=== PATIENT | male | born 1975 | race Caucasian/White ===

== ENCOUNTER 2018-11-15 08:52 | Inpatient (IN) | payer MEDICARE, MEDICAID, SELFPAY ==
[2018-11-15] VITALS (102 sets, daily range): BP systolic 101–165; BP diastolic 49–119; PULSE 54–148; RESP 4–38; TEMP 36.7–37.6; O2SAT 86–96
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
[2018-11-15] MEDS: Normal Saline 1,000 ML 1000 ML IV ×2 (09:35→12:05)
[2018-11-15] MEDS: Albuterol/Ipratropium 3 ML UPD VIAL (09:35)
[2018-11-15] MEDS: Normal Saline Flush 10 ML SYR IVP ×2 (09:35→17:36)
[2018-11-15] MEDS: LORazepam 2 MG/ML VIAL 0.5 MG IVP ×3 (09:41→12:57)
--- NOTE | 2018-11-15 09:56 | DI.RAD_ITS ---
SYMPTOM/DIAGNOSIS: SHAKING, SOB, R/O ACUTE DISEASE AP UPRIGHT CHEST: There are some small basilar densities which would be consistent with scarring or atelectasis. There is an ill-defined density projected over the left lower lobe which could represent a region of scarring. The possibility of an acute pneumonitis not entirely excluded. Note is made of small calcifications in the left lung consistent with old healed granulomatous disease. There is no evidence of a pleural effusion. The heart is top limits of normal in size. SUMMARY: The possibility of a left lower lobe pneumonitis is raised.
[2018-11-15 09:57] LABS: Abs Immature Grans 0.02 k/cumm (0.0-0.09); Absolute Basophil Count 0.06 k/cumm (0.0-0.2); Absolute Eosinophil Count 0.32 k/cumm (0.0-0.7); Absolute Lymphocyte Count 2.72 k/cumm (1.2-3.4); Absolute Neutrophil Count 4.93 k/cumm (1.2-6.7); Basophils % 0.6; Eosinophils % 3.5; HCT 56.8 % (40.0-50.0); HGB 18.7 g/dL (13.5-17.5); Immature Grans % 0.2; Lymphocytes % 29.4; Mean Corp. HGB Concentration 32.9 g/dL (32.0-36.0); Mean Corpuscular Hemoglobin 32.2 pg (27.0-33.0); Mean Corpuscular Volume 97.8 fL (80-95); Mean Platelet Volume 10.9 fL (8.0-11.0); Neutrophils % 53.3; Platelet Count 194 x1000/uL (130-400); RBC 5.81 m/cumm (4.50-6.00); RBC Distribution Width 13.7 % (11.8-14.1); White Blood Cell Count 9.25 k/cumm (4.4-10.8)
[2018-11-15 10:05] LABS: ALT 89 U/L (12-78); AST 40 U/L (15-37); Albumin 3.5 g/dL (3.4-5.0); Alkaline Phosphatase 45 U/L (46-116); Anion Gap 2.6 mmol/L (3-11); BUN 17 mg/dL (7-18); Bilirubin, Total 0.6 mg/dL (0.2-1.0); CO2 35.4 mmol/L (21.0-32.0); CREATININE 0.75 mg/dL (0.70-1.30); Chloride 100 mmol/L (98-107); Glucose 79 mg/dL (70-100); Lipase 109 U/L (73-393); Potassium 4.7 mmol/L (3.5-5.1); Sodium 138 mmol/L (136-145); Total Protein 7.3 g/dL (6.4-8.2)
[2018-11-15 10:11] LABS: Troponin I < 0.05 ng/mL (0.00-0.06)
[2018-11-15 10:13] LABS: ETHANOL BLOOD < 3.0 mg/dL (<3)
[2018-11-15] MEDS: Lisinopril 20 MG TAB PO (11:09)
[2018-11-15] MEDS: Albuterol 2.5 MG/3 ML INH SOLN VIAL (11:09)
[2018-11-15] MEDS: Pregabalin 100 MG CAP 200 MG PO (11:10)
[2018-11-15] MEDS: DULoxetine 30 MG CAP PO (11:10)
[2018-11-15] MEDS: ARIPiprazole 5 MG TAB 2.5 MG PO (11:11)
[2018-11-15] MEDS: LORazepam 2 MG/ML VIAL 1 MG IVP ×2 (12:10→13:35)
[2018-11-15 13:25] LABS: Troponin I < 0.05 ng/mL (0.00-0.06)
[2018-11-15 13:36] LABS: Procalcitonin < 0.1 ng/mL
[2018-11-15] MEDS: AZTREONAM 2,000 MG in Normal Saline 100 ML 200 MG IVPB (14:20)
[2018-11-15] MEDS: Prochlorperazine 10 MG/2 ML VIAL IVP (15:08)
--- NOTE | 2018-11-15 15:11 | HPE_ITS ---
Date of service: 11/15/18 Time of Service: 15:11 Assessment and Plan (1) Alcohol withdrawal: Current visit: Yes Status: Acute with history of alcohol withdrawal seizures. Admit to ICU with CIWA, prn PO/IV ativan and scheduled librium. Provide vitamins. (2) SVT (supraventricular tachycardia): Current visit: Yes Status: Chronic Likely triggered by alcohol withdrawal and/or pulmonary disease. I changed prn albuterol to xopenex. Monitor in ICU. (3) COPD with acute exacerbation: Current visit: Yes Status: Acute Patient recently required intubation at [facility]. He can protect airway at this time. Procalcitonin negaive - empiric antibiotics are being discontinued. The LLL infiltrate is likely a residual finding from his recent HCAP. Provide high dose IV steroids, nebs. Xopenex written in place of albuterol. (4) Chronic respiratory failure with hypoxia: Current visit: Yes Status: Acute I think that the patient is likely at his baseline O2 requirement - O2 is being weaned. (5) Polycythemia: Current visit: Yes Status: Chronic Chronic, having to do with smoking and chronic pulmonary disease. At baseline. Previously evaluated by Hem onc - EDGARDO mutation negative. Follow up as outpatient. (6) HCAP (healthcare-associated pneumonia): Current visit: Yes Status: Ruled-out Procalcitonin negative. Stop antibiotics. (7) Opiate dependence: Current visit: Yes Status: Acute In light of patient's mental status and need to administer benzodiazepines for alcohol withdrawal, will hold methadone. If the patient's mental status permits resumption tomorrow, we will do so. It is felt by myself and the ICU staff that the patient is likely getting excessive doses of methadone, though our judgement could be clouded by the fact that he is also receiving ativan. (8) Discharge planning issues: Current visit: Yes Status: Acute Full code. Has previously required intubation. Interested in inpatient alcohol rehab, which is where he was headed this morning. (9) DVT prophylaxis: Current visit: Yes Status: Acute lovenox History of Present Illness Chief Complaint: I'm withdrawing from alcohol Narrative: 43 year old male with PMHx of alcohol abuse with history of alcohol withdrawal seizures, oxygen dependent COPD (2L), opiate dependence on methadone therapy through [facility], who was brought to [facility] ED today for medical clearance prior to going to [place] for rehab. His last drink was last night, and he normally drinks 1/2 of a gallon of vodka daily. He was found to be hypoxic to 86% on room air, requiring 4L of NC to saturate on mid 90's, per ED records. He does endorse shortness of breath, cough productive of white sputum, wheezing. He was just discharged from [facility] on 11/12/18 after an admission for COPD exacerbation due to interstitial pneumonia, involving intubation. (This is when he qualified for home oxygen.) In the ED, the workup was consistent with recurrent exacerbation of COPD and HCAP. He was initiated on vancomycin/aztr eonam/flagyl as well as nebulizers and steroids. He did require IV ativan for alcohol withdrawal in ED. He was also noted to briefly go into SVT, which was self-limited. We were asked to admit the patient to [facility] ICU for futher care. Review of Systems Review of Systems 12 systems reviewed. Pertinent positives and negatives are as per HPI [facility] Medical History (Updated 11/15/18 @ 18:50 by Ofe Quan MD) Alcohol abuse (Chronic) Alcohol withdrawal seizure (Acute) Asthma (Chronic) Chronic respiratory failure with hypoxia (Acute) COPD (chronic obstructive pulmonary disease) (Chronic) HCAP (healthcare-associated pneumonia) (Ruled-out) Hepatitis C (Chronic) HTN (hypertension) (Chronic) Narcotic abuse (Chronic) Opiate dependence (Acute) Polycythemia (Chronic) Surgical History History of hand surgery (Acute) History of tonsillectomy (Chronic) Hx of BKA (Acute) S/P ORIF (open reduction internal fixation) fracture (Acute) Family History (Updated 11/15/18 @ 18:34 by Ofe Quan MD) Maternal Uncle Hypertension Stroke Diabetes Mother Brain aneurysm Social History Smoking/Tobacco Use Status: Current every day Alcohol Intake: current Alcohol Intake frequency: 3 or more drinks per day Alcohol type: hard liquor Details: drinks at least 1/5 of vodka daily Drug use: Never Substance use type: former substance user and painkillers Details: currently on methadone for past 2.5 years Meds Home Medications Medication Instructions Recorded Confirmed Type ipratropium-albuterol [Combivent 2 puff INHALATION QID 03/24/14 11/15/18 History Respimat Inhaler] lisinopril 20 mg PO DAILY 03/24/14 11/15/18 History pregabalin [Lyrica] 200 mg PO TID 03/24/14 11/15/18 History albuterol sulfate 2 puff INHALATION PRN PRN 05/07/14 11/15/18 History levalbuterol tartrate [Xopenex Hfa] 2 puff INHALATION PRN PRN 07/24/14 11/15/18 History acetaminophen 325 mg PO Q4H PRN PRN 11/15/18 11/15/18 History aripiprazole [Abilify] 2.5 mg PO DAILY 11/15/18 11/15/18 History bisacodyl 10 mg SC DAILY PRN 11/15/18 11/15/18 History buspirone 10 mg PO BID 11/15/18 11/15/18 History duloxetine [Cymbalta] 30 mg PO DAILY 11/15/18 11/15/18 History folic acid 1 mg PO DAILY 11/15/18 11/15/18 History ibuprofen 400 mg PO TID PRN 11/15/18 11/15/18 History ipratropium-albuterol 3 ml INHALATION QID 11/15/18 11/15/18 History lidocaine 1 applic TOPICAL TID 11/15/18 11/15/18 History lorazepam 0.5 mg PO DAILY PRN 11/15/18 11/15/18 History methadone 120 mg PO DAILY 11/15/18 11/15/18 History multivitamin 1 tab PO DAILY 11/15/18 11/15/18 History nicotine 14 mg TRANSDERMAL DIRECTED 11/15/18 11/15/18 History pyridoxine (vitamin B6) [Vitamin 50 mg PO DAILY 11/15/18 11/15/18 History B-6] Allergies Allergy/AdvReac Type Severity Reaction Status Date / Time Penicillins Allergy Severe Anaphylaxsi Unverified 11/15/18 09:42 s Exam Narrative Exam Narrative: General: Middle-aged male who appears older than his stated age, tremulous, sits up in on the ER stretcher with both eyes half clos ed, slurring speech, Neurological: somnolent but arousable, A&Ox3, tremulous Psychiatric: difficult to establish given mental status; under influence Skin: several areas of what looks like chronic erythema RLE stump; otherwise, he appears to have papular rash on his bilateral shoulders HEENT: Atraumatic, normocephalic, eyes are half closed, but he is able to open them fully on command, EOMI, dry MM, no submandibular or cervical lymphadenopathy; no goiter or JVD Cardiovascular: RRR, tachycardic Lungs: wheezing on expiration B Gastrointestinal: abdomen is soft, nontender, nondistended Extremities: s/p R BKA; stump well healed, tremulous; LLE with trace pedal pulse, no edema. Results Imaging Additional studies: CXR: The possibility of a left lower lobe pneumonitis is raised. EK:55 HR 144, SVT, no acute ischemia EKG 11: 40 HR 89, NSR, no acute ischemia Tele strip: SVT, HR 151 Labs : 11/15/18 09:40 11/15/18 09:40 Laboratory Results - last 24 hr 11/15/18 11/15/18 11/15/18 09:40 09:40 09:40 WBC 9.25 RBC 5.81 Hgb 18.7 H Hct 56.8 H MCV 97.8 H MCH 32.2 MCHC 32.9 RDW 13.7 Plt Count 194 MPV 10.9 Immature Gran % 0.2 Neutrophils % 53.3 Lymphocytes % 29.4 Monocytes % 13.0 Eosinophils % 3.5 Basophils % 0.6 Absolute Neutrophils 4.93 Absolute Lymphocytes 2.72 Absolute Monocytes 1.20 H Absolute Eosinophils 0.32 Absolute Basophils 0.06 Sodium 138 Potassium 4.7 Chloride 100 Carbon Dioxide 35.4 H Anion Gap 2.6 L BUN 17 Creatinine 0.75 Estimated GFR/1.73 m2 >= 60.00 Glucose 79 Lactate Calcium 9.0 Magnesium 2.0 Total Bilirubin 0.6 AST 40 H ALT 89 H Alkaline Phosphatase 45 L Troponin I < 0.05 Total Protein 7.3 Albumin 3.5 Lipase 109 Procalcitonin Ethyl Alcohol < 3.0 11/15/18 11/15/18 11/15/18 09:40 12:00 13:12 WBC RBC Hgb Hct MCV MCH MCHC RDW Plt Count MPV Immature Gran % Neutrophils % Lymphocytes % Monocytes % Eosinophils % Basophils % Absolute Neutrophils Absolute Lymphocytes Absolute Monocytes Absolute Eosinophils Absolute Basophils Sodium Potassium Chloride Carbon Dioxide Anion Gap BUN Creatinine Estimated GFR/1.73 m2 Glucose Lactate 1.0 Calcium Magnesium Total Bilirubin AST ALT Alkaline Phosphatase Troponin I < 0.05 Total Protein Albumin Lipase Procalcitonin < 0.1 Ethyl Alcohol Last Vital Signs Temp 37.3 C 11/15/18 08:55 Pulse 86 11/15/18 11:46 Resp 9 L 11/15/18 13:20 BP 122/57 L 11/15/18 11:46 Pulse Ox 94 L 11/15/18 12:50
[2018-11-15] MEDS: Enoxaparin 40 MG/0.4 ML SYR SC (16:52)
[2018-11-15] MEDS: chlordiazePOXIDE 25 MG CAP PO (16:53)
[2018-11-15] MEDS: methylPREDNISolone SUCC 125 MG VIAL 80 MG IVP (17:36)
[2018-11-15] MEDS: THIAMINE 100 MG in Normal Saline 100 ML 200 MG IVPB (17:41)
[2018-11-15] MEDS: metroNIDAZOLE 500 MG/100 ML BAG 100 MG IVPB (17:41)
[2018-11-15] MEDS: Normal Saline 1,000 ML 150 ML IV (17:41)
[2018-11-15] MEDS: Ibuprofen 400 MG TAB PO (19:30)
[2018-11-15] MEDS: Nicotine 21 MG/24 HR PATCH TD (19:31)
[2018-11-15] MEDS: guaiFENesin 600 MG TABCR PO (19:31)
[2018-11-15] MEDS: Albuterol/Ipratropium 3 ML UPD VIAL UPD (19:35)
[2018-11-15] MEDS: LORazepam 1 MG TAB PO/SL ×2 (19:58→22:40)
[2018-11-15] MEDS: busPIRone 5 MG TAB 10 MG PO (22:15)
[2018-11-15] MEDS: Budesonide/Formoterol 160/4.5 6 GM 60 PUFF INH IH (22:15)
[2018-11-16] VITALS (93 sets, daily range): BP systolic 86–167; BP diastolic 45–118; PULSE 51–109; RESP 2–27; TEMP 36.5–37.6; O2SAT 89–97
[2018-11-16] MEDS: Normal Saline 1,000 ML 150 ML IV ×3 (00:57→16:19)
[2018-11-16] MEDS: chlordiazePOXIDE 25 MG CAP PO ×3 (00:57→10:45)
[2018-11-16] MEDS: Albuterol/Ipratropium 3 ML UPD VIAL UPD (01:04)
[2018-11-16] MEDS: Ibuprofen 400 MG TAB PO (01:46)
[2018-11-16] MEDS: LORazepam 1 MG TAB PO/SL (04:16)
[2018-11-16] MEDS: methylPREDNISolone SUCC 125 MG VIAL 80 MG IVP (04:18)
--- NOTE | 2018-11-16 04:38 | NUR.NOTE ---
pt awakened, pulled out one IV, took off monitor and gown. washed up completely whle OOB. Voided 800 cc clear dark neil urine. Fluids switched to other right arm IV. Given 2 mg ativan po per CIWA scale. Ate more pudding and eugene crackers. more calm now.Nursing Note:
[2018-11-16 07:38] LABS: Abs Immature Grans 0.01 k/cumm (0.0-0.09); Absolute Basophil Count 0.01 k/cumm (0.0-0.2); Absolute Eosinophil Count 0.01 k/cumm (0.0-0.7); Absolute Lymphocyte Count 0.48 k/cumm (1.2-3.4); Absolute Monocyte Count 0.27 k/cumm (0.11-0.7); Absolute Neutrophil Count 4.38 k/cumm (1.2-6.7); Basophils % 0.2; Eosinophils % 0.2; HCT 53.7 % (40.0-50.0); HGB 17.8 g/dL (13.5-17.5); Immature Grans % 0.2; Lymphocytes % 9.3; Mean Corp. HGB Concentration 33.1 g/dL (32.0-36.0); Mean Corpuscular Volume 96.6 fL (80-95); Mean Platelet Volume 11.4 fL (8.0-11.0); Monocytes % 5.2; Neutrophils % 84.9; Platelet Count 181 x1000/uL (130-400); RBC 5.56 m/cumm (4.50-6.00); RBC Distribution Width 13.2 % (11.8-14.1); White Blood Cell Count 5.16 k/cumm (4.4-10.8)
[2018-11-16 07:55] LABS: Anion Gap 10.1 mmol/L (3-11); BUN 12 mg/dL (7-18); CO2 27.9 mmol/L (21.0-32.0); CREATININE 0.53 mg/dL (0.70-1.30); Calcium 8.6 mg/dL (8.5-10.1); Chloride 104 mmol/L (98-107); Glucose 151 mg/dL (70-100); Magnesium 2.1 mg/dL (1.8-2.4); Potassium 4.6 mmol/L (3.5-5.1); Sodium 142 mmol/L (136-145)
[2018-11-16] MEDS: LORazepam 2 MG/ML VIAL IVP ×5 (07:55→13:37)
[2018-11-16] MEDS: Budesonide/Formoterol 160/4.5 6 GM 60 PUFF INH IH (07:57)
--- NOTE | 2018-11-16 07:57 | PDOC.CMIN ---
- If Service Date Differs Date of service: 11/16/18 Time of Service: 07:58 Care Management Initial Assess REASON FOR HOSPITALIZATION:: Alcohol withdrawal PAST MEDICAL HISTORY/PAST SURGICAL HISTORY:: Medical History: Alcohol abuse (Chronic). Alcohol withdrawal seizure (Acute). Asthma (Chronic). Chronic respiratory failure with hypoxia (Acute). COPD (chronic obstructive pulmonary disease) (Chronic). HCAP (healthcare-associated pneumonia) (Ruled-out). Hepatitis C (Chronic). HTN (hypertension) (Chronic). Narcotic abuse (Chronic). Opiate dependence (Acute). Polycythemia (Chronic). Surgical History . History of hand surgery (Acute). History of tonsillectomy (Chronic). Hx of BKA (Acute). S/P ORIF (open reduction internal fixation) fracture (Acute) PREVIOUS FUNCTIONAL STATUS/SOCIAL/FAMILY SUPPORTS:: Edd states he lives in an apartment with 2 friends in [facility], although information from his medical record lists an address in [place]. He is currently unemployed. Edd is unmarried. He has one child, a daughter named Tita, who is 21 years old. Edd is independent with ADLs. CURRENT FUNCTIONAL STATUS:: Edd was lying in bed during CM visit. He did not maintain eye contact and was evasive in his responses. He states that he is going to stay with his sister in [place] when he is discharged. ADVANCE DIRECTIVES:: none on file Has patient been provided with information about the portal?: No Did the patient sign up for the portal?: No CODE STATUS:: Full Code INSURANCE COVERAGE / FINANCIAL ISSUES:: Medicare. Medicaid CURRENT HOME/COMMUNITY SERVICES/EQUIPMENT:: none PRIMARY CARE PHYSICIAN:: Marge Leo POTENTIAL DISCHARGE NEEDS:: Follow up with PCP and discharge plan of care PATIENT/FAMILY EDUCATION NEEDS:: Discharge plan, limitations, follow up plan, Ask Me Three. ANTICIPATED BARRIERS TO DISCHARGE:: none TRANSPORTATION:: via private vehicle with friends when ready PLAN:: Edd is in the ICU being treated for acute alcohol withdrawal. His CIWA scores have been as high as 28 today. He likely would benefit from substance abuse treatment but disposition is unclear at the moment. CM will continue to support patient, family and the discharge process.
[2018-11-16] MEDS: Multivitamin TAB 1 TAB PO (08:02)
[2018-11-16] MEDS: Pantoprazole 40 MG VIAL IVP (08:02)
[2018-11-16] MEDS: ARIPiprazole 5 MG TAB 2.5 MG PO (08:02)
[2018-11-16] MEDS: Thiamine 100 MG TAB PO (08:03)
[2018-11-16] MEDS: Lisinopril 20 MG TAB PO (08:04)
[2018-11-16] MEDS: DULoxetine 30 MG CAP PO (08:04)
[2018-11-16] MEDS: Folic Acid 1 MG TAB PO (08:04)
[2018-11-16] MEDS: guaiFENesin 600 MG TABCR PO (08:04)
[2018-11-16 08:19] LABS: Vancomycin, Trough 2.1 ug/mL (10.0-20.0)
--- NOTE | 2018-11-16 08:19 | W.PM.PROGNOT ---
Date of Service Date of service: 11/16/18 Time of Service: : Assessment and Plan (1) Alcohol withdrawal: Current visit: Yes Status: Acute with history of alcohol withdrawal seizures. Continue to require ICU. Continue CIWA, prn PO/IV ativan. Increased scheduled librium. Provide vitamins. (2) SVT (supraventricular tachycardia): Current visit: Yes Status: Resolved Obtain EKG this morning as the patient's tele is showing new U waves. Likely triggered by alcohol withdrawal and/or pulmonary disease. Prn xopenex. Monitor in ICU. (3) COPD with acute exacerbation: Current visit: Yes Status: Resolved Based on my exam today, the patient's bronchospasm has completely resolved. He states he is at baseline. Will d/c steroids and duonebs. Transition to home combivent. Xopenex in place albuterol due to SVT yesterday. Procalcitonin negaive - empiric antibiotics are being discontinued. The LLL infiltrate is likely a residual finding from his recent HCAP. (4) Chronic respiratory failure with hypoxia: Current visit: Yes Status: Acute I think that the patient is likely at his baseline O2 requirement - O2 is being weaned. (5) Polycythemia: Current visit: Yes Status: Chronic Chronic, having to do with smoking and chronic pulmonary disease. At baseline. Previously evaluated by Hem onc - EDGARDO mutation negative. Follow up as outpatient. (6) HCAP (healthcare-associated pneumonia): Current visit: Yes Status: Ruled-out Procalcitonin negative. Stop antibiotics. (7) Opiate dependence: Current visit: Yes Status: Acute I have resumed methadone but at a lower dose - due to fears of interactions of the benzos with methadone and patient's mental status when I saw him yesterday. We will discuss the patient's methadone dosing with MIGUEL ANGEL. (8) Discharge planning issues: Current visit: Yes Status: Acute Full code. Continues to require ICU. Has previously required intubation. Interested in inpatient alcohol rehab, which is where he was headed this morning. (9) DVT prophylaxis: Current visit: Yes Status: Acute lovenox Subjective Interval history since last seen: Denies dizziness, chest pain, states his shortness of breath is at his baseline. Denies cough. Denies nausea/vomiting. Agitated/restless. CIWA 17 this morning; last night it was 8. 3 mg of IV ativan given this am. Still quite agitated even despite librium, methadone, ativan this am. Shaky, sweaty, restless. To me, he keeps talking about how he is going to beat up a man in the nursing station - there is no man standing there that I can see. 93% on 2L. No SVT - remains in NSR. Nursing notes a possible U wave on his telemonitoring. Exam Narrative Exam Narrative: General: Middle-aged male who appears older than his stated age, more awake today, also more restless/agitated, I think he might be hallucinating; tremulous HEENT: Atraumatic, normocephalic, EOMI, MMM Cardiovascular: RRR, no m/r/g Lungs: Diminished breath sounds B - no wheezing heard. Gastrointestinal: abdomen is soft, nontender, nondistended Extremities: s/p R BKA; stump well healed, tremulous; LLE with trace pedal pulse, no edema. Objective Objective Clinical Data: Abnormal lab results 11/15/18 11/15/18 11/16/18 Range/Units 09:40 09:40 06:10 Hgb 18.7 H (13.5-17.5) g/dL Hct 56.8 H (40.0-50.0) % MCV 97.8 H (80-95) fL MPV (8.0-11.0) fL Absolute Lymphocytes (1.2-3.4) k/cumm Absolute Monocytes 1.20 H (0.11-0.7) k/cumm Carbon Dioxide 35.4 H (21.0-32.0) mmol/L Anion Gap 2.6 L (3-11) mmol/L Creatinine 0.53 L (0.70-1.30) mg/dL Glucose 151 H (70-100) mg/dL AST 40 H (15-37) U/L ALT 89 H (12-78) U/L Alkaline Phosphatase 45 L (46-116) U/L 11/16/18 Range/Units 06:10 Hgb 17.8 H (13.5-17.5) g/dL Hct 53.7 H (40.0-50.0) % MCV 96.6 H (80-95) fL MPV 11.4 H (8.0-11.0) fL Absolute Lymphocytes 0.48 L (1.2-3.4) k/cumm Absolute Monocytes (0.11-0.7) k/cumm Carbon Dioxide (21.0-32.0) mmol/L Anion Gap (3-11) mmol/L Creatinine (0.70-1.30) mg/dL Glucose (70-100) mg/dL AST (15-37) U/L ALT (12-78) U/L Alkaline Phosphatase (46-116) U/L Vital Signs Temperature 37.5 C 11/16/18 04:45 Temperature Source Temporal Artery Scan 11/16/18 04:45 Pulse 78 11/16/18 04:45 Pulse 69 11/15/18 22:50 Respiratory Rate 14 11/16/18 04:45 Respiratory Effort 11/16/18 04:45 Respiratory Depth Normal 11/16/18 04:45 Respiratory Pattern Normal 11/16/18 04:45 Blood Pressure 146/86 H 11/16/18 04:45 Blood Pressure Mean 106 11/16/18 04:45 Blood Pressure Position Sitting 11/16/18 01:13 Pulse Oximetry 91 L 11/16/18 07:57 Oxygen Delivery Method Room Air 11/16/18 07:57 Oxygen Flow Rate 0 11/16/18 07:57 Fraction of Inspired Oxygen (FIO2) 2 11/15/18 18:10 Pain Level 9 11/15/18 19:30 Comment hx COPD - home oxygen prn - does not currently have a tank with him 11/15/18 08:55 Intake & Output 11/15/18 11/15/18 11/16/18 11:59 23:59 11:59 Intake Total 1000 / 2798.5 1798.5 / 2798.5 120 / 120 Output Total 2975 / 2975 1300 / 1300 Balance 1000 / -176.5 -1176.5 / -176.5 -1180 / -1180 Weight 76.4 kg 76.4 kg 78.4 kg Intake: IV 1000 / 2558.5 1558.5 / 2558.5 0 / 0 Oral 240 / 240 120 / 120 Output: Urine 2975 / 2975 1300 / 1300 Other: Urine Color Yellow Dark Alix Urine Appearance Clear Clear Urine Odor None Comment Pt states, i have a hard time peeing sometimes Voiding Methods Urinal Urinal Laboratory Results WBC 5.16 k/cumm (4.4-10.8) D 11/16/18 06:10 RBC 5.56 m/cumm (4.50-6.00) 11/16/18 06:10 Hgb 17.8 g/dL (13.5-17.5) H 11/16/18 06:10 Hct 53.7 % (40.0-50.0) H 11/16/18 06:10 MCV 96.6 fL (80-95) H 11/16/18 06:10 MCH 32.0 pg (27.0-33.0) 11/16/18 06:10 MCHC 33.1 g/dL (32.0-36.0) 11/16/18 06:10 RDW 13.2 % (11.8-14.1) 11/16/18 06:10 Plt Count 181 x1000/uL (130-400) 11/16/18 06:10 MPV 11.4 fL (8.0-11.0) H 11/16/18 06:10 Immature Gran % 0.2 11/16/18 06:10 84.9 11/16/18 06:10 9.3 11/16/18 06:10 5.2 11/16/18 06:10 0.2 11/16/18 06:10 0.2 11/16/18 06:10 Absolute Neutrophils 4.38 k/cumm (1.2-6.7) 11/16/18 06:10 Absolute Lymphocytes 0.48 k/cumm (1.2-3.4) L 11/16/18 06:10 Absolute Monocytes 0.27 k/cumm (0.11-0.7) 11/16/18 06:10 Absolute Eosinophils 0.01 k/cumm (0.0-0.7) 11/16/18 06:10 Absolute Basophils 0.01 k/cumm (0.0-0.2) 11/16/18 06:10 Sodium 142 mmol/L (136-145) 11/16/18 06:10 Potassium 4.6 mmol/L (3.5-5.1) 11/16/18 06:10 Chloride 104 mmol/L (98-107) 11/16/18 06:10 Carbon Dioxide 27.9 mmol/L (21.0-32.0) 11/16/18 06:10 10.1 mmol/L (3-11) 11/16/18 06:10 BUN 12 mg/dL (7-18) 11/16/18 06:10 0.53 mg/dL (0.70-1.30) L 11/16/18 06:10 >= 60.00 (mL/min/1.73m2) 11/16/18 06:10 Glucose 151 mg/dL (70-100) H 11/16/18 06:10 1.0 mmol/l (0.6-1.4) 11/15/18 13:12 Calcium 8.6 mg/dL (8.5-10.1) 11/16/18 06:10 Magnesium 2.1 mg/dL (1.8-2.4) 11/16/18 06:10 0.6 mg/dL (0.2-1.0) 11/15/18 09:40 AST 40 U/L (15-37) H 11/15/18 09:40 ALT 89 U/L (12-78) H 11/15/18 09:40 45 U/L (46-116) L 11/15/18 09:40 < 0.05 ng/mL (0.00-0.06) 11/15/18 12:00 7.3 g/dL (6.4-8.2) 11/15/18 09:40 3.5 g/dL (3.4-5.0) 11/15/18 09:40 109 U/L (73-393) 11/15/18 09:40 < 0.1 ng/mL 11/15/18 09:40 Ethyl Alcohol < 3.0 mg/dL (<3) 11/15/18 09:40
[2018-11-16 08:46] LABS: Procalcitonin < 0.1 ng/mL
[2018-11-16] MEDS: Nicotine 21 MG/24 HR PATCH TD (10:00)
[2018-11-16] MEDS: busPIRone 5 MG TAB 10 MG PO ×2 (10:01→23:20)
[2018-11-16] MEDS: Methadone Liquid 10 MG/ML 90 MG PO (10:02)
[2018-11-16] MEDS: Pregabalin 100 MG CAP PO (10:54)
[2018-11-16] MEDS: LORazepam 2 MG/ML VIAL 1 MG IVP (11:22)
--- NOTE | 2018-11-16 11:29 | PHARADMIT ---
Admission Pharmacy Clinical Review ACUTE EXACERBATION OF COPD, HYPOXIA, ETOH WITHDRAWAL Code Status Full Code Current Weight Wgt-78.4 kg Renally Cleared and Narrow Therapeutic Index Meds CrCl~ 116 mL/min Meds-OK QTc Value / Action Taken QTc-501 (Abilify, Protonix, Seroquel) BP Control, Fever BP- 160/85 Tmax- 36.8C Electrolytes reviewed Na- 142 K+4.6 Mag-2.1 DVT Prophylaxis Lovenox Opiate Usage / Scheduled Bowel Regimen Ordered Yes Yes Plt/SCr for Heparin / Enoxaparin Plts- 181 SCr- 0.53 INR for Warfarin na H/H stable, WBC/Bands H&H- 17.8/53.7 WBC- 5.16 Antibiotic appropriateness Not Pneumonia- ABX dc'd Cultures and Sensitivities Blood-pending, Sputum-neg Surgical ABX d/c within 24 hr NA DM control / Insulin Dosing BG-151 Heart Failure (Check EF%) (BEATRIZ's, B-Block, Diuretics) Lisinopril, IV to PO Switch No Home Meds Reviewed Yes Home Meds Not Ordered Ordered Comments On GLEN Zavala (Librium& Ativan) On Methadone PatOwn Lidocaine 5% Cream
[2018-11-16] MEDS: LORazepam 2 MG/ML VIAL IM (12:30)
[2018-11-16] MEDS: chlordiazePOXIDE 25 MG CAP (12:46)
[2018-11-16] MEDS: Pregabalin 100 MG CAP 200 MG PO (14:09)
--- NOTE | 2018-11-16 14:26 | SUR.PHASEI ---
Addendum entered by Patsy Baird 11/16/18 15:25: Pt became increasingly agitated again. Took pillow, ripped it, shoved his feet in, and pulled out the stuffing. Notified Avelina again around 1450. Gave 4 mg IV ativan now. Then started ativan IV @ 4 mg/hr. Original Note: Pt's CIWA score at 0800 was 17 and was given 3 mg IV ativan (per PRN order) CIWA score at 1000 was 22 and was given 4 mg IV ativan (per PRN order) CIWA scores were elevated due to sweating, tremors, QUAN, agitation, and anxiety. Pt remained agitated after the 4 mg IV ativan was given. Avelina was on the unit and wanted him to have another 1 mg IV ativan dose (was given at 1122) CIWA score at 1205 was 22 and was given 4 mg IV ativan (per PRN order) - Avelina was still on the unit. Pt remained agitated, was trying to get up and out of bed. Pt's CIWA score was elevated now due to tremors, headache, sweating, hallunicincations, agitation, anxiety, disorientation. Avelina ordered a one time does of 2 mg IM ativan - pt recieved @ 1230. CIWA score @ 1254 was 28. Notified Avelina and was given a verbal order to give another 4 mg IV ativan per PRN order. CIWA score at 1337 was a 21. Notified Avelina again of the elevated CIWA score, was given a verbal order to give 4 mg IV ativan. The patient was on telemetry up until 1156. Pt ripped on telemetry multiple times, since 1156 we have been unable to keep patient on telemetry due to his agitation and pulling everything off. Pt removed IV around 1230. Two new IVs have been placed since then. We have been able to do spot O2 and BP checks with assistance. Has required 2-4 people in the room at all times since 1230. Avelina ordered an ativan drip after the last 4 mg IV ativan was given. Awaiting bag from pharmacy to begin. Continuing to monitor CIWA scores, vitals, patient safety. Sitters x2 in the room.
[2018-11-16] MEDS: LORazepam 2 MG/ML VIAL 4 MG IVP (15:07)
[2018-11-16] MEDS: Levalbuterol 1.25 MG/3 ML UPD VIAL UPD (18:07)
[2018-11-16] MEDS: Propofol 200 MG/20 ML VIAL IVP (18:15)
[2018-11-16] MEDS: Ketamine 500 MG/10 ML VIAL IV (18:15)
[2018-11-16] MEDS: Succinylcholine 100 MG/5 ML SYR 180 MG IVP (18:20)
[2018-11-16] MEDS: PROPOFOL 1,000 MG/100 ML BTL 23.52 MG IVPB (18:22)
--- NOTE | 2018-11-16 18:53 | PDOC.ANES ---
Date of service: 11/16/18 Time of Service: 18:10 Anesthesia Note Report Anesthesia Note: Requested to intubate due to escalating Ativan infusion for alcohol withdrawal. Arrived to ICU to find pt without monitors on due to pulling them off, ativan infusion going, and oriented to seemingly only to self. Constant pulling off of monitors, FM O2, while trying to get out of bed. History reviewed, meds and equipment readied, and IV patency checked. Ketamine 100 mg given with minimal effect and followed up with another 100 mg, with some effect. Pt still sitting up fighting. IV noted to be not working. Additional 300 mg IM given into right deltoid with good effect. Preoxygenation continued via nebulizer mask/albuterol and nasal cannula. Better IV access obtained, 200 mg propofol and 180 mg of succinylcholine given. A mac 3, grade 1 view was appreciated and a # 8.0 ETT was placed without difficulty, and secured at 23 cm at the teeth. Post intubation sedation of a propofol gtt was started at 100 mcg/kg/min and down titrated to 50 mcg/kg/min. He was placed on mechanical ventilation by the respiratory therapist. CXR ordered by hospitalist. Med totals: Ketamine 500 mg IV/IM Porpofol 200 mg IV Succinlycholine 180 mg IV
--- NOTE | 2018-11-16 18:54 | DI.RAD_ITS ---
SYMPTOM/DIAGNOSIS: POST INTUBATION, CONFIRM TUBE POSITION CHEST X-RAY: Portable AP view from 11/16/18 at 6:51 p.m. Comparison with the examination from the day prior. Heart size and pulmonary vasculature appear stable. There are bilateral predominantly basilar infiltrates. They appear to have progressed particularly in the left lung base. No pneumothorax or pleural effusion is seen. An endotracheal tube has been placed. The tip of the catheter is seen just beyond the thoracic inlet. This is approximately 7 cm above the josh. IMPRESSION: 1. Endotracheal tube placement. The tip is seen approximately 7 cm above the josh. 2. Worsening bilateral infiltrates particularly in the left lung base. This may represent atelectasis or pneumonia. Aspiration should be considered.
--- NOTE | 2018-11-16 18:57 | W.PM.PROGNOT ---
Date of Service Date of service: 11/16/18 Time of Service: 18:57 Subjective Interval history since last seen: Patient was placed on ativan drip as he was requiring progressively higher doses of IV ativan. Even with the ativan drip going at 16 mg/hr, he was still scoring in the 50's on CIWA. Decision was made to switch to IV propfol and intubate for airway protection. Anesthesia was called for intubation - the patient required very high doses of ketamine and propofol; intubated and stable at this time. CXR is pending. ABG ordered, pending. Total critical care time 60 minutes. Objective Objective Clinical Data: Abnormal lab results 11/16/18 11/16/18 11/16/18 Range/Units 06:10 06:10 06:10 Hgb 17.8 H (13.5-17.5) g/dL Hct 53.7 H (40.0-50.0) % MCV 96.6 H (80-95) fL MPV 11.4 H (8.0-11.0) fL Absolute Lymphocytes 0.48 L (1.2-3.4) k/cumm Creatinine 0.53 L (0.70-1.30) mg/dL Glucose 151 H (70-100) mg/dL Vancomycin Trough 2.1 L (10.0-20.0) ug/mL Vital Signs Temperature 36.8 C 11/16/18 09:20 Temperature Source Temporal Artery Scan 11/16/18 09:20 Pulse 97 H 11/16/18 16:00 Pulse 72 11/16/18 16:10 Respiratory Rate 17 11/16/18 16:10 Respiratory Effort 11/16/18 15:43 Respiratory Depth Normal 11/16/18 08:00 Respiratory Pattern Normal 11/16/18 08:00 Blood Pressure 159/71 H 11/16/18 16:00 Blood Pressure Mean 92 11/16/18 16:00 Blood Pressure Position Sitting 11/16/18 01:13 Pulse Oximetry 91 L 11/16/18 16:10 Oxygen Delivery Method Room Air 11/16/18 14:33 Oxygen Flow Rate 0 11/16/18 14:33 Fraction of Inspired Oxygen (FIO2) 2 11/15/18 18:10 Pain Level 0 11/16/18 08:00 Comment hx COPD - home oxygen prn - does not currently have a tank with him 11/15/18 08:55 Intake & Output 11/15/18 11/16/18 11/16/18 23:59 11:59 23:59 Intake Total 1798.5 / 2798.5 1360 / 2096.767 736.767 / 2096.767 Output Total 2975 / 2975 1800 / 1800 Balance -1176.5 / -176.5 -440 / 296.767 736.767 / 296.767 Weight 76.4 kg 78.4 kg Intake: IV 1558.5 / 2558.5 1000 / 1736.767 736.767 / 1736.767 Oral 240 / 240 360 / 360 Output: Urine 2975 / 2975 1800 / 1800 Other: Urine Color Yellow Light Alix Urine Appearance Clear Clear Urine Odor None Comment Pt states, i have a hard time peeing sometimes Unable to assess lung sounds due to patient agitation/withrdrawl Voiding Methods Urinal Urinal Laboratory Results WBC 5.16 k/cumm (4.4-10.8) D 11/16/18 06:10 RBC 5.56 m/cumm (4.50-6.00) 11/16/18 06:10 Hgb 17.8 g/dL (13.5-17.5) H 11/16/18 06:10 Hct 53.7 % (40.0-50.0) H 11/16/18 06:10 MCV 96.6 fL (80-95) H 11/16/18 06:10 MCH 32.0 pg (27.0-33.0) 11/16/18 06:10 MCHC 33.1 g/dL (32.0-36.0) 11/16/18 06:10 RDW 13.2 % (11.8-14.1) 11/16/18 06:10 Plt Count 181 x1000/uL (130-400) 11/16/18 06:10 MPV 11.4 fL (8.0-11.0) H 11/16/18 06:10 Immature Gran % 0.2 11/16/18 06:10 84.9 11/16/18 06:10 9.3 11/16/18 06:10 5.2 11/16/18 06:10 0.2 11/16/18 06:10 0.2 11/16/18 06:10 Absolute Neutrophils 4.38 k/cumm (1.2-6.7) 11/16/18 06:10 Absolute Lymphocytes 0.48 k/cumm (1.2-3.4) L 11/16/18 06:10 Absolute Monocytes 0.27 k/cumm (0.11-0.7) 11/16/18 06:10 Absolute Eosinophils 0.01 k/cumm (0.0-0.7) 11/16/18 06:10 Absolute Basophils 0.01 k/cumm (0.0-0.2) 11/16/18 06:10 Sodium 142 mmol/L (136-145) 11/16/18 06:10 Potassium 4.6 mmol/L (3.5-5.1) 11/16/18 06:10 Chloride 104 mmol/L (98-107) 11/16/18 06:10 Carbon Dioxide 27.9 mmol/L (21.0-32.0) 11/16/18 06:10 10.1 mmol/L (3-11) 11/16/18 06:10 BUN 12 mg/dL (7-18) 11/16/18 06:10 0.53 mg/dL (0.70-1.30) L 11/16/18 06:10 >= 60.00 (mL/min/1.73m2) 11/16/18 06:10 Glucose 151 mg/dL (70-100) H 11/16/18 06:10 1.0 mmol/l (0.6-1.4) 11/15/18 13:12 Calcium 8.6 mg/dL (8.5-10.1) 11/16/18 06:10 Magnesium 2.1 mg/dL (1.8-2.4) 11/16/18 06:10 0.6 mg/dL (0.2-1.0) 11/15/18 09:40 AST 40 U/L (15-37) H 11/15/18 09:40 ALT 89 U/L (12-78) H 11/15/18 09:40 45 U/L (46-116) L 11/15/18 09:40 < 0.05 ng/mL (0.00-0.06) 11/15/18 12:00 7.3 g/dL (6.4-8.2) 11/15/18 09:40 3.5 g/dL (3.4-5.0) 11/15/18 09:40 109 U/L (73-393) 11/15/18 09:40 < 0.1 ng/mL 11/16/18 06:10 Vancomycin Trough 2.1 ug/mL (10.0-20.0) L 11/16/18 06:10 Ethyl Alcohol < 3.0 mg/dL (<3) 11/15/18 09:40
--- NOTE | 2018-11-16 19:06 | DI.VRAD_ITS ---
EXAM: XR Chest, 1 View EXAM DATE/TIME: 11/16/2018 19:00 CLINICAL HISTORY: 43 years old, male; Device placement; Ett placement (vent status) TECHNIQUE: Imaging protocol: XR of the chest, 1 view. COMPARISON: CR XR PORTABLE CHEST AP 11/15/2018 09:52 FINDINGS: Tubes, catheters and devices: Endotracheal tube terminates 7 cm above the josh. Lungs: Slight increase in opacities left greater than right lung base. Pleural space: No significant pleural effusion. No pneumothorax. Heart/Mediastinum: No cardiomegaly. Bones/joints: No acute fracture. IMPRESSION: 1. Endotracheal tube terminates 7 cm above the josh. 2. Slight increase in opacities left greater than right lung base. It reflect atelectasis, pneumonia and/or aspiration. Dictated and Authenticated by: Jamee Ferguson MD. Ordering:ISHMAEL Thakur MD
[2018-11-16 19:31] LABS: BE 1.9 mmol/L (-3-3); HCO3 29 mmol/L (22-28); pH 7.28 (7.35-7.45); pO2 60 mmHg (83-108); sO2 87 % (94-98); tCO2 25 mmol/L (22-29)
[2018-11-16 19:34] LABS: Site Right Radial; pCO2 62 mmHg (34-47)
[2018-11-16] MEDS: PROPOFOL 1,000 MG/100 ML BTL 25.872 MG IVPB (20:50)
[2018-11-16 20:51] LABS: BE 3.8 mmol/L (-3-3); HCO3 30 mmol/L (22-28); pCO2 55 mmHg (34-47); pH 7.34 (7.35-7.45); pO2 61 mmHg (83-108); sO2 89 % (94-98); tCO2 26 mmol/L (22-29)
[2018-11-16 20:54] LABS: Site Right Radial
[2018-11-16] MEDS: Normal Saline Flush 10 ML SYR IVP (21:00)
--- NOTE | 2018-11-16 21:31 | DI.RAD_ITS ---
SYMPTOM/DIAGNOSIS: NG PLACEMENT CHEST X-RAY: Single frontal view from 11/16/18 at 9:35 p.m. Comparison with examination from earlier in the day. Heart size and pulmonary vasculature appear stable. The endotracheal tube appears to have been advanced. The tip is now seen approximately 4 cm. from the josh. There has been interval placement of a nasogastric tube. The tip of the tube is seen at the gastroesophageal junction. There are again seen bilateral basilar infiltrates which appear stable. No pneumothorax or definite pleural effusion is seen. IMPRESSION: 1. Advancement of endotracheal tube which the tip now lies approximately 4 cm from the josh in good position. 2. Placement of a nasogastric tube. The tip terminates at the gastroesophageal junction. 3. Stable bilateral pulmonary infiltrates.
--- NOTE | 2018-11-16 21:59 | DI.VRAD_ITS ---
EXAM: XR Chest, 1 View EXAM DATE/TIME: 11/16/2018 21:32 CLINICAL HISTORY: 43 years old, male; Device placement; Ng tube; Patient HX: New ng placement TECHNIQUE: Imaging protocol: XR of the chest, 1 view. COMPARISON: SC XR PORTABLE CHEST AP POST LINE 11/16/2018 18:50 FINDINGS: Tubes, catheters and devices: The endotracheal tube has been advanced, now terminating approximately 4 cm above the josh. A nasogastric tube terminates in the region of the gastroesophageal junction. Lungs: Patchy opacities in the left greater than right lung base persist. Pleural space: A trace right effusion is difficult to exclude. No pneumothorax. Heart/Mediastinum: No cardiomegaly. Bones/joints: No acute fracture. IMPRESSION: 1. The endotracheal tube has been advanced, now terminating approximately 4 cm above the josh. 2. A nasogastric tube terminates in the region of the gastroesophageal junction. Recommend advancement by 5 cm. 3. Otherwise no significant change. Dictated and Authenticated by: Jamee Ferguson MD. Ordering:MICHELLE Valero MD
[2018-11-16] MEDS: Pregabalin 100 MG CAP 200 MG NG (23:20)
[2018-11-16] MEDS: QUEtiapine 300 MG TAB NG (23:21)
[2018-11-16] MEDS: Enoxaparin 40 MG/0.4 ML SYR SC (23:30)
[2018-11-16] MEDS: PROPOFOL 1,000 MG/100 ML BTL 35.28 MG IVPB (23:50)
[2018-11-17] VITALS (35 sets, daily range): BP systolic 109–135; BP diastolic 63–81; PULSE 44–58; RESP 14–18; TEMP 35.3–36.8; O2SAT 92–97
[2018-11-17] MEDS: Normal Saline 1,000 ML 150 ML IV ×3 (01:41→15:33)
[2018-11-17] MEDS: PROPOFOL 1,000 MG/100 ML BTL 35.28 MG IVPB ×3 (02:39→08:59)
[2018-11-17] MEDS: Normal Saline Flush 10 ML SYR IVP ×2 (05:57→08:34)
[2018-11-17 07:27] LABS: Abs Immature Grans 0.01 k/cumm (0.0-0.09); Absolute Basophil Count 0.03 k/cumm (0.0-0.2); Absolute Lymphocyte Count 2.86 k/cumm (1.2-3.4); Absolute Neutrophil Count 3.53 k/cumm (1.2-6.7); Basophils % 0.4; Eosinophils % 1.4; HGB 16.7 g/dL (13.5-17.5); Immature Grans % 0.1; Mean Corp. HGB Concentration 32.7 g/dL (32.0-36.0); Mean Corpuscular Hemoglobin 32.1 pg (27.0-33.0); Mean Corpuscular Volume 97.9 fL (80-95); Mean Platelet Volume 11.3 fL (8.0-11.0); Monocytes % 10.9; Neutrophils % 48.2; Platelet Count 165 x1000/uL (130-400); RBC 5.21 m/cumm (4.50-6.00); RBC Distribution Width 13.5 % (11.8-14.1); White Blood Cell Count 7.33 k/cumm (4.4-10.8)
[2018-11-17 07:43] LABS: Anion Gap 5.9 mmol/L (3-11); BUN 10 mg/dL (7-18); CO2 28.1 mmol/L (21.0-32.0); CREATININE 0.36 mg/dL (0.70-1.30); Calcium 8.3 mg/dL (8.5-10.1); Chloride 112 mmol/L (98-107); Glucose 88 mg/dL (70-100); Magnesium 2.3 mg/dL (1.8-2.4); Sodium 146 mmol/L (136-145)
[2018-11-17 07:45] LABS: ALT 54 U/L (12-78); AST 19 U/L (15-37); Albumin 2.8 g/dL (3.4-5.0); Alkaline Phosphatase 35 U/L (46-116); Bilirubin, Direct 0.13 mg/dL (0.00-0.20); Bilirubin, Total 0.5 mg/dL (0.2-1.0); Total Protein 6.1 g/dL (6.4-8.2)
[2018-11-17 08:16] LABS: BE 4.7 mmol/L (-3-3); HCO3 30 mmol/L (22-28); pCO2 51 mmHg (34-47); pH 7.38 (7.35-7.45); pO2 62 mmHg (83-108); sO2 91 % (94-98); tCO2 26 mmol/L (22-29)
[2018-11-17 08:18] LABS: Site Right Radial
[2018-11-17] MEDS: Pantoprazole 40 MG VIAL IVP (08:35)
[2018-11-17] MEDS: Thiamine 100 MG TAB NG (08:36)
[2018-11-17] MEDS: ARIPiprazole 5 MG TAB 2.5 MG NG (08:38)
[2018-11-17] MEDS: Lisinopril 20 MG TAB PO (08:39)
[2018-11-17] MEDS: Multivitamin TAB 1 TAB UD (08:39)
[2018-11-17] MEDS: DULoxetine 30 MG CAP NG (08:39)
[2018-11-17] MEDS: Folic Acid 1 MG TAB UD (08:40)
[2018-11-17] MEDS: Pregabalin 100 MG CAP 200 MG NG ×2 (08:40→14:30)
[2018-11-17] MEDS: busPIRone 5 MG TAB 10 MG PO (08:43)
[2018-11-17] MEDS: Budesonide/Formoterol 160/4.5 6 GM 60 PUFF INH IH (09:46)
--- NOTE | 2018-11-17 10:29 | CMPROGNOTE_ITS ---
Care Management Progress Note S/O: Edd is currently intubated. A: 43 y.o. male admitted for Alcohol withdrawal P: Anticipate transfer to tertiary level of care. [place] [facility] [place]. Emblem Maker, Mehdi Carias [phone], has been informed.
--- NOTE | 2018-11-17 10:29 | PDOC.CMPRO ---
Care Management Progress Note S/O: Edd is currently intubated. A: 43 y.o. male admitted for Alcohol withdrawal P: Anticipate transfer to tertiary level of care. He has been accepted by [facility] [place]. Ambulance transfer is being arranged. Visual Merchandising Manager, Mehdi Carias [phone], has been informed.
[2018-11-17] MEDS: PROPOFOL 1,000 MG/100 ML BTL 23.52 MG IVPB ×2 (12:11→15:58)
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
--- NOTE | 2018-11-17 15:00 | CMDISCH_ITS ---
LACE Index Scoring Tool - Questions: Length of Stay (in days): 2 Acuity (Admit via E.D.?): Yes E.D. Visits: 2 - Answers: Total Score: 7 Risk of Readmission: Low Risk Care Management Discharge Reason for Hospitalization: Alcohol withdrawal Discharge Plan: Transfer to Tertiary level Care. [place] [facility] wildlife conservation officer, Mehdi Martins, notified. Patient/Family Education Needs: Limitations
--- NOTE | 2018-11-19 18:32 | NUR.NOTE ---
[facility] called. Needed copy of EMTALA and FACESHEET faxed to them. Called them back to report that chart has left ICU and those docs have not been scanned into the ECHART. Recommended called med records tomorrow. Nursing Note:
== END 2018-11-17 16:20 | disposition short-term general hospital (02) | DRG 897 ==
LOC: ER 12:41 → ICU 15:40
PROVIDERS: Admitting Provider Internal Medicine; Emergency Provider Physician Assistant; PCP Nurse Practitioner Family; Visit Provider Internal Medicine
DX: F10.239 Alcohol dependence with withdrawal, unspecified (principal); I47.1 Supraventricular tachycardia; J44.1 Chronic obstructive pulmonary disease with (acute) exacerbation; J96.11 Chronic respiratory failure with hypoxia; F11.20 Opioid dependence, uncomplicated; D75.1 Secondary polycythemia; Z99.81 Dependence on supplemental oxygen; I10 Essential (primary) hypertension; Z78.1 Physical restraint status; Z89.511 Acquired absence of right leg below knee
CPT/HCPCS: 36410; 36415; 71045; 80048; 80053; 80076; 82805; 83690; 84145; 87040; 93005; 94640; 96361; 96365; 96375; 96376; 99223; 99232; 99239; 99285; 99291; J1650; 36600; 80202; 80320; 83605; 83735; 84484; 85025; 87070; 87205; 93010; 94002; J0780; J2060; J2930; J3370; J3490; J7613; J7614; J7620

== ENCOUNTER 2019-11-13 10:17 | Inpatient (IN) | payer MEDICARE, MEDICAID, SELFPAY ==
[2019-11-13] VITALS (61 sets, daily range): BP systolic 107–150; BP diastolic 67–113; PULSE 84–112; RESP 8–27; TEMP 37.1–37.6; O2SAT 86–98
--- NOTE | 2019-11-13 10:15 | RT.EKG_ITS ---
APPROVED REPORT Exam: Resting ECG Patient Location: E HR:106 bpm ECG Measurements Heart Rate 106 AXIS WV 117 P 44 QRSd 90 QRS 107 QT 326 T 61 QTc 433 <Conclusion> Sinus tachycardia...106. QRSD is narrow, No ST segmen elev. Right axis deviation...QRS axis (100,269)
--- NOTE | 2019-11-13 11:00 | DI.RAD_ITS ---
EXAM: XR PORTABLE CHEST AP CLINICAL HISTORY: cough, wheeze, copd TECHNIQUE: COMPARISON: CR CHEST 2 VIEWS PA,LAT from 07/24/2014 CR XR PORTABLE CHEST AP from 11/16/2018 FINDINGS: Portable upright chest radiograph 1242 hours. There may be mild cardiomegaly. There are bilateral p redominantly basilar streaky and patchy intrapulmonary infiltrates, the findings may represent atelec tasis and/or consolidation. Some underlying degree of pulmonary fibrotic change may be present. IMPRESSION: Bibasilar atelectasis and/or consolidation, underlying CHF and/or fibrosis not excluded. Follow-up r adiographs requested following treatment.
--- NOTE | 2019-11-13 11:08 | W.ED.GENAD ---
Discharge Plan Disposition Patient Disposition: [facility] INPATIENT Condition: Stable Discharge Details Chief Complaint: SOB Clinical Impression: Acute and chronic respiratory failure ([id number]), Pneumonia Primary Care Provider: Marge Leo ED Provider: Fuad Ch Home Meds and New Rx's Prescriptions: No Action lisinopril 20 MG tablet 20 mg PO DAILY RF: 0 pregabalin [Lyrica] 300 MG capsule 200 mg PO TID RF: 0 Combivent Respimat 120 PUFF mist 2 puff Inhalation QID RF: 0 albuterol sulfate 8.5 GM HFA aerosol inhaler 2 puff Inhalation PRN PRNRF: 0 levalbuterol tartrate [Xopenex HFA] 200 PUFF HFA aerosol inhaler 2 puff Inhalation PRN PRNRF: 0 duloxetine [Cymbalta] 30 mg Capsule,Delayed Release(Dr/Ec) 30 mg PO DAILY RF: 0 pyridoxine (vitamin B6) [Vitamin B-6] 50 mg Tablet 50 mg PO DAILY RF: 0 nicotine 14 mg/24 hr Patch 24 Hour 14 mg transdermal DIRECTED RF: 0 acetaminophen 325 mg Tablet 325 mg PO Q4H PRN PRNRF: 0 ipratropium-albuterol 0.5 mg-3 mg(2.5 mg base)/3 mL Solution For Nebulization 3 ml INHALATION QID RF: 0 buspirone 10 mg Tablet 10 mg PO BID RF: 0 ibuprofen 400 mg Tablet 400 mg PO TID PRNRF: 0 lorazepam 0.5 mg Tablet 1 mg PO DAILY PRNRF: 0 methadone 10 mg/5 mL Solution 132 mg PO DAILY RF: 0 multivitamin Tablet 1 tab PO DAILY RF: 0 quetiapine 25 mg Tablet 25 mg PO Q4H PRN PRN (Reason: Agitation) RF: 0 quetiapine 300 mg Tablet 300 mg PO HS RF: 0 thiamine mononitrate (vit B1) 100 mg Tablet 100 mg PO DAILY RF: 0 amlodipine 10 mg tablet RF: 0 pantoprazole 40 mg tablet,delayed release (DR/EC) 40 mg PO DAILY RF: 0 codeine-guaifenesin [Virtussin AC] 10-100 mg/5 mL liquid RF: 0 Medical Decision Making 44-year-old male with a history of oxygen dependent COPD. Reports being discharged from [facility] days ago after admission for respiratory distress. He states he had a negative COVID test at that time and was discharged on a steroid taper. At outpatient recheck this morning was noted to have persistent cough, wheeze, shortness of breath, and a low-grade fever of 100.6. He was referred to the emergency department and arrives a temp of 37.6, mild tachycardia of 106, normotensive with oxygenation of 87 to 88% on 3 to 4 L. Records requested from [facility]. IV access established, respiratory therapy to bedside for assistance with inhaled DuoNeb. Patient given parenteral steroids. Patient referred for laboratory testing, VBG, portable chest x-ray. Records requested from [facility]. Medications were reconciled with the patient's pharmacy/primary care records. Patient briefly trialed on BiPAP, weaned back to baseline 3 L oxygen after DuoNeb x2. VBG reveals normal pH, hypercarbia with a PCO2 of 60. Remainder of the labs show reassuring chemistries and renal function, normal LFTs, negative troponin. D-dimer negative. Chest x-ray reviewed with Dr. Smiley and reveals bibasilar infiltrates/plate like linear atelectasis. Copy records obtained and note admit date of November 05, discharge date of November 09 for acute exacerbation of COPD and acute on chronic hypoxemic respiratory failure. The patient was treated with ceftriaxone and azithromycin. Patient was discharged with 4 days of Cefpodoxime, but is unclear whether he has been taking this in accordance with the prescription. He states he has been taking his prednisone which is noted as 40 mg x 3 days and then 20 mg x 7 days. Today's presentation is consistent with recurrence of acute on chronic exacerbation of COPD and mild worsening of his known respiratory failure. Blood cultures were obtained. I will order sputum culture. Start the patient on parenteral antibiotics. He will require admission to the hospital. ECG Data Attestation: I personally reviewed and interpreted this ECG (s) as follows: Interpretation: Sinus tachycardia with a rate of 106 HPI General Mode of arrival: ambulatory. Date/Time Provider Initiated Documentation: 11/13/19 10:20. Limitations to Documentation: no limitations. Information obtained by: patient. History of Present Illness 44 year old M presents to the emergency department with the chief complaint of Cough and shortness of breath, recent discharge from [facility], described as moderate, and is localized to the chest. Patient reports no radiation. Patient started experiencing this day(s) and it has been intermittent. No relieving factors improve symptom(s), No exacerbating factors reported . Patient notes cough, fever/chills and shortness of breath. Patient did receive the following treatments prior to arrival, other (Discharge from [facility] on prednisone taper he believes is 40 mg) Related Data Home Medications Medication Instructions Recorded Confirmed Combivent Respimat 2 puff INHALATION QID 03/24/14 11/13/19 lisinopril 20 mg PO DAILY 03/24/14 11/13/19 pregabalin [Lyrica] 200 mg PO TID 03/24/14 11/13/19 albuterol sulfate 2 puff INHALATION PRN PRN 05/07/14 11/13/19 levalbuterol tartrate [Xopenex HFA] 2 puff INHALATION PRN PRN 07/24/14 11/13/19 acetaminophen 325 mg PO Q4H PRN PRN 11/15/18 11/13/19 buspirone 10 mg PO BID 11/15/18 11/13/19 duloxetine [Cymbalta] 30 mg PO DAILY 11/15/18 11/13/19 ibuprofen 400 mg PO TID PRN 11/15/18 11/13/19 ipratropium-albuterol 3 ml INHALATION QID 11/15/18 11/13/19 lorazepam 1 mg PO DAILY PRN 11/15/18 11/13/19 methadone 132 mg PO DAILY 11/15/18 11/15/18 multivitamin 1 tab PO DAILY 11/15/18 11/13/19 nicotine 14 mg TRANSDERMAL DIRECTED 11/15/18 11/13/19 pyridoxine (vitamin B6) [Vitamin 50 mg PO DAILY 11/15/18 11/13/19 B-6] quetiapine 25 mg PO Q4H PRN PRN 11/15/18 11/13/19 quetiapine 300 mg PO HS 11/15/18 11/13/19 thiamine mononitrate (vit B1) 100 mg PO DAILY 11/15/18 11/13/19 amlodipine 11/13/19 11/13/19 codeine-guaifenesin [Virtussin AC] ml 11/13/19 11/13/19 pantoprazole 40 mg PO DAILY 11/13/19 11/13/19 Allergies Allergy/AdvReac Type Severity Reaction Status Date / Time Penicillins Allergy Severe Anaphylaxsi Unverified 11/13/19 12:56 s General Stated Complaint: SOB DONAL: 2 Review of Systems Narrative: States negative COVID test at [facility]. States ongoing shortness of breath, feels wheezy, has had a cough and had a low-grade fever at his outpatient check today. 8 systems reviewed and otherwise negative [facility] Medical History Alcohol abuse (Chronic) Alcohol withdrawal seizure (Acute) Asthma (Chronic) Chronic respiratory failure with hypoxia (Acute) COPD (chronic obstructive pulmonary disease) (Chronic) HCAP (healthcare-associated pneumonia) (Ruled-out) Hepatitis C (Chronic) HTN (hypertension) (Chronic) Narcotic abuse (Chronic) Opiate dependence (Acute) Polycythemia (Chronic) EDGARDO mutation negative Family History Maternal Uncle Hypertension Stroke Diabetes Mother Brain aneurysm Social History Smoking/Tobacco Use Status: Current every day Alcohol Intake: former Details: drinks at least 1/5 of vodka daily Drug use: Never Substance use type: former substance user and painkillers Details: currently on methadone for past 2.5 years 1 pack cigarettes barry last 4-5 days has not drank for over 1 year Do you feel safe at home: Yes Do you feel safe in your relationship?: Yes Exam Narrative Exam Narrative: GEN: awake, alert, oriented 3. Pleasant, well groomed, interactive. HEAD: Normocephalic, atraumatic ENT: Mucous membranes moist, oropharynx unremarkable, External ear exam unremarkable EYES: PERRL, EOMI NECK: Full ROM, no ELISA, no menigismus CHEST/RESP: Nontender, diminished breath sounds throughout, end expiratory wheeze bilaterally CARDIOVASCULAR: RRR, no murmur, rub bethany. 2+ Rad pulse bilateral ABDOMEN: Soft, nontender, no mass. +Bowel sounds EXT: Full ROM, right below the knee amputation, 1+ edema of the left pretibial Neuro: Grossly normal neurologic exam, conversant, interactive. Psych: Speech fluent, thoughts congruent, affect normal Course Vital Signs Vital signs: Vital Signs Temperature 37.6 C H 11/13/19 10:29 Pulse 108 H 11/13/19 10:29 Respiratory Rate 19 11/13/19 10:29 Blood Pressure 136/75 11/13/19 10:29 Pulse Oximetry 87 L 11/13/19 10:29 Temperature 37.6 C H 11/13/19 10:29 Temperature Source Oral 11/13/19 10:29 Pulse 108 H 11/13/19 10:29 Respiratory Rate 19 11/13/19 10:29 Respiratory Effort Incrsd Work of Breathing 11/13/19 10:51 Blood Pressure 136/75 11/13/19 10:29 Blood Pressure Position Sitting 11/13/19 10:29 Pulse Oximetry 91 L 11/13/19 10:40 Oxygen Delivery Method Nasal Cannula 11/13/19 10:40 Oxygen Flow Rate 3 11/13/19 10:40 Pain Level 11/13/19 10:29 Comment 11/13/19 10:29
[2019-11-13] MEDS: Albuterol/Ipratropium 3 ML UPD VIAL UPD ×2 (11:31→11:33)
[2019-11-13] MEDS: LORazepam 2 MG/ML VIAL 1 MG IVP (11:36)
[2019-11-13] MEDS: methylPREDNISolone SUCC 125 MG VIAL IVP (11:37)
[2019-11-13] MEDS: Normal Saline 1,000 ML 150 ML IV ×2 (11:37→20:21)
[2019-11-13 12:33] LABS: BE (Venous) 9.1 mmol/L (-3-3); HCO3 (Venous) 35 mmol/L (22-28); O2 Sat (Venous) 88 % (70-80); TCO2 (Venous) 30 mmol/L (22-29); pCO2 (Venous) 60 mm/Hg (34-47); pH (Venous) 7.37 (7.35-7.45); pO2 (Venous) 53 mm/Hg (28-44)
[2019-11-13 12:41] LABS: Abs Immature Grans 0.04 k/cumm (0.0-0.09); Absolute Basophil Count 0.01 k/cumm (0.0-0.2); Absolute Eosinophil Count 0.35 k/cumm (0.0-0.7); Absolute Lymphocyte Count 3.78 k/cumm (1.2-3.4); Absolute Monocyte Count 0.99 k/cumm (0.11-0.7); Absolute Neutrophil Count 4.31 k/cumm (1.2-6.7); Basophils % 0.1; Eosinophils % 3.7; HCT 50.3 % (40.0-50.0); Immature Grans % 0.4 %; Lymphocytes % 39.9; Mean Corp. HGB Concentration 33.8 g/dL (32.0-36.0); Mean Corpuscular Hemoglobin 33.5 pg (27.0-33.0); Mean Platelet Volume 9.8 fL (8.0-11.0); Monocytes % 10.4; Neutrophils % 45.5; Platelet Count 181 x1000/uL (130-400); RBC 5.08 m/cumm (4.50-6.00); RBC Distribution Width 13.5 % (11.8-14.1); White Blood Cell Count 9.48 k/cumm (4.4-10.8)
[2019-11-13 12:51] LABS: ALT 55 U/L (16-63); AST 26 U/L (15-37); Albumin 3.4 g/dL (3.4-5.0); Alkaline Phosphatase 52 U/L (46-116); Anion Gap 2.5 mmol/L (3-11); BUN 14 mg/dL (7-18); Bilirubin, Total 0.2 mg/dL (0.2-1.0); CO2 34.5 mmol/L (21.0-32.0); CREATININE 0.79 mg/dL (0.70-1.30); Calcium 8.2 mg/dL (8.5-10.1); Chloride 102 mmol/L (98-107); Glucose 105 mg/dL (74-106); Magnesium 2.3 mg/dL (1.8-2.4); Potassium 4.1 mmol/L (3.5-5.1); Sodium 139 mmol/L (136-145); Total Protein 6.6 g/dL (6.4-8.2)
[2019-11-13 12:52] LABS: Troponin I < 0.05 ng/mL (<0.06)
[2019-11-13] MEDS: Pregabalin 100 MG CAP 200 MG PO ×2 (12:57→20:20)
[2019-11-13] MEDS: guaiFENesin/D-METHORPHAN HB 5 ML CUP 10 ML PO (12:58)
[2019-11-13 13:08] LABS: D-Dimer 430 ng/mlFEU (<500)
--- NOTE | 2019-11-13 13:36 | HPE_ITS ---
Date of service: 11/13/19 Time of Service: 13:36 Assessment and Plan Assessment and plan (1) Acute and chronic respiratory failure ([id number]): Status: Acute Assessment and plan: failure to discharge d/t non-compliance (never filled prednisone or cefpodoxime on discharge from hospital) recently treated with ceftriaxone and azithromycin while hospitalized, sent home on cefpodoxime and steroid taper which he did not take. he has been afebrile with a normal white count. blood cultures pending. exam and findings most consistent with copd exacerbation, acute on chronic. ddimer negative and was covid negative during hospitalization, repeat covid from today pending. will admit to med/surg, most likely COPD exacerbation. start on doxycycline IV and increase IV steroids. low threshold to broaden antibiotics. home oxygen dependent. wean to home flow rate as able. (2) Opiate dependence: Status: Acute Assessment and plan: will verify methadone dosing and continue home dosin g. (3) Alcohol abuse: Status: Chronic Assessment and plan: history of, denies current use. CIWA protocol initially. lorazepam as needed. (4) HTN (hypertension): Status: Chronic Assessment and plan: has not filled lisinopril for months so will not resume now. will monitor (5) Tobacco abuse: Status: Acute Assessment and plan: nicotine patch (6) Depression: Status: Chronic Assessment and plan: not compliant with all meds on list, only filling lyrica and seroquel. will not resume other meds for now and defer to outpatient team lorazepam prn (7) DVT prophylaxis: Status: Acute Assessment and plan: enoxaparin daily, teds and scd (8) Discharge planning issues: Status: Acute Assessment and plan: home when medically stable discussed with DR jasso who is in agreement History of Present Illness History of Present Illness Chief Complaint: shortness of breath Narrative: this is a 44 year old male with a significant past medical history including substance abuse, COPD with oxygen dependency, presents to the emergency department with the chief complaint of Cough and shortness of breath, recent discharge from [facility] for COPD exacerbation. Patient notes cough, fever/chills and shortness of breath. Patient did receive the following treatments prior to arrival, other (Discharge from [facility] on cefpodoxime and prednisone taper but did not pick them up. He states he smokes 5 -6 cigarettes daily, has not drank alcohol in years and denies recent substance abuse Review of Systems Eyes Eyes: Reports change in vision ENT Ears, Nose, Mouth, and Throat: Denies dizziness Cardiovascular Cardiovascular: Denies chest pain and Reports dyspnea Respiratory Respiratory: Reports cough and Reports dyspnea Gastrointestinal Gastrointestinal: Denies abdominal pain, Denies constipation, Denies nausea and Denies vomiting Integumentary/Breasts Skin/Breast: Denies rash Neurologic Neurologic: Denies dizziness Hematologic/Lymphatic Hematologic/Lymphatic: Denies easy bleeding [facility] Medical History Alcohol abuse (Chronic) Alcohol withdrawal seizure (Acute) Asthma (Chronic) Chronic respiratory failure with hypoxia (Acute) COPD (chronic obstructive pulmonary disease) (Chronic) HCAP (healthcare-associated pneumonia) (Ruled-out) Hepatitis C (Chronic) HTN (hypertension) (Chronic) Narcotic abuse (Chronic) Opiate dependence (Acute) Polycythemia (Chronic) EDGARDO mutation negative Family History Maternal Uncle Hypertension Stroke Diabetes Mother Brain aneurysm Social History Smoking/Tobacco Use Status: Current every day Alcohol Intake: former Details: drinks at least 1/5 of vodka daily Drug use: Never Substance use type: former substance user and painkillers Details: currently on methadone for past 2.5 years 1 pack cigarettes barry last 4-5 days has not drank for over 1 year Do you feel safe at home: Yes Do you feel safe in your relationship?: Yes Meds Home Medications and Allergies Home Medications Medication Instructions Recorded Confirmed Type Combivent Respimat 2 puff INHALATION QID 03/24/14 11/13/19 History lisinopril 20 mg PO DAILY 03/24/14 11/13/19 History pregabalin [Lyrica] 200 mg PO TID 03/24/14 11/13/19 History albuterol sulfate 2 puff INHALATION PRN PRN 05/07/14 11/13/19 History levalbuterol tartrate [Xopenex HFA] 2 puff INHALATION PRN PRN 07/24/14 11/13/19 History acetaminophen 325 mg PO Q4H PRN PRN 11/15/18 11/13/19 History buspirone 10 mg PO BID 11/15/18 11/13/19 History duloxetine [Cymbalta] 30 mg PO DAILY 11/15/18 11/13/19 History ibuprofen 400 mg PO TID PRN 11/15/18 11/13/19 History ipratropium-albuterol 3 ml INHALATION QID 11/15/18 11/13/19 History lorazepam 1 mg PO DAILY PRN 11/15/18 11/13/19 History methadone 120 mg PO DAILY 11/15/18 11/13/19 History multivitamin 1 tab PO DAILY 11/15/18 11/13/19 History nicotine 14 mg TRANSDERMAL DIRECTED 11/15/18 11/13/19 History pyridoxine (vitamin B6) [Vitamin 50 mg PO DAILY 11/15/18 11/13/19 History B-6] quetiapine 25 mg PO Q4H PRN PRN 11/15/18 11/13/19 History quetiapine 300 mg PO HS 11/15/18 11/13/19 History thiamine mononitrate (vit B1) 100 mg PO DAILY 11/15/18 11/13/19 History amlodipine 11/13/19 11/13/19 History codeine-guaifenesin [Virtussin AC] ml 11/13/19 11/13/19 History pantoprazole 40 mg PO DAILY 11/13/19 11/13/19 History Allergies Allergy/AdvReac Type Severity Reaction Status Date / Time Penicillins Allergy Severe Anaphylaxsi Unverified 11/13/19 12:56 s Exam Narrative Exam Narrative: GEN: awake, alert, oriented 3. older appearing that stated age, sunny complexion. HEAD: Normocephalic, atraumatic ENT: Mucous membranes dry, oropharynx no exudate, EYES: PERRL, EOMI NECK: supple RESP: Nontender, diminished throughout, coarse bases exp wheeze scattered bilaterally CARDIOVASCULAR: RRR ABDOMEN: Soft, nontender. +Bowel sounds EXT: Full ROM, right below the knee amputation, trace left Neuro: awake and alert, grossly normal neurologic exam Psych: Speech fluent, thoughts congruent, flat affect Results Labs Result diagrams: 11/13/19 12:26 11/13/19 12:26 Labs: Laboratory Results - last 24 hr 11/13/19 11/13/19 11/13/19 11:07 12:26 12:26 WBC 9.48 RBC 5.08 Hgb 17.0 Hct 50.3 H MCV 99.0 H MCH 33.5 H MCHC 33.8 RDW 13.5 Plt Count 181 MPV 9.8 Immature Gran % 0.4 Neutrophils % 45.5 Lymphocytes % 39.9 Monocytes % 10.4 Eosinophils % 3.7 Basophils % 0.1 Absolute Neutrophils 4.31 Absolute Lymphocytes 3.78 H Absolute Monocytes 0.99 H Absolute Eosinophils 0.35 Absolute Basophils 0.01 D-Dimer ABG Sample Site Cancelled ABG pH Cancelled ABG pCO2 Cancelled ABG pO2 Cancelled ABG HCO3 Cancelled ABG Total CO2 Cancelled ABG O2 Saturation Cancelled ABG Base Excess Cancelled VBG pH VBG pCO2 VBG pO2 VBG HCO3 VBG Total CO2 VBG O2 Saturation VBG Base Excess Oxygen Liter Flow Cancelled FiO2 Cancelled Sodium 139 Potassium 4.1 Chloride 102 Carbon Dioxide 34.5 H Anion Gap 2.5 L BUN 14 Creatinine 0.79 Estimated GFR/1.73 m2 >= 60.00 Glucose 105 Calcium 8.2 L Magnesium 2.3 Total Bilirubin 0.2 AST 26 ALT 55 Alkaline Phosphatase 52 Troponin I < 0.05 Total Protein 6.6 Albumin 3.4 11/13/19 11/13/19 12:26 12:26 WBC RBC Hgb Hct MCV MCH MCHC RDW Plt Count MPV Immature Gran % Neutrophils % Lymphocytes % Monocytes % Eosinophils % Basophils % Absolute Neutrophils Absolute Lymphocytes Absolute Monocytes Absolute Eosinophils Absolute Basophils D-Dimer 430 ABG Sample Site ABG pH ABG pCO2 ABG pO2 ABG HCO3 ABG Total CO2 ABG O2 Saturation ABG Base Excess VBG pH 7.37 VBG pCO2 60 H VBG pO2 53 H VBG HCO3 35 H VBG Total CO2 30 H VBG O2 Saturation 88 H VBG Base Excess 9.1 H Oxygen Liter Flow FiO2 Sodium Potassium Chloride Carbon Dioxide Anion Gap BUN Creatinine Estimated GFR/1.73 m2 Glucose Calcium Magnesium Total Bilirubin AST ALT Alkaline Phosphatase Troponin I Total Protein Albumin Last Vital Signs Temp 37.6 C H 11/13/19 10:29 Pulse 94 H 11/13/19 12:31 Resp 13 11/13/19 12:40 BP 114/68 11/13/19 12:31 Pulse Ox 93 L 11/13/19 12:40 COVID-19 Screening Have you,or household,traveled outside [place] in last 14 days?: No Had IN PERSON contact w/suspected or confirmed C-19 person: No
--- NOTE | 2019-11-13 13:40 | NUR.NOTE ---
pt provided with meal tray Nursing Note:
[2019-11-13] MEDS: levoFLOXacin 750 MG/150 ML BAG 100 MG IVPB (13:44)
[2019-11-13] MEDS: guaiFENesin/CODEINE PHOSPHATE 10 ML CUP PO ×2 (13:50→21:30)
[2019-11-13] MEDS: Normal Saline Flush 10 ML SYR IVP ×3 (13:50→20:20)
[2019-11-13] MEDS: Nicotine 14 MG/24 HR PATCH TD (17:28)
[2019-11-13] MEDS: LORazepam 1 MG TAB PO/SL ×2 (17:30→21:29)
[2019-11-13] MEDS: Ibuprofen 400 MG TAB PO (17:31)
[2019-11-13] MEDS: Ipratropium/Albuterol 4 GM 120 PUFF INH IH ×2 (17:31→20:18)
[2019-11-13] MEDS: Enoxaparin 40 MG/0.4 ML SYR SC (17:32)
[2019-11-13] MEDS: DOXYCYCLINE 100 MG in Normal Saline 100 ML IVPB (17:45)
[2019-11-13] MEDS: methylPREDNISolone SUCC 125 MG VIAL 60 MG IVP (20:19)
[2019-11-13] MEDS: QUEtiapine 300 MG TAB PO (21:30)
[2019-11-13] MEDS: Acetaminophen 325 MG TAB PO (21:30)
[2019-11-14] VITALS (18 sets, daily range): BP systolic 138–160; BP diastolic 78–94; PULSE 78–108; RESP 2–22; TEMP 36–37.3; O2SAT 90–97
[2019-11-14] MEDS: Normal Saline 1,000 ML 150 ML IV ×3 (03:33→20:30)
[2019-11-14] MEDS: DOXYCYCLINE 100 MG in Normal Saline 100 ML IVPB ×2 (03:34→15:55)
[2019-11-14] MEDS: LORazepam 1 MG TAB PO (03:59)
[2019-11-14] MEDS: Ibuprofen 400 MG TAB PO ×2 (03:59→12:57)
[2019-11-14] MEDS: Albuterol HFA 8 GM 60 PUFF INH IH ×2 (04:19→08:01)
[2019-11-14] MEDS: LORazepam 1 MG TAB PO/SL (04:19)
[2019-11-14] MEDS: guaiFENesin 200 MG/10 ML CUP 100 MG PO (06:45)
[2019-11-14 07:25] LABS: HCT 48.1 % (40.0-50.0); HGB 17.1 g/dL (13.5-17.5); Mean Corp. HGB Concentration 35.6 g/dL (32.0-36.0); Mean Corpuscular Hemoglobin 33.9 pg (27.0-33.0); Mean Corpuscular Volume 95.4 fL (80-95); Mean Platelet Volume 9.7 fL (8.0-11.0); Platelet Count 160 x1000/uL (130-400); RBC 5.04 m/cumm (4.50-6.00); RBC Distribution Width 12.9 % (11.8-14.1); White Blood Cell Count 9.61 k/cumm (4.4-10.8)
[2019-11-14 07:35] LABS: Anion Gap 8.6 mmol/L (3-11); BUN 14 mg/dL (7-18); CO2 24.4 mmol/L (21.0-32.0); CREATININE 0.65 mg/dL (0.70-1.30); Calcium 8.5 mg/dL (8.5-10.1); Chloride 102 mmol/L (98-107); Glucose 199 mg/dL (74-106); Potassium 4.4 mmol/L (3.5-5.1); Sodium 135 mmol/L (136-145)
[2019-11-14] MEDS: Ipratropium/Albuterol 4 GM 120 PUFF INH IH (07:54)
[2019-11-14] MEDS: Pantoprazole 40 MG TABCR PO (07:55)
[2019-11-14] MEDS: Pregabalin 100 MG CAP 200 MG PO ×3 (07:55→19:45)
[2019-11-14] MEDS: Multivitamin TAB 1 TAB PO (07:56)
[2019-11-14] MEDS: methylPREDNISolone SUCC 125 MG VIAL 60 MG IVP (07:56)
[2019-11-14] MEDS: amLODIPine 10 MG TAB PO (07:56)
[2019-11-14] MEDS: Thiamine 100 MG TAB PO (07:56)
[2019-11-14] MEDS: Methadone Liquid 10 MG/ML 132 MG PO (07:58)
[2019-11-14] MEDS: Normal Saline Flush 10 ML SYR IVP ×2 (07:58→18:20)
[2019-11-14 09:05] LABS: COVID-19 RT-PCR UVMMC Result Negative (Negative)
[2019-11-14] MEDS: guaiFENesin/CODEINE PHOSPHATE 10 ML CUP PO ×3 (09:22→19:44)
[2019-11-14] MEDS: Benzonatate 200 MG CAP PO ×3 (09:22→19:44)
[2019-11-14] MEDS: LORazepam 1 MG TAB 2 MG PO ×4 (09:22→21:09)
[2019-11-14] MEDS: guaiFENesin 600 MG TABCR PO ×2 (09:22→19:45)
[2019-11-14] MEDS: Albuterol/Ipratropium 3 ML UPD VIAL UPD ×4 (10:01→19:44)
[2019-11-14] MEDS: MAGNESIUM SULFATE 2 GM/50 ML BAG IVPB (10:19)
[2019-11-14] MEDS: methylPREDNISolone SUCC 125 MG VIAL 80 MG IVP ×2 (10:31→18:25)
[2019-11-14] MEDS: Budesonide/Formoterol 80/4.5 6.9 GM 60 PUFF INH IH ×2 (11:06→19:45)
--- NOTE | 2019-11-14 12:25 | W.PM.PROGNOT ---
Date of Service Date of service: 11/14/19 Time of Service: 12:25 Assessment and Plan Assessment and plan (1) Acute and chronic respiratory failure ([id number]): Start date: 11/14/19 Start time: 12:28 Status: Acute Assessment and plan: Very poor aeration with insp and exp. wheezing throughout both lung henriquez. Also c/o pluertic CP due to cough. Robitussin with codiene TID Requires 3 liters oxygen at all times ativan for anxiety, this does not appear to be ETOH withdrawal, it appears more chronic dyspneic anxiety therefore ativan would be appropriate shantal for severe noncompliant COPD. Increase steroids to 80 mg q 8 hours until wheezing improve 2 gm mag Sputum cx pending, antimuclytics, tessalon pearles, and ICS and acapella for secretion clearance. I will also consult palliative, patient states he is on a lung transplant list. Continue IV doxy (2) Opiate dependence: Start date: 11/14/19 Start time: 12:33 Status: Acute Assessment and plan: Continue methadone dosing verified by previous provider (3) Alcohol abuse: Start date: 11/14/19 Start time: 12:34 Status: Chronic Assessment and plan: history of, denies current use. (4) HTN (hypertension): Start date: 11/14/19 Start time: 12:34 Status: Chronic Assessment and plan: has not filled lisinopril for months so will not resume now. will monitor (5) Tobacco abuse: Start date: 11/14/19 Start time: 12:34 Status: Acute Assessment and plan: nicotine patch (6) Depression: Start date: 11/14/19 Start time: 12:34 Status: Chronic Assessment and plan: not compliant with all meds on list, only filling lyrica and seroquel. will not resume other meds for now and defer to outpatient team lorazepam prn (7) DVT prophylaxis: Start date: 11/14/19 Start time: 12:34 Status: Acute Assessment and plan: enoxaparin daily, teds and scd (8) Discharge planning issues: Start date: 11/14/19 Start time: 12:34 Status: Acute Assessment and plan: home when medically stable discussed with DR jasso who is in agreement Subjective Subjective Patient reports: shortness of breath Interval history since last seen: Patient c/o SOB, wheezing throughout lung field with pleuretic chest pain. Does not appear to be working to breath, able to complete full sentences. Will increase solumedrol to 80 mg IV q 8 until wheezing improves, updraft q4 hours for 24 hours and antimucolytics. He denies n/v/d. Exam Narrative Exam Narrative: GEN: awake, alert, oriented 3. older appearing that stated age, sunny complexion. HEAD: Normocephalic, atraumatic ENT: Mucous membranes dry, oropharynx no exudate, EYES: PERRL, EOMI NECK: supple RESP: Nontender, diminished throughout, insp and exp wheeze throught out bilateral lung henriquez. poor aeration CARDIOVASCULAR: RRR ABDOMEN: Soft, nontender. +Bowel sounds EXT: Full ROM, right below the knee amputation, trace left Neuro: awake and alert, grossly normal neurologic exam Psych: Speech fluent, thoughts congruent, flat affect Objective Objective Clinical Data: Abnormal lab results 11/13/19 11/13/19 11/13/19 Range/Units 12:26 12:26 12:26 Hct 50.3 H (40.0-50.0) % MCV 99.0 H (80-95) fL MCH 33.5 H (27.0-33.0) pg Absolute Lymphocytes 3.78 H (1.2-3.4) k/cumm Absolute Monocytes 0.99 H (0.11-0.7) k/cumm VBG pCO2 60 H (34-47) mm/Hg VBG pO2 53 H (28-44) mm/Hg VBG HCO3 35 H (22-28) mmol/L VBG Total CO2 30 H (22-29) mmol/L VBG O2 Saturation 88 H (70-80) % VBG Base Excess 9.1 H (-3-3) mmol/L Sodium (136-145) mmol/L Carbon Dioxide 34.5 H (21.0-32.0) mmol/L Anion Gap 2.5 L (3-11) mmol/L Creatinine (0.70-1.30) mg/dL Glucose (74-106) mg/dL Calcium 8.2 L (8.5-10.1) mg/dL 11/14/19 11/14/19 Range/Units 07:00 07:00 Hct (40.0-50.0) % MCV 95.4 H D (80-95) fL MCH 33.9 H (27.0-33.0) pg Absolute Lymphocytes (1.2-3.4) k/cumm Absolute Monocytes (0.11-0.7) k/cumm VBG pCO2 (34-47) mm/Hg VBG pO2 (28-44) mm/Hg VBG HCO3 (22-28) mmol/L VBG Total CO2 (22-29) mmol/L VBG O2 Saturation (70-80) % VBG Base Excess (-3-3) mmol/L Sodium 135 L (136-145) mmol/L Carbon Dioxide (21.0-32.0) mmol/L Anion Gap (3-11) mmol/L Creatinine 0.65 L (0.70-1.30) mg/dL Glucose 199 H D (74-106) mg/dL Calcium (8.5-10.1) mg/dL Vital Signs Temperature 36.6 C 11/14/19 09:29 Temperature Source Tympanic 11/14/19 09:29 Pulse 86 11/14/19 09:29 Pulse Rhythm Regular 11/14/19 11:13 Pulse 86 11/13/19 15:50 Respiratory Rate 20 11/14/19 09:29 Respiratory Effort 11/14/19 11:13 Respiratory Depth Shallow 11/14/19 11:13 Respiratory Pattern Normal 11/14/19 11:13 Blood Pressure 142/94 H 11/14/19 09:29 Blood Pressure Mean 97 11/13/19 15:46 Blood Pressure Position Sitting 11/13/19 10:29 Pulse Oximetry 91 L 11/14/19 10:01 Oxygen Delivery Method Nasal Cannula 11/14/19 10:01 Oxygen Flow Rate 3 11/14/19 10:01 Fraction of Inspired Oxygen (FIO2) 40 11/13/19 12:08 Pain Level 6 11/14/19 04:01 Comment 11/13/19 10:29 Intake & Output 11/13/19 11/14/19 11/14/19 23:59 11:59 23:59 Intake Total 1580 / 1580 2150 / 2150 Output Total 2925 / 2925 2475 / 2475 Balance -1345 / -1345 -325 / -325 Weight 92.5 kg Intake: IV 1100 / 1100 1999 / 1999 Oral 480 / 480 150 / 150 Output: Urine 2925 / 2925 2475 / 2475 Other: Urine Color Yellow Yellow Urine Appearance Clear Clear Urine Odor None Voiding Methods Urinal Urinal Laboratory Results WBC 9.61 k/cumm (4.4-10.8) 11/14/19 07:00 RBC 5.04 m/cumm (4.50-6.00) 11/14/19 07:00 Hgb 17.1 g/dL (13.5-17.5) 11/14/19 07:00 Hct 48.1 % (40.0-50.0) 11/14/19 07:00 MCV 95.4 fL (80-95) H D 11/14/19 07:00 MCH 33.9 pg (27.0-33.0) H 11/14/19 07:00 MCHC 35.6 g/dL (32.0-36.0) 11/14/19 07:00 RDW 12.9 % (11.8-14.1) 11/14/19 07:00 Plt Count 160 x1000/uL (130-400) 11/14/19 07:00 MPV 9.7 fL (8.0-11.0) 11/14/19 07:00 Immature Gran % 0.4 % 11/13/19 12:26 Neutrophils % 45.5 11/13/19 12:26 Lymphocytes % 39.9 11/13/19 12:26 Monocytes % 10.4 11/13/19 12:26 Eosinophils % 3.7 11/13/19 12:26 Basophils % 0.1 11/13/19 12:26 Absolute Neutrophils 4.31 k/cumm (1.2-6.7) 11/13/19 12:26 Absolute Lymphocytes 3.78 k/cumm (1.2-3.4) H 11/13/19 12:26 Absolute Monocytes 0.99 k/cumm (0.11-0.7) H 11/13/19 12:26 Absolute Eosinophils 0.35 k/cumm (0.0-0.7) 11/13/19 12:26 Absolute Basophils 0.01 k/cumm (0.0-0.2) 11/13/19 12:26 D-Dimer 430 ng/mlFEU (<500) 11/13/19 12:26 ABG Sample Site Cancelled 11/13/19 11:07 ABG pH Cancelled 11/13/19 11:07 ABG pCO2 Cancelled 11/13/19 11:07 ABG pO2 Cancelled 11/13/19 11:07 ABG HCO3 Cancelled 11/13/19 11:07 ABG Total CO2 Cancelled 11/13/19 11:07 ABG O2 Saturation Cancelled 11/13/19 11:07 ABG Base Excess Cancelled 11/13/19 11:07 VBG pH 7.37 (7.35-7.45) 11/13/19 12:26 VBG pCO2 60 mm/Hg (34-47) H 11/13/19 12:26 VBG pO2 53 mm/Hg (28-44) H 11/13/19 12:26 VBG HCO3 35 mmol/L (22-28) H 11/13/19 12:26 VBG Total CO2 30 mmol/L (22-29) H 11/13/19 12:26 VBG O2 Saturation 88 % (70-80) H 11/13/19 12:26 VBG Base Excess 9.1 mmol/L (-3-3) H 11/13/19 12:26 Oxygen Liter Flow Cancelled 11/13/19 11:07 FiO2 Cancelled 11/13/19 11:07 Sodium 135 mmol/L (136-145) L 11/14/19 07:00 Potassium 4.4 mmol/L (3.5-5.1) 11/14/19 07:00 Chloride 102 mmol/L (98-107) 11/14/19 07:00 Carbon Dioxide 24.4 mmol/L (21.0-32.0) 11/14/19 07:00 Anion Gap 8.6 mmol/L (3-11) 11/14/19 07:00 BUN 14 mg/dL (7-18) 11/14/19 07:00 Creatinine 0.65 mg/dL (0.70-1.30) L 11/14/19 07:00 Estimated GFR/1.73 m2 >= 60.00 (mL/min/1.73m2) 11/14/19 07:00 Glucose 199 mg/dL (74-106) H D 11/14/19 07:00 Calcium 8.5 mg/dL (8.5-10.1) 11/14/19 07:00 Magnesium 2.3 mg/dL (1.8-2.4) 11/13/19 12:26 Total Bilirubin 0.2 mg/dL (0.2-1.0) 11/13/19 12:26 AST 26 U/L (15-37) 11/13/19 12:26 ALT 55 U/L (16-63) 11/13/19 12:26 Alkaline Phosphatase 52 U/L (46-116) 11/13/19 12:26 Troponin I < 0.05 ng/mL (<0.06) 11/13/19 12:26 Total Protein 6.6 g/dL (6.4-8.2) 11/13/19 12:26 Albumin 3.4 g/dL (3.4-5.0) 11/13/19 12:26 COVID-19 PCR Negative (Negative) 11/13/19 11:49 Nasopharyn COVID-19 PCR Not Applicable 11/13/19 11:49 Ref Test Perform Site [facility] lab 11/13/19 11:49
[2019-11-14] MEDS: Acetaminophen 325 MG TAB PO ×2 (12:58→18:24)
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
[2019-11-14] MEDS: Albuterol HFA 18 GM 200 PUFF INH IH (15:56)
[2019-11-14] MEDS: Nicotine 14 MG/24 HR PATCH TD (18:24)
[2019-11-14] MEDS: busPIRone 5 MG TAB PO (19:45)
[2019-11-14] MEDS: QUEtiapine 300 MG TAB PO (19:50)
[2019-11-14] MEDS: Zonisamide 100 MG CAP 200 MG PO (21:09)
[2019-11-15] VITALS (14 sets, daily range): BP systolic 129–164; BP diastolic 72–85; PULSE 96–127; RESP 2–23; TEMP 36.3–38.4; O2SAT 91–97
--- NOTE | 2019-11-15 | RT.EKG_ITS ---
APPROVED REPORT Exam: Resting ECG Patient Location: I HR:94 bpm ECG Measurements Heart Rate 94 AXIS UT 144 P 69 QRSd 91 QRS 78 QT 353 T 34 QTc 441 <Conclusion> Sinus rhythm...normal P axis, V-rate 60- 99
[2019-11-15] MEDS: Albuterol/Ipratropium 3 ML UPD VIAL UPD ×4 (00:39→21:43)
[2019-11-15] MEDS: Enoxaparin 40 MG/0.4 ML SYR SC ×2 (00:39→23:54)
[2019-11-15] MEDS: methylPREDNISolone SUCC 125 MG VIAL 80 MG IVP ×3 (01:25→17:10)
[2019-11-15] MEDS: Normal Saline 1,000 ML 150 ML IV (02:34)
[2019-11-15] MEDS: Albuterol HFA 18 GM 200 PUFF INH IH ×3 (02:58→07:52)
[2019-11-15] MEDS: LORazepam 1 MG TAB 2 MG PO ×4 (03:07→20:33)
[2019-11-15] MEDS: DOXYCYCLINE 100 MG in Normal Saline 100 ML IVPB (03:10)
[2019-11-15 07:46] LABS: Abs Immature Grans 0.16 k/cumm (0.0-0.09); Absolute Basophil Count 0.01 k/cumm (0.0-0.2); Absolute Monocyte Count 0.77 k/cumm (0.11-0.7); Absolute Neutrophil Count 11.59 k/cumm (1.2-6.7); Basophils % 0.1; HCT 47.9 % (40.0-50.0); HGB 16.1 g/dL (13.5-17.5); Immature Grans % 1.2 %; Lymphocytes % 5.3; Mean Corp. HGB Concentration 33.6 g/dL (32.0-36.0); Mean Corpuscular Hemoglobin 32.6 pg (27.0-33.0); Mean Platelet Volume 10.4 fL (8.0-11.0); Monocytes % 5.8; Neutrophils % 87.6; Platelet Count 192 x1000/uL (130-400); RBC 4.94 m/cumm (4.50-6.00); RBC Distribution Width 13.3 % (11.8-14.1); White Blood Cell Count 13.23 k/cumm (4.4-10.8)
[2019-11-15] MEDS: Budesonide/Formoterol 80/4.5 6.9 GM 60 PUFF INH IH ×2 (07:47→20:35)
[2019-11-15 07:53] LABS: Anion Gap 8.5 mmol/L (3-11); BUN 13 mg/dL (7-18); CO2 26.5 mmol/L (21.0-32.0); CREATININE 0.65 mg/dL (0.70-1.30); Calcium 8.1 mg/dL (8.5-10.1); Chloride 105 mmol/L (98-107); Glucose 126 mg/dL (74-106); Magnesium 2.2 mg/dL (1.8-2.4); Potassium 3.6 mmol/L (3.5-5.1); Sodium 140 mmol/L (136-145)
[2019-11-15] MEDS: Acetaminophen 325 MG TAB PO ×3 (08:02→23:54)
[2019-11-15] MEDS: Thiamine 100 MG TAB PO (08:02)
[2019-11-15] MEDS: Multivitamin TAB 1 TAB PO (08:02)
[2019-11-15] MEDS: Pantoprazole 40 MG TABCR PO (08:03)
[2019-11-15] MEDS: busPIRone 5 MG TAB PO ×2 (08:04→20:29)
[2019-11-15] MEDS: amLODIPine 10 MG TAB PO (08:04)
[2019-11-15] MEDS: Ibuprofen 400 MG TAB PO ×2 (08:04→15:07)
[2019-11-15] MEDS: Pregabalin 100 MG CAP 200 MG PO ×3 (08:05→20:29)
[2019-11-15] MEDS: guaiFENesin/CODEINE PHOSPHATE 10 ML CUP PO ×3 (08:05→20:29)
[2019-11-15] MEDS: Benzonatate 200 MG CAP PO ×3 (08:05→20:29)
[2019-11-15] MEDS: guaiFENesin 600 MG TABCR PO ×2 (08:05→20:29)
[2019-11-15] MEDS: Methadone Liquid 10 MG/ML 132 MG PO (08:10)
--- NOTE | 2019-11-15 09:22 | PDOC.CMPRO ---
- If Service Date Differs Date of service: 11/15/19 Time of Service: 09:22 Care Management Progress Note S/O: Garret remains inpatient today, receiving IV abx and steroids. CM faxed referral to [facility] for support in the community, he will need a last dose letter for [facility] at time of discharge. He will also need a RCT ride coordinated to return to [place] where his home is. Garret would like new housing however he will need to work with community agencies to assist with that task. A:Garret is a 44 year old male admitted with COPD and pneumonia P:Garret will be discharged home when medically ready. He will have a referral to [facility] and [facility]. RCT for transportation home. Last dose letter. CM will continue to assess for ongoing needs and discharge planning.
[2019-11-15 09:45] LABS: BE -0.3 mmol/L (-3-3); HCO3 24 mmol/L (22-28); pCO2 39 mmHg (34-47); pO2 63 mmHg (83-108); sO2 93 % (94-98); tCO2 21 mmol/L (22-29)
[2019-11-15 09:46] LABS: Site Right Radial
[2019-11-15 09:47] LABS: FIO2 21 %
[2019-11-15 10:20] LABS: Troponin I < 0.05 ng/mL (<0.06)
--- NOTE | 2019-11-15 12:23 | W.NUTRFU ---
Date of service: 11/15/19 Time of Service: 12:23 Nutritional Follow up NOTE: 44 year old male admitted with chronic respiratory failure (requires O2). BMI indicates obesity. Following Regular diet with adequate intake. Not at risk for nutritional decline at this time. Time Spent in Nutritional Counseling and Treatment: 0
[2019-11-15] MEDS: QUEtiapine 25 MG TAB PO (14:44)
--- NOTE | 2019-11-15 15:39 | PGE_ITS ---
Date of Service Date of service: 11/15/19 Time of Service: 15:39 Assessment and Plan Assessment and plan (1) End stage COPD: Status: Chronic (2) Acute and chronic respiratory failure ([id number]): Start date: 11/15/19 Start time: 15:45 Status: Acute Assessment and plan: Palliative suggest buspar, started on BID dosing. Severe anxiety, added seroquel BID with HS dosing for anxiety, continue ativan, low dose oral morphine for chest tightness, Febrile this afternoon, Leukocytosis however on high dose steroids. BC NGTD. Switch antbx to levaquin from doxy C/o chest tightness, work of breathing this am. See note for details. (3) Opiate dependence: Start date: 11/15/19 Start time: 16:03 Status: Acute Assessment and plan: Continue methadone dosing verified by previous provider (4) HTN (hypertension): Start date: 11/15/19 Start time: 16:03 Status: Chronic Assessment and plan: has not filled lisinopril for months so will not resume now. will monitor (5) Tobacco abuse: Start date: 11/15/19 Start time: 16:04 Status: Acute Assessment and plan: nicotine patch Continues to smoke on oxygen at home (6) Depression: Start date: 11/15/19 Start time: 16:04 Status: Chronic Assessment and plan: not compliant with all meds on list, only filling lyrica and seroquel. lorazepam prn (7) Hepatitis C: Start date: 11/15/19 Start time: 16:05 Status: Chronic Assessment and plan: Managed as outpatient by Dr. Galvan (8) Seizure disorder: Start date: 11/15/19 Start time: 16:06 Status: Chronic Assessment and plan: Continue outpatient medication (9) DVT prophylaxis: Start date: 11/15/19 Start time: 16:04 Status: Acute Assessment and plan: enoxaparin daily, teds and scd (10) Discharge planning issues: Start date: 11/15/19 Start time: 16:04 Status: Acute Assessment and plan: home when medically stable discussed with DR jasso who is in agreement Subjective Subjective Patient reports: shortness of breath and other Interval history since last seen: Not doing well today, severely anxious, with poor areation and wheezing throughout this morning. He was given continuous nebs and placed on biapap. He continues to take off bipap and states he can not breath. He is severely anxious scheduled seroquel, ativan prn, buspar BID, morphine solution for chest tightness and breathing. He was afebrile this afternoon will change antbx to levaquin, BC with NGTD, his lungs sound improved this afternoon from this am but he appears more anxious. This patient would likely do well with trilogy machine. Exam Narrative Exam Narrative: GEN: awake, alert, oriented 3. older appearing that stated age, sunny complexion. HEAD: Normocephalic, atraumatic ENT: Mucous membranes dry, oropharynx no exudate, EYES: PERRL, EOMI NECK: supple RESP: Nontender, diminished throughout, insp and exp wheeze throught out bilateral lung henriquez improved this afternoon. poor aeration CARDIOVASCULAR: RRR ABDOMEN: Soft, nontender. +Bowel sounds EXT: Full ROM, right below the knee amputation, trace left Neuro: awake and alert, grossly normal neurologic exam Psych: Speech fluent, thoughts congruent, flat affect Objective Objective Clinical Data: Abnormal lab results 11/15/19 11/15/19 11/15/19 Range/Units 07:13 07:13 09:40 WBC 13.23 H D (4.4-10.8) k/cumm MCV 97.0 H (80-95) fL Absolute Neutrophils 11.59 H (1.2-6.7) k/cumm Absolute Lymphocytes 0.70 L (1.2-3.4) k/cumm Absolute Monocytes 0.77 H (0.11-0.7) k/cumm ABG pO2 63 L (83-108) mmHg ABG Total CO2 21 L (22-29) mmol/L ABG O2 Saturation 93 L (94-98) % Creatinine 0.65 L (0.70-1.30) mg/dL Glucose 126 H (74-106) mg/dL Calcium 8.1 L (8.5-10.1) mg/dL Vital Signs Temperature 38.4 C H 11/15/19 13:47 Temperature Source Tympanic 11/15/19 13:47 Pulse 127 H 11/15/19 13:47 Pulse Rhythm Regular 11/15/19 08:18 Pulse 86 11/13/19 15:50 Respiratory Rate 19 11/15/19 13:47 Respiratory Effort 11/15/19 08:18 Respiratory Depth Normal 11/15/19 08:18 Respiratory Pattern Normal 11/15/19 08:18 Blood Pressure 129/72 11/15/19 13:47 Blood Pressure Mean 97 11/13/19 15:46 Blood Pressure Position Sitting 11/13/19 10:29 Pulse Oximetry 92 L 11/15/19 13:47 Oxygen Delivery Method Room Air 11/15/19 13:47 Oxygen Flow Rate 0 11/15/19 13:47 Fraction of Inspired Oxygen (FIO2) 30 11/15/19 11:33 Pain Level 10 11/14/19 18:24 Comment 11/14/19 15:42 Intake & Output 11/14/19 11/15/19 11/15/19 23:59 11:59 23:59 Intake Total 2580 / 4880 2370 / 2570 200 / 2570 Output Total 1350 / 3825 1750 / 1875 125 / 1875 Balance 1230 / 1055 620 / 695 75 / 695 Intake: IV 2100 / 4250 2009 Oral 480 / 630 360 / 560 200 / 560 Output: Urine 1350 / 3825 1750 / 1875 125 / 1875 Other: Urine Color Yellow Straw Light Alix Urine Appearance Clear Clear Urine Odor None Normal Voiding Methods Urinal Urinal Urinal Laboratory Results WBC 13.23 k/cumm (4.4-10.8) H D 11/15/19 07:13 RBC 4.94 m/cumm (4.50-6.00) 11/15/19 07:13 Hgb 16.1 g/dL (13.5-17.5) 11/15/19 07:13 Hct 47.9 % (40.0-50.0) 11/15/19 07:13 MCV 97.0 fL (80-95) H 11/15/19 07:13 MCH 32.6 pg (27.0-33.0) 11/15/19 07:13 MCHC 33.6 g/dL (32.0-36.0) 11/15/19 07:13 RDW 13.3 % (11.8-14.1) 11/15/19 07:13 Plt Count 192 x1000/uL (130-400) 11/15/19 07:13 MPV 10.4 fL (8.0-11.0) 11/15/19 07:13 Immature Gran % 1.2 % 11/15/19 07:13 Neutrophils % 87.6 11/15/19 07:13 Lymphocytes % 5.3 11/15/19 07:13 Monocytes % 5.8 11/15/19 07:13 Eosinophils % 0.0 11/15/19 07:13 Basophils % 0.1 11/15/19 07:13 Absolute Neutrophils 11.59 k/cumm (1.2-6.7) H 11/15/19 07:13 Absolute Lymphocytes 0.70 k/cumm (1.2-3.4) L 11/15/19 07:13 Absolute Monocytes 0.77 k/cumm (0.11-0.7) H 11/15/19 07:13 Absolute Eosinophils 0.00 k/cumm (0.0-0.7) 11/15/19 07:13 Absolute Basophils 0.01 k/cumm (0.0-0.2) 11/15/19 07:13 D-Dimer 430 ng/mlFEU (<500) 11/13/19 12:26 ABG Sample Site Right radial 11/15/19 09:40 ABG pH 7.40 (7.35-7.45) 11/15/19 09:40 ABG pCO2 39 mmHg (34-47) 11/15/19 09:40 ABG pO2 63 mmHg (83-108) L 11/15/19 09:40 ABG HCO3 24 mmol/L (22-28) 11/15/19 09:40 ABG Total CO2 21 mmol/L (22-29) L 11/15/19 09:40 ABG O2 Saturation 93 % (94-98) L 11/15/19 09:40 ABG Base Excess -0.3 mmol/L (-3-3) 11/15/19 09:40 VBG pH 7.37 (7.35-7.45) 11/13/19 12:26 VBG pCO2 60 mm/Hg (34-47) H 11/13/19 12:26 VBG pO2 53 mm/Hg (28-44) H 11/13/19 12:26 VBG HCO3 35 mmol/L (22-28) H 11/13/19 12:26 VBG Total CO2 30 mmol/L (22-29) H 11/13/19 12:26 VBG O2 Saturation 88 % (70-80) H 11/13/19 12:26 VBG Base Excess 9.1 mmol/L (-3-3) H 11/13/19 12:26 Oxygen Liter Flow Cancelled 11/13/19 11:07 FiO2 21 % 11/15/19 09:40 Sodium 140 mmol/L (136-145) 11/15/19 07:13 Potassium 3.6 mmol/L (3.5-5.1) 11/15/19 07:13 Chloride 105 mmol/L (98-107) 11/15/19 07:13 Carbon Dioxide 26.5 mmol/L (21.0-32.0) 11/15/19 07:13 Anion Gap 8.5 mmol/L (3-11) 11/15/19 07:13 BUN 13 mg/dL (7-18) 11/15/19 07:13 Creatinine 0.65 mg/dL (0.70-1.30) L 11/15/19 07:13 Estimated GFR/1.73 m2 >= 60.00 (mL/min/1.73m2) 11/15/19 07:13 Glucose 126 mg/dL (74-106) H 11/15/19 07:13 Calcium 8.1 mg/dL (8.5-10.1) L 11/15/19 07:13 Magnesium 2.2 mg/dL (1.8-2.4) 11/15/19 07:13 Total Bilirubin 0.2 mg/dL (0.2-1.0) 11/13/19 12:26 AST 26 U/L (15-37) 11/13/19 12:26 ALT 55 U/L (16-63) 11/13/19 12:26 Alkaline Phosphatase 52 U/L (46-116) 11/13/19 12:26 Troponin I < 0.05 ng/mL (<0.06) 11/15/19 09:52 Total Protein 6.6 g/dL (6.4-8.2) 11/13/19 12:26 Albumin 3.4 g/dL (3.4-5.0) 11/13/19 12:26 COVID-19 PCR Negative (Negative) 11/13/19 11:49 Nasopharyn COVID-19 PCR Not Applicable 11/13/19 11:49 Ref Test Perform [facility] 11/13/19 11:49
--- NOTE | 2019-11-15 15:48 | PHA.REVIEW ---
Pharmacy Admission Review - Admission Clinical Review (Last Updated 11/14/19 @ 15:32 by Rae Correa MD) Tobacco abuse (Acute) Acute and chronic respiratory failure ([id number]) (Acute) Pneumonia (Acute) Discharge planning issues (Acute) DVT prophylaxis (Acute) Opiate dependence (Acute) Penicillins Allergy (Severe, Unverified 11/13/19 12:56) Anaphylaxsis prednisone Adverse Reaction (Severe, Uncoded 11/14/19 15:31) anxiety and tremor Height 5 ft 9 in Weight 92.5 kg - Renal Dosing Renal Dosing: BUN 13 mg/dL (7-18) 11/15/19 07:13 Creatinine 0.65 mg/dL (0.70-1.30) L 11/15/19 07:13 Medications needing adjustments: Reviewed - Anticoagulation Anticoagulation: Hgb 16.1 g/dL (13.5-17.5) 11/15/19 07:13 Hct 47.9 % (40.0-50.0) 11/15/19 07:13 Plt Count 192 x1000/uL (130-400) 11/15/19 07:13 Creatinine 0.65 mg/dL (0.70-1.30) L 11/15/19 07:13 DVT Prohphylaxis: N/A Therapeutic Anticoagulation: N/A - Opiate Usage Evaluate Pain Scale/Pains Meds: Reviewed Scheduled Bowel Reg ordered if on Opiates?: No (NOTIFY , monitor for BM) - Relevant Labs Sodium 140 mmol/L (136-145) 11/15/19 07:13 Potassium 3.6 mmol/L (3.5-5.1) 11/15/19 07:13 Chloride 105 mmol/L (98-107) 11/15/19 07:13 Magnesium 2.2 mg/dL (1.8-2.4) 11/15/19 07:13 Electrolytes, C-Reactive P, ESR: Reviewed - DM Control DM Control: Glucose 126 mg/dL (74-106) H 11/15/19 07:13 Insulin Dosing: Reviewed - Heart Failure/CO Heart Failure/CO: Troponin I < 0.05 ng/mL (<0.06) 11/15/19 09:52 EF%, BEATRIZ's, B-Blockers, Diuretics: Reviewed - BP Control BP Control: Blood Pressure 159/74 Blood Pressure 129/72 If elevated: Reviewed - Qtc Review If Elevated: Reviewed (QTc 441) - Home Meds Home Med List reviewed: Intervened Relevent Home Meds Not ordered & why?: Notified MD about some discrepencies and issues of non-compliance; cleaned up med list after consulting with pt's PCP and pharmacy; confirmed methadone dosing with [facility]; made some recommendations to restart some home meds pt hasn't filled in awhile - Current meds Current Medication Order Review: Reviewed
[2019-11-15] MEDS: Nicotine 14 MG/24 HR PATCH TD (17:08)
[2019-11-15] MEDS: levoFLOXacin 750 MG/150 ML BAG 100 MG IVPB (17:13)
[2019-11-15] MEDS: QUEtiapine 300 MG TAB PO (21:39)
[2019-11-15] MEDS: Zonisamide 100 MG CAP 200 MG PO (21:39)
[2019-11-16] VITALS (16 sets, daily range): BP systolic 145–168; BP diastolic 73–87; PULSE 92–122; RESP 1–22; TEMP 36.3–37.8; O2SAT 90–100
--- NOTE | 2019-11-16 | DI.RAD_ITS ---
EXAM: XR CHEST 2V PA LATERAL CLINICAL HISTORY: fever TECHNIQUE: 2D digital imaging was performed. COMPARISON: CR XR PORTABLE CHEST AP from 11/13/2019 FINDINGS: MEDIASTINUM: Normal. HEART: Normal. PULMONARY VASCULATURE: Normal. LUNGS: Improved opacities are seen in the right lung base compared to 11/13/2019 there is a new opacit y in the left mid lung. However, overall the infiltrates in the left lung appear improved. PLEURAL SPACE: No pleural effusion or pneumothorax. BONE:Stable degenerative changes. OTHER FINDINGS:Normal. IMPRESSION: Overall, there appears to be a slight improvement in the opacities in the lungs since 11/13/2019. DATA REPOSITORY: RADIATION DOSE DELIVERED:
[2019-11-16] MEDS: Albuterol/Ipratropium 3 ML UPD VIAL UPD ×8 (00:52→21:20)
[2019-11-16] MEDS: methylPREDNISolone SUCC 125 MG VIAL 80 MG IVP (02:24)
[2019-11-16] MEDS: Normal Saline Flush 10 ML SYR IVP (02:25)
[2019-11-16] MEDS: LORazepam 1 MG TAB 2 MG PO ×4 (04:35→20:25)
[2019-11-16] MEDS: Budesonide/Formoterol 80/4.5 6.9 GM 60 PUFF INH IH ×2 (07:29→21:19)
[2019-11-16 07:45] LABS: Abs Immature Grans 0.17 k/cumm (0.0-0.09); Absolute Neutrophil Count 11.35 k/cumm (1.2-6.7); HCT 46.2 % (40.0-50.0); HGB 15.7 g/dL (13.5-17.5); Immature Grans % 1.3 %; Lymphocytes % 6.1; Mean Corpuscular Hemoglobin 33.3 pg (27.0-33.0); Mean Corpuscular Volume 98.1 fL (80-95); Mean Platelet Volume 9.9 fL (8.0-11.0); Monocytes % 6.2; Neutrophils % 86.4; Platelet Count 190 x1000/uL (130-400); RBC 4.71 m/cumm (4.50-6.00); RBC Distribution Width 13.7 % (11.8-14.1); White Blood Cell Count 13.14 k/cumm (4.4-10.8)
[2019-11-16 07:46] LABS: Absolute Monocyte Count 0.81 k/cumm (0.11-0.7)
[2019-11-16 07:51] LABS: BUN 15 mg/dL (7-18); CREATININE 0.73 mg/dL (0.70-1.30); Calcium 8.4 mg/dL (8.5-10.1); Chloride 105 mmol/L (98-107); Glucose 196 mg/dL (74-106); Potassium 3.5 mmol/L (3.5-5.1); Sodium 139 mmol/L (136-145)
[2019-11-16] MEDS: guaiFENesin/CODEINE PHOSPHATE 10 ML CUP PO ×3 (07:51→20:25)
[2019-11-16] MEDS: Thiamine 100 MG TAB PO (07:52)
[2019-11-16] MEDS: Benzonatate 200 MG CAP PO ×3 (07:52→20:43)
[2019-11-16] MEDS: Acetaminophen 325 MG TAB PO (07:52)
[2019-11-16] MEDS: Multivitamin TAB 1 TAB PO (07:52)
[2019-11-16] MEDS: QUEtiapine 25 MG TAB PO ×2 (07:52→14:30)
[2019-11-16] MEDS: guaiFENesin 600 MG TABCR PO ×2 (07:52→20:25)
[2019-11-16] MEDS: Pregabalin 100 MG CAP 200 MG PO ×3 (07:52→20:25)
[2019-11-16] MEDS: busPIRone 5 MG TAB PO ×2 (07:53→20:25)
[2019-11-16] MEDS: amLODIPine 10 MG TAB PO (07:53)
[2019-11-16] MEDS: Pantoprazole 40 MG TABCR PO (07:53)
[2019-11-16] MEDS: Methadone Liquid 10 MG/ML 132 MG PO (08:04)
[2019-11-16 08:38] LABS: Procalcitonin < 0.1 ng/mL
--- NOTE | 2019-11-16 09:13 | DI.VRAD_ITS ---
PROCEDURE INFORMATION: Exam: XR Chest, 2 Views Exam date and time: 11/16/2019 8:59 AM Age: 44 years old Clinical indication: Fever TECHNIQUE: Imaging protocol: XR of the chest Views: 2 views. COMPARISON: CR XR PORTABLE CHEST AP 11/13/2019 12:33 PM FINDINGS: Lungs: Opacities in both bases may represent atelectasis or pneumonia. Pleural space: Unremarkable. No pleural effusion. No pneumothorax. Heart/Mediastinum: Stable cardiac silhouette Bones/joints: Osseous structures are stable IMPRESSION: Opacities in both bases may represent atelectasis or pneumonia. Dictated and Authenticated by: Karoline Edward MD. Ordering:DEVIN Watts MD
--- NOTE | 2019-11-16 13:27 | W.PM.PROGNOT ---
Date of Service Date of service: 11/16/19 Time of Service: 13:27 Assessment and Plan Assessment and plan (1) End stage COPD: Start date: 11/16/19 Start time: 13:33 Status: Chronic Assessment and plan: He would benefit from tirlogy. Received CT scan from [facility] done on 10/16/2019. Impression: no evidence of pulmonary mass, prior granulomatous disease bilateral basilar infiltrates which correspond to CXR, representing, atelectasis or scarring, central lobular and paraseptal emphysema. He is being initiated on PO steroids for remainder of inpatient treatment, likely bronchitis vs pna. See note. Po levaquin day 2, continue Pulmonary toileting. Sputum cx indeterminate Blood culture with NGTD at 48 hours At this time he is saturating on RA anywhere from 92-100% Will do PFT monday (2) Acute and chronic respiratory failure ([id number]): Start date: 11/16/19 Start time: 13:41 Status: Acute Assessment and plan: Appear less anxious today. Continue regimen for anxiety. Concern for drug seeking behavior. He was stating to staff that morphine solution was not working and wanted dilaudid. It was only right after swallowing this medication did he say this per nursing. (3) Opiate dependence: Start date: 11/16/19 Start time: 13:47 Status: Acute Assessment and plan: Continue methadone dosing verified by previous provider (4) HTN (hypertension): Start date: 11/16/19 Start time: 13:48 Status: Chronic Assessment and plan: has not filled lisinopril for months so will not resume now. will monitor (5) Tobacco abuse: Start date: 11/16/19 Start time: 13:48 Status: Acute Assessment and plan: nicotine patch Continues to smoke on oxygen at home HE IS NOT ON TRANSPLANT LIST. (6) Depression: Start date: 11/16/19 Start time: 13:48 Status: Chronic Assessment and plan: not compliant with all meds on list, only filling lyrica and seroquel. lorazepam prn (7) Hepatitis C: Start date: 11/16/19 Start time: 13:49 Status: Chronic Assessment and plan: Managed as outpatient by Dr. Galvan, hep panel, with HCV RNA (8) Seizure disorder: Start date: 11/16/19 Start time: 13:53 Status: Chronic Assessment and plan: Continue outpatient medication (9) DVT prophylaxis: Start date: 11/16/19 Start time: 13:53 Status: Acute Assessment and plan: enoxaparin daily, teds and scd (10) Discharge planning issues: Start date: 11/16/19 Start time: 13:53 Status: Acute Assessment and plan: home when medically stable, continues to require in patient status. discussed with DR Quan who is in agreement Subjective Subjective Patient reports: other Interval history since last seen: He is sitting up in bed on RA at 100% speaking in full sentences. He has been pulling his IV's out per nursing and also stated to evening nurse yesterday he likes pulling them out because he enjoys the feeling when they are reinserted, this is a infectious disease risk that he continues to pull them out there fore all meds are now PO and at this time unless needed I would not advise IV insertion. He has very poor behavior, he is demanding towards and is not always willing to cooperate with treatment plans. Exam Narrative Exam Narrative: GEN: awake, alert, oriented 3. older appearing that stated age, sunny complexion. HEAD: Normocephalic, atraumatic ENT: Mucous membranes dry, oropharynx no exudate, EYES: PERRL, EOMI NECK: supple RESP: Nontender, diminished throughout, Improving lung sounds. Air movement throughout all lung henriquez. a few scattered wheezes with expiration CARDIOVASCULAR: RRR ABDOMEN: Soft, nontender. +Bowel sounds EXT: Full ROM, right below the knee amputation, trace left Neuro: awake and alert, grossly normal neurologic exam Psych: Speech fluent, thoughts congruent, flat affect Objective Objective Clinical Data: Abnormal lab results 11/16/19 11/16/19 Range/Units 07:15 07:15 WBC 13.14 H (4.4-10.8) k/cumm MCV 98.1 H (80-95) fL MCH 33.3 H (27.0-33.0) pg Absolute Neutrophils 11.35 H (1.2-6.7) k/cumm Absolute Lymphocytes 0.80 L (1.2-3.4) k/cumm Absolute Monocytes 0.81 H (0.11-0.7) k/cumm Glucose 196 H (74-106) mg/dL Calcium 8.4 L (8.5-10.1) mg/dL Vital Signs Temperature 37.8 C H 11/16/19 07:52 Temperature Source Temporal Artery Scan 11/16/19 07:50 Pulse 118 H 11/16/19 09:18 Pulse Rhythm Regular 11/16/19 04:55 Pulse 86 11/13/19 15:50 Respiratory Rate 20 11/16/19 09:18 Respiratory Effort Non-Labored 11/16/19 04:55 Respiratory Depth Normal 11/16/19 04:55 Respiratory Pattern Normal 11/16/19 04:55 Blood Pressure 150/76 H 11/16/19 07:50 Blood Pressure Mean 97 11/13/19 15:46 Blood Pressure Position Sitting 11/13/19 10:29 Pulse Oximetry 100 11/16/19 09:18 Oxygen Delivery Method Room Air 11/16/19 09:15 Oxygen Flow Rate 0 11/16/19 09:15 Fraction of Inspired Oxygen (FIO2) 30 11/16/19 09:24 Pain Level 10 11/16/19 12:49 Comment 11/14/19 15:42 Intake & Output 11/15/19 11/16/19 11/16/19 23:59 11:59 23:59 Intake Total 1280 / 3650 210 / 210 Output Total 575 / 2325 1125 / 1125 Balance 705 / 1325 -915 / -915 Intake: IV 160 / 2170 10 / 10 Oral 1120 / 1480 200 / 200 Output: Urine 575 / 2325 1125 / 1125 Other: Urine Color Straw Yellow Urine Appearance Clear Clear Urine Odor Normal Voiding Methods Urinal Urinal Laboratory Results WBC 13.14 k/cumm (4.4-10.8) H 11/16/19 07:15 RBC 4.71 m/cumm (4.50-6.00) 11/16/19 07:15 Hgb 15.7 g/dL (13.5-17.5) 11/16/19 07:15 Hct 46.2 % (40.0-50.0) 11/16/19 07:15 MCV 98.1 fL (80-95) H 11/16/19 07:15 MCH 33.3 pg (27.0-33.0) H 11/16/19 07:15 MCHC 34.0 g/dL (32.0-36.0) 11/16/19 07:15 RDW 13.7 % (11.8-14.1) 11/16/19 07:15 Plt Count 190 x1000/uL (130-400) 11/16/19 07:15 MPV 9.9 fL (8.0-11.0) 11/16/19 07:15 Immature Gran % 1.3 % 11/16/19 07:15 Neutrophils % 86.4 11/16/19 07:15 Lymphocytes % 6.1 11/16/19 07:15 Monocytes % 6.2 11/16/19 07:15 Eosinophils % 0.0 11/16/19 07:15 Basophils % 0.0 11/16/19 07:15 Absolute Neutrophils 11.35 k/cumm (1.2-6.7) H 11/16/19 07:15 Absolute Lymphocytes 0.80 k/cumm (1.2-3.4) L 11/16/19 07:15 Absolute Monocytes 0.81 k/cumm (0.11-0.7) H 11/16/19 07:15 Absolute Eosinophils 0.00 k/cumm (0.0-0.7) 11/16/19 07:15 Absolute Basophils 0.00 k/cumm (0.0-0.2) 11/16/19 07:15 D-Dimer 430 ng/mlFEU (<500) 11/13/19 12:26 ABG Sample Site Right radial 11/15/19 09:40 ABG pH 7.40 (7.35-7.45) 11/15/19 09:40 ABG pCO2 39 mmHg (34-47) 11/15/19 09:40 ABG pO2 63 mmHg (83-108) L 11/15/19 09:40 ABG HCO3 24 mmol/L (22-28) 11/15/19 09:40 ABG Total CO2 21 mmol/L (22-29) L 11/15/19 09:40 ABG O2 Saturation 93 % (94-98) L 11/15/19 09:40 ABG Base Excess -0.3 mmol/L (-3-3) 11/15/19 09:40 VBG pH 7.37 (7.35-7.45) 11/13/19 12:26 VBG pCO2 60 mm/Hg (34-47) H 11/13/19 12:26 VBG pO2 53 mm/Hg (28-44) H 11/13/19 12:26 VBG HCO3 35 mmol/L (22-28) H 11/13/19 12:26 VBG Total CO2 30 mmol/L (22-29) H 11/13/19 12:26 VBG O2 Saturation 88 % (70-80) H 11/13/19 12:26 VBG Base Excess 9.1 mmol/L (-3-3) H 11/13/19 12:26 Oxygen Liter Flow Cancelled 11/13/19 11:07 FiO2 21 % 11/15/19 09:40 Sodium 139 mmol/L (136-145) 11/16/19 07:15 Potassium 3.5 mmol/L (3.5-5.1) 11/16/19 07:15 Chloride 105 mmol/L (98-107) 11/16/19 07:15 Carbon Dioxide 27.0 mmol/L (21.0-32.0) 11/16/19 07:15 Anion Gap 7.0 mmol/L (3-11) 11/16/19 07:15 BUN 15 mg/dL (7-18) 11/16/19 07:15 Creatinine 0.73 mg/dL (0.70-1.30) 11/16/19 07:15 Estimated GFR/1.73 m2 >= 60.00 (mL/min/1.73m2) 11/16/19 07:15 Glucose 196 mg/dL (74-106) H 11/16/19 07:15 Calcium 8.4 mg/dL (8.5-10.1) L 11/16/19 07:15 Magnesium 2.2 mg/dL (1.8-2.4) 11/15/19 07:13 Total Bilirubin 0.2 mg/dL (0.2-1.0) 11/13/19 12:26 AST 26 U/L (15-37) 11/13/19 12:26 ALT 55 U/L (16-63) 11/13/19 12:26 Alkaline Phosphatase 52 U/L (46-116) 11/13/19 12:26 Troponin I < 0.05 ng/mL (<0.06) 11/15/19 09:52 Total Protein 6.6 g/dL (6.4-8.2) 11/13/19 12:26 Albumin 3.4 g/dL (3.4-5.0) 11/13/19 12:26 Procalcitonin < 0.1 ng/mL 11/16/19 07:15 COVID-19 PCR Negative (Negative) 11/13/19 11:49 Nasopharyn COVID-19 PCR Not Applicable 11/13/19 11:49 Ref Test Perform Site [facility] lab 11/13/19 11:49
[2019-11-16] MEDS: Nicotine 14 MG/24 HR PATCH TD (18:01)
[2019-11-16] MEDS: Dexamethasone 4 MG TAB 20 MG PO (20:25)
--- NOTE | 2019-11-16 20:27 | CMPROGNOTE_ITS ---
- If Service Date Differs Date of service: 11/16/19 Time of Service: 20:27 Care Management Progress Note S/O: Garret remains inpatient today, receiving IV abx and steroids. He continues to have pain in my lungs and also challenges with breathing. Edd has had some fever on and off in the past 24 hours and is a bit tachycardic. RT is working to try to get Garret approved for a Trilogy machine. CM will continue to follow. A:Garret is a 44 year old male admitted with COPD and pneumonia P:Garret will be discharged home when medically ready. He will have a referral to [facility] and [facility]. [facility] for transportation home. Last dose letter. CM will continue to assess for ongoing needs and discharge planning. cc:
[2019-11-16] MEDS: Zonisamide 100 MG CAP 200 MG PO (21:19)
[2019-11-16] MEDS: QUEtiapine 300 MG TAB PO (21:19)
[2019-11-16] MEDS: Ibuprofen 400 MG TAB PO (22:10)
[2019-11-17] VITALS (7 sets, daily range): BP systolic 119–142; BP diastolic 70–90; PULSE 91–123; RESP 4–22; TEMP 35.9–37.3; O2SAT 90–99
[2019-11-17] MEDS: Enoxaparin 40 MG/0.4 ML SYR SC (00:09)
[2019-11-17] MEDS: Albuterol/Ipratropium 3 ML UPD VIAL UPD ×4 (01:01→09:31)
[2019-11-17] MEDS: LORazepam 1 MG TAB 2 MG PO ×3 (03:24→11:34)
--- NOTE | 2019-11-17 03:54 | NUR.NOTE ---
Nursing Note: This scribe was asked to speak with patient as patient was upset with nursing staff due to his inability to get more pain medication. Patient told this scribe that he wanted more pain medication even though he had received PRN MS04 and Lorazepam 20 min prior by his nurse. Patient noted to barely being able to keep his eyes open and slurring speech. Patient stated that he has told this hospital numerous times that morphine does not help me and that Demerol and Dilaudid are the only things that help me, especially Demerol. This scribe discussed the provider's orders and plan for pain management and that he needed to give the medications time to work. The patient stated he wanted to speak to the doctor today about getting an IV inserted and upping his meds. Advised him to speak with his provider today about it. Nursing staff on unit updated.
--- NOTE | 2019-11-17 04:41 | NUR.NOTE ---
Nursing Note: at 2029 of 11/15, pt was insisting for me to serve his MSO4, I explained that the next dose of MSO4 will only be allowed to be served after 3 hours from the last dose, which was 1800 and only can be served at 2100. Pt kept on insisting and mumbling that MSO4 10mg does not help him, why don't he take dilaudid instead? Morphine was served at 2120, but since pt was very clumsy and having tremors, he spilled most of his meds and insisted again for me to serve another dose of Morphine. I explained to him that we just cannot serve another dose of controlled substance pt was angry and i explained to him that I could serve it again if he needs it on another 3 hours' time. At 10pm, pt was not happy and still insisted to get another MSO4, I gave him an option hat if he is still in pain, the only thing I could serve is Motrin or Tylenol, which he agreed for Motrin, Motrin 400mg PO was given at 10pm. At 12 MN MSO4 was served since pt asked for it and at 230am, wanted another dose of MSO4 and explained to him that he can have it only at 3am. He still insisted to get his Morphine and now he wants it together with Ativan for his anxiety. At 320am, I gave him another dose of Morphine and Ativan as he requested he took it, but he was also looking dose of Seroquel 25 mg. which was scheduled in the morning. I again explained to him that Seroquel 25 mg is scheduled at 830 am and 2pm, and I have just given him a dose of Seroquel 300 mg at 10pm. Pt became very frustrated and said that I am making up the schedule of his meds and who will serve seroquel at 830 in the morning?I again explained to him the order of the doctor regarding the timing and dosing of Seroquel but pt is not listening. he verbalized that he wants his nurse to be changed and I informed the charge nurse about it.
[2019-11-17] MEDS: Methadone Liquid 10 MG/ML 132 MG PO (07:37)
[2019-11-17] MEDS: Pregabalin 100 MG CAP 200 MG PO (07:38)
[2019-11-17] MEDS: QUEtiapine 25 MG TAB PO (07:38)
[2019-11-17] MEDS: Multivitamin TAB 1 TAB PO (07:38)
[2019-11-17] MEDS: Dexamethasone 4 MG TAB 20 MG PO (07:38)
[2019-11-17] MEDS: guaiFENesin/CODEINE PHOSPHATE 10 ML CUP PO (07:38)
[2019-11-17] MEDS: guaiFENesin 600 MG TABCR PO (07:39)
[2019-11-17] MEDS: Benzonatate 200 MG CAP PO (07:39)
[2019-11-17] MEDS: amLODIPine 10 MG TAB PO (07:39)
[2019-11-17] MEDS: busPIRone 5 MG TAB PO (07:39)
[2019-11-17] MEDS: Pantoprazole 40 MG TABCR PO (07:39)
[2019-11-17] MEDS: Acetaminophen 325 MG TAB PO (07:39)
[2019-11-17] MEDS: Thiamine 100 MG TAB PO (07:39)
[2019-11-17 07:41] LABS: Abs Immature Grans 0.23 k/cumm (0.0-0.09); Absolute Basophil Count 0.01 k/cumm (0.0-0.2); Absolute Eosinophil Count 0.01 k/cumm (0.0-0.7); Absolute Lymphocyte Count 0.77 k/cumm (1.2-3.4); Absolute Monocyte Count 0.55 k/cumm (0.11-0.7); Absolute Neutrophil Count 10.63 k/cumm (1.2-6.7); Basophils % 0.1; Eosinophils % 0.1; HCT 46.4 % (40.0-50.0); HGB 15.6 g/dL (13.5-17.5); Immature Grans % 1.9 %; Lymphocytes % 6.3; Mean Corp. HGB Concentration 33.6 g/dL (32.0-36.0); Mean Corpuscular Hemoglobin 33.2 pg (27.0-33.0); Mean Corpuscular Volume 98.7 fL (80-95); Monocytes % 4.5; Neutrophils % 87.1; Platelet Count 189 x1000/uL (130-400); RBC Distribution Width 13.9 % (11.8-14.1)
[2019-11-17] MEDS: Budesonide/Formoterol 80/4.5 6.9 GM 60 PUFF INH IH (07:59)
[2019-11-17 08:02] LABS: BUN 17 mg/dL (7-18); CREATININE 0.84 mg/dL (0.70-1.30); Calcium 8.1 mg/dL (8.5-10.1); Chloride 104 mmol/L (98-107); Glucose 223 mg/dL (74-106); Potassium 3.5 mmol/L (3.5-5.1); Sodium 139 mmol/L (136-145)
[2019-11-17] MEDS: Potassium Chloride 20 MEQ TABCR 40 MEQ PO (09:17)
[2019-11-17] MEDS: levoFLOXacin 500 MG, levoFLOXacin 250 MG 750 MG PO (09:50)
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
--- NOTE | 2019-11-17 10:38 | RESPIRATORY ---
Pt has reported that he uses up to 3L O2 via Nasal Cannula at home from [facility] [place]. Pt also states that he has a home nebulizer machine and uses nebs about 3x daily. Called on-call staff from [facility] [place] over the weekend to try to confirm this, have not been able to reach at this time. Exercise Oximetry on this visit showed pt was not in need of O2 at time of discharge, 92-100% on RA at rest during this admission, lowest SpO2 during exercise walk was 90% on RA. Pt ambulates very well with prosthetic leg and no use of ambulatory devices such as walker or cane.
--- NOTE | 2019-11-17 18:49 | PDOC.CMDIS ---
- If Service Date Differs Date of service: 11/17/19 Time of Service: 18:50 LACE Index Scoring Tool - Questions: Length of Stay (in days): 4 - 6 Acuity (Admit via E.D.?): Yes Comorbidities: Chronic Pulmonary Disease, Liver or Renal Disease E.D. Visits: 2 - Answers: Total Score: 14 Risk of Readmission: High Risk Care Management Discharge Reason for Hospitalization: COPD, pneumonia Discharge Plan: Edd will be discharged home with no new services. He was provided with a last dose letter for [facility] where he receives methadone. He will transport via [facility] coordinated by CM and follow up with his PCP. Patient/Family Education Needs: Discharge plan, follow up, Ask Me Three, limitations
== END 2019-11-17 12:09 | disposition home or self-care (01) | DRG 193 ==
LOC: ER 13:54 → MS 16:04
PROVIDERS: Nurse Practitioner Acute Care; Nurse Practitioner Family; Admitting Provider Internal Medicine; Emergency Provider Emergency Medicine; PCP Internal Medicine; Visit Provider Internal Medicine
DX: J18.9 Pneumonia, unspecified organism (principal); J96.20 Acute and chronic respiratory failure, unspecified whether with hypoxia or hypercapnia; J44.1 Chronic obstructive pulmonary disease with (acute) exacerbation; F11.20 Opioid dependence, uncomplicated; J44.0 Chronic obstructive pulmonary disease with (acute) lower respiratory infection; Z99.81 Dependence on supplemental oxygen; F10.10 Alcohol abuse, uncomplicated; B18.2 Chronic viral hepatitis C; I10 Essential (primary) hypertension; D75.1 Secondary polycythemia; F17.210 Nicotine dependence, cigarettes, uncomplicated; T36.1X6A Underdosing of cephalosporins and other beta-lactam antibiotics, initial encounter; T38.0X6A Underdosing of glucocorticoids and synthetic analogues, initial encounter; F32.9 Major depressive disorder, single episode, unspecified; Z62.819 Personal history of unspecified abuse in childhood; F41.9 Anxiety disorder, unspecified; G40.909 Epilepsy, unspecified, not intractable, without status epilepticus
CPT/HCPCS: 36410; 36415; 80048; 80053; 82805; 84145; 85027; 87040; 93005; 94618; 94640; 94644; 96365; 96366; 96375; 99223; 99233; 99239; 99255; 99285; J1650; U0003; 36600; 71045; 71046; 83735; 84484; 85025; 85379; 87070; 87205; 93010; 94660; J1956; J2060; J2930; J3490; J7611; J7620; J8540

== ENCOUNTER 2019-12-05 15:06 | Emergency (ER) | payer MEDICARE, MEDICAID, SELFPAY ==
[2019-12-05] VITALS (9 sets, daily range): BP systolic 128–146; BP diastolic 73–85; PULSE 86–96; RESP 13–18; TEMP 37.3; O2SAT 85–95
--- NOTE | 2019-12-05 15:00 | RT.EKG_ITS ---
APPROVED REPORT Exam: Resting ECG Patient Location: E HR:99 bpm ECG Measurements Heart Rate 99 AXIS ME 133 P 67 QRSd 94 QRS 99 QT 362 T 48 QTc 448 Conclusion Sinus rhythm.. rate 99, qrs is narrow, no st elev., PVC, wandering baseline
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
--- NOTE | 2019-12-05 15:15 | DI.US_ITS ---
EXAM: US LOWER EXTREMITY VENOUS LT CLINICAL HISTORY: pain/redness/swelling. TECHNIQUE: Ultrasound performed using standard protocol. COMPARISON: No exams were available for comparison FINDINGS: Duplex venous ultrasound was performed according to the usual protocol. The deep veins are freely com pressible throughout and there is normal flow augmentation with manual calf compression. 2D and Doppl er evaluation are unremarkable. IMPRESSION: No evidence of deep venous thrombosis of the left lower extremity DATA REPOSITORY:
[2019-12-05 15:51] LABS: Abs Immature Grans 0.06 10^3/uL (0.0-0.06); Absolute Basophil Count 0.03 10^3/uL (0.0-0.2); Absolute Eosinophil Count 0.21 10^3/uL (0.0-0.7); Absolute Monocyte Count 0.79 10^3/uL (0.1-0.8); Absolute Neutrophil Count 4.29 10^3/uL (1.2-6.7); Basophils % 0.4; Eosinophils % 2.9; HCT 46.8 % (40.0-50.0); HGB 15.7 g/dL (13.5-17.5); Immature Grans % 0.8; Lymphocytes % 25.1; MCH 32.9 pg (27.0-33.0); MCHC 33.5 % (32.0-36.0); MCV 98.1 fL (80-95); MPV 9.4 fL (8.0-11.0); Neutrophils % 59.8; Nucleated RBC 0 %; Platelet Count 219 10^3/uL (130-400); RBC 4.77 10^6/uL (4.36-5.78); RDW 13.4 % (11.8-14.1); RDW-SD 47.8 fL; WBC 7.18 10^3/uL (4.4-10.8)
[2019-12-05] MEDS: CLINDAMYCIN 600 MG/50 ML BAG 100 MG IVPB (16:02)
[2019-12-05 16:04] LABS: ALT 50 U/L (16-63); AST 21 U/L (15-37); Albumin 3.3 g/dL (3.4-5.0); Alkaline Phosphatase 49 U/L (46-116); Anion Gap 4.9 mmol/L (3-11); BUN 9 mg/dL (7-18); Bilirubin, Total 0.3 mg/dL (0.2-1.0); CO2 33.1 mmol/L (21.0-32.0); Calcium 8.6 mg/dL (8.5-10.1); Chloride 101 mmol/L (98-107); Glucose 81 mg/dL (74-106); Sodium 139 mmol/L (136-145); Total Protein 6.4 g/dL (6.4-8.2)
[2019-12-05] MEDS: Normal Saline Flush 10 ML SYR IVP (16:04)
[2019-12-05] MEDS: Acetaminophen 325 MG TAB (16:29)
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
[2019-12-05] MEDS: Clindamycin 150 MG CAP 450 MG PO (16:42)
[2019-12-05 17:00] LABS: Bilirubin Negative (Negative); Blood Negative (Negative); Clarity Clear (Clear); Glucose Negative (Negative); Ketones Negative (Negative); Leukocyte Esterase Negative (Negative); Nitrite Negative (Negative); Urobilinogen 0.2 EU/dL (Up TO 0.2)
--- NOTE | 2019-12-05 17:02 | NUR.NOTE ---
Nursing Note: 12/05/19 Med rec done per list from PCP, several medications on summary not found on PCP med list. informed.
== END 2019-12-05 17:10 | disposition home or self-care (01) ==
PROVIDERS: Physician Assistant; Emergency Provider Student in an Organized Health Care Education/Training Program; PCP Internal Medicine
DX: L03.116 Cellulitis of left lower limb (principal); R06.02 Shortness of breath; J44.9 Chronic obstructive pulmonary disease, unspecified; Z99.81 Dependence on supplemental oxygen; I10 Essential (primary) hypertension; F11.20 Opioid dependence, uncomplicated; F10.10 Alcohol abuse, uncomplicated
CPT/HCPCS: 36415; 80053; 87040; 93005; 96365; 99285; 81003; 85025; 93010; 93971

== ENCOUNTER 2020-02-06 18:33 | Outpatient (REF) | payer MEDICARE, MEDICAID, SELFPAY ==
[2020-02-06 18:34] LABS: HCT 52.1 % (40.0-50.0); HGB 17.1 g/dL (13.5-17.5); MCH 31.9 pg (27.0-33.0); MCHC 32.8 % (32.0-36.0); MCV 97.2 fL (80-95); MPV 10.8 fL (8.0-11.0); Platelet Count 255 10^3/uL (130-400); RBC 5.36 10^6/uL (4.36-5.78); RDW 13.4 % (11.8-14.1); RDW-SD 48.6 fL; WBC 5.66 10^3/uL (4.4-10.8)
[2020-02-06 19:20] LABS: ALT 67 U/L (16-63); AST 33 U/L (15-37); Albumin 3.5 g/dL (3.4-5.0); Alkaline Phosphatase 47 U/L (46-116); Anion Gap 10.8 mmol/L (3-11); BUN 11 mg/dL (7-18); Bilirubin, Total 0.4 mg/dL (0.2-1.0); CO2 32.2 mmol/L (21.0-32.0); CREATININE 0.83 mg/dL (0.70-1.30); Calcium 8.6 mg/dL (8.5-10.1); Chloride 100 mmol/L (98-107); Glucose 162 mg/dL (74-106); Potassium 4.6 mmol/L (3.5-5.1); Sodium 143 mmol/L (136-145); Total Protein 6.4 g/dL (6.4-8.2)
[2020-02-10 10:28] LABS: Hepatitis B Surface Ag Negative (Negative)
[2020-02-10 11:11] LABS: HIV-1/2 Ag & Ab Screen Negative (Negative)
[2020-02-10 11:40] LABS: Hep B Core Antibody Negative (Negative)
[2020-02-10 15:20] LABS: HCV RNA Qualitative Detected (Undetected)
== END 2020-02-06 18:53 ==
LOC: NCHCN 18:33
PROVIDERS: PCP Internal Medicine; Visit Provider Family Medicine
DX: B19.20 Unspecified viral hepatitis C without hepatic coma (principal); Z11.4 Encounter for screening for human immunodeficiency virus [HIV]
CPT/HCPCS: 80053; 85027; 86704; 87340; 87389; 87522

== ENCOUNTER 2020-03-09 09:35 | Inpatient (IN) | payer MEDICARE, MEDICAID, SELFPAY ==
[2020-03-09] VITALS (84 sets, daily range): BP systolic 101–139; BP diastolic 41–113; PULSE 73–106; RESP 4–35; TEMP 36.5–36.6; O2SAT 86–99
--- NOTE | 2020-03-09 09:30 | RT.EKG_ITS ---
APPROVED REPORT Exam: Resting ECG Patient Location: E HR:80 bpm ECG Measurements Heart Rate 80 AXIS OK 65 P 62 QRSd 91 QRS 117 QT 370 T 69 QTc 430 Conclusion Sinus rhythm...normal P axis, V-rate 60- 99 Multiform ventricular premature complexes...short R-R, variable morphology Aberrant conduction of SV complex(es)...aberrant shape, OK 80-220 Right axis deviation...QRS axis (100,269) ST elev, probable normal early repol pattern...ST elevation, age<55 sinus rhythm at 80, right axis, significant artifact with question ST elevation leads II, III, nondia gnostic EKG
--- NOTE | 2020-03-09 10:00 | RT.EKG_ITS ---
APPROVED REPORT Exam: Resting ECG Patient Location: E HR:72 bpm ECG Measurements Heart Rate 72 AXIS NV 144 P 36 QRSd 94 QRS 113 QT 397 T 74 QTc 434 Conclusion Sinus rhythm...normal P axis, V-rate 60- 99 Right axis deviation...QRS axis (100,269) sinus rhythm at 72, right axis, questionable inferior ST elevation no longer present, no STEMI, nondi agnostic EKG
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
[2020-03-09] MEDS: Albuterol/Ipratropium 3 ML UPD VIAL UPD ×4 (10:17→23:22)
[2020-03-09 10:20] LABS: Abs Immature Grans 0.01 10^3/uL (0.0-0.06); Absolute Basophil Count 0.02 10^3/uL (0.0-0.2); Absolute Eosinophil Count 0.13 10^3/uL (0.0-0.7); Absolute Lymphocyte Count 1.61 10^3/uL (1.2-3.4); Absolute Monocyte Count 0.74 10^3/uL (0.1-0.8); Absolute Neutrophil Count 3.18 10^3/uL (1.2-6.7); Basophils % 0.4; Eosinophils % 2.3; HCT 53.8 % (40.0-50.0); HGB 17.7 g/dL (13.5-17.5); Immature Grans % 0.2; Lymphocytes % 28.3; MCH 32.5 pg (27.0-33.0); MCHC 32.9 % (32.0-36.0); MCV 98.7 fL (80-95); Neutrophils % 55.8; Nucleated RBC 0 %; Platelet Count 179 10^3/uL (130-400); RBC 5.45 10^6/uL (4.36-5.78); RDW 13.5 % (11.8-14.1); RDW-SD 48.4 fL; WBC 5.69 10^3/uL (4.4-10.8)
[2020-03-09] MEDS: Albuterol/Ipratropium 3 ML UPD VIAL (10:21)
[2020-03-09] MEDS: methylPREDNISolone SUCC 125 MG VIAL IVP (10:40)
[2020-03-09 10:45] LABS: ALT 40 U/L (16-63); AST 28 U/L (15-37); Albumin 3.7 g/dL (3.4-5.0); Alkaline Phosphatase 68 U/L (46-116); Anion Gap 5.4 mmol/L (3-11); BUN 7 mg/dL (7-18); Bilirubin, Total 0.4 mg/dL (0.2-1.0); CO2 33.6 mmol/L (21.0-32.0); CREATININE 0.78 mg/dL (0.70-1.30); Calcium 8.7 mg/dL (8.5-10.1); Chloride 106 mmol/L (98-107); Glucose 70 mg/dL (74-106); Potassium 3.8 mmol/L (3.5-5.1); Sodium 145 mmol/L (136-145); Total Protein 7.1 g/dL (6.4-8.2)
[2020-03-09] MEDS: Normal Saline 500 ML IV (10:45)
[2020-03-09] MEDS: Normal Saline Flush 10 ML SYR IVP ×3 (10:47→20:26)
[2020-03-09 10:48] LABS: Troponin I < 0.05 ng/mL (<0.06)
[2020-03-09 10:51] LABS: Magnesium 2.2 mg/dL (1.8-2.4); NT-proBNP 35 pg/mL (<300)
[2020-03-09 10:53] LABS: D-Dimer 338 ng/mlFEU (<500)
--- NOTE | 2020-03-09 11:30 | DI.RAD_ITS ---
EXAM: XR PORTABLE CHEST AP CLINICAL HISTORY: SOB, cough. PUI TECHNIQUE: COMPARISON: CR CHEST 2 VIEWS PA,LAT from 07/24/2014 CR XR PORTABLE CHEST AP from 11/13/2019 CR,XR XR CHEST 2V PA LATERAL from 11/16/2019 FINDINGS: Today's examination is compared with prior chest film of November 15. Note is again made prominent int erstitial markings in both lungs, probably unchanged from the previous examination. There are areas of increased radiodensity in both lung bases, these appear more prominent on the previous study, part icularly at the left lung base. The upper lung zones appear fairly clear. There is no cardiomegaly. No pleural effusion seen on this frontal film. IMPRESSION: Probable new bibasilar intrapulmonary radiodensities since November 15 examination, superimposed on chr onic changes. RADIATION DOSE DELIVERED: Total DLP
[2020-03-09] MEDS: HYDROmorphone 2 MG/ML VIAL 1 MG IVP (12:50)
[2020-03-09] MEDS: MAGNESIUM SULFATE 2 GM/50 ML BAG IVPB (12:55)
[2020-03-09 13:19] LABS: BE 2 mmol/L (-2-3); HCO3 28 mmol/L (22-26); pCO2 57 mmHg (35-45); pH 7.31 (7.35-7.45); pO2 56 mmHg (80-105); sO2 89 % (95-98); tCO2 25 mmol/L (23-27)
[2020-03-09 13:21] LABS: FIO2L 2 L; Site Right Radial
[2020-03-09 14:01] LABS: Troponin I < 0.05 ng/mL (<0.06)
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
[2020-03-09 16:46] LABS: BE 1 mmol/L (-2-3); HCO3 27 mmol/L (22-26); pCO2 55 mmHg (35-45); pO2 46 mmHg (80-105); sO2 80 % (95-98); tCO2 24 mmol/L (23-27)
[2020-03-09 16:49] LABS: FIO2L 3 L; Site Right Radial
[2020-03-09] MEDS: methylPREDNISolone SUCC 125 MG VIAL 80 MG IVP (18:13)
[2020-03-09] MEDS: Enoxaparin 40 MG/0.4 ML SYR SC (18:13)
[2020-03-09] MEDS: cefTRIAXone 1 GM/50 ML BAG IVPB (18:14)
--- NOTE | 2020-03-09 18:23 | NUR.NOTE ---
Nursing Note: med list done per PCP list. Unable to confirm methadone dosage through [facility] at this time. PCP list comment that this dosage was per [facility] correct on 11/29/19. ICU made aware.
[2020-03-09] MEDS: LORazepam 1 MG TAB PO (19:06)
[2020-03-09] MEDS: Pregabalin 100 MG CAP 200 MG PO (19:06)
[2020-03-09] MEDS: DOXYCYCLINE 100 MG in Normal Saline 100 ML IVPB (20:25)
[2020-03-09] MEDS: busPIRone 5 MG TAB 10 MG PO (20:25)
[2020-03-09] MEDS: valACYclovir 500 MG TAB PO (21:01)
[2020-03-09] MEDS: QUEtiapine 300 MG TAB PO (23:18)
[2020-03-10] VITALS (36 sets, daily range): BP systolic 94–167; BP diastolic 37–82; PULSE 66–95; RESP 4–22; TEMP 36.3–37.5; O2SAT 89–95
[2020-03-10] MEDS: methylPREDNISolone SUCC 125 MG VIAL 80 MG IVP ×2 (03:00→10:44)
[2020-03-10] MEDS: Albuterol/Ipratropium 3 ML UPD VIAL UPD ×3 (05:17→17:46)
[2020-03-10] MEDS: Acetaminophen 325 MG TAB PO ×2 (05:17→13:24)
[2020-03-10 06:59] LABS: Abs Immature Grans 0.03 10^3/uL (0.0-0.06); Absolute Basophil Count 0.01 10^3/uL (0.0-0.2); Absolute Lymphocyte Count 0.49 10^3/uL (1.2-3.4); Absolute Monocyte Count 0.41 10^3/uL (0.1-0.8); Basophils % 0.1; HCT 49.6 % (40.0-50.0); HGB 16.4 g/dL (13.5-17.5); Immature Grans % 0.3; Lymphocytes % 4.8; MCH 31.8 pg (27.0-33.0); MCHC 33.1 % (32.0-36.0); MCV 96.3 fL (80-95); MPV 10.3 fL (8.0-11.0); Neutrophils % 90.8; Nucleated RBC 0 %; Platelet Count 171 10^3/uL (130-400); RBC 5.15 10^6/uL (4.36-5.78); RDW 13.2 % (11.8-14.1); WBC 10.16 10^3/uL (4.4-10.8)
[2020-03-10 07:03] LABS: Absolute Neutrophil Count 9.23 10^3/uL (1.2-6.7)
[2020-03-10 07:18] LABS: ALT 31 U/L (16-63); AST 13 U/L (15-37); Albumin 3.6 g/dL (3.4-5.0); Alkaline Phosphatase 59 U/L (46-116); Anion Gap 7.8 mmol/L (3-11); BUN 11 mg/dL (7-18); Bilirubin, Total 0.4 mg/dL (0.2-1.0); CO2 29.2 mmol/L (21.0-32.0); CREATININE 0.79 mg/dL (0.70-1.30); Calcium 8.6 mg/dL (8.5-10.1); Chloride 103 mmol/L (98-107); Glucose 189 mg/dL (74-106); Potassium 3.2 mmol/L (3.5-5.1); Sodium 140 mmol/L (136-145); Total Protein 6.9 g/dL (6.4-8.2)
[2020-03-10] MEDS: Lisinopril 20 MG TAB PO (07:53)
[2020-03-10] MEDS: amLODIPine 10 MG TAB PO (07:53)
[2020-03-10] MEDS: Senna TAB 1 TAB PO (07:53)
[2020-03-10] MEDS: Pregabalin 100 MG CAP 200 MG PO ×3 (07:53→20:20)
[2020-03-10] MEDS: DULoxetine 30 MG CAP 60 MG PO (07:54)
[2020-03-10] MEDS: Thiamine 100 MG TAB PO (07:54)
[2020-03-10] MEDS: Multivitamin TAB 1 TAB PO (07:54)
[2020-03-10] MEDS: Pantoprazole 40 MG TABCR PO (07:54)
[2020-03-10] MEDS: LORazepam 1 MG TAB PO ×2 (07:54→13:25)
[2020-03-10] MEDS: Budesonide/Formoterol 160/4.5 6 GM 60 PUFF INH IH ×2 (08:10→21:22)
[2020-03-10] MEDS: valACYclovir 500 MG TAB PO ×2 (08:33→20:19)
[2020-03-10] MEDS: busPIRone 5 MG TAB 10 MG PO ×2 (08:33→20:19)
[2020-03-10] MEDS: Methadone Liquid 10 MG/ML 132 MG PO (08:34)
[2020-03-10] MEDS: DOXYCYCLINE 100 MG in Normal Saline 100 ML IVPB ×2 (09:31→20:18)
[2020-03-10] MEDS: Nicotine 21 MG/24 HR PATCH TD (09:43)
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
--- NOTE | 2020-03-10 14:53 | W.PM.PROGNOT ---
Date of Service Date of service: 03/10/20 Time of Service: 14:54 Assessment and Plan Assessment and plan (1) End stage COPD: Status: Chronic Assessment and plan: Cont home long-acting ronchodilator, inhaled steroid. Underlying infection tx with antibiotics. IV methylprednisolone; decrease dose and possibly change to oral prednisone in AM. (2) Methadone 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: Status: Chronic Assessment and plan: Cont home dosage of methadone (3) Pneumonia: Status: Acute Assessment and plan: WBC count is normal; did increase but likely d/t IV steroids. Cont IV Zosyn and doxycycline Monitor. Qualifiers: Pneumonia type: due to unspecified organism Laterality: unspecified laterality Lung location: lower lobe of lung Qualified Code(s): J18.9 - Pneumonia, unspecified organism (4) Acute and chronic respiratory failure ([id number]): Status: Resolved Assessment and plan: Currently on 3L supplemental O2; saturations of 91 - 94% Cont continuous monitoring. Subjective Subjective Patient reports: no new complaints, feels better, tolerating a regular diet and shortness of breath (improved) Exam Const General: cooperative and no acute distress Nutritional Appearance: average body habitus Orientation: alert and oriented x3 Limitations: mental status not altered Resp Effort & Inspection: normal respiratory effort Auscultation: diminished lung sounds and wheezes expiratory wheezes Cardio Rate: regular rate Rhythm: regular rhythm Heart Sounds: S1 normal and S2 normal Extrem General: no pedal edema and no calf tenderness Objective Last Vital Signs Temp 36.3 C L 03/10/20 08:02 Pulse 84 03/10/20 14:00 Resp 17 03/10/20 14:00 BP 114/63 03/10/20 14:00 Pulse Ox 94 03/10/20 14:00 Laboratory Results - last 24 hr 03/09/20 03/10/20 03/10/20 16:43 06:15 06:15 WBC 10.16 D RBC 5.15 Hgb 16.4 Hct 49.6 MCV 96.3 H MCH 31.8 MCHC 33.1 RDW 13.2 Plt Count 171 MPV 10.3 Immature Gran % 0.3 Neutrophils % 90.8 Lymphocytes % 4.8 Monocytes % 4.0 Eosinophils % 0.0 Basophils % 0.1 Nucleated RBC % 0 Absolute Neutrophils 9.23 H Absolute Lymphocytes 0.49 L Absolute Monocytes 0.41 Absolute Eosinophils 0.00 Absolute Basophils 0.01 ABG Sample Site Right radial ABG pH 7.30 L ABG pCO2 55 H ABG pO2 46 L ABG HCO3 27 H ABG Total CO2 24 ABG O2 Saturation 80 L ABG Base Excess 1 Oxygen Liter Flow 3 Sodium 140 Potassium 3.2 L Chloride 103 Carbon Dioxide 29.2 Anion Gap 7.8 BUN 11 Creatinine 0.79 Estimated GFR/1.73 m2 >= 60.00 Glucose 189 H D Calcium 8.6 Total Bilirubin 0.4 AST 13 L ALT 31 Alkaline Phosphatase 59 Total Protein 6.9 Albumin 3.6
[2020-03-10] MEDS: Enoxaparin 40 MG/0.4 ML SYR SC (15:29)
[2020-03-10] MEDS: Ketorolac 30 MG/ML VIAL IVP (15:29)
[2020-03-10] MEDS: Normal Saline Flush 10 ML SYR IVP (15:30)
[2020-03-10] MEDS: methylPREDNISolone SUCC 40 MG VIAL IVP (17:46)
[2020-03-10] MEDS: cefTRIAXone 1 GM/50 ML BAG IVPB (17:46)
[2020-03-10] MEDS: Potassium Chloride 20 MEQ TABCR PO (20:19)
[2020-03-10] MEDS: QUEtiapine 300 MG TAB PO (20:46)
[2020-03-11] VITALS (39 sets, daily range): BP systolic 101–129; BP diastolic 51–72; PULSE 62–89; RESP 4–29; TEMP 36.6–36.8; O2SAT 88–98
[2020-03-11] MEDS: Albuterol/Ipratropium 3 ML UPD VIAL UPD ×4 (00:52→18:21)
[2020-03-11] MEDS: Acetaminophen 325 MG TAB PO ×3 (00:52→16:51)
[2020-03-11] MEDS: methylPREDNISolone SUCC 40 MG VIAL IVP (01:03)
[2020-03-11] MEDS: Pantoprazole 40 MG TABCR PO (06:50)
[2020-03-11] MEDS: Budesonide/Formoterol 160/4.5 6 GM 60 PUFF INH IH ×2 (07:59→19:58)
[2020-03-11] MEDS: Senna TAB 1 TAB PO (08:19)
[2020-03-11] MEDS: DULoxetine 30 MG CAP 60 MG PO (08:19)
[2020-03-11] MEDS: Thiamine 100 MG TAB PO (08:19)
[2020-03-11] MEDS: valACYclovir 500 MG TAB PO (08:19)
[2020-03-11] MEDS: predniSONE 10 MG TAB 30 MG PO (08:20)
[2020-03-11] MEDS: LORazepam 1 MG TAB PO ×2 (08:20→14:05)
[2020-03-11] MEDS: amLODIPine 10 MG TAB PO (08:20)
[2020-03-11] MEDS: Pregabalin 100 MG CAP 200 MG PO ×3 (08:20→19:58)
[2020-03-11] MEDS: busPIRone 5 MG TAB 10 MG PO (08:20)
[2020-03-11] MEDS: Multivitamin TAB 1 TAB PO (08:21)
[2020-03-11] MEDS: Potassium Chloride 20 MEQ TABCR PO ×3 (08:21→19:58)
[2020-03-11] MEDS: Methadone Liquid 10 MG/ML 132 MG PO (08:23)
[2020-03-11] MEDS: Lisinopril 20 MG TAB PO (08:23)
[2020-03-11] MEDS: DOXYCYCLINE 100 MG in Normal Saline 100 ML IVPB ×2 (08:24→19:59)
--- NOTE | 2020-03-11 09:32 | CMPROGNOTE_ITS ---
- If Service Date Differs Date of service: 03/11/20 Time of Service: 09:32 Care Management Progress Note S/O:Garret remains acute at this time. sent [facility] a message to continue to follow up with Garret after discharge. Garret continues on IV abx and will be discharged when medically ready. A:Garret is a 44 year old male admitted with SOB and COPD P:Garret is receiving care in the ICU, including IV abx and respiratory support. When he is discharged home he will need a last dose letter for [facility] and RCT transportation. He is on chronic oxygen at home and resume those services as well as [facility].
[2020-03-11 10:22] LABS: SARS-CoV-2 RNA Source Nasal/Nares
[2020-03-11 10:24] LABS: SARS-CoV-2 RNA Not Detected (NotDetected)
--- NOTE | 2020-03-11 10:40 | PHA.REVIEW ---
Pharmacy Admission Review - Admission Clinical Review (Last Reviewed 03/09/20 @ 18:32 by Kvng Bonilla) Pneumonia (Acute) Penicillins Allergy (Severe, Unverified 12/05/19 16:30) Anaphylaxsis prednisone Adverse Reaction (Severe, Uncoded 12/05/19 16:30) anxiety and tremor Height 6 ft Weight 89.4 kg - Renal Dosing Renal Dosing: BUN 11 mg/dL (7-18) 03/10/20 06:15 Creatinine 0.79 mg/dL (0.70-1.30) 03/10/20 06:15 Medications needing adjustments: Reviewed List of meds needing interventions: CrCl ~126ml/min - Anticoagulation Anticoagulation: Hgb 16.4 g/dL (13.5-17.5) 03/10/20 06:15 Hct 49.6 % (40.0-50.0) 03/10/20 06:15 Plt Count 171 10^3/uL (130-400) 03/10/20 06:15 Creatinine 0.79 mg/dL (0.70-1.30) 03/10/20 06:15 DVT Prohphylaxis: Reviewed Medications: Enoxaparin - Opiate Usage Evaluate Pain Scale/Pains Meds: Reviewed (daily methadone) Scheduled Bowel Reg ordered if on Opiates?: No (PRN orders) - Relevant Labs Sodium 140 mmol/L (136-145) 03/10/20 06:15 Potassium 3.2 mmol/L (3.5-5.1) L 03/10/20 06:15 Chloride 103 mmol/L (98-107) 03/10/20 06:15 Magnesium 2.2 mg/dL (1.8-2.4) 03/09/20 09:56 Electrolytes, C-Reactive P, ESR: Reviewed (last BMP done yesterday, rechecking today; potassium being repleted with 20 meq PO BID) - DM Control DM Control: Glucose 189 mg/dL (74-106) H D 03/10/20 06:15 Insulin Dosing: N/A (elevated glucose likely from steroid use) - Heart Failure/CO Heart Failure/CO: Troponin I < 0.05 ng/mL (<0.06) 03/09/20 13:35 NT-Pro-B Natriuret Pep 35 pg/mL (<300) 03/09/20 09:56 EF%, BEATRIZ's, B-Blockers, Diuretics: Reviewed (lisinopril,) - BP Control BP Control: Blood Pressure 110/51 Blood Pressure 107/72 Blood Pressure 123/64 Blood Pressure 109/61 Blood Pressure 116/61 Blood Pressure 114/63 Blood Pressure 107/63 Blood Pressure 101/57 Blood Pressure 106/63 Blood Pressure 109/60 Blood Pressure 130/74 If elevated: Reviewed - Qtc Review List meds needing interventions: QTc 430 - IV to PO Switch IV Medications: Reviewed - Home Meds Home Med List reviewed: Intervened Relevent Home Meds Not ordered & why?: Zonisamide - last filled in november for 90 day supply but will check with neurologist Dr. Mckeon if still current, Anoro and Flovent-- symbicort is ordered but this was copied from home med list prior to list being confirmed by nursing (anoro is a LABA/LAMA combo while symbicort is a LABA/ICS combo, Flovent is an ICS- so what is missing from current inpatient orders is a LAMA... will speak to MD); Meds that are no longer active per PCP list but are ordered as orders were placed prior to med rec completion: Amlodipine, buspirone, valacyclovir -- paged MD - Current meds Current Medication Order Review: Intervened (Amlodipine, buspirone, and valacyclovir should be DC'd as they are no longer on pt's home med list (confirmed with PCP 03/11/20)) - Comments Comments/Follow Ups: Outpatient inhaler use: Anoro + Flovent + Combivent + Albuterol prn; waiting to confirm whether Zonisamide is still active - LM with Dr. Mckeon's office
[2020-03-11 11:23] LABS: Abs Immature Grans 0.11 10^3/uL (0.0-0.06); Basophils % 0.1; HCT 51.4 % (40.0-50.0); HGB 17.3 g/dL (13.5-17.5); Immature Grans % 0.7; Lymphocytes % 4.4; MCH 32.6 pg (27.0-33.0); MCHC 33.7 % (32.0-36.0); MCV 96.8 fL (80-95); MPV 10.1 fL (8.0-11.0); Monocytes % 6.4; Neutrophils % 88.4; Nucleated RBC 0 %; Platelet Count 188 10^3/uL (130-400); RBC 5.31 10^6/uL (4.36-5.78); RDW 13.7 % (11.8-14.1); RDW-SD 49.4 fL; WBC 15.61 10^3/uL (4.4-10.8)
[2020-03-11 11:26] LABS: Absolute Basophil Count 0.02 10^3/uL (0.0-0.2); Absolute Lymphocyte Count 0.69 10^3/uL (1.2-3.4)
[2020-03-11 11:29] LABS: Anion Gap 6.3 mmol/L (3-11); BUN 16 mg/dL (7-18); CO2 28.7 mmol/L (21.0-32.0); Calcium 8.8 mg/dL (8.5-10.1); Chloride 105 mmol/L (98-107); Glucose 129 mg/dL (74-106); Potassium 4.2 mmol/L (3.5-5.1); Sodium 140 mmol/L (136-145)
[2020-03-11] MEDS: Ketorolac 30 MG/ML VIAL IVP ×2 (12:47→18:21)
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
--- NOTE | 2020-03-11 14:20 | W.PM.PROGNOT ---
Date of Service Date of service: 03/11/20 Time of Service: 14:21 Assessment and Plan Assessment and plan (1) End stage COPD: Status: Chronic Assessment and plan: Cont bronchodilator and inhaled steroid. Treatinging underlying PNA with antibiotics. Now on oral steroid. (2) Methadone 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: Status: Chronic Assessment and plan: Cont home dose. (3) Seizure disorder: Status: Chronic Assessment and plan: Is on Zonegran; verified by pharmacy and restarted today. (4) Acute and chronic respiratory failure ([id number]): Status: Resolved Assessment and plan: Supplemental O2. Respiratory toilet. (5) Pneumonia: Status: Acute Assessment and plan: Cont IV Ceftriaxone and doxycycline WBC count increased; likely steroid effect. Monitor WBC count. Qualifiers: Pneumonia type: due to unspecified organism Laterality: unspecified laterality Lung location: lower lobe of lung Qualified Code(s): J18.9 - Pneumonia, unspecified organism Subjective Subjective Patient reports: tolerating a regular diet and afebrile; denies diarrhea, nausea and vomiting Interval history since last seen: c/o pain in upper bilateral chest and into upper back with cough/deep breathing. Exam Const General: cooperative, no acute distress and ill appearing Nutritional Appearance: average body habitus Orientation: alert and oriented x3 Chest Chest: no localized rib tenderness and no tenderness Resp Effort & Inspection: normal respiratory effort Auscultation: diminished lung sounds and wheezes expiratory wheezes, inspiratory wheezes and scattered wheezes Cardio Rate: regular rate Rhythm: regular rhythm Heart Sounds: S1 normal and S2 normal GI Palpation: soft and nontender Auscultation: normal bowel sounds Extrem General: no pedal edema and no calf tenderness Psych Appearance: grossly normal Mental Status: mental status grossly normal Affect: blunted Objective Last Vital Signs Temp 36.8 C 03/11/20 07:30 Pulse 73 03/11/20 09:00 Resp 17 03/11/20 12:00 BP 110/51 L 03/11/20 09:00 Pulse Ox 92 03/11/20 12:00 Laboratory Results - last 24 hr 03/09/20 03/11/20 03/11/20 11:05 11:09 11:09 WBC 15.61 H RBC 5.31 Hgb 17.3 Hct 51.4 H MCV 96.8 H MCH 32.6 MCHC 33.7 RDW 13.7 Plt Count 188 MPV 10.1 Immature Gran % 0.7 Neutrophils % 88.4 Lymphocytes % 4.4 Monocytes % 6.4 Eosinophils % 0.0 Basophils % 0.1 Nucleated RBC % 0 Absolute Neutrophils 13.80 H Absolute Lymphocytes 0.69 L Absolute Monocytes 1.00 H Absolute Eosinophils 0.00 Absolute Basophils 0.02 Sodium 140 Potassium 4.2 D Chloride 105 Carbon Dioxide 28.7 Anion Gap 6.3 BUN 16 Creatinine 0.80 Estimated GFR/1.73 m2 >= 60.00 Glucose 129 H Calcium 8.8 SARS-CoV-2 Source Nasal/nares SARS-CoV-2 (PCR) Not detected
--- NOTE | 2020-03-11 16:21 | CHAPLAIN ---
Edd was resting in bed when I visited. We had a short conversation. I explained my role and offered support. Edd said he's been trying to nap, but gets interrupted. I will continue to visit.
[2020-03-11] MEDS: Enoxaparin 40 MG/0.4 ML SYR SC (16:37)
[2020-03-11] MEDS: cefTRIAXone 1 GM/50 ML BAG IVPB (18:19)
[2020-03-11] MEDS: Normal Saline Flush 10 ML SYR IVP (18:23)
[2020-03-11] MEDS: QUEtiapine 300 MG TAB PO (19:58)
[2020-03-11] MEDS: Zonisamide 100 MG CAP 200 MG PO (20:40)
[2020-03-12] VITALS (97 sets, daily range): BP systolic 86–139; BP diastolic 42–86; PULSE 60–107; RESP 4–37; TEMP 36.5–36.9; O2SAT 88–98
[2020-03-12] MEDS: Ketorolac 30 MG/ML VIAL IVP ×4 (00:19→23:06)
[2020-03-12] MEDS: Albuterol/Ipratropium 3 ML UPD VIAL UPD ×3 (05:01→17:57)
[2020-03-12] MEDS: Mylanta Suspension 30 ML CUP PO (05:28)
[2020-03-12 06:01] LABS: Abs Immature Grans 0.05 10^3/uL (0.0-0.06); Absolute Basophil Count 0.01 10^3/uL (0.0-0.2); Absolute Eosinophil Count 0.01 10^3/uL (0.0-0.7); Absolute Monocyte Count 1.23 10^3/uL (0.1-0.8); Basophils % 0.1; Eosinophils % 0.1; HCT 50.3 % (40.0-50.0); HGB 16.6 g/dL (13.5-17.5); Immature Grans % 0.5; MCH 32.6 pg (27.0-33.0); MCV 98.8 fL (80-95); MPV 10.1 fL (8.0-11.0); Monocytes % 11.3; Nucleated RBC 0 %; Platelet Count 176 10^3/uL (130-400); RBC 5.09 10^6/uL (4.36-5.78); RDW 14.2 % (11.8-14.1); RDW-SD 51.8 fL; WBC 10.91 10^3/uL (4.4-10.8)
[2020-03-12 06:13] LABS: Anion Gap 6.5 mmol/L (3-11); BUN 16 mg/dL (7-18); CO2 27.5 mmol/L (21.0-32.0); CREATININE 0.71 mg/dL (0.70-1.30); Calcium 8.5 mg/dL (8.5-10.1); Chloride 109 mmol/L (98-107); Glucose 100 mg/dL (74-106); Potassium 3.6 mmol/L (3.5-5.1); Sodium 143 mmol/L (136-145)
[2020-03-12] MEDS: Budesonide/Formoterol 160/4.5 6 GM 60 PUFF INH IH (07:36)
[2020-03-12] MEDS: Methadone Liquid 10 MG/ML 132 MG PO (07:58)
[2020-03-12] MEDS: DOXYCYCLINE 100 MG in Normal Saline 100 ML IVPB ×2 (08:05→19:59)
[2020-03-12] MEDS: DULoxetine 30 MG CAP 60 MG PO (08:06)
[2020-03-12] MEDS: LORazepam 1 MG TAB PO ×2 (08:07→13:43)
[2020-03-12] MEDS: Pantoprazole 40 MG TABCR PO (08:08)
[2020-03-12] MEDS: Multivitamin TAB 1 TAB PO (08:08)
[2020-03-12] MEDS: Pregabalin 100 MG CAP 200 MG PO ×3 (08:09→20:01)
[2020-03-12] MEDS: Potassium Chloride 20 MEQ TABCR PO (08:09)
[2020-03-12] MEDS: predniSONE 10 MG TAB 30 MG PO (08:09)
[2020-03-12] MEDS: Thiamine 100 MG TAB PO (08:10)
[2020-03-12] MEDS: Senna TAB 1 TAB PO (08:10)
[2020-03-12] MEDS: Lisinopril 20 MG TAB PO (08:11)
[2020-03-12] MEDS: Normal Saline Flush 10 ML SYR IVP ×4 (08:15→17:38)
[2020-03-12] MEDS: Nicotine 21 MG/24 HR PATCH TD (09:14)
--- NOTE | 2020-03-12 10:53 | NUR.NOTE ---
RN encourages patient to walk the loop. Patient agrees to walk after he finishes giving himself a sponge bath at the sink.Nursing Note:
--- NOTE | 2020-03-12 11:24 | NUR.NOTE ---
Bed linens are changed out.Nursing Note:
--- NOTE | 2020-03-12 11:30 | W.NUTRFU ---
Date of service: 03/12/20 Time of Service: 11:30 Nutritional Follow up NOTE: Garret admitted to ICU with end stage COPD, seizure dx, methadone maintenance with PNA. Following regular diet with excellent intake. BMI wnl. Not at nutritiona risk. Will continue to follow. Time Spent in Nutritional Counseling and Treatment: 0
--- NOTE | 2020-03-12 12:22 | W.PM.PROGNOT ---
Date of Service Date of service: 03/12/20 Time of Service: 12:23 Assessment and Plan Assessment and plan (1) End stage COPD: Status: Chronic Assessment and plan: He notes some improvement. Cont current respiratory meds and add mucinex 1200mg po BID Cont Toradol for 3 more doses for chest wall / pleuritic pain. (2) Methadone 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: Status: Chronic Assessment and plan: Cont home dose of methadone (3) Acute and chronic respiratory failure ([id number]): Status: Resolved Assessment and plan: O2 saturations ranging from 89 to 93 on 2L NC today. Monitor (4) Pneumonia: Status: Acute Assessment and plan: Cont Rocephin today. Change doxycycline to po. Will consider changing to all oral antibiotics tomorrow. Qualifiers: Pneumonia type: due to unspecified organism Laterality: unspecified laterality Lung location: lower lobe of lung Qualified Code(s): J18.9 - Pneumonia, unspecified organism Subjective Subjective Patient reports: no new complaints, tolerating a regular diet, shortness of breath and afebrile; denies nausea and vomiting Interval history since last seen: Mildly improved ease of breathing. Exam Const General: cooperative and no acute distress Nutritional Appearance: average body habitus Orientation: alert and oriented x3 Resp Effort & Inspection: normal respiratory effort Auscultation: rhonchi and wheezes expiratory wheezes, inspiratory wheezes and scattered wheezes Cardio Rate: regular rate Rhythm: regular rhythm Heart Sounds: S1 normal and S2 normal Extrem General: no pedal edema and no calf tenderness Objective Last Vital Signs Temp 36.9 C 03/12/20 11:58 Pulse 84 03/12/20 11:47 Resp 14 03/12/20 11:47 BP 133/86 03/12/20 11:47 Pulse Ox 89 L 03/12/20 11:47 Laboratory Results - last 24 hr 03/12/20 03/12/20 05:50 05:50 WBC 10.91 H D RBC 5.09 Hgb 16.6 Hct 50.3 H MCV 98.8 H MCH 32.6 MCHC 33.0 RDW 14.2 H Plt Count 176 MPV 10.1 Immature Gran % 0.5 Neutrophils % 66.0 Lymphocytes % 22.0 Monocytes % 11.3 Eosinophils % 0.1 Basophils % 0.1 Nucleated RBC % 0 Absolute Neutrophils 7.20 H Absolute Lymphocytes 2.40 Absolute Monocytes 1.23 H Absolute Eosinophils 0.01 Absolute Basophils 0.01 Sodium 143 Potassium 3.6 Chloride 109 H Carbon Dioxide 27.5 Anion Gap 6.5 BUN 16 Creatinine 0.71 Estimated GFR/1.73 m2 >= 60.00 Glucose 100 Calcium 8.5
--- NOTE | 2020-03-12 12:40 | PDOC.CMPRO ---
- If Service Date Differs Date of service: 03/12/20 Time of Service: 12:40 Care Management Progress Note S/O: Garret was sitting up in his bed when CM met with him. He reported that he was feeling better today. His RN was in the room at the time. He stated that he has met with his MD today, who reported that he may be ready for discharge tomorrow. Garret was agreeable to this, and would like to be discharged before noon, if possible. Garret stated that he has all of the equipment he needs at home, but sometimes has a hard time with his insurance not covering his nebulizer solution. CM called [facility] to inquire about this, who stated that they would address the concern. Edd stated that he will need RCT scheduled for his discharge, which CM will coordinate. CM will continue to follow. A:Garret is a 44 year old male admitted with SOB and COPD P:Garret is receiving care in the ICU, including IV abx and respiratory support. When he is discharged home he will need a last dose letter for [facility] and RCT transportation. He is on chronic oxygen at home and resume those services as well as [facility]. CM will continue to follow and support discharge planning considerations.
--- NOTE | 2020-03-12 13:06 | NUR.NOTE ---
Patient is sleeping in bed.Nursing Note:
[2020-03-12] MEDS: guaiFENesin 600 MG TABCR PO (13:42)
[2020-03-12] MEDS: Enoxaparin 40 MG/0.4 ML SYR SC (15:50)
[2020-03-12] MEDS: Acetaminophen 325 MG TAB PO (15:50)
[2020-03-12] MEDS: cefTRIAXone 1 GM/50 ML BAG IVPB (17:37)
[2020-03-12] MEDS: Normal Saline 500 ML IV (17:40)
[2020-03-12] MEDS: Zonisamide 100 MG CAP 200 MG PO (20:00)
[2020-03-12] MEDS: QUEtiapine 300 MG TAB PO (20:01)
[2020-03-12] MEDS: guaiFENesin 600 MG TABCR 1200 MG PO (20:01)
[2020-03-13] MEDS: Albuterol/Ipratropium 3 ML UPD VIAL UPD (06:50)
[2020-03-13] MEDS: DOXYCYCLINE 100 MG in Normal Saline 100 ML IVPB (07:27)
[2020-03-13] MEDS: Nicotine 21 MG/24 HR PATCH TD (07:27)
[2020-03-13] MEDS: guaiFENesin 600 MG TABCR 1200 MG PO (07:28)
[2020-03-13] MEDS: DULoxetine 30 MG CAP 60 MG PO (07:28)
[2020-03-13] MEDS: Senna TAB 1 TAB PO (07:28)
[2020-03-13] MEDS: Lisinopril 20 MG TAB PO (07:28)
[2020-03-13] MEDS: Pantoprazole 40 MG TABCR PO (07:29)
[2020-03-13] MEDS: Multivitamin TAB 1 TAB PO (07:29)
[2020-03-13] MEDS: Thiamine 100 MG TAB PO (07:29)
[2020-03-13] MEDS: LORazepam 1 MG TAB PO ×2 (07:29→11:38)
[2020-03-13] MEDS: Pregabalin 100 MG CAP 200 MG PO ×2 (07:29→11:38)
[2020-03-13] MEDS: predniSONE 10 MG TAB 30 MG PO (07:29)
[2020-03-13] MEDS: Normal Saline Flush 10 ML SYR IVP (07:45)
[2020-03-13] MEDS: Methadone Liquid 10 MG/ML 132 MG PO (07:46)
[2020-03-13 09:14] VITALS: O2SAT 88
[2020-03-13 09:15] VITALS: BP 142/79; PULSE 83
--- NOTE | 2020-03-13 10:10 | PDOC.CMDIS ---
- If Service Date Differs Date of service: 03/13/20 Time of Service: 10:10 LACE Index Scoring Tool - Questions: Length of Stay (in days): 4 - 6 Acuity (Admit via E.D.?): Yes Comorbidities: Chronic Pulmonary Disease E.D. Visits: 3 - Answers: Total Score: 12 Risk of Readmission: High Risk Care Management Discharge Reason for Hospitalization: SOB, COPD Discharge Plan: Garret is being discharged home today, CM faxed update to [facility] for follow up. He will transport via [facility], CM has given Garret last dose letter for [facility] services. Garret will continue with his home oxygen services. Patient/Family Education Needs: Discharge education, limitations and follow up plan of care including referral back to [facility] Services Needed at Discharge: Oxygen Therapy, Transportation
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
== END 2020-03-13 12:02 | disposition home or self-care (01) | DRG 193 ==
LOC: ER 14:51 → ICU 15:31
PROVIDERS: Family Medicine; Admitting Provider Internal Medicine; Emergency Provider Student in an Organized Health Care Education/Training Program; PCP Internal Medicine; Visit Provider Internal Medicine
DX: J18.9 Pneumonia, unspecified organism (principal); J96.21 Acute and chronic respiratory failure with hypoxia; J44.0 Chronic obstructive pulmonary disease with (acute) lower respiratory infection; J44.1 Chronic obstructive pulmonary disease with (acute) exacerbation; F11.20 Opioid dependence, uncomplicated; F32.9 Major depressive disorder, single episode, unspecified; Z89.511 Acquired absence of right leg below knee; B18.2 Chronic viral hepatitis C; F41.9 Anxiety disorder, unspecified; I10 Essential (primary) hypertension; D75.1 Secondary polycythemia; G40.909 Epilepsy, unspecified, not intractable, without status epilepticus
CPT/HCPCS: 36415; 80048; 80053; 82805; 93005; 94640; 94644; 96361; 96365; 96366; 96375; 97161; 99223; 99232; 99239; 99285; J1650; U0003; 36600; 71045; 83605; 83735; 83880; 84484; 85025; 85379; 87070; 87205; 93010; 94660; 94667; J0696; J1885; J2930; J7512; J7611; J7620

== ENCOUNTER 2020-05-14 14:21 | Outpatient (REF) | payer MEDICARE, MEDICAID, SELFPAY ==
[2020-05-18 14:49] LABS: HCV RNA Qualitative Undetected (Undetected)
== END 2020-05-14 14:41 ==
LOC: NCHCN 14:21
PROVIDERS: PCP Internal Medicine; Visit Provider Family Medicine
DX: B19.20 Unspecified viral hepatitis C without hepatic coma (principal)
CPT/HCPCS: 87522

== ENCOUNTER 2020-08-26 18:07 | Outpatient (REF) | payer MEDICARE, MEDICAID, SELFPAY ==
[2020-08-28 13:56] LABS: HCV RNA Qualitative Undetected (Undetected)
== END 2020-08-26 18:08 | disposition home or self-care (01) ==
LOC: NCHCN 18:07
PROVIDERS: PCP Internal Medicine; Visit Provider Family Medicine
DX: B19.20 Unspecified viral hepatitis C without hepatic coma (principal)
CPT/HCPCS: 87522

== ENCOUNTER 2020-09-14 10:33 | Inpatient (IN) | payer MEDICARE, MEDICAID, SELFPAY ==
[2020-09-14] VITALS (18 sets, daily range): BP systolic 123–140; BP diastolic 74–91; PULSE 51–81; RESP 4–19; TEMP 36.7–37.1; O2SAT 88–97
--- NOTE | 2020-09-14 10:45 | RT.EKG_ITS ---
APPROVED REPORT Exam: Resting ECG Reason for Exam: sob Patient Location: E HR:58 bpm ECG Measurements Heart Rate 58 AXIS KS 153 P 18 QRSd 91 QRS 81 QT 419 T 63 QTc 413 Conclusion Sinus bradycardia...rate< 60
[2020-09-14 11:18] LABS: Abs Immature Grans 0.04 10^3/uL (0.0-0.06); Absolute Basophil Count 0.05 10^3/uL (0.0-0.2); Absolute Eosinophil Count 0.27 10^3/uL (0.0-0.7); Absolute Lymphocyte Count 2.25 10^3/uL (1.2-3.4); Absolute Monocyte Count 0.94 10^3/uL (0.1-0.8); Absolute Neutrophil Count 5.46 10^3/uL (1.2-6.7); Basophils % 0.6; HCT 48.6 % (40.0-50.0); Immature Grans % 0.4; MCH 30.9 pg (27.0-33.0); MCHC 32.9 % (32.0-36.0); MCV 93.8 fL (80-95); MPV 10.1 fL (8.0-11.0); Monocytes % 10.4; Neutrophils % 60.6; Nucleated RBC 0 %; Platelet Count 242 10^3/uL (130-400); RBC 5.18 10^6/uL (4.36-5.78); RDW 13.8 % (11.8-14.1); RDW-SD 47.6 fL; WBC 9.01 10^3/uL (4.4-10.8)
--- NOTE | 2020-09-14 11:30 | DI.CT_ITS ---
Exam(s) CT THORAX ABD/PEL CTA EXAM: CT THORAX ABD/PEL CTA CLINICAL HISTORY: syncope, chest pain. TECHNIQUE: Imaging Protocol: Axial computed tomography images with coronal and sagittal reformatted images were created and reviewed CONTRAST MATERIAL: Intravenous: Omnipaque 350 Contrast volume:90 mL Oral: None COMPARISON: CR,XR XR CHEST 2V PA LATERAL from 11/16/2019 CR XR PORTABLE CHEST AP from 03/09/2020 FINDINGS: CHEST: On this CTA study caliber of the thoracic aorta is within normal limits. There is no evidence of aor tic dissection. Also no evidence of aneurysm nor dissection in the abdominal aorta and the celiac an d SMA and inferior mesenteric arteries are patent as are the renal arteries. There is some mild athe rosclerotic disease at the aortic bifurcation and proximal right common iliac artery but without sign ificant stenosis nor aneurysmal dilatation of these vessels nor of the external iliac arteries which are patent as are the femoral arteries bilaterally. Internal iliac arteries are also patent and jonna neurysmal. LUNGS: Advanced emphysematous changes are noted in the lung apices/sub apical regions.. Also small p atchy nodular infiltrates seen in both lung henriquez. Calcified granulomas are noted in both lung base s. No pleural effusions MEDIASTINUM: There is no hilar nor mediastinal adenopathy. Visualized thyroid unremarkable. CARDIAC: Heart size is normal. There is no pericardial effusion. AORTA: Caliber of the thoracic aorta is within normal limits.There is no evidence of aortic dissectio n. ABDOMEN: There is no evidence of abdominal aortic aneurysm nor dissection.There is no aneurysmal dilatation of the common iliac arteries.The celiac and superior mesenteric arteries are patent. There is an IVC filter in place. This is in satisfactory position. There is no Milady IVC hematoma. There is no ascites. LIVER: There are no focal hepatic lesions nor dilatation of intrahepatic ducts. GALLBLADDER/BILIARY: No obvious gallbladder pathology. CBD is not dilated. PANCREAS: No evidence of pancreatic mass nor dilatation of the pancreatic duct. SPLEEN: Spleen is not enlarged. There are no intrasplenic lesions. Few small splenic granulomas are noted. ADRENALS: There are no significant adrenal masses. KIDNEYS: There is a benign 2 cm cyst in the lateral cortex of the right kidney. No focal findings in the opposite-left kidney. No calculi nor hydronephrosis on either side. No hydroureter. No calcul i nor obvious masses in the urinary bladder.. ABDOMINAL AORTA: The abdominal aorta is not enlarged. LYMPH NODES: There is no retroperitoneal nor para-aortic adenopathy. No obvious mesenteric masses. ABDOMINAL WALL: No evidence of significant anterior abdominal wall hernia. GI: There is no evidence of bowel obstruction, free air, nor abscess.Abundant fecal material in the c olon. No significant sigmoid diverticular disease. No appendicitis PELVIS: LYMPH NODES: There is no intrapelvic nor inguinal adenopathy. GI: No evidence of appendicitis.No evidence of sigmoid diverticulitis. URINARY BLADDER: No calculi nor masses evident REPRODUCTIVE: Prostate not enlarged. OSSEOUS: No significant osseous lesions. Channel in the visualized upper left femur is most probably from previous intramedullary noelle. IMPRESSION: 1. No evidence of aortic aneurysm nor dissection, as per request. No pericardial effusion. Minimal atherosclerotic disease of the aorta. 2. IVC filter noted which is in satisfactory position. 3. Patchy bilateral pulmonary infiltrates superimposed upon chronic COPD emphysematous changes. No p leural effusions. Multiple bilateral calcified granulomas noted. 4. Benign 2 cm cyst in the right kidney. RADIATION DOSE DELIVERED: Total DLP DATA REPOSITORY: All CT scans at this facility are submitted to the National Radiology Data Registry (NRDR) Dose Index Registry (DIR) with the [employer] ([employer]). RADIATION OPTIMIZATION: All CT scans at this facility use at least one of these dose optimization te chniques: automated exposure control; mA and/or kV adjustment per patient size (includes targeted exa ms where dose is matched to clinical indication); or iterative reconstruction.
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
--- NOTE | 2020-09-14 11:45 | RT.EKG_ITS ---
APPROVED REPORT Exam: Resting ECG Reason for Exam: chest pain Patient Location: E HR:50 bpm ECG Measurements Heart Rate 50 AXIS PA 67 P -27 QRSd 102 QRS 85 QT 460 T 72 QTc 422 Conclusion Sinus bradycardia...rate< 60 sinus bradycardia at 50, normal axis, no STEMI, nondiagnostic EKG
[2020-09-14] MEDS: Omnipaque 350 MG/ML 100 ML BTL IV (12:05)
[2020-09-14] MEDS: Normal Saline - Diluent 50 ML VIAL IV (12:05)
[2020-09-14] MEDS: Normal Saline Flush 10 ML SYR IVP ×3 (12:06→21:14)
[2020-09-14] MEDS: Albuterol/Ipratropium 3 ML UPD VIAL UPD ×5 (12:27→23:43)
[2020-09-14] MEDS: methylPREDNISolone SUCC 125 MG VIAL IVP (12:28)
[2020-09-14 13:01] LABS: ALT 16 U/L (16-63); AST 10 U/L (15-37); Albumin 3.4 g/dL (3.4-5.0); Alkaline Phosphatase 67 U/L (46-116); Anion Gap 4.9 mmol/L (3-11); BUN 10 mg/dL (7-18); Bilirubin, Total 0.2 mg/dL (0.2-1.0); CO2 31.1 mmol/L (21.0-32.0); CREATININE 0.7 mg/dL (0.70-1.30); Calcium 8.5 mg/dL (8.5-10.1); Chloride 104 mmol/L (98-107); Glucose 91 mg/dL (74-106); Magnesium 2.1 mg/dL (1.8-2.4); NT-proBNP 71 pg/mL (<300); Potassium 4.3 mmol/L (3.5-5.1); Sodium 140 mmol/L (136-145); Total Protein 7.3 g/dL (6.4-8.2)
[2020-09-14 13:03] LABS: Troponin I < 0.05 ng/mL (<0.06)
[2020-09-14 13:06] LABS: D-Dimer 1415 ng/mlFEU (<500)
[2020-09-14 13:19] LABS: COVID-19 PCR Negative (Negative)
[2020-09-14 13:41] LABS: BE (Venous) 7 mmol/L (-2-3); HCO3 (Venous) 33 mmol/L (23-28); O2 Sat (Venous) 86 %; TCO2 (Venous) 29 mmol/L (24-29); pH (Venous) 7.31 (7.31-7.41); pO2 (Venous) 53 mmHg
[2020-09-14 13:44] LABS: pCO2 (Venous) 65 mmHg (41-51)
[2020-09-14] MEDS: Normal Saline 500 ML IV (14:07)
[2020-09-14 14:15] LABS: Procalcitonin < 0.1 ng/mL
[2020-09-14 14:34] LABS: Lactate 0.8 mmol/L (0.6-1.4)
[2020-09-14] MEDS: cefTRIAXone 1 GM/50 ML BAG IVPB (14:57)
[2020-09-14 15:05] LABS: Troponin I < 0.05 ng/mL (<0.06)
[2020-09-14 15:19] LABS: BE (Venous) 4 mmol/L (-2-3); HCO3 (Venous) 30 mmol/L (23-28); O2 Sat (Venous) 92 %; TCO2 (Venous) 26 mmol/L (24-29); pCO2 (Venous) 59 mmHg (41-51); pH (Venous) 7.32 (7.31-7.41); pO2 (Venous) 63 mmHg
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
[2020-09-14] MEDS: DOXYCYCLINE 100 MG in Normal Saline 100 ML IVPB (16:52)
[2020-09-14] MEDS: Ketorolac 30 MG/ML VIAL IVP (17:50)
[2020-09-14] MEDS: Nicotine 21 MG/24 HR PATCH TD (17:51)
[2020-09-14] MEDS: Enoxaparin 40 MG/0.4 ML SYR SC (17:51)
[2020-09-14] MEDS: Pregabalin 100 MG CAP 200 MG PO (20:02)
[2020-09-14] MEDS: Budesonide/Formoterol 160/4.5 6 GM 60 PUFF INH IH (20:02)
[2020-09-14] MEDS: Zonisamide 100 MG CAP 200 MG PO (21:14)
[2020-09-14] MEDS: Sucralfate 1 GM TAB PO (21:14)
[2020-09-14] MEDS: LORazepam 1 MG TAB PO (21:14)
[2020-09-14] MEDS: methylPREDNISolone SUCC 125 MG VIAL 80 MG IVP (21:15)
[2020-09-15] VITALS (7 sets, daily range): BP systolic 126–144; BP diastolic 71–79; PULSE 61–80; RESP 4–17; TEMP 36.6–37.2; O2SAT 89–94
[2020-09-15] MEDS: Normal Saline Flush 10 ML SYR IVP ×5 (04:59→20:15)
[2020-09-15] MEDS: methylPREDNISolone SUCC 125 MG VIAL 80 MG IVP ×3 (04:59→21:14)
[2020-09-15] MEDS: Albuterol/Ipratropium 3 ML UPD VIAL UPD ×2 (04:59→11:16)
[2020-09-15] MEDS: DOXYCYCLINE 100 MG in Normal Saline 100 ML IVPB ×2 (05:00→16:39)
[2020-09-15] MEDS: Ketorolac 15 MG/ML VIAL IVP ×3 (05:19→20:13)
[2020-09-15] MEDS: Methadone Liquid 10 MG/ML 132 MG PO (08:02)
[2020-09-15] MEDS: Sucralfate 1 GM TAB PO ×4 (08:03→21:14)
[2020-09-15] MEDS: Thiamine 100 MG TAB PO (08:03)
[2020-09-15] MEDS: Pantoprazole 40 MG TABCR PO (08:03)
[2020-09-15] MEDS: Pregabalin 100 MG CAP 200 MG PO ×3 (08:04→20:13)
[2020-09-15] MEDS: Nicotine 21 MG/24 HR PATCH TD ×2 (08:04→18:10)
[2020-09-15] MEDS: Senna TAB 1 TAB PO (08:04)
[2020-09-15] MEDS: Lisinopril 20 MG TAB PO (08:04)
[2020-09-15] MEDS: Multivitamin TAB 1 TAB PO (08:04)
[2020-09-15] MEDS: Budesonide/Formoterol 160/4.5 6 GM 60 PUFF INH IH ×2 (08:21→20:15)
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
[2020-09-15] MEDS: LORazepam 1 MG TAB PO ×2 (11:38→16:39)
[2020-09-15] MEDS: cefTRIAXone 1 GM/50 ML BAG IVPB (12:29)
--- NOTE | 2020-09-15 13:33 | PHA.REVIEW ---
Pharmacy Admission Review - Admission Clinical Review (Last Reviewed 09/14/20 @ 21:57 by Kvng Bonilla) DVT prophylaxis (Acute) Tobacco abuse (Acute) Opiate dependence (Acute) Chronic respiratory failure with hypoxia (Acute) Penicillins Allergy (Severe, Unverified 09/14/20 10:37) Anaphylaxsis prednisone Adverse Reaction (Severe, Uncoded 09/14/20 10:37) anxiety and tremor Height 5 ft 9 in Weight 95.254 kg - Renal Dosing Renal Dosing: BUN 10 mg/dL (7-18) 09/14/20 12:20 Creatinine 0.7 mg/dL (0.70-1.30) 09/14/20 12:20 Medications needing adjustments: Reviewed - Anticoagulation Anticoagulation: Hgb 16.0 g/dL (13.5-17.5) 09/14/20 11:05 Hct 48.6 % (40.0-50.0) 09/14/20 11:05 Plt Count 242 10^3/uL (130-400) 09/14/20 11:05 Creatinine 0.7 mg/dL (0.70-1.30) 09/14/20 12:20 DVT Prohphylaxis: Reviewed Medications: Enoxaparin - Opiate Usage Evaluate Pain Scale/Pains Meds: Reviewed (chronic daily methadone) Scheduled Bowel Reg ordered if on Opiates?: Yes (prn orders) - Relevant Labs Sodium 140 mmol/L (136-145) 09/14/20 12:20 Potassium 4.3 mmol/L (3.5-5.1) 09/14/20 12:20 Chloride 104 mmol/L (98-107) 09/14/20 12:20 Magnesium 2.1 mg/dL (1.8-2.4) 09/14/20 12:20 Electrolytes, C-Reactive P, ESR: Reviewed - DM Control DM Control: Glucose 91 mg/dL (74-106) 09/14/20 12:20 Insulin Dosing: N/A - Heart Failure/WI Heart Failure/WI: Troponin I < 0.05 ng/mL (<0.06) 09/14/20 14:20 NT-Pro-B Natriuret Pep 71 pg/mL (<300) 09/14/20 12:20 EF%, BEATRIZ's, B-Blockers, Diuretics: Reviewed - BP Control BP Control: Blood Pressure 130/76 Blood Pressure 127/79 If elevated: Reviewed - Qtc Review If Elevated: Reviewed List meds needing interventions: QTc 413 on admission - IV to PO Switch IV Medications: Reviewed - Home Meds Home Med List reviewed: Intervened Relevent Home Meds Not ordered & why?: confirmed home med list against list from PCP, VPMS, and pharmacy rx history and corrected accordingly; all ordered - Current meds Current Medication Order Review: Reviewed (ceftriaxone + doxycycline for acute exacerbation of copd (infiltrates present on CT))
--- NOTE | 2020-09-15 14:21 | PGE_ITS ---
Date of Service Date of service: 09/15/20 Time of Service: 14:21 Assessment and Plan Assessment and plan (1) COPD with acute exacerbation: Status: Resolved Assessment and plan: Stable. When I came into the room and talked with him I checked on his FIO2 and found him to be down to 1 lpm per NC. He was upset that it was not higher and indicated that he wanted this up to 2 to 3 LPM. I performed a pulse oximetry check w/ him sitting in bed and found his SPO2 at 86%. I increased his oxygen to 2 LPM and his SPO2 sandra to 89-90%. I informed his nurse of his oxygen changes Cont. solumedrol, DuoNeb, LABA/ICS (Symbicort) and antibiotics (Ceftriaxone, Doxycycliine) (2) Chronic respiratory failure with hypoxia: Status: Acute Assessment and plan: cont. BIPAP while asleep otherwise can use NC while awake. (3) Methadone 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: Status: Chronic Assessment and plan: cont. current methadone treatment. dose confirmed by pharmacist (4) Seizure disorder: Status: Chronic Assessment and plan: cont. Zonisamide (5) Tobacco abuse: Status: Acute Assessment and plan: will give transdermal nicotine replacement while here. Patient formerly smoked 1 to 2 ppd for 30 yrs, reportedly has cut down to 1 pack per week for past 3 months. Unfortunately, he is not cooperating by taking the patch off. It is disconcerting that he is placing the blame on his nurses and how they are applying the patch. (6) Opiate dependence: Status: Acute Assessment and plan: cont. methadone as prescribed at [facility] Qualifiers: Substance use status: uncomplicated Qualified Code(s): F11.20 - Opioid dependence, uncomplicated (7) HTN (hypertension): Status: Chronic Assessment and plan: cont. lisinopril Qualifiers: Hypertension type: essential hypertension Qualified Code(s): I10 - Essential (primary) hypertension (8) DVT prophylaxis: Status: Acute Assessment and plan: Subcutaneous enoxaparin Subjective Subjective Interval history since last seen: Patient is more alert today. He is in no respiratory distress. He is complaining of how his medications are scheduled. Our pharmacist has been confirming his home meds and setting the timing. He continues to complain of wicked chest pains and back pains. However, he was watching TV and did not appear to be in any distress or discomfort but as soon as I walked into the room he began about his chest pains. He also is complaining of his nicoderm patch keeps falling off and that nursing needs to apply to his skin w/ three strips of tape. I spoke w/ Amarilis, his nurse and she assured me that they have been applying it w/ tape and that his SENIOR DATABASE PROGRAMMER saw him pull the patch off himself and throw it on the floor. Exam Narrative Exam Narrative: Obese, white male, sitting up in bed watching TV. Not using accessory muscles to breath, not in any acute respiratory distress, able to talk to me in complete paragraphs Chest wall is barrel chested w/ gynecomastia. chest wall is diffusely tender to palpation Lungs w/ diffuse wheezing Heart is regular Abdomen: soft, nontender Objective Last Vital Signs Temp 36.6 C 09/15/20 07:20 Pulse 80 09/15/20 07:20 Resp 16 09/15/20 07:20 BP 130/76 09/15/20 07:20 Pulse Ox 89 L 09/15/20 07:20 Laboratory Results - last 24 hr 09/14/20 09/14/20 09/14/20 14:20 14:20 15:13 VBG pH 7.32 VBG pCO2 59 H VBG pO2 63 VBG HCO3 30 H VBG Total CO2 26 VBG O2 Saturation 92 VBG Base Excess 4 H VBG Lactate 0.8 Troponin I < 0.05
--- NOTE | 2020-09-15 14:43 | CHAPLAIN ---
Garret had just finished using his IS and working with Respiratory when I visited. He was coughing and saying that it felt like his lungs were burning. That lasted for a few minutes. Garret said he has no family here for support, but a sister in [place] that he keeps in touch with. It wasn't a good time to keep in talking. I introduced myself, explained my role and will continue to visit.
[2020-09-15] MEDS: DULoxetine 30 MG CAP 60 MG PO (16:40)
[2020-09-15] MEDS: Enoxaparin 40 MG/0.4 ML SYR SC (17:59)
[2020-09-15] MEDS: Docusate Sodium 100 MG CAP PO (20:14)
[2020-09-15] MEDS: QUEtiapine 100 MG TAB 300 MG PO (20:14)
[2020-09-15] MEDS: Acetaminophen 325 MG TAB PO (20:14)
[2020-09-15] MEDS: Zonisamide 100 MG CAP 200 MG PO (21:14)
[2020-09-16] VITALS (10 sets, daily range): BP systolic 135–165; BP diastolic 67–97; PULSE 48–92; RESP 4–20; TEMP 36.5–37.6; O2SAT 89–98
[2020-09-16] MEDS: Normal Saline Flush 10 ML SYR IVP ×6 (04:23→21:36)
[2020-09-16] MEDS: Acetaminophen 325 MG TAB PO (04:23)
[2020-09-16] MEDS: Ketorolac 15 MG/ML VIAL IVP ×2 (04:24→11:03)
[2020-09-16] MEDS: DOXYCYCLINE 100 MG in Normal Saline 100 ML IVPB ×2 (04:24→15:49)
[2020-09-16] MEDS: methylPREDNISolone SUCC 125 MG VIAL 80 MG IVP ×3 (05:24→21:36)
[2020-09-16] MEDS: Polyethylene Glycol 3350 17 GM PACKET PO (05:33)
[2020-09-16] MEDS: Budesonide/Formoterol 160/4.5 6 GM 60 PUFF INH IH ×2 (07:38→21:33)
[2020-09-16] MEDS: DULoxetine 30 MG CAP 60 MG PO (08:07)
[2020-09-16] MEDS: Pregabalin 100 MG CAP 200 MG PO ×3 (08:07→19:02)
[2020-09-16] MEDS: Multivitamin TAB 1 TAB PO (08:07)
[2020-09-16] MEDS: Sucralfate 1 GM TAB PO ×4 (08:07→21:34)
[2020-09-16] MEDS: LORazepam 1 MG TAB PO ×2 (08:07→15:49)
[2020-09-16] MEDS: Senna TAB 1 TAB PO (08:08)
[2020-09-16] MEDS: Pantoprazole 40 MG TABCR PO (08:08)
[2020-09-16] MEDS: Lisinopril 20 MG TAB PO (08:08)
[2020-09-16] MEDS: Methadone Liquid 10 MG/ML 132 MG PO (08:08)
[2020-09-16] MEDS: Nicotine 21 MG/24 HR PATCH TD (08:08)
[2020-09-16] MEDS: Thiamine 100 MG TAB PO (08:08)
[2020-09-16] MEDS: Albuterol 2.5 MG/3 ML INH SOLN VIAL UPD ×2 (08:23→13:56)
--- NOTE | 2020-09-16 09:51 | PDOC.CMPRO ---
Care Management Progress Note S/O: Garret continues to be closely monitored and treated. He expressed wanting to leave AMA, CM reviewed medical necessity and encouraged Edd to stay while supporting his decision-making ability. CM agreed to call [facility] for transport if Edd does decide to leave, he reported feeling that his anxiety is out of control and he is requesting additional medications to treat it. He reviewed the loss of family members over a short period of time; CM provided supportive listening and validation. CM continues to follow. A: [address] [facility] 09/14/20 for COPD Exacerbation P: Garret will return home when ready per MD, he will follow up with his PCP and plan of care as prescribed. Last dose letter will be provided to transition ALENA maintenance back to [facility]. He will transport via [facility] private vehicle, coordinated by this keno writer/runner.
[2020-09-16] MEDS: Albuterol/Ipratropium 3 ML UPD VIAL UPD (11:11)
[2020-09-16] MEDS: cefTRIAXone 1 GM/50 ML BAG IVPB (11:45)
--- NOTE | 2020-09-16 13:13 | PGE_ITS ---
Date of Service Date of service: 09/16/20 Time of Service: 13:13 Assessment and Plan Assessment and plan (1) COPD with acute exacerbation: Status: Resolved Assessment and plan: Stable although he is still very wheezy.He has moist cough but not very productive. I have added Daliresp to his COPD regimen. Cont. solumedrol, DuoNeb, LABA/ICS (Symbicort) and antibiotics (Ceftriaxone, Doxycycliine). check ambulatory pulse oximetry. He appears to be at his baseline of 2 lpm. will check oximetry w/ activity. Patient wants a shower today. I think perhaps one more day of inpatient treatment and hopefully he will be able to go home tomorrow. (2) Chronic respiratory failure with hypoxia: Status: Acute Assessment and plan: patient refusing to wear BIPAP (3) Methadone 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: Status: Chronic Assessment and plan: cont. current methadone treatment. dose confirmed by pharmacist (4) Seizure disorder: Status: Chronic Assessment and plan: cont. Zonisamide (5) Tobacco abuse: Status: Acute Assessment and plan: will give transdermal nicotine replacement while here. Patient formerly smoked 1 to 2 ppd for 30 yrs, reportedly has cut down to 1 pack per week for past 3 months. Unfortunately, he is not cooperating by taking the patch off. It is disconcerting that he is placing the blame on his nurses and how they are applying the patch. (6) Opiate dependence: Status: Acute Assessment and plan: cont. methadone as prescribed at [facility] Qualifiers: Substance use status: uncomplicated Qualified Code(s): F11.20 - Opioid dependence, uncomplicated (7) HTN (hypertension): Status: Chronic Assessment and plan: cont. lisinopril Qualifiers: Hypertension type: essential hypertension Qualified Code(s): I10 - Essential (primary) hypertension (8) DVT prophylaxis: Status: Acute Assessment and plan: Subcutaneous enoxaparin Subjective Subjective Interval history since last seen: Patient complaining of increased anxiety and wicked chest pains. He reports these pains even though he was calmly sitting up watching TV. he has moist cough but trouble mobilizing his sputum. He did pro duce a sputum but this only grew normal oral bimal. He is on 2 LPM oxygen which is his baseline. He is using his IS and Acapella devices. I am adding Daliresp to his COPD regimen. He is already on a LABA/LAMA (Anoro Ellipta) and ICS (Flovent) at home. He is still very wheezy but remains on scheduled DuoNeb treatments and parenteral corticosteroids Exam Narrative Exam Narrative: Middle age white male sitting up at the bedside watching TV. No coughing until I asked him to take deep breathss Chest wall minimal tenderness when I palpate surreptitiously Lungs w/ diffuse wheezing Heart is regular Objective Last Vital Signs Temp 37.6 C H 09/16/20 07:29 Pulse 66 09/16/20 11:11 Resp 15 09/16/20 11:11 BP 165/97 H 09/16/20 07:29 Pulse Ox 95 09/16/20 11:11
[2020-09-16] MEDS: busPIRone 5 MG TAB PO ×2 (13:56→19:02)
[2020-09-16] MEDS: Roflumilast 500 MCG TAB 250 MCG PO (13:56)
[2020-09-16 15:19] LABS: Streptococcus Pneumoniae Ag, U Negative (Negative)
[2020-09-16] MEDS: Enoxaparin 40 MG/0.4 ML SYR SC (17:04)
[2020-09-16] MEDS: QUEtiapine 100 MG TAB 300 MG PO (19:02)
[2020-09-16] MEDS: Zonisamide 100 MG CAP 200 MG PO (21:35)
[2020-09-17] MEDS: DOXYCYCLINE 100 MG in Normal Saline 100 ML IVPB (03:41)
[2020-09-17] MEDS: Normal Saline Flush 10 ML SYR IVP ×4 (03:41→13:32)
[2020-09-17] MEDS: Acetaminophen 325 MG TAB PO ×2 (03:52→11:16)
[2020-09-17 04:23] VITALS: O2SAT 92
[2020-09-17] MEDS: Albuterol/Ipratropium 3 ML UPD VIAL UPD (05:12)
[2020-09-17] MEDS: methylPREDNISolone SUCC 125 MG VIAL 80 MG IVP ×2 (05:12→13:32)
[2020-09-17 05:42] VITALS: RESP 2
[2020-09-17 06:26] VITALS: BP 165/76; PULSE 72; RESP 18; TEMP 37.3; O2SAT 94
[2020-09-17 07:41] VITALS: BP 174/92; PULSE 53; RESP 20; TEMP 36.9; O2SAT 95
[2020-09-17] MEDS: DULoxetine 30 MG CAP 60 MG PO (07:48)
[2020-09-17] MEDS: Pregabalin 100 MG CAP 200 MG PO ×2 (07:49→13:32)
[2020-09-17] MEDS: Roflumilast 500 MCG TAB 250 MCG PO (07:49)
[2020-09-17] MEDS: Sucralfate 1 GM TAB PO ×2 (07:49→11:16)
[2020-09-17] MEDS: Lisinopril 20 MG TAB PO (07:49)
[2020-09-17] MEDS: Docusate Sodium 100 MG CAP PO (07:49)
[2020-09-17] MEDS: Multivitamin TAB 1 TAB PO (07:49)
[2020-09-17] MEDS: LORazepam 1 MG TAB PO ×2 (07:49→15:15)
[2020-09-17] MEDS: Nicotine 21 MG/24 HR PATCH TD (07:50)
[2020-09-17] MEDS: Thiamine 100 MG TAB PO (07:50)
[2020-09-17] MEDS: Pantoprazole 40 MG TABCR PO (07:50)
[2020-09-17] MEDS: busPIRone 5 MG TAB PO ×2 (07:50→13:32)
[2020-09-17] MEDS: Polyethylene Glycol 3350 17 GM PACKET PO (07:50)
[2020-09-17] MEDS: Senna TAB 1 TAB PO (07:50)
[2020-09-17] MEDS: Methadone Liquid 10 MG/ML 132 MG PO (08:15)
[2020-09-17] MEDS: Budesonide/Formoterol 160/4.5 6 GM 60 PUFF INH IH (09:11)
[2020-09-17 09:45] VITALS: BP 159/82; PULSE 61; RESP 19; TEMP 37; O2SAT 96
[2020-09-17] MEDS: cefTRIAXone 1 GM/50 ML BAG IVPB (11:16)
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
--- NOTE | 2020-09-17 15:42 | CMDISCH_ITS ---
LACE Index Scoring Tool - Questions: Length of Stay (in days): 3 Acuity (Admit via E.D.?): Yes Comorbidities: Chronic Pulmonary Disease E.D. Visits: 4 - Answers: Total Score: 12 Risk of Readmission: High Risk Care Management Discharge Reason for Hospitalization: COPD Exacerbation Discharge Plan: Garret will return home when ready per MD. He will follow up with his PCP and plan of care as prescribed. He will transport via [facility], coordinated by this scientific writer with a stop at [facility] for his prescriptions. also provided last dose letter to Garret and faxed to [facility] as well. Patient/Family Education Needs: Review discharge instructions, discuss Ask Me Three. Services Needed at Discharge: Transportation (RCT )
== END 2020-09-17 14:41 | disposition home or self-care (01) | DRG 190 ==
LOC: ER 15:09 → MS 15:34
PROVIDERS: Admitting Provider Internal Medicine; Emergency Provider Student in an Organized Health Care Education/Training Program; PCP Internal Medicine; Visit Provider Internal Medicine
DX: J44.0 Chronic obstructive pulmonary disease with (acute) lower respiratory infection (principal); J18.9 Pneumonia, unspecified organism; J96.11 Chronic respiratory failure with hypoxia; F11.20 Opioid dependence, uncomplicated; J44.1 Chronic obstructive pulmonary disease with (acute) exacerbation; Z99.81 Dependence on supplemental oxygen; D75.1 Secondary polycythemia; G40.909 Epilepsy, unspecified, not intractable, without status epilepticus; F17.210 Nicotine dependence, cigarettes, uncomplicated; I10 Essential (primary) hypertension; F41.9 Anxiety disorder, unspecified; B19.20 Unspecified viral hepatitis C without hepatic coma; Z62.819 Personal history of unspecified abuse in childhood; Z89.511 Acquired absence of right leg below knee; Z20.822 Contact with and (suspected) exposure to COVID-19
CPT/HCPCS: 36415; 71275; 74177; 80053; 82805; 84145; 87040; 87635; 93005; 94618; 94640; 96361; 96365; 96375; 99285; J1650; 83605; 83735; 83880; 84484; 85025; 85379; 87070; 87205; 87899; 93010; 94660; 94667; 99222; 99232; 99239; G0378; J0696; J1885; J2930; J3490; J7613; J7620

== ENCOUNTER 2020-10-01 02:06 | Outpatient (CLI) | payer MEDICARE, MEDICAID, SELFPAY ==
--- NOTE | 2020-10-01 09:00 | DI.RAD_ITS ---
Exam(s) XR CHEST 2V PA LATERAL EXAM: XR CHEST 2V PA LATERAL CLINICAL HISTORY: F/U PNEUMONIA TECHNIQUE: 2D digital imaging was performed. COMPARISON: CR,XR XR CHEST 2V PA LATERAL from 11/16/[address] THORAX ABD/PEL CTA from 09/14/2020 FINDINGS: MEDIASTINUM: Normal. HEART: Normal. PULMONARY VASCULATURE: Normal. LUNGS: There is a small patchy infiltrate which persists in the left perihilar region and the left uriel ng base. The lungs are hyperinflated with flattened diaphragms consistent with underlying COPD. Emma ear scarring is seen in the lung base posteriorly. PLEURAL SPACE: No pleural effusion or pneumothorax. BONE:Within normal limits for the patient's age. OTHER FINDINGS:Normal. IMPRESSION: 1. Patchy residual opacities in the left perihilar and left lower lobe. This may represent residual infiltrate. Follow-up chest x-ray to document clearing is recommended. 2. COPD. DATA REPOSITORY: RADIATION DOSE DELIVERED:
== END 2020-10-01 02:26 ==
PROVIDERS: PCP Internal Medicine; Visit Provider Internal Medicine
DX: J18.9 Pneumonia, unspecified organism (principal); R91.8 Other nonspecific abnormal finding of lung field; J44.9 Chronic obstructive pulmonary disease, unspecified
CPT/HCPCS: 71046

== ENCOUNTER 2021-04-28 19:46 | Outpatient (REF) | payer MEDICARE, MEDICAID, SELFPAY ==
[2021-04-29 16:37] LABS: COVID-19 RT-PCR UVMMC Result Negative (Negative)
== END 2021-04-28 19:47 | disposition home or self-care (01) ==
LOC: NCHCN 19:46
PROVIDERS: PCP Internal Medicine; Visit Provider Nurse Practitioner Family
DX: Z20.822 Contact with and (suspected) exposure to COVID-19 (principal); J06.9 Acute upper respiratory infection, unspecified
CPT/HCPCS: U0003; U0005

== ENCOUNTER 2021-07-27 15:32 | Outpatient (REF) | payer MEDICARE, MEDICAID, SELFPAY ==
[2021-07-27 19:26] LABS: ALT 17 U/L (16-63); AST 12 U/L (15-37); Alkaline Phosphatase 81 U/L (46-116); Bilirubin, Total 0.4 mg/dL (0.2-1.0); Ferritin 146 ng/mL (26-388); Total Protein 7.9 g/dL (6.4-8.2)
[2021-07-27 19:42] LABS: Bilirubin, Direct 0.1 mg/dL (0.0-0.2)
[2021-08-03 16:30] LABS: Testosterone, Total 221 ng/dL (240-950)
== END 2021-07-27 15:33 | disposition home or self-care (01) ==
LOC: NCHCN 15:32
PROVIDERS: PCP Internal Medicine; Visit Provider Internal Medicine
DX: E29.1 Testicular hypofunction (principal)
CPT/HCPCS: 80076; 84402; 84403; 82728

== ENCOUNTER 2021-09-08 08:21 | Outpatient (REF) | payer MEDICARE, MEDICAID, SELFPAY ==
[2021-09-08 15:11] LABS: Abs Immature Grans 0.06 10^3/uL (0.0-0.06); Absolute Basophil Count 0.07 10^3/uL (0.0-0.2); Absolute Eosinophil Count 0.46 10^3/uL (0.0-0.7); Absolute Lymphocyte Count 1.06 10^3/uL (1.2-3.4); Absolute Neutrophil Count 7.64 10^3/uL (1.2-6.7); Basophils % 0.7; Eosinophils % 4.6; HGB 15.9 g/dL (13.5-17.5); Immature Grans % 0.6; Lymphocytes % 10.5; MCH 33.1 pg (27.0-33.0); MCHC 32.4 % (32.0-36.0); MCV 102 fL (80-95); MPV 10.1 fL (8.0-11.0); Monocytes % 7.9; Neutrophils % 75.7; Platelet Count 317 10^3/uL (130-400); RDW 14.8 % (11.8-14.1); RDW-SD 56.9 fL; WBC 10.09 10^3/uL (4.4-10.8)
[2021-09-08 15:50] LABS: ALT 15 U/L (16-63); AST 11 U/L (15-37); Albumin 3.5 g/dL (3.4-5.0); Alkaline Phosphatase 111 U/L (46-116); Anion Gap 7.8 mmol/L (3-11); BUN 10 mg/dL (7-18); Bilirubin, Total 0.6 mg/dL (0.2-1.0); CO2 29.2 mmol/L (21.0-32.0); CREATININE 0.7 mg/dL (0.70-1.30); Calcium 8.5 mg/dL (8.5-10.1); Chloride 103 mmol/L (98-107); Glucose 80 mg/dL (74-106); Potassium 4.2 mmol/L (3.5-5.1); Sodium 140 mmol/L (136-145); TSH (W/Ref FT4) 1.05 uIU/mL (0.36-3.74); Total Protein 7.6 g/dL (6.4-8.2)
[2021-09-14 09:32] LABS: Testosterone, Free 4.54 ng/dL (4.26-16.4); Testosterone, Total 227 ng/dL (240-950)
== END 2021-09-08 08:22 | disposition home or self-care (01) ==
LOC: NCHCN 08:21
PROVIDERS: PCP Internal Medicine; Visit Provider Internal Medicine
DX: R53.83 Other fatigue (principal); R37 Sexual dysfunction, unspecified; J44.9 Chronic obstructive pulmonary disease, unspecified; E29.1 Testicular hypofunction
CPT/HCPCS: 80053; 84402; 84403; 84443; 85025

== ENCOUNTER 2021-09-23 17:13 | Outpatient (REF) | payer MEDICARE, MEDICAID, SELFPAY ==
[2021-09-24 19:36] LABS: FSH <0.3 mIU/mL (1.4-18.1); LH <0.3 mIU/mL (1.5-9.3)
== END 2021-09-23 17:14 | disposition home or self-care (01) ==
LOC: NCHCN 17:13
PROVIDERS: PCP Internal Medicine; Visit Provider Nurse Practitioner Family
DX: E29.1 Testicular hypofunction (principal)
CPT/HCPCS: 83001; 83002

== ENCOUNTER 2021-10-18 10:16 | Inpatient (IN) | payer MEDICARE, MEDICAID, SELFPAY ==
[2021-10-18] VITALS (29 sets, daily range): BP systolic 112–144; BP diastolic 69–106; PULSE 62–98; RESP 4–20; TEMP 36.4–36.7; O2SAT 77–97
--- NOTE | 2021-10-18 10:15 | RT.EKG_ITS ---
APPROVED REPORT Exam: Resting ECG Reason for Exam: sob Patient Location: E HR:91 bpm ECG Measurements Heart Rate 91 AXIS AZ 169 P 71 QRSd 102 QRS 87 QT 363 T 53 QTc 447 Conclusion Sinus rhythm...normal P axis, V-rate 60- 99 Low voltage, extremity leads...all extremity leads <0.5mV ST elev, probable normal early repol pattern...ST elevation, age<55 sinus rhythm at 91, normal axis less than [address] elevation V3, V4, V5, does not meet STEMI criteria.
--- NOTE | 2021-10-18 10:30 | DI.RAD_ITS ---
Exam(s) XR PORTABLE CHEST AP EXAM: XR PORTABLE CHEST AP CLINICAL HISTORY: SOB TECHNIQUE: 2D digital imaging was performed of the chest. One image was obtained. An AP view was ob tained. COMPARISON: CR XR PORTABLE CHEST AP from 03/09/2020 CR XR CHEST 2V PA LATERAL from 10/01/2020 FINDINGS: MEDIASTINUM: Normal. HEART: Normal. PULMONARY VASCULATURE: Normal. LUNGS: There is no change in appearance of the lungs compared to the prior examination. Chronic reardon ges are seen in the lung bases. No new focal infiltrates are present. Stable calcified granuloma ar e seen in the lungs. PLEURAL SPACE: No pleural effusion or pneumothorax. BONE:Within normal limits for the patient's age. OTHER FINDINGS:Normal. IMPRESSION: 1. Stable pulmonary findings which appear chronic. 2. No acute pulmonary process. DATA REPOSITORY: RADIATION DOSE DELIVERED:
[2021-10-18] MEDS: Albuterol/Ipratropium 3 ML UPD VIAL (10:37)
[2021-10-18] MEDS: Albuterol/Ipratropium 3 ML UPD VIAL UPD ×3 (10:39→16:18)
[2021-10-18 10:41] LABS: Abs Immature Grans 0.04 10^3/uL (0.0-0.06); Absolute Basophil Count 0.11 10^3/uL (0.0-0.2); Absolute Lymphocyte Count 1.76 10^3/uL (1.2-3.4); Absolute Monocyte Count 1.08 10^3/uL (0.1-0.8); Absolute Neutrophil Count 10.35 10^3/uL (1.2-6.7); Basophils % 0.8; Eosinophils % 1.5; HCT 52.6 % (40.0-50.0); HGB 16.6 g/dL (13.5-17.5); Immature Grans % 0.3; MCH 32.5 pg (27.0-33.0); MCHC 31.6 % (32.0-36.0); MCV 103 fL (80-95); MPV 9.8 fL (8.0-11.0); Neutrophils % 76.4; Platelet Count 217 10^3/uL (130-400); RBC 5.11 10^6/uL (4.36-5.78); RDW 13.7 % (11.8-14.1); RDW-SD 53.1 fL; WBC 13.55 10^3/uL (4.4-10.8)
[2021-10-18] MEDS: MAGNESIUM SULFATE 2 GM/50 ML BAG IVPB (10:50)
[2021-10-18] MEDS: methylPREDNISolone SUCC 125 MG VIAL IVP (10:50)
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
[2021-10-18 10:59] LABS: ALT 18 U/L (16-63); AST 25 U/L (15-37); Albumin 3.7 g/dL (3.4-5.0); Alkaline Phosphatase 57 U/L (46-116); Anion Gap 6.4 mmol/L (3-11); BUN 12 mg/dL (7-18); Bilirubin, Total 0.4 mg/dL (0.2-1.0); CO2 32.6 mmol/L (21.0-32.0); CREATININE 0.7 mg/dL (0.70-1.30); Calcium 8.1 mg/dL (8.5-10.1); Chloride 99 mmol/L (98-107); Glucose 75 mg/dL (74-106); Magnesium 1.9 mg/dL (1.8-2.4); Potassium 4.4 mmol/L (3.5-5.1); Sodium 138 mmol/L (136-145); Total Protein 7.6 g/dL (6.4-8.2); Troponin I < 50 ng/L (<or=60)
[2021-10-18 11:06] LABS: BE (Venous) 7 mmol/L (-2-3); HCO3 (Venous) 33 mmol/L (23-28); O2 Sat (Venous) 74 %; TCO2 (Venous) 30 mmol/L (24-29); pH (Venous) 7.31 (7.31-7.41); pO2 (Venous) 42 mmHg
[2021-10-18 11:09] LABS: pCO2 (Venous) 67 mmHg (41-51)
--- NOTE | 2021-10-18 11:15 | RT.EKG_ITS ---
APPROVED REPORT Exam: Resting ECG Reason for Exam: chest pain Patient Location: E HR:79 bpm ECG Measurements Heart Rate 79 AXIS IN 175 P 74 QRSd 97 QRS 91 QT 380 T 61 QTc 436 Conclusion Sinus rhythm...normal P axis, V-rate 60- 99 Low voltage, extremity leads...all extremity leads <0.5mV ST elev, probable normal early repol pattern...ST elevation, age<55 sinus rhythm at 79, normal axis, no STEMI, nondiagnostic EKG
[2021-10-18] MEDS: Normal Saline 500 ML IV (11:23)
[2021-10-18] MEDS: LORazepam 1 MG TAB PO ×2 (11:59→19:45)
[2021-10-18 12:30] LABS: COVID-19 PCR Negative (Negative); Influenza A PCR Negative (Negative); Influenza B PCR Negative (Negative); RSV PCR Negative (Negative)
[2021-10-18 12:34] LABS: Source Nasopharynx
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
[2021-10-18] MEDS: Pregabalin 100 MG CAP 200 MG PO ×2 (13:08→19:45)
[2021-10-18 14:25] LABS: Troponin I < 50 ng/L (<or=60)
[2021-10-18] MEDS: DOXYCYCLINE 100 MG in Normal Saline 100 ML IVPB (14:55)
--- NOTE | 2021-10-18 15:45 | RT.EKG_ITS ---
APPROVED REPORT Exam: Resting ECG Reason for Exam: chest pain Patient Location: I HR:67 bpm ECG Measurements Heart Rate 67 AXIS HI 164 P 35 QRSd 95 QRS 96 QT 415 T 57 QTc 438 Conclusion Sinus rhythm...normal P axis, V-rate 50- 99 Borderline right axis deviation...QRS axis ( 90, 99) Low voltage, extremity leads...all extremity leads <0.5mV ST elev, probable normal early repol pattern...ST elevation, age<55
[2021-10-18] MEDS: Albuterol 2.5 MG/3 ML INH SOLN VIAL UPD ×2 (16:20→19:45)
[2021-10-18] MEDS: Nicotine 21 MG/24 HR PATCH TD (16:58)
[2021-10-18] MEDS: Normal Saline Flush 10 ML SYR IVP ×2 (16:59→18:07)
[2021-10-18] MEDS: Ketorolac 30 MG/ML VIAL IVP (16:59)
[2021-10-18] MEDS: Enoxaparin 40 MG/0.4 ML SYR SC (17:00)
[2021-10-18] MEDS: methylPREDNISolone SUCC 125 MG VIAL 60 MG IVP (18:06)
[2021-10-18] MEDS: guaiFENesin 600 MG TABCR PO (19:45)
[2021-10-18] MEDS: Budesonide/Formoterol 160/4.5 6 GM 60 PUFF INH IH (19:48)
[2021-10-18] MEDS: QUEtiapine 300 MG TAB PO (21:13)
[2021-10-19] VITALS (11 sets, daily range): BP systolic 115–165; BP diastolic 72–98; PULSE 65–95; RESP 4–20; TEMP 35.9–37.1; O2SAT 90–98
[2021-10-19] MEDS: Normal Saline Flush 10 ML SYR IVP ×2 (01:07→11:06)
[2021-10-19] MEDS: DOXYCYCLINE 100 MG in Normal Saline 100 ML IVPB ×2 (01:08→14:34)
[2021-10-19] MEDS: methylPREDNISolone SUCC 125 MG VIAL 60 MG IVP ×3 (01:08→17:44)
[2021-10-19 07:43] LABS: Abs Immature Grans 0.01 10^3/uL (0.0-0.06); Absolute Basophil Count 0.01 10^3/uL (0.0-0.2); Absolute Eosinophil Count 0.01 10^3/uL (0.0-0.7); Absolute Lymphocyte Count 0.43 10^3/uL (1.2-3.4); Absolute Monocyte Count 0.27 10^3/uL (0.1-0.8); Absolute Neutrophil Count 7.41 10^3/uL (1.2-6.7); Basophils % 0.1; Eosinophils % 0.1; HCT 51.8 % (40.0-50.0); HGB 16.9 g/dL (13.5-17.5); Immature Grans % 0.1; Lymphocytes % 5.3; MCH 32.6 pg (27.0-33.0); MCHC 32.6 % (32.0-36.0); MCV 100 fL (80-95); MPV 10.7 fL (8.0-11.0); Monocytes % 3.3; Neutrophils % 91.1; Platelet Count 228 10^3/uL (130-400); RBC 5.19 10^6/uL (4.36-5.78); RDW 13.5 % (11.8-14.1); RDW-SD 50.1 fL; WBC 8.14 10^3/uL (4.4-10.8)
[2021-10-19] MEDS: Budesonide/Formoterol 160/4.5 6 GM 60 PUFF INH IH ×2 (07:47→20:23)
[2021-10-19] MEDS: Albuterol 2.5 MG/3 ML INH SOLN VIAL UPD (07:47)
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
[2021-10-19 07:52] LABS: Anion Gap 6.8 mmol/L (3-11); BUN 14 mg/dL (7-18); CO2 29.2 mmol/L (21.0-32.0); CREATININE 0.7 mg/dL (0.70-1.30); Calcium 8.3 mg/dL (8.5-10.1); Chloride 101 mmol/L (98-107); Glucose 161 mg/dL (74-106); Magnesium 2.3 mg/dL (1.8-2.4); Potassium 3.9 mmol/L (3.5-5.1); Sodium 137 mmol/L (136-145)
[2021-10-19] MEDS: Nicotine 21 MG/24 HR PATCH TD (08:30)
[2021-10-19] MEDS: DULoxetine 30 MG CAP 60 MG PO (08:31)
[2021-10-19] MEDS: LORazepam 1 MG TAB PO (08:31)
[2021-10-19] MEDS: Lisinopril 20 MG TAB PO (08:31)
[2021-10-19] MEDS: guaiFENesin 600 MG TABCR PO ×2 (08:31→20:20)
[2021-10-19] MEDS: Pregabalin 100 MG CAP 200 MG PO ×3 (08:31→20:20)
[2021-10-19] MEDS: Methadone Liquid 10 MG/ML 132 MG PO (08:32)
--- NOTE | 2021-10-19 08:47 | PGE_ITS ---
Date of Service Date of service: 10/19/21 Time of Service: 08:47 Assessment and Plan Assessment and plan (1) Acute exacerbation of chronic obstructive pulmonary disease: Status: Acute Assessment and plan: Change IV corticosteroids to oral prednisone. Continue LAMA/LABA along with scheduled doses of DuoNeb treatments as well as his inhaled corticosteroids. Encourage cough and deep breathing and continued use of I-S and acapella.. Professional time spent interviewing and examining patient, discussion of goals of care with hospital team (care management, nursing and consulting professionals) was 30 minutes. (2) Methadone 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: Status: Chronic Assessment and plan: Continue his home dose methadone (3) HTN (hypertension): Status: Chronic Assessment and plan: Continue his home dose of lisinopril 20 mg daily Qualifiers: Hypertension type: essential hypertension Qualified Code(s): I10 - Essential (primary) hypertension (4) DVT prophylaxis: Status: Acute Assessment and plan: Enoxaparin 40 mg subcu daily Subjective Subjective Interval history since last seen: patient feels a little better today and he looks better. He has not been in any respiratory distress. He is using his acapella and incentive spirometer. He states that he sent a sputum culture. He is followed by Dr. Ojeda, pulmonology, at [facility]. He reports that he had an MRI couple weeks ago of his chest because she was concerned about a spot on his lungs and is scheduled in the next week to follow-up with Dr. Ojeda. I did inform him that we have a local construction millwright Dr. Yee and offered to have her see him making it easier for him to follow locally but he prefers to follow-up with Dr. Ojeda whom he has had a relationship for some time. Exam Narrative Exam Narrative: Garret sitting up in bed watching TV. He is alert and oriented per space time circumstance not using accessory respiratory muscles. Lungs with coarse rhonchi and expiratory wheezes but much improved airflow compared to yesterday. Heart regular rate and rhythm. Abdomen soft nontender Objective Last Vital Signs Temp 35.9 C L 10/19/21 08:09 Pulse 78 10/19/21 08:09 Resp 19 10/19/21 08:09 BP 123/81 10/19/21 08:09 Pulse Ox 95 10/19/21 08:09 Laboratory Results - last 24 hr 0610/18/21 10/18/21 10:34 10:34 11:00 WBC 13.55 H RBC 5.11 Hgb 16.6 Hct 52.6 H MCV 103 H MCH 32.5 MCHC 31.6 L RDW 13.7 Plt Count 217 MPV 9.8 Immature Gran % 0.3 Neutrophils % 76.4 Lymphocytes % 13.0 Monocytes % 8.0 Eosinophils % 1.5 Basophils % 0.8 Nucleated RBC % 0.0 Absolute Neutrophils 10.35 H Absolute Lymphocytes 1.76 Absolute Monocytes 1.08 H Absolute Eosinophils 0.20 Absolute Basophils 0.11 VBG pH 7.31 VBG pCO2 67 H* VBG pO2 42 VBG HCO3 33 H VBG Total CO2 30 H VBG O2 Saturation 74 VBG Base Excess 7 H Sodium 138 Potassium 4.4 Chloride 99 Carbon Dioxide 32.6 H Anion Gap 6.4 BUN 12 Creatinine 0.7 Estimated GFR/1.73 m2 >= 60.00 Glucose 75 Calcium 8.1 L Magnesium 1.9 Total Bilirubin 0.4 AST 25 ALT 18 Alkaline Phosphatase 57 Troponin I < 50 Total Protein 7.6 Albumin 3.7 COVID-19 Source SARS-CoV-2 (PCR) Influenza Type A (PCR) Influenza Type B (PCR) RSV (PCR) 10/18/21 10/18/21 10/19/21 11:01 13:55 06:40 WBC RBC Hgb Hct MCV MCH MCHC RDW Plt Count MPV Immature Gran % Neutrophils % Lymphocytes % Monocytes % Eosinophils % Basophils % Nucleated RBC % Absolute Neutrophils Absolute Lymphocytes Absolute Monocytes Absolute Eosinophils Absolute Basophils VBG pH VBG pCO2 VBG pO2 VBG HCO3 VBG Total CO2 VBG O2 Saturation VBG Base Excess Sodium 137 Potassium 3.9 Chloride 101 Carbon Dioxide 29.2 Anion Gap 6.8 BUN 14 Creatinine 0.7 Estimated GFR/1.73 m2 >= 60.00 Glucose 161 H Calcium 8.3 L Magnesium 2.3 Total Bilirubin AST ALT Alkaline Phosphatase Troponin I < 50 Total Protein Albumin COVID-19 Source Nasopharynx SARS-CoV-2 (PCR) Negative Influenza Type A (PCR) Negative Influenza Type B (PCR) Negative RSV (PCR) Negative 10/19/21 06:40 WBC 8.14 RBC 5.19 Hgb 16.9 Hct 51.8 H MCV 100 H MCH 32.6 MCHC 32.6 D RDW 13.5 Plt Count 228 MPV 10.7 Immature Gran % 0.1 Neutrophils % 91.1 Lymphocytes % 5.3 Monocytes % 3.3 Eosinophils % 0.1 Basophils % 0.1 Nucleated RBC % 0.0 Absolute Neutrophils 7.41 H Absolute Lymphocytes 0.43 L Absolute Monocytes 0.27 Absolute Eosinophils 0.01 Absolute Basophils 0.01 VBG pH VBG pCO2 VBG pO2 VBG HCO3 VBG Total CO2 VBG O2 Saturation VBG Base Excess Sodium Potassium Chloride Carbon Dioxide Anion Gap BUN Creatinine Estimated GFR/1.73 m2 Glucose Calcium Magnesium Total Bilirubin AST ALT Alkaline Phosphatase Troponin I Total Protein Albumin COVID-19 Source SARS-CoV-2 (PCR) Influenza Type A (PCR) Influenza Type B (PCR) RSV (PCR)
[2021-10-19] MEDS: Tiotropium Bromide-Respimat 10 PUFF INH 2 PUFF IH (11:00)
[2021-10-19] MEDS: Enoxaparin 40 MG/0.4 ML SYR SC (13:41)
[2021-10-19] MEDS: LORazepam 0.5 MG TAB PO (15:31)
--- NOTE | 2021-10-19 15:41 | PHA.REVIEW ---
Pharmacy Admission Review - Admission Clinical Review (Last Reviewed 10/18/21 @ 17:42 by Kvng Bonilla MD) DVT prophylaxis (Acute) Acute exacerbation of chronic obstructive pulmonary disease (Acute) Penicillins Allergy (Severe, Unverified 09/14/20 10:37) Anaphylaxsis prednisone Adverse Reaction (Severe, Uncoded 09/14/20 10:37) anxiety and tremor Resuscitation Status Full Code Height 5 ft 9 in Weight 86.9 kg - Renal Dosing Renal Dosing: BUN 14 mg/dL (7-18) 10/19/21 06:40 Creatinine 0.7 mg/dL (0.70-1.30) 10/19/21 06:40 Medications needing adjustments: Reviewed (Crcl ~112 mL/min current meds okay) - Anticoagulation Anticoagulation: Hgb 16.9 g/dL (13.5-17.5) 10/19/21 06:40 Hct 51.8 % (40.0-50.0) H 10/19/21 06:40 Plt Count 228 10^3/uL (130-400) 10/19/21 06:40 Creatinine 0.7 mg/dL (0.70-1.30) 10/19/21 06:40 DVT Prophylaxis: Reviewed Medications: Enoxaparin Therapeutic Anticoagulation: N/A - Opiate Usage Evaluate Pain Scale/Pains Meds: Reviewed Scheduled Bowel Reg ordered if on Opiates?: No (has prn meds ordered) - Relevant Labs Sodium 137 mmol/L (136-145) 10/19/21 06:40 Potassium 3.9 mmol/L (3.5-5.1) 10/19/21 06:40 Chloride 101 mmol/L (98-107) 10/19/21 06:40 Magnesium 2.3 mg/dL (1.8-2.4) 10/19/21 06:40 - DM Control DM Control: Glucose 161 mg/dL (74-106) H 10/19/21 06:40 Insulin Dosing: N/A (no DM noted in medical history, no A1c on file. Pt dose have steroids ordered.) - Heart Failure/AR Heart Failure/AR: Troponin I < 50 ng/L (<or=60) 10/18/21 13:55 EF%, BEATRIZ's, B-Blockers, Diuretics: Reviewed - BP Control BP Control: Blood Pressure 150/89 Blood Pressure 147/77 Blood Pressure 123/81 If elevated: Reviewed (BP has normal to high most of admission so far.) - Qtc Review If Elevated: N/A (QTc 447 on admission and 438 on most recent EKG yesterday) - IV to PO Switch IV Medications: Reviewed - Home Meds Home Med List reviewed: Intervened (Methadone dose confirmed with [facility] this morning.) Relevent Home Meds Not ordered & why?: anoro ellipta and flovent (has symbicort and spiriva subbed for these), testosterone (Q14D) - Current meds Current Medication Order Review: Reviewed - Comments Comments/Follow Ups: Watch BP, labs, for culture results and for med changes. Antibiotic Activity - Pharmacy Antibiotic Review Pharmacy Antibiotic Activity: Reviewed, no change (Ceftriaxone and doxycycline ordered for bronchitis per H&P. Sputum culture growing gram positive bimal.)
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
[2021-10-19 19:02] LABS: Legionella Ag Detection Urine Negative (Negative)
[2021-10-19] MEDS: QUEtiapine 300 MG TAB PO (20:20)
[2021-10-20] VITALS: PULSE 75
[2021-10-20] MEDS: methylPREDNISolone SUCC 125 MG VIAL 60 MG IVP ×2 (01:26→10:59)
[2021-10-20] MEDS: DOXYCYCLINE 100 MG in Normal Saline 100 ML IVPB (01:27)
[2021-10-20 02:59] VITALS: BP 136/80; PULSE 61; RESP 18; TEMP 36.6; O2SAT 92
[2021-10-20] MEDS: Normal Saline Flush 10 ML SYR IVP ×3 (03:00→10:59)
[2021-10-20] MEDS: Acetaminophen 325 MG TAB 650 MG PO ×2 (03:00→08:11)
[2021-10-20 07:00] VITALS: PULSE 64
[2021-10-20 07:32] VITALS: BP 149/79; PULSE 61; RESP 17; TEMP 36.3; O2SAT 94
[2021-10-20] MEDS: Tiotropium Bromide-Respimat 10 PUFF INH 2 PUFF IH (07:55)
[2021-10-20] MEDS: Budesonide/Formoterol 160/4.5 6 GM 60 PUFF INH IH (07:55)
[2021-10-20] MEDS: Nicotine 21 MG/24 HR PATCH TD (08:10)
[2021-10-20] MEDS: Pregabalin 100 MG CAP 200 MG PO (08:11)
[2021-10-20] MEDS: Methadone Liquid 10 MG/ML 132 MG PO (08:11)
[2021-10-20] MEDS: Lisinopril 20 MG TAB PO (08:11)
[2021-10-20] MEDS: DULoxetine 30 MG CAP 60 MG PO (08:11)
[2021-10-20] MEDS: guaiFENesin 600 MG TABCR PO (08:12)
[2021-10-20] MEDS: LORazepam 0.5 MG TAB PO (08:22)
--- NOTE | 2021-10-20 09:49 | CMPROGNOTE_ITS ---
- If Service Date Differs Date of service: 10/20/21 Time of Service: 09:49 Care Management Progress Note S/O: A: Garret is a 46 year old male admitted to [facility] on 10/18/21 for COPD exacerbation. P: Garret will return home when medically cleared with no new services. A referral will be sent to [facility] for community case management limited to phone contacts only. will provide a last dose letter to transition ALENA maintenance back to [facility]. He will transport via [facility] private vehicle, coordinated by CM. He will follow up with his PCP and discharge plan of care. CM will continue to follow.
[2021-10-20 11:18] VITALS: BP 152/81; PULSE 69; RESP 17; TEMP 36.4; O2SAT 94
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
--- NOTE | 2021-10-20 16:46 | PDOC.CMDIS ---
- If Service Date Differs Date of service: 10/20/21 Time of Service: 16:46 LACE Index Scoring Tool - Questions: Length of Stay (in days): 2 Acuity (Admit via E.D.?): Yes Comorbidities: Chronic Pulmonary Disease E.D. Visits: 1 - Answers: Total Score: 8 Risk of Readmission: Low Risk Care Management Discharge Reason for Hospitalization: COPD Exacerbation Discharge Plan: Garret returned home with no new services. CM sent a referral to [facility], outlining Garret's wish to be contacted only by phone. He was driven home via private vehicle [facility], coordinated by CM. He will follow up with his PCP and discharge plan of care. He was happy to be going home. Patient/Family Education Needs: Review discharge instructions and limitations, discussion of self care needs including ask me three. Services Needed at Discharge: Transportation ([facility] private vehicle)
[2021-10-20 22:58] LABS: Streptococcus Pneumoniae Ag, U Negative (Negative)
[2021-10-21 20:08] LABS: Mycoplasma Pneumoniae PCR Negative; Specimen source sputum
== END 2021-10-20 13:22 | disposition home or self-care (01) | DRG 191 ==
LOC: ER 12:56 → MS 15:11
PROVIDERS: Admitting Provider Internal Medicine; Emergency Provider Student in an Organized Health Care Education/Training Program; PCP Internal Medicine; Visit Provider Internal Medicine
DX: J44.1 Chronic obstructive pulmonary disease with (acute) exacerbation (principal); F11.20 Opioid dependence, uncomplicated; J96.11 Chronic respiratory failure with hypoxia; I10 Essential (primary) hypertension; F32.A Depression, unspecified; B18.2 Chronic viral hepatitis C; G40.909 Epilepsy, unspecified, not intractable, without status epilepticus; F41.9 Anxiety disorder, unspecified; F17.210 Nicotine dependence, cigarettes, uncomplicated; S80.812A Abrasion, left lower leg, initial encounter; W18.49XA Other slipping, tripping and stumbling without falling, initial encounter; D75.1 Secondary polycythemia; F10.11 Alcohol abuse, in remission; Z87.820 Personal history of traumatic brain injury; Z99.81 Dependence on supplemental oxygen; Z89.511 Acquired absence of right leg below knee
CPT/HCPCS: 36415; 80048; 80053; 82805; 87449; 87637; 93005; 94640; 96365; 96366; 96375; 99291; J1650; 71045; 83735; 84484; 85025; 87070; 87205; 87581; 87899; 93010; 99223; 99232; 99238; J0696; J1885; J2930; J7613; J7620

== ENCOUNTER 2023-06-27 18:30 | Outpatient (REF) | payer MEDICARE, MEDICAID, SELFPAY ==
[2023-07-04 10:17] LABS: Testosterone, Free 2.91 ng/dL (4.06-15.6); Testosterone, Total 129 ng/dL (240-950)
== END 2023-06-27 18:31 | disposition home or self-care (01) ==
LOC: NCHCN 18:30
PROVIDERS: PCP Family Medicine; Visit Provider Family Medicine
DX: E29.1 Testicular hypofunction (principal)
CPT/HCPCS: 84402; 84403

== ENCOUNTER 2024-02-09 10:08 | Inpatient (IN) | payer MEDICARE, MEDICAID, SELFPAY ==
[2024-02-09] VITALS (38 sets, daily range): BP systolic 144–194; BP diastolic 85–178; PULSE 70–97; RESP 12–24; TEMP 36.5–37.3; O2SAT 85–93
--- NOTE | 2024-02-09 10:00 | RT.EKG_ITS ---
APPROVED REPORT Exam: Resting ECG Reason for Exam: Withdraw Patient Location: E HR:89 bpm ECG Measurements Heart Rate 89 AXIS ND 135 P 86 QRSd 95 QRS 114 QT 388 T 76 QTc 472 Conclusion Sinus rhythm, rate 89 Borderline QTc 472 No STEMI
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
[2024-02-09 10:38] LABS: Abs Immature Grans 0.01 10^3/uL (0.0-0.06); Absolute Basophil Count 0.11 10^3/uL (0.0-0.2); Absolute Eosinophil Count 0.03 10^3/uL (0.0-0.7); Absolute Lymphocyte Count 1.23 10^3/uL (1.2-3.4); Absolute Monocyte Count 0.48 10^3/uL (0.1-0.8); Absolute Neutrophil Count 7.13 10^3/uL (1.2-6.7); Basophils % 1.2 %; Eosinophils % 0.3 %; HCT 52.8 % (40.0-50.0); HGB 17.8 g/dL (13.5-17.5); Immature Grans % 0.1 %; Lymphocytes % 13.7 %; MCH 31.8 pg (27.0-33.0); MCHC 33.7 % (32.0-36.0); MCV 95 fL (80-95); MPV 10.2 fL (8.0-11.0); Monocytes % 5.3 %; Neutrophils % 79.4 %; Platelet Count 149 10^3/uL (130-400); RBC 5.59 10^6/uL (4.36-5.78); RDW 13.8 % (11.8-14.1); RDW-SD 48.6 fL; WBC 8.99 10^3/uL (4.4-10.8)
[2024-02-09 11:10] LABS: ALT 443 U/L (16-63); AST 620 U/L (15-37); Albumin 3.7 g/dL (3.4-5.0); Alkaline Phosphatase 97 U/L (46-116); Anion Gap 12.8 mmol/L (3-11); BUN 10 mg/dL (7-18); Bilirubin, Total 1.22 mg/dL (0.2-1.0); CO2 30.2 mmol/L (21.0-32.0); CREATININE 0.9 mg/dL (0.70-1.30); Calcium 8.7 mg/dL (8.5-10.1); Chloride 100 mmol/L (98-107); ETHANOL BLOOD 100.8 mg/dL (<10); Estimated GFR 104.05 (mL/min/1.73m2); Glucose 105 mg/dL (74-106); Magnesium 1.6 mg/dL (1.8-2.4); Potassium 3.7 mmol/L (3.5-5.1); Sodium 143 mmol/L (136-145); Troponin I 6 ng/L (<or=76)
--- NOTE | 2024-02-09 11:13 | DI.RAD_ITS ---
Exam(s) XR PORTABLE CHEST AP EXAM: XR PORTABLE CHEST AP CLINICAL HISTORY: cough, sob,. TECHNIQUE: 2D digital imaging was performed. COMPARISON: CR XR CHEST 2V PA LATERAL from 10/01/2020 CR XR PORTABLE CHEST AP from 10/18/2021 FINDINGS: Single AP portable view. Heart size is upper normal. The mediastinum is not widened. Increased interstitial markings are again noted in both lungs. However, there are slightly further i ncreased markings in the lateral right mid lung zone. Some platelike atelectasis is noted in the lef t lung base. Calcified granulomas again noted in the left lung. No pleural effusions. No pneumothorax. No fractures. IMPRESSION: Increased abnormal interstitial markings throughout both lung henriquez some partially confluent infiltr ate in the lateral right lung. Also platelike atelectasis or scarring in left lung base posterior ba kendall segment left lower lobe. DATA REPOSITORY: RADIATION DOSE DELIVERED:
[2024-02-09] MEDS: Trimethobenzamide 200 MG/2 ML VIAL IM (11:20)
[2024-02-09] MEDS: Lactated Ringers 1,000 ML 1000 ML IV (11:20)
[2024-02-09] MEDS: Methadone Liquid 10 MG/ML 135 MG PO (11:26)
[2024-02-09 11:46] LABS: Acetaminophen < 2 ug/mL (10-30)
[2024-02-09] MEDS: Omnipaque 350 MG/ML 100 ML BTL IJ (12:10)
[2024-02-09] MEDS: Normal Saline - Diluent 50 ML VIAL IJ (12:10)
--- NOTE | 2024-02-09 12:49 | DI.CT_ITS ---
Exam(s) CT CHEST/ABD/PEL W EXAM: CT CHEST/ABD/PEL W CLINICAL HISTORY: new transaminitis, SOB. EtOH w/d. TECHNIQUE: Imaging Protocol: Axial computed tomography images with coronal and sagittal reformatted images were created and reviewed CONTRAST MATERIAL: Intravenous: Omnipaque 350 Contrast volume:100 ml Oral: None COMPARISON: CT CT THORAX ABD/PEL CTA from 09/14/2020 FINDINGS: CHEST: LUNGS: Emphysematous changes again noted as well as multiple bilateral benign calcified granulomas.. There is some infiltrate in the lingular segment of the left lung which is unchanged from August 2020. There has been improvement in the bilateral areas of patchy infiltrate which were evident on the August 2020 CT scan. There is some platelike atelectasis in the posterior right lung. No new confluent in filtrates. Some scarring in the right lung base is noted. There are no pleural effusions. No new f indings in the trachea and mainstem bronchi. MEDIASTINUM: There are few calcified lymph nodes in the left hilum. Also subcarinal region. These f indings are commensurate with the multiple granulomas in the lung henriquez. Visualized thyroid unremar kable. CARDIAC: Heart size is normal. There is no pericardial effusion.Caliber of the thoracic aorta is wit hin normal limits. No evidence of dissection. OSSEOUS: No significant osseous lesions.There is height loss at superior endplate of the 8th thoracic vertebral body which was not evident in August 2020. As well as mild height loss at superior endplate of T6 vertebral body which was evident in 2020. There also again noted multiple endplate Schmorl's n ode invagination XXXX in the thoracic spinal column. Lumbar vertebrae appear unremarkable... ABDOMEN: There is no ascites. LIVER: Liver is mildly hypodense implying steatosis. There no discrete focal hepatic lesions. GALLBLADDER/BILIARY: No obvious gallbladder pathology. CBD diameter is upper normal. PANCREAS: There is some peripancreatic streaking consistent with acute pancreatitis. This is predomi nately around the body and tail. There is no formed fluid collection in this region nor elsewhere in the abdomen. SPLEEN: Spleen is not enlarged. There are no intrasplenic lesions. Splenic and portal veins are mike nt. ADRENALS: There are no significant adrenal masses. KIDNEYS: No calculi nor hydronephrosis. No solid renal masses. There is a solitary benign cyst in the right kidney which measures 2.2 x 2.1 cm, not requiring further imaging workup. ABDOMINAL AORTA: Abdominal aorta is not enlarged. IVC: There is an IVC filter again noted which appears to be in satisfactory position. There is no ob vious floor obvious within the IVC and iliac veins. LYMPH NODES: There is no retroperitoneal nor paraaortic adenopathy. ABDOMINAL WALL: No evidence of significant anterior abdominal wall nor inguinal hernia. GI: There is no evidence of bowel obstruction.Sigmoid is partially collapsed lung mimicking colitis p attern. PELVIS: LYMPH NODES: There is no intrapelvic nor inguinal adenopathy. GI: Appendix is difficult to identify is a separate structure. No evidence of obvious appendicitis.N o evidence of sigmoid diverticulitis. URINARY BLADDER: No calculi nor masses evident. Pelvic ureters are not dilated. REPRODUCTIVE: . prostate not enlarged. Seminal vesicles unremarkable. OSSEOUS: Lumbar vertebra unremarkable. No fractures. No osseous lesions in the pelvis and lumbar ve rtebrae IMPRESSION: 1. There is abnormal streaking around the pancreatic body and tail consistent with acute pancreatitis . There is no abnormal formed fluid collection at this time. Pancreatic duct is not dilated. There are no parenchymal calcifications in pancreas. No pancreatic masses. 2. There is an IVC filter again noted in satisfactory position. No obvious intraluminal thrombi in t he IVC below this level. 3. Emphysematous changes in the lungs again noted. However, although there is some increased marking s in both lung henriquez, the appearance of the lungs is improved when compared to CT scan of August 2020. Chronic unchanged infiltrate in the lingular segment of the left lung. No new confluent infiltrates evident in either lung field and there are no pleural effusions. 4. There is a mild compression fracture of T8 vertebral body which was not present in 2020. No obvio us osseous lesions. Other osseous findings as above. Report called by myself to ER physician 02/09/2024 at 1:25 p.m. RADIATION DOSE DELIVERED: 460.81mGy.cm Total DLP DATA REPOSITORY: All CT scans at this facility are submitted to the National Radiology Data Registry (NRDR) Dose Index Registry (DIR) with the [employer] (ACR). RADIATION OPTIMIZATION: All CT scans at this facility use at least one of these dose optimization te chniques: automated exposure control; mA and/or kV adjustment per patient size (includes targeted exa ms where dose is matched to clinical indication); or iterative reconstruction.
[2024-02-09 14:21] LABS: Lipase > 375 U/L (16-77)
[2024-02-09 14:22] LABS: Bilirubin Negative (Negative); Blood Negative (Negative); Clarity Clear (Clear); Glucose Negative (Negative); Ketones Trace mg/dL (Negative); Leukocyte Esterase Negative (Negative); Nitrite Negative (Negative); Specific Gravity 1.015 (1.005-1.025); pH 5.5 (5-8)
[2024-02-09 14:40] LABS: *AMPHETAMINES SCREEN URINE Negative (Negative); *BARBITURATES SCREEN URINE Positive (Negative); *BENZODIAZEPINES SCREEN URINE Negative (Negative); Cannabinoids THC Positive (Negative); Cocaine Screen,Urine Negative (Negative); METHADONE URINE SCREEN Positive (Negative); OPIATES URINE SCREEN Negative (Negative)
[2024-02-09 14:46] LABS: Tricyclic Antidepressants Negative (Negative)
--- NOTE | 2024-02-09 15:27 | W.PC.ACHO ---
Registration Status: Primary Language: Preferred Language: ED Information & Data Chief Complaint ETOHWithdr 02/09/24 10:31 Triage Note Pt arrives to the ED stating 02/09/24 10:10 he's been, drinking a half gallon of liquor a day x several days and feels awful . Pt states he wants to detox. Pt has not had anything to drink today. Pt states he got his dose of methadone from [facility] today and threw it up. C/O CP, back pain, and concerned he has pneumonia. Pt takes 135 mg of methadone daily. Pt has detoxed from ETOH before and has had withdrawal seizures. Last drink was yesterday around 1800 hrs Pt is on 3 L of O2 at home Medical / Surgical History (Last Reviewed 01/12/24 @ 08:48 by Pearl Kamara NP) Hypercholesterolemia Hx of substance abuse Chronic hepatitis Opiate withdrawal Hypoxia Pulmonary nodule Chronic respiratory failure Palliative care patient Alcohol withdrawal seizure COPD (chronic obstructive pulmonary disease) Narcotic abuse Asthma (Last Reviewed 01/12/24 @ 08:48 by Pearl Kamara NP) Status post below-knee amputation S/P ORIF (open reduction internal fixation) fracture Hx of BKA History of tonsillectomy History of hand surgery Most Recent Vital Signs Temperature 37.2 C 02/09/24 15:13 Temperature Source Temporal Artery Scan 02/09/24 15:13 Pulse 94 H 02/09/24 15:13 Pulse 87 02/09/24 13:10 Respiratory Rate 24 02/09/24 14:49 Respiratory Effort Normal, Non-Labored 02/09/24 10:22 Respiratory Pattern Tachypnea 02/09/24 14:20 Blood Pressure 178/91 H 02/09/24 15:13 Blood Pressure Mean 141 02/09/24 12:16 Blood Pressure Position Sitting 02/09/24 10:10 Pulse Oximetry 90 L 02/09/24 15:13 Oxygen Delivery Method Nasal Cannula 02/09/24 15:13 Oxygen Flow Rate 5 02/09/24 15:13 Pain Level 10 02/09/24 15:13 Allergies Penicillins Allergy (Severe, Unverified 02/09/24 10:27) Anaphylaxsis prednisone Adverse Reaction (Verified 02/09/24 10:27) Other (See Comment) Anxiety Precautions Isolation Seizure precaution 02/09/24 10:22 Active Medications Generic Name Dose Route Start Last Admin Trade Name Freq PRN Reason Stop Dose Admin Phenobarbital Sodium 210 mg/ 51.6154 mls @ 100 mls/hr 02/09/24 17:15 02/09/24 15:21 Sodium Chloride IVPB 02/09/24 17:45 Infused NOW ONE Infusion Iohexol 100 ml 02/09/24 12:15 02/09/24 12:10 Omnipaque 350 Mg/Ml 100 Ml Btl IJ 03/10/24 23:59 100 ml DIRECTED ADOLFO Administration Sodium Chloride 50 ml 02/09/24 12:15 02/09/24 12:10 Normal Saline - Diluent 50 Ml Vial IJ 50 ml .FOR DI USE ADOLFO Administration IV IV Catheter Type [Right Saline Lock Forearm] IV Catheter Gauge [Right 18 Forearm] Diet Orders Category Date Time Status Regular/Normal [DIET] Nutrition 02/09/24 Dinner Active Diagnostics 02/09/24 02/09/24 02/09/24 Range/Units 14:12 13:55 13:28 WBC (4.4-10.8) 10^3/uL RBC (4.36-5.78) 10^6/uL Hgb (13.5-17.5) g/dL Hct (40.0-50.0) % MCV (80-95) fL MCH (27.0-33.0) pg MCHC (32.0-36.0) % RDW (11.8-14.1) % Plt Count (130-400) 10^3/uL MPV (8.0-11.0) fL Immature Gran % % Neutrophils % % Lymphocytes % % Monocytes % % Eosinophils % % Basophils % % Nucleated RBC % (0.0-0.3) % Absolute Neutrophils (1.2-6.7) 10^3/uL Absolute Lymphocytes (1.2-3.4) 10^3/uL Absolute Monocytes (0.1-0.8) 10^3/uL Absolute Eosinophils (0.0-0.7) 10^3/uL Absolute Basophils (0.0-0.2) 10^3/uL Sodium (136-145) mmol/L Potassium (3.5-5.1) mmol/L Chloride (98-107) mmol/L Carbon Dioxide (21.0-32.0) mmol/L Anion Gap (3-11) mmol/L BUN (7-18) mg/dL Creatinine (0.70-1.30) mg/dL Est GFR (CKD-EPI 2020) (mL/min/1.73m2) Glucose (74-106) mg/dL Calcium (8.5-10.1) mg/dL Magnesium (1.8-2.4) mg/dL Total Bilirubin (0.2-1.0) mg/dL AST (15-37) U/L ALT (16-63) U/L Alkaline Phosphatase (46-116) U/L Troponin I Cancelled (<or=76) ng/L Total Protein (6.4-8.2) g/dL Albumin (3.4-5.0) g/dL Lipase > 375 H (16-77) U/L Urine Color Dark Yellow (Yellow) Urine Clarity Clear (Clear) Urine pH 5.5 (5-8) Ur Specific [place] 1.015 (1.005-1.025) Urine Protein Negative (Neg-Trace) mg/dL Urine Ketones Trace H (Negative) mg/dL Urine Blood Negative (Negative) Urine Nitrite Negative (Negative) Urine Bilirubin Negative (Negative) Urine Urobilinogen 1.0 H (Up to 0.2) mg/dL Ur Leukocyte Esterase Negative (Negative) Urine Glucose Negative (Negative) mg/dL Urine Opiates Screen Negative (Negative) Urine Methadone Screen Positive A (Negative) Acetaminophen (10-30) ug/mL Ur Barbiturates Screen Positive A (Negative) Ur Tricyclics Screen Negative (Negative) Ur Amphetamines Screen Negative (Negative) U Benzodiazepines Scrn Negative (Negative) Urine Cocaine Screen Negative (Negative) Ur THC Screen Positive A (Negative) Ethyl Alcohol (<10) mg/dL COVID-19 Source SARS-CoV-2 (PCR) Hepatitis A IgM Ab Hep Bs Antigen Hep B Core Total Ab Hepatitis C Antibody Influenza Type A (PCR) Influenza Type B (PCR) RSV (PCR) 02/09/24 02/09/24 02/09/24 Range/Units 10:28 10:25 10:25 WBC 8.99 (4.4-10.8) 10^3/uL RBC 5.59 (4.36-5.78) 10^6/uL Hgb 17.8 H (13.5-17.5) g/dL Hct 52.8 H (40.0-50.0) % MCV 95 (80-95) fL MCH 31.8 (27.0-33.0) pg MCHC 33.7 (32.0-36.0) % RDW 13.8 (11.8-14.1) % Plt Count 149 (130-400) 10^3/uL MPV 10.2 (8.0-11.0) fL Immature Gran % 0.1 % Neutrophils % 79.4 % Lymphocytes % 13.7 % Monocytes % 5.3 % Eosinophils % 0.3 % Basophils % 1.2 % Nucleated RBC % 0.0 (0.0-0.3) % Absolute Neutrophils 7.13 H (1.2-6.7) 10^3/uL Absolute Lymphocytes 1.23 (1.2-3.4) 10^3/uL Absolute Monocytes 0.48 (0.1-0.8) 10^3/uL Absolute Eosinophils 0.03 (0.0-0.7) 10^3/uL Absolute Basophils 0.11 (0.0-0.2) 10^3/uL Sodium 143 (136-145) mmol/L Potassium 3.7 (3.5-5.1) mmol/L Chloride 100 (98-107) mmol/L Carbon Dioxide 30.2 (21.0-32.0) mmol/L Anion Gap 12.8 H (3-11) mmol/L BUN 10 (7-18) mg/dL Creatinine 0.9 (0.70-1.30) mg/dL Est GFR (CKD-EPI 2020) 104.05 (mL/min/1.73m2) Glucose 105 (74-106) mg/dL Calcium 8.7 (8.5-10.1) mg/dL Magnesium 1.6 L (1.8-2.4) mg/dL Total Bilirubin 1.22 H (0.2-1.0) mg/dL AST 620 H (15-37) U/L ALT 443 H (16-63) U/L Alkaline Phosphatase 97 (46-116) U/L Troponin I Cancelled 6 (<or=76) ng/L Total Protein 7.0 (6.4-8.2) g/dL Albumin 3.7 (3.4-5.0) g/dL Lipase (16-77) U/L Urine Color (Yellow) Urine Clarity (Clear) Urine pH (5-8) Ur Specific [place] (1.005-1.025) Urine Protein (Neg-Trace) mg/dL Urine Ketones (Negative) mg/dL Urine Blood (Negative) Urine Nitrite (Negative) Urine Bilirubin (Negative) Urine Urobilinogen (Up to 0.2) mg/dL Ur Leukocyte Esterase (Negative) Urine Glucose (Negative) mg/dL Urine Opiates Screen (Negative) Urine Methadone Screen (Negative) Acetaminophen < 2 (10-30) ug/mL Ur Barbiturates Screen (Negative) Ur Tricyclics Screen (Negative) Ur Amphetamines Screen (Negative) U Benzodiazepines Scrn (Negative) Urine Cocaine Screen (Negative) Ur THC Screen (Negative) Ethyl Alcohol 100.8 H (<10) mg/dL COVID-19 Source Cancelled SARS-CoV-2 (PCR) Cancelled Hepatitis A IgM Ab Pending Hep Bs Antigen Pending Hep B Core Total Ab Pending Hepatitis C Antibody Pending Influenza Type A (PCR) Cancelled Influenza Type B (PCR) Cancelled RSV (PCR) Cancelled Intake and Output - 24 Hour Total 02/09/24 10:08 thru 02/09/24 15:21 Intake Total 1165.3846 Output Total 400 Balance 765.3846 Weight 81.4 kg Intake: IV 1165.3846 Output: Urine 400 Other: Urine Color Light [place] Risk Assessment History of Falls Previous History 02/09/24 10:48 Contributing Factors Unstable,Impairments 02/09/24 10:48 Tubes/Lines With any additional score 02/09/24 10:48 Gait Evaluation W/any additional score 02/09/24 10:48 Cognition No cognitive impairment 02/09/24 10:48 Fall Total Score 61 02/09/24 10:48 Level of Risk High Risk 02/09/24 10:48 v v v v v v v v v Sending and/or Receiving Nurses: Please use comment section below to note any information pertinent to the patient hand-off not included above. Information / Comments: Report received from: [facility] Nurse at 1430, pt A&O x3, on 5L o2 via NC, heart rate normal and regular, RBKA, revived two doses of phenobarbital in ER, got methadone in er this morning due to vomiting first dose, got 1L of fluids and zofran in ER>
[2024-02-09] MEDS: PHENobarbital 130 MG/ML VIAL IVP ×2 (15:49→16:41)
[2024-02-09] MEDS: Normal Saline Flush 10 ML SYR ×2 (15:51→16:43)
[2024-02-09] MEDS: busPIRone 15 MG TAB PO ×2 (16:40→19:34)
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
[2024-02-09] MEDS: HYDROmorphone 2 MG/ML VIAL 1 MG IVP (17:41)
[2024-02-09] MEDS: Enoxaparin 40 MG/0.4 ML SYR SC (18:10)
[2024-02-09] MEDS: Sennosides/Docusate Sodium TAB 1 TAB PO (19:34)
[2024-02-09] MEDS: Pregabalin 100 MG CAP 200 MG PO (19:34)
[2024-02-09] MEDS: QUEtiapine 300 MG TAB PO (19:40)
[2024-02-09] MEDS: Mometasone 220 MCG 14 DOSE INHALER 2 PUFF IH (20:22)
[2024-02-09] MEDS: HYDROmorphone 2 MG/ML SYR 1 MG IVP (21:11)
[2024-02-10] VITALS (77 sets, daily range): BP systolic 96–198; BP diastolic 54–112; PULSE 81–111; RESP 7–20; TEMP 36.2–38.4; O2SAT 4–95
--- NOTE | 2024-02-10 | DI.CT_ITS ---
Exam(s) CT ABDOMEN PELVIS W EXAM: CT ABDOMEN PELVIS W CLINICAL HISTORY: increased pain, pancreatitis, hard abdomen. TECHNIQUE: Imaging Protocol: Axial computed tomography images with coronal and sagittal reformatted images were created and reviewed CONTRAST MATERIAL: Intravenous: Omnipaque-350 85cc Oral: Yes. Oral contrast was also administered for bowel opacification. COMPARISON: CT CT CHEST/ABD/PEL W from 02/09/2024 FINDINGS: VISUALIZED LUNG BASES: Increasing atelectasis-mild infiltrate in both lung bases. No pleural effusio ns. Multiple benign calcified granulomas are noted in both lung bases.. ABDOMEN: ASCITES: Compared to yesterday there is now slight increase in fluid in left pericolic gutter as well as within the dependent aspect of the pelvis. LIVER: There are no focal hepatic lesions evident. No grossly dilated intrahepatic ducts. GALLBLADDER/BILIARY: No obvious gallbladder pathology. CBD diameter slightly prominent. PANCREAS: Again noted is evidence of peripancreatic streaking predominately around the body and tail and this is further increased from yesterday with some fluid now adjacent to the medial aspect of the spleen and left paracolic gutter. Pancreatic duct is not dilated. There are no areas of obvious pa ncreatic necrosis. The splenic vein (located medially behind the pancreas) is not thrombosed. No ev idence of pseudoaneurysm of the gastroduodenal artery. SPLEEN: Spleen is not enlarged. No obvious intrasplenic lesions. Splenic and portal veins are paten t. ADRENALS: There are no significant adrenal masses. KIDNEYS:Solitary benign cysts in the lateral cortex of the right kidney again noted. Does not requir e further imaging workup. No solid renal masses. No calculi nor hydronephrosis.. ABDOMINAL AORTA: Abdominal aorta is not enlarged. IVC FILTER again evident. LYMPH NODES:There is no retroperitoneal nor paraaortic adenopathy. ABDOMINAL WALL: No evidence of significant anterior abdominal wall nor inguinal hernia. GI: There is no evidence of bowel obstruction, free air, nor abscess. PELVIS: GI: No evidence of appendicitis.No evidence of sigmoid diverticulitis. LYMPH NODES: There is no intrapelvic nor inguinal adenopathy. REPRODUCTIVE: Prostate not enlarged. Seminal vesicles unremarkable. URINARY BLADDER: No calculi nor obvious masses evident OSSEOUS: No fractures and no significant osseous lesions. Evidence of previous hardware in the left hip. No remaining metallic hardware evident. IMPRESSION: 1. Compared to CT scan of 02/09/2024 there is further increase in peripancreatic edema consistent wit h pancreatitis and there is now some pancreatitis related fluid medial to the spleen and in the lower left paracolic gutter and dependent aspect of the pelvis. There is no evidence of pancreatic necros is at this time. No evidence of formed pseudocyst. Pancreatic duct is not dilated. No distinct frey creatic mass identified. 2. CBD diameter slightly prominent. No obvious gallstones in the CBD and gallbladder lumen but this should be further studied with ultrasound, given that often calculi not seen on CT scan are evident o n ultrasound examination. 3. Increasing lung base markings. No pleural effusions. RADIATION DOSE DELIVERED: 401.5mGy.cm Total DLP DATA REPOSITORY: All CT scans at this facility are submitted to the National Radiology Data Registry (NRDR) Dose Index Registry (DIR) with the [employer] (ACR). RADIATION OPTIMIZATION: All CT scans at this facility use at least one of these dose optimization te chniques: automated exposure control; mA and/or kV adjustment per patient size (includes targeted exa ms where dose is matched to clinical indication); or iterative reconstruction.
[2024-02-10] MEDS: Acetaminophen 500 MG TAB PO (03:05)
[2024-02-10] MEDS: Ibuprofen 600 MG TAB PO (03:05)
[2024-02-10 06:46] LABS: Abs Immature Grans 0.07 10^3/uL (0.0-0.06); Absolute Basophil Count 0.06 10^3/uL (0.0-0.2); Absolute Monocyte Count 0.55 10^3/uL (0.1-0.8); Basophils % 0.3 %; Eosinophils % 0.2 %; HCT 52.1 % (40.0-50.0); Immature Grans % 0.4 %; Lymphocytes % 6.5 %; MCH 31.9 pg (27.0-33.0); MCHC 34.5 % (32.0-36.0); MCV 92 fL (80-95); MPV 10.9 fL (8.0-11.0); Neutrophils % 89.6 %; RBC 5.65 10^6/uL (4.36-5.78); RDW 13.3 % (11.8-14.1); RDW-SD 45.1 fL; WBC 18.44 10^3/uL (4.4-10.8)
[2024-02-10 06:48] LABS: Absolute Eosinophil Count 0.04 10^3/uL (0.0-0.7); Absolute Neutrophil Count 16.52 10^3/uL (1.2-6.7)
[2024-02-10 06:52] LABS: Platelet Count 99 10^3/uL (130-400)
[2024-02-10 06:59] LABS: Anion Gap 7.6 mmol/L (3-11); BUN 9 mg/dL (7-18); CO2 34.4 mmol/L (21.0-32.0); CREATININE 0.8 mg/dL (0.70-1.30); Calcium 8.3 mg/dL (8.5-10.1); Chloride 100 mmol/L (98-107); Estimated GFR 107.82 (mL/min/1.73m2); Glucose 99 mg/dL (74-106); Magnesium 1.4 mg/dL (1.8-2.4); Potassium 3.2 mmol/L (3.5-5.1); Sodium 142 mmol/L (136-145)
[2024-02-10] MEDS: Pregabalin 100 MG CAP 200 MG PO ×3 (07:49→19:46)
[2024-02-10] MEDS: Folic Acid 1 MG TAB PO (07:50)
[2024-02-10] MEDS: busPIRone 15 MG TAB PO ×3 (07:50→19:46)
[2024-02-10] MEDS: DULoxetine 30 MG CAP 60 MG PO (07:50)
[2024-02-10] MEDS: Lisinopril 20 MG TAB PO (07:50)
[2024-02-10] MEDS: Sennosides/Docusate Sodium TAB 1 TAB PO ×2 (07:50→19:45)
[2024-02-10] MEDS: Multivitamin TAB 1 TAB PO (07:50)
[2024-02-10] MEDS: Thiamine 100 MG TAB PO (07:50)
[2024-02-10] MEDS: Tiotropium/Olodaterol 10 PUFF INHALER 2 PUFF IH (08:00)
[2024-02-10] MEDS: Mometasone 220 MCG 14 DOSE INHALER 2 PUFF IH ×2 (08:01→19:17)
[2024-02-10] MEDS: Methadone Liquid 10 MG/ML 135 MG PO (08:09)
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
[2024-02-10] MEDS: MAGNESIUM SULFATE 2 GM/50 ML BAG IV_INF ×2 (09:39→22:04)
[2024-02-10] MEDS: PHENobarbital 130 MG/ML VIAL IVP ×3 (09:39→19:44)
[2024-02-10] MEDS: cloNIDine 0.1 MG TAB PO ×3 (11:23→19:45)
[2024-02-10] MEDS: POTASSIUM CHLORIDE 10 MEQ/100 ML BAG 100 MEQ IV_INF ×5 (11:25→22:51)
[2024-02-10 11:57] LABS: Lab Add On Test DONE
[2024-02-10 12:09] LABS: Lipase 305 U/L (16-77)
[2024-02-10] MEDS: HYDROmorphone 2 MG/ML VIAL 0.5 MG IVP ×2 (12:30→14:35)
--- NOTE | 2024-02-10 14:15 | RT.EKG_ITS ---
APPROVED REPORT Exam: Resting ECG Reason for Exam: Prolonged QT Patient Location: I HR:82 bpm ECG Measurements Heart Rate 82 AXIS NV 126 P 32 QRSd 90 QRS 81 QT 402 T 58 QTc 470 Conclusion Sinus rhythm...normal P axis, V-rate 50- 99 Poor R wave progression
[2024-02-10] MEDS: Ondansetron 4 MG/2 ML VIAL IVP (14:36)
--- NOTE | 2024-02-10 16:33 | PGE_ITS ---
Date of Service Date of service: 02/10/24 Time of Service: 16:33 Assessment and Plan Assessment and plan (1) Alcohol withdrawal: Status: Acute Assessment and plan: History of alcohol withdrawal seizures. CIWA, phenobarb protocol - hit limit today Oral multivits, folic acid and thiamine Sz precautions. (2) Chronic respiratory failure with hypoxia: Status: Chronic Assessment and plan: At baseline 3 LPM nc SPO2 ~ 90% RT eval Nebs prn (3) Opiate dependence: Status: Acute Assessment and plan: Continue methadone. Saleem verfied dose Qualifiers: Substance use status: uncomplicated Qualified Code(s): F11.20 - Opioid dependence, uncomplicated (4) Compression fracture of T8 vertebra: Status: Acute Assessment and plan: New T8 fx on CT Pain 10/10 Tylenol and IBU If pain not relieved - hydromorphone prn - dontinues to have pain despite hydromorphone, does get quite somnolent. (5) Acute alcoholic hepatitis: Status: Acute (6) Pancreatitis: Status: Chronic Assessment and plan: Lipase 305 adv diet as tavia c/o abd pain right and left lower quadrants, abd is hard, BS +, last BM nl yesterday, WBC increased to 18k, no fever - will re CT (7) End stage COPD: Status: Chronic Assessment and plan: O2 3 LPM NC baseline - SPO2 ~ 90% (8) Methadone 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: Status: Chronic Assessment and plan: continue methadone (confirmed dose with saleem) (9) DVT prophylaxis: Status: Acute Assessment and plan: lovenox (10) Discharge planning issues: Status: Acute Assessment and plan: Full code. Interested in inpatient alcohol rehab Subjective Subjective Patient reports: tolerating liquids well, tolerating a regular diet, voiding w/o difficulty, no flatus, no bowel movement, shortness of breath and afebrile; denies flatus, diarrhea, nausea or vomiting Interval history since last seen: Complains of some nausea, sitting on the bed, awake, alert, complains of diffuse abdominal pain Exam Narrative Exam Narrative: The patient appears acutely unwell but is awake and alert, with equal and reactive pupils. * HEENT: Non-icteric sclera. * Neck: Supple, with no signs of meningismus. * Lungs: No respiratory distress was noted; he had scattered expiratory wheezing and was on 3 L/min of oxygen, saturating appropriately. * Cardiovascular: Well perfused, with a regular heart rate and rhythm. * Abdomen: Non-distended, soft, and nontender. * Musculoskeletal: Post-right below-knee amputation, with left upper extremity contractures, but no acute abnormalities. * Skin: No rashes or cyanosis. * Neurological: Normal gait (with prosthesis) no focal deficits, and coherent speech. A tremor was noted with outstretched hands, no asterixis was observed. * Psychiatric: Behavior was appropriate for the situation. Objective Last Vital Signs Temp 37.3 C 02/10/24 16:14 Pulse 93 H 02/10/24 16:14 Resp 12 02/10/24 16:14 BP 182/98 H 02/10/24 16:14 Pulse Ox 89 L 02/10/24 16:14 Laboratory Results - last 24 hr 02/10/24 06:17 WBC 18.44 H RBC 5.65 Hgb 18.0 H Hct 52.1 H MCV 92 MCH 31.9 MCHC 34.5 RDW 13.3 Plt Count 99 L MPV 10.9 Immature Gran % 0.4 Neutrophils % 89.6 Lymphocytes % 6.5 Monocytes % 3.0 Eosinophils % 0.2 Basophils % 0.3 Nucleated RBC % 0.0 Absolute Neutrophils 16.52 H Absolute Lymphocytes 1.20 Absolute Monocytes 0.55 Absolute Eosinophils 0.04 Absolute Basophils 0.06 Sodium 142 Potassium 3.2 L Chloride 100 Carbon Dioxide 34.4 H Anion Gap 7.6 BUN 9 Creatinine 0.8 Est GFR (CKD-EPI 2020) 107.82 Glucose 99 Calcium 8.3 L Magnesium 1.4 L Lipase 305 H Add-On Test Request DONE PAWSS Have you Been Recently Intoxicated or Drunk Within the Last 30 days?: Yes Have you Ever Experienced Previous Episodes of Alcohol Withdrawal?: Yes Have you ever Experienced Withdrawal Seizures?: Yes Have you ever Experienced Delirium Tremens(DT)s?: Yes Have you ever undergone Alcohol Rehabilitation Treatment (i.e, inpt ot outpatient treatment programs)?: Yes Have you ever Experienced Blackouts?: Yes Have you ever Combined Alcohol with other Downers within the last 90 days?: No Have you ever Combined Alcohol with any other Substance of Abuse during the last 90 days?: Yes Positive Blood Alcohol level on Presentation? [PCS.BAL]: Yes Evidence of Increased Autonomic Activity (i.e. HR>120, tremor, sweating, agitation, nausea)?: Yes Result: 10 Time Spent with Patient Time Spent with Patient: 35-49 minutes Time was spent: preparing to see the patient(eg.review tests), ordering medications,tests, procedures, referring, communicating with other health pulmonary care nurse, indepentently interpreting results, counseling the patient and care coordination
[2024-02-10] MEDS: Nicotine 21 MG/24 HR PATCH TD (16:41)
[2024-02-10] MEDS: Breeza Beverage 473 ML BTL PO ×2 (17:08→17:11)
[2024-02-10] MEDS: Omnipaque 350 MG/ML 50 ML BTL IJ (17:10)
[2024-02-10] MEDS: Normal Saline - Diluent 50 ML VIAL IJ (18:39)
[2024-02-10] MEDS: Omnipaque 350 MG/ML 100 ML BTL IJ (18:39)
[2024-02-10] MEDS: QUEtiapine 300 MG TAB PO (19:45)
--- NOTE | 2024-02-10 20:53 | DI.VRAD_ITS ---
PROCEDURE INFORMATION: Exam: CT Abdomen And Pelvis With Contrast Exam date and time: 02/10/2024 6:31 PM Age: 48 years old Clinical indication: Other: Increased pain, pancreatitis, hard abdomen TECHNIQUE: Imaging protocol: Computed tomography of the abdomen and pelvis with contrast. COMPARISON: CT CHEST/ABD/PEL W 02/09/2024 12:33 PM FINDINGS: Lungs: Bibasilar atelectasis versus scarring with traction bronchiectasis. Bilateral lung base granulomas. Liver: Normal. No mass. Gallbladder and biliary ducts: Mildly distended gallbladder without calcified gallstones or pericholecystic inflammatory changes to suggest acute cholecystitis. . The CBD measures 9 mm. Pancreas: Mild proximal pancreatic ductal dilatation. Diffuse peripancreatic edema, characteristic of acute pancreatitis. No evidence of pancreatic mass, pseudocyst or areas of necrosis. Spleen: Normal. No splenomegaly. Adrenal glands: Normal. No mass. Kidneys and ureters: Stable right renal cysts. Stomach and bowel: Moderate stool throughout the colon and rectum. Appendix: No evidence of appendicitis. Intraperitoneal space: Unremarkable. No free air. No significant fluid collection. Vasculature: IVC filter again noted. Lymph nodes: Unremarkable. No enlarged lymph nodes. Urinary bladder: The urinary bladder is distended. Reproductive: Unremarkable as visualized. Bones/joints: Unremarkable. No acute fracture. Soft tissues: Unremarkable. IMPRESSION: Bibasilar atelectasis versus scarring with traction bronchiectasis. Mild proximal pancreatic ductal dilatation. Diffuse peripancreatic edema, characteristic of acute pancreatitis. No evidence of pancreatic mass, pseudocyst or areas of necrosis. Mildly distended gallbladder without calcified gallstones or pericholecystic inflammatory changes to suggest acute cholecystitis. The CBD measures 9 mm there is mild intrahepatic ductal dilatation. ERCP/MRCP may be helpful in further evaluation of the distal CBD Dictated and Authenticated by: Gabriella Pendleton MD. Ordering:JULIO Ferrari MD
--- NOTE | 2024-02-10 20:59 | NUR.NOTE ---
Pt's vitals rechecked, RR 7bpm, desating, 02 increased to 5L. Pt minimally responsive to verbal stimuli. Bp dropped to 97/54. ICU notified, pt transferred to ICU report given to Johana BLANKET FOLDER. Dr. Rouse aware of transport.
[2024-02-10] MEDS: Lactated Ringers 1,000 ML 1000 ML IV (21:20)
[2024-02-10 21:57] LABS: BE (Venous) 15 mmol/L (-2-3); HCO3 (Venous) 38 mmol/L (23-28); Lactate 1.2 mmol/L (0.6-1.4); O2 Sat (Venous) 99 %; TCO2 (Venous) 32 mmol/L (24-29); pCO2 (Venous) 48 mmHg (41-51); pO2 (Venous) 97 mmHg
[2024-02-10] MEDS: Lactated Ringers 1,000 ML 150 ML IV (22:22)
[2024-02-10] MEDS: Lidocaine 2% Jelly 6 ML SYR (22:51)
[2024-02-10] MEDS: ACETAMINOPHEN 1,000 MG/100 ML BTL 400 MG IVPB (23:21)
--- NOTE | 2024-02-10 23:40 | NUR.NOTE ---
Nursing Note: Dr Rouse in to see pt, updated on pt's condtion, aware of pending K replacement, on top of previous K given earlier today, states ok to give remaining K replacement, no further orders given, will just wait for am labs to see potassium levels.
[2024-02-11] VITALS (88 sets, daily range): BP systolic 98–170; BP diastolic 63–116; PULSE 70–110; RESP 8–28; TEMP 36.6–37.8; O2SAT 85–96
--- NOTE | 2024-02-11 | DI.RAD_ITS ---
Exam(s) XR CHEST 2V PA LATERAL EXAM: XR CHEST 2V PA LATERAL CLINICAL HISTORY: Fever, yellow sputum, cough. TECHNIQUE: 2D digital imaging was performed. COMPARISON: CR XR PORTABLE CHEST AP from 02/09/[address] ABDOMEN PELVIS W from 02/10/2024 FINDINGS: 2 views: Heart size is normal. The mediastinum is not widened. There is increasing platelike atelectasis in lower half of both lung henriquez. Small calcified granulo mas again noted lower left lung field. There is interstitial disease in the lower lung henriquez again noted, not associated with obvious pleural effusion on the right side. There is slight blunting of t he left costophrenic angle on today's study which may indicate a small left pleural effusion. IMPRESSION: Interstitial infiltrates both lower lobes with additional increasing platelike atelectasis both lower lung henriquez and what may be a small left pleural effusion. Heart size remains normal. DATA REPOSITORY: RADIATION DOSE DELIVERED:
[2024-02-11] MEDS: POTASSIUM CHLORIDE 10 MEQ/100 ML BAG 100 MEQ IV_INF ×2 (00:06→01:07)
--- NOTE | 2024-02-11 00:27 | W.EVENT ---
Date of service: 02/11/24 Time of Service: 00:30 Event Note: Patient was transferred to ICU. He is admitted for alcohol withdrawl and has alcoholic induced pancreatitis. His WBC is significantly elevated along w/ the hemoglobin. CT scan shows diffuse pancreatitis. On my exam his asleep due to phenobarbital. His vital signs is normal w/ 4L oxygen. I recommend to cont w/ aggressive IVF administration w/ repeat labs in AM. Time Spent with Patient Time spent in critical care(minutes): 30 Time Spent Included: Coordination of care, Chart review and Documenting critically ill care
[2024-02-11] MEDS: Lactated Ringers 1,000 ML 150 ML IV ×2 (04:47→13:07)
[2024-02-11] MEDS: HYDROmorphone 2 MG/ML VIAL 0.5 MG IVP ×3 (04:51→16:25)
[2024-02-11] MEDS: LORazepam 2 MG/ML VIAL 1 MG IVP (05:17)
[2024-02-11] MEDS: Mometasone 220 MCG 14 DOSE INHALER 2 PUFF IH ×2 (05:47→20:08)
[2024-02-11] MEDS: Tiotropium/Olodaterol 10 PUFF INHALER 2 PUFF IH (05:47)
[2024-02-11] MEDS: Ibuprofen 600 MG TAB PO (05:58)
[2024-02-11] MEDS: Albuterol 2.5 MG/3 ML INH SOLN VIAL (06:05)
[2024-02-11 06:19] LABS: Abs Immature Grans 0.11 10^3/uL (0.0-0.06); Absolute Basophil Count 0.03 10^3/uL (0.0-0.2); Absolute Monocyte Count 0.61 10^3/uL (0.1-0.8); Basophils % 0.2 %; Eosinophils % 1.8 %; HCT 46.5 % (40.0-50.0); Immature Grans % 0.8 %; Lymphocytes % 12.3 %; MCH 31.8 pg (27.0-33.0); MCHC 33.8 % (32.0-36.0); MCV 94 fL (80-95); MPV 11.6 fL (8.0-11.0); Monocytes % 4.3 %; Neutrophils % 80.6 %; RBC 4.93 10^6/uL (4.36-5.78); RDW 14.1 % (11.8-14.1); RDW-SD 49.1 fL
[2024-02-11 06:31] LABS: Absolute Eosinophil Count 0.26 10^3/uL (0.0-0.7); Absolute Lymphocyte Count 1.75 10^3/uL (1.2-3.4); Absolute Neutrophil Count 11.45 10^3/uL (1.2-6.7)
[2024-02-11 06:32] LABS: HGB 15.7 g/dL (13.5-17.5); Platelet Count 71 10^3/uL (130-400)
[2024-02-11 06:33] LABS: Lipase 122 U/L (16-77); Magnesium 2.3 mg/dL (1.8-2.4)
[2024-02-11 06:36] LABS: ALT 148 U/L (16-63); AST 65 U/L (15-37); Albumin 2.7 g/dL (3.4-5.0); Alkaline Phosphatase 74 U/L (46-116); Anion Gap 0.7 mmol/L (3-11); BUN 7 mg/dL (7-18); Bilirubin, Total 1.19 mg/dL (0.2-1.0); CO2 38.3 mmol/L (21.0-32.0); CREATININE 0.8 mg/dL (0.70-1.30); Calcium 8.2 mg/dL (8.5-10.1); Chloride 100 mmol/L (98-107); Estimated GFR 107.82 (mL/min/1.73m2); Glucose 86 mg/dL (74-106); Potassium 3.1 mmol/L (3.5-5.1); Sodium 139 mmol/L (136-145); Total Protein 6.2 g/dL (6.4-8.2)
[2024-02-11] MEDS: Pregabalin 100 MG CAP 200 MG PO ×3 (07:40→19:37)
[2024-02-11] MEDS: Nicotine 21 MG/24 HR PATCH TD (07:40)
[2024-02-11] MEDS: ACETAMINOPHEN 1,000 MG/100 ML BTL 400 MG IVPB (07:40)
[2024-02-11] MEDS: DULoxetine 30 MG CAP 60 MG PO (07:40)
[2024-02-11] MEDS: Sennosides/Docusate Sodium TAB 1 TAB PO ×2 (07:41→19:37)
[2024-02-11] MEDS: busPIRone 15 MG TAB PO ×3 (07:41→19:37)
[2024-02-11] MEDS: Potassium Chloride 20 MEQ TABCR 40 MEQ PO (07:41)
[2024-02-11] MEDS: Folic Acid 1 MG TAB PO (07:41)
[2024-02-11] MEDS: cloNIDine 0.1 MG TAB PO ×3 (07:41→19:37)
[2024-02-11] MEDS: Multivitamin TAB 1 TAB PO (07:41)
[2024-02-11] MEDS: Lisinopril 20 MG TAB PO (07:41)
[2024-02-11] MEDS: Thiamine 100 MG TAB PO (07:42)
[2024-02-11] MEDS: PHENobarbital 130 MG/ML VIAL IVP (07:42)
[2024-02-11] MEDS: Normal Saline Flush 10 ML SYR IVP ×3 (07:43→16:30)
[2024-02-11] MEDS: Methadone Liquid 10 MG/ML 135 MG PO (07:51)
--- NOTE | 2024-02-11 08:22 | W.PM.PROGNOT ---
Date of Service Date of service: 02/11/24 Time of Service: 08:22 Assessment and Plan Assessment and plan (1) Alcohol withdrawal: Status: Acute Assessment and plan: History of severe alcohol withdrawal with seizures. CIWA, phenobarb protocol - hit soft limit 02/09. After transition to ICU decision was made to proceed to hard stop. Unfortunately his dosing has slightly exceeded this by mistake. I don't anticipicate negative outcomes associated with this additional phenobarbitol, but I will avoid any further additional barbituate or benzodiazepine use and continue to monitor closely in the ICU. If he becomes agitated again, will use precedex drip. Oral multivits, folic acid and thiamine Sz precautions. (2) Pancreatitis: Status: Chronic Assessment and plan: Due to firmness on abdominal exam, ongoing pain, and WBC increase we repeated CT 10 PM. No necrosis or other complications noted, though worsening pancreatic edema noted. WBC and lipase now trending down. Antibiotics were not started. I don't see an indication for them now. Continue fluids, supportive care. Qualifiers: Chronicity: acute Pancreatitis type: alcohol induced Acute pancreatitis complication: no infection or necrosis Qualified Code(s): K85.20 - Alcohol induced acute pancreatitis without necrosis or infection (3) Chronic respiratory failure with hypoxia: Status: Chronic Assessment and plan: He is close to his baseline O2 requirement and respiratory symptomatology, though O2 need up from 3L to 5L. He does not appear fluid overloaded, no edema or focal infiltrates in lower lung henriquez on CT or suggestion on my exam this morning. Additional O2 may be related to sedation with sedatives and opioids. Continue to monitor. (4) Opiate dependence: Status: Acute Assessment and plan: Continue methadone. BAART verfied dose, also has hydromorphone prn for pain a/w panreatitis. Qualifiers: Substance use status: uncomplicated Qualified Code(s): F11.20 - Opioid dependence, uncomplicated (5) Compression fracture of T8 vertebra: Status: Acute Assessment and plan: New T8 fx on CT, contributing to pain. Tylenol and IBU, and hydromorphone prn Qualifiers: Encounter type: initial encounter Qualified Code(s): S22.060A - Wedge compression fracture of T7-T8 vertebra, initial encounter for closed fracture (6) Acute alcoholic hepatitis: Status: Acute Assessment and plan: Improving despite ongoing pain and acute illness (7) End stage COPD: Status: Chronic Assessment and plan: O2 3 LPM NC baseline - SPO2 ~ 90% (8) Methadone 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: Status: Chronic Assessment and plan: continue methadone (confirmed dose with saleem) (9) DVT prophylaxis: Status: Acute Assessment and plan: lovenox stopped due to dropping platelets, TEDS and SCDs ordered. Normal RBC morphology per review of peripheral smear by tech, pathology review is not available until 02/12. I agree bili is from hepatic injury and it is not getting worse so I don't think there is active hemolysis. (10) Discharge planning issues: Status: Acute Assessment and plan: Full code. Interested in inpatient alcohol rehab at discharge (11) Hypokalemia: Status: Acute Assessment and plan: replaced orally this morning. I ordered an additional 20mEq IV as his QTc is long. Mg okay this morning. Follow (12) HTN (hypertension): Status: Chronic Assessment and plan: BP was high on home lisinopril, likely a/w withdrawal. Using clonidine as adjunct. Now normalizing. Will stop clonidine if we end up using precedex. Qualifiers: Hypertension type: essential hypertension Qualified Code(s): I10 - Essential (primary) hypertension (13) Livedo reticularis: Status: Acute Assessment and plan: lace-patterned redness on RLE not c/w cellulitis, likely caused by acute inflammation from pancreatitis, but will continue to monitor. Subjective Subjective Interval history since last seen: Events: Transferred to ICU. Given 1 liter bolus and fluid at 150/hr for severe pancreatitis per Dr. Rouse. CT A/P showed pancreatitis again but no new findings, no necrososis or abscess. Given 1mg lorazepam at 5am Given above maximum dosing of phenobarbitol this morning I evaluated Garret this morning before additional phenobarbitol given. He was initially somnolent and not responding to exam, including abdominal exam. A minute or so after my exam he woke up and held his mid abdomen complaining of pain as well as anxiety and cravings to drink alcohol. He denies increased SOB from baseline, no fevers. He wants coffee this morning. Nursing noted some streaky redness in the right leg in area proximal to his stump. Exam Narrative Exam Narrative: Gen: Somnolent, but arouses and is oriented. Pupils ~4mm and reactive, sclera non-icteric. Lungs: No distress, able to speak in sentences. No rales, but scattered expiratory wheezing and was on 5 L/min of oxygen CV: RRR, no murmurs/gallops/rubs. Extremities warm. Abdomen: +BS, softer today on my exam, not immediately tender but then clutches abdomen after becoming alert after my exam, no masses. Skin: No rashes or cyanosis. reticular red patch right thigh, not hot or tender Neurological: no focal deficits, and coherent speech. No current tremor. Psychiatric: No hallucinations evident Objective Last Vital Signs Temp 37.3 C 02/11/24 04:01 Pulse 86 02/11/24 07:01 Resp 18 02/11/24 07:50 BP 112/64 02/11/24 07:01 Pulse Ox 87 L 02/11/24 07:50 Laboratory Results - last 24 hr 02/10/24 02/10/24 02/11/24 06:17 21:50 05:28 WBC 14.20 H RBC 4.93 Hgb 15.7 D Hct 46.5 MCV 94 MCH 31.8 MCHC 33.8 RDW 14.1 Plt Count 71 L MPV 11.6 H Immature Gran % 0.8 Neutrophils % 80.6 Lymphocytes % 12.3 Monocytes % 4.3 Eosinophils % 1.8 Basophils % 0.2 Nucleated RBC % 0.0 Absolute Neutrophils 11.45 H Absolute Lymphocytes 1.75 Absolute Monocytes 0.61 Absolute Eosinophils 0.26 Absolute Basophils 0.03 VBG pH 7.50 H VBG pCO2 48 VBG pO2 97 VBG HCO3 38 H VBG Total CO2 32 H VBG O2 Saturation 99 VBG Base Excess 15 H VBG Lactate 1.2 Sodium 139 Potassium 3.1 L Chloride 100 Carbon Dioxide 38.3 H Anion Gap 0.7 L BUN 7 Creatinine 0.8 Est GFR (CKD-EPI 2020) 107.82 Glucose 86 Calcium 8.2 L Magnesium 2.3 Total Bilirubin 1.19 H AST 65 H ALT 148 H Alkaline Phosphatase 74 Total Protein 6.2 L Albumin 2.7 L Lipase 305 H 122 H Add-On Test Request DONE PAWSS Have you Been Recently Intoxicated or Drunk Within the Last 30 days?: Unable to Obtain Have you Ever Experienced Previous Episodes of Alcohol Withdrawal?: Unable to Obtain Have you ever Experienced Withdrawal Seizures?: Unable to Obtain Have you ever Experienced Delirium Tremens(DT)s?: Unable to Obtain Have you ever undergone Alcohol Rehabilitation Treatment (i.e, inpt ot outpatient treatment programs)?: Unable to Obtain Have you ever Experienced Blackouts?: Unable to Obtain Have you ever Combined Alcohol with other Downers within the last 90 days?: Unable to Obtain Have you ever Combined Alcohol with any other Substance of Abuse during the last 90 days?: Unable to Obtain Positive Blood Alcohol level on Presentation? [PCS.BAL]: Unable to Obtain Evidence of Increased Autonomic Activity (i.e. HR>120, tremor, sweating, agitation, nausea)?: Unable to Obtain Time Spent with Patient Time Spent with Patient: >50 minutes Time was spent: preparing to see the patient(eg.review tests), obtaining and/or reviewing separately otained hiistory, ordering medications,tests, procedures, referring, communicating with other health health care administrator, indepentently interpreting results, counseling the patient and care coordination
--- NOTE | 2024-02-11 09:52 | PHACLINREV_ITS ---
Pharmacy Admission Review Admission Clinical Review Admission Pharmacy Review: (Updated 02/11/24 @ 09:11 by Ugo Galvan) Livedo reticularis (Acute) Hypokalemia (Acute) Compression fracture of T8 vertebra (Acute) Acute alcoholic hepatitis (Acute) Discharge planning issues (Acute) DVT prophylaxis (Acute) Alcohol withdrawal (Acute) Opiate dependence (Acute) Penicillins Allergy (Severe, Unverified 02/09/24 10:27) Anaphylaxsis prednisone Adverse Reaction (Verified 02/09/24 10:27) Other (See Comment) Resuscitation Status Full Code Height 5 ft 9 in Weight 86.6 kg Comments Comments/Follow Ups: Patient slightly exceeded Phenobarbital hard stop (HS 1414mg) based on IBW 70.7kg, rec'd 1480mg-MD aware Overnight rec'd Lorazepam 1mg IV x1 CIWA highest @ 21, this morning it is 1; Clonidine added for symptoms Methadone 135mg daily dose was verified by ED staff w/local [facility] Pharmacy Admission Review Renal Dosing Renal Dosing: BUN 7 mg/dL (7-18) 02/11/24 05:28 Creatinine 0.8 mg/dL (0.70-1.30) 02/11/24 05:28 CrCl>100ml/min Anticoagulation Anticoagulation: Hgb 15.7 g/dL (13.5-17.5) D 02/11/24 05:28 Hct 46.5 % (40.0-50.0) 02/11/24 05:28 Plt Count 71 10^3/uL (130-400) L 02/11/24 05:28 Creatinine 0.8 mg/dL (0.70-1.30) 02/11/24 05:28 DVT Prophylaxis: N/A (Platelets decreasing, currently 71) Opiate Usage Evaluate Pain Scale/Pains Meds: Reviewed (Abdominal pain/pancreatitis pain 02/07, has Dilaudid x 3 doses (1.5mg total) last 24 hours) Relevant Labs Relevant Labs: Sodium 139 mmol/L (136-145) 02/11/24 05:28 Potassium 3.1 mmol/L (3.5-5.1) L 02/11/24 05:28 Chloride 100 mmol/L (98-107) 02/11/24 05:28 Magnesium 2.3 mg/dL (1.8-2.4) 02/11/24 05:28 Electrolytes, C-Reactive P, ESR: Reviewed (Potassium supplemented, Bilirubin down a little 1.19, LFT's declining, WBC declining, Plt 71) Cardiac Review Cardiac Review: Troponin I Cancelled 02/09/24 13:28 BP, HR, EF%: Reviewed (BP elevated due to withdrawl 138/91, HR 83....Has Lisinopril 20mg daily)) QTc Review QTc: Intervened (QTC 472) List meds needing interventions: Discussed nausea meds with potential for QTC prolongation, monitoring EKG more frequently. Both Methadone, Seroquel and Ondansetron are QTC prolonging medications Did receive a dose of Palonestron overnight IV to PO Switch IV Medications: Reviewed (was NPO, now clear liquids only....pain meds are IVP, does have IVF's) Home Meds Home Med List reviewed: Reviewed Current Meds Current Medication Order Review: Reviewed Comments Comments/Follow Ups: Patient slightly exceeded Phenobarbital hard stop (HS 1414mg) based on IBW 70.7kg, rec'd 1480mg-MD aware Overnight rec'd Lorazepam 1mg IV x1 CIWA highest @ 21, this morning it is 1; Clonidine added for symptoms Methadone 135mg daily dose was verified by ED staff w/local [facility]
[2024-02-11] MEDS: POTASSIUM CHLORIDE 20 MEQ/100 ML BAG 50 MEQ IV_INF (10:46)
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
[2024-02-11] MEDS: Acetaminophen 500 MG TAB 1000 MG PO (16:26)
[2024-02-11] MEDS: QUEtiapine 300 MG TAB PO (19:37)
[2024-02-12] VITALS (17 sets, daily range): BP systolic 136–174; BP diastolic 80–99; PULSE 84–104; RESP 8–22; TEMP 36.4–38.6; O2SAT 87–95
[2024-02-12] MEDS: Lactated Ringers 1,000 ML 150 ML IV (00:02)
[2024-02-12] MEDS: Acetaminophen 500 MG TAB 1000 MG PO ×2 (00:13→13:24)
[2024-02-12] MEDS: Ibuprofen 600 MG TAB PO (00:13)
[2024-02-12] MEDS: HYDROmorphone 2 MG/ML VIAL 0.5 MG IVP ×4 (00:48→15:52)
--- NOTE | 2024-02-12 02:11 | W.PC.ACHO ---
Registration Status: Primary Language: Preferred Language: ED Information & Data Chief Complaint ETOHWithdr 02/09/24 10:31 Triage Note Pt arrives to the ED stating 02/09/24 10:10 he's been, drinking a half gallon of liquor a day x several days and feels awful . Pt states he wants to detox. Pt has not had anything to drink today. Pt states he got his dose of methadone from [facility] today and threw it up. C/O CP, back pain, and concerned he has pneumonia. Pt takes 135 mg of methadone daily. Pt has detoxed from ETOH before and has had withdrawal seizures. Last drink was yesterday around 1800 hrs Pt is on 3 L of O2 at home Medical / Surgical History (Last Reviewed 01/12/24 @ 08:48 by Pearl Kamara NP) Hypercholesterolemia Hx of substance abuse Chronic hepatitis Opiate withdrawal Hypoxia Pulmonary nodule Chronic respiratory failure Palliative care patient Alcohol withdrawal seizure COPD (chronic obstructive pulmonary disease) Narcotic abuse Asthma (Last Reviewed 01/12/24 @ 08:48 by Pearl Kamara NP) Status post below-knee amputation S/P ORIF (open reduction internal fixation) fracture Hx of BKA History of tonsillectomy History of hand surgery Most Recent Vital Signs Temperature 36.6 C 02/11/24 22:24 Temperature Source Temporal Artery Scan 02/11/24 22:24 Pulse 70 02/11/24 22:24 Pulse Rhythm Regular 02/09/24 15:34 Pulse 93 H 02/11/24 20:00 Respiratory Rate 14 02/11/24 22:24 Respiratory Effort Normal 02/09/24 15:34 Respiratory Depth Normal 02/09/24 15:34 Respiratory Pattern Normal 02/09/24 15:34 Blood Pressure 140/84 02/11/24 22:24 Blood Pressure Mean 122 02/11/24 19:19 Blood Pressure Position Sitting 02/09/24 10:10 Pulse Oximetry 91 L 02/11/24 23:52 Oxygen Delivery Method Nasal Cannula 02/11/24 23:52 Oxygen Flow Rate 6 02/11/24 23:52 Pain Level 10 02/12/24 00:48 Comment Increased to 5L O2 02/10/24 20:55 Allergies Penicillins Allergy (Severe, Unverified 02/09/24 10:27) Anaphylaxsis prednisone Adverse Reaction (Verified 02/09/24 10:27) Other (See Comment) Anxiety Precautions Isolation Seizure precaution 02/09/24 10:22 Active Medications Generic Name Dose Route Start Last Admin Trade Name Gageq PRN Reason Stop Dose Admin Acetaminophen 1,000 mg 02/11/24 15:04 02/12/24 00:13 Acetaminophen 500 Mg Tab PO 1,000 mg Q6H PRN PRN Administration Buspirone HCl 15 mg 02/09/24 15:10 02/11/24 19:37 Buspirone 15 Mg Tab PO 15 mg TID ADOLFO Administration Clonidine 0.1 mg 02/10/24 11:00 02/11/24 19:37 Clonidine 0.1 Mg Tab PO 0.1 mg TID ADOLFO Administration Duloxetine HCl 60 mg 02/10/24 08:30 02/11/24 07:40 Duloxetine 30 Mg Cap PO 60 mg DAILY ADOLFO Administration Folic Acid 1 mg 02/10/24 08:30 02/11/24 07:41 Folic Acid 1 Mg Tab PO 02/16/24 08:31 1 mg QAM ADOLFO Administration Hydromorphone HCl 0.5 mg 02/10/24 11:35 02/12/24 00:48 Hydromorphone 2 Mg/Ml Vial IVP 0.5 mg Q4H PRN PRN Administration Ringer's Solution 1,000 mls @ 150 mls/hr 02/10/24 20:45 02/12/24 00:02 IV 150 mls/hr INFUSION ADOLFO Administration Ibuprofen 600 mg 02/09/24 15:32 02/12/24 00:13 Ibuprofen 600 Mg Tab PO 600 mg BID PRN PRN Administration Lisinopril 20 mg 02/10/24 08:30 02/11/24 07:41 Lisinopril 20 Mg Tab PO 20 mg DAILY ADOLFO Administration Methadone HCl 135 mg 02/10/24 08:30 02/11/24 07:51 Methadone Liquid 10 Mg/Ml PO 135 mg DAILY ADOLFO Administration Mometasone Furoate 2 puff 02/09/24 20:00 02/11/24 20:08 Mometasone 220 Mcg 14 Dose Inhaler IH 2 puffs BID ADOLFO Administration Multivitamins 1 tab 02/10/24 08:30 02/11/24 07:41 Multivitamin Tab PO 02/16/24 08:31 1 tab QAM ADOLFO Administration Nicotine 21 mg 02/11/24 08:30 02/11/24 07:40 Nicotine 21 Mg/24 Hr Patch TD 21 mg DAILY ADOLFO Administration Pregabalin 200 mg 02/09/24 20:00 02/11/24 19:37 Pregabalin 100 Mg Cap PO 200 mg TID ADOLFO Administration Quetiapine Fumarate 300 mg 02/09/24 20:00 02/11/24 19:37 Quetiapine 300 Mg Tab PO 300 mg HS ADOLFO Administration Senna/Docusate Sodium 1 tab 02/09/24 20:00 02/11/24 19:37 Sennosides/Docusate Sodium Tab PO 1 tab BID ADOLFO Administration Sodium Chloride 0 ml 02/09/24 17:34 02/11/24 16:30 Normal Saline Flush 10 Ml Syr IVP 10 ml PRN PRN Administration Thiamine HCl 100 mg 02/10/24 08:30 02/11/24 07:42 Thiamine 100 Mg Tab PO 02/16/24 08:31 100 mg QAM ADOLFO Administration Tiotropium Hob[place]/Olodaterol 2 puff 02/10/24 08:30 02/11/24 05:47 Tiotropium/Olodaterol 10 Puff Inhaler IH 2 puffs DAILY ADOLFO Administration IV IV Catheter Type [rt wrist] Peripheral IV IV Catheter Type [rt hand] Saline Lock IV Catheter Type [Left Saline Lock Antecubital] IV Catheter Type [Left Forearm Saline Lock ] IV Catheter Type [Right Saline Lock Forearm] IV Catheter Gauge [rt wrist] 20 IV Catheter Gauge [rt hand] 20 IV Catheter Gauge [Left 18 Antecubital] IV Catheter Gauge [Left 20 Forearm] IV Catheter Gauge [Right 18 Forearm] Diagnostics 02/12/24 02/11/24 Range/Units 05:35 05:28 WBC Pending 14.20 H (4.4-10.8) 10^3/uL RBC Pending 4.93 (4.36-5.78) 10^6/uL Hgb Pending 15.7 D (13.5-17.5) g/dL Hct Pending 46.5 (40.0-50.0) % MCV Pending 94 (80-95) fL MCH Pending 31.8 (27.0-33.0) pg MCHC Pending 33.8 (32.0-36.0) % RDW Pending 14.1 (11.8-14.1) % Plt Count Pending 71 L (130-400) 10^3/uL MPV Pending 11.6 H (8.0-11.0) fL Immature Gran % Pending 0.8 % Neutrophils % Pending 80.6 % Lymphocytes % Pending 12.3 % Monocytes % Pending 4.3 % Eosinophils % Pending 1.8 % Basophils % Pending 0.2 % Nucleated RBC % 0.0 (0.0-0.3) % Absolute Neutrophils Pending 11.45 H (1.2-6.7) 10^3/uL Absolute Lymphocytes Pending 1.75 (1.2-3.4) 10^3/uL Absolute Monocytes Pending 0.61 (0.1-0.8) 10^3/uL Absolute Eosinophils Pending 0.26 (0.0-0.7) 10^3/uL Absolute Basophils Pending 0.03 (0.0-0.2) 10^3/uL Sodium Pending 139 (136-145) mmol/L Potassium Pending 3.1 L (3.5-5.1) mmol/L Chloride Pending 100 (98-107) mmol/L Carbon Dioxide Pending 38.3 H (21.0-32.0) mmol/L Anion Gap Pending 0.7 L (3-11) mmol/L BUN Pending 7 (7-18) mg/dL Creatinine Pending 0.8 (0.70-1.30) mg/dL Est GFR (CKD-EPI 2020) Pending 107.82 (mL/min/1.73m2) Glucose Pending 86 (74-106) mg/dL Calcium Pending 8.2 L (8.5-10.1) mg/dL Magnesium 2.3 (1.8-2.4) mg/dL Total Bilirubin 1.19 H (0.2-1.0) mg/dL AST 65 H (15-37) U/L ALT 148 H (16-63) U/L Alkaline Phosphatase 74 (46-116) U/L Total Protein 6.2 L (6.4-8.2) g/dL Albumin 2.7 L (3.4-5.0) g/dL Lipase 122 H (16-77) U/L 02/12/24 00:45 Sputum Culture - Pending Sputum Gram Stain - Final 02/10/24 21:50 Blood Culture - Preliminary Blood NO GROWTH 24 HOURS 02/10/24 21:53 Blood Culture - Preliminary Blood NO GROWTH 24 HOURS Intake and Output - 24 Hour Total 02/09/24 10:08 thru 02/12/24 00:38 Intake Total 7936.2176 Output Total 4265 Balance 3671.2176 Weight 86.6 kg Intake: IV 6276.2176 Oral 1660 Output: Urine 4250 Emesis 15 Other: Urine Color Straw Urine Appearance Clear Urine Odor Normal Comment Incontinent of a large amount of urine, consistent in estimated volume with his documented history of voiding 400+ ml at a time. Patient very somnolent at this time. Stool Size Small Stool Characteristics Soft Brown Emesis Description Undigested Food Voiding Methods Urinal Urinary Catheter Urinary Catheter Date of 02/10/24 Insertion [Urethral (Peoples)] Urinary Catheter Date of 02/10/24 Insertion [Urethral (Peoples)] Urinary Catheter Date of 02/10/24 Insertion [Urethral (Peoples)] Time of insertion [Urethral ( 22:50 Peoples)] Falls Risk Assessment History of Falls No History 02/09/24 15:34 Contributing Factors No Factors 02/09/24 15:34 Ambulatory Aids Independent 02/09/24 15:34 Tubes/Lines W/no contributing factors 02/09/24 15:34 Gait Evaluation W/no contributing factors 02/09/24 15:34 Cognition No cognitive impairment 02/09/24 15:34 Fall Total Score 20 02/09/24 15:34 Level of Risk Standard/Low Risk 02/09/24 15:34 Problems (Last Reviewed 01/12/24 @ 08:48 by Pearl Kamara NP) Livedo reticularis (Acute) Hypokalemia (Acute) Compression fracture of T8 vertebra (Acute) Acute alcoholic hepatitis (Acute) Pancreatitis (Chronic) End stage COPD (Chronic) Methadone 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 (Chronic) HTN (hypertension) (Chronic) Discharge planning issues (Acute) DVT prophylaxis (Acute) Alcohol withdrawal (Acute) Opiate dependence (Acute) Chronic respiratory failure with hypoxia (Chronic) Notes 02/10/24 23:40 (created 02/10/24 23:54) Nursing Notes by Lauri Bentonuro Nursing Note: Dr Rouse in to see pt, updated on pt's condtion, aware of pending K replacement, on top of previous K given earlier today, states ok to give remaining K replacement, no further orders given, will just wait for am labs to see potassium levels. Initialized on 02/10/24 23:54 - END OF NOTE 02/10/24 20:59 Nursing Notes by Tiera Gresham Pt's vitals rechecked, RR 7bpm, desating, 02 increased to 5L. Pt minimally responsive to verbal stimuli. Bp dropped to 97/54. ICU notified, pt transferred to ICU report given to Johana DIGITAL DEVELOPER. Dr. Rouse aware of transport. Initialized on 02/10/24 20:59 - END OF NOTE v v v v v v v v v Sending and/or Receiving Nurses: Please use comment section below to note any information pertinent to the patient hand-off not included above. Information / Comments: Patient being treated for ETOH withdrawal, pancreatitis, end stage COPD. Lungs are diminished and coarse crackles. Patient wants influenza and COVID vaccines when discharging. There is an order in for his COVID vaccine but needs to be verified that we will give it at discharge. Patient has a palliative consult pending. Patient is on a regular diet, tolerating food at this time. Patient has 18 ga in left antecubital. Patient needs a sputum sample to be collected as he had some pink mucous coughed up earlier. Patient had a chest x-ray this afternoon. Report received from: CHRISTINE Davila (ICU)
[2024-02-12] MEDS: Ipratropium/Albuterol 4 GM 120 PUFF INH IH ×4 (03:44→22:59)
[2024-02-12] MEDS: cloNIDine 0.1 MG TAB PO ×4 (06:25→22:11)
[2024-02-12 06:35] LABS: Abs Immature Grans 0.07 10^3/uL (0.0-0.06); Absolute Basophil Count 0.03 10^3/uL (0.0-0.2); Absolute Lymphocyte Count 1.11 10^3/uL (1.2-3.4); Absolute Monocyte Count 0.49 10^3/uL (0.1-0.8); Absolute Neutrophil Count 8.14 10^3/uL (1.2-6.7); Basophils % 0.3 %; Eosinophils % 3.9 %; HCT 41.5 % (40.0-50.0); HGB 14.1 g/dL (13.5-17.5); Immature Grans % 0.7 %; Lymphocytes % 10.8 %; MCH 32.2 pg (27.0-33.0); MCV 95 fL (80-95); MPV 12.2 fL (8.0-11.0); Monocytes % 4.8 %; Neutrophils % 79.5 %; RBC 4.38 10^6/uL (4.36-5.78); RDW-SD 49.5 fL; WBC 10.24 10^3/uL (4.4-10.8)
[2024-02-12 06:54] LABS: BUN 6 mg/dL (7-18); CREATININE 0.7 mg/dL (0.70-1.30); Calcium 7.8 mg/dL (8.5-10.1); Chloride 100 mmol/L (98-107); Estimated GFR 112.25 (mL/min/1.73m2); Glucose 89 mg/dL (74-106); Potassium 3.2 mmol/L (3.5-5.1); Sodium 140 mmol/L (136-145)
--- NOTE | 2024-02-12 07:12 | W.NUTRFU ---
Date of service: 02/12/24 Time of Service: 07:12 Nutrition Note NOTE: Pt is 48yo male admitted for alcohol w/drawl, acute hepatitis. Diet was advanced this morning and was not tolerated - pt reports vomiting. Abdomen is very distended with pt c/o abd pain. Folate, thiamine, and MVI tab ordered - would suggest B12 level as well Pt also reports constipation with no BM xlast 3 days - ordered for stool softener/laxative. Poor po intake leading up to admission with pt stating very little to no intake the last 3-4 days. Nutrition dx - inadequate intake due to pain associated with pancreatitis and acute hepatitis as evidenced by poor to no po intake x3 days. Will supply boost breeze clear liquid ONS with extra protein on his meal trays while clear liquids are ordered. Time Spent in Nutritional Counseling and Treatment: 15 min
[2024-02-12 07:19] LABS: Diff Comment Diff Reviewed; Platelet Count 65 10^3/uL (130-400); RBC Morphology Normal
[2024-02-12] MEDS: Mometasone 220 MCG 14 DOSE INHALER 2 PUFF IH ×2 (08:13→20:11)
[2024-02-12] MEDS: Tiotropium/Olodaterol 10 PUFF INHALER 2 PUFF IH (08:13)
[2024-02-12] MEDS: Methadone Liquid 10 MG/ML 135 MG PO (08:25)
[2024-02-12] MEDS: DULoxetine 30 MG CAP 60 MG PO (08:26)
[2024-02-12] MEDS: Pregabalin 100 MG CAP 200 MG PO ×2 (08:28→13:25)
[2024-02-12] MEDS: Thiamine 100 MG TAB PO (08:29)
[2024-02-12] MEDS: Sennosides/Docusate Sodium TAB 1 TAB PO (08:29)
[2024-02-12] MEDS: Multivitamin TAB 1 TAB PO (08:29)
[2024-02-12] MEDS: busPIRone 15 MG TAB PO ×3 (08:30→20:37)
[2024-02-12] MEDS: Folic Acid 1 MG TAB PO (08:30)
[2024-02-12] MEDS: Lisinopril 20 MG TAB PO (08:30)
[2024-02-12] MEDS: Normal Saline Flush 10 ML SYR IVP ×5 (08:31→22:34)
[2024-02-12] MEDS: Nicotine 21 MG/24 HR PATCH TD (08:38)
--- NOTE | 2024-02-12 08:39 | PDOC.CMPRO ---
Date of service: 02/12/24 Time of Service: 08:40 Care Management Progress Note Progress Note Text Progress Note Text: Edd was sitting up in a chair when CM met with him. He was polite and agreeable to conversation but stated that he is really sick. He endorsed severe abdominal and back pain He informed CM the abdominal pain is from his liver and pancreas and the back pain is from a fractured vertebra. 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 He assumes that is the origin of his injury. Edd is chronically on methadone so it is a bit more challenging to get his pain under control. He reported to CM that he never intends to drink alcohol again. He stated it is killing me. He stated he would rather shoot himself than drink again. Discharge Potential Discharge Needs: PCP F/U Appt Anticipated Barriers to Discharge: None Identified Patient/Family Education Needs: Review discharge instructions, discuss Ask Me Three Transportation: RCT (Anticipate Edd will be discharged home with no new services. He will follow up with his Composing Machine Operator/Tender and plan of care and transport via RCT coordinated by CM. CM will follow and continue to assess for discharge needs.) Plan: Anticipate Edd will be discharged home with no new services when medically cleared. He will follow up with his PCP and plan of care and transport via RCT coordinated by CM. CM will follow and continue to assess for discharge needs. SDOH(Care Management) Screening Will the Patient Participate in the Screening?: Yes Do you worry about having a steady place to live?: no In the past 12 months, have you had to go without electric, gas, oil or water in your home?: no Have you or anyone in your house had to go without enough food to eat?: no Has lack of transportation kept you from medical appointments or from doing things needed for daily living?: no Has anyone in your support network made you feel unsafe for any reason?: no
[2024-02-12] MEDS: Albuterol/Ipratropium 3 ML UPD VIAL UPD ×2 (09:30→20:05)
--- NOTE | 2024-02-12 09:48 | PT.INTREAT ---
PT Notes Visit Reasons: Alcohol withdrawal Inpatient Physical Therapy Treatment Note Date: 02/12/2024 Precautions: Activity as tolerated. Standard precautions. On 6 L of oxygen continuous oxygen via NC as of 02/12/2024. Transtibial residual limb on R. Subjective: I feel lame today. Patient aware that he is over a year overdue for another prosthesis. He added that he needs to schedule with [facility] orthotics/prosthetics for another fitting as soon as he is discharged from hospital. No report of pain in residual transtibial limb. Did report chronic back pain at 4-5/10 in backk from compression fracture. Objective: General Observation: Telemetry in place. Worn out R transtibial prostheiss with anteromedial cosmetic lining on the leg part torn but with intact/stable pylon Mental Status: Alert and oriented x3 Pain: 5/10 back pain Vital Signs: Oxygen saturation lowest of 85% which bounced back up to 90% in less than a minute on 6 L/minute Bed Mobility/Transfers: Supine-sit: independent Sit-stand: supervision Stand-sit: supervision Gait: Kristie slower than yesterday with report of feeling lame midway through the walk. Was able to complet 250 feet but needed to sit down one fourth [address] the way as plethysmograph on tele was not reading well. Using another machine, patient was at 89% and so he was asked to continue when he was ready. He was able to finish the rest of the walk but with a slower pace. Reported pain in low back at 4-5/10. Wheelchair follow provided by JOÃO Delgado. Balance: Static Sitting: Normal Dynamic Sitting: Good Static Standing: Fair Dynamic Standing: Fair Assessment: Patient's kristie slower today. Continues to report pain in back from previous compression fracture. Pain report better today compared to yesterday. Will highly benefit from prosthetic re-assessment and fitting to ensure that a new one is received that will allow full return to previous activities while reducing fall risk. Continued services are needed to facilitate return to independent mobility level without an assistive device. Plan of Care/Treatment Plan: 1-2x/day, 7 days/week x 1 week. Plan of care has been reviewed with the REGISTERED PHYSICAL THERAPIST providing the service under Physical Therapy direction. Initiate Physical Therapy intervention for strengthening, bed mobility, transfers, gait, stairs, balance training, use of assistive device. DISCHARGE RECOMMENDATIONS: PT to continue strengthening for improved activity tolerance, facilitate procurement of new transtibial prosthesis, and promote return to community ambulation/vocational activities. TREATMENT CODE/TIME: 59768 x 38 minutes for 3 units (9:48-10:26).
[2024-02-12] MEDS: POTASSIUM CHLORIDE 20 MEQ/100 ML BAG 25 MEQ IV_INF (11:16)
[2024-02-12] MEDS: Lactated Ringers 1,000 ML 100 ML IV (11:17)
[2024-02-12] MEDS: Furosemide 20 MG/2 ML VIAL IVP (11:50)
--- NOTE | 2024-02-12 12:52 | NUR.NOTE ---
Patient verbalized that he was very anxious and he felt the fonseca were closing in on him. Shades in the room were raised, which helped, but he stated he was still feeling anxious. PRN dose of clonidine 0.1mg given. Patient repositioned with some pillows and comforted. Replenished water and ice. Will continue to assess and assist with anxiety as necessary. Nursing Note:
[2024-02-12] MEDS: Potassium Chloride 20 MEQ TABCR PO ×2 (13:25→20:24)
--- NOTE | 2024-02-12 13:33 | PGE_ITS ---
Date of Service Date of service: 02/12/24 Time of Service: 09:30 Assessment and Plan Assessment and plan (1) Alcohol withdrawal: Status: Acute Assessment and plan: History of severe alcohol withdrawal with seizures. CIWA, phenobarb protocol - hit soft limit 02/09. After transition to ICU decision was made to proceed to hard stop. Unfortunately his dosing has slightly exceeded this by mistake. I don't anticipicate negative outcomes associated with this additional phenobarbitol, but I will avoid any further additional barbituate or benzodiazepine use and continue to monitor closely in the ICU. If he becomes agitated again, will use precedex drip. Oral multivits, folic acid and thiamine Sz precautions. (2) Fever: Status: Acute Assessment and plan: WBC trending down, but fever curve trending up. CXR didn't show a clear focal pneumonia, but certainly there could be an infection there. I thinks given the trend and his overall level of illness with increased oxygen requirement and sputum I will treat for hospital acquired pneumonia. He is not septic so use cefepime (confirmed he has tolerated ceftriaxone multiple times despite PCN anaphylaxis history). Will repeat blood cultures and urine Get procalcitonin, if low, repeat in 48-72 hours to see if we can limit antibiotic duration. (3) Pancreatitis: Status: Chronic Assessment and plan: Due to firmness on abdominal exam, ongoing pain, and WBC increase we repeated CT 10/12 PM. No necrosis or other complications noted, though worsening pancreatic edema noted. WBC and lipase trending down, but pain worse this morning after eating. Back to clear diet, continuesupportive care. Qualifiers: Chronicity: acute Pancreatitis type: alcohol induced Acute pancreatitis complication: no infection or necrosis Qualified Code(s): K85.20 - Alcohol induced acute pancreatitis without necrosis or infection (4) Chronic respiratory failure with hypoxia: Status: Chronic Assessment and plan: He is a little worse than his baseline O2 requirement and respiratory symptomatology, O2 need up from 3L to 6L. I thought he may have been a little fluid overloaded this morning, given a dose of furosemide, but now with fevers spiking I am adding antibiotics. Additional O2 does not appear to be related to sedation with sedatives and opioids. Continue to monitor. (5) Opiate dependence: Status: Acute Assessment and plan: Continue methadone. [facility] verfied dose, also has hydromorphone prn for pain a/w panreatitis. Qualifiers: Substance use status: uncomplicated Qualified Code(s): F11.20 - Opioid dependence, uncomplicated (6) Compression fracture of T8 vertebra: Status: Acute Assessment and plan: New T8 fx on CT, contributing to pain. Tylenol and IBU, and hydromorphone prn Qualifiers: Encounter type: initial encounter Qualified Code(s): S22.060A - Wedge compression fracture of T7-T8 vertebra, initial encounter for closed fracture (7) Acute alcoholic hepatitis: Status: Acute Assessment and plan: Improving despite ongoing pain and acute illness. follow (8) End stage COPD: Status: Chronic Assessment and plan: O2 3 LPM NC baseline - SPO2 ~ 90%, some degree of exacerbation now. Schedule nebs, treating with antibiotics Given current level of anxiety and history of severe anxiety on steroids, I will not start these for now. (9) Methadone 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: Status: Chronic Assessment and plan: continue methadone (confirmed dose with saleem) (10) DVT prophylaxis: Status: Acute Assessment and plan: lovenox stopped due to dropping platelets, TEDS and SCDs ordered. Normal RBC morphology per review of peripheral smear by [facility], pathology review is not available until 02/12. I agree bili is from hepatic injury and it is not getting worse so I don't think there is active hemolysis. (11) Discharge planning issues: Status: Acute Assessment and plan: Full code. Interested in inpatient alcohol rehab at discharge, recovery center aware. Flu/COVID vaccines when ready for discharge. (12) Hypokalemia: Status: Acute Assessment and plan: replaced orally this morning. I ordered an additional 20mEq IV as his QTc is long. Mg okay this morning. Follow (13) HTN (hypertension): Status: Chronic Assessment and plan: BP was high on home lisinopril, likely a/w withdrawal. Using clonidine as adjunct. Now normalizing. Will stop clonidine if we end up using precedex. Qualifiers: Hypertension type: essential hypertension Qualified Code(s): I10 - Essential (primary) hypertension (14) Livedo reticularis: Status: Acute Assessment and plan: lace-patterned redness on RLE not c/w cellulitis, likely caused by acute inflammation from pancreatitis, but will continue to monitor. Subjective Subjective Patient reports: voiding w/o difficulty, nausea, vomiting and fever; denies bowel movement or diarrhea Interval history since last seen: Events: transferred from ICU yesterday. Has been walking well with RN and PT, lopez out IV fluids overnight LR @150/hr, stopped this morning Low grade fevers overnight. CXR done with interstitial prominence, not a clear new infiltrate. sputum culture sent He feels worse pain in abdomen suddenly this morning after eating solids, like tearing. feels in mid back as well. A/w nausea, wretching. he can't take his pills this morning or eat any more. Still making thick sputum. SOB is about the same. He states he gets crazy when he takes steroids but they do work, states he would need his ativan. Exam Narrative Exam Narrative: Gen: Alter and oriented, uncomfortable sitting on side of bed. Sclera non- icteric. Lungs: Moderately dyspneic (with oxygen off blowing his nose), able to speak in sentences. No rales, but scattered expiratory wheezing and was on 6 L/min of oxygen, diminished in bases CV: RRR, no murmurs/gallops/rubs. Extremities warm. Abdomen: +BS, slightly firmer today on my exam but not as firm as 02/09, diffusely tender more in left side, no rebound. No ascities. Skin: No rashes or cyanosis. reticular red patch right thigh, not hot or tender Neurological: no focal deficits, and coherent speech. No current tremor. Psychiatric: No hallucinations evident Objective Last Vital Signs Temp 38.3 C H 02/12/24 13:12 Pulse 101 H 02/12/24 13:12 Resp 19 02/12/24 11:33 BP 174/93 H 02/12/24 13:12 Pulse Ox 91 L 02/12/24 13:12 Laboratory Results - last 24 hr 02/12/24 05:58 WBC 10.24 RBC 4.38 Hgb 14.1 Hct 41.5 MCV 95 MCH 32.2 MCHC 34.0 RDW 14.0 Plt Count 65 L MPV 12.2 H Immature Gran % 0.7 Neutrophils % 79.5 Lymphocytes % 10.8 Monocytes % 4.8 Eosinophils % 3.9 Basophils % 0.3 Nucleated RBC % 0.0 Absolute Neutrophils 8.14 H Absolute Lymphocytes 1.11 L Absolute Monocytes 0.49 Absolute Eosinophils 0.40 Absolute Basophils 0.03 RBC Morphology Normal Sodium 140 Potassium 3.2 L Chloride 100 Carbon Dioxide 36.0 H Anion Gap 4.0 BUN 6 L Creatinine 0.7 Est GFR (CKD-EPI 2020) 112.25 Glucose 89 Calcium 7.8 L PAWSS Have you Been Recently Intoxicated or Drunk Within the Last 30 days?: Yes Have you Ever Experienced Previous Episodes of Alcohol Withdrawal?: Yes Have you ever Experienced Withdrawal Seizures?: Yes Have you ever Experienced Delirium Tremens(DT)s?: Yes Have you ever undergone Alcohol Rehabilitation Treatment (i.e, inpt ot outpatient treatment programs)?: Yes Have you ever Experienced Blackouts?: Yes Have you ever Combined Alcohol with other Downers within the last 90 days?: No Have you ever Combined Alcohol with any other Substance of Abuse during the last 90 days?: Unable to Obtain Positive Blood Alcohol level on Presentation? [PCS.BAL]: Unable to Obtain Evidence of Increased Autonomic Activity (i.e. HR>120, tremor, sweating, agitation, nausea)?: Yes Result: 7 Time Spent with Patient Time Spent with Patient: >50 minutes Time was spent: preparing to see the patient(eg.review tests), obtaining and/or reviewing separately otained hiistory, ordering medications,tests, procedures, referring, communicating with other health child care centre manager, indepentently interpreting results, counseling the patient and care coordination
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
[2024-02-12] MEDS: CEFEPIME 2 GM in Normal Saline 100 ML IVPB ×2 (14:53→22:11)
[2024-02-12] MEDS: POTASSIUM CHLORIDE 20 MEQ/100 ML BAG 40 MEQ IV_INF (15:11)
[2024-02-12 15:59] LABS: Procalcitonin 3.2 ng/mL
[2024-02-12 16:01] LABS: COVID-19 PCR Negative (Negative); Influenza A PCR Negative (Negative); Influenza B PCR Negative (Negative); RSV PCR Negative (Negative)
[2024-02-12 16:02] LABS: Source Nasopharynx
[2024-02-12] MEDS: DOXYCYCLINE 100 MG in Normal Saline 100 ML IVPB (17:07)
[2024-02-12 17:59] LABS: MRSA PCR Negative (Negative)
[2024-02-12] MEDS: methylPREDNISolone SUCC 125 MG VIAL 60 MG IVP (20:19)
--- NOTE | 2024-02-12 20:21 | DI.RAD_ITS ---
Exam(s) XR PORTABLE CHEST AP EXAM: XR PORTABLE CHEST AP CLINICAL HISTORY: Cough with increased oxygen needs TECHNIQUE: 2D digital imaging was performed of the chest. One image was obtained. An AP view was ob tained. COMPARISON: CR XR PORTABLE CHEST AP from 02/09/2024 CR XR CHEST 2V PA LATERAL from 02/11/2024 FINDINGS: MEDIASTINUM: Normal. HEART: Normal. PULMONARY VASCULATURE: Normal. LUNGS: There again seen bilateral predominantly basilar infiltrates which have progressed particularl y in the right lower lobe. The lungs appear hyperinflated suggesting underlying COPD. PLEURAL SPACE: No pleural effusion or pneumothorax. BONE:Within normal limits for the patient's age. OTHER FINDINGS:Normal. IMPRESSION: Interval progression of the infiltrates in the right lung base since the prior examination on . There are persistent bilateral basilar infiltrates. These findings may represent pneumonia. A telectasis or pulmonary edema should also be considered. Please correlate clinically. DATA REPOSITORY: RADIATION DOSE DELIVERED:
[2024-02-12] MEDS: MORPHine 4 MG/ML SYR IVP ×2 (20:22→22:30)
[2024-02-12] MEDS: Benzonatate 100 MG CAP PO (20:24)
[2024-02-12] MEDS: Furosemide 40 MG/4 ML VIAL IVP (20:37)
[2024-02-12 20:38] LABS: BE (Venous) 16 mmol/L (-2-3); HCO3 (Venous) 40 mmol/L (23-28); O2 Sat (Venous) 58 %; TCO2 (Venous) 35 mmol/L (24-29); pCO2 (Venous) 57 mmHg (41-51); pH (Venous) 7.45 (7.31-7.41); pO2 (Venous) 28 mmHg
--- NOTE | 2024-02-12 21:44 | DI.VRAD_ITS ---
PROCEDURE INFORMATION: Exam: XR Chest Exam date and time: 02/12/2024 8:10 PM Age: 48 years old Clinical indication: Patient HX: Cough with increased oxygen needs TECHNIQUE: Imaging protocol: Radiologic exam of the chest. Views: 1 view. COMPARISON: CR XR CHEST 2V PA LATERAL 02/11/2024 5:47 PM FINDINGS: Lungs: Pulmonary vasculature grossly normal. Moderately increased alveolar opacity in the right perihilar region concerning for worsening pneumonia or edema. Bilateral basilar alveolar opacities are unchanged to slightly increased. Pleural spaces: Slightly blunted lateral costophrenic angles suspicious for small pleural effusions versus pleural scarring, unchanged. No pneumothorax. Heart/Mediastinum: Heart size normal. No tracheal/mediastinal shift. Bones/joints: No acute osseous abnormalities are identified. IMPRESSION: Moderately increased airspace disease in the right mid lung concerning for pneumonia versus edema. Bilateral basilar pneumonia versus edema or atelectasis unchanged to mildly increased. Dictated and Authenticated by: Ugo Gilliland MD. Ordering:AMAURY Valero MD
[2024-02-12] MEDS: guaiFENesin 600 MG TABCR PO (22:11)
[2024-02-12] MEDS: QUEtiapine 100 MG TAB 200 MG PO (22:11)
[2024-02-12 22:56] LABS: Bilirubin Negative (Negative); Blood Negative (Negative); Clarity Clear (Clear); Glucose Negative (Negative); Ketones Negative (Negative); Leukocyte Esterase Negative (Negative); Nitrite Negative (Negative); Urobilinogen 0.2 mg/dL (Up to 0.2)
[2024-02-13] VITALS (13 sets, daily range): BP systolic 117–160; BP diastolic 81–96; PULSE 75–98; RESP 3–22; TEMP 36.5–37.8; O2SAT 89–96
[2024-02-13] MEDS: Acetaminophen 500 MG TAB 1000 MG PO ×3 (00:28→17:08)
[2024-02-13] MEDS: cloNIDine 0.1 MG TAB PO ×4 (00:28→20:16)
[2024-02-13] MEDS: Normal Saline Flush 10 ML SYR IVP ×3 (01:12→06:52)
[2024-02-13] MEDS: MORPHine 4 MG/ML SYR IVP ×3 (01:12→06:47)
[2024-02-13] MEDS: Albuterol/Ipratropium 3 ML UPD VIAL UPD ×3 (01:25→14:10)
[2024-02-13] MEDS: methylPREDNISolone SUCC 125 MG VIAL 60 MG IVP ×3 (04:38→20:17)
[2024-02-13] MEDS: DOXYCYCLINE 100 MG in Normal Saline 100 ML IVPB ×2 (04:39→15:40)
[2024-02-13] MEDS: CEFEPIME 2 GM in Normal Saline 100 ML IVPB ×3 (06:14→22:54)
[2024-02-13] MEDS: Ipratropium/Albuterol 4 GM 120 PUFF INH IH (06:54)
[2024-02-13 06:55] LABS: Abs Immature Grans 0.04 10^3/uL (0.0-0.06); Absolute Monocyte Count 0.49 10^3/uL (0.1-0.8); Absolute Neutrophil Count 11.42 10^3/uL (1.2-6.7); Basophils % 0.2 %; HCT 39.2 % (40.0-50.0); HGB 13.4 g/dL (13.5-17.5); Immature Grans % 0.3 %; Lymphocytes % 4.5 %; MCH 32.1 pg (27.0-33.0); MCHC 34.2 % (32.0-36.0); MCV 94 fL (80-95); MPV 11.9 fL (8.0-11.0); Monocytes % 3.9 %; Neutrophils % 91.1 %; Platelet Count 103 10^3/uL (130-400); RBC 4.18 10^6/uL (4.36-5.78); RDW 13.6 % (11.8-14.1); WBC 12.54 10^3/uL (4.4-10.8)
[2024-02-13 06:57] LABS: Absolute Basophil Count 0.03 10^3/uL (0.0-0.2); Absolute Lymphocyte Count 0.56 10^3/uL (1.2-3.4)
[2024-02-13 07:30] LABS: ALT 83 U/L (16-63); AST 31 U/L (15-37); Albumin 2.5 g/dL (3.4-5.0); Alkaline Phosphatase 85 U/L (46-116); Anion Gap 4.4 mmol/L (3-11); BUN 5 mg/dL (7-18); Bilirubin, Total 1.24 mg/dL (0.2-1.0); CO2 38.6 mmol/L (21.0-32.0); CREATININE 0.8 mg/dL (0.70-1.30); Calcium 8.2 mg/dL (8.5-10.1); Chloride 96 mmol/L (98-107); Estimated GFR 107.82 (mL/min/1.73m2); Glucose 127 mg/dL (74-106); Magnesium 1.6 mg/dL (1.8-2.4); Sodium 139 mmol/L (136-145); Total Protein 6.4 g/dL (6.4-8.2)
[2024-02-13 07:34] LABS: Potassium 2.8 mmol/L (3.5-5.1)
--- NOTE | 2024-02-13 08:00 | DI.US_ITS ---
Exam(s) US ABDOMEN LIMITED EXAM: US ABDOMEN LIMITED CLINICAL HISTORY: Acute on chronic pancreatitis with increased CBD TECHNIQUE: Ultrasound abdomen performed using standard protocol. COMPARISON: CT CT ABDOMEN PELVIS W from 02/10/2024 FINDINGS: PANCREAS: The pancreas could not be visualized sonographically due to overlying bowel gas. LIVER: Normal. Hepatopetal flow in the Portal Vein. The liver measures in 22.4 cm length. No evidence of a hepatic mass. GALLBLADDER: No evidence of cholelithiasis. No evidence of wall thickening. No pericholecystic fluid identified. There is a small amount of gallbladder sludge. BILIARY SYSTEM: Common bile duct measures 1.1 cm. No intrahepatic biliary ductal dilation. PEARSON'S SIGN: Negative. RIGHT KIDNEY: Kidney is normal in size. No evidence of renal calculi. No evidence of hydronephrosis. There is a simple cyst in the right kidney. No follow-up is recommended. ASCITES: None seen. IMPRESSION: 1. The pancreas cannot be visualized sonographically due to overlying bowel gas. 2. Hepatomegaly. 3. Dilated common duct at 1.1 cm. No choledocholithiasis is seen sonographically. 4. No cholelithiasis. Small amount of gallbladder sludge. DATA REPOSITORY:
[2024-02-13] MEDS: Methadone Liquid 10 MG/ML 135 MG PO (08:04)
[2024-02-13] MEDS: Thiamine 100 MG TAB PO (08:06)
[2024-02-13] MEDS: Sennosides/Docusate Sodium TAB 1 TAB PO ×2 (08:06→20:16)
[2024-02-13] MEDS: Benzonatate 100 MG CAP PO ×3 (08:06→20:15)
[2024-02-13] MEDS: busPIRone 15 MG TAB PO ×3 (08:07→20:16)
[2024-02-13] MEDS: Folic Acid 1 MG TAB PO (08:07)
[2024-02-13] MEDS: Lisinopril 20 MG TAB PO (08:07)
[2024-02-13] MEDS: guaiFENesin 600 MG TABCR PO ×2 (08:07→20:15)
[2024-02-13] MEDS: DULoxetine 30 MG CAP 60 MG PO (08:07)
[2024-02-13] MEDS: Multivitamin TAB 1 TAB PO (08:07)
[2024-02-13] MEDS: Nicotine 21 MG/24 HR PATCH TD (08:11)
--- NOTE | 2024-02-13 08:20 | NUR.NOTE ---
Nursing Note: Dr. Galvan made aware of low potassium. ordered 2 K riders and states okay for pt to continue taking his PO potassium per MAR.
[2024-02-13] MEDS: Mometasone 220 MCG 14 DOSE INHALER 2 PUFF IH (08:30)
[2024-02-13] MEDS: Tiotropium/Olodaterol 10 PUFF INHALER 2 PUFF IH (08:30)
[2024-02-13] MEDS: MAGNESIUM SULFATE 4 GM/100 ML BAG IV_INF (08:38)
[2024-02-13] MEDS: POTASSIUM CHLORIDE 20 MEQ/100 ML BAG 50 MEQ IV_INF ×2 (08:44→11:00)
[2024-02-13] MEDS: QUEtiapine 100 MG TAB PO (08:44)
[2024-02-13] MEDS: Pregabalin 100 MG CAP 200 MG PO ×3 (08:44→20:15)
[2024-02-13] MEDS: Potassium Chloride 20 MEQ TABCR PO ×3 (08:44→20:14)
[2024-02-13] MEDS: HYDROmorphone 2 MG/ML VIAL IVP ×2 (08:45→10:32)
--- NOTE | 2024-02-13 11:04 | PDOC.CMPRO ---
Date of service: 02/13/24 Time of Service: 11:04 Care Management Progress Note Progress Note Text Progress Note Text: Edd was sitting up in bed complaining of pain when CM met with him. He stated that his pain medication has been changed and he did not feel it controlled his pain as well. He went from IV hydromorphone to P.O. He also informed CM that he is extremely anxious. He stated that the provider told him he would order Ativan but he had not received it yet. CM confirmed it was ordered and his nurse actually was on her way to give it to him at that time. Overnight Edd had a slight fever (37.8) but has been afebrile all day. His WBC has increased a bit and he there is evidence that he may have pneumonia. He is now receiving Doxycycline and Cefepime. Discharge Potential Discharge Needs: PCP F/U Appt Anticipated Barriers to Discharge: Medical Status Patient/Family Education Needs: Review discharge instructions, discuss Ask Me Three Plan: Anticipate Edd will be discharged home, possibly with new home health services for PT, when medically cleared. He will follow up with his PCP and plan of care and transport via RCT coordinated by CM. CM will follow and continue to assess for discharge needs. SDOH(Care Management) Screening Will the Patient Participate in the Screening?: Yes Do you worry about having a steady place to live?: no In the past 12 months, have you had to go without electric, gas, oil or water in your home?: no Have you or anyone in your house had to go without enough food to eat?: no Has lack of transportation kept you from medical appointments or from doing things needed for daily living?: no Has anyone in your support network made you feel unsafe for any reason?: no
--- NOTE | 2024-02-13 12:59 | W.PM.PROGNOT ---
Date of Service Date of service: 02/13/24 Time of Service: 13:05 Assessment and Plan Assessment and plan (1) Alcohol withdrawal: Status: Acute Assessment and plan: History of severe alcohol withdrawal with seizures. CIWA, phenobarb protocol - hit soft limit 02/09. After transition to ICU proceeded to hard stop 02/11 (received slightly over calculated maximum, but no adverse events noted) Oral multivits, folic acid and thiamine Sz precautions. (2) Hospital-acquired pneumonia: Status: Acute Assessment and plan: WBC back up slighlty a/w fevers. CXR didn't show a clear focal pneumonia, but certainly there could be an infection there with interstitial infiltrates. I thinks given the trend and his overall level of illness with increased oxygen requirement and sputum, treating for hospital acquired pneumonia. Procalcitonin high, c/w bacterial infection. He is not septic so using cefepime (confirmed he has tolerated ceftriaxone multiple times despite PCN anaphylaxis history) and doxycycline. Repeat blood cultures pending (3) Pancreatitis: Status: Chronic Assessment and plan: Due to firmness on abdominal exam, ongoing pain, and WBC increase we repeated CT 02/09 PM. No necrosis or other complications noted, though worsening pancreatic edema noted. WBC and lipase were trending down, WBC up a bit this morning with pneumonia. Pain severe, but responding to treatment. Progressing diet again. Continue supportive care, I reassured him we would treat his pain. Qualifiers: Chronicity: acute Pancreatitis type: alcohol induced Acute pancreatitis complication: no infection or necrosis Qualified Code(s): K85.20 - Alcohol induced acute pancreatitis without necrosis or infection (4) Chronic respiratory failure with hypoxia: Status: Chronic Assessment and plan: O2 much improved after treating COPD and pneumonia and scheduled nebs. (5) Compression fracture of T8 vertebra: Status: Acute Assessment and plan: New T8 fx on CT, contributing to pain. Tylenol and IBU, and hydromorphone prn Qualifiers: Encounter type: initial encounter Qualified Code(s): S22.060A - Wedge compression fracture of T7-T8 vertebra, initial encounter for closed fracture (6) Acute alcoholic hepatitis: Status: Acute Assessment and plan: Continuing to improve despite ongoing pain and acute illness. follow (7) End stage COPD: Status: Chronic Assessment and plan: O2 3 LPM NC baseline - SPO2 ~ 90%, some degree of exacerbation now evident 02/11 Schedule nebs, treating with antibiotics and steroids, clearly improved. history of agitation with steroids (8) Hypokalemia: Status: Acute Assessment and plan: replaced orally. I ordered an additional 40mEq IV and replaced Mg again. Follow (9) Methadone 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: Status: Chronic Assessment and plan: Chronic OUD, continue methadone (confirmed dose with BAART) (10) HTN (hypertension): Status: Chronic Assessment and plan: BP was high on home lisinopril, likely a/w withdrawal. Using clonidine as adjunct. Now normal. Qualifiers: Hypertension type: essential hypertension Qualified Code(s): I10 - Essential (primary) hypertension (11) Livedo reticularis: Status: Acute Assessment and plan: lace-patterned redness on RLE not c/w cellulitis, it is now clear that this is local related to his prosthesis. (12) DVT prophylaxis: Status: Acute Assessment and plan: lovenox stopped due to dropping platelets, TEDS and SCDs ordered. Normal RBC morphology per review of peripheral smear by [facility], pathology review is not available until 02/12. I agree bili is from hepatic injury and it is not getting worse so I don't think there is active hemolysis. (13) Discharge planning issues: Status: Acute Assessment and plan: Full code. Interested in inpatient alcohol rehab at discharge, recovery center aware. Flu/COVID vaccines when ready for discharge. Subjective Subjective Patient reports: voiding w/o difficulty Interval history since last seen: Overnight pregabalin held, quetiapine decreased, hydromorphone change to morphine over concern of oversedation the night before. Fevers 02/12, IV cefepime/doxy started to cover HAP and cultures resent. IV steroid started for COPD. This morning, Mr. Barros states the pain was so bad he wanted to take a pill and or leave and shoot himself. Pain is from lower chest down to pelvis and around to his back. He states if the pain was controlled he wants to keep living. He did get 2mg IV hydromorphone with some relief. He is wanting to eat today, eating full liquid now (creamy soup, pudding) and tolerating this well. He is frustrated that he is still in a lot of pain. No current n/v. SOB has improved, down to 2 liters. Exam Narrative Exam Narrative: Gen: Alert and oriented, more comfortable sitting in chair eating soup. Sclera non-icteric. Lungs: Less, dyspneic O2 at 2 liters,, able to speak in sentences. No rales, better air movement, not wheezey. CV: RRR, no murmurs/gallops/rubs. Extremities warm. Abdomen: +BS, softly distended, mild to moderately diffusely tender, no rebound. No fluid wave. Skin: No rashes or cyanosis. reticular red patch right thigh, not hot or tender Neurological: no focal deficits, and coherent speech. No current tremor. Psychiatric: No hallucinations evident Objective Last Vital Signs Temp 37.3 C 02/13/24 11:25 Pulse 81 02/13/24 11:25 Resp 16 02/13/24 11:25 BP 117/81 02/13/24 11:25 Pulse Ox 91 L 02/13/24 11:25 Laboratory Results - last 24 hr 02/09/24 02/12/24 02/12/24 10:25 14:25 14:52 WBC RBC Hgb Hct MCV MCH MCHC RDW Plt Count MPV Immature Gran % Neutrophils % Lymphocytes % Monocytes % Eosinophils % Basophils % Nucleated RBC % Absolute Neutrophils Absolute Lymphocytes Absolute Monocytes Absolute Eosinophils Absolute Basophils VBG pH VBG pCO2 VBG pO2 VBG HCO3 VBG Total CO2 VBG O2 Saturation VBG Base Excess Sodium Potassium Chloride Carbon Dioxide Anion Gap BUN Creatinine Est GFR (CKD-EPI 2020) Glucose Calcium Magnesium Total Bilirubin AST ALT Alkaline Phosphatase Total Protein Albumin Procalcitonin 3.2 Urine Color Urine Clarity Urine pH Ur Specific [place] Urine Protein Urine Ketones Urine Blood Urine Nitrite Urine Bilirubin Urine Urobilinogen Ur Leukocyte Esterase Urine Glucose COVID-19 Source Nasopharynx SARS-CoV-2 (PCR) Negative Hepatitis A IgM Ab Cancelled Cancelled Hep Bs Antigen Cancelled Cancelled Hep B Core Total Ab Cancelled Cancelled Hepatitis C Antibody Cancelled Cancelled Influenza Type A (PCR) Negative Influenza Type B (PCR) Negative RSV (PCR) Negative MRSA (TEM-PCR) Negative 02/12/24 02/12/24 02/13/24 20:30 22:00 05:50 WBC 12.54 H RBC 4.18 L Hgb 13.4 L Hct 39.2 L MCV 94 MCH 32.1 MCHC 34.2 RDW 13.6 Plt Count 103 L D MPV 11.9 H Immature Gran % 0.3 Neutrophils % 91.1 Lymphocytes % 4.5 Monocytes % 3.9 Eosinophils % 0.0 Basophils % 0.2 Nucleated RBC % 0.0 Absolute Neutrophils 11.42 H Absolute Lymphocytes 0.56 L Absolute Monocytes 0.49 Absolute Eosinophils 0.00 Absolute Basophils 0.03 VBG pH 7.45 H VBG pCO2 57 H VBG pO2 28 VBG HCO3 40 H VBG Total CO2 35 H VBG O2 Saturation 58 VBG Base Excess 16 H Sodium 139 Potassium 2.8 L* Chloride 96 L Carbon Dioxide 38.6 H Anion Gap 4.4 BUN 5 L Creatinine 0.8 Est GFR (CKD-EPI 2020) 107.82 Glucose 127 H Calcium 8.2 L Magnesium 1.6 L Total Bilirubin 1.24 H AST 31 ALT 83 H Alkaline Phosphatase 85 Total Protein 6.4 Albumin 2.5 L Procalcitonin Urine Color Yellow Urine Clarity Clear Urine pH 6.0 Ur Specific [place] 1.010 Urine Protein Negative Urine Ketones Negative Urine Blood Negative Urine Nitrite Negative Urine Bilirubin Negative Urine Urobilinogen 0.2 Ur Leukocyte Esterase Negative Urine Glucose Negative COVID-19 Source SARS-CoV-2 (PCR) Hepatitis A IgM Ab Hep Bs Antigen Hep B Core Total Ab Hepatitis C Antibody Influenza Type A (PCR) Influenza Type B (PCR) RSV (PCR) MRSA (TEM-PCR) PAWSS Have you Been Recently Intoxicated or Drunk Within the Last 30 days?: Yes Have you Ever Experienced Previous Episodes of Alcohol Withdrawal?: Yes Have you ever Experienced Withdrawal Seizures?: Yes Have you ever Experienced Delirium Tremens(DT)s?: Yes Have you ever undergone Alcohol Rehabilitation Treatment (i.e, inpt ot outpatient treatment programs)?: Yes Have you ever Experienced Blackouts?: Yes Have you ever Combined Alcohol with other Downers within the last 90 days?: No Have you ever Combined Alcohol with any other Substance of Abuse during the last 90 days?: Unable to Obtain Positive Blood Alcohol level on Presentation? [PCS.BAL]: Unable to Obtain Evidence of Increased Autonomic Activity (i.e. HR>120, tremor, sweating, agitation, nausea)?: Yes Result: 7 Time Spent with Patient Time Spent with Patient: >50 minutes Time was spent: preparing to see the patient(eg.review tests), obtaining and/or reviewing separately [facility], ordering medications,tests, procedures, referring, communicating with other health care specialist, indepentently interpreting results, counseling the patient and care coordination
[2024-02-13] MEDS: HYDROmorphone 2 MG TAB PO ×3 (13:46→22:54)
--- NOTE | 2024-02-13 14:21 | PTTR_ITS ---
PT Notes Visit Reasons: Alcohol withdrawal Inpatient Physical Therapy Treatment Note Date: 02/13/2024 Precautions: Activity as tolerated. Standard precautions. On 2 L of oxygen continuous oxygen via NC as of 02/13/2024. Transtibial residual limb on R. Subjective: Pt reports he is feeling better than yesterday. He requested pain medication for his back prior to performing transfers and ambulation stating his pain was 7/10 but I don't want it to get worse when I am moving around. Pt reports he wears a 5 ply sock over his liner then applies the insert over his sock then pushes down into the prosthetic to secure his pin in it. Objective: General Observation: Telemetry in place. iV Fluids infusing into RUE central line, oxygen at 2L/Min Mental Status: Alert and oriented x3 Pain: 7/10 back pain Vital Signs: Oxygen saturation 92% on 2L/min throughout session. Bed Mobility/Transfers: Supine-sit: independent Sit-stand: independent Stand-sit: supervision Surface to surface transfers with and without FWW supervision. cues for tubes and lines management Gait: pt ambulated 20 feet x 2 with FWW without prosthetic d/t inability to don prosthesis. Balance: Static Sitting: Normal Dynamic Sitting: Good Static Standing: Fair Dynamic Standing: Fair Assessment: Pt oxygen demand reduced to 2l/min today as compared to yesterday at 6L/min with ability to maintain sats >92%. Pt unable to don prosthetic d/t swelling of residual limb. Swelling likely related to volume of IV Fluids he has been receiving. Pt able to apply gel liner however unable to don insert over liner with 5ply sock removed and therefore unable to properly insert into prosthetic. Educated Garret on use of his gel liner vs using tubigrip as a fisher trot line as he does not have a shinker for his residual limb. Also noted small 2mm slit on the inside of his gel liner near pin. Pt declined utilizing the liner today stating he is too sick to deal with the swelling he will wait until he gets closer to going home. Pt educated that addressing it now slowly will make it easier for him to donhis prosthetic when he is medically ready to go home. He stated he would use it tomorrow. Plan of Care/Treatment Plan: 1-2x/day, 7 days/week x 1 week. Plan of care has been reviewed with the [employer] providing the service under Physical Therapy direction. Initiate Physical Therapy intervention for strengthening, bed mobility, transfers, gait, stairs, balance training, use of assistive device. DISCHARGE RECOMMENDATIONS: HH PT to continue strengthening for improved activity tolerance, facilitate procurement of new transtibial prosthesis, and promote return to community ambulation/vocational activities. TREATMENT CODE/TIME: 35766 x 40 minutes for 3 units ([id number]).
[2024-02-13] MEDS: LORazepam 1 MG TAB PO (15:41)
[2024-02-13 19:20] LABS: Hepatitis A Antibody IgM Negative (Negative); Hepatitis B Core Antibody Negative (Negative); Hepatitis B surface Ag Negative (Negative); Hepatitis C Ab w Rflx HCV PCR Reactive (Negative)
[2024-02-13] MEDS: QUEtiapine 300 MG TAB PO (20:14)
[2024-02-13] MEDS: Ibuprofen 600 MG TAB PO (20:29)
[2024-02-14] VITALS (16 sets, daily range): BP systolic 147–173; BP diastolic 81–101; PULSE 69–88; RESP 3–20; TEMP 36.1–37.5; O2SAT 89–99
[2024-02-14] MEDS: Albuterol/Ipratropium 3 ML UPD VIAL UPD ×4 (01:20→19:24)
[2024-02-14] MEDS: Acetaminophen 500 MG TAB 1000 MG PO ×3 (02:36→22:30)
[2024-02-14] MEDS: HYDROmorphone 2 MG TAB PO ×4 (03:03→23:25)
[2024-02-14] MEDS: methylPREDNISolone SUCC 125 MG VIAL 60 MG IVP ×3 (04:30→20:11)
[2024-02-14] MEDS: DOXYCYCLINE 100 MG in Normal Saline 100 ML IVPB ×2 (04:30→16:42)
[2024-02-14] MEDS: LORazepam 1 MG TAB PO ×2 (04:31→22:31)
[2024-02-14] MEDS: Trimethobenzamide 200 MG/2 ML VIAL IM (04:32)
[2024-02-14] MEDS: CEFEPIME 2 GM in Normal Saline 100 ML IVPB ×3 (06:24→22:31)
[2024-02-14 06:37] LABS: Abs Immature Grans 0.03 10^3/uL (0.0-0.06); Absolute Basophil Count 0.02 10^3/uL (0.0-0.2); Absolute Lymphocyte Count 0.74 10^3/uL (1.2-3.4); Absolute Monocyte Count 0.58 10^3/uL (0.1-0.8); Basophils % 0.2 %; HCT 40.9 % (40.0-50.0); HGB 14.2 g/dL (13.5-17.5); Immature Grans % 0.3 %; Lymphocytes % 7.3 %; MCH 32.3 pg (27.0-33.0); MCHC 34.7 % (32.0-36.0); MCV 93 fL (80-95); MPV 11.7 fL (8.0-11.0); Monocytes % 5.7 %; Neutrophils % 86.5 %; Platelet Count 152 10^3/uL (130-400); RDW 13.6 % (11.8-14.1); RDW-SD 47.3 fL; WBC 10.17 10^3/uL (4.4-10.8)
[2024-02-14 06:47] LABS: Anion Gap 6.8 mmol/L (3-11); BUN 8 mg/dL (7-18); CO2 31.2 mmol/L (21.0-32.0); CREATININE 0.6 mg/dL (0.70-1.30); Calcium 8.9 mg/dL (8.5-10.1); Chloride 100 mmol/L (98-107); Glucose 131 mg/dL (74-106); Magnesium 2.1 mg/dL (1.8-2.4); Sodium 138 mmol/L (136-145)
[2024-02-14] MEDS: Potassium Chloride 20 MEQ TABCR PO ×3 (07:53→20:10)
[2024-02-14] MEDS: Lisinopril 20 MG TAB PO (07:53)
[2024-02-14] MEDS: guaiFENesin 600 MG TABCR PO ×2 (07:53→20:10)
[2024-02-14] MEDS: cloNIDine 0.1 MG TAB PO ×3 (07:53→20:10)
[2024-02-14] MEDS: Benzonatate 100 MG CAP PO ×3 (07:53→20:10)
[2024-02-14] MEDS: DULoxetine 30 MG CAP 60 MG PO (07:54)
[2024-02-14] MEDS: Sennosides/Docusate Sodium TAB 1 TAB PO (07:54)
[2024-02-14] MEDS: Folic Acid 1 MG TAB PO (07:54)
[2024-02-14] MEDS: busPIRone 15 MG TAB PO ×3 (07:54→20:10)
[2024-02-14] MEDS: Pregabalin 100 MG CAP 200 MG PO ×3 (07:54→20:10)
[2024-02-14] MEDS: Multivitamin TAB 1 TAB PO (07:54)
[2024-02-14] MEDS: Thiamine 100 MG TAB PO (07:55)
[2024-02-14] MEDS: Nicotine 21 MG/24 HR PATCH TD (07:55)
[2024-02-14] MEDS: Methadone Liquid 10 MG/ML 135 MG PO (08:11)
--- NOTE | 2024-02-14 09:30 | PDOC.CMPRO ---
Date of service: 02/14/24 Time of Service: 09:30 Care Management Progress Note Progress Note Text Progress Note Text: Edd was wheeling himself in a wheelchair in the hallway when CM met with him. He stated he is feeling better but still has back pain. He has been taking his prn Dilaudid every 4 hours when it is allowed. Clinically Edd is much improved. There was some concern about common duct dilatation however an MRI confirmed that it is unchanged since 2020. Edd plans to return to his friends' mobile home when ready for discharge. he is unsure if he will accept home health services. CM will coordinate transportation with [facility]. Discharge Potential Discharge Needs: PCP F/U Appt Anticipated Barriers to Discharge: Medical Status Patient/Family Education Needs: Review discharge instructions, discuss [facility] Transportation: [facility] Plan: Anticipate Edd will be discharged home, possibly with new home health services for PT, when medically cleared. He will follow up with his PCP and plan of care and transport via [facility] coordinated by CM. CM will follow and continue to assess for discharge needs. SDOH(Care Management) Screening Will the Patient Participate in the Screening?: Yes Do you worry about having a steady place to live?: no In the past 12 months, have you had to go without electric, gas, oil or water in your home?: no Have you or anyone in your house had to go without enough food to eat?: no Has lack of transportation kept you from medical appointments or from doing things needed for daily living?: no Has anyone in your support network made you feel unsafe for any reason?: no
[2024-02-14] MEDS: Calcium Carbonate *TUMS* 500 MG CHEW PO (10:07)
[2024-02-14] MEDS: LORazepam 2 MG/ML VIAL 1 MG IVP (10:24)
--- NOTE | 2024-02-14 11:05 | DI.MRI_ITS ---
Exam(s) MR ABDOMEN WO EXAM: MR ABDOMEN WO CLINICAL HISTORY: pancreatitis, CBD dilation, elevated bili TECHNIQUE: Multiplanar multisequence MRI of the Abdomen was performed. COMPARISON: CT CT THORAX ABD/PEL CTA from 09/14/[address] ABDOMEN PELVIS W from 02/10/2024 FINDINGS: Lung bases: Unremarkable. Liver: No suspicious hepatic mass. The liver measures 18 cm long. Pancreas: There is no evidence of a pancreatic mass. There is a hazy border of the tail of the pancr eas and mild inflammatory changes seen around the tail consistent with pancreatitis. No focal fluid collection is seen to suggest an abscess/pseudo cyst. No pancreatic duct dilatation. Gallbladder and Bile Ducts: No cholelithiasis. The common duct is unchanged at 9 mm. No choledochol ithiasis is present. Adrenals: Unremarkable. Kidneys: There is a stable 2 cm simple cyst in the right kidney. No follow-up is recommended. No mohan spicious renal masses are seen. There are few tiny T2 hyperintense foci in the kidneys. They are to o small for further characterization but likely reflect small cysts. No evidence of hydronephrosis. Spleen: Unremarkable. Bowel: No evidence of bowel obstruction or bowel wall thickening. Aorta: No aneurysm. Soft Tissues: Unremarkable. Bone: Within normal limits for the patient's age. Lymph Nodes: Unremarkable. IMPRESSION: 1. Inflammatory changes seen around the tail of the pancreas suggestive of acute pancreatitis. No fo silvino fluid collection is seen to suggest abscess or pseudocyst. 2. No evidence of cholelithiasis. 3. The common duct measures 9 mm and is unchanged dating back to 2020. 4. Mild hepatomegaly. DATA REPOSITORY:
--- NOTE | 2024-02-14 11:07 | W.PM.PROGNOT ---
Date of Service Date of service: 02/14/24 Time of Service: 11:07 Assessment and Plan Assessment and plan (1) Pancreatitis: Status: Chronic Assessment and plan: Admission diagnosis alcoholic pancreatitis. Due to firmness on abdominal exam, ongoing pain, and WBC increase we repeated CT 02/09 PM. No necrosis or other complications noted, though worsening pancreatic edema noted. WBC and lipase were trending down, WBC up 02/12 with pneumonia but down after treatment. Still in a lot of pain, though complicated by chronic opioid use disorder. U/s 02/12 showed a more clearly dilated CBD. Patient getting MRCP now. Considering progressing diet again to low fat full diet pending MRCP results.. Continue supportive care, I reassured him we would treat his pain. Qualifiers: Chronicity: acute Pancreatitis type: alcohol induced Acute pancreatitis complication: no infection or necrosis Qualified Code(s): K85.20 - Alcohol induced acute pancreatitis without necrosis or infection (2) Alcohol withdrawal: Status: Acute Assessment and plan: History of severe alcohol withdrawal with seizures. CIWA, phenobarb protocol - hit soft limit 02/09. After transition to ICU proceeded to hard stop 02/11 (received slightly over calculated maximum, but no adverse events noted) Oral multivits, folic acid and thiamine Sz precautions. Off the protocol 02/12, no further withdrawl syndrome. (3) Hospital-acquired pneumonia: Status: Acute Assessment and plan: WBC back up slighlty a/w fevers 02/11-. CXR didn't show a clear focal pneumonia, but certainly there could be an infection there with interstitial infiltrates. Given the trend and his overall level of illness with increased oxygen requirement and sputum, treated for hospital acquired pneumonia. Procalcitonin high, c/w bacterial infection. He is not septic so using cefepime (confirmed he has tolerated ceftriaxone multiple times despite PCN anaphylaxis history) and doxycycline. Repeat blood cultures and sputum NGTD/nl bimal (4) Chronic respiratory failure with hypoxia: Status: Chronic Assessment and plan: O2 much improved after treating COPD and pneumonia and scheduled nebs. (5) Compression fracture of T8 vertebra: Status: Acute Assessment and plan: New T8 fx on CT, contributing to pain. Tylenol and IBU, and hydromorphone prn Qualifiers: Encounter type: initial encounter Qualified Code(s): S22.060A - Wedge compression fracture of T7-T8 vertebra, initial encounter for closed fracture (6) Acute alcoholic hepatitis: Status: Acute Assessment and plan: Continuing to improve despite ongoing pain and acute illness. follow (7) End stage COPD: Status: Chronic Assessment and plan: O2 3 LPM NC baseline - SPO2 ~ 90%, some degree of exacerbation evident 02/11 Schedule nebs, treating with antibiotics and steroids, clearly improved. history of agitation with steroids, but now tolerating, added lorazepam prn 02/12 which get gets as outpatient. (8) Hypokalemia: Status: Acute Assessment and plan: replaced IV and orally. Better today. (9) Methadone 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: Status: Chronic Assessment and plan: Chronic OUD, continue methadone (confirmed dose with [facility]) (10) HTN (hypertension): Status: Chronic Assessment and plan: BP was high on home lisinopril, likely a/w withdrawal. Using clonidine as adjunct. Now better. Qualifiers: Hypertension type: essential hypertension Qualified Code(s): I10 - Essential (primary) hypertension (11) DVT prophylaxis: Status: Acute Assessment and plan: lovenox stopped due to dropping platelets, TEDS and SCDs ordered. (12) Discharge planning issues: Status: Acute Assessment and plan: Full code. Interested in inpatient alcohol rehab at discharge, recovery center aware. He will discharge to home when ready. Flu/COVID vaccines when ready for discharge. Subjective Subjective Patient reports: voiding w/o difficulty; denies fever Interval history since last seen: Still having abdominal pain and back pain. Taking 2mg oral hydromorphone every 4 hours (prn but getting every dose) and better pain control than yesterday. He is eating full liquid diet, no n/v this morning. Exam Narrative Exam Narrative: Gen: Alert and oriented, more comfortable sitting in chair.. Sclera non-icteric. Lungs: Normal effort, O2 at 2 liters, able to speak in sentences. No rales, better air movement, not wheezey. CV: RRR, no murmurs/gallops/rubs. Extremities warm. Abdomen: +BS, softly distended, mildly diffusely tender, no rebound. No fluid wave. Skin: No rashes or cyanosis. reticular red patch right thigh, not hot or tender Neurological: no focal deficits, and coherent speech. No current tremor. Psychiatric: No hallucinations evident Objective Last Vital Signs Temp 36.9 C 02/14/24 07:42 Pulse 70 02/14/24 07:42 Resp 18 02/14/24 07:42 BP 165/97 H 02/14/24 07:42 Pulse Ox 94 02/14/24 07:42 Laboratory Results - last 24 hr 02/12/24 02/14/24 14:25 06:05 WBC 10.17 RBC 4.40 Hgb 14.2 Hct 40.9 MCV 93 MCH 32.3 MCHC 34.7 RDW 13.6 Plt Count 152 MPV 11.7 H Immature Gran % 0.3 Neutrophils % 86.5 Lymphocytes % 7.3 Monocytes % 5.7 Eosinophils % 0.0 Basophils % 0.2 Nucleated RBC % 0.0 Absolute Neutrophils 8.80 H Absolute Lymphocytes 0.74 L Absolute Monocytes 0.58 Absolute Eosinophils 0.00 Absolute Basophils 0.02 Sodium 138 Potassium 4.0 D Chloride 100 Carbon Dioxide 31.2 Anion Gap 6.8 BUN 8 Creatinine 0.6 L Est GFR (CKD-EPI 2020) 117.60 Glucose 131 H Calcium 8.9 Magnesium 2.1 Hepatitis A IgM Ab Negative Hep Bs Antigen Negative Hep B Core Total Ab Negative Hepatitis C Antibody Reactive A PAWSS Have you Been Recently Intoxicated or Drunk Within the Last 30 days?: Yes Have you Ever Experienced Previous Episodes of Alcohol Withdrawal?: Yes Have you ever Experienced Withdrawal Seizures?: Yes Have you ever Experienced Delirium Tremens(DT)s?: Yes Have you ever undergone Alcohol Rehabilitation Treatment (i.e, inpt ot outpatient treatment programs)?: Yes Have you ever Experienced Blackouts?: Yes Have you ever Combined Alcohol with other Downers within the last 90 days?: No Have you ever Combined Alcohol with any other Substance of Abuse during the last 90 days?: Unable to Obtain Positive Blood Alcohol level on Presentation? [PCS.BAL]: Unable to Obtain Evidence of Increased Autonomic Activity (i.e. HR>120, tremor, sweating, agitation, nausea)?: Yes Result: 7 Time Spent with Patient Time Spent with Patient: 35-49 minutes Time was spent: preparing to see the patient(eg.review tests), obtaining and/or reviewing separately otained hiistory, ordering medications,tests, procedures, referring, communicating with other health child adolescent care, indepentently interpreting results, counseling the patient and care coordination
[2024-02-14] MEDS: Mometasone 220 MCG 14 DOSE INHALER 2 PUFF IH ×2 (11:13→19:25)
[2024-02-14] MEDS: Tiotropium/Olodaterol 10 PUFF INHALER 2 PUFF IH (11:14)
--- NOTE | 2024-02-14 11:44 | PTTR_ITS ---
PT Notes Visit Reasons: Alcohol withdrawal Inpatient Physical Therapy Treatment Note Date: 02/14/2024 Precautions: Activity as tolerated. Standard precautions. On 2 L of oxygen continuous oxygen via NC as of 02/13/2024. Transtibial residual limb on R. Subjective: Pt reports he is happy to not be hooked up t an IV and wants to get out of his room. During second session patient reported he did leave his room with the use of a loaner wheelchair and he enjoyed being able to be out. Objective: General Observation: Telemetry in place. RUE central line, oxygen at 2L/Min Mental Status: Alert and oriented x3 Pain: 7/10 back pain Vital Signs: Oxygen saturation 92% on 2L/min throughout session. Bed Mobility/Transfers: Supine-sit: independent Sit-stand: independent Stand-sit: supervision cues for safe approach with FWW Surface to surface transfers with and without FWW supervision. cues for tubes and lines management Gait: pt ambulated 20 feet x 2 with FWW without prosthetic d/t inability to don prosthesis. CGA distances limited d/t pain and left wrist impairments. Balance: Static Sitting: Normal Dynamic Sitting: Good Static Standing: Fair Dynamic Standing: Fair Exercise: R LE: 10 reps Quad sets straight leg raise, [id number], short arc quad L LE: 10 reps Quad set, straight leg raise, heel slide, short arc quad, plan tarflexion dorsiflexion Assessment: Applied tubular stocking to right residual limb for swelling management as pt does not have a water pump assembler. attempted use of gel liner as water pump assembler however distal pin inhibits ability to move in bed. Pt able to ambulate with fwW without prosthesis for 20 feet . He is limited by pain in his back and left hand/wrist extension deficit /tendon involvement with hopping and ability to WB through UE to reduce impact onto LLE. Pt demonstrated ability to self propel in w/c with BUE and LLE 1000feet after initial set up of oxygen tank. Patient tolerated tubular stocking to right residual limb x 8 hours without reports of pain slight reduction in swelling noted patient may benefit from double layer of tubular stocking to provide further compression to manage swelling. Plan of Care/Treatment Plan: 1-2x/day, 7 days/week x 1 week. Plan of care has been reviewed with the INVENTORY ASSISTANT providing the service under Physical Therapy direction. Initiate Physical Therapy intervention for strengthening, bed mobility, transfers, gait, stairs, balance training, use of assistive device. DISCHARGE RECOMMENDATIONS: PT to continue strengthening for improved activity tolerance, facilitate procurement of new transtibial prosthesis, and promote return to community ambulation/vocational activities. TREATMENT CODE/TIME: First session 78541 x 33minutes for 2 units / [id number]. Second session: 27568 x 15 minutes for 1 unit/[id number]
[2024-02-14 11:52] LABS: HCV RNA Qualitative Undetected (Undetected)
[2024-02-14] MEDS: Ondansetron O.D.T. 4 MG TABEF PO (12:12)
[2024-02-14] MEDS: Normal Saline Flush 10 ML SYR IVP ×3 (12:18→20:18)
[2024-02-14] MEDS: Ibuprofen 600 MG TAB PO (13:19)
[2024-02-14] MEDS: HYDROmorphone 2 MG/ML VIAL 0.5 MG IVP ×2 (15:46→20:17)
[2024-02-14] MEDS: Lidocaine 5% Patch 1 PATCH TP (20:09)
[2024-02-14] MEDS: QUEtiapine 300 MG TAB PO (20:10)
[2024-02-15] VITALS (10 sets, daily range): BP systolic 120–162; BP diastolic 90–110; PULSE 68–84; RESP 2–19; TEMP 36.6–36.9; O2SAT 93–99
[2024-02-15] MEDS: HYDROmorphone 2 MG/ML VIAL 0.5 MG IVP ×4 (00:56→10:24)
[2024-02-15] MEDS: Ibuprofen 600 MG TAB PO (03:18)
[2024-02-15] MEDS: cloNIDine 0.1 MG TAB PO ×4 (03:19→19:53)
[2024-02-15] MEDS: methylPREDNISolone SUCC 125 MG VIAL 60 MG IVP ×2 (04:33→12:47)
[2024-02-15] MEDS: Normal Saline Flush 10 ML SYR IVP ×6 (04:33→16:23)
[2024-02-15] MEDS: DOXYCYCLINE 100 MG in Normal Saline 100 ML IVPB ×2 (04:34→16:22)
[2024-02-15] MEDS: CEFEPIME 2 GM in Normal Saline 100 ML IVPB ×3 (06:14→21:32)
[2024-02-15] MEDS: Acetaminophen 500 MG TAB 1000 MG PO ×2 (06:16→14:24)
[2024-02-15] MEDS: HYDROmorphone 2 MG TAB PO (06:17)
[2024-02-15] MEDS: Nicotine 21 MG/24 HR PATCH TD (07:52)
[2024-02-15] MEDS: DULoxetine 30 MG CAP 60 MG PO (07:53)
[2024-02-15] MEDS: Sennosides/Docusate Sodium TAB 1 TAB PO ×2 (07:54→19:52)
[2024-02-15] MEDS: Benzonatate 100 MG CAP PO ×3 (07:55→19:52)
[2024-02-15] MEDS: Thiamine 100 MG TAB PO (07:55)
[2024-02-15] MEDS: Multivitamin TAB 1 TAB PO (07:55)
[2024-02-15] MEDS: Potassium Chloride 20 MEQ TABCR PO ×3 (07:55→19:52)
[2024-02-15] MEDS: Lisinopril 20 MG TAB PO (07:55)
[2024-02-15] MEDS: Folic Acid 1 MG TAB PO (07:56)
[2024-02-15] MEDS: busPIRone 15 MG TAB PO ×3 (07:56→19:52)
[2024-02-15] MEDS: guaiFENesin 600 MG TABCR PO ×2 (07:56→19:53)
[2024-02-15] MEDS: Pregabalin 100 MG CAP 200 MG PO ×3 (08:08→19:52)
[2024-02-15] MEDS: Methadone Liquid 10 MG/ML 135 MG PO (08:21)
[2024-02-15] MEDS: Albuterol/Ipratropium 3 ML UPD VIAL UPD ×3 (08:41→20:51)
[2024-02-15] MEDS: Mometasone 220 MCG 14 DOSE INHALER 2 PUFF IH ×2 (08:43→19:51)
[2024-02-15] MEDS: Tiotropium/Olodaterol 10 PUFF INHALER 2 PUFF IH (08:43)
--- NOTE | 2024-02-15 12:43 | PT.INTREAT ---
PT Notes Visit Reasons: Alcohol withdrawal Inpatient Physical Therapy Treatment Note Date: 02/15/2024 Precautions: Activity as tolerated. Standard precautions. On 2 L of oxygen continuous oxygen via NC as of 02/13/2024. Transtibial residual limb on R. Subjective: Pt reports he is feeling better less tired.He reports he has been urinating a lot over night and now his kidneys are burning.He states he wore the tubular stockenette last night. He states the IV in his right upper arm is also painful and the nurse knows about it. Objective: General Observation: Telemetry in place. RUE central line, oxygen at 2L/Min Mental Status: Alert and oriented x3 Pain: 6/10 back pain Vital Signs: Oxygen saturation 92% on 2L/min throughout session. Bed Mobility/Transfers: Supine-sit: independent Sit-stand: independent Stand-sit: independent without FWW, cues to reach back withFWW Surface to surface transfers with FWW step turn supervision and cues for tubes and lines management without prosthesis Independent stand pivot transfers surface to surface without device and without Gait: pt ambulated 20 feet x 2 with FWW without prosthetic d/t inability to don prosthesis d/t pin mechanism malfunctioning.. CGA distances limited d/t pain and left wrist impairments. Balance: Static Sitting: Normal Dynamic Sitting: Good Static Standing: Fair Dynamic Standing: Fair Assessment: Pt with significant reduction in residual limb swelling able to don gel liner and removeable socket insert however pt unable to get pin to engage on prosthetic. Pt is able to get residual limb fully into socket. Pt pin release mechanism is not functioning to lock the pin in place on his prosthetic. Will call [employer] Plan of Care/Treatment Plan: 1-2x/day, 7 days/week x 1 week. Plan of care has been reviewed with the CHESS INSTRUCTOR providing the service under Physical Therapy direction. Initiate Physical Therapy intervention for strengthening, bed mobility, transfers, gait, stairs, balance training, use of assistive device. DISCHARGE RECOMMENDATIONS: HH PT to continue strengthening for improved activity tolerance, facilitate procurement of new transtibial prosthesis, and promote return to community ambulation/vocational activities. TREATMENT CODE/TIME: First session 95759 x 25 minutes for 2 units / [id number].
[2024-02-15] MEDS: LORazepam 1 MG TAB PO (12:46)
[2024-02-15 14:23] LABS: Bilirubin Negative (Negative); Blood Negative (Negative); Clarity Clear (Clear); Glucose Negative (Negative); Ketones Trace mg/dL (Negative); Leukocyte Esterase Negative (Negative); Nitrite Negative (Negative); Specific Gravity 1.015 (1.005-1.025); Urobilinogen 0.2 mg/dL (Up to 0.2)
[2024-02-15] MEDS: oxyCODONE 10 MG TAB PO ×2 (14:25→19:53)
[2024-02-15 14:43] LABS: Bacteria Few HPF (Negative); Crystals Negative HPF (Negative); Epithelial Cells Rare HPF (Negative); Mucus Moderate (Negative); RBC Negative HPF (0-2); WBC 0-2 HPF (0-5)
[2024-02-15 14:44] LABS: C & S Indicated? No; Casts Negative LPF (Negative)
[2024-02-15] MEDS: Ondansetron O.D.T. 4 MG TABEF PO (15:07)
--- NOTE | 2024-02-15 17:11 | PGE_ITS ---
Date of Service Date of service: 02/15/24 Time of Service: 10:00 Assessment and Plan Assessment and plan (1) Pancreatitis: Status: Chronic Assessment and plan: Admission diagnosis alcoholic pancreatitis. Due to firmness on abdominal exam, ongoing pain, and WBC increase, repeated CT 02/09 PM. No necrosis or other complications noted, though worsening pancreatic edema noted. WBC and lipase were trending down, WBC up 02/12 with pneumonia but down after treatment. Still in a lot of pain, though complicated by chronic opioid use disorder. U/s 02/12 showed a more dilated CBD. MRCP however showed no enlargement of CBD, reassuring. Now back to a full diet, try to keep low fat. He has ongoing pain, but this is likely chronic to some degree, no longer numbed by heavy alcohol. Transition to longer acting opioids only, stop IV pain meds. Qualifiers: Chronicity: acute Pancreatitis type: alcohol induced Acute pancreatitis complication: no infection or necrosis Qualified Code(s): K85.20 - Alcohol induced acute pancreatitis without necrosis or infection (2) Alcohol withdrawal: Status: Acute Assessment and plan: History of severe alcohol withdrawal with seizures. CIWA, phenobarb protocol - hit soft limit 02/09. After transition to ICU proceeded to hard stop 02/11 (received slightly over calculated maximum, but no adverse events noted) Oral multivits, folic acid and thiamine Sz precautions. Off the protocol 02/12, no further withdrawl syndrome. (3) Hospital-acquired pneumonia: Status: Acute Assessment and plan: WBC back up slighlty a/w fevers 02/11-. CXR didn't show a clear focal pneumonia, but certainly there could be an infection there with interstitial infiltrates. Given the trend and his overall level of illness with increased oxygen requirement and sputum, treated for hospital acquired pneumonia. Procalcitonin high, c/w bacterial infection. He is not septic so using cefepime (confirmed he has tolerated ceftriaxone multiple times despite PCN anaphylaxis history) and doxycycline. Repeat blood cultures and sputum NGTD/nl bimal Plan to transition to amox/clav and doxy at discharge, complete 5 day course. (4) Chronic respiratory failure with hypoxia: Status: Chronic Assessment and plan: O2 much improved after treating COPD and pneumonia and scheduled nebs. See below (5) Compression fracture of T8 vertebra: Status: Acute Assessment and plan: New T8 fx on CT, contributing to pain. Tylenol and IBU, lidocaine patch, oxycodone prn. Qualifiers: Encounter type: initial encounter Qualified Code(s): S22.060A - Wedge compression fracture of T7-T8 vertebra, initial encounter for closed fracture (6) Acute alcoholic hepatitis: Status: Acute Assessment and plan: Continuing to improve despite ongoing pain and acute illness. follow (7) End stage COPD: Status: Chronic Assessment and plan: O2 3 LPM NC baseline - SPO2 ~ 90%, some degree of exacerbation evident 02/11 Schedule nebs, treating with antibiotics and steroids, clearly improved, transtion to oral medrol today with plan to taper history of agitation with steroids, but now tolerating, added lorazepam prn 02/12 which get gets as outpatient. (8) Hypokalemia: Status: Acute Assessment and plan: replaced IV and orally. Better today. (9) Methadone 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: Status: Chronic Assessment and plan: Chronic OUD, continue methadone (confirmed dose with [facility]) (10) HTN (hypertension): Status: Chronic Assessment and plan: BP was high on home lisinopril, likely a/w withdrawal. Using clonidine as adjunct. Now better. Qualifiers: Hypertension type: essential hypertension Qualified Code(s): I10 - Essential (primary) hypertension (11) DVT prophylaxis: Status: Acute Assessment and plan: lovenox stopped due to dropping platelets, TEDS and SCDs ordered. (12) Discharge planning issues: Status: Acute Assessment and plan: Full code. Interested in inpatient alcohol rehab at discharge, recovery center aware. He will discharge to home when ready. Flu/COVID vaccines when ready for discharge. Transitioning to oral steroids and pain medication today, likely discharge 02/15 if stable. I would give oral opioid pain medication at discharge until he can see his methadone provider and adjust dose if needed. Subjective Subjective Patient reports: tolerating a regular diet, voiding w/o difficulty and bowel movement; denies vomiting, shortness of breath or fever Interval history since last seen: still complaining of pain. Now in low back, worried about his kidneys. No dysuria or hematuria. Not sleeping well. Still some abdominal pain. Eating a regular diet, though states not eating much, still feels sick to his stomach at times. Exam Narrative Exam Narrative: Gen: Alert and oriented, more comfortable sitting in chair.. Sclera non- icteric. Lungs: Normal effort, O2 at 2 liters, able to speak in sentences. No rales, better air movement, not wheezey. CV: RRR, no murmurs/gallops/rubs. Extremities warm. Abdomen: +BS, softly distended, very mildly diffusely tender, no rebound. No fluid wave. Skin: No rashes or cyanosis. reticular red patch right thigh, not hot or tender MSK: no spinal tenderness in lower back, mildly tender T8. No CVAT, moving without difficulty Psychiatric: No hallucinations evident Objective Last Vital Signs Temp 36.7 C 02/15/24 15:28 Pulse 68 02/15/24 15:28 Resp 19 02/15/24 15:28 BP 162/96 H 02/15/24 15:28 Pulse Ox 94 02/15/24 15:28 Laboratory Results - last 24 hr 02/15/24 14:11 Urine Color Yellow Urine Clarity Clear Urine pH 6.0 Ur Specific [place] 1.015 Urine Protein 30 H Urine Ketones Trace H Urine Blood Negative Urine Nitrite Negative Urine Bilirubin Negative Urine Urobilinogen 0.2 Ur Leukocyte Esterase Negative Urine RBC Negative Urine WBC 0-2 Ur Epithelial Cells Rare Urine Crystals Negative Urine Bacteria Few Urine Casts Negative Urine Mucus Moderate Urine Other Rare [place] Ur Culture Indicated? No Urine Glucose Negative PAWSS Have you Been Recently Intoxicated or Drunk Within the Last 30 days?: Yes Have you Ever Experienced Previous Episodes of Alcohol Withdrawal?: Yes Have you ever Experienced Withdrawal Seizures?: Yes Have you ever Experienced Delirium Tremens(DT)s?: Yes Have you ever undergone Alcohol Rehabilitation Treatment (i.e, inpt ot outpatient treatment programs)?: Yes Have you ever Experienced Blackouts?: Yes Have you ever Combined Alcohol with other Downers within the last 90 days?: No Have you ever Combined Alcohol with any other Substance of Abuse during the last 90 days?: Unable to Obtain Positive Blood Alcohol level on Presentation? [PCS.BAL]: Unable to Obtain Evidence of Increased Autonomic Activity (i.e. HR>120, tremor, sweating, agitation, nausea)?: Yes Result: 7 Time Spent with Patient Time Spent with Patient: 35-49 minutes Time was spent: preparing to see the patient(eg.review tests), [facility], ordering medications,tests, procedures, referring, communicating with other health home care and home health aides teacher, indepentently interpreting results, counseling the patient and care coordination
--- NOTE | 2024-02-15 18:19 | CMPROGNOTE_ITS ---
Date of service: 02/15/24 Time of Service: 18:19 Care Management Progress Note Progress Note Text Progress Note Text: Edd was sitting up in bed when CM met with him. He stated that he still feels very sick and not ready for discharge. CM discussed the improvements he has made, per report, and provided psychoeducation about his recovery continuing at home. Per MD, he is not ready for discharge today, but he is nearing discharge readiness. Edd stated that he ate today for the first time in days, which he was pleased about. He stated that he is working with PT, and is hoping to be able to use his prosthetic prior to discharge. 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 CM will continue to follow. Discharge Potential Discharge Needs: PT Evaluation and PCP F/U Appt Anticipated Barriers to Discharge: None Identified Patient/Family Education Needs: Review discharge instructions, discuss Ask Me Three Transportation: Private vehicle Plan: Anticipate Edd will be discharged home, possibly with new home health services for PT, when medically cleared. He will follow up with his PCP and plan of care and transport via RCT coordinated by CM. CM will follow and continue to assess for discharge needs. SDOH(Care Management) Screening Will the Patient Participate in the Screening?: Yes Do you worry about having a steady place to live?: no In the past 12 months, have you had to go without electric, gas, oil or water in your home?: no Have you or anyone in your house had to go without enough food to eat?: no Has lack of transportation kept you from medical appointments or from doing things needed for daily living?: no Has anyone in your support network made you feel unsafe for any reason?: no
[2024-02-15] MEDS: Prochlorperazine 10 MG TAB PO (18:34)
[2024-02-15] MEDS: QUEtiapine 300 MG TAB PO (19:52)
[2024-02-15] MEDS: methylPREDNISolone 4 MG TAB PO (19:52)
[2024-02-15] MEDS: Ketorolac 15 MG/ML VIAL IVP (20:18)
[2024-02-16] VITALS (9 sets, daily range): BP systolic 135–180; BP diastolic 80–115; PULSE 65–80; RESP 2–18; TEMP 36.4–36.9; O2SAT 91–98
[2024-02-16] MEDS: Acetaminophen 500 MG TAB 1000 MG PO ×2 (01:27→09:39)
[2024-02-16] MEDS: oxyCODONE 10 MG TAB PO ×4 (01:27→14:13)
[2024-02-16] MEDS: Ketorolac 15 MG/ML VIAL IVP ×4 (01:32→16:35)
[2024-02-16] MEDS: cloNIDine 0.1 MG TAB PO ×4 (01:37→14:10)
[2024-02-16] MEDS: LORazepam 1 MG TAB PO ×3 (01:37→14:09)
--- NOTE | 2024-02-16 01:42 | NUR.NOTE ---
Nursing Note: Patient assessment done in sections throughout shift as patient tolerated.
[2024-02-16] MEDS: Albuterol/Ipratropium 3 ML UPD VIAL UPD ×2 (02:13→08:04)
[2024-02-16] MEDS: Ondansetron O.D.T. 4 MG TABEF PO (04:44)
[2024-02-16] MEDS: CEFEPIME 2 GM in Normal Saline 100 ML IVPB (05:33)
[2024-02-16] MEDS: DOXYCYCLINE 100 MG in Normal Saline 100 ML IVPB (05:33)
[2024-02-16] MEDS: Alteplase 2 MG VIAL IJ (06:52)
[2024-02-16] MEDS: Water,Injection,Sterile 10 ML VIAL (07:03)
[2024-02-16 07:14] LABS: Anion Gap 7.5 mmol/L (3-11); BUN 8 mg/dL (7-18); CO2 30.5 mmol/L (21.0-32.0); CREATININE 0.8 mg/dL (0.70-1.30); Calcium 8.7 mg/dL (8.5-10.1); Chloride 100 mmol/L (98-107); Estimated GFR 107.82 (mL/min/1.73m2); Glucose 105 mg/dL (74-106); Magnesium 2.1 mg/dL (1.8-2.4); Sodium 138 mmol/L (136-145)
[2024-02-16] MEDS: Tiotropium/Olodaterol 10 PUFF INHALER 2 PUFF IH (08:04)
[2024-02-16] MEDS: Mometasone 220 MCG 14 DOSE INHALER 2 PUFF IH (08:04)
[2024-02-16] MEDS: Folic Acid 1 MG TAB PO (08:12)
[2024-02-16] MEDS: Thiamine 100 MG TAB PO (08:13)
[2024-02-16] MEDS: Multivitamin TAB 1 TAB PO (08:13)
[2024-02-16] MEDS: Benzonatate 100 MG CAP PO ×2 (08:13→14:10)
[2024-02-16] MEDS: methylPREDNISolone 4 MG TAB PO ×2 (08:13→14:10)
[2024-02-16] MEDS: Lisinopril 20 MG TAB PO (08:14)
[2024-02-16] MEDS: DULoxetine 30 MG CAP 60 MG PO (08:14)
[2024-02-16] MEDS: Potassium Chloride 20 MEQ TABCR PO ×2 (08:14→14:10)
[2024-02-16] MEDS: busPIRone 15 MG TAB PO ×2 (08:14→14:10)
[2024-02-16] MEDS: guaiFENesin 600 MG TABCR PO (08:14)
[2024-02-16] MEDS: Sennosides/Docusate Sodium TAB 1 TAB PO (08:15)
[2024-02-16] MEDS: Pregabalin 100 MG CAP 200 MG PO ×2 (08:15→14:10)
[2024-02-16] MEDS: Nicotine 21 MG/24 HR PATCH TD (08:15)
[2024-02-16] MEDS: Methadone Liquid 10 MG/ML 135 MG PO (08:16)
--- NOTE | 2024-02-16 11:23 | RESPIRATORY ---
Spoke with Griselda at [facility] [place] requesting O2 tank delivery to hospital today to discharge patient home
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
--- NOTE | 2024-02-16 12:25 | PTTR_ITS ---
PT Notes Visit Reasons: Alcohol withdrawal Inpatient Physical Therapy Treatment Note Date: 02/16/2024 Precautions: Activity as tolerated. Standard precautions. On 2 L of oxygen continuous oxygen via NC as of 02/13/2024. Transtibial residual limb on R. Subjective: Patient reports he is feeling better able to don his prosthetic without issue including activating pain mechanism on prosthesis. He continues to state his back is killing him however functional abilities without facial grimacing or signs of increased pain during ambulation. Objective: General Observation: Patient approached this therapist in the hallway walking with his prosthetic on, without device and without oxygen on . Patient refused to utilize FWW and oxygen Mental Status: Alert and oriented x3 Pain: 6/10 back pain Vital Signs: Oxygen saturation 93% on room air Bed Mobility/Transfers: Supine-sit: independent Sit-stand: independent Stand-sit: independent Gait: pt ambulated 300 ft with prosthetic , no device independent level surfaces, demonstrating wide base of support reciprocal pattern Balance: Static Sitting: Normal Dynamic Sitting: Normal Static Standing: Good plus Dynamic Standing: Good Assessment: Pt able to don prosthetic without difficulty independently. Pt demonstrates ability to ambulate without device. Pt refusing to don oxygen as prescribed. Or sats 93% after ambulating 300 ft. Pt reports back pain however he does not demonstrate limitation in functional ability. Message left with [employer] regarding need for replacement prosthesis for pt. Plan of Care/Treatment Plan: 1-2x/day, 7 days/week x 1 week. Plan of care has been reviewed with the COMMUNICATION SKILLS INSTRUCTOR providing the service under Physical Therapy direction. Initiate Physical Therapy intervention for strengthening, bed mobility, transfers, gait, stairs, balance training, use of assistive device. DISCHARGE RECOMMENDATIONS: PT to continue strengthening for improved activity tolerance, facilitate procurement of new transtibial prosthesis, and promote return to community ambulation/vocational activities. TREATMENT CODE/TIME: First session 39007 x17 mins for 1 unit / [id number]
--- NOTE | 2024-02-16 12:47 | PDOC.HHF2F ---
Home Health Referral Home Health Orders Clinical synopsis of why skilled professionals are needed: penitentiary for application of pain patch to back topical voltaren gel then covered by SalonPas patch, change daily Apply to T8 region Registered Nurse: Check all that apply Other: penitentiary for application of pain patch to back topical voltaren gel then covered by SalonPas patch, change daily Apply to T8 region patient cannot do due to positioning. 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 The encounter was conducted in the following manner: By me as the certifying physician, ENVIRONMENTAL HEALTH AIDE, PA or By an inpatient physician, ENVIRONMENTAL HEALTH AIDE or PA during an inpatient stay who communicated findings to me, Certification And Authentication I certify that I composed the above information based on my clinical judgment relating to this patient's medical condition and, if applicable, clinical findings communicated to me by the NPP or inpatient physician who performed the FTF encounter. Name of Provider that will be monitoring home health services: Wilberto Lott
--- NOTE | 2024-02-16 13:20 | PT.INTREAT ---
PT Notes Visit Reasons: Alcohol withdrawal Inpatient Physical Therapy Treatment Note Date: 02/16/2024 Precautions: Activity as tolerated. Standard precautions. Transtibial residual limb on R. Subjective: Back to baseline mobility level as of today. Lookign forward to going home as soon as his oxygen tank from home becomes available. Continues to report pain in back from recent T8 compression fracture. Objective: General Observation: Ambulatory without an assitive device Mental Status: Alert and oriented x3 Pain: 5-6/10 back pain Vital Signs: Oxygen saturation WNL on RA Bed Mobility/Transfers: Supine-sit: independent Sit-stand: independent Stand-sit: independent Gait: 350 ft with R BKA on without an assistive device and without oxygen supplementation. No SOB. No LOB. Pain in mid back at about 5-6/10. Balance: Static Sitting: Normal Dynamic Sitting: Normal Static Standing: Good plus Dynamic Standing: Good Assessment: Patient back to baseline mobility and oxygen level without need for any assistive device. DISCHARGE RECOMMENDATIONS: PT to continue strengthening for improved activity tolerance, facilitate procurement of new transtibial prosthesis, and promote return to community ambulation/vocational activities. TREATMENT CODE/TIME: 29131 x 15 minutes (13:20-13:35)
--- NOTE | 2024-02-16 15:24 | CMDISCH_ITS ---
Date of service: 02/16/24 Time of Service: 15:24 LACE Index Scoring Tool Questions: Length of Stay (in days): 7 - 13 Was the patient admitted via the E.D.?: Yes Comorbidities: Chronic Pulmonary Disease and Liver or Renal Disease E.D. Visits: 1 Answers: Total Score: 14 Risk of Readmission: High Risk Care Management Discharge Plan Reason for Hospitalization: alcohol withdrawal Discharge Plan: Edd will be discharged home with new home health services for RN and PT. He will follow up with his PCP and plan of care and transport via [facility] coordinated by CM. He will be provided with an oxygen tank from [facility] to use during transport home. Patient/Family Education Needs: review of discharge instructions, limitations, follow up plan, discuss Ask Me Three Services Needed at Discharge: Home Health Care Services and Transportation SDOH Health Related Social Needs: No Data to Display
[2024-02-16] MEDS: Labetalol 100 MG/20 ML VIAL 20 MG IVP (16:07)
== END 2024-02-16 17:01 | disposition home or self-care (01) | DRG 896 ==
LOC: ER 14:41 → MS 15:13 → ICU 02-11 15:02 → MS 02-11 21:59
PROVIDERS: Family Medicine; Nurse Practitioner Family; Student in an Organized Health Care Education/Training Program; Admitting Provider Family Medicine; Emergency Provider Emergency Medicine; PCP Family Medicine; Visit Provider Family Medicine
DX: F10.239 Alcohol dependence with withdrawal, unspecified (principal); J13 Pneumonia due to Streptococcus pneumoniae; K85.20 Alcohol induced acute pancreatitis without necrosis or infection; J96.11 Chronic respiratory failure with hypoxia; F11.20 Opioid dependence, uncomplicated; S22.060A Wedge compression fracture of T7-T8 vertebra, initial encounter for closed fracture; J44.0 Chronic obstructive pulmonary disease with (acute) lower respiratory infection; K70.10 Alcoholic hepatitis without ascites; E87.6 Hypokalemia; I10 Essential (primary) hypertension; R50.9 Fever, unspecified; R23.1 Pallor; K59.03 Drug induced constipation; Z89.511 Acquired absence of right leg below knee; Z51.5 Encounter for palliative care; Y95 Nosocomial condition; Z99.81 Dependence on supplemental oxygen; B18.2 Chronic viral hepatitis C; G40.909 Epilepsy, unspecified, not intractable, without status epilepticus; Z55.0 Illiteracy and low-level literacy; F41.9 Anxiety disorder, unspecified; F32.A Depression, unspecified; F17.210 Nicotine dependence, cigarettes, uncomplicated; D75.1 Secondary polycythemia; X58.XXXA Exposure to other specified factors, initial encounter
CPT/HCPCS: 36410; 00123; 36415; 74177; 80048; 80053; 80307; 82805; 83690; 84145; 86704; 86709; 86803; 87040; 87077; 87340; 87522; 87637; 87641; 93005; 94640; 96365; 96366; 97110; 97162; 97530; 99291; J1650; 71045; 71046; 71260; 74181; 76705; 80320; 80329; 81003; 81015; 83605; 83735; 84484; 85025; 87070; 87186; 87205; 93010; 94664; 94667; 94668; 94760; 99232; 99233; 99239; J0131; J0692; J1171; J1885; J1920; J1940; J1941; J2060; J2270; J2405; J2469; J2560; J2919; J2997; J3250; J3475; J3480; J3490; J7509; J7613; J7620; Q9967

== ENCOUNTER 2024-02-29 08:41 | Emergency (ER) | payer MEDICARE, MEDICAID, SELFPAY ==
[2024-02-29] VITALS (30 sets, daily range): BP systolic 155–187; BP diastolic 89–140; PULSE 70–91; RESP 11–26; TEMP 36.7–37; O2SAT 92–99
--- NOTE | 2024-02-29 08:48 | RT.EKG_ITS ---
APPROVED REPORT Exam: Resting ECG Reason for Exam: sob Patient Location: E HR:80 bpm ECG Measurements Heart Rate 80 AXIS AZ 121 P 44 QRSd 94 QRS 94 QT 368 T 43 QTc 425 Conclusion Sinus rhythm...normal P axis, V-rate 60- 99 ST elev, probable normal early repol pattern...ST elevation, age<55
--- OUTSIDE RECORDS SUMMARY | 2024-02-29 08:57 | XMS_ITS | Encounter Summary ---
Author Organization [facility] Address [facility] [place] [address] Care Team Providers Care Merchant Miller Name Role Phone Alfredito Vargas MD Primary Care Provider [phone] Encounter Details Date Type Department Care Team (Late st Contact Info) Description 12/08/2023 Interpretation Only [facility] [address] [place] [phone] Giovanni Conde MD [address] [place] [address] Social History Tobacco Use Types Packs/Day Years Used Date Smoking Tobacco: Some Days Cigarettes 0.3 30 Smokeless Tobacco: Never Comments:1 pack last about 1 0 days; previously was 2 ppd- one pack lasts a month Alcohol Use Standard Drinks/Week Comments Not Currently 0 (1 standard drink = 0.6 oz pur e alcohol) [facility] Utilities Answer Date Recorded In the past 12 months has e [employer], gas, oil, or water [employer] threatened to shut off services in your home? No 09/20/2023 Hunger Vital Sign Answer Date Recorded Within the past 12 months, y ou worried that your food would run out before you got the money to buy more. Never true 09/20/19 24 Within the past 12 months, t he food you bought just didn't last and you didn't have money to get more. Never true 09/20/2023 PRAPARE - Transportation Answer Date Re corded In the past 12 months, has l ack of transportation kept you from medical appointments or from getting medications? No 08/30 In the past 12 months, has l ack of transportation kept you from meetings, work, or from getting things needed for daily living? No 09/20/2023 Housing Stability Vital Sign Answer Roby e Recorded In the last 12 months, was t here a time when you were not able to pay the mortgage or rent on time? No 09/20/2023 In the past 12 months, how m any times have you moved where you were living? 1 09/20/2023 At any time in the past 12 m [facility], were you homeless or living in a residential (including now)? No 09/20/2023 IPV Inpatient Questions Answer Date Recorded Does Anyone Try to Keep You From Having Contact with Others or Doing Things Outside Your Home? no 09/19/2023 Feels Threatened by Someone no 08/30 Feels Unsafe at Home or Work/School no 09/19/2023 Physical Signs of Abuse Present no 09/19/2023 Sex and Gender Information Value Date Recorded Sex Assigned at Not on file Gender Identity Not on file Sexual Orientation Not on file documented as of this encounter Plan of Treatment Upcoming Encounters Date Type Department Care Team (Late st Contact Info) Description 03/18/2024 8:30 AM EST Appointment [place] [address] 03/18/2024 9:30 AM EST Office [place] [address] Hetal Ojeda MD [facility] [place] [address] documented as of this encounter Procedures Procedure Name Priority Date/Time Associated Diagnosis Comments CT ABDOMEN AND PELVIS W CONTRAST STAT 12/08/2023 9:42 PM EDT documented in this encounter Results * CT Abdomen & Pelvis w Contrast (12/08/2023 9:42 PM EDT) PT CLASS E RAD ADMITDTTM [id number] RAD PT RAD INFO [id number]^Haniss deb^Giovanni RAD EXAM DESC CTAPW^CT Abdomen and Pelvis w/ Contrast^RIS [facility] WORKSTATION ID [id number] [facility] Anatomical Region Laterality Modality Abdomen, Pelvis Computed Tomogra phy 12/08/2023 9:42 PM EDT Impressions 12/09/2023 12:12 AM EDT * ??New intrahepatic and extrahepatic dilatation with the common bile duct measuring up to 1.4 cm without evidence of obstructing mass or intraluminal filling defect/radiopaque stone seen. Please correlate with clinical and laboratory evidence of biliary obstruction. Consider GI consultation for EUS/ERCP or MRCP for further evaluation barring contraindication. * ??Nonspecific new 1.5 cm precaval adenopathy, likely reactive. * ??Please see above for details and ancillary findings. Preliminary report signed by: Robi Serrano at 12/08/2023 10:30 PM I have personally reviewed the image(s) and the resident's interpretation and agree with the findings, Gonsalo Hilliard MD at 12/09/2023 12:12 AM Thank you for letting us participate in the care of this patient. ??If you are a health care provider and have any questions regarding this report, please contact the number below. ??For patients who have questions please contact the health ambulatory care that requested your imaging first. ? Narrative 12/09/2023 12:12 AM EDT EXAMINATION: CT Abdomen and Pelvis w/ Contrast CLINICAL HISTORY: severe intrascapular pain in setting of etoh withdrawal TECHNIQUE: CT abdomen and pelvis with intravenous contrast. COMMENTS: * ??Absence of enteric contrast renders suboptimal assessment of bowel wall/lumen and surrounding soft tissue structures/viscera. * ??Please note, this examination was ordered, performed, and interpreted in a STAT/emergency setting. COMPARISON: CT abdomen and pelvis 06/09/2023 FINDINGS: Included Lower Chest: Please note, dedicated CT chest assessment with respective findings dictated separately. Hepatobiliary: New mild intrahepatic and moderate extrahepatic dilatation, common bile duct measuring up to 1.4 cm. Gallbladder: Moderately hydropic. Spleen: Calcified granulomas. Pancreas: Unremarkable. Adrenal Glands: Unremarkable. RIGHT Kidney: Simple-fluid attenuation probable cyst. LEFT Kidney: Unremarkable. Urinary Bladder: Unremarkable. GI: Nondilated small small bowel. Appendix appears unremarkable. Colon distended with large pancolonic stool burden. Redundant sigmoid colon. Mesentery/Peritoneum: Increased size of now 1.5 cm upper precaval lymph node (series 3, image 62). Vasculature: Redemonstrated infrarenal IVC. Scattered atherosclerotic plaque. Osseous Structures: No acute abnormality identified. Mild degenerative changes. Procedure Note Gonsalo Hilliard MD - 12/09/2023 EXAMINATION: CT Abdomen and Pelvis w/ Contrast CLINICAL HISTORY: severe intrascapular pain in setting of etohwithdrawal TECHNIQUE: CT abdomen and pelvis with intravenous contrast. COMMENTS: * Absence of enteric contrast renders suboptimal assessment of bowelwall/lumen and surrounding soft tissue structures/viscera. * Please note, this examination was ordered, performed, and interpretedin a STAT/emergency setting. COMPARISON: CT abdomen and pelvis 06/09/2023 FINDINGS: Included Lower Chest: Please note, dedicated CT chest assessment withrespective findings dictated separately. Hepatobiliary: New mild intrahepatic and moderate extrahepaticdilatation, common bile duct measuring up to 1.4 cm. Gallbladder: Moderately hydropic. Spleen: Calcified granulomas. Pancreas: Unremarkable. Adrenal Glands: Unremarkable. RIGHT Kidney: Simple-fluid attenuation probable cyst. LEFT Kidney: Unremarkable. Urinary Bladder: Unremarkable. GI: Nondilated small small bowel. Appendix appears unremarkable. Colondistended with large pancolonic stool burden. Redundant sigmoid colon. Mesentery/Peritoneum: Increased size of now 1.5 cm upper precaval lymphnode (series 3, image 62). Vasculature: Redemonstrated infrarenal IVC. Scattered atheroscleroticplaque. Osseous Structures: No acute abnormality identified. Mild degenerativechanges. IMPRESSION * New intrahepatic and extrahepatic dilatation with the common bileduct measuring up to 1.4 cm without evidence of obstructing mass orintraluminal filling defect/radiopaque stone seen. Please correlate with clinical and laboratory evidence of biliary obstruction. Consider GI consultation for EUS/ERCP or MRCP for further evaluation barring contraindication. * Nonspecific new 1.5 cm precaval adenopathy, likely reactive. * Please see above for details and ancillary findings. Preliminary report signed by: Robi Serrano at 12/08/2023 10:30PM I have personally reviewed the image(s) and the resident's interpretationand agree with the findings, Gonsalo Hilliard MD at 12/09/2023 12:12 AM Thank you for letting us participate in the care of this patient. If youare a health care provider and have any questions regarding this report,please contact the number below. For patients who have questions please contactthe health ambulatory care that requested your imaging first. Giovanni Conde MD IMG CT ORDERABLES documented in this encounter Visit Diagnoses Not on filedocumented in this encounter Care Teams Merchant Miller Relationship Specialty Start Date End Date Alfredito Vargas MD [address] [place] [address] PCP - General Family Medicine 09/28/23 documented as of this encounter
--- OUTSIDE RECORDS SUMMARY | 2024-02-29 08:57 | XMS_ITS | Encounter Summary ---
Author Organization [facility] Address [facility] [place] [address] Care Team Providers Care Clinical Admissions Manager Name Role Phone Alfredito Vargas MD Primary Care Provider Encounter Details Date Type Department Care Team (Late st Contact Info) Description 12/12/2023 Interpretation Only [address] [id number] Viraj Go MD [address] [place] [address] Social History Tobacco Use Types Packs/Day Years Used Date Smoking Tobacco: Some Days Cigarettes 0.3 30 Smokeless Tobacco: Never Comments:1 pack last about 1 0 days; previously was 2 ppd- one pack lasts a month Alcohol Use Standard Drinks/Week Comments Not Currently 0 (1 standard drink = 0.6 oz pur e alcohol) [facility] Utilities Answer Date Recorded In the past 12 months has e [employer], gas, oil, or water [employer] threatened to shut off services in your [...] any time in the past 12 m [facility], were you homeless or living in a senior care (including now)? No 09/20/2023 IPV Inpatient Questions [...] 03/18/2024 8:30 AM EST Appointment [place] [address] 03/18/2024 9:30 AM EST Office Visit [place] [address] Hetal Ojeda MD [facility] [place] [address] documented as of this encounter Procedures Procedure Name Priority Date/Time Associated Diagnosis Comments XR HIP 2-3 VIEWS LEFT Routine 12/12/2023 5:07 AM EDT documented in this encounter Results * XR Hip 2-3 Views Left (12/12/2023 5:07 AM EDT) PT CLASS I RAD ADMITDTTM [id number] RAD PT RAD INFO [id number]^Mcdoug all^Viraj^Adam RAD EXAM DESC [id number]^XR Hip 2-3 Views Left^RIS DH RAD WORKSTATION ID [id number] [facility] Anatomical Region Laterality Modality Hip Left Radiographic Lisa ging 12/12/2023 5:06 AM EDT Impressions 12/12/2023 8:03 AM EDT Moderate left hip osteoarthropathy with minimal radiographic progression since 2022. Sequela of remote trauma without acute radiographic abnormality. Thank you for letting us participate in the care of this patient. ??If you are a health care provider and have any questions regarding this report, please contact the number below. ??For patients who have questions please contact the health administrator health care facility that requested your imaging first. ? Narrative 12/12/2023 8:03 AM EDT EXAMINATION: XR Hip 2-3 Views Left CLINICAL HISTORY: complaints of hip pain S/P fall TECHNIQUE: AP and lateral views left hip COMPARISON: Radiographs December 18, 2022 CT abdomen and pelvis November 17, 2010 and December 08, 2023 FINDINGS: Unchanged, smoothly corticated heterotopic ossification superior to the femoral neck and curvilinear sclerosis of the basicervical/intertrochanteric proximal femur. Smoothly corticated heterotopic ossification is partially included in the gsoih-oi-bbne of the mid to distal femur diaphysis. No fracture, erosion or periostitis. Moderate hip joint space narrowing with small acetabular osteophytes. Preserved alignment at the pubic symphysis and lower left sacroiliac joint. Multiple surgical clips partially seen in the medial right thigh. Soft tissues are otherwise normal. Procedure Note Latanya Cain MD - 12/12/2023 EXAMINATION: XR Hip 2-3 Views Left CLINICAL HISTORY: complaints of hip pain S/P fall TECHNIQUE: AP and lateral views left hip COMPARISON: Radiographs December 18, 2022 CT abdomen and pelvis November 17, 2010 and December 08, 2023 FINDINGS: Unchanged, smoothly corticated heterotopic ossification superior to thefemoral neck and curvilinear sclerosis of the basicervical/intertrochantericproximal femur. Smoothly corticated heterotopic ossification is partially includedin the ascct-wz-byyq of the mid to distal femur diaphysis. No fracture, erosionor periostitis. Moderate hip joint space narrowing with small acetabular osteophytes.Preserved alignment at the pubic symphysis and lower left sacroiliac joint. Multiple surgical clips partially seen in the medial right thigh. Softtissues are otherwise normal. IMPRESSION Moderate left hip osteoarthropathy with minimal radiographic progressionsince 2022. Sequela of remote trauma without acute radiographic abnormality. Thank you for letting us participate in the care of this patient. If youare a health care provider and have any questions regarding this report,please contact the number below. For patients who have questions please contactthe health administrator health care facility that requested your imaging first. Viraj Go MD IMG DX ORDERABLES documented in this encounter Visit Diagnoses Not on filedocumented in this encounter Care Teams Clinical Admissions Manager Relationship Specialty Start Date End Date Alfredito Vargas MD [address] [place] [id number] PCP - General Family Medicine 09/28/23 documented as of this encounter
--- OUTSIDE RECORDS SUMMARY | 2024-02-29 08:57 | XMS_ITS | Encounter Summary ---
Author Organization [facility] Address [facility] [place] [address] Care Team Providers Care Nascar Racer Name Role Phone Alfredito Vargas MD Primary Care Provider [phone] Encounter Details Date Type Department Care Team (Late st Contact Info) Description 11/30/2023 Interpretation Only [facility] in [facility] [address] [place] [phone] Talha Rosario MD [address] [place] [id number] Social History Tobacco Use Types Packs/Day Years Used Date Smoking Tobacco: Some Days Cigarettes 0.3 30 Smokeless Tobacco: Never Comments:1 pack last about 1 0 days; previously was 2 ppd- one pack lasts a month Alcohol Use Standard Drinks/Week Comments Not Currently 0 (1 standard drink = 0.6 oz pur e alcohol) [facility] Utilities Answer Date Recorded In the past 12 months has e [employer], gas, oil, or water [employer] threatened to shut off services in your [...] any time in the past 12 m [facility], were you homeless or living in a skilled nursing (including now)? No 09/20/2023 IPV Inpatient Questions [...] 03/18/2024 8:30 AM EST Appointment [place] [address] 03/18/2024 9:30 AM EST Office [place] [address] Hetal Ojeda MD [facility] [place] [address] documented as of this encounter Procedures Procedure Name Priority Date/Time Associated Diagnosis Comments XR CHEST PA AND LATERAL Routine 11/30/2023 2:49 PM EDT documented in this encounter Results * XR Chest PA & Lateral (Generic) (11/30/2023 2:49 PM EDT) PT CLASS I RAD ADMITDTTM [id number] RAD PT RAD INFO [id number]^BRANDY ^TALHA^B RAD EXAM DESC XCXR2^XR CHEST 2V PA AND LATERAL^RIS RAD [facility] [place] Anatomical Region Laterality Modality Chest N/A Radiographic Lisa ging Impressions 11/30/2023 4:43 PM EDT Findings/impression: Increased lung volumes and flattening of hemidiaphragms consistent with COPD. There are coarse reticular as well as platelike markings at the lower lungs, marginally increased since the prior of 09/19/2023, and consistent with atelectasis superimposed upon scarring. Compared with more recent prior of 11/27/2023, there is improvement at the right base, as yet incomplete. In an improving clinical setting, a repeat in 2-3 months time to reestablish a baseline appearance is suggested. Thank you for letting us participate in the care of this patient. ??If you are a health care provider and have any questions regarding this report, please contact the number below. ??For patients who have questions please contact the health lawn caretaker that requested your imaging first. ? Electronically signed by: Ramesh Varela MD, [facility] ([phone]), at 11/30/2023 4:43 PM Narrative 11/30/2023 4:43 PM EDT EXAMINATION: XR CHEST 2V PA ??AND LATERAL CLINICAL HISTORY: ??Reason for Chest: ??Pneumonia ??Add'l Info: Follow up TECHNIQUE: PA and lateral COMPARISON: 11/27/2023 and 09/19/2023 Procedure Note Ramesh Varela MD - 11/30/2023 EXAMINATION: XR CHEST 2V PA AND LATERAL CLINICAL HISTORY: Reason for Chest: Pneumonia Add'l Info: Follow up TECHNIQUE: PA and lateral COMPARISON: 11/27/2023 and 09/19/2023 IMPRESSION Findings/impression: Increased lung volumes and flattening of hemidiaphragms consistent withCOPD. There are coarse reticular as well as platelike markings at the lowerlungs, marginally increased since the prior of 09/19/2023, and consistent with atelectasis superimposed upon scarring. Compared with more recent prior of 11/27/2023, there is improvement at [facility] base, as yet incomplete. In an improving clinical setting, a repeat in 2-3 months time toreestablish a baseline appearance is suggested. Thank you for letting us participate in the care of this patient. If youare a health care provider and have any questions regarding this report,please contact the number below. For patients who have questions please contactthe health lawn caretaker that requested your imaging first. Electronically signed by: Ramesh Varela MD, [facility]([phone]), at 11/30/2023 4:43 PM Talha Rosario MD IMG DX ORDERABLES documented in this encounter Visit Diagnoses Not on filedocumented in this encounter Care Teams Nascar Racer Relationship Specialty Start Date End Date Alfredito Vargas MD [address] [place] [address] PCP - General Family Medicine 09/28/23 documented as of this encounter
--- OUTSIDE RECORDS SUMMARY | 2024-02-29 08:57 | XMS_ITS | Encounter Summary ---
Author Organization [facility] Address [facility] [place] [address] Care Team Providers Care French Teacher Name Role Phone Alfredito Vargas MD Primary Care Provider [phone] Reason for Visit * Reason Onset Date Comments Follow-up 09/27/2023 48 hour post dis charge follow up call Encounter Details Date Type Department Care Team (Late st Contact Info) Description 09/26/2023 Telephone Hospitalist [facility] [place] [phone] Charles Hunt MA Follow-up (48 hour post discharge follow up call) Social History Tobacco Use Types Packs/Day Years Used Date Smoking Tobacco: Some Days Cigarettes 0.3 30 Smokeless Tobacco: Never Comments:1 pack last about 1 0 days; previously was 2 ppd- one pack lasts a month Alcohol Use Standard Drinks/Week Comments Not Currently 0 (1 standard drink = 0.6 oz pur e alcohol) [facility] Utilities Answer Date Recorded In the past 12 months has [employer], gas, oil, or water [employer] threatened to shut off services in your [...] any time in the past 12 m [facility], were you homeless or living in a [place] health care facility (including now)? No 09/20/2023 DH IPV Inpatient Questions Answer Date Recorded Does [...] on file documented as of this encounter Miscellaneous Notes * Telephone Encounter - Charles Hunt MA - 09/26/2023 12:24 PM EDT COPD patient- Discharged: Patient left AMA 09/24/23 Telephone call placed to follow up on patient post hospital visit. Telephone call placed to follow up on patient: 48 hr On my phone call today 09/28/23, 72 hour post patient leaving AMA, patient states he is feeling worse and that he thinks he should be at the hospital but he is not able to get there. 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 I havereminded patent that if he is feeling worse then he should go to the ED, patient states he does nothave transportation and I have reminded him that if necessary he should call 911. I have notified PCP Christie barrios of the above and she will notify PCP. The following questions were asked: How are you doing now compared to your last day in the hospital? Worse Date of last spirometry: 09/02/2022 Spirometry results: Last PFT Results: FEV1 Pre-BD % of Predicted Date Value Ref Range Status 09/02/2022 16 % Final and FEV1 / FVC Actual Pre-BD Date Value Ref Range Status 09/02/2022 43 % Final Additional notes: PCP office notified documented in this encounter Plan of Treatment Upcoming Encounters Date Type Department Care Team (Late st Contact Info) Description 03/18/2024 8:30 AM EST Appointment [place] [address] 03/18/2024 9:30 AM EST Office [place] [address] Hetal Ojeda MD [facility] [place] [address] documented as of this encounter Visit Diagnoses Not on filedocumented in this encounter Care Teams French Teacher Relationship Specialty Start Date End Date Alfredito Vargas MD [address] [place] [id number] PCP - General Family Medicine 09/28/23 documented as of this encounter
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
--- OUTSIDE RECORDS SUMMARY | 2024-02-29 08:57 | XMS_ITS | Encounter Summary ---
Author Organization [facility] Address [facility] [place] [address] Care Team Providers Care Site Damage Prevention Technician Name Role Phone Alfredito Vargas MD Primary Care Provider [phone] Encounter Details Date Type Department Care Team (Late st Contact Info) Description 12/25/2023 Interpretation Only [facility] in [address] [address] Chivo Carmona MD [address] [place] [address] Social History Tobacco Use Types Packs/Day Years Used Date Smoking Tobacco: Some Days Cigarettes 0.3 30 Smokeless Tobacco: Never Comments:1 pack last about 1 0 days; previously was 2 ppd- one pack lasts a month Alcohol Use Standard Drinks/Week Comments Not Currently 0 (1 standard drink = 0.6 oz pur e alcohol) [facility] Utilities Answer Date Recorded In the past 12 months has e [employer], gas, oil, or water [employer] threatened to shut off services in your [...] any time in the past 12 m [facility], were you homeless or living in a long-term (including now)? No 09/20/2023 IPV Inpatient Questions [...] 03/18/2024 8:30 AM EST [place] [address] 03/18/2024 9:30 AM EST [place] [address] Hetal Ojeda MD [facility] [place] [address] documented as of this encounter Procedures Procedure Name Priority Date/Time Associated Diagnosis Comments XR CHEST ONE VIEW STAT 12/25/2023 5:4 2 PM EDT documented in this encounter Results * XR Chest One View (12/25/2023 5:42 PM EDT) PT CLASS E RAD ADMITDTTM [id number] RAD PT RAD MD INFO [id number]^YONI JONES^CHIVO RAD EXAM DESC XCXR1^XR CHEST PORTABLE OR 1V^RIS RAD WORKSTATION ID [id number] [facility] Anatomical Region Laterality Modality Chest N/A Radiographic [...] who have questions please contact the health care worker that requested your imaging first. ? Narrative [...] patients who have questions please contactthe health care worker that requested your imaging first. Chivo Carmona MD IMG DX ORDERABLES documented in this encounter Visit Diagnoses Not on filedocumented in this encounter Care Teams Site Damage Prevention Technician Relationship Specialty Start Date End Date Alfredito Vargas MD [address] [place] [address] PCP - General Family Medicine 09/28/23 documented as of this encounter
--- OUTSIDE RECORDS SUMMARY | 2024-02-29 08:57 | XMS_ITS | Encounter Summary ---
Author Organization [facility] Address [facility] [place] [place] [address] Care Team Providers Care Fans Clerk Name Role Phone Alfredito Vargas MD Primary Care Provider [phone] Encounter Details Date Type Department Care Team (Late st Contact Info) Description 12/08/2023 Interpretation Only [facility] [address] [place] [phone] Giovanni Conde MD [address] [place] [address] Social History Tobacco Use Types Packs/Day Years Used Date Smoking Tobacco: Some Days Cigarettes 0.3 30 Smokeless Tobacco: Never Comments:1 pack last about 1 0 days; previously was 2 ppd- one pack lasts a month Alcohol Use Standard Drinks/Week Comments Not Currently 0 (1 standard drink = 0.6 oz pur e alcohol) [facility] Utilities Answer Date Recorded In the past 12 months has e [employer], gas, oil, or water [employer] threatened to shut off services in your [...] any time in the past 12 m [facility], were you homeless or living in a alf (including now)? No 09/20/2023 IPV Inpatient Questions [...] 03/18/2024 8:30 AM EST Appointment [place] [address] 03/18/2024 9:30 AM EST Office [place] [address] Hetal Ojeda MD [facility] [place] [address] documented as of this encounter Procedures Procedure Name Priority Date/Time Associated Diagnosis Comments CT ANGIOGRAM OF CHEST (NON-CORONARY) W CONTRAST STAT 12/08/2023 9:42 PM EDT documented in this encounter Results * CT Angiogram Chest (Non-Coronary) w Contrast (12/08/2023 9:42 PM EDT) PT CLASS E RAD ADMITDTTM [id number] RAD PT RAD MD INFO [id number]^Haniss deb^Giovanni RAD EXAM DESC CTTHAO^CT Angio Chest^RIS RAD WORKSTATION ID [id number] [facility] Anatomical Region Laterality Modality Chest Computed Tomogra [...] who have questions please contact the health critical care nurse specialist that requested your imaging first. ? Narrative 12/09/2023 12:05 AM EDT EXAMINATION: CT [...] the scapular regions. Redemonstrated T4, T6, and [id number] endplate compression deformities, mildly increased loss of [...] patients who have questions please contactthe health critical care nurse specialist that requested your imaging first. Electronically signed by: Gonsalo Hilliard MD, [facility]([phone]), at 12/09/2023 12:05 AM Giovanni Conde MD IMG CT ORDERABLES documented in this encounter Visit Diagnoses Not on filedocumented in this encounter Care Teams Fans Clerk Relationship Specialty Start Date End Date Alfredito Vargas MD [address] [place] [address] PCP - General Family Medicine 09/28/23 documented as of this encounter
--- OUTSIDE RECORDS SUMMARY | 2024-02-29 08:57 | XMS_ITS | Encounter Summary ---
Author Organization [facility] Address [facility] [place] [address] Care Team Providers Care Communications Planner Name Role Phone Alfredito Vargas MD Primary Care Provider [phone] Encounter Details Date Type Department Care Team (Late st Contact Info) Description 12/08/2023 Interpretation Only [facility] [address] [place] [phone] Giovanni Conde MD [address] [place] [address] Social History Tobacco Use Types Packs/Day Years Used Date Smoking Tobacco: Some Days Cigarettes 0.3 30 Smokeless Tobacco: Never Comments:1 pack last about 1 0 days; previously was 2 ppd- one pack lasts a month Alcohol Use Standard Drinks/Week Comments Not Currently 0 (1 standard drink = 0.6 oz pur e alcohol) [facility] Utilities Answer Date Recorded In the past 12 months has e [employer], gas, oil, or water [employer] threatened to shut off services in your [...] any time in the past 12 m [facility], were you homeless or living [...] 03/18/2024 8:30 AM EST [place] [address] 03/18/2024 9:30 AM EST [place] [address] Hetal Ojeda MD [facility] [place] [address] documented as of this encounter Procedures Procedure Name Priority Date/Time Associated Diagnosis Comments XR CHEST ONE VIEW STAT 12/08/2023 7:1 1 PM EDT documented in this encounter Results * XR Chest One View (12/08/2023 7:11 PM EDT) PT CLASS E RAD ADMITDTTM [id number] RAD PT RAD INFO [id number]^Haniss deb^Giovanni RAD EXAM DESC XCXR1^XR Chest 1 View^RIS RAD WORKSTATION ID [id number] RAD Anatomical Region Laterality Modality Chest N/A Radiographic Lisa ging 12/08/2023 7:11 PM EDT Impressions 12/08/2023 7:15 PM EDT FINDINGS/IMPRESSION: Submaximal lung volumes. Senescent changes. Pulmonary vascular congestion and interstitial edema. No confluent airspace opacity, pleural effusion, or pneumothorax definitively identified. Cardiomediastinal contours appear within normal limits given technique/positioning. Thank you for letting us participate in the care of this patient. ??If you are a health care provider and have any questions regarding this report, please contact the number below. ??For patients who have questions please contact the health skin care therapist that requested your imaging first. ? Electronically signed by: Gonsalo Hilliard MD, [facility] ([phone]), at 12/08/2023 7:15 PM Narrative 12/08/2023 7:15 PM EDT EXAMINATION: XR Chest 1 View CLINICAL HISTORY: Chest Pain TECHNIQUE: Portable semiupright rotated frontal chest COMPARISON: 12/08/2023 Procedure Note Gonsalo Hilliard MD - 12/08/2023 EXAMINATION: XR Chest 1 View CLINICAL HISTORY: Chest Pain TECHNIQUE: Portable semiupright rotated frontal chest COMPARISON: 12/08/2023 IMPRESSION FINDINGS/IMPRESSION: Submaximal lung volumes. Senescent changes. Pulmonary vascular congestionand interstitial edema. No confluent airspace opacity, pleural effusion, or pneumothorax definitively identified. Cardiomediastinal contours appearwithin normal limits given technique/positioning. Thank you for letting us participate in the care of this patient. If youare a health care provider and have any questions regarding this report,please contact the number below. For patients who have questions please contactthe health skin care therapist that requested your imaging first. Giovanni Conde MD IMG DX ORDERABLES documented in this encounter Visit Diagnoses Not on filedocumented in this encounter Care Teams Communications Planner Relationship Specialty Start Date End Date Alfredito Vargas MD [address] [place] [address] PCP - General Family Medicine 09/28/23 documented as of this encounter
--- OUTSIDE RECORDS SUMMARY | 2024-02-29 08:57 | XMS_ITS | Encounter Summary ---
Author Organization [facility] Address [facility] [place] [address] Care Team Providers Care Broadcast Designer Name Role Phone Alfredito Vargas MD Primary Care Provider [phone] Reason for Visit * Reason Onset Date Comments Follow-up 10/24/2023 Four week post d ischarge follow up call Encounter Details Date Type Department Care Team (Late st Contact Info) Description 10/24/2023 Telephone Hospitalist [facility] [place] [phone] Charles Hunt MA Follow-up (Four week post discharge follow up call) Social History Tobacco Use Types Packs/Day Years Used Date Smoking Tobacco: Some Days Cigarettes 0.3 30 Smokeless Tobacco: Never Comments:1 pack last about 1 0 days; previously was 2 ppd- one pack lasts a month Alcohol Use Standard Drinks/Week Comments Not Currently 0 (1 standard drink = 0.6 oz pur e alcohol) [facility] Utilities Answer Date Recorded In the past 12 months has [employer], gas, oil, or water [employer] threatened to shut off services in your [...] time in the past 12 m [facility], were you homeless or living in a jail (including now)? No 09/20/2023 IPV Inpatient Questions [...] Telephone Encounter - Charles Hunt MA - 10/24/2023 10:16 AM EDT COPD patient- Discharged: Patient left AMA 09/24/2023 Summary of events post discharge: I spoke with patient briefly, he was not in a place where he could talk today. Patient is aware to call PCP for any increasing symptoms. Date of last spirometry: 09/02/2022 Spirometry results: Last PFT Results: FEV1 Pre-BD % of Predicted Date Value Ref Range Status 09/02/2022 16 % Final and FEV1 / FVC Actual Pre-BD Date Value Ref Range Status 09/02/2022 43 % Final Additional notes: This is the final call for this patient. documented in this encounter Plan of Treatment Upcoming Encounters Date Type Department Care Team (Late st Contact Info) Description 03/18/2024 8:30 AM EST Appointment [place] [address] 03/18/2024 9:30 AM EST Office [place] [address] Hetal Ojeda MD [facility] [address] [place] [address] documented as of this encounter Visit Diagnoses Not on filedocumented in this encounter Care Teams Broadcast Designer Relationship Specialty Start Date End Date Alfredito Vargas MD [address] [place] [address] PCP - General Family Medicine 09/28/23 documented as of this encounter
--- OUTSIDE RECORDS SUMMARY | 2024-02-29 08:57 | XMS_ITS | Encounter Summary ---
Author Organization [facility] Address [facility] [place] [address] Care Team Providers Care Powder Guard Name Role Phone Alfredito Vargas MD Primary Care Provider [phone] Encounter Details Date Type Department Care Team (Late st Contact Info) Description 11/21/2023 Telephone Pulmonology at [facility] [place] [phone] Alda Shah Social History Tobacco Use Types Packs/Day Years Used Date Smoking Tobacco: Some Days Cigarettes 0.3 30 Smokeless Tobacco: Never Comments:1 pack last about 1 0 days; previously was 2 ppd- one pack lasts a month Alcohol Use Standard Drinks/Week Comments Not Currently 0 (1 standard drink = 0.6 oz pur e alcohol) [facility] Utilities Answer Date Recorded In the past 12 months has th e electric, gas, oil, or water company threatened to shut off services in your [...] any time in the past 12 m [facility], were you homeless or living in [...] encounter Miscellaneous Notes * Telephone Encounter - Elian Alaniz - 11/21/2023 10:15 AM EDT Patient called back and is scheduled 03/18 for his PFT and follow up with Dr. Ojeda. [facility]CO PFT scheduled for 8:30am on 03/18. documented in this encounter Plan of Treatment Upcoming Encounters Date Type Department Care Team (Late st Contact Info) Description 03/18/2024 8:30 AM EST [place] [address] 03/18/2024 9:30 AM EST [place] [address] Hetal Ojeda MD [facility] [place] [address] documented as of this encounter Visit Diagnoses Not on filedocumented in this encounter Care Teams Powder Guard Relationship Specialty Start Date End Date Alfredito Vargas MD [address] [place] [address] PCP - General Family Medicine 09/28/23 documented as of this encounter
--- OUTSIDE RECORDS SUMMARY | 2024-02-29 08:57 | XMS_ITS | Encounter Summary ---
Author Organization [facility] Address [facility] [place] [address] Care Team Providers Care Butt Maker Name Role Phone Alfredito Vargas MD Primary Care Provider [phone] Reason for Visit * Reason Onset Date Comments Follow-up 10/03/[address] [facility] hosp discharge for COPD Encounter Details Date Type Department Care Team (Late st Contact Info) Description 10/03/2023 Telephone Hospitalist [facility] [place] [phone] Viv Crystal, BETH Follow-up (One week call post hosp discharge for COPD) Social History Tobacco Use Types Packs/Day Years Used Date Smoking Tobacco: Some Days Cigarettes 0.3 30 Smokeless Tobacco: Never Comments:1 pack last about 1 0 days; previously was 2 ppd- one pack lasts a month Alcohol Use Standard Drinks/Week Comments Not Currently 0 (1 standard drink = 0.6 oz pur e alcohol) [facility] Utilities Answer Date Recorded In the past 12 months has e [employer], gas, oil, or water [employer] threatened to shut off services in your [...] any time in the past 12 m [facility], were you homeless or [...] encounter Miscellaneous Notes * Telephone Encounter - Viv Crystal CMA - 10/04/2023 11:41 AM EDT Unable to reach patient after multiple attempts. * Telephone Encounter - Viv Crystal CMA - 10/04/2023 10:08 AM EDT LM for patient. Will call again later. * Telephone Encounter - Viv Crystal CMA - 10/03/2023 10:27 AM EDT Patient not home. Will call back later. documented in this encounter Plan of Treatment Upcoming Encounters Date Type Department Care Team (Late st Contact Info) Description 03/18/2024 8:30 AM EST [place] [address] 03/18/2024 9:30 AM EST [place] [address] Hetal Ojeda MD [facility] [place] [address] documented as of this encounter Visit Diagnoses Not on filedocumented in this encounter Care Teams Butt Maker Relationship Specialty Start Date End Date Alfredito Vargas MD [address] [place] [address] PCP - General Family Medicine 09/28/23 documented as of this encounter
--- OUTSIDE RECORDS SUMMARY | 2024-02-29 08:57 | XMS_ITS | Encounter Summary ---
Author Organization [facility] Address [facility] [place] [address] Care Team Providers Care School Librarian Name Role Phone Alfredito Vargas MD Primary Care Provider [phone] Encounter Details Date Type Department Care Team (Late st Contact Info) Description 12/08/2023 Interpretation Only [facility] in [facility] [address] [place] [address] Priya Feldman Jr., MD [address] [place] [address] Social History Tobacco Use Types Packs/Day Years Used Date Smoking Tobacco: Some Days Cigarettes 0.3 30 Smokeless Tobacco: Never Comments:1 pack last about 1 0 days; previously was 2 ppd- one pack lasts a month Alcohol Use Standard Drinks/Week Comments Not Currently 0 (1 standard drink = 0.6 oz pur e alcohol) [facility] Utilities Answer Date Recorded In the past 12 months has e [employer], gas, oil, or water [email or web address] threatened to shut off services in your [...] any time in the past 12 m [facility], were you homeless or living in [...] 03/18/2024 8:30 AM EST [place] [address] 03/18/2024 9:30 AM EST [place] [address] Hetal Ojeda MD [facility] [place] [address] documented as of this encounter Procedures Procedure Name Priority Date/Time Associated Diagnosis Comments XR CHEST PA AND LATERAL STAT 12/08/2023 9:03 AM EDT documented in this encounter Results * XR Chest PA & Lateral (Generic) (12/08/2023 9:03 AM EDT) PT CLASS E RAD ADMITDTTM [id number] RAD PT RAD INFO [id number]^MARSAN ^PRIYA^J RAD EXAM DESC XCXR2^XR CHEST 2V PA AND LATERAL^RIS RAD WORKSTATION ID [id number] RAD Anatomical Region Laterality Modality Chest N/A [...] who have questions please contact the health caretaker resort that requested your imaging first. ? Electronically signed by: Emili Pham MD, [facility] ([phone]), at 12/08/2023 9:46 AM Narrative 12/08/2023 9:46 AM EDT EXAMINATION: XR [...] patients who have questions please contactthe health caretaker resort that requested your imaging first. Electronically signed by: Emili Pham MD, [facility]([phone]), at 12/08/2023 9:46 AM Priya Feldman Jr., MD IMG DX ORDERABLE S documented in this encounter Visit Diagnoses Not on filedocumented in this encounter Care Teams School Librarian Relationship Specialty Start Date End Date Alfredito Vargas MD [address] [place] [address] PCP - General Family Medicine 09/28/23 documented as of this encounter
--- OUTSIDE RECORDS SUMMARY | 2024-02-29 08:57 | XMS_ITS | Encounter Summary ---
Author Organization [facility] Address [facility] [place] [address] Care Team Providers Care Manager Crisis Name Role Phone Alfredito Vargas MD Primary Care Provider [phone] Encounter Details Date Type Department Care Team (Late st Contact Info) Description 12/14/2023 Interpretation Only [facility] in [address] [address] Mady Milner MD [address] [place] [address] Social History Tobacco Use Types Packs/Day Years Used Date Smoking Tobacco: Some Days Cigarettes 0.3 30 Smokeless Tobacco: Never Comments:1 pack last about 1 0 days; previously was 2 ppd- one pack lasts a month Alcohol Use Standard Drinks/Week Comments Not Currently 0 (1 standard drink = 0.6 oz pur e alcohol) [facility] Utilities Answer Date Recorded In the past 12 months has e [employer], gas, oil, or water [employer] threatened to shut off services in your [...] any time in the past 12 m [facility], were you homeless or living in a [...] 03/18/2024 8:30 AM EST Appointment [place] [address] 03/18/2024 9:30 AM EST Office [place] [address] Hetal Ojeda MD [facility] [place] [address] documented as of this encounter Procedures Procedure Name Priority Date/Time Associated Diagnosis Comments XR CHEST ONE VIEW STAT 12/14/2023 5:0 4 PM EDT documented in this encounter Results * XR Chest One View (12/14/2023 5:04 PM EDT) PT CLASS E RAD ADMITDTTM [id number] RAD PT RAD INFO [id number]^FAINA^ MADY^J RAD EXAM DESC XCXR1^XR CHEST PORTABLE OR 1V^RIS RAD WORKSTATION ID [id number] RAD Anatomical Region Laterality Modality Chest N/A Radiographic Lisa ging Impressions 12/14/2023 5:31 PM EDT Hazy bibasilar opacities may reflect evolving inflammatory or infectious process in the setting of known bronchial wall thickening which may reflect bronchitis or reactive airways disease and pneumonitis in the relevant clinical setting. Thank you for letting us participate in the care of this patient. ??If you are a health care provider and have any questions regarding this report, please contact the number below. ??For patients who have questions please contact the health health care / medical job titles that requested your imaging first. ? Narrative 12/14/2023 5:31 PM EDT EXAMINATION: XR CHEST PORTABLE OR 1V CLINICAL HISTORY: ??Reason for Chest: ??SOB ??Add'l Info: TECHNIQUE: Single portable view of the chest COMPARISON: December 08, 2023 FINDINGS: Coarsened lung markings remain throughout. Known bronchial wall thickening. Hazy opacity left lower lung in medial right lower lung. No consolidation. No pleural effusion. No pneumothorax. Cardiac, mediastinal and hilar contours are within normal limits. Procedure Note Anu Bolden MD - 12/14/2023 EXAMINATION: XR CHEST PORTABLE OR 1V CLINICAL HISTORY: Reason for Chest: SOB Add'l Info: TECHNIQUE: Single portable view of the chest COMPARISON: December 08, 2023 FINDINGS: Coarsened lung markings remain throughout. Known bronchial wallthickening. Hazy opacity left lower lung in medial right lower lung. No consolidation. Nopleural effusion. No pneumothorax. Cardiac, mediastinal and hilar contours arewithin normal limits. IMPRESSION Hazy bibasilar opacities may reflect evolving inflammatory or infectiousprocess in the setting of known bronchial wall thickening which may reflectbronchitis or reactive airways disease and pneumonitis in the relevant clinicalsetting. Thank you for letting us participate in the care of this patient. If youare a health care provider and have any questions regarding this report,please contact the number below. For patients who have questions please contactthe health health care / medical job titles that requested your imaging first. Electronically signed by: Anu Bolden MD, [facility]([phone]), at 12/14/2023 5:31 PM Mady Milner MD IMG DX ORDERABLES documented in this encounter Visit Diagnoses Not on filedocumented in this encounter Care Teams Manager Crisis Relationship Specialty Start Date End Date Alfredito Vargas MD [address] [place] [address] PCP - General Family Medicine 09/28/23 documented as of this encounter
--- OUTSIDE RECORDS SUMMARY | 2024-02-29 08:57 | XMS_ITS | Encounter Summary ---
Author Organization [facility] Address [facility] [place] [address] Care Team Providers Care Correctional Facility Psychiatrist Name Role Phone Alfredito Vargas MD Primary Care Provider [phone] Encounter Details Date Type Department Care Team (Late st Contact Info) Description 11/27/2023 Interpretation Only [facility] in [address] [address] Wilberto Camarillo, DO [address] [place], [place] [id number] Social History Tobacco Use Types Packs/Day Years Used Date Smoking Tobacco: Some Days Cigarettes 0.3 30 Smokeless Tobacco: Never Comments:1 pack last about 1 0 days; previously was 2 ppd- one pack lasts a month Alcohol Use Standard Drinks/Week Comments Not Currently 0 (1 standard drink = 0.6 oz pur e alcohol) [facility] Utilities Answer Date Recorded In the past 12 months has e [employer], gas, oil, or water [employer] threatened to shut off services in your [...] any time in the past 12 m [facility], were you homeless or living in a group home (including now)? No 09/20/2023 IPV Inpatient Questions [...] 03/18/2024 8:30 AM EST [place] [address] 03/18/2024 9:30 AM EST [place] [address] Hetal Ojeda MD [facility] [place] [address] documented as of this encounter Procedures Procedure Name Priority Date/Time Associated Diagnosis Comments XR CHEST ONE VIEW STAT 11/27/2023 8:0 3 PM EDT documented in this encounter Results * XR Chest One View (11/27/2023 8:03 PM EDT) PT CLASS E RAD ADMITDTTM [id number] RAD PT RAD INFO [id number]^CAMARILLO^R ZAIRE^J RAD EXAM DESC XCXR1^XR CHEST PORTABLE OR 1V^RIS RAD WORKSTATION ID [id number] RAD Anatomical Region Laterality Modality Chest N/A Radiographic Lisa ging Impressions 11/27/2023 8:20 PM EDT Interval development of hazy opacities in right lower lung on a background of chronic reticular opacities in bilateral lower lungs, concerning for infection/inflammation. Thank you for letting us participate in the care of this patient. ??If you are a health care provider and have any questions regarding this report, please contact the number below. ??For patients who have questions please contact the health healthcare market consultant that requested your imaging first. ? Narrative 11/27/2023 8:20 PM EDT EXAMINATION: XR CHEST PORTABLE OR 1V CLINICAL HISTORY: ??Reason for Chest: ??COPD ??Add'l Info: TECHNIQUE: 1 view of the chest . One image. COMPARISON: Chest x-ray 10/21/2023 and 09/19/2023. CT chest 10/16/2023.. FINDINGS: Trachea, mainstem bronchi, cardiomediastinal silhouette, and martir are within normal limits. Emphysema/COPD. Interval development of hazy opacities in right lower lung on a background of chronic reticular opacities in bilateral lower lungs. No sizable pleural effusion. No pneumothorax. Unchanged osseous structures. Normal upper abdomen. Procedure Note Ubaldo Ruby MD - 11/27/2023 EXAMINATION: XR CHEST PORTABLE OR 1V CLINICAL HISTORY: Reason for Chest: COPD Add'l Info: TECHNIQUE: 1 view of the chest . One image. COMPARISON: Chest x-ray 10/21/2023 and 09/19/2023. CT chest 10/16/2023.. FINDINGS: Trachea, mainstem bronchi, cardiomediastinal silhouette, and martir arewithin normal limits. Emphysema/COPD. Interval development of hazy opacities inright lower lung on a background of chronic reticular opacities in bilaterallower lungs. No sizable pleural effusion. No pneumothorax. Unchanged osseous structures. Normal upper abdomen. IMPRESSION Interval development of hazy opacities in right lower lung on a backgroundof chronic reticular opacities in bilateral lower lungs, concerning for infection/inflammation. Thank you for letting us participate in the care of this patient. If youare a health care provider and have any questions regarding this report,please contact the number below. For patients who have questions please contactthe health healthcare market consultant that requested your imaging first. Electronically signed by: Radha Ruby MD, [facility]([phone]), at 11/27/2023 8:20 PM Wilberto Camarillo DO IMG DX ORDERABLES documented in this encounter Visit Diagnoses Not on filedocumented in this encounter Care Teams Correctional Facility Psychiatrist Relationship Specialty Start Date End Date Alfredito Vargas MD [address] [place] [address] PCP - General Family Medicine 09/28/23 documented as of this encounter
[2024-02-29] MEDS: Albuterol/Ipratropium 3 ML UPD VIAL (08:58)
--- OUTSIDE RECORDS SUMMARY | 2024-02-29 08:58 | XMS_ITS | Encounter Summary ---
Author Organization [facility] Address [facility] [place] [address] Care Team Providers Care Inside Sales Account Executive Name Role Phone Alfredito Vargas MD Primary Care Provider [phone] Encounter Details Date Type Department Care Team (Late st Contact Info) Description 09/18/2023 Telephone Pulmonology at [facility] [place] [phone] Carmen Cooper RN Social History Tobacco Use Types Packs/Day Years Used Date Smoking Tobacco: Some Days Cigarettes 0.3 30 Smokeless Tobacco: Never Comments:1 pack last about 1 0 days; previously was 2 ppd- one pack lasts a month Alcohol Use Standard Drinks/Week Comments Not Currently 0 (1 standard drink = 0.6 oz pur e alcohol) [place] Utilities Answer Date Recorded In the past [...] were you homeless or living in a assisted (including now)? No 09/20/2023 [facility] Inpatient Questions Answer Date Recorded Does Anyone [...] encounter Miscellaneous Notes * Telephone Encounter - Carmen Cooper RN - 09/19/2023 9:30 AM EDT Call to patient. Left message that we tried to touch base with him yesterday and were unsuccessful. LM that when he arrives to [facility] today for his visit that he'll need to go to [facility] for imaging. Advised he may have to wait for multiple hours for his visit today with Dr. Reynolds. * Telephone Encounter - Carmen Cooper RN - 09/18/2023 3:58 PM EDT Copied from CRM #[id number]. Topic: Specialty Dept CRMs - Generic Call >> September 18, 2023 3:54 PM Magaly Bee wrote: Specialist: Rodolfo Relationship (if other than patient-full name): [employer]- [employer] transportation Reason for Call: [facility] states they do not have a ride for patient tomarrow at 1pm. Clar[facility]za states they have earlier at 9am. Please advise. documented in this encounter Plan of Treatment Upcoming Encounters Date Type Department Care Team (Late st Contact Info) Description 03/18/2024 8:30 AM EST Appointment [place] [address] 03/18/2024 9:30 AM EST Office [place] [address] Hetal Ojeda MD [facility] [place] [address] documented as of this encounter Visit Diagnoses Not on filedocumented in this encounter Additional Health Concerns Infection Onset Date Last Indicated Resolved Time Rule Out Respiratory 09/19/2023 09/19/2023 024 5:56 PM EDT Rule Out COVID-19 09/19/2023 09/19/2023 09/19/2023 5:56 PM EDT Haemophilus influenza 09/19/2023 09/19/20232023 8:09 PM EDT documented as of this encounter Care Teams Inside Sales Account Executive Relationship Specialty Start Date End Date Alfredito Vargas MD [address] [place] [address] PCP - General Family Medicine 09/28/23 documented as of this encounter
--- OUTSIDE RECORDS SUMMARY | 2024-02-29 08:58 | XMS_ITS | Encounter Summary ---
Author Organization [facility] [place] [address] Care Team Providers Care Project Portfolio Analyst Name Role Phone Travis Castaneda MD Primary Care Provider [phone] Encounter Details Date Type Department Care Team (Late st Contact Info) Description 06/05/2023 Telephone Pul[facility]ology at [facility] [place] [phone] Stefanie Paul RN Social History Tobacco Use Types Packs/Day Years Used Date Smoking Tobacco: Some Days Cigarettes 0.3 30 Smokeless Tobacco: Never Comments:1 pack last about 1 0 days; previously was 2 ppd- one pack lasts a month Alcohol Use Standard Drinks/Week Comments Not Currently 0 (1 standard drink = 0.6 oz pur e alcohol) [facility] Inpatient Questions Answer Date Recorded Does Anyone Try to Keep You From Having Contact with Others or Doing Things Outside Your Home? no 12/12/2022 Feels Threatened by Someone no 11/29 Feels Unsafe at Home or Work/School no 12/12/2022 Physical Signs of Abuse Present no 12/12/2022 Sex and Gender Information Value Date Recorded Sex Assigned at Not on file Gender Identity Not on file Sexual Orientation Not on file documented as of this encounter Miscellaneous Notes * Telephone Encounter - Stefanei Paul RN - 06/05/2023 12:45 PM EST Copied from [facility] #[id number]. Topic: Specialty Dept CRMs - Generic Call >> Jun 05, 2023 9:09 AM Jeimy Merrill wrote: Specialist: Hetal Ojeda Relationship (if other than patient-full name): self Reason for Call: Patient had to cancel today's appointment at 1:30 pm because he is admitted in [place] with pneumonia. No availability to reschedule, please call patient to help reschedule. documented in this encounter Plan of Treatment Upcoming Encounters Date Type Department Care Team (Late st Contact Info) Description 03/18/2024 8:30 AM EST [place] [address] 03/18/2024 9:30 AM EST [place] [address] Hetal Ojeda MD [facility] [place] [address] documented as of this encounter Visit Diagnoses Not on filedocumented in this encounter Care Teams Project Portfolio Analyst Relationship Specialty Start Date End Date Travis Castaneda MD [address] [place] [address] PCP - General Internal Medicine 10/29/18 09/27/23 documented as of this encounter
--- OUTSIDE RECORDS SUMMARY | 2024-02-29 08:58 | XMS_ITS | Encounter Summary ---
Author Organization [facility] Address [facility] [place] [address] Care Team Providers Care Head Of Talent Management Name Role Phone Alfredito Vargas MD Primary Care Provider Encounter Details Date Type Department Care Team (Late st Contact Info) Description 09/18/2023 Telephone Pulmonology at [facility] [place] [phone] Carmen Cooper RN Social History Tobacco Use Types Packs/Day Years Used Date Smoking Tobacco: Some Days Cigarettes 0.3 30 Smokeless Tobacco: Never Comments:1 pack last about 1 0 days; previously was 2 ppd- one pack lasts a month Alcohol Use Standard Drinks/Week Comments Not Currently 0 (1 standard drink = 0.6 oz pur e alcohol) [facility] Utilities Answer Date Recorded In the [...] any time in the past 12 m [facility], were you homeless or living in a [place] health care facility (including now)? No 09/20/2023 IPV Inpatient Questions [...] 03/18/2024 8:30 AM EST Appoint[place] [address] 03/18/2024 9:30 AM EST [place] [address] Hetal Ojeda MD [facility] [place] [address] documented as of this encounter Visit Diagnoses Not on filedocumented in this encounter Additional Health Concerns Infection Onset Date Last Indicated Resolved Time Rule Out Respiratory 09/19/2023 09/19/2023 024 5:56 PM EDT Rule Out COVID-19 09/19/2023 09/19/2023 09/19/2023 5:56 PM EDT Haemophilus influenza 09/19/2023 09/19/20232023 8:09 PM EDT documented as of this encounter Care Teams Head Of Talent Management Relationship Specialty Start Date End Date Alfredito Vargas MD [address] [place] [address] PCP - General Family Medicine 09/28/23 documented as of this encounter
--- OUTSIDE RECORDS SUMMARY | 2024-02-29 08:58 | XMS_ITS | Encounter Summary ---
Author Organization [facility] Address [facility] [address] [place] [address] Care Team Providers Care Lining Maker Name Role Phone Travis Castaneda MD Primary Care Provider + [phone] Reason for Visit * Auth/Cert (Routine) Specialty Diagnoses / Procedures Referred By Gulshan t Referred To Contact Diagnoses COPD exacerbation Cornelio Perdomo MD [facility] [place] [address] [facility] Referral ID Status Reason Start Date Expiration Date Visits Re quested Visits Authorized [id number] 1 1 Encounter Details Date Type Department Care Team (Latest Contact Info) Description 09/19/2023 1:02 PM EDT - 09/19/2023 3:01 PM EDT Hospital Encounter XRay at [address] [place] [address] Fuad Reynolds MD [facility] [place] [address] Asthma-COPD overlap syndrome; COPD with exacerbation Discharge Disposition: Home Social History Tobacco Use Types Packs/Day Years Used Date Smoking Tobacco: Some Days Cigarettes 0.3 30 Smokeless Tobacco: Never Comments:1 pack last about 1 0 days; previously was 2 ppd- one pack lasts a month Alcohol Use Standard Drinks/Week Comments Not Currently 0 (1 standard drink = 0.6 oz pur e alcohol) [facility] Utilities Answer Date Recorded In the past 12 months has e electric, gas, oil, or water company [...] any time in the past 12 m [facility], were you homeless or living in a penitentiary (including now)? No 09/20/2023 [facility] IPV Inpatient [...] on file documented as of this encounter Medications at Time of Discharge Medication Sig Dispensed Refills Start Date End Date predniSONE (Deltasone) 10 mg tabletIndications:Ast hma-COPD overlap syndrome Take 1 tablet by mouth daily. 90 tablet 1 09/14/2023 Anoro Ellipta 62.5-25 mcg/actuation Disk with DeviceIndications:LABORATORY AIDE D, very severe Inhale 1 Inhalation into the lungs daily. 60 each 11 06/26/2023 polyethylene glycoL (Miralax) 17 gram oral powder packet Take 17 g by mouth 2 times daily. Hold a dose if you have three or more bowel movements a day 14 each 12/20/2022 senna-docusate (Pericolace) 8.6-50 mg Tablet Take 2 tablets by mouth 2 times daily. 60 tablet 11 12/20/[address] (Cymbalta) [address] capsule Take 1 capsule by mouth daily. 30 tablet 12/19/2022 testosterone cypionate (DepoTESTOSTERONE Cypionate) (200mg/mL) injection Inject 100 mg into the muscle every 14 days. Last dose 12/02/22 zonisamide (Zonegran) 100 mg Capsule Take 2 capsules by mouth daily. 60 capsule 3 06/03/2022 busPIRone (Buspar) 15 mg Tablet Take 1 tablet by mouth 3 times daily. 90 tablet 06/03/2022 lisinopriL (Prinivil;Zestril) 20 mg Tablet Take 40 mg by mouth daily. Flovent HFA 220 mcg/actuation HFA Aerosol Inhaler Inhale 2 puffs into the lungs 2 times daily. 01/24/2020 methadone (Dolophine) 10 mg/mL Concentrate Take 132 mg by mouth daily. Per methadone clinic, Per patient report, gets take home doses, [facility] [phone] last dose 12/12/22 per patient LORazepam (ATIVAN) 1 mg Tablet Take 1 tablet by mouth 2 times daily as needed for Anxiety. 10 tablet 01/31/2019 QUEtiapine (SEROQUEL) 200 mg Tablet Take 1.5 tablets by mouth nightly. 01/31/2019 ipratropium-albuterol (COMBIVENT RESPIMAT) 20-100 mcg/actuation Mist Inhale 1 puff into the lungs every 6 hours as needed for Wheezing. albuterol 90 mcg/actuation HFA Aerosol Inhaler Inhale 2 puffs into the lungs every 6 hours. Use with spacer ibuprofen (ADVIL;MOTRIN) 600 mg Tablet Take 600 mg by mouth 2 times daily as needed for Pain. calcium carbonate (TUMS) 200 mg calcium (500 mg) Tablet, Chewable Take 2 tablets by mouth 3 times daily as needed for Heartburn. acetaminophen (TYLENOL) 500 mg Tablet Take 1 tablet by mouth every 6 hours as needed for Pain. 30 tablet 1 11/26/2018 ipratropium-albuterol (DUONEB) 0.5 mg-3 mg(2.5 mg base)/3 mL Solution for Nebulization Take 0.5 mg by nebulization every 6 hours. 1 Box 4 11/26/2018 pregabalin (LYRICA) 200 mg Capsule Take 1 capsule by mouth 3 times daily. 60 capsule 11/26/2018 doxycycline (Vibramycin) 100 mg capsule Take 1 capsule by mouth 2 times daily for 5 days. 10 capsule 09/24/2023 09/29/2023 doxycycline (Vibramycin) 100 mg capsule Take 1 capsule by mouth 2 times daily for 5 days. 10 capsule 09/24/2023 09/24/2023 bisacodyl EC (Dulcolax) 5 mg Tablet, Delayed Release (E.C.) Take 1 tablet by mouth daily as needed for Constipation. 30 tablet 06/03/2022 09/24/2023 documented as of this encounter Plan of Treatment Upcoming Encounters Date Type Department Care Team (Late st Contact Info) Description 03/18/2024 8:30 AM EST Appointment [place] [address] 03/18/2024 9:30 AM EST Office [place] [address] Hetal Ojeda MD [facility] [place] [address] documented as of this encounter Procedures Procedure Name Priority Date/Time Associated Diagnosis Comments XR CHEST PA AND LATERAL Routine 09/19/2023 1:13 PM EDT Asthma-COPD overlap syndrome COPD with exacerbation documented in this encounter Results * XR Chest PA & Lateral (Generic) (09/19/2023 1:13 PM EDT) WORKSTATION ID [id number] RAD Anatomical Region Laterality Modality Chest N/A Digital Radiogra phy Impressions 09/19/2023 4:31 PM EDT COPD without acute changes Thank you for letting us participate in the care of this patient. ??If you are a health care provider and have any questions regarding this report, please contact the number below. ??For patients who have questions please contact the health healthcare prof that requested your imaging first. ? Narrative 09/19/2023 4:31 PM EDT EXAMINATION: XR CHEST PA AND LATERAL (GENERIC) CLINICAL HISTORY: Severe dyspnea, cough J44.89, Other specified chronic obstructive pulmonary disease - J44.1, Chronic obstructive pulmonary disease with (acute) exacerbation TECHNIQUE: PA and lateral views of the chest COMPARISON: 12/18/2022 FINDINGS: Hyperinflated lungs with flattening of both hemidiaphragms. Stable bibasilar and RIGHT midlung zone scarring. Emphysematous changes in the apices. No pulmonary edema, pneumonia or other acute change. No pneumothorax or pleural effusion. Normal heart size Procedure Note Nedra Myers MD - 09/19/2023 EXAMINATION: XR CHEST PA AND LATERAL (GENERIC) CLINICAL HISTORY: Severe dyspnea, cough J44.89, Other specified chronic obstructive pulmonary disease - J44.1,Chronic obstructive pulmonary disease with (acute) exacerbation TECHNIQUE: PA and lateral views of the chest COMPARISON: 12/18/2022 FINDINGS: Hyperinflated lungs with flattening of both hemidiaphragms. Stablebibasilar and RIGHT midlung zone scarring. Emphysematous changes in the apices. Nopulmonary edema, pneumonia or other acute change. No pneumothorax or pleuraleffusion. Normal heart size IMPRESSION COPD without acute changes Thank you for letting us participate in the care of this patient. If youare a health care provider and have any questions regarding this report,please contact the number below. For patients who have questions please contactthe health healthcare prof that requested your imaging first. Fuad Tamayo MD IMG DX ORDERABLES documented in this encounter Visit Diagnoses Diagnosis Asthma-COPD overlap syndrome COPD with exacerbation Obstructive chronic bronchitis with exacerbation documented in this encounter Care Teams Lining Maker Relationship Specialty Start Date End Date Travis Castaneda MD [address] [place] [address] PCP - General Internal Medicine 10/29/18 09/27/23 documented as of this encounter
--- OUTSIDE RECORDS SUMMARY | 2024-02-29 08:58 | XMS_ITS | Encounter Summary ---
Author Organization [facility] Address [facility] [place] [address] Care Team Providers Care Accounting Machine Operator Name Role Phone Travis Castaneda MD Primary Care Provider [phone] Encounter Details Date Type Department Care Team (Late st Contact Info) Description 01/20/2023 Telephone [place] [address] Alda Shah Social History Tobacco Use Types Packs/Day Years Used Date Smoking Tobacco: Some Days Cigarettes 0.3 30 Smokeless Tobacco: Never Comments:1 pack last about 1 0 days; previously was 2 ppd- one pack lasts a month Alcohol Use Standard Drinks/Week Comments Not Currently 0 (1 standard drink = 0.6 oz pur e alcohol) [facility] Inpatient Questions Answer Date Recorded [...] 03/18/2024 8:30 AM EST Appointment [place] [phone] 03/18/2024 9:30 AM EST Office [place] [address] Hetal Ojeda MD [facility] [place] [address] documented as of this encounter Visit Diagnoses Not on filedocumented in this encounter Care Teams Accounting Machine Operator Relationship Specialty Start Date End Date Travis Castaneda MD [address] [place] [address] PCP - General Internal Medicine 10/29/18 09/27/23 documented as of this encounter
--- OUTSIDE RECORDS SUMMARY | 2024-02-29 08:58 | XMS_ITS | Encounter Summary ---
Author Organization [facility] Address [facility] [place] [address] Care Team Providers Care Money Market Clerk Name Role Phone Travis Castaneda MD Primary Care Provider [phone] Reason for Visit * Reason Onset Date Comments COPD 12/22/2022 Oxygen Dependence 12/22/2022 Encounter Details Date Type Department Care Team (Late st Contact Info) Description 12/22/2022 Telephone Pulmonology at [facility] [place] [phone] Dawood Leyva RN COPD; Oxygen Dependence Social History Tobacco Use Types Packs/Day Years Used Date Smoking Tobacco: Some Days Cigarettes 0.3 30 Smokeless Tobacco: Never Comments:1 pack last about 1 0 days; previously was 2 ppd- one pack lasts a month Alcohol Use Standard Drinks/Week Comments Not Currently 0 (1 standard drink = 0.6 oz pur e alcohol) [facility] Inpatient Questions Answer Date Recorded [...] encounter Miscellaneous Notes * Telephone Encounter - Dawood Leyva RN - 12/23/2022 4:54 PM EDT RN called back to patient, LMOM requesting that patient proceed to nearest hospital using 911 for worsening symptoms. * Telephone Encounter - Hetal Ojeda MD - 12/23/2022 3:09 PM EDT Placed call to PCP's office to try to discuss management since this is a rapidly recurrent issue. PCP Dr. Castaneda is not in the office today, his nurse will pass on a message that I am try to reach him when he is back in the office next week. Unfortunately it sounds like he has not been seen by PCP in a number of months as well (last visit with Dr. Castaneda August 2022.) He is already on pretty robust dose of prednisone, prolonged after recent hospitalization. Awaiting f/u visit scheduling, message was sent to schedulers to request for early December. For acute severe issues local ED is best access point. Hteal Ojeda MD * Telephone Encounter - Ramesh Leyva-Markie Mendieta RN - 12/23/2022 12:39 PM EDT RN called back to [facility] and was able to speak to him directly. He notes that he is not breathing too good. Can't get no air into my lungs. Patient relayed that he had gone to [facility] for medical intervention, but he feels that they did nothing beneficial for him. He notes that the provider that saw him in the ED at [facility] had taken xrays, but only was going to prescribe him oral prednisone which he was already on. Hesaid my lungs we gone. Patient stated that he is on 40 mg PO daily, to titrate to 30 mg PO daily. Audible expiratory wheezing was noted over the phone. When asked of what his oxygen saturation was, he reports that he lacks a pulse oximeter at home andcannot take his oxygen levels. Patient notes that he is using up to 5L. He confirmed using breathing techniques, and states that he is using his Duonebs Q 4 hours. He notes a lack of appetite since his discharge on 12/20/2022, though he is trying to increase his fluid intake. It doesn't feel like I want to put anythig in it, you know? Patient notes that he has intermittent chest discomfort, mostly on the right side, along with back pain Where it was really cloudy on the xray. Patient denies LEFT lower extremity swelling, face puffiness, or upper extremities swelling. Denies fevers. Patient also relays that he Fell down yesterday, hit back of head. Patient refused EMS at that time. RN encouraged patient to call for transport to ED at [facility]. Patient stated that he would have to call an ambulance, but they would not take him to [facility] as [facility] is closer. RN faxed records request to [facility] Medical Records, and image request to [facility] Image Library. * Telephone Encounter - Dawood Leyva RN - 12/22/2022 1:14 PM EDT Images from the original note were not included. RN rec'd the following message through [employer] Patient Calls: Viv Crystal CMA to [facility] Pulmonology Nurse 12:29 PM FYI 48 hours post hosp discharge On my phone call 12/22/22, 48 hours post hospital discharge patient says he feels so-so. Patient states he doesn't feel good, his whole body hurts, and he is having issues swallowing. Patient stateshe is feeling anxiety and feels like he may need to be at the hospital again. Patient wasn't able to obtain all of his medications due to finances. Patient states oxygen saturation has been in the 70s and 80s. This message is from the Hospitalist MA Team who does surveillance calls post discharge. As part ofour discharge plans we will be following your patient weekly for four weeks to gather data. We willreport any concerns or worsening symptoms during this time frame. Our team cannot provide any advice to patients. We will leave this update with your clinic so that you may intervene if you feel the patient needs any advice or treatment. RN called back to [facility] and was notified by unidentified female that he was going to his local hospital for assistance. documented in this encounter Plan of Treatment Upcoming Encounters Date Type Department Care Team (Late st Contact Info) Description 03/18/2024 8:30 AM EST Appointment [place] [address] 03/18/2024 9:30 AM EST Office [place] [address] Hetal Ojeda MD [facility] [address] [place] [address] documented as of this encounter Visit Diagnoses Not on filedocumented in this encounter Care Teams Money Market Clerk Relationship Specialty Start Date End Date Travis Castaneda MD [address] [place] [id number] PCP - General Internal Medicine 10/29/18 09/27/23 documented as of this encounter
--- OUTSIDE RECORDS SUMMARY | 2024-02-29 08:58 | XMS_ITS | Encounter Summary ---
Author Organization [facility] Address [facility] [place] [address] Care Team Providers Care Industrial Truck Mechanic Name Role Phone Travis Castaneda MD Primary Care Provider [phone] Encounter Details Date Type Department Care Team (Late st Contact Info) Description 02/20/2023 [place] [address] Alda Shah Social History Tobacco Use Types Packs/Day Years Used Date Smoking Tobacco: Some Days Cigarettes 0.3 30 Smokeless Tobacco: Never Comments:1 pack last about 1 0 days; previously was 2 ppd- one pack lasts a month Alcohol Use Standard Drinks/Week Comments Not Currently 0 (1 standard drink = 0.6 oz pur e alcohol) [facility] Inpatient Questions Answer Date Recorded Does Anyone [...] 03/18/2024 8:30 AM EST [place] [phone] 03/18/2024 9:30 AM EST [place] [address] Hetal Ojeda MD [facility] [place] [address] documented as of this encounter Visit Diagnoses Not on filedocumented in this encounter Care Teams Industrial Truck Mechanic Relationship Specialty Start Date End Date Travis Castaneda MD [address] [place] [address] PCP - General Internal Medicine 10/29/18 09/27/23 documented as of this encounter
--- OUTSIDE RECORDS SUMMARY | 2024-02-29 08:58 | XMS_ITS | Encounter Summary ---
Author Organization [facility] Address [facility] [place] [address] Care Team Providers Care Cutting Machine Tender Decorative Name Role Phone Travsi Castaneda MD Primary Care Provider [phone] Reason for Visit * Reason Onset Date Comments Pulmon Rehab 07/10/2023 Referral Encounter Details Date Type Department Care Team (Late st Contact Info) Description 07/10/2023 Telephone Pulmonology at [facility] [place] [phone] Dawood Leyva RN Pulmon Rehab (Referral) Social History Tobacco Use Types Packs/Day Years [...] Telephone Encounter - Dawood Leyva RN - 07/11/2023 7:50 AM EDT Faxed completed Referral for Pulmonary Rehab, signed by Dr. Ojeda, to [facility]. Attached to this was the following items: Patient Demographics, Allergies and Medications, Immunization Summary, Office Visit Notes dated: 06/26/2023, PFT Results dated 09/02/2022, ED to Hosp Admission Notes dated: 12/12/2022-12/20/2022 This covered the following items: Rehabilitation - Evaluate and Treat Fax submission confirmation time stamped for 07/10/2023 @ 7571. 17 xodrl with cover sheet. documented in this encounter Plan of Treatment Upcoming Encounters Date Type Department Care Team (Late st Contact Info) Description 03/18/2024 8:30 AM EST Appointment [place] [address] 03/18/2024 9:30 AM EST Office [place] [address] Hetal Ojeda MD [facility] [place] [address] documented as of this encounter Visit Diagnoses Not on filedocumented in this encounter Care Teams Cutting Machine Tender Decorative Relationship Specialty Start Date End Date Travsi Castaneda MD [address] [place] [address] PCP - General Internal Medicine 10/29/18 09/27/23 documented as of this encounter
--- OUTSIDE RECORDS SUMMARY | 2024-02-29 08:58 | XMS_ITS | Encounter Summary ---
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 ambulation]: One assist Supervision [direct monitoring required during toileting and ADLs]: Eyes on per unit protocol when OOB/with ADL's Surveillance [continuous indirect monitoring]: Masimo, Purposeful Rounding, Nurse Knowledge Exchange * Plan of Care - Telly Hough Jr., RN - 09/22/2023 3:48 PM EDT Problem: Adult Inpatient Plan of Care Goal: Plan of Care Review Outcome: Ongoing (Interventions Implemented as Appropriate) Goal: Patient-Specific Goal (Individualized) Outcome: Ongoing (Interventions Implemented as Appropriate) Goal: Absence of Hospital-Acquired Illness or Injury Outcome: Ongoing (Interventions Implemented as Appropriate) Goal: Optimal Comfort and Wellbeing Outcome: Ongoing (Interventions Implemented as Appropriate) Goal: Readiness for Transition of Care Outcome: Ongoing (Interventions Implemented as Appropriate) Problem: Opioid Dependence or Withdrawal Goal: Withdrawal Symptoms Managed Outcome: Ongoing (Interventions Implemented as Appropriate) Problem: Gas Exchange Impaired Goal: Optimal Gas Exchange Outcome: Ongoing (Interventions Implemented as Appropriate) Problem: Fall Injury Risk Goal: Absence of Fall and Fall-Related Injury Outcome: Ongoing (Interventions Implemented as Appropriate) Problem: Pain Acute Goal: Acceptable Pain Control and Functional Ability Outcome: Ongoing (Interventions Implemented as Appropriate) * Care Management - Celine Peterson RN - 09/22/2023 1:15 PM EDT OFFICE OF CARE MANAGEMENT PROGRESS NOTE LOS: Hospital Day 3 days Chart reviewed, care reviewed with primary team and at interdisciplinary rounds. Patient continues to meet inpatient level of care related to: COPD exacerbation Decision Maker: Self Functional status prior to admission: Assistive Equipment Home Environment: Others in the home: roomate(s) (Pt lives with two roommates). Current Living Arrangements: home/apartment/condo (Doublewide). Accessibility Concerns: one level doublewide mobile home. Current Functional Ability: Assistive Equipment DME used at home: oxygen, walker - standard DME Needed at Discharge: No Patient is insured through: Primary Insurance: MEDICARE Payor: MEDICARE / Plan: MEDICARE PART A & B / Product Type: *No Product type* / Secondary Insurance: MEDICAID [place] Last Physical Therapy Recommendation: home with daily check in with None Last Occupational Therapy Recommendation: with Plan for discharge is: Resp Needs: Home O2 Company: [employer] Referrals: Not Applicable Transportation: other *RCT Barriers to discharge: Discharge planning Plan going forward: Care Management will continue to follow and assist with discharge planning and coordination of care as indicated. Anticipated Date of Discharge: 09/23/2023 [phone] * Plan of Care - Emily Martin RN - 09/22/2023 3:10 AM EDT Problem: Adult Inpatient Plan of Care Goal: Plan of Care Review Outcome: Ongoing (Interventions Implemented as Appropriate) Goal: Patient-Specific Goal (Individualized) Outcome: Ongoing (Interventions Implemented as Appropriate) Goal: Absence of Hospital-Acquired Illness or Injury Outcome: Ongoing (Interventions Implemented as Appropriate) Goal: Optimal Comfort and Wellbeing Outcome: Ongoing (Interventions Implemented as Appropriate) Goal: Readiness for Transition of Care Outcome: Ongoing (Interventions Implemented as Appropriate) Problem: Opioid Dependence or Withdrawal Goal: Withdrawal Symptoms Managed Outcome: Ongoing (Interventions Implemented as Appropriate) Problem: Gas Exchange Impaired Goal: Optimal Gas Exchange Outcome: Ongoing (Interventions Implemented as Appropriate) Problem: Fall Injury Risk Goal: Absence of Fall and Fall-Related Injury Outcome: Ongoing (Interventions Implemented as Appropriate) Problem: Pain Acute Goal: Acceptable Pain Control and Functional Ability Outcome: Ongoing (Interventions Implemented as Appropriate) * Plan of Care - Rae Burciaga RN - 09/21/2023 6:00 AM EDT OUTCOME EVALUATION NOTE: OUTCOME SUMMARY: Patient is A+O x4; very hypertensive at beginning of shift. PRN Hydralazine administered. Also noted to be intermittently irritable and agitated. CIWA scoring ~14 when awake. PRN Ativan administered per orders. Back pain controlled with PRN pain Toradol. LLE prosthesis at bedside. Methadone administered in early AM, per patient preference. Will continue to monitor and help patient reach d/c goals. PLAN MOVING FORWARD: Pain control Mobilize D/c planning INDIVIDUALIZED FALL PREVENTION: Patient is currently a high risk to Fall. Patient educated on bed/chair alarm, demonstrates proper use of call gilmore and verbalizes understanding of fall preventions implemented. Patient-specific fall risk factors per assessment: [current deficits]: Pain, Medications, Hospital Environment. Assistance [level of assistance required for transfers and ambulation]: 1x assist Supervision [direct monitoring required during toileting and ADLs]: Eyes on per unit protocol when OOB/with ADL's Surveillance [continuous indirect monitoring]: Bryson, Purposeful Rounding, Nurse Knowledge Exchange * Plan of Care - Bharati Palacio RN - 09/20/2023 6:00 PM EDT OUTCOME EVALUATION NOTE: OUTCOME SUMMARY: Pt A+Ox4, Bp elevated most of shift. Pt on RA. Pt c/o 8-10/10 head and back pain managed with scheduled and prn medications. Prn Hydralazine and labetalol given for sbp >170. Toradol added to prnsfor pain. PT/OT worked with patient today. Up in chair this afternoon. Pt frequently c/o pain, headache, and anxiety throughout shift. Discovered that pt is going through alc withdrawal and new CIWA protocol added- pt scoring 12-14 and dosed as appropriate- see MAR. Pt frequently reassured throughout shift. PLAN MOVING FORWARD: Pain management Ambulation CIWA D/c planning INDIVIDUALIZED FALL PREVENTION INTERVENTIONS: Patient-specific fall risk factors per assessment: [current deficits]: Pain. Pain medications. Generalized weakness. Hospital environment. Withdrawal. Anxiety. Assistance [level of assistance required for transfers and ambulation]: 1A Supervision [direct monitoring required during toileting and ADLs]: Hands on Surveillance [continuous indirect monitoring]: Masimo. Call gilmore in reach. Bed locked and low. Nonskid socks on when OOB. Environmental modifications. Purposeful rounding. Nurse knowledge exchange. Patient-specific fall prevention interventions for sensory deficits provided, if applicable: [X] N/A CARE PLAN GOAL OUTCOME EVALUATION: Problem: Adult Inpatient Plan of Care Goal: Plan of Care Review Outcome: Ongoing (Interventions Implemented as Appropriate) Goal: Patient-Specific Goal (Individualized) Outcome: Ongoing (Interventions Implemented as Appropriate) Goal: Absence of Hospital-Acquired Illness or Injury Outcome: Ongoing (Interventions Implemented as Appropriate) Goal: Optimal Comfort and Wellbeing Outcome: Ongoing (Interventions Implemented as Appropriate) Goal: Readiness for Transition of Care Outcome: Ongoing (Interventions Implemented as Appropriate) * Care Management - Shasta Lawson MSW - 09/20/2023 1:40 PM EDT OFFICE OF CARE MANAGEMENT PROGRESS NOTE LOS: Hospital Day 1 day Chart reviewed, care reviewed with primary team and at interdisciplinary rounds. Patient continues to meet inpatient level of care related to: COPD Exacerbation Functional status prior to admission: Assistive Equipment Home Environment: Others in the home: roomate(s) (Pt lives with two roommates). Current Living Arrangements: home/apartment/condo (Doublewide). Accessibility Concerns: one level doublewide mobile home. Current Functional Ability: uses a wheelchair DME used at home: oxygen, walker - standard DME Needed at Discharge: tbd Patient is insured through: Primary Insurance: MEDICARE Payor: MEDICARE / Plan: MEDICARE PART A & B / Product Type: *No Product type* / Secondary Insurance: MEDICAID [place] Last Physical Therapy Recommendation: home with daily check in with None Last Occupational Therapy Recommendation: with Plan for discharge is: return home with continued services Agency Referrals: tbd Transportation: RCT Barriers to discharge: tbd Plan going forward: Care Management will continue to follow and assist with discharge planning and coordination of care as indicated. Anticipated Date of Discharge: 09/22/2023 EDD Perez * Initial Assessments - Shasta Lawson MSW - 09/20/2023 1:37 PM EDT Office of Care Management Initial Assessment EDD Royal reviewed record and discussed patient with Care Team. Source of Information: Team, bedside nurse, medical record, and Patient, Chart Review FIRST AID TRAINER Introduced self/reviewed role; services accepted. Admitted From: Home Reason for Hospitalization: Difficulty breathing Covid Vaccination Status: Unvaccinated Last COVID test: Lab Results Component Value Date COVID19 Not Detected 03/09/2020 [id number] Not Detected 05/30/2022 Past medical History: Past Medical History: Diagnosis Date Alcohol abuse Anxiety COPD (chronic obstructive pulmonary disease) Opioid abuse Hospitalizations Within the Past 30 Days: no previous admission in last 30 days Current Decision-Making Capacity: Self If AD's have not been completed the following surrogate would be surrogate decision maker per [place] surrogate decision making law. (Only good for 180 days) Any patient receiving care in [place] must abide by [place] law. The hierarchy for surrogate decision making is: (a) Patient???s spouse or civil union partner unless there is a divorce proceeding, separation agreement, or restraining order limiting that person???s relationship with the patient. (b) Any adult son or daughter of the patient. (c) Either parent of the patient. (d) Any adult brother or sister of the patient. (e) Any adult grandchild of the patient. (f) Any grandparent of the patient. (g) Any adult aunt, uncle, niece, or nephew of the patient. (h) A close friend of the patient. (i) The agent with financial power of insurance defense attorney or a conservator appointed in accordance with RSA 464-A. (j) The guardian of the patient???s estate. Advance Care Planning: Attempt Cardiopulmonary Resuscitation - Inpatient <no information> -Advanced Directive: No, need to discuss (sister Rosie Pop) Current Coping/Education/Information Needs: Have trouble coping as he is also withdrawaling from alcohol currently as well Current Functional Ability: Assistive Equipment Functional Status Prior to Admission: Assistive Equipment Prior ADLs & IADLs: Independent with all ADLs & IADLs Home Environment: Others in the home: roomate(s) (Pt lives with two roommates). Current Living Arrangements: home/apartment/condo (Doublewide). Accessibility Concerns:one level doublewide mobile home. In the last 12 months, was there a time when you were not able to pay the mortgage or rent on time?: No In the past 12 months, how many times have you moved where you were living?: 1 At any time in the past 12 months, were you homeless or living in a mcfp (including now)?: No In the past 12 months has the [employer], oil, or water [employer] threatened to shut off services in your home?: No Within the past 12 months, you worried that your food would run out before you got the money to buymore.: Never true Within the past 12 months, the food you bought just didn't last and you didn't have money to get more.: Never true Resource / Environmental Concerns: Resource/Environmental Concerns: none In the past 12 months, has lack of transportation kept you from medical appointments or from getting medications?: No In the past 12 months, has lack of transportation kept you from meetings, work, or from getting things needed for daily living?: No Current DME: oxygen, walker - standard Home Address listed as: [address] [facility] [address] Social & Family Supports: All names listed below confirmed with patient as current and correct Extended Emergency Contact Information Primary Emergency Contact: ROSIE POP Mobile Relation: Sibling Current Care Provided by: Provides Primary Care For: no one Caregiver if needed: Quality of Family relationships: involved Community Resources being provided currently: outpatient substance abuse treatment (Pt is currentlyreceived MAT Program - Methadone) Behavioral Health History: Anxiety and has panic attacks Substance Use/Abuse listed: Social History Tobacco Use Smoking Status Some Days Current packs/day: 0.25 Average packs/day: 0.3 packs/day for 30.0 years (7.5 ttl pk-yrs) Types: Cigarettes Smokeless Tobacco Never Tobacco Comments 1 pack last about 10 days; previously was 2 ppd- one pack lasts a month In the past year have you used an illegal drug or used a prescription medication for non-medical reasons?: No 0 No problems reported 1-2 Low level 3-5 Moderate level 6-8 Substantial level 9- 10 Severe level In the past year have you had 5 or more drinks a day containing alcohol?: No 0 to 7 points: Low risk 8 to 15 points: Medium risk 16 to 19 points: High risk 20 to 40 points: Addiction likely Other Pertinent/Service Specific Information: Pt has anxiety and has bad panic attacks. Currentlystates he is withdrawling from alcohol, he normally drinks 2 fifths per day. Pt is in a Medication Assistance Treatment Program taking Methadone Health/Prescription Coverage: Primary Insurance: MEDICARE Payor: MEDICARE / Plan: MEDICARE PART A & B / Product Type: *No Product type* / Secondary Insurance: MEDICAID [place] ONLY if patient has Medicare A&B - Does this patient have secondary insurance?: Yes ; Prescription Coverage: Yes Preferred Pharmacy: [id number] - [place], [place] - [address] [facility] [address] [place] [address] [place] Status: Patient is a : No Primary Care Provider listed: Travis Castaneda MD [phone] Patient/Caregiver Goals of Treatment: return home Potential Needs for Transition of Care: substance abuse services, home health care Agency Referrals: tbd Transportation: no concerns Transportation Anticipated: agency (RCT) Concerns to be Addressed: Suboxone / Methadone management, mental health, other (see comments) (Pt has COPD) Assessment: Patient is admitted to Medicine service for COPD Exacerbation Plan: Return home A member of the Care Management team will continue to monitor progress, follow for continuity of care and assist with transition of care planning. EDD Perez * Plan of Care - Rae Burciaga RN - 09/20/2023 3:15 AM EDT OUTCOME EVALUATION NOTE: OUTCOME SUMMARY: Patient admitted from ED for COPD exacerbation. Neb treatments admin Q4hrs. Pt verbalized c/o increased chronic back pain. Requesting Toradol. One time dose received and administered. PRN Ativan administered for anxiety. 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 Limited ROM noted on Lt hand from a previous injury. Evening snacks provided. Methadone ordered per provider; AM dose administered to patient. Patient cooperative with care and resting between care. Will continue to monitor and helppatient reach d/c goals. PLAN MOVING FORWARD: Pain control Mobilize D/c planning INDIVIDUALIZED FALL PREVENTION: Patient is currently a high risk to Fall. Patient educated on bed/chair alarm, demonstrates proper use of call gilmore and verbalizes understanding of fall preventions implemented. Patient-specific fall risk factors per assessment: [current deficits]: Pain, Medications, Hospital Environment. Assistance [level of assistance required for transfers and ambulation]: 1x assist w/ prosthesis. Supervision [direct monitoring required during toileting and ADLs]: Eyes on per unit protocol when OOB/with ADL's Surveillance [continuous indirect monitoring]: Levi Massey [place], Nurse Knowledge Exchange * ED Triage - Roel Salcedo RN - 09/19/2023 3:12 PM EDT HPI (Adult) Stated Reason for Visit: pt c/o sob with hx of copd. Pt is been on prednisone for worsing SOB. Pt found to by hypoxic in clinic and code peggy called. danni phan in clinic given History Obtained From: patient documented in this encounter Plan of Treatment Upcoming Encounters Date Type Department Care Team (Late st Contact Info) Description 03/18/2024 8:30 AM EST [place] [address] 03/18/2024 9:30 AM EST [place] [phone] [facility] [place] [address] documented as of this encounter Procedures Procedure Name Priority Date/Time Associated Diagnosis Comments EKG 12-LEAD STAT 09/24/2023 1:35 AM EDT At risk for prolonged QT interval syndrome HEMOGRAM Routine 09/23/2023 8:55 AM EDT PHOSPHORUS Routine 09/23/2023 8:55 AM EDT MAGNESIUM Routine 09/23/2023 8:55 AM EDT BASIC METABOLIC PANEL Routine 09/23/2023 8:55 AM EDT HEMOGRAM Routine 09/22/2023 9:06 AM EDT PHOSPHORUS Routine 09/22/2023 9:06 AM EDT MAGNESIUM Routine 09/22/2023 9:06 AM EDT BASIC METABOLIC PANEL Routine 09/22/2023 9:06 AM EDT EKG 12-LEAD Routine 09/20/2023 7:01 AM EDT Opiate withdrawal TSH CASCADE Routine 09/20/2023 4:10 AM EDT CRP, ACUTE INFLAMMATION Routine 09/20/2023 4:10 AM EDT HEMOGRAM Routine 09/20/2023 4:10 AM EDT DIFFERENTIAL, AUTOMATED Routine 09/20/2023 4:10 AM EDT CBC (WITH DIFF) Routine 09/20/2023 4:10 AM EDT T4, FREE Routine 09/20/2023 4:10 AM EDT MAGNESIUM Routine 09/20/2023 4:10 AM EDT BASIC METABOLIC PANEL Routine 09/20/2023 4:10 AM EDT EKG 12-LEAD STAT 09/19/2023 5:32 PM EDT BLOOD GAS VENOUS POC Routine 09/19/2023 4:10 PM EDT HC TROPONIN T STAT 09/19/2023 4:00 PM EDT HC TROPONIN T STAT 09/19/2023 4:00 PM EDT HEMOGRAM STAT 09/19/2023 4:00 PM EDT DIFFERENTIAL, AUTOMATED STAT 09/19/2023 4:00 PM EDT GOLD TUBE HOLD STAT 09/19/2023 4:00 PM EDT BLUE TUBE HOLD STAT 09/19/2023 4:00 PM EDT CBC (WITH DIFF) STAT 09/19/2023 4:00 PM EDT PRO-BRAIN NATRIURETIC PEPTIDE STAT 09/19/2023 4:00 PM EDT MAGNESIUM STAT 09/19/2023 4:00 PM EDT COMPREHENSIVE METABOLIC PANEL STAT 09/19/2023 4:00 PM EDT RESPIRATORY PANEL PCR STAT 09/19/2023 3:42 PM EDT documented in this encounter Results * EKG 12 Lead (09/24/2023 1:35 AM EDT) Ventricular rate 94 BPM MUSE SYSTEM Atrial Rate 94 BPM MUSE SYSTEM P-R Interval 130 ms MUSE SYSTEM QRS Duration 88 ms MUSE SYSTEM Q-T Interval 364 ms MUSE SYSTEM QTC Calculated (Bezet) 455 ms MUSE SYSTEM Calculated P [place] 59 degrees MUSE SYSTEM Calculated R [place] 94 degrees MUSE SYSTEM Calculated T [place] 65 degrees MUSE SYSTEM INTERPRETATION Sinus rhythm with Premature atrial complexes Rightward axis Borderline ECG When compared with ECG of 20-SEP-2023 07:01, Premature atrial complexes are now Present Confirmed by Sudheer Daly ([id number]) on 09/24/2023 12:11:56 PM MUSE SYSTEM 09/24/2023 1:35 AM EDT 09/24/2023 12:11 PM EDT Evans Weston MD ECG ORDER CJ Performing Organization Address [facility] Co de Phone Number MUSE SYSTEM * Phosphorus (09/23/2023 8:55 AM EDT) Pathologist [facility] Phosphorus 3.0 2.5 - 4.5 mg/dL [facility] Blood 09/23/2023 8:55 AM EDT 09/23/2023 9:03 AM EDT Narrative Resulting Agency Comment Spec In Lab Lucien Farooq MD CHEMISTRY ORDERABLES [facility] [place] [address] * Magnesium (09/23/2023 8:55 AM EDT) Pathologist [facility] Magnesium 0.92 0.69 - 1.07 mmol/L [facility] Blood 09/23/2023 8:55 AM EDT 09/23/2023 9:03 AM EDT Narrative Resulting Agency Comment Spec In Lab Lucien Farooq MD CHEMISTRY ORDERABLES [facility] [place] [address] * (ABNORMAL) Basic Metabolic Panel (non-fasting) (09/23/2023 8:55 AM EDT) Glucose 94 65 - 199 mg/dL [facility] Comment:Diabetes: >=200 mg/d L plus symptoms Blood Urea Nitrogen 15 10 - 20 mg/dL [facility] Creatinine 0.62(L) 0.80 - 1.50 mg/dL [facility] Sodium 140 135 - 145 mmol/L [facility] Potassium 3.5 3.5 - 5.0 mmol/L [facility] Comment: Please note: ??Patients with WBC >100,000 may have falsely elevated Potassium levels. ??For accurate Potassium quantification in these patients send serum separator tube (gold top) for subsequent determinations. ??Contact the Clinical Chemistry Laboratory if there are any questions. Chloride 103 98 - 107 mmol/L [facility] Carbon Dioxide 28 22 - 31 mmol/L [facility] Anion Gap 9 5 - 15 mmol/L [facility] Calcium 8.1(L) 8.5 - 10.5 mg/dL [facility] Est Glomerular Filtration Rate 116 >=60 mL/min/1. 73 m?? [facility] Comment: This patient's estimated GFR was [...] In Lab Lucien Farooq MD CHEMISTRY ORDERABLES Performing Organization Address City/State/[facility] Co de Phone Number [facility] [place] [address] * (ABNORMAL) Hemogram (09/23/2023 8:55 AM EDT) White Blood Cell 8.4 4.0 - 9.5 x10(3)/[facility] Red Blood Cell 5.07 4.58 - 5.54 x10(6)/[facility] Hemoglobin 15.8 13.7 - 16.5 g/dL [facility] Hematocrit 48.5 40.5 - 48.5 % [facility] Mean Cell Volume 95.7(H) 82.9 - 93.1 fL [facility] Mean Cell Hemoglobin 31.2 27.5 - 32.1 pg [facility] Mean Cell Hemoglobin Concentration 32.6 32.0 - 35.7 g/dL [facility] Platelet 242 145 - 357 x10(3)/[facility] RDW Standard Deviation 55.8(H) 36.0 - 45.0 [facility] RDW coefficient of variation 15.6(H) 11.4 - 13.8 % [facility] Mean Platelet Volume 10.5 7.6 - 12.9 [facility] NRBC% auto 0.0 % [facility] NRBC Absolute 0.000 0.000 - 0.000 x10(3)/ L [facility] Blood 09/23/2023 8:55 AM EDT 09/23/2023 9:03 AM EDT Narrative Resulting Agency Comment Spec In Lab Lucien Farooq MD HEMATOLOGY ORDERABLE S [facility] [place] [address] * Phosphorus (09/22/2023 9:06 AM EDT) Phosphorus 3.0 2.5 - 4.5 mg/dL [facility] Blood 09/22/2023 9:06 AM EDT 09/22/2023 9:12 AM EDT Narrative Resulting Agency Comment Spec In Lab Lucien Farooq MD CHEMISTRY ORDERABLES Performing Organization Address [facility] Co de Phone Number [facility] [place] [address] * Magnesium (09/22/2023 9:06 AM EDT) Magnesium 0.97 0.69 - 1.07 mmol/L [facility] Blood 09/22/2023 9:06 AM EDT 09/22/2023 9:12 AM EDT Narrative Resulting Agency Comment Spec In Lab Lucien Farooq MD CHEMISTRY ORDERABLES Performing Organization Address [facility] Co de Phone Number [facility] [place] [address] * (ABNORMAL) Basic Metabolic Panel (non-fasting) (09/22/2023 9:06 AM EDT) Glucose 80 65 - 199 mg/dL [facility] Comment:Diabetes: >=200 mg/d L plus symptoms Blood Urea Nitrogen 19 10 - 20 mg/dL [facility] Creatinine 0.63(L) 0.80 - 1.50 mg/dL [facility] Sodium 139 135 - 145 mmol/L [facility] Potassium 4.1 3.5 - 5.0 mmol/L [facility] Comment: Please note: ??Patients with WBC >100,000 may have falsely elevated Potassium levels. ??For accurate Potassium quantification in these patients send serum separator tube (gold top) for subsequent determinations. ??Contact the Clinical Chemistry Laboratory if there are any questions. Chloride 103 98 - 107 mmol/L [facility] Carbon Dioxide 29 22 - 31 mmol/L [facility] Anion Gap 7 5 - 15 mmol/L [facility] Calcium 8.3(L) 8.5 - 10.5 mg/dL [facility] Est Glomerular Filtration Rate 116 >=60 mL/min/1. 73 m?? [facility] Comment: This patient's estimated GFR was [...] and symptoms in addition to eGFR. Blood 09/22/2023 9:06 AM EDT 09/22/2023 9:12 AM EDT Narrative Resulting Agency Comment Spec In Lab Lucien Farooq MD CHEMISTRY ORDERABLES [facility] [place] [address] * (ABNORMAL) Hemogram (09/22/2023 9:06 AM EDT) White Blood Cell 8.8 4.0 - 9.5 x10(3)/mc L [facility] Red Blood Cell 4.98 4.58 - 5.54 x10(6)/mc L [facility] Hemoglobin 15.6 13.7 - 16.5 g/dL [facility] Hematocrit 49.1(H) 40.5 - 48.5 % [facility] Mean Cell Volume 98.6(H) 82.9 - 93.1 fL [facility] Mean Cell Hemoglobin 31.3 27.5 - 32.1 pg [facility] Mean Cell Hemoglobin Concentration 31.8(L) 32.0 - 35.7 g/dL [facility] Platelet 215 145 - 357 x10(3)/mc L [facility] RDW Standard Deviation 57.7(H) 36.0 - 45.0 [facility] RDW coefficient of variation 15.8(H) 11.4 - 13.8 % [facility] Mean Platelet Volume 10.1 7.6 - 12.9 [facility] NRBC% auto 0.0 % [facility] NRBC Absolute 0.000 0.000 - 0.000 x10(3)/mc L [facility] Blood 09/22/2023 9:06 AM EDT 09/22/2023 9:12 AM EDT Narrative Resulting Agency Comment Spec In Lab Lucien Farooq MD HEMATOLOGY ORDERABLE S [facility] [place] [address] * EKG 12 Lead (09/20/2023 7:01 AM EDT) Ventricular rate 72 BPM MUSE SYSTEM Atrial Rate 72 BPM MUSE SYSTEM P-R Interval 120 ms MUSE SYSTEM QRS Duration 90 ms MUSE SYSTEM Q-T Interval 408 ms MUSE SYSTEM QTC Calculated (Bezet) 446 ms MUSE SYSTEM Calculated P [place] 48 degrees MUSE SYSTEM Calculated R [place] 90 degrees MUSE SYSTEM Calculated T [place] 71 degrees MUSE SYSTEM INTERPRETATION Normal sinus rhythm Rightward axis Borderline ECG When compared with ECG of 19-SEP-2023 17:32, No significant change was found I personally reviewed the tracing and edited the fellows interpretation Confirmed by fellow MD Matute Andrew [id number]) on 09/20/2023 8:47:32 AM Confirmed by MD Montesinos Jon ([id number]) on 09/20/2023 12:47:32 PM MUSE SYSTEM 09/20/2023 7:01 AM EDT 09/20/2023 12:47 PM EDT Mono Velasco MD ECG ORDERABLES Performing Organization Address City/[facility]/ZIP Co de Phone Number MUSE SYSTEM * (ABNORMAL) T4, free (09/20/2023 4:10 AM EDT) Free T4 0.78(L) 0.93 - 1.70 ng/dL [facility] Comment: Reference Interval (ng/dL): Females: ??First Trimester: 0.97-1.68 ??Second Trimester: 0.77-1.51 ??Third Trimester: 0.77-1.49 Blood 09/20/2023 4:10 AM EDT 09/20/2023 4:31 AM EDT Narrative Resulting Agency Comment Spec In Lab Mono Velasco MD CHEMISTRY ORDERABLE S Performing Organization Address City/[facility]/ZIP Co de Phone Number [facility] [place] [address] * (ABNORMAL) Differential, Automated (09/20/2023 4:10 AM EDT) Neutrophil % 91.3 % [facility] Neutrophil Absolute 6.71(H) 1.70 - 6.10 x10(3)/mc L [facility] Lymph % 5.0 % [facility] Lymphocytes Abs 0.4(L) 0.9 - 3.2 x10(3)/mc L [facility] Monocyte % 3.3 % [facility] Monocyte Abs 0.2(L) 0.3 - 0.9 x10(3)/mc L [facility] Eos % 0.0 % [facility] Eosinophils Abs 0.0 0.0 - 0.4 x10(3)/mc L [facility] Basophil % 0.1 % [facility] Baso Absolute 0.0 0.0 - 0.1 x10(3)/ L [facility] Immature Gran % 0.30 % [facility] Comment: Immature granulocytes(IG's)percentage and absolute count will include metamyelocytes, myelocytes, and promyelocytes. Blood smears from CBCs yielding IG's will be scanned manually for concordance. If this scan disagrees with the automated IG or if promyelocytes are noted, a manual differential will be performed. Immature Gran Absolute 0.02 0.00 - 0.04 x10(3)/ L [facility] Blood 09/20/2023 4:10 AM EDT 09/20/2023 4:31 AM EDT Narrative Resulting Agency Comment Spec In Lab Mono Velasco MD HEMATOLOGY ORDERABL ES [facility] [place] [address] * (ABNORMAL) Hemogram (09/20/2023 4:10 AM EDT) White Blood Cell 7.4 4.0 - 9.5 x10(3)/ L [facility] Red Blood Cell 5.26 4.58 - 5.54 x10(6)/mc L [facility] Hemoglobin 16.3 13.7 - 16.5 g/dL [facility] Hematocrit 50.4(H) 40.5 - 48.5 % [facility] Mean Cell Volume 95.8(H) 82.9 - 93.1 fL [facility] Mean Cell Hemoglobin 31.0 27.5 - 32.1 pg [facility] Mean Cell Hemoglobin Concentration 32.3 32.0 - 35.7 g/dL [facility] Platelet 236 145 - 357 x10(3)/ L [facility] RDW Standard Deviation 55.3(H) 36.0 - 45.0 fL [facility] RDW coefficient of variation 15.5(H) 11.4 - 13.8 % [facility] Mean Platelet Volume 10.7 7.6 - 12.9 fL [facility] NRBC% auto 0.0 % [facility] NRBC Absolute 0.000 0.000 - 0.000 x10(3)/mc L [facility] Blood 09/20/2023 4:10 AM EDT 09/20/2023 4:31 AM EDT Narrative Resulting Agency Comment Spec In Lab Mono Velasco MD HEMATOLOGY ORDERABL ES Performing Organization Address City/[facility]/ZIP Co de Phone Number [facility] [place] [address] * (ABNORMAL) TSH [place] (09/20/2023 4:10 AM EDT) Thyroid Stimulating Hormone 0.12(L) 0.27 - 4.20 mcIU/mL [facility] Comment: Reference Interval (mcIU/mL): Females: ??First Trimester: 0.23-3.88 ??Second Trimester: 0.22-3.90 ??Third Trimester: 0.44-4.66 Blood 09/20/2023 4:10 AM EDT 09/20/2023 4:31 AM EDT Narrative Resulting Agency Comment Spec In Lab Mono Velasco MD CHEMISTRY ORDERABLE S Performing Organization Address City/[facility]/ZIP Co de Phone Number [facility] [place] [address] * CRP, acute inflammation (09/20/2023 4:10 AM EDT) C-Reactive Protein 3.5 <=4.9 mg/L [facility] Blood 09/20/2023 4:10 AM EDT 09/20/2023 4:31 AM EDT Narrative Resulting Agency Comment Spec In Lab Mono Velasco MD CHEMISTRY ORDERABLE S [facility] [place] [address] * Magnesium (09/20/2023 4:10 AM EDT) Magnesium 1.02 0.69 - 1.07 mmol/L [facility] Blood 09/20/2023 4:10 AM EDT 09/20/2023 4:31 AM EDT Narrative Resulting Agency Comment Spec In Lab Mono Velasco MD CHEMISTRY ORDERABLE S Performing Organization Address City/[facility]/ZIP Co de Phone Number [facility] [place] [address] * (ABNORMAL) Basic Metabolic Panel (non-fasting) (09/20/2023 4:10 AM EDT) Glucose 207(H) 65 - 199 mg/dL [facility] Comment:Diabetes: >=200 mg/d L plus symptoms Blood Urea Nitrogen 18 10 - 20 mg/dL [facility] Comment:result rechecked-[place] Creatinine 0.65(L) 0.80 - 1.50 mg/dL [facility] Sodium 137 135 - 145 mmol/L [facility] Potassium 4.0 3.5 - 5.0 mmol/L [facility] Comment: Please note: ??Patients with WBC >100,000 may have falsely elevated Potassium levels. ??For accurate Potassium quantification in these patients send serum separator tube (gold top) for subsequent determinations. ??Contact the Clinical Chemistry Laboratory if there are any questions. Chloride 100 98 - 107 mmol/L [facility] Carbon Dioxide 28 22 - 31 mmol/L [facility] Anion Gap 9 5 - 15 mmol/L [facility] Calcium 8.5 8.5 - 10.5 mg/dL [facility] Est Glomerular Filtration Rate 115 >=60 mL/min/1. 73 m?? [facility] Comment: This patient's estimated GFR was [...] and symptoms in addition to eGFR. Blood 09/20/2023 4:10 AM EDT 09/20/2023 4:31 AM EDT Narrative Resulting Agency Comment Spec In Lab Mono Velasco MD CHEMISTRY ORDERABLE S Performing Organization Address [facility] Co de Phone Number [facility] [place] [address] * EKG 12 Lead (09/19/2023 5:32 PM EDT) Ventricular rate 71 BPM MUSE SYSTEM Atrial Rate 71 BPM MUSE SYSTEM P-R Interval 128 ms MUSE SYSTEM QRS Duration 84 ms MUSE SYSTEM Q-T Interval 408 ms MUSE SYSTEM QTC Calculated (Bezet) 443 ms MUSE SYSTEM Calculated P [place] 52 degrees MUSE SYSTEM Calculated R [place] 94 degrees MUSE SYSTEM Calculated T [place] 76 degrees MUSE SYSTEM INTERPRETATION Normal sinus rhythm Rightward axis Borderline ECG When compared with ECG of 15-DEC-2022 12:25, No significant change was found Confirmed by MD Jaguar, Eliud ([id number]) on 09/20/2023 7:19:12 AM MUSE SYSTEM 09/19/2023 5:32 PM EDT 09/20/2023 7:19 AM EDT Aden Stakrey MD ECG ORDERABLES Performing Organization Address [facility] Co de Phone Number MUSE SYSTEM * (ABNORMAL) BLOOD GAS 2 VENOUS (09/19/2023 4:10 PM EDT) pH, Venous 7.37 7.32 - 7.42 [facility] PCO2, Venous 59(H) 41 - 51 mmHg [facility] PO2, Venous 45(H) 25 - 40 mmHg [facility] Bicarbonate, Venous 33.3 mmol/L [facility] Base Excess, Venous 8.0 mmol/L [facility] Hgb Blood Gas 17.4(H) 13.7 - 16.5 g/dL [facility] Oxyhemoglobin, Venous 75.5 % [facility] Carboxyhemoglob in, Venous 4.5 % [facility] Comment: Nonsmokers: 0.5-1.5% COHB Smokers: Variable, but usually less than 10% Toxic: 20-30% COHB Lethal: Greater than 60% COHB Methemoglobin, Venous 0.3 <=1.5 % [facility] Na Whole Blood 142 135 - 145 mmol/L [facility] K Whole Blood 4.2 3.5 - 5.0 mmol/L [facility] Comment: Please note: Patients with WBC >100,000 may have falsely elevated Potassium levels. Contact the Clinical Chemistry Laboratory if there are any questions. ICa Whole Blood 1.16 1.15 - 1.33 mmol/L [facility] Comment: Note: ??Total bilirubin higher than 20 mg/dL may lead to falsely low ionized calcium. CL Whole Blood 98 98 - 107 mmol/L [facility] Gluc Whole Bld 122 65 - 199 mg/dL [facility] Comment:Diabetes: >=200 mg/d L plus symptoms Lactate WB 1.5 0.5 - 2.2 mmol/L [facility] Blood Gas Source Venous [facility] Blood 09/19/2023 4:10 PM EDT 09/19/2023 4:10 PM EDT Aden Starkey MD POINT OF CARE TEST O RDERABLES [facility] [place] [address] * Gold Tube HOLD (09/19/2023 4:00 PM EDT) Gold Hold Sample in lab. [facility] Blood Venous Draw / Unknown 09/19/2023 4:00 PM EDT 09/19/2023 4:16 PM EDT Good Oropeza MD CHEMISTRY ORDERABLES Performing Organization Address City/[facility]/ZIP Co de Phone Number [facility] [place] [address] * Blue Tube HOLD (09/19/2023 4:00 PM EDT) [facility] Blue Hold Sample in lab. [facility] Blood Venous Draw / Unknown 09/19/2023 4:00 PM EDT 09/19/2023 4:16 PM EDT Good Oropeza MD HEMATOLOGY ORDERABLE S Performing Organization Address City/[facility] Co de Phone Number [facility] [place] [address] * (ABNORMAL) Differential, Automated (09/19/2023 4:00 PM EDT) [facility] Neutrophil % 85.2 % [facility] Neutrophil Absolute 8.07(H) 1.70 - 6.10 x10(3)/mc L [facility] Lymph % 8.2 % [facility] Lymphocytes Abs 0.8(L) 0.9 - 3.2 x10(3)/mc L [facility] Monocyte % 5.4 % [facility] Monocyte Abs 0.5 0.3 - 0.9 x10(3)/mc L [facility] Eos % 0.3 % [facility] Eosinophils Abs 0.0 0.0 - 0.4 x10(3)/mc L [facility] Basophil % 0.4 % [facility] Baso Absolute 0.0 0.0 - 0.1 x10(3)/mc L [facility] Immature Gran % 0.50 % [facility] Comment: Immature granulocytes(IG's)percentage and absolute count will include metamyelocytes, myelocytes, and promyelocytes. Blood smears from CBCs yielding IG's will be scanned manually for concordance. If this scan disagrees with the automated IG or if promyelocytes are noted, a manual differential will be performed. Immature Gran Absolute 0.05(H) 0.00 - 0.04 x10(3)/ L [facility] Blood 09/19/2023 4:00 PM EDT 09/19/2023 4:15 PM EDT Narrative Resulting Agency Comment Spec In Lab Good Oropeza MD HEMATOLOGY ORDERABLE S [facility] [place] [address] * (ABNORMAL) Hemogram (09/19/2023 4:00 PM EDT) White Blood Cell 9.5 4.0 - 9.5 x10(3)/[facility] Red Blood Cell 5.20 4.58 - 5.54 x10(6)/ L [facility] Hemoglobin 16.2 13.7 - 16.5 g/dL [facility] Hematocrit 51.1(H) 40.5 - 48.5 % [facility] Mean Cell Volume 98.3(H) 82.9 - 93.1 fL [facility] Mean Cell Hemoglobin 31.2 27.5 - 32.1 pg [facility] Mean Cell Hemoglobin Concentration 31.7(L) 32.0 - 35.7 g/dL [facility] Platelet 224 145 - 357 x10(3)/ L [facility] RDW Standard Deviation 58.0(H) 36.0 - 45.0 fL [facility] RDW coefficient of variation 15.9(H) 11.4 - 13.8 % [facility] Mean Platelet Volume 10.1 7.6 - 12.9 fL [facility] NRBC% auto 0.0 % [facility] NRBC Absolute 0.000 0.000 - 0.000 x10(3)/mc L [facility] Blood 09/19/2023 4:00 PM EDT 09/19/2023 4:15 PM EDT Narrative Resulting Agency Comment Spec In Lab Good Oropeza MD HEMATOLOGY ORDERABLE S [facility] [place] [address] * Magnesium (09/19/2023 4:00 PM EDT) [facility] Magnesium 0.99 0.69 - 1.07 mmol/L [facility] Blood 09/19/2023 4:00 PM EDT 09/19/2023 4:15 PM EDT Narrative Resulting Agency Comment Spec In Lab Aden Starkey MD CHEMISTRY ORDERABLES Performing Organization Address City/[facility]/ZIP Co de Phone Number [facility] [place] [address] * pro-Brain Natriuretic Peptide (09/19/2023 4:00 PM EDT) [facility] NT-proBNP 118 <=124 pg/mL [facility] Blood 09/19/2023 4:00 PM EDT 09/19/2023 4:15 PM EDT Narrative Resulting Agency Comment Spec In Lab Aden Starkey MD CHEMISTRY ORDERABLES Performing Organization Address City/[facility]/ZIP Co de Phone Number [facility] [place] [address] * Troponin (09/19/2023 4:00 PM EDT) [facility] Troponin-T, High Sensitivity 10 <=22 ng/L [facility] Comment: This patient's troponin T concentration was determined using the Martina 5th Generation troponin T assay. The 99th percentile for Troponin T for this test is 14 ng/L for females, and 22 ng/L for males. According to the fourth universal definition of myocardial infarction, the term acute myocardial infarction should be used when there is acute myocardial injury with clinical evidence of acute myocardial ischemia and with detection of a rise and/or fall of cardiac troponin values with at least one value above the 99th percentile and at least one of the following: - Symptoms of myocardial ischemia; - New ischemic ECG changes; - Development of pathological Q waves; - Imaging evidence of new loss of viable myocardium or new regional wall motion abnormality in a pattern consistent with an ischemic etiology; - Identification of a coronary thrombus by angiography or autopsy (not for type 2 or 3 MIs) Serial measurement of troponin and the change in troponin concentration over time (delta) is crucial for the diagnosis of acute myocardial infarction. Guidance on the interpretation of the new 5th Generation Troponin T values and the delta troponin value can be found in the [facility] Test Catalog Troponin - [facility] Test Catalog Reference: Fourth [place] Definition of Myocardial Infarction. Journal of the [place] [employer] 2018;72:3571-8477 Blood 09/19/2023 4:00 PM EDT 09/19/2023 5:03 PM EDT Narrative Resulting Agency Comment Spec In Lab Aden Starkey MD CHEMISTRY ORDERABLES [facility] [place] [address] * Troponin (09/19/2023 4:00 PM EDT) Troponin-T, High Sensitivity 11 <=22 ng/L [facility] Comment: This patient's troponin T concentration was determined using the Martina 5th Generation troponin T assay. The 99th percentile for Troponin T for this test is 14 ng/L for females, and 22 ng/L for males. According to the fourth universal definition of myocardial infarction, the term acute myocardial infarction should be used when there is acute myocardial injury with clinical evidence of acute myocardial ischemia and with detection of a rise and/or fall of cardiac troponin values with at least one value above the 99th percentile and at least one of the following: - Symptoms of myocardial ischemia; - New ischemic ECG changes; - Development of pathological Q waves; - Imaging evidence of new loss of viable myocardium or new regional wall motion abnormality in a pattern consistent with an ischemic etiology; - Identification of a coronary thrombus by angiography or autopsy (not for type 2 or 3 MIs) Serial measurement of troponin and the change in troponin concentration over time (delta) is crucial for the diagnosis of acute myocardial infarction. Guidance on the interpretation of the new 5th Generation Troponin T values and the delta troponin value can be found in the [facility] Test Catalog Troponin - [facility] Test Catalog Reference: Fourth [place] Definition of Myocardial Infarction. Journal of the [place] [employer] 2018;72:3379-5328 Blood 09/19/2023 4:00 PM EDT 09/19/2023 4:15 PM EDT Narrative Resulting Agency Comment Spec In Lab Aden Starkey MD CHEMISTRY ORDERABLES [facility] [place] [address] * (ABNORMAL) Comprehensive metabolic panel (non-fasting) (09/19/2023 4:00 PM EDT) Glucose 121 65 - 199 mg/dL [facility] Comment:Diabetes: >=200 mg/d L plus symptoms Blood Urea Nitrogen 10 10 - 20 mg/dL [facility] Creatinine 0.59(L) 0.80 - 1.50 mg/dL [facility] Sodium 139 135 - 145 mmol/L [facility] Potassium 4.6 3.5 - 5.0 mmol/L [facility] Comment: Please note: ??Patients with WBC >100,000 may have falsely elevated Potassium levels. ??For accurate Potassium quantification in these patients send serum separator tube (gold top) for subsequent determinations. ??Contact the Clinical Chemistry Laboratory if there are any questions. Chloride 100 98 - 107 mmol/L [facility] Carbon Dioxide 30 22 - 31 mmol/L [facility] Anion Gap 9 5 - 15 mmol/L [facility] Calcium 8.9 8.5 - 10.5 mg/dL [facility] Protein, Total 7.8 6.1 - 8.0 g/dL [facility] Albumin 4.1 3.2 - 5.2 g/dL [facility] Aspartate Aminotransferase 20 0 - 39 unit/L [facility] Alanine Aminotransferase 16 0 - 55 unit/L [facility] Alkaline Phosphatase 75 40 - 130 unit/L [facility] Bilirubin, Total 0.4 0.2 - 1.3 mg/dL [facility] Est Glomerular Filtration Rate 118 >=60 mL/min/1. 73 m?? [facility] Comment: This patient's estimated GFR was [...] and symptoms in addition to eGFR. Blood 09/19/2023 4:00 PM EDT 09/19/2023 4:15 PM EDT Narrative Resulting Agency Comment Spec In Lab Aden Starkey MD CHEMISTRY ORDERABLES Performing Organization Address City/State/[facility] Co de Phone Number [facility] [place] [address] * Respiratory Panel PCR (09/19/2023 3:42 PM EDT) Respiratory Panel Source [employer] [facility] Respiratory Panel PCR Negative Negative [facility] Comment: Respiratory Panels are performed on the [employer], using multiplexed PCR nucleic acid detection. ??Negative results do not preclude respiratory infection and should not be used as the sole basis for diagnosis, treatment or other management decisions. Adenovirus Not Detected Not Detected [facility] LABORATORY Coronavirus HKU1 Not Detected Not Detected [facility] Coronavirus NL63 Not Detected Not Detected [facility] Coronavirus 229E Not Detected Not Detected [facility] Coronavirus OC43 Not Detected Not Detected [facility] SARS-CoV-2 Not Detected Not Detected [facility] Comment: Testing for SARS-CoV-2 (Severe acute respiratory syndrome coronavirus 2) to aid in the diagnosis of COVID-19 is performed using the BioFire Respiratory Panel 2.1 ([employer]) as authorized by the FDA issued Emergency Use Authorization (EUA). This panel also tests for multiple other viral and bacterial pathogens. This assay is intended for In-vitro Diagnostic (IVD) use with nasopharyngeal swabs in viral transport media. The assay is performed based on the instructions for use and additional guidance provided by the FDA. Testing is performed in laboratories within the [facility], each of which is certified under the Clinical Laboratory Improvement Amendments of 1988 (CLIA), 42 U.S.C. section 263a, to perform high-complexity tests. Assay performance has been verified according to clinical laboratory regulatory requirements. The test result for SARS-CoV-2 provided above should be interpreted in combination with the clinical observation, patient history and epidemiological information. For testing of asymptomatic individuals, assay performance characteristics and clinical utility have not been evaluated. ??A result of Not Detected indicates that the viral RNA target is not present but does not preclude SARS-CoV-2 infection. False negative results may occur if a specimen is improperly collected, transported or handled; if amplification inhibitors are present; or if inadequate numbers of viral particles are present in the specimen. When a diagnostic test is negative, the possibility of a false negative result should be considered in the context of a patient's recent exposures and the presence of clinical signs and symptoms consistent with COVID-19. A result of Detected suggests a current or recent infection. Positive and negative predictive values for this test are dependent on disease prevalence. A result of Invalid indicates the inability to conclusively determine the presence or absence of SARS-CoV-2 RNA in the sample which can be due to a variety of factors. ??Collection of a new sample for repeat testing is recommended in the case of an invalid result. CDC COVID-19 criteria for testing on human specimens and clinical management guidance information are available at the CDC Coronavirus Disease 2019 (COVID-19) webpage under Information for Healthcare Professionals (https://www.cdc.gov/coronavirus/2019-ncov/hcp/index.html). Additional information about this and other EUA tests can be found in provider and patient fact sheets at the following FDA website: https://www.fda.gov/medical-devices/gxlyvendmym-dezgunj-3069-fkosk-23-gvqctnfwi- use-a trxsreiueqhae-ebczbbm-vajzxye/hvbpo-lyyhvuwrxhd-gllp Human Metapneumovirus Not Detected Not Detected [facility] Human Rhinovirus/Enterov irus Not Detected Not Detected [facility] Influenza A Not Detected Not Detected [facility] Influenza B Not Detected Not Detected [facility] Parainfluenza 1 Not Detected Not Detected [facility] Parainfluenza 2 Not Detected Not Detected [facility] Parainfluenza 3 Not Detected Not Detected [facility] Parainfluenza 4 Not Detected Not Detected [facility] Respiratory Syncytial Virus Not Detected Not Detected [facility] Chlamydophila pneumoniae Not Detected Not Detected [facility] Mycoplasma pneumoniae Not Detected Not Detected [facility] Nasopharyngeal Swab 09/19/19 3:42 PM EDT 09/19/2023 4:54 PM EDT Narrative Resulting Agency Comment Spec In Lab Aden Starkey MD MICROBIOLOGY - GENER AL ORDERABLES [facility] [place] [address] documented in this encounter Visit Diagnoses Diagnosis Opiate withdrawal Drug withdrawal COPD with exacerbation Obstructive chronic bronchitis with exacerbation At risk for prolonged QT interval syndrome COPD exacerbation Obstructive chronic bronchitis with exacerbation documented in this encounter Admitting Diagnoses Diagnosis COPD exacerbation Obstructive chronic bronchitis with exacerbation documented in this encounter Administered Medications Inactive Administered Medications - up to 3 most recent administrations Medication Order MAR Action Action Date Dose Rate Site acetaminophen (Tylenol) tablet 650 mg 650 mg, Oral, EVERY 6 HOURS PRN, Starting on Mon09/19/23 at 2058, Until Mon09/24/23 at 1944, Pain, Fever, Headaches, Maximum dose of acetaminophen is 4,000 mg from all sources in 24 hours. When ordered for pain, acetaminophen should be given even when other ordered pain medications are indicated. , Routine Given 09/24/2023 3:53 PM EDT 650 mg Given 09/23/2023 5:04 PM EDT 650 mg Given 09/23/2023 5:13 AM EDT 650 mg albuteroL (Proventil, Ventolin) (2.5 mg/3 mL) (0.083 %) nebulizer solution 2.5 mg 2.5 mg, Nebulization, EVERY 2 HOURS PRN, Starting on Mon09/19/23 at 2002, Until Mon09/24/23 at 194, Wheezing, Routine Given 09/22/2023 2:22 PM EDT 2.5 mg Given 09/19/2023 10:08 PM EDT 2.5 mg amLODIPine (Norvasc) tablet 5 mg 5 mg, Oral, DAILY, First dose on Mon09/24/23 at 1815, Until Discontinued, Routine Given 09/24/2023 5:30 PM EDT 5 mg azithromycin (Zithromax) tablet 500 mg 500 mg, Oral, DAILY, First dose on Mon09/19/23 at 1748, Until Discontinued, Routine, Indication for (Active or Suspected): Pneumonia (Community) Given 09/21/2023 8:33 AM EDT 500 mg Given 09/20/2023 8:33 AM EDT 500 mg Given 09/19/2023 6:27 PM EDT 500 mg bisacodyl EC (Dulcolax) tablet 10 mg 10 mg, Oral, DAILY, First dose on Mon09/20/23 at 0900, Until Discontinued, DO NOT CRUSH OR OPEN, Routine Given 09/23/2023 9:25 AM EDT 10 mg Given 09/22/2023 9:27 AM EDT 10 mg Given 09/21/2023 8:33 AM EDT 10 mg busPIRone (Buspar) tablet 15 mg 15 mg, Oral, 3 TIMES DAILY, First dose on Mon09/19/23 at 2100, Until Discontinued, Routine Given 09/24/2023 2:17 PM EDT 15 mg Given 09/24/2023 9:02 AM EDT 15 mg Given 09/23/2023 9:27 AM EDT 15 mg doxycycline monohydrate (Monodox) capsule 100 mg 100 mg, Oral, 2 TIMES DAILY, 10 doses, First dose on Mon09/21/23 at 2100, Last dose on Mon09/26/23 at 0900, Give this medication 2 hours BEFORE, or 6 hours AFTER products with multivalent cations (e.g. Calcium, Iron, Zinc, Magnesium, Aluminum). Do not coadminister, Routine, Indication for (Active or Suspected): Other (See comment) / h flu Given 09/24/2023 9:02 AM EDT 1 00 mg Given 09/23/2023 7:52 PM EDT 100 mg Given 09/23/2023 9:26 AM EDT [address] (Cymbalta) capsule 60 mg 60 mg, Oral, DAILY, First dose on Mon09/20/23 at 0900, Until Discontinued, Routine Given 09/24/2023 9:03 AM EDT 60 mg Given 09/23/2023 9:27 AM EDT 60 mg Given 09/22/2023 9:28 AM EDT 60 mg enoxaparin (Lovenox) (40 mg/0.4 mL) subcutaneous injection 40 mg 40 mg, Subcutaneous, NIGHTLY, First dose on Mon09/19/23 at 2101, Until Discontinued, Routine Given 09/22/2023 8:14 PM EDT 40 mg Given 09/21/2023 8:36 PM EDT 40 mg Given 09/20/2023 9:06 PM EDT 40 mg folic acid (Vitamin B9) tablet 1,000 mcg 1,000 mcg, Oral, DAILY, First dose on Mon09/20/23 at 1600, Until Discontinued, Routine Given 09/24/2023 9:03 AM EDT 1,000 mcg Given 09/23/2023 9:26 AM EDT 1,000 mcg Given 09/22/2023 9:28 AM EDT 1,000 mcg guaiFENesin ER (Mucinex) tablet 600 mg 600 mg, Oral, EVERY 12 HOURS, First dose on Mon09/23/23 at 1300, Until Discontinued, DO NOT CRUSH OR OPEN, Routine Given 09/24/2023 12:30 PM EDT 600 mg Given 09/23/2023 12:10 PM EDT 600 mg haloperidoL lactate (Haldol) (5 mg/mL) injection 2 mg 2 mg, Intravenous, ONCE, 1 dose, On Mon09/24/23 at 0215, If medication ordered subcutaneously, do not administer more than 3 mL as a single injection., Routine Given 09/24/2023 1:34 AM EDT 2 mg hydrALAZINE (Apresoline) (20 mg/mL) injection 10 mg 10 mg, Intravenous, EVERY 6 HOURS PRN, Starting on 09/23/23 at 1556, Until Mon09/24/23 at 1944, High Blood Pressure, SBP > 170 hydrALAZINE (Apresoline) (20 mg/mL) injection 5 mg 5 mg, Intravenous, EVERY 6 HOURS PRN, Starting on Mon09/20/23 at 1200, Until 09/23/23 at 1557, High Blood Pressure, SBP > 170 Given 09/23/2023 1:17 PM EDT 5 mg Given 09/22/2023 4:12 PM EDT 5 mg Given 09/20/2023 8:02 PM EDT 5 mg HYDROmorphone (Dilaudid) tablet 4 mg 4 mg, Oral, ONCE, 1 dose, On Mon09/20/23 at 1615, Routine Given 09/20/2023 3:40 PM EDT 4 mg hydrOXYzine (Atarax) tablet 10 mg 10 mg, Oral, 4 TIMES DAILY PRN, 3 doses, Starting on Mon09/19/23 at 2110, Until Mon09/23/23 at 0513, Itching, Anxiety, Routine Given 09/23/2023 5:13 AM EDT 1 0 mg Given 09/22/2023 3:18 PM EDT 10 mg Given 09/22/2023 10:07 AM EDT 10 mg hydrOXYzine (Atarax) tablet 10 mg 10 mg, Oral, 4 TIMES DAILY PRN, Starting on Mon09/23/23 at 1036, Until 09/23/23 at 1557, Itching, Anxiety, Routine Given 09/23/2023 3:02 PM EDT 10 mg Given 09/23/2023 10:56 AM EDT 10 mg hydrOXYzine (Atarax) tablet 25 mg 25 mg, Oral, 4 TIMES DAILY PRN, Starting on Mon09/23/23 at 1556, Until Mon09/24/23 at 1944, Itching, Anxiety, Routine Given 09/24/2023 5:11 PM EDT 25 mg Given 09/24/2023 9:03 AM EDT 25 mg Given 09/23/2023 11:55 PM EDT 25 mg ibuprofen (Advil) tablet 600 mg 600 mg, Oral, ONCE, 1 dose, On Mon09/19/23 at 2023, Administer orally with milk or food to minimize GI irritation. Maximum dose of 3,200 mg from all sources in 24 hours, Routine Given 09/19/2023 8:37 PM EDT 600 mg ipratropium-albuteroL (Duoneb) 0.5 mg-3 mg(2.5 mg base)/3 mL nebulizer solution 3 mL 3 mL, Nebulization, EVERY 4 HOURS, First dose on Mon09/19/23 at 2005, Until Discontinued, Routine Given 09/24/2023 3:50 PM EDT 3 mLs Given 09/24/2023 11:55 AM EDT 3 mLs Given 09/24/2023 9:00 AM EDT 3 mLs ipratropium-albuteroL (Duoneb) 0.5 mg-3 mg(2.5 mg base)/3 mL nebulizer solution 3 mL 3 mL, Nebulization, EVERY 4 HOURS PRN, Starting on Mon09/19/23 at 2055, Until Mon09/24/23 at 1944, Wheezing, Dyspnea, Routine ipratropium-albuteroL (Duoneb) 0.5 mg-3 mg(2.5 mg base)/3 mL nebulizer solution 1 dose, Starting on Mon09/19/23 at 1521, Until Mon09/19/23 at 1522, Roel Salcedo: cabinet override ketorolac (Toradol) (15 mg/mL) injection 15 mg 15 mg, Intravenous, ONCE, 1 dose, On Mon09/20/23 at 0145, Routine Given 09/20/2023 1:09 AM EDT 15 mg ketorolac (Toradol) (15 mg/mL) injection 15 mg 15 mg, Intravenous, EVERY 6 HOURS PRN, Starting on Mon09/20/23 at 1055, Until Mon09/24/23 at 1944, Pain, Routine Given 09/24/2023 2:16 PM EDT 15 mg Given 09/23/2023 10:07 PM EDT 15 mg Given 09/23/2023 5:04 PM EDT 15 mg labetaloL (Normodyne) (5 mg/mL) injection solution 10 mg 10 mg, Intravenous, ONCE, 1 dose, On Mon09/20/23 at 1415, Routine Given 09/20/2023 1:40 PM EDT 10 mg lactated Ringers 1,000 mL IV bolus Intravenous, ONCE, 1 dose, On Mon09/19/23 at 1534 New Bag 09/19/2023 3:58 PM EDT lactulose (Chronulac) (0.67 gram/mL) oral liquid 30 g 30 g, Oral, ONCE, 1 dose, On Mon09/22/23 at 1345, Routine Given 09/22/2023 1:08 PM EDT 30 g lidocaine (Lidoderm) 5% patch 1 patch 1 patch, Transdermal, Administer over 12 Hours, EVERY 24 HOURS, First dose on Mon09/23/23 at 1645, Until Discontinued, Apply patch(es) for 12 hours, and then remove for 12 hours. Back , Routine Patch Applied 09/24/2023 3:50 PM EDT 1 patch 07- Back Lower (Left) Patch Applied 09/23/2023 4:17 PM EDT 1 patch 07- Back Lower (Left) lidocaine (Xylocaine) 1% (10 mg/mL) injection 3 mg 3 mg (0.3 mL), Subcutaneous, ONCE PRN, 1 dose, Starting on Mon09/19/23 at 2059, Until Mon09/24/23 at 1944, for discomfort with PIV insertion, Routine lisinopriL (Zestril) tablet 40 mg 40 mg, Oral, DAILY, First dose on Mon09/20/23 at 0900, Until Discontinued, Routine Given 09/24/2023 9:02 AM EDT 40 mg Given 09/23/2023 9:27 AM EDT 40 mg Given 09/22/2023 9:28 AM EDT 40 mg LORazepam (Ativan) (2 mg/mL) injection syringe 1 mg 1 mg, Intravenous, ONCE, 1 dose, On Mon09/23/23 at 2330, STAT Given 09/23/2023 10:37 PM EDT 1 mg LORazepam (Ativan) (2 mg/mL) injection syringe 2 mg 2 mg, Intravenous, ONCE, 1 dose, On 09/24/23 at 0345, Routine Given 09/24/2023 2:52 AM EDT 2 mg LORazepam (Ativan) tablet 0.5 mg 0.5 mg, Oral, 2 TIMES DAILY PRN, Starting on Mon09/24/23 at 1235, Until Mon09/24/23 at 1944, Anxiety, Routine LORazepam (Ativan) tablet 1 mg 1 mg, Oral, ONCE, 1 dose, On Tu09/19/23 at 1606, STAT Given 09/19/2023 4:18 PM EDT 1 mg LORazepam (Ativan) tablet 1 mg 1 mg, Oral, 2 TIMES DAILY PRN, Starting on Mon09/19/23 at 2058, Until 09/24/23 at 1235, Anxiety, Routine Given 09/24/2023 12:31 PM EDT 1 mg Given 09/23/2023 11:55 PM EDT 1 mg Given 09/23/2023 1:07 PM EDT 1 mg LORazepam (Ativan) tablet 1.5 mg 1.5 mg, Oral, ONCE, 1 dose, On 09/23/23 at 1615, Routine Given 09/23/2023 3:22 PM EDT 1.5 mg LORazepam (Ativan) tablet 1.5 mg 1.5 mg, Oral, ONCE, 1 dose, On 09/23/23 at 2100, Routine Given 09/23/2023 8:24 PM EDT 1.5 mg LORazepam (Ativan) tablet 2 mg 2 mg, Oral, EVERY 4 HOURS PRN, Starting on Mon09/20/23 at 1332, Until Arlene 09/21/23 at 1321, Withdrawal, CIWA-Ar score 11-14, Continue assessing CIWA-Ar every 4 hours. If no improvement in CIWA-Ar after 2 consecutive doses or if patient develops worsening of symptoms, contact responsible provider to change regimen. May give IV LORazepam if unable to take by mouth., Routine, LORazepam PRN CIWA-Ar Score: Regular Dose Scale Given 09/21/2023 6:14 AM EDT 2 mg Given 09/20/2023 10:27 PM EDT 2 mg Given 09/20/2023 6:12 PM EDT 2 mg LORazepam (Ativan) tablet 3 mg 3 mg, Oral, EVERY 4 HOURS PRN, Starting on Mon09/20/23 at 1332, Until Mon09/21/23 at 1321, Withdrawal, CIWA-Ar score 15 or GREATER, May give IV LORazepam if unable to take by mouth. Call responsible provider to reassess if CIWA-Ar score is greater than 15., Routine, LORazepam PRN CIWA-Ar Score: Regular Dose Scale Given 09/21/2023 10:28 AM EDT 3 mg melatonin tablet 3 mg 3 mg, Oral, NIGHTLY PRN, Starting on Mon09/19/23 at 2059, Until Mon09/24/23 at 1944, Sleep, Sleep, Routine methadone (Dolophine) (10 mg/mL) oral liquid 132 mg 132 mg, Oral, DAILY, First dose on Mon09/20/23 at 0645, Until Discontinued, Liquid methadone should be used to avoid diversion, and a mouth check should be performed after each dose., Routine, Name of patient's Methadone clinic? [facility], Methadone clinic phone: [phone], Date last Methadone dose was given at the Outpatient Clinic? 09/11/2023, Dose of Methadone provided at the clinic? 132mg Given 09/24/2023 4:58 AM EDT 132 mg Given 09/23/2023 5:46 AM EDT 132 mg Given 09/22/2023 5:35 AM EDT 132 mg methocarbamoL (Robaxin) tablet 500 mg 500 mg, Oral, ONCE, 1 dose, On Mon09/23/23 at 1445, Routine Given 09/23/2023 2:02 PM EDT 500 mg methylPREDNISolone sod succ (pf) (SOLU-Medrol) (125 mg/2 mL) injection 125 mg 125 mg, Intravenous, ONCE, 1 dose, On Mon09/19/23 at 1534 Given 09/19/2023 3:57 PM EDT 125 mg mometasone (Asmanex Twisthaler) 220 mcg/actuation (14 puff) DPI Inhaler 1 puff 1 puff (220 mcg), Inhalation, 2 TIMES DAILY, First dose on Mon09/19/23 at 2100, Until Discontinued, Rinse mouth with water (spit out without swallowing) after each use., Does the patient have the inspiratory effort to support a dry powder inhaler? Yes Given 09/21/2023 9:00 AM EDT 1 puff Given 09/20/2023 9:00 PM EDT 1 puff Given 09/20/2023 9:00 AM EDT 1 puff mometasone (Asmanex Twisthaler) DPI Inhaler 1 puff 1 puff (220 mcg), Inhalation, 2 TIMES DAILY, First dose on Mon09/22/23 at 1045, Until Discontinued, Rinse mouth with water (spit out without swallowing) after each use. Given 09/24/2023 9:04 AM EDT 1 pu ff Given 09/23/2023 9:34 AM EDT 1 puff Given 09/22/2023 8:15 PM EDT 1 puff multivitamin with minerals (Thera M) tablet 1 tablet 1 tablet, Oral, DAILY, First dose on Mon09/20/23 at 1600, Until Discontinued, Routine Given 09/24/2023 9:02 AM EDT 1 tablet Given 09/23/2023 9:26 AM EDT 1 tablet Given 09/22/2023 9:27 AM EDT 1 tablet naloxone (Narcan) (0.4 mg/mL) injection 0.2-2 mg 0.2-2 mg, Intravenous, ONCE PRN, 1 dose, Starting on Mon09/20/23 at 0548, Until Mon09/24/23 at 1944, Opioid Reversal, Start with 0.2mg via intravenous. May repeat 0.2 mg every 2-3 minutes until patient is responsive or vital signs improve to maximum of 2 mg total. If ineffective, call HERT team [phone]., Routine nicotine (Nicoderm CQ) 21 mg/24 hr patch 21 mg 21 mg (1 patch), Transdermal, Administer over 24 Hours, DAILY, First dose on Mon09/19/23 at 1606, Until Discontinued, Apply new patch to clean, dry, hair-free skin on the upper body or upper outer arm; each patch should be applied to a different site., Routine Patch Applied 09/24/2023 9:00 AM EDT 21 mg 03- Shoulder (Left) Patch Applied 09/23/2023 9:32 AM EDT 21 mg 04- Shoulder (Right) Patch Applied 09/22/2023 9:26 AM EDT 21 mg 04- Shoulder (Right) nicotine (Nicoderm CQ) 21 mg/24 hr patch Patch Verification Transdermal, 2 TIMES DAILY, First dose on Mon09/20/23 at 0404, Until Discontinued, Verify nicotine 21 mg/24 hr patch olodateroL (Striverdi Respimat) inhaler 2 puff 2 puff, Inhalation, DAILY, First dose on Mon09/20/23 at 0900, Until Discontinued Given 09/24/2023 9:04 AM EDT 2 puffs Given 09/23/2023 9:41 AM EDT 2 puffs Given 09/22/2023 9:00 AM EDT 2 puffs PHENobarbitaL (Luminal) (130 mg/mL) injection 318.5 mg 318.5 mg (rounded from 318.15 mg = 4.5 mg/kg/dose ? 70.7 kg Ava weight), Intravenous, EVERY 3 HOURS, 2 doses, First dose on Mon09/21/23 at 1715, Last dose on Mon09/21/23 at 2015, Administer as slow IV Push at a rate no more than 50 mg/minute. Hold for RASS Less than -1: Not fully alert, but has sustained (more than 10 seconds) awakening, with eye contact, to voice. Hold for HR Less than 60 bpm. Hold for SBP Less than 90 mmHg. Administer as a slow IV push at a rate not to exceed 50 mg/min., Routine Given 09/21/2023 8:36 PM EDT 318.5 mg Given 09/21/2023 5:23 PM EDT 318.5 mg PHENobarbitaL (Luminal) (130 mg/mL) injection 318.5 mg 318.5 mg (rounded from 318.15 mg = 4.5 mg/kg/dose ? 70.7 kg Ava weight), Intravenous, EVERY 30 MIN PRN, 2 doses, Starting on Mon09/21/23 at 1321, Until Mon09/22/23 at 1102, Agitation, Administer as slow IV Push at a rate no more than 50 mg/minute. Hold for RASS Less than -1: Not fully alert, but has sustained (more than 10 seconds) awakening, with eye contact, to voice. Hold for HR Less than 60 bpm. Hold for SBP Less than 90 mmHg. Administer as a slow IV push at a rate not to exceed 50 mg/min., Routine Given 09/22/2023 11:02 AM EDT 318.5 mg Given 09/22/2023 7:46 AM EDT 318.5 mg PHENobarbitaL (Luminal) (130 mg/mL) injection 423.8 mg 423.8 mg (rounded from 424.2 mg = 6 mg/kg/dose ? 70.7 kg Ava weight), Intravenous, ONCE, 1 dose, On Arlene 09/21/23 at 1415, Administer as slow IV Push at a rate no more than 50 mg/minute. Hold for RASS Less than -1: Not fully alert, but has sustained (more than 10 seconds) awakening, with eye contact, to voice. Hold for HR Less than 60 bpm. Hold for SBP Less than 90 mmHg. Administer as a slow IV push at a rate not to exceed 50 mg/min., Routine Given 09/21/2023 2:19 PM EDT 423.8 mg PHENobarbitaL tablet 16.2 mg 16.2 mg (rounded from 16.968 mg = 0.24 mg/kg/dose ? 70.7 kg Ava weight), Oral, 2 TIMES DAILY, 2 doses, First dose on 09/24/23 at 0900, Last dose on 09/24/23 at 2100, Hold for RASS Less than -1: Not fully alert, but has sustained (more than 10 seconds) awakening, with eye contact, to voice. Hold for HR Less than 60 bpm. Hold for SBP Less than 90 mmHg., Routine Given 09/24/2023 9:03 AM EDT 16.2 mg PHENobarbitaL tablet 32.4 mg 32.4 mg (rounded from 33.936 mg = 0.48 mg/kg/dose ? 70.7 kg Ava weight), Oral, 2 TIMES DAILY, 2 doses, First dose on 09/23/23 at 0900, Last dose on 09/23/23 at 2100, Hold for RASS Less than -1: Not fully alert, but has sustained (more than 10 seconds) awakening, with eye contact, to voice. Hold for HR Less than 60 bpm. Hold for SBP Less than 90 mmHg., Routine Given 09/23/2023 8:15 PM EDT 32.4 mg Given 09/23/2023 9:27 AM EDT 32.4 mg PHENobarbitaL tablet 64.8 mg 64.8 mg (rounded from 67.872 mg = 0.96 mg/kg/dose ? 70.7 kg Ava weight), Oral, 2 TIMES DAILY, 2 doses, First dose on Mon09/22/23 at 0900, Last dose on Mon09/22/23 at 2100, Hold for RASS Less than -1: Not fully alert, but has sustained (more than 10 seconds) awakening, with eye contact, to voice. Hold for HR Less than 60 bpm. Hold for SBP Less than 90 mmHg., Routine Given 09/22/2023 8:14 PM EDT 64.8 mg Given 09/22/2023 9:28 AM EDT 64.8 mg polyethylene glycoL (Miralax) packet 17 g 17 g, Oral, 2 TIMES DAILY, First dose on Mon09/19/23 at 2100, Until Discontinued, Routine Given 09/22/2023 8:14 PM EDT 17 g Given 09/22/2023 9:26 AM EDT 17 g Given 09/21/2023 8:37 PM EDT 17 g predniSONE (Deltasone) tablet 10 mg 10 mg, Oral, DAILY, First dose on Mon10/09/23 at 0900, Until Discontinued, Routine predniSONE (Deltasone) tablet 20 mg 20 mg, Oral, DAILY, 4 doses, First dose on Mon10/05/23 at 0900, Last dose on Mon10/08/23 at 0900, Routine predniSONE (Deltasone) tablet 30 mg 30 mg, Oral, DAILY, 4 doses, First dose on Mon10/01/23 at 0900, Last dose on Mon10/04/23 at 0900, Routine predniSONE (Deltasone) tablet 40 mg 40 mg, Oral, DAILY, 4 doses, First dose on Mon09/27/23 at 0900, Last dose on Mon09/30/23 at 0900, Routine predniSONE (Deltasone) tablet 50 mg 50 mg, Oral, DAILY, 4 doses, First dose on Mon09/23/23 at 0900, Last dose on Mon09/26/23 at 0900, Routine Given 09/24/2023 9:02 AM EDT 50 mg Given 09/23/2023 9:32 AM EDT 50 mg predniSONE (Deltasone) tablet 60 mg 60 mg, Oral, DAILY, 4 doses, First dose on Mon09/19/23 at 2057, Last dose on Mon09/22/23 at 0900, Routine Given 09/20/2023 8:32 AM EDT 60 mg Given 09/19/2023 10:08 PM EDT 60 mg predniSONE (Deltasone) tablet 60 mg 60 mg, Oral, DAILY, 2 doses, First dose (after last modification) on Mon09/21/23 at 0900, Last dose on Mon09/22/23 at 0900, Routine Given 09/22/2023 9:27 AM EDT 60 mg Given 09/21/2023 8:32 AM EDT 60 mg pregabalin (Lyrica) capsule 200 mg 200 mg, Oral, ONCE, 1 dose, On Mon09/19/23 at 1755, Routine Given 09/19/2023 6:27 PM EDT 200 mg pregabalin (Lyrica) capsule 200 mg 200 mg, Oral, 3 TIMES DAILY AFTER MEALS, First dose on Mon09/20/23 at 0900, Until Discontinued, Routine Given 09/24/2023 5:11 PM EDT 200 mg Given 09/24/2023 12:30 PM EDT 200 mg Given 09/24/2023 9:02 AM EDT 200 mg QUEtiapine (SEROquel) tablet 12.5 mg 12.5 mg, Oral, 2 TIMES DAILY PRN, Starting on 09/24/23 at 1345, Until 09/24/23 at 1944, Agitation, Routine QUEtiapine (SEROquel) tablet 300 mg 300 mg, Oral, NIGHTLY, First dose on Mon09/19/23 at 2100, Until Discontinued, Routine Given 09/23/2023 11:5 4 PM EDT 300 mg Given 09/22/2023 8:14 PM EDT 300 mg Given 09/21/2023 8:36 PM EDT 300 mg senna-docusate (Pericolace) 8.6-50 mg per tablet 2 tablet 2 tablet, Oral, 2 TIMES DAILY, First dose on Mon09/19/23 at 2100, Until Discontinued, Routine Given 09/22/2023 9:33 AM EDT 2 tablets Given 09/21/2023 8:36 PM EDT 2 tablets Given 09/21/2023 8:32 AM EDT 2 tablets senna-docusate (Pericolace) 8.6-50 mg per tablet 4 tablet 4 tablet, Oral, 2 TIMES DAILY, First dose (after last modification) on Mon09/22/23 at 2100, Until Discontinued, Routine Given 09/23/2023 9:25 AM EDT 4 table ts Given 09/22/2023 8:14 PM EDT 4 tablets sodium chloride 0.9 % (flush) (BD PosiFlush Normal Saline 0.9) flush 5 mL 5 mL, Intravenous, 2 TIMES DAILY, First dose on Mon09/19/23 at 2101, Until Discontinued, Routine Given 09/24/2023 9:00 AM EDT 5 mLs Given 09/23/2023 10:07 PM EDT 5 mLs Given 09/23/2023 9:33 AM EDT 5 mLs sodium chloride 0.9 % (flush) (BD PosiFlush Normal Saline 0.9) flush 5-20 mL 5-20 mL, Intravenous, EVERY 1 MIN PRN, Starting on Mon09/19/23 at 2059, Until Mon09/24/23 at 1944, flush, Flush pertains to all indwelling lines. Flush per protocol found in the job aid using the link provided on this medication record., Routine thiamine (Vitamin B-1) tablet 100 mg 100 mg, Oral, DAILY, First dose on Mon09/20/23 at 1430, Until Discontinued, Routine Given 09/24/2023 9:03 AM EDT 100 mg Given 09/23/2023 9:32 AM EDT 100 mg Given 09/22/2023 9:33 AM EDT 100 mg tiotropium (Spiriva Respimat) 2.5 mcg/actuation inhaler 2 puff 2 puff, Inhalation, DAILY, First dose on Mon09/20/23 at 0900, Until Discontinued Given 09/24/2023 9:04 AM EDT 2 puffs Given 09/23/2023 9:41 AM EDT 2 puffs Given 09/22/2023 9:29 AM EDT 2 puffs tiZANidine (Zanaflex) tablet 4 mg 4 mg, Oral, ONCE, 1 dose, On Mon09/23/23 at 2100, Routine Given 09/23/2023 8:24 PM EDT 4 mg zonisamide (Zonegran) capsule 200 mg 200 mg, Oral, DAILY, First dose on Mon09/20/23 at 0900, Until Discontinued, DO NOT SPLIT, CRUSH OR OPEN, Routine Given 09/24/2023 9:02 AM EDT 200 mg Given 09/23/2023 10:15 AM EDT 200 mg Given 09/22/2023 9:36 AM EDT 200 mg documented in this encounter Active and Recently Administered Medications Times are shown in EDT. Scheduled Medication Order 09/22/2023 09/23/2023 09/24/2023 amLODIPine (Norvasc) tablet 5 mg 5 mg, Oral, DAILY, First dose on Mon09/24/23 at 1815, Until Discontinued, Routine 1730 (Given - Provid er: Liv Bowles RN) bisacodyl EC (Dulcolax) tablet 10 mg 10 mg, Oral, DAILY, First dose on Mon09/20/23 at 0900, Until Discontinued, DO NOT CRUSH OR OPEN, Routine 926 (Given - Provider: Telly Hough Jr., RN) 09 (Given - Provider: Lucia Aguilar, CHRISTINE) 09 (Not Given - Provider: Liv Bowles RN - Reason: Patient/family refused) busPIRone (Buspar) tablet 15 mg 15 mg, Oral, 3 TIMES DAILY, First dose on Mon09/19/23 at 2100, Until Discontinued, Routine 926 (Given - Provider: Telly Hough Jr., CHRISTINE)142 (Given - Provider: Telly Hough Jr., CHRISTINE)2013 (Given - Provider: Mirta Diaz RN) 09 (Given - Provider: Lucia Aguilar, CHRISTINE)1404 (Not Given - Provider: Lucia Aguilar RN - Reason: Patient/family refused)1950 (Not Given - Provider: Lenard Ness RN - Reason: Patient/family refused)2099 (Not Given - Provider: Lenard Ness RN - Reason: Patient/family refused) 09 (Given - Provider: Liv Bowles RN)1417 (Given - Provider: Liv Bowles RN) doxycycline monohydrate (Monodox) capsule 100 mg 100 mg, Oral, 2 TIMES DAILY, 10 doses, First dose on Mon09/21/23 at 2100, Last dose on Mon09/26/23 at 0900, Give this medication 2 hours BEFORE, or 6 hours AFTER products with multivalent cations (e.g. Calcium, Iron, Zinc, Magnesium, Aluminum). Do not coadminister, Routine, Indication for (Active or Suspected): Other (See comment) / h flu 927 (Given - Provider: Telly Hough Jr., RN)2013 (Given - Provider: Mirta Diaz RN) 925 (Given - Provider: Lucia Aguilar RN)1951 (Given - Provider: Lenard Ness, RN)2099 (Not Given - Provider: Lenard Ness RN - Reason: See comment - Comment: already given) 901 (Given - Provider: Liv Bowles RN) doxycycline monohydrate (Monodox) capsule 100 mg 100 mg, Oral, 2 TIMES DAILY, 10 doses, First dose on Mon09/25/23 at 0000, Last dose on Mon09/29/23 at 0900, Give this medication 2 hours BEFORE, or 6 hours AFTER products with multivalent cations (e.g. Calcium, Iron, Zinc, Magnesium, Aluminum). Do not coadminister, Routine, Indication for (Active or Suspected): Pneumonia (Community) DULoxetine DR (Cymbalta) capsule 60 mg 60 mg, Oral, DAILY, First dose on Mon09/20/23 at 0900, Until Discontinued, Routine 927 (Given - Provider: Telly Hough Jr., RN) 926 (Given - Provider: Lucia Aguilar RN) 902 (Given - Provider: Liv Bowles RN) enoxaparin (Lovenox) (40 mg/0.4 mL) subcutaneous injection 40 mg 40 mg, Subcutaneous, NIGHTLY, First dose on Mon09/19/23 at 2101, Until Discontinued, Routine 2013 (Given - Provider: Mirta Diaz RN) 2099 (Not Given - Provider: Lenard Ness RN - Reason: Patient/family refused) folic acid (Vitamin B9) tablet 1,000 mcg 1,000 mcg, Oral, DAILY, First dose on 5/22/24 at 1600, Until Discontinued, Routine 0928 (Given - Provider: Telly Hough Jr., CHRISTINE) 0926 (Given - Provider: Lucia Aguilar, RN) 0903 (Given - Provider: Liv Bowles, RN) guaiFENesin ER (Mucinex) tablet 600 mg 600 mg, Oral, EVERY 12 HOURS, First dose on Mon09/23/23 at 1300, Until Discontinued, DO NOT CRUSH OR OPEN, Routine 1210 (Given - Provider: Lucia Aguilar, CHRISTINE) 0015 (Not Given - Provider: Lenard Ness RN - Reason: Patient/family refused)1230 (Given - Provider: Liv Bowles, RN) haloperidoL lactate (Haldol) (5 mg/mL) injection 2 mg (COMPLETED) 2 mg, Intravenous, ONCE, 1 dose, On Mon09/24/23 at 0215, If medication ordered subcutaneously, do not administer more than 3 mL as a single injection., Routine 0134 (Given - Provid er: Lenard Ness, CHRISTINE) ipratropium-albuteroL (Duoneb) 0.5 mg-3 mg(2.5 mg base)/3 mL nebulizer solution 3 mL 3 mL, Nebulization, EVERY 4 HOURS, First dose on Mon09/19/23 at 2004, Until Discontinued, Routine 0000 (Given - Provider: Emily Martin RN)0340 (Given - Provider: Emily Martin RN)0927 (Given - Provider: Telly Hough Jr., CHRISTINE)1224 (Given - Provider: Telly Hough Jr., CHRISTINE)1612 (Given - Provider: Telly Hough Jr., CHRISTINE)2013 (Given - Provider: Mirta Diaz, CHRISTINE) 0030 (Given - Provider: Mirta Diaz, CHRISTINE)0416 (Given - Provider: Mirta Diaz, RN)0932 (Given - Provider: Lucia Aguilar, CHRISTINE)1308 (Given - Provider: Lucia Aguilar, CHRISTINE)1704 (Given - Provider: Lucia Aguilar, RN)2004 (Not Given - Provider: Lenard Ness, RN - Reason: Patient/family refused) 0005 (Not Given - Provider: Lenard Ness RN - Reason: Patient/family refused)0357 (Not Given - Provider: Lenard Ness RN - Reason: Patient/family refused)0900 (Given - Provider: Liv Bowles RN)1155 (Given - Provider: Casi Trejo LPN)1550 (Given - Provider: Liv Bowles RN) lactulose (Chronulac) (0.67 gram/mL) oral liquid 30 g (COMPLETED) 30 g, Oral, ONCE, 1 dose, On Mon09/22/23 at 1345, Routine 1308 (Given - Provider: Telly Hough Jr., RN) lidocaine (Lidoderm) 5% patch 1 patch 1 patch, Transdermal, Administer over 12 Hours, EVERY 24 HOURS, First dose on 09/23/23 at 1645, Until Discontinued, Apply patch(es) for 12 hours, and then remove for 12 hours. Back , Routine 1617 (Patch Applied - Provider: Lucia Aguilar RN) 0357 (Patch Removed - Provider: Lenard Ness RN)1550 (Patch Applied - Provider: Liv Bowles RN)1744 (Due: Patch Removed - Provider: Automatic Discharge Provider - Comment: Time automatically adjusted from order being discontinued) lisinopriL (Zestril) tablet 40 mg 40 mg, Oral, DAILY, First dose on Mon09/20/23 at 0900, Until Discontinued, Routine 0928 (Given - Provider: Telly Hough Jr., RN) 0927 (Given - Provider: Lucia Aguilar RN) 0902 (Given - Provider: Liv Bowles RN) LORazepam (Ativan) (2 mg/mL) injection syringe 1 mg (COMPLETED) 1 mg, Intravenous, ONCE, 1 dose, On 09/23/23 at 2330, STAT 2237 (Given - Provider: Lenard Ness RN) LORazepam (Ativan) (2 mg/mL) injection syringe 2 mg (COMPLETED) 2 mg, Intravenous, ONCE, 1 dose, On Mon09/24/23 at 0345, Routine 0252 (Given - Provid er: Lenard Ness RN) LORazepam (Ativan) tablet 1.5 mg (COMPLETED) 1.5 mg, Oral, ONCE, 1 dose, On 09/23/23 at 1615, Routine 1522 (Given - Provider: Lucia Aguilar RN) LORazepam (Ativan) tablet 1.5 mg (COMPLETED) 1.5 mg, Oral, ONCE, 1 dose, On 09/23/23 at 2100, Routine 2023 (Given - Provider: Lenard Ness RN) methadone (Dolophine) (10 mg/mL) oral liquid 132 mg 132 mg, Oral, DAILY, First dose on Mon09/20/23 at 0645, Until Discontinued, Liquid methadone should be used to avoid diversion, and a mouth check should be performed after each dose., Routine, Name of patient's Methadone clinic? [facility], Methadone clinic phone: [phone], Date last Methadone dose was given at the Outpatient Clinic? 09/11/2023, Dose of Methadone provided at the clinic? 132mg 0535 (Given - Provider: Emily Martin RN) 0546 (Given - Provider: Mirta Diaz RN) 0458 (Given - Provider: Lenard Ness RN)0600 (Not Given - Provider: Lenard Ness RN - Reason: See comment - Comment: already given) methocarbamoL (Robaxin) tablet 500 mg (COMPLETED) 500 mg, Oral, ONCE, 1 dose, On 09/23/23 at 1445, Routine 1402 (Given - Provider: Lucia Aguilar RN) mometasone (Asmanex Twisthaler) DPI Inhaler 1 puff 1 puff (220 mcg), Inhalation, 2 TIMES DAILY, First dose on Mon09/22/23 at 1045, Until Discontinued, Rinse mouth with water (spit out without swallowing) after each use. 1052 (Given - Provider: Telly Hough Jr., CHRISTINE)2014 (Given - Provider: Mirta Diaz RN) 0934 (Given - Provider: Lucia Aguilar RN)2099 (Not Given - Provider: Lenard Ness RN - Reason: Patient/family refused) 0904 (Given - Provider: Liv Bowles RN) multivitamin with minerals (Thera M) tablet 1 tablet 1 tablet, Oral, DAILY, First dose on Mon09/20/23 at 1600, Until Discontinued, Routine 0927 (Given - Provider: Telly Hough Jr., CHRISTINE) 0926 (Given - Provider: Lucia Aguilar RN) 0902 (Given - Provider: Liv Bowles RN) nicotine (Nicoderm CQ) 21 mg/24 hr patch 21 mg(Linked Group 1) 21 mg (1 patch), Transdermal, Administer over 24 Hours, DAILY, First dose on Mon09/19/23 at 1606, Until Discontinued, Apply new patch to clean, dry, hair-free skin on the upper body or upper outer arm; each patch should be applied to a different site., Routine 0836 (Patch Removed - Provider: Telly Hough Jr., RN)0926 (Patch Applied - Provider: Telly Hough Jr., RN) 0931 (Patch Removed - Provider: Lucia Aguilar RN)0932 (Patch Applied - Provider: Lucia Aguilar RN) 0859 (Patch Removed - Provider: Liv Bowles RN)0900 (Patch Applied - Provider: Liv Bowles RN)1744 (Due: Patch Removed - Provider: Automatic Discharge Provider - Comment: Time automatically adjusted from order being discontinued) nicotine (Nicoderm CQ) 21 mg/24 hr patch Patch Verification(Linked Group 1) Transdermal, 2 TIMES DAILY, First dose on Mon09/20/23 at 0404, Until Discontinued, Verify nicotine 21 mg/24 hr patch 0900 (Patch (dose and location) verified - Provider: Telly Hough Jr., RN)2100 (Patch (dose and location) verified - Provider: Mirta Diaz RN) 0932 (Patch (dose and location) verified - Provider: Lucia Aguilar RN)2030 (Patch (dose and location) verified - Provider: Lenard Ness RN) 0900 (Patch (dose and location) verified - Provider: Liv Bowles RN) olodateroL (Striverdi Respimat) inhaler 2 puff(Linked Group 2) 2 puff, Inhalation, DAILY, First dose on Mon09/20/23 at 0900, Until Discontinued 0900 (Given - Provider: Telly Hough Jr., RN) 0941 (Given - Provider: Lucia Aguilar RN) 0904 (Given - Provider: Liv Bowles RN) PHENobarbitaL tablet 16.2 mg(Linked Group 3) 16.2 mg (rounded from 16.968 mg = 0.24 mg/kg/dose ? 70.7 kg Ava weight), Oral, 2 TIMES DAILY, 2 doses, First dose on 09/24/23 at 0900, Last dose on Mon09/24/23 at 2100, Hold for RASS Less than -1: Not fully alert, but has sustained (more than 10 seconds) awakening, with eye contact, to voice. Hold for HR Less than 60 bpm. Hold for SBP Less than 90 mmHg., Routine 902 (Given - Provid er: Liv Bowles RN) PHENobarbitaL tablet 32.4 mg (COMPLETED)(Linked Group 3) 32.4 mg (rounded from 33.936 mg = 0.48 mg/kg/dose ? 70.7 kg Ava weight), Oral, 2 TIMES DAILY, 2 doses, First dose on 09/23/23 at 0900, Last dose on Mon09/23/23 at 2100, Hold for RASS Less than -1: Not fully alert, but has sustained (more than 10 seconds) awakening, with eye contact, to voice. Hold for HR Less than 60 bpm. Hold for SBP Less than 90 mmHg., Routine 926 (Given - Provider: Lucia Aguilar RN)2014 (Given - Provider: Lenard Ness RN - Comment: security called) PHENobarbitaL tablet 64.8 mg (COMPLETED)(Linked Group 3) 64.8 mg (rounded from 67.872 mg = 0.96 mg/kg/dose ? 70.7 kg Ava weight), Oral, 2 TIMES DAILY, 2 doses, First dose on Mon09/22/23 at 0900, Last dose on Mon09/22/23 at 2100, Hold for RASS Less than -1: Not fully alert, but has sustained (more than 10 seconds) awakening, with eye contact, to voice. Hold for HR Less than 60 bpm. Hold for SBP Less than 90 mmHg., Routine 927 (Given - Provider: Telly Hough Jr., CHRISTINE)2013 (Given - Provider: Mirta Diaz, CHRISTINE) polyethylene glycoL (Miralax) packet 17 g 17 g, Oral, 2 TIMES DAILY, First dose on Mon09/19/23 at 2100, Until Discontinued, Routine 925 (Given - Provider: Telly Hough Jr., CHRISTINE)2013 (Given - Provider: Mirta Diaz RN) 0934 (Not Given - Provider: Lucia Aguilar RN - Reason: Patient/family refused)2099 (Not Given - Provider: Lenard Ness RN - Reason: Patient/family refused) 09 (Not Given - Provider: Liv Bowles RN - Reason: Patient/family refused) predniSONE (Deltasone) tablet 10 mg(Linked Group 4) 10 mg, Oral, DAILY, First dose on Mon10/09/23 at 0900, Until Discontinued, Routine predniSONE (Deltasone) tablet 20 mg(Linked Group 4) 20 mg, Oral, DAILY, 4 doses, First dose on Arleen 10/05/23 at 0900, Last dose on Mon10/08/23 at 0900, Routine predniSONE (Deltasone) tablet 30 mg(Linked Group 4) 30 mg, Oral, DAILY, 4 doses, First dose on Mon10/01/23 at 0900, Last dose on Mon10/04/23 at 0900, Routine predniSONE (Deltasone) tablet 40 mg(Linked Group 4) 40 mg, Oral, DAILY, 4 doses, First dose on Mon09/27/23 at 0900, Last dose on Mon09/30/23 at 0900, Routine predniSONE (Deltasone) tablet 50 mg(Linked Group 4) 50 mg, Oral, DAILY, 4 doses, First dose on Mon09/23/23 at 0900, Last dose on Mon09/26/23 at 0900, Routine 0932 (Given - Provider: Lucia Aguilar RN) 09 (Given - Provider: Liv Bowles, CHRISTINE) predniSONE (Deltasone) tablet 60 mg (COMPLETED)(Linked Group 4) 60 mg, Oral, DAILY, 2 doses, First dose (after last modification) on Mon09/21/23 at 0900, Last dose on Mon09/22/23 at 0900, Routine 0927 (Given - Provider: Telly Hough Jr., CHRISTINE) pregabalin (Lyrica) capsule 200 mg 200 mg, Oral, 3 TIMES DAILY AFTER MEALS, First dose on Mon09/20/23 at 0900, Until Discontinued, Routine 0932 (Given - Provider: Telly Hough Jr., RN)1224 (Given - Provider: Telly Hough Jr., RN)1755 (Given - Provider: Telly Hough Jr., RN) 0926 (Given - Provider: Lucia Aguilar RN)1210 (Given - Provider: Lucia Aguilar RN)1704 (Given - Provider: Lucia Aguilar RN) 0902 (Given - Provider: Liv Bowles RN)1230 (Given - Provider: Liv Bowles RN)1711 (Given - Provider: Liv Bowles RN) QUEtiapine (SEROquel) tablet 300 mg 300 mg, Oral, NIGHTLY, First dose on Mon09/19/23 at 2100, Until Discontinued, Routine 2013 (Given - Provider: Mirta Diaz RN) 194 (Not Given - Provider: Lenard Ness, CHRISTINE - Reason: Patient/family refused)2354 (Given - Provider: Lenard Ness RN) senna-docusate (Pericolace) 8.6-50 mg per tablet 2 tablet (CANCELED) 2 tablet, Oral, 2 TIMES DAILY, First dose on Mon09/19/23 at 2100, Until Discontinued, Routine 932 (Given - Provider: Telly Hough Jr., RN) senna-docusate (Pericolace) 8.6-50 mg per tablet 4 tablet 4 tablet, Oral, 2 TIMES DAILY, First dose (after last modification) on Mon09/22/23 at 2100, Until Discontinued, Routine 2013 (Given - Provider: Mirta Diaz RN) 0925 (Given - Provider: Lucia Aguilar RN)2099 (Not Given - Provider: Lenard Ness RN - Reason: Patient/family refused) 09 (Not Given - Provider: Liv Bowles RN - Reason: Patient/family refused) sodium chloride 0.9 % (flush) (BD PosiFlush Normal Saline 0.9) flush 5 mL 5 mL, Intravenous, 2 TIMES DAILY, First dose on Mon09/19/23 at 2101, Until Discontinued, Routine 37 (Given - Provider: Telly Hough Jr., RN)2014 (Given - Provider: Mirta Diaz RN) 0933 (Given - Provider: Lucia Aguilar RN)2207 (Given - Provider: Lenard Ness RN) 0900 (Given - Provider: Liv Bowles RN) thiamine (Vitamin B-1) tablet 100 mg 100 mg, Oral, DAILY, First dose on Mon09/20/23 at 1430, Until Discontinued, Routine 0933 (Given - Provider: Telly Hough Jr., RN) 0932 (Given - Provider: Lucia Aguilar RN) 09 (Given - Provider: Liv Bowles RN) tiotropium (Spiriva Respimat) 2.5 mcg/actuation inhaler 2 puff(Linked Group 2) 2 puff, Inhalation, DAILY, First dose on Mon09/20/23 at 0900, Until Discontinued 928 (Given - Provider: Telly Hough Jr., RN) 09 (Given - Provider: Lucia Aguilar RN) 0904 (Given - Provider: Liv Bowles RN) tiZANidine (Zanaflex) tablet 4 mg (COMPLETED) 4 mg, Oral, ONCE, 1 dose, On 09/23/23 at 2100, Routine 2023 (Given - Provider: Lenard Ness RN) zonisamide (Zonegran) capsule 200 mg 200 mg, Oral, DAILY, First dose on Mon09/20/23 at 0900, Until Discontinued, DO NOT SPLIT, CRUSH OR OPEN, Routine 0936 (Given - Provider: Telly Hough Jr., RN) 1015 (Given - Provider: Nataliya Hernandez LPN) 09 (Given - Provider: Liv Bowles RN) PRN Medication Order 09/22/2023 09/23/2023 09/24/2023 acetaminophen (Tylenol) tablet 650 mg 650 mg, Oral, EVERY 6 HOURS PRN, Starting on Tu09/19/23 at 2058, Until 09/24/23 at 1944, Pain, Fever, Headaches, Maximum dose of acetaminophen is 4,000 mg from all sources in 24 hours. When ordered for pain, acetaminophen should be given even when other ordered pain medications are indicated. , Routine 1422 (Given - Provider: Telly Hough Jr., RN) 0513 (Given - Provider: Mirta Diaz RN)1704 (Given - Provider: Lucia Aguilar RN) 1553 (Given - Provider: Liv Bowles RN) albuteroL (Proventil, Ventolin) (2.5 mg/3 mL) (0.083 %) nebulizer solution 2.5 mg 2.5 mg, Nebulization, EVERY 2 HOURS PRN, Starting on Mon09/19/23 at 2003, Until Mon09/24/23 at 1944, Wheezing, Routine 1422 (Given - Provider: Telly Hough Jr., RN) calcium carbonate (TUMS) chewable tablet 1,000 mg 1,000 mg (2 tablet), Oral, 3 TIMES DAILY PRN, Starting on Mon09/19/23 at 2058, Until Mon09/24/23 at 1944, Heartburn, Routine hydrALAZINE (Apresoline) (20 mg/mL) injection 10 mg 10 mg, Intravenous, EVERY 6 HOURS PRN, Starting on Mon09/23/23 at 1556, Until Mon09/24/23 at 1944, High Blood Pressure, SBP > 170 hydrALAZINE (Apresoline) (20 mg/mL) injection 5 mg (CANCELED) 5 mg, Intravenous, EVERY 6 HOURS PRN, Starting on Mon09/20/23 at 1200, Until Mon09/23/23 at 1557, High Blood Pressure, SBP > 170 1612 (Given - Provider: Telly Hough Jr., CHRISTINE) 1317 (Given - Provider: Lucia Aguilar RN) hydrOXYzine (Atarax) tablet 10 mg (COMPLETED) 10 mg, Oral, 4 TIMES DAILY PRN, 3 doses, Starting on Mon09/19/23 at 2110, Until 09/23/23 at 0513, Itching, Anxiety, Routine 1007 (Given - Provider: Telly Hough Jr., CHRISTINE)1518 (Given - Provider: Ines Serrano RN) 0513 (Given - Provider: Mirta Diaz RN) hydrOXYzine (Atarax) tablet 10 mg (CANCELED) 10 mg, Oral, 4 TIMES DAILY PRN, Starting on Mon09/23/23 at 1036, Until Mon09/23/23 at 1557, Itching, Anxiety, Routine 1056 (Given - Provider: Lucia Aguilar, CHRISTINE)1502 (Given - Provider: Lucia Aguilar RN) hydrOXYzine (Atarax) tablet 25 mg 25 mg, Oral, 4 TIMES DAILY PRN, Starting on 09/23/23 at 1556, Until 09/24/23 at 1944, Itching, Anxiety, Routine 1814 (Given - Provider: Lucia Aguilar, CHRISTINE)2355 (Given - Provider: Lenard Ness, CHRISTINE) 0903 (Given - Provider: Liv Bowles, RN)1711 (Given - Provider: Liv Bowles, RN) ipratropium-albuteroL (Duoneb) 0.5 mg-3 mg(2.5 mg base)/3 mL nebulizer solution 3 mL 3 mL, Nebulization, EVERY 4 HOURS PRN, Starting on Mon09/19/23 at 2055, Until 09/24/23 at 1944, Wheezing, Dyspnea, Routine ketorolac (Toradol) (15 mg/mL) injection 15 mg 15 mg, Intravenous, EVERY 6 HOURS PRN, Starting on Mon09/20/23 at 1055, Until 09/24/23 at 1944, Pain, Routine 0359 (Given - Provider: Emily Martin RN)1422 (Given - Provider: Telly Hough Jr. RN) 0417 (Given - Provider: Mirta Diaz RN)1056 (Given - Provider: Lucia Aguilar RN)1704 (Given - Provider: Lucia Aguilar RN)2207 (Given - Provider: Lenard Ness, CHRISTINE) 1416 (Given - Provider: Liv Bowles RN) lidocaine (Xylocaine) 1% (10 mg/mL) injection 3 mg 3 mg (0.3 mL), Subcutaneous, ONCE PRN, 1 dose, Starting on Mon09/19/23 at 2059, Until Mon09/24/23 at 1944, for discomfort with PIV insertion, Routine LORazepam (Ativan) tablet 0.5 mg 0.5 mg, Oral, 2 TIMES DAILY PRN, Starting on Mon09/24/23 at 1235, Until 09/24/23 at 1944, Anxiety, Routine LORazepam (Ativan) tablet 1 mg (CANCELED) 1 mg, Oral, 2 TIMES DAILY PRN, Starting on Mon09/19/23 at 2058, Until 09/24/23 at 1235, Anxiety, Routine 0631 (Given - Provider: Emily Martin RN)1313 (Given - Provider: Telly Hough Jr., CHRISTINE) 0159 (Given - Provider: Jaymie Garcia LPN)1307 (Given - Provider: Lucia Aguilar, RN)2355 (Given - Provider: Lenard Ness, RN) 1231 (Given - Provider: Liv Bowles, RN) melatonin tablet 3 mg 3 mg, Oral, NIGHTLY PRN, Starting on Mon09/19/23 at 2059, Until 09/24/23 at 1944, Sleep, Sleep, Routine 1950 (Not Given - Provider: Lenard Ness, RN - Reason: Patient/family refused) naloxone (Narcan) (0.4 mg/mL) injection 0.2-2 mg 0.2-2 mg, Intravenous, ONCE PRN, 1 dose, Starting on Mon09/20/23 at 0548, Until 09/24/23 at 1944, Opioid Reversal, Start with 0.2mg via intravenous. May repeat 0.2 mg every 2-3 minutes until patient is responsive or vital signs improve to maximum of 2 mg total. If ineffective, call HERT team [phone]., Routine PHENobarbitaL (Luminal) (130 mg/mL) injection 318.5 mg (COMPLETED) 318.5 mg (rounded from 318.15 mg = 4.5 mg/kg/dose ? 70.7 kg Ava weight), Intravenous, EVERY 30 MIN PRN, 2 doses, Starting on Arlene 09/21/23 at 1321, Until Mon09/22/23 at 1102, Agitation, Administer as slow IV Push at a rate no more than 50 mg/minute. Hold for RASS Less than -1: Not fully alert, but has sustained (more than 10 seconds) awakening, with eye contact, to voice. Hold for HR Less than 60 bpm. Hold for SBP Less than 90 mmHg. Administer as a slow IV push at a rate not to exceed 50 mg/min., Routine 0746 (Given - Provider: Telly Hough Jr., CHRISTINE)1102 (Given - Provider: Telly Hough Jr., RN) QUEtiapine (SEROquel) tablet 12.5 mg 12.5 mg, Oral, 2 TIMES DAILY PRN, Starting on Mon09/24/23 at 1345, Until Mon09/24/23 at 1944, Agitation, Routine sodium chloride 0.9 % (flush) (BD PosiFlush Normal Saline 0.9) flush 5-20 mL 5-20 mL, Intravenous, EVERY 1 MIN PRN, Starting on Mon09/19/23 at 2059, Until Mon09/24/23 at 194, flush, Flush pertains to all indwelling lines. Flush per protocol found in the job aid using the link provided on this medication record., Routine Linked Groups Order Group 1: nicotine (Nicoderm CQ) 21 mg/24 hr patch 21 mgJump to med 21 mg (1 patch), Transdermal, Administer over 24 Hours, DAILY, First dose on Mon09/19/23 at 1606, Until Discontinued, Apply new patch to clean, dry, hair-free skin on the upper body or upper outer arm; each patch should be applied to a different site., Routine And nicotine (Nicoderm CQ) 21 mg/24 hr patch Patch VerificationJump to med Transdermal, 2 TIMES DAILY, First dose on Mon09/20/23 at 0404, Until Discontinued, Verify nicotine 21 mg/24 hr patch Group 2: tiotropium (Spiriva Respimat) 2.5 mcg/actuation inhaler 2 puffJump to med 2 puff, Inhalation, DAILY, First dose on Mon09/20/23 at 0900, Until Discontinued And olodateroL (Striverdi Respimat) inhaler 2 puffJump to med 2 puff, Inhalation, DAILY, First dose on Mon09/20/23 at 0900, Until Discontinued Group 3: PHENobarbitaL tablet 64.8 mg (COMPLETED)Jump to med 64.8 mg (rounded from 67.872 mg = 0.96 mg/kg/dose ? 70.7 kg Ava weight), Oral, 2 TIMES DAILY, 2 doses, First dose on Mon09/22/23 at 0900, Last dose on Mon09/22/23 at 2100, Hold for RASS Less than -1: Not fully alert, but has sustained (more than 10 seconds) awakening, with eye contact, to voice. Hold for HR Less than 60 bpm. Hold for SBP Less than 90 mmHg., Routine Followed by PHENobarbitaL tablet 32.4 mg (COMPLETED)Jump to med 32.4 mg (rounded from 33.936 mg = 0.48 mg/kg/dose ? 70.7 kg Ava weight), Oral, 2 TIMES DAILY, 2 doses, First dose on Mon09/23/23 at 0900, Last dose on Mon09/23/23 at 2100, Hold for RASS Less than -1: Not fully alert, but has sustained (more than 10 seconds) awakening, with eye contact, to voice. Hold for HR Less than 60 bpm. Hold for SBP Less than 90 mmHg., Routine Followed by PHENobarbitaL tablet 16.2 mgJump to med 16.2 mg (rounded from 16.968 mg = 0.24 mg/kg/dose ? 70.7 kg Ava weight), Oral, 2 TIMES DAILY, 2 doses, First dose on Mon09/24/23 at 0900, Last dose on Mon09/24/23 at 2100, Hold for RASS Less than -1: Not fully alert, but has sustained (more than 10 seconds) awakening, with eye contact, to voice. Hold for HR Less than 60 bpm. Hold for SBP Less than 90 mmHg., Routine Group 4: predniSONE (Deltasone) tablet 60 mg (COMPLETED)Jump to med 60 mg, Oral, DAILY, 2 doses, First dose (after last modification) on Arlene 09/21/23 at 0900, Last dose on Mon09/22/23 at 0900, Routine Followed by predniSONE (Deltasone) tablet 50 mgJump to med 50 mg, Oral, DAILY, 4 doses, First dose on Mon09/23/23 at 0900, Last dose on Mon09/26/23 at 0900, Routine Followed by predniSONE (Deltasone) tablet 40 mgJump to med 40 mg, Oral, DAILY, 4 doses, First dose on Mon09/27/23 at 0900, Last dose on Mon09/30/23 at 0900, Routine Followed by predniSONE (Deltasone) tablet 30 mgJump to med 30 mg, Oral, DAILY, 4 doses, First dose on Mon10/01/23 at 0900, Last dose on Mon10/04/23 at 0900, Routine Followed by predniSONE (Deltasone) tablet 20 mgJump to med 20 mg, Oral, DAILY, 4 doses, First dose on Arlene 10/05/23 at 0900, Last dose on Mon10/08/23 at 0900, Routine Followed by predniSONE (Deltasone) tablet 10 mgJump to med 10 mg, Oral, DAILY, First dose on 10/09/23 at 0900, Until Discontinued, Routine documented in this encounter Additional Health Concerns Infection Onset Date Last Indicated Resolved Time Streptococcus Group A 09/19/2023 09/19/20232023 5:44 PM EDT Rule Out Respiratory 09/19/2023 09/19/2023 024 5:56 PM EDT Rule Out COVID-19 09/19/2023 09/19/2023 09/19/2023 5:56 PM EDT Haemophilus influenza 09/19/2023 09/19/20232023 8:09 PM EDT documented as of this encounter Care Teams Network Program Manager Relationship Specialty Start Date End Date Travis Castaneda MD [address] [place] [address] PCP - General Internal Medicine 10/29/18 09/27/23 documented as of this encounter
--- OUTSIDE RECORDS SUMMARY | 2024-02-29 08:58 | XMS_ITS | Encounter Summary ---
Author Organization [facility] Address [facility] [place] [address] Care Team Providers Care Brand Ambassador Promotional Model Name Role Phone Travis Castaneda MD Primary Care Provider [phone] Reason for Referral * Rehabilitation (Routine) - Closed Specialty Diagnoses / Procedures Referred By Contact Referred To Contact Pulmonary Rehabilitation / Rehabilitation Diagnoses COPD, very severe Hetal Ojeda MD [facility] [place] [address] Referral ID Status Reason Start Date Expiration Date V isits Requested Visits Authorized [id number] Closed Evaluate and Treat 06/26/2023 12/23/2023 1 1 Scheduling Instructions Referral to [facility] Pulmonary Rehab. Encounter Details Date Type Department Care Team (Late st Contact Info) Description 06/26/2023 3:00 PM EST Office [place] [address] Hetal Ojeda MD [facility] [place] [address] COPD, very severe; Asthma-COPD overlap syndrome; Dependence on supplemental oxygen; Cigarette nicotine dependence with other nicotine-induced disorder Social History Tobacco Use Types Packs/Day Years Used Date Smoking Tobacco: Some Days Cigarettes 0.3 30 Smokeless Tobacco: Never Tobacco Cessation:Ready to Q uit: Not Asked; Counseling Given: Not Answered Comments:1 pack last about 10 days; previously was 2 ppd- one pack lasts a month Alcohol Use Standard Drinks/Week Comments Not Currently 0 (1 standard drink = 0.6 oz pur e alcohol) [facility] Inpatient Questions Answer Date Recorded Does [...] Sign Reading Time Taken Comments Blood Pressure 144/96 06/26/2023 2:31 PM EST Pulse 96 06/26/2023 2:31 PM EST Temperature 36.2 ??C (97.1 ??F) 06/26/2023 2:31 PM ES T Respiratory Rate 20 06/26/2023 2:31 PM EST Oxygen Saturation 93% 06/26/2023 2:31 PM EST Inhaled Oxygen Concentration - - Weight 84.4 kg (186 lb) 06/26/2023 2:31 PM EST Height 175.3 cm (5' 9.02) 06/26/2023 2:31 PM ES T Body Mass Index 27.45 06/26/2023 2:31 PM EST documented in this encounter Patient Instructions * Patient Instructions* Hetal Ojeda MD - 06/26/2023 3:00 PM EST Restart the anoro ellipa inhaler. I am referring you to pulmonary rehab at [facility]. Please quit smoking. documented in this encounter Progress Notes * Hetal Ojeda MD - 06/26/2023 3:00 PM EST Images from the original note were not included. [facility] Section of Pulmonary and Critical Care Medicine Outpatient Consultation Date of Encounter: 06/26/2023 Reason for Evaluation: Mr. Garret Barros returns to the pulmonary clinic for follow-up of COPD. I independently interviewed the patient, have examined the patient if this visit was conducted in the office and have reviewed available records. Dear Dr. Travis Castaneda MD, As you know, Garret Barros is a 48 y.o. male with history of severe asthma-COPD overlap syndrome, oxygen dependency, prior pulmonary nodules, ongoing tobacco use, in the setting of anxiety, history of substance abuse in remission, hospitalization for COPD exacerbation and constipation Jun 2022, whowas last seen in pulmonary clinic November 2022. Mr. Barros reports that he continues to have severe shortness of breath with exertion, for instance walking a short distance to the mailbox leaves him gasping and he has to treat with nebulizer treatment. He is using his oxygen some, did bring it with him today, but it sounds like he is not consistent with use at home. Has some chronic chest congestion, cough, and expectorate mucous which is sometimes blood-tinged, but sounds like mucous may be somewhat better than at times. He is having hot-cold sweats. He is on prednisone 10 mg daily. Feels chronic prednisone is helpful with fewer respiratory flares and some impact on dyspnea. He reports using his flovent, albuterol and combivent inhaler. He is no longer taking anoro ellipta - feels it didn't help. He is still smoking a little, but feels it is making him sick. Plans to quit. He was recently treated at [facility] again for pneumonia, discharged a few weeks ago. Reportsthis hospiatlization sarted in May. Also hospitalized in March for pneumonia at [facility]. These hospitalizations are per the patient; I do not yet have records from these admissions. Has never done pulmonary rehab. Has a dog. No new exposures. Current Medications at Start of Encounter: Outpatient Medications Prior to Visit Medication Sig Dispense Refill polyethylene glycoL (Miralax) 17 gram oral powder packet Take 17 g by mouth 2 times daily. Hold a dose if you have three or more bowel movements a day 14 each 0 senna-docusate (Pericolace) 8.6-50 mg Tablet Take 2 tablets by mouth 2 times daily. 60 tablet 11 predniSONE (Deltasone) 10 mg tablet Take 1 tablet by mouth daily. [address] (Cymbalta) [address] capsule Take 1 capsule by mouth daily. 30 tablet 0 testosterone cypionate (DepoTESTOSTERONE Cypionate) (200mg/mL) injection Inject 100 mg into the muscle every 14 days. Last dose 12/02/22 zonisamide (Zonegran) 100 mg Capsule Take 2 capsules by mouth daily. 60 capsule 3 busPIRone (Buspar) 15 mg Tablet Take 1 tablet by mouth 3 times daily. 90 tablet 0 lisinopriL (Prinivil;Zestril) 20 mg Tablet Take 40 mg by mouth daily. Flovent HFA 220 mcg/actuation HFA Aerosol Inhaler Inhale 2 puffs into the lungs 2 times daily. methadone (Dolophine) 10 mg/mL Concentrate Take 132 mg by mouth daily. Per methadone clinic, Per patient report, gets take home doses, MIGUEL ANGEL [facility] [phone] last dose 12/12/22 per patient Anoro Ellipta 62.5-25 mcg/actuation Disk with Device Inhale 1 Inhalation into the lungs daily. LORazepam (ATIVAN) 1 mg Tablet Take 1 tablet by mouth 2 times daily as needed for Anxiety. 10 tablet 0 QUEtiapine (SEROQUEL) 200 mg Tablet Take 1.5 tablets by mouth nightly. ipratropium-albuterol (COMBIVENT RESPIMAT) 20-100 mcg/actuation Mist Inhale [...] as needed for Pain. 30 tablet 1 ipratropium-albuterol (DUONEB) 0.5 mg-3 mg(2.5 mg base)/3 mL Solution for Nebulization Take 0.5 mg by nebulization every 6 hours. (Patient taking differently: Take 3 mLs by nebulization every 4 hours.) 1 Box 4 pregabalin (LYRICA) 200 mg Capsule Take 1 capsule by mouth 3 times daily. (Patient taking differently: Take 200 mg by mouth 3 times daily (after meals).) 60 capsule 0 bisacodyl EC (Dulcolax) 5 mg Tablet, Delayed Release (E.C.) Take 1 tablet by mouth daily as needed for Constipation. (Patient not taking: Reported on 06/26/2023) 30 tablet 0 No facility-administered medications prior to visit. Review of Systems: A focused ROS was completed and was positive as noted in HPI and otherwise negative. Physical Examination: BP (!) 144/96 Pulse 96 Temp 36.2 ??C (97.1 ??F) (Temporal) Resp 20 Ht 175.3 cm (5' 9.02) Wt 84.4 kg (186 lb) SpO2 93% BMI 27.45 kg/m?? GEN: NAD, alert, interactive, conversational, notably not in distress and more engaged in conversation about his respiratory health at this visit than at some prior visits HEENT: MMM, neck supple CV: RRR, normal S1, S2, no murmur PULM: normal work of breathing, good air movement, slight end exp wheezing, new inspiratory crackles bibasilar ABD: soft, ND MSK: no joint swelling, R leg amputation, left leg with minimal edema; he is easily ambulatory NEURO: AAO, voice is clear Pulmonary Function Test Results: Date FVC FEV1 Ratio TLC RV RV/TLC ERV DLCO 6MWT 02/13/2020 1.59 L (32% pred) 1.17 L (30% pred) 74 01/13/2021 2.21 L (44% pred) 0.67 L (17% pred) 30 *39% pred (doen't meet ATS criteria) 07/06/2022 1.57 L (32% pred) 0.77 L (20% pred) 49 19% pred 09/02/2022 1.48 L (30% pred) 0.64 L (16% pred) 43 23% pred 09/02/2022: Ambulatory O2 assessment: SpO2 was 78% at rest on RA at beginning of ambulatory O2 assessment, and he required 5L O2 to maintain SpO2 > 88% with ambulation. PFT interpretation: Very severe airflow obstruction with severely impaired diffusing capacity. Compared with prior testing June 2022 the FEV1 and FVC are downtrending. Labs, Microbiology and Imaging: I personally reviewed relevant laboratory, microbiologic and radiology results which were significant for: Chest CT 09/14/2020 images received and reviewed, severe emphysema, granulomatous and calcified mediastinal and hilar lymph nodes, stable single 5 mm non- calcified RML lung nodule, multifocal inflammatory findings consistent with pneumonia Chest CT 09/15/2021: Stable 5 mm RML nodule, small calcified lung granulomas, moderate emphysema, some evolved scarring from prior pneumonias CXR 05/23/2022: hyperexpanded, possible pulmonary edema, no focal process CXR 12/18/2022: IMPRESSION 1. Bibasilar atelectasis and subsegmental atelectasis versus scarring in the right midlung. 2. No confluent airspace consolidation or effusions. 3. Pulmonary vascular congestion. No overt pulmonary edema. Labs 11/2022: Hgb 16.3, Eosinophils 100, VBG 7.28/68, Cr 0.72, CO2 on BMP normal 25, LFTs wnl Immunization History: Flu vaccine: COVID-19 vaccine: has received primary series Pneumovax: Prevnar-13: Impression and Recommendations: Garret Barros is a 48 y.o. man with GOLD stage D COPD with emphysema and possible asthma-COPD overlap, ongoing cigarette and prior marijuana smoke exposure, persistent severe airflow obstruction (FEV1 16% predicted in 2022), oxygen dependence, frequent acute on chronic respiratory exacerbations and hospitalizations for COPD exacerbations and pneumonias, who continues to report severe dyspnea and daily respiratory symptoms. Since his last visit he has had a couple hospitalizations, details of which are unclear, records are being requested. He has some subjective improvement on chronic daily 10 mg prednisone which we will continue. Risks/benefits of chronic prednisone use have been discussed. He is prescribed triple inhaled therapy, currently taking flovent and short acting albuterol; strongly recommended he restart LAMA/LABA therapy with anoro ellipta now. I think it is difficult for himto track response to inhalers, but do believe that LAMA/LABA therapy may reduce risk for further exacerbations and could improve respiratory symptoms. He is on supplemental oxygen, 4-5L NC O2 with ambulation based on most recent in-office testing, 3 at rest, strongly encouraged to use with all activity. VBG last year was notable for some acute hypercarbia, labs not strongly suggestive of chronic hypercarbia at this time, though he is at risk for developing this. We will consider reassessment for hypercarbia later this year. Tobacco cessation could decrease frequency of respiratory flares, and I again counseled him on the importance of all tobacco cessation. He expresses an intent to quit but has struggled a lot with this over the past few years. I think he could benefit a lot from pulmonary rehab; again discussed, and he is open to a referral to pulm rehab at [facility] which I am placing. We have previously discussed the possibility of pursuing endobronchial valve placement for emphysema; if he is interested in this will need to participate in pulmonary rehab first. CT imaging August 2021 demonstrated one stable small (5 mm) pulmonary nodule, and some evolution of pulmonary scarring in areas of previous pneumonia, but no new acute process. He will qualify for lung cancer screening CTs when he turns 53. We will request any updated imaging from [facility]. I did discuss his severe lung disease and management with his PCP Dr. Castaneda following his last visit; Dr. Castaneda is aware of treatment recommendations, and of Mr. Barros's struggle to maintain his respiratory health, and corroborated that Mr. Barros has had ongoing difficulty with self care. I encouraged him to let me know if there are clinical changes or concerns that we can further help with. Summary Recommendations: - continue prednisone 10 mg po daily, prescribed - Continue current flovent 220 two puffs BID, combivent PRN, albuterol as needed - restart Anoro Ellipta 1 puff daily - Continue supplemental oxygen use, 3 L at rest, 5 L with ambulation, encouraged to use consistently - complete and sustained tobacco cessation again strongly advised - Referral to pulmonary rehab again placed, to go to [facility] - repeat nathaly/DLCO with next visit Follow-up with in-office visit in 6 months Thank you for involving me in Mr. Barros's care. Please feel free to contact me with any further questions or concerns. I personally spent 26 minutes of this encounter with the patient discussing their pulmonary diseaseand treatment recommendations as outlined in my assessment and plan above. This visit involved a total of 32 minutes of clinical time on day of visit. This visit included 4 minutes of tobacco cessation counseling. Hetal Ojeda MD [facility] PULMONOLOGY AT [facility] [address] Dept: [phone] Loc: [phone] documented in this encounter Plan of Treatment Upcoming Encounters Date Type Department Care Team (Late st Contact Info) Description 03/18/2024 8:30 AM EST Appointment [place] [address] 03/18/2024 9:30 AM EST Office [place] [address] Hetal Ojeda MD [facility] [address] [place] [address] Scheduled Orders Name Type Priority Associated Diagnoses Orde r Schedule Pulmonary Function Testing PFT Routine COPD, very severe Expected: 12/25/2023, Expires: 06/25/2024 Scheduled Referrals Name Type Priority Associated Diagnoses Orde r Schedule Referral to Pulmonary Rehab Outpatient Referral Routine COPD, very severe Ordered: 06/26/2023 documented as of this encounter Visit Diagnoses Diagnosis COPD, very severe Chronic airway obstruction, not elsewhere classified Asthma-COPD overlap syndrome Dependence on supplemental oxygen Cigarette nicotine dependence with other nicotine-induced disorder documented in this encounter Care Teams Brand Ambassador Promotional Model Relationship Specialty Start Date End Date Travis Castaneda MD [address] [place] [address] PCP - General Internal Medicine 10/29/18 09/27/23 documented as of this encounter
--- OUTSIDE RECORDS SUMMARY | 2024-02-29 08:58 | XMS_ITS | Encounter Summary ---
Author Organization [facility] Address [facility] [place] [address] Care Team Providers Care Heel Gouger Name Role Phone Travis Castaneda MD Primary Care Provider [phone] Reason for Visit * Reason Onset Date Comments COPD 09/13/2023 Shortness of Breath 09/13/2023 Encounter Details Date Type Department Care Team (Late st Contact Info) Description 09/13/[address] [facility] [place] [phone] Dawood Leyva RN COPD; Shortness of Breath Social History Tobacco Use Types Packs/Day Years Used Date Smoking Tobacco: Some Days Cigarettes 0.3 30 Smokeless Tobacco: Never Comments:1 pack last about 1 0 days; previously was 2 ppd- one pack lasts a month Alcohol Use Standard Drinks/Week Comments Not Currently 0 (1 standard drink = 0.6 oz pur e alcohol) [facility] Inpatient Questions Answer Date Recorded Does [...] Telephone Encounter - Dawood Leyva RN - 09/14/2023 8:51 AM EDT RN called back to patient and was able to speak to patient directly. Patient stated that he has improved from yesterday. I'm still just trying to breathe. RN advised that per Dr. Ortiz, he shouldpresent to ED. Patient verbalized agreement to plan. RN reviewed daily prednisone prescription and pricing on Anoro Ellipta. Patient was not pleased with issues of cost of medications. Forwarding to Dr. Ortiz for signature on needed daily PO prednisone prescription. CC'ing pulleonora sec to request scheduling for follow up appointment. * Telephone Encounter - Dawood Leyva RN - 09/13/2023 1:07 PM EDT RN called back and spoke to patient. Patient was exceedingly difficult to understand due to background noise and mumbling. Patient attempted to turn down background noise. Patient pressed several buttons on the phone and then disconnected the call on initial call, and second call hung up on RN. Patient disconnected on second call. Positive Symptoms: + Shaking like crazy + Fever (Resolved) + Sinus congestion + Chest congestion + Thickened yellow secretions with foul taste + Junky cough appreciated over phone + Decreased exercise tolerance + Headache from coughing Denies: - Active fever Notes: Patient stated that he needed to make appointment with her as soon as possible with Dr. Ojeda. RN explained that Dr. Ojeda was on maternity leave for several months, and a covering provider could be contacted. Patient states I can't do it, I'm not going to make it, and stated further I can't breathe. Not getting enough air in, and feels like he is being suffocated. Patient reports increased cough with difficulty mobilizing secretions, which in turn causes a headache. What is able to mobilize is a dark yellow color with foul taste. He had a fever days ago, but now is afebrile. He notes shaking as well, but did not elaborate. Patient's oxygenation at time of call was 99% on 5L per home pulse oximeter. Increased cough, trying to mobilize secretions, causes headache. Patient states that he runs out of oxygen getting to the bathroom, and he states that he is using his oxygen to get there. Medication and Therapy Review: Patient confirmed using 5L of oxygen with ambulation, and states that he is now wearing his oxygen , which he does not like. Plan per Chart Review: Summary Recommendations: - continue prednisone 10 mg [...] pulmonary rehab again placed, to go to [facility] - repeat nathaly/DLCO with next visit Patient notes that he has NOT started Anoro Ellipta, has not been able to afford this medication. States that he has insurance issue as well. He states that there is are problems getting to pharmacy.He notes that he has no prednisone tablets on hand for daily dosing. Has no prednisone on hand. Advised to proceed to ED, patient refused, stating that he feels that he gets poor care and sent out earlier than ready from his local ED. They're useless. RN attempted to men's swim coach on purse lip breathing, but patient became silent upon education and terminated call. Plan: RN to forward to covering provider, with prednisone prescription for daily dosing. RN to contact pharmacy to inquire into pricing of inhalers. Addendum: Anoro Ellipta will go through his insurance, with OOP cost of $4.60 or less, per [facility]. * Telephone Encounter - Dawood Leyva RN - 09/13/2023 12:54 PM EDT Copied from [facility] #[id number]. Topic: Specialty Dept CRMs - Triage >> September 12, 2023 4:27 PM summer wrote: Triage Message Specialist: Rusty Relationship (if other than patient-full name): Garret, Patient Symptom: SOB Has patient experienced symptom before Yes If patient has experienced symptom before, when was the last time this occurred On going Is patient currently having symptom Yes When did symptom begin A couple months Additional Comments: Patient called stating he needs to make an appointment ABNER because he doesn'tfeel like he is going to make it much longer. States his breathing is getting worse and worse and is having shortness of breath. States he is gasping for air even when he is using oxygen and his breathing treatments. States he is having a hard time quitting smoking but knows he has to. States he issmoking less because he can't smoke anymore at this point. Please call to discuss. documented in this encounter Plan of Treatment Upcoming Encounters Date Type Department Care Team (Late st Contact Info) Description 03/18/2024 8:30 AM EST Appointment [place] [address] 03/18/2024 9:30 AM EST Office [place] [address] Hetal Ojeda MD [facility] [place] [address] documented as of this encounter Visit Diagnoses Diagnosis Asthma-COPD overlap syndrome documented in this encounter Care Teams Heel Gouger Relationship Specialty Start Date End Date Travis Castaneda MD [address] [place] [address] PCP - General Internal Medicine 10/29/18 09/27/23 documented as of this encounter
--- OUTSIDE RECORDS SUMMARY | 2024-02-29 08:58 | XMS_ITS | Encounter Summary ---
Author Organization [facility] Address [facility] [place] [address] Care Team Providers Care Fish Fryer Name Role Phone Travis Castaneda MD Primary Care Provider [phone] Encounter Details Date Type Department Care Team (Latest Contact Info) Description 06/26/2023 Travel Social History Tobacco Use Types Packs/Day Years Used Date Smoking Tobacco: Some Days Cigarettes 0.3 30 Smokeless Tobacco: Never Comments:1 pack last about 1 0 days; previously was 2 ppd- one pack lasts a month Alcohol Use Standard Drinks/Week Comments Not Currently 0 (1 standard drink = 0.6 oz pur e alcohol) [facility] Inpatient Questions Answer Date Recorded Does [...] 03/18/2024 8:30 AM EST [place] [address] 03/18/2024 9:30 AM EST [place] [phone] Hetal Ojeda MD [facility] [place] [address] documented as of this encounter Visit Diagnoses Not on filedocumented in this encounter Care Teams Fish Fryer Relationship Specialty Start Date End Date Travis Castaneda MD [address] [place] [address] PCP - General Internal Medicine 10/29/18 09/27/23 documented as of this encounter
--- OUTSIDE RECORDS SUMMARY | 2024-02-29 08:58 | XMS_ITS | Encounter Summary ---
Author Organization [facility] Address [facility] [place] [address] Care Team Providers Care Infusion Nurse Name Role Phone Travis Castaneda MD Primary Care Provider + [phone] Reason for Visit * Reason Onset Date Comments Oxygen Dependence 01/20/2023 Desaturation Encounter Details Date Type Department Care Team (Late st Contact Info) Description 01/20/2023 Telephone Pulmonology at [facility] [place] [phone] Dawood Leyva RN Oxygen Dependence (Desaturation) Social History Tobacco Use Types Packs/Day Years Used Date Smoking Tobacco: Some Days Cigarettes 0.3 30 Smokeless Tobacco: Never Comments:1 pack last about 1 0 days; previously was 2 ppd- one pack lasts a month Alcohol Use Standard Drinks/Week Comments Not Currently 0 (1 standard drink = 0.6 oz pur e alcohol) [facility] Inpatient Questions Answer Date Recorded Does Anyone [...] Telephone Encounter - Dawood Leyva RN - 01/20/2023 12:13 PM EDT RN called back to connect with Garret and was able to speak to him directly. Patient stated that he was having breathing issues. He notes that it feels that he is getting worse and worse by the day. He notes that he is having difficulty keeping his oxygen levels in the 90's. Positive Symptoms: + Productive Cough with difficulty expectorating secretions + Yellow-brown secretions. + Oxygen saturations in 80's at rest while on 3-3.5 L. + Can't get no air into my lungs. + Lethargy Denies: - Chest tightness. - Fever - [place] - Anosmia - GI upset - No loss of appetite. Notes: Patient notes that he was seen today at a clinic, to discuss getting a personal healthcare applications analyst to assist with his daily activities. He was referred for this by his PCP. Medication and Therapy Review: Patient stated that he had done everything to get his oxygenation levels back up to adequate levels, but notes that did not increase his oxygen beyond 3.5L. Patient states that he is using his DuoNeb nebulizer medication 6-8 times a day. Patient notes thatis not currently taking prednisone, as he ran out. RN reviewed his last prescription on file, showing that patient should have one refill remaining. Urged patient to contact pharmacy for refill. Patient states that he is taking both his Anoro and Flovent inhalers. This is counter to what post-discharge notes state. Plan: Patient advised to return to nearest ED for assessment and intervention. Patient rebutted that the ED would do nothing different than what he is doing at home currently. RN stressed that ED would melba patient and could help with oxygen adjustment for needs. Patient agreed to be seen at [facility] ED. Patient agreed that his housemates would transport him to [facility]. Patient in need of follow up, last office visit was on 12/12/2022, but patient was seen in PFT and not seen in clinic as he was transported to the ED. SC message sent to Pulm Sec team for scheduling. * Telephone Encounter - Dawood Leyva RN - 01/20/2023 9:37 AM EDT RN rec'd notes from 4-week post discharge follow up assessment by Viv Crystal. Of note, patient's oxygen was not WNL. RN called out to Garret, but was notified by male speaker that Garret was not available as he had gone to the clinic. RN was notified that Garret should have been back by now. RN was advised to call back later in day, but message would be delivered to patient to call RN back. Left RN direct number for return of contact. Will attempt to call back. documented in this encounter Plan of Treatment Upcoming Encounters Date Type Department Care Team (Late st Contact Info) Description 03/18/2024 8:30 AM EST Appointment [place] [address] 03/18/2024 9:30 AM EST Office [place] [address] Hetal Ojeda MD [facility] [place] [address] documented as of this encounter Visit Diagnoses Not on filedocumented in this encounter Care Teams Infusion Nurse Relationship Specialty Start Date End Date Travis Castaneda MD [address] [place] [address] PCP - General Internal Medicine 10/29/18 09/27/23 documented as of this encounter
--- OUTSIDE RECORDS SUMMARY | 2024-02-29 08:58 | XMS_ITS | Encounter Summary ---
Author Organization [facility] Address [facility] [place] [address] Care Team Providers Care Medical Transcription Name Role Phone Travis Castaneda MD Primary Care Provider [phone] Encounter Details Date Type Department Care Team (Late st Contact Info) Description 09/18/2023 [place] [phone] Fuad Reynolds MD [facility] [place] [address] Asthma-COPD overlap syndrome; COPD with exacerbation Social History Tobacco Use Types Packs/Day Years Used Date Smoking Tobacco: Some Days Cigarettes 0.3 30 Smokeless Tobacco: Never Comments:1 pack last about 1 0 days; previously was 2 ppd- one pack lasts a month Alcohol Use Standard Drinks/Week Comments Not Currently 0 (1 standard drink = 0.6 oz pur e alcohol) [facility] Inpatient Questions Answer Date Recorded [...] 03/18/2024 8:30 AM EST [place] [phone] 03/18/2024 9:30 AM EST [place] [address] Hetal Ojeda MD [facility] [place] [address] documented as of this encounter Results * XR Chest PA & Lateral (Generic) (09/19/2023 1:13 PM EDT) WORKSTATION ID [id number] RAD Anatomical Region Laterality Modality Chest N/A Digital Radiogra phy Impressions 09/19/2023 4:31 PM EDT COPD without acute changes Thank you for letting us participate in the care of this patient. ??If you are a health care provider and have any questions regarding this report, please contact the number below. ??For patients who have questions please contact the health urgent care technician that requested your imaging first. ? Narrative [...] patients who have questions please contactthe health urgent care technician that requested your imaging first. Electronically signed by: Nedra Myers MD, [facility]([phone]), at 09/19/2023 4:31 PM Fuad Tamayo MD IMG DX ORDERABLES documented in this encounter Visit Diagnoses Diagnosis Asthma-COPD overlap syndrome COPD with exacerbation Obstructive chronic bronchitis with exacerbation Asthma-COPD overlap syndrome COPD with exacerbation Obstructive chronic bronchitis with exacerbation documented in this encounter Care Teams Medical Transcription Relationship Specialty Start Date End Date Travis Castaneda MD [address] [place] [address] PCP - General Internal Medicine 10/29/18 09/27/23 documented as of this encounter
--- OUTSIDE RECORDS SUMMARY | 2024-02-29 08:58 | XMS_ITS | Encounter Summary ---
Author Organization [facility] Address [facility] [place] [address] Care Team Providers Care Financial Sales Manager Name Role Phone Travis Castaneda MD Primary Care Provider [phone] Reason for Visit * Reason Onset Date Comments Follow-up 12/22/2022 48 hour call pos t hosp discharge for COPD Encounter Details Date Type Department Care Team (Late st Contact Info) Description 12/22/2022 Telephone Hospitalist [facility] [place] [phone] Viv Crystal CMA Follow-up (48 hour call post hosp discharge for COPD) Social [...] Telephone Encounter - Viv Crystal CMA - 12/22/2022 12:13 PM EDT COPD patient- Discharged: 12/20/2022 Summary of events post discharge: Patient was discharged on 12/20/22 after having been hospitalized with COPD and severe asthma. Patient was discharged on albuterol sulfate 90 mcg, fluticason propionate 220 mcg, umeclidinium brm/vilanterol tr 62.5-25 mcg inhalers and prednsione steroid. Patient was reminded of follow up with PCP on 12/26/22. On my phone call 12/22/22, 48 hours post hospital discharge patient says he feels so- so. Patient states he doesn't feel good, his whole body hurts, and he is having issues swallowing. Patient states oxygen saturation has been in the 70s and 80s.Patient states he is feeling anxiety and feels like he may need to be at the hospital again. Patient wasn't able to obtain all of his medicationsdue to finances. Telephone call placed to follow up on patient 48 hours post hospital visit. The following questions were asked: How are you doing compared to the last day of the hospital? Patient states he feels so-so, doesn't feel good. Patient states his whole body hurts and he can't swallow anything How is your SOB? Pt rated 1/5 Use a 1-5 scale: 1 being the worst its been and 5 being the best it has been If on , Yes [x] No [] how much are you on? 4 liters of oxygen Have you checked your O2 sat on room air? Yes [x] No [] If yes 70s% and 80% at rest on oxygen How is your energy level? Patient rated 0/5 Use a 1-5 scale: 1 being the worst its been and 5 beingthe best it has been Date of last spirometry: 09/02/22 (If none, then no spirometry data) Spirometry results: FVC 1.48 FEV1 0.64 FEV1/FVC 43% Did you cloth picker your meds? Yes, but not all due to finances Steroid dosing: Prednisone taper (continue on 10mg) Are you taking your meds? Yes [x] No [] Patient states he can't afford all of his inhalers, fixed income What is your weight? N/a 12/22/22 Do you know which visiting services and providers you will see next? No [facility] PCP follow up on 12/26 [facility] Agency: none Additional notes: Patient feeling anxiety and discussing going back to the hospital. documented in this encounter Plan of Treatment Upcoming Encounters Date Type Department Care Team (Late st Contact Info) Description 03/18/2024 8:30 AM EST Appointment [place] [address] 03/18/2024 9:30 AM EST Office [place] [address] Hetal Ojeda MD [facility] [place] [address] documented as of this encounter Visit Diagnoses Not on filedocumented in this encounter Care Teams Financial Sales Manager Relationship Specialty Start Date End Date Travis Castaneda MD [address] [place] [address] PCP - General Internal Medicine 10/29/18 09/27/23 documented as of this encounter
--- OUTSIDE RECORDS SUMMARY | 2024-02-29 08:58 | XMS_ITS | Encounter Summary ---
Author Organization [facility] Address [facility] [place] [address] Care Team Providers Care Ramp Agent Name Role Phone Travis Castaneda MD Primary Care Provider [phone] Reason for Visit * Auth/Cert (Routine) Specialty Diagnoses / Procedures Referred By Gulshan t Referred To Contact Diagnoses COPD exacerbation Cornelio Perdomo MD [facility] [place] [address] [facility] Referral ID Status Reason Start Date Expiration Date Visits Re quested Visits Authorized [id number] 1 1 Encounter Details Date Type Department Care Team (Latest Contact Info) Description 09/19/2023 1:00 PM EDT Office Visit Pulmonology at [place] [phone] Fuad Reynolds MD [facility] [place] [address] Bronchiectasis with acute exacerbation; COPD, very severe Social History Tobacco Use Types Packs/Day Years Used Date Smoking Tobacco: Some Days Cigarettes 0.3 30 Smokeless Tobacco: Never Comments:1 pack last about 1 0 days; previously was 2 ppd- one pack lasts a month Alcohol Use Standard Drinks/Week Comments Not Currently 0 (1 standard drink = 0.6 oz pur e alcohol) [facility] Utilities Answer Date Recorded In the [...] any time in the past 12 m [facility] [place], were you homeless or living in a intermediate (including now)? No 09/20/2023 [facility] IPV Inpatient [...] Sign Reading Time Taken Comments Blood Pressure 153/107 09/19/2023 1:41 PM EDT Pulse 118 09/19/2023 1:41 PM EDT Temperature 35.9 ??C (96.6 ??F) 09/19/2023 1:18 PM ED T Respiratory Rate 14 09/19/2023 1:18 PM EDT Oxygen Saturation 90% 09/19/2023 1:41 PM EDT Inhaled Oxygen Concentration - - Weight 81.6 kg (180 lb) 09/19/2023 1:18 PM EDT Height 175.3 cm (5' 9) 09/19/2023 1:18 PM EDT Body Mass Index 26.58 09/19/2023 1:18 PM EDT documented in this encounter Progress Notes * Faud Reynolds MD - 09/19/2023 1:00 PM EDT Images from the original note were not included. [facility] Section of Pulmonary and Critical Care Medicine Outpatient Follow-up Follow-up 48 y.o. male with history of severe asthma-COPD overlap syndrome, oxygen dependency, prior pulmonary nodules, ongoing tobacco use, in the setting of anxiety, history of substance abuse in remission, hospitalization for COPD exacerbation and constipation Jun 2022, who was last seen in pulmonary clinic by Dr. Ojeda in 06/2023. He continues to have severe shortness of breath with exertion, for instance walking a short distance to the mailbox leaves him gasping and he requires a nebulizer treatment. He has had multiple admissions and trips to the ED at [facility], and last week he was brought to the [facility] ED by EMS after several apparent episodes of syncope. He apparently reported5 or 6 episodes where he passed out, and did not have any preceding symptoms, and woke up on the ground after each event. He apparently has had nonepileptic seizures in the past, upon evaluation hehad no evidence of a cardiac event, though his findings were suggestive of a COPD exacerbation. He w as found to have an oxygen saturation of 92% on 3 L/min with a venous blood gas demonstrating acuteon chronic respiratory acidosis with hypercarbia. He had no infiltrate on chest film. His serum bicarbonate was 36 and he was treated with nebulizers, steroids, and discharged on a taper with instructions to be seen in pulmonary clinic urgently. He has a chronic cough, generally productive of purulent sputum. He says that he is on 2 L/min of oxygen (questionable compliance) though the notes from [facility] indicate that he should be on 3 L/min. He continues to smoke but he states that he is not smoking much because he is too dyspneic, and 1 pack usually lasts for more than a week of late. He is on 20 mg of prednisone today and scheduled to drop to 10 mg a day tomorrow (he is on 10 mg a day at baseline). He remains on Flovent, Combivent, DuoNebs, and he had been prescribed Anoro Ellipta but hestopped this, feeling it was not helping. Current Medications at Start of Encounter: Outpatient Medications Prior to Visit Medication Sig Dispense Refill predniSONE (Deltasone) 10 mg tablet Take 1 tablet by mouth daily. 90 tablet 1 Anoro Ellipta 62.5-25 mcg/actuation Disk with Device Inhale 1 Inhalation into the lungs daily. 60 each 11 polyethylene glycoL (Miralax) 17 gram oral powder packet Take 17 g by mouth 2 times daily. Hold a dose if you have three or more bowel movements a day 14 each 0 senna-docusate (Pericolace) 8.6-50 mg Tablet Take 2 tablets by mouth 2 times daily. [address] (Cymbalta) [address] capsule [...] mouth 3 times daily. 90 tablet 0 bisacodyl EC (Dulcolax) 5 mg Tablet, Delayed Release (E.C.) Take 1 tablet by mouth daily as needed for Constipation. (Patient not taking: Reported on 06/26/2023) 30 tablet 0 lisinopriL (Prinivil;Zestril) 20 mg Tablet Take 40 mg by mouth daily. Flovent HFA 220 mcg/actuation HFA Aerosol Inhaler Inhale 2 puffs into the lungs 2 times daily. methadone (Dolophine) 10 mg/mL Concentrate Take 132 mg by mouth daily. Per methadone clinic, Per patient report, gets take home doses, [facility] [phone] last dose 12/12/22 per patient LORazepam (ATIVAN) [...] times daily (after meals).) 60 capsule 0 No facility-administered medications prior to visit. Physical Examination: BP (!) 153/107 (BP Location (NBP): Left arm, Patient Position: Sitting, BP Cuff Sizes: Adult (25-34cm)) Pulse (!) 118 Temp 35.9 ??C (96.6 ??F) (Temporal) Resp 14 Ht 175.3 cm (5' 9) Wt 81.6 kg (180 lb) SpO2 90% BMI 26.58 kg/m?? GEN: NAD, interactive, conversational HEENT: MMM, neck supple CV: RRR, normal S1, S2, no murmur PULM: normal work of breathing, good air movement, slight end exp wheezing ABD: soft, nontender, no organomegaly MSK: no joint swelling, R leg amputation, left leg with minimal edema; easily ambulatory NEURO: AAO, voice is clear Prior pulmonary Function Test Results: Date FVC FEV1 Ratio DLCO 02/13/2020 1.59 L (32% pred) 1.17 L [...] 2022 the FEV1 and FVC are downtrending. Chest CT 09/14/2020 images received and reviewed, [...] vascular congestion. No overt pulmonary edema. Labs 09/19/2023: Latest Reference Range & Units 09/19/23 16:00 09/19/23 16:10 WBC 4.0 - 9.5 x10(3)/mcL 9.5 RBC 4.58 - 5.54 x10(6)/mcL 5.20 Hemoglobin 13.7 - 16.5 g/dL 16.2 Hgb Blood Gas 13.7 - 16.5 g/dL 17.4 (H) Hematocrit 40.5 - 48.5 % 51.1 (H) MCV 82.9 - 93.1 fL 98.3 (H) MCH 27.5 - 32.1 pg 31.2 MCHC 32.0 - 35.7 g/dL 31.7 (L) RDWSD 36.0 - 45.0 fL 58.0 (H) RDWCV 11.4 - 13.8 % 15.9 (H) Platelets 145 - 357 x10(3)/mcL 224 MPV 7.6 - 12.9 fL 10.1 nRBC % Auto % 0.0 nRBC Abs Auto 0.000 - 0.000 x10(3)/mcL 0.000 Neutr Abs (ANC) 1.70 - 6.10 x10(3)/mcL 8.07 (H) Neutrophils % % 85.2 Immature Gran % % 0.50 Lymphocytes % % 8.2 Monocytes % % 5.4 Eosinophils % % 0.3 Basophils % % 0.4 Ariana Gran Abs 0.00 - 0.04 x10(3)/mcL 0.05 (H) Lymphocytes Abs 0.9 - 3.2 x10(3)/mcL 0.8 (L) Monocyte Abs 0.3 - 0.9 x10(3)/mcL 0.5 Eosinophils Abs 0.0 - 0.4 x10(3)/mcL 0.0 Basophils Abs 0.0 - 0.1 x10(3)/mcL 0.0 Latest Reference Range & Units 09/19/23 16:10 pH Neo 7.32 - 7.42 7.37 pCO2 Neo 41 - 51 mmHg 59 (H) pO2 Neo 25 - 40 mmHg 45 (H) HCO3 Neo mmol/L 33.3 BE Neo mmol/L 8.0 O2HB Neo % 75.5 COHB Neo % 4.5 METHB Neo <=1.5 % 0.3 BGas Source Venous 09/19/2023 Lower Respiratory Culture Abnormal Many Haemophilus influenzae : Beta-lactamase result predicts organism is susceptible to ampicillin and penicillin. Rare Beta Hemolytic Streptococci, Group A Many mixed bacterial morphotypes suggestive of normal upper respiratory bimal Gram Stain Abnormal Many Neutrophils seen Few squamous epithelial cells seen Many mixed bacterial morphotypes suggestive of normal upper respiratory bimal Organism Haemophilus influenzae Abnormal Organism Beta Hemolytic Streptococci, Group A Abnormal Impression and Recommendations: Garret Barros is a [...] his last visit he has had a multiple trips to [facility], and it appears that his overall compliance is pretty spotty. I recommended he remain on his chronic daily 10 mg prednisone, and finish a course of doxycycline which had recently been started on him. He is prescribed supplemental oxygen, 4-5L NC O2 with ambulation, 3 at rest, strongly encouraged touse with all activity, though his adherence with this may be suboptimal. He was again counseled on the importance of complete tobacco cessation, which he claims he is trying to accomplish. Follow-up in 3 months with repeat PFTs. Total visit time: 30 minutes during which I provided medical services that are part of ongoing carefor the patient's serious/complex condition. documented in this encounter Plan of Treatment Upcoming Encounters Date Type Department Care Team (Late st Contact Info) Description 03/18/2024 8:30 AM EST [place]ointment [place] [address] 03/18/2024 9:30 AM EST [place] [address] Hetal Ojeda MD [facility] [place] [address] Scheduled Orders Name Type Priority Associated Diagnoses Orde r Schedule AFB culture Sputum Expectorated Microbiology Routine Bronchiectasis with acute exacerbation Expected: 09/19/2023 (Approximate), Expires: 09/18/2024 documented as of this encounter Procedures Procedure Name Priority Date/Time Associated Diagnosis Comments LOWER RESPIRATORY CULTURE Routine 09/19/2023 3:40 PM EDT Bronchiectasis with acute exacerbation documented in this encounter Results * (ABNORMAL) Lower Respiratory Culture Sputum Expectorated (09/19/2023 3:40 PM EDT) Lower Respiratory Culture Many Haemophilus influenzae : Beta-lactamase result predicts organism is susceptible to ampicillin and penicillin. Rare Beta Hemolytic Streptococci, Group A Many mixed bacterial morphotypes suggestive of normal upper respiratory bimal (A) [facility] Gram Stain Many Neutrophils seen Few squamous epithelial cells seen Many mixed bacterial morphotypes suggestive of normal upper respiratory bimal (A) [facility] Organism Haemophilus influenzae(A) [facility] Organism Beta Hemolytic Streptococci, Group A(A) [facility] Sputum Expectorated 09/19/19 3:40 PM EDT 09/19/2023 3:40 PM EDT Narrative Resulting Agency Comment Spec In Lab Fuad Tamayo MD MICROBIOLOGY - GENE RAL ORDERABLES [facility] [place] [address] documented in this encounter Visit Diagnoses Diagnosis Bronchiectasis with acute exacerbation COPD, very severe Chronic airway obstruction, not elsewhere classified documented in this encounter Care Teams Ramp Agent Relationship Specialty Start Date End Date Travis Castaneda MD [address] [place] [address] PCP - General Internal Medicine 10/29/18 09/27/23 documented as of this encounter
--- OUTSIDE RECORDS SUMMARY | 2024-02-29 08:58 | XMS_ITS | Encounter Summary ---
Author Organization [facility] Address [facility] [place] [address] Care Team Providers Care Occupational Health Technician Name Role Phone Travis Castaneda MD Primary Care Provider + [phone] Encounter Details Date Type Department Care Team (Late st Contact Info) Description 09/18/2023 Telephone Pulmonology at [facility] [place] [phone] Stefanie Paul RN Social History Tobacco Use Types Packs/Day Years Used Date Smoking Tobacco: Some Days Cigarettes 0.3 30 Smokeless Tobacco: Never Comments:1 pack last about 1 0 days; previously was 2 ppd- one pack lasts a month Alcohol Use Standard Drinks/Week Comments Not Currently 0 (1 standard drink = 0.6 oz pur e alcohol) [facility] Inpatient Questions Answer Date Recorded Does Anyone [...] encounter Miscellaneous Notes * Telephone Encounter - Germain Valencia, JOSE - 09/18/2023 1:58 PM EDT Spoke to patient by request of Pulmonology RN, Stefanie Paul who paged [phone] as Pt had reported to another staff over the phone that he was experiencing SOB and suicidal ideation. She had tried to reach out to him via telephone but he did not answer. TW then called him and he denied SI and was confused about why he was being called by a psychiatricprovider. He stated he is experiencing COB, chest tightness, and feels like he has pneumonia and hehas been calling his dental ceramist helper dept and asking for help, and states (profanely), that he is then told to go to the ED- which for him, the closest ED is [facility]. He states when he goes there they just put him on wall O2 for a little while until his SATs improve and then they discharge him and he can't breathe by the time he reaches the parking lot. He clarified to me that he is not suicidal andhad not reported he was suicidal, but he had told staff member at dental ceramist helper office (when calling for c/o SOB) I'll before I go back to the ED- as in, he feels like his medical condition (stage 4 COPD) is killing him because he smokes like a uoj-dt-[id number]-bitch and does not find [facility] ED prosper in any way helpful for COPD. He denied any concern of self harm or passive SI r/t medication condition, did endorse a history of anxiety/ depression but denied concerns today, and stated, I wouldnever hurt myself. I just have pneumonia and when they tell me to go to the ED it doesn't do anything, I just need to be admitted into a hospital and not just be thrown out- I need to be admitted andget medicine run through my body so I can breathe . Pt is future-oriented, and appropriately frustrated given context of his situation as his car is [employer] and he has no way to drive himself to for medical care, and an ambulance would only bring him back to [facility], though he would prefer to be seen at for concerns of pneumonia. I reached back out to Stefanie Paul RN, to call patient back for concerns of his COPD as there is no SI and it appears his comment was taken out of context. I also requested if she is able to find a way forhim to transport to ED, then to please alert us so we can make sure these comments are not takenout of context when/if he presents to ED as it appeared to frustrate the patient who is already SOBto have to then explain it to myself for clarification. documented in this encounter Plan of Treatment Upcoming Encounters Date Type Department Care Team (Late st Contact Info) Description 03/18/2024 8:30 AM EST Appointment [place] [address] 03/18/2024 9:30 AM EST Office [place] [address] Hetal Ojeda MD [facility] [place] [address] documented as of this encounter Visit Diagnoses Not on filedocumented in this encounter Care Teams Occupational Health Technician Relationship Specialty Start Date End Date Travis Castaneda MD [address] [place] [address] PCP - General Internal Medicine 10/29/18 09/27/23 documented as of this encounter
--- OUTSIDE RECORDS SUMMARY | 2024-02-29 08:58 | XMS_ITS | Encounter Summary ---
Author Organization [facility] Address [facility] [place] [address] Care Team Providers Care Cell Support Operator Name Role Phone Travis Castaneda MD Primary Care Provider + [phone] Encounter Details Date Type Department Care Team (Latest Contact Info) Description 09/19/2023 Travel Social History Tobacco Use Types Packs/Day Years Used Date Smoking Tobacco: Some Days Cigarettes 0.3 30 Smokeless Tobacco: Never Comments:1 pack last about 1 0 days; previously was 2 ppd- one pack lasts a month Alcohol Use Standard Drinks/Week Comments Not Currently 0 (1 standard drink = 0.6 oz pur e alcohol) [facility] Utilities Answer Date Recorded In the [...] No 09/20/2023 Housing Stability Vital Sign Answer Royb e Recorded In the last 12 months, was t here a time when you were not able to pay the mortgage or rent on time? No 09/20/2023 In the past 12 months, how m any times have you moved where you were living? 1 09/20/2023 At any time in the past 12 m [facility], were you homeless or living in a correction (including now)? No 09/20/2023 IPV Inpatient Questions [...] 03/18/2024 8:30 AM EST [place] [address] 03/18/2024 9:30 AM EST [place] [address] Hetal Ojeda MD [facility] [place] [address] documented as of this encounter Visit Diagnoses Not on filedocumented in this encounter Additional Health Concerns Infection Onset Date Last Indicated Resolved Time Rule Out Respiratory 09/19/2023 09/19/2023 024 5:56 PM EDT Rule Out COVID-19 09/19/2023 09/19/2023 09/19/2023 5:56 PM EDT documented as of this encounter Care Teams Cell Support Operator Relationship Specialty Start Date End Date Travis Castaneda MD [address] [place] [address] PCP - General Internal Medicine 10/29/18 09/27/23 documented as of this encounter
--- OUTSIDE RECORDS SUMMARY | 2024-02-29 08:58 | XMS_ITS | Encounter Summary ---
Author Organization [facility] [place] [address] Care Team Providers Care Qa Tech Name Role Phone Travis Castaneda MD Primary Care Provider + [phone] Encounter Details Date Type Department Care Team (Late st Contact Info) Description 09/18/2023 Telephone Pulmonology at [facility] [place] [phone] Stefanie Paul RN Social History Tobacco Use Types Packs/Day Years Used Date Smoking Tobacco: Some Days Cigarettes 0.3 30 Smokeless Tobacco: Never Comments:1 pack last about 1 0 days; previously was 2 ppd- one pack lasts a month Alcohol Use Standard Drinks/Week Comments Not Currently 0 (1 standard drink = 0.6 oz pur e alcohol) [facility] Inpatient Questions Answer Date Recorded [...] encounter Miscellaneous Notes * Telephone Encounter - Stefanie Paul RN - 09/18/2023 2:31 PM EDT Copied from [facility] #[id number]. Topic: Specialty Dept CRMs - Triage >> September 18, 2023 10:57 AM Sophia Walsh wrote: Triage Message Specialist: vivi Relationship (if other than patient-full name): Garret Barros Symptom: Shortness of Breath Has patient experienced symptom before yes If patient has experienced symptom before, when was the last time this occurred 09/15/2023 Is patient currently having symptom yes When did symptom begin ongoing Additional Comments: Patient called and stated they are experiencing shortness of breath. Patient stated they called on 09/15/23 and did go to [facility]. Patient stated as soon as their oxygen level went up, [facility] discharged them. Patient stated they are still experiencing shortness of breath. Please call to assist. >> September 18, 2023 1:08 PM Sera Villegas wrote: Patient is calling to check on the status of this message. He wants to speak to a nurse as soon as possible. documented in this encounter Plan of Treatment Upcoming Encounters Date Type Department Care Team (Late st Contact Info) Description 03/18/2024 8:30 AM EST Appointment [place] [address] 03/18/2024 9:30 AM EST Office [place] [address] Hetal Ojeda MD [facility] [place] [address] documented as of this encounter Visit Diagnoses Not on filedocumented in this encounter Care Teams Qa Tech Relationship Specialty Start Date End Date Travis Castaneda MD [address] [place] [address] PCP - General Internal Medicine 10/29/18 09/27/23 documented as of this encounter
--- OUTSIDE RECORDS SUMMARY | 2024-02-29 08:58 | XMS_ITS | Encounter Summary ---
Author Organization [facility] Address [facility] [place] [address] Care Team Providers Care Prison Warden Name Role Phone Travis Castaneda MD Primary Care Provider [phone] Reason for Visit * Reason Onset Date Comments COPD 09/15/2023 Shortness of Breath 09/15/2023 Encounter Details Date Type Department Care Team (Late st Contact Info) Description 09/15/2023 Telephone Pulmonology at [facility] [place] [phone] Dawood Leyva RN COPD; Shortness of Breath Social History Tobacco Use Types Packs/Day Years Used Date Smoking Tobacco: Some Days Cigarettes 0.3 30 Smokeless Tobacco: Never Comments:1 pack last about 1 0 days; previously was 2 ppd- one pack lasts a month Alcohol Use Standard Drinks/Week Comments Not Currently 0 (1 standard drink = 0.6 oz pur e alcohol) [facility] Inpatient Questions Answer Date Recorded Does [...] Telephone Encounter - Dawood Leyva RN - 09/15/2023 12:47 PM EDT Rec'd page from Eleni Swenson, [phone]), whom had patient on the line. Patient states that he could not breathe, and couldn't confirm if his roommates were able to oyster picker his prescriptions including prednisone and Anoro Ellipta. Patient was advised to present to ED as discussed in previous phone conversations. Patient refused. Patient stated that he needed to be seen in clinic. RN again stressed that due to his complexity and need for intervention, that he was best served by presenting to ED. Patient again refused, statingthat he would only be given a nebulizer and sent home, where he would become symptomatic once again, and create a cycle. Patient stated this about his breathing: It's just bad. Patient was noted to be tachypnic with audible wheezing. I can't even go to the bathroom. It's terrible. He also states that he was in needof IV fluid interventions. Patient stated that he had developed increased intensity headaches, and was not able to check his pulse oximetry, as his pulse oximeter broke. He notes that he also has been passing out with LOC resulting in falls, including breaking his left hand. RN again stressed that he should present to ED. RN offered to call 911 for emergency transport. At that time, patient's roommates had returned, and after consulting with them, he agreed to ambulance transportation to ED. RN called to [place] [address], and was met with dispatch. Report given, [facility] contacted. documented in this encounter Plan of Treatment Upcoming Encounters Date Type Department Care Team (Late st Contact Info) Description 03/18/2024 8:30 AM EST Appoint[place] [address] 03/18/2024 9:30 AM EST [place] [address] Hetal Ojeda MD [facility] [place] [address] documented as of this encounter Visit Diagnoses Not on filedocumented in this encounter Care Teams Prison Warden Relationship Specialty Start Date End Date Travis Castaneda MD [address] [place] [address] PCP - General Internal Medicine 10/29/18 09/27/23 documented as of this encounter
--- OUTSIDE RECORDS SUMMARY | 2024-02-29 08:58 | XMS_ITS | Encounter Summary ---
Author Organization [facility] Address [facility] [place] [address] Care Team Providers Care Investigator Claims Name Role Phone Travis Castaneda MD Primary Care Provider [phone] Reason for Visit * Reason Onset Date Comments Follow-up 01/19/2023 4 week call post hosp discharge for COPD Encounter Details Date Type Department Care Team (Late st Contact Info) Description 01/19/2023 Telephone Hospitalist [facility] [place] [phone] Viv Crystal CMA Follow-up (4 week call post hosp discharge for COPD) [...] Telephone Encounter - Viv Crystal CMA - 01/19/2023 11:31 AM EDT COPD patient- Discharged: 12/20/22 Summary of events post discharge: Patient was [...] obtain all of his medicationsdue to finances. On my call today, 12/29, patient states he still doesn't have the resources to pay for all of his medications. Patient hopes to see a psychiatrist due to anxiety. Patient reports the ativan he was given in the hospital helps him to relax and sleep better and feels improves his breathing overall. Patient stated he is waiting to hear from someone in [facility] for assistance but hasn't heard from them yet. On my call today, 01/19, patient states he still struggles to breathe and it get worse and worse every day. Patient reports it is difficult for him to do daily activities and he feels that he has lostweight. Telephone call placed to follow up on patient four weeks post hospital visit. The following questions were asked: How are you doing compared to the last day of the hospital? Patient states he can't breathe and itsgetting worse How is your SOB? Pt states 2/5 Use a 1-5 scale: 1 being the worst its been and 5 being the best it has been If on , Yes [x] No [] how much are you on? 3.5 liters continuously Have you checked your O2 sat on room air? Yes [] No [x] If yes How is your energy level? Patient reports 1/5 Use a 1-5 scale: 1 being the worst its been and 5 being the best it has been Date of last spirometry: 09/02/22 Spirometry results: FVC 1.48 FEV1 0.64 FEV1/FVC 43% Did you waste picker your meds? yes Steroid dosing: Prednisone taper Are you taking your meds? Yes [x] No [] What is your weight? N/a 01/19 Do you know which visiting services and providers you will see next? No VNA No appts VNA Agency: n/a Additional notes: Will message pulmonology nurse documented in this encounter Plan of Treatment Upcoming Encounters Date Type Department Care Team (Late st Contact Info) Description 03/18/2024 8:30 AM EST Appointment [place] [address] 03/18/2024 9:30 AM EST Office [place] [address] Hetal Ojeda MD [facility] [place] [address] documented as of this encounter Visit Diagnoses Not on filedocumented in this encounter Care Teams Investigator Claims Relationship Specialty Start Date End Date Travis Castaneda MD [address] [place] [address] PCP - General Internal Medicine 10/29/18 09/27/23 documented as of this encounter
--- OUTSIDE RECORDS SUMMARY | 2024-02-29 08:58 | XMS_ITS | Encounter Summary ---
Author Organization [facility] Address [facility] [place] [address] Care Team Providers Care Jute Bag Sewer Name Role Phone Travis Castaneda MD Primary Care Provider [phone] Encounter Details Date Type Department Care Team (Late st Contact Info) Description 07/13/2023 [place] [address] Alda Shah Social History Tobacco Use Types Packs/Day Years Used Date Smoking Tobacco: Some Days Cigarettes 0.3 30 Smokeless Tobacco: Never Comments:1 pack last about 1 0 days; previously was 2 ppd- one pack lasts a month Alcohol Use Standard Drinks/Week Comments Not Currently 0 (1 standard drink = 0.6 oz pur e alcohol) [facility] Inpatient Questions Answer Date Recorded Does [...] 03/18/2024 8:30 AM EST [place] [phone] 03/18/2024 9:30 AM EST [place] [address] Hetal Ojeda MD [facility] [place] [address] documented as of this encounter Visit Diagnoses Not on filedocumented in this encounter Care Teams Jute Bag Sewer Relationship Specialty Start Date End Date Travis Castaneda MD [address] [place] [address] PCP - General Internal Medicine 10/29/18 09/27/23 documented as of this encounter
--- OUTSIDE RECORDS SUMMARY | 2024-02-29 08:58 | XMS_ITS | Encounter Summary ---
Author Organization [facility] Address [facility] [place] [address] Care Team Providers Care Shoemaking Finisher Name Role Phone Travis Castaneda MD Primary Care Provider [phone] Encounter Details Date Type Department Care Team (Late st Contact Info) Description 05/12/2023 Telephone [place] [address] Alda Shah Social History Tobacco Use Types Packs/Day Years Used Date Smoking Tobacco: Some Days Cigarettes 0.3 30 Smokeless Tobacco: Never Comments:1 pack last about 1 0 days; previously was 2 ppd- one pack lasts a month Alcohol Use Standard Drinks/Week Comments Not Currently 0 (1 standard drink = 0.6 oz pur e alcohol) [facility] Inpatient Questions Answer Date Recorded Does [...] 03/18/2024 8:30 AM EST Appointment [place] [phone] 03/18/2024 9:30 AM EST Office [place] [address] Hetal Ojeda MD [facility] [place] [address] documented as of this encounter Visit Diagnoses Not on filedocumented in this encounter Care Teams Shoemaking Finisher Relationship Specialty Start Date End Date Travis Castaneda MD [address] [place] [address] PCP - General Internal Medicine 10/29/18 09/27/23 documented as of this encounter
--- OUTSIDE RECORDS SUMMARY | 2024-02-29 08:58 | XMS_ITS | Encounter Summary ---
Author Organization [facility] Address [facility] [place] [address] Care Team Providers Care Label Tacker Name Role Phone Travis Castaneda MD Primary Care Provider [phone] Reason for Visit * Reason Onset Date Comments Follow-up 12/29/2022 One week call bassem crandall post hosp discharge COPD Encounter Details Date Type Department Care Team (Late st Contact Info) Description 12/29/2022 Telephone Hospitalist [facility] [place] [phone] Viv Crystal, BETH Follow-up (One week call for post hosp discharge COPD) Social History Tobacco Use Types Packs/Day [...] Sign Reading Time Taken Comments Blood Pressure - - Pulse - - Temperature - - Respiratory Rate - - Oxygen Saturation - - Inhaled Oxygen Concentration - - Weight 73.5 kg (162 lb) 01/11/2023 11:00 AM EDT 12/29/22 Height - - Body Mass Index 23.91 12/13/2022 12:09 AM EDT documented in this encounter Miscellaneous Notes * Telephone Encounter - Viv Crystal, [facility] - 12/29/2022 10:45 AM EDT COPD patient- Discharged: 12/20/2022 Summary of [...] is waiting to hear from someone in [facility] for assistance but hasn't heard from them yet. Telephone call placed to follow up on patient one week post hospital visit. The following questions were asked: How are you doing compared to the last day of the hospital? Patient states he feels ok, but having rough times, with tightness while breathing How is your SOB? Pt rated 1/5 Use a 1-5 scale: 1 being the worst its been and 5 being the best it has been If on 02, Yes [x] No [] how much are you on? 5 liters of oxygen, sometimes 3 liters Have you checked your O2 sat on room air? Yes [] No [x] If yes How is your energy level? Patient rated 1/5 Use a 1-5 scale: 1 being the worst its been and 5 beingthe best it has been Date of last spirometry: 09/02/22 (If none, then no spirometry data) Spirometry results: FVC 1.48 FEV1 0.64 FEV1/FVC 43% Did you tack picker your meds? Yes, but not all due to finances Steroid dosing: Prednisone taper (continue on 10mg) Are you taking your meds? Yes [x] No [] Patient states he can't afford all of his inhalers, fixed income What is your weight? 162 lb 12/29/22 Do you know which visiting services and providers you will see next? No VNA VNA Agency: none Additional notes: I will send a message to pulmonology to schedule follow up. documented in this encounter Plan of Treatment Upcoming Encounters Date Type Department Care Team (Late st Contact Info) Description 03/18/2024 8:30 AM EST Appointment [place] [address] 03/18/2024 9:30 AM EST Office Visit [place] [address] Hetal Ojeda MD [facility] [place] [address] documented as of this encounter Visit Diagnoses Not on filedocumented in this encounter Care Teams Label Tacker Relationship Specialty Start Date End Date Travis Castaneda MD [address] [place] [address] PCP - General Internal Medicine 10/29/18 09/27/23 documented as of this encounter
--- OUTSIDE RECORDS SUMMARY | 2024-02-29 08:59 | XMS_ITS | Encounter Summary ---
Author Organization [facility] Address [facility] [place] [address] Care Team Providers Care Hogshead Hooper Name Role Phone Travis Castaneda MD Primary Care Provider + [phone] Encounter Details Date Type Department Care Team (Late st Contact Info) Description 09/02/2022 1:00 PM EDT Office Visit Pulmonology at [facility] [place] [phone] Hetal Ojeda MD [facility] [place] [address] Asthma-COPD overlap syndrome; Dependence on supplemental oxygen; [...] drink = 0.6 oz pur e alcohol) Sex and Gender Information Value Date Recorded Sex Assigned at Not on file Gender Identity Not on file Sexual Orientation Not on file documented as of this encounter Last Filed Vital Signs Vital Sign Reading Time Taken Comments Blood Pressure 125/77 09/02/2022 12:43 PM EDT Pulse 79 09/02/2022 12:43 PM EDT Temperature 36.4 ??C (97.6 ??F) 09/02/2022 1 2:43 PM EDT Respiratory Rate 16 09/02/2022 12:4 3 PM EDT Oxygen Saturation 90% 09/02/2022 12: 43 PM EDT Inhaled Oxygen Concentration - - Weight 81.4 kg (179 lb 7.3 oz) 09/02/2022 12:43 PM EDT self-reported Height 176.5 cm (5' 9.49) 09/02/2022 1 2:43 PM EDT Body Mass Index 26.13 09/02/2022 12:43 PM EDT documented in this encounter Patient Instructions * Patient Instructions* Hetal Ojeda MD - 09/02/2022 1:00 PM EDT Take the prednisone 10 mg daily again every day. Continue your inhalers. Increase your oxygen to 3 L at rest and 5 L with walking. I want to see you back in 6 weeks to decide how things are going on the prednisone. Please bring your inhalers with you to your next visit with us so we can review them. documented in this encounter Progress Notes * Hetal Ojeda MD - 09/02/2022 1:00 PM EDT Images from the original note were not included. [facility] Section of Pulmonary and Critical Care Medicine Outpatient Consultation Date of Encounter: 09/02/2022 Reason for Evaluation: Mr. Garret Barros returns to the pulmonary clinic for follow-up of COPD. I independently interviewed the patient, have examined the patient if this visit was conducted in the office and have reviewed available records. Dear Dr. Travis Castaneda MD, As you know, Garret Barros is a 47 y.o. male with history of severe asthma- COPD??overlap syndrome, oxygen dependency, prior pulmonary nodules,??ongoing??tobacco use, in the setting of anxiety, history of substance abuse in remission, hospitalization for COPD exacerbation and constipation Jun 2022, who was last seen in pulmonary clinic June 2022. He arrives again without his oxygen tank; says it ran out in the car again and did not bring it into the building. reports he has had increasing dyspnea this week, with productive cough, chest discomfort with coughing. He is very tired again. Sputum described as black or green. No fevers. No sinus issues currently. Denies GERD or abdominal pain. He says he is using his oxygen at home. He thinks the prednisone in June (10 mg daily x a month) was very helpful; he didn't have significant respiratory flares while on prednisone. He completed this a month ago, and then symptoms started coming back. No other recent prednisone use. He reports compliance with daily inhalers, including anoro and what sounds like stiolto or spiriva or possibly striverdi (he swears he is taking both; should not actually be receiving both from the pharmacy still), and flovent, and combivent PRN. No recent antibiotics or hospitalizations since last visit. He is smoking 1 cigarette per day. Thinking about quitting. He thinks smoking does make his breathing worse. Current Medications at Start of Encounter: Outpatient Medications Prior to Visit Medication Sig Dispense Refill ??? azithromycin (Zithromax Z-Pritesh) 250 mg Tablet Take 2 tabs on day 1 and then 1 tab days 2-5. 6 tablet 0 ??? zonisamide (Zonegran) 100 mg Capsule Take 2 capsules by mouth daily. 60 capsule 3 ??? polyethylene glycoL (Miralax) 17 gram Powder in Packet Take 17 g by mouth 2 times daily. Hold adose if you have three or more bowel movements a day 14 each 0 ??? senna-docusate (Pericolace) 8.6-50 mg Tablet Take 2 tablets by mouth 2 times daily. (Patient not taking: Reported on 07/05/2022) 60 tablet 11 ??? busPIRone (Buspar) 15 mg Tablet Take 1 tablet by mouth 3 times daily. 90 tablet 0 ??? bisacodyl EC (Dulcolax) 5 mg Tablet, Delayed Release (E.C.) Take 1 tablet by mouth daily as needed for Constipation. 30 tablet 0 ??? lisinopriL (Prinivil;Zestril) 20 mg Tablet Take 20 mg by mouth daily. ??? Anoro Ellipta 62.5-25 mcg/actuation Disk with Device Inhale 1 Inhalation into the lungs daily. ??? Flovent HFA 220 mcg/actuation HFA Aerosol Inhaler Inhale 2 puffs into the lungs 2 times daily. ??? methadone (Dolophine) 10 mg/mL Concentrate Take 132 mg by mouth daily. Per methadone clinic, doses at clinic ??? LORazepam (ATIVAN) 1 mg Tablet Take 1 tablet by mouth 2 times daily as needed for Anxiety. 10 tablet 0 ??? DULoxetine (CYMBALTA) 60 mg Capsule, Delayed Release(E.C.) Take 1 capsule by mouth 2 times daily. ??? QUEtiapine (SEROQUEL) 200 mg Tablet Take 1.5 tablets by mouth nightly. ??? ipratropium-albuterol (COMBIVENT RESPIMAT) 20-100 mcg/actuation Mist Inhale 1 puff into the lungs every 6 hours as needed for Wheezing. ??? albuterol 90 mcg/actuation HFA Aerosol Inhaler Inhale 2 puffs into the lungs every 6 hours as needed for Wheezing. Use with spacer ??? ibuprofen (ADVIL;MOTRIN) 600 mg Tablet Take 600 mg by mouth every 8 hours as needed for Pain. ??? calcium carbonate (TUMS) 200 mg calcium (500 mg) Tablet, Chewable Take 2 tablets by mouth 3 times daily as needed for Heartburn. ??? acetaminophen (TYLENOL) 500 mg Tablet Take 1 tablet by mouth every 6 hours as needed for Pain. 30 tablet 1 ??? ipratropium-albuterol (DUONEB) 0.5 mg-3 mg(2.5 mg base)/3 mL Solution for Nebulization Take 0.5mg by nebulization every 6 hours. 1 Box 4 ??? pregabalin (LYRICA) 200 mg Capsule Take 1 capsule by mouth 3 times daily. (Patient taking differently: Take 200 mg by mouth 3 times daily (after meals).) 60 capsule 0 No facility-administered medications prior to visit. Review of Systems: A focused ROS was completed and was positive as noted in HPI and otherwise negative. Physical Examination: BP 125/77 Pulse 79 Temp 36.4 ??C (97.6 ??F) (Temporal) Resp 16 Ht 176.5 cm (5' 9.49) Wt 81.4 kg (179 lb 7.3 oz) Comment: self-reported SpO2 90% BMI 26.13 kg/m?? GEN: NAD, alert, interactive, conversational HEENT: MMM, neck supple CV: RRR, normal S1, S2, no murmur PULM: normal work of breathing, air movement is decent, small end exp wheeze, no crackles ABD: soft, ND MSK: no joint swelling, R leg amputation, left leg with minimal edema; he is easily ambulatory NEURO: AAO, voice is clear Pulmonary Function Test Results: Date FVC FEV1 Ratio TLC RV RV/TLC ERV DLCO 6MWT 02/13/2020 1.59 L (32% pred) 1.17 L (30% pred) 74 ?01/13/2021 ??2.21 L (44% pred) ??0.67 L (17% pred) ??30 ?*39% pred (doen't meet ATS criteria) ?? 07/06/2022 1.57 L (32% pred) 0.77 L [...] hyperexpanded, possible pulmonary edema, no focal process Labs 05/23/2022: Eosinophils 300, Hgb 17.1, decreased to 16 on 06/02 Cr 0.81 on 06/02/2022, CO2 on BMP 26 Immunization History: Flu vaccine: COVID-19 vaccine: has received primary series Pneumovax: Prevnar-13: Impression and Recommendations: Garret Barros is a 47 y.o. 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 Unfortunately lung function continues to decline, with FEV1 now 16% predicted. He did not follow-up while still on prednisone so it is difficult to know if lung function improves on this as well. He consistently reports improvement in symptoms with systemic prednisone; we will resume daily 10 mg prednisone now. Risks/benefits of chronic prednisone use discussed. He is again unable to tell me which inhalers he takes at home and use of inhalers has been unclear for a long time with variable use pattern. He was most recently prescribed triple therapy was anoro ellipta and flovent, and should ideally continue on these. I requested he bring all of his inhalers with him to his next visit so we can resolve this question. Tobacco cessation could decrease frequency of respiratory flares, and I counseled him on cessation.He expresses an intent to quit but has struggled a lot with this. Ambulatory hypoxia is worsening, now requiring 4-5L NC O2 with ambulation. I strongly encouraged him to use the supplemental NC O2, 5L with activity, 3L O2 at rest. Was provided an O2 tank when he left clinic. I think he could benefit a lot from pulmonary rehab. In the past he was open to this if near his house and we did refer for rehab but he has not yet been able to do this. We have previously discussedthe possibility of pursuing endobronchial valve placement for emphysema; if he is interested in this will need to participate in pulmonary rehab first. CT imaging August 2021 demonstrated one stable small (5 mm) pulmonary nodule, and some evolution of pulmonary scarring in areas of previous pneumonia, but no new acute process. He will qualify for lung cancer screening CTs when he turns 53. Recent CXR 05/2022 did not identify any new pulmonary process. Summary Recommendations: - restart prednisone 10 mg po daily, prescribed - Continue current inhalers (believed to be anoro ellipta daily, flovent 220 two puffs BID, combivent PRN, albuterol as needed) --- bring inhalers to next visit to review - Continue supplemental oxygen use, increased to 3 L at rest, 5 L with ambulation, encouraged to use consistently - complete and sustained tobacco cessation again strongly advised - Referral to pulmonary rehab previously placed; location/distance is an issue we are still discussing - repeat nathaly/DLCO with next visit Follow-up with in-office visit in 6 weeks Thank you for involving me in Mr. Barros's care. Please feel free to contact me with any further questions or concerns. I personally spent >20 minutes of this encounter with the patient discussing their pulmonary disease and treatment recommendations as outlined in my assessment and plan above. This visit involved a total of 30 minutes of clinical time on day of visit. Hetal Ojeda MD [facility] PUL[facility] AT [facility] [address] Dept: [phone] Loc: [phone] documented in this encounter Plan of Treatment Upcoming Encounters Date Type Department Care Team (Late st Contact Info) Description 03/18/2024 8:30 AM EST Appointment [place] [address] 03/18/2024 9:30 AM EST Office [place] [address] Hetal Ojeda MD [facility] [place] [address] Scheduled Orders Name Type Priority Associated Diagnoses Orde r Schedule Pulmonary Function Testing PFT Routine Asthma-COPD overlap syndrome Expected: 10/03/2022, Expires: 04/04/2023 documented as of this encounter Visit Diagnoses Diagnosis Asthma-COPD overlap syndrome Dependence on supplemental oxygen Cigarette nicotine dependence with other nicotine-induced disorder documented in this encounter Care Teams Hogshead Hooper Relationship Specialty Start Date End Date Travis Castaneda MD [address] [place] [address] PCP - General Internal Medicine 10/29/18 09/27/23 documented as of this encounter
--- OUTSIDE RECORDS SUMMARY | 2024-02-29 08:59 | XMS_ITS | Encounter Summary ---
Author Organization Counts Include [facility] Address [facility] [place] [address] Care Team Providers Care Geographic Information Scientist Name Role Phone Travis Castaneda MD Primary Care Provider [phone] Encounter Details Date Type Department Care Team (Late Contact Info) Description 06/09/2022 [place] [phone] Alda Shah Social History Tobacco Use Types Packs/Day Years Used Date Smoking Tobacco: Every Day Cigarettes 0.3 30 Smokeless Tobacco: Never Comments:1 [...] 03/18/2024 8:30 AM EST Appointment [place] [phone] 03/18/2024 9:30 AM EST Office [place] [phone] Hetal Ojeda MD [facility] [place] [address] documented as of this encounter Visit Diagnoses Not on filedocumented in this encounter Care Teams Geographic Information Scientist Relationship Specialty Start Date End Date Travis Castaneda MD [address] [place] [address] PCP - General Internal Medicine 10/29/18 09/27/23 documented as of this encounter
--- OUTSIDE RECORDS SUMMARY | 2024-02-29 08:59 | XMS_ITS | Encounter Summary ---
Author Organization [facility] Address [facility] [place] [address] Care Team Providers Care Customer Services Supervisor Name Role Phone Travis Castaneda MD Primary Care Provider [phone] Encounter Details Date Type Department Care Team (Late st Contact Info) Description 08/30/2022 Telephone Pulmonology at [facility] [place] [phone] Dawood Leyva RN Social History Tobacco Use Types Packs/Day [...] Telephone Encounter - Carmen Cooper RN - 08/30/2022 3:59 PM EDT Images from the original note were not included. Needs clinic visit to discuss ongoing care needs. If he wants to be seen this week I can see him asadd-on visit on Saturday 09/02 at 1 pm. If this is an emergency he needs to go to local ED. Should continue current inhalers for now. Portable concentrator discussion can occur at visit. Ramesh, can you please call him back and assess whether he wants in-office visit this week, and ifhe agrees to Monday have Alda set this up with ambulatory O2 assessment at visit? Tx - JW Call to patient. Reviewed above. He's in agreement for OV Monday. Reviewed he'll need to present tothe ED if he has any worsening sx. Reviewed for him to continue current inhalers. The patient indicates understanding of these issues and agrees with the plan. * Telephone Encounter - Dawood Leyva RN - 08/30/2022 12:18 PM EDT RN called to Garret and was able to speak to him directly. Positive Symptoms: + SOB + Chest tightness + Constant cough + Coughing up clear to yellow, black, bloody secretions. + Anxiety from SOB Denies: - Sick exposure - Fevers Notes: Patient notes that his symptoms have been happening for a long while a couple months. He notesthat the SOB has been slowly progressive. Patient notes SOB on exertion of 100 yards. Patient relays that he is still using 2.5-3 L with ambulation, however due to his disabilities withhis leg and arm, he has noted the difficulty with using his oxygen tanks that were provided for mobility. He would like to pursue getting a POC. RN relayed that patient would need additional testing.He also confirmed that he was performing breathing exercises to assist with SOB. Patient relays that he was unable to make it to his 08/10/2022 appointment due to illness. Sanguine and black secretions have stopped, patient unsure how long ago. Patient relays his struggles to stop smoking, noting that when he was admitted he had no cravings. Medication and Therapy Review: Patient notes that he continues on Anoro Ellipta, Flovent, and Albuterol. He notes that he is no longer taking Combivent, as he was currently prescribed a similar medication. Patient confirmed increased nebulizer usage as well. Patient notes that his previous prescription for prednisone was helpful for a bit, however his SOB came back after finishing prednisone. Preferred Pharmacy: [facility] [place]. Return Contact: * Telephone Encounter - Dawood Leyva RN - 08/30/2022 12:17 PM EDT Cop[facility] from [facility] #[id number]. Topic: Specialty Dept CRMs - Triage >> August 30, 2022 11:18 AM Enma Ralph wrote: Triage Message Specialist: vivi Relationship (if other than patient-full name): self Symptom: shortness of breath Has patient experienced symptom before yes If patient has experienced symptom before, when was the last time this occurred unknown Is patient currently having symptom yes When did symptom begin couple of months Additional Comments: patient advised this is the worst his sob has been and has difficulty walking anywhere without getting winded. documented in this encounter Plan of Treatment Upcoming Encounters Date Type Department Care Team (Late st Contact Info) Description 03/18/2024 8:30 AM EST Appointment [place] [address] 03/18/2024 9:30 AM EST Office [place] [address] Hetal Ojeda MD [facility] [place] [address] documented as of this encounter Visit Diagnoses Not on filedocumented in this encounter Care Teams Customer Services Supervisor Relationship Specialty Start Date End Date Travis Castaneda MD [address] [place] [id number] PCP - General Internal Medicine 10/29/18 09/27/23 documented as of this encounter
--- OUTSIDE RECORDS SUMMARY | 2024-02-29 08:59 | XMS_ITS | Encounter Summary ---
Author Organization [facility] Address [facility] [place] [address] Care Team Providers Care Lieutenant Shift Supervisor Name Role Phone Travis Castaneda MD Primary Care Provider [phone] Encounter Details Date Type Department Care Team (Latest Contact Info) Description 12/12/2022 Travel Social History Tobacco Use Types Packs/Day [...] 03/18/2024 8:30 AM EST [place] [address] 03/18/2024 9:30 AM EST [place] [phone] Hetal Ojeda MD [facility] [place] [address] documented as of this encounter Visit Diagnoses Not on filedocumented in this encounter Care Teams Lieutenant Shift Supervisor Relationship Specialty Start Date End Date Travis Castaneda MD [address] [place] [address] PCP - General Internal Medicine 10/29/18 09/27/23 documented as of this encounter
--- OUTSIDE RECORDS SUMMARY | 2024-02-29 08:59 | XMS_ITS | Encounter Summary ---
Author Organization [facility] Address [facility] [place] [address] Care Team Providers Care Quarrying Manager Name Role Phone Travis Castaneda MD Primary Care Provider [phone] Encounter Details Date Type Department Care Team (Late st Contact Info) Description 07/05/2022 Orders [place] [phone] Hetal Ojeda MD [facility] PULMONARY [place] [address] COPD with exacerbation Social History Tobacco Use [...] 03/18/2024 8:30 AM EST Appointment [place] [phone] 03/18/2024 9:30 AM EST Office [place] [phone] Hetal Ojeda MD [facility] [place] [address] documented as of this encounter Results * Pulmonary Function Testing (07/06/2022 8:21 AM EST) FVC Actual Pre-BD 1.57 L COMPAS PFT FVC Pre-BD % of Predicted 32 % COMPAS PFT FVC Predicted 4.93 L COMPAS PFT FVC Pre-BD Z-Score -5.26 COMPAS PFT FVC Lower Limits of Normal 3.86 L COMPAS PFT FEV1 Actual Pre-BD 0.77 L COMPAS PFT FEV1 Pre-BD % of Predicted 20 % COMPAS PFT FEV1 Predicted 3.89 L COMPAS PFT FEV1 Pre-BD Z-Score -5.47 COMPAS PFT FEV1 Lower Limits of Normal 3.05 L COMPAS PFT FEV1 / FVC Actual Pre-BD 49 % COMPAS PFT FEV1/FVC Pre-BD Z-Score -3.86 COMPAS PFT FEV1 / FVC LLN 68 % COMPAS PFT SHX72-64 Actual Pre-BD 0.37 L/s COMPAS PFT [id number] Pre-BD % of Predicted 10 % COMPAS PFT [id number] Predicted 3.58 L/s COMPAS PFT [id number] Pre-BD Z-Score -4.25 COMPAS PFT DLCO Hb Actual Pre-BD 5.62 mL/min/mmHg COMPAS PFT DLCO Hb Pre-BD % of Predicted 19 % COMPAS PFT DLCO Hb Pre-BD Z-Score -7.87 COMPAS PFT DLCO Hb Predicted 29.07 mL/min/mmHg COMPAS PFT DLCO UNC ACT PRE-BD 5.62 mL/min/mmHg COMPAS PFT DLCO UNC PRE-BD % of PRED 19 % COMPAS PFT DLCO UNC PRE-BD Z-SCORE -7.87 % COMPAS PFT DLCO UNC Predicted 29.07 mL/min/mmHg COMPAS PFT DLCO/VA Actual Pre-BD 1.98 mL/min/mmHg /L COMPAS PFT DLCO/VA Pre-BD % of Predicted 44 % COMPAS PFT DLCO/VA Pre-BD Z-Score -4.42 COMPAS PFT DLCO/VA Predicted 4.50 mL/min/mmHg /L COMPAS PFT Narrative COMPAS PFT - 07/06/2022 8:21 AM EST FINDINGS: FEV1, FVC and FEV1/VC are reduced. Diffusion capacity not adjusted for hemoglobin is reduced. IMPRESSION: Spirometry demonstrates very severe (FEV1 < 35%) obstruction. Reduced FVC could represent co-existent restriction or air trapping. The presence of restriction or air trapping can be tested by measurement of lung volumes. Severe reduction in diffusing capacity (DLCO < 40%). Obstruction combined with a reduced diffusion capacity suggests emphysema. Procedure Note Fito Ashby MD - 07/06/2022 FINDINGS: FEV1, FVC and FEV1/VC are reduced. Diffusion capacity notadjusted for hemoglobin is reduced. IMPRESSION: Spirometry demonstrates very severe (FEV1 < 35%)obstruction. Reduced FVC could represent co-existent restriction or air trapping. The presence ofrestriction or air trapping can be tested by measurement of lung volumes. Severe reduction indiffusing capacity (DLCO < 40%). Obstruction combined with a reduced diffusion capacitysuggests emphysema. Hetal Ojeda MD PFT ORDERABLES COMPAS PFT documented in this encounter Visit Diagnoses Diagnosis COPD with exacerbation Obstructive chronic bronchitis with exacerbation COPD with exacerbation Obstructive chronic bronchitis with exacerbation documented in this encounter Care Teams Quarrying Manager Relationship Specialty Start Date End Date Travis Castaneda MD [address] [place] [address] PCP - General Internal Medicine 10/29/18 09/27/23 documented as of this encounter
--- OUTSIDE RECORDS SUMMARY | 2024-02-29 08:59 | XMS_ITS | Encounter Summary ---
Author Organization [facility] Address [facility] [place] [address] Care Team Providers Care Nursing Department Chairperson Name Role Phone Travis Castaneda MD Primary Care Provider [phone] Encounter Details Date Type Department Care Team (Latest Contact Info) Description 12/12/2022 8:18 AM EDT - 12/12/2022 9:07 AM EDT Hospital Encounter Pulmonology at [place] [phone] Asthma-COPD overlap syndrome Discharge Disposition: Home Social History Tobacco Use Types Packs/Day Years Used Date Smoking Tobacco: Some Days Cigarettes 0.3 30 Smokeless Tobacco: Never Comments:1 pack last about 1 0 days; previously was 2 ppd- one pack lasts a month Alcohol Use Standard Drinks/Week Comments Not Currently 0 (1 standard drink = 0.6 oz pur e alcohol) [facility] Inpatient Questions Answer Date Recorded Does Anyone [...] Sig Dispensed Refills Start Date End Date polyethylene glycoL (Miralax) 17 gram oral powder [...] capsule by mouth daily. 30 tablet 12/19/2022 zonisamide (Zonegran) 100 mg Capsule Take 2 [...] Per patient report, gets take home doses, [facility] [phone] last dose 12/12/22 per patient LORazepam (ATIVAN) [...] mouth 3 times daily. 60 capsule 11/26/2018 predniSONE (Deltasone) 10 mg tablet Take 3 tablets by mouth daily for 5 days, THEN 2 tablets daily for 7 days. Resume your prednisone 10 mg daily after the taper is done. 29 tablet 12/19/2022 12/31/2022 predniSONE (Deltasone) 10 mg tabletIndications:Ast hma-COPD overlap syndrome Take 1 tablet by mouth daily. 30 tablet 1 12/19/2022 09/13/2023 predniSONE (Deltasone) 10 mg tabletIndications:Ast hma-COPD overlap syndrome Take 1 tablet by mouth daily. 30 tablet 1 11/11/2022 12/19/2022 bisacodyl EC (Dulcolax) 5 mg Tablet, Delayed Release (E.C.) Take 1 tablet by mouth daily as needed for Constipation. 30 tablet 06/03/2022 09/24/2023 Anoro Ellipta 62.5-25 mcg/actuation Disk with Device Inhale 1 Inhalation into the lungs daily. 12/12/2019 06/26/2023 DULoxetine (CYMBALTA) 60 mg Capsule, Delayed Release(E.C.) Take 1 capsule by mouth 2 times daily. 01/31/2019 12/19/2022 documented as of this encounter Plan of Treatment Upcoming Encounters Date Type Department Care Team (Late st Contact Info) Description 03/18/2024 8:30 AM EST [place] [address] 03/18/2024 9:30 AM EST [place] [address] Hetal Ojeda MD [facility] [place] [address] Scheduled Orders Name Type Priority Associated Diagnoses Orde r Schedule Pulmonary Function Testing PFT Routine Asthma-COPD overlap syndrome 1 Occurrences starting 12/12/2022 until 12/12/2022 documented as of this encounter Visit Diagnoses Diagnosis Asthma-COPD overlap syndrome documented in this encounter Care Teams Nursing Department Chairperson Relationship Specialty Start Date End Date Travis Castaneda MD [address] [place] [address] PCP - General Internal Medicine 10/29/18 09/27/23 documented as of this encounter
--- OUTSIDE RECORDS SUMMARY | 2024-02-29 08:59 | XMS_ITS | Encounter Summary ---
Author Organization [facility] Address [facility] [place] [address] Care Team Providers Care Sliver Cutter Name Role Phone Travis Castaneda MD Primary Care Provider + [phone] Reason for Visit * Reason Onset Date Comments Follow-up 07/04/2022 Four week call p ost hospital discharge for COPD Encounter Details Date Type Department Care Team (Late st Contact Info) Description 07/04/2022 Telephone Hospitalist [facility] [place] [phone] Viv Crystal CMA Follow-up (Four week call post hospital discharge for COPD) Social History Tobacco Use [...] Telephone Encounter - Viv Crystal CMA - 07/08/2022 3:16 PM EST COPD patient- Discharged:??06/03/22 ?? Summary of events post discharge:??Patient was discharged on??06/03/22??after having been hospitalized with COPD exacerbation. ??Patient was discharged on Anoro Ellipta, albuterol HFA and Combivent Respimat. ??Patient was reminded of follow up with PCP on 06/14/22. ??On my phone call 06/07/22, patient says??he is feeling better since discharge, has some shortness of breath on exertion, using 2- 2.5 liters of Oxygen continuous. ??Patient was advised to call Pulmonology to reschedule his missed appointment.?On my call today, 06/14/22, patient states he is feeling pretty good but he can't breathe. He is seeing his PCP today and thinks they will send him back to the hospital. Patient couldn't remember his oxygen saturation but states it's not good. He reports using 2.5 liters of oxygen continuously and having low energy. On my call today, patient states he is feeling alright, but then mentioned he isn't breathing well. Patient states he has been in contact with his PCP. I let him know I would send a message to pulmonology. ?? Telephone call placed 07/08/22 to follow up on patient??four weeks post hospital visit. ?? The following questions were asked: ?? How are you doing compared to the last day of the hospital?Patient states he is alright, but not breathing well.? How is your SOB???Patient rated 2/5.?Use a 1-5 scale: ??1 being the worst its been and 5 beingthe best it has been ?? If on , ?Yes ??[x]?No??[]?? how much ??are you on??? 2.5 liters continuous ?? Have you checked your O2 sat on room air?Yes ??[]?No ??[x]?? If yes n/a ?? How is your energy level???Patient reports 2/5. ?? Date of last spirometry:?01/13/2021 ?? Spirometry results:?FEV1 44% predicted, FEV1/FVC 30% actual pre-BD ?? Did you pickler helper your meds???Picked up all medications. ?? Are you taking your meds? ??Yes ??[x]?No ??[]? Do you know which visiting services and providers you will see next? No VNA services ? Additional notes:??Patient agreed a message to pulmonology couldn't hurt. ?? * Telephone Encounter - Viv Crystal CMA - 07/04/2022 11:39 AM EST Unable to reach patient. Will try again tomorrow. * Telephone Encounter - Viv Crystal CMA - 07/04/2022 10:12 AM EST LM for patient. Will try calling later. documented in this encounter Plan of Treatment Upcoming Encounters Date Type Department Care Team (Late st Contact Info) Description 03/18/2024 8:30 AM EST Appointment [place] [address] 03/18/2024 9:30 AM EST Office [place] [address] Hetal Ojeda MD [facility] [place] [address] documented as of this encounter Visit Diagnoses Not on filedocumented in this encounter Care Teams Sliver Cutter Relationship Specialty Start Date End Date Travis Castaneda MD [address] [place] [address] PCP - General Internal Medicine 10/29/18 09/27/23 documented as of this encounter
--- OUTSIDE RECORDS SUMMARY | 2024-02-29 08:59 | XMS_ITS | Encounter Summary ---
Author Organization [facility] Address [facility] [place] [address] Care Team Providers Care Salon Designer Name Role Phone Travis Castaneda MD Primary Care Provider + [phone] Reason for Visit * Reason Onset Date Comments Shortness of Breath 09/15/2022 Encounter Details Date Type Department Care Team (Late st Contact Info) Description 09/15/2022 Telephone Pulmonology at [facility] [place] [phone] Dawood Leyva RN Shortness of Breath Social History Tobacco Use [...] Telephone Encounter - Dawood Leyva RN - 09/15/2022 1:19 PM EDT RN called back to patient and outlined rationale for him to present to the ED. Patient noted that he had increased oxygen as advised, and was feeling improved with a cleared head. Patient refused x3, stating that he doesn't believe that he needs go. RN outlined reasoning again with hypoxia and acute symptoms. Patient stated that he would take it under consideration, agreeing to go if he feltworse. RN again stressed need for evaluation for potential hypoxia and for personal safety. Patientagain refused. * Telephone Encounter - Hetal Ojeda MD - 09/15/2022 11:31 AM EDT Multiple concerns as outlined by RN from call including other provider locally advising him he needs ED assessment, very significant hypoxia, and what might be new infection or hemoptysis (black blood in sputum) - I recommend he go to ED for evaluation and management of acute symptoms and unstable hypoxia, as I do not think we can safely address this in clinic in a timely fashion and travel here may increase risk in setting of significant hypoxia and escalating dyspnea. Hetal Ojeda MD * Telephone Encounter - Ramesh Leyva-Markie Mendieta RN - 09/15/2022 10:39 AM EDT RN called back to patient, and was able to speak to Garret directly. Patient states that he continues to have problems with is breathing. He states that he has not seenimprovement with his breathing and continues to have difficulty. Patient relays that he was seen bya local provider, and it was noted that his oxygen levels was 72% at rest. He was advised to present to ED per his provider, and declined. He has called, requesting an urgent follow up with Dr. Ojeda. RN reviewed his oxygen usage, and patient notes that he currently uses 2 liters at rest, and 3 liters with activity. RN reviewed with patient that per notes he should be using 3L at rest and 5L with activity. This was reiterated through out call. Patient verbalized agreement with changing settings.Garret relays that he has concerns of not having enough tanks for when he leaves his house, and verb alized his wish to be more active outdoors. RN stressed that he needs to contact [facility] to delivermore tanks to allow him to be more active, especially when he needs to use tanks for appointments. Patient verbalized understanding and agreement to do so. He notes that they deliver on Wednesdays. RN stressed to patient the need for a pulse oximeter at home to monitor his blood oxygenation. States that he cannot afford to picker and sorter load and unload a pulse oximeter. Stated that he has a glucometer, blood pressure machine at home. Patient confirmed using the following inhalers: Albuiterol, Anoro in AM, Flovent, Combivent. Dosingreviewed with patient. He notes that his rescue inhalers do not seem to have lasting effect. Patient confirmed continuing 10 mg PO daily prednisone. Patient also relayed that he has been coughing up yellow secretions, with intermittent occurrence of black blood. He states that his last occurrence with black blood was over a week ago. RN stressed to patient that he should be presenting to ED for evaluation. Patient declined once more. RN stressed that this could be a sign of an infection, and should be evaluated. Patient suggested that he should increase dose of prednisone. RN reiterated that this was a steroid, and not to take the placeof an antibiotic for an infectious process. Patient declined going to ED, stating that he just wanted an urgent follow up with Dr. Ojeda. * Telephone Encounter - Dawood Leyva RN - 09/15/2022 10:37 AM EDT Copied from CRM #[id number]. Topic: Specialty Dept CRMs - Triage >> September 15, 2022 8:16 AM Verna Alvarez wrote: Triage Message Specialist: Hetal Ojeda MD Relationship (if other than patient-full name): Garretjeanie Barros Symptom: Shortness of breath/trouble breathing Has patient experienced symptom before y If patient has experienced symptom before, when was the last time this occurred 09/02/22 Is patient currently having symptom yes When did symptom begin 09/14/22 Additional Comments: Patient states he needs an urgent appointment with Hetal Ojeda MD; states he does not want to go to the emergency room. >> September 15, 2022 8:33 AM Aditi Lafleur RN wrote: Chema, This CRM was misdirected, I believe I redirected it to the correct place but I am not entirely sure. My apologies if you have also received this in error. documented in this encounter Plan of Treatment Upcoming Encounters Date Type Department Care Team (Late st Contact Info) Description 03/18/2024 8:30 AM EST [place] [address] 03/18/2024 9:30 AM EST [place] [phone] Hetal Ojeda MD [facility] [address] [place] [address] documented as of this encounter Visit Diagnoses Not on filedocumented in this encounter Care Teams Salon Designer Relationship Specialty Start Date End Date Travis Castaneda MD [address] [place] [address] PCP - General Internal Medicine 10/29/18 09/27/23 documented as of this encounter
--- OUTSIDE RECORDS SUMMARY | 2024-02-29 08:59 | XMS_ITS | Encounter Summary ---
Author Organization [facility] [place] [address] Care Team Providers Care Supervisor Final Name Role Phone Travis Castaneda MD Primary Care Provider + [phone] Encounter Details Date Type Department Care Team (Late st Contact Info) Description 07/06/2022 [place] [address] Pearl Sharma Social History Tobacco Use Types Packs/Day Years [...] encounter Miscellaneous Notes * Telephone Encounter - Pearl Sharma - 07/06/2022 9:16 AM EST At exit, he declined to make follow up appointment- said he needed to get going and he will call toschedule his follow up with pft. Return in about 1 month (around 08/06/2022) for In-office visit, With nathaly and DLCO and home O2 reassessment. [place] wo,DLCO,Home 02 eval./ COPD/[place] documented in this encounter Plan of Treatment Upcoming Encounters Date Type Department Care Team (Late st Contact Info) Description 03/18/2024 8:30 AM EST App[place]ment [place] [address] 03/18/2024 9:30 AM EST [place] [address] Hetal Ojeda MD [facility] [place] [address] documented as of this encounter Visit Diagnoses Not on filedocumented in this encounter Care Teams Supervisor Final Relationship Specialty Start Date End Date Travis Castaneda MD [address] [place] [address] PCP - General Internal Medicine 10/29/18 09/27/23 documented as of this encounter
--- OUTSIDE RECORDS SUMMARY | 2024-02-29 08:59 | XMS_ITS | Encounter Summary ---
Author Organization [facility] Address [facility] [place] [address] Care Team Providers Care Work Station Support Specialist Name Role Phone Travis Castaneda MD Primary Care Provider [phone] Encounter Details Date Type Department Care Team (Latest Contact Info) Description 07/06/2022 7:56 AM EST - 07/06/2022 11:59 PM [facility] Hospital Encounter Pulmonology at [facility] [place] [phone] COPD with exacerbation Discharge Disposition: Home Social [...] Sig Dispensed Refills Start Date End Date zonisamide (Zonegran) 100 mg Capsule Take 2 [...] report, gets take home doses, [facility] [phone] last dose 12/12/22 per patient LORazepam (ATIVAN) [...] 60 capsule 11/26/2018 predniSONE (Deltasone) 10 mg TabletIndications:A&P TECHNICIAN D, very severe Take 1 tablet by mouth daily for 30 days. 30 tablet 07/06/2022 08/05/2022 azithromycin (Zithromax Z-Pritesh) 250 mg TabletIndications:A&P TECHNICIAN D, very severe Take 2 tabs on day 1 and then 1 tab days 2-5. 6 tablet 07/06/2022 12/12/2022 polyethylene glycoL (Miralax) 17 gram Powder in Packet Take 17 g by mouth 2 times daily. Hold a dose if you have three or more bowel movements a day 14 each 06/03/2022 12/12/2022 senna-docusate (Pericolace) 8.6-50 mg Tablet Take 2 tablets by mouth 2 times daily. 60 tablet 11 06/03/2022 12/12/2022 bisacodyl EC (Dulcolax) 5 mg Tablet, Delayed [...] 03/18/2024 8:30 AM EST Appointment [place] [phone] 03/18/2024 9:30 AM EST Office [place] [phone] Hetal Ojeda MD [facility] [address] [place] [address] documented as of this encounter Procedures Procedure Name Priority Date/Time Associated Diagnosis Comments COMMON PULMONARY FUNCTION TEST Routine 07/06/2022 8:21 AM EST COPD with exacerbation documented in this encounter Results * Pulmonary Function Testing [...] / FVC LLN 68 % COMPAS PFT [id number] Actual Pre-BD 0.37 L/s COMPAS PFT [id number] Pre-BD % of Predicted 10 % COMPAS PFT [id number] Predicted 3.58 L/s COMPAS PFT [id number] Pre-BD Z-Score -4.25 COMPAS PFT DLCO Hb [...] exacerbation documented in this encounter Care Teams Work Station Support Specialist Relationship Specialty Start Date End Date Travis Castaneda MD [address] [place] [address] PCP - General Internal Medicine 10/29/18 09/27/23 documented as of this encounter
--- OUTSIDE RECORDS SUMMARY | 2024-02-29 08:59 | XMS_ITS | Encounter Summary ---
Author Organization [facility] Address [facility] [place] [address] Care Team Providers Care Price Checker Name Role Phone Travis Castaneda MD Primary Care Provider [phone] Encounter Details Date Type Department Care Team (Late Contact Info) Description 07/14/2022 Telephone [place] [phone] Alda Shah Social History Tobacco Use Types [...] 03/18/2024 8:30 AM EST Appointment [place] [phone] 03/18/2024 9:30 AM EST Office [place] [phone] Hetal Ojeda MD [facility] [address] PULMONARY MEDICINE [place] [phone] documented as of this encounter Visit Diagnoses Not on filedocumented in this encounter Care Teams Price Checker Relationship Specialty Start Date End Date Travis Castaneda MD [address] [place], [place] [id number] PCP - General Internal Medicine 10/29/18 09/27/23 documented as of this encounter
--- OUTSIDE RECORDS SUMMARY | 2024-02-29 08:59 | XMS_ITS | Encounter Summary ---
Author Organization [facility] Address [facility] [place] [address] Care Team Providers Care Medical Radiation Therapist Name Role Phone Travis Castaneda MD Primary Care Provider [phone] Encounter Details Date Type Department Care Team (Late Contact Info) Description 07/12/2022 [place] [phone] Alda Shah Social History Tobacco Use Types [...] 03/18/2024 8:30 AM EST [place] [phone] 03/18/2024 9:30 AM EST [place] [phone] Hetal Ojeda MD [facility] [place] [address] documented as of this encounter Visit Diagnoses Not on filedocumented in this encounter Care Teams Medical Radiation Therapist Relationship Specialty Start Date End Date Travis Castaneda MD [address] [place], [place] [id number] PCP - General Internal Medicine 10/29/18 09/27/23 documented as of this encounter
--- OUTSIDE RECORDS SUMMARY | 2024-02-29 08:59 | XMS_ITS | Encounter Summary ---
Author Organization [facility] Address [facility] [place] [address] Care Team Providers Care Customer Support Consultant Name Role Phone Travis Castaneda MD Primary Care Provider [phone] Encounter Details Date Type Department Care Team (Late st Contact Info) Description 07/06/2022 8:30 AM EST Office Visit Pulmonology at [facility] [place] [phone] Hetal Ojeda MD [facility] [place] [address] COPD, very severe; Asthma-COPD overlap syndrome; Dependence on supplemental oxygen Social History Tobacco Use Types Packs/Day Years [...] Sign Reading Time Taken Comments Blood Pressure 90/64 07/06/2022 8:34 AM EST Pulse 83 07/06/2022 8:34 AM EST Temperature 36.7 ??C (98 ??F) 07/06/2022 8:3 4 AM EST Respiratory Rate 20 07/06/2022 8:34 AM EST Oxygen Saturation 90% 07/06/2022 8:3 4 AM EST 6L of 02 via nc Inhaled Oxygen Concentration - - Weight 83.2 kg (183 lb 6.8 oz) 07/06/2022 8:34 AM EST Height 176.5 cm (5' 9.49) 07/06/2022 8 :34 AM EST Body Mass Index 26.71 07/06/2022 8:34 AM EST documented in this encounter Patient Instructions * Patient Instructions* Hetal Ojeda MD - 07/06/2022 8:30 AM EST Your lung tests today show your lung function is only 20% of normal. You need to quit smoking to prevent your lungs from getting worse. Take the azithromycin rx this week for 5 days for your COPD. Start the prednisone taking 1 tab (10 mg) daily for the next month. In one month we will decide in clinic if this is helping and what to do next. Please use your oxygen all of the time. documented in this encounter Progress Notes * Hetal Ojeda MD - 07/06/2022 8:30 AM EST Images from the original note were not included. [facility] Section of Pulmonary and Critical Care Medicine Outpatient Consultation Date of Encounter: 07/06/2022 Reason for Evaluation: Mr. Garret Barros returns [...] anxiety, history of substance abuse in remission, who was last seen in pulmonary clinic May 2022. He arrives again without his oxygen tank; says it ran out in the car. reports ongoing dyspnea on exertion. Today he says he is very short of breath. He was hospitalized in June for COPD exacerbation and constipation; chart indicates that his breathing improved quickly with duoenbs and prednisone x 5 days, though he continued to have wheezing throughout his hospital stay. The primary reason for hospitalization through 11 days was management of constipatio n and pain. He thinks that smoking cigarettes and sometimes marijuana at home does make his breathing worse after he goes home from the hospital. Only smoking a few cigarettes per day. Trying to quit, using nicotine patches. He reports chronic chest congestion and sputum production, and ongoing wheezing. He is fatigued all the time. Reports lower right chest/right flank pain. He reports he is using his albuterol, combivent He thinks he is using anoro and thinks he is taking Striverdi (was on in the hospital), but he can't really remember which inhalers he has at home. We have not prescribed striverdi though he was on this in the hospital. Last prednisone use was a month ago while hospitalized. Is using oxygen 2-3 L at home. Tells me he uses consistently. Has had covid19 vaccine primary series. Current Medications at Start of Encounter: Outpatient Medications Prior to Visit Medication Sig Dispense Refill ??? zonisamide (Zonegran) 100 mg Capsule Take 2 capsules by mouth daily. 60 capsule 3 ??? polyethylene glycoL (Miralax) 17 gram Powder in Packet Take 17 g by mouth 2 times daily. Hold adose if you have three or more bowel movements a day 14 each 0 ??? busPIRone (Buspar) 15 mg Tablet Take [...] times daily (after meals).) 60 capsule 0 ??? senna-docusate (Pericolace) 8.6-50 mg Tablet Take 2 tablets by mouth 2 times daily. (Patient not taking: Reported on 07/05/2022) 60 tablet 11 ??? codeine-guaiFENesin (guaiFENesin AC) 10-100 mg/5 mL Liquid Take 5 mLs by mouth 3 times daily asneeded for Cough. Do not take with ativan (Patient not taking: Reported on 02/13/2020) 120 mL 0 No facility-administered medications prior to visit. Review of Systems: A focused ROS was completed and was positive as noted in HPI and otherwise negative. Physical Examination: BP 90/64 Pulse 83 Temp 36.7 ??C (98 ??F) (Temporal) Resp 20 Ht 176.5 cm (5' 9.49) Wt 83.2 kg (183 lb 6.8 oz) SpO2 90% Comment: 6L of 02 via nc BMI 26.71 kg/m?? GEN: NAD, alert, interactive, conversational HEENT: MMM, neck supple CV: RRR, normal S1, S2, no murmur PULM: normal work of breathing, there is decent airflow and soft exp wheezing diffusely, no crackles ABD: soft, ND MSK: no joint swelling, R leg amputation, left leg no edema not tender; he is easily ambulatory NEURO: AAO, voice is clear Pulmonary Function Test Results: Date FVC FEV1 Ratio TLC RV RV/TLC ERV DLCO 6MWT 02/13/2020 1.59 L (32% pred) 1.17 L (30% pred) 74 ?01/13/2021 ??2.21 L (44% pred) ??0.67 L (17% pred) ??30 ?*39% pred (doen't meet ATS criteria) ?? 07/06/2022 1.57 L (32% pred) 0.77 L (20% pred) 49 19% pred Jan 2020 Ambulatory O2 assessment: SpO2 was 85% at rest at beginning of ambulatory O2 assessment, and he required 3L O2 to maintain SpO2 > 88% with ambulation of 375 feet. PFT interpretation 07/06/2022: Very severe airflow obstruction, slight improved compared with testingin 2020, with severely impaired diffusing capacity. Labs, Microbiology and Imaging: I personally reviewed [...] report severe dyspnea and daily respiratory symptoms. He has very little respiratory reserve. His lung function at this visit shows severe airflow obstruction withFEV1 20% predicted and severely impaired diffusing capacity. It is interested how quickly he improved during his hospitalization in May 2022 with bronchodilators and prednisone. He notes breathing is better in the hospital because he is away from cigarettes. I suspect there is also an element of improved consistency with dosing of inhaled therapies, and that he may be more steroid-responsive than he previously reported. He is unable to tell me which inhalers he takes at home and use of inhalers has been unclear for a long time despite ongoing effortsto clarify this. He stated he will call with information about what inhalers he is taking. Previously prescribed triple therapy was anoro ellipt and flovent. For now, with his wheezing on exam and progressively increasing symptoms a month out from his hospitalization, we will re-try azithromycin for a 5 day course, and retry chronic low dose prednisone. He did not feel he benefitted from these in the past so we will keep the trials short and follow-up clinically and with repeat PFTs in 1 month to decide whether to extend chronic steroid use. Unfortunately he does not have a lot of additional options for treatment of his lung disease. I think more consistent inhaler use could decrease the frequency of his exacerbations. Tobacco cessation may also decreased frequency of flares, and I counseled him on cessation. He expresses an intent to quit but has struggled a lot with this. He gets very hypoxic with ambulation when he comes to clinic. I strongly encouraged him to use the supplemental [place] O2, 2-3L baseline with activity. He declined to wait for oxygen to be brought to himat the end of his visit for his trip home. I think he could benefit a lot [...] any new pulmonary process. Summary Recommendations: - azithromycin x 5 days, prescribed - start prednisone 10 mg po daily, take for the next month, prescribed - Continue current inhalers (believed to be anoro ellipta daily, flovent 220 two puffs BID, combivent PRN, albuterol as needed) --- he stated he will call to confirm what his current inhalers are - Continue supplemental oxygen use, 2 L at rest, 3 L with ambulation, encouraged to use consistently - complete and sustained tobacco cessation again strongly advised - Referral to pulmonary rehab previously placed; location/distance is an issue we are still discussing - repeat nathaly/DLCO/home O2 re-assessment with next visit Follow-up with in-office visit in 1 month Thank you for involving me in Mr. Barros's care. Please feel free to contact me with any further questions or concerns. I personally spent 25 minutes of this encounter with the patient discussing their pulmonary diseaseand treatment recommendations as outlined in my assessment and plan above. This visit involved a total of 35 minutes of clinical time on day of visit. Hetal Ojeda MD [facility] PULMONOLOGY AT [facility] [address] Dept: [phone] Loc: [phone] documented in this encounter Plan of Treatment Upcoming Encounters Date Type Department Care Team (Late st Contact Info) Description 03/18/2024 8:30 AM EST Appointment [place] [address] 03/18/2024 9:30 AM EST [place] [address] Hetal Ojeda MD [facility] [address] PULMONARY MEDICINE [place] [phone] documented as of this encounter Results * Pulmonary Function Testing (09/02/2022 12:18 PM EDT) FVC Actual Pre-BD 1.48 L COMPAS PFT FVC Pre-BD % of Predicted 30 % COMPAS PFT FVC Predicted 4.92 L COMPAS PFT FVC Pre-BD Z-Score -5.40 COMPAS PFT FVC Lower Limits of Normal 3.85 L COMPAS PFT FEV1 Actual Pre-BD 0.64 L COMPAS PFT FEV1 Pre-BD % of Predicted 16 % COMPAS PFT FEV1 Predicted 3.89 L COMPAS PFT FEV1 Pre-BD Z-Score -5.64 COMPAS PFT FEV1 Lower Limits of Normal 3.04 L COMPAS PFT FEV1 / FVC Actual Pre-BD 43 % COMPAS PFT FEV1/FVC Pre-BD Z-Score -4.37 COMPAS PFT FEV1 / FVC LLN 68 % COMPAS PFT [id number] Actual Pre-BD 0.27 L/s COMPAS PFT [id number] Pre-BD % of Predicted 8 % COMPAS PFT [id number] Predicted 3.57 L/s COMPAS PFT [id number] Pre-BD Z-Score -4.53 COMPAS PFT DLCO Hb Actual Pre-BD 6.78 mL/min/mmHg COMPAS PFT DLCO Hb Pre-BD % of Predicted 23 % COMPAS PFT DLCO Hb Pre-BD Z-Score -7.19 COMPAS PFT DLCO Hb Predicted 29.05 mL/min/mmHg COMPAS PFT DLCO UNC ACT PRE-BD 6.78 mL/min/mmHg COMPAS PFT DLCO UNC PRE-BD % of PRED 23 % COMPAS PFT DLCO UNC PRE-BD Z-SCORE -7.19 % COMPAS PFT DLCO UNC Predicted 29.05 mL/min/mmHg COMPAS PFT DLCO/VA Actual Pre-BD 2.01 mL/min/mmHg /L COMPAS PFT DLCO/VA Pre-BD % of Predicted 45 % COMPAS PFT DLCO/VA Pre-BD Z-Score -4.35 COMPAS PFT DLCO/VA Predicted 4.49 mL/min/mmHg /L COMPAS PFT Narrative COMPAS PFT - 09/02/2022 12:18 PM EDT FINDINGS: FEV1, FVC and FEV1/VC are reduced. Diffusion capacity not adjusted for hemoglobin is reduced. IMPRESSION: Spirometry demonstrates very severe (FEV1 < 35%) obstruction. Reduced FVC could represent co-existent restriction or air trapping. The presence of restriction or air trapping can be tested by measurement of lung volumes. Severe reduction in diffusing capacity (DLCO < 40%). Compared to the last study on 07/06/22, the FVC is not significantly changed, the FEV1 decreased by 0.13 L and the DLCO increased by 21%. Obstruction combined with a reduced diffusion capacity suggests emphysema. Technicallly limited study. Procedure Note Unknown - 09/08/2022 FINDINGS: FEV1, FVC and FEV1/VC are reduced. Diffusion capacity notadjusted for hemoglobin is reduced. IMPRESSION: Spirometry demonstrates very severe (FEV1 < 35%)obstruction. Reduced FVC could represent co-existent restriction or air trapping. The presence ofrestriction or air trapping can be tested by measurement of lung volumes. Severe reduction indiffusing capacity (DLCO < 40%). Compared to the last study on 07/06/22, the FVC is notsignificantly changed, the FEV1 decreased by 0.13 L and the DLCO increased by 21%. Obstructioncombined with a reduced diffusion capacity suggests emphysema. Technicallly limited study. Hetal Ojeda MD PFT ORDERABLES COMPAS PFT documented in this encounter Visit Diagnoses Diagnosis COPD, very severe Chronic airway obstruction, not elsewhere classified Asthma-COPD overlap syndrome Dependence on supplemental oxygen COPD, very severe Chronic airway obstruction, not elsewhere classified documented in this encounter Care Teams Customer Support Consultant Relationship Specialty Start Date End Date Travis Castaneda MD [address] [place] [address] PCP - General Internal Medicine 10/29/18 09/27/23 documented as of this encounter
--- OUTSIDE RECORDS SUMMARY | 2024-02-29 08:59 | XMS_ITS | Encounter Summary ---
Author Organization [facility] [place] [address] Care Team Providers Care Animal Assisted Therapist Name Role Phone Travis Castaneda MD Primary Care Provider + [phone] Encounter Details Date Type Department Care Team (Late st Contact Info) Description 11/17/2022 Telephone Pulmonology at [facility] [place] [phone] Dawood Leyva RN Social History Tobacco Use Types Packs/Day Years Used Date Smoking Tobacco: Some Days Cigarettes 0.3 30 Smokeless Tobacco: Never Comments:1 pack last about 1 0 days; previously was 2 ppd- one pack lasts a month Alcohol Use Standard Drinks/Week Comments Not Currently 0 (1 standard drink = 0.6 oz pur e alcohol) [facility] Inpatient Questions Answer Date Recorded [...] encounter Miscellaneous Notes * Telephone Encounter - Adelina Kowalski - 11/17/2022 11:33 AM EDT Patient is returning a missed call from nursing. Please return call to discuss symptoms when able * Telephone Encounter - Dawood Leyva RN - 11/17/2022 10:49 AM EDT ----- Message from Hetal Ojeda MD sent at 11/16/2022 3:55 PM EDT ----- Regarding: RE: unavailable for portable oxygen concentrator thru [facility] [place], yany for clarifying. Ramesh, could you please let Mr. Barros know that his home oxygen company is not able to dispense a portable oxygen concentrator? He had called in to ask about this. Hetal ----- Message ----- From: Lorie Hernandez RT Sent: 11/14/2022 8:39 AM EDT To: Hetal Ojeda MD Subject: RE: unavailable for portable oxygen concentr# Generally other DME providers won't accept a transition of O2 if there is more than 1- 1 1/2 years used of their O2 DME benefit. At this time, another DME would only be able to bill the rental for 2 months and then need to provide his equipment/-including servicing it for the next 24 months for minimal reimbursement. Lorie ----- Message ----- From: Hetal Ojeda MD Sent: 11/11/2022 3:36 PM EDT To: RT Jenny Subject: RE: unavailable for portable oxygen concentr# Any chance of changing providers to try to allow for this? Hetal ----- Message ----- From: Lorie Hernandez RT Sent: 11/11/2022 10:25 AM EDT To: Hetal Ojeda MD Subject: unavailable for portable oxygen concentrator# Hi Hetal I heard from Edd Rajput is in month 34 of the medicare O2 cycle. Not available for portable oxygen concentrator thru [facility]. Thanks Lorie documented in this encounter Plan of Treatment Upcoming Encounters Date Type Department Care Team (Late st Contact Info) Description 03/18/2024 8:30 AM EST Appointment [place] [address] 03/18/2024 9:30 AM EST [place] [address] Hetal Ojeda MD [facility] [place] [address] documented as of this encounter Visit Diagnoses Not on filedocumented in this encounter Care Teams Animal Assisted Therapist Relationship Specialty Start Date End Date Travis Castaneda MD [address] [place] [address] PCP - General Internal Medicine 10/29/18 09/27/23 documented as of this encounter
--- OUTSIDE RECORDS SUMMARY | 2024-02-29 08:59 | XMS_ITS | Encounter Summary ---
Author Organization [facility] Address [facility] [place] [address] Care Team Providers Care Teletype Telegrapher Name Role Phone Travis Castaneda MD Primary Care Provider + [phone] Reason for Visit * Reason Onset Date Comments Follow-up 06/13/20[address] One week call po [facility] hosp discharge for COPD Encounter Details Date Type Department Care Team (Late st Contact Info) Description 06/13/2022 Telephone Hospitalist [facility] [place] [phone] Viv Crystal CMA Follow-up (One week call post hosp discharge [...] Telephone Encounter - Viv Crystal CMA - 06/14/2022 10:58 AM EST COPD patient- Discharged: 06/03/22 ?? Summary of events post discharge: Patient was discharged on 06/03/22 after having been hospitalized with COPD exacerbation. Patient was discharged on Anoro Ellipta, albuterol HFA and Combivent Respimat. Patient was reminded of follow up with PCP on 06/14/22. On my phone call 06/07/22, patient says he isfeeling better since discharge, has some shortness of breath on exertion, using 2- 2.5 liters of Oxygen continuous. Patient was advised to call Pulmonology to reschedule his missed appointment. On mycall today, 06/14/22, patient states he is feeling pretty good but he can't breathe. He is seeing his PCP today and thinks they will send him back to the hospital. Patient couldn't remember his oxygen saturation but states it's not good. He reports using 2.5 liters of oxygen continuously and having low energy. ?? Telephone call placed 06/14/22 to follow up on patient one week post hospital visit. ?? The following questions were asked: ?? How are you doing compared to the last day of the hospital? Patient states he is feeling pretty good but he can't breathe ?? How is your SOB? Patient rated 1/5. Use a 1-5 scale: 1 being the worst its been and 5 being the best it has been ?? If on , Yes [x]? No []? how much are you on? 2.5 liters continuous ?? Have you checked your O2 sat on room air? Yes [x]? No []? If yes n/a ?? How is your energy level? Patient reports /5. ?? Date of last spirometry: 01/13/2021 ?? Spirometry results: FEV1 44% predicted, FEV1/FVC 30% actual pre-BD ?? Did you belt picker your meds? Picked up all medications. ?? Are you taking your meds? Yes [x]? No []? ?? Do you know which visiting services and providers you will see next? No VNA services PCP follow up 06/14 ?? Additional notes: Patient will be called again in one week. * Telephone Encounter - Viv Crystal CMA - 06/13/2022 11:03 AM EST Patient not home. Will call tomorrow morning. documented in this encounter Plan of Treatment Upcoming Encounters Date Type Department Care Team (Late st Contact Info) Description 03/18/2024 8:30 AM EST Appointment [place] [address] 03/18/2024 9:30 AM EST Office [place] [address] Hetal Ojeda MD [facility] [place] [address] documented as of this encounter Visit Diagnoses Not on filedocumented in this encounter Care Teams Teletype Telegrapher Relationship Specialty Start Date End Date Travis Castaneda MD [address] [place] [address] PCP - General Internal Medicine 10/29/18 09/27/23 documented as of this encounter
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
--- OUTSIDE RECORDS SUMMARY | 2024-02-29 08:59 | XMS_ITS | Encounter Summary ---
Author Organization [facility] [place] [address] Care Team Providers Care Butcher Head Name Role Phone Travis Castaneda MD Primary Care Provider + [phone] Encounter Details Date Type Department Care Team (Late st Contact Info) Description 06/16/2022 Telephone Pulmonology at [facility] [place] [phone] Kiran Hernandez RN Social History Tobacco Use Types Packs/Day [...] encounter Miscellaneous Notes * Telephone Encounter - Kiran Hernandez RN - 06/16/2022 10:22 AM EST Copied from [facility] #[id number]. Topic: Specialty Dept CRMs - Triage >> Jun 16, 2022 8:26 AM Adelina Kowalski wrote: Triage Message Specialist: Rusty Fong MD Relationship (if other than patient-full name): Self, Garret Barros Symptom: shortness of breath Has patient experienced symptom before yes If patient has experienced symptom before, when was the last time this occurred ongoing COPD symptoms Is patient currently having symptom yes When did symptom begin patient was hospitalized for symptoms 05/23/22 Additional Comments: Patient called in reporting that he has still having difficulty breathing since hospitalization for COPD symptoms in May. Patient stating he needs to be seen for symptoms. Soonest FUV and PFT has been rescheduled documented in this encounter Plan of Treatment Upcoming Encounters Date Type Department Care Team (Late st Contact Info) Description 03/18/2024 8:30 AM EST Appointment [place] [address] 03/18/2024 9:30 AM EST Office [place] [address] Hetal Ojeda MD [facility] [place] [address] documented as of this encounter Visit Diagnoses Not on filedocumented in this encounter Care Teams Butcher Head Relationship Specialty Start Date End Date Travis Castaneda MD [address] [place] [address] PCP - General Internal Medicine 10/29/18 09/27/23 documented as of this encounter
--- OUTSIDE RECORDS SUMMARY | 2024-02-29 08:59 | XMS_ITS | Encounter Summary ---
[place] [address] Care Team Providers Care Concrete Floater Name Role Phone Travis Castaneda MD Primary Care Provider + [phone] Reason for Visit * Auth/Cert (Routine) Specialty Diagnoses / Procedures Referred By Contsola t Referred To Contact Diagnoses Hypoxia COPD exacerbation COPD with acute exacerbation Chest pain, unspecified type Ming Rice MD [facility] Referral ID Status Reason Start Date Expiration Date Visits Re quested Visits Authorized [id number] 1 1 Encounter Details Date Type Department Care Team (Latest Contact Info) Description 12/13/2022 5:25 AM EDT - 12/13/2022 11:59 PM EDT Hospital Encounter Non-In[place] [address] Discharge Disposition: Home Social History Tobacco Use [...] take home doses, [facility] [phone] last dose 12/12/22 per patient LORazepam (ATIVAN) [...] 03/18/2024 8:30 AM EST [place] [address] 03/18/2024 9:30 AM EST [place] [phone] Hetal Ojeda MD [facility] [place] [address] documented as of this encounter Procedures Procedure Name Priority Date/Time Associated Diagnosis Comments ECHO COMPLETE W CONTRAST Routine 12/13/2022 9:06 AM EDT COPD with acute exacerbation Hypoxia Chest pain, unspecified type documented in this encounter Visit Diagnoses Not on filedocumented in this encounter Administered Medications Inactive Administered Medications - up to 3 most recent administrations Medication Order MAR Action Action Date Dose Rate Site perflutren lipid microspheres (Definity) injection 0.5 mL 0.5 mL, Intravenous, ONCE PRN, 1 dose, Starting on Mon12/13/22 at 0907, Until Mon12/13/22 at 0907, Other, for enhancement of sub-optimal echo images, Echo Lab (Intra-Procedure), Routine Given 12/13/2022 9:07 AM EDT 0.5 mLs documented in this encounter Care Teams Concrete Floater Relationship Specialty Start Date End Date Travis Castaneda MD [address] [place] [id number] PCP - General Internal Medicine 10/29/18 09/27/23 documented as of this encounter
--- OUTSIDE RECORDS SUMMARY | 2024-02-29 08:59 | XMS_ITS | Encounter Summary ---
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 Yoselin Bonilla RN - 12/12/2022 12:30 PM EDT . * Jasper Stephens MD - 12/12/2022 9:50 AM EDT ED Resident Note HPI: Garret Barros is a 47 y.o. male who presents to the Emergency Department for shortness of breath. Patient states he has a long history of trouble breathing but over the past week it has gotten worse and has had more chest pain with coughing, noting that it feels like the previous time he had a pneumonia. Pt states he was recently at pulm clinic and tried to do PFTs but had difficulty with breathing and pain. Pt also endorses a headache. When going through ROS, pt states that he hasn't had a bowel movement in over a week, but states that he's had these episodes before. On chart review, pt has opioid-induced constipation for hx of ALENA in remission. Denies all else. ROS as per HPI Vitals: ED Triage Vitals BP: (!) 138/108 [12/12/22902] Heart Rate: 86 [12/12/22900] Resp: 18 [12/12/22900] Temp: 36.6 ??C (97.9 ??F) [12/12/22900] Temp src: Oral [12/12/22 0901] SpO2: 90 % [12/12/22 0903] O2 Device: n/a O2 Flow Rate (L/min): n/a Physical Exam Constitutional: Appearance: He is normal weight. HENT: Head: Normocephalic. Right Ear: External ear normal. Left Ear: External ear normal. Nose: Nose normal. Mouth/Throat: Mouth: Mucous membranes are moist. Pharynx: Oropharynx is clear. Eyes: Extraocular Movements: Extraocular movements intact. Conjunctiva/sclera: Conjunctivae normal. Pupils: Pupils are equal, round, and reactive to light. Cardiovascular: Rate and Rhythm: Normal rate and regular rhythm. Pulses: Normal pulses. Heart sounds: Normal heart sounds. Pulmonary: Effort: Respiratory distress present. Breath sounds: Wheezing present. Abdominal: General: There is distension. Comments: Abdomen is distended, but with only slight TTP to bl lower quadrants. Musculoskeletal: General: Normal range of motion. Cervical back: Normal range of motion. Comments: R BKA Skin: General: Skin is warm and dry. Capillary Refill: Capillary refill takes less than 2 seconds. Neurological: General: No focal deficit present. Mental Status: He is alert. Psychiatric: Mood and Affect: Mood normal. ED Course: I have reviewed labs and imaging, images and available reports, and they are significant for: XR Chest PA & Lateral (Generic) Final Result 1. New perihilar congestion, peripheral septal thickening, and trace bilateral pleural effusions suggestive of pulmonary edema, perhaps related to heart failure or other cause of vascular congestion and interstitial edema. 2. Stable chronic emphysematous changes. I have personally reviewed the image(s) and the resident's interpretation and agree with the findings, Gayathri Moore MD at 12/12/2022 10:11 AM Thank you for letting us participate in the care of this patient. If you are a health care provider and have any questions regarding this report, please contact the number below. For patients who have questions please contact the health healthcare account manager that requested your imaging first. Pt seen in ED, hx and PE taken. Labs, EKG, CXR, Solumderol 125, duonebs, azithro 500IV ordered. CXR with perihilar congestion, pleural edema. POC Heart US with mild dilation of RA and RV, EF normal. Admitted to medicine. Assessment and Plan: 47 y.o. male with long history of Asthma-COPD (GOLD stage D), numerous exacerbations, recent smoker, ALENA in remission and not on current medications, anxiety, HTN, here for SOB and chest pain with coughing increasing over the past week. Pt has several at-home medications that he is compliant with but has not helped over the past week. Of note, pt says he has been without his nebulizer for some time because it is broken. Pt is on 3-5 L at home. In ED pt started on 3L, satting at about 86%. Pt received duonebsx3, 125 solumedrol, and 500 azithro while in ED w/ improvement in sats to 95% on 3L. VBG: pH 7.30, CO2 78, Bicarb 37.7. CXR w/o clear focal consolidation, but w/ perihilar congestion, pleural edema. EKG showing junctional rhythm. POC Heart US with mild dilation of RA and RV, EF normal,likely d/t long hx of COPD w/ recurrent exacerbations. Pt re- examined and has diffuse, unimproved wheezing in all lung sanchez. Overall pt likely has an acute COPD exacerbation likely related to non-compliance with his nebulizer as it is broken at this time. Pt states that he is due to get another one sometime next week. Pt will need to talk to care management to see if pt can have nebulizer on hospital discharge. Pt admitted to medicine for eval and mgmt of acute on chronic asthma-COPD exacerbation. The visit findings, diagnosis, and care plan were discussed with the patient. Jasper Stephens MD Resident 12/12/22 5366 Associated attestation - Wilver Feng MD - 12/13/2022 1:06 AM EDT ED ATTENDING ATTESTATION See my note for additional details The patient was seen in conjunction with the resident physician. I have independently performed thekey portions of the history and physical exam. I have personally reviewed nursing notes, vital signs, and diagnostic studies including labs, imaging studies and EKGs. I have discussed the details of the case with the resident and agree with the assessment and plan as described in the resident's note, unless stated otherwise in my separate note. I have examined this patient and agree with the note as written. He was in significant respiratory distress upon arrival, with hypercarbia and diffuse wheezing, desatting to 85%. He improved with 3 nebulizers, but still has diffuse wheezing and desaturation. He does not have a nebulizer that is in working condition at home, and warrants admission. He was given antibiotic, steroid and nebulized inhalers. He will be admitted to hospital medicine. documented in this encounter Miscellaneous Notes * Plan of Care - Vaibhav Patton - 12/20/2022 12:00 PM EDT Problem: Adult Inpatient Plan of Care Goal: Plan of Care Review Outcome: Outcome (s) achieved Goal: Patient-Specific Goal (Individualized) Outcome: Outcome (s) achieved Goal: Absence of Hospital-Acquired Illness or Injury Outcome: Outcome (s) achieved Goal: Optimal Comfort and Wellbeing Outcome: Outcome (s) achieved Goal: Readiness for Transition of Care Outcome: Outcome (s) achieved Problem: Fall Injury Risk Goal: Absence of Fall and Fall-Related Injury Outcome: Outcome (s) achieved Problem: Pain Acute Goal: Acceptable Pain Control and Functional Ability Outcome: Outcome (s) achieved Problem: Infection Goal: Absence of Infection Signs and Symptoms Outcome: Outcome (s) achieved * Care Management Discharge - Estephanie Fairbanks RN - 12/20/2022 8:19 AM EDT CARE MANAGEMENT FINAL DISCHARGE NOTE Chart reviewed, care reviewed with primary team and at interdisciplinary rounds. Patient is medically ready and anticipated to discharge home 12/19/22. RCT will transport Federico home. RCT will pick Garret up at the inpatient visitors entrance at 1210. Regulo Ferrari states she will deliver an oxygen tank to patient's room at 1130, prior to patient'sDC. Needs for Transition of Care: Plan for discharge is: Outpatient Agency/Support Group Needs: None Resp Needs: Nebs Company: [employer] Agency Referrals & Follow-up Care: NA Transportation: health plan transportation Wheelchair van/Ambulance? No Functional status prior to admission: Independent Home Environment: Others in the home: friend(s) (Pt lives with his friends Geovany and Mo.). Current Living Arrangements: home/apartment/condo. Accessibility Concerns:resides in a double wide manufactured home.. Current Functional Ability: Independent DME used at home: oxygen, respiratory supplies, shower chair, prosthesis (Home O2 at 2L with [employer]. Nonfunctional nebulizer. Pt has a prosthetic leg.) DME Needed at Discharge: oxygen Patient is insured through: Primary Insurance: MEDICARE Payor: MEDICARE / Plan: MEDICARE PART A & B / Product Type: *No Product type* / Secondary Insurance: MEDICAID [place] Prescription Coverage: Yes This plan was formulated with input from patient, Garret and team. All are in agreement with plan. Estephanie Fairbanks RN [phone] Pager [phone] * Plan of Care - Vaibhav Patton - 12/19/2022 2:26 PM EDT OUTCOME EVALUATION NOTE: OUTCOME SUMMARY: Pt A&O&4, 2L NC, expiratory wheezes lower lobes improved from yesterday. SPO2/HR/Temp/RR WNL, however notable elevated blood pressures; medication orders changed. Pt continues to move around independently, manage all ADLs independently. Discharge planned for tomorrow. Will continue to follow the plan of care and update as needed. PLAN MOVING FORWARD: Pain management Nebulizer treatments Discharge planning INDIVIDUALIZED FALL PREVENTION INTERVENTIONS: Patient-specific fall risk factors per assessment: [current deficits]: Right BKA with prosthetic, unsteady gait with refusal of RW, tubes and lines Assistance [level of assistance required for transfers and ambulation]: Independent Supervision [direct monitoring required during toileting and ADLs]: Independent Surveillance [continuous indirect monitoring]: Pt refuses masimo, purposeful rounding, room close to nurses' station, call light within reach Patient-specific fall prevention interventions for sensory deficits provided, if applicable: [X] No(patient refused) CARE PLAN GOAL OUTCOME EVALUATION: Problem: Adult [...] Outcome: Ongoing (Interventions Implemented as Appropriate) Problem: Infection Goal: Absence of Infection Signs and Symptoms Outcome: Ongoing (Interventions Implemented as Appropriate) * Consult Note - Trenton Torres APRN - 12/19/2022 12:52 PM EDT BIT Evaluation Referral source: Nursing referral Reason for referral: Psychosocial stress Trouble coping Relevant history: Mr. 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 Mr. Barros is A&Ox4, pleasant, and cooperative, irritable at times, endorses acute stress with pending discharge they don't know what is wrong with me but they are sending me home, denies opioid withdrawal symptoms or craving - getting outpatient dose Methadone 132 mg daily, denies AH/VH, denies SI/HI, endorses a history of traumatic stress, denies active PTSD symptoms. Mr. Barros endorses acute stress with the prospect of discharging without knowing what is wrong withmy back. He expressed frustration with feeling pushed out. He reports having appealed his discharge twice this is the best hospital around and even they don't know what is wrong with me. He was somewhat receptive to active listening and validation. He was open to instruction in 4-7-8 Breathingtechnique for acute stress coping and received a printed resource for reference. He denies the needfor additional stress coping resources at this time. Mr. Barros endorses a history of traumatic stress and reports current engagement in outpatient therapy. The benefits of Trauma-Focused EMDR Therapy were discussed and resources were provided. Mr. Barros reports being motivated to remain abstinent from illicit opioids with the ongoing clinicalsupport of Methadone assisted therapy at [facility] in [facility], where he has been a patient for 15+ years, and is agreeable to consultation between sc primary team and [facility] in regard to Methadonedosing and transfer of care. He denies any recent alcohol or illicit drug use. [address] [place] [address] Assessment: Mr. Barros is a 47-year-old man admitted with acute on chronic dyspnea. 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 Currently with acute stress with pending discharge they don't know what is wrong with me but they are sending me home. Currently without opioid withdrawal symptoms or craving - getting outpatient dose Methadone 132 mg daily, no acute safety concerns. He expressed frustration with feeling pushed out and has appealed his discharge twice. He was somewhat receptive to active listening and validation. He was encouraged to practice 4-7-8 Breathing technique for acute stress coping. He was encouraged to consider engagement in Trauma-Focused EMDR Therapy. He denies the need for additional stress coping resources at this time. Motivated to remain abstinent from illicit opioids with the ongoing clinical support ofM[facility] at [facility] and is agreeable to consultation between sc primary team and [facility] in regard to Methadone dosing and transfer of care. Interventions delivered: Consulted with care team Mindfulness Based Stress Reduction Resource coordination - outpatient mental health Supportive therapy Other: EMDR Therapy education Recommend: -Continued consultation between primary team and [facility] in regard to Methadone dosing and transfer of care. Plan: 1. Patient was encouraged to practice 4-7-8 Breathing technique for acute stress coping. 2. Patient was encouraged to consider engagement in Trauma-Focused EMDR Therapy. 3. Patient plans to remain abstinent from illicit opioids with the ongoing clinical support of Methadone assisted therapy at [facility]. Outstanding Discharge Needs: Naloxone prescription Primary team should notify the outpatient methadone treatment program of the time of discharge and the time and amount of last dose of methadone to ensure that outpatient pharmacotherapy can be resumed without interruption. Time spent with the patient (min):15 minutes Time spent on case coordination (min): 15 minutes * Plan of Care - Brittney Rangel RN - 12/19/2022 1:07 AM EDT OUTCOME EVALUATION NOTE: OUTCOME SUMMARY: Patient A&O x 4. VS as charted on NC 2L and declining to wear continuous Masimo sensor. Complains of unmanaged back pain. Drinking beverages and voiding adequately. UA w/ culture sent again at [facility] after having negative results on 12/16. Pt requesting many snacks-eugene crackers and peanutbutter and g-jules. [place] and cookies given as well. No acute events. Will ctm and notify team of any changes. PLAN MOVING FORWARD: O2 management Pain/anxiety management VS monitoring D/C planning I&Os INDIVIDUALIZED FALL PREVENTION INTERVENTIONS: Patient-specific fall risk factors per assessment: [current deficits]: Hospital environment, Lines/tubes, Medication side effects, Unsteady gait and refusal to use walker when ambulating, refuses bedalarm Assistance [level of assistance required for transfers and ambulation]: Independent Supervision [direct monitoring required during toileting and ADLs]: Independent Surveillance [continuous indirect monitoring]: Refuses Masimo, Close to nurses station, nurse rounding Patient-specific fall prevention interventions for sensory deficits provided, if applicable: As above * Patient Refusal of Care - Brittney Rangel RN - 12/19/2022 12:55 AM EDT Patient refusing to wear continuous Masimo sensor. The reason pt gave for this refusal was doesn't want to listen to the noise from it. Patient is wearing his oxygen via nasal cannula. Nursing actions taken during this shift to address patient???s refusal included Education about importance of care Plan to address patient???s refusal include Nursing leadership notified, frequent visual checks andspot-checking. * Plan of Care - Vaibhav Patton - 12/18/2022 7:49 PM EDT OUTCOME EVALUATION NOTE: OUTCOME SUMMARY: Pt A&O&4, 2L NC, expiratory wheezes all lobes improved by nebulizer treatments. SPO2/HR/Temp/RR WNL, however notable elevated blood pressures. Pt c/o pain, worsening throughout the shift; MD notified and came to bedside to assess, ordered CXR and increased prednisone. Pain continued to worsen despite all interventions, MD notified a second time, came to bedside to assess, ordered UA, which is pending. Pt continues to move around independently, manage all ADLs independently. Will continue to follow the plan of care and update as needed. PLAN MOVING FORWARD: Pain management Nebulizer treatments Discharge planning INDIVIDUALIZED FALL PREVENTION INTERVENTIONS: Patient-specific fall risk factors per assessment: [current deficits]: Right BKA with prosthetic, unsteady gait with refusal of RW, tubes and lines Assistance [level of assistance required for transfers and ambulation]: Independent Supervision [direct monitoring required during toileting and ADLs]: Independent Surveillance [continuous indirect monitoring]: Pt refuses masimo, purposeful rounding, room close to nurses' station, call light within reach Patient-specific fall prevention interventions for sensory deficits provided, if applicable: [X] No(patient refused) CARE PLAN GOAL OUTCOME EVALUATION: Problem: Adult [...] Outcome: Ongoing (Interventions Implemented as Appropriate) Problem: Infection Goal: Absence of Infection Signs and Symptoms Outcome: Ongoing (Interventions Implemented as Appropriate) * Plan of Care - Alexy Pina RN - 12/18/2022 6:44 AM EDT Problem: Adult Inpatient Plan of [...] Outcome: Ongoing (Interventions Implemented as Appropriate) Problem: Infection Goal: Absence of Infection Signs and Symptoms Outcome: Ongoing (Interventions Implemented as Appropriate) * Plan of Care - Abi Coyle LPN - 12/18/2022 6:40 AM EDT OUTCOME EVALUATION NOTE: OUTCOME SUMMARY: Patient is AAOx4, Respirations even unlabored and breath sounds audible and CTA all lobes, patient remains on 2L NC, patient is able to verbalize needs, PERRLA. Moderate Bilateral radial pulses palpable , strong bilateral femoral pulses palpable. Patient was able to tolerate medications and interventions per order. Patient reported pain and anxiety and was given PRN medications as ordered with favorable results. PLAN MOVING FORWARD: Nebulizer treatment Discharge planning INDIVIDUALIZED FALL PREVENTION INTERVENTIONS: Patient-specific fall risk factors per assessment: [current deficits]: Right AKA, unsteady gait, medications, refusal to use walker , Oxygen tube Assistance [level of assistance required for transfers and ambulation]: Independent Supervision [direct monitoring required during toileting and ADLs]: None Surveillance [continuous indirect monitoring]: Purposeful rounding, bed is in low locked position, call light and items used within reach, room close to nurses station, Patient-specific fall prevention interventions for sensory deficits provided, if applicable: [X] No CPG GOAL OUTCOME EVALUATION: Problem: Adult Inpatient Plan [...] Outcome: Ongoing (Interventions Implemented as Appropriate) Problem: Infection Goal: Absence of Infection Signs and Symptoms Outcome: Ongoing (Interventions Implemented as Appropriate) * Plan of Care - Blanca Arora RN - 12/17/2022 4:50 PM EDT Care plan reviewed. Problem: Adult Inpatient Plan of Care Goal: [...] Outcome: Ongoing (Interventions Implemented as Appropriate) Problem: Infection Goal: Absence of Infection Signs and Symptoms Outcome: Ongoing (Interventions Implemented as Appropriate) * Plan of Care - Brittney Rangel RN - 12/17/2022 7:25 AM EDT OUTCOME EVALUATION NOTE: OUTCOME SUMMARY: Patient A&O x 4. VS as charted on NC 2L. Complains of unmanaged back pain, also chest and abd discomfort. Pt stating he is certain that he has a kidney infection and wants his urine tested. Pt requesting many snacks and snacking intermittently overnight while awake. Pt had PIV infiltrate. See IV nurse Venice's note. New PIV placed for IV Toradol administration. Recently patient has been verymobile; coming out to nurses station for various things, interrupting nurses at station during reports and while nurses are in other patient's rooms, putting hands into food carts looking for his tray instead of utilizing call gilmore for assistance. Appropriate behavior and expectations explained to patient by multiple staff with some improvement from yesterday where patient was cussing at staff and roommate using derogatory racial slurs while addressing his provider and threatening to have provider taken care of. Patient also threatened to smash both his and his roommates Masimo d/t its alert sounds. Will ctm and notify team of any changes. PLAN MOVING FORWARD: O2 management Pain/anxiety management VS monitoring D/C planning I&Os INDIVIDUALIZED FALL PREVENTION INTERVENTIONS: Patient-specific fall risk factors per assessment: [current deficits]: Hospital environment, Lines/tubes, Medication side effects, Unsteady gait and refusal to use walker when ambulating, refuses bedalarm Assistance [level of assistance required for transfers and ambulation]: Independent Supervision [direct monitoring required during toileting and ADLs]: Independent Surveillance [continuous indirect monitoring]: Refuses Masimo, Close to nurses station, nurse rounding Patient-specific fall prevention interventions for sensory deficits provided, if applicable: As above * Consult Note - Venice Rizzo RN - 12/17/2022 1:44 AM EDT Images from the original note were not included. Infiltration/Extravasation Scale Garret Barros [id number] 134/134-B Infiltration appearance: Infiltration harm % for this extremity 18% Based on measurement calculation (greatest measurement Xdivided by length of extremity multiplied by 100= %) Considerations and Clemens: Consider the following: If the percentage of limb affected is <5% then select 1 If the percentage of limb affected is 6-25% then select 2 If the percentage of limb affected is 26-49% then select 3 If the percentage of limb affected is > 50% then always select 4 No symptoms Skin blanched Edema < 1 inch (2.5 cm) in any direction Cool to touch With or without pain Skin blanched Edema 1 to 6 inches (2.5 to 15 cm) in any direction Cool to touch without pain Skin blanched, translucent Gross edema > 6 inches (15 cm) in any direction Cool to touch Mild to moderate pain Possible numbness Skin blanched, translucent Skin tight, leaking Skin discolored, bruised, swollen Gross edema > 6 inches in any direction Deep pitting tissue edema Circulatory impairment Moderate to severe pain Skin Blisters Skin Necrosis/Breakdown/Sloughing Infiltration appearance score: 2 Medication Name infiltrated is NS W/ TORODOL which is a (n) vesicant Location of infiltration:right arm: anterior Measurement in cm of length and width of affected area---Affected extremity 10 CM BY 12 CM Measurement of Circumference in cm of Infiltrated area of affected extremity 30 CM AT 7 CM BELOW AC Measurement of Circumference in cm of Unaffected extremity 26 (at same location as affected extremity) Pulses present on affected extremity yes Medicated treatment given per policy/ order: no treatment indicated Plan for continued monitoring of infiltration/extravasation Name of MD contacted TEAM PAGER [phone] NOTIFIED 1:44 AM Name of RN contacted BERNA KING 1:44 AM Name of Pharmacist if consulted N/A 1:44 AM Plastics Provider contacted: no 1:44 AM Name of Plastics MD (if consulted) PHOTO TO BE ADDED HERE (Mandatory photo for infiltrations/ extravasations scoring a stage 2 or greater, but recommended for stage 1. Include measuring tape and identifier in the photo) FLIGHT DISPATCHER CARING FOR THIS PATIENT WILL CONTINUE TO MONITOR AND WILL ASSUME CARE, VASCULAR ACCESS WILL NOT FOLLOW THIS EVENT AT THE SIGNING OF THIS NOTE. * Plan of Care - Abi Coyle LPN - 12/16/2022 5:32 PM EDT OUTCOME EVALUATION NOTE: OUTCOME SUMMARY: Patient is AAOx4, Respirations even unlabored and breath sounds audible and CTA all lobes, patient remains on 2L NC, patient is able to verbalize needs, PERRLA. Moderate Palpable radial pulses, strong bilateral femoral pulses. Patient was able to tolerate medications and interventions per order. Patient reported pain and anxiety and was given PRN medications as ordered with favorable results. PLAN MOVING FORWARD: Nebulizer treatment Discharge planning INDIVIDUALIZED FALL PREVENTION INTERVENTIONS: Patient-specific fall risk factors per assessment: [current deficits]: Right AKA, unsteady gait, medications, refusal to use walker , Oxygen tube Assistance [level of assistance required for transfers and ambulation]: Independent Supervision [direct monitoring required during toileting and ADLs]: None Surveillance [continuous indirect monitoring]: Purposeful rounding, bed is in low locked position, call light and items used within reach, room close to nurses station, Patient-specific fall prevention interventions for sensory deficits provided, if applicable: [X] No CPG GOAL OUTCOME EVALUATION: Problem: Adult Inpatient Plan [...] Outcome: Ongoing (Interventions Implemented as Appropriate) Problem: Infection Goal: Absence of Infection Signs and Symptoms Outcome: Ongoing (Interventions Implemented as Appropriate) * Plan of Care - Blanca Arora RN - 12/16/2022 2:36 PM EDT Care plan reviewed. Problem: Adult Inpatient Plan of Care Goal: [...] Outcome: Ongoing (Interventions Implemented as Appropriate) Problem: Infection Goal: Absence of Infection Signs and Symptoms Outcome: Ongoing (Interventions Implemented as Appropriate) * Plan of Care - Brittney Rangel RN - 12/16/2022 7:02 AM EDT OUTCOME EVALUATION NOTE: OUTCOME SUMMARY: Patient A&O x 4. VS as charted on NC 2L. Complains of unmanaged back pain, also chest and abd discomfort. Pt stating he is certain that he has a kidney infection. Pt requesting coffee x 3 and eugene crackers snacking intermittently overnight while awake. Pt yelling this am about roommates Masimo. Will ctm and notify team of any changes. PLAN MOVING FORWARD: O2 management Pain/anxiety management VS monitoring D/C planning I&Os INDIVIDUALIZED FALL PREVENTION INTERVENTIONS: Patient-specific fall risk factors per assessment: [current deficits]: Hospital environment, Lines/tubes, Medication side effects, Unsteady gait and refusal to use walker when ambulating, refuses bedalarm Assistance [level of assistance required for transfers and ambulation]: Independent Supervision [direct monitoring required during toileting and ADLs]: Independent Surveillance [continuous indirect monitoring]: Refuses Masimo, Close to nurses station, nurse rounding Patient-specific fall prevention interventions for sensory deficits provided, if applicable: As above * Plan of Care - Blanca Arora RN - 12/15/2022 12:00 PM EDT Care plan reviewed. Problem: Adult Inpatient Plan of Care Goal: [...] Injury Outcome: Ongoing (Interventions Implemented as Appropriate) * Plan of Care - Joy Miller RN - 12/14/2022 10:29 PM EDT OUTCOME EVALUATION NOTE: OUTCOME SUMMARY: Pt A&Ox4, intermittent O2 on NC for comfort - O2 sat >90%. Pt anxious, repeating statements and requests. Encouraged to rest. Unable to obtain blood pressure as patient refuses to sit still. Refusing Masimo as well. PLAN MOVING FORWARD: Promote rest/sleep. INDIVIDUALIZED FALL PREVENTION INTERVENTIONS: Patient-specific fall risk factors per assessment: [current deficits]: R AKA, oxygen tubing Assistance [level of assistance required for transfers and ambulation]: Indep Supervision [direct monitoring required during toileting and ADLs]: no supervision required Surveillance [continuous indirect monitoring]: refusing Masimo. * Care Management - Estephanie Fairbanks RN - 12/14/2022 11:28 AM EDT GINGER rounded on Garret to discuss his concerns regarding discharge. He states he does not feel ready to DC as he can't breathe and is constipated. He states his home nebulizer is broken and states [facility] is unable to bring a new machine until next 12/21/22. GINGER has left a message with Regulo Jones ([phone]) to verify status of planned home delivery of new DME. Medical Team has been updated regarding patient's concerns and updated regarding status of nebulizer delivery. Estephanie Fairbanks RN [phone] Pager [phone] ADDENDUM 1500: GINGER rounded on Garret to discuss discharge plans and drop off new donated nebulizer. has given Garret the IMM. Garret observed to be on the phone and stated I am on the phone with Siva, appealing my discharge. Medical team is aware. * Plan of Care - Carlee Rizzo RN - 12/14/2022 7:18 AM EDT OUTCOME EVALUATION NOTE: OUTCOME SUMMARY: Pt A&Ox4, VSS on RA, except hypertension, MD's aware. C/o anxiety and SOB, receiving q4 ativan round the clock with moderate effect, requesting ativan frequently. Received x1 atarax dose around shift change. Patient awake most of the night, frequently pressing call button and complaining when requests like coffee and snacks are not retrieved immediately, patient educated on the need for staffto prioritize care, no evidence of understanding. Patient frequently using curse words towards staff, education on appropriate language provided, no evidence of understanding. PLAN MOVING FORWARD: Neb tx Anxiety mgmt Psych consult Appropriate behavior continuing education INDIVIDUALIZED FALL PREVENTION INTERVENTIONS: Patient-specific fall risk factors per assessment: [current deficits]: O2 tubing, RLE prosthetic Assistance [level of assistance required for transfers and ambulation]: SBA Supervision [direct monitoring required during toileting and ADLs]: SBA Surveillance [continuous indirect monitoring]: Masimo, purposeful rounding * Plan of Care - Flori Mccracken RN - 12/13/2022 5:39 PM EDT OUTCOME EVALUATION NOTE: OUTCOME SUMMARY: Assumed care at 1000, Pt A&Ox4, reports persistent anxiety and shortness of breath. Scheduled/PRN neb tx given with good effect. Ativan dosage changed by team, 2mg Q4H PRN. PRN atarax given x2 this shift with good effect. Ambulating in halls on RA, SpO2 range 90-93%, does endorse some increasedSOB with activity. Safety maintained with purposeful rounding and frequent toileting. Refusing bed alarm. No acute changes or events this shift. PLAN MOVING FORWARD: -neb txs -Pain/anxiety management -Encourage ambulation -Psych consult INDIVIDUALIZED FALL PREVENTION INTERVENTIONS: Patient-specific fall risk factors per assessment: [current deficits]: hospital setting, O2 tubing Assistance [level of assistance required for transfers and ambulation]: standby Supervision [direct monitoring required during toileting and ADLs]: standby Surveillance [continuous indirect monitoring]: Masimo, purposeful rounding Patient-specific fall prevention interventions for sensory deficits provided, if applicable: [X] N/A CARE PLAN GOAL OUTCOME EVALUATION: * Plan of Care - Tiera Romero RN - 12/13/2022 2:15 AM EDT OUTCOME EVALUATION NOTE: OUTCOME SUMMARY: Assumed care at 1000. Pt is A&Ox4. VSS on 3L via NC. Assessment as documented. Meds given per MAR; PRN Ativan given at 0200 and 0630 d/t anxiety. Safety maintained with purposeful rounding, pt refused bed alarm. Sleep/rest promoted. PLAN MOVING FORWARD: - Nebulizer treatments - Pain management INDIVIDUALIZED FALL PREVENTION INTERVENTIONS: Patient-specific fall risk factors per assessment: [current deficits]: hospital setting Assistance [level of assistance required for transfers and ambulation]: independent Supervision [direct monitoring required during toileting and ADLs]: independent Surveillance [continuous indirect monitoring]: masimo, purposeful rounding Patient-specific fall prevention interventions for sensory deficits provided, if applicable: [X] N/A CARE PLAN GOAL OUTCOME EVALUATION: Problem: Adult Inpatient Plan of Care Goal: Plan of Care Review 12/13/2022214 by Tiera Romero RN Outcome: Ongoing (Interventions Implemented as Appropriate) 12/13/202237 by Tiera Romero RN Outcome: Ongoing (Interventions Implemented as Appropriate) Problem: Adult Inpatient Plan of Care Goal: Patient-Specific Goal (Individualized) 12/13/2022214 by Tiera Romero RN Outcome: Ongoing (Interventions Implemented as Appropriate) 12/13/202237 by Tiera Romero RN Outcome: Ongoing (Interventions Implemented as Appropriate) Problem: Adult Inpatient Plan of Care Goal: Absence of Hospital-Acquired Illness or Injury 12/13/2022214 by Tiera Romero RN Outcome: Ongoing (Interventions Implemented as Appropriate) 12/13/202237 by Tiera Romero RN Outcome: Ongoing (Interventions Implemented as Appropriate) Problem: Adult Inpatient Plan of Care Goal: Optimal Comfort and Wellbeing 12/13/2022214 by Tiera Romero RN Outcome: Ongoing (Interventions Implemented as Appropriate) 12/13/202237 by Tiera Romero RN Outcome: Ongoing (Interventions Implemented as Appropriate) Problem: Adult Inpatient Plan of Care Goal: Readiness for Transition of Care 12/13/2022214 by Tiera Romero RN Outcome: Ongoing (Interventions Implemented as Appropriate) 12/13/202237 by Tiera Romero RN Outcome: Ongoing (Interventions Implemented as Appropriate) Problem: Fall Injury Risk Goal: Absence of Fall and Fall-Related Injury 12/13/2022214 by Tiera Romero RN Outcome: Ongoing (Interventions Implemented as Appropriate) 12/13/202237 by Tiera Romero RN Outcome: Ongoing (Interventions Implemented as Appropriate) * Patient Refusal of Care - Tiera Romero RN - 12/12/2022 11:45 PM EDT Patient refusing to have bed alarm on. The reason pt gave for this refusal was he stated he does not need it. Nursing actions taken during this shift to address patient???s refusal included Educationabout importance of care . * Consult Note - Kady Renner [facility] - 12/12/2022 11:44 PM EDT TelePharmacy Home Medication List Update for Medication Reconciliation 12/12/22 11:44 PM Garret Barros 1975 Allergies Allergen Reactions Penicillins Other reaction(s): Swelling of throat Person Interviewed: patient Quality of Interview/accuracy of medication list: good Sources used to compile medication list: [x] Epic medication list [x] SureScripts [] PCP/Specialist list [] Retail pharmacy [] Patient list [] MAR [] Other Changes made to home medication list: Additions: Testosterone 100mg IM every 14 days last dose about a week ago per patient. Deletions: Azithromycin Miralax Pericolace Changes: Lisinopril 40mg po daily (was 20mg daily) Duoneb inhale 1 vial via nebulizer q4h (was q6h) Ibuprofen 600mg po bid prn (was tid prn) Duloxetine 60mg po daily (was 60mg bid) Bisacodyl 5mg po daily (was daily prn) Additional Notes: Updated medication list with information provided by patient. Patient goes to [facility] in [facility] for methadone doses, gets take home doses. Tried to verify dose, clinic currently closed [phone]. Recommended changes: None The home medication list is now updated to the best of my knowledge and is ready to be reconciled by the provider. Please contact the TelePharmacy Medication Reconciliation Pharmacist at for any questions. Kady Renner RPH * Initial Assessments - Perla Cody RN - 12/12/2022 7:05 PM EDTSumreta: GINGER Initial Assessment Office of Care Management Initial Assessment Perla Cody RN reviewed record and discussed patient with Care Team. Source of Information: Team, bedside nurse, medical record, and Patient Introduced self/reviewed role; services accepted. Admitted From: Home Reason for Hospitalization: Per H&P: 47 y.o. male w/ PMH of GOLD stage D COPD, prior polysubstance use disorder, anxiety, and current smoker on HD# 0 presenting for RIVAS. Pt's PMH of COPD, currentcigarette use, symptoms of SOB, RIVAS, and wheezing on exam, and lack of access to COPD medications leads us to think that this is likely a mild COPD exacerbation. The severity of her exacerbation is likely mild as he has dyspnea, and decreased SaO2 (>92%). Other cause in this setting might be underlying heart failure. Pt has chest pain, RIVAS, pulmonary edema on CXR which can indicate HF. Pt has a slightly elevated WBC but no consolidation on CXR or symptoms of infections such as thus likely rivas sn't have pneumonia. Covid Vaccination Status: 1st, 2nd & booster Last COVID test: Lab Results Component Value Date COVID19 Not Detected 03/09/2020 [id number] Not Detected 05/30/2022 Past medical History: Past Medical History: Diagnosis Date Alcohol abuse Anxiety COPD (chronic obstructive pulmonary disease) Opioid abuse Hospitalizations Within the Past 30 Days: no previous admission in last 30 days Current Decision-Making Capacity: Self If AD's have not been completed the following surrogate would be Rosietahmina Pop, sister, surrogate decision maker per [place] decision making law. (Only good for 180 days) Any patient receiving care in [place] must abide by [place] law. The hierarchy for surrogate decision making [...] (i) The agent with financial power of divorce attorney or a conservator appointed in accordance with RSA 464-A. (j) The guardian of the patient???s estate. Advance Care Planning: Attempt Cardiopulmonary Resuscitation - Inpatient <no information> -Advanced Directive: No, need to discuss (Pt was given a [place] AD in the ED. Explained the importance of completing an AD and the [place] surrogacy law.) Pt would like to complete an AD while in the hospital. Current Coping/Education/Information Needs: Pt is having a hard time breathing. Current Functional Ability: unable to assess Functional Status Prior to Admission: Independent Prior ADLs & IADLs: Assistance Needed with ADLs & IADLs Cooking / Eating: Family / Friends Provide Meals (Geovany and Mo do most of the cooking.) Driving: Uses Senior / Medicaid Rides (Pt utilizes [facility].) Home Environment: Others in the home: friend(s) (Pt lives with his friends Geovany and Mo.). Current Living Arrangements: home/apartment/condo. Accessibility Concerns:resides in a double wide manufactured home.. Resource / Environmental Concerns: Resource/Environmental Concerns: none Current DME: oxygen, respiratory supplies, shower chair, prosthesis (Home O2 at 2L with [employer]. Nonfunctional nebulizer. Pt has a prosthetic leg.) Home Address confirmed as: [address] [place] [id number] Social & Family Supports: All names listed below confirmed with patient as current and correct Extended Emergency Contact Information Primary Emergency Contact: ROSIE POP [place] Mobile Relation: Sibling Current Care Provided by: self Provides Primary Care For: no one, unable/limited ability to care for self Caregiver if needed: none Quality of Family relationships: supportive (Pt has a sister living in [place].) Community Resources being provided currently: none Behavioral Health History: Hx of anxiety, depression and PTSD. Pt takes 2mg of Ativan for anxiety. Substance Use/Abuse listed: Social History Tobacco Use Smoking Status Some Days Packs/day: 0.25 Years: 30.00 Pack years: 7.50 Types: Cigarettes Smokeless Tobacco Never Tobacco Comments 1 pack last about 10 days; previously was 2 ppd- one pack lasts a month 0 No problems reported 1-2 Low level 3-5 Moderate level 6-8 Substantial level 9- 10 Severe level 0 to 7 points: Low risk 8 to 15 points: Medium risk 16 to 19 points: High risk 20 to 40 points: Addiction likely Other Pertinent/Service Specific Information: none Health/Prescription Coverage: Primary Insurance: MEDICARE Payor: MEDICARE / Plan: MEDICARE PART A & B / Product Type: *No Product type* / Secondary Insurance: MEDICAID [place] ONLY if patient has Medicare A&B - Does this patient have secondary insurance?: Yes ; Prescription Coverage: Yes Preferred Pharmacy: [id number] [address] [facility] [address] [facility] [address] [place] [address] [place] Status: Patient is a : No Primary Care Provider confirmed: Tarvis Castaneda MD [phone] Patient/Caregiver Goals of Treatment: Pt is hoping to breathe better with treatment. Potential Needs for Transition of Care: outpatient care, respiratory services, durable medical equipment Agency Referrals: Not Applicable Transportation: no concerns Transportation Anticipated: health plan transportation (Pt will need [facility] called for transportation.) Concerns to be Addressed: discharge planning Assessment: Patient is admitted to Medicine service for COPD Exacerbation. Plan: Pt will need a new nebulizer prior to discharge. He said that Regulo was supposed to bring one next Monday. Pt will need [facility] called to take him back home. A member of the Care Management team will continue to monitor progress, follow for continuity of care and assist with transition of care planning. Perla Cody RN, BSN, ACM-RETIREMENT ADMINISTRATORdatapower developer Office of Care Management Pager: [phone] documented in this encounter Plan of Treatment Upcoming Encounters Date Type Department Care Team (Late st Contact Info) Description 03/18/2024 8:30 AM EST Appointment [place] [address] 03/18/2024 9:30 AM EST Office [place] [phone] Hetal Ojeda MD [facility] [place] [address] Scheduled Orders Name Type Priority Associated Diagnoses Orde r Schedule EKG 12 Lead ECG STAT One Time for 1 Occurrences starting 12/12/2022 until 12/12/2022 documented as of this encounter Procedures Procedure Name Priority Date/Time Associated Diagnosis Comments URINE HOLD Routine 12/18/2022 7:36 PM EDT URINALYSIS WITH REFLEX CULTURE Routine 12/18/2022 7:36 PM EDT XR CHEST PA AND LATERAL Routine 12/18/2022 3:23 PM EDT XR PELVIS Routine 12/18/2022 10:05 AM EDT URINALYSIS WITH REFLEX CULTURE Routine 12/16/2022 10:06 AM EDT HEMOGRAM Routine 12/16/2022 4:27 AM EDT DIFFERENTIAL, AUTOMATED Routine 12/16/2022 4:27 AM EDT CBC (WITH DIFF) Routine 12/16/2022 4:27 AM EDT PHOSPHORUS Routine 12/16/2022 4:27 AM EDT MAGNESIUM Routine 12/16/2022 4:27 AM EDT BASIC METABOLIC PANEL Routine 12/16/2022 4:27 AM EDT EKG 12-LEAD Routine 12/15/2022 12:25 PM EDT Chest pain, unspecified type HEMOGRAM Routine 12/15/2022 4:39 AM EDT DIFFERENTIAL, AUTOMATED Routine 12/15/2022 4:39 AM EDT CBC (WITH DIFF) Routine 12/15/2022 4:39 AM EDT PHOSPHORUS Routine 12/15/2022 4:39 AM EDT MAGNESIUM Routine 12/15/2022 4:39 AM EDT COMPREHENSIVE METABOLIC PANEL Routine 12/15/2022 4:39 AM EDT HEMOGRAM Routine 12/14/2022 4:18 AM EDT DIFFERENTIAL, AUTOMATED Routine 12/14/2022 4:18 AM EDT CBC (WITH DIFF) Routine 12/14/2022 4:18 AM EDT PHOSPHORUS Routine 12/14/2022 4:18 AM EDT MAGNESIUM Routine 12/14/2022 4:18 AM EDT COMPREHENSIVE METABOLIC PANEL Routine 12/14/2022 4:18 AM EDT ECHO COMPLETE W CONTRAST Routine 12/13/2022 9:06 AM EDT COPD with acute exacerbation Hypoxia Chest pain, unspecified type HEMOGRAM Routine 12/13/2022 4:43 AM EDT DIFFERENTIAL, AUTOMATED Routine 12/13/2022 4:43 AM EDT CBC (WITH DIFF) Routine 12/13/2022 4:43 AM EDT PHOSPHORUS Routine 12/13/2022 4:43 AM EDT MAGNESIUM Routine 12/13/2022 4:43 AM EDT COMPREHENSIVE METABOLIC PANEL Routine 12/13/2022 4:43 AM EDT EKG 12-LEAD STAT 12/12/2022 7:51 PM EDT Chest pain, unspecified type EKG 12-LEAD STAT 12/12/2022 6:05 PM EDT TROPONIN - SERIES STAT 12/12/2022 4:4 8 PM EDT BLOOD GAS VENOUS ([facility]) Routine 1:18 PM EDT TROPONIN - SERIES STAT 12/12/2022 10: 50 AM EDT POTASSIUM STAT 12/12/2022 10:50 AM EDT PRO-BRAIN NATRIURETIC PEPTIDE STAT 12/12/2022 10:50 AM EDT BLOOD GAS VENOUS POC Routine 12/12/2022 10:28 AM EDT XR CHEST PA AND LATERAL STAT 12/12/2022 9:55 AM EDT EKG 12-LEAD STAT 12/12/2022 9:45 AM EDT HEMOGRAM STAT 12/12/2022 9:41 AM EDT DIFFERENTIAL, AUTOMATED STAT 12/12/2022 9:41 AM EDT CBC (WITH DIFF) STAT 12/12/2022 9:41 AM EDT BASIC METABOLIC PANEL STAT 12/12/2022 9:41 AM EDT documented in this encounter Results * Urine Hold (12/18/2022 7:36 PM EDT) Hold, Urine Sample in lab. [facility] Urine Urine / Unknown 12/18/2022 7 :36 PM EDT 12/18/2022 7:46 PM EDT Stan Shahid MD URINE ORDERABLES Performing Organization Address [facility] Co de Phone Number [facility] [place] [address] * Urinalysis with reflex Culture (12/18/2022 7:36 PM EDT) Glucose, Urine Dipstick Negative Negative mg/dL [facility] Protein, Urine Dipstick Negative Negative mg/dL [facility] Bilirubin, Urine Dipstick Negative Negative mg/dL [facility] Comment: Clinical correlation required for positive Urine Bilirubin results as false positive may occur with some drugs and drug related products. If a false positive is suspected a serum total bilirubin should be considered if clinically indicated. Urobilinogen, Urine Dipstick Normal Normal mg/dL [facility] pH, Urn (dipstick) 7.5 5.0 - 8.0 [facility] Blood, Urine Dipstick Negative Negative mg/dL [facility] Ketone, Urine Dipstick Negative Negative mg/dL [facility] Nitrite, Urine Dipstick Negative Negative [facility] Leukocytes, Urine Dipstick Negative Negative mcL [facility] Appearance, Urine Dipstick Clear Clear [facility] Specific [place] Urine Automated 1.013 1.005 - 1.030 [facility] Color, Urine Dipstick Yellow Yellow [facility] Reflex to Culture No [facility] First Catch Urine 12/18/2022 7:36 PM EDT 12/18/2022 7:45 PM EDT Narrative Resulting Agency Comment Spec In Lab Inés Perez MD URINE ORDERABLES Performing Organization Address City/[facility]/ZIP Co de Phone Number [facility] [place] [address] * XR Chest PA & Lateral (Generic) (12/18/2022 3:23 PM EDT) Anatomical Region Laterality Modality Chest N/A Digital Radiogra phy Impressions 12/18/2022 5:43 PM EDT 1. ??Bibasilar atelectasis and subsegmental atelectasis versus scarring in the right midlung. 2. ??No confluent airspace consolidation or effusions. 3. ??Pulmonary vascular congestion. No overt pulmonary edema. Thank you for letting us participate in the care of this patient. ??If you are a health care provider and have any questions regarding this report, please contact the number below. ??For patients who have questions please contact the health healthcare account manager that requested your imaging first. ? Electronically signed by: Lenard Payton MD, [facility] ??([phone]), at 12/18/2022 5:43 PM Narrative 12/18/2022 5:43 PM EDT EXAMINATION: XR CHEST PA AND LATERAL (GENERIC) CLINICAL HISTORY: Persistent wheezing, follow-up left lower lung base TECHNIQUE: PA and lateral views of the chest COMPARISON: Chest x-ray 2022, chest CT 09/15/2021 FINDINGS: Linear streaky subsegmental atelectasis in the bilateral lower lungs and similar subsegmental atelectasis or scarring in the right midlung. No confluent airspace consolidation. No pleural effusion or pneumothorax. Scattered small calcified granulomas in the left lower lung redemonstrated. Normal cardiomediastinal silhouette. Prominence of the central pulmonary vascularity without overt pulmonary edema. No acute osseous abnormality seen. The nosecone of a IVC filter projects over the visualized right abdomen. Procedure Note Lenard Payton MD - 12/18/2022 EXAMINATION: XR CHEST PA AND LATERAL (GENERIC) CLINICAL HISTORY: Persistent wheezing, follow-up left lower lung base TECHNIQUE: PA and lateral views of the chest COMPARISON: Chest x-ray 2022, chest CT 09/15/2021 FINDINGS: Linear streaky subsegmental atelectasis in the bilateral lower lungs andsimilar subsegmental atelectasis or scarring in the right midlung. No confluentairspace consolidation. No pleural effusion or pneumothorax. Scattered smallcalcified granulomas in the left lower lung redemonstrated. Normalcardiomediastinal silhouette. Prominence of the central pulmonary vascularity withoutovert pulmonary edema. No acute osseous abnormality seen. The nosecone of a IVCfilter projects over the visualized right abdomen. IMPRESSION 1. Bibasilar atelectasis and subsegmental atelectasis versus scarring inthe right midlung. 2. No confluent airspace consolidation or effusions. 3. Pulmonary vascular congestion. No overt pulmonary edema. Thank you for letting us participate in the care of this patient. If youare a health care provider and have any questions regarding this report,please contact the number below. For patients who have questions please contactthe health healthcare account manager that requested your imaging first. Inés Perez MD IMG DX ORDERABLES * XR Pelvis (Generic) (12/18/2022 10:05 AM EDT) Anatomical Region Laterality Modality Pelvis N/A Digital Radiogra phy Impressions 12/18/2022 10:17 AM EDT No acute osseous abnormalities of the pelvis. Thank you for letting us participate in the care of this patient. ??If you are a health care provider and have any questions regarding this report, please contact the number below. ??For patients who have questions please contact the health healthcare account manager that requested your imaging first. ? Electronically signed by: Gayathri Moore MD, [facility] ??([phone]), at 12/18/2022 10:17 AM Narrative 12/18/2022 10:17 AM EDT EXAMINATION: XR PELVIS (GENERIC) CLINICAL HISTORY: Persistently severe LT lower back pain, history of LT intertrochanteric area lesion, possible enchondroma per 05/2022 CTAP TECHNIQUE: 1 views of the pelvis COMPARISON: 06/01/2022 FINDINGS: Pelvic ring is intact. Sacroiliac joints are symmetric. Sacral arcuate lines appear preserved. Pubic symphysis is stable. There are degenerative changes of both hips, right slightly greater than left. Partially sclerotic lesion in the intertrochanteric region of the left proximal femur is unchanged. There are some dystrophic and soft tissue calcifications about the left hip which may reflect prior trauma or asymmetric insertional change. Procedure Note Gayathri Moore MD - 12/18/2022 EXAMINATION: XR PELVIS (GENERIC) CLINICAL HISTORY: Persistently severe LT lower back pain, history of LT intertrochanteric area lesion, possible enchondroma per 05/2022 CTAP TECHNIQUE: 1 views of the pelvis COMPARISON: 06/01/2022 FINDINGS: Pelvic ring is intact. Sacroiliac joints are symmetric. Sacral arcuatelines appear preserved. Pubic symphysis is stable. There are degenerativechanges of both hips, right slightly greater than left. Partially sclerotic lesion in the intertrochanteric region of the leftproximal femur is unchanged. There are some dystrophic and soft tissuecalcifications about the left hip which may reflect prior trauma or asymmetricinsertional change. IMPRESSION No acute osseous abnormalities of the pelvis. Thank you for letting us participate in the care of this patient. If youare a health care provider and have any questions regarding this report,please contact the number below. For patients who have questions please contactthe health healthcare account manager that requested your imaging first. Inés Perez MD IMG DX ORDERABLES * Urinalysis with reflex Culture (12/16/2022 10:06 AM EDT) Glucose, Urine Dipstick Negative Negative mg/dL [facility] Protein, Urine Dipstick Negative Negative mg/dL [facility] Bilirubin, Urine Dipstick Negative Negative mg/dL [facility] Comment: Clinical correlation required for positive Urine Bilirubin results as false positive may occur with some drugs and drug related products. If a false positive is suspected a serum total bilirubin should be considered if clinically indicated. Urobilinogen, Urine Dipstick Normal Normal mg/dL [facility] pH, Urn (dipstick) 6.0 5.0 - 8.0 [facility] Blood, Urine Dipstick Negative Negative mg/dL [facility] Ketone, Urine Dipstick Negative Negative mg/dL [facility] Nitrite, Urine Dipstick Negative Negative [facility] Leukocytes, Urine Dipstick Negative Negative mcL [facility] Appearance, Urine Dipstick Clear Clear [facility] Specific [place] Urine Automated 1.026 1.005 - 1.030 [facility] Color, Urine Dipstick Yellow Yellow [facility] Reflex to Culture No [facility] Clean Catch Urine 12/16/2022 10:06 AM EDT 12/16/2022 10:25 AM EDT Narrative Resulting Agency Comment Spec In Lab Ming Maldoando MD URINE ORDERABLE S Performing Organization Address City/State/[facility] Co de Phone Number [facility] [place] [address] * (ABNORMAL) Differential, Automated (12/16/2022 4:27 AM EDT) Neutrophil % 48.6 % [facility] Neutrophil Absolute 4.11 1.70 - 6.10 x10(3)/mc L [facility] Lymph % 37.8 % [facility] Lymphocytes Abs 3.2 0.9 - 3.2 x10(3)/mc L [facility] Monocyte % 11.3 % [facility] Monocyte Abs 1.0(H) 0.3 - 0.9 x10(3)/mc L [facility] Eos % 1.1 % [facility] Eosinophils Abs 0.1 0.0 - 0.4 x10(3)/[facility] Basophil % 0.7 % [facility] Baso Absolute 0.1 0.0 - 0.1 x10(3)/ L [facility] Immature Gran % 0.50 % [facility] Comment: Immature granulocytes(IG's)percentage and absolute count will include metamyelocytes, myelocytes, and promyelocytes. Blood smears from CBCs yielding IG's will be scanned manually for concordance. If this scan disagrees with the automated IG or if promyelocytes are noted, a manual differential will be performed. Immature Gran Absolute 0.04 0.00 - 0.04 x10(3)/ L [facility] Blood 12/16/2022 4:27 AM EDT 12/16/2022 5:08 AM EDT Narrative Resulting Agency Comment Spec In Lab Debi De Leon MD HEMATOLOGY ORDERABLE S [facility] [place] [address] * (ABNORMAL) Hemogram (12/16/2022 4:27 AM EDT) White Blood Cell 8.5 4.0 - 9.5 x10(3)/ L [facility] Red Blood Cell 5.29 4.58 - 5.54 x10(6)/[facility] Hemoglobin 16.3 13.7 - 16.5 g/dL [facility] Hematocrit 48.5 40.5 - 48.5 % [facility] Mean Cell Volume 91.7 82.9 - 93.1 fL [facility] Mean Cell Hemoglobin 30.8 27.5 - 32.1 pg [facility] Mean Cell Hemoglobin Concentration 33.6 32.0 - 35.7 g/dL [facility] Platelet 180 145 - 357 x10(3)/ L [facility] RDW Standard Deviation 55.2(H) 36.0 - 45.0 fL [facility] RDW coefficient of variation 16.2(H) 11.4 - 13.8 % [facility] Mean Platelet Volume 10.4 7.6 - 12.9 fL [facility] NRBC% auto 0.0 % [facility] NRBC Absolute 0.000 0.000 - 0.000 x10(3)/mc L [facility] Blood 12/16/2022 4:27 AM EDT 12/16/2022 5:08 AM EDT Narrative Resulting Agency Comment Spec In Lab Debi De Leon MD HEMATOLOGY ORDERABLE S [facility] [place] [address] * (ABNORMAL) Basic Metabolic Panel (non-fasting) (12/16/2022 4:27 AM EDT) Glucose 101 65 - 199 mg/dL [facility] Comment:Diabetes: >=200 mg/d L plus symptoms Blood Urea Nitrogen 23(H) 10 - 20 mg/dL [facility] Creatinine 0.70(L) 0.80 - 1.50 mg/dL [facility] Sodium 140 135 - 145 mmol/L [facility] Potassium 3.8 3.5 - 5.0 mmol/L [facility] Comment: Please note: ??Patients with WBC >100,000 may have falsely elevated Potassium levels. ??For accurate Potassium quantification in these patients send serum separator tube (gold top) for subsequent determinations. ??Contact the Clinical Chemistry Laboratory if there are any questions. Chloride 104 98 - 107 mmol/L [facility] Carbon Dioxide 25 22 - 31 mmol/L [facility] Anion Gap 11 5 - 15 mmol/L [facility] Calcium 9.0 8.5 - 10.5 mg/dL [facility] Est Glomerular Filtration Rate 113 >=60 mL/min/1. 73 m?? [facility] Comment: This patient's estimated GFR [...] and symptoms in addition to eGFR. Blood 12/16/2022 4:27 AM EDT 12/16/2022 5:08 AM EDT Narrative Resulting Agency Comment Spec In Lab Ming Maldonado MD CHEMISTRY ORDER CJ [facility] [place] [address] * Phosphorus (12/16/2022 4:27 AM EDT) Pathologist [facility] Phosphorus 4.3 2.5 - 4.5 mg/dL [facility] Blood 12/16/2022 4:27 AM EDT 12/16/2022 5:08 AM EDT Narrative Resulting Agency Comment Spec In Lab Ming Maldonado MD CHEMISTRY ORDER CJ Performing Organization Address City/[facility] Co de Phone Number [facility] [place] [address] * Magnesium (12/16/2022 4:27 AM EDT) [facility] Magnesium 0.93 0.69 - 1.07 mmol/L [facility] Blood 12/16/2022 4:27 AM EDT 12/16/2022 5:08 AM EDT Narrative Resulting Agency Comment Spec In Lab Ming Maldonado MD CHEMISTRY ORDER CJ Performing Organization Address City/[facility] Co de Phone Number [facility] [place] [address] * EKG 12 Lead (12/15/2022 12:25 PM EDT) Ventricular rate 84 BPM MUSE SYSTEM Atrial Rate 84 BPM MUSE SYSTEM P-R Interval 124 ms MUSE SYSTEM QRS Duration 94 ms MUSE SYSTEM Q-T Interval 354 ms MUSE SYSTEM QTC Calculated (Bezet) 418 ms MUSE SYSTEM Calculated P [place] 39 degrees MUSE SYSTEM Calculated R [place] 81 degrees MUSE SYSTEM Calculated T [place] 64 degrees MUSE SYSTEM INTERPRETATION Normal sinus rhythm Normal ECG When compared with ECG of 12-DEC-2022 19:51, No significant change was found Confirmed by MD Sharma Danette ([id number]) on 12/15/2022 5:19:08 PM MUSE SYSTEM 12/15/2022 12:2 5 PM EDT 12/15/2022 5:19 PM EDT Ming Maldonado MD ECG ORDERABLES MUSE SYSTEM * Differential, Automated (12/15/2022 4:39 AM EDT) Neutrophil % 49.1 % [facility] Neutrophil Absolute 3.98 1.70 - 6.10 x10(3)/[facility] Lymph % 38.4 % [facility] Lymphocytes Abs 3.1 0.9 - 3.2 x10(3)/[facility] Monocyte % 9.8 % [facility] Monocyte Abs 0.8 0.3 - 0.9 x10(3)/[facility] Eos % 1.6 % [facility] Eosinophils Abs 0.1 0.0 - 0.4 x10(3)/[facility] Basophil % 0.7 % [facility] Baso Absolute 0.1 0.0 - 0.1 x10(3)/[facility] Immature Gran % 0.40 % [facility] Comment: Immature granulocytes(IG's)percentage and absolute count will include metamyelocytes, myelocytes, and promyelocytes. Blood smears from CBCs yielding IG's will be scanned manually for concordance. If this scan disagrees with the automated IG or if promyelocytes are noted, a manual differential will be performed. Immature Gran Absolute 0.03 0.00 - 0.04 x10(3)/[facility] Blood 12/15/2022 4:39 AM EDT 12/15/2022 4:50 AM EDT Narrative Resulting Agency Comment Spec In Lab Debi De Leon MD HEMATOLOGY ORDERABLE S [facility] [place] [address] * (ABNORMAL) Hemogram (12/15/2022 4:39 AM EDT) White Blood Cell 8.1 4.0 - 9.5 x10(3)/mc L [facility] Red Blood Cell 5.27 4.58 - 5.54 x10(6)/mc L [facility] Hemoglobin 16.1 13.7 - 16.5 g/dL [facility] Hematocrit 48.4 40.5 - 48.5 % [facility] Mean Cell Volume 91.8 82.9 - 93.1 fL [facility] Mean Cell Hemoglobin 30.6 27.5 - 32.1 pg [facility] Mean Cell Hemoglobin Concentration 33.3 32.0 - 35.7 g/dL [facility] Platelet 190 145 - 357 x10(3)/mc L [facility] RDW Standard Deviation 55.3(H) 36.0 - 45.0 fL [facility] RDW coefficient of variation 16.2(H) 11.4 - 13.8 % [facility] Mean Platelet Volume 10.4 7.6 - 12.9 fL [facility] NRBC% auto 0.0 % [facility] NRBC Absolute 0.000 0.000 - 0.000 x10(3)/ L [facility] Blood 12/15/2022 4:39 AM EDT 12/15/2022 4:50 AM EDT Narrative Resulting Agency Comment Spec In Lab Debi De Leon MD HEMATOLOGY ORDERABLE S [facility] [place] [address] * Phosphorus (12/15/2022 4:39 AM EDT) Phosphorus 3.0 2.5 - 4.5 mg/dL [facility] Blood 12/15/2022 4:39 AM EDT 12/15/2022 4:50 AM EDT Narrative Resulting Agency Comment Spec In Lab Ming Maldonado MD CHEMISTRY ORDER CJ Performing Organization Address City/[facility]/ZIP Co de Phone Number [facility] [place] [address] * Magnesium (12/15/2022 4:39 AM EDT) Magnesium 0.98 0.69 - 1.07 mmol/L [facility] Blood 12/15/2022 4:39 AM EDT 12/15/2022 4:50 AM EDT Narrative Resulting Agency Comment Spec In Lab Ming Maldonado MD CHEMISTRY ORDER CJ Performing Organization Address [facility] de Phone Number [facility] [place] [address] * (ABNORMAL) Comprehensive metabolic panel (non-fasting) (12/15/2022 4:39 AM EDT) Glucose 95 65 - 199 mg/dL [facility] Comment:Diabetes: >=200 mg/d L plus symptoms Blood Urea Nitrogen 16 10 - 20 mg/dL [facility] Creatinine 0.61(L) 0.80 - 1.50 mg/dL [facility] Sodium 139 135 - 145 mmol/L [facility] Potassium 4.0 3.5 - 5.0 mmol/L [facility] Comment: Please note: ??Patients with WBC >100,000 may have falsely elevated Potassium levels. ??For accurate Potassium quantification in these patients send serum separator tube (gold top) for subsequent determinations. ??Contact the Clinical Chemistry Laboratory if there are any questions. Chloride 103 98 - 107 mmol/L [facility] Carbon Dioxide 27 22 - 31 mmol/L [facility] Anion Gap 9 5 - 15 mmol/L [facility] Calcium 8.9 8.5 - 10.5 mg/dL [facility] Protein, Total 6.7 6.1 - 8.0 g/dL [facility] Albumin 4.0 3.2 - 5.2 g/dL [facility] Aspartate Aminotransferase 11 0 - 39 unit/L [facility] Alanine Aminotransferase 16 0 - 55 unit/L [facility] Alkaline Phosphatase 51 40 - 130 unit/L [facility] Bilirubin, Total 0.5 0.2 - 1.3 mg/dL [facility] Est Glomerular Filtration Rate 118 >=60 mL/min/1. 73 m?? [facility] Comment: This patient's estimated GFR [...] and symptoms in addition to eGFR. Blood 12/15/2022 4:39 AM EDT 12/15/2022 4:50 AM EDT Narrative Resulting Agency Comment Spec In Lab Ming Maldonado MD CHEMISTRY ORDER CJ [facility] [place] [address] * (ABNORMAL) Differential, Automated (12/14/2022 4:18 AM EDT) Neutrophil % 54.0 % [facility] Neutrophil Absolute 5.75 1.70 - 6.10 x10(3)/mc L [facility] Lymph % 33.4 % [facility] Lymphocytes Abs 3.6(H) 0.9 - 3.2 x10(3)/mc L [facility] Monocyte % 10.4 % [facility] Monocyte Abs 1.1(H) 0.3 - 0.9 x10(3)/mc L [facility] Eos % 1.3 % [facility] Eosinophils Abs 0.1 0.0 - 0.4 x10(3)/mc L [facility] Basophil % 0.5 % [facility] Baso Absolute 0.0 0.0 - 0.1 x10(3)/mc L [facility] Immature Gran % 0.40 % [facility] Comment: Immature granulocytes(IG's)percentage and absolute count will include metamyelocytes, myelocytes, and promyelocytes. Blood smears from CBCs yielding IG's will be scanned manually for concordance. If this scan disagrees with the automated IG or if promyelocytes are noted, a manual differential will be performed. Immature Gran Absolute 0.04 0.00 - 0.04 x10(3)/mc L [facility] Blood 12/14/2022 4:18 AM EDT 12/14/2022 5:19 AM EDT Narrative Resulting Agency Comment Spec In Lab Debi De Leon MD HEMATOLOGY ORDERABLE S [facility] [place] [address] * (ABNORMAL) Hemogram (12/14/2022 4:18 AM EDT) White Blood Cell 10.6(H) 4.0 - 9.5 x10(3)/mc L [facility] Red Blood Cell 5.82(H) 4.58 - 5.54 x10(6)/mc L [facility] Hemoglobin 17.8(H) 13.7 - 16.5 g/dL [facility] Hematocrit 53.3(H) 40.5 - 48.5 % [facility] Mean Cell Volume 91.6 82.9 - 93.1 fL [facility] Mean Cell Hemoglobin 30.6 27.5 - 32.1 pg [facility] Mean Cell Hemoglobin Concentration 33.4 32.0 - 35.7 g/dL [facility] Platelet 212 145 - 357 x10(3)/mc L [facility] RDW Standard Deviation 53.9(H) 36.0 - 45.0 fL [facility] RDW coefficient of variation 16.2(H) 11.4 - 13.8 % [facility] Mean Platelet Volume 10.3 7.6 - 12.9 fL [facility] NRBC% auto 0.0 % [facility] NRBC Absolute 0.000 0.000 - 0.000 x10(3)/mc L [facility] Blood 12/14/2022 4:18 AM EDT 12/14/2022 5:19 AM EDT Narrative Resulting Agency Comment Spec In Lab Debi De Leon MD HEMATOLOGY ORDERABLE S Performing Organization Address City/[facility] Co de Phone Number [facility] [place] [address] * (ABNORMAL) Phosphorus (12/14/2022 4:18 AM EDT) Phosphorus 2.3(L) 2.5 - 4.5 mg/dL [facility] Blood 12/14/2022 4:18 AM EDT 12/14/2022 5:19 AM EDT Narrative Resulting Agency Comment Spec In Lab Ming Maldonado MD CHEMISTRY ORDER CJ Performing Organization Address [facility] Co de Phone Number [facility] [place] [address] * (ABNORMAL) Magnesium (12/14/2022 4:18 AM EDT) Magnesium 1.09(H) 0.69 - 1.07 mmol/L [facility] Blood 12/14/2022 4:18 AM EDT 12/14/2022 5:19 AM EDT Narrative Resulting Agency Comment Spec In Lab Ming Maldonado MD CHEMISTRY ORDER CJ Performing Organization Address [facility] Co de Phone Number [facility] [place] [address] * (ABNORMAL) Comprehensive metabolic panel (non-fasting) (12/14/2022 4:18 AM EDT) Glucose 86 65 - 199 mg/dL [facility] Comment:Diabetes: >=200 mg/d L plus symptoms Blood Urea Nitrogen 20 10 - 20 mg/dL [facility] Creatinine 0.74(L) 0.80 - 1.50 mg/dL [facility] Sodium 140 135 - 145 mmol/L [facility] Potassium 4.1 3.5 - 5.0 mmol/L [facility] Comment: Please note: ??Patients with WBC >100,000 may have falsely elevated Potassium levels. ??For accurate Potassium quantification in these patients send serum separator tube (gold top) for subsequent determinations. ??Contact the Clinical Chemistry Laboratory if there are any questions. Chloride 101 98 - 107 mmol/L [facility] Carbon Dioxide 27 22 - 31 mmol/L [facility] Anion Gap 12 5 - 15 mmol/L [facility] Calcium 8.9 8.5 - 10.5 mg/dL [facility] Protein, Total 7.1 6.1 - 8.0 g/dL [facility] Albumin 4.5 3.2 - 5.2 g/dL [facility] Aspartate Aminotransferase 15 0 - 39 unit/L [facility] Alanine Aminotransferase 16 0 - 55 unit/L [facility] Alkaline Phosphatase 58 40 - 130 unit/L [facility] Bilirubin, Total 0.5 0.2 - 1.3 mg/dL [facility] Est Glomerular Filtration Rate 111 >=60 mL/min/1. 73 m?? [facility] Comment: This patient's estimated GFR [...] and symptoms in addition to eGFR. Blood 12/14/2022 4:18 AM EDT 12/14/2022 5:19 AM EDT Narrative Resulting Agency Comment Spec In Lab Ming Maldonado MD CHEMISTRY ORDER CJ [facility] [place] [address] * ECHO COMPLETE W CONTRAST (12/13/2022 9:06 AM EDT) EF 66 [facility] SYSTEM Anatomical Region Laterality Modality Cardiac Other 12/13/2022 7:53 AM EDT Narrative 12/13/2022 9:24 AM EDT ? Echocardiogram Report Name: GARRET BARROS ?Study Date: 12/13/2022 07:53 AM ? Patient Location: 4A : 1975 ? Height: 175 cm ? Account: [id number] Age: 47 yrs ? Weight: 75 kg Gender: Male ?BSA: 1.9 m2 Ordering Physician: MING MALDONADO Referring Physician: MING MALDONADO Performed By: Adelina Goodwin RDCS Reason For Study: CP, COPD Exam Location: [facility]. Interpretation Summary Left ventricle is of normal size. Wall thickness is normal. Left ventricular systolic function is normal. The left ventricular ejection fraction is 66% by Smith's biplane. There are no segmental wall motion abnormalities. The right ventricle is of normal size. Right ventricular systolic function is normal. Pulmonary artery hypertension could not be assessed due to inadequate tricuspid regurgitation jet. Normal atrial dimensions. Normal valves. No comparison study is available. Procedure Complete-[id number]. Image enhancement Definity was used for left ventricular opacification. Suboptimal quality. Left Ventricle Left ventricle is of normal size. Wall thickness is normal. Left ventricular systolic function is normal. The left ventricular ejection fraction is 66% by Smith's biplane. There are no segmental wall motion abnormalities. Right Ventricle The right ventricle is of normal size. Right ventricular systolic function is normal. Left Atrium The left atrium is normal. There is no evidence for a patent foramen ovale. Right Atrium The right atrium is normal. Aortic Valve The aortic valve is not well visualized. There is no aortic stenosis. There is no aortic regurgitation. Mitral Valve The mitral valve leaflets are thickened. There is no mitral stenosis. There is trace mitral regurgitation. Tricuspid Valve The tricuspid valve is structurally normal. There is trace tricuspid regurgitation. Pulmonic Valve The pulmonic valve is not well visualized. Great Arteries The aortic root is of normal size. No abnormalities are identified. The ascending aorta is not well visualized. Venous Inferior vena cava is not well visualized. Pericardium/Pleural The pericardium appears normal. Hemodynamics Pulmonary artery hypertension could not be assessed due to inadequate tricuspid regurgitation jet. Left ventricular diastolic function is normal. Left ventricular filling pressure is normal. Ejection Fraction ?2D Measurements ? Volumes EF(MOD-bp): 65.7 % ?IVSd: 1.0 cm ? LAV(MOD- bp) Indexed: ?LVIDd: 5.0 cm ?LVIDs: 3.6 cm ?24.0 ml/m2 ?LVPWd: 1.0 cm ?EDV (MOD-bp) Index: 82.7 ? ESV (MOD-bp) Index: 28.3 ?LV mass(C)d: 187.6 grams ?LV mass(C)dI: 98.6 grams/m2 ?Ao root diam: 3.1 cm ?Ao root diam index: 1.6 Doppler MV E max toni: 66.0 cm/sec MV A max toni: 61.4 cm/sec MV E/A: 1.1 Lat Peak E' Toni: 15.0 cm/sec E/ e' (lat): 4.4 Med Peak E' Toni: 12.4 cm/sec E/e' (med): 5.3 E/e' Average: 4.9 Procedure Note Davidson Butler MD - 12/13/2022 Echocardiogram Report Name: GARRET BARROS Study Date: 307:53 AM Patient Location: : 1975 Height: 175 cm Account: [id number] Age: 47 yrs Weight: 75 kg Gender: Male BSA: 1.9 m2 Ordering Physician: MING MALDONADO Referring Physician: MING MALDONADO Performed By: Adelina Goodwin RDCS Reason For Study: CP, COPD Exam Location: [facility]. Interpretation Summary Left ventricle is of normal size. Wall thickness is normal. Leftventricular systolic function is normal. The left ventricular ejection fraction is 66%by Smith's biplane. There are no segmental wall motion abnormalities. The right ventricle is of normal size. Right ventricular systolic functionis normal. Pulmonary artery hypertension could not be assessed due toinadequate tricuspid regurgitation jet. Normal atrial dimensions. Normal valves. No comparison study is available. Procedure Complete-[id number]. Image enhancement Definity was used for left ventricular opacification. Suboptimal quality. Left Ventricle Left ventricle is of normal size. Wall thickness is normal. Leftventricular systolic function is normal. The left ventricular ejection fraction is 66%by Smith's biplane. There are no segmental wall motion abnormalities. Right Ventricle The right ventricle is of normal size. Right ventricular systolic functionis normal. Left Atrium The left atrium is normal. There is no evidence for a patent foramenovale. Right Atrium The right atrium is normal. Aortic Valve The aortic valve is not well visualized. There is no aortic stenosis.There is no aortic regurgitation. Mitral Valve The mitral valve leaflets are thickened. There is no mitral stenosis.There is trace mitral regurgitation. Tricuspid Valve The tricuspid valve is structurally normal. There is trace tricuspid regurgitation. Pulmonic Valve The pulmonic valve is not well visualized. Great Arteries The aortic root is of normal size. No abnormalities are identified. Theascending aorta is not well visualized. Venous Inferior vena cava is not well visualized. Pericardium/Pleural The pericardium appears normal. Hemodynamics Pulmonary artery hypertension could not be assessed due to inadequatetricuspid regurgitation jet. Left ventricular diastolic function is normal. Leftventricular filling pressure is normal. Ejection Fraction 2D Measurements Volumes EF(MOD-bp): 65.7 % IVSd: 1.0 cm LAV(MOD-bp)Indexed: LVIDd: 5.0 cm LVIDs: 3.6 cm 24.0 ml/m2 LVPWd: 1.0 cm EDV (MOD-bp)Index: 82.7 ESV (MOD-bp)Index: 28.3 LV mass(C)d: 187.6 grams LV mass(C)dI: 98.6 grams/m2 Ao root diam: 3.1 cm Ao root diam index: 1.6 Doppler MV E max toni: 66.0 cm/sec MV A max toni: 61.4 cm/sec MV E/A: 1.1 Lat Peak E' Toni: 15.0 cm/sec E/ e' (lat): 4.4 Med Peak E' Toni: 12.4 cm/sec E/e' (med): 5.3 E/e' Average: 4.9 Ming Maldonado MD ECHO ORDERABLES * (ABNORMAL) Differential, Automated (12/13/2022 4:43 AM EDT) Neutrophil % 71.7 % [facility] Neutrophil Absolute 6.80(H) 1.70 - 6.10 x10(3)/[facility] Lymph % 16.7 % [facility] Lymphocytes Abs 1.6 0.9 - 3.2 x10(3)/[facility] Monocyte % 10.7 % [facility] Monocyte Abs 1.0(H) 0.3 - 0.9 x10(3)/[facility] Eos % 0.3 % [facility] Eosinophils Abs 0.0 0.0 - 0.4 x10(3)/[facility] Basophil % 0.3 % [facility] Baso Absolute 0.0 0.0 - 0.1 x10(3)/[facility] Immature Gran % 0.30 % [facility] Comment: Immature granulocytes(IG's)percentage and absolute count will include metamyelocytes, myelocytes, and promyelocytes. Blood smears from CBCs yielding IG's will be scanned manually for concordance. If this scan disagrees with the automated IG or if promyelocytes are noted, a manual differential will be performed. Immature Gran Absolute 0.03 0.00 - 0.04 x10(3)/[facility] Blood 12/13/2022 4:43 AM EDT 12/13/2022 4:55 AM EDT Narrative Resulting Agency Comment Spec In Lab Debi De Leon MD HEMATOLOGY ORDERABLE S [facility] [place] [address] * (ABNORMAL) Hemogram (12/13/2022 4:43 AM EDT) White Blood Cell 9.5 4.0 - 9.5 x10(3)/mc L [facility] Red Blood Cell 5.36 4.58 - 5.54 x10(6)/mc L [facility] Hemoglobin 16.3 13.7 - 16.5 g/dL [facility] Hematocrit 50.4(H) 40.5 - 48.5 % [facility] Mean Cell Volume 94.0(H) 82.9 - 93.1 fL [facility] Mean Cell Hemoglobin 30.4 27.5 - 32.1 pg [facility] Mean Cell Hemoglobin Concentration 32.3 32.0 - 35.7 g/dL [facility] Platelet 209 145 - 357 x10(3)/mc L [facility] RDW Standard Deviation 55.5(H) 36.0 - 45.0 fL [facility] RDW coefficient of variation 15.9(H) 11.4 - 13.8 % [facility] Mean Platelet Volume 9.9 7.6 - 12.9 fL [facility] NRBC% auto 0.0 % [facility] NRBC Absolute 0.000 0.000 - 0.000 x10(3)/mc L [facility] Blood 12/13/2022 4:43 AM EDT 12/13/2022 4:55 AM EDT Narrative Resulting Agency Comment Spec In Lab Debi De Leon MD HEMATOLOGY ORDERABLE S Performing Organization Address City/[facility]/ZIP Co de Phone Number [facility] [place] [address] * Phosphorus (12/13/2022 4:43 AM EDT) Phosphorus 4.0 2.5 - 4.5 mg/dL [facility] Blood 12/13/2022 4:43 AM EDT 12/13/2022 4:55 AM EDT Narrative Resulting Agency Comment Spec In Lab Ming Maldonado MD CHEMISTRY ORDER CJ [facility] [place] [address] * Magnesium (12/13/2022 4:43 AM EDT) Magnesium 0.96 0.69 - 1.07 mmol/L [facility] Blood 12/13/2022 4:43 AM EDT 12/13/2022 4:55 AM EDT Narrative Resulting Agency Comment Spec In Lab Ming Maldonado MD CHEMISTRY ORDER CJ Performing Organization Address City/[facility] Co de Phone Number [facility] [place] [address] * (ABNORMAL) Comprehensive metabolic panel (non-fasting) (12/13/2022 4:43 AM EDT) Glucose 63(L) 65 - 199 mg/dL [facility] Comment:Diabetes: >=200 mg/d L plus symptoms Blood Urea Nitrogen 16 10 - 20 mg/dL [facility] Creatinine 0.60(L) 0.80 - 1.50 mg/dL [facility] Sodium 137 135 - 145 mmol/L [facility] Potassium 4.7 3.5 - 5.0 mmol/L [facility] Comment: Please note: ??Patients with WBC >100,000 may have falsely elevated Potassium levels. ??For accurate Potassium quantification in these patients send serum separator tube (gold top) for subsequent determinations. ??Contact the Clinical Chemistry Laboratory if there are any questions. Chloride 101 98 - 107 mmol/L [facility] Carbon Dioxide 27 22 - 31 mmol/L [facility] Anion Gap 9 5 - 15 mmol/L [facility] Calcium 8.9 8.5 - 10.5 mg/dL [facility] Protein, Total 6.9 6.1 - 8.0 g/dL [facility] Albumin 3.9 3.2 - 5.2 g/dL [facility] Aspartate Aminotransferase Not Perf 0 - 39 [facility] Comment:Called by: MARLEEN, Read back by: Tiera Romero, Date/Time:12/13/22 05:31. Alanine Aminotransferase 16 0 - 55 unit/L [facility] Alkaline Phosphatase 60 40 - 130 unit/L [facility] Bilirubin, Total 0.3 0.2 - 1.3 mg/dL [facility] Est Glomerular Filtration Rate 118 >=60 mL/min/1. 73 m?? [facility] Comment: This patient's estimated GFR [...] and symptoms in addition to eGFR. Blood 12/13/2022 4:43 AM EDT 12/13/2022 4:55 AM EDT Narrative Resulting Agency Comment Spec In Lab Ming Maldonado MD CHEMISTRY ORDER CJ [facility] [place] [address] * EKG 12 Lead (12/12/2022 7:51 PM EDT) Ventricular rate 79 BPM MUSE SYSTEM Atrial Rate 79 BPM MUSE SYSTEM P-R Interval 124 ms MUSE SYSTEM QRS Duration 88 ms MUSE SYSTEM Q-T Interval 390 ms MUSE SYSTEM QTC Calculated (Bezet) 447 ms MUSE SYSTEM Calculated P [place] 50 degrees MUSE SYSTEM Calculated R [place] 99 degrees MUSE SYSTEM Calculated T [place] 76 degrees MUSE SYSTEM INTERPRETATION Normal sinus rhythm Rightward axis Borderline ECG When compared with ECG of 12-DEC-2022 18:05, (unconfirmed) No significant change was found I personally reviewed the tracing and edited the fellows interpretation Confirmed by fellow MD Rodolfo, Thanh ([id number]) on 12/14/2022 8:50:02 AM Confirmed by MD Jaguar, Eliud ([id number]) on 12/14/2022 12:27:20 PM MUSE SYSTEM 12/12/2022 7:51 PM EDT 12/14/2022 12:27 PM EDT Ming Maldonado MD ECG ORDERABLES Performing Organization Address [facility] de Phone Number MUSE SYSTEM * EKG 12 Lead (12/12/2022 6:05 PM EDT) Ventricular rate 74 BPM MUSE SYSTEM Atrial Rate 74 BPM MUSE SYSTEM P-R Interval 132 ms MUSE SYSTEM QRS Duration 94 ms MUSE SYSTEM Q-T Interval 394 ms MUSE SYSTEM QTC Calculated (Bezet) 437 ms MUSE SYSTEM Calculated P [place] 47 degrees MUSE SYSTEM Calculated R [place] 74 degrees MUSE SYSTEM Calculated T [place] 76 degrees MUSE SYSTEM INTERPRETATION Normal sinus rhythm Normal ECG When compared with ECG of 12-DEC-2022 09:45, Sinus rhythm has replaced Junctional rhythm Confirmed by MD Viki, [place] ([id number]) on 12/14/2022 6:28:35 AM MUSE SYSTEM 12/12/2022 6:05 PM EDT 12/14/2022 6:28 AM EDT Ming Maldonado MD ECG ORDERABLES Performing Organization Address [facility] de Phone Number MUSE SYSTEM * Troponin (12/12/2022 4:48 PM EDT) Pathologist [facility] Troponin-T, High Sensitivity 6 <=22 ng/L [facility] Comment: This patient's troponin T [...] troponin value can be found in the [facility] Test Catalog Troponin - [facility] Test Catalog Reference: Fourth [place] Definition of Myocardial Infarction. Journal of the [employer] 2018;72:4822-0163 Blood 12/12/2022 4:48 PM EDT 12/12/2022 4:55 PM EDT Narrative Resulting Agency Comment Spec In Lab Ming Maldonado MD CHEMISTRY ORDER CJ [facility] [place] [address] * (ABNORMAL) Blood Gas Venous (NL) (12/12/2022 1:18 PM EDT) pH, Venous 7.28(Criti silvino) 7.32 - 7.42 [facility] Comment:Called by: MARIE, Read back by: Yoselin Bonilla, Date/Time:12/12/22 13:41. PCO2, Venous 68(Critica l) 41 - 51 mmHg [facility] Comment:Called by: MARIE, Read back by: Yoselin Bonilla, Date/Time:12/12/22 13:41. PO2, Venous 36 25 - 40 mmHg [facility] Bicarbonate, Venous 31.3 mmol/L [facility] Base Excess, Venous 4.5 mmol/L [facility] Hgb Blood Gas 16.9(H) 13.7 - 16.5 g/dL [facility] Oxyhemoglobin, Venous 64.4 % [facility] Carboxyhemoglob in, Venous 3.6 % [facility] Comment: Nonsmokers: 0.5-1.5% COHB Smokers: Variable, but usually less than 10% Toxic: 20-30% COHB Lethal: Greater than 60% COHB Methemoglobin, Venous 0.3 <=1.5 % [facility] Na Whole Blood 142 135 - 145 mmol/L [facility] K Whole Blood 3.9 3.5 - 5.0 mmol/L [facility] Comment: Please note: Patients with WBC >100,000 may have falsely elevated Potassium levels. Contact the Clinical Chemistry Laboratory if there are any questions. ICa Whole Blood 1.14(L) 1.15 - 1.33 mmol/L [facility] Comment: Note: ??Total bilirubin higher than 20 mg/dL may lead to falsely low ionized calcium. CL Whole Blood 101 98 - 107 mmol/L [facility] Gluc Whole Bld 101 65 - 199 mg/dL [facility] Comment:Diabetes: >=200 mg/d L plus symptoms Lactate WB 1.3 0.5 - 2.2 mmol/L [facility] Blood Gas Source Venous [facility] Blood Venous Draw / Unknown 12/12/2022 1:18 PM EDT 12/12/2022 1:30 PM EDT Narrative Resulting Agency Comment Spec In Lab Jasper Stephens MD CHEMISTRY ORDERABLES [facility] [place] [address] * Troponin (12/12/2022 10:50 AM EDT) Troponin-T, High Sensitivity 16 <=22 ng/L [facility] Comment: This patient's troponin T [...] troponin value can be found in the [facility] Test Catalog Troponin - [facility] Test Catalog Reference: Fourth [place] Definition of Myocardial Infarction. Journal of the [employer] 2018;72:9551-4511 Blood Venous Draw / Unknown 12/12/2022 10:50 AM EDT 12/12/2022 11:11 AM EDT Narrative Resulting Agency Comment Spec In Lab Debi De Leon MD CHEMISTRY ORDERABLES Performing Organization Address City/[facility]/ZIP Co de Phone Number [facility] [place] [address] * pro-Brain Natriuretic Peptide (12/12/2022 10:50 AM EDT) NT-proBNP 56 <=124 pg/mL [facility] Blood Venous Draw / Unknown 12/12/2022 10:50 AM EDT 12/12/2022 11:11 AM EDT Narrative Resulting Agency Comment Spec In Lab Debi De Leon MD CHEMISTRY ORDERABLES Performing Organization Address [facility] Co de Phone Number [facility] [place] [address] * Potassium (12/12/2022 10:50 AM EDT) Potassium 4.4 3.5 - 5.0 mmol/L [facility] Comment: Please note: ??Patients with WBC >100,000 may have falsely elevated Potassium levels. ??For accurate Potassium quantification in these patients send serum separator tube (gold top) for subsequent determinations. ??Contact the Clinical Chemistry Laboratory if there are any questions. Blood 12/12/2022 10:5 0 AM EDT 12/12/2022 11:00 AM EDT Narrative Resulting Agency Comment Spec In Lab Wilver Feng MD CHEMISTRY ORDERABL ES Performing Organization Address [facility] Co de Phone Number [facility] [place] [address] * (ABNORMAL) BLOOD GAS 2 VENOUS (12/12/2022 10:28 AM EDT) pH, Venous 7.30(L) 7.32 - 7.42 [facility] PCO2, Venous 78(Critica l) 41 - 51 mmHg [facility] Comment:Noted by manager instrumentation. PO2, Venous 38 25 - 40 mmHg [facility] Bicarbonate, Venous 37.7 mmol/L [facility] Base Excess, Venous 11.3 mmol/L [facility] Hgb Blood Gas 17.2(H) 13.7 - 16.5 g/dL [facility] Oxyhemoglobin, Venous 68.5 % [facility] Carboxyhemoglob in, Venous 4.5 % [facility] Comment: Nonsmokers: 0.5-1.5% COHB Smokers: Variable, but usually less than 10% Toxic: 20-30% COHB Lethal: Greater than 60% COHB Methemoglobin, Venous 0.4 <=1.5 % [facility] Na Whole Blood 142 135 - 145 mmol/L [facility] K Whole Blood 4.2 3.5 - 5.0 mmol/L [facility] Comment: Please note: Patients with WBC >100,000 may have falsely elevated Potassium levels. Contact the Clinical Chemistry Laboratory if there are any questions. ICa Whole Blood 1.21 1.15 - 1.33 mmol/L [facility] Comment: Note: ??Total bilirubin higher than 20 mg/dL may lead to falsely low ionized calcium. CL Whole Blood 97(L) 98 - 107 mmol/L [facility] Gluc Whole Bld 85 65 - 199 mg/dL [facility] Comment:Diabetes: >=200 mg/d L plus symptoms Lactate WB 1.2 0.5 - 2.2 mmol/L [facility] Blood Gas Source Venous [facility] Blood 12/12/2022 10:2 8 AM EDT 12/12/2022 10:28 AM EDT Wilver Feng MD POINT OF CARE TEST ORDERABLES [facility] [place] [address] * XR Chest PA & Lateral (Generic) (12/12/2022 9:55 AM EDT) Anatomical Region Laterality Modality Chest N/A Digital Radiogra phy Impressions 12/12/2022 10:11 AM EDT 1. ??New perihilar congestion, peripheral septal thickening, and trace bilateral pleural effusions suggestive of pulmonary edema, perhaps related to heart failure or other cause of vascular congestion and interstitial edema. 2. ??Stable chronic emphysematous changes. I have personally reviewed the image(s) and the resident's interpretation and agree with the findings, Gayatrhi Moore MD at 12/12/2022 10:11 AM Thank you for letting us participate in the care of this patient. ??If you are a health care provider and have any questions regarding this report, please contact the number below. ??For patients who have questions please contact the health healthcare account manager that requested your imaging first. ? Electronically signed by: Gayathri Moore MD, [facility] ??([phone]), at 12/12/2022 10:11 AM Narrative 12/12/2022 10:11 AM EDT EXAMINATION: XR CHEST PA AND LATERAL (GENERIC) CLINICAL HISTORY: Shortness of breath TECHNIQUE: PA and lateral views of the chest COMPARISON: Chest radiograph 05/23/2022 FINDINGS: New peripheral septal thickening with a background of chronic emphysematous changes. Right basilar atelectasis. The perihilar contours and pulmonary vasculature are indistinct. New trace bilateral pleural effusions. No pneumothorax. The cardiomediastinal silhouette is within normal limits. No acute osseous processes. Procedure Note Gayathri Moore MD - 12/12/2022 EXAMINATION: XR CHEST PA AND LATERAL (GENERIC) CLINICAL HISTORY: Shortness of breath TECHNIQUE: PA and lateral views of the chest COMPARISON: Chest radiograph 05/23/2022 FINDINGS: New peripheral septal thickening with a background of chronicemphysematous changes. Right basilar atelectasis. The perihilar contours and pulmonary vasculature are indistinct. New trace bilateral pleural effusions. No pneumothorax. The cardiomediastinal silhouette is within normal limits. Noacute osseous processes. IMPRESSION 1. New perihilar congestion, peripheral septal thickening, and tracebilateral pleural effusions suggestive of pulmonary edema, perhaps related toheart failure or other cause of vascular congestion and interstitial edema. 2. Stable chronic emphysematous changes. I have personally reviewed the image(s) and the resident's interpretationand agree with the findings, Gayathri Moore MD at 12/12/2022 10:11 AM Thank you for letting us participate in the care of this patient. If youare a health care provider and have any questions regarding this report,please contact the number below. For patients who have questions please contactthe health healthcare account manager that requested your imaging first. Wilver Feng MD IMG DX ORDERABLES * EKG 12 Lead (12/12/2022 9:45 AM EDT) Ventricular rate 79 BPM MUSE SYSTEM QRS Duration 94 ms MUSE SYSTEM Q-T Interval 382 ms MUSE SYSTEM QTC Calculated (Bezet) 438 ms MUSE SYSTEM Calculated R [place] 89 degrees MUSE SYSTEM Calculated T [place] 76 degrees MUSE SYSTEM INTERPRETATION Accelerated Junctional rhythm Abnormal ECG When compared with ECG of 25-MAY-2022 13:43, Junctional rhythm has replaced Sinus rhythm Confirmed by MD Jaguar, Eliud ([id number]) on 12/12/2022 4:16:40 PM MUSE SYSTEM 12/12/2022 9:45 AM EDT 12/12/2022 4:16 PM EDT Wilver Feng MD ECG ORDERABLES MUSE SYSTEM * (ABNORMAL) Differential, Automated (12/12/2022 9:41 AM EDT) Neutrophil % 55.7 % [facility] Neutrophil Absolute 5.72 1.70 - 6.10 x10(3)/mc L [facility] Lymph % 30.7 % [facility] Lymphocytes Abs 3.2 0.9 - 3.2 x10(3)/mc L [facility] Monocyte % 9.2 % [facility] Monocyte Abs 0.9 0.3 - 0.9 x10(3)/[facility] Eos % 3.0 % [facility] Eosinophils Abs 0.3 0.0 - 0.4 x10(3)/[facility] Basophil % 0.8 % [facility] Baso Absolute 0.1 0.0 - 0.1 x10(3)/mc L [facility] Immature Gran % 0.60 % [facility] Comment: Immature granulocytes(IG's)percentage and absolute count will include metamyelocytes, myelocytes, and promyelocytes. Blood smears from CBCs yielding IG's will be scanned manually for concordance. If this scan disagrees with the automated IG or if promyelocytes are noted, a manual differential will be performed. Immature Gran Absolute 0.06(H) 0.00 - 0.04 x10(3)/ L [facility] Blood 12/12/2022 9:41 AM EDT 12/12/2022 9:48 AM EDT Narrative Resulting Agency Comment Spec In Lab Jasper Stephens MD HEMATOLOGY ORDERABLE S [facility] [place] [address] * (ABNORMAL) Hemogram (12/12/2022 9:41 AM EDT) White Blood Cell 10.3(H) 4.0 - 9.5 x10(3)/ L [facility] Red Blood Cell 5.56(H) 4.58 - 5.54 x10(6)/mc L [facility] Hemoglobin 16.9(H) 13.7 - 16.5 g/dL [facility] Hematocrit 51.6(H) 40.5 - 48.5 % [facility] Mean Cell Volume 92.8 82.9 - 93.1 fL [facility] Mean Cell Hemoglobin 30.4 27.5 - 32.1 pg [facility] Mean Cell Hemoglobin Concentration 32.8 32.0 - 35.7 g/dL [facility] Platelet 206 145 - 357 x10(3)/mc L [facility] RDW Standard Deviation 55.3(H) 36.0 - 45.0 fL [facility] RDW coefficient of variation 16.4(H) 11.4 - 13.8 % [facility] Mean Platelet Volume 9.8 7.6 - 12.9 fL [facility] NRBC% auto 0.0 % [facility] NRBC Absolute 0.000 0.000 - 0.000 x10(3)/mc L [facility] Blood 12/12/2022 9:41 AM EDT 12/12/2022 9:48 AM EDT Narrative Resulting Agency Comment Spec In Lab Jasper Stephens MD HEMATOLOGY ORDERABLE S [facility] [place] [address] * (ABNORMAL) Basic Metabolic Panel (non-fasting) (12/12/2022 9:41 AM EDT) Glucose 80 65 - 199 mg/dL [facility] Comment:Diabetes: >=200 mg/d L plus symptoms Blood Urea Nitrogen 11 10 - 20 mg/dL [facility] Creatinine 0.66(L) 0.80 - 1.50 mg/dL [facility] Sodium 138 135 - 145 mmol/L [facility] Potassium Not Perf 3.5 - 5.0 [facility] LABORATORY Comment: Unable to quantitate due to sample hemolysis. ??Sample redraw suggested. Tiannaied Yoselin Bonilla 12/12/22 10:41 AR Please note: ??Patients with WBC >100,000 may have falsely elevated Potassium levels. ??For accurate Potassium quantification in these patients send serum separator tube (gold top) for subsequent determinations. ??Contact the Clinical Chemistry Laboratory if there are any questions. Chloride 100 98 - 107 mmol/L [facility] Carbon Dioxide 26 22 - 31 mmol/L [facility] Anion Gap 12 5 - 15 mmol/L [facility] Calcium 8.7 8.5 - 10.5 mg/dL [facility] Est Glomerular Filtration Rate 115 >=60 mL/min/1. 73 m?? [facility] Comment: This patient's estimated GFR [...] and symptoms in addition to eGFR. Blood 12/12/2022 9:41 AM EDT 12/12/2022 9:48 AM EDT Narrative Resulting Agency Comment Spec In Lab Wilver Feng MD CHEMISTRY ORDERABL ES Performing Organization Address City/State/[facility] Co de Phone Number [facility] [place] [address] documented in this encounter Visit Diagnoses Diagnosis COPD with acute exacerbation Obstructive chronic bronchitis with exacerbation Hypoxia Hypoxemia Chest pain, unspecified type Asthma-COPD overlap syndrome COPD exacerbation Obstructive chronic bronchitis with exacerbation documented in this encounter Admitting Diagnoses Diagnosis COPD exacerbation Obstructive chronic bronchitis with exacerbation documented in this encounter Administered Medications Inactive Administered Medications - up to 3 most recent administrations Medication Order MAR Action Action Date Dose Rate Site acetaminophen (Tylenol) tablet 325 mg 325 mg, Oral, ONCE PRN, 1 dose, Starting on 12/18/22 at 1251, Until Tu12/20/22 at 1510, Pain, Maximum dose of acetaminophen is 4,000 mg from all sources in 24 hours. When ordered for pain, acetaminophen should be given even when other ordered pain medications are indicated. , Routine acetaminophen (Tylenol) tablet 650 mg 650 mg, Oral, EVERY 6 HOURS PRN, Starting on Mon12/12/22 at 1644, Until Mon12/16/22 at 0801, Pain, Fever, Administer for pain or temperature greater than or equal to 38.2 degrees Celsius. Maximum daily dose of acetaminophen from all sources not to exceed 4,000 mg. When ordered for pain, acetaminophen should be given even when other ordered pain medications are indicated., Routine Given 12/15/2022 1:13 PM EDT 650 mg Given 12/12/2022 7:08 PM EDT 650 mg acetaminophen (Tylenol) tablet 650 mg 650 mg, Oral, EVERY 6 HOURS SCHEDULED, First dose (after last modification) on Mon12/16/22 at 1200, Until Discontinued, Administer for pain or temperature greater than or equal to 38.2 degrees Celsius. Maximum daily dose of acetaminophen from all sources not to exceed 4,000 mg. When ordered for pain, acetaminophen should be given even when other ordered pain medications are indicated., Routine Given 12/20/2022 4:33 AM EDT 650 mg Given 12/19/2022 5:37 PM EDT 650 mg Given 12/19/2022 11:51 AM EDT 650 mg azithromycin (Zithromax) 500 mg in sodium chloride 0.9% 255 mL infusion 500 mg 500 mg, Intravenous, EVERY 24 HOURS, First dose on Mon12/12/22 at 1219, Until Discontinued, Administer over 60 Minutes, Indication for (Active or Suspected): Other (See comment) / COPD exacerbation New Bag 12/12/2022 1:23 PM EDT 500 mg 255.1 mL/hr bisacodyL (Dulcolax) suppository 10 mg 10 mg, Rectal, DAILY PRN, Starting on Mon12/13/22 at 0850, Until Mon12/20/22 at 1510, Constipation, Routine budesonide-formoteroL (Symbicort) 160-4.5 mcg/actuation inhaler 2 Inhalation 2 .Inhalation , Inhalation, 2 TIMES DAILY, First dose on Mon12/12/22 at 2100, Until Discontinued, Routine Given 12/20/2022 8:33 AM EDT 2 .Inhalation Given 12/19/2022 8:06 PM EDT 2 .Inhalation Given 12/19/2022 8:52 AM EDT 2 .Inhalation busPIRone (Buspar) tablet 15 mg 15 mg, Oral, 3 TIMES DAILY, First dose on Mon12/12/22 at 1646, Until Discontinued, Routine Given 12/20/2022 8:11 AM EDT 15 mg Given 12/19/2022 8:06 PM EDT 15 mg Given 12/19/2022 2:10 PM EDT 15 mg doxycycline monohydrate (Monodox) capsule 100 mg 100 mg, Oral, 2 TIMES DAILY, 8 doses, First dose on Mon12/13/22 at 0900, Last dose on Mon12/16/22 at 2100, Routine, Indication for (Active or Suspected): Other (See comment) / COPD Given 12/16/2022 8:35 PM EDT 100 mg Given 12/16/2022 8:37 AM EDT 100 mg Given 12/15/2022 8:10 PM EDT [address] (Cymbalta) capsule 60 mg 60 mg, Oral, DAILY, First dose (after last modification) on Mon12/13/22 at 0900, Until Discontinued, Routine Given 12/20/2022 8:11 AM EDT 60 mg Given 12/19/2022 8:28 AM EDT 60 mg Given 12/18/2022 8:31 AM EDT 60 mg enoxaparin (Lovenox) (40 mg/0.4 mL) subcutaneous injection 40 mg 40 mg, Subcutaneous, NIGHTLY, First dose on Mon12/12/22 at 2100, Until Discontinued, Routine Given 12/19/2022 8:46 PM EDT 40 mg Given 12/18/2022 8:14 PM EDT 40 mg Given 12/17/2022 9:06 PM EDT 40 mg hydrOXYzine (Atarax) tablet 25 mg 25 mg, Oral, 3 TIMES DAILY PRN, Starting on Mon12/13/22 at 1027, Until Mon12/15/22 at 0858, Itching, Routine Given 12/14/2022 12:52 PM EDT 25 mg Given 12/14/2022 6:48 AM EDT 25 mg Given 12/13/2022 5:36 PM EDT 25 mg hydrOXYzine (Atarax) tablet 50 mg 50 mg, Oral, ONCE, 1 dose, On Mon12/14/22 at 1830, Routine Given 12/14/2022 5:58 PM EDT 50 mg hydrOXYzine (Atarax) tablet 50 mg 50 mg, Oral, 3 TIMES DAILY PRN, Starting on Mon12/15/22 at 0858, Until Mon12/20/22 at 1510, Itching, Routine Given 12/20/2022 4:33 AM EDT 50 mg Given 12/19/2022 8:45 PM EDT 50 mg Given 12/18/2022 8:13 PM EDT 50 mg ipratropium-albuteroL (Duoneb) 0.5 mg-3 mg(2.5 mg base)/3 mL nebulizer solution 3 mL 3 mL, Nebulization, EVERY 4 HOURS, First dose on Mon12/12/22 at 0941, Until Discontinued, Routine Given 12/20/2022 9:24 AM EDT 3 mLs Given 12/19/2022 5:37 PM EDT 3 mLs Given 12/19/2022 2:11 PM EDT 3 mLs ipratropium-albuteroL (Duoneb) 0.5 mg-3 mg(2.5 mg base)/3 mL nebulizer solution 3 mL 3 mL, Nebulization, EVERY 15 MIN, 3 doses, First dose on Mon12/12/22 at 1043, Last dose on Mon12/12/22 at 1113, STAT Given 12/12/2022 11:09 AM EDT 3 mLs Given 12/12/2022 10:48 AM EDT 3 mLs ipratropium-albuteroL (Duoneb) 0.5 mg-3 mg(2.5 mg base)/3 mL nebulizer solution 3 mL 3 mL, Nebulization, ONCE, 1 dose, On Mon12/12/22 at 2019, Routine Given 12/12/2022 8:22 PM EDT 3 mLs ipratropium-albuteroL (Duoneb) 0.5 mg-3 mg(2.5 mg base)/3 mL nebulizer solution 3 mL 3 mL, Nebulization, EVERY 4 HOURS PRN, Starting on Mon12/13/22 at 1028, Until Mon12/20/22 at 1510, Wheezing, Routine Given 12/18/2022 8:14 PM EDT 3 mLs Given 12/15/2022 8:09 PM EDT 3 mLs Given 12/13/2022 10:53 AM EDT 3 mLs ketorolac (Toradol) (15 mg/mL) injection 15 mg 15 mg, Intravenous, EVERY 6 HOURS PRN, Starting on Arlene 12/15/22 at 1701, Until 12/16/22 at 1243, Pain, Routine Given 12/16/2022 11:21 AM EDT 15 mg Given 12/16/2022 5:57 AM EDT 15 mg Given 12/16/2022 12:20 AM EDT 15 mg ketorolac (Toradol) (15 mg/mL) injection 15 mg 15 mg, Intravenous, EVERY 8 HOURS PRN, Starting on 12/16/22 at 1717, Until 12/17/22 at 1716, Pain, Routine Given 12/17/2022 10:42 AM EDT 15 mg Given 12/17/2022 1:55 AM EDT 15 mg Given 12/16/2022 5:40 PM EDT 15 mg ketorolac (Toradol) (15 mg/mL) injection 15 mg 15 mg, Intravenous, EVERY 8 HOURS PRN, Starting on 12/17/22 at 1727, Until 12/18/22 at 0526, Pain, Routine Given 12/18/2022 1:47 AM EDT 15 mg Given 12/17/2022 6:45 PM EDT 15 mg ketorolac (Toradol) (15 mg/mL) injection 15 mg 15 mg, Intravenous, EVERY 8 HOURS PRN, Starting on 12/18/22 at 0911, Until Tu12/20/22 at 1510, Pain, Routine Given 12/20/2022 8:11 AM EDT 15 mg Given 12/20/2022 12:23 AM EDT 15 mg Given 12/19/2022 4:10 PM EDT 15 mg lidocaine (Lidoderm) 5% patch 1 patch 1 patch, Transdermal, Administer over 12 Hours, EVERY 24 HOURS, First dose on 12/18/22 at 1800, Until Discontinued, Apply patch(es) for 12 hours, and then remove for 12 hours., Routine Patch Applied 12/19/2022 5:37 PM EDT 1 patch 07- Back Lower (Left) Patch Applied 12/18/2022 6:00 PM EDT 1 patch 20-Other (document in comment section) lisinopriL (Zestril) tablet 20 mg 20 mg, Oral, DAILY, First dose on Mon12/13/22 at 1230, Until Discontinued, Routine Given 12/19/2022 8:47 AM EDT 20 mg Given 12/18/2022 8:31 AM EDT 20 mg Given 12/17/2022 9:18 AM EDT 20 mg lisinopriL (Zestril) tablet 20 mg 20 mg, Oral, ONCE, 1 dose, On Mon12/19/22 at 1145, Routine Given 12/19/2022 11:52 AM EDT 20 mg lisinopriL (Zestril) tablet 40 mg 40 mg, Oral, DAILY, First dose (after last modification) on Mon12/20/22 at 0900, Until Discontinued, Routine Given 12/20/2022 8:11 AM EDT 40 mg LORazepam (Ativan) tablet 1 mg 1 mg, Oral, ONCE, 1 dose, On Mon12/12/22 at 1028, Routine Given 12/12/2022 10:32 AM EDT 1 mg LORazepam (Ativan) tablet 1 mg 1 mg, Oral, ONCE, 1 dose, On Mon12/12/22 at 1514, Routine Given 12/12/2022 3:21 PM EDT 1 mg LORazepam (Ativan) tablet 1 mg 1 mg, Oral, EVERY 3 HOURS PRN, Starting on Mon12/12/22 at 1816, Until Mon12/13/22 at 1023, Anxiety, Routine Given 12/13/2022 9:20 AM EDT 1 mg Given 12/13/2022 6:13 AM EDT 1 mg Given 12/13/2022 1:47 AM EDT 1 mg LORazepam (Ativan) tablet 1 mg 1 mg, Oral, EVERY 6 HOURS PRN, Starting on Mon12/16/22 at 1243, Until Mon12/16/22 at 1718, Anxiety, Routine Given 12/16/2022 1:41 PM EDT 1 mg LORazepam (Ativan) tablet 2 mg 2 mg, Oral, EVERY 4 HOURS PRN, Starting on Mon12/13/22 at 1030, Until Mon12/15/22 at 0857, Anxiety, Routine Given 12/15/2022 8:36 AM EDT 2 mg Given 12/15/2022 4:20 AM EDT 2 mg Given 12/14/2022 10:14 PM EDT 2 mg LORazepam (Ativan) tablet 2 mg 2 mg, Oral, ONCE, 1 dose, On Mon12/14/22 at 1830, Routine Given 12/14/2022 5:57 PM EDT 2 mg LORazepam (Ativan) tablet 2 mg 2 mg, Oral, EVERY 6 HOURS PRN, Starting on Mon12/15/22 at 1300, Until Mon12/16/22 at 1243, Anxiety, Routine Given 12/16/2022 8:35 AM EDT 2 mg Given 12/16/2022 2:50 AM EDT 2 mg Given 12/15/2022 7:49 PM EDT 2 mg LORazepam (Ativan) tablet 2 mg 2 mg, Oral, EVERY 8 HOURS PRN, Starting on Mon12/16/22 at 1730, Until Mon12/20/22 at 1510, Anxiety, Routine Given 12/20/2022 8:11 AM EDT 2 mg Given 12/20/2022 12:23 AM EDT 2 mg Given 12/19/2022 4:10 PM EDT 2 mg melatonin tablet 3 mg 3 mg, Oral, NIGHTLY PRN, Starting on Mon12/12/22 at 1644, Until Mon12/19/22 at 2037, Sleep, Routine Given 12/18/2022 8:13 PM EDT 3 mg Given 12/15/2022 8:11 PM EDT 3 mg Given 12/14/2022 10:14 PM EDT 3 mg melatonin tablet 6 mg 6 mg, Oral, NIGHTLY PRN, Starting on Mon12/19/22 at 2037, Until Mon12/20/22 at 1510, Sleep, Routine Given 12/19/2022 8:46 PM EDT 6 mg methadone (Dolophine) (10 mg/mL) oral liquid 132 mg 132 mg, Oral, DAILY, First dose on Mon12/13/22 at 0600, Until Discontinued, Liquid methadone should be used to avoid diversion, and a mouth check should be performed after each dose., Routine, Name of patient's Methadone clinic? [facility], Methadone clinic phone: , Date last Methadone dose was given at the Outpatient Clinic? 12/12/2022, Dose of Methadone provided at the clinic? 132 mg Given 12/20/2022 8:25 AM EDT 132 mg Given 12/19/2022 8:50 AM EDT 132 mg Given 12/18/2022 8:40 AM EDT 132 mg methylPREDNISolone sod succ (pf) (SOLU-Medrol) (125 mg/2 mL) injection 125 mg 125 mg, Intravenous, ONCE, 1 dose, On Mon12/12/22 at 0941 Given 12/12/2022 10:19 AM EDT 125 mg nicotine (Nicoderm CQ) 14 mg/24 hr patch 14 mg 14 mg (1 patch), Transdermal, Administer over 24 Hours, DAILY, First dose on Mon12/12/22 at 1646, Until Discontinued, Apply new patch to clean, dry, hair-free skin on the upper body or upper outer arm; each patch should be applied to a different site. , Routine Patch Applied 12/14/2022 8:19 AM EDT 14 mg 10- Arm Upper (Right) Patch Applied 12/13/2022 9:16 AM EDT 14 mg 10- Arm Upper (Right) Patch Applied 12/12/2022 5:09 PM EDT 14 mg 03- Shoulder (Left) nicotine (Nicoderm CQ) 14 mg/24 hr patch 14 mg 14 mg (1 patch), Transdermal, Administer over 24 Hours, DAILY, First dose on Mon12/14/22 at 1245, Until Discontinued, Apply new patch to clean, dry, hair-free skin on the upper body or upper outer arm; each patch should be applied to a different site. , Routine Patch Applied 12/19/2022 8:30 AM EDT 14 mg 10- Arm Upper (Right) Patch Applied 12/18/2022 8:28 AM EDT 14 mg 10- Arm Upper (Right) Patch Applied 12/17/2022 9:22 AM EDT 14 mg 09- Arm Upper (Left) nicotine (Nicoderm CQ) 14 mg/24 hr patch Patch Verification Transdermal, 2 TIMES DAILY, First dose on Mon12/14/22 at 2100, Until Discontinued, Verify nicotine 14 mg/24 hr patch. ondansetron (Zofran) tablet 4 mg 4 mg, Oral, EVERY 8 HOURS PRN, Starting on Mon12/19/22 at 2036, Until Mon12/20/22 at 1510, Nausea, Routine Given 12/20/2022 11:48 AM EDT 4 mg Given 12/20/2022 4:33 AM EDT 4 mg Given 12/19/2022 8:46 PM EDT 4 mg ondansetron (Zofran) tablet 4 mg 4 mg, Oral, ONCE, 1 dose, On Mon12/20/22 at 1230, Routine Given 12/20/2022 11:50 AM EDT 4 mg polyethylene glycoL (Miralax) packet 17 g 17 g, Oral, DAILY, First dose on Mon12/12/22 at 1646, Until Discontinued, Routine Given 12/12/2022 5:19 PM EDT 17 g polyethylene glycoL (Miralax) packet 17 g 17 g, Oral, 2 TIMES DAILY, First dose (after last modification) on Mon12/13/22 at 0945, Until Discontinued, Routine Given 12/17/2022 9:05 PM EDT 17 g Given 12/16/2022 8:40 PM EDT 17 g Given 12/14/2022 8:19 AM EDT 17 g predniSONE (Deltasone) tablet 10 mg 10 mg, Oral, DAILY, First dose on Mon12/17/22 at 0900, Until Discontinued, Routine Given 12/19/2022 8:28 AM EDT 10 mg Given 12/18/2022 8:36 AM EDT 10 mg Given 12/17/2022 9:18 AM EDT 10 mg predniSONE (Deltasone) tablet 20 mg 20 mg, Oral, ONCE, 1 dose, On Mon12/19/22 at 1545, Routine Given 12/19/2022 4:10 PM EDT 20 mg predniSONE (Deltasone) tablet 30 mg 30 mg, Oral, DAILY, 1 dose, First dose on Mon12/18/22 at 1530, Routine Given 12/18/2022 4:09 PM EDT 30 mg predniSONE (Deltasone) tablet 30 mg 30 mg, Oral, DAILY, 5 doses, First dose (after last reorder) on Mon12/20/22 at 0900, Last dose on Mon12/24/22 at 0900, Routine Given 12/20/2022 8:11 AM EDT 30 mg predniSONE (Deltasone) tablet 40 mg 40 mg, Oral, DAILY, 4 doses, First dose on Mon12/13/22 at 0900, Last dose on Mon12/16/22 at 0900, Routine Given 12/16/2022 8:35 AM EDT 40 mg Given 12/15/2022 8:38 AM EDT 40 mg Given 12/14/2022 8:18 AM EDT 40 mg pregabalin (Lyrica) capsule 200 mg 200 mg, Oral, 3 TIMES DAILY, First dose on Mon12/12/22 at 1646, Until Discontinued, Routine Given 12/20/2022 8:11 AM EDT 200 mg Given 12/19/2022 8:06 PM EDT 200 mg Given 12/19/2022 2:10 PM EDT 200 mg QUEtiapine (SEROquel) tablet 300 mg 300 mg, Oral, NIGHTLY, First dose on Mon12/12/22 at 2100, Until Discontinued, Routine Given 12/19/2022 8:07 PM EDT 300 mg Given 12/18/2022 8:13 PM EDT 300 mg Given 12/17/2022 9:08 PM EDT 300 mg senna-docusate (Pericolace) 8.6-50 mg per tablet 2 tablet 2 tablet, Oral, 2 TIMES DAILY, First dose on Mon12/12/22 at 2100, Until Discontinued, Hold for loose stool. , Routine Given 12/19/2022 8:06 PM EDT 2 tablets Given 12/19/2022 8:28 AM EDT 2 tablets Given 12/18/2022 8:14 PM EDT 2 tablets sodium chloride 0.9 % (flush) (BD PosiFlush Normal Saline 0.9) flush 5 mL 5 mL, Intravenous, 2 TIMES DAILY, First dose on Mon12/12/22 at 2100, Until Discontinued, Routine Given 12/20/2022 8:25 AM EDT 5 mLs Given 12/19/2022 8:07 PM EDT 5 mLs Given 12/19/2022 8:51 AM EDT 5 mLs traZODone (Desyrel) tablet 25 mg 25 mg, Oral, ONCE, 1 dose, On Mon12/14/22 at 1830, Routine Given 12/14/2022 5:57 PM EDT 25 mg zonisamide (Zonegran) capsule 200 mg 200 mg, Oral, DAILY, First dose on Mon12/12/22 at 1646, Until Discontinued, DO NOT SPLIT, CRUSH OR OPEN, Routine Given 12/20/2022 8:11 AM EDT 200 mg Given 12/19/2022 8:28 AM EDT 200 mg Given 12/18/2022 8:35 AM EDT 200 mg documented in this encounter Active and Recently Administered Medications Times are shown in EDT. Scheduled Medication Order 12/18/2022 12/19/2022 12/20/2022 acetaminophen (Tylenol) tablet 650 mg 650 mg, Oral, EVERY 6 HOURS SCHEDULED, First dose (after last modification) on Mon12/16/22 at 1200, Until Discontinued, Administer for pain or temperature greater than or equal to 38.2 degrees Celsius. Maximum daily dose of acetaminophen from all sources not to exceed 4,000 mg. When ordered for pain, acetaminophen should be given even when other ordered pain medications are indicated., Routine 0022 (Given - Provider: Abi Coyle LPN)0557 (Given - Provider: Abi Coyle LPN)1228 (Given - Provider: Vaibhav Patton)1727 (Given - Provider: Vaibhav Patton)2352 (Given - Provider: Brittney Rangel RN) 0604 (Given - Provider: Brittney Rangel RN)1151 (Given - Provider: Vaibhav Patton)1737 (Given - Provider: Vaibhav Patton) 0000 (Not Given - Provider: Diana Posadas RN - Reason: Patient/family refused)0433 (Given - Provider: Diana Posadas RN)1200 (Not Given - Provider: Vaibhav Patton - Reason: Patient/family refused) budesonide-formoteroL (Symbicort) 160-4.5 mcg/actuation inhaler 2 Inhalation 2 .Inhalation , Inhalation, 2 TIMES DAILY, First dose on Mon12/12/22 at 2100, Until Discontinued, Routine 0908 (Given - Provider: Vaibhav Patton)2019 (Given - Provider: Brittney Rangel RN) 0852 (Given - Provider: Vaibhav Patton)2006 (Given - Provider: Diana Posadas RN) 0833 (Given - Provider: Vaibhav Patton) busPIRone (Buspar) tablet 15 mg 15 mg, Oral, 3 TIMES DAILY, First dose on Mon12/12/22 at 1646, Until Discontinued, Routine 0831 (Given - Provider: Vaibhav Patton)1409 (Given - Provider: Vaibhav Patton)2012 (Given - Provider: Brittney Rangel RN) 0900 (Given - Provider: Vaibhav Patton)1410 (Given - Provider: Vaibhav Patton)2005 (Given - Provider: Diana Posadas RN) 0811 (Given - Provider: Vaibhav Patton) DULoxetine DR (Cymbalta) capsule 60 mg 60 mg, Oral, DAILY, First dose (after last modification) on Mon12/13/22 at 0900, Until Discontinued, Routine 830 (Given - Provider: Vaibhav Patton) 08 (Given - Provider: Vaibhav Patton) 08 (Given - Provider: Vaibhav Patton) enoxaparin (Lovenox) (40 mg/0.4 mL) subcutaneous injection 40 mg 40 mg, Subcutaneous, NIGHTLY, First dose on Mon12/12/22 at 2100, Until Discontinued, Routine 2013 (Given - Provider: Brittney Rangel RN) 2045 (Given - Provider: Diana Posadas RN) ipratropium-albuteroL (Duoneb) 0.5 mg-3 mg(2.5 mg base)/3 mL nebulizer solution 3 mL 3 mL, Nebulization, EVERY 4 HOURS, First dose on Mon12/12/22 at 0941, Until Discontinued, Routine 0147 (Given - Provider: Abi Coyle LPN)0556 (Given - Provider: Abi Coyle LPN)0937 (Given - Provider: Vaibhav Patton)1337 (Given - Provider: Vaibhav Patton)1728 (Given - Provider: Vaibhav Patton)2141 (Not Given - Provider: Brittney Rangel RN - Reason: See comment - Comment: prn given earlier) 0141 (Not Given - Provider: Brittney Rangel RN - Reason: Patient/family refused)0541 (Not Given - Provider: Brittney Rangel RN - Reason: Patient/family refused)0847 (Given - Provider: Vaibhav Patton)1411 (Given - Provider: Vaibhav Patton)1737 (Given - Provider: Vaibhav Patton)2141 (Not Given - Provider: Diana Posadas RN - Reason: Patient/family refused) 0141 (Not Given - Provider: Diana Posadas RN - Reason: Patient/family refused)0541 (Not Given - Provider: Diana Posadas RN - Reason: Patient/family refused)0924 (Given - Provider: Vaibhav Patton) lidocaine (Lidoderm) 5% patch 1 patch 1 patch, Transdermal, Administer over 12 Hours, EVERY 24 HOURS, First dose on Mon12/18/22 at 1800, Until Discontinued, Apply patch(es) for 12 hours, and then remove for 12 hours., Routine 1800 (Patch Applied - Provider: Vaibhav Patton - Comment: Middle of back) 0605 (Patch Removed - Provider: Brittney Rangel RN - Comment: patch removed)1737 (Patch Applied - Provider: Vaibhav Patton - Comment: center lower back) 0537 (Patch Removed - Provider: Diana Posadas RN) lisinopriL (Zestril) tablet 20 mg (CANCELED) 20 mg, Oral, DAILY, First dose on Mon12/13/22 at 1230, Until Discontinued, Routine 0831 (Given - Provider: Vaibhav Patton) 0847 (Given - Provider: Vaibhav Patton) lisinopriL (Zestril) tablet 20 mg (COMPLETED) 20 mg, Oral, ONCE, 1 dose, On Mon12/19/22 at 1145, Routine 1152 (Given - Provider: Vaibhav Patton) lisinopriL (Zestril) tablet 40 mg 40 mg, Oral, DAILY, First dose (after last modification) on Mon12/20/22 at 0900, Until Discontinued, Routine 0811 (Given - Provider: Vaibhav Patton) methadone (Dolophine) (10 mg/mL) oral liquid 132 mg 132 mg, Oral, DAILY, First dose on Mon12/13/22 at 0600, Until Discontinued, Liquid methadone should be used to avoid diversion, and a mouth check should be performed after each dose., Routine, Name of patient's Methadone clinic? [facility] Methadone clinic phone: , Date last Methadone dose was given at the Outpatient Clinic? 12/12/2022, Dose of Methadone provided at the clinic? 132 mg 0840 (Given - Provider: Vaibhav Patton) 0850 (Given - Provider: Vaibhav Patton) 0825 (Given - Provider: Vaibhav Patton) nicotine (Nicoderm CQ) 14 mg/24 hr patch 14 mg(Linked Group 1) 14 mg (1 patch), Transdermal, Administer over 24 Hours, DAILY, First dose on Mon12/14/22 at 1245, Until Discontinued, Apply new patch to clean, dry, hair-free skin on the upper body or upper outer arm; each patch should be applied to a different site. , Routine 0827 (Patch Removed - Provider: Vaibhav Patton)0828 (Patch Applied - Provider: Vaibhav Patton) 0828 (Patch Removed - Provider: Vaibhav Patton)0830 (Patch Applied - Provider: Vaibhav Patton) 0830 (Patch Removed - Provider: Vaibhav Patton)0900 (Not Given - Provider: Vaibhav Patton - Reason: Patient/family refused) nicotine (Nicoderm CQ) 14 mg/24 hr patch Patch Verification(Linked Group 1) Transdermal, 2 TIMES DAILY, First dose on Mon12/14/22 at 2100, Until Discontinued, Verify nicotine 14 mg/24 hr patch. 0900 (Patch (dose and location) verified - Provider: Vaibhav Patotn)2013 (Patch (dose and location) verified - Provider: Brittney Rangel RN) 09 (Patch (dose and location) verified - Provider: Vaibhav Patton)2099 (Patch Not Verified (add comment) - Provider: Diana Posadas RN - Comment: pt states took it off) 0900 (Not Given - Provider: Vaibhav Patton - Reason: Patient/family refused) ondansetron (Zofran) tablet 4 mg (COMPLETED) 4 mg, Oral, ONCE, 1 dose, On Mon12/20/22 at 1230, Routine 1150 (Given - Provider: Vaibhav Patton - Comment: dose administered early d/t pt discharge, provider aware) polyethylene glycoL (Miralax) packet 17 g 17 g, Oral, 2 TIMES DAILY, First dose (after last modification) on Mon12/13/22 at 0945, Until Discontinued, Routine 0900 (Not Given - Provider: Vaibhav Patton - Reason: Patient/family refused)2013 (Not Given - Provider: Brittney Rangel RN - Reason: Patient/family refused) 0900 (Not Given - Provider: Vaibhav Patton - Reason: Patient/family refused)2099 (Not Given - Provider: Diana Posadas RN - Reason: Patient/family refused) 0900 (Not Given - Provider: Vaibhav Patton - Reason: Patient/family refused) predniSONE (Deltasone) tablet 10 mg (CANCELED) 10 mg, Oral, DAILY, First dose on Mon12/17/22 at 0900, Until Discontinued, Routine 0836 (Given - Provider: Vaibhav Patton) 0828 (Given - Provider: Vaibhav Patton) predniSONE (Deltasone) tablet 20 mg (COMPLETED) 20 mg, Oral, ONCE, 1 dose, On Mon12/19/22 at 1545, Routine 1610 (Given - Provider: Vaibhav Patton) predniSONE (Deltasone) tablet 30 mg (COMPLETED) 30 mg, Oral, DAILY, 1 dose, First dose on Mon12/18/22 at 1530, Routine 1609 (Given - Provider: Vaibhav Patton) predniSONE (Deltasone) tablet 30 mg 30 mg, Oral, DAILY, 5 doses, First dose (after last reorder) on Mon12/20/22 at 0900, Last dose on Mon12/24/22 at 0900, Routine 0811 (Given - Provider: Vaibhav Patton) pregabalin (Lyrica) capsule 200 mg 200 mg, Oral, 3 TIMES DAILY, First dose on Mon12/12/22 at 1646, Until Discontinued, Routine 0834 (Given - Provider: Vaibhav Patton)1410 (Given - Provider: Vaibhav Patton)2012 (Given - Provider: Brittney Rangel RN) 0827 (Given - Provider: Vaibhav Patton)1410 (Given - Provider: Vaibhav Patton)2005 (Given - Provider: Diana Posadas, CHRISTINE) 0811 (Given - Provider: Vaibhav Patton) QUEtiapine (SEROquel) tablet 300 mg 300 mg, Oral, NIGHTLY, First dose on Mon12/12/22 at 2100, Until Discontinued, Routine 2012 (Given - Provider: Brittney Rangel RN) 2006 (Given - Provider: Diana Posadas, CHRISTINE) senna-docusate (Pericolace) 8.6-50 mg per tablet 2 tablet 2 tablet, Oral, 2 TIMES DAILY, First dose on Mon12/12/22 at 2100, Until Discontinued, Hold for loose stool. , Routine 0830 (Given - Provider: Vaibhav Patton)2013 (Given - Provider: Brittney Rangel RN) 0828 (Given - Provider: Vaibhav Patton)2005 (Given - Provider: Diana Posadas RN) 0900 (Not Given - Provider: Vaibhav Patton - Reason: Patient/family refused) sodium chloride 0.9 % (flush) (BD PosiFlush Normal Saline 0.9) flush 5 mL 5 mL, Intravenous, 2 TIMES DAILY, First dose on Mon12/12/22 at 2100, Until Discontinued, Routine 0836 (Given - Provider: Vaibhav Patton)2014 (Given - Provider: Birttney Rangel RN) 0851 (Given - Provider: Vaibhav Patton)2006 (Given - Provider: Diana Posadas RN) 0825 (Given - Provider: Vaibhav Patton) zonisamide (Zonegran) capsule 200 mg 200 mg, Oral, DAILY, First dose on Mon12/12/22 at 1646, Until Discontinued, DO NOT SPLIT, CRUSH OR OPEN, Routine 0835 (Given - Provider: Vaibhav Patton) 0828 (Given - Provider: Vaibhav Patton) 0811 (Given - Provider: Vaibhav Patton) PRN Medication Order 12/18/2022 12/19/2022 12/20/2022 acetaminophen (Tylenol) tablet 325 mg 325 mg, Oral, ONCE PRN, 1 dose, Starting on 12/18/22 at 1251, Until Mon12/20/22 at 1510, Pain, Maximum dose of acetaminophen is 4,000 mg from all sources in 24 hours. When ordered for pain, acetaminophen should be given even when other ordered pain medications are indicated. , Routine bisacodyL (Dulcolax) suppository 10 mg 10 mg, Rectal, DAILY PRN, Starting on Mon12/13/22 at 0850, Until Mon12/20/22 at 1510, Constipation, Routine calcium carbonate (TUMS) chewable tablet 1,000 mg 1,000 mg (2 tablet), Oral, 3 TIMES DAILY PRN, Starting on 12/12/22 at 1644, Until Mon12/20/22 at 1510, Heartburn, Routine hydrOXYzine (Atarax) tablet 50 mg 50 mg, Oral, 3 TIMES DAILY PRN, Starting on Arlene 12/15/22 at 0858, Until Mon12/20/22 at 1510, Itching, Routine 2012 (Given - Provider: Brittney Rangel RN) 204 (Given - Provider: Diana Posadas RN) 0433 (Given - Provider: Diana Posadas RN) ipratropium-albuteroL (Duoneb) 0.5 mg-3 mg(2.5 mg base)/3 mL nebulizer solution 3 mL 3 mL, Nebulization, EVERY 4 HOURS PRN, Starting on Mon12/13/22 at 1028, Until Mon12/20/22 at 1510, Wheezing, Routine 2013 (Given - Provider: Brittney Rangle RN) 0847 (Not Given - Provider: Vaibhav Patton - Reason: See comment - Comment: medication scan error, gave routine dose at this time)1244 (Not Given - Provider: Vaibhav Patton - Reason: See comment - Comment: scanned wrong administration, see other duoneb order) ketorolac (Toradol) (15 mg/mL) injection 15 mg () 15 mg, Intravenous, EVERY 8 HOURS PRN, Starting on 12/17/22 at 1727, Until Mon12/18/22 at 0526, Pain, Routine 0147 (Given - Provider: Abi Coyle LPN) ketorolac (Toradol) (15 mg/mL) injection 15 mg 15 mg, Intravenous, EVERY 8 HOURS PRN, Starting on Mon12/18/22 at 0911, Until Mon12/20/22 at 1510, Pain, Routine 0937 (Given - Provider: Vaibhav Patton)1728 (Given - Provider: Vaibhav Patton)2352 (Given - Provider: Brittney Rangel RN) 0824 (Given - Provider: Vaibhav Patton)1610 (Given - Provider: Vaibhav Patton) 0023 (Given - Provider: Diana Posadas, CHRISTINE)0811 (Given - Provider: Vaibhav Patton) lidocaine (Xylocaine) 1% (10 mg/mL) injection 3 mg 3 mg (0.3 mL), Subcutaneous, ONCE PRN, 1 dose, Starting on Mon12/12/22 at 1644, Until Mon12/20/22 at 1510, for discomfort with PIV insertion, Routine LORazepam (Ativan) tablet 2 mg 2 mg, Oral, EVERY 8 HOURS PRN, Starting on Mon12/16/22 at 1730, Until Mon12/20/22 at 1510, Anxiety, Routine 0147 (Given - Provider: Abi Coyle LPN)0937 (Given - Provider: Vaibhav Patton)1728 (Given - Provider: Vaibhav Patton)2352 (Given - Provider: Brittney Rangel RN) 0824 (Given - Provider: Vaibhav Patton)1610 (Given - Provider: Vaibhav Patton) 0023 (Given - Provider: Diana Posadas, CHRISTINE)0811 (Given - Provider: Vaibhav Patton) melatonin tablet 3 mg (CANCELED) 3 mg, Oral, NIGHTLY PRN, Starting on Mon12/12/22 at 1644, Until Mon12/19/22 at 2037, Sleep, Routine 2012 (Given - Provider: Brittney Rangel RN) melatonin tablet 6 mg 6 mg, Oral, NIGHTLY PRN, Starting on Mon12/19/22 at 2037, Until Mon12/20/22 at 1510, Sleep, Routine 2045 (Given - Provider: Diana Posadas RN) ondansetron (Zofran) tablet 4 mg 4 mg, Oral, EVERY 8 HOURS PRN, Starting on Mon12/19/22 at 2036, Until Mon12/20/22 at 1510, Nausea, Routine 2045 (Given - Provider: Diana Posadas RN) 0433 (Given - Provider: Diana Posadas RN)1148 (Given - Provider: Vaibhav Patton) sodium chloride 0.9 % (flush) (BD PosiFlush Normal Saline 0.9) flush 5-20 mL 5-20 mL, Intravenous, EVERY 1 MIN PRN, Starting on Mon12/12/22 at 1644, Until Mon12/20/22 at 1510, flush, Flush pertains to all indwelling lines. Flush per protocol found in the job aid using the link provided on this medication record., Routine Linked Groups Order Group 1: nicotine (Nicoderm CQ) 14 mg/24 hr patch 14 mgJump to med 14 mg (1 patch), Transdermal, Administer over 24 Hours, DAILY, First dose on Mon12/14/22 at 1245, Until Discontinued, Apply new patch to clean, dry, hair-free skin on the upper body or upper outer arm; each patch should be applied to a different site. , Routine And nicotine (Nicoderm CQ) 14 mg/24 hr patch Patch VerificationJump to med Transdermal, 2 TIMES DAILY, First dose on Mon12/14/22 at 2100, Until Discontinued, Verify nicotine 14 mg/24 hr patch. documented in this encounter Care Teams Small Machine Bindery Operator Relationship Specialty Start Date End Date Travis Castaneda MD [address] [place] [address] PCP - General Internal Medicine 10/29/18 09/27/23 documented as of this encounter
--- OUTSIDE RECORDS SUMMARY | 2024-02-29 08:59 | XMS_ITS | Encounter Summary ---
Author Organization [facility] [place] [address] Care Team Providers Care Databases Computer Consultant Name Role Phone Travis Castaneda MD Primary Care Provider [phone] Encounter Details Date Type Department Care Team (Late Contact Info) Description 11/09/2022 [place] [address] Alda Shah Social History Tobacco [...] encounter Miscellaneous Notes * Telephone Encounter - Alda Shah - 11/09/2022 2:51 PM EDT Copied from [facility] #[id number]. Topic: Specialty Dept CRMs - Generic Call >> Nov 09, 2022 10:04 AM Aaron Kirby wrote: Specialist: Hetal Ojeda MD Relationship (if other than patient-full name): Patient Reason for Call: DLCO, [place] PFT scheduled for 12/12/22 documented in this encounter Plan of Treatment Upcoming Encounters Date Type Department Care Team (Late st Contact Info) Description 03/18/2024 8:30 AM EST [place] [address] 03/18/2024 9:30 AM EST [place] [address] Hetal Ojeda MD [facility] [place] [address] documented as of this encounter Visit Diagnoses Not on filedocumented in this encounter Care Teams Databases Computer Consultant Relationship Specialty Start Date End Date Travis Castaneda MD [address] [place] [address] PCP - General Internal Medicine 10/29/18 09/27/23 documented as of this encounter
--- OUTSIDE RECORDS SUMMARY | 2024-02-29 08:59 | XMS_ITS | Encounter Summary ---
Author Organization Pending Sale To [facility] Address [facility] [place] [address] Care Team Providers Care Silo Tender Name Role Phone Travis Castaneda MD Primary Care Provider [phone] Reason for Visit * Reason Onset Date Comments Medication Refill 11/11/2022 Encounter Details Date Type Department Care Team (Late st Contact Info) Description 11/11/2022 [place] [phone] Dawood Leyva RN Asthma-COPD overlap syndrome Social History Tobacco Use Types Packs/Day Years [...] 03/18/2024 8:30 AM EST [place] [phone] 03/18/2024 9:30 AM EST [place] [phone] Hetal Ojeda MD [facility] [place] [address] documented as of this encounter Visit Diagnoses Diagnosis Asthma-COPD overlap syndrome documented in this encounter Care Teams Silo Tender Relationship Specialty Start Date End Date Travis Castaneda MD [address] [place] [address] PCP - General Internal Medicine 10/29/18 09/27/23 documented as of this encounter
--- OUTSIDE RECORDS SUMMARY | 2024-02-29 08:59 | XMS_ITS | Encounter Summary ---
Author Organization Formerly [facility] Address [facility] [place] [address] Care Team Providers Care Religious Activities Director Name Role Phone Travis Castaneda MD Primary Care Provider + [phone] Encounter Details Date Type Department Care Team (Latest Contact Info) Description 07/06/2022 Travel Social History Tobacco Use Types Packs/Day [...] 03/18/2024 8:30 AM EST [place] [address] 03/18/2024 9:30 AM EST [place] [address] Hetal Ojeda MD [facility] PULMONARY MEDICINE [place] [id number] documented as of this encounter Visit Diagnoses Not on filedocumented in this encounter Care Teams Religious Activities Director Relationship Specialty Start Date End Date Travis Castaneda MD [address] [place] [address] PCP - General Internal Medicine 10/29/18 09/27/23 documented as of this encounter
--- OUTSIDE RECORDS SUMMARY | 2024-02-29 08:59 | XMS_ITS | Encounter Summary ---
Author Organization [facility] Address [facility] [place] [address] Care Team Providers Care Risk Control Analyst Name Role Phone Travis Castaneda MD Primary Care Provider + [phone] Reason for Visit * Reason Onset Date Comments Follow-up 06/07/2022 72 hour post dis charge follow up call Encounter Details Date Type Department Care Team (Late st Contact Info) Description 06/07/2022 Telephone Hospitalist [facility] [place] [phone] Charles Hunt MA Follow-up (72 hour post discharge follow up call) Social [...] Telephone Encounter - Charles Hunt MA - 06/07/2022 9:54 AM EST COPD patient- Discharged: 06/03/22 Summary of events post discharge: Patient was [...] call Pulmonology to reschedule his missed appointment. Telephone call placed to follow up on patient 72 hour week post hospital visit. The following questions were asked: How are you doing compared to the last day of the hospital? Patient states he is feeling a lot better since discharge. How is your SOB? 2/5 on exertion. Use a 1-5 scale: 1 being the worst its been and 5 being the best it has been If on 02, Yes [x] No [] how much are you on? 2- 2.5 liters continuous Have you checked your O2 sat on room air? Yes [] No [x] If yes How is your energy level? Patient reports energy is getting better. Date of last spirometry: 01/13/2021 Spirometry results: FEV1 44% predicted, FEV1/FVC 30% actual pre-BD Did you slate picker your meds? Picked up all medications. Are you taking your meds? Yes [x] No [] Do you know which visiting services and providers you will see next? No VNA services. Additional notes: Patient will be called again in one week. documented in this encounter Plan of Treatment Upcoming Encounters Date Type Department Care Team (Late st Contact Info) Description 03/18/2024 8:30 AM EST Appointment [place] [address] 03/18/2024 9:30 AM EST Office [place] [address] Hetal Ojeda MD [facility] [address] [place] [address] documented as of this encounter Visit Diagnoses Not on filedocumented in this encounter Care Teams Risk Control Analyst Relationship Specialty Start Date End Date Travis Castaneda MD [address] [place] [address] PCP - General Internal Medicine 10/29/18 09/27/23 documented as of this encounter
--- OUTSIDE RECORDS SUMMARY | 2024-02-29 08:59 | XMS_ITS | Encounter Summary ---
Author Organization [facility] Address [facility] [place] [address] Care Team Providers Care Transportation Clerk Name Role Phone Travis Castaneda MD Primary Care Provider [phone] Encounter Details Date Type Department Care Team (Late Contact Info) Description 08/30/2022 Telephone [place] [phone] Alda Shah Social History Tobacco Use Types [...] 03/18/2024 8:30 AM EST Appointment [place] [phone] 03/18/2024 9:30 AM EST Office [place] [phone] Hetal Ojeda MD [facility] [place] [address] documented as of this encounter Visit Diagnoses Not on filedocumented in this encounter Care Teams Transportation Clerk Relationship Specialty Start Date End Date Travis Castaneda MD [address] [place] [address] PCP - General Internal Medicine 10/29/18 09/27/23 documented as of this encounter
--- OUTSIDE RECORDS SUMMARY | 2024-02-29 08:59 | XMS_ITS | Encounter Summary ---
Author Organization [facility] Address [facility] [place] [address] Care Team Providers Care Maintenance Worker House Trailer Name Role Phone Travis Castaneda MD Primary Care Provider [phone] Encounter Details Date Type Department Care Team (Late st Contact Info) Description 07/05/2022 Telephone [place] [address] Emma Kang RMA Social History Tobacco Use Types Packs/Day Years [...] encounter Miscellaneous Notes * Telephone Encounter - Emma Kang RMA - 07/05/2022 4:02 PM EST Spoke with pt... allergies, meds, & tobacco reviewed. documented in this encounter Plan of Treatment Upcoming Encounters Date Type Department Care Team (Late st Contact Info) Description 03/18/2024 8:30 AM EST Appointment [place] [address] 03/18/2024 9:30 AM EST Office [place] [address] Hetal Ojeda MD [facility] [place] [address] documented as of this encounter Visit Diagnoses Not on filedocumented in this encounter Care Teams Maintenance Worker House Trailer Relationship Specialty Start Date End Date Travis Castaneda MD [address] [place] [address] PCP - General Internal Medicine 10/29/18 09/27/23 documented as of this encounter
--- OUTSIDE RECORDS SUMMARY | 2024-02-29 08:59 | XMS_ITS | Encounter Summary ---
Author Organization [facility] Address [facility] [place] [address] Care Team Providers Care Driller And Broacher Name Role Phone Travis Castaneda MD Primary Care Provider [phone] Encounter Details Date Type Department Care Team (Latest Contact Info) Description 09/02/2022 12:00 PM EDT - 09/02/2022 11:59 PM EDT Hospital Encounter Pulmonology at [facility] [place] [phone] COPD, very severe Discharge Disposition: Home Social History Tobacco Use [...] report, gets take home doses, MIGUEL ANGEL [facility] [phone] last dose 12/12/22 per patient LORazepam (ATIVAN) [...] 60 capsule 11/26/2018 predniSONE (Deltasone) 10 mg tabletIndications:Ast hma-COPD overlap syndrome Take 1 tablet by mouth daily. 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 severe Take 2 tabs on [...] 03/18/2024 8:30 AM EST [place] [phone] 03/18/2024 9:30 AM EST [place] [phone] Hetal Ojeda MD [facility] [place] [address] documented as of this encounter Procedures Procedure Name Priority Date/Time Associated Diagnosis Comments COMMON PULMONARY FUNCTION TEST Routine 09/02/2022 12:18 PM EDT COPD, very severe documented in this encounter Results * Pulmonary [...] / FVC LLN 68 % COMPAS PFT [id number] Actual Pre-BD 0.27 L/s COMPAS PFT [id number] Pre-BD % of Predicted 8 % COMPAS PFT [id number] Predicted 3.57 L/s COMPAS PFT [id number] Pre-BD Z-Score -4.53 COMPAS PFT DLCO Hb [...] classified documented in this encounter Care Teams Driller And Broacher Relationship Specialty Start Date End Date Travis Castaneda MD [address] [place] [address] PCP - General Internal Medicine 10/29/18 09/27/23 documented as of this encounter
--- OUTSIDE RECORDS SUMMARY | 2024-02-29 08:59 | XMS_ITS | Encounter Summary ---
Author Organization [facility] Address [facility] [place] [address] Care Team Providers Care Dishwasher Name Role Phone Travis Castaneda MD Primary Care Provider + [phone] Encounter Details Date Type Department Care Team (Latest Contact Info) Description 09/02/2022 Travel Social History Tobacco Use Types Packs/Day [...] 03/18/2024 8:30 AM EST [place] [address] 03/18/2024 9:30 AM EST [place] [address] Hetal Ojeda MD [facility] PULMONARY MEDICINE [place] [id number] documented as of this encounter Visit Diagnoses Not on filedocumented in this encounter Care Teams Dishwasher Relationship Specialty Start Date End Date Travis Castaneda MD [address] [place] [address] PCP - General Internal Medicine 10/29/18 09/27/23 documented as of this encounter
--- OUTSIDE RECORDS SUMMARY | 2024-02-29 08:59 | XMS_ITS | Encounter Summary ---
Author Organization [facility] Address [facility] [place] [address] Care Team Providers Care Health Insurance Adjuster Name Role Phone Travis Castaneda MD Primary Care Provider [phone] Encounter Details Date Type Department Care Team (Late Contact Info) Description 07/14/2022 Telephone [place] [phone] Alda Shah Social History Tobacco Use Types [...] 03/18/2024 8:30 AM EST Appointment [place] [phone] 03/18/2024 9:30 AM EST [place] [address] Hetal Ojeda MD [facility] [address] PULMONARY MEDICINE [place] [phone] documented as of this encounter Visit Diagnoses Not on filedocumented in this encounter Care Teams Health Insurance Adjuster Relationship Specialty Start Date End Date Travis Castaneda MD [address] [place], [place] [id number] PCP - General Internal Medicine 10/29/18 09/27/23 documented as of this encounter
--- OUTSIDE RECORDS SUMMARY | 2024-02-29 08:59 | XMS_ITS | Encounter Summary ---
Author Organization [facility] [place] [address] Care Team Providers Care Communications Systems Engineer Name Role Phone Travis Castaneda MD Primary Care Provider [phone] Encounter Details Date Type Department Care Team (Late st Contact Info) Description 11/11/2022 Telephone [place] [address] Lorie Hernandez RT Social History Tobacco Use Types Packs/Day Years [...] encounter Miscellaneous Notes * Telephone Encounter - Lorie Hernandez RT - 11/11/2022 9:10 AM EDT Called Jared digital learning platforms manager at [facility] and to call regarding Medicare O2 claim status for potential transition to portable oxygen concentrator. documented in this encounter Plan of Treatment Upcoming Encounters Date Type Department Care Team (Late st Contact Info) Description 03/18/2024 8:30 AM EST App[place] [phone] 03/18/2024 9:30 AM EST Office [place] [address] Hetal Ojeda MD [facility] [place] [address] documented as of this encounter Visit Diagnoses Not on filedocumented in this encounter Care Teams Communications Systems Engineer Relationship Specialty Start Date End Date Travis Castaneda MD [address] [place] [address] PCP - General Internal Medicine 10/29/18 09/27/23 documented as of this encounter
--- OUTSIDE RECORDS SUMMARY | 2024-02-29 08:59 | XMS_ITS | Encounter Summary ---
Author Organization [facility] [place] [address] Care Team Providers Care Dining Services Director Name Role Phone Travis Castaneda MD Primary Care Provider [phone] Encounter Details Date Type Department Care Team (Late Contact Info) Description 06/16/2022 Telephone [place] [address] Alda Shah Social History Tobacco [...] * Telephone Encounter - Alda Shah - 06/16/2022 12:15 PM EST Copied from [facility] #[id number]. Topic: Specialty Dept CRMs - Generic Call >> Jun 16, 2022 8:25 AM Adelina Kowalski wrote: Specialist: Rusty Fong MD Relationship (if other than patient-full name): self Garret Barros Reason for Call: PFT scheduled 07/06/22 8:00. Order not yet linked documented in this encounter Plan of Treatment Upcoming Encounters Date Type Department Care Team (Late Contact Info) Description 03/18/2024 8:30 AM EST Appointment [place] [address] 03/18/2024 9:30 AM EST Office Visit [place] [address] Hetal Ojeda MD [facility] [place] [address] documented as of this encounter Visit Diagnoses Not on filedocumented in this encounter Care Teams Dining Services Director Relationship Specialty Start Date End Date Travis Castaneda MD [address] [place] [address] PCP - General Internal Medicine 10/29/18 09/27/23 documented as of this encounter
--- OUTSIDE RECORDS SUMMARY | 2024-02-29 09:00 | XMS_ITS | Encounter Summary ---
Author Organization [facility] Address [facility] [place] [address] Care Team Providers Care Chemical Laboratory Technician Name Role Phone Travis Castaneda MD Primary Care Provider [phone] Encounter Details Date Type Department Care Team (Late st Contact Info) Description 10/28/2021 [place] [address] Sondra Mullen Social History Tobacco Use Types Packs/Day Years Used Date Smoking Tobacco: Every Day Cigarettes 0.3 30 Smokeless Tobacco: Never Comments:1 pack last about 1 0 days; previously was 2 ppd Alcohol Use Standard Drinks/Week Comments Not Currently 0 (1 standard drink = 0.6 oz pur e alcohol) Sex and Gender Information Value Date Recorded Sex Assigned at Not on file Gender Identity Not on file Sexual Orientation Not on file documented as of this encounter Miscellaneous Notes * Telephone Encounter - Sondra Mullen - 10/28/2021 8:53 AM EDT sched fuv with vivi pt aware dtl added to wait list documented in this encounter Plan of Treatment Upcoming Encounters Date Type Department Care Team (Late st Contact Info) Description 03/18/2024 8:30 AM EST Appoint[place] [phone] 03/18/2024 9:30 AM EST [place] [address] Hetal Ojeda MD [facility] [place] [address] documented as of this encounter Visit Diagnoses Not on filedocumented in this encounter Care Teams Chemical Laboratory Technician Relationship Specialty Start Date End Date Travis Castaneda MD [address] [place] [address] PCP - General Internal Medicine 10/29/18 09/27/23 documented as of this encounter
--- OUTSIDE RECORDS SUMMARY | 2024-02-29 09:00 | XMS_ITS | Encounter Summary ---
Author Organization [facility] Address [facility] [place] [address] Care Team Providers Care Stone Gang Sawyer Name Role Phone Travis Castaneda MD Primary Care Provider [phone] Encounter Details Date Type Department Care Team (Late st Contact Info) Description 12/21/2021 Telephone [place] [address] Sondra Mullen Social History Tobacco [...] * Telephone Encounter - Sondra Mullen - 12/21/2021 8:45 AM EDT lm to sched pft documented in this encounter Plan of Treatment Upcoming Encounters Date Type Department Care Team (Late st Contact Info) Description 03/18/2024 8:30 AM EST Appointment [place] [phone] 03/18/2024 9:30 AM EST Office Visit [place] [address] Hetal Ojeda MD [facility] [place] [address] documented as of this encounter Visit Diagnoses Not on filedocumented in this encounter Care Teams Stone Gang Sawyer Relationship Specialty Start Date End Date Travis Castaneda MD [address] [place] [address] PCP - General Internal Medicine 10/29/18 09/27/23 documented as of this encounter
--- OUTSIDE RECORDS SUMMARY | 2024-02-29 09:00 | XMS_ITS | Encounter Summary ---
Author Organization [facility] [place] [address] Care Team Providers Care Pump Operator Name Role Phone Travis Castaneda MD Primary Care Provider [phone] Reason for Referral * Diagnostic Test (Routine) - Closed Specialty Diagnoses / Procedures Referred By Contac t Referred To Contact Radiology Diagnoses Lung nodule Procedures CT Chest wo Contrast (Generic) Hetal Ojeda MD [facility] [place] [address] [facility] [address] Referral ID Status Reason Start Date Expiration Date V isits Requested Visits Authorized [id number] Closed Specialty Service Requested 05/19/2021 11/16/2022 1 1 Reason for Visit * Diagnostic Test (Routine) - Closed Specialty Diagnoses / Procedures Referred By Contsola arguelles Referred To Contact Radiology Diagnoses Lung nodule Procedures CT Chest wo Contrast (Generic) Hetal Ojeda MD [facility] [place] [address] [place] [address] Referral ID Status Reason Start Date Expiration Date V isits Requested Visits Authorized [id number] Closed Specialty Service Requested 05/19/2021 11/16/2022 1 1 Encounter Details Date Type Department Care Team (Latest Contact Info) Description 09/15/2021 8:43 AM EDT - 09/15/2021 11:59 PM EDT Hospital Encounter CT Scan [place] [facility] [place] [address] Hetal Ojeda MD [facility] [place] [address] Lung nodule Discharge Disposition: Home Social History Tobacco Use [...] Sig Dispensed Refills Start Date End Date lisinopriL (Prinivil;Zestril) 20 mg Tablet Take 40 mg by mouth daily. Flovent HFA 220 mcg/actuation HFA Aerosol Inhaler Inhale 2 puffs into the lungs 2 times daily. 01/24/2020 methadone (Dolophine) 10 mg/mL Concentrate Take 132 mg by mouth daily. Per methadone clinic, Per patient report, gets take home doses, [facility] [phone] last dose 12/12/22 per patient LORazepam (ATIVAN) [...] times daily. 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 10 tablet 09/15/2021 09/20/2021 azithromycin (Zithromax) 250 mg Tablet Day1:take 2 tablets daily, Day 2-5:Take one tablet daily 6 tablet 08/07/2020 06/03/2022 Anoro Ellipta 62.5-25 mcg/actuation Disk with Device Inhale 1 Inhalation into the lungs daily. 12/12/2019 06/26/2023 codeine-guaiFENesin (guaiFENesin AC) 10-100 mg/5 mL Liquid Take 5 mLs by mouth 3 times daily as needed for Cough. Do not take with ativan 120 mL 02/03/2020 07/06/2022 DULoxetine (CYMBALTA) 60 mg Capsule, Delayed Release(E.C.) Take 1 capsule by mouth 2 times daily. 01/31/2019 12/19/2022 busPIRone (BUSPAR) 15 mg Tablet Take 15 mg by mouth 3 times daily. 06/03/2022 documented as of this encounter Plan of Treatment Upcoming Encounters Date Type Department Care Team (Late st Contact Info) Description 03/18/2024 8:30 AM EST Appointment [place] [phone] 03/18/2024 9:30 AM EST Office [place] [address] Hetal Ojeda MD [facility] [place] [address] documented as of this encounter Procedures Procedure Name Priority Date/Time Associated Diagnosis Comments CT CHEST WO CONTRAST (GENERIC) Routine 09/15/2021 8:59 AM EDT Lung nodule documented in this encounter Results * CT Chest wo Contrast (Generic) (09/15/2021 8:59 AM EDT) Anatomical Region Laterality Modality Chest Computed Tomogra phy 09/15/2021 9:17 AM EDT Impressions 09/15/2021 2:16 PM EDT 1. ??Stable 5 mm right middle lobe pulmonary nodule. ??Given long-term stability, this is likely sequela of prior infectious or inflammatory insult. ??No further imaging follow-up is required. 2. ??Stable calcified bilateral pulmonary nodules, consistent with prior granulomatous disease. 3. ??Moderate predominantly paraseptal emphysema. 4. ??New scattered regions of architectural distortion and pulmonary parenchymal scarring corresponding to prior groundglass, likely infectious or inflammatory, opacities as seen on prior CT of September 14, 2020. 5. ??No new focal pulmonary nodule. Thank you for letting us participate in the care of this patient. ??If you are a health care provider and have any questions regarding this report, please contact the number below. ??For patients who have questions please contact the health rn long term care that requested your imaging first. ? Narrative 09/15/2021 2:16 PM EDT EXAMINATION: CT CHEST WO CONTRAST (GENERIC) CLINICAL HISTORY: 46-year-old male with 5 mm pulmonary nodule on CT of August 2020. Current smoker. ??Follow-up. TECHNIQUE: 3.75 mm thick axial contiguous sections were obtained through the chest via helical acquisition without intravenous contrast administration. Thin-section reconstructions as well as coronal and sagittal reformatted images were generated. COMPARISON: Comparison is made to multiple prior CT of the chest examinations, the most recent which is dated September 14, 2020. FINDINGS: Limitations: Lack of intravenous contrast limits evaluation of the visceral organs, mediastinum, and vascular structures. Spreader Operator Images: Noncontributory. Pulmonary parenchyma: There is moderate predominantly paraseptal emphysema with an apical predominance. ??There are scattered regions of architectural distortion throughout the bilateral lungs, corresponding to the regions of groundglass opacity as seen on September 14, 2020. ??There are scattered calcified granulomas throughout the bilateral lungs. ??The 5 mm subpleural right middle lobe pulmonary nodule is unchanged dating back to January 19, 2019. ??No new pulmonary nodules are identified. Airways: The central airways are patent. ??There is no endobronchial or endotracheal lesion. Pleura: There is no pleural effusion or pneumothorax. Lymph nodes: There are no pathologically enlarged lymph nodes. ??There is a stable subcentimeter right paratracheal lymph node unchanged over multiple prior examinations. Heart, pericardium, and great vessels: Cardiac size is within normal limits. There is physiologic pericardial fluid. ??There is mild multifocal atherosclerotic calcification predominantly within the left anterior descending coronary artery. ??The unenhanced aorta and pulmonary arteries are normal in course. ??There are stable varicosities throughout the right chest wall. Other mediastinal structures: The mediastinal fat is preserved. ??Limited evaluation of the esophagus is unremarkable. Lower neck: Visualized structures within the inferior neck are unremarkable. Upper abdomen: Partially visualized is the superior aspect of the infrarenal inferior vena cava filter. ??There is a fluid attenuating 18 mm cyst within the right interpolar kidney. Body wall soft tissues: No. Skeletal structures: There are moderate degenerative changes of visualized spine. ??There are stable compression fracture deformities of T4 and T6 at the expense of the superior endplates. ??There are Schmorl's nodes at multiple levels. Procedure Note Anjum Bueno, - 09/15/2021 EXAMINATION: CT CHEST WO CONTRAST (GENERIC) CLINICAL HISTORY: 46-year-old male with 5 mm pulmonary nodule on CT of August2020. Current smoker. Follow-up. TECHNIQUE: 3.75 mm thick axial contiguous sections were obtained throughthe chest via helical acquisition without intravenous contrastadministration. Thin-section reconstructions as well as coronal and sagittal reformattedimages were generated. COMPARISON: Comparison is made to multiple prior CT of the chestexaminations, the most recent which is dated September 14, 2020. FINDINGS: Limitations: Lack of intravenous contrast limits evaluation of thevisceral organs, mediastinum, and vascular structures. Spreader Operator Images: Noncontributory. Pulmonary parenchyma: There is moderate predominantly paraseptal emphysemawith an apical predominance. There are scattered regions of architecturaldistortion throughout the bilateral lungs, corresponding to the regions ofgroundglass opacity as seen on September 14, 2020. There are scattered calcifiedgranulomas throughout the bilateral lungs. The 5 mm subpleural right middle lobepulmonary nodule is unchanged dating back to January 19, 2019. No new pulmonarynodules are identified. Airways: The central airways are patent. There is no endobronchial or endotracheal lesion. Pleura: There is no pleural effusion or pneumothorax. Lymph nodes: There are no pathologically enlarged lymph nodes. There ranjan stable subcentimeter right paratracheal lymph node unchanged over multipleprior examinations. Heart, pericardium, and great vessels: Cardiac size is within normallimits. There is physiologic pericardial fluid. There is mild multifocal atherosclerotic calcification predominantly within the left anteriordescending coronary artery. The unenhanced aorta and pulmonary arteries are normalin course. There are stable varicosities throughout the right chest wall. Other mediastinal structures: The mediastinal fat is preserved. Limited evaluation of the esophagus is unremarkable. Lower neck: Visualized structures within the inferior neck areunremarkable. Upper abdomen: Partially visualized is the superior aspect of theinfrarenal inferior vena cava filter. There is a fluid attenuating 18 mm cyst withinthe right interpolar kidney. Body wall soft tissues: No. Skeletal structures: There are moderate degenerative changes ofvisualized spine. There are stable compression fracture deformities of T4 and T6 atthe expense of the superior endplates. There are Schmorl's nodes atmultiple levels. IMPRESSION 1. Stable 5 mm right middle lobe pulmonary nodule. Given long-termstability, this is likely sequela of prior infectious or inflammatory insult. Nofurther imaging follow-up is required. 2. Stable calcified bilateral pulmonary nodules, consistent with prior granulomatous disease. 3. Moderate predominantly paraseptal emphysema. 4. New scattered regions of architectural distortion and pulmonaryparenchymal scarring corresponding to prior groundglass, likely infectious orinflammatory, opacities as seen on prior CT of September 14, 2020. 5. No new focal pulmonary nodule. Thank you for letting us participate in the care of this patient. If youare a health care provider and have any questions regarding this report,please contact the number below. For patients who have questions please contactthe health rn long term care that requested your imaging first. Hetal Ojeda MD IMG CT ORDERABLES documented in this encounter Visit Diagnoses Diagnosis Lung nodule Solitary pulmonary nodule documented in this encounter Care Teams Pump Operator Relationship Specialty Start Date End Date Travis Castaneda MD [address] [place] [id number] PCP - General Internal Medicine 10/29/18 09/27/23 documented as of this encounter
--- OUTSIDE RECORDS SUMMARY | 2024-02-29 09:00 | XMS_ITS | Encounter Summary ---
Author Organization [facility] [place] [address] Care Team Providers Care Lottery Manager Name Role Phone Travis Castaneda MD Primary Care Provider [phone] Reason for Visit * Auth/Cert (Routine) Specialty Diagnoses / Procedures Referred By Gulshan t Referred To Contact Diagnoses COPD with acute exacerbation [place] [address] [facility] Referral ID Status Reason Start Date Expiration Date Visits Re quested Visits Authorized [id number] 1 1 Encounter Details Date Type Department Care Team (Latest Contact Info) Description 05/23/2022 10:40 AM EST - 05/23/2022 11:30 AM EST Hospital En[place] [address] Asthma-COPD overlap syndrome; COPD with exacerbation Discharge [...] gets take home doses, MIGUEL ANGEL juárez [facility] [phone] last dose 12/12/22 per patient LORazepam (ATIVAN) [...] capsule 11/26/2018 polyethylene glycoL (Miralax) 17 gram Powder in [...] needed for Constipation. 30 tablet 06/03/2022 09/24/2023 azithromycin (Zithromax) 250 mg Tablet Day1:take 2 [...] 03/18/2024 8:30 AM EST Appointment [place] [address] 03/18/2024 9:30 AM EST Office [place] [address] Hetal Ojeda MD [facility] [place] [address] Scheduled Orders Name Type Priority Associated Diagnoses Orde r Schedule Pulmonary Function Testing PFT Routine Asthma-COPD overlap syndrome 1 Occurrences starting 05/23/2022 until 05/23/2022 Pulmonary Function Testing PFT Routine COPD with exacerbation 1 Occurrences starting 05/23/2022 until 05/23/2022 documented as of this encounter Visit Diagnoses Diagnosis Asthma-COPD overlap syndrome COPD with exacerbation Obstructive chronic bronchitis with exacerbation documented in this encounter Care Teams Lottery Manager Relationship Specialty Start Date End Date Travis Castaneda MD [address] [place] [address] PCP - General Internal Medicine 10/29/18 09/27/23 documented as of this encounter
--- OUTSIDE RECORDS SUMMARY | 2024-02-29 09:00 | XMS_ITS | Encounter Summary ---
Author Organization [facility] Address [facility] [place] [place] [address] Care Team Providers Care Hydro Excavation Operator Name Role Phone Travis Castaneda MD Primary Care Provider [phone] Encounter Details Date Type Department Care Team (Late st Contact Info) Description 09/30/2020 Telephone [place] [phone] Alda Shah Social History Tobacco Use Types Packs/Day Years Used Date Smoking Tobacco: Every Day Cigarettes 0.3 30 Smokeless Tobacco: Never Comments:1 pack last about 1 0 days Alcohol Use Standard Drinks/Week Comments Not Currently [...] 03/18/2024 8:30 AM EST Appointment [place] [address] 03/18/2024 9:30 AM EST Office [place] [address] Hetal Ojeda MD [facility] [place] [address] documented as of this encounter Visit Diagnoses Not on filedocumented in this encounter Care Teams Hydro Excavation Operator Relationship Specialty Start Date End Date Travis Castaneda MD [address] [place] [address] PCP - General Internal Medicine 10/29/18 09/27/23 documented as of this encounter
--- OUTSIDE RECORDS SUMMARY | 2024-02-29 09:00 | XMS_ITS | Encounter Summary ---
Author Organization [facility] Address [facility] [place] [address] Care Team Providers Care Conduit Helper Name Role Phone Travis Castaneda MD Primary Care Provider [phone] Encounter Details Date Type Department Care Team (Late Contact Info) Description 05/09/2022 Telephone [place] [phone] Alda Shah Social History Tobacco Use Types [...] 03/18/2024 8:30 AM EST Appointment [place] [phone] 03/18/2024 9:30 AM EST Office [place] [phone] Hetal Ojeda MD [facility] [place] [address] documented as of this encounter Visit Diagnoses Not on filedocumented in this encounter Care Teams Conduit Helper Relationship Specialty Start Date End Date Travis Castaneda MD [address] [place] [address] PCP - General Internal Medicine 10/29/18 09/27/23 documented as of this encounter
--- OUTSIDE RECORDS SUMMARY | 2024-02-29 09:00 | XMS_ITS | Encounter Summary ---
Author Organization [facility] Address [facility] [place] [address] Care Team Providers Care Pinked Edge Sewing Machine Operator Name Role Phone Travis Castaneda MD Primary Care Provider [phone] Encounter Details Date Type Department Care Team (Late Contact Info) Description 11/16/2020 Telephone [place] [phone] Alda Shah Social History Tobacco Use Types [...] 03/18/2024 8:30 AM EST Appointment [place] [phone] 03/18/2024 9:30 AM EST [place] [address] Hetal Ojeda MD [facility] [place] [address] documented as of this encounter Visit Diagnoses Not on filedocumented in this encounter Care Teams Pinked Edge Sewing Machine Operator Relationship Specialty Start Date End Date Travis Castaneda MD [address] [place], [place] [address] PCP - General Internal Medicine 10/29/18 09/27/23 documented as of this encounter
--- OUTSIDE RECORDS SUMMARY | 2024-02-29 09:00 | XMS_ITS | Encounter Summary ---
Author Organization [facility] Address [facility] [place] [address] Care Team Providers Care Manager User Experience Name Role Phone Travis Castaneda MD Primary Care Provider [phone] Encounter Details Date Type Department Care Team (Late st Contact Info) Description 10/05/2020 Orders [place] [phone] Hetal Ojeda MD [facility] [place] [address] Lung nodule Social History Tobacco Use Types Packs/Day Years [...] 03/18/2024 8:30 AM EST Appointment [place] [phone] 03/18/2024 9:30 AM EST Office [place] [phone] Hetal Ojeda MD [facility] [place] [address] documented as of this encounter Results * Request For 2nd Read CT Chest Abdomen Pelvis (10/05/2020 9:57 AM EDT) Anatomical Region Laterality Modality Chest, Abdomen, Pelvis SO Impressions 10/05/2020 11:08 AM EDT 1. ??There is evidence of old granulomatous disease manifested as multiple bilateral calcified pulmonary granulomatous and calcified mediastinal and hilar lymph nodes. 2. ??5 mm noncalcified right middle lobe nodule is unchanged over a nearly two-year interval. Recommend 12 month follow-up CT to ensure stability. 3. ??Multifocal inflammatory changes in the lungs concerning for acute bronchitis and possible pneumonia. 4. ??Bullous emphysema. 5. ??Dilated common bile duct is of uncertain etiology and significance. Correlation with LFTs is recommended. Thank you for letting us participate in the care of this patient. ??If you are a health care provider and have any questions regarding this report, please contact the number below. ??For patients who have questions please contact the health patient centered care specialist that requested your imaging first. ? Electronically signed by: America Martinez MD, [facility] ([phone]), at 10/05/2020 11:08 AM Narrative 10/05/2020 11:08 AM EDT EXAMINATION: REQUEST FOR 2ND READ CT CHEST ABDOMEN PELVIS CLINICAL HISTORY: COPD, history of pulmonary nodules, f/u nodules; Sending Institution [facility]; Date of exam [id number]; I believe a reinterpretation of this exam may alter care of Patient. Yes TECHNIQUE: Axial, sagittal, and coronal and and thick MIP images from an IV contrast-enhanced arterial phase CT of the chest, abdomen, and pelvis are submitted for interpretation from [facility]. Scan date 09/14/2020. Oral contrast not given. COMPARISON: CT chest 11/19/2019, 10/16/2019, 01/19/2019 FINDINGS: Chest: Lungs and large airways: There is a small amount of bronchial mucus, and diffuse bronchial wall thickening. Multiple subpleural apical bulla are present as well as smaller areas of parenchymal destruction secondary to emphysema. Multifocal peribronchial groundglass opacities are present in the upper lobes, and in the supra diaphragmatic right lower lobe where there is also associated atelectasis. ??There is focal atelectasis in the lateral segment of the lingula and in the subpleural left lower lobe as well as associated scarring that is unchanged. ??There are multiple calcified granulomas bilaterally and a 5 mm noncalcified subpleural right middle lobe nodule which are all unchanged since 2019. Pleura: No effusion. Heart/vasculature: Normal size. No pericardial effusion. Normal caliber aorta. There are multiple serpiginous venous collaterals along the anterior right chest wall suggestive of right axillary or subclavian stenosis. Lymph nodes: There are clustered lymph nodes in the left axilla however none are definitively pathologic based on size criteria. Multiple calcified subcarinal and left hilar lymph nodes are secondary to old granulomatous disease. Borderline enlarged right hilar lymph nodes, prevascular and mediastinal lymph nodes are unchanged from 2019. Mediastinum and martir: Normal. Abdomen/pelvis: Liver: Normal size and attenuation without lesions. Bile ducts: No intrahepatic dilatation is visualized. Common bile duct is dilated to 14 mm. No calcified stones within, and the duct tapers normally within the head of the pancreas. Gallbladder: No calcified gallstones. Normal caliber wall. Pancreas: Normal morphology. No ductal dilatation. Spleen: Normal. Adrenals: Normal. Kidneys: 17 mm right upper pole simple cyst is present. No solid renal lesions. No collecting system dilatation or calculi. Urinary Bladder: Mildly distended. No wall thickening or calculi. Vasculature: The thoracic and abdominal aorta are normal in caliber without stenosis or aneurysm. Minimal calcified atherosclerosis of the distal infrarenal aorta. Great vessel origins are widely patent. Widely patent celiac axis, superior and inferior mesenteric arteries. Dual left and single right renal artery are widely patent. Bilateral common, external and internal iliac and common femoral arteries are widely patent. The visualized portions of the proximal superficial femoral and profunda femoral arteries are also widely patent. An IVC filter is tilted to the right such that the apex lies adjacent to the right lateral caval wall; no change from prior. Lymph Nodes: Portacaval lymph node is enlarged to 17 mm short axis, however unchanged from 2019. Scattered small ita hepatis and retroperitoneal lymph nodes are not pathologic based on size criteria, and are also stable. Bowel: No dilated small or large bowel loops or bowel wall thickening. There is moderate fecal loading of the colon throughout. Peritoneum and mesentery: No ascites, free air, or loculated fluid collection. No mesenteric inflammation. Abdominal wall: Normal. Reproductive organs: Normal. Osseous structures: There are Schmorl's nodes extending through the T10 and T11 superior endplates. Mild superior endplate T6 compression fracture is unchanged. There are no suspicious lytic or sclerotic osseous lesions. Within the intertrochanteric left femur, there is a ghost hole track from prior noelle. There is also a mixed ring and arc type calcification structure in the medullary canal that is likely an enchondroma or bone infarct. Procedure Note America Martinez MD - 10/05/2020 EXAMINATION: REQUEST FOR 2ND READ CT CHEST ABDOMEN PELVIS CLINICAL HISTORY: COPD, history of pulmonary nodules, f/u nodules;Sending Institution [facility]; Date of exam 20200914; I believe a reinterpretation ofthis exam may alter care of Patient. Yes TECHNIQUE: Axial, sagittal, and coronal and and thick MIP images from an IV contrast-enhanced arterial phase CT of the chest, abdomen, and pelvisare submitted for interpretation from [facility].Scan date 09/14/2020. Oral contrast not given. COMPARISON: CT chest 11/19/2019, 10/16/2019, 01/19/2019 FINDINGS: Chest: Lungs and large airways: There is a small amount of bronchial mucus, anddiffuse bronchial wall thickening. Multiple subpleural apical bulla are present aswell as smaller areas of parenchymal destruction secondary to emphysema. Multifocal peribronchial groundglass opacities are present in the upperlobes, and in the supra diaphragmatic right lower lobe where there is alsoassociated atelectasis. There is focal atelectasis in the lateral segment of thelingula and in the subpleural left lower lobe as well as associated scarring thatis unchanged. There are multiple calcified granulomas bilaterally and a 5mm noncalcified subpleural right middle lobe nodule which are all unchangedsince 2019. Pleura: No effusion. Heart/vasculature: Normal size. No pericardial effusion. Normal caliberaorta. There are multiple serpiginous venous collaterals along the anterior rightchest wall suggestive of right axillary or subclavian stenosis. Lymph nodes: There are clustered lymph nodes in the left axilla howevernone are definitively pathologic based on size criteria. Multiple calcifiedsubcarinal and left hilar lymph nodes are secondary to old granulomatous disease. Borderline enlarged right hilar lymph nodes, prevascular and mediastinallymph nodes are unchanged from 2019. Mediastinum and martir: Normal. Abdomen/pelvis: Liver: Normal size and attenuation without lesions. Bile ducts: No intrahepatic dilatation is visualized. Common bile ductis dilated to 14 mm. No calcified stones within, and the duct tapersnormally within the head of the pancreas. Gallbladder: No calcified gallstones. Normal caliber wall. Pancreas: Normal morphology. No ductal dilatation. Spleen: Normal. Adrenals: Normal. Kidneys: 17 mm right upper pole simple cyst is present. No solid renallesions. No collecting system dilatation or calculi. Urinary Bladder: Mildly distended. No wall thickening or calculi. Vasculature: The thoracic and abdominal aorta are normal in caliberwithout stenosis or aneurysm. Minimal calcified atherosclerosis of the distalinfrarenal aorta. Great vessel origins are widely patent. Widely patent celiacaxis, superior and inferior mesenteric arteries. Dual left and single rightrenal artery are widely patent. Bilateral common, external and internal iliac and common femoral arteriesare widely patent. The visualized portions of the proximal superficial femoraland profunda femoral arteries are also widely patent. An IVC filter is tiltedto the right such that the apex lies adjacent to the right lateral caval wall;no change from prior. Lymph Nodes: Portacaval lymph node is enlarged to 17 mm short axis,however unchanged from 2019. Scattered small ita hepatis and retroperitoneallymph nodes are not pathologic based on size criteria, and are also stable. Bowel: No dilated small or large bowel loops or bowel wall thickening.There is moderate fecal loading of the colon throughout. Peritoneum and mesentery: No ascites, free air, or loculated fluidcollection. No mesenteric inflammation. Abdominal wall: Normal. Reproductive organs: Normal. Osseous structures: There are Schmorl's nodes extending through the T10and T11 superior endplates. Mild superior endplate T6 compression fracture isunchanged. There are no suspicious lytic or sclerotic osseous lesions. Within the intertrochanteric left femur, there is a ghost hole track from prior noelle.There is also a mixed ring and arc type calcification structure in the medullarycanal that is likely an enchondroma or bone infarct. IMPRESSION 1. There is evidence of old granulomatous disease manifested asmultiple bilateral calcified pulmonary granulomatous and calcified mediastinal andhilar lymph nodes. 2. 5 mm noncalcified right middle lobe nodule is unchanged over anearly two-year interval. Recommend 12 month follow-up CT to ensure stability. 3. Multifocal inflammatory changes in the lungs concerning for acutebronchitis and possible pneumonia. 4. Bullous emphysema. 5. Dilated common bile duct is of uncertain etiology and significance. Correlation with LFTs is recommended. Thank you for letting us participate in the care of this patient. If youare a health care provider and have any questions regarding this report,please contact the number below. For patients who have questions please contactthe health patient centered care specialist that requested your imaging first. Electronically signed by: America Martinez MD, [facility]([phone]), at 10/05/2020 11:08 AM Hetal Ojeda MD IMG OUTSIDE INTERPRE TATION ORDERABLES documented in this encounter Visit Diagnoses Diagnosis Lung nodule Solitary pulmonary nodule Lung nodule Solitary pulmonary nodule documented in this encounter Care Teams Manager User Experience Relationship Specialty Start Date End Date Travis Castaneda MD [address] [place] [address] PCP - General Internal Medicine 10/29/18 09/27/23 documented as of this encounter
--- OUTSIDE RECORDS SUMMARY | 2024-02-29 09:00 | XMS_ITS | Encounter Summary ---
Author Organization [facility]ly [facility] Address [facility] [place] [address] Care Team Providers Care Nuisance Animal Damage Control Agent Name Role Phone Travis Castaneda MD Primary Care Provider + [phone] Encounter Details Date Type Department Care Team (Late st Contact Info) Description 05/09/2022 1:30 PM EST Office Visit Pulmonology at [facility] [place] [id number] Hetal Ojeda MD [facility] [place] [address] COPD with exacerbation; Asthma-COPD overlap syndrome; Dependence on supplemental oxygen; [...] Sign Reading Time Taken Comments Blood Pressure 145/82 05/09/2022 1:41 PM EST MAP : 96 Pulse 68 05/09/2022 1:41 PM EST Temperature - - Respiratory Rate - - Oxygen Saturation 96% 05/09/2022 1:41 PM EST 4L Inhaled Oxygen Concentration - - Weight - - Height - - Body Mass Index - - documented in this encounter Patient Instructions * Patient Instructions* Hetal Ojeda MD - 05/09/2022 1:30 PM EST Start the prednisone again now. 40 mg daily x 7 days. Bring your inhalers to your next visit (anoro, flovent, albuterol and combivent.) Bring your oxygen to your next visit. Go to the ED if you feel you can't breath. documented in this encounter Progress Notes * Dawood Leyva RN - 05/09/2022 1:30 PM EST Patient arrived to clinic without oxygen, and had decreased oxygen saturation upon initial assessment. Patient was verbalizing his inability to breathe. When asked, he noted that he feels that there isn't enough air going into his airway versus congestion or obstruction of his airway. Coarse crackles heard on auscultation to posterior lung henriquez. Patient complained of posterior discomfort between shoulder blades, as well as anteriorly near his sternum. When asked on onset of symptoms. He notes that this was going on for a long time, too long, further noting that it had been going on for 2-3 weeks progressively worsening. Patient notes that he almost went to hospital a few times. Dr. Ojeda arrived to bed side to meet with patient and further assess. Addendum: Patient was transported to his ride share where his oxygen was kept by RN via wheelchair. Message sent to pulmonary secretaries to schedule 1 week follow up per Dr. Ojeda, as exit desk was not available at time of transportation. Patient stable. Requested call from patient for any needs. * Hetal Ojeda MD - 05/09/2022 1:30 PM EST Images from the original note were not included. [facility] Section of Pulmonary and Critical Care Medicine Outpatient Consultation Date of Encounter: 05/09/2022 Reason for Evaluation: Mr. Garret Barros returns to the pulmonary clinic for follow-up of COPD. I independently interviewed the patient, have examined the patient if this visit was conducted in the office and have reviewed available records. Dear Dr. Travis Castaneda MD, As you know, Garret Barros is a 46 y.o. male with history of severe asthma- COPD??overlap syndrome, oxygen dependency, prior pulmonary nodules,??ongoing??tobacco use, in the setting of anxiety, history of substance abuse in remission, who was last seen in pulmonary clinic Nov 2021. Saturation was 80% on room air when he walked in not on oxygen. reports ongoing dyspnea on exertion, again today tells me that things are worse than baseline, and thinks he has a new pneumonia because of increased dyspnea. He is not able to say what is increased this week relative to baseline other than dyspnea, but reports ongoing and unchanged cough, sputum production, diffuse chest discomfort. He notes he feels feverish intermittently, not able to specify when or how frequently. Denies hemoptysis. Reports chronic sinus congestion, not increased. He tells me he was hospitalized at [facility] sometime in the past three months, unclear when.Later told me it may have been before our last visit. Today he feels he needs to be in the hospital, but is not interested in going to the [place] [facility] [place] too [place] his [place]. He did not want to go to local ED prior to his visit either. He came to clinic by medicab today. He is asking for lorazepam to slow down my breathing, slow my body down. Unclear if this is chronically prescribed by other providers for him. Reports a lot of anxiety overall. Came without oxygen today, but tells me it's in the car again. Using 2-3 L NC O2 with activity at home, doesn't check sats at home. Reports he is using anoro ellipt and flovent, and albuterol and combivent. Thinks his last prednisone was 1-2 months ago, but unsure how much or how long or from what source. He says he is not smoking much now because he can't smoke, and that a pack lasts him a month withintermittent use. Has had covid19 vaccine primary series. Current Medications at Start of Encounter: Outpatient Medications Prior to Visit Medication Sig Dispense Refill ??? Anoro Ellipta 62.5-25 mcg/actuation Disk with Device Inhale 1 Inhalation into the lungs daily. ??? Flovent HFA 220 mcg/actuation HFA Aerosol Inhaler Inhale 2 puffs into the lungs 2 times daily. ??? ipratropium-albuterol (COMBIVENT RESPIMAT) 20-100 mcg/actuation Mist Inhale 1 puff into the lungs every 6 hours as needed for Wheezing. ??? albuterol 90 mcg/actuation HFA Aerosol Inhaler Inhale 2 puffs into the lungs every 6 hours as needed for Wheezing. Use with spacer ??? ipratropium-albuterol (DUONEB) 0.5 mg-3 mg(2.5 mg base)/3 mL Solution for Nebulization Take 0.5mg by nebulization every 6 hours. 1 Box 4 ??? azithromycin (Zithromax) 250 mg Tablet Day1:take 2 tablets daily, Day 2- 5:Take one tablet daily6 tablet 0 ??? lisinopriL (Prinivil;Zestril) 20 mg Tablet Take 20 mg by mouth daily. ??? codeine-guaiFENesin (guaiFENesin AC) 10-100 mg/5 mL Liquid Take 5 mLs by mouth 3 times daily asneeded for Cough. Do not take with ativan (Patient not taking: No sig reported) 120 mL 0 ??? methadone (Dolophine) 10 mg/mL Concentrate Take [...] Tablet Take 1.5 tablets by mouth nightly. (Patient taking differently: Take 400 mg by mouth nightly.) ??? busPIRone (BUSPAR) 15 mg Tablet Take 15 mg by mouth 3 times daily. ??? ibuprofen (ADVIL;MOTRIN) 600 mg Tablet Take 600 mg by mouth every 8 hours as needed for Pain. ??? calcium carbonate (TUMS) 200 mg calcium (500 mg) Tablet, Chewable Take 2 tablets by mouth 3 times daily as needed for Heartburn. ??? acetaminophen (TYLENOL) 500 mg Tablet Take 1 tablet by mouth every 6 hours as needed for Pain. 30 tablet 1 ??? pregabalin (LYRICA) 200 mg Capsule Take 1 capsule by mouth 3 times daily. (Patient taking differently: Take 200 mg by mouth 3 times daily (after meals).) 60 capsule 0 No facility-administered medications prior to visit. Review of Systems: A focused ROS was completed and was positive as noted in HPI and otherwise negative. Physical Examination: BP 145/82 (BP Location (NBP): Right arm, Patient Position: Sitting, BP Cuff Sizes: Large Adult (32-43 cm)) Comment: MAP: 96 Pulse 68 SpO2 96% Comment: 4L GEN: NAD, alert, interactive, conversational,, intermittently anxious-appearing HEENT: MMM, neck supple, no adenopathy or tenderness CV: RRR, normal S1, S2, no murmur PULM: normal work of breathing through most of his visit but had increased WOB on arrival, diffusely diminished breath sounds, no focal crackles or wheezing ABD: soft, ND MSK: no joint swelling, R leg amputation, left leg no edema not tender; he is ambulatory NEURO: AAO, voice is clear Pulmonary Function Test Results: Date FVC FEV1 Ratio TLC RV RV/TLC ERV DLCO 6MWT 02/13/2020 1.59 L (32% pred) 1.17 L (30% pred) 74 ?01/13/2021 ??2.21 L (44% pred) ??0.67 L (17% pred) ??30 ?*39% pred (doen't meet ATS criteria) ?? Jan 2020 Ambulatory O2 assessment: SpO2 was 85% at rest at beginning of ambulatory O2 assessment, and he required 3L O2 to maintain SpO2 > 88% with ambulation of 375 feet. PFT interpretation 01/13/2021: Very severe airflow obstruction, worsened compared with prior testingin 2019. DLCO testing does not meet ATS criteria but may be severely reduced. Labs, Microbiology and Imaging: I personally reviewed [...] emphysema, some evolved scarring from prior pneumonias Immunization History: Flu vaccine: COVID-19 vaccine: has received primary series Pneumovax: Prevnar-13: Impression and Recommendations: Garret Barros is a 46 y.o. man?? 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 Prior testinghas shown severe airflow obstruction with FEV1 as low as 17% predicted and very little respiratory reserve, which I think contributes to his frequent exacerbations. At this visit he initially presented with severe dyspnea and hypoxia after walking to clinic from the parking lot without any supplemental oxygen; once started on supplemental oxygen his saturation improved to 96% on 4L NC O2 and dyspnea improved with rest. This situation is similar to prior presentations with acute on chronic dyspnea and hypoxia when not using his home O2. Mr. Barros confirmed that he has access to home O2, and that it is in the car at time of this visit, and he states he usually uses it when active. I strongly encouraged him to use the supplemental NC O2, 2-3L baseline with activity. Symptoms are most suggestive of asthma/COPD exacerbation, with clear lungs. For subacute asthma/COPD exacerbation we discussed the option of seeking emergent evaluation in the ED for additional evaluation and treatment, vs option to treat with po prednisone; Mr. Barros declined to go to ED at [facility] from his visit but was willing to be treated with prednisone burst for acute exacerbation now. He is wi lling to consider going to his local ED if symptoms are worsening. I counseled him on the importance of tobacco cessation; he is considering quitting entirely, and may use nicotine replacement PRN. I think he could benefit a lot from pulmonary rehab. In the past he was open to this if near his house and we did refer for rehab. We have previously discussed the possibility of pursuing endobronchial valve placement for emphysema; if he is interested in this will need to participate in pulmonary rehab first. He remains on triple inhaled therapy with anoro and flovent, and supplemental oxygen with activity as noted above. He has variable response to prednisone so this has not been used chronically, and did not benefit from a trial of azithromycin in 2021. CT imaging August 2021 demonstrated one stable small (5 mm) pulmonary nodule, and some evolution of pulmonary scarring in areas of previous pneumonia, but no new acute process. He will qualify for lung cancer screening CTs when he turns 53. Summary Recommendations: - prednisone 40 mg daily x 7 days, prescribed - Continue current inhalers anoro ellipta daily, flovent 220 two puffs BID, combivent PRN, albuterol as needed --- I asked him to bring his home inhalers to his next visit to review - Continue supplemental oxygen use, 2 L at rest, 3 L with ambulation, encouraged to use consistently - complete and sustained tobacco cessation again strongly advised - Referral to pulmonary rehab previously placed; location/distance is an issue - repeat nathaly/DLCO/home O2 re-assessment with next visit Follow-up with in-office visit in 1 week Thank you for involving me in Mr. Barros's care. Please feel free to contact me with any further questions or concerns. I personally spent 30 minutes of this encounter with the patient discussing their pulmonary diseaseand treatment recommendations as outlined in my assessment and plan above. This visit involved a total of 40 minutes of clinical time on day of visit. Hetal Ojeda MD [facility] PULMONOLOGY AT [facility] [address] Dept: [phone] Loc: [phone] documented in this encounter Plan of Treatment Upcoming Encounters Date Type Department Care Team (Late st Contact Info) Description 03/18/2024 8:30 AM EST [place] [address] 03/18/2024 9:30 AM EST [place] [address] Hetal Ojeda MD [facility] [address] PULMONARY MEDICINE [place] [phone] Scheduled Orders Name Type Priority Associated Diagnoses Orde r Schedule Pulmonary Function Testing PFT Routine COPD with exacerbation Expected: 05/16/2022, Expires: 11/15/2022 documented as of this encounter Visit Diagnoses Diagnosis COPD with exacerbation Obstructive chronic bronchitis with exacerbation Asthma-COPD overlap syndrome Dependence on supplemental oxygen Cigarette nicotine dependence with other nicotine-induced disorder documented in this encounter Care Teams Nuisance Animal Damage Control Agent Relationship Specialty Start Date End Date Travis Castaneda MD [address] [place] [address] PCP - General Internal Medicine 10/29/18 09/27/23 documented as of this encounter
--- OUTSIDE RECORDS SUMMARY | 2024-02-29 09:00 | XMS_ITS | Encounter Summary ---
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 contact the health healthcare translator that requested your imaging first. Abdomen & Pelvis w Contrast (Exam End: 05/27/2022 1:57 PM) Impression 1. No evidence of bowel obstruction. Fecalization of the terminal ileum can be seen with slow motility. 2. Chronic scarring and emphysematous change in the partially imaged lower chest. I have personally reviewed the image(s) and the resident's interpretation and agree with the findings, José Miguel Tamayo MD at 05/27/2022 4:25 PM Thank you for letting us participate in the care of this patient. If you are a health care provider and have any questions regarding this report, please contact the number below. For patients who have questions please contact the health healthcare translator that requested your imaging first. Electronically signed by: José Miguel Tamayo MD, [facility] ([phone]), at 05/27/2022 4:25 PM XR Abdomen Flat & Upright (Exam End: 06/01/2022 11:38 AM) Impression Nonobstructive bowel gas pattern with moderate to large colonic fecal burden. Thank you for letting us participate in the care of this patient. If you are a health care provider and have any questions regarding this report, please contact the number below. For patients who have questions please contact the health healthcare translator that requested your imaging first. Electronically signed by: CARLOS ALBERTO CARLSON MD, [facility] ([phone]), at 06/01/2022 1:38 PM Assessment: ??is a 46 y.o.??male??w/ PMH of COPD (GOLD stage D), anxiety, substance use disorder in remission, seizure disorder, and HTN??admitted with COPD exacerbation. ??Patients respiratory status improved after treatment with nebs and steroids. Patient complained of no BM for several weeks. Receiving aggressive regimen for opioid induced constipation #Opioid induced constipation - s/p Golytely -Continue with Methylnaltrexone -On Pericolace, Lactulose, daily enemas -CT scan done earlier during the hospitalization and KUB are reassuring -One more Golytely prep today along with other bowel meds -Change enemas to Tap water enema -He needs ongoing therapy for Opioid induced constipation. - #Acute on chronic hypoxic respiratory failure #COPD (GOLD stage D) #Acute respiratory acidosis - s/p azithromycin 500 mg IV - s/p prednisone 60 mg PO - completed azithormycin 250 mg qd for 4 days - completed prednisone 60 mg PO for 4 days - Duonebs q4H PRN - PRN albuterol nebs - titrate O2 for sat 88-93% - spiriva + striverdi #Peripheral neuropathy - home duloxetine 60 mg BID - home pregabalin 200 mg TID after meals ?? #Substance use disorder, in remission - home methadone 132 mg qd ?? #Anxiety #Insomnia - home buspirone 15 mg TID - home quetiapine 300 mg QHS - home lorazepam 1 mg BID PRN ?? #Hypertension - Home lisinopril 20 mg qd -Blood pressure elevated likely due to patients agitation and anxiety. ?? #Seizure disorder - home zonisamide 200 mg qd ?? #Tobacco??use disorder - Nicotine patch 14mcg qd ?? #Routine DVT PPx: LMWH GI PPx: ?? Diet: Regular diet Lines: None?? Code status: Attempt Cardiopulmonary Resuscitation - Inpatient Team Pager(MD Coverage 21/11): #[phone] PCP: Travis Castaneda MD [phone] Patient is medically ready for discharge but he appealed the decision. Ming Rice MD 06/01/2022 * Celine Peterson RN - 06/01/2022 1:26 PM EST Patient given and explained the reason for the Detailed Notice of Discharge and patient refused to sign. Copy of form given to patient and scanned into the chart. * Kailey Ames - 06/01/2022 9:10 AM ESTSummary: Transportation Request Referral for Non-Emergent Medical Transportation (NEMT) received from Celine AGUDELO on 06/01/2022 ?? Is the patient listed having [place] or [place] ?? If yes, is the patient's Medicaid currently active? Yes ?? [place] Medicaid recipients only - ?? Did the patient arrive by ambulance/[place]S or [place] Medicaid-assisted transportation? [place]- Emergent from appt. ?? If no, is the patient able to use the [employer] bus service to a destination surrounding , if applicable? N/A ?? If no, does the patient have family or friends that can pick them up at discharge? N/A ?? If no, does the patient have any money either on hand, available at home and/or through a creditcard? N/A ?? If no, is the patient able to reimburse for OCM???s payment for transport, if granted? N/A ?? If no, contact local non-emergent transportation brokers for a quote from to destination and request payment authorization from CM-Managers. Transport initiated/not confirmed: Spoke with Elizabeth from [facility] who initiated a ride with their scheduling department/dispatch. * Rae Marte RN - 05/31/2022 6:03 PM EST approx 0720- received report on patient, patient came out of room, asked patient if he had needs, patient states I just need to walk off these cramps, began to ambulate around unit. Shortly after, DIANE Canchola came to this rn and asked if patient had permission to go through linen cart. Approached patient and educated on storage/linen storage/kitchen usage restricted to staff and linens would be provided upon patient request. patint verbalized understanding and went back into assigned room with linens already retrieved. approx 0740, morning round performed with patient while patient in room awake, patient states whattime are my meds due? I think they're due now and I need them now. educated patient on medication schedule and administration window. Patient states, I know that you can give them to me now. reinformed patient of administration window and inability to access medication or computer access to giveearly, also educated that rn required to follow md order. Patient then states bring them to me right at 8 then. Informed patient that an attempt for meds to be brought in as soon as possible will be made, but will have to be after 0800 d/t medication administration window. Patient interrupted this rn and states ok right at 8, right at 8, see you then. approx 0755 went into patient's room during md round. Patient requested iv toradol and to dc oxy prn. See orders. approx 0805 went into patient's room for medication administration. Reviewed medications with patient, patient verbalized understanding of all medication education. Patient asked about pain medication stating I need that toradol as soon as possible, the doctor prescribed it and I need it. retrieved medication to administer in conjunction with am meds for cluster care. When educating/applying nicotine patch, asked patient if previous patch still on. Patient states no it fell off because they didn't tape it. assessed patient to find nicotine patch, nicotine patch not present on patient. Applied nicotine patch to upper right arm/back of shoulder area. Patient requested nicotine patch to be taped down. Applied securement tape over patch, labeled with medication name, date, time and this rn initials. When administering iv toradol, patient states please don't dilute the medication with that stuff (pointed to saline flush informed patient that medication was not diluted, but drawn into syringe with only that medication present, and educated patient that saline flushing required prior to drug admin to ensure patency of line, and after drug admin to ensure full administration and ensure that nomedication left in J-loop extension of iv site. Patient verbalized understanding. After medication administration, patient asked about pain medication schedule/frequency. Updated patient's white board to show next available dosage for toradol set to be at approx 1400. Patient states ok so 1:00 got it educated patient on administration window difference between scheduled medicat ions and prn medications. Patient states I know you can give it to me at 1 so i'll get it at one reinformed patient that this is against medication administration order protocols, patient interrupted nurse and stated, they always do my pain meds this way, I want it when its due stated to patient that medication due at approx 1400 with approx 10-15 minute prior admin window. Patient stated i'll get it at 1:45 then informed patient to call at 1:45 so that medications could be brought withinadmin window. Patient nodded to show understanding. Patient then stated what about my anxiety meds? I need those exactly when they're due, when are they due? informed patient that next scheduled medication at noon and informed patient of medication name/education. Patient states no, my lorazepam, bring me that with the taniya informed patient that clarification of order would be made with md to approve giving medication within that time frame. Patient states they always give my medicationsthat way, that's when I need it, and when I need it I got to have it informed patient a second time that order clarification would be made to ensure rn not practicing outside of scope. Patient stated whatever just figure it out so I can get my meds because i'm having freaking panic attacks and anxiety constantly, this place is always messing with my meds. Made contact with md care team, received phone call from md that ok to give with taniya. Asked if additional anxiety medications would be added for afternoon to balance administration in case patient's anxiety occurs. md stated that no additional anxiety medications to be added to regimen. In between safety rounds performed with patient, patient frequently exited room to make contact with this rn and other care team staff to request contact with this rn to discuss medications. Conversations regarding pain medication timing and re-education performed. Patient informed to use call light for needs by other nursing staff. approx 1100, this rn went into patient's room to review medications with patient and administer noon meds within admin window along with prn ativan per approval from md. Informed patient of attempt for additional anxiety medication since patient taking medications early. Patient stated it's okay Ionly need it now, I probably won't need it later. After administering medications, patient asked ab out pain medications again. Stated to patient that board is updated to medication administration times, patient states oh okay so you can't give it to me early anymore? stated to patient that comment to be given medication early was not made, and reinforced prn pain mgmt admin window education. Patient verbalized understanding. Patient then stated I wish I could get my lorazepam iv like I did before when I had my seizure, it worked a lot better. At approx 12:08, patient called me into his room, and stated they're kicking me out of here he also said i'm about to have a seizure because i'm so upset asked patient to explain what occurred, patient stated I just talked to that girl doctor, the skinny one in the sweater and she said i'm being kicked out of here because they're not doing anything for me. asked patient if he could recall physicians name so that contact could be made by this rn to md to request more information regarding dc plans. Patient states I don't know, she was skinny and a girl, that bitch is kicking me out. Patient then states those pricks are going to make me have a seizure, i'll have a seizure and i'm going to have to stay if I have a seizure, I won't go home. informed patient that contact would be made with md team to clarify plans. Patient then states who's behind all this? Do you know something I don't? informed patient that this rn would need to contact physicians to acquire information, but that this rn was not withholding information from patient. Patient then states I know, I trust you. You're about the only one I trust, but I don't trust any of these other cocksuckers that work here Left patient's room to avoid provoking further aggression/name calling, safety measures intact. Informed auditor in charge joycelyn of interaction with patient, made contact with md treatment team of patient to ask about discharge plans. Spoke to patient with auditor in charge joycelyn hirsch assessed discharge needs for patient/barriers to discharge. No medical dc barriers were identified, however patient stated he could not go home d/t bad living situation. Also relayed to md tx team of patient becoming agitated/upset by recent dc news and requested team to speak with patient again to address concerns and request to not dc d/t living situation. Patient seen by md team to discuss discharge plans, patient stated that preparations to household would need to be done prior to him discharging home, and stated that discharge could not be today d/tunavailability of a person to prepare his residence. Arrangements that were previously made for patient to be dc'd home with rct, cancelled. See orders for iv removal, iv removed by family therapist team after this rn explained order placed and need forremoval/education. this rn present during entire removal. During iv removal, patient states who's idea was this? They're doing this on purpose to get me to go home and kick me out. These pricks are going to hear from my hereditary cancer program coordinator, i'm being treated like a dogbecause they want me to leave did not acknowledge name calling to patient in order to avoid further provocation. After iv removed, administered patient's next dose of lyrica. Patient states i'm going to need something for pain now then. Tell them to restart my oxy and give me something else for anxiety. i'm about to have a panic attack, my anxiety is so high right now, this is ridiculous informed patient that contact would be made with md team to ask about pain mgmt without iv access and additional anxiety medication dosing. See orders and admin details on emar. Safety of patient maintained throughout shift. Education provided to patient throughout shift regarding md orders and legality regarding rn to follow md orders for patient. 1825- notified md of patient's elevated bp. See orders for medication and parameters. * Christina Pack - 05/31/2022 2:26 PM ESTSummary: [facility] transportation detail for 05 31 22 ON 05 31 22 @ 4:45 pm Endy DAHL will be at [address] to corn picker patient and bring him to his home address * Js Bedolla MD - 05/31/2022 2:12 PM EST [facility] Medicine Progress Note Patient Name: Garret Barros Date of Admission: 05/23/2022 ( Hospital Day 8 days ) Service: Medicine Red Team - Pager [phone] ID: Garret Barros is a 46 y.o. male w/ PMH of COPD (GOLD stage D), anxiety, substance use disorder in remission, seizure disorder, and HTN admitted for acute on chronic hypoxic respiratory failure. Interval Events: - Second dose of methylnaltrexone - Small BM overnight, still reporting abdominal pain/distention - No acute events overnight - Reporting burning lower back pain w/ urination - Afebrile, HDS, respiratory status stable on home meds Physical Exam: Last value Range last 24 hrs Temperature Temp: 37.2 ??C (99 ??F) Temp: [36.7 ??C (98.1 ??F)-37.4 ??C (99.3 ??F)] Heart Rate Heart Rate: 74 Heart Rate: [62-74] Blood Pressure BP: (!) 150/97 BP: (150-171)/(85-114) Respiratory Rate Resp: 17 Resp: [17] SpO2 SpO2: 91 % SpO2: [89 %-92 %] Const: Uncomfortable appearing, NAD HEENT: MMM, no JVD, no LAD, PERRL, EOMI CV: RRR, no m/r/g Pulm: Scattered wheezes normal WOB on 2L NC Abd: firm without guarding moderately distended. Non tender to palpation. Ext: S/p R BKA. WWP, no LE edema, peripheral pulses intact Neuro: AOx4, remainder grossly intact Psych: Normal mood and affect Skin: Well demarcated circumferential erythematous reticular rash on R LE around region of prosthetic sleeve Ins/Outs: Intake/Output Summary (Last 24 hours) at 05/31/2022 1412 Last data filed at 05/31/2022 1120 Gross per 24 hour Intake 750 ml Output -- Net 750 ml No data found. Labs: No results for input(s): WBC, HGB, HCT, PLATELET in the last 168 hours. Recent Labs 05/31/22 0539 05/30/22 0522 05/29/22 0543 NA 139 140 140 K 4.3 4.3 4.3 CL 101 102 104 CO2 28 28 27 BUN 21* 21* 21* CREATININE 0.77* 0.82 0.80 No results for input(s): AST, ALT, ALKPHOS, BILITOT, BILIDIR in the last 168 hours. Recent Labs 05/31/22 0539 05/30/22 0522 05/29/22 0543 CALCIUM 8.9 8.9 8.6 No results for input(s): INR, PT, PTT in the last 168 hours. No results for input(s): CK, TROPONINT in the last 168 hours. Latest Reference Range & Units 05/26/22 09:40 Color UA Yellow Yellow Appearance UA Clear Clear Spec [place] UA 1.005 - 1.030 1.015 pH UA 5.0 - 8.0 5.5 Protein UA Negative mg/dL Negative Glucose UA Negative mg/dL Negative Ketones UA Negative mg/dL Negative Bilirubin UA Negative mg/dL Negative Urobilinogen UA Normal mg/dL Normal Blood UA Negative mg/dL Negative Leukocytes UA Negative mcL Negative Nitrite UA Negative Negative Culture Reflexed No Scheduled Medications: ??? DULoxetine DR 60 mg Oral Daily ??? lactulose 20 g Oral BID ??? methadone 130 mg Oral Q24H ??? lisinopriL 40 mg Oral Daily ??? olodateroL 2 puff Inhalation Daily ??? tiotropium bromide 2 puff Inhalation Daily ??? mometasone 220 mcg Inhalation Nightly ??? pregabalin 200 mg Oral TID ??? busPIRone 15 mg Oral TID ??? QUEtiapine 300 mg Oral Nightly ??? zonisamide 200 mg Oral Daily ??? sodium chloride 0.9 % (flush) 5 mL Intravenous BID ??? senna-docusate 2 tablet Oral BID ??? enoxaparin 40 mg Subcutaneous Nightly ??? nicotine 1 patch Transdermal Daily And ??? Patch Verification 1 patch Transdermal BID PRN Medications: ketorolac, sodium phosphates, simethicone, ipratropium-albuteroL, hydrOXYzine, prochlorperazine, triamcinolone, LORazepam, sodium chloride 0.9 % (flush), lidocaine, acetaminophen, melatonin Antibiotics: Agent Start Date End Date azithromycin 05/24 Imaging/Studies: Results for orders placed or performed during the hospital encounter of 05/23/22 XR Chest One View (Exam End: 05/23/2022 12:08 PM) Impression No acute cardiopulmonary process identified. Thank you for letting us participate in the care of this patient. If you are a health care provider and have any questions regarding this report, please contact the number below. For patients who have questions please contact the health healthcare translator that requested your imaging first. Abdomen Flat & Upright (Exam End: 05/26/2022 3:12 PM) Impression Prominent air-filled loops of colon as well as air-fluid levels in the LEFT descending colon. Mid abdominal dilated air-filled small bowel loops concerning for partial small bowel obstruction. There is a paucity of distal stool and gas present. Consider CT abdomen pelvis for further evaluation. Thank you for letting us participate in the care of this patient. If you are a health care provider and have any questions regarding this report, please contact the number below. For patients who have questions please contact the health healthcare translator that requested your imaging first. Abdomen & Pelvis w Contrast (Exam End: 05/27/2022 1:57 PM) Impression 1. No evidence of bowel obstruction. Fecalization of the terminal ileum can be seen with slow motility. 2. Chronic scarring and emphysematous change in the partially imaged lower chest. I have personally reviewed the image(s) and the resident's interpretation and agree with the findings, José Miguel Tamayo MD at 05/27/2022 4:25 PM Thank you for letting us participate in the care of this patient. If you are a health care provider and have any questions regarding this report, please contact the number below. For patients who have questions please contact the health healthcare translator that requested your imaging first. Electronically signed by: José Miguel Tamayo MD, [facility] ([phone]), at 05/27/2022 4:25 PM Assessment & Plan: Garret Barros is a 46 y.o. male w/ PMH of COPD (GOLD stage D), anxiety, substance use disorder in remission, seizure disorder, and HTN on HD# 0 for acute on chronic hypoxic respiratory failure. ?? His presentation is most consistent with a COPD exacerbation given increased O2 requirements, new productive cough, wheezing, and mild respiratory acidosis in the context of low supply of inhalers athome. Pending RVP, but no other obvious inciting factors. He does not have signs or symptoms of pneumonia, CHF, or PE. Will treat with steroids and azithromycin and support him symptomatically with duonebs. ?? 05/31: Respiratory status stable. Having small BMs, still w/ some abdominal pain and distention. Normal UA this morning. Medically ready for discharge. #Opioid induced constipation - S/p bowel prep - Methylnaltrexone - No evidence of obstruction on CT #Acute on chronic hypoxic respiratory failure #COPD (GOLD stage D) #Acute respiratory acidosis - s/p azithromycin 500 mg IV - s/p prednisone 60 mg PO - completed azithormycin 250 mg qd for 4 days - completed prednisone 60 mg PO for 4 days - Duonebs q4H PRN - PRN albuterol nebs - titrate O2 for sat 88-93% - spiriva + striverdi - Daily CBC, BMP - f/u RVP #Peripheral neuropathy - home duloxetine 60 mg BID - home pregabalin 200 mg TID after meals ?? #Substance use disorder, in remission - home methadone 132 mg qd - Call [facility] programs in [facility] tomorrow AM to confirm dose ?? #Anxiety #Insomnia - home buspirone 15 mg TID - home quetiapine 300 mg QHS - home lorazepam 1 mg BID PRN ?? #Hypertension - Home lisinopril 20 mg qd ?? #Seizure disorder - home zonisamide 200 mg qd ?? #Tobacco use disorder - Nicotine patch 14mcg qd #Routine DVT PPx: LMWH GI PPx: Diet: Regular diet Lines: Peripheral IV Line - Single Lumen 05/23/22 1045 basilic vein (medial side of arm), right 20 gauge (Active) Number of days: 8 Code status: Attempt Cardiopulmonary Resuscitation - Inpatient Js Bedolla MD Internal Medicine PGY-1 Medicine Red Team Associated attestation - Ming Rice MD - 06/01/2022 6:00 AM EST Please see Js Bedolla MD's note for details of the patient history of presentation and data. I have discussed, reviewed and agree with the documented History, Physical findings, Assessment and Plan of care. Patient continues to be hemodynamically stable. Discussed with patient about possibility of continuing with bowel regimen at home as he is stable and had bM recently and had CT scan done which is reassuring. Patient is reported to be aggressive and disruptive to nursing staff. Patient to continue to receive aggressive bowel regimen. Possible discharge in the morning. I have examined the patient myself and personally reviewed all studies. In addition, I certify thatI am a [facility] credentialed attending provider with admitting privileges and that the patient meets or has met medical necessity to require an inpatient IPI level of care meeting a minimum of two midnights or is on the [facility] inpatient only procedure list (status C) due to: constipation with use of opioids. * Eriberto James, RN - 05/30/2022 6:00 PM EST OUTCOME EVALUATION NOTE: OUTCOME SUMMARY: Pt A&Ox4, 2L NC. States 10/10 pain to back and headache. PRN Tylenol, oxycodone given. IV toradol, given, reports some relief. Request to speak to MD regarding pain control and requesting COVID test. MD aware. VSS afebrile. Bed in low position. Call light within reach. PLAN MOVING FORWARD: VSq6h Monitor BP Pain management D/c planning INDIVIDUALIZED FALL PREVENTION INTERVENTIONS: Patient-specific fall risk factors per assessment: [current deficits]: ROSS sandoval, hospital environment Assistance [level of assistance required for transfers and ambulation]: Independent Supervision [direct monitoring required during toileting and ADLs]: Independent Surveillance [continuous indirect monitoring]: Room near unit station, alarms active and audible. Safety round/check completed. Patient-specific fall prevention interventions for sensory deficits provided, if applicable: [X] N/A CARE PLAN GOAL OUTCOME EVALUATION: * Travis King RN - 05/30/2022 7:46 AM EST s OUTCOME EVALUATION NOTE: OUTCOME SUMMARY: VSS, states SOB that was well managed with prn nebulizer treatment , states 10 out of 10 pain that was mildly managed with prn oxycodone and tylenol, ambulates independently with prosetic to RLE BKA,on 2L NC home setting. Lung diminish with expiatory wheezing, heart regular, bowel sounds normative. Pt had1 small Brown BM during shift. Pt shows signs of drug seeking behavior as well as stating symptoms with out any physcal signs of said symptoms. Bed in lowest position. PLAN MOVING FORWARD: D'c planning Monitor Respiratory Monitor BM Pain control INDIVIDUALIZED FALL PREVENTION INTERVENTIONS: Patient-specific fall risk factors per assessment: [current deficits]: Hospital environment Assistance [level of assistance required for transfers and ambulation]: Independent Supervision [direct monitoring required during toileting and ADLs]: None Surveillance [continuous indirect monitoring]: Purposeful roundingLori, room near nursing station. Patient-specific fall prevention interventions for sensory deficits provided, if applicable: [X] No CPG GOAL OUTCOME EVALUATION: * Js Bedolla MD - 05/30/2022 6:53 AM EST Hospital Medicine Progress Note Patient Name: Garret Barros Date of Admission: 05/23/2022 ( Hospital Day 7 days ) Service: Medicine Red Team - Pager [phone] ID: Garret Barros is a 46 y.o. male w/ PMH of COPD (GOLD stage D), anxiety, substance use disorder in remission, seizure disorder, and HTN admitted for acute on chronic hypoxic respiratory failure. Interval Events: - Small BM overnight, still reporting abdominal pain/distention - No acute events overnight - Second dose of methylnaltrexone this morning - Feels that hospital methadone is not working and is stale - Afebrile, HDS, respiratory status stable on home meds Physical Exam: Last value Range last 24 hrs Temperature Temp: 37.5 ??C (99.5 ??F) Temp: [36.6 ??C (97.9 ??F)-37.5 ??C (99.5 ??F)] Heart Rate Heart Rate: 74 Heart Rate: [74] Blood Pressure BP: 158/86 BP: (126-198)/(72-97) Respiratory Rate Resp: 18 Resp: [18-22] SpO2 SpO2: (!) 88 % SpO2: [88 %-91 %] Const: Uncomfortable appearing, NAD HEENT: MMM, no JVD, no LAD, PERRL, EOMI CV: RRR, no m/r/g Pulm: Scattered wheezes normal WOB on 2L NC Abd: firm without guarding moderately distended. Non tender to palpation. Ext: S/p R BKA. WWP, no LE edema, peripheral pulses intact Neuro: AOx4, remainder grossly intact Psych: Normal mood and affect Skin: Well demarcated circumferential erythematous reticular rash on R LE around region of prosthetic sleeve Ins/Outs: Intake/Output Summary (Last 24 hours) at 05/30/2022 0856 Last data filed at 05/30/2022 0400 Gross per 24 hour Intake 500 ml Output 1525 ml Net -1025 ml Patient Vitals for the past 168 hrs: Weight 05/23/22 1636 83.5 kg (184 lb) Labs: Recent Labs 05/23/22 1200 WBC 10.7* HGB 17.1* HCT 51.7* PLATELET 177 Recent Labs 05/30/22 0522 05/29/22 0543 05/28/22 0407 NA 140 140 138 K 4.3 4.3 3.9 CL 102 104 102 CO2 24 BUN 21* 21* 21* CREATININE 0.82 0.80 0.69* Recent Labs 05/23/22 1200 AST 13 ALT 16 ALKPHOS 61 BILITOT 0.3 BILIDIR 0.1 Recent Labs 05/30/22 0522 05/29/22 0543 05/28/22 0407 05/25/22 0553 05/23/22 1200 CALCIUM 8.9 8.6 9.0 < > 9.0 MAGNESIUM -- -- -- -- 1.05 < > = values in this interval not displayed. No results for input(s): INR, PT, PTT in the last 168 hours. No results for input(s): CK, TROPONINT in the last 168 hours. Latest Reference Range & Units 05/26/22 09:40 Color UA Yellow Yellow Appearance UA Clear Clear Spec [place] UA 1.005 - 1.030 1.015 pH UA 5.0 - 8.0 5.5 Protein UA Negative mg/dL Negative Glucose UA Negative mg/dL Negative Ketones UA Negative mg/dL Negative Bilirubin UA Negative mg/dL Negative Urobilinogen UA Normal mg/dL Normal Blood UA Negative mg/dL Negative Leukocytes UA Negative mcL Negative Nitrite UA Negative Negative Culture Reflexed No Scheduled Medications: ??? methadone 130 mg Oral Q24H ??? lisinopriL 40 mg Oral Daily ??? olodateroL 2 puff Inhalation Daily ??? tiotropium bromide 2 puff Inhalation Daily ??? mometasone 220 mcg Inhalation Nightly ??? pregabalin 200 mg Oral TID ??? lidocaine 1 patch Transdermal Q24H ??? busPIRone 15 mg Oral TID ??? DULoxetine DR 60 mg Oral BID ??? QUEtiapine 300 mg Oral Nightly ??? zonisamide 200 mg Oral Daily ??? sodium chloride 0.9 % (flush) 5 mL Intravenous BID ??? senna-docusate 2 tablet Oral BID ??? enoxaparin 40 mg Subcutaneous Nightly ??? nicotine 1 patch Transdermal Daily And ??? Patch Verification 1 patch Transdermal BID PRN Medications: simethicone, ipratropium-albuteroL, hydrOXYzine, prochlorperazine, triamcinolone, lidocaine ANDlidocaine, oxyCODONE, LORazepam, sodium chloride 0.9 % (flush), lidocaine, acetaminophen, melatonin Antibiotics: Agent Start Date End Date azithromycin 05/24 Imaging/Studies: Results for orders placed or performed during the hospital encounter of 05/23/22 XR Chest One View (Exam End: 05/23/2022 12:08 PM) Impression No acute cardiopulmonary process identified. Thank you for letting us participate in the care of this patient. If you are a health care provider and have any questions regarding this report, please contact the number below. For patients who have questions please contact the health healthcare translator that requested your imaging first. Abdomen Flat & Upright (Exam End: 05/26/2022 3:12 PM) Impression Prominent air-filled loops of colon as well as air-fluid levels in the LEFT descending colon. Mid abdominal dilated air-filled small bowel loops concerning for partial small bowel obstruction. There is a paucity of distal stool and gas present. Consider CT abdomen pelvis for further evaluation. Thank you for letting us participate in the care of this patient. If you are a health care provider and have any questions regarding this report, please contact the number below. For patients who have questions please contact the health healthcare translator that requested your imaging first. Abdomen & Pelvis w Contrast (Exam End: 05/27/2022 1:57 PM) Impression 1. No evidence of bowel obstruction. Fecalization of the terminal ileum can be seen with slow motility. 2. Chronic scarring and emphysematous change in the partially imaged lower chest. I have personally reviewed the image(s) and the resident's interpretation and agree with the findings, José Miguel Tamayo MD at 05/27/2022 4:25 PM Thank you for letting us participate in the care of this patient. If you are a health care provider and have any questions regarding this report, please contact the number below. For patients who have questions please contact the health healthcare translator that requested your imaging first. Electronically signed by: José Miguel Tamayo MD, [facility] ([phone]), at 05/27/2022 4:25 PM Assessment & Plan: Garret Barros is a 46 y.o. male w/ PMH of COPD (GOLD stage D), anxiety, substance use disorder in remission, seizure disorder, and HTN on HD# 0 for acute on chronic hypoxic respiratory failure. ?? His presentation is most consistent with a COPD exacerbation given increased O2 requirements, new productive cough, wheezing, and mild respiratory acidosis in the context of low supply of inhalers athome. Pending RVP, but no other obvious inciting factors. He does not have signs or symptoms of pneumonia, CHF, or PE. Will treat with steroids and azithromycin and support him symptomatically with duonebs. ?? 05/30: Respiratory status stable. Is having small BMs. Second dose of methylnaltrexone today. Still having abdominal pain. Can likely be discharged this afternoon w/ outpt bowel reg since he does not have SBO and he is having BMs. #Opioid induced constipation - S/p bowel prep - Methylnaltrexone - No evidence of obstruction on CT #Acute on chronic hypoxic respiratory failure #COPD (GOLD stage D) #Acute respiratory acidosis - s/p azithromycin 500 mg IV - s/p prednisone 60 mg PO - completed azithormycin 250 mg qd for 4 days - completed prednisone 60 mg PO for 4 days - Duonebs q4H PRN - PRN albuterol nebs - titrate O2 for sat 88-93% - spiriva + striverdi - Daily CBC, BMP - f/u RVP #Peripheral neuropathy - home duloxetine 60 mg BID - home pregabalin 200 mg TID after meals ?? #Substance use disorder, in remission - home methadone 132 mg qd - Call [facility] programs in [facility] tomorrow AM to confirm dose ?? #Anxiety #Insomnia - home buspirone 15 mg TID - home quetiapine 300 mg QHS - home lorazepam 1 mg BID PRN ?? #Hypertension - Home lisinopril 20 mg qd ?? #Seizure disorder - home zonisamide 200 mg qd ?? #Tobacco use disorder - Nicotine patch 14mcg qd #Routine DVT PPx: LMWH GI PPx: Diet: Regular diet Lines: Peripheral IV Line - Single Lumen 05/23/22 1045 basilic vein (medial side of arm), right 20 gauge (Active) Number of days: 6 Code status: Attempt Cardiopulmonary Resuscitation - Inpatient Js Bedolla MD Internal Medicine PGY-1 Medicine Red Team Associated attestation - Ming Rice MD - 06/01/2022 5:56 AM EST Attending Attestation and Certification Please see Js Bedolla MD's note for details of the patient history of presentation and data. I have discussed, reviewed and agree with the documented History, Physical findings, Assessment and Plan of care. Patient states he didn't have bowel movements though documented to have small bowel movements on 05/29. He is tolerating diet with out any problems. No nausea or vomiting reported. Patient also states he is passing flatus. Requested for COVID testing though he didn't have any symptoms. He finished golytely. Abdominal exam is benign with good bowel sounds and no guarding or rigidity. I have examined the patient myself and personally reviewed all studies. In addition, I certify thatI am a D-H credentialed attending provider with admitting privileges and that the patient meets or has met medical necessity to require an inpatient IPI level of care meeting a minimum of two midnights or is on the [facility] inpatient only procedure list (status C) due to: constipation with use of opioids. * Vivek Bedolla MD - 05/29/2022 7:44 AM EST Hospital Medicine Progress Note Patient Name: Garret Barros Date of Admission: 05/23/2022 ( Hospital Day 6 days ) Service: Medicine Red Team - Pager [phone] ID: Garret Barros is a 46 y.o. male w/ PMH of COPD (GOLD stage D), anxiety, substance use disorder in remission, seizure disorder, and HTN admitted for acute on chronic hypoxic respiratory failure. Interval Events: - CT abdomen yesterday reassuring against SBO but did show large stool burden. Started methylnaltrexone yesterday - Feels breathing is modestly improved on home meds - Still reporting poorly localized back and flank pain partially relieved by oxycodone - two episodes of watery small volume BMs with no relief in abdominal bloating/pain. Continuing to drink golytely, hopeful for improvement in his symptoms with further BMs - Afebrile, HDS Physical Exam: Last value Range last 24 hrs Temperature Temp: 36.7 ??C (98.1 ??F) Temp: [36.5 ??C (97.7 ??F)-36.9 ??C (98.4 ??F)] Heart Rate Heart Rate: 63 Heart Rate: [63-73] Blood Pressure BP: 141/81 BP: (135-141)/(81-88) Respiratory Rate Resp: 18 Resp: [18-20] SpO2 SpO2: 94 % SpO2: [92 %-94 %] Const: Uncomfortable appearing, NAD HEENT: MMM, no JVD, no LAD, PERRL, EOMI CV: RRR, no m/r/g Pulm: Scattered wheezes normal WOB on 2L NC Abd: firm without guarding moderately distended. Non tender to palpation. Ext: S/p R BKA. WWP, no LE edema, peripheral pulses intact Neuro: AOx4, remainder grossly intact Psych: Normal mood and affect Skin: Well demarcated circumferential erythematous reticular rash on R LE around region of prosthetic sleeve Ins/Outs: Intake/Output Summary (Last 24 hours) at 05/29/2022 0744 Last data filed at 05/29/2022 0400 Gross per 24 hour Intake 2220 ml Output 1700 ml Net 520 ml Patient Vitals for the past 168 hrs: Weight 05/23/22 1636 83.5 kg (184 lb) Labs: Recent Labs 05/23/22 1200 WBC 10.7* HGB 17.1* HCT 51.7* PLATELET 177 Recent Labs 05/29/22 0543 05/28/22 0407 05/27/22 0555 NA 140 138 139 K 4.3 3.9 3.9 CL 104 102 103 CO2 27 24 25 BUN 21* 21* 16 CREATININE 0.80 0.69* 0.69* Recent Labs 05/23/22 1200 AST 13 ALT 16 ALKPHOS 61 BILITOT 0.3 BILIDIR 0.1 Recent Labs 05/29/22 0543 05/28/22 0407 05/27/22 0555 05/25/22 0553 05/23/22 1200 CALCIUM 8.6 9.0 8.7 < > 9.0 MAGNESIUM -- -- -- -- 1.05 < > = values in this interval not displayed. No results for input(s): INR, PT, PTT in the last 168 hours. No results for input(s): CK, TROPONINT in the last 168 hours. Latest Reference Range & Units 05/26/22 09:40 Color UA Yellow Yellow Appearance UA Clear Clear Spec [place] UA 1.005 - 1.030 1.015 pH UA 5.0 - 8.0 5.5 Protein UA Negative mg/dL Negative Glucose UA Negative mg/dL Negative Ketones UA Negative mg/dL Negative Bilirubin UA Negative mg/dL Negative Urobilinogen UA Normal mg/dL Normal Blood UA Negative mg/dL Negative Leukocytes UA Negative mcL Negative Nitrite UA Negative Negative Culture Reflexed No Scheduled Medications: ??? lisinopriL 40 mg Oral Daily ??? olodateroL 2 puff Inhalation Daily ??? tiotropium bromide 2 puff Inhalation Daily ??? methylnaltrexone 12 mg Subcutaneous Every Other Day ??? methadone (Methadose) oral liquid 132 mg Oral Daily ??? mometasone 220 mcg Inhalation Nightly ??? pregabalin 200 mg Oral TID ??? lidocaine 1 patch Transdermal Q24H ??? busPIRone 15 mg Oral TID ??? DULoxetine DR 60 mg Oral BID ??? QUEtiapine 300 mg Oral Nightly ??? zonisamide 200 mg Oral Daily ??? sodium chloride 0.9 % (flush) 5 mL Intravenous BID ??? senna-docusate 2 tablet Oral BID ??? enoxaparin 40 mg Subcutaneous Nightly ??? nicotine 1 patch Transdermal Daily And ??? Patch Verification 1 patch Transdermal BID PRN Medications: simethicone, ipratropium-albuteroL, hydrOXYzine, prochlorperazine, triamcinolone, ketorolac, lidocaine AND lidocaine, oxyCODONE, LORazepam, sodium chloride 0.9 % (flush), lidocaine, acetaminophen, melatonin Antibiotics: Agent Start Date End Date azithromycin 05/24 Imaging/Studies: Results for orders placed or performed during the hospital encounter of 05/23/22 XR Chest One View (Exam End: 05/23/2022 12:08 PM) Impression No acute cardiopulmonary process identified. Thank you for letting us participate in the care of this patient. If you are a health care provider and have any questions regarding this report, please contact the number below. For patients who have questions please contact the health healthcare translator that requested your imaging first. Abdomen Flat & Upright (Exam End: 05/26/2022 3:12 PM) Impression Prominent air-filled loops of colon as well as air-fluid levels in the LEFT descending colon. Mid abdominal dilated air-filled small bowel loops concerning for partial small bowel obstruction. There is a paucity of distal stool and gas present. Consider CT abdomen pelvis for further evaluation. Thank you for letting us participate in the care of this patient. If you are a health care provider and have any questions regarding this report, please contact the number below. For patients who have questions please contact the health healthcare translator that requested your imaging first. Abdomen & Pelvis w Contrast (Exam End: 05/27/2022 1:57 PM) Impression 1. No evidence of bowel obstruction. Fecalization of the terminal ileum can be seen with slow motility. 2. Chronic scarring and emphysematous change in the partially imaged lower chest. I have personally reviewed the image(s) and the resident's interpretation and agree with the findings, José Miguel Tamayo MD at 05/27/2022 4:25 PM Thank you for letting us participate in the care of this patient. If you are a health care provider and have any questions regarding this report, please contact the number below. For patients who have questions please contact the health healthcare translator that requested your imaging first. Electronically signed by: José Miguel Tamayo MD, [facility] ([phone]), at 05/27/2022 4:25 PM Assessment & Plan: Garret Barros is a 46 y.o. male w/ PMH of COPD (GOLD stage D), anxiety, substance use disorder in remission, seizure disorder, and HTN on HD# 0 for acute on chronic hypoxic respiratory failure. ?? His presentation is most consistent with a COPD exacerbation given increased O2 requirements, new productive cough, wheezing, and mild respiratory acidosis in the context of low supply of inhalers athome. Pending RVP, but no other obvious inciting factors. He does not have signs or symptoms of pneumonia, CHF, or PE. Will treat with steroids and azithromycin and support him symptomatically with duonebs. ?? 05/29: Respiratory status stable. Main issue at this point is severe constipation but no concern forSBO. Since starting methylnaltrexone Garret has had two small watery BMs without improvement in hissymptoms. He still has a large stool burden that will hopefully improve with continued golytely nowthat methylnaltrexone has been administered. Continuing other home medications for now. Otherwise he is very stable. If he has further BMs with improvement in his symptoms will be ready for dischargelater today or tomorrow. #Opioid induced constipation - S/p bowel prep - Methylnaltrexone - No evidence of obstruction on CT #Acute on chronic hypoxic respiratory failure #COPD (GOLD stage D) #Acute respiratory acidosis - s/p azithromycin 500 mg IV - s/p prednisone 60 mg PO - completed azithormycin 250 mg qd for 4 days - completed prednisone 60 mg PO for 4 days - Duonebs q4H PRN - PRN albuterol nebs - titrate O2 for sat 88-93% - spiriva + striverdi - Daily CBC, BMP - f/u RVP #Peripheral neuropathy - home duloxetine 60 mg BID - home pregabalin 200 mg TID after meals ?? #Substance use disorder, in remission - home methadone 132 mg qd - Call [facility] programs in [facility] tomorrow AM to confirm dose ?? #Anxiety #Insomnia - home buspirone 15 mg TID - home quetiapine 300 mg QHS - home lorazepam 1 mg BID PRN ?? #Hypertension - Home lisinopril 20 mg qd ?? #Seizure disorder - home zonisamide 200 mg qd ?? #Tobacco use disorder - Nicotine patch 14mcg qd #Routine DVT PPx: LMWH GI PPx: Diet: Regular diet Lines: Peripheral IV Line - Single Lumen 05/23/22 1045 basilic vein (medial side of arm), right 20 gauge (Active) Number of days: 5 Code status: Attempt Cardiopulmonary Resuscitation - Inpatient Vivek Bedolla MD Internal Medicine PGY-2 Medicine Red Team Associated attestation - Vern Lopez MD - 05/29/2022 2:17 PM EST Attestation: Attending Attestation Please see Dr. Bedolla's note for details of the patient history of presentation and data. I have examined the patient myself and personally reviewed all studies. I have discussed, reviewed and agreewith the documented history, physical findings, assessment and plan of care with any additions and/or corrections noted below. 2 small water BMs. Having severe cramps and abd pain. Reports feeling like he is withdrawing from his methadone and asking for pill version rather than liquid. Reassured him that it's the same drug. Could try splitting oral dose but will also explore pill form if possible since this is what he prefers. Once having regular BMs will need regular standing regimen of laxatives to prevent similar occurrence. In addition, I certify that I am a D-H credentialed attending provider with admitting privileges and that the patient meets or has met medical necessity to require an inpatient IPI level of care meeting a minimum of two midnights or is on the [facility] inpatient only procedure list (status C) due to : constipation requiring methylnaltrexone and pain medication. Vern Lopez MD pager [phone] 05/29/2022 2:15 PM * Travis King RN - 05/29/2022 7:18 AM EST OUTCOME EVALUATION NOTE: OUTCOME SUMMARY: VSS, denies SOB, states 10 out of 10 pain that was mildly managed with prn oxycodone and tylenol, ambulates independently with prosetic to RLE BKA, on 2L NC home setting. Lung diminish with expiatorywheezing, heart regular, bowel sounds normative. Pt had 2 loose Brown BMs during shift. Bed in lowest position. PLAN MOVING FORWARD: D'c planning Monitor Respiratory Monitor BM Pain control INDIVIDUALIZED FALL PREVENTION INTERVENTIONS: Patient-specific fall risk factors per assessment: [current deficits]: Hospital environment Assistance [level of assistance required for transfers and ambulation]: Independent Supervision [direct monitoring required during toileting and ADLs]: None Surveillance [continuous indirect monitoring]: Purposeful rounding, Masimo, room near nursing station. Patient-specific fall prevention interventions for sensory deficits provided, if applicable: [X] No CPG GOAL OUTCOME EVALUATION: * Js Bedolla MD - 05/28/2022 6:48 AM EST Hospital Medicine Progress Note Patient Name: Garret Barros Date of Admission: 05/23/2022 ( Hospital Day 5 days ) Service: Medicine Red Team - Pager [phone] ID: Garret Barros is a 46 y.o. male w/ PMH of COPD (GOLD stage D), anxiety, substance use disorder in remission, seizure disorder, and HTN admitted for acute on chronic hypoxic respiratory failure. Interval Events: - CT abdomen yesterday reassuring against SBO but did show large stool burden. Starting methylnaltrexone today - Feels breathing is modestly improved on home meds - Still reporting poorly localized back and flank pain partially relieved by oxycodone - Completed golytely yesterday - Afebrile, HTN but HDS Physical Exam: Last value Range last 24 hrs Temperature Temp: 37 ??C (98.6 ??F) Temp: [36.6 ??C (97.9 ??F)-37.2 ??C (99 ??F)] Heart Rate Heart Rate: 69 Heart Rate: -- Blood Pressure BP: (!) 158/110 BP: (151-195)/(93-110) Respiratory Rate Resp: 20 Resp: [18-20] SpO2 SpO2: 90 % SpO2: [88 %-93 %] Const: Uncomfortable appearing, NAD HEENT: MMM, no JVD, no LAD, PERRL, EOMI CV: RRR, no m/r/g Pulm: Scattered wheezes b/l improved from prior exams, normal WOB Abd: Soft, NTND Ext: S/p R BKA. WWP, no LE edema, peripheral pulses intact Neuro: AOx4, remainder grossly intact Psych: Normal mood and affect Skin: Well demarcated circumferential erythematous reticular rash on R LE around region of prosthetic sleeve Ins/Outs: Intake/Output Summary (Last 24 hours) at 05/28/2022 0648 Last data filed at 05/28/2022 0400 Gross per 24 hour Intake 2080 ml Output 3100 ml Net -1020 ml Patient Vitals for the past 168 hrs: Weight 05/23/22 1636 83.5 kg (184 lb) Labs: Recent Labs 05/23/22 1200 WBC 10.7* HGB 17.1* HCT 51.7* PLATELET 177 Recent Labs 05/28/22 0407 05/27/22 0555 05/26/22 0637 NA 138 139 137 K 3.9 3.9 4.5 CL 102 103 103 CO2 24 25 24 BUN 21* 16 14 CREATININE 0.69* 0.69* 0.65* Recent Labs 05/23/22 1200 AST 13 ALT 16 ALKPHOS 61 BILITOT 0.3 BILIDIR 0.1 Recent Labs 05/28/22 0407 05/27/22 0555 05/26/22 0637 05/25/22 0553 05/23/22 1200 CALCIUM 9.0 8.7 8.6 < > 9.0 MAGNESIUM -- -- -- -- 1.05 < > = values in this interval not displayed. No results for input(s): INR, PT, PTT in the last 168 hours. No results for input(s): CK, TROPONINT in the last 168 hours. Latest Reference Range & Units 05/26/22 09:40 Color UA Yellow Yellow Appearance UA Clear Clear Spec [place] UA 1.005 - 1.030 1.015 pH UA 5.0 - 8.0 5.5 Protein UA Negative mg/dL Negative Glucose UA Negative mg/dL Negative Ketones UA Negative mg/dL Negative Bilirubin UA Negative mg/dL Negative Urobilinogen UA Normal mg/dL Normal Blood UA Negative mg/dL Negative Leukocytes UA Negative mcL Negative Nitrite UA Negative Negative Culture Reflexed No Scheduled Medications: ??? olodateroL 2 puff Inhalation Daily ??? tiotropium bromide 2 puff Inhalation Daily ??? methylnaltrexone 12 mg Subcutaneous Every Other Day ??? methadone (Methadose) oral liquid 132 mg Oral Daily ??? mometasone 220 mcg Inhalation Nightly ??? pregabalin 200 mg Oral TID ??? lidocaine 1 patch Transdermal Q24H ??? busPIRone 15 mg Oral TID ??? DULoxetine DR 60 mg Oral BID ??? lisinopriL 20 mg Oral Daily ??? QUEtiapine 300 mg Oral Nightly ??? zonisamide 200 mg Oral Daily ??? sodium chloride 0.9 % (flush) 5 mL Intravenous BID ??? senna-docusate 2 tablet Oral BID ??? enoxaparin 40 mg Subcutaneous Nightly ??? nicotine 1 patch Transdermal Daily And ??? Patch Verification 1 patch Transdermal BID PRN Medications: ipratropium-albuteroL, hydrOXYzine, prochlorperazine, triamcinolone, ketorolac, lidocaine AND lidocaine, oxyCODONE, LORazepam, sodium chloride 0.9 % (flush), lidocaine, acetaminophen, melatonin Antibiotics: Agent Start Date End Date 05/24 Imaging/Studies: Results for orders placed or performed during the hospital encounter of 05/23/22 XR Chest One View (Exam End: 05/23/2022 12:08 PM) Impression No acute cardiopulmonary process identified. Thank you for letting us participate in the care of this patient. If you are a health care provider and have any questions regarding this report, please contact the number below. For patients who have questions please contact the health healthcare translator that requested your imaging first. Abdomen Flat & Upright (Exam End: 05/26/2022 3:12 PM) Impression Prominent air-filled loops of colon as well as air-fluid levels in the LEFT descending colon. Mid abdominal dilated air-filled small bowel loops concerning for partial small bowel obstruction. There is a paucity of distal stool and gas present. Consider CT abdomen pelvis for further evaluation. Thank you for letting us participate in the care of this patient. If you are a health care provider and have any questions regarding this report, please contact the number below. For patients who have questions please contact the health healthcare translator that requested your imaging first. Abdomen & Pelvis w Contrast (Exam End: 05/27/2022 1:57 PM) Impression 1. No evidence of bowel obstruction. Fecalization of the terminal ileum can be seen with slow motility. 2. Chronic scarring and emphysematous change in the partially imaged lower chest. I have personally reviewed the image(s) and the resident's interpretation and agree with the findings, José Miguel Tamayo MD at 05/27/2022 4:25 PM Thank you for letting us participate in the care of this patient. If you are a health care provider and have any questions regarding this report, please contact the number below. For patients who have questions please contact the health healthcare translator that requested your imaging first. Electronically signed by: José Miguel Tamayo MD, [facility] ([phone]), at 05/27/2022 4:25 PM Assessment & Plan: Garret Barros is a 46 y.o. male w/ PMH of COPD (GOLD stage D), anxiety, substance use disorder in remission, seizure disorder, and HTN on HD# 0 for acute on chronic hypoxic respiratory failure. ?? His presentation is most consistent with a COPD exacerbation given increased O2 requirements, new productive cough, wheezing, and mild respiratory acidosis in the context of low supply of inhalers athome. Pending RVP, but no other obvious inciting factors. He does not have signs or symptoms of pneumonia, CHF, or PE. Will treat with steroids and azithromycin and support him symptomatically with duonebs. ?? 05/28: Respiratory status improved today. Main issue at this point is severe constipation but no concern for SBO. Will start methylnaltrexone today for opioid induced constipation. Continuing other home medications for now. Otherwise he is very stable. If he has a BM will be ready for discharge later today or tomorrow. #Acute on chronic hypoxic respiratory failure #COPD (GOLD stage D) #Acute respiratory acidosis - s/p azithromycin 500 mg IV - s/p prednisone 60 mg PO - completed azithormycin 250 mg qd for 4 days - completed prednisone 60 mg PO for 4 days - Duonebs q4H PRN - PRN albuterol nebs - titrate O2 for sat 88-93% - spiriva + striverdi - Daily CBC, BMP - f/u RVP ?? #Opioid induced constipation - S/p bowel prep - Methylnaltrexone - No evidence of obstruction on CT #Peripheral neuropathy - home duloxetine 60 mg BID - home pregabalin 200 mg TID after meals ?? #Substance use disorder, in remission - home methadone 132 mg qd - Call [facility] programs in [facility] tomorrow AM to confirm dose ?? #Anxiety #Insomnia - home buspirone 15 mg TID - home quetiapine 300 mg QHS - home lorazepam 1 mg BID PRN ?? #Hypertension - Home lisinopril 20 mg qd ?? #Seizure disorder - home zonisamide 200 mg qd ?? #Tobacco use disorder - Nicotine patch 14mcg qd #Routine DVT PPx: LMWH GI PPx: Diet: Regular diet Lines: Peripheral IV Line - Single Lumen 05/23/22 1045 basilic vein (medial side of arm), right 20 gauge (Active) Number of days: 4 Code status: Attempt Cardiopulmonary Resuscitation - Inpatient Js Bedolla MD Internal Medicine PGY-1 Medicine Red Team Associated attestation - Vern Lopez MD - 05/28/2022 4:11 PM EST Attestation: Attending Attestation Please see Dr. Bedolla's note for details of the patient history of presentation and data. I have examined the patient myself and personally reviewed all studies. I have discussed, reviewed and agree with the documented history, physical findings, assessment and plan of care with any additions and/or corrections noted below. No bowel movement for several weeks per patient. Drank a gallon of Golytely and still no BM. CT abdshowing large stool burden. Plan to administer methylnaltrexone and monitor. Will need better bowelregimen to prevent recurrent obstructions. In addition, I certify that I am a [facility] credentialed attending provider with admitting privileges and that the patient meets or has met medical necessity to require an inpatient IPI level of care meeting a minimum of two midnights or is on the CMS inpatient only procedure list (status C) due to : constipation requiring methylnaltrexone. Vern Lopez MD pager [phone] 05/28/2022 4:05 PM * Js Bedolla MD - 05/27/2022 12:37 PM EST Hospital Medicine Progress Note Patient Name: Garret Barros Date of Admission: 05/23/2022 ( Hospital Day 4 days ) Service: Medicine Red Team - Pager [phone] ID: Garret Barros is a 46 y.o. male w/ PMH of COPD (GOLD stage D), anxiety, substance use disorder in remission, seizure disorder, and HTN admitted for acute on chronic hypoxic respiratory failure. Interval Events: - KUB concerning for partial SBO, declined CT last night but agreeable this AM, on the schedule - Still has not had BM but is passing gas. Also reports and episode of emesis overnight but was notdocumented by nursing overnight. Still drinking golytely - Says he feels breathing is still bad but has good O2 sats on home 2L - Back pain and flank pain persistent - Afebrile, HDS Physical Exam: Last value Range last 24 hrs Temperature Temp: 37.2 ??C (99 ??F) Temp: [36.2 ??C (97.2 ??F)-37.2 ??C (99 ??F)] Heart Rate Heart Rate: 69 Heart Rate: -- Blood Pressure BP: (!) 186/93 BP: (151-195)/(93-107) Respiratory Rate Resp: 18 Resp: [18-20] SpO2 SpO2: 90 % SpO2: [90 %-93 %] Const: Uncomfortable appearing, NAD HEENT: MMM, no JVD, no LAD, PERRL, EOMI CV: RRR, no m/r/g Pulm: Scattered wheezes b/l, normal WOB Abd: Soft, NTND Ext: S/p R BKA. WWP, no LE edema, peripheral pulses intact Neuro: AOx4, remainder grossly intact Psych: Normal mood and affect Skin: Well demarcated circumferential erythematous reticular rash on R LE around region of prosthetic sleeve Ins/Outs: Intake/Output Summary (Last 24 hours) at 05/27/2022 1239 Last data filed at 05/27/2022 1231 Gross per 24 hour Intake 2220 ml Output 2200 ml Net 20 ml Patient Vitals for the past 168 hrs: Weight 05/23/22 1636 83.5 kg (184 lb) Labs: Recent Labs 05/23/22 1200 WBC 10.7* HGB 17.1* HCT 51.7* PLATELET 177 Recent Labs 05/27/22 0555 05/26/22 0637 05/25/22 0553 NA 139 137 140 K 3.9 4.5 4.0 CL 103 103 103 CO2 25 24 28 BUN 16 14 16 CREATININE 0.69* 0.65* 0.77* Recent Labs 05/23/22 1200 AST 13 ALT 16 ALKPHOS 61 BILITOT 0.3 BILIDIR 0.1 Recent Labs 05/27/22 0555 05/26/22 0637 05/25/22 0553 05/23/22 1200 CALCIUM 8.7 8.6 9.1 9.0 MAGNESIUM -- -- -- 1.05 No results for input(s): INR, PT, PTT in the last 168 hours. No results for input(s): CK, TROPONINT in the last 168 hours. Latest Reference Range & Units 05/26/22 09:40 Color UA Yellow Yellow Appearance UA Clear Clear Spec [place] UA 1.005 - 1.030 1.015 pH UA 5.0 - 8.0 5.5 Protein UA Negative mg/dL Negative Glucose UA Negative mg/dL Negative Ketones UA Negative mg/dL Negative Bilirubin UA Negative mg/dL Negative Urobilinogen UA Normal mg/dL Normal Blood UA Negative mg/dL Negative Leukocytes UA Negative mcL Negative Nitrite UA Negative Negative Culture Reflexed No Scheduled Medications: ??? olodateroL 2 puff Inhalation Daily ??? tiotropium bromide 2 puff Inhalation Daily ??? iohexoL (Omnipaque) radiology oral prep (50 mL of oral contrast) 240 mL Oral Once Followed by ??? iohexoL (Omnipaque) radiology oral prep (50 mL of oral contrast) 240 mL Oral Once ??? methadone (Methadose) oral liquid 132 mg Oral Daily ??? mometasone 220 mcg Inhalation Nightly ??? pregabalin 200 mg Oral TID ??? lidocaine 1 patch Transdermal Q24H ??? busPIRone 15 mg Oral TID ??? DULoxetine DR 60 mg Oral BID ??? lisinopriL 20 mg Oral Daily ??? QUEtiapine 300 mg Oral Nightly ??? zonisamide 200 mg Oral Daily ??? sodium chloride 0.9 % (flush) 5 mL Intravenous BID ??? senna-docusate 2 tablet Oral BID ??? enoxaparin 40 mg Subcutaneous Nightly ??? nicotine 1 patch Transdermal Daily And ??? Patch Verification 1 patch Transdermal BID PRN Medications: ipratropium-albuteroL, hydrOXYzine, iohexoL, LORazepam, prochlorperazine, triamcinolone, bisacodyL,ketorolac, lidocaine AND lidocaine, oxyCODONE, LORazepam, sodium chloride 0.9 % (flush), lidocaine, acetaminophen, melatonin Antibiotics: Agent Start Date End Date azithromycin 05/24 Imaging/Studies: Results for orders placed or performed during the hospital encounter of 05/23/22 XR Chest One View (Exam End: 05/23/2022 12:08 PM) Impression No acute cardiopulmonary process identified. Thank you for letting us participate in the care of this patient. If you are a health care provider and have any questions regarding this report, please contact the number below. For patients who have questions please contact the health healthcare translator that requested your imaging first. Abdomen Flat & Upright (Exam End: 05/26/2022 3:12 PM) Impression Prominent air-filled loops of colon as well as air-fluid levels in the LEFT descending colon. Mid abdominal dilated air-filled small bowel loops concerning for partial small bowel obstruction. There is a paucity of distal stool and gas present. Consider CT abdomen pelvis for further evaluation. Thank you for letting us participate in the care of this patient. If you are a health care provider and have any questions regarding this report, please contact the number below. For patients who have questions please contact the health healthcare translator that requested your imaging first. Assessment & Plan: Garret Barros is a 46 y.o. male w/ PMH of COPD (GOLD stage D), anxiety, substance use disorder in remission, seizure disorder, and HTN on HD# 0 for acute on chronic hypoxic respiratory failure. ?? His presentation is most consistent with a COPD exacerbation given increased O2 requirements, new productive cough, wheezing, and mild respiratory acidosis in the context of low supply of inhalers athome. Pending RVP, but no other obvious inciting factors. He does not have signs or symptoms of pneumonia, CHF, or PE. Will treat with steroids and azithromycin and support him symptomatically with duonebs. ?? 05/27: Done w/ zithro and pred for COPD exacerbation. Concern for partial SBO, will r/o w/ CT abdomen today. His breathing has improved so changed duonebs to PRN and started olodaterol and tiotropium as home regimen. Continues to have severe anxiety associated w/ his pain and medical conditions. Hasresponded well to atarax when necessary, has home ativan PRNs. #Acute on chronic hypoxic respiratory failure #COPD (GOLD stage D) #Acute respiratory acidosis - s/p azithromycin 500 mg IV - s/p prednisone 60 mg PO - completed azithormycin 250 mg qd for 4 days - completed prednisone 60 mg PO for 4 days - Duonebs q4H PRN - PRN albuterol nebs - titrate O2 for sat 88-93% - spiriva + striverdi - Daily CBC, BMP - f/u RVP ?? #Peripheral neuropathy - home duloxetine 60 mg BID - home pregabalin 200 mg TID after meals ?? #Substance use disorder, in remission - home methadone 132 mg qd - Call [facility] programs in [facility] tomorrow AM to confirm dose ?? #Anxiety #Insomnia - home buspirone 15 mg TID - home quetiapine 300 mg QHS - home lorazepam 1 mg BID PRN ?? #Hypertension - Home lisinopril 20 mg qd ?? #Seizure disorder - home zonisamide 200 mg qd ?? #Tobacco use disorder - Nicotine patch 14mcg qd #Routine DVT PPx: LMWH GI PPx: Diet: Regular diet Lines: Peripheral IV Line - Single Lumen 05/23/22 1045 basilic vein (medial side of arm), right 20 gauge (Active) Number of days: 4 Code status: Attempt Cardiopulmonary Resuscitation - Inpatient sJ Bedolla MD Internal Medicine PGY-1 Medicine Red Team Associated attestation - Lamberto Clark MD - 05/27/2022 1:22 PM EST Attending Attestation and Certification Please see Js Bedolla MD's note for details of the patient [...] to respond immediately to the patient's need, and assessment for SBO Tolerating PO intake and passing flatus though reports unwitnessed emesis of medications this morning. CT abdomen pending to further evaluate for SBO. Stable from respiratory standpoint to transitionto home regimen. Lamberto Clark MD Hospital Medicine 05/27/2022 * Js Bedolla MD - 05/26/2022 8:53 AM EST Hospital Medicine Progress Note Patient Name: Garret Barros Date of Admission: 05/23/2022 ( Hospital Day 3 days ) Service: Medicine Red Team - Pager [phone] ID: Garret Barros is a 46 y.o. male w/ PMH of COPD (GOLD stage D), anxiety, substance use disorder in remission, seizure disorder, and HTN admitted for acute on chronic hypoxic respiratory failure. Interval Events: - Reporting new b/l flank pain and urinary hesitancy, denies dysuria, urinary frequency. UA and bladder scan ordered. - Still reporting back pain as well, moderately well controlled w/ oxycodone - Nausea seems to have resolved w/ compazine but still says he has not had a BM in 4 weeks. Drank 1/2 of Analiza jug. - Says breathing is still bad but SpO2 at goal on home 2LNC - Afebrile, HDS, sat goal of 88 Physical Exam: Last value Range last 24 hrs Temperature Temp: 36.5 ??C (97.7 ??F) Temp: [35.3 ??C (95.6 ??F)-36.5 ??C (97.7 ??F)] Heart Rate Heart Rate: 69 Heart Rate: -- Blood Pressure BP: (!) 148/93 BP: (148-168)/(91-94) Respiratory Rate Resp: 18 Resp: [18] SpO2 SpO2: 97 % (on neb therapy) SpO2: [86 %-97 %] Const: Uncomfortable appearing, NAD HEENT: MMM, no JVD, no LAD, PERRL, EOMI CV: RRR, no m/r/g Pulm: Scattered wheezes b/l, normal WOB Abd: Soft, NTND Ext: S/p R BKA. WWP, no LE edema, peripheral pulses intact Neuro: AOx4, remainder grossly intact Psych: Normal mood and affect Skin: Well demarcated circumferential erythematous reticular rash on R LE around region of prosthetic sleeve Ins/Outs: Intake/Output Summary (Last 24 hours) at 05/26/2022 1023 Last data filed at 05/26/2022 0800 Gross per 24 hour Intake 1290 ml Output 2250 ml Net -960 ml Patient Vitals for the past 168 hrs: Weight 05/23/22 1636 83.5 kg (184 lb) Labs: Recent Labs 05/23/22 1200 WBC 10.7* HGB 17.1* HCT 51.7* PLATELET 177 Recent Labs 05/26/22 0637 05/25/22 0553 05/23/22 1200 NA 137 140 142 K 4.5 4.0 3.8 CL 103 103 102 CO2 24 28 32* BUN 14 16 12 CREATININE 0.65* 0.77* 0.73* Recent Labs 05/23/22 1200 AST 13 ALT 16 ALKPHOS 61 BILITOT 0.3 BILIDIR 0.1 Recent Labs 05/26/22 0637 05/25/22 0553 05/23/22 1200 CALCIUM 8.6 9.1 9.0 MAGNESIUM -- -- 1.05 No results for input(s): INR, PT, PTT in the last 168 hours. No results for input(s): CK, TROPONINT in the last 168 hours. Latest Reference Range & Units 05/26/22 09:40 Color UA Yellow Yellow Appearance UA Clear Clear Spec [place] UA 1.005 - 1.030 1.015 pH UA 5.0 - 8.0 5.5 Protein UA Negative mg/dL Negative Glucose UA Negative mg/dL Negative Ketones UA Negative mg/dL Negative Bilirubin UA Negative mg/dL Negative Urobilinogen UA Normal mg/dL Normal Blood UA Negative mg/dL Negative Leukocytes UA Negative mcL Negative Nitrite UA Negative Negative Culture Reflexed No Scheduled Medications: ??? methadone (Methadose) oral liquid 132 mg Oral Daily ??? tiotropium bromide 2 puff Inhalation Daily ??? mometasone 220 mcg Inhalation Nightly ??? pregabalin 200 mg Oral TID ??? lidocaine 1 patch Transdermal Q24H ??? busPIRone 15 mg Oral TID ??? DULoxetine DR 60 mg Oral BID ??? lisinopriL 20 mg Oral Daily ??? QUEtiapine 300 mg Oral Nightly ??? zonisamide 200 mg Oral Daily ??? sodium chloride 0.9 % (flush) 5 mL Intravenous BID ??? senna-docusate 2 tablet Oral BID ??? enoxaparin 40 mg Subcutaneous Nightly ??? predniSONE 60 mg Oral Daily ??? azithromycin 250 mg Oral Daily ??? nicotine 1 patch Transdermal Daily And ??? Patch Verification 1 patch Transdermal BID PRN Medications: ipratropium-albuteroL, prochlorperazine, triamcinolone, bisacodyL, ketorolac, lidocaine AND lidocaine, oxyCODONE, LORazepam, sodium chloride 0.9 % (flush), lidocaine, acetaminophen, melatonin Antibiotics: Agent Start Date End Date 05/24 Imaging/Studies: Results for orders placed or performed during the hospital encounter of 05/23/22 XR Chest One View (Exam End: 05/23/2022 12:08 PM) Impression No acute cardiopulmonary process identified. Thank you for letting us participate in the care of this patient. If you are a health care provider and have any questions regarding this report, please contact the number below. For patients who have questions please contact the health healthcare translator that requested your imaging first. Assessment & Plan: Garret Barros is a 46 y.o. male w/ PMH of COPD (GOLD stage D), anxiety, substance use disorder in remission, seizure disorder, and HTN on HD# 0 for acute on chronic hypoxic respiratory failure. ?? His presentation is most consistent with a COPD exacerbation given increased O2 requirements, new productive cough, wheezing, and mild respiratory acidosis in the context of low supply of inhalers athome. Pending RVP, but no other obvious inciting factors. He does not have signs or symptoms of pneumonia, CHF, or PE. Will treat with steroids and azithromycin and support him symptomatically with duonebs. ?? 05/26: Continuing azithromycin and prednisone. Continues to have non-specific symptoms such as back and flank pain without clearly identifiable causes. His UA is wnl this morning. Continuing to treat pain w/ oxycodone which helps. Still very concerned about his lack of BM and is drinking most of golZeccoly jug. He is medically ready for discharge at this time since he is stable on home O2. #Acute on chronic hypoxic respiratory failure #COPD (GOLD stage D) #Acute respiratory acidosis - s/p azithromycin 500 mg IV - s/p prednisone 60 mg PO - continue azithormycin 250 mg qd for 4 days - continue prednisone 60 mg PO for 4 days - Duonebs q6H scheduled - PRN albuterol nebs - titrate O2 for sat 88-93% - hold home inhalers (not on formulary) - Daily CBC, BMP - f/u RVP ?? #Peripheral neuropathy - home duloxetine 60 mg BID - home pregabalin 200 mg TID after meals ?? #Substance use disorder, in remission - home methadone 132 mg qd - Call [employer] programs in [facility] tomorrow AM to confirm dose ?? #Anxiety #Insomnia - home buspirone 15 mg TID - home quetiapine 300 mg QHS - home lorazepam 1 mg BID PRN ?? #Hypertension - Home lisinopril 20 mg qd ?? #Seizure disorder - home zonisamide 200 mg qd ?? #Tobacco use disorder - Nicotine patch 14mcg qd #Routine DVT PPx: LMWH GI PPx: Diet: Regular diet Lines: Peripheral IV Line - Single Lumen 05/23/22 1045 basilic vein (medial side of arm), right 20 gauge (Active) Number of days: 2 Code status: Attempt Cardiopulmonary Resuscitation - Inpatient Js Bedolla MD Internal Medicine PGY-1 Medicine Red Team Associated attestation - Lamberto Clark MD - 05/26/2022 4:04 PM EST Attending Attestation Please see Dr. Bedolla's note for details of the patient history [...] of two midnights or is on the [facility] inpatient only procedure list (status C) due to: acute respiratory compromise and/or hypoxia requiring assessment every 4 hours and the ability to respond immediately to the patient's need Improved to baseline O2, still diffuse wheezing but better overall. Continuing scheduled nebs, pred, azithro. New reported flank pain, minimal success with BMs though he reports passing flatus and nursing notes he has reported small amounts of stool with bathroom trips - eval with CHINO Flores. MD [facility] Medicine 05/26/2022 * Ugo Beavers, RN - 05/25/2022 10:15 AM EST Provider notified of pt nausea via text page. Awaiting orders. * Js Bedolla MD - 05/25/2022 6:54 AM EST Hospital Medicine Progress Note Patient Name: Garret Barros Date of Admission: 05/23/2022 ( Hospital Day 2 days ) Service: Medicine Red Team - Pager [phone] ID: Garret Barros is a 46 y.o. male w/ PMH of COPD (GOLD stage D), anxiety, substance use disorder in remission, seizure disorder, and HTN admitted for acute on chronic hypoxic respiratory failure. Interval Events: - Back pain slightly more under control after starting oxycodone - Still very anxious despite home ativan - Now complaining of nausea. Also says he has not had a BM in 4 weeks but RNs documented BM while here. He is requesting additional miralax to help with this. - States that his shortness of breath is unchanged - Afebrile, HDS, sat goal of 88 Physical Exam: Last value Range last 24 hrs Temperature Temp: 36.7 ??C (98.1 ??F) Temp: [36.2 ??C (97.2 ??F)-37.3 ??C (99.1 ??F)] Heart Rate Heart Rate: 69 Heart Rate: [69] Blood Pressure BP: 114/68 BP: (108-165)/(66-96) Respiratory Rate Resp: 16 Resp: [10-20] SpO2 SpO2: 90 % SpO2: [84 %-93 %] Const: Uncomfortable appearing, NAD HEENT: MMM, no JVD, no LAD, PERRL, EOMI CV: RRR, no m/r/g Pulm: Scattered wheezes b/l, normal WOB Abd: Soft, NTND Ext: S/p R BKA. WWP, no LE edema, peripheral pulses intact Neuro: AOx4, remainder grossly intact Psych: Normal mood and affect Skin: Well demarcated circumferential erythematous reticular rash on R LE around region of prosthetic sleeve Ins/Outs: Intake/Output Summary (Last 24 hours) at 05/25/2022 1245 Last data filed at 05/25/2022 1153 Gross per 24 hour Intake 420 ml Output 2175 ml Net -1755 ml Patient Vitals for the past 168 hrs: Weight 05/23/22 1636 83.5 kg (184 lb) Labs: Recent Labs 05/23/22 1200 WBC 10.7* HGB 17.1* HCT 51.7* PLATELET 177 Recent Labs 05/25/22 0553 05/23/22 1200 NA 140 142 K 4.0 3.8 CL 103 102 CO2 28 32* BUN 16 12 CREATININE 0.77* 0.73* Recent Labs 05/23/22 1200 AST 13 ALT 16 ALKPHOS 61 BILITOT 0.3 BILIDIR 0.1 Recent Labs 05/25/22 0553 05/23/22 1200 CALCIUM 9.1 9.0 MAGNESIUM -- 1.05 No results for input(s): INR, PT, PTT in the last 168 hours. No results for input(s): CK, TROPONINT in the last 168 hours. Scheduled Medications: ??? tiotropium bromide 2 puff Inhalation Daily ??? mometasone 220 mcg Inhalation Nightly ??? polyethylene glycol (GoLYTELY) with electrolytes BOWEL PREP powder for solution 4,000 mL Oral Once ??? ipratropium-albuteroL 3 mL Nebulization Q4H ADOLFO ??? methadone (Methadose) oral liquid 132 mg Oral Daily ??? pregabalin 200 mg Oral TID ??? lidocaine 1 patch Transdermal Q24H ??? busPIRone 15 mg Oral TID ??? DULoxetine DR 60 mg Oral BID ??? lisinopriL 20 mg Oral Daily ??? QUEtiapine 300 mg Oral Nightly ??? zonisamide 200 mg Oral Daily ??? sodium chloride 0.9 % (flush) 5 mL Intravenous BID ??? senna-docusate 2 tablet Oral BID ??? enoxaparin 40 mg Subcutaneous Nightly ??? predniSONE 60 mg Oral Daily ??? azithromycin 250 mg Oral Daily ??? nicotine 1 patch Transdermal Daily And ??? Patch Verification 1 patch Transdermal BID Infusing Medications: PRN Medications: triamcinolone, bisacodyL, ketorolac, lidocaine AND lidocaine, oxyCODONE, LORazepam, sodium chloride 0.9 % (flush), lidocaine, acetaminophen, melatonin, albuteroL Microbiology: Microbiology Results (Last 30 days) Procedure Component Value Units Date/Time Rapid Influenza A/B and RSV PCR [place] [place] [[id number]] Collected: 05/23/221213 Lab Status: Final result Specimen: Nasopharyngeal Swab Updated: 05/23/221523 Influenza A PCR Not Detected Influenza B PCR Not Detected RSV PCR Not Detected Resp PCR Source RETREADER Swab COVID-19 PCR [[id number]] Collected: 05/23/221213 Lab Status: Final result Specimen: Nasopharyngeal Swab Updated: 05/23/221523 SARS-CoV-2 RNA PCR Not Detected Comment: This result should be interpreted in combination with the clinical observations, patient history and epidemiological information. For testing of asymptomatic individuals, assay performance characteristics and clinical utility have not been evaluated. Testing for SARS-CoV-2 (Severe acute respiratory syndrome coronavirus 2, formerly known as 2019 novel coronavirus or 2019-nCoV) to aid in the diagnosis of COVID-19 is performed using the Simplexa COVID-19 Direct Assay by [employer] as authorized by the FDA issued Emergency Use Authorization (EUA). This assay is intended for In-vitro Diagnostic (IVD) use with nasopharyngeal swabs collected from individuals meeting the CDC criteria for testing. The assay is performed based on the instructions for use and additional guidance provided by the FDA. Testing is performed in the Microbiology Laboratory within the Department of Pathology and Laboratory Medicine at [facility], certified under the Clinical Laboratory Improvement Amendments of 1988 (CLIA), 42 U.S.C. section 263a, to perform high complexity tests. Assay performance has been verified according to clinical laboratory regulatory requirements. Test results are provided above. A result of Not Detected indicates that the viral RNA target is not present but does not preclude SARS-CoV-2 infection. False negative results may occur if a specimen is improperly collected, transported or handled; if amplification inhibitors are present; or if inadequate numbers of viral particles are present in the specimen. A result of Detected suggests a current or recent infection and the patient is presumed to be infected. Positive and negative predictive values for this test are highly dependent on disease prevalence. A result of Invalid indicates the inability to conclusively determine the presence or absence of SARS-CoV-2 RNA in the sample which can be due to a variety of factors. Recollection is recommended in the case of an invalid result. CDC COVID-19 criteria for testing on human specimens and clinical management guidance information are available at the CDC Coronavirus Disease 2019 (COVID-19) webpage under Information for Healthcare Professionals (https://www.cdc.gov/coronavirus/2019-ncov/hcp/index.html). Additional information about this and other EUA tests can be found in provider and patient fact sheets at the following FDA website: https://www.fda.gov/medical-devices/gonzbienbny-gbxzutz-9138-apcxk-63-pqnbaaqdp- hyo-fjgmpyxwacvrmu-cpyvjcp-devices/ibznz-kpjqnakbxpy-kccp SARS-CoV-2 Source RETREADER Swab Antibiotics: Agent Start Date End Date azithromycin 05/24 Imaging/Studies: Results for orders placed or performed during the hospital encounter of 05/23/22 XR Chest One View (Exam End: 05/23/2022 12:08 PM) Impression No acute cardiopulmonary process identified. Thank you for letting us participate in the care of this patient. If you are a health care provider and have any questions regarding this report, please contact the number below. For patients who have questions please contact the health healthcare translator that requested your imaging first. Assessment & Plan: Garret Barros is a 46 y.o. male w/ PMH of COPD (GOLD stage D), anxiety, substance use disorder in remission, seizure disorder, and HTN on HD# 0 for acute on chronic hypoxic respiratory failure. ?? His presentation is most consistent with a COPD exacerbation given increased O2 requirements, new productive cough, wheezing, and mild respiratory acidosis in the context of low supply of inhalers athome. Pending RVP, but no other obvious inciting factors. He does not have signs or symptoms of pneumonia, CHF, or PE. Will treat with steroids and azithromycin and support him symptomatically with duonebs. ?? 05/25: Continuing to treat COPD exaerbation w/ prednisone and azithromycin. Not much symptomaic improvement and still wheezy on exam but O2 sats good on 2-3L. Regarding nausea/constipation, tried zofran which didn't help much. He was scheduled for BID miralax but ordered golytely so he has more control over treatment. Afebrile, HDS, good O2 sats. #Acute on chronic hypoxic respiratory failure #COPD (GOLD stage D) - s/p azithromycin 500 mg IV - s/p prednisone 60 mg PO - continue azithormycin 250 mg qd for 4 days - continue prednisone 60 mg PO for 4 days - Duonebs q6H scheduled - PRN albuterol nebs - titrate O2 for sat 88-93% - hold home inhalers (not on formulary) - Daily CBC, BMP - f/u RVP ?? #Peripheral neuropathy - home duloxetine 60 mg BID - home pregabalin 200 mg TID after meals ?? #Substance use disorder, in remission - home methadone 132 mg qd - Call [facility] programs in [facility] tomorrow AM to confirm dose ?? #Anxiety #Insomnia - home buspirone 15 mg TID - home quetiapine 300 mg QHS - home lorazepam 1 mg BID PRN ?? #Hypertension - Home lisinopril 20 mg qd ?? #Seizure disorder - home zonisamide 200 mg qd ?? #Tobacco use disorder - Nicotine patch 14mcg qd #Routine DVT PPx: LMWH GI PPx: Diet: Regular diet Lines: Peripheral IV Line - Single Lumen 05/23/22 1045 basilic vein (medial side of arm), right 20 gauge (Active) Number of days: 2 Code status: Attempt Cardiopulmonary Resuscitation - Inpatient Js Bedolla MD Internal Medicine PGY-1 Medicine Red Team Associated attestation - Lamberto Clark MD - 05/25/2022 4:02 PM EST Attending Attestation Please see Dr. Bedolla's note for details of the patient history [...] to respond immediately to the patient's need Slight improvement today, hopeful for discharge by end of week. Adding ICS equivalent to home therapy, Spiriva (in place of home umeclidinium), continuing nebs scheduled for now. Lamberto Clark MD [facility] Medicine 05/25/2022 * Narcisa Pinto RN - 2022 10:39 AM EST 0805- report received from CHRISTINE Dean. Pt alert and oriented. Very anxious and argumentative. Pt able to make needs known. IV flushed, saline locked and capped. Right leg, scar intact with red rash surrounding stump. O2 at 6 L via nasal cannula. O2 saturation sustaining in low 90's to upper 80's. Dr. Clark and Dr. De Leon aware. Okay with saturation, per physicians. Call gilmore within reach. Bed lockedand in lowest position. Head of bed elevated with pillow support. 0942- pt request for triamcinolone cream to be put on his right leg, pt did not tolerate cream well. Leg cleaned with soap and water to remove lotion. Rash is unchanged, skin still remains intact. Right leg elevated with cold compress for comfort. Call gilmore within reach. Dr. De Leon made aware and atbedside to discuss plan of care. 1750- communicated with physician regarding pt not having a bowel movement yet, and requesting another dosage of miralax. Pt states, the doctor told me to double my dose and it helps. prn dulcolax in place and offered. Pt declines at this time. Order modified by physician, see MAR for details. * Js Bedolla MD - 2022 6:47 AM EST Hospital Medicine Progress Note Patient Name: Garret Barros Date of Admission: 05/23/2022 ( Hospital Day 1 day ) Service: Medicine Red Team - Pager [phone] ID: Garret Barros is a 46 y.o. male w/ PMH of COPD (GOLD stage D), anxiety, substance use disorder in remission, seizure disorder, and HTN admitted for acute on chronic hypoxic respiratory failure. Interval Events: - Is very concerned about his breathing and pain. Reporting severe back pain, worse w/ inspiration.SpO2 >90%, pt removed NC himself. Does not appear to be in respiratory distress. Pt is very concerned that he has cancer which is why his pain and breathing are so bad. - Pt was requesting opitates for pain control overnight and this morning, declined tylenol or toradol - Was also severely anxious overnight, given hydroxyzine - New painful, pruritic, rash on R LE - Verified methadone dose Physical Exam: Last value Range last 24 hrs Temperature Temp: 36.5 ??C (97.7 ??F) Temp: [36.5 ??C (97.7 ??F)-37 ??C (98.6 ??F)] Heart Rate Heart Rate: 82 Heart Rate: [62-94] Blood Pressure BP: 116/67 BP: (116-167)/(67-111) Respiratory Rate Resp: 16 Resp: [11-31] SpO2 SpO2: 94 % SpO2: [87 %-97 %] Const: Uncomfortable appearing, NAD HEENT: MMM, no JVD, no LAD, PERRL, EOMI CV: RRR, no m/r/g Pulm: Scattered wheezes b/l, normal WOB Abd: Soft, NTND Ext: S/p R BKA. WWP, no LE edema, peripheral pulses intact Neuro: AOx4, remainder grossly intact Psych: Normal mood and affect Skin: Well demarcated circumferential erythematous reticular rash on R LE around region of prosthetic sleeve Ins/Outs: Intake/Output Summary (Last 24 hours) at 2022 0648 Last data filed at 2022 0310 Gross per 24 hour Intake 705 ml Output 1300 ml Net -595 ml Patient Vitals for the past 168 hrs: Weight 05/23/22 1636 83.5 kg (184 lb) Labs: Recent Labs 05/23/22 1200 WBC 10.7* HGB 17.1* HCT 51.7* PLATELET 177 Recent Labs 05/23/22 1200 NA 142 K 3.8 CL 102 CO2 32* BUN 12 CREATININE 0.73* Recent Labs 05/23/22 1200 AST 13 ALT 16 ALKPHOS 61 BILITOT 0.3 BILIDIR 0.1 Recent Labs 05/23/22 1200 CALCIUM 9.0 MAGNESIUM 1.05 No results for input(s): INR, PT, PTT in the last 168 hours. No results for input(s): CK, TROPONINT in the last 168 hours. Scheduled Medications: ??? ketorolac 15 mg Intravenous Once ??? methadone 132 mg Oral Daily ??? pregabalin 200 mg Oral TID PC ??? busPIRone 15 mg Oral TID ??? DULoxetine DR 60 mg Oral BID ??? lisinopriL 20 mg Oral Daily ??? QUEtiapine 300 mg Oral Nightly ??? zonisamide 200 mg Oral Daily ??? sodium chloride 0.9 % (flush) 5 mL Intravenous BID ??? senna-docusate 2 tablet Oral BID ??? enoxaparin 40 mg Subcutaneous Nightly ??? predniSONE 60 mg Oral Daily ??? azithromycin 250 mg Oral Daily ??? ipratropium-albuteroL 3 mL Nebulization Q6H ??? nicotine 1 patch Transdermal Daily And ??? Patch Verification 1 patch Transdermal BID Infusing Medications: PRN Medications: triamcinolone, LORazepam, sodium chloride 0.9 % (flush), lidocaine, acetaminophen, melatonin, albuteroL Microbiology: Microbiology Results (Last 30 days) Procedure Component Value Units Date/Time Rapid Influenza A/B and RSV PCR [place]) [[id number]] Collected: 05/23/221213 Lab Status: Final result Specimen: Nasopharyngeal Swab Updated: 05/23/221523 Influenza A PCR Not Detected Influenza B PCR Not Detected RSV PCR Not Detected Resp PCR Source RETREADER Swab COVID-19 PCR [[id number]] Collected: 05/23/221213 Lab Status: Final result Specimen: Nasopharyngeal Swab Updated: 05/23/221523 SARS-CoV-2 RNA PCR Not Detected Comment: This result should be interpreted in combination with the clinical observations, patient history and epidemiological information. For testing of asymptomatic individuals, assay performance characteristics and clinical utility have not been evaluated. Testing for SARS-CoV-2 (Severe acute respiratory syndrome coronavirus 2, formerly known as 2019 novel coronavirus or 2019-nCoV) to aid in the diagnosis of COVID-19 is performed using the Simplexa COVID-19 Direct Assay by [employer] as authorized by the FDA issued Emergency Use Authorization (EUA). This assay is intended for In-vitro Diagnostic (IVD) use with nasopharyngeal swabs collected from individuals meeting the CDC criteria for testing. The assay is performed based on the instructions for use and additional guidance provided by the FDA. Testing is performed in the Microbiology Laboratory within the Department of Pathology and Laboratory Medicine at [facility], certified under the Clinical Laboratory Improvement Amendments of 1988 (CLIA), 42 U.S.C. section 263a, to perform high complexity tests. Assay performance has been verified according to clinical laboratory regulatory requirements. Test results are provided above. A result of Not Detected indicates that the viral RNA target is not present but does not preclude SARS-CoV-2 infection. False negative results may occur if a specimen is improperly collected, transported or handled; if amplification inhibitors are present; or if inadequate numbers of viral particles are present in the specimen. A result of Detected suggests a current or recent infection and the patient is presumed to be infected. Positive and negative predictive values for this test are highly dependent on disease prevalence. A result of Invalid indicates the inability to conclusively determine the presence or absence of SARS-CoV-2 RNA in the sample which can be due to a variety of factors. Recollection is recommended in the case of an invalid result. CDC COVID-19 criteria for testing on human specimens and clinical management guidance information are available at the CDC Coronavirus Disease 2019 (COVID-19) webpage under Information for Healthcare Professionals (https://www.cdc.gov/coronavirus/2019-ncov/hcp/index.html). Additional information about this and other EUA tests can be found in provider and patient fact sheets at the following FDA website: https://www.fda.gov/medical-devices/gfespfxdgwv-guhvdqg-9802-gnclr-46-xmrojqslq- yio-hrvylwxcxglvqc-eibsuyx-devices/wopcz-bjjumvuauxb-vild SARS-CoV-2 Source RETREADER Swab Antibiotics: Agent Start Date End Date azithromycin 05/24 Imaging/Studies: Results for orders placed or performed during the hospital encounter of 05/23/22 XR Chest One View (Exam End: 05/23/2022 12:08 PM) Impression No acute cardiopulmonary process identified. Thank you for letting us participate in the care of this patient. If you are a health care provider and have any questions regarding this report, please contact the number below. For patients who have questions please contact the health healthcare translator that requested your imaging first. Assessment & Plan: Garret Barros is a 46 y.o. male w/ PMH of COPD (GOLD stage D), anxiety, substance use disorder in remission, seizure disorder, and HTN on HD# 0 for acute on chronic hypoxic respiratory failure. ?? His presentation is most consistent with a COPD exacerbation given increased O2 requirements, new productive cough, wheezing, and mild respiratory acidosis in the context of low supply of inhalers athome. Pending RVP, but no other obvious inciting factors. He does not have signs or symptoms of pneumonia, CHF, or PE. Will treat with steroids and azithromycin and support him symptomatically with duonebs. ?? 05/24: Continuing to treat COPD exacerbation w/ prednisone and azithromycin. O2 sats good and normalWOB. Although he clinically appears to be improving he is extremely anxious about his breathing andback pain. He is very concerned that he has lung cancer even after explaining to him that his imaging is reassuring. He has very severe anxiety at baseline and is very concerned about the timing of his medication early in the morning. He is declining all pain intervention other than opiates. #Acute on chronic hypoxic respiratory failure #COPD (GOLD stage D) - s/p azithromycin 500 mg IV - s/p prednisone 60 mg PO - continue azithormycin 250 mg qd for 4 days - continue prednisone 60 mg PO for 4 days - Duonebs q6H scheduled - PRN albuterol nebs - titrate O2 for sat 88-93% - hold home inhalers (not on formulary) - Daily CBC, BMP - f/u RVP ?? #Peripheral neuropathy - home duloxetine 60 mg BID - home pregabalin 200 mg TID after meals ?? #Substance use disorder, in remission - home methadone 132 mg qd - Call [facility] programs in [facility] tomorrow AM to confirm dose ?? #Anxiety #Insomnia - home buspirone 15 mg TID - home quetiapine 300 mg QHS - home lorazepam 1 mg BID PRN ?? #Hypertension - Home lisinopril 20 mg qd ?? #Seizure disorder - home zonisamide 200 mg qd ?? #Tobacco use disorder - Nicotine patch 14mcg qd #Routine DVT PPx: LMWH GI PPx: Diet: Regular diet Lines: Peripheral IV Line - Single Lumen 05/23/22 1045 basilic vein (medial side of arm), right 20 gauge (Active) Number of days: 0 Code status: Attempt Cardiopulmonary Resuscitation - Inpatient Js Bedolla MD Internal Medicine PGY-1 Medicine Red Team Associated attestation - Lamberto Clark MD - 2022 2:56 PM EST Attending Attestation Please see Dr. Bedolla's note for details of the patient history [...] of two midnights or is on the [facility] inpatient only procedure list (status C) due to: acute respiratory compromise and/or hypoxia requiring assessment every 4 hours and the ability to respond immediately to the patient's need Lamberto Clark MD [facility] 2022 documented in this encounter H&P Notes * Debi De Leon MD - 05/23/2022 3:16 PM EST Images from the original note were not included. [facility], #[id number], H&P Patient info: Name: Garret Barros : 1975 PCP: Travis Castaneda MD PCP phone number: [phone] Date of Admission: 05/23/2022 ( Hospital Day 0 days ) Attending:Lamberto Clark MD ID: Garret Barros is a 46 y.o. male w/ PMH of tobacco use disorder, substance use disorder in remission, HTN, COPD/asthma overlap syndrome (GOLD stage D), pulmonary nodules, anxiety, seizure disorderon Hospital Day0 for Chief Complaint Patient presents with ??? Shortness of Breath HPI: Mr. Barros is a 46 year old man with PMH of tobacco use disorder, substance use disorder in remission, HTN, COPD/asthma overlap syndrome (GOLD stage D), pulmonary nodules, and anxiety who presented to the ED from pulmonary clinic for hypoxia. Patient reports 2-3 days of worsening shortness of breath (at rest and with exertion), new productive cough with yellow phlegm, and overall malaise. He typically uses oxygen only with exertion (~2L) but over the last few days he is using up to 3L while at rest. His lowest noted O2 sat at home was 77%. He went to a scheduled pulmonary appointment today where he was noted to have O2 sats in the low80s on 2L O2. He was sent to the ED for further evaluation. On arrival, he was hypertensive but otherwise hemodynamically stable. He was placed on 6L of O2 with improvement in sats to 94% and administered a breathing treatment with symptomatic improvement. VBG showed mild respiratory acidosis (nearly compensated) with pCO2 68 (previously documented in high 50s). He had a mild leukocytosis but otherwise CBC and CMP were unrevealing. CXR did not demonstrated pulmonary opacities or edema. Troponin, proBNP, and D-dimer returned negative. He was given prednisone 60 mg and azithromycin 500 mg IV. His dyspnea persists but is improved since arrival (currently on 3L NC). He reports anxiety associated with his shortness of breath, which is typical for him. He denies fever/chills, rhinorrhea, sickcontacts, chest pain, abdominal pain, weight gain or loss, night sweats, or lower extremity edema. He states his home inhalers are running low. No new respiratory exposures. Last FEV1 in 2020 was 17%. Review of Systems (positives in bold) General: [...] or visual changes Derm: lumps or rash Psych: anxiety PMH Past Medical History: Diagnosis Date ??? Alcohol abuse ??? Anxiety ??? COPD (chronic obstructive pulmonary disease) ??? Opioid abuse PSH Past Surgical History: Procedure Laterality Date ??? LEG AMPUTATION BELOW KNEE Family History No family history on file. Social History Social History Socioeconomic History ??? Marital status: Spouse name: Not on file ??? Number of children: Not on file ??? Years of education: Not on file ??? Highest education level: Not on file Occupational History ??? Not on file Tobacco Use ??? Smoking status: Every Day Packs/day: 0.25 Years: 30.00 Pack years: 7.50 Types: Cigarettes ??? Smokeless tobacco: Never ??? Tobacco comments: 1 pack last about 10 days; previously was 2 ppd- one pack lasts a month Vaping Use ??? Vaping Use: Never used Substance and Sexual Activity ??? Alcohol use: Not Currently ??? Drug use: Not Currently ??? Sexual activity: Not Currently Other Topics Concern ??? Not on file Social History Narrative ??? Not on file Social Determinants of Health Financial Resource Strain: Not on file Food Insecurity: Not on file Transportation Needs: Not on file Physical Activity: Not on file Housing Stability: Not on file Allergies: Allergies Allergen Reactions ??? Penicillins Other reaction(s): Swelling of throat Meds ??? nicotine 1 patch Transdermal Daily And ??? [START ON 2022] Patch Verification 1 patch Transdermal BID ??? [START ON 2022] predniSONE 60 mg Oral Daily ??? [START ON 2022] azithromycin 250 mg Oral Daily ??? ipratropium-albuteroL 3 mL Nebulization Q6H Objective: Vitals Last value Range last 24 hrs Temperature Temp: 36.9 ??C (98.4 ??F) Temp: [36.9 ??C (98.4 ??F)] Heart Rate Heart Rate: 73 Heart Rate: [62-94] Blood Pressure BP: 144/85 BP: (119-167)/(85-111) Art Line BP BP (Arterial Line): -- MAP (NBP): [104 mmHg-128 mmHg] Respiratory Rate Resp: 27 Resp: [12-31] SpO2 SpO2: 95 % SpO2: [87 %-97 %] Oxygen Delivery Oxygen Therapy O2 Device: Nasal cannula O2 Flow Rate (L/min): 6 L/min No intake or output data in the 24 hours ending 05/23/22 1537 No data found. Physical Exam: Gen: in bed in NAD. Sitting upright, NC in place. HEENT: anicteric, EOMI intact, CV: RRR, no murmurs/rubs/gallops Resp: Diffuse expiratory wheeze throughout. Speaks in full sentences. Normal work of breathing Abd: normal bowel sounds, soft, non-tender to palpation, no rebound or guarding Ext: 2+ distal pulses, no pedal edema to RLE. Artificial left lower extremity from knee down. Neuro: no focal deficits noted, CN II-XII grossly intact, moves all extremities spontaneously Psych: anxious but cooperative. Skin: no rashes, lesions, or ulcerations noted on exposed skin. Lines/Drains/Airways Lines: Peripheral IV Line - Single Lumen 05/23/22 1045 basilic vein (medial side of arm), right 20 gauge (Active) Labs: Recent Labs 05/23/22 1200 WBC 10.7* HGB 17.1* HCT 51.7* PLATELET 177 MCV 95.0* Recent Labs 05/23/22 1200 NA 142 CL 102 CO2 32* K 3.8 MAGNESIUM 1.05 CALCIUM 9.0 BUN 12 CREATININE 0.73* LFTs Recent Labs 05/23/22 1200 PROT 7.0 ALBUMIN 4.3 AST 13 ALT 16 ALKPHOS 61 BILITOT 0.3 BILIDIR 0.1 Coags Recent Labs 05/23/22 1200 DDIMER <215 Cardiac Enzymes Recent Labs 05/23/22 1200 PROBNP 7 Endocrine No results for input(s): TSH, CORTISOL in the last 7068 hours. Invalid input(s): [id number] No results for input(s): POCGLU in the last 168 hours. Heme No results for input(s): LDH, HAPTOGLOBIN, URICACID in the last 168 hours. ABG (Arterial Blood Gas) No results found for: PHART, PO2ART, PUZ2XJZ, BYW0UWD Microbiology: Microbiology Results (Last 30 days) Procedure Component Value Units Date/Time Rapid Influenza A/B and RSV PCR ([facility] [[id number]] Collected: 05/23/221213 Lab Status: Final result Specimen: Nasopharyngeal Swab Updated: 05/23/221523 Influenza A PCR Not Detected Influenza B PCR Not Detected RSV PCR Not Detected Resp PCR Source RETREADER Swab COVID-19 PCR [[id number]] Collected: 05/23/221213 Lab Status: Final result Specimen: Nasopharyngeal Swab Updated: 05/23/221523 SARS-CoV-2 RNA PCR Not Detected Comment: This result should be interpreted in combination with the clinical observations, patient history and epidemiological information. For testing of asymptomatic individuals, assay performance characteristics and clinical utility have not been evaluated. Testing for SARS-CoV-2 (Severe acute respiratory syndrome coronavirus 2, formerly known as 2019 novel coronavirus or 2019-nCoV) to aid in the diagnosis of COVID-19 is performed using the Simplexa COVID-19 Direct Assay by [employer] as authorized by the FDA issued Emergency Use Authorization (EUA). This assay is intended for In-vitro Diagnostic (IVD) use with nasopharyngeal swabs collected from individuals meeting the CDC criteria for testing. The assay is performed based on the instructions for use and additional guidance provided by the FDA. Testing is performed in the Microbiology Laboratory within the Department of Pathology and Laboratory Medicine at [facility], certified under the Clinical Laboratory Improvement Amendments of 1988 (CLIA), 42 U.S.C. section 263a, to perform high complexity tests. Assay performance has been verified according to clinical laboratory regulatory requirements. Test results are provided above. A result of Not Detected indicates that the viral RNA target is not present but does not preclude SARS-CoV-2 infection. False negative results may occur if a specimen is improperly collected, transported or handled; if amplification inhibitors are present; or if inadequate numbers of viral particles are present in the specimen. A result of Detected suggests a current or recent infection and the patient is presumed to be infected. Positive and negative predictive values for this test are highly dependent on disease prevalence. A result of Invalid indicates the inability to conclusively determine the presence or absence of SARS-CoV-2 RNA in the sample which can be due to a variety of factors. Recollection is recommended in the case of an invalid result. CDC COVID-19 criteria for testing on human specimens and clinical management guidance information are available at the CDC Coronavirus Disease 2019 (COVID-19) webpage under Information for Healthcare Professionals (https://www.cdc.gov/coronavirus/2019-ncov/hcp/index.html). Additional information about this and other EUA tests can be found in provider and patient fact sheets at the following FDA website: https://www.fda.gov/medical-devices/reufgogmlub-zumvlej-1797-ulqdu-80-bshclbsof- xwr-rjhvstyqsvfkxd-jikriul-devices/eswzw-ezxzknjrmkq-wjyi SARS-CoV-2 Source RETREADER Swab Imaging: Results for orders placed or performed during the hospital encounter of 05/23/22 XR Chest One View (Exam End: 05/23/2022 12:08 PM) Impression No acute cardiopulmonary process identified. Thank you for letting us participate in the care of this patient. If you are a health care provider and have any questions regarding this report, please contact the number below. For patients who have questions please contact the health healthcare translator that requested your imaging first. Medications Scheduled Meds: ??? nicotine 1 patch Transdermal Daily And ??? [START ON 2022] Patch Verification 1 patch Transdermal BID ??? [START ON 2022] predniSONE 60 mg Oral Daily ??? [START ON 2022] azithromycin 250 mg Oral Daily ??? ipratropium-albuteroL 3 mL Nebulization Q6H Continuous Infusions: PRN Meds:. Assessment & Plan: Garret Barros is a 46 y.o. male w/ PMH of COPD (GOLD stage D), anxiety, substance use disorder in remission, seizure disorder, and HTN on HD# 0 for acute on chronic hypoxic respiratory failure. His presentation is most consistent with a COPD exacerbation given increased O2 requirements, new productive cough, wheezing, and mild respiratory acidosis in the context of low supply of inhalers athome. Pending RVP, but no other obvious inciting factors. He does not have signs or symptoms of pneumonia, CHF, or PE. Will treat with steroids and azithromycin and support him symptomatically with duonebs. #Acute on chronic hypoxic respiratory failure #COPD (GOLD stage D) - s/p azithromycin 500 mg IV - s/p prednisone 60 mg PO - continue azithormycin 250 mg qd for 4 days - continue prednisone 60 mg PO for 4 days - Duonebs q6H scheduled - PRN albuterol nebs - titrate O2 for sat 88-93% - hold home inhalers (not on formulary) - Daily CBC, BMP - f/u RVP #Peripheral neuropathy - home duloxetine 60 mg BID - home pregabalin 200 mg TID after meals #Substance use disorder, in remission - home methadone 132 mg qd - Call [facility] programs in [facility] tomorrow AM to confirm dose #Anxiety #Insomnia - home buspirone 15 mg TID - home quetiapine 300 mg QHS - home lorazepam 1 mg BID PRN #Hypertension - Home lisinopril 20 mg qd #Seizure disorder - home zonisamide 200 mg qd #Tobacco use disorder - Nicotine patch 14mcg qd #Routine Diet: No diet orders on file Regular diet DVT Prophylaxis: SQ enoxaparin GI Prophylaxis: not indicated Code Status: Attempt Cardiopulmonary Resuscitation - Inpatient Dispo: Pending clinical course Debi De Leon MD Internal Medicine, PGY-2 [facility] Medicine, [facility] Team, #[id number] 05/23/22 3:37 PM Associated attestation - Lamberto Clark MD - 05/23/2022 3:50 PM EST Attending Attestation Please see Dr. De Leon's note for details of the patient history [...] to respond immediately to the patient's need Somewhat improved from initial presentation to clinic/ED, stable on 3L NC (baseline intermittent 2Lat home). COVID/flu/RSV negative. Low concern for PE at this time. Lamberto Clark MD [facility] Medicine 05/23/2022 documented in this encounter ED Notes * Joy Benavides, CIRCULAR SAW OPERATOR - 05/23/2022 11:51 AM EST ED Provider Note HPI: Garret Barros is a 46 y.o. male with history of tobacco use disorder, alcohol use disorder, opioid withdrawal, COPD and hypertension who presents to the Emergency Department with increased shortness of breath and productive cough over the past 2 to 3 days. Patient presented to the clinic and was found to be hypoxic in the 80s and was referred to the ED for further work-up. Patient is a current smoker and states he smokes approximately a pack a month and is trying to wean himself off with nicotine patches. Patient states that over the past 2 to 3 days he has had increased shortness of breath unrelieved with his home inhalers and productive cough with yellow sputum. Patient states that he has lung pain. With pain between his shoulder blades and chest however states that this is his usual COPD exacerbation pain. Patient states that he feels clammy but denies fevers or chills. Patient denies history of PE or DVT. Patient is not anticoagulated. Has history of CAD. Patient has not taken any [id number]-[id number] medications for relief of symptoms. Patient denies any or GI symptoms. Patient denies any URI symptoms. Patient denies any other associated constitutional symptoms. Patient denies any aggravating or relieving factors. Patient is on 2 L of home O2. ROS as per HPi Vitals: ED Triage Vitals [05/23/22 1137] BP: (!) 164/111 Heart Rate: 90 Resp: 23 Temp: 36.9 ??C (98.4 ??F) Temp src: Oral SpO2: 94 % O2 Device: NC O2 Flow Rate (L/min): 6 L/min Physical Exam Vitals and nursing note reviewed. Constitutional: General: He is in acute distress. Appearance: Normal appearance. HENT: Nose: Nose normal. Mouth/Throat: Mouth: Mucous membranes are moist. Cardiovascular: Rate and Rhythm: Normal rate and regular rhythm. Pulses: Normal pulses. Heart sounds: Normal heart sounds. Pulmonary: Effort: Respiratory distress present. Breath sounds: No stridor. Wheezing present. No rhonchi or rales. Chest: Chest wall: No tenderness. Abdominal: General: Abdomen is flat. Palpations: Abdomen is soft. Skin: General: Skin is warm and dry. Neurological: Mental Status: He is alert and oriented to person, place, and time. Psychiatric: Mood and Affect: Mood normal. Behavior: Behavior normal. Thought Content: Thought content normal. Judgment: Judgment normal. ED Course: I have reviewed labs and imaging, images and available reports, and they are significant for: Chest x-ray negative for any acute cardiopulmonary disease processes. Patient's laboratory values are significant for WBC 10.7, PCO2 68, PO2 48. Remainder of patient's laboratory values are within clinical acceptable limits. Troponin 8. Patient is stable BMP. BNP 7. D-dimer less than 215. Patient's history and physical exam is clinically correlated with acute COPD exacerbation. Will give DuoNeb treatment and start patient on azithromycin and prednisone I reviewed the EKG tracing: Rhythm: NSR Rate: 72 Relevant findings: NSR at 72 bpm, no acute ST or T wave abnormalities. Similar to previous tracing on 01/31/2020 Recent Results (from the past 24 hour(s)) Basic Metabolic Panel (non-fasting) Result Value Ref Range Glucose Lvl Not Perf 65 - 199 BUN 12 10 - 20 mg/dL Creatinine 0.73 (L) 0.80 - 1.50 mg/dL Sodium 142 135 - 145 mmol/L Potassium 3.8 3.5 - 5.0 mmol/L Chloride 102 98 - 107 mmol/L CO2 32 (H) 22 - 31 mmol/L Anion Gap 8 5 - 15 mmol/L Calcium 9.0 8.5 - 10.5 mg/dL Estimated GFR 112 >=60 mL/min/1.73 m?? Troponin Result Value Ref Range Troponin-T HS 10 <=22 ng/L Hepatic Function Panel Result Value Ref Range Total Protein 7.0 6.1 - 8.0 g/dL Albumin 4.3 3.2 - 5.2 g/dL AST 13 0 - 39 unit/L ALT 16 0 - 55 unit/L Alk Phos 61 40 - 130 unit/L Total Bilirubin 0.3 0.2 - 1.3 mg/dL Bili, Direct 0.1 0.0 - 0.3 mg/dL D-Dimer, Quantitative Result Value Ref Range D-Dimer, Quant <215 0 - 500 FEU ng/ml pro-Brain Natriuretic Peptide Result Value Ref Range ProBNP 7 <=124 pg/mL Magnesium Result Value Ref Range Magnesium 1.05 0.69 - 1.07 mmol/L Hemogram Result Value Ref Range WBC 10.7 (H) 4.0 - 9.5 x10(3)/mcL RBC 5.44 4.58 - 5.54 x10(6)/mcL Hemoglobin 17.1 (H) 13.7 - 16.5 g/dL Hematocrit 51.7 (H) 40.5 - 48.5 % MCV 95.0 (H) 82.9 - 93.1 fL MCH 31.4 27.5 - 32.1 pg MCHC 33.1 32.0 - 35.7 g/dL Platelets 177 145 - 357 x10(3)/mcL RDWSD 47.9 (H) 36.0 - 45.0 fL RDWCV 13.6 11.4 - 13.8 % MPV 10.5 7.6 - 12.9 fL nRBC % Auto 0.0 % nRBC Abs Auto 0.000 0.000 - 0.000 x10(3)/mcL Differential, Automated Result Value Ref Range Neutrophils % 52.5 % Neutr Abs (ANC) 5.62 1.70 - 6.10 x10(3)/mcL Lymphocytes % 33.6 % Lymphocytes Abs 3.6 (H) 0.9 - 3.2 x10(3)/mcL Monocytes % 10.5 % Monocyte Abs 1.1 (H) 0.3 - 0.9 x10(3)/mcL Eosinophils % 2.4 % Eosinophils Abs 0.3 0.0 - 0.4 x10(3)/mcL Basophils % 0.7 % Basophils Abs 0.1 0.0 - 0.1 x10(3)/mcL Immature Gran % 0.30 % Ariana Gran Abs 0.03 0.00 - 0.04 x10(3)/mcL Gold Tube HOLD Result Value Ref Range Gold Hold Sample in lab. Red Tube Hold Result Value Ref Range Red Hold Sample in lab. BLOOD GAS 2 VENOUS Result Value Ref Range pH Neo 7.30 (L) 7.32 - 7.42 pCO2 Neo 68 (CRIT) 41 - 51 mmHg pO2 Neo 48 (H) 25 - 40 mmHg HCO3 Neo 32.7 mmol/L BE Neo 6.3 mmol/L Hgb Blood Gas 17.8 (H) 13.7 - 16.5 g/dL O2HB Neo 78.8 % COHB Neo 4.0 % METHB Neo 0.4 <=1.5 % Na Whole Blood 141 135 - 145 mmol/L K Whole Blood 4.0 3.5 - 5.0 mmol/L ICa Whole Blood 1.19 1.15 - 1.33 mmol/L CL Whole Blood 99 98 - 107 mmol/L Gluc Whole Bld 89 65 - 199 mg/dL Lactate WB 0.8 0.5 - 2.2 mmol/L BGas Source Venous Troponin Result Value Ref Range Troponin-T HS 8 <=22 ng/L XR Chest One View Final Result No acute cardiopulmonary process identified. Thank you for letting us participate in the care of this patient. If you are a health care provider and have any questions regarding this report, please contact the number below. For patients who have questions please contact the health healthcare translator that requested your imaging first. Assessment and Plan: 46 y.o. male with history of COPD presents from clinic for O2 sats in the 80s. Patient arrives on 6L via nasal cannula. I was able to titrate patient down to 3 L with O2 saturations holding steady at 92%. Patient is on 2 L of O2 at home. On initial exam, patient is in a tripoding position with marked difficulty breathing and mild respiratory distress. Patient is able to speak in short full sentences. Patient has diffuse inspiratory and expiratory wheezing posteriorly with no rhonchi or rales noted. Chest x-ray negative for any acute cardiopulmonary disease processes. EKG negative for ACS. Patient started on 60 mg p.o. prednisone as well as 500 mg IV azithromycin, DuoNeb treatment, 0.5 mg of lorazepam for anxiety. Patient was given his home 200 mg Lyrica dose during his ED stay. Patient's laboratory values are significant for pH 7.3 PCO2 68, PO2 48 and WBC 10.7 remainder of patient's laboratory values are within clinically acceptable limits with negative D-dimer and proBNP within normal limits. Magnesium 1.05. Flu, COVID and lactate pending at this time. Did not improve after DuoNeb treatment with continued oxygen requirement of 3.5 to 4 L to maintain O2 sats in the low 90s. Patient's history and physical exam is clinically correlated with an acute COPD exacerbation. Given continued hypoxia recommendation has been made to admit patient to hospital medicine. Patient is agreeable to this plan. Discussed patient's case with hospital medicine team who have accepted patient for admission. Patient admitted to hospital medicine. Did this case involve critical care? Yes CRITICAL CARE DOCUMENTATION: Is there a high potential of sudden, clinically significant, or life threatening deterioration? Yes Are there life and/or organ supporting interventions that require frequent personal assessment and manipulation or support to treat/prevent vital organ failure/deterioration? yes I personally performed 30 minutes of aggregate critical care time exclusive of procedures and teaching during this emergency department visit. This includes time spent during direct patient evaluation and reassessment, interpreting diagnostic tests, directing life and/or organ supporting interventions, and documentation. The visit findings, diagnosis, and care plan were discussed with the patient. Joy Benavides APRN 05/23/22 1430 documented in this encounter Miscellaneous Notes * Care Management Discharge - Celine Peterson RN - 06/03/2022 12:49 PM EST CARE MANAGEMENT FINAL DISCHARGE NOTE Chart reviewed, care reviewed with primary team and at interdisciplinary rounds. Patient is medically ready for discharge to home. Needs for Transition of Care: Plan for discharge is: Home w/o Services Company: [employer] *Has at home Agency Referrals & Follow-up Care: Transportation: health plan transportation Wheelchair van/Ambulance? No Functional status prior to admission: Assistive Equipment Home Environment: Others in the home: alone. Current Living Arrangements: home/apartment/condo. Accessibility Concerns: . Current Functional Ability: Independent DME used at home: oxygen, prosthesis DME Needed at Discharge: Patient is insured through: Primary Insurance: MEDICARE Payor: MEDICARE / Plan: MEDICARE PART A & B / Product Type: *No Product type* / Secondary Insurance: MEDICAID [place] Prescription Coverage: Yes This plan was formulated with input from patient and team. All are in agreement with plan. Celine Peterson [facility] [phone] * Plan of Care - Karlie Silva RN - 06/03/2022 3:44 AM EST OUTCOME EVALUATION NOTE: OUTCOME SUMMARY: Patient alert and oriented x4, anxious. Neuro exam unchanged. VS as charted on 2-3L NC. Tylenol PRNfor pain in back pt reports as 02/07. Also complains of migraine. Patient encouraged to drink PO fluids and keep nicotine patch on overnight, this may help with headache. Patient removes patch beforebed. Sleeps between care. Had 2 loose BMs on this shift. Refuses enemas as patient states that he is finally having bowel movements. Refusing seizure precautions. Appears to have slept between care. PLAN MOVING FORWARD: Pain control I&Os D/c planning INDIVIDUALIZED FALL PREVENTION INTERVENTIONS: Patient-specific fall risk factors per assessment: [current deficits]: BKA w/ prosthetic, oxygen tubing, hospital environment Assistance [level of assistance required for transfers and ambulation]: independent Supervision [direct monitoring required during toileting and ADLs]: independent Surveillance [continuous indirect monitoring]: Lori purposeful nurse rounds, room near unit station, call gilmore within reach * Patient Refusal of Care - Karlie Silva RN - 06/02/2022 9:15 PM EST Patient refusing Seizure precautions/ seizure pads The reason pt gave for this refusal was I dont think that will happen again tonight. referring to seizure activity Nursing actions taken during this shift to address patient???s refusal included: Educated patient on risk of hitting head or falling if seizure comes on suddenly, informing patient he cannot always predict when it will happen. Educated that pads will cover side rails to prevent patient from hittinghead on hard surface while seizing. Encouraged patient to call for assistance OOB, but refuses and refuses bed alarm. Plan to address patient???s refusal include: Frequent nurse rounds, removed all unnecessary equipment in room, call gilmore within reach, bed in lowest postion * Plan of Care - Karlie Silva RN - 06/02/2022 5:26 AM EST OUTCOME EVALUATION NOTE: OUTCOME SUMMARY: Patient alert and oriented x4, anxious. VS as charted on 3L NC. Toradol IM PRN for pain in back pt reports as 04/09 always. Also complains of migraine. Sleeps between care. Patient argumentative about timing of medication/ when last dose was received. Patient paces in front of nursing station angrily and mumbles when requesting medication and it is not given as soon as requested. Frequently seeks out staff. Patient states he I know I have a kidney infection but the lab made up the results of the urine test so they could kick me out Denies any pain/burning with urination, or change in urinecolor. Encouraged to drink go lytely during this shift, patient drank about half. States he had no bowel movement but is passing gas. PLAN MOVING FORWARD: Pain control I&Os D/c planning INDIVIDUALIZED FALL PREVENTION INTERVENTIONS: Patient-specific fall risk factors per assessment: [current deficits]: BKA w/ prosthetic, oxygen tubing, hospital environment Assistance [level of assistance required for transfers and ambulation]: independent Supervision [direct monitoring required during toileting and ADLs]: independent Surveillance [continuous indirect monitoring]: Masimo, purposeful nurse rounds, room near unit station, call gilmore within reach * Care Management - Celine Peterson RN - 06/01/2022 1:35 PM EST OFFICE OF CARE MANAGEMENT PROGRESS NOTE LOS: Hospital Day 9 days Chart reviewed, care reviewed with primary team and at interdisciplinary rounds. Patient is medically ready for discharge. Decision Maker: Self Functional status prior to admission: Assistive Equipment Home Environment: Others in the home: alone. Current Living Arrangements: home/apartment/condo. Accessibility Concerns: . Current Functional Ability: Independent DME used at home: oxygen, prosthesis DME Needed at Discharge: No Patient is insured through: Primary Insurance: MEDICARE Payor: MEDICARE / Plan: MEDICARE PART A & B / Product Type: *No Product type* / Secondary Insurance: MEDICAID [place] Last Physical Therapy Recommendation: with Last Occupational Therapy Recommendation: with Plan for discharge is: Home w/o Services Company: [employer] *Has at home Agency Referrals: Not Applicable Transportation: health plan transportation Barriers to discharge: None Plan going forward: Care Management will continue to follow and assist with discharge planning and coordination of care as indicated. Anticipated Date of Discharge: 06/02/2022 Celine Peterson [facility] [phone] * Plan of Care - Brittney Rangel RN - 06/01/2022 7:34 AM EST OUTCOME EVALUATION NOTE: OUTCOME SUMMARY: A+O x4. VS as charted on 2L NC but pt declined to wear O2 consistently. Meds given IM as pt is w/out IV. Multiple c/o pain, dissatisfaction w/ meds, med dosing times, c/o abdominal pain /bloating, etc. Pt reminded to communicate with staff using appropriate behavior and language. Pt Will continue to monitor, assess for and address comfort needs, ensure safety, and notify team of any changes. PLAN MOVING FORWARD: Pain management Encourage repositioning and mobility as tolerated Monitor respiratory status Monitor I/O's Encourage ADL's Skin care and monitoring Encourage/support family involvement Discharge planning INDIVIDUALIZED FALL PREVENTION INTERVENTIONS: Patient-specific fall risk factors per assessment: [current deficits]: weakness, O2 tubing, Assistance [level of assistance required for transfers and ambulation]: IND Supervision [direct monitoring required during toileting and ADLs]: Able to reliably summons for assistance Surveillance [continuous indirect monitoring]: Purposeful rounding, room near nsg station, call light within reach, bed/chair alarm off/refused, masimo on Patient-specific fall prevention interventions for sensory deficits provided, if applicable: As above CPG GOAL OUTCOME EVALUATION: Continue goals of care * Consult Note - Trenton Torres, CIRCULAR SAW OPERATOR - 05/31/2022 10:47 AM EST BIT Evaluation Referral source: Follow up Reason for referral: Opioid Use Disorder Relevant history: Mr. Barros is a 46-year-old man, [employer] on disability and father of one, admitted with acute on chronic hypoxic respiratory failure. History of traumatic stress and OUD in remission with Methadone assisted therapy. ?? Mr. Barros is A&Ox4, pleasant, and cooperative, endorses acute stress with ongoing hospitalization and timing of his medication dosing - RN is aware, reports his mood is not great, denies opioid withdrawal symptoms and craving on outpatient dose Methadone 130 mg daily, no acute safety concerns. ?? Mr. Barros reports reports having been abstinent from illicit opioids for 15+ years with Methadone assisted therapy at [facility] in [place] and [employer] sponsorship and plans to continue. He reports his last alcohol use was 4+ years ago. ?? [address] [place] [address] ?? Mr. Barros endorses a history of significant traumatic stress and past engagement in Trauma-informed Therapy. The benefits of Trauma-focused EMDR Therapy were discussed and resources were provided. He was encouraged to practice 4-7-8 Breathing technique for acute stress coping. Assessment: Mr. Barros is a 46-year-old man admitted with acute on chronic hypoxic respiratory failure. History of traumatic stress and OUD in remission with Methadone assisted therapy. Currently with acute stresswith hospitalization. Currently without opioid withdrawal symptoms and craving on outpatient dose Methadone 130 mg daily, no acute safety concerns. Motivated to remain abstinent from illicit opioids and alcohol with the ongoing clinical support of Methadone assisted therapy at [facility] and peer support through AA/[employer] sponsorship. He was encouraged to consider re-engagement in outpatient Trauma-focused Therapy. He was encouraged to practice 4-7-8 Breathing technique for acute stress coping. Interventions delivered: Consulted with care team Mindfulness Based Stress Reduction Motivational interviewing Pharmacologic treatment Resource coordination - outpatient mental health Resource coordination - substance use treatment Recommend: -Consultation between primary team and Methadone provider to coordinate potential dose titration and transfer of care at discharge. Plan: 1. Patient plans to remain abstinent from illicit opioids and alcohol with the ongoing clinical support of Methadone assisted therapy at [facility] and peer support through AA/[employer] sponsorship. 2. Patient was encouraged to consider re-engagement in outpatient Trauma-focused Therapy. 3. Patient was encouraged to practice 4-7-8 Breathing technique for acute stress coping. Outstanding Discharge Needs: Primary team should notify the outpatient methadone treatment program of the time of discharge and the time and amount of last dose of methadone to ensure that outpatient pharmacotherapy can be resumed without interruption. Time spent with the patient (min):15 minutes Time spent on case coordination (min): 15 minutes * Plan of Care - Marilyn Mcconnell RN - 05/29/2022 1:32 PM EST OUTCOME EVALUATION NOTE: OUTCOME SUMMARY: No acute events. Pt A+Ox4. PRN atarax given x1 for anxiety. BP elevated at times. VS otherwise stable on 2L NC. Pt continues to endorse back pain and headache, PRN toradol and oxycodone given when available. Pt refusing PRN tylenol. Pt continues to request methadone be switched from liquid to pill form, reports our methadone is stale and that's why (he's) dopesick. Pt very agitated regarding methadone dosing, reported he's going to have a seizure. MD at bedside, IV ativan given in order to help patient calm down. Pt independent in room, reports no BM today. Pt encouraged to ambulate outside of room to promote bowel movement. Will continue to monitor. PLAN MOVING FORWARD: Bowel management Pain control Discharge planning INDIVIDUALIZED FALL PREVENTION INTERVENTIONS: Patient-specific fall risk factors per assessment: [current deficits]: BKA, O2 tubing, independent in room Assistance [level of assistance required for transfers and ambulation]: Ind Supervision [direct monitoring required during toileting and ADLs]: Ind Surveillance [continuous indirect monitoring]: Purposeful rounding Patient-specific fall prevention interventions for sensory deficits provided, if applicable: NA CPG GOAL OUTCOME EVALUATION: * Plan of Care - Ugo Beavers RN - 05/28/2022 6:26 PM EST OUTCOME EVALUATION NOTE: OUTCOME SUMMARY: Pt A/Ox4 during shift. Pt anxious most of shift. Pt states pain to back and flanks. Pt given prn pain meds and prn anxiety meds. Pt had hard pellets BM, visualized by nurse. BM after fleets enema admin. Pt on 2L O2 via nasal cannula, O2 sat >88%. Will continue to monitor and assess. PLAN MOVING FORWARD: D'c planning Monitor Respiratory status Monitor for constipation Pain control INDIVIDUALIZED FALL PREVENTION INTERVENTIONS: Patient-specific fall risk factors per assessment: [current deficits]: none Assistance [level of assistance required for transfers and ambulation]: Ind Supervision [direct monitoring required during toileting and ADLs]: no Surveillance [continuous indirect monitoring]: lori Patient-specific fall prevention interventions for sensory deficits provided, if applicable: no CARE PLAN GOAL OUTCOME EVALUATION: Problem: Adult Inpatient Plan of Care Goal: Plan of Care Review 05/28/20221825 by Ugo Beavers RN Outcome: Ongoing (Interventions Implemented as Appropriate) 05/28/20221825 by Ugo Beavers RN Outcome: Ongoing (Interventions Implemented as Appropriate) Goal: Patient-Specific Goal (Individualized) 05/28/20221825 by Ugo Beavers RN Outcome: Ongoing (Interventions Implemented as Appropriate) 05/28/20221825 by Ugo Beavers RN Outcome: Ongoing (Interventions Implemented as Appropriate) Goal: Absence of Hospital-Acquired Illness or Injury 05/28/20221825 by Ugo Beavers RN Outcome: Ongoing (Interventions Implemented as Appropriate) 05/28/20221825 by Ugo Beavers RN Outcome: Ongoing (Interventions Implemented as Appropriate) Goal: Optimal Comfort and Wellbeing 05/28/20221825 by Ugo Beavers RN Outcome: Ongoing (Interventions Implemented as Appropriate) 05/28/20221825 by Ugo Beavers RN Outcome: Ongoing (Interventions Implemented as Appropriate) Goal: Readiness for Transition of Care 05/28/20221825 by Ugo eBavers RN Outcome: Ongoing (Interventions Implemented as Appropriate) 05/28/20221825 by Ugo Beavers RN Outcome: Ongoing (Interventions Implemented as Appropriate) Problem: Coping Ineffective Goal: Effective Coping 05/28/20221825 by Ugo Beavers RN Outcome: Ongoing (Interventions Implemented as Appropriate) 05/28/20221825 by Ugo Beavers RN Outcome: Ongoing (Interventions Implemented as Appropriate) Problem: Adjustment to Illness COPD (Chronic Obstructive Pulmonary Disease) Goal: Optimal Chronic Illness Coping Outcome: Ongoing (Interventions Implemented as Appropriate) Problem: Functional Ability Impaired COPD (Chronic Obstructive Pulmonary Disease) Goal: Optimal Level of Functional [place] Outcome: Ongoing (Interventions Implemented as Appropriate) Problem: Infection COPD (Chronic Obstructive Pulmonary Disease) Goal: Absence of Infection Signs and Symptoms Outcome: Ongoing (Interventions Implemented as Appropriate) Problem: Oral Intake Inadequate COPD (Chronic Obstructive Pulmonary Disease) Goal: Improved Nutrition Intake Outcome: Ongoing (Interventions Implemented as Appropriate) Problem: Respiratory Compromise COPD (Chronic Obstructive Pulmonary Disease) Goal: Effective Oxygenation and Ventilation Outcome: Ongoing (Interventions Implemented as Appropriate) * Plan of Care - Flori Wang RN - 05/28/2022 1:28 AM EST OUTCOME EVALUATION NOTE: OUTCOME SUMMARY: Pt AOx4. VSS, on 2L NC (wears 2L at home). Meds given as ordered, pills whole with water. Voiding in urinal. Ambulating independently in room. BP elevated this am 150/110, MD made aware, no new orders. PLAN MOVING FORWARD: Safe d/c planning INDIVIDUALIZED FALL PREVENTION INTERVENTIONS: Patient-specific fall risk factors per assessment: [current deficits]: generalized weakness, unfamiliar environment Assistance [level of assistance required for transfers and ambulation]: independent Supervision [direct monitoring required during toileting and ADLs]: independent Surveillance [continuous indirect monitoring]: purposeful rounding, bed near nurses station, call gilmore in reach Patient-specific fall prevention interventions for sensory deficits provided, if applicable: [X] N/A CPG GOAL OUTCOME EVALUATION: * Care Management - Celine Peterson RN - 05/27/2022 2:24 PM EST OFFICE OF CARE MANAGEMENT PROGRESS NOTE LOS: Hospital Day 4 days Chart reviewed, care reviewed with primary team and at interdisciplinary rounds. Patient continues to meet inpatient level of care related to: COPD exacerbation Decision Maker: Self Functional status prior to admission: Assistive Equipment Home Environment: Others in the home: alone. Current Living Arrangements: home/apartment/condo. Accessibility Concerns: . Current Functional Ability: Independent DME used at home: oxygen, prosthesis DME Needed at Discharge: No Patient is insured through: Primary Insurance: MEDICARE Payor: MEDICARE / Plan: MEDICARE PART A & B / Product Type: *No Product type* / Secondary Insurance: MEDICAID [place] Last Physical Therapy Recommendation: with Last Occupational Therapy Recommendation: with Plan for discharge is: Home w/o Services Agency Referrals: Not Applicable Transportation: health plan transportation Barriers to discharge: None Plan going forward: Care Management will continue to follow and assist with discharge planning and coordination of care as indicated. Anticipated Date of Discharge: 05/30/2022 Celine Peterson [facility] [phone] * Plan of Care - Marilyn Mcconnell RN - 05/27/2022 2:12 PM EST OUTCOME EVALUATION NOTE: OUTCOME SUMMARY: No acute events. Pt A+Ox4 but very anxious this shift. BP elevated today. VS otherwise stable on RA. Pt reporting severe pain all over today, PRN tylenol, toradol, and oxycodone given as available. Pt continues to report pain level 04/09. MD notified. Pt stating he hurts all over. Pt feels he is withdrawing from methadone, states the hospital methadone doesn't taste like methadone. Pt requesting his home methadone be placed in his room within. Rn explained that patients home medications are not allowed at the bedside. Pt refusing PRN tylenol this afternoon, because his stomach hurts, willing to take lyrica and oxycodone. Lidocaine patch offered but pt refused. Abdominal CT scan obtained to day. Will continue to monitor and notify MD of any acute events. PLAN MOVING FORWARD: Monitor respiratory status Pain control Manage anxiety Discharge planning INDIVIDUALIZED FALL PREVENTION INTERVENTIONS: Patient-specific fall risk factors per assessment: [current deficits]: BKA Assistance [level of assistance required for transfers and ambulation]: Ind Supervision [direct monitoring required during toileting and ADLs]: Ind Surveillance [continuous indirect monitoring]: Purposeful rounding Patient-specific fall prevention interventions for sensory deficits provided, if applicable: NA CPG GOAL OUTCOME EVALUATION: * Plan of Care - Flori Wang RN - 05/27/2022 2:55 AM EST OUTCOME EVALUATION NOTE: OUTCOME SUMMARY: Pt AOx4. VSS, on 2L NC (wears 2L at home). Meds given as ordered, pills whole with water. Voiding in urinal. Ambulating independently in room. Pt ordered for abd CT but refused test this evening, requested to defer to am. Pt received 1x dose of PO Ativan in evening for anxiety, with good effect. PLAN MOVING FORWARD: Safe d/c planning INDIVIDUALIZED FALL PREVENTION INTERVENTIONS: Patient-specific fall risk factors per assessment: [current deficits]: generalized weakness, unfamiliar environment Assistance [level of assistance required for transfers and ambulation]: independent Supervision [direct monitoring required during toileting and ADLs]: independent Surveillance [continuous indirect monitoring]: purposeful rounding, call gilmore in reach, bed near nurses station Patient-specific fall prevention interventions for sensory deficits provided, if applicable: [X] N/A CPG GOAL OUTCOME EVALUATION: * Plan of Care - Ugo Beavers RN - 05/26/2022 1:26 PM EST OUTCOME EVALUATION NOTE: OUTCOME SUMMARY: Pt A/Ox4 during shift. Pt states back and bilateral posterior flank pain. Pt given toradol IV and oxycodone po prn for pain. Pt given ativan po prn for anxiety. UA resulted for pt today, providers aware. KUB ordered, awaiting Xray. Pt states he bad a small BM this afternoon, pt gingerly drinking the go lytely for the last 24 hours. Pt O2 sat 88-92% on 2L O2 via NC. Will continue to monitor and assess. PLAN MOVING FORWARD: D'c planning Monitor O2 status INDIVIDUALIZED FALL PREVENTION INTERVENTIONS: Patient-specific fall risk factors per assessment: [current deficits]: BKA Assistance [level of assistance required for transfers and ambulation]: Ind Supervision [direct monitoring required during toileting and ADLs]: no Surveillance [continuous indirect monitoring]: masimo Patient-specific fall prevention interventions for sensory deficits provided, if applicable: no CARE PLAN GOAL OUTCOME EVALUATION: Problem: Adult [...] Outcome: Ongoing (Interventions Implemented as Appropriate) Problem: Coping Ineffective Goal: Effective Coping Outcome: Ongoing (Interventions Implemented as Appropriate) * Plan of Care - Stormy Colorado RN - 05/26/2022 2:15 AM EST OUTCOME EVALUATION NOTE: OUTCOME SUMMARY: Pt alert and oriented x4. VS as charted, titrated to 2LNC; sat 88-89%. C/O back pain; anxious aboutgetting medications on time, but cooperate w/ ADLs. Urinal within reach; large urine out put. All needs met at this time. PLAN MOVING FORWARD: - Monitor respiration - Maintain O2 sat - D/C planning INDIVIDUALIZED FALL PREVENTION INTERVENTIONS: Patient-specific fall risk factors per assessment: [current deficits]: generalized weakness, pain, BKA Assistance [level of assistance required for transfers and ambulation]: IND, SBA Supervision [direct monitoring required during toileting and ADLs]: eyes on Surveillance [continuous indirect monitoring]: Purposeful rounding, call light in reach, room near nurses station, [facility] Patient-specific fall prevention interventions for sensory deficits provided, if applicable: n/a CPG GOAL OUTCOME EVALUATION: * Care Management - Celine Peterson RN - 05/25/2022 3:58 PM EST OFFICE OF CARE MANAGEMENT PROGRESS NOTE LOS: Hospital Day 2 days Chart reviewed, care reviewed with primary team and at interdisciplinary rounds. Patient continues to meet inpatient level of care related to: COPD exacerbation Decision Maker: Self Functional status prior to admission: Assistive Equipment Home Environment: Others in the home: alone. Current Living Arrangements: home/apartment/condo. Accessibility Concerns: . Current Functional Ability: Independent DME used at home: oxygen, prosthesis DME Needed at Discharge: No Patient is insured through: Primary Insurance: MEDICARE Payor: MEDICARE / Plan: MEDICARE PART A & B / Product Type: *No Product type* / Secondary Insurance: MEDICAID [place] Last Physical Therapy Recommendation: with Last Occupational Therapy Recommendation: with Plan for discharge is: Home w/o Services Agency Referrals: Not Applicable Transportation: health plan transportation Barriers to discharge: None Plan going forward: Care Management will continue to follow and assist with discharge planning and coordination of care as indicated. Anticipated Date of Discharge: 05/27/2022 Celine Peterson [facility] [phone] * Plan of Care - Stormy Colorado RN - 05/25/2022 4:21 AM EST OUTCOME EVALUATION NOTE: OUTCOME SUMMARY: Pt alert and oriented x4. VS as charted, on 4LNC. An episode of desat to early 80%; nebulizer givenper MAR and titrated Oxygent. Later able to maintained sat over 88% through the night w/ 4LNC. C/O back pain; little relieved w/ medications per MAR. Anxious about getting medication on time, but cooperate w/ ADLs. Able to sleep 3-4 hours only. Urinal within reach. All needs met at this time. PLAN MOVING FORWARD: - Monitor respiration - Maintain O2 sat - D/C planning INDIVIDUALIZED FALL PREVENTION INTERVENTIONS: Patient-specific fall risk factors per assessment: [current deficits]: generalized weakness, pain, BKA Assistance [level of assistance required for transfers and ambulation]: IND, SBA Supervision [direct monitoring required during toileting and ADLs]: eyes on Surveillance [continuous indirect monitoring]: Purposeful rounding, call light in reach, room near nurses station, [facility] Patient-specific fall prevention interventions for sensory deficits provided, if applicable: n/a CPG GOAL OUTCOME EVALUATION: * Consult Note - Trenton Torres, CIRCULAR SAW OPERATOR - 2022 1:36 PM EST BIT Evaluation Referral source: Self referral Reason for referral: Opioid Use Disorder. Medication-Assisted Treatment Plan Was patient offered MOUD: No. Reason MOUD not offered?: On MAT prior to admission. Methadone Relevant history: Mr. Barros is a 46-year-old man, [employer] on disability and father of one, admitted with acute on chronic hypoxic respiratory failure. History of traumatic stress and OUD in remission with Methadone assisted therapy. Mr. Barros is A&Ox4, pleasant, and cooperative, endorses acute stress with hospitalization and acute pain, reports his mood is tired and in pain, denies opioid withdrawal symptoms and craving on outpatient dose Methadone 132 mg daily, denies AH/VH, denies SI/HI, endorses a history of significant traumatic stress, denies active PTSD symptoms. Mr. Barros reports reports having been abstinent from illicit opioids for 15+ years with Methadone assisted therapy at [facility] in [place] and /[employer] sponsorship and plans to continue. He reports his last alcohol use was 4+ years ago. [address] [place] [address] Mr. Barros endorses a history of significant traumatic stress and past engagement in Trauma-informed Therapy. The benefits of Trauma-focused EMDR Therapy were discussed and resources were provided. He was open to instruction in 4-7-8 Breathing technique and a printed resource was provided for reference. Assessment: Mr. Barros is a 46-year-old man admitted with acute on chronic hypoxic respiratory failure. History of traumatic stress and OUD in remission with Methadone assisted therapy. Currently with acute stresswith hospitalization and acute pain. Currently without opioid withdrawal symptoms and craving on outpatient dose Methadone 132 mg daily, no acute safety concerns. Motivated to remain abstinent from illicit opioids and alcohol with the ongoing clinical support of Methadone assisted therapy at [facility] and peer support through AA/[employer] sponsorship. He was encouraged to consider re-engagement in outpatient Trauma-focused Therapy. He was encouraged to practice 4-7-8 Breathing technique for acute stress coping. Interventions delivered: Consulted with care team Mindfulness Based Stress Reduction Motivational interviewing Pharmacologic treatment Resource coordination - outpatient mental health Resource coordination - substance use treatment Recommend: -Consultation between primary team and Methadone provider to coordinate potential dose titration and transfer of care at discharge. Plan: 1. Patient plans to remain abstinent from illicit opioids and alcohol with the ongoing clinical support of Methadone assisted therapy at [facility] and peer support through AA/NA sponsorship. 2. Patient was encouraged to consider re-engagement in outpatient Trauma-focused Therapy. 3. Patient was encouraged to practice 4-7-8 Breathing technique for acute stress coping. Outstanding Discharge Needs: Primary team should notify the outpatient methadone treatment program of the time of discharge and the time and amount of last dose of methadone to ensure that outpatient pharmacotherapy can be resumed without interruption. Time spent with the patient (min):30 minutes Time spent on case coordination (min): 15 minutes * Plan of Care - Narcisa Pinto RN - 2022 11:56 AM EST Problem: Adult Inpatient Plan of Care Goal: [...] Outcome: Ongoing (Interventions Implemented as Appropriate) Problem: Coping Ineffective Goal: Effective Coping Outcome: Ongoing (Interventions Implemented as Appropriate) * Plan of Care - Stormy Colorado RN - 2022 5:18 AM EST OUTCOME EVALUATION NOTE: OUTCOME SUMMARY: Pt alert and oriented x4. VS as charted, on 6L NC, maintained sat over 92% through the night. C/O back pain; little relieved w/ medications per MAR. Very anxious about getting pain medication and verbally aggressive towards staff. SOB noted only when get up to toilet. RLE, around the area ambulation appears rash that itchy, burning, pain MD aware. Urinal within reach. All needs met at this time. PLAN MOVING FORWARD: - Monitor respiration - Maintain O2 sat - D/C planning INDIVIDUALIZED FALL PREVENTION INTERVENTIONS: Patient-specific fall risk factors per assessment: [current deficits]: generalized weakness, pain, BKA Assistance [level of assistance required for transfers and ambulation]: IND, SBA Supervision [direct monitoring required during toileting and ADLs]: eyes on Surveillance [continuous indirect monitoring]: Purposeful rounding, call light in reach, room near nurses station, [facility] Patient-specific fall prevention interventions for sensory deficits provided, if applicable: n/a CPG GOAL OUTCOME EVALUATION: * Plan of Care - Maylin Becker RN - 05/23/2022 6:07 PM EST Assumed care of this pt just after 1615 in transfer from the Emergency Department. VS as charted. Upon arrival to the unit, patient was on 3.5L NC, was visibly dyspneic w/ rest, and had audible inspiratory/expiratory wheezes. Patient visibly agitated, experiencing what he described as a daily anxiety attack. Up titrated to 6L to maintain saturations >92%. MD Jamaal Gutiérrez notified. Medicated per eMAR. Personal belongings were reviewed at bedside. Patient brought 13 individual bottles of prescriptionMethadone. Quantity was verified by two RN's (TK, RN and HB, RN). Medications placed in a tamper-proof bag and stored on the unit by the stock fitter (EMMA, RN). Patient able to order dinner, and eat indepently without concern. All needs met at this time. * Initial Assessments - Karen Tao MSW - 05/23/2022 3:28 PM EST Office of Care Management Initial Assessment EDD Lantigua reviewed record and discussed patient with Care Team. Source of Information: Team, bedside nurse, medical record, and Chart Review, Other EDD Tao Introduced self/reviewed role; services accepted. Reason for Hospitalization: COPD Exacerbation Covid Vaccination Status: 1st, 2nd & booster (Moderna) Last COVID test: Lab Results Component Value Date COVID19 Not Detected 03/09/2020 [id number] Not Detected 05/23/2022 Past medical History: Past Medical History: Diagnosis Date ??? Alcohol abuse ??? Anxiety ??? COPD (chronic obstructive pulmonary disease) ??? Opioid abuse Hospitalizations Within the Past 30 Days: no previous admission in last 30 days Current Decision-Making Capacity: Self If AD's have not been completed the following surrogate would be surrogate decision maker per [place] surrogate decision making law. (Only good for 180 days) Any patient receiving care in [place] must abide by [place] law. The hierarchy for surrogate decision making is: (a) Patient???s spouse, or civil union partner or common law spouse unless there is a divorce proceeding, separation [...] (i) The agent with financial power of workers compensation defense attorney or a conservator appointed in accordance with RSA 464-A. (j) The guardian of the patient???s estate. Advance Care Planning: Attempt Cardiopulmonary Resuscitation - Inpatient <no information> -Advanced Directive: No, need to discuss Who is your DPOA-HC?: Sibling Current Coping/Education/Information Needs: Advanced Directive Current Functional Ability: Assistive Equipment Functional Status Prior to Admission: Assistive Equipment Prior ADLs & IADLs: Independent with all ADLs & IADLs Home Environment: Others in the home: alone. Current Living Arrangements: home/apartment/condo. Accessibility Concerns: . Resource / Environmental Concerns: Resource/Environmental Concerns: none Current DME: oxygen, prosthesis Home Address confirmed as: [address] [place] [id number] Social & Family Supports: All names listed below confirmed with patient as current and correct Extended Emergency Contact Information Primary Emergency Contact: ROSIE POP Mobile Relation: Sibling Current Care Provided by: self Provides Primary Care For: no one Caregiver if needed: unable to assess Quality of Family relationships: unable to assess Community Resources being provided currently: none Behavioral Health History: Anxiety Substance Use/Abuse confirmed: Social History Tobacco Use Smoking Status Every Day ??? Packs/day: 0.25 ??? Years: 30.00 ??? Pack years: 7.50 ??? Types: Cigarettes Smokeless Tobacco Never Tobacco Comments [...] points: Addiction likely Other Pertinent/Service Specific Information: Health/Prescription Coverage: Primary Insurance: MEDICARE Payor: MEDICARE / Plan: MEDICARE PART A & B / Product Type: *No Product type* / Secondary Insurance: MEDICAID [place] ONLY if patient has Medicare A&B - Does this patient have secondary insurance?: Yes ; Prescription Coverage: Yes Preferred Pharmacy: [id number] - [place], [place] - [address] [facility] [address] [place] [id number] [place]ert[place] Status: Patient is a : No Primary Care Provider confirmed: Travis Castaneda MD [phone] Patient/Caregiver Goals of Treatment: Return home when medically ready Potential Needs for Transition of Care: outpatient care Agency Referrals: Not Applicable Transportation: no concerns Transportation Anticipated: family or friend will provide, health plan transportation, public transportation Concerns to be Addressed: no discharge needs identified Assessment: Patient is admitted to Medicine service for COPD exacerbation. Plan: Inpatient admission. Discharge dispo pending. A member of the Care Management team will continue to monitor progress, follow for continuity of care and assist with transition of care planning. Karen PUAG Emergency Department Booth Manager [phone] Pager: [phone] * ED Triage - Ana Mckinnon RN - 05/23/2022 11:34 AM EST Brought in as code peggy, sating in low 80s at clinic. Put on 6L by Parascale. Pt c/o back pain 02/07. Hx COPD, current smoker. Denies fall/trauma/heavy lifting leading to the back pain. HPI (Adult) Stated Reason for Visit: Code white - o2 sats 80s History Obtained From: patient, other (see comments) (Knowthena safety) documented in this encounter Plan of Treatment Upcoming Encounters Date Type Department Care Team (Late st Contact Info) Description 03/18/2024 8:30 AM EST [place] [phone] 03/18/2024 9:30 AM EST [place] [phone] Hetal Ojeda MD [facility] [place] [address] documented as of this encounter Procedures Procedure Name Priority Date/Time Associated Diagnosis Comments HEMOGRAM Routine 06/02/2022 2:43 AM EST DIFFERENTIAL, AUTOMATED Routine 06/02/2022 2:43 AM EST HC CBC,PLT & AUTO DIFF Routine 06/02/2022 2:43 AM EST BASIC METABOLIC PANEL Routine 06/02/2022 2:43 AM EST XR ABDOMEN FLAT AND UPRIGHT Routine 06/01/2022 11:38 AM EST BASIC METABOLIC PANEL Routine 06/01/2022 6:09 AM EST URINE HOLD Routine 05/31/2022 12:56 PM EST URINALYSIS WITH REFLEX CULTURE Routine 05/31/2022 12:56 PM EST BASIC METABOLIC PANEL Routine 05/31/2022 5:39 AM EST RAPID COVID-19 PCR ([facility]) Routine 05/30/2022 2:34 PM EST BASIC METABOLIC PANEL Routine 05/30/2022 5:22 AM EST BASIC METABOLIC PANEL Routine 05/29/2022 5:43 AM EST BASIC METABOLIC PANEL Routine 05/28/2022 4:[address] ABDOMEN AND PELVIS W CONTRAST Routine 05/27/2022 1:57 PM EST BASIC METABOLIC PANEL Routine 05/27/2022 5:55 AM EST XR ABDOMEN FLAT AND UPRIGHT Routine 05/26/2022 3:12 PM EST URINALYSIS WITH REFLEX CULTURE Routine 05/26/2022 9:40 AM EST BASIC METABOLIC PANEL Routine 05/26/2022 6:37 AM EST EKG 12-LEAD Routine 05/25/2022 1:43 PM EST At risk for long QT syndrome BASIC METABOLIC PANEL Routine 05/25/2022 5:53 AM EST HC TROPONIN T STAT 05/23/2022 3:15 PM EST HC TROPONIN T STAT 05/23/2022 1:00 PM EST BLOOD GAS VENOUS POC Routine 05/23/2022 12:22 PM EST RAPID COVID-19 PCR ([facility]/APD/NL) STAT 05/23/2022 12:14 PM EST HC INFLUENZA A/B & RSV BY PCR STAT 05/23/2022 12:14 PM EST XR CHEST ONE VIEW STAT 05/23/2022 12: 08 PM EST HC TROPONIN T STAT 05/23/2022 12:00 PM EST RED TUBE HOLD STAT 05/23/2022 12:00 PM EST HEMOGRAM STAT 05/23/2022 12:00 PM EST DIFFERENTIAL, AUTOMATED STAT 05/23/2022 12:00 PM EST HC D-DIMER, QUANTITATIVE STAT 05/23/2022 12:00 PM EST GOLD TUBE HOLD STAT 05/23/2022 12:00 PM EST HC CBC,PLT & AUTO DIFF STAT 05/23/2022 12:00 PM EST HC PROBNP STAT 05/23/2022 12:00 PM EST HC MAGNESIUM, SERUM STAT 05/23/2022 1 2:00 PM EST HEPATIC FUNCTION PANEL STAT 05/23/2022 12:00 PM EST BASIC METABOLIC PANEL STAT 05/23/2022 12:00 PM EST EKG 12-LEAD STAT 05/23/2022 11:55 AM EST documented in this encounter Results * (ABNORMAL) Differential, Automated (06/02/2022 2:43 AM EST) Neutrophil % 45.5 % [facility] Neutrophil Absolute 3.68 1.70 - 6.10 x10(3)/mc L [facility] Lymph % 36.8 % [facility] Lymphocytes Abs 3.0 0.9 - 3.2 x10(3)/mc L [facility] Monocyte % 11.0 % [facility] Monocyte Abs 0.9 0.3 - 0.9 x10(3)/mc L [facility] Eos % 4.9 % [facility] Eosinophils Abs 0.4 0.0 - 0.4 x10(3)/ L [facility] Basophil % 1.2 % [facility] Baso Absolute 0.1 0.0 - 0.1 x10(3)/mc L [facility] Immature Gran % 0.60 % [facility] Comment: Immature granulocytes(IG's)percentage and absolute count will include metamyelocytes, myelocytes, and promyelocytes. Blood smears from CBCs yielding IG's will be scanned manually for concordance. If this scan disagrees with the automated IG or if promyelocytes are noted, a manual differential will be performed. Immature Gran Absolute 0.05(H) 0.00 - 0.04 x10(3)/ L [facility] Blood 06/02/2022 2:43 AM EST 06/02/2022 2:54 AM EST Narrative Resulting Agency Comment Spec In Lab Ming Rice MD HEMATOLOGY SHAINA DURAN [facility] [place] [address] * (ABNORMAL) Hemogram (06/02/2022 2:43 AM EST) White Blood Cell 8.1 4.0 - 9.5 x10(3)/mc L [facility] Red Blood Cell 5.16 4.58 - 5.54 x10(6)/ L [facility] Hemoglobin 16.1 13.7 - 16.5 g/dL [facility] Hematocrit 47.9 40.5 - 48.5 % [facility] Mean Cell Volume 92.8 82.9 - 93.1 fL [facility] Mean Cell Hemoglobin 31.2 27.5 - 32.1 pg [facility] Mean Cell Hemoglobin Concentration 33.6 32.0 - 35.7 g/dL [facility] Platelet 190 145 - 357 x10(3)/ L [facility] RDW Standard Deviation 45.3(H) 36.0 - 45.0 fL [facility] RDW coefficient of variation 13.2 11.4 - 13.8 % [facility] Mean Platelet Volume 9.5 7.6 - 12.9 fL [facility] NRBC% auto 0.0 % [facility] NRBC Absolute 0.000 0.000 - 0.000 x10(3)/mc L [facility] Blood 06/02/2022 2:43 AM EST 06/02/2022 2:54 AM EST Narrative Resulting Agency Comment Spec In Lab Ming Rice MD HEMATOLOGY SHAINA DURAN [facility] [place] [address] * Basic Metabolic Panel (non-fasting) (06/02/2022 2:43 AM EST) Glucose 101 65 - 199 mg/dL [facility] Comment:Diabetes: >=200 mg/d L plus symptoms Blood Urea Nitrogen 20 10 - 20 mg/dL [facility] Creatinine 0.81 0.80 - 1.50 mg/dL [facility] Sodium 139 135 - 145 mmol/L [facility] Potassium 4.4 3.5 - 5.0 mmol/L [facility] Comment: Please note: ??Patients with WBC >100,000 may have falsely elevated Potassium levels. ??For accurate Potassium quantification in these patients send serum separator tube (gold top) for subsequent determinations. ??Contact the Clinical Chemistry Laboratory if there are any questions. Chloride 102 98 - 107 mmol/L [facility] Carbon Dioxide 26 22 - 31 mmol/L [facility] Anion Gap 11 5 - 15 mmol/L [facility] Calcium 9.3 8.5 - 10.5 mg/dL [facility] Est Glomerular Filtration Rate 108 >=60 mL/min/1. 73 m?? [facility] Comment: This patient's estimated GFR was [...] and symptoms in addition to eGFR. Blood 06/02/2022 2:43 AM EST 06/02/2022 2:54 AM EST Narrative Resulting Agency Comment Spec In Lab Lamberto Clark MD CHEMISTRY ORDERABLES [facility] [place] [address] * XR Abdomen Flat & Upright (06/01/2022 11:38 AM EST) Anatomical Region Laterality Modality Abdomen N/A Digital Radiogra phy Impressions 06/01/2022 1:38 PM EST Nonobstructive bowel gas pattern with moderate to large colonic fecal burden. Thank you for letting us participate in the care of this patient. ??If you are a health care provider and have any questions regarding this report, please contact the number below. ??For patients who have questions please contact the health healthcare translator that requested your imaging first. ? Electronically signed by: CARLOS ALBERTO CARLSON MD, [facility] ([phone]), at 06/01/2022 1:38 PM Narrative 06/01/2022 1:38 PM EST EXAMINATION: XR ABDOMEN FLAT AND UPRIGHT CLINICAL HISTORY: monitor degree of constipation TECHNIQUE: AP upright and supine radiographs of the abdomen COMPARISON: CT abdomen and pelvis 05/27/2022 FINDINGS: No free air. No dilated loops of bowel. Moderate to large burden of fecal material throughout the colon, the overall burden of which does not appear substantially changed from the recent CT exam. Imaged lung bases are clear. IVC filter in unchanged position. No acute osseous findings. Stable sclerotic lesion in the intertrochanteric left femur, without aggressive features, possible enchondroma or bone infarct. Procedure Note Carlos Alberto Carlson MD - 06/01/2022 EXAMINATION: XR ABDOMEN FLAT AND UPRIGHT CLINICAL HISTORY: monitor degree of constipation TECHNIQUE: AP upright and supine radiographs of the abdomen COMPARISON: CT abdomen and pelvis 05/27/2022 FINDINGS: No free air. No dilated loops of bowel. Moderate to large burden offecal material throughout the colon, the overall burden of which does notappear substantially changed from the recent CT exam. Imaged lung bases areclear. IVC filter in unchanged position. No acute osseous findings. Stable scleroticlesion in the intertrochanteric left femur, without aggressive features,possible enchondroma or bone infarct. IMPRESSION Nonobstructive bowel gas pattern with moderate to large colonic fecalburden. Thank you for letting us participate in the care of this patient. If youare a health care provider and have any questions regarding this report,please contact the number below. For patients who have questions please contactthe health healthcare translator that requested your imaging first. Ming Rice MD IMG DX ORDERABL ES * Basic Metabolic Panel (non-fasting) (06/01/2022 6:09 AM EST) Glucose 92 65 - 199 mg/dL [facility] Comment:Diabetes: >=200 mg/d L plus symptoms Blood Urea Nitrogen 19 10 - 20 mg/dL [facility] Creatinine 0.80 0.80 - 1.50 mg/dL [facility] Sodium 137 135 - 145 mmol/L [facility] Potassium 4.5 3.5 - 5.0 mmol/L [facility] Comment: Please note: ??Patients with WBC >100,000 may have falsely elevated Potassium levels. ??For accurate Potassium quantification in these patients send serum separator tube (gold top) for subsequent determinations. ??Contact the Clinical Chemistry Laboratory if there are any questions. Chloride 100 98 - 107 mmol/L [facility] Carbon Dioxide 28 22 - 31 mmol/L [facility] Anion Gap 9 5 - 15 mmol/L [facility] Calcium 9.1 8.5 - 10.5 mg/dL [facility] Est Glomerular Filtration Rate 108 >=60 mL/min/1. 73 m?? [facility] Comment: This patient's estimated GFR was [...] and symptoms in addition to eGFR. Blood 06/01/2022 6:09 AM EST 06/01/2022 6:37 AM EST Narrative Resulting Agency Comment Spec In Lab Lamberto Clark MD CHEMISTRY ORDERABLES Performing Organization Address [facility] Co de Phone Number [facility] [place] [phone] * Urine Hold (05/31/2022 12:56 PM EST) Hold, Urine Sample in lab. [facility] Urine Urine / Unknown 05/31/2022 1 2:56 PM EST 05/31/2022 1:21 PM EST Js Bedolla MD URINE ORDERABLES Performing Organization Address [facility] Co de Phone Number [facility] [place] [phone] * Urinalysis with reflex Culture (05/31/2022 12:56 PM EST) Glucose, Urine Dipstick Negative Negative mg/dL [facility] Protein, Urine Dipstick Negative Negative mg/dL [facility] Bilirubin, Urine Dipstick Negative Negative mg/dL [facility] Comment: Clinical correlation required for positive Urine Bilirubin results as false positive may occur with some drugs and drug related products. If a false positive is suspected a serum total bilirubin should be considered if clinically indicated. Urobilinogen, Urine Dipstick Normal Normal mg/dL [facility] pH, Urn (dipstick) 7.5 5.0 - 8.0 [facility] Blood, Urine Dipstick Negative Negative mg/dL [facility] Ketone, Urine Dipstick Negative Negative mg/dL [facility] Nitrite, Urine Dipstick Negative Negative [facility] Leukocytes, Urine Dipstick Negative Negative mcL [facility] Appearance, Urine Dipstick Clear Clear [facility] Specific [place] Urine Automated 1.015 1.005 - 1.030 [facility] Color, Urine Dipstick Yellow Yellow [facility] Reflex to Culture No [facility] Clean Catch Urine 05/31/2022 12:56 PM EST 05/31/2022 1:20 PM EST Narrative Resulting Agency Comment Spec In Lab Ming Rice MD URINE ORDERABLE S Performing Organization Address City/State/[facility] Co de Phone Number [facility] [place] [address] * (ABNORMAL) Basic Metabolic Panel (non-fasting) (05/31/2022 5:39 AM EST) Glucose 67 65 - 199 mg/dL [facility] Comment:Diabetes: >=200 mg/d L plus symptoms Blood Urea Nitrogen 21(H) 10 - 20 mg/dL [facility] Creatinine 0.77(L) 0.80 - 1.50 mg/dL [facility] Sodium 139 135 - 145 mmol/L [facility] Potassium 4.3 3.5 - 5.0 mmol/L [facility] Comment: Please note: ??Patients with WBC >100,000 may have falsely elevated Potassium levels. ??For accurate Potassium quantification in these patients send serum separator tube (gold top) for subsequent determinations. ??Contact the Clinical Chemistry Laboratory if there are any questions. Chloride 101 98 - 107 mmol/L [facility] Carbon Dioxide 28 22 - 31 mmol/L [facility] Anion Gap 10 5 - 15 mmol/L [facility] Calcium 8.9 8.5 - 10.5 mg/dL [facility] Est Glomerular Filtration Rate 110 >=60 mL/min/1. 73 m?? [facility] Comment: This patient's estimated GFR was [...] and symptoms in addition to eGFR. Blood 05/31/2022 5:39 AM EST 05/31/2022 5:58 AM EST Narrative Resulting Agency Comment Spec In Lab Lamberto Clark MD CHEMISTRY ORDERABLES [facility] [place] [address] * COVID-19 PCR (05/30/2022 2:34 PM EST) SARS-CoV-2 RNA (Rapid) Not Detected Not Detected [facility] Comment: This result should be interpreted in combination with the clinical observations, patient history and epidemiological information. For testing of asymptomatic individuals, assay performance characteristics and clinical utility have not been evaluated. Testing for SARS-CoV-2 (Severe acute respiratory syndrome coronavirus 2, formerly known as 2019 novel coronavirus or 2019-nCoV) to aid in the diagnosis of COVID-19 is performed using the Simplexa COVID-19 Direct Assay by [employer] as authorized by the FDA issued Emergency Use Authorization (EUA). This assay is intended for In-vitro Diagnostic (IVD) use with nasopharyngeal swabs collected from individuals meeting the CDC criteria for testing. The assay is performed based on the instructions for use and additional guidance provided by the FDA. Testing is performed in the Microbiology Laboratory within the Department of Pathology and Laboratory Medicine at [facility], certified under the Clinical Laboratory Improvement Amendments of 1988 (CLIA), 42 U.S.C. section 263a, to perform high complexity tests. Assay performance has been verified according to clinical laboratory regulatory requirements. Test results are provided above. A result of Not Detected indicates that the viral RNA target is not present but does not preclude SARS-CoV-2 infection. False negative results may occur if a specimen is improperly collected, transported or handled; if amplification inhibitors are present; or if inadequate numbers of viral particles are present in the specimen. A result of Detected suggests a current or recent infection and the patient is presumed to be infected. Positive and negative predictive values for this test are highly dependent on disease prevalence. A result of Invalid indicates the inability to conclusively determine the presence or absence of SARS-CoV-2 RNA in the sample which can be due to a variety of factors. Recollection is recommended in the case of an invalid result. CDC COVID-19 criteria for testing on human specimens and clinical management guidance information are available at the CDC Coronavirus Disease 2019 (COVID-19) webpage under Information for Healthcare Professionals (https://www.cdc.gov/coronavirus/2019-ncov/hcp/index.html). Additional information about this and other EUA tests can be found in provider and patient fact sheets at the following FDA website: https://www.fda.gov/medical-devices/ikeccdghylm-xctzhbh-0696-ykube-26-rnzrlwivw- use-a rwaoehuauizym-lxlvkks-vzyrnbc/weack-mctameemese-wpog SARS-CoV-2 Source RETREADER Swab [facility] Nasopharyngeal Swab 05/30/19 2:34 PM EST 05/30/2022 4:02 PM EST Comment:Symptoms->Fever / Re spiratory Symptoms Narrative Resulting Agency Comment Spec In Lab Ming Rice MD MICROBIOLOGY - GENERAL ORDERABLES [facility] [place] [address] * (ABNORMAL) Basic Metabolic Panel (non-fasting) (05/30/2022 5:22 AM EST) Glucose 89 65 - 199 mg/dL [facility] Comment:Diabetes: >=200 mg/d L plus symptoms Blood Urea Nitrogen 21(H) 10 - 20 mg/dL [facility] Creatinine 0.82 0.80 - 1.50 mg/dL [facility] Sodium 140 135 - 145 mmol/L [facility] Potassium 4.3 3.5 - 5.0 mmol/L [facility] Comment: Please note: ??Patients with WBC >100,000 may have falsely elevated Potassium levels. ??For accurate Potassium quantification in these patients send serum separator tube (gold top) for subsequent determinations. ??Contact the Clinical Chemistry Laboratory if there are any questions. Chloride 102 98 - 107 mmol/L [facility] Carbon Dioxide 28 22 - 31 mmol/L [facility] Anion Gap 10 5 - 15 mmol/L [facility] Calcium 8.9 8.5 - 10.5 mg/dL [facility] Est Glomerular Filtration Rate 108 >=60 mL/min/1. 73 m?? [facility] Comment: This patient's estimated GFR was [...] and symptoms in addition to eGFR. Blood 05/30/2022 5:22 AM EST 05/30/2022 5:42 AM EST Narrative Resulting Agency Comment Spec In Lab Lamberto Clark MD CHEMISTRY ORDERABLES [facility] [place] [address] * (ABNORMAL) Basic Metabolic Panel (non-fasting) (05/29/2022 5:43 AM EST) Glucose 86 65 - 199 mg/dL [facility] Comment:Diabetes: >=200 mg/d L plus symptoms Blood Urea Nitrogen 21(H) 10 - 20 mg/dL [facility] Creatinine 0.80 0.80 - 1.50 mg/dL [facility] Sodium 140 135 - 145 mmol/L [facility] Potassium 4.3 3.5 - 5.0 mmol/L [facility] Comment: Please note: ??Patients with WBC >100,000 may have falsely elevated Potassium levels. ??For accurate Potassium quantification in these patients send serum separator tube (gold top) for subsequent determinations. ??Contact the Clinical Chemistry Laboratory if there are any questions. Chloride 104 98 - 107 mmol/L [facility] Carbon Dioxide 27 22 - 31 mmol/L [facility] Anion Gap 9 5 - 15 mmol/L [facility] Calcium 8.6 8.5 - 10.5 mg/dL [facility] Est Glomerular Filtration Rate 108 >=60 mL/min/1. 73 m?? [facility] Comment: This patient's estimated GFR [...] and symptoms in addition to eGFR. Blood 05/29/2022 5:43 AM EST 05/29/2022 6:05 AM EST Narrative Resulting Agency Comment Spec In Lab Lamberto Clark MD CHEMISTRY ORDERABLES [facility] [place] [address] * (ABNORMAL) Basic Metabolic Panel (non-fasting) (05/28/2022 4:07 AM EST) Glucose 119 65 - 199 mg/dL [facility] Comment:Diabetes: >=200 mg/d L plus symptoms Blood Urea Nitrogen 21(H) 10 - 20 mg/dL [facility] Creatinine 0.69(L) 0.80 - 1.50 mg/dL [facility] Sodium 138 135 - 145 mmol/L [facility] Potassium 3.9 3.5 - 5.0 mmol/L [facility] Comment: Please note: ??Patients with WBC >100,000 may have falsely elevated Potassium levels. ??For accurate Potassium quantification in these patients send serum separator tube (gold top) for subsequent determinations. ??Contact the Clinical Chemistry Laboratory if there are any questions. Chloride 102 98 - 107 mmol/L [facility] Carbon Dioxide 24 22 - 31 mmol/L [facility] Anion Gap 12 5 - 15 mmol/L [facility] Calcium 9.0 8.5 - 10.5 mg/dL [facility] Est Glomerular Filtration Rate 113 >=60 mL/min/1. 73 m?? [facility] Comment: This patient's estimated GFR [...] and symptoms in addition to eGFR. Blood 05/28/2022 4:07 AM EST 05/28/2022 4:18 AM EST Narrative Resulting Agency Comment Spec In Lab Lamberto Clark MD CHEMISTRY ORDERABLES [facility] [place] [address] * CT Abdomen & Pelvis w Contrast (05/27/2022 1:57 PM EST) Anatomical Region Laterality Modality Abdomen, Pelvis Computed Tomogra phy Impressions 05/27/2022 4:25 PM EST 1. ??No evidence of bowel obstruction. Fecalization of the terminal ileum can be seen with slow motility. 2. ??Chronic scarring and emphysematous change in the partially imaged lower chest. I have personally reviewed the image(s) and the resident's interpretation and agree with the findings, José Miguel Tamayo MD at 05/27/2022 4:25 PM Thank you for letting us participate in the care of this patient. ??If you are a health care provider and have any questions regarding this report, please contact the number below. ??For patients who have questions please contact the health healthcare translator that requested your imaging first. ? Electronically signed by: José Miguel Tamayo MD, [facility] ([phone]), at 05/27/2022 4:25 PM Narrative 05/27/2022 4:25 PM EST EXAMINATION: CT ABDOMEN AND PELVIS W CONTRAST CLINICAL HISTORY: Better evaluate possible partial small bowel obstruction on KUB TECHNIQUE: Helical CT of the abdomen and pelvis was performed following the intravenous administration of 107.0 ml of OMNIPAQUE 350.00 mg/ml. Oral contrast was administered. COMPARISON: CT chest abdomen pelvis 09/14/2020 FINDINGS: Lower chest: Linear atelectasis and reticular nodular opacities. Scattered calcified granulomas. Liver: Normal size and attenuation without lesions. Bile ducts: Extrahepatic and mild central intrahepatic ductal dilation, unchanged from 2020. Gallbladder: No calcified gallstones. Normal caliber wall. Pancreas: Normal attenuation without ductal dilatation. Spleen: Normal. Adrenals: Normal. Kidneys: Right renal cyst. Symmetric enhancement. No hydronephrosis. Urinary Bladder: Normal. Vasculature: No abdominal aortic aneurysm. The portal vein is patent. Infrarenal IVC filter with extraluminal struts. Lymph Nodes: No enlarged lymph nodes. Bowel: Nondilated small and large bowel. Moderate amount of stool within the colon. Enteric contrast passes into the distal ileum. There is fecalization of the terminal ileum which can be seen in setting of slow motility. Peritoneum and mesentery: No ascites, free air, or loculated fluid collection. No mesenteric inflammation. Abdominal wall: Fat stranding surrounding a 1.5 x 3.5 cm collection in the right hip subcutaneous fat overlying the greater trochanter. Reproductive organs: Normal. Osseous structures: Unchanged left intertrochanteric lesion, possible enchondroma. Procedure Note José Miguel Tamayo MD - 05/27/2022 EXAMINATION: CT ABDOMEN AND PELVIS W CONTRAST CLINICAL HISTORY: Better evaluate possible partial small bowel obstructionon KUB TECHNIQUE: Helical CT of the abdomen and pelvis was performed followingthe intravenous administration of 107.0 ml of OMNIPAQUE 350.00 mg/ml. Oralcontrast was administered. COMPARISON: CT chest abdomen pelvis 09/14/2020 FINDINGS: Lower chest: Linear atelectasis and reticular nodular opacities.Scattered calcified granulomas. Liver: Normal size and attenuation without lesions. Bile ducts: Extrahepatic and mild central intrahepatic ductal dilation, unchanged from 2020. Gallbladder: No calcified gallstones. Normal caliber wall. Pancreas: Normal attenuation without ductal dilatation. Spleen: Normal. Adrenals: Normal. Kidneys: Right renal cyst. Symmetric enhancement. No hydronephrosis. Urinary Bladder: Normal. Vasculature: No abdominal aortic aneurysm. The portal vein is patent.Infrarenal IVC filter with extraluminal struts. Lymph Nodes: No enlarged lymph nodes. Bowel: Nondilated small and large bowel. Moderate amount of stool withinthe colon. Enteric contrast passes into the distal ileum. There isfecalization of the terminal ileum which can be seen in setting of slow motility. Peritoneum and mesentery: No ascites, free air, or loculated fluidcollection. No mesenteric inflammation. Abdominal wall: Fat stranding surrounding a 1.5 x 3.5 cm collection in theright hip subcutaneous fat overlying the greater trochanter. Reproductive organs: Normal. Osseous structures: Unchanged left intertrochanteric lesion, possible enchondroma. IMPRESSION 1. No evidence of bowel obstruction. Fecalization of the terminal ileumcan be seen with slow motility. 2. Chronic scarring and emphysematous change in the partially imagedlower chest. I have personally reviewed the image(s) and the resident's interpretationand agree with the findings, José Miguel Tamayo MD at 05/27/2022 4:25 PM Thank you for letting us participate in the care of this patient. If youare a health care provider and have any questions regarding this report,please contact the number below. For patients who have questions please contactthe health healthcare translator that requested your imaging first. Electronically signed by: José Miguel Tamayo MD, [facility]([phone]), at 05/27/2022 4:25 PM Lamberto Clark MD IMG CT ORDERABLES * (ABNORMAL) Basic Metabolic Panel (non-fasting) (05/27/2022 5:55 AM EST) Glucose 106 65 - 199 mg/dL [facility] Comment:Diabetes: >=200 mg/d L plus symptoms Blood Urea Nitrogen 16 10 - 20 mg/dL [facility] Creatinine 0.69(L) 0.80 - 1.50 mg/dL [facility] Sodium 139 135 - 145 mmol/L [facility] Potassium 3.9 3.5 - 5.0 mmol/L [facility] Comment: Please note: ??Patients with WBC >100,000 may have falsely elevated Potassium levels. ??For accurate Potassium quantification in these patients send serum separator tube (gold top) for subsequent determinations. ??Contact the Clinical Chemistry Laboratory if there are any questions. Chloride 103 98 - 107 mmol/L [facility] Carbon Dioxide 25 22 - 31 mmol/L [facility] Anion Gap 11 5 - 15 mmol/L [facility] Calcium 8.7 8.5 - 10.5 mg/dL [facility] Est Glomerular Filtration Rate 113 >=60 mL/min/1. 73 m?? [facility] Comment: This patient's estimated GFR was [...] and symptoms in addition to eGFR. Blood 05/27/2022 5:55 AM EST 05/27/2022 6:13 AM EST Narrative Resulting Agency Comment Spec In Lab Lamberto Clark MD CHEMISTRY ORDERABLES [facility] [place] [address] * XR Abdomen Flat & Upright (05/26/2022 3:12 PM EST) Anatomical Region Laterality Modality Abdomen N/A Digital Radiogra phy Impressions 05/26/2022 3:32 PM EST Prominent air-filled loops of colon as well as air-fluid levels in the LEFT descending colon. Mid abdominal dilated air-filled small bowel loops concerning for partial small bowel obstruction. There is a paucity of distal stool and gas present. Consider CT abdomen pelvis for further evaluation. Thank you for letting us participate in the care of this patient. ??If you are a health care provider and have any questions regarding this report, please contact the number below. ??For patients who have questions please contact the health healthcare translator that requested your imaging first. ? Narrative 05/26/2022 3:32 PM EST EXAMINATION: XR ABDOMEN FLAT AND UPRIGHT CLINICAL HISTORY: Evaluate for SBO, COPD acute exacerbation TECHNIQUE: AP and upright views abdomen COMPARISON: Prior CT of the chest abdomen pelvis 09/14/2020 and prior chest radiograph 05/23/2022 FINDINGS: No evidence for subdiaphragmatic free air. Elevated LEFT hemidiaphragm with subsegmental atelectasis. There are air-filled loops of colon which are prominent. Air-fluid levels along the LEFT descending colon. Short air-fluid levels in the mid abdomen appears to be a dilated loop of small bowel prominent. Decreased gas and stool distally. IVC filter with apex at L2. No distal colonic gas or stool is present. Findings are suspect for a partial small bowel obstruction. No other bone or soft tissue abnormalities noted. Mild degenerative change in the RIGHT and LEFT hips partially imaged. Procedure Note Suzan Aly MD - 05/26/2022 EXAMINATION: XR ABDOMEN FLAT AND UPRIGHT CLINICAL HISTORY: Evaluate for SBO, COPD acute exacerbation TECHNIQUE: AP and upright views abdomen COMPARISON: Prior CT of the chest abdomen pelvis 09/14/2020 and priorchest radiograph 05/23/2022 FINDINGS: No evidence for subdiaphragmatic free air. Elevated LEFT hemidiaphragmwith subsegmental atelectasis. There are air-filled loops of colon which are prominent. Air-fluid levels along the LEFT descending colon. Shortair-fluid levels in the mid abdomen appears to be a dilated loop of small bowelprominent. Decreased gas and stool distally. IVC filter with apex at L2. No distal colonic gas or stool is present.Findings are suspect for a partial small bowel obstruction. No other bone or softtissue abnormalities noted. Mild degenerative change in the RIGHT and LEFT hips partially imaged. IMPRESSION Prominent air-filled loops of colon as well as air-fluid levels in theLEFT descending colon. Mid abdominal dilated air-filled small bowel loopsconcerning for partial small bowel obstruction. There is a paucity of distal stooland gas present. Consider CT abdomen pelvis for further evaluation. Thank you for letting us participate in the care of this patient. If youare a health care provider and have any questions regarding this report,please contact the number below. For patients who have questions please contactthe health healthcare translator that requested your imaging first. Lamberto Clark MD IMG DX ORDERABLES * Urinalysis with reflex Culture (05/26/2022 9:40 AM EST) Glucose, Urine Dipstick Negative Negative mg/dL [facility] Protein, Urine Dipstick Negative Negative mg/dL [facility] Bilirubin, Urine Dipstick Negative Negative mg/dL [facility] Comment: Clinical correlation required for positive Urine Bilirubin results as false positive may occur with some drugs and drug related products. If a false positive is suspected a serum total bilirubin should be considered if clinically indicated. Urobilinogen, Urine Dipstick Normal Normal mg/dL [facility] pH, Urn (dipstick) 5.5 5.0 - 8.0 [facility] Blood, Urine Dipstick Negative Negative mg/dL [facility] Ketone, Urine Dipstick Negative Negative mg/dL [facility] Nitrite, Urine Dipstick Negative Negative [facility] Leukocytes, Urine Dipstick Negative Negative mcL [facility] Appearance, Urine Dipstick Clear Clear [facility] Specific [place] Urine Automated 1.015 1.005 - 1.030 [facility] Color, Urine Dipstick Yellow Yellow [facility] Reflex to Culture No [facility] Clean Catch Urine 05/26/2022 9:40 AM EST 05/26/2022 9:53 AM EST Narrative Resulting Agency Comment Spec In Lab Lamberto Clark MD URINE ORDERABLES Performing Organization Address City/State/[facility] Co de Phone Number [facility] [place] [address] * (ABNORMAL) Basic Metabolic Panel (non-fasting) (05/26/2022 6:37 AM EST) Glucose 85 65 - 199 mg/dL [facility] Comment:Diabetes: >=200 mg/d L plus symptoms Blood Urea Nitrogen 14 10 - 20 mg/dL [facility] Creatinine 0.65(L) 0.80 - 1.50 mg/dL [facility] Sodium 137 135 - 145 mmol/L [facility] Potassium 4.5 3.5 - 5.0 mmol/L [facility] Comment: Please note: ??Patients with WBC >100,000 may have falsely elevated Potassium levels. ??For accurate Potassium quantification in these patients send serum separator tube (gold top) for subsequent determinations. ??Contact the Clinical Chemistry Laboratory if there are any questions. Chloride 103 98 - 107 mmol/L [facility] Carbon Dioxide 24 22 - 31 mmol/L [facility] Anion Gap 10 5 - 15 mmol/L [facility] Calcium 8.6 8.5 - 10.5 mg/dL [facility] Est Glomerular Filtration Rate 116 >=60 mL/min/1. 73 m?? [facility] Comment: This patient's estimated GFR was [...] and symptoms in addition to eGFR. Blood 05/26/2022 6:37 AM EST 05/26/2022 6:42 AM EST Narrative Resulting Agency Comment Spec In Lab Lamberto Clark MD CHEMISTRY ORDERABLES Performing Organization Address [facility] Co de Phone Number [facility] [place] [address] * EKG 12 Lead (05/25/2022 1:43 PM EST) Ventricular rate 80 BPM MUSE SYSTEM Atrial Rate 80 BPM MUSE SYSTEM P-R Interval 130 ms MUSE SYSTEM QRS Duration 98 ms MUSE SYSTEM Q-T Interval 364 ms MUSE SYSTEM QTC Calculated (Bezet) 419 ms MUSE SYSTEM Calculated P Holliday 40 degrees MUSE SYSTEM Calculated R Holliday 72 degrees MUSE SYSTEM Calculated T Holliday 69 degrees MUSE SYSTEM INTERPRETATION Normal sinus rhythm Normal ECG When compared with ECG of 23-MAY-2022 11:55, No significant change was found Confirmed by MD RORO, HO ([id number]) on 05/25/2022 11:04:46 PM MUSE SYSTEM 05/25/2022 1:43 PM EST 05/25/2022 11:04 PM EST Lamberto Clark MD ECG ORDERABLES Performing Organization Address [facility] de Phone Number MUSE SYSTEM * (ABNORMAL) Basic Metabolic Panel (non-fasting) (05/25/2022 5:53 AM EST) Glucose 80 65 - 199 mg/dL [facility] Comment:Diabetes: >=200 mg/d L plus symptoms Blood Urea Nitrogen 16 10 - 20 mg/dL [facility] Creatinine 0.77(L) 0.80 - 1.50 mg/dL [facility] Sodium 140 135 - 145 mmol/L [facility] Potassium 4.0 3.5 - 5.0 mmol/L [facility] Comment: Please note: ??Patients with WBC >100,000 may have falsely elevated Potassium levels. ??For accurate Potassium quantification in these patients send serum separator tube (gold top) for subsequent determinations. ??Contact the Clinical Chemistry Laboratory if there are any questions. Chloride 103 98 - 107 mmol/L [facility] Carbon Dioxide 28 22 - 31 mmol/L [facility] Anion Gap 9 5 - 15 mmol/L [facility] Calcium 9.1 8.5 - 10.5 mg/dL [facility] Est Glomerular Filtration Rate 110 >=60 mL/min/1. 73 m?? [facility] Comment: This patient's estimated GFR was [...] and symptoms in addition to eGFR. Blood 05/25/2022 5:53 AM EST 05/25/2022 6:17 AM EST Narrative Resulting Agency Comment Spec In Lab Lamberto Clark MD CHEMISTRY ORDERABLES Performing Organization Address City/State/[facility] Co de Phone Number [facility] [place] [address] * Troponin (05/23/2022 3:15 PM EST) Troponin-T, High Sensitivity 9 <=22 ng/L [facility] Comment: This patient's troponin T concentration [...] troponin value can be found in the [facility] Test Catalog Troponin - [facility] Test Catalog Reference: Fourth [place] Definition of Myocardial Infarction. Journal of the [place] [employer] 2018;72:3962-7397 Blood 05/23/2022 3:15 PM EST 05/23/2022 3:25 PM EST Narrative Resulting Agency Comment Spec In Lab Joy Benavides CIRCULAR SAW OPERATOR CHEMISTRY ORDERAB LES [facility] [place] [address] * Troponin (05/23/2022 1:00 PM EST) Troponin-T, High Sensitivity 8 <=22 ng/L [facility] Comment: This patient's troponin T concentration [...] troponin value can be found in the [facility] Test Catalog Troponin - [facility] Test Catalog Reference: Fourth [place] Definition of Myocardial Infarction. Journal of the [place] [employer] 2018;72:2232-9378 Blood 05/23/2022 1:00 PM EST 05/23/2022 1:11 PM EST Narrative Resulting Agency Comment Spec In Lab Joy Benavides CIRCULAR SAW OPERATOR CHEMISTRY ORDERAB LES [facility] [place] [address] * (ABNORMAL) BLOOD GAS 2 VENOUS (05/23/2022 12:22 PM EST) pH, Venous 7.30(L) 7.32 - 7.42 [facility] PCO2, Venous 68(Critica l) 41 - 51 mmHg [facility] Comment: Critical notified to Joy Benavides by instrument lens grinder immediately following run time. PO2, Venous 48(H) 25 - 40 mmHg [facility] Bicarbonate, Venous 32.7 mmol/L [facility] Base Excess, Venous 6.3 mmol/L [facility] Hgb Blood Gas 17.8(H) 13.7 - 16.5 g/dL [facility] Oxyhemoglobin, Venous 78.8 % [facility] Carboxyhemoglob in, Venous 4.0 % [facility] Comment: Nonsmokers: 0.5-1.5% COHB Smokers: Variable, but usually less than 10% Toxic: 20-30% COHB Lethal: Greater than 60% COHB Methemoglobin, Venous 0.4 <=1.5 % [facility] Na Whole Blood 141 135 - 145 mmol/L [facility] K Whole Blood 4.0 3.5 - 5.0 mmol/L [facility] Comment: Please note: Patients with WBC >100,000 may have falsely elevated Potassium levels. Contact the Clinical Chemistry Laboratory if there are any questions. ICa Whole Blood 1.19 1.15 - 1.33 mmol/L [facility] Comment: Note: ??Total bilirubin higher than 20 mg/dL may lead to falsely low ionized calcium. CL Whole Blood 99 98 - 107 mmol/L [facility] Gluc Whole Bld 89 65 - 199 mg/dL [facility] Comment:Diabetes: >=200 mg/d L plus symptoms Lactate WB 0.8 0.5 - 2.2 mmol/L [facility] Blood Gas Source Venous [facility] Blood 05/23/2022 12:2 2 PM EST 05/23/2022 12:22 PM EST Md Emergency Dept POINT OF CARE TEST ORDERABLES Performing Organization Address City/State/[facility] Co de Phone Number [facility] [place] [address] * COVID-19 PCR (05/23/2022 12:14 PM EST) SARS-CoV-2 RNA (Rapid) Not Detected Not Detected [facility] Comment: This result should be interpreted in combination with the clinical observations, patient history and epidemiological information. For testing of asymptomatic individuals, assay performance characteristics and clinical utility have not been evaluated. Testing for SARS-CoV-2 (Severe acute respiratory syndrome coronavirus 2, formerly known as 2019 novel coronavirus or 2019-nCoV) to aid in the diagnosis of COVID-19 is performed using the Simplexa COVID-19 Direct Assay by [employer] as authorized by the FDA issued Emergency Use Authorization (EUA). This assay is intended for In-vitro Diagnostic (IVD) use with nasopharyngeal swabs collected from individuals meeting the CDC criteria for testing. The assay is performed based on the instructions for use and additional guidance provided by the FDA. Testing is performed in the Microbiology Laboratory within the Department of Pathology and Laboratory Medicine at [facility], certified under the Clinical Laboratory Improvement Amendments of 1988 (CLIA), 42 U.S.C. section 263a, to perform high complexity tests. Assay performance has been verified according to clinical laboratory regulatory requirements. Test results are provided above. A result of Not Detected indicates that the viral RNA target is not present but does not preclude SARS-CoV-2 infection. False negative results may occur if a specimen is improperly collected, transported or handled; if amplification inhibitors are present; or if inadequate numbers of viral particles are present in the specimen. A result of Detected suggests a current or recent infection and the patient is presumed to be infected. Positive and negative predictive values for this test are highly dependent on disease prevalence. A result of Invalid indicates the inability to conclusively determine the presence or absence of SARS-CoV-2 RNA in the sample which can be due to a variety of factors. Recollection is recommended in the case of an invalid result. CDC COVID-19 criteria for testing on human specimens and clinical management guidance information are available at the CDC Coronavirus Disease 2019 (COVID-19) webpage under Information for Healthcare Professionals (https://www.cdc.gov/coronavirus/2019-ncov/hcp/index.html). Additional information about this and other EUA tests can be found in provider and patient fact sheets at the following FDA website: https://www.fda.gov/medical-devices/hyfcrjgbacr-lpfnrdw-5622-tqjio-23-wkynxcakz- use-a pthzbwrponbmm-fijmgez-sbiqvyy/vxkgu-fxphoynmwnv-cnbp SARS-CoV-2 Source RETREADER Swab [facility] Nasopharyngeal Swab 05/23/19 12:14 PM EST 05/23/2022 1:43 PM EST Comment:Symptoms->Fever / Re spiratory Symptoms Narrative Resulting Agency Comment Spec In Lab Joy Benavides APRN MICROBIOLOGY - GE NERAL ORDERABLES Performing Organization Address City/[facility]/[place] [address] * Rapid Influenza A/B and RSV PCR ([facility]CGP/APD/[place]) (05/23/2022 12:14 PM EST) Influenza A PCR Not Detected Not Detected [facility] Influenza B PCR Not Detected Not Detected [facility] RSV PCR Not Detected Not Detected [facility] Resp PCR Source RETREADER Swab [facility] Nasopharyngeal Swab 05/23/19 12:14 PM EST 05/23/2022 1:43 PM EST Narrative Resulting Agency Comment Spec In Lab Joy Benavides APRN MICROBIOLOGY - [place] [address] * XR Chest One View (05/23/2022 12:08 PM EST) Anatomical Region Laterality Modality Chest N/A Digital Radiogra phy Impressions 05/23/2022 12:16 PM EST No acute cardiopulmonary process identified. Thank you for letting us participate in the care of this patient. ??If you are a health care provider and have any questions regarding this report, please contact the number below. ??For patients who have questions please contact the health healthcare translator that requested your imaging first. ? Narrative 05/23/2022 12:16 PM EST EXAMINATION: XR CHEST ONE VIEW CLINICAL HISTORY: shortness of breath, cough, hx of COPD new onset hypoxia TECHNIQUE: Single portable AP 80 degrees upright chest radiograph 05/23/2022 at 1150 hours COMPARISON: Noncontrast CT chest 09/15/2021 Outside institution portable AP chest radiographs 04/08/2020 FINDINGS: Monitoring leads and wires overlie the chest. Scattered areas of subsegmental atelectasis/scarring, greatest at the right lung base. Small calcified granulomata in the left mid and lower lung redemonstrated. No focal airspace opacity is seen. The cardiomediastinal silhouette and hilar contours are unchanged. No pulmonary edema, visualized pleural effusion or pneumothorax. No acute osseous abnormality is seen. Procedure Note Joy Burnett MD - 05/23/2022 EXAMINATION: XR CHEST ONE VIEW CLINICAL HISTORY: shortness of breath, cough, hx of COPD new onsethypoxia TECHNIQUE: Single portable AP 80 degrees upright chest radiograph 05/23/2022 at 1150hours COMPARISON: Noncontrast CT chest 09/15/2021 Outside institution portable AP chest radiographs 04/08/2020 FINDINGS: Monitoring leads and wires overlie the chest. Scattered areas ofsubsegmental atelectasis/scarring, greatest at the right lung base. Small calcified granulomata in the left mid and lower lung redemonstrated. No focalairspace opacity is seen. The cardiomediastinal silhouette and hilar contours are unchanged. No pulmonary edema, visualized pleural effusion orpneumothorax. No acute osseous abnormality is seen. IMPRESSION No acute cardiopulmonary process identified. Thank you for letting us participate in the care of this patient. If youare a health care provider and have any questions regarding this report,please contact the number below. For patients who have questions please contactthe health healthcare translator that requested your imaging first. Joy Benavides APRN IMG DX ORDERABLES * Red Tube Hold (05/23/2022 12:00 PM EST) Red Hold Sample in lab. [facility] Blood Venous Draw / Unknown 05/23/2022 12:00 PM EST 05/23/2022 12:18 PM EST Joy Benavides CIRCULAR SAW OPERATOR CHEMISTRY ORDERAB LES Performing Organization Address [facility] Co de Phone Number [facility] [place] [address] * Gold Tube HOLD (05/23/2022 12:00 PM EST) Gold Hold Sample in lab. [facility] Blood Venous Draw / Unknown 05/23/2022 12:00 PM EST 05/23/2022 12:17 PM EST Joy Benavides CIRCULAR SAW OPERATOR CHEMISTRY ORDERAB LES Performing Organization Address [facility]/ZIP Co de Phone Number [facility] [place] [address] * (ABNORMAL) Differential, Automated (05/23/2022 12:00 PM EST) Neutrophil % 52.5 % [facility] Neutrophil Absolute 5.62 1.70 - 6.10 x10(3)/[facility] Lymph % 33.6 % [facility] Lymphocytes Abs 3.6(H) 0.9 - 3.2 x10(3)/[facility] Monocyte % 10.5 % [facility] Monocyte Abs 1.1(H) 0.3 - 0.9 x10(3)/[facility] Eos % 2.4 % [facility] Eosinophils Abs 0.3 0.0 - 0.4 x10(3)/[facility] Basophil % 0.7 % [facility] Baso Absolute 0.1 0.0 - 0.1 x10(3)/[facility] Immature Gran % 0.30 % [facility] Comment: Immature granulocytes(IG's)percentage and absolute count will include metamyelocytes, myelocytes, and promyelocytes. Blood smears from CBCs yielding IG's will be scanned manually for concordance. If this scan disagrees with the automated IG or if promyelocytes are noted, a manual differential will be performed. Immature Gran Absolute 0.03 0.00 - 0.04 x10(3)/[facility] Blood 05/23/2022 12:0 0 PM EST 05/23/2022 12:17 PM EST Narrative Resulting Agency Comment Spec In Lab Joy Benavides CIRCULAR SAW OPERATOR HEMATOLOGY ORDERA BLES [facility] [place] [address] * (ABNORMAL) Hemogram (05/23/2022 12:00 PM EST) White Blood Cell 10.7(H) 4.0 - 9.5 x10(3)/mc L [facility] Red Blood Cell 5.44 4.58 - 5.54 x10(6)/[facility] Hemoglobin 17.1(H) 13.7 - 16.5 g/dL [facility] Hematocrit 51.7(H) 40.5 - 48.5 % [facility] Mean Cell Volume 95.0(H) 82.9 - 93.1 fL [facility] Mean Cell Hemoglobin 31.4 27.5 - 32.1 pg [facility] Mean Cell Hemoglobin Concentration 33.1 32.0 - 35.7 g/dL [facility] Platelet 177 145 - 357 x10(3)/mc L [facility] RDW Standard Deviation 47.9(H) 36.0 - 45.0 fL [facility] RDW coefficient of variation 13.6 11.4 - 13.8 % [facility] Mean Platelet Volume 10.5 7.6 - 12.9 fL [facility] NRBC% auto 0.0 % [facility] NRBC Absolute 0.000 0.000 - 0.000 x10(3)/mc L [facility] Blood 05/23/2022 12:0 0 PM EST 05/23/2022 12:17 PM EST Narrative Resulting Agency Comment Spec In Lab Joy Garfield Benavides CIRCULAR SAW OPERATOR HEMATOLOGY ORDERA BLES Performing Organization Address City/[facility]/ZIP Co de Phone Number [facility] [place] [address] * Magnesium (05/23/2022 12:00 PM EST) Magnesium 1.05 0.69 - 1.07 mmol/L [facility] Blood 05/23/2022 12:0 0 PM EST 05/23/2022 12:17 PM EST Narrative Resulting Agency Comment Spec In Lab Joy Garfield Benavides CIRCULAR SAW OPERATOR CHEMISTRY ORDERAB LES Performing Organization Address City/[facility]/[place] [address] * pro-Brain Natriuretic Peptide (05/23/2022 12:00 PM EST) NT-proBNP 7 <=124 pg/mL [facility] Blood 05/23/2022 12:0 0 PM EST 05/23/2022 12:17 PM EST Narrative Resulting Agency Comment Spec In Lab Joy Merrill Makayla BARRN CHEMISTRY ORDERAB LES Performing Organization Address [facility] Co de Phone Number [facility] [place] [address] * D-Dimer, Quantitative (05/23/2022 12:00 PM EST) D-Dimer <215 0 - 500 FEU ng/ml [facility] Comment: The D-Dimer assay is used to aid in the diagnosis of deep vein thrombosis and pulmonary embolism. A normal D-Dimer result (less than 500 FEU ng/ml) has a negative predictive value of approximately 95% for the exclusion of acute PE and DVT when there is low to moderate pretest probability. To use age adjusted cutoff: Age x 10 ng/ml. Blood 05/23/2022 12:0 0 PM EST 05/23/2022 12:17 PM EST Narrative Resulting Agency Comment Spec In Lab Joy Garfield Benavides APRN HEMATOLOGY ORDERA BLES Performing Organization Address [facility] Co de Phone Number [facility] [place] [address] * Hepatic Function Panel (05/23/2022 12:00 PM EST) Protein, Total 7.0 6.1 - 8.0 g/dL [facility] Albumin 4.3 3.2 - 5.2 g/dL [facility] Aspartate Aminotransferase 13 0 - 39 unit/L [facility] Alanine Aminotransferase 16 0 - 55 unit/L [facility] Alkaline Phosphatase 61 40 - 130 unit/L [facility] Bilirubin, Total 0.3 0.2 - 1.3 mg/dL [facility] Bilirubin, Direct 0.1 0.0 - 0.3 mg/dL [facility] Blood 05/23/2022 12:0 0 PM EST 05/23/2022 12:17 PM EST Narrative Resulting Agency Comment Spec In Lab Joy C Vinyarszky CIRCULAR SAW OPERATOR CHEMISTRY ORDERAB LES Performing Organization Address City/[facility]/ZIP Co de Phone Number [facility] [place] [address] * Troponin (05/23/2022 12:00 PM EST) Troponin-T, High Sensitivity 10 <=22 ng/L [facility] Comment: This patient's troponin T concentration [...] troponin value can be found in the [facility] Test Catalog Troponin - [facility] Test Catalog Reference: Fourth [place] Definition of Myocardial Infarction. Journal of the [place] [employer] 2018;72:9502-6009 Blood 05/23/2022 12:0 0 PM EST 05/23/2022 12:17 PM EST Narrative Resulting Agency Comment Spec In Lab Joy Benavides APRN CHEMISTRY ORDERAB LES Performing Organization Address City/[facility]/ZIP Co de Phone Number [facility] [place] [address] * (ABNORMAL) Basic Metabolic Panel (non-fasting) (05/23/2022 12:00 PM EST) Glucose Not Perf 65 - 199 [facility] Comment: Sample improperly processed prior to receipt. Called by: ji, Read back by: karlie dowling, Date/Time:05/23/22 13:43. Diabetes: >=200 mg/dL plus symptoms Blood Urea Nitrogen 12 10 - 20 mg/dL [facility] Creatinine 0.73(L) 0.80 - 1.50 mg/dL [facility] Sodium 142 135 - 145 mmol/L [facility] Potassium 3.8 3.5 - 5.0 mmol/L [facility] Comment: Please note: ??Patients with WBC >100,000 may have falsely elevated Potassium levels. ??For accurate Potassium quantification in these patients send serum separator tube (gold top) for subsequent determinations. ??Contact the Clinical Chemistry Laboratory if there are any questions. Chloride 102 98 - 107 mmol/L [facility] Carbon Dioxide 32(H) 22 - 31 mmol/L [facility] Anion Gap 8 5 - 15 mmol/L [facility] Calcium 9.0 8.5 - 10.5 mg/dL [facility] Est Glomerular Filtration Rate 112 >=60 mL/min/1. 73 m?? [facility] Comment: This patient's estimated GFR was [...] and symptoms in addition to eGFR. Blood 05/23/2022 12:0 0 PM EST 05/23/2022 12:17 PM EST Narrative Resulting Agency Comment Spec In Lab Joy Benavides CIRCULAR SAW OPERATOR CHEMISTRY ORDERAB LES [facility] [place] [address] * EKG 12 Lead (05/23/2022 11:55 AM EST) Ventricular rate 72 BPM MUSE SYSTEM Atrial Rate 72 BPM MUSE SYSTEM P-R Interval 126 ms MUSE SYSTEM QRS Duration 96 ms MUSE SYSTEM Q-T Interval 390 ms MUSE SYSTEM QTC Calculated (Bezet) 427 ms MUSE SYSTEM Calculated P Holliday 42 degrees MUSE SYSTEM Calculated R Holl[place] 88 degrees MUSE SYSTEM Calculated T Holliday 72 degrees MUSE SYSTEM INTERPRETATION Normal sinus rhythm Normal ECG When compared with ECG of 31-JAN-2020 06:15, No significant change was found I personally reviewed the tracing and edited the fellows interpretation Confirmed by fellow MD Merlin, Garret ([id number]) on 05/23/2022 5:06:55 PM Confirmed by MD IVAN SALVATORE ([id number]) on 2022 1:07:27 PM MUSE SYSTEM 05/23/2022 11:5 5 AM EST 2022 1:07 PM EST Joy Lujanrashmicole CIRCULAR SAW OPERATOR ECG ORDERABLES MUSE SYSTEM documented in this encounter Visit Diagnoses Diagnosis COPD with acute exacerbation- Primary Obstructive chronic bronchitis with exacerbation COPD with acute exacerbation Obstructive chronic bronchitis with exacerbation At risk for long QT syndrome documented in this encounter Admitting Diagnoses Diagnosis COPD with acute exacerbation Obstructive chronic bronchitis with exacerbation documented in this encounter Administered Medications Inactive Administered Medications - up to 3 most recent administrations Medication Order MAR Action Action Date Dose Rate Site acetaminophen (Tylenol) tablet 650 mg 650 mg, Oral, EVERY 6 HOURS PRN, Starting on Mon05/23/22 at 1632, Until Mon06/03/22 at 1809, Pain, Fever, Administer for temperature greater than or equal to 38.2 degrees celsius. Maximum daily dose of acetaminophen from all sources not to exceed 4,000 mg. When ordered for pain, acetaminophen should be given even when other ordered pain medications are indicated., Routine Given 06/03/2022 1:56 PM EST 650 mg Given 06/03/2022 3:38 AM EST 650 mg Given 06/02/2022 6:06 PM EST 650 mg albuteroL (Proventil, Ventolin) (2.5 mg/3 mL) (0.083 %) nebulizer solution 2.5 mg 2.5 mg, Nebulization, EVERY 4 HOURS PRN, Starting on 05/23/22 at 1534, Until Arlene 05/26/22 at 0857, Wheezing, Routine Given 05/23/2022 5:15 PM EST 2.5 mg azithromycin (Zithromax) 500 mg in sodium chloride 0.9% 255 mL infusion 500 mg 500 mg, Intravenous, ONCE, 1 dose, On Mon05/23/22 at 1342, Administer over 60 Minutes, Indication for (Active or Suspected): Other (See comment) / COPD exacerbation New Bag 05/23/2022 1:42 PM EST 500 mg 255.1 mL/hr azithromycin (Zithromax) tablet 250 mg 250 mg, Oral, DAILY, 4 doses, First dose on Mon05/24/22 at 0900, Last dose on Mon05/27/22 at 0900, Routine, Indication for (Active or Suspected): Other (See comment) / COPD exacerbation Given 05/27/2022 8:12 AM EST 250 mg Given 05/26/2022 8:21 AM EST 250 mg Given 05/25/2022 8:25 AM EST 250 mg bisacodyL (Dulcolax) suppository 10 mg 10 mg, Rectal, DAILY PRN, Starting on Mon05/24/22 at 1128, Until Mon05/27/22 at 1700, Constipation, Routine Given 05/26/2022 4:22 PM EST 10 mg busPIRone (Buspar) tablet 15 mg 15 mg, Oral, 3 TIMES DAILY, First dose on Mon05/23/22 at 1730, Until Discontinued, Routine Given 06/03/2022 2:06 PM EST 15 mg Given 06/03/2022 8:38 AM EST 15 mg Given 06/02/2022 8:09 PM EST 15 mg dicyclomine (Bentyl) capsule 20 mg 20 mg, Oral, ONCE, 1 dose, On Mon05/28/22 at 1300, Routine Given 05/28/2022 12:27 PM EST [address] (Cymbalta) capsule 60 mg 60 mg, Oral, 2 TIMES DAILY, First dose on Mon05/23/22 at 2100, Until Discontinued, Routine Given 05/30/2022 8:12 AM EST 60 mg Given 05/29/2022 8:17 AM EST 60 mg Given 05/28/2022 8:57 AM EST [address] (Cymbalta) capsule 60 mg 60 mg, Oral, DAILY, First dose (after last modification) on Mon05/31/22 at 0900, Until Discontinued, Routine Given 06/03/2022 8:38 AM EST 60 mg Given 06/02/2022 9:04 AM EST 60 mg Given 06/01/2022 8:42 AM EST 60 mg enoxaparin (Lovenox) (40 mg/0.4 mL) subcutaneous injection 40 mg 40 mg, Subcutaneous, NIGHTLY, First dose on Mon05/23/22 at 2100, Until Discontinued, Routine Given 06/02/2022 8:09 PM EST 40 mg Given 06/01/2022 8:20 PM EST 40 mg Given 05/31/2022 7:58 PM EST 40 mg hydrALAZINE (Apresoline) (20 mg/mL) injection 10 mg 10 mg, Intramuscular, EVERY 6 HOURS PRN, Starting on Mon05/31/22 at 1833, Until Mon06/03/22 at 1809, High Blood Pressure, Hypertension: SBP >200 or DBP >120, Routine hydrOXYzine (Atarax) tablet 25 mg 25 mg, Oral, ONCE, 1 dose, On Mon05/23/22 at 2030, Routine Given 05/23/2022 9:18 PM EST 25 mg hydrOXYzine (Atarax) tablet 25 mg 25 mg, Oral, ONCE, 1 dose, On Mon05/26/22 at 1530, Routine Given 05/26/2022 2:46 PM EST 25 mg hydrOXYzine (Atarax) tablet 50 mg 50 mg, Oral, 3 TIMES DAILY PRN, Starting on Mon05/26/22 at 1634, Until Mon06/02/22 at 1735, Itching, Routine Given 06/02/2022 4:48 PM EST 50 mg Given 06/02/2022 10:58 AM EST 50 mg Given 06/01/2022 12:21 PM EST 50 mg iohexoL (Omnipaque) (350 mg/mL) solution 0-200 mL 0-200 mL, Intravenous, ONCE PRN, 1 dose, Starting on Mon05/27/22 at 1357, Until Mon05/27/22 at 1357, Per Protocol, Warning Vesicant/Irritant Medication , Radiology Contrast, Routine Given 05/27/2022 1:57 PM EST 107 mLs iohexoL (Omnipaque) (350 mg/mL) solution 0-50 mL 0-50 mL, Oral, ONCE PRN, 1 dose, Starting on Arlene 05/26/22 at 1843, Until Mon05/27/22 at 1357, Per Protocol, Warning Vesicant/Irritant Medication , Radiology Contrast, Routine Given 05/27/2022 1:57 PM EST 50 mLs iohexoL (Omnipaque) radiology oral prep (50 mL of oral contrast) 240 mL, Oral, ONCE, 1 dose, On Mon05/27/22 at 1130, 8 ounce cup = 240 mL of contrast 3 hours before scan as tolerated. The patient should not eat food or drink any other liquids during the entire period in which they are drinking the contrast. Mix 1 bottle (50 mL) of Omnipaque 350 with 1 liter (1,000 mL) non-carbonated beverage (preferably water). Close cover and shake vigorously and then refrigerate, if desired. Dispose of any excess preparation in a sink. Properly dispose of container., Routine Given 05/27/2022 11:13 AM EST 240 mLs iohexoL (Omnipaque) radiology oral prep (50 mL of oral contrast) 240 mL, Oral, ONCE, 1 dose, On Mon05/27/22 at 1200, 8 ounce cup = 240 mL of contrast 2 hours before scan as tolerated. The patient should not eat food or drink any other liquids during the entire period in which they are drinking the contrast. Mix 1 bottle (50 mL) of Omnipaque 350 with 1 liter (1,000 mL) non-carbonated beverage (preferably water). Close cover and shake vigorously and then refrigerate, if desired. Dispose of any excess preparation in a sink. Properly dispose of container., Routine Given 05/27/2022 12:00 PM EST 240 mLs iohexoL (Omnipaque) radiology oral prep (50 mL of oral contrast) 240 mL, Oral, ONCE, 1 dose, On Mon05/27/22 at 1300, 8 ounce cup = 240 mL of contrast 1 hours before scan as tolerated. The patient should not eat food or drink any other liquids during the entire period in which they are drinking the contrast. Mix 1 bottle (50 mL) of Omnipaque 350 with 1 liter (1,000 mL) non-carbonated beverage (preferably water). Close cover and shake vigorously and then refrigerate, if desired. Dispose of any excess preparation in a sink. Properly dispose of container., Routine Given 05/27/2022 1:00 PM EST 240 mLs iohexoL (Omnipaque) radiology oral prep (50 mL of oral contrast) 240 mL, Oral, ONCE, 1 dose, On Mon05/27/22 at 1330, 8 ounce cup = 240 mL of contrast 20 minutes before scan as tolerated. The patient should not eat food or drink any other liquids during the entire period in which they are drinking the contrast. Mix 1 bottle (50 mL) of Omnipaque 350 with 1 liter (1,000 mL) non-carbonated beverage (preferably water). Close cover and shake vigorously and then refrigerate, if desired. Dispose of any excess preparation in a sink. Properly dispose of container., Routine Given 05/27/2022 1:30 PM EST 240 mLs ipratropium-albuteroL (Duoneb) 0.5 mg-3 mg(2.5 mg base)/3 mL nebulizer solution 3 mL 3 mL, Nebulization, ONCE, 1 dose, On Mon05/23/22 at 1156, STAT Given 05/23/2022 11:56 AM EST 3 mLs ipratropium-albuteroL (Duoneb) 0.5 mg-3 mg(2.5 mg base)/3 mL nebulizer solution 3 mL 3 mL, Nebulization, EVERY 6 HOURS, First dose on Mon05/23/22 at 1530, Until Discontinued, Routine Given 2022 3:54 AM EST 3 mLs Given 05/23/2022 9:19 PM EST 3 mLs Given 05/23/2022 3:30 PM EST 3 mLs ipratropium-albuteroL (Duoneb) 0.5 mg-3 mg(2.5 mg base)/3 mL nebulizer solution 3 mL 3 mL, Nebulization, EVERY 4 HOURS SCHEDULED, First dose (after last modification) on Mon05/24/22 at 1200, Until Discontinued, Routine Given 05/26/2022 8:20 AM EST 3 mLs Given 05/26/2022 4:07 AM EST 3 mLs Given 05/26/2022 1:01 AM EST 3 mLs ipratropium-albuteroL (Duoneb) 0.5 mg-3 mg(2.5 mg base)/3 mL nebulizer solution 3 mL 3 mL, Nebulization, EVERY 4 HOURS SCHEDULED, First dose (after last modification) on Mon05/26/22 at 1245, Until Discontinued, Routine Given 05/27/2022 8:17 AM EST 3 mLs Given 05/27/2022 5:10 AM EST 3 mLs Given 05/26/2022 4:22 PM EST 3 mLs ipratropium-albuteroL (Duoneb) 0.5 mg-3 mg(2.5 mg base)/3 mL nebulizer solution 3 mL 3 mL, Nebulization, EVERY 4 HOURS PRN, Starting on Mon05/27/22 at 1045, Until Mon06/03/22 at 1809, Wheezing, Routine Given 05/30/2022 4:43 AM EST 3 mLs Given 05/29/2022 10:10 AM EST 3 mLs Given 05/28/2022 7:17 AM EST 3 mLs ketorolac (Toradol) (15 mg/mL) injection 15 mg 15 mg, Intravenous, EVERY 6 HOURS PRN, Starting on Mon05/24/22 at 1207, Until Mon05/29/22 at 1206, Pain, Routine Given 05/29/2022 11:29 AM EST 15 mg Given 05/29/2022 5:26 AM EST 15 mg Given 05/28/2022 11:21 PM EST 15 mg ketorolac (Toradol) (15 mg/mL) injection 15 mg 15 mg, Intravenous, ONCE, 1 dose, On Mon05/30/22 at 1615, Routine Given 05/30/2022 3:34 PM EST 15 mg ketorolac (Toradol) (15 mg/mL) injection 15 mg 15 mg, Intravenous, EVERY 6 HOURS PRN, Starting on Mon05/31/22 at 0804, Until Mon05/31/22 at 1705, Pain, Routine Given 05/31/2022 1:54 PM EST 15 mg Given 05/31/2022 8:09 AM EST 15 mg ketorolac (Toradol) (15 mg/mL) injection 15 mg 15 mg, Intramuscular, EVERY 6 HOURS PRN, Starting on Mon05/31/22 at 1714, Until Arlene 06/02/22 at 1735, Pain, Routine Given 06/02/2022 1:58 PM EST 15 mg Given 06/02/2022 7:36 AM EST 15 mg Given 06/02/2022 1:09 AM EST 15 mg ketorolac (Toradol) (30 mg/mL) injection 30 mg 30 mg, Intravenous, ONCE, 1 dose, On Mon05/30/22 at 2130, Routine Given 05/30/2022 9:20 PM EST 30 mg lactulose (Chronulac) (0.67 gram/mL) oral liquid 20 g 20 g, Oral, 2 TIMES DAILY, First dose on Mon05/30/22 at 1400, Until Discontinued, Hold if >3 bowel movements in 24 hours, Routine Given 06/01/2022 8:42 AM EST 20 g Given 05/31/2022 7:57 PM EST 20 g Given 05/31/2022 8:09 AM EST 20 g lactulose (Chronulac) (0.67 gram/mL) oral liquid 30 g 30 g, Oral, 3 TIMES DAILY, First dose (after last modification) on Mon06/01/22 at 2100, Until Discontinued, Hold if >3 bowel movements in 24 hours, Routine Given 06/03/2022 8:37 AM EST 30 g Given 06/02/2022 8:09 PM EST 30 g Given 06/02/2022 3:48 PM EST 30 g lisinopriL (Zestril) tablet 20 mg 20 mg, Oral, DAILY, First dose on Mon05/24/22 at 0900, Until Discontinued, Routine Given 05/28/2022 8:57 AM EST 20 mg Given 05/27/2022 8:12 AM EST 20 mg Given 05/26/2022 8:21 AM EST 20 mg lisinopriL (Zestril) tablet 40 mg 40 mg, Oral, DAILY, First dose (after last modification) on Mon05/29/22 at 0900, Until Discontinued, Routine Given 06/03/2022 8:40 AM EST 40 mg Given 06/02/2022 9:04 AM EST 40 mg Given 06/01/2022 8:37 AM EST 40 mg LORazepam (Ativan) (2 mg/mL) injection 0.5 mg 0.5 mg, Intravenous, ONCE, 1 dose, On Mon05/29/22 at 1645, Routine Given 05/29/2022 3:56 PM EST 0.5 mg LORazepam (Ativan) tablet 0.5 mg 0.5 mg, Oral, ONCE, 1 dose, On Mon05/23/22 at 1354, STAT Given 05/23/2022 1:54 PM EST 0.5 mg LORazepam (Ativan) tablet 0.5 mg 0.5 mg, Oral, ONCE PRN, 1 dose, Starting on Mon05/26/22 at 1730, Until Mon05/27/22 at 1316, Pre-CT abdomen/pelvis scan for claustrophobia, For pre-CT scan only, Routine Given 05/27/2022 1:16 PM EST 0.5 mg LORazepam (Ativan) tablet 0.5 mg 0.5 mg, Oral, ONCE, 1 dose, On Mon05/31/22 at 1745, Routine Given 05/31/2022 5:18 PM EST 0.5 mg LORazepam (Ativan) tablet 1 mg 1 mg, Oral, 2 TIMES DAILY PRN, Starting on Mon05/23/22 at 1632, Until Mon06/03/22 at 1809, Anxiety, Routine Given 06/03/2022 11:06 AM EST 1 mg Given 06/03/2022 4:51 AM EST 1 mg Given 06/02/2022 10:57 AM EST 1 mg LORazepam (Ativan) tablet 1 mg 1 mg, Oral, ONCE, 1 dose, On Mon05/26/22 at 2200, Routine Given 05/26/2022 9:26 PM EST 1 mg magnesium hydroxide (Milk of Magnesia) (240 mg/mL) oral liquid 10 mL 10 mL, Oral, DAILY, First dose on Mon05/31/22 at 1815, Until Discontinued, 10 mL concentrate = 30 mL regular, Routine Given 06/03/2022 8:37 AM EST 10 mLs Given 06/02/2022 9:04 AM EST 10 mLs Given 06/01/2022 8:48 AM EST 10 mLs melatonin tablet 3 mg 3 mg, Oral, NIGHTLY PRN, Starting on Mon05/23/22 at 1632, Until Mon06/03/22 at 1809, Sleep, Routine Given 06/01/2022 8:19 PM EST 3 mg Given 05/31/2022 8:01 PM EST 3 mg Given 05/28/2022 11:21 PM EST 3 mg methadone (Dolophine) (10 mg/mL) oral liquid 132 mg 132 mg, Oral, DAILY, First dose on Mon05/24/22 at 0915, Until Discontinued, Liquid methadone should be used to avoid diversion, and a mouth check should be performed after each dose., Routine, Name of patient's Methadone clinic? [facility] phone: [phone], Date last Methadone dose was given at the Outpatient Clinic? 05/23/2022, Dose of Methadone provided at the clinic? 132 mg (take home prescription from 05/23/22 to 06/05/22 Given 2022 8:42 AM EST 132 mg methadone (Dolophine) (10 mg/mL) oral liquid 132 mg 132 mg, Oral, DAILY, First dose (after last modification) on Mon05/25/22 at 0500, Until Discontinued, Liquid methadone should be used to avoid diversion, and a mouth check should be performed after each dose., Routine, Name of patient's Methadone clinic? [facility] in [facility] phone: [phone], Date last Methadone dose was given at the Outpatient Clinic? 05/23/2022, Dose of Methadone provided at the clinic? 132 mg (take home prescription from 05/23/22 to 06/05/22 Given 05/25/2022 4:30 AM EST 132 mg methadone (Dolophine) (10 mg/mL) oral liquid 132 mg 132 mg, Oral, DAILY, First dose (after last modification) on Mon05/26/22 at 0500, Until Discontinued, Liquid methadone should be used to avoid diversion, and a mouth check should be performed after each dose., Routine, Name of patient's Methadone clinic? [facility] in [facility] phone: [phone], Date last Methadone dose was given at the Outpatient Clinic? 05/23/2022, Dose of Methadone provided at the clinic? 132 mg (take home prescription from 05/23/22 to 06/05/22 Given 05/29/2022 5:25 AM EST 132 mg Given 05/28/2022 4:14 AM EST 132 mg Given 05/27/2022 4:36 AM EST 132 mg methadone (Dolophine) tablet 130 mg 130 mg, Oral, EVERY 24 HOURS, First dose on Mon05/30/22 at 0500, Until Discontinued, Please give full 130mg dose at 5 am in pill form as patient has requested. He understands it will be 13 pills, Routine Given 06/03/2022 4:51 AM EST 130 mg Given 06/02/2022 4:38 AM EST 130 mg Given 06/01/2022 4:43 AM EST 130 mg methylnaltrexone (Relistor) (12 mg/0.6 mL) subcutaneous syringe 12 mg 12 mg, Subcutaneous, EVERY OTHER DAY, 2 doses, First dose on Mon05/28/22 at 0500, Last dose on Mon05/30/22 at 0900, Administer by subcutaneous injection into the upper arm, abdomen, or thigh. Rotate injection sites with each dose, Routine, Is this medication a continuation from outpatient therapy or a palliative care recommendation? No, Did this patient fail at least 48 hours of a standard bowel regimen? Yes Given 05/30/2022 8:11 AM EST 12 mg Given 05/28/2022 9:07 AM EST 12 mg methylnaltrexone (Relistor) (12 mg/0.6 mL) subcutaneous syringe 12 mg 12 mg, Subcutaneous, EVERY OTHER DAY, 2 doses, First dose on Mon06/01/22 at 0500, Last dose on Mon06/03/22 at 0900, Administer by subcutaneous injection into the upper arm, abdomen, or thigh. Rotate injection sites with each dose, Routine, Is this medication a continuation from outpatient therapy or a palliative care recommendation? No, Did this patient fail at least 48 hours of a standard bowel regimen? Yes Given 06/03/2022 9:03 AM EST 12 mg Given 06/01/2022 4:43 AM EST 12 mg mometasone (Asmanex Twisthaler) 220 mcg/actuation DPI Inhaler 1 puff 1 puff (220 mcg), Inhalation, NIGHTLY, First dose on Mon05/25/22 at 2100, Until Discontinued, Rinse mouth (without swallowing) after each use., Routine, Does the patient have the inspiratory effort to support a dry powder inhaler? Yes Given 05/30/2022 9:00 PM EST 1 puff Given 05/29/2022 8:16 PM EST 1 puff Given 05/28/2022 8:34 PM EST 1 puff nicotine (Nicoderm CQ) 21 mg/24 hr patch 21 mg 21 mg (1 patch), Transdermal, Administer over 24 Hours, DAILY, First dose on Mon05/23/22 at 2015, Until Discontinued, Apply new patch to clean, dry, hair-free skin on the upper body or upper outer arm; each patch should be applied to a different site. , Routine Patch Applied 06/03/2022 8:36 AM EST 21 mg 04- Shoulder (Right) Patch Applied 06/02/2022 9:06 AM EST 21 mg 04- Shoulder (Right) Patch Applied 06/01/2022 8:42 AM EST 21 mg 04- Shoulder (Right) nicotine (Nicoderm CQ) 21 mg/24 hr patch Patch Verification Transdermal, 2 TIMES DAILY, First dose on Mon05/24/22 at 0730, Until Discontinued, Verify nicotine 21 mg/24 hr patch olodateroL (Striverdi Respimat) inhaler 2 puff 2 puff, Inhalation, DAILY, First dose on Mon05/27/22 at 1130, Until Discontinued, Routine Given 06/03/2022 8:38 AM EST 2 puffs Given 06/02/2022 9:16 AM EST 2 puffs Given 06/01/2022 10:02 AM EST 2 puffs ondansetron (Zofran) tablet 4 mg 4 mg, Oral, ONCE, 1 dose, On Mon05/25/22 at 0900, Routine Given 05/25/2022 8:25 AM EST 4 mg oxyCODONE (Roxicodone) tablet 5 mg 5 mg, Oral, EVERY 6 HOURS PRN, Starting on Mon05/24/22 at 1355, Until Mon05/31/22 at 0805, Pain, Routine Given 05/31/2022 5:58 AM EST 5 mg Given 05/30/2022 11:50 PM EST 5 mg Given 05/30/2022 5:44 PM EST 5 mg polyethylene glycoL (GoLYTELY) BOWEL PREP powder for solution JUG (236g diluted to 4000 mL) 4,000 mL 4,000 mL, Oral, ONCE, 1 dose, On Mon05/25/22 at 1145, He can drink it at his own pace, titrate to no more than 3 bowel movements per day This package contains polyethylene glycol 236 g to be dissolved in 4000 mL., Routine Given 05/25/2022 11:45 AM EST 4,000 mLs polyethylene glycoL (GoLYTELY) BOWEL PREP powder for solution JUG (236g diluted to 4000 mL) 4,000 mL 4,000 mL, Oral, ONCE, 1 dose, On Mon06/01/22 at 1800, This package contains polyethylene glycol 236 g to be dissolved in 4000 mL., Routine Given 06/01/2022 8:24 PM EST 4,000 mLs polyethylene glycoL (Miralax) packet 17 g 17 g, Oral, DAILY, First dose on Mon05/24/22 at 1215, Until Discontinued, Routine Given 2022 12:02 PM EST 17 g polyethylene glycoL (Miralax) packet 17 g 17 g, Oral, 2 TIMES DAILY, First dose (after last modification) on Mon05/24/22 at 1845, Until Discontinued, Routine Given 05/25/2022 8:26 AM EST 17 g Given 2022 6:37 PM EST 17 g predniSONE (Deltasone) tablet 60 mg 60 mg, Oral, ONCE, 1 dose, On Mon05/23/22 at 1323, STAT Given 05/23/2022 1:23 PM EST 60 mg predniSONE (Deltasone) tablet 60 mg 60 mg, Oral, DAILY, 4 doses, First dose on Mon05/24/22 at 0900, Last dose on Mon05/27/22 at 0900, Routine Given 05/27/2022 8:10 AM EST 60 mg Given 05/26/2022 8:21 AM EST 60 mg Given 05/25/2022 8:25 AM EST 60 mg pregabalin (Lyrica) capsule 200 mg 200 mg, Oral, ONCE, 1 dose, On Mon05/23/22 at 1307, Routine Given 05/23/2022 1:07 PM EST 200 mg pregabalin (Lyrica) capsule 200 mg 200 mg, Oral, 3 TIMES DAILY AFTER MEALS, First dose on Mon05/23/22 at 1800, Until Discontinued, Routine Given 05/23/2022 5:09 PM EST 200 mg pregabalin (Lyrica) capsule 200 mg 200 mg, Oral, 3 TIMES DAILY AFTER MEALS, First dose (after last modification) on Mon05/24/22 at 0915, Until Discontinued, Routine Given 2022 8:28 AM EST 200 mg pregabalin (Lyrica) capsule 200 mg 200 mg, Oral, 3 TIMES DAILY, First dose (after last modification) on Mon05/24/22 at 1200, Until Discontinued, Schedule for 0500 1200 and 1700, Routine Given 06/03/2022 3:30 PM EST 200 mg Given 06/03/2022 11:59 AM EST 200 mg Given 06/03/2022 4:51 AM EST 200 mg prochlorperazine (Compazine) tablet 5 mg 5 mg, Oral, ONCE, 1 dose, On Mon05/25/22 at 1415, Maximum dose: 50 mg / 24 hrs, Routine Given 05/25/2022 1:39 PM EST 5 mg prochlorperazine (Compazine) tablet 5 mg 5 mg, Oral, EVERY 8 HOURS PRN, Starting on Mon05/25/22 at 1615, Until Mon06/03/22 at 1809, Nausea, Maximum dose: 50 mg / 24 hrs, Routine Given 06/02/2022 4:46 PM EST 5 mg Given 06/02/2022 5:59 AM EST 5 mg Given 06/01/2022 4:50 AM EST 5 mg QUEtiapine (SEROquel) tablet 300 mg 300 mg, Oral, NIGHTLY, First dose on Mon05/23/22 at 2100, Until Discontinued, Routine Given 06/02/2022 8:08 PM EST 300 mg Given 06/01/2022 8:19 PM EST 300 mg Given 05/31/2022 7:57 PM EST 300 mg senna-docusate (Pericolace) 8.6-50 mg per tablet 2 tablet 2 tablet, Oral, 2 TIMES DAILY, First dose on Mon05/23/22 at 2100, Until Discontinued, Routine Given 06/03/2022 8:38 AM EST 2 tablets Given 06/02/2022 8:08 PM EST 2 tablets Given 06/02/2022 9:04 AM EST 2 tablets simethicone (Mylicon) 80 mg chewable tablet 80 mg 80 mg, Oral, EVERY 6 HOURS PRN, Starting on Mon05/28/22 at 1209, Until Mon06/03/22 at 1809, Cramping, Routine Given 06/02/2022 5:59 AM EST 80 mg Given 06/01/2022 6:02 AM EST 80 mg Given 05/29/2022 5:43 AM EST 80 mg sodium chloride 0.9 % (flush) (BD PosiFlush Normal Saline 0.9) flush 5 mL 5 mL, Intravenous, 2 TIMES DAILY, First dose on Mon05/23/22 at 2100, Until Discontinued, Routine Given 05/31/2022 8:20 AM EST 10 mLs Given 05/30/2022 9:21 PM EST 5 mLs Given 05/30/2022 8:13 AM EST 5 mLs sodium phosphates (FLEET) 19-7 gram/118 mL rectal enema 1 Bottle 1 Bottle, Rectal, ONCE, 1 dose, On Mon05/30/22 at 2000, Routine Given 05/30/2022 7:46 PM EST 1 Bottle sodium phosphates (FLEET) 19-7 gram/118 mL rectal enema 1 Bottle 1 Bottle, Rectal, DAILY PRN, Starting on Mon05/31/22 at 0805, Until Mon06/02/22 at 0819, Constipation, Routine Given 06/01/2022 3:03 PM EST 1 Bottle tiotropium bromide (Spiriva Respimat) 2.5 mcg/actuation inhaler 2 puff 2 puff, Inhalation, DAILY, First dose on Mon05/25/22 at 1130, Until Discontinued, Must be primed prior to first administration, Routine Given 05/26/2022 8:22 AM EST 2 puffs Given 05/25/2022 11:30 AM EST 2 puffs tiotropium bromide (Spiriva Respimat) 2.5 mcg/actuation inhaler 2 puff 2 puff, Inhalation, DAILY, First dose on Mon05/27/22 at 1130, Until Discontinued, Must be primed prior to first administration, Routine Given 06/03/2022 8:38 AM EST 2 puffs Given 06/02/2022 9:15 AM EST 2 puffs Given 06/01/2022 8:43 AM EST 2 puffs traZODone (Desyrel) tablet 25 mg 25 mg, Oral, 3 TIMES DAILY PRN, Starting on Mon06/02/22 at 1735, Until Mon06/03/22 at 1809, anxiety, Routine Given 06/02/2022 6:02 PM EST 25 mg triamcinolone (Kenalog) 0.1 % cream Topical (Top), 2 TIMES DAILY PRN, Rash on right proximal leg, Starting on Mon05/24/22 at 0517, Until Mon06/03/22 at 1809, Application Site: rash on right proximal leg Given 2022 9:42 AM EST zonisamide (Zonegran) capsule 200 mg 200 mg, Oral, DAILY, First dose on Mon05/24/22 at 0900, Until Discontinued, DO NOT CRUSH OR OPEN, Routine Given 06/03/2022 8:36 AM EST 200 mg Given 06/02/2022 9:05 AM EST 200 mg Given 06/01/2022 8:41 AM EST 200 mg documented in this encounter Active and Recently Administered Medications Times are shown in EST. Scheduled Medication Order 06/01/2022 06/02/2022 06/03/2022 busPIRone (Buspar) tablet 15 mg 15 mg, Oral, 3 TIMES DAILY, First dose on Mon05/23/22 at 1730, Until Discontinued, Routine 0841 (Given - Provider: Travis King RN)1553 (Given - Provider: Travis King RN)2019 (Given - Provider: Karlie Silva RN) 0904 (Given - Provider: Travis King RN)1548 (Given - Provider: Travis King RN)2009 (Given - Provider: Karlie Silva RN) 0838 (Given - Provider: Travis King RN)1406 (Given - Provider: Travis King RN) DULoxetine DR (Cymbalta) capsule 60 mg 60 mg, Oral, DAILY, First dose (after last modification) on Mon05/31/22 at 0900, Until Discontinued, Routine 0842 (Given - Provider: Travis King RN) 0904 (Given - Provider: Travis King RN) 0838 (Given - Provider: Travis King RN) enoxaparin (Lovenox) (40 mg/0.4 mL) subcutaneous injection 40 mg 40 mg, Subcutaneous, NIGHTLY, First dose on Mon05/23/22 at 2100, Until Discontinued, Routine 2019 (Given - Provider: Karlie Silva RN) 2008 (Given - Provider: Karlie Silva RN) lactulose (Chronulac) (0.67 gram/mL) oral liquid 20 g (CANCELED) 20 g, Oral, 2 TIMES DAILY, First dose on Mon05/30/22 at 1400, Until Discontinued, Hold if >3 bowel movements in 24 hours, Routine 0842 (Given - Provider: Travis King RN) lactulose (Chronulac) (0.67 gram/mL) oral liquid 30 g 30 g, Oral, 3 TIMES DAILY, First dose (after last modification) on Mon06/01/22 at 2100, Until Discontinued, Hold if >3 bowel movements in 24 hours, Routine 2018 (Given - Provider: Karlie Silva RN) 0905 (Given - Provider: Travis King RN)1548 (Given - Provider: Travis King RN)2008 (Given - Provider: Karlie Silva RN) 0837 (Given - Provider: Travis King RN)1500 (Not Given - Provider: Travis King RN - Reason: Patient/family refused) lisinopriL (Zestril) tablet 40 mg 40 mg, Oral, DAILY, First dose (after last modification) on Mon05/29/22 at 0900, Until Discontinued, Routine 0837 (Given - Provider: Travis King RN) 0904 (Given - Provider: Travis King RN) 0840 (Given - Provider: Travis King RN) magnesium hydroxide (Milk of Magnesia) (240 mg/mL) oral liquid 10 mL 10 mL, Oral, DAILY, First dose on Mon05/31/22 at 1815, Until Discontinued, 10 mL concentrate = 30 mL regular, Routine 0848 (Given - Provider: Travis King RN) 0904 (Given - Provider: Travis King RN) 0837 (Given - Provider: Travis King RN) methadone (Dolophine) tablet 130 mg 130 mg, Oral, EVERY 24 HOURS, First dose on Mon05/30/22 at 0500, Until Discontinued, Please give full 130mg dose at 5 am in pill form as patient has requested. He understands it will be 13 pills, Routine 442 (Given - Provider: Brittney Rangel RN) 043 (Given - Provider: Karlie Silva RN) 045 (Given - Provider: Karlie Silva RN) methylnaltrexone (Relistor) (12 mg/0.6 mL) subcutaneous syringe 12 mg (COMPLETED) 12 mg, Subcutaneous, EVERY OTHER DAY, 2 doses, First dose on Mon06/01/22 at 0500, Last dose on Mon06/03/22 at 0900, Administer by subcutaneous injection into the upper arm, abdomen, or thigh. Rotate injection sites with each dose, Routine, Is this medication a continuation from outpatient therapy or a palliative care recommendation? No, Did this patient fail at least 48 hours of a standard bowel regimen? Yes 442 (Given - Provider: Brittney Rangel RN) 902 (Given - Provider: Travis King RN) mometasone (Asmanex Twisthaler) 220 mcg/actuation DPI Inhaler 1 puff 1 puff (220 mcg), Inhalation, NIGHTLY, First dose on Mon05/25/22 at 2100, Until Discontinued, Rinse mouth (without swallowing) after each use., Routine, Does the patient have the inspiratory effort to support a dry powder inhaler? Yes 2099 (Not Given - Provider: Karlie Silva RN - Reason: Patient/family refused) 2100 (Not Given - Provider: Karlie Silva RN - Reason: Patient/family refused) nicotine (Nicoderm CQ) 21 mg/24 hr patch 21 mg(Linked Group 1) 21 mg (1 patch), Transdermal, Administer over 24 Hours, DAILY, First dose on Mon05/23/22 at 2015, Until Discontinued, Apply new patch to clean, dry, hair-free skin on the upper body or upper outer arm; each patch should be applied to a different site. , Routine 08 (Patch Removed - Provider: Travis King RN)08 (Patch Applied - Provider: Travis King RN) 08 (Patch Removed - Provider: Travis King RN)09 (Patch Applied - Provider: Travis King RN) 0836 (Patch Applied - Provider: Travis King RN)1604 (Due: Patch Removed - Provider: Automatic Discharge Provider - Comment: Time automatically adjusted from order being discontinued) nicotine (Nicoderm CQ) 21 mg/24 hr patch Patch Verification(Linked Group 1) Transdermal, 2 TIMES DAILY, First dose on Mon05/24/22 at 0730, Until Discontinued, Verify nicotine 21 mg/24 hr patch 0900 (Patch (dose and location) verified - Provider: Travis King RN)2100 (Patch Not Verified (add comment) - Provider: Karlie Silva RN - Comment: not present patient removed) 0900 (Patch (dose and location) verified - Provider: Travis King RN)2100 (Patch Not Verified (add comment) - Provider: Karlie Silva RN - Comment: patient removed) 0900 (Patch (dose and location) verified - Provider: Travis King RN) olodateroL (Striverdi Respimat) inhaler 2 puff 2 puff, Inhalation, DAILY, First dose on Mon05/27/22 at 1130, Until Discontinued, Routine 1002 (Given - Provider: Travis King RN) 0916 (Given - Provider: Travis King RN) 0838 (Given - Provider: Travis King RN) polyethylene glycoL (GoLYTELY) BOWEL PREP powder for solution JUG (236g diluted to 4000 mL) 4,000 mL (COMPLETED) 4,000 mL, Oral, ONCE, 1 dose, On Mon06/01/22 at 1800, This package contains polyethylene glycol 236 g to be dissolved in 4000 mL., Routine 2023 (Given - Provider: Karlie Silva RN) pregabalin (Lyrica) capsule 200 mg 200 mg, Oral, 3 TIMES DAILY, First dose (after last modification) on Mon05/24/22 at 1200, Until Discontinued, Schedule for 0500 1200 and 1700, Routine 0408 (Given - Provider: Brittney Rangel RN)1313 (Given - Provider: Travis King RN)1642 (Given - Provider: Travis King RN) 0438 (Given - Provider: Karlie Silva RN)1144 (Given - Provider: Travis King RN)1802 (Given - Provider: Travis King RN) 0451 (Given - Provider: Karlie Silva RN)1159 (Given - Provider: Travis King RN)1530 (Given - Provider: Travis King RN - Comment: stated reschedualed) QUEtiapine (SEROquel) tablet 300 mg 300 mg, Oral, NIGHTLY, First dose on Mon05/23/22 at 2100, Until Discontinued, Routine 2018 (Given - Provider: Karlie Silva RN) 2007 (Given - Provider: Karlie Silva RN) senna-docusate (Pericolace) 8.6-50 mg per tablet 2 tablet 2 tablet, Oral, 2 TIMES DAILY, First dose on Mon05/23/22 at 2100, Until Discontinued, Routine 0841 (Given - Provider: Travis King RN)2018 (Given - Provider: Karlie Silva RN) 0904 (Given - Provider: Travis King RN)2007 (Given - Provider: Karlie Silva RN) 0838 (Given - Provider: Travis King RN) sodium chloride 0.9 % (flush) (BD PosiFlush Normal Saline 0.9) flush 5 mL 5 mL, Intravenous, 2 TIMES DAILY, First dose on Mon05/23/22 at 2100, Until Discontinued, Routine 0900 (Not Given - Provider: Travis King RN - Reason: Loss of access)2022 (Not Given - Provider: Karlie Silva RN - Reason: Loss of access) 0900 (Not Given - Provider: Travis King RN - Reason: Loss of access)2099 (Not Given - Provider: Karlie Silva RN - Reason: Loss of access) 0900 (Not Given - Provider: Travis King RN - Reason: Loss of access) tiotropium bromide (Spiriva Respimat) 2.5 mcg/actuation inhaler 2 puff 2 puff, Inhalation, DAILY, First dose on Mon05/27/22 at 1130, Until Discontinued, Must be primed prior to first administration, Routine 0843 (Given - Provider: Travis King RN) 0915 (Given - Provider: Travis King, CHRISTINE) 0838 (Given - Provider: Travis King RN) zonisamide (Zonegran) capsule 200 mg 200 mg, Oral, DAILY, First dose on Mon05/24/22 at 0900, Until Discontinued, DO NOT CRUSH OR OPEN, Routine 0841 (Given - Provider: Travis King RN) 0905 (Given - Provider: Travis King RN) 0836 (Given - Provider: Travis King RN) PRN Medication Order 06/01/2022 06/02/2022 06/03/2022 acetaminophen (Tylenol) tablet 650 mg 650 mg, Oral, EVERY 6 HOURS PRN, Starting on Mon05/23/22 at 1632, Until Mon06/03/22 at 1809, Pain, Fever, Administer for temperature greater than or equal to 38.2 degrees celsius. Maximum daily dose of acetaminophen from all sources not to exceed 4,000 mg. When ordered for pain, acetaminophen should be given even when other ordered pain medications are indicated., Routine 2019 (Given - Provider: Karlie Silva RN) 1806 (Given - Provider: Travis King RN) 0338 (Given - Provider: Karlie Silva RN)1356 (Given - Provider: Travis King RN) hydrALAZINE (Apresoline) (20 mg/mL) injection 10 mg 10 mg, Intramuscular, EVERY 6 HOURS PRN, Starting on Mon05/31/22 at 1833, Until Mon06/03/22 at 1809, High Blood Pressure, Hypertension: SBP >200 or DBP >120, Routine hydrOXYzine (Atarax) tablet 50 mg (CANCELED) 50 mg, Oral, 3 TIMES DAILY PRN, Starting on Mon05/26/22 at 1634, Until Mon06/02/22 at 1735, Itching, Routine 0842 (Given - Provider: Travis King RN)1221 (Given - Provider: Traivs King RN) 1058 (Given - Provider: Travis King RN)1648 (Given - Provider: Travis King RN) ipratropium-albuteroL (Duoneb) 0.5 mg-3 mg(2.5 mg base)/3 mL nebulizer solution 3 mL 3 mL, Nebulization, EVERY 4 HOURS PRN, Starting on Mon05/27/22 at 1045, Until Mon06/03/22 at 1809, Wheezing, Routine ketorolac (Toradol) (15 mg/mL) injection 15 mg (CANCELED) 15 mg, Intramuscular, EVERY 6 HOURS PRN, Starting on Mon05/31/22 at 1714, Until Mon06/02/22 at 1735, Pain, Routine 0051 (Given - Provider: Brittney Rangel RN)0602 (Given - Provider: Brittney Rangel RN)1208 (Given - Provider: Travis King RN)1815 (Given - Provider: Travis King RN) 0109 (Given - Provider: Karlie Silva RN)0736 (Given - Provider: Travis King RN)1358 (Given - Provider: Travis King RN) lidocaine (Xylocaine) 1% (10 mg/mL) injection 3 mg 3 mg (0.3 mL), Subcutaneous, ONCE PRN, 1 dose, Starting on Mon05/23/22 at 1632, Until Mon06/03/22 at 1809, for discomfort with PIV insertion, Routine LORazepam (Ativan) tablet 1 mg 1 mg, Oral, 2 TIMES DAILY PRN, Starting on Mon05/23/22 at 1632, Until Mon06/03/22 at 1809, Anxiety, Routine 0411 (Given - Provider: Brittney Rangel RN)1002 (Given - Provider: Travis King RN) 0438 (Given - Provider: Karlie Silva RN)1057 (Given - Provider: Travis King RN) 0451 (Given - Provider: Karlie Silva RN)1106 (Given - Provider: Travis King RN) melatonin tablet 3 mg 3 mg, Oral, NIGHTLY PRN, Starting on Mon05/23/22 at 1632, Until Mon06/03/22 at 1809, Sleep, Routine 2019 (Given - Provider: Karlie Silva, CHRISTINE) prochlorperazine (Compazine) tablet 5 mg 5 mg, Oral, EVERY 8 HOURS PRN, Starting on Mon05/25/22 at 1615, Until Mon06/03/22 at 1809, Nausea, Maximum dose: 50 mg / 24 hrs, Routine 0450 (Given - Provider: Brittney Rangel RN) 0559 (Given - Provider: Karlie Silva RN)1646 (Given - Provider: Travis King RN) simethicone (Mylicon) 80 mg chewable tablet 80 mg 80 mg, Oral, EVERY 6 HOURS PRN, Starting on Mon05/28/22 at 1209, Until Mon06/03/22 at 1809, Cramping, Routine 0602 (Given - Provider: Brittney Rangel RN) 0559 (Given - Provider: Karlie Silva RN) sodium chloride 0.9 % (flush) (BD PosiFlush Normal Saline 0.9) flush 5-20 mL 5-20 mL, Intravenous, EVERY 1 MIN PRN, Starting on Mon05/23/22 at 1632, Until Mon06/03/22 at 1809, flush, Flush pertains to all indwelling lines. Flush per protocol found in the job aid using the link provided on this medication record., Routine sodium phosphates (FLEET) 19-7 gram/118 mL rectal enema 1 Bottle (CANCELED) 1 Bottle, Rectal, DAILY PRN, Starting on Mon05/31/22 at 0805, Until Mon06/02/22 at 0819, Constipation, Routine 1503 (Given - Provider: Travis King, CHRISTINE) traZODone (Desyrel) tablet 25 mg 25 mg, Oral, 3 TIMES DAILY PRN, Starting on Mon06/02/22 at 1735, Until Mon06/03/22 at 1809, anxiety, Routine 1802 (Given - Provider: Travis Kign RN) triamcinolone (Kenalog) 0.1 % cream Topical (Top), 2 TIMES DAILY PRN, Rash on right proximal leg, Starting on Mon05/24/22 at 0517, Until Mon06/03/22 at 1809, Application Site: rash on right proximal leg Linked Groups Order Group 1: nicotine (Nicoderm CQ) 21 mg/24 hr patch 21 mgJump to med 21 mg (1 patch), Transdermal, Administer over 24 Hours, DAILY, First dose on Mon05/23/22 at 2015, Until Discontinued, Apply new patch to clean, dry, hair-free skin on the upper body or upper outer arm; each patch should be applied to a different site. , Routine And nicotine (Nicoderm CQ) 21 mg/24 hr patch Patch VerificationJump to med Transdermal, 2 TIMES DAILY, First dose on Mon05/24/22 at 0730, Until Discontinued, Verify nicotine 21 mg/24 hr patch documented in this encounter Additional Health Concerns Infection Onset Date Last Indicated Resolved Time Rule Out Respiratory 05/23/2022 05/23/2022 023 3:24 PM EST Rule Out COVID-19 05/23/2022 05/23/2022 05/23/2022 3:24 PM EST Rule Out COVID-19 05/30/2022 05/30/2022 05/30/2022 6:09 PM EST documented as of this encounter Care Teams [employer] Relationship Specialty Start Date End Date Travis Castaneda MD [address] [place] [address] PCP - General Internal Medicine 10/29/18 09/27/23 documented as of this encounter
--- OUTSIDE RECORDS SUMMARY | 2024-02-29 09:00 | XMS_ITS | Encounter Summary ---
Author Organization [facility] Address [facility] [place] [address] Care Team Providers Care Cable Wirer Name Role Phone Travis Castaneda MD Primary Care Provider + [phone] Reason for Visit * Reason Comments Follow-up Encounter Details Date Type Department Care Team (Late st Contact Info) Description 10/12/2020 10:00 AM EDT Office [place] [id number] Hetal Ojeda MD [facility] [place] [address] Asthma-COPD overlap syndrome; Lung nodule; Dependence on supplemental oxygen; Cigarette nicotine dependence with other nicotine-induced disorder; History of pneumonia Social History Tobacco Use Types Packs/Day Years [...] Sign Reading Time Taken Comments Blood Pressure 145/93 10/12/2020 10:14 AM EDT Did not take medication ride was to early Pulse 73 10/12/2020 10:14 AM EDT Temperature 36.7 ??C (98 ??F) 10/12/2020 10: 14 AM EDT Respiratory Rate 16 10/12/2020 10:1 4 AM EDT Oxygen Saturation 93% 10/12/2020 10: 14 AM EDT Inhaled Oxygen Concentration - - Weight 90.7 kg (200 lb) 10/12/2020 10:1 4 AM EDT Height 175.3 cm (5' 9) 10/12/2020 10:1 4 AM EDT Body Mass Index 29.53 10/12/2020 10:14 AM EDT documented in this encounter Progress Notes * Hetal Ojeda MD - 10/12/2020 10:00 AM EDT Images from the original note were not included. [facility] Section of Pulmonary and Critical Care Medicine Outpatient Consultation Date of Encounter: 10/12/2020 Reason for Evaluation: Mr. Garret Barros returns to the pulmonary clinic for follow-up of COPD. I independently interviewed the patient, have examined the patient if this visit was conducted in the office and have reviewed available records. Dear Dr. Travis Castaneda MD, As you know, Garret Barros is a 45 y.o. male with history of severe asthma- COPD??overlap syndrome, oxygen dependency, prior pulmonary nodules,??ongoing??tobacco use, in the setting of anxiety, history of substance abuse in remission, who was last seen in pulmonary clinic July 2020. Mr. Barros reports that he is still feeling very short of breath. He had another pneumonia, and was hospitalized for that in August. He sometimes coughs up clear mucous, sometimes yellow. Haley fevers orchills. Still having ongoing chest wall pain, tells me he had an xray recently at OSH. He reports that he is taking anoro ellipta daily, flovent 1-2 times a day, and albuterol MDI and nebs PRN. Used albuterol nebs twice yesterday, does feel benefit. He has been on prednisone again, tells me that it doesn't help his breathing much. He tells me he is taking two tabs but doesn't know the dose. He tells me that he has essentially been on prednisone chronically for two years, but this is hard to corroborate. He tells me he recently completed azithromcyin, thinks it made him worse. Duration of therapy is hard to confirm. He is still smoking. Using patches to try to quit. Smokes about 1 ppd. Denies any EtOH use. Has a rash on his arms, improving with a topical cream from PCP. Has not had the covid19 vaccine - he is thinking about it. He is using oxygen, 2LPM, uses night and day. Didn't bring today because he didn't need it. Current Medications at Start of Encounter: Outpatient Medications Prior to Visit Medication Sig Dispense Refill ??? predniSONE (Deltasone) 10 mg Tablet Take 40 mg daily for 5 days, then 30 mg daily for 5 days then 20 mg daily for 5 days then 10 mg daily for 5 days then contact pulmonary clinic Dr. Hetal Ojeda to discuss. 60 tablet 0 ??? lisinopriL (Prinivil;Zestril) 20 mg [...] daily (after meals).) 60 capsule 0 ??? azithromycin (Zithromax) 250 mg Tablet Day1:take 2 tablets daily, Day 2- 5:Take one tablet daily(Patient not taking: Reported on 10/12/2020) 6 tablet 0 ??? codeine-guaiFENesin (guaiFENesin AC) 10-100 mg/5 mL Liquid Take 5 mLs by mouth 3 times daily asneeded for Cough. Do not take with ativan (Patient not taking: Reported on 02/13/2020) 120 mL 0 ??? busPIRone (BUSPAR) 15 mg Tablet Take 15 mg by mouth 3 times daily. No facility-administered medications prior to visit. Review of Systems: A focused ROS was completed and was positive as noted in HPI and otherwise negative. Physical Examination: BP (!) 145/93 Comment: Did not take medication ride was to early Pulse 73 Temp 36.7 ??C (98 ??F) (Temporal) Resp 16 Ht 175.3 cm (5' 9) Wt 90.7 kg (200 lb) SpO2 93% BMI 29.53 kg/m?? 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 SpO2 was 85% at rest at beginning of ambulatory O2 assessment, and he required 3L O2 to maintain SpO2 > 88% with ambulation of 375 feet. Labs, Microbiology and Imaging: I personally reviewed relevant laboratory, microbiologic and radiology results which were significant for: Chest CT 09/14/2020 images received and reviewed, severe emphysema, granulomatous and calcified mediastinal and hilar lymph nodes, 5 mm RML lung nodule, multifocal inflammatory findings consistent with pneumonia Immunization History: Flu vaccine: COVID-19 vaccine: not yet Pneumovax: Prevnar-13: Impression and Recommendations: Garret Barros is a 45 y/o man??who is an active cigarette and prior marijuana smoker with GOLD stage D COPD??with emphysema and concern for asthma-COPD overlap syndrome??with severe airflow obstruction and oxygen-dependence, frequent prednisone use, frequent acute exacerbations with diagnoses of pne umonia, who returns to pulmonary care with report of ongoing poor respiratory function and additional hospitalization for pneumonia this spring. His COPD remains suboptimally controlled. He says he is taking all of his inhaled medications as directed, and we will continue him on triple inhaled therapy. We discussed the importance of tobacco cessation, which I think is critical at this time given his progressive decline and recurrent exacerbations; he is motivated to quit but was not ready to set a quit date. He reports that prednisone does not make a substantial difference in his dyspnea, andhe has not had improved control while on prolonged course of prednisone this winter, and as such I am reluctant to start chronic prednisone given the risk of causing immunosuppression with relativelylittle benefit. Unfortunately he reports no benefit from azithromycin either. Options for treating his respiratory disease remain limited, though I am hopeful that his illness may stabilize if he quits smoking. He is prescribed oxygen which he was encouraged to continue to use 21/11 at 2-[address] imaging showed multifocal infiltrates consistent with pneumonia, chronic calcified lymphadenopathy, and one small 5 mm stable pulmonary nodule. F/u CT in 2 years would be appropriate for this small nodule, but that timing may be impacted by any interval chest CTs over the next 1-2 years. Summary Recommendations: -Continue current inhalers anoro ellipta daily, flovent 220 two puffs BID, combivent PRN, albuterolas needed -Continue supplemental oxygen use, 2 L at rest, 3 L with ambulation - Tobacco cessation again strongly advised; he plans to use patches - for 5 mm pulmonary nodule, next chest CT due around 08/2022 for f/u (2 years) - repeat nathaly and DLCO with next visit ?? Follow-up with in-office visit in 3 months. Thank you for involving me in Mr. Barros's care. Please feel free to contact me with any further questions or concerns. This visit included 6 minutes of tobacco cessation counseling. Hetal Ojeda MD [facility] PULMONOLOGY AT [facility] [id number] Dept: [phone] Loc: [phone] documented in this encounter Plan of Treatment Upcoming Encounters Date Type Department Care Team (Late st Contact Info) Description 03/18/2024 8:30 AM EST Appointment [place] [address] 03/18/2024 9:30 AM EST Office [place] [address] Hetal Ojeda MD [facility] [place] [address] documented as of this encounter Results * Pulmonary Function Testing (01/13/2021 8:16 AM EDT) FVC Actual Pre-BD 2.21 L COMPAS PFT FVC Pre-BD % of Predicted 44 % COMPAS PFT FVC Predicted 4.97 L COMPAS PFT FVC Pre-BD Z-Score -4.31 COMPAS PFT FVC Lower Limits of Normal 3.90 L COMPAS PFT FEV1 Actual Pre-BD 0.67 L COMPAS PFT FEV1 Pre-BD % of Predicted 17 % COMPAS PFT FEV1 Predicted 3.94 L COMPAS PFT FEV1 Pre-BD Z-Score -5.70 COMPAS PFT FEV1 Lower Limits of Normal 3.09 L COMPAS PFT FEV1 / FVC Actual Pre-BD 30 % COMPAS PFT FEV1/FVC Pre-BD Z-Score -5.26 COMPAS PFT FEV1 / FVC LLN 69 % COMPAS PFT [id number] Actual Pre-BD 0.18 L/s COMPAS PFT [id number] Pre-BD % of Predicted 5 % COMPAS PFT [id number] Predicted 3.67 L/s COMPAS PFT [id number] Pre-BD Z-Score -4.96 COMPAS PFT DLCO Hb Actual Pre-BD 11.32 mL/min/mmHg COMPAS PFT DLCO Hb Pre-BD % of Predicted 39 % COMPAS PFT DLCO Hb Pre-BD Z-Score -5.20 COMPAS PFT DLCO Hb Predicted 29.32 mL/min/mmHg COMPAS PFT DLCO UNC ACT PRE-BD 11.32 mL/min/mmHg COMPAS PFT DLCO UNC PRE-BD % of PRED 39 % COMPAS PFT DLCO UNC PRE-BD Z-SCORE -5.20 % COMPAS PFT DLCO UNC Predicted 29.32 mL/min/mmHg COMPAS PFT DLCO/VA Actual Pre-BD 2.94 mL/min/mmHg /L COMPAS PFT DLCO/VA Pre-BD % of Predicted 65 % COMPAS PFT DLCO/VA Pre-BD Z-Score -2.64 COMPAS PFT DLCO/VA Predicted 4.53 mL/min/mmHg /L COMPAS PFT Narrative COMPAS PFT - 01/13/2021 8:16 AM EDT FINDINGS: FEV1, FVC and FEV1/VC are reduced. Diffusion capacity not adjusted for hemoglobin is reduced, but the test could not be reproduced and did not meet ATS criteria. IMPRESSION: Spirometry demonstrates very severe (FEV1 < 35%) obstruction. Reduced FVC could represent co-existent restriction or air trapping. The presence of restriction or air trapping can be tested by measurement of lung volumes. Compared to the last study on 02/13/20, the FVC increased by 0.62 L and the FEV1 decreased by 0.5 L. Procedure Note Unknown - 01/13/2021 FINDINGS: FEV1, FVC and FEV1/VC are reduced. Diffusion capacity notadjusted for hemoglobin is reduced, but the test could not be reproduced and did not meet ATScriteria. IMPRESSION: Spirometry demonstrates very severe (FEV1 < 35%) obstruction. Reduced FVCcould represent co-existent restriction or air trapping. The presence of restriction orair trapping can be tested by measurement of lung volumes. Compared to the last study on02/13/20, the FVC increased by 0.62 L and the FEV1 decreased by 0.5 L. Hetal Ojeda MD PFT ORDERABLES COMPAS PFT documented in this encounter Visit Diagnoses Diagnosis Asthma-COPD overlap syndrome Lung nodule Solitary pulmonary nodule Dependence on supplemental oxygen Cigarette nicotine dependence with other nicotine-induced disorder History of pneumonia Personal history of pneumonia (recurrent) Asthma-COPD overlap syndrome documented in this encounter Care Teams Cable Wirer Relationship Specialty Start Date End Date Travis Castaneda MD [address] [place] [address] PCP - General Internal Medicine 10/29/18 09/27/23 documented as of this encounter
--- OUTSIDE RECORDS SUMMARY | 2024-02-29 09:00 | XMS_ITS | Encounter Summary ---
Author Organization [facility] Address [facility] [place] [address] Care Team Providers Care Mattress Renovator Name Role Phone Travis Castaneda MD Primary Care Provider [phone] Encounter Details Date Type Department Care Team (Late st Contact Info) Description 01/13/2021 8:30 AM EDT Office Visit Pulmonology at [facility] [place] [address] Hetal Ojeda MD [facility] [place] [address] Asthma-COPD overlap syndrome; Dependence on supplemental oxygen; Cigarette nicotine dependence with other nicotine-induced disorder; COPD exacerbation Social History Tobacco Use Types Packs/Day [...] Sign Reading Time Taken Comments Blood Pressure 84/49 01/13/2021 8:36 AM EDT Pulse 61 01/13/2021 8:36 AM EDT Temperature 37 ??C (98.6 ??F) 01/13/2021 8:3 6 AM EDT Respiratory Rate - - Oxygen Saturation 93% 01/13/2021 8:3 6 AM EDT on 2.5L of O2 Inhaled Oxygen Concentration - - Weight 88 kg (194 lb 0.1 oz) 01/13/2021 8:36 AM EDT Height 176.5 cm (5' 9.49) 01/13/2021 8 :36 AM EDT Body Mass Index 28.25 01/13/2021 8:36 AM EDT documented in this encounter Progress Notes * Hetal Ojeda MD - 01/13/2021 8:30 AM EDT Images from the original note were not included. [facility] Section of Pulmonary and Critical Care Medicine Outpatient Consultation Date of Encounter: 01/13/2021 Reason for Evaluation: Mr. Garret Barros returns [...] who was last seen in pulmonary clinic September 2020. Mr. Barros reports that he is again feeling much worse again over the past week or two. He was last seen in our office in September, and did not reach out about symptoms between visits. He says that he saw his PCP a few weeks ago, felt he was starting to feel a bit sick then but waited to do anything because of his upcoming pulmonary visit. Today he says he thinks he needs to go to the ED again. He reports worsening cough, chest pain when coughing, back pain, mucous production, chills, fatigue, wheezing. He says he occasionally coughs up bloody mucous, black crap. Not clear this is a new issue. Feels like he can't breath. Didn't take his inhalers this morning; he says this was because his ride came early, but he also says he gets up at 3 AM. Also reports missing his methadone dose this morning; thinks he's having chills because of this. He thinks he was last hospitalized at [facility] a few months ago, not clear when. Treated with prednisone then by his report (records unavailable.) In the past he has not reported much improvement with prednisone, but says that IV medicines in the hospital make his breathing better. He thinks he needs IV medicines again. He reports that he is taking anoro ellipta daily, flovent 2 times a day, and albuterol I and emiliesPRN. Used albuterol nebs frequently, feels they help. He doesn't think he's on prednisone currently; unclear last course. He is still smoking. Using chantix and patches to try to quit. He is down to a couple cigarettes per day. He is planning on quitting soon. Stopped smoking marijuana b/c if made his breathing much worse. Denies any EtOH use (quit 2 years ago) Has not had the covid19 vaccine. He is worried about it making him sicker. Denies recent sick contacts. He is using oxygen, 2LPM, uses night and day. Didn't bring with him today again though. Current Medications at Start of Encounter: Outpatient Medications Prior to Visit Medication Sig Dispense Refill ??? lisinopriL (Prinivil;Zestril) 20 mg Tablet Take [...] Take 400 mg by mouth nightly.) ??? ipratropium-albuterol (COMBIVENT RESPIMAT) 20-100 mcg/actuation Mist Inhale 1 puff into the lungs every 6 hours as needed for Wheezing. ??? albuterol 90 mcg/actuation HFA Aerosol Inhaler Inhale 2 puffs into the lungs every 6 hours as needed for Wheezing. Use with spacer ??? busPIRone (BUSPAR) 15 mg Tablet Take [...] Reported on 10/12/2020) 6 tablet 0 ??? predniSONE (Deltasone) 10 mg Tablet Take 40 mg daily for 5 days, then 30 mg daily for 5 days then 20 mg daily for 5 days then 10 mg daily for 5 days then contact pulmonary clinic Dr. Hetal Ojeda to discuss. (Patient not taking: Reported on 01/13/2021) 60 tablet 0 ??? codeine-guaiFENesin (guaiFENesin AC) 10-100 mg/5 mL Liquid Take 5 mLs by mouth 3 times daily asneeded for Cough. Do not take with ativan (Patient not taking: Reported on 02/13/2020) 120 mL 0 No facility-administered medications prior to visit. Review of Systems: A focused ROS was completed and was positive as noted in HPI and otherwise negative. Physical Examination: BP (!) 84/49 Pulse 61 Temp 37 ??C (98.6 ??F) (Temporal) Ht 176.5 cm (5' 9.49) Wt 88 kg (194 lb 0.1 oz) SpO2 93% Comment: on 2.5L of O2 BMI 28.25 kg/m?? GEN: NAD, alert, chronically ill appearing but not toxic appearing HEENT: MMM, clear OP, neck supple, nares patent, no significant discharge CV: RRR, normal S1, S2, no murmur PULM: normal work of breathing at rest and in conversation, again has diffusely diminished breath sounds, scattered wheeze, no focal crackles, air movement is decent, similar to prior ABD: soft, ND MSK: no joint swelling, R leg amputation, ambulatory EXT: NEURO: AAO, voice is clear Pulmonary Function [...] calcified mediastinal and hilar lymph nodes, stable 5 mm non-calcified RML lung nodule, multifocal inflammatory findings consistent with pneumonia Immunization History: Flu vaccine: COVID-19 vaccine: not yet Pneumovax: Prevnar-13: Impression and Recommendations: Garret Barros is a 45 y/o man??who is an active cigarette and prior marijuana smoker with GOLD stage D COPD??with severe emphysema and concern for asthma-COPD overlap, severe airflow obstruction, oxygen-dependence, frequent prednisone use, frequent acute exacerbations with diagnoses of pneumonia, who again returns to pulmonary clinic reporting acute on chronic respiratory exacerbation and stating that he needs to go to the ED. Spirometry shows worsening severe airflow obstruction, with FEV1 17% predicted. He does not appear to be in distress, but airflow is very poor and he appears diaphoretic. We had a mian conversation about both his severe progressive lung disease with need to quit smoking and focus on minimizing his risk for worsening lung disease. He understands that he has a high risk of dying from covid19 if he gets sick this year, and from continuing to smoke. We also had a mian discussion about the limitations of clinic-based care for acute respiratory exacerbations, as he frequently waits to contact medical providers when he is feeling sick, instead coming to clinic with a plan to also go to the ED the same day. I advised him that if he needs ED evaluation he should go to the nearest ED (here at [facility]), however he again refused this plan as he wants to be closer to home. He told me he planned to go to the ED at [facility] immediately followinghis visit. He declined to wait in clinic for us to get portable oxygen for him to take with him (ruslan again did not bring his home oxygen with him to this visit.) Overall, his COPD remains suboptimally controlled.He says he is taking all of his inhaled medications as directed, and we will continue him on triple inhaled therapy. He has reported that prednisone does not make a substantial difference in his dyspnea, and he did not have improved control while onprolonged course of prednisone last winter, and as such I am reluctant to start chronic prednisone g iven the risk of causing immunosuppression with relatively little benefit. No benefit from azithromycin either. He is prescribed oxygen which he was encouraged to continue to use / at 2-3 LPM; main limitationfor his oxygen seems to be that he does not bring it with him when he goes places such as our clinic. Repeat chest CT in 1-2 years would be appropriate for this small nodule, but that timing may be impacted by any interval chest CTs over the next year. We will wait until closer to the time and is dueto order it. Summary Recommendations: -Patient declined to be taken to the emergency room here at [facility], declined to wait for supplemental oxygen for travel, and told me that he planned to go to [facility] after he left our clinic this day. -Continue current inhalers anoro ellipta daily, flovent 220 two puffs BID, combivent PRN, albuterolas needed -Continue supplemental oxygen use, 2 L at rest, 3 L with ambulation - Tobacco cessation again strongly advised; may use patches - for 5 mm pulmonary nodule, next chest CT due in about 1 year or later (August 2021) -We may be able to offer assistance if he comes to clinic for hospital follow-up when he is not decompensated; we will try to arrange closer follow-up to achieve this Follow-up with in-office visit in 1 month Thank you for involving me in Mr. Barros's care. Please feel free to contact me with any further questions or concerns. This visit included 5 minutes of tobacco cessation counseling. Hetal Ojeda MD [facility] PULMONOLOGY AT [facility] [address] Dept: [phone] Loc: [phone] documented in this encounter Plan of Treatment Upcoming Encounters Date Type Department Care Team (Late st Contact Info) Description 03/18/2024 8:30 AM EST Appointment [place] [address] 03/18/2024 9:30 AM EST Office [place] [address] Hetal Ojeda MD [facility] [place] [address] documented as of this encounter Visit Diagnoses Diagnosis Asthma-COPD overlap syndrome Dependence on supplemental oxygen Cigarette nicotine dependence with other nicotine-induced disorder COPD exacerbation Obstructive chronic bronchitis with exacerbation documented in this encounter Care Teams Mattress Renovator Relationship Specialty Start Date End Date Travis Castaneda MD [address] [place] [address] PCP - General Internal Medicine 10/29/18 09/27/23 documented as of this encounter
--- OUTSIDE RECORDS SUMMARY | 2024-02-29 09:00 | XMS_ITS | Encounter Summary ---
Author Organization [facility] Address [facility] [place] [address] Care Team Providers Care Skein Yard Drier Name Role Phone Travis Castaneda MD Primary Care Provider [phone] Reason for Visit * Reason Onset Date Comments Other 09/17/2020 Unspecified Encounter Details Date Type Department Care Team (Late st Contact Info) Description 09/17/2020 Telephone Pulmonology at [facility] [place] [phone] Dawood Leyva RN Other (Unspecified ) Social History Tobacco Use Types Packs/Day Years [...] Telephone Encounter - Dawood Leyva RN - 09/17/2020 3:52 PM EDT Rec'd voicemail from patient, stating that he had been admitted to [facility], and needed to be scheduledfor an MRI and follow up as soon as possible. RN called [facility] and spoke to Med Surg floor 2, and spoke with pharmacist in charge. RN was notified that patient was admitted for COPD exacerbation, and just discharged prior to call. He was to have repeat chestxray in two weeks, along with a PCP follow up. It was also relayed that CT had been performed, along with his IVC filter was in place. RN sent faxed request to [facility] for copy of medical records of admission for continuity of care. Fax submission confirmation time stamped for 09/17/2020 @ 7912. RN sent faxed request to [facility] radiology for copy of images of admission for continuity of care. Faxsubmission confirmation time stamped for @ 6751. RN called patient back at home number, and was able to leave message for patient that RN was returning call, and asked for records. documented in this encounter Plan of Treatment Upcoming Encounters Date Type Department Care Team (Late st Contact Info) Description 03/18/2024 8:30 AM EST [place] [address] 03/18/2024 9:30 AM EST [place] [address] Hetal Ojeda MD [facility] [place] [address] documented as of this encounter Visit Diagnoses Not on filedocumented in this encounter Care Teams Skein Yard Drier Relationship Specialty Start Date End Date Travis Castaneda MD [address] [place] [address] PCP - General Internal Medicine 10/29/18 09/27/23 documented as of this encounter
--- OUTSIDE RECORDS SUMMARY | 2024-02-29 09:00 | XMS_ITS | Encounter Summary ---
Author Organization [facility] Address [facility] [place] [address] Care Team Providers Care Third Loader Name Role Phone Travis Castaneda MD Primary Care Provider [phone] Encounter Details Date Type Department Care Team (Latest Contact Info) Description 01/13/2021 8:00 AM EDT - 01/13/2021 11:59 PM EDT Hospital Encounter Pulmonology at [facility] [place] [phone] Asthma-COPD overlap syndrome Discharge Disposition: Home Social [...] report, gets take home doses, MIGUEL ANGEL [facility] [phone] last dose 12/12/22 per patient LORazepam (ATIVAN) [...] mouth 3 times daily. 60 capsule 11/26/2018 azithromycin (Zithromax) 250 mg Tablet Day1:take 2 [...] 03/18/2024 8:30 AM EST Appointment [place] [address] 03/18/2024 9:30 AM EST Office [place] [address] Hetal Ojeda MD [facility] [place] [address] documented as of this encounter Procedures Procedure Name Priority Date/Time Associated Diagnosis Comments COMMON PULMONARY FUNCTION TEST Routine 01/13/2021 8:16 AM EDT Asthma-COPD overlap syndrome documented in this encounter Results * Pulmonary [...] / FVC LLN 69 % COMPAS PFT WPO83-01 Actual Pre-BD 0.18 L/s COMPAS PFT YKT96-78 Pre-BD % of Predicted 5 % COMPAS PFT BIH39-88 Predicted 3.67 L/s COMPAS PFT AHB19-10 Pre-BD Z-Score -4.96 COMPAS PFT DLCO Hb [...] syndrome documented in this encounter Care Teams Third Loader Relationship Specialty Start Date End Date Travis Castaneda MD [address] [place] [address] PCP - General Internal Medicine 7/1/19 5/29/24 documented as of this encounter
--- OUTSIDE RECORDS SUMMARY | 2024-02-29 09:00 | XMS_ITS | Encounter Summary ---
Author Organization Count Includes [facility] Address [facility] [place] [address] Care Team Providers Care Sales Representative Facility Services Name Role Phone Travis Castaneda MD Primary Care Provider [phone] Encounter Details Date Type Department Care Team (Late st Contact Info) Description 09/25/2020 Telephone [place] [phone] Alda Shah Social History Tobacco Use Types [...] 03/18/2024 8:30 AM EST Appointment [place] [phone] 03/18/2024 9:30 AM EST Office [place] [address] Hetal Ojeda MD [facility] [place] [address] documented as of this encounter Visit Diagnoses Not on filedocumented in this encounter Care Teams Sales Representative Facility Services Relationship Specialty Start Date End Date Travis Castaneda MD [address] [place] [address] PCP - General Internal Medicine 10/29/18 09/27/23 documented as of this encounter
--- OUTSIDE RECORDS SUMMARY | 2024-02-29 09:00 | XMS_ITS | Encounter Summary ---
Author Organization [facility] Address [facility] [place] [address] Care Team Providers Care Neurodiagnostic Technician Name Role Phone Travis Castaneda MD Primary Care Provider [phone] Reason for Visit * - Closed Specialty Diagnoses / Procedures Referred By Gulshan arguelles Referred To Contact Procedures Film Library- Storage Only CT Chest Abdomen Pelvis Travis Castaneda MD [address] [place] [address] Referral ID Status Reason Start Date Expiration Date Visits Re quested Visits Authorized [id number] Closed 09/18/2020 09/18/2021 1 1 Encounter Details Date Type Department Care Team (Late Contact Info) Description 09/14/2020 Ancillary Procedure Radiology Library at [facility] [place] [phone] Travis Castaneda MD [address] [place], [place] [address] Social History Tobacco Use Types Packs/Day Years [...] 8:30 AM EST Appointment Pulmonology at [facility] [place] [phone] 03/18/2024 9:30 AM EST Office [place] [address] [facility] [place] [address] documented as of this encounter Procedures Procedure Name Priority Date/Time Associated Diagnosis Comments FILM LIBRARY STORAGE ONLY CT CHEST ABDOMEN PELVIS Routine 09/14/2020 12:00 AM EDT documented in this encounter Results * Film Library- Storage Only CT Chest Abdomen Pelvis (09/14/2020 12:00 AM EDT) Narrative [facility] - 09/18/2020 1:10 AM EDT This exam is auto-finalizing. It's purpose is for storage only. Travis Castaneda MD IMG FILM LIBRARY ORD ERABLES [place], [place] documented in this encounter Visit Diagnoses Not on filedocumented in this encounter Care Teams Neurodiagnostic Technician Relationship Specialty Start Date End Date Travis Castaneda MD [address] [place] [address] PCP - General Internal Medicine 10/29/18 09/27/23 documented as of this encounter
--- OUTSIDE RECORDS SUMMARY | 2024-02-29 09:00 | XMS_ITS | Encounter Summary ---
Author Organization [facility] Address [facility] [place] [address] Care Team Providers Care Mobile Paint Specialist Name Role Phone Travis Castaneda MD Primary Care Provider + [phone] Encounter Details Date Type Department Care Team (Late Contact Info) Description 04/05/2021 [place] [phone] Alda Shah Social History Tobacco Use Types [...] 03/18/2024 8:30 AM EST [place]oint[place] [phone] 03/18/2024 9:30 AM EST Office [place] [address] Hetal Ojeda MD [facility] [place] [address] documented as of this encounter Visit Diagnoses Not on filedocumented in this encounter Care Teams Mobile Paint Specialist Relationship Specialty Start Date End Date Travis Castaneda MD [address] [place], [place] [address] PCP - General Internal Medicine 10/29/18 09/27/23 documented as of this encounter
--- OUTSIDE RECORDS SUMMARY | 2024-02-29 09:00 | XMS_ITS | Encounter Summary ---
Author Organization [facility] [place] [address] Care Team Providers Care Retail Account Executive Name Role Phone Travis Castaneda MD Primary Care Provider [phone] Encounter Details Date Type Department Care Team (Late st Contact Info) Description 12/24/2021 Telephone [place] [address] Sondra Mullen Social History Tobacco [...] * Telephone Encounter - Sondra Mullen - 12/24/2021 10:00 AM EDT sched kavon trinidad in May added to waitlist pt aware dtl sent appt letter documented in this encounter Plan of Treatment Upcoming Encounters Date Type Department Care Team (Late st Contact Info) Description 03/18/2024 8:30 AM EST Appointment [place] [phone] 03/18/2024 9:30 AM EST Office [place] [address] Hetal Trinidad MD [facility] [place] [address] documented as of this encounter Visit Diagnoses Not on filedocumented in this encounter Care Teams Retail Account Executive Relationship Specialty Start Date End Date Travis Castaneda MD [address] [place] [address] PCP - General Internal Medicine 10/29/18 09/27/23 documented as of this encounter
--- OUTSIDE RECORDS SUMMARY | 2024-02-29 09:00 | XMS_ITS | Encounter Summary ---
Author Organization [facility] Address [facility] [place] [address] Care Team Providers Care Shadowgraph Operator Name Role Phone Travis Castaneda MD Primary Care Provider + [phone] Encounter Details Date Type Department Care Team (Late Contact Info) Description 05/11/2021 Telephone Pulmonology at [facility] [place] [address] Dawood Leyva RN Social History Tobacco Use [...] Telephone Encounter - Dawood Leyva RN - 05/11/2021 9:24 AM EST Rec'd voicemail from patient, needing assistance with scheduled appointment information. He notes that he was in need of response today to set up transportation through [facility]. Patient was reached, and confirmed time and date of 05/19/2021 @ 0830. RN also relayed that this was with Dr. Zena Sheth, per Dr. Hetal Ojeda. Patient denied any other needs at this juncture. documented in this encounter Plan of Treatment Upcoming Encounters Date Type Department Care Team (Late st Contact Info) Description 03/18/2024 8:30 AM EST [place] [address] 03/18/2024 9:30 AM EST [place] [address] Hetal Ojeda MD [facility] [place] [address] documented as of this encounter Visit Diagnoses Not on filedocumented in this encounter Care Teams Shadowgraph Operator Relationship Specialty Start Date End Date Travis Castaneda MD [address] [place] [address] PCP - General Internal Medicine 10/29/18 09/27/23 documented as of this encounter
--- OUTSIDE RECORDS SUMMARY | 2024-02-29 09:00 | XMS_ITS | Encounter Summary ---
Author Organization [facility] Address [facility] [place] [address] Care Team Providers Care Warehouse Analyst Name Role Phone Travis Castaneda MD Primary Care Provider [phone] Encounter Details Date Type Department Care Team (Late st Contact Info) Description 12/17/2021 Telephone [place] [address] Emma Kang RMA Social History [...] Telephone Encounter - Emma Kang RMA - 12/17/2021 4:49 PM EDT Phone call attempt made to pt unsuccessful. Allergies, meds & tobacco not reviewed. documented in this encounter Plan of Treatment Upcoming Encounters Date Type Department Care Team (Late st Contact Info) Description 03/18/2024 8:30 AM EST Appointment [place] [address] 03/18/2024 9:30 AM EST Office [place] [address] Hetal Ojeda MD [facility] [place] [address] documented as of this encounter Visit Diagnoses Not on filedocumented in this encounter Care Teams Warehouse Analyst Relationship Specialty Start Date End Date Travis Castaneda MD [address] [place] [address] PCP - General Internal Medicine 10/29/18 09/27/23 documented as of this encounter
--- OUTSIDE RECORDS SUMMARY | 2024-02-29 09:00 | XMS_ITS | Encounter Summary ---
Author Organization [facility] Address [facility] [place] [address] Care Team Providers Care Police Superintendent Name Role Phone Travis Castaneda MD Primary Care Provider [phone] Encounter Details Date Type Department Care Team (Late Contact Info) Description 05/06/2021 [place] [address] Alda Shah Social History Tobacco Use Types [...] 03/18/2024 8:30 AM EST Appointment [place] [phone] 03/18/2024 9:30 AM EST Office [place] [address] Hetal Ojeda MD [facility] [address] documented as of this encounter Visit Diagnoses Not on filedocumented in this encounter Care Teams Police Superintendent Relationship Specialty Start Date End Date Travis Castaneda MD [address] [place], [place] [address] PCP - General Internal Medicine 10/29/18 09/27/23 documented as of this encounter
--- OUTSIDE RECORDS SUMMARY | 2024-02-29 09:00 | XMS_ITS | Encounter Summary ---
Author Organization [facility] Address [facility] [place] [address] Care Team Providers Care Fashion Artist Name Role Phone Travis Castaneda MD Primary Care Provider [phone] Reason for Referral * Diagnostic Test (Routine) - Closed Specialty Diagnoses / Procedures Referred By Gulshan arguelles Referred To Contact Radiology Diagnoses Lung nodule Procedures CT Chest wo Contrast (Generic) Hetal Ojeda MD [facility] [address] [facility] [place] [address] Referral ID Status Reason Start Date Expiration Date V isits Requested Visits Authorized [id number] Closed Specialty Service Requested 05/19/2021 11/16/2022 1 1 Encounter Details Date Type Department Care Team (Late st Contact Info) Description 05/19/2021 8:30 AM EST Office [place] [address] Hetal Ojeda MD [facility] [place] [address] Lung nodule; Asthma-COPD overlap syndrome; Dependence on supplemental oxygen; [...] Sign Reading Time Taken Comments Blood Pressure 173/89 05/19/2021 8:13 AM EST Pulse 88 05/19/2021 8:13 AM EST Temperature 37 ??C (98.6 ??F) 05/19/2021 8:13 AM EST Respiratory Rate 16 05/19/2021 8:13 AM EST Oxygen Saturation 94% 05/19/2021 8:13 AM EST Inhaled Oxygen Concentration - - Weight 85.3 kg (188 lb) 05/19/2021 8:13 AM EST Height 176.5 cm (5' 9.49) 05/19/2021 8:13 AM ES T Body Mass Index 27.37 05/19/2021 8:13 AM EST documented in this encounter Progress Notes * Hetal Ojeda MD - 05/19/2021 8:30 AM EST Images from the original note were not included. [facility] Section of Pulmonary and Critical Care Medicine Outpatient Consultation Date of Encounter: 05/19/2021 Reason for Evaluation: Mr. Garret Barros returns [...] who was last seen in pulmonary clinic December 2020. Mr. Barros reports that he feels his breathing is getting harder over time. He reports he was diagnosed with flu 10 days ago, had increased congestion, cough, more dyspnea. Isfeeling a bit better now. Tells me he tested negative for covid then. He was not put on antibioticsby his report. I do not have the primary report from this encounter. He is very fatigued. He has chest discomfort when coughing. Still has a lot of mucous chronically, still coughing a lot, wheezing. No fevers. Gets short of breath going up 1 flight of stairs, sometimes stops partway up to catch his breath. He estimates he can walk 70 yards to his mailbox, then is too short of breath to continue. Doesn't domuch activity other than this. He says he is using all of his inhalers, is able to identify flovent as 2 puffs BID, and anoro ellipta as once daily. Feels combivent is helping a lot. He tells me he uses his oxygen all the time, but didn't bring it to clinic again. He can't really explain why. Only using it on 2 (should be 3 with activity.) Denies any recent hospitalizations or recent prednisone use. Has occasional headaches, less so than before. Denies LE edema. He has cut down to 10 cigarettes per day, down from 15. He finds the patches helpful. Motivated to quit soon he says. Stopped smoking marijuana a while ago b/c if made his breathing much worse. Denies any EtOH use (quit 2 years ago) Just got his first covid19 vaccine, moderna on 05/10/21; plans to get his second soon. Current Medications at Start of Encounter: Outpatient [...] HPI and otherwise negative. Physical Examination: BP 173/89 Pulse 88 Temp 37 ??C (98.6 ??F) (Temporal) Resp 16 Ht 176.5 cm (5' 9.49) Wt 85.3 kg (188 lb) SpO2 94% BMI 27.37 kg/m?? GEN: NAD, alert, interactive and appropriate HEENT: MMM, neck supple, no adenopathy CV: RRR, normal S1, S2, no murmur PULM: normal work of breathing, breath sounds diffusely diminished, soft end exp wheeze, no crackles, better air movement than on previous exams ABD: soft, ND MSK: no joint swelling, R leg amputation, he is ambulatory NEURO: AAO, voice is [...] pneumonia Immunization History: Flu vaccine: COVID-19 vaccine: has received first dose of moderna Pneumovax: Prevnar-13: Impression and Recommendations: Garret Barros is a 45 y/o man??who is an active cigarette and prior marijuana smoker with GOLD stage D COPD??with severe emphysema and concern for asthma-COPD overlap, severe airflow obstruction, oxygen-dependence, frequent prednisone use, frequent acute exacerbations with diagnoses of pneumonia, and now recent flu infection. Evaluation at this visit was notable for somewhat improved respiratory exam relative to previous clinic evaluations, though there was persistent wheezing. Recent spirometry showed severe airflow obstruction, with FEV1 17% predicted, that at that time he was experiencing a subacute exacerbation and baseline FEV1 may hopefully be somewhat higher. Recently increased dyspnea may be secondary to his influenza infection. He is taking some positive steps to address his respiratory health, including decreasing tobacco use and initiation of covid19 vaccination. I applauded his efforts and again counseled him on the importance of tobacco cessation. He declines medical assistance with this currently. I think tobacco cessation is paramount to addressing his dyspnea given his tendency toward frequent exacerbations. He is prescribed supplemental O2 2-3LPM, and was reminded to use this consistently. He did not bring his O2 tank with him again today. In reviewing his inhaled therapies, he is able to identify his currently inhalers and reports consistent use. He remains on triple inhaled therapy with anoro and flovent. He has reported that prednisone does not make a substantial difference in his dyspnea, and he did not have improved control while on prolonged course of prednisone last winter, so we will avoid chronic prednisone use. He also previously reported no benefit from trial of chronic azithromycin. He has evidence of prior granulomatous disease on chest CT, and one new 5 mm nodule which was stable on most recent chest CT from 08/2020. Repeat CT at 12 months is indicated, and we reviewed this option. He is interested in following up on this finding, and I am ordering the CT for this coming August 2021. Summary Recommendations: -Continue current inhalers anoro ellipta daily, flovent 220 two puffs BID, combivent PRN, albuterolas needed -Continue supplemental oxygen use, 2 L at rest, 3 L with ambulation, encouraged to take it with himincluding to appointments as will be most beneficial when active - Tobacco cessation again strongly advised; may use patches and he declines other assistance - he would be a great candidate for pulmonary rehab; we will keep talking about this option; would need to pursue locally given distance from our center - for 5 mm pulmonary nodule, next chest CT due at 12 months (August 2021), ordered Follow-up with in-office visit in 4 months Thank you for involving me in Mr. Barros's care. Please feel free to contact me with any further questions or concerns. This visit included 4 minutes of tobacco cessation counseling. Hetal Ojeda MD [facility] PULMONOLOGY AT [facility] [address] Dept: [phone] Loc: [phone] documented in this encounter Plan of Treatment Upcoming Encounters Date Type Department Care Team (Muna juárez Contact Info) Description 03/18/2024 8:30 AM EST Appoint[place] [address] 03/18/2024 9:30 AM EST [place] [address] Hetal Ojeda MD [facility] [place] [address] documented as of this encounter Results * CT Chest wo [...] who have questions please contact the health team primary care physician that requested your imaging first. ? Narrative [...] the visceral organs, mediastinum, and vascular structures. Coating Operator Images: Noncontributory. Pulmonary parenchyma: There is [...] at multiple levels. Procedure Note Anjum Bueno, DO - 09/15/2021 EXAMINATION: CT CHEST WO CONTRAST [...] of thevisceral organs, mediastinum, and vascular structures. Coating Operator Images: Noncontributory. Pulmonary parenchyma: There is [...] patients who have questions please contactthe health team primary care physician that requested your imaging first. Electronically signed by: Anjum Bueno DO, [facility]([phone]), at 09/15/2021 2:16 PM Hetal Ojeda MD IMG CT ORDERABLES documented in this encounter Visit Diagnoses Diagnosis Lung nodule Solitary pulmonary nodule Asthma-COPD overlap syndrome Dependence on supplemental oxygen Cigarette nicotine dependence with other nicotine-induced disorder Lung nodule Solitary pulmonary nodule documented in this encounter Care Teams Fashion Artist Relationship Specialty Start Date End Date Travis Castaneda MD [address] [place] [address] PCP - General Internal Medicine 10/29/18 09/27/23 documented as of this encounter
--- OUTSIDE RECORDS SUMMARY | 2024-02-29 09:00 | XMS_ITS | Encounter Summary ---
Author Organization [facility] Address [facility] [place] [address] Care Team Providers Care Patrol Sergeant Sheriff'S Office Name Role Phone Travis Castaneda MD Primary Care Provider [phone] Encounter Details Date Type Department Care Team (Latest Contact Info) Description 05/23/2022 Travel Social History Tobacco Use Types Packs/Day [...] 03/18/2024 8:30 AM EST Appointment [place] [address] 03/18/2024 9:30 AM EST Office [place] [address] Hetal Ojeda MD [facility] [place] [address] documented as of this encounter Visit Diagnoses Not on filedocumented in this encounter Additional Health Concerns Infection Onset Date Last Indicated Resolved Time Rule Out Respiratory 05/23/2022 05/23/2022 023 3:24 PM EST Rule Out COVID-19 05/23/2022 05/23/2022 05/23/2022 3:24 PM EST documented as of this encounter Care Teams Patrol Sergeant Sheriff'S Office Relationship Specialty Start Date End Date Travis Castaneda MD [address] [place] [address] PCP - General Internal Medicine 10/29/18 09/27/23 documented as of this encounter
--- OUTSIDE RECORDS SUMMARY | 2024-02-29 09:00 | XMS_ITS | Encounter Summary ---
Author Organization [facility] Address [facility] [place] [address] Care Team Providers Care Survey Worker Name Role Phone Travis Castaneda MD Primary Care Provider [phone] Encounter Details Date Type Department Care Team (Late st Contact Info) Description 09/15/2021 10:30 AM EDT Office Visit Pulmonology at [facility] [place] [address] Hetal Ojeda MD [facility] [address] [place] [address] COPD exacerbation; Asthma-COPD overlap syndrome; Dependence on supplemental [...] Sign Reading Time Taken Comments Blood Pressure 156/100 09/15/2021 10:01 AM EDT Pulse 81 09/15/2021 10:01 AM EDT Temperature 36.2 ??C (97.2 ??F) 09/15/2021 1 0:01 AM EDT Respiratory Rate 20 09/15/2021 10:0 1 AM EDT Oxygen Saturation 95% 09/15/2021 10: 01 AM EDT oxygen sat went down to 88 without oxygen, fluctuated Inhaled Oxygen Concentration - - Weight 83.5 kg (184 lb) 09/15/2021 10:0 1 AM EDT self-reported Height 176.5 cm (5' 9.5) 09/15/2021 10 :01 AM EDT Body Mass Index 26.78 09/15/2021 10:01 AM EDT documented in this encounter Progress Notes * Hetal Ojeda MD - 09/15/2021 10:30 AM EDT Images from the original note were not included. [facility] Section of Pulmonary and Critical Care Medicine Outpatient Consultation Date of Encounter: 09/15/2021 Reason for Evaluation: Mr. Garret Barros returns [...] was last seen in pulmonary clinic May 2021. reports a variety of recurrent complaints. He says that he is having more respiratory symptoms again over the past week. Seen at [facility] ED last , given prednisone and azithromyic x 5 days. He wishes he had been admitted. He does not think they helped. He has green sputum production. Diarrhea yesterday. Feeling more short of breath. Has chest pains on both sides of his lungs, reports worse than before. He tells me he had a fever last night, unable to quantify. He has headaches, recurrent. He has chronic dyspnea, including dyspnea going up a flight of stairs and on moderate distances. Also has chronic cough, congestion, wheezing. He reports he is using his oxygen. Tank ran out on way to the hospital today so he again arrived without it. SpO2 was 88% on arrival on room air. He has some new left leg edema. Complains of stomach pain. Tells me this started a couple days ago. He reports consistent use of inhalers anoro ellipt and flovent. He tells me he is having trouble swallowing doesn't know why. Thinks he needs to be admitted for fluids, also tells me he thinks he has cancer somewhere because he feels so limited in function. He has not had significant weight loss. He tells me he has quit smoking recently, unclear if that is zero cigarettes consistently or a day without a cigarette. He had difficulty answering questions about quantity of smoking. Stopped smoking marijuana a while ago b/c if made his breathing much worse. Denies any EtOH use (quit 2 years ago) Has had covid19 vaccine primary series. Current Medications at Start of Encounter: Outpatient Medications Prior to Visit Medication Sig Dispense Refill ??? azithromycin (Zithromax) 250 mg Tablet Day1:take 2 tablets daily, Day 2- 5:Take one tablet daily(Patient not taking: Reported on 10/12/2020) 6 tablet 0 ??? lisinopriL (Prinivil;Zestril) 20 mg Tablet Take 20 mg by mouth daily. ??? Anoro Ellipta 62.5-25 mcg/actuation Disk with Device Inhale 1 Inhalation into the lungs daily. ??? Flovent HFA 220 mcg/actuation HFA Aerosol Inhaler Inhale 2 puffs into the lungs 2 times daily. ??? codeine-guaiFENesin (guaiFENesin AC) 10-100 mg/5 mL Liquid Take 5 mLs by mouth 3 times daily asneeded for Cough. Do not take with ativan (Patient not taking: Reported on 02/13/2020) 120 mL 0 ??? methadone (Dolophine) 10 [...] and otherwise negative. Physical Examination: BP (!) 156/100 Pulse 81 Temp 36.2 ??C (97.2 ??F) (Temporal) Resp 20 Ht 176.5 cm (5' 9.5) Wt 83.5 kg (184 lb) Comment: self-reported SpO2 95% Comment: oxygen sat went down to 88 without oxygen, fluctuated BMI 26.78 kg/m?? GEN: NAD, alert, interactive, conversational HEENT: MMM, neck supple, no adenopathy CV: RRR, normal S1, S2, no murmur PULM: normal work of breathing, diminished breath sounds, slight wheeze but generally good air movement, no crackles ABD: soft, ND MSK: no [...] and Recommendations: Garret Barros is a 46 y/o man??who is an active cigarette and prior marijuana smoker with GOLD stage D COPD??with emphysema and concern for asthma-COPD overlap, severe airflow obstruction, oxygen-dependence, frequent prednisone use, frequent acute respiratory exacerbations from COPD exacerbations and pneumonias. CT imaging with this visit confirms stable small (5 mm) pulmonary nodule, and some evolution of pulmonary scarring in areas of previous pneumonia, but no new acute process. He has severe airflow obstruction with FEV1 as low as 17% predicted and very little respiratory reserve. Again today he expressed that he wished to be hospitalized. I did not identify a pulmonary indication for hospitalization and he declined to go to the ED for a general evaluation unless we were able to promise he would be admitted. He was open to a short extension of prednisone for subacute COPD exacerbation. He is taking some positive steps to address his respiratory health, including decreasing tobacco use. We again reviewed that tobacco cessation is paramount to addressing his dyspnea and frequent exacerbations. He is prescribed supplemental O2 2-3LPM, and was reminded to use this consistently. He did not bring his O2 tank with him again today, and he declined to wait for additional O2 supplies in clinic. He remains on triple inhaled therapy with anoro and flovent. He has not benefited a lot from bursts of prednisone so we will avoid chronic po steroid initiation, and previously reported no benefit from trial of chronic azithromycin. He has evidence of prior granulomatous disease on chest CT. Small (5 mm) pulmonary nodule in RML isstable again. No further imaging recommended now; will qualify for lung cancer screening when he turns 53. Summary Recommendations: -Continue current inhalers anoro ellipta daily, flovent 220 two puffs BID, combivent PRN, albuterolas needed -Continue supplemental oxygen use, 2 L at rest, 3 L with ambulation, encouraged to take it with himincluding to appointments as will be most beneficial when active - complete and sustained tobacco cessation again strongly advised - he would be a great candidate for pulmonary rehab;he is not currently interested - can start screening chest CTs at age 53 Follow-up with in-office visit in 3 months Thank you for involving me in Mr. Barros's care. Please feel free to contact me with any further questions or concerns. Hetal Ojeda MD [facility] PULMONOLOGY AT [facility] [address] Dept: [phone] Loc: [phone] documented in this encounter Plan of Treatment Upcoming Encounters Date Type Department Care Team (Late st Contact Info) Description 03/18/2024 8:30 AM EST Appointment [place] [address] 03/18/2024 9:30 AM EST Office Visit [place] [address] Hetal Ojeda MD [facility] [place] [address] documented as of this encounter Visit Diagnoses Diagnosis COPD exacerbation Obstructive chronic bronchitis with exacerbation Asthma-COPD overlap syndrome Dependence on supplemental oxygen Cigarette nicotine dependence with other nicotine-induced disorder documented in this encounter Care Teams Survey Worker Relationship Specialty Start Date End Date Travis Castaneda MD [address] [place] [address] PCP - General Internal Medicine 10/29/18 09/27/23 documented as of this encounter
--- OUTSIDE RECORDS SUMMARY | 2024-02-29 09:00 | XMS_ITS | Encounter Summary ---
Author Organization [facility] Address [facility] [place] [address] Care Team Providers Care Primary Clinician Name Role Phone Travis Castaneda MD Primary Care Provider [phone] Encounter Details Date Type Department Care Team (Late Contact Info) Description 05/14/2021 Telephone [place] [phone] Alda Shah Social History Tobacco Use Types [...] 03/18/2024 8:30 AM EST Appointment [place] [phone] 03/18/2024 9:30 AM EST Office [place] [address] Hetal Ojeda MD [facility] [place] [address] documented as of this encounter Visit Diagnoses Not on filedocumented in this encounter Care Teams Primary Clinician Relationship Specialty Start Date End Date Travis Castaneda MD [address] [place], [place] [address] PCP - General Internal Medicine 10/29/18 09/27/23 documented as of this encounter
--- OUTSIDE RECORDS SUMMARY | 2024-02-29 09:00 | XMS_ITS | Encounter Summary ---
Author Organization [facility] Address [facility] [place] [place] [address] Care Team Providers Care Senior Front End Developer Name Role Phone Travis Castaneda MD Primary Care Provider [phone] Reason for Referral * Rehabilitation (Routine) - Closed Specialty Diagnoses / Procedures Referred By Gulshan arguelles Referred To Contact Diagnoses Asthma-COPD overlap syndrome Hetal Ojeda MD [facility] [place] [address] Referral ID Status Reason Start Date Expiration Date V isits Requested Visits Authorized [id number] Closed Evaluate and Treat 12/20/2021 06/18/2022 36 36 Encounter Details Date Type Department Care Team (Late st Contact Info) Description 12/20/2021 1:30 PM EDT Office Visit [place] [address] Hetal Ojeda MD [facility] [place] [address] Asthma-COPD overlap syndrome; Cigarette nicotine dependence with other nicotine-induced disorder; Dependence on supplemental oxygen Social History Tobacco [...] Sign Reading Time Taken Comments Blood Pressure 162/84 12/20/2021 1:24 PM EDT Pulse 65 12/20/2021 1:24 PM EDT Temperature 36.1 ??C (97 ??F) 12/20/2021 1:24 PM EDT Respiratory Rate 16 12/20/2021 1:24 PM EDT Oxygen Saturation 90% 12/20/2021 1:24 PM EDT Inhaled Oxygen Concentration - - Weight 83.5 kg (184 lb) 12/20/2021 1:24 PM EDT Height 175.3 cm (5' 9) 12/20/2021 1:24 PM EDT Body Mass Index 27.17 12/20/2021 1:24 PM EDT documented in this encounter Patient Instructions * Patient Instructions* Hetal Ojeda MD - 12/20/2021 1:30 PM EDT I am referring you to pulmonary rehab. We will look into the nearest location to you. Please quit smoking. We need to repeat your breathing tests soon. Think about the option of an endobronchial valve to plug up some of the emphysema; this would require evaluation by our interventional non morse intercept technician and you would need to complete pulmonary rehab before doing this. documented in this encounter Progress Notes * Hetal Ojeda MD - 12/20/2021 1:30 PM EDT Images from the original note were not included. [facility] Section of Pulmonary and Critical Care Medicine Outpatient Consultation Date of Encounter: 12/20/2021 Reason for Evaluation: Mr. Garret Barros returns [...] who was last seen in pulmonary clinic August 2021. reports ongoing dyspnea on exertion, which he feels is worsening over time. Gets short of breath walking, stops to catch his breathing frequently. Does use albuterol PRN some, but is unsure if it helps. Has chronic dyspnea, never fully relieved. He gets chest discomfort when coughing/dyspneic but denies focal chest pain. He reports today is pretty bad. Humidity may be a factor. He did not bring his oxygen into the hospital today; tells me it's in his car. He reports he does not use his oxygen when walking around outside of his house because it is heavy;this has been a longstanding difficulty. He does use in his house with a long cord. He has an infection on his left leg, tells me he fell down a month ago and sustained injury that became infected, has been on abx for this recently. There is a bandage on his leg. Says he was hospitalized for leg infection recently (a week ago? Timeline unclear) - reports I don't know why they ain't keeping me for this leg. He has cut down on cigarettes but is still smoking some, tells me a pack lasts about a month (about1 cigarette on average per day.) He wants to quit. He has quit marijuana for the most part recently - it was causing too much exacerbation of lung disease. He thinks he still has swelling in his left ankle; this has been a chronic issue this year. He reports he is able to swallow liquids and soft foods okay, like ravioli. He has no teeth so chewing is hard and he avoids some foods. Denies mian aspiration. He reports consistent use of inhalers anoro ellipta and flovent. Uses albuterol MDI about 4 times a day. Home O2 is 2.5 LPM when using it. Has had covid19 vaccine primary series. Current [...] 8 hours as needed for Pain. ??? acetaminophen (TYLENOL) 500 mg Tablet Take [...] daily (after meals).) 60 capsule 0 ??? codeine-guaiFENesin (guaiFENesin AC) 10-100 mg/5 mL Liquid Take 5 mLs by mouth 3 times daily asneeded for Cough. Do not take with ativan (Patient not taking: No sig reported) 120 mL 0 ??? calcium carbonate (TUMS) 200 mg calcium (500 mg) Tablet, Chewable Take 2 tablets by mouth 3 times daily as needed for Heartburn. No facility-administered medications prior to visit. Review of Systems: A focused ROS was completed and was positive as noted in HPI and otherwise negative. Physical Examination: BP 162/84 Pulse 65 Temp 36.1 ??C (97 ??F) (Temporal) Resp 16 Ht 175.3 cm (5' 9) Wt 83.5 kg (184 lb) SpO2 90% BMI 27.17 kg/m?? GEN: NAD, alert, interactive, conversational, more focused and calmer than at previous visits HEENT: MMM, neck supple, no adenopathy CV: RRR, normal S1, S2, no murmur PULM: normal work of breathing, continued diminished breath sounds but no focal crackles or wheezing ABD: soft, ND MSK: no joint swelling, R leg amputation, left leg has clean bandages on and there is trace edema present; he is ambulatory NEURO: AAO, voice is [...] Recommendations: Garret Barros is a 46 y.o. man??who is an active cigarette and prior marijuana smoker with GOLD stage D COPD??with emphysema and concern for asthma-COPD overlap, with severe airflow obstruction, oxygen-dependence, frequent prednisone use, frequent acute respiratory exacerbations and hospitalizations for COPD exacerbations and pneumonias; at this visit he appeared the best I have ever seen him with less apparent dyspnea than at previous visits though he still reports very significant burden of chronic dyspnea. Prior testing has shown severe airflow obstruction with FEV1 as low as 17% predicted and very little respiratory reserve; I would like to repeat this to see if this is truly his baseline lung function. We again discussed the critical importance of tobacco cessation, as smoking seems to be a significant trigger for respiratory symptoms. He is smoking about 1 cigarette per day, so medication assistance other than nicotine PRN (consider lozenge as edentulous) is not likely to help. He agreed to workon quitting. I think he could benefit a lot from pulmonary rehab. He is open to this if near his house. I am placing a referral for pulmonary rehab. We also discussed the possibility of pursuing endobronchial valve placement for emphysema; if he isinterested in this will need to participate in pulmonary rehab first. For ongoing management of COPD he remains on triple inhaled therapy with anoro and flovent, and is prescribed oxygen 2-3LPM for use with activity though he currently chooses to limit this when out ofthe house. I encouraged him to use this with activity, and we will reassess amount of O2 needed with ambulation soon to ensure rx and tank size are optimized. He has variable response to prednisone so this has not been used chronically, and did not benefit from a trial of azithromycin. CT imaging August 2021 demonstrated one stable small (5 mm) pulmonary nodule, and some evolution of pulmonary scarring in areas of previous pneumonia, but no new acute process. He will qualify for lung cancer screening CTs when he turns 53. Summary Recommendations: -Continue current inhalers anoro ellipta daily, flovent 220 two puffs BID, combivent PRN, albuterolas needed -Continue supplemental oxygen use, 2 L at rest, 3 L with ambulation, encouraged to use - complete and sustained tobacco cessation again strongly advised - Referral to pulmonary rehab placed, will need a location near him - can start screening chest CTs at age 53 - repeat nathaly/DLCO/home O2 re-assessment next available Follow-up with in-office visit in 3 months [...] on day of visit. Hetal Ojeda MD [facility] PULMONOLOGY AT [facility] [address] Dept: [phone] Loc: [phone] documented in this encounter Plan of Treatment Upcoming Encounters Date Type Department Care Team (Late st Contact Info) Description 03/18/2024 8:30 AM EST Appointment Pulmonology at [place] [phone] 03/18/2024 9:30 AM EST Office Visit Pulmonology at [place] [phone] Hetal Ojeda MD [facility] [place] [address] Scheduled Orders Name Type Priority Associated Diagnoses Orde r Schedule Pulmonary Function Testing PFT Routine Asthma-COPD overlap syndrome Expected: 01/20/2022, Expires: 07/22/2022 Scheduled Referrals Name Type Priority Associated Diagnoses Orde r Schedule Referral to Pulmonary Rehab Outpatient Referral Routine Asthma-COPD overlap syndrome Ordered: 12/20/2021 documented as of this encounter Visit Diagnoses Diagnosis Asthma-COPD overlap syndrome Cigarette nicotine dependence with other nicotine-induced disorder Dependence on supplemental oxygen documented in this encounter Care Teams Senior Front End Developer Relationship Specialty Start Date End Date Travis Castaneda MD [address] [place] [address] PCP - General Internal Medicine 10/29/18 09/27/23 documented as of this encounter
--- OUTSIDE RECORDS SUMMARY | 2024-02-29 09:00 | XMS_ITS | Encounter Summary ---
Author Organization [facility] Address [facility] [place] [address] Care Team Providers Care Pharmacist In Charge Owner Name Role Phone Travis Castaneda MD Primary Care Provider [phone] Encounter Details Date Type Department Care Team (Late st Contact Info) Description 10/05/2020 10:00 AM EDT Ancillary Procedure Radiology Library at [facility] [place] [phone] Hetal Ojeda MD [facility] [place] [address] Lung nodule Social History Tobacco Use Types [...] 03/18/2024 8:30 AM EST Appointment [place] [phone] 03/18/2024 9:30 AM EST [place] [phone] Hetal Ojeda MD [facility] [place] [address] documented as of this encounter Procedures Procedure Name Priority Date/Time Associated Diagnosis Comments REQUEST FOR 2ND READ CT CHEST ABDOMEN PELVIS Routine 10/05/2020 9:57 AM EDT Lung nodule documented in this encounter Results * Request For 2nd [...] who have questions please contact the health wound care rn that requested your imaging first. ? Narrative 10/05/2020 11:08 AM EDT EXAMINATION: REQUEST FOR 2ND READ CT CHEST ABDOMEN PELVIS CLINICAL HISTORY: COPD, history of pulmonary nodules, f/u nodules; Sending Institution [facility]; Date of exam 20200914; I believe [...] history of pulmonary nodules, f/u nodules;Sending Institution [facility]; Date of exam 20200914; I believe [...] patients who have questions please contactthe health wound care rn that requested your imaging first. Hetal Ojeda MD IMG OUTSIDE INTERPRE TATION ORDERABLES documented in this encounter Visit Diagnoses Diagnosis Lung nodule Solitary pulmonary nodule documented in this encounter Care Teams Pharmacist In Charge Owner Relationship Specialty Start Date End Date Travis Castaneda MD [address] [place] [id number] PCP - General Internal Medicine 10/29/18 09/27/23 documented as of this encounter
--- OUTSIDE RECORDS SUMMARY | 2024-02-29 09:00 | XMS_ITS | Encounter Summary ---
Author Organization [facility] Address [facility] [place] [address] Care Team Providers Care Glucose And Syrup Weigher Name Role Phone Travis Castaneda MD Primary Care Provider [phone] Encounter Details Date Type Department Care Team (Latest Contact Info) Description 05/09/2022 Travel Social History Tobacco Use Types Packs/Day [...] 03/18/2024 8:30 AM EST Appointment [place] [address] 03/18/2024 9:30 AM EST Office [place] [address] Hetal Ojeda MD [facility] PULMONARY MEDICINE [place] [phone] documented as of this encounter Visit Diagnoses Not on filedocumented in this encounter Care Teams Glucose And Syrup Weigher Relationship Specialty Start Date End Date Travis Castaneda MD [address] [place] [address] PCP - General Internal Medicine 10/29/18 09/27/23 documented as of this encounter
--- OUTSIDE RECORDS SUMMARY | 2024-02-29 09:00 | XMS_ITS | Encounter Summary ---
Author Organization [facility] [place] [address] Care Team Providers Care Contact Center Rep Name Role Phone Travis Castaneda MD Primary Care Provider [phone] Encounter Details Date Type Department Care Team (Late st Contact Info) Description 12/24/2021 Telephone [place] [address] Pearl Sharma Social History Tobacco [...] * Telephone Encounter - Pearl Sharma - 12/24/2021 9:32 AM EDT Return in about 3 months (around 03/22/2022) for In-office visit in 3 months; please schedul nathaly/DLCO/FeNO/HomeO2 evaluation next available (Dec?). Perhaps PFT on 01/06 at 2:30 F/u on 05/11/2022 in the AM ( If still available when returns call ) documented in this encounter Plan of Treatment Upcoming Encounters Date Type Department Care Team (Late st Contact Info) Description 03/18/2024 8:30 AM EST Appointment [place] [address] 03/18/2024 9:30 AM EST Office [place] [address] Hetal Ojeda MD [facility] [place] [address] documented as of this encounter Visit Diagnoses Not on filedocumented in this encounter Care Teams Contact Center Rep Relationship Specialty Start Date End Date Travis Castaneda MD [address] [place] [address] PCP - General Internal Medicine 10/29/18 09/27/23 documented as of this encounter
--- OUTSIDE RECORDS SUMMARY | 2024-02-29 09:01 | XMS_ITS | Encounter Summary ---
Author Organization [facility] Address [facility] [place] [address] Care Team Providers Care Retail Marketing Manager Name Role Phone Travis Castaneda MD Primary Care Provider [phone] Reason for Visit * Reason Onset Date Comments Request For Record 05/22/2020 Office visit notes and plan of care from 05/18/2020. Encounter Details Date Type Department Care Team (Late st Contact Info) Description 05/22/2020 [place] [phone] Dawood Leyva RN Request For Record (Office visit notes and plan of care from 05/18/2020.) Social History Tobacco Use Types Packs/Day Years [...] Telephone Encounter - Dawood Leyva RN - 05/22/2020 4:16 PM EST Rec'd call from CHRISTINE Mackrehabilitation manager from [place] [employer]. She called to office, seeking to get the office visit notes from patient's last appointment, with Dr. Ojeda on 05/18/2020. She also requested the care plan from that visit. Fax contact: [phone] RN called back to update, but was met with confidential voicemail. RN relayed that the patient had not been seen in the department on 05/18/2020, and Dr. Ojeda has been working in the ICU overnights. RN relayed last office visit date as 03/19/2020, with follow up scheduled with Dr. Ojeda on 08/07/2020. Faxed copy of office visit notes dated 03/19/2020, with copy of follow up appointment scheduled print out for 08/07/2020. Fax submission confirmation time stamped for 04/21/2021 @ 1628, 9 pages with coversheet. documented in this encounter Plan of Treatment Upcoming Encounters Date Type Department Care Team (Late st Contact Info) Description 03/18/2024 8:30 AM EST [place] [address] 03/18/2024 9:30 AM EST [place] [address] Hetal Ojeda MD [facility] [place] [address] documented as of this encounter Visit Diagnoses Not on filedocumented in this encounter Care Teams Retail Marketing Manager Relationship Specialty Start Date End Date Travis Castaneda MD [address] [place] [address] PCP - General Internal Medicine 10/29/18 09/27/23 documented as of this encounter
--- OUTSIDE RECORDS SUMMARY | 2024-02-29 09:01 | XMS_ITS | Encounter Summary ---
Author Organization [facility] [place] [address] Care Team Providers Care Field Technical Specialist Name Role Phone Travis Castaneda MD Primary Care Provider [phone] Encounter Details Date Type Department Care Team (Late st Contact Info) Description 02/03/2020 [place]phone [place] [address] Lorie Hernandez RT Social History Tobacco Use Types Packs/Day Years Used Date Smoking Tobacco: Every Day Cigarettes 1 30 Smokeless Tobacco: Never Alcohol Use Standard Drinks/Week Comments Not Currently 0 (1 standard drink = 0.6 oz pur e alcohol) Sex and Gender Information Value Date Recorded Sex Assigned at Not on file Gender Identity Not on file Sexual Orientation Not on file documented as of this encounter Miscellaneous Notes * Telephone Encounter - Lroie Hernandez RT - 02/03/2020 2:37 PM EDT Called [facility] at [phone] And received call center. for local office to call back to confirm [facility] home and portable oxygen DME set up. Noted recent O2 orders from 01/30 and 02/03/2020 with IP admission 01/29-02/03/2020 documented in this encounter Plan of Treatment Upcoming Encounters Date Type Department Care Team (Late st Contact Info) Description 03/18/2024 8:30 AM EST Appointment [place] [phone] 03/18/2024 9:30 AM EST Office [place] [address] Hetal Ojeda MD [facility] [place] [address] documented as of this encounter Visit Diagnoses Not on filedocumented in this encounter Care Teams Field Technical Specialist Relationship Specialty Start Date End Date Travis Castaneda MD [address] [place] [address] PCP - General Internal Medicine 10/29/18 09/27/23 documented as of this encounter
--- OUTSIDE RECORDS SUMMARY | 2024-02-29 09:01 | XMS_ITS | Encounter Summary ---
Author Organization [facility] Address [facility] [place] [address] Care Team Providers Care Extension Course Coordinator Name Role Phone Travis Castaneda MD Primary Care Provider [phone] Encounter Details Date Type Department Care Team (Late st Contact Info) Description 11/16/2019 Ancillary Procedure Radiology Library at [facility] [place] [phone] Travis Castaneda MD [address] [place] [address] Social History Tobacco Use Types Packs/Day Years Used Date Smoking Tobacco: Every Day Cigarettes 0.3 30 Smokeless Tobacco: Never Alcohol Use Standard [...] 8:30 AM EST Appointment [place] [address] 03/18/2024 9:30 AM EST Office [place] [phone] Hetal Ojeda MD [facility] PULMONARY MEDICINE [place], [place] [phone] documented as of this encounter Procedures Procedure Name Priority Date/Time Associated Diagnosis Comments FILM LIBRARY STORAGE ONLY DX CHEST Routine 11/16/2019 12:00 AM EDT documented in this encounter Results * Film Library- Storage Only DX Chest (11/16/2019 12:00 AM EDT) Narrative [facility] - 03/27/2020 10:55 AM EST This exam is auto-finalizing. It's purpose is for storage only. Travis Castaneda MD IMG FILM LIBRARY ORD ERABLES Performing Organization Address City/State/[facility] Co de Phone Number [place], [place] documented in this encounter Visit Diagnoses Not on filedocumented in this encounter Care Teams Extension Course Coordinator Relationship Specialty Start Date End Date Travis Castaneda MD [address] [place] [address] PCP - General Internal Medicine 10/29/18 09/27/23 documented as of this encounter
--- OUTSIDE RECORDS SUMMARY | 2024-02-29 09:01 | XMS_ITS | Encounter Summary ---
Author Organization [facility] Address [facility] [place] [address] Care Team Providers Care Document Review Specialist Name Role Phone Travis Castaneda MD Primary Care Provider [phone] Encounter Details Date Type Department Care Team (Late st Contact Info) Description 03/24/2020 Ancillary Procedure Radiology Library at [facility] [place] [address] Travis Castaneda MD [address] [place], [place] [id number] Social History Tobacco Use Types Packs/Day Years [...] 03/18/2024 8:30 AM EST Appointment [place] [phone] 03/18/2024 9:30 AM EST Office [place] [address] Hetal Ojeda MD [facility] [place] [address] documented as of this encounter Procedures Procedure Name Priority Date/Time Associated Diagnosis Comments FILM LIBRARY STORAGE ONLY DX CHEST Routine 03/24/2020 12:00 AM EST documented in this encounter Results * Film Library- Storage Only DX Chest (03/24/2020 12:00 AM EST) Narrative [facility] - 04/01/2020 9:58 AM EST This exam is auto-finalizing. It's purpose is for storage only. Travis Castaneda MD IMG FILM LIBRARY ORD ERABLES Performing Organization Address City/State/[facility] Co de Phone Number [place], [place] documented in this encounter Visit Diagnoses Not on filedocumented in this encounter Care Teams Document Review Specialist Relationship Specialty Start Date End Date Travis Castaneda MD [address] [place] [address] PCP - General Internal Medicine 10/29/18 09/27/23 documented as of this encounter
--- OUTSIDE RECORDS SUMMARY | 2024-02-29 09:01 | XMS_ITS | Encounter Summary ---
Author Organization [facility] Address [facility] [place] [address] Care Team Providers Care Cashier Checker Name Role Phone Travis Castaneda MD Primary Care Provider [phone] Encounter Details Date Type Department Care Team (Late st Contact Info) Description 03/27/2020 Telephone [place] [phone] Linda Baker LNA Social History Tobacco Use Types Packs/Day Years [...] 03/18/2024 8:30 AM EST Appointment [place] [phone] 03/18/2024 9:30 AM EST Office [place] [phone] Hetal Ojeda MD [facility] DR [place]MON[place] [address] documented as of this encounter Visit Diagnoses Not on filedocumented in this encounter Care Teams Cashier Checker Relationship Specialty Start Date End Date Travis Castaneda MD [address] [place] [address] PCP - General Internal Medicine 10/29/18 09/27/23 documented as of this encounter
--- OUTSIDE RECORDS SUMMARY | 2024-02-29 09:01 | XMS_ITS | Encounter Summary ---
Author Organization [facility] Address [facility] [place] [address] Care Team Providers Care Paper Machine Backtender Name Role Phone Travis Castaneda MD Primary Care Provider [phone] Encounter Details Date Type Department Care Team (Late st Contact Info) Description 11/08/2019 [place] [address] Linda Baker LNA Social History Tobacco Use [...] encounter Miscellaneous Notes * Telephone Encounter - Linda Baker LNA - 11/08/2019 10:32 AM EDT LM for pt to call us back to schedule CHEMICAL LAB SUPERVISOR appt from referral. Per Dr. Ashby, can be seen by anyone in next few weeks, no tests. documented in this encounter Plan of Treatment Upcoming Encounters Date Type Department Care Team (Late st Contact Info) Description 03/18/2024 8:30 AM EST [place] [address] 03/18/2024 9:30 AM EST [place] [address] Hetal Ojeda MD [facility] [address] [place] [address] documented as of this encounter Visit Diagnoses Not on filedocumented in this encounter Care Teams Paper Machine Backtender Relationship Specialty Start Date End Date Travis Castaneda MD [address] [place] [address] PCP - General Internal Medicine 10/29/18 09/27/23 documented as of this encounter
--- OUTSIDE RECORDS SUMMARY | 2024-02-29 09:01 | XMS_ITS | Encounter Summary ---
Author Organization [facility] Address [facility] [place] [address] Care Team Providers Care Solidworks Designer Name Role Phone Travis Castaneda MD Primary Care Provider [phone] Encounter Details Date Type Department Care Team (Late st Contact Info) Description 03/25/2020 [place] [address] Linda Baker LNA Social History [...] Telephone Encounter - Linda Baker LNA - 03/25/2020 1:19 PM EST Call from pt to schedule f/u with Dr. Ojeda on 08/07/20. Added to wait list. documented in this encounter Plan of Treatment Upcoming Encounters Date Type Department Care Team (Late st Contact Info) Description 03/18/2024 8:30 AM EST [place] [address] 03/18/2024 9:30 AM EST Office [place] [address] Hetal Ojeda MD [facility] [place] [address] documented as of this encounter Visit Diagnoses Not on filedocumented in this encounter Care Teams Solidworks Designer Relationship Specialty Start Date End Date Travis Castaneda MD [address] [place] [address] PCP - General Internal Medicine 10/29/18 09/27/23 documented as of this encounter
--- OUTSIDE RECORDS SUMMARY | 2024-02-29 09:01 | XMS_ITS | Encounter Summary ---
Author Organization [facility] Address [facility] [place] [address] Care Team Providers Care Director Of Customer Acquisition Name Role Phone Travis Castaneda MD Primary Care Provider [phone] Encounter Details Date Type Department Care Team (Late st Contact Info) Description 04/08/2020 Ancillary Procedure Radiology Library at [facility] [place] [address] Travis Castaneda MD [address] [place], [place] [id number] Social History Tobacco Use Types Packs/Day Years [...] 03/18/2024 8:30 AM EST Appointment [place] [address] 03/18/2024 9:30 AM EST Office [place] [address] Hetal Ojeda MD [facility] [place] [address] documented as of this encounter Procedures Procedure Name Priority Date/Time Associated Diagnosis Comments FILM LIBRARY STORAGE ONLY DX CHEST Routine 04/08/2020 12:00 AM EST documented in this encounter Results * Film Library- Storage Only DX Chest (04/08/2020 12:00 AM EST) Narrative [facility] - 04/16/2020 8:34 AM EST This exam is auto-finalizing. It's purpose is for storage only. Travis Castaneda MD IMG FILM LIBRARY ORD ERABLES Performing Organization Address City/State/[facility] Co de Phone Number [place], [place] documented in this encounter Visit Diagnoses Not on filedocumented in this encounter Care Teams Director Of Customer Acquisition Relationship Specialty Start Date End Date Travis Castaneda MD [address] [place] [address] PCP - General Internal Medicine 10/29/18 09/27/23 documented as of this encounter
--- OUTSIDE RECORDS SUMMARY | 2024-02-29 09:01 | XMS_ITS | Encounter Summary ---
Author Organization [facility] Address [facility] [place] [address] Care Team Providers Care Russian Language Professor Name Role Phone Travis Castaneda MD Primary Care Provider [phone] Encounter Details Date Type Department Care Team (Late st Contact Info) Description 12/13/2019 Ancillary Procedure Radiology Library at [facility] [place] [address] Travis Castaneda MD [address] [place], [place] [id number] Social History Tobacco Use Types Packs/Day Years [...] 03/18/2024 8:30 AM EST Appointment [place] [address] 03/18/2024 9:30 AM EST Office [place] [address] Hetal Ojeda MD [facility] PULMONARY MEDICINE [place], [place] [address] documented as of this encounter Procedures Procedure Name Priority Date/Time Associated Diagnosis Comments FILM LIBRARY STORAGE ONLY DX CHEST Routine 12/13/2019 12:00 AM EDT documented in this encounter Results * Film Library- Storage Only DX Chest (12/13/2019 12:00 AM EDT) Narrative [facility] - 04/01/2020 9:59 AM EST This exam is auto-finalizing. It's purpose is for storage only. Travis Castaneda MD IMG FILM LIBRARY ORD ERABLES Performing Organization Address City/State/[facility] Co de Phone Number [place], [place] documented in this encounter Visit Diagnoses Not on filedocumented in this encounter Care Teams Russian Language Professor Relationship Specialty Start Date End Date Travis Castaneda MD [address] [place] [address] PCP - General Internal Medicine 10/29/18 09/27/23 documented as of this encounter
--- OUTSIDE RECORDS SUMMARY | 2024-02-29 09:01 | XMS_ITS | Encounter Summary ---
Author Organization [facility] Address [facility] [place] [address] Care Team Providers Care Network Control Operators Supervisor Name Role Phone Travis Castaneda MD Primary Care Provider + [phone] Reason for Visit * Reason Comments Follow-up * Auth/Cert Specialty Diagnoses / Procedures Referred By Gulshan arguelles Referred To Contact Diagnoses COPD (chronic obstructive pulmonary disease) Referral ID Status Reason Start Date Expiration Date Visits Re quested Visits Authorized [id number] 1 1 Encounter Details Date Type Department Care Team (Late st Contact Info) Description 01/29/2020 4:00 PM EDT [place] [address] Hetal Ojeda MD [facility] [place] [address] COPD exacerbation; Hypoxia; Asthma-COPD overlap syndrome; Anxiety; Chest pain, unspecified type Social History Tobacco Use Types Packs/Day Years [...] Sign Reading Time Taken Comments Blood Pressure 122/71 01/29/2020 4:15 PM EDT Pulse 78 01/29/2020 4:15 PM EDT Temperature 37.3 ??C (99.1 ??F) 01/29/2020 4:15 PM ED T Respiratory Rate 12 01/29/2020 4:15 PM EDT Oxygen Saturation 83% 01/29/2020 4:15 PM EDT Inhaled Oxygen Concentration - - Weight 83.9 kg (185 lb) 01/29/2020 4:15 PM EDT Height 175.3 cm (5' 9) 01/29/2020 4:15 PM EDT Body Mass Index 27.32 01/29/2020 4:15 PM EDT documented in this encounter Progress Notes * Hetal Ojeda MD - 01/29/2020 4:00 PM EDT Images from the original note were not included. [facility] Section of Pulmonary and Critical Care Medicine Outpatient Consultation Date of Encounter: 01/29/2020 Reason for Evaluation: Mr. Garret Barros returns to the pulmonary clinic for follow-up of COPD. I independently interviewed the patient, have examined the patient if this visit was conducted in the office and have reviewed available records. Dear Dr. Travis Castaneda MD, As you know, Garret Barros is a 44 y.o. man with history of severe asthma-COPD overlap syndrome, oxygen dependent, prior pulmonary nodules, ongoing tobacco use, in the setting of anxiety, history of substance abuse in remission, who was last seen in pulmonary clinic by my colleague in December 2018 at which time he was acutely admitted to the hospital with COPD exacerbation. Mr. Barros reports ongoing dyspnea, worse over the past few days, but building over a few weeks. Coughing up yellow and green mucous. He has chest tightness and central chest pain, and wheezing. No fevers or chills. No sick contacts, and tells me he has not left his house much. He tells me he was in touch with his PCP last week but symptoms weren't as severe as today. He got very short of breath walking in from his car. He was hypoxic in the low 80s on arrival to clinic. He is using oxygen at night, and at rest at home. He did not bring any oxygen with him; he says he needs a refill of his oxygen tanks. He is using a large concentrator at home. He is using albuterol and combivent inhalers, with some mild benefit. He was on prednisone a month ago he believes with some benefit. He tells me he also takes an antibiotic every Zkarpr-Qkxippzfc-Okhqfp (by review of outside prescriptions this appears to be azithromycin at 250 mg po three times weekly.) He felt symbicort didn't help and he has stopped taking this months ago. He pointed to arnuity ellipta as an inhaler he is using currently but I don't have records to confirm this; he does havepharmacy fills of anoro ellipta recently. Flovent 220 was dispensed a month ago by pharmacy records. I see two dispenses of doxycycline 7 day courses in the past 2 months but he didn't recall why he took that. He is still smoking, about 1/4 ppd. He is using patches to try to cut down. He does not identify any specific triggers for his exacerbations. He denies GERD. He thinks he has been on prednisone 9-10 times in the past year, and been hospitalized about 3 times in the past year for COPD/breathing (last at [facility] 12 months ago[facility] but [facility] He denies any recent intubations or need for BiPAP (sounds like maybewas required a year ago.) During our visit he reported ongoing chest pain of unclear duration. He reported anxiety which escalated over the course of the visit. He reports he did not take his morning anxiety medications. Current Medications at Start of Encounter: Outpatient Medications Prior to Visit Medication Sig Dispense Refill ??? LORazepam (ATIVAN) 1 mg Tablet Take 1 tablet by mouth 2 times daily as needed for Anxiety. 10 tablet 0 ??? QUEtiapine (SEROQUEL) 200 mg Tablet Take 1.5 tablets by mouth nightly. ??? budesonide-formoterol (SYMBICORT) 160-4.5 mcg/actuation HFA Aerosol Inhaler Inhale 2 puffs intothe lungs 2 times daily. 1 Inhaler 12 ??? ipratropium-albuterol (COMBIVENT RESPIMAT) 20-100 mcg/actuation Mist [...] every 6 hours. 1 Box 4 ??? methadone (DOLOPHINE) 10 mg/mL Concentrate Take 12 mLs by mouth daily. 120 mL 0 ??? pregabalin (LYRICA) 200 mg Capsule Take 1 capsule by mouth 3 times daily. (Patient taking differently: Take 200 mg by mouth 2 times daily.) 60 capsule 0 ??? DULoxetine (CYMBALTA) 60 mg Capsule, Delayed Release(E.C.) Take 1 capsule by mouth 2 times daily. (Patient not taking: Reported on 01/29/2020) ??? doxycycline monohydrate (MONODOX) 100 mg Capsule Take 1 capsule by mouth 2 times daily. (Patient not taking: Reported on 02/27/2019) 10 capsule 0 ??? nicotine (NICODERM CQ) 21 mg/24 [address] 1 patch onto the skin daily. (Patient not taking: Reported on 02/27/2019) 28 patch 3 ??? melatonin 3 mg Tablet Take 6 mg by mouth nightly as needed. ??? docusate sodium (COLACE) 100 mg Capsule Take 100 mg by mouth daily as needed for Constipation. No facility-administered medications prior to visit. Review of Systems: A focused ROS was completed and was positive as noted in HPI, and otherwise negative. Physical Examination: BP 122/71 Pulse 78 Temp 37.3 ??C (99.1 ??F) Resp 12 Ht 175.3 cm (5' 9) Wt 83.9 kg (185 lb) SpO2 (!) 83% BMI 27.32 kg/m?? GEN: anxious appearing, intermittently appearing short of breath, but conversational and oriented HEENT: neck supple, anicteric sclera CV: RRR, quiet heart sounds, no murmur, pulse 2+ PULM: intermittent accessory muscle use, diffuse loud wheezing throughout all lung henriquez with prolonged exhalation, scant crackles at bases ABD: soft, ND MSK: R leg amputation and prosthesis; he is ambulatory with this EXT: no edema left leg DERM: no rash NEURO: AAO, anxious and distracted Pulmonary Function Test Results: Not repeated with this visit Labs, Microbiology and Imaging: I personally reviewed relevant laboratory, microbiologic and radiology results which were significant for: Chest CT OSH 10/22/2019, written report: Impression and Recommendations: Garret Barros is a 44 y/o man who is an active cigarette smoker who presented to his scheduled pulmonary clinic f/u visit today with decompensated asthma-COPD overlap syndrome with exacerbation, severe chest pain concerning for possible ACS, and significant anxiety with progression to near panic attack limiting ongoing discussion of acute outpatient treatment options, as well as hypoxia without home portable oxygen supply. Given need to exclude ACS driving his symptoms, and degree of his reported respiratory distress as well as his sense that he needed to be admitted to the hospital I recommended he go to the ED for additional evaluation, which he was eventually agreeable to (his alternative plan was to drive home and go to a local ED.) He was transported by wheelchair to the ED with portable oxygen on for additional acute evaluation today. Regarding longer-term outpatient management of his severe asthma-COPD overlap syndrome we will needto ensure he has a consistent inhaler regimen including triple inhaled therapy. Pharmacy records indicate he is currently filling flovent 220 and anoro ellipta, which may be appropriate for this but which he may not actually (by his report) be taking. He is on chronic azithromycin, but if his cardiac evaluation today shows a normal QTc I would recommend we increase this to azithromycin 500 mg po three times weekly (from 250.) He needs assistance getting his home oxygen portable tanks refilled. I am not aware of any specificbarriers, but am messaging our respiratory therapist to see if she can check with his home care company regarding this issue. We will plan for updated ambulatory O2 testing in short term f/u. We briefly discussed tobacco cessation at this visit, but will need to follow up on this discussionafter his acute medical needs are addressed. Prior chest CT imaging in September 2019 indicates evidence of old granulomatous findings but reports not new or suspicious nodules. No additional chest CT imaging is currently recommended. Summary Recommendations: - patient transported to the ED from this visit for evaluation of possible ACS and management of asthma/COPD exacerbation and anxiety attack; I called the ED to advise them of these concerns and willdefer acute management to them tonight - will plan additional titration of inhalers and azithromycin in short-term follow-up - tobacco cessation encouraged - will request our RT contact home care company to assist with portable O2 needs - plan for nathaly/DLCO/ambulatory O2 assessment with next visit Follow-up in 2 weeks in clinic. Thank you for involving me in Mr. Barros's care. Please feel free to contact me with any further questions or concerns. Hetal Ojeda MD [facility] [address] Dept: [phone] Loc: [phone] documented in this encounter Plan of Treatment Upcoming Encounters Date Type Department Care Team (Late st Contact Info) Description 03/18/2024 8:30 AM EST [place] [address] 03/18/2024 9:30 AM EST [place] [address] Hetal Ojeda MD [facility] [place] [address] documented as of this encounter Results * Pulmonary Function Testing (02/13/2020 11:59 PM EDT) Narrative COMPAS PFT - 02/13/2020 11:59 PM EDT Rc Chavez MD ? 02/14/2020 12:08 PM FEV1 and FVC are markedly decreased. ??FEV1/FVC is normal. ??Oxygen saturation on room air at rest is decreased; he required supplemental oxygen at 3 L/min to achieve a resting SaO2 greater than 90%.. Impression: The results should be interpreted with caution. ??This was a technically inadequate study, as the patient exhaled for well under six seconds, and did not reach a plateau in exhaled lung volume. ??The results as recorded should be seen as minimum estimates of the patient's lung function, and likely underestimate the patient's true lung function by a significant but unquantifiable degree. ?? Hetal Ojeda MD PFT ORDERABLES COMPAS PFT documented in this encounter Visit Diagnoses Diagnosis COPD exacerbation Obstructive chronic bronchitis with exacerbation Hypoxia Hypoxemia Asthma-COPD overlap syndrome Anxiety Anxiety state, unspecified Chest pain, unspecified type Asthma-COPD overlap syndrome documented in this encounter Care Teams Network Control Operators Supervisor Relationship Specialty Start Date End Date Travis Castaneda MD [address] [place] [id number] PCP - General Internal Medicine 10/29/18 09/27/23 documented as of this encounter
--- OUTSIDE RECORDS SUMMARY | 2024-02-29 09:01 | XMS_ITS | Encounter Summary ---
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 0921, Until 02/03/20 at 1622, Wheezing, Can use in between duoneb if still with shortness of breath, Routine busPIRone (Buspar) tablet 15 mg 15 mg, Oral, 3 TIMES DAILY, First dose on 02/01/20 at 1500, Until Discontinued, Routine Given 02/03/2020 2:03 PM EDT 15 mg Given 02/03/2020 8:26 AM EDT 15 mg Given 02/02/2020 8:44 PM EDT 15 mg codeine-guaiFENesin (guaiFENesin AC) (2-20 mg/mL) oral liquid 5 mL 5 mL, Oral, EVERY 6 HOURS, First dose on 02/02/20 at 0945, Until Discontinued, Routine Given 02/03/2020 9:57 AM EDT 5 mLs Given 02/03/2020 5:18 AM EDT 5 mLs Given 02/02/2020 9:07 PM EDT [address] (Cymbalta) capsule 60 mg 60 mg, Oral, 2 TIMES DAILY, First dose on 02/01/20 at 1230, Until Discontinued, Routine Given 02/03/2020 8:26 AM EDT 60 mg Given 02/02/2020 8:45 PM EDT 60 mg Given 02/02/2020 8:31 AM EDT 60 mg enoxaparin (LOVENOX) injection 40 mg 40 mg, Subcutaneous, NIGHTLY, First dose on Arlene 01/30/20 at 2100, Until Discontinued, Routine Given 02/02/2020 8:46 PM EDT 40 mg Given 02/01/2020 8:06 PM EDT 40 mg Ab dominal Tissue Given 01/31/2020 8:48 PM EDT 40 mg guaiFENesin ER (Mucinex) tablet 600 mg 600 mg, Oral, 2 TIMES DAILY, First dose on Arlene 01/30/20 at 0930, Until Discontinued, DO NOT CRUSH OR OPEN, Routine Given 02/02/2020 8:33 AM EDT 600 mg Given 02/01/2020 8:08 PM EDT 600 mg Given 02/01/2020 8:12 AM EDT 600 mg HYDROmorphone (DILAUDID) injection 0.2 mg 0.2 mg, Intravenous, EVERY 4 HOURS PRN, Starting on 02/01/20 at 1648, Until 02/03/20 at 1622, Pain, mild pain (1-3), May give an additional 0.2 mg in 30 minutes once if pain not relieved., Routine HYDROmorphone (DILAUDID) injection 0.4 mg 0.4 mg, Intravenous, EVERY 4 HOURS PRN, Starting on 02/01/20 at 1648, Until 02/03/20 at 1622, Pain, moderate pain (4-6), May give an additional 0.2 mg in 30 minutes once if pain not relieved., Routine HYDROmorphone (DILAUDID) injection 0.6 mg 0.6 mg, Intravenous, EVERY 4 HOURS PRN, Starting on 02/01/20 at 1648, Until 02/03/20 at 1622, Pain, severe pain (7-10), May give an additional 0.2 mg in 30 minutes once if pain not relieved., Routine Given 02/03/2020 1:55 PM EDT 0.6 mg Given 02/03/2020 9:57 AM EDT 0.6 mg Given 02/03/2020 5:18 AM EDT 0.6 mg hydrOXYzine (Atarax) tablet 10 mg 10 mg, Oral, 2 TIMES DAILY PRN, Starting on Arlene 01/30/20 at 1530, Until 02/03/20 at 1622, Anxiety, Routine Given 02/02/2020 8:44 PM EDT 10 mg Given 02/02/2020 11:29 AM EDT 10 mg Given 02/01/2020 9:35 AM EDT 10 mg ipratropium-albuteroL (DUONEB) 0.5 mg-3 mg(2.5 mg base)/3 mL nebulizer solution 3 mL 3 mL, Nebulization, EVERY 6 HOURS, First dose on Arlene 01/30/20 at 0430, Until Discontinued, Routine Given 01/30/2020 4:41 AM EDT 3 mLs ipratropium-albuteroL (DUONEB) 0.5 mg-3 mg(2.5 mg base)/3 mL nebulizer solution 3 mL 3 mL, Nebulization, EVERY 4 HOURS WHILE AWAKE, First dose (after last modification) on Arlene 01/30/20 at 1015, Until Discontinued, Routine Given 01/30/2020 5:18 PM EDT 3 mLs Given 01/30/2020 1:54 PM EDT 3 mLs Given 01/30/2020 10:29 AM EDT 3 mLs ipratropium-albuteroL (DUONEB) 0.5 mg-3 mg(2.5 mg base)/3 mL nebulizer solution 3 mL 3 mL, Nebulization, EVERY 4 HOURS WHILE AWAKE, First dose (after last modification) on Arlene 01/30/20 at 2100, Until Discontinued, Routine Given 02/03/2020 1:27 PM EDT 3 mLs Given 02/03/2020 8:45 AM EDT 3 mLs Given 02/03/2020 4:51 AM EDT 3 mLs ketorolac (TORADOL) injection 15 mg 15 mg, Intravenous, EVERY 6 HOURS PRN, Starting on Arlene 01/30/20 at 2036, Until Mon01/31/20 at 1625, Pain, Routine Given 01/31/2020 7:59 AM EDT 15 mg Given 01/30/2020 8:55 PM EDT 15 mg ketorolac (TORADOL) injection 30 mg 30 mg, Intravenous, EVERY 6 HOURS PRN, Starting on Mon01/31/20 at 1625, Until Mon01/31/20 at 2010, Pain, Routine Given 01/31/2020 4:49 PM EDT 30 mg ketorolac (TORADOL) injection 30 mg 30 mg, Intravenous, ONCE, 1 dose, On 01/31/20 at 2100, Routine Given 01/31/2020 8:49 PM EDT 30 mg ketorolac (TORADOL) injection 30 mg 30 mg, Intravenous, ONCE, 1 dose, On 02/01/20 at 0415, Routine Given 02/01/2020 3:38 AM EDT 30 mg ketorolac (TORADOL) injection 30 mg 30 mg, Intravenous, EVERY 6 HOURS SCHEDULED, 4 doses, First dose (after last reorder) on 02/01/20 at 1200, Last dose on 02/02/20 at 0600, Routine Given 02/02/2020 6:38 AM EDT 30 mg Given 02/01/2020 11:59 PM EDT 30 mg Given 02/01/2020 6:04 PM EDT 30 mg levoFLOXacin (Levaquin) tablet 750 mg 750 mg, Oral, EVERY MORNING, 5 doses, First dose on Arlene 01/30/20 at 1145, Last dose on 02/03/20 at 0700, Please give after sputum culture obtained, Routine, Indication for (Active or Suspected): Other (See comment) Given 02/03/2020 6:42 AM EDT 7 50 mg Given 02/02/2020 6:38 AM EDT 750 mg Given 02/01/2020 6:51 AM EDT 750 mg lidocaine (LIDODERM) 5 % patch 1 patch 1 patch, Transdermal, EVERY 24 HOURS, First dose on Arlene 01/30/20 at 1800, Until Discontinued, Apply patch(es) for 12 hours, and then remove for 12 hours, Routine Patch Applied 02/02/2020 5:04 PM EDT 1 patch 06- Back Upper (Right) Patch Applied 02/01/2020 6:03 PM EDT 1 patch 06- Back Upper (Right) Patch Applied 01/30/2020 5:14 PM EDT 1 patch 11- Chest (Left) lidocaine (LIDODERM) 5 %(700 mg/patch) Patch Removal Transdermal, EVERY 24 HOURS, First dose on Mon01/31/20 at 0600, Until Discontinued, Remove lidocaine 5 %(700 mg/patch) patch lisinopriL (Prinivil;Zestril) tablet 20 mg 20 mg, Oral, DAILY, First dose on Mon02/02/20 at 1715, Until Discontinued, Routine Given 02/03/2020 8:26 AM EDT 20 mg Given 02/02/2020 5:26 PM EDT 20 mg LORazepam (Ativan) tablet 0.5 mg 0.5 mg, Oral, ONCE, 1 dose, On 02/01/20 at 1230, Routine Given 02/01/2020 11:42 AM EDT 0.5 mg LORazepam (Ativan) tablet 1 mg 1 mg, Oral, 2 TIMES DAILY PRN, Starting on Arlene 01/30/20 at 0425, Until 02/03/20 at 1622, Anxiety, Routine Given 02/03/2020 12:45 PM EDT 1 mg Given 02/03/2020 6:43 AM EDT 1 mg Given 02/02/2020 2:48 PM EDT 1 mg magnesium oxide (Mag-Ox) tablet 200 mg 200 mg, Oral, DAILY, First dose on Mon01/31/20 at 1230, Until Discontinued, Routine Given 02/03/2020 8:26 AM EDT 200 mg Given 02/02/2020 8:33 AM EDT 200 mg Given 02/01/2020 8:13 AM EDT 200 mg magnesium sulfate 2 g in sterile water 50 mL 2 g, Intravenous, ONCE, 1 dose, On Mon01/30/20 at 1230, Administer over 120 Minutes New Bag 01/30/2020 12:11 PM EDT 2 g 25 mL/hr melatonin tablet 6 mg 6 mg, Oral, NIGHTLY, First dose on Arlene 01/30/20 at 0515, Until Discontinued, Routine Given 02/02/2020 8:46 PM EDT 6 mg Given 02/01/2020 8:07 PM EDT 6 mg Given 01/31/2020 8:47 PM EDT 6 mg methadone (Dolophine) tablet 120 mg 120 mg, Oral, DAILY WITH BREAKFAST, First dose on Arlene 01/30/20 at 0800, Until Discontinued, Routine Given 01/31/2020 7:58 AM EDT 120 mg Given 01/30/2020 8:08 AM EDT 120 mg methadone (Dolophine) tablet 130 mg 130 mg, Oral, DAILY WITH BREAKFAST, First dose (after last modification) on [facility] 02/01/20 at 0800, Until Discontinued, Routine Given 02/03/2020 8:25 AM EDT 130 mg Given 02/02/2020 8:30 AM EDT 130 mg Given 02/01/2020 7:22 AM EDT 130 mg methylPREDNISolone sodium succinate (PF) (SOLU-Medrol) injection 40 mg 40 mg, Intravenous, ONCE, 1 dose, On Mon01/31/20 at 1230 Given 01/31/2020 12:33 PM EDT 40 mg methylPREDNISolone sodium succinate (PF) (SOLU-Medrol) injection 60 mg 60 mg, Intravenous, EVERY 8 HOURS, First dose on Mon02/02/20 at 0945, Until Discontinued Given 02/03/2020 1:21 AM EDT 6 0 mg Given 02/02/2020 5:04 PM EDT 60 mg Given 02/02/2020 9:44 AM EDT 60 mg nicotine (NICODERM CQ) 14 mg/24 hr patch 14 mg 14 mg (1 patch), Transdermal, Administer over 24 Hours, DAILY, First dose on Mon01/30/20 at 0900, Until Discontinued, Application Site: arm, Routine Given 02/03/2020 8:26 AM EDT 14 mg 04- Shoulder (Right) Given 02/02/2020 8:30 AM EDT 14 mg 09 - Arm Upper (Left) Given 02/01/2020 8:11 AM EDT 14 mg 10 - Arm Upper (Right) nicotine (NICODERM CQ) 14 mg/24 hr patch Patch Removal Transdermal, DAILY, First dose on Mon01/31/20 at 0345, Until Discontinued, Remove nicotine 14 mg/24 hr patch nicotine (NICODERM CQ) 14 mg/24 hr patch Patch Verification Transdermal, 2 TIMES DAILY, First dose on Mon01/30/20 at 1545, Until Discontinued, Verify nicotine 14 mg/24 hr patch. pantoprazole EC (Protonix) tablet 40 mg 40 mg, Oral, DAILY, First dose on 02/01/20 at 1015, Until Discontinued, DO NOT CRUSH OR OPEN Given 02/03/2020 8:26 AM EDT 40 mg Given 02/02/2020 8:32 AM EDT 40 mg Given 02/01/2020 11:17 AM EDT 40 mg polyethylene glycoL (Miralax) packet 17 g 17 g, Oral, DAILY, First dose on Arlene 01/30/20 at 0900, Until Discontinued, Routine Given 02/03/2020 8:27 AM EDT 17 g Given 02/02/2020 8:29 AM EDT 17 g Given 01/30/2020 8:09 AM EDT 17 g predniSONE (Deltasone) tablet 40 mg 40 mg, Oral, DAILY, 5 doses, First dose (after last modification) on Arlene 01/30/20 at 0900, Last dose on Mon02/03/20 at 0900, Routine Given 01/31/2020 8:05 AM EDT 40 mg Given 01/30/2020 8:08 AM EDT 40 mg predniSONE (Deltasone) tablet 40 mg 40 mg, Oral, DAILY, First dose on 02/03/20 at 1015, Until Discontinued, Routine Given 02/03/2020 10:44 AM EDT 40 mg predniSONE (Deltasone) tablet 60 mg 60 mg, Oral, DAILY, 3 doses, First dose (after last modification) on 02/01/20 at 0900, Last dose on 02/03/20 at 0900, Routine Given 02/02/2020 8:32 AM EDT 60 mg Given 02/01/2020 8:12 AM EDT 60 mg pregabalin (Lyrica) capsule 200 mg 200 mg, Oral, 3 TIMES DAILY, First dose (after last modification) on Arlene 01/30/20 at 0515, Until Discontinued, Routine Given 02/03/2020 2:03 PM EDT 200 mg Given 02/03/2020 8:26 AM EDT 200 mg Given 02/02/2020 8:45 PM EDT 200 mg QUEtiapine (SEROquel) tablet 300 mg 300 mg, Oral, NIGHTLY, First dose on Arlene 01/30/20 at 2100, Until Discontinued, Routine Given 02/02/2020 8:42 PM EDT 300 mg Given 02/01/2020 8:07 PM EDT 300 mg Given 01/31/2020 8:47 PM EDT 300 mg sodium chloride 0.9 % (flush) flush 3 mL 3 mL, Intravenous, EVERY 12 HOURS SCHEDULED, First dose on Arlene 01/30/20 at 0900, Until Discontinued, Routine Given 02/02/2020 8:46 PM EDT 3 mLs Given 02/02/2020 8:36 AM EDT 3 mLs Given 02/01/2020 8:08 PM EDT 3 mLs documented in this encounter Active and Recently Administered Medications Times are shown in EDT. Scheduled Medication Order 02/01/2020 02/02/2020 02/03/2020 acetaminophen (Tylenol) tablet 1,000 mg 1,000 mg, Oral, EVERY 8 HOURS, First dose (after last modification) on Mon01/31/20 at 1600, Until Discontinued, Maximum dose of acetaminophen is 4000 mg from all sources in 24 hours. When ordered for pain, acetaminophen should be given even when other ordered pain medications are indicated. , Routine 0052 (Given - Provider: Dheeraj Kumari RN)0651 (Given - Provider: Dheeraj Kumari RN)0800 (Not Given - Provider: Dheeraj Kumari RN - Reason: See comment - Comment: given ahead of time on pt's request)1704 (Given - Provider: Rubi Churchill RN)2358 (Given - Provider: Dheeraj Kumari RN) 0832 (Given - Provider: Rubi Churchill RN)1703 (Given - Provider: Rubi Churchill RN) 0121 (Given - Provider: Dheeraj Kumari RN)0825 (Given - Provider: Soheila Huertas, CHRISTINE) busPIRone (Buspar) tablet 15 mg 15 mg, Oral, 3 TIMES DAILY, First dose on 02/01/20 at 1500, Until Discontinued, Routine 1407 (Given - Provider: Rubi Churchill RN)2006 (Given - Provider: Brittney Brooks RN) 08 (Given - Provider: Rubi Churchill RN)140 (Given - Provider: Rubi Churchill RN)2043 (Given - Provider: Dheeraj Kumari RN) 08 (Given - Provider: Soheila Huertas, CHRISTINE)140 (Given - Provider: Soheila Huertas, CHRISTINE) codeine-guaiFENesin (guaiFENesin AC) (2-20 mg/mL) oral liquid 5 mL 5 mL, Oral, EVERY 6 HOURS, First dose on 02/02/20 at 0945, Until Discontinued, Routine 0944 (Given - Provider: Rubi Churchill RN)1448 (Given - Provider: Rubi Churchill RN)2107 (Given - Provider: Dheeraj Kumari RN) 0518 (Given - Provider: Dheeraj Kumari, CHRISTINE)0957 (Given - Provider: Soheila Huertas, CHRISTINE) DULoxetine DR (Cymbalta) capsule 60 mg 60 mg, Oral, 2 TIMES DAILY, First dose on 02/01/20 at 1230, Until Discontinued, Routine 1142 (Given - Provider: Rubi Churchill RN)2006 (Given - Provider: Brittney Brooks, CHRISTINE) 08 (Given - Provider: Rubi Churchill RN)2044 (Given - Provider: Dheeraj Kumari RN) 08 (Given - Provider: Soheila Huertas, CHRISTINE) enoxaparin (LOVENOX) injection 40 mg 40 mg, Subcutaneous, NIGHTLY, First dose on Arlene 01/30/20 at 2100, Until Discontinued, Routine 2005 (Given - Provider: Brittney Brooks RN) 2045 (Given - Provider: Dheeraj Kumari RN) guaiFENesin ER (Mucinex) tablet 600 mg (CANCELED) 600 mg, Oral, 2 TIMES DAILY, First dose on Arlene 01/30/20 at 0930, Until Discontinued, DO NOT CRUSH OR OPEN, Routine 0812 (Given - Provider: Rubi Churchill RN)2007 (Given - Provider: Brittney Brooks RN) 0833 (Given - Provider: Rubi Churchill RN) ipratropium-albuteroL (DUONEB) 0.5 mg-3 mg(2.5 mg base)/3 mL nebulizer solution 3 mL 3 mL, Nebulization, EVERY 4 HOURS WHILE AWAKE, First dose (after last modification) on Arlene 01/30/20 at 2100, Until Discontinued, Routine 0519 (Given - Provider: Zhou Levy)0920 (Given - Provider: Isidra Porras, NATALIE)1248 (Given - Provider: Isidra Porras RRT)1740 (Given - Provider: Isidra Porras RRT)2052 (Given - Provider: Carmen Moran RCP) 0456 (Given - Provider: Carmen Moran RCP)0826 (Given - Provider: Isidra Porras RRT)1328 (Given - Provider: Isidra Porras RRT)1748 (Given - Provider: Isidra Porras RRT)2057 (Given - Provider: Carmen Moran RCP) 0451 (Given - Provider: Carmen Moran RCP)0845 (Given - Provider: Ellie Delarosa RT)1327 (Given - Provider: RT Peter) ketorolac (TORADOL) injection 30 mg (COMPLETED) 30 mg, Intravenous, ONCE, 1 dose, On 02/01/20 at 0415, Routine 0338 (Given - Provider: Dheeraj Kumari, CHRISTINE) ketorolac (TORADOL) injection 30 mg (COMPLETED) 30 mg, Intravenous, EVERY 6 HOURS SCHEDULED, 4 doses, First dose (after last reorder) on 02/01/20 at 1200, Last dose on 02/02/20 at 0600, Routine 1118 (Given - Provider: Rubi Churchill RN)1804 (Given - Provider: Rubi Churchill RN)2359 (Given - Provider: Dheeraj Kumari RN) 0638 (Given - Provider: Dheeraj Kumari RN) levoFLOXacin (Levaquin) tablet 750 mg (COMPLETED) 750 mg, Oral, EVERY MORNING, 5 doses, First dose on Arlene 01/30/20 at 1145, Last dose on 02/03/20 at 0700, Please give after sputum culture obtained, Routine, Indication for (Active or Suspected): Other (See comment) 0651 (Given - Provider: Dheeraj Kumari RN) 0638 (Given - Provider: Dheeraj Kumari RN) 0642 (Given - Provider: Dheeraj Kumari RN) lidocaine (LIDODERM) 5 % patch 1 patch(Linked Group 1) 1 patch, Transdermal, EVERY 24 HOURS, First dose on Arlene 01/30/20 at 1800, Until Discontinued, Apply patch(es) for 12 hours, and then remove for 12 hours, Routine 1803 (Patch Applied - Provider: Rubi Churchill RN) 1704 (Patch Applied - Provider: Rubi Churchill RN) lidocaine (LIDODERM) 5 %(700 mg/patch) Patch Removal(Linked Group 1) Transdermal, EVERY 24 HOURS, First dose on Mon01/31/20 at 0600, Until Discontinued, Remove lidocaine 5 %(700 mg/patch) patch 0600 (Patch Not Removed (add comment) - Provider: Dheeraj Kumari RN - Comment: no patch in situ, to start with) 0600 (Patch Removed - Provider: Dheeraj Kumari RN) 0600 (Patch Removed - Provider: Dheeraj Kumari RN) lisinopriL (Prinivil;Zestril) tablet 20 mg 20 mg, Oral, DAILY, First dose on Mon02/02/20 at 1715, Until Discontinued, Routine 1726 (Given - Provider: Rubi Churchill RN) 0826 (Given - Provider: Soheila Huertas RN) LORazepam (Ativan) tablet 0.5 mg (COMPLETED) 0.5 mg, Oral, ONCE, 1 dose, On 02/01/20 at 1230, Routine 1142 (Given - Provider: Rubi Churchill RN) magnesium oxide (Mag-Ox) tablet 200 mg 200 mg, Oral, DAILY, First dose on Mon01/31/20 at 1230, Until Discontinued, Routine 0813 (Given - Provider: Rubi Churchill RN) 0833 (Given - Provider: Rubi Churchill RN) 08 (Given - Provider: Soheila Huertas, CHRISTINE) melatonin tablet 6 mg 6 mg, Oral, NIGHTLY, First dose on Arlene 01/30/20 at 0515, Until Discontinued, Routine 2006 (Given - Provider: Brittney Brooks RN) 2045 (Given - Provider: Dheeraj Kumari, RN) methadone (Dolophine) tablet 130 mg 130 mg, Oral, DAILY WITH BREAKFAST, First dose (after last modification) on 02/01/20 at 0800, Until Discontinued, Routine 721 (Given - Provider: Rubi Churchill RN) 08 (Given - Provider: Rubi Churchill RN) 08 (Given - Provider: Soheila Huertas RN) methylPREDNISolone sodium succinate (PF) (SOLU-Medrol) injection 60 mg (CANCELED) 60 mg, Intravenous, EVERY 8 HOURS, First dose on Mon02/02/20 at 0945, Until Discontinued 943 (Given - Provider: Rubi Churchill RN)170 (Given - Provider: Rubi Churchill RN) 012 (Given - Provider: Dheeraj Kumari RN) nicotine (NICODERM CQ) 14 mg/24 hr patch 14 mg(Linked Group 2) 14 mg (1 patch), Transdermal, Administer over 24 Hours, DAILY, First dose on Arlene 01/30/20 at 0900, Until Discontinued, Application Site: arm, Routine 08 (Given - Provider: Rubi Churchill RN) 08 (Given - Provider: Rubi Churchill RN) 08 (Given - Provider: Soheila Huertas RN) nicotine (NICODERM CQ) 14 mg/24 hr patch Patch Removal(Linked Group 2) Transdermal, DAILY, First dose on Mon01/31/20 at 0345, Until Discontinued, Remove nicotine 14 mg/24 hr patch 0816 (Patch Not Removed (add comment) - Provider: Rubi Churchill RN - Comment: already removed by the patient) 0836 (Patch Removed - Provider: Rubi Churchill RN) 0900 (Patch Not Removed (add comment) - Provider: Soheila Huertas RN) nicotine (NICODERM CQ) 14 mg/24 hr patch Patch Verification(Linked Group 2) Transdermal, 2 TIMES DAILY, First dose on Arlene 01/30/20 at 1545, Until Discontinued, Verify nicotine 14 mg/24 hr patch. 0816 (Patch (dose and location) verified - Provider: Rubi Churchill RN)2100 (Patch (dose and location) verified - Provider: Dheeraj Kumari RN) 0836 (Patch (dose and location) verified - Provider: Rubi Churchill RN)2100 (Patch (dose and location) verified - Provider: Dheeraj Kumari, RN - Comment: pt took it off for night, as it gives him nightmares he said) 0900 (Patch (dose and location) verified - Provider: Soheila Huertas, CHRISTINE) pantoprazole EC (Protonix) tablet 40 mg 40 mg, Oral, DAILY, First dose on 02/01/20 at 1015, Until Discontinued, DO NOT CRUSH OR OPEN 1117 (Given - Provider: Rubi Churchill RN) 0832 (Given - Provider: Rubi Churchill RN) 0826 (Given - Provider: Soheila Huertas, CHRISTINE) polyethylene glycoL (Miralax) packet 17 g 17 g, Oral, DAILY, First dose on Arlene 01/30/20 at 0900, Until Discontinued, Routine 0811 (Not Given - Provider: Rubi Churchill RN - Reason: Patient/family refused) 0829 (Given - Provider: Rubi Churchill RN) 0827 (Given - Provider: Soheila Huertas, CHRISTINE) predniSONE (Deltasone) tablet 40 mg 40 mg, Oral, DAILY, First dose on 02/03/20 at 1015, Until Discontinued, Routine 1044 (Given - Provider: Soheila Huertas, CHRISTINE) predniSONE (Deltasone) tablet 60 mg (CANCELED) 60 mg, Oral, DAILY, 3 doses, First dose (after last modification) on 02/01/20 at 0900, Last dose on Mon02/03/20 at 0900, Routine 0812 (Given - Provider: Rubi Churchill RN) 0832 (Given - Provider: Rubi Churchill RN) pregabalin (Lyrica) capsule 200 mg 200 mg, Oral, 3 TIMES DAILY, First dose (after last modification) on Arlene 01/30/20 at 0515, Until Discontinued, Routine 0812 (Given - Provider: Rubi Churchill RN)1406 (Given - Provider: Rubi Churchill, RN)2007 (Given - Provider: Brittney Brooks, CHRISTINE) 0832 (Given - Provider: Rubi Churchill RN)140 (Given - Provider: Rubi Churchill RN)2044 (Given - Provider: Dheeraj Kumari, CHRISTINE) 0826 (Given - Provider: Soheila Huertas, RN)140 (Given - Provider: Soheila Huertas, RN) QUEtiapine (SEROquel) tablet 300 mg 300 mg, Oral, NIGHTLY, First dose on Arlene 01/30/20 at 2100, Until Discontinued, Routine 2006 (Given - Provider: Brittney Brooks, CHRISTINE) 2041 (Given - Provider: Dheeraj Kumari, CHRISTINE) sodium chloride 0.9 % (flush) flush 3 mL 3 mL, Intravenous, EVERY 12 HOURS SCHEDULED, First dose on Arlene 01/30/20 at 0900, Until Discontinued, Routine 0817 (Given - Provider: Rubi Churchill, CHRISTINE)2007 (Given - Provider: Brittney Brooks, CHRISTINE) 0836 (Given - Provider: Rubi Churchill RN)2045 (Given - Provider: Dheeraj Kumari, CHRISTINE) 0900 (Not Given - Provider: Soheila Huertas RN - Reason: See comment) PRN Medication Order 02/01/2020 02/02/2020 02/03/2020 albuteroL (PROVENTIL) nebulizer solution 2.5 mg 2.5 mg, Nebulization, EVERY 4 HOURS PRN, Starting on Arlene 01/30/20 at 0921, Until 02/03/20 at 1622, Wheezing, Can use in between duoneb if still with shortness of breath, Routine bisacodyL (Dulcolax) suppository 10 mg 10 mg, Rectal, ONCE PRN, 1 dose, Starting on Arlene 01/30/20 at 0425, Until 02/03/20 at 1622, Constipation, Administer if no bowel movement within 72 hours and Milk of Magnesium given with no results If multiple PRN bowel medications ordered, start with magnesium hydroxide, then bisacodyl. Multiple medications may be given concomitantly for constipation., Routine HYDROmorphone (DILAUDID) injection 0.2 mg(Linked Group 3) 0.2 mg, Intravenous, EVERY 4 HOURS PRN, Starting on Sat 1020 at 1648, Until Mon 10 at 1622, Pain, mild pain (1-3), May give an additional 0.2 mg in 30 minutes once if pain not relieved., Routine 170 (See Alternative - Provider: Rubi Churchill RN)215 (See Alternative - Provider: Dheeraj Kumari RN) 0201 (See Alternative - Provider: Dheeraj Kumari RN)0749 (See Alternative - Provider: Rubi Churchill RN)1215 (See Alternative - Provider: Tiffany Gardner RN)1704 (See Alternative - Provider: Rubi Churchill RN)2107 (See Alternative - Provider: Dheeraj Kumari RN) 0127 (See Alternative - Provider: Dheeraj Kumari RN)0518 (See Alternative - Provider: Dheeraj Kumari RN)0957 (See Alternative - Provider: Soheila Huertas RN)1355 (See Alternative - Provider: Soheila Huertas RN) HYDROmorphone (DILAUDID) injection 0.4 mg(Linked Group 3) 0.4 mg, Intravenous, EVERY 4 HOURS PRN, Starting on Sat 1020 at 1648, Until Mon 10 at 1622, Pain, moderate pain (4-6), May give an additional 0.2 mg in 30 minutes once if pain not relieved., Routine 170 (See Alternative - Provider: Rubi Churchill RN)215 (See Alternative - Provider: Dheeraj Kumari RN) 0201 (See Alternative - Provider: Dheeraj Kumari RN)0749 (See Alternative - Provider: Rubi Churchill RN)1215 (See Alternative - Provider: Tiffany Gardner RN)1704 (See Alternative - Provider: Rubi Churchill RN)2107 (See Alternative - Provider: Dheeraj Kumari RN) 0127 (See Alternative - Provider: Dheeraj Kumari RN)0518 (See Alternative - Provider: Dheeraj Kumari RN)0957 (See Alternative - Provider: Soheila Huertas RN)1355 (See Alternative - Provider: Soheila Huertas RN) HYDROmorphone (DILAUDID) injection 0.6 mg(Linked Group 3) 0.6 mg, Intravenous, EVERY 4 HOURS PRN, Starting on 02/01/20 at 1648, Until 02/03/20 at 1622, Pain, severe pain (7-10), May give an additional 0.2 mg in 30 minutes once if pain not relieved., Routine 1704 (Given - Provider: Rubi Churchill RN)2151 (Given - Provider: Dheeraj Kumari RN) 0201 (Given - Provider: Dheeraj Kumari RN)0749 (Given - Provider: Rubi Churchill RN)1215 (Given - Provider: Tiffany Gardner RN)1704 (Given - Provider: Rubi Churchill RN)2107 (Given - Provider: Dheeraj Kumari RN) 0127 (Given - Provider: Dheeraj Kumari RN)0518 (Given - Provider: Dheeraj Kumari RN)0957 (Given - Provider: Soheila Huertas, RN)1355 (Given - Provider: Soheila Huertas, CHRISTINE) hydrOXYzine (Atarax) tablet 10 mg 10 mg, Oral, 2 TIMES DAILY PRN, Starting on Arlene 01/30/20 at 1530, Until 02/03/20 at 1622, Anxiety, Routine 0935 (Given - Provider: Rubi Churchill RN) 1129 (Given - Provider: Rubi Churchill RN)2044 (Given - Provider: Dheeraj Kumari RN) LORazepam (Ativan) tablet 1 mg 1 mg, Oral, 2 TIMES DAILY PRN, Starting on Arlene 01/30/20 at 0425, Until 02/03/20 at 1622, Anxiety, Routine 0338 (Given - Provider: Dheeraj Kumari RN)2013 (Given - Provider: Brittney Brooks RN) 0638 (Given - Provider: Dheeraj Kumari RN)1448 (Given - Provider: Rubi Churchill RN) 0643 (Given - Provider: Dheeraj Kumari RN)1245 (Given - Provider: Soheila Huertas RN) sodium chloride 0.9 % (flush) flush 5-20 mL 5-20 mL, Intravenous, EVERY 1 MIN PRN, Starting on Arlene 01/30/20 at 0425, Until Mon /5/20 at 1622, flush, Flush pertains to all indwelling lines. Flush per protocol found in the job aid using the link provided on this medication record., Routine Linked Groups Order Group 1: lidocaine (LIDODERM) 5 % patch 1 patchJump to med 1 patch, Transdermal, EVERY 24 HOURS, First dose on Mon01/30/20 at 1800, Until Discontinued, Apply patch(es) for 12 hours, and then remove for 12 hours, Routine And lidocaine (LIDODERM) 5 %(700 mg/patch) Patch RemovalJump to med Transdermal, EVERY 24 HOURS, First dose on Mon01/31/20 at 0600, Until Discontinued, Remove lidocaine 5 %(700 mg/patch) patch Group 2: nicotine (NICODERM CQ) 14 mg/24 hr patch 14 mgJump to med 14 mg (1 patch), Transdermal, Administer over 24 Hours, DAILY, First dose on Mon01/30/20 at 0900, Until Discontinued, Application Site: arm, Routine And nicotine (NICODERM CQ) 14 mg/24 hr patch Patch VerificationJump to med Transdermal, 2 TIMES DAILY, First dose on Mon01/30/20 at 1545, Until Discontinued, Verify nicotine 14 mg/24 hr patch. And nicotine (NICODERM CQ) 14 mg/24 hr patch Patch RemovalJump to med Transdermal, DAILY, First dose on Mon01/31/20 at 0345, Until Discontinued, Remove nicotine 14 mg/24 hr patch Group 3: HYDROmorphone (DILAUDID) injection 0.2 mgJump to med 0.2 mg, Intravenous, EVERY 4 HOURS PRN, Starting on 02/01/20 at 1648, Until Mon02/03/20 at 1622, Pain, mild pain (1-3), May give an additional 0.2 mg in 30 minutes once if pain not relieved., Routine Or HYDROmorphone (DILAUDID) injection 0.4 mgJump to med 0.4 mg, Intravenous, EVERY 4 HOURS PRN, Starting on 02/01/20 at 1648, Until Mon02/03/20 at 1622, Pain, moderate pain (4-6), May give an additional 0.2 mg in 30 minutes once if pain not relieved., Routine Or HYDROmorphone (DILAUDID) injection 0.6 mgJump to med 0.6 mg, Intravenous, EVERY 4 HOURS PRN, Starting on 02/01/20 at 1648, Until 02/03/20 at 1622, Pain, severe pain (7-10), May give an additional 0.2 mg in 30 minutes once if pain not relieved., Routine documented in this encounter Care Teams Care Team Assistant Relationship Specialty Start Date End Date Travis Castaneda MD [address] [place] [address] PCP - General Internal Medicine 10/29/18 09/27/23 documented as of this encounter
--- OUTSIDE RECORDS SUMMARY | 2024-02-29 09:01 | XMS_ITS | Encounter Summary ---
Author Organization [facility] Address [facility] [place] [address] Care Team Providers Care Preventive Medicine Physician Name Role Phone Travis Castnaeda MD Primary Care Provider + [phone] Reason for Visit * Reason Comments Shortness of Breath Chest Pain Anxiety * Auth/Cert Specialty Diagnoses / Procedures Referred By Gulshan t Referred To Contact Diagnoses COPD (chronic obstructive pulmonary disease) Referral ID Status Reason Start Date Expiration Date Visits Re quested Visits Authorized [id number] 1 1 Encounter Details Date Type Department Care Team (Late st Contact Info) Description 01/29/2020 5:52 PM EDT - 01/30/2020 3:06 AM EDT Emergency [place] [address] Wilver Feng MD [facility] [place] [address] COPD (chronic obstructive pulmonary disease) (Primary Dx) Discharge Disposition: Swing Bed Social History Tobacco Use Types Packs/Day Years [...] Sign Reading Time Taken Comments Blood Pressure 163/87 01/30/2020 3:00 AM EDT Pulse 66 01/30/2020 3:00 AM EDT Temperature 37.1 ??C (98.8 ??F) 01/29/2020 5:27 PM ED T Respiratory Rate 19 01/30/2020 3:00 AM EDT Oxygen Saturation 95% 01/30/2020 3:00 AM EDT Inhaled Oxygen Concentration - - Weight 83.9 kg (185 lb) 01/29/2020 5:27 PM EDT Height 175.3 cm (5' 9) 01/29/2020 5:27 PM EDT Body Mass Index 27.32 01/29/2020 5:27 PM EDT documented in this encounter Medications at Time [...] gets take home doses, MIGUEL ANGEL juárez [facility] [phone] last dose 12/12/22 per patient LORazepam (ATIVAN) [...] daily. 06/03/2022 documented as of this encounter ED Notes * Jacoby Cheney RN - 01/30/2020 2:44 AM EDT Pt in bed, eyes closed, audible unlabored breaths sounds. Pending Disposition. * Jacoby Cheney RN - 01/29/2020 8:29 PM EDT Pt in bed, eyes closed, audible unlabored breaths sounds. Pending Disposition. * Yvette Mejia - 01/29/2020 6:50 PM EDT Brought pt back to room. Pt changed into hospital gown. Pt on monitor and call gilmore within reach. * Elfego Tuttle MD - 01/29/2020 5:54 PM EDT ED Resident Note Garret Barros is an 44 y.o. male who presents to the ED with: Chief Complaint Patient presents with ??? Shortness of Breath ??? Chest Pain ??? Anxiety I saw this patient on 01/29/2020. History is from the patient at the bedside and chart review. HPI Garret Barros is a 44 y.o. male with history of COPD who presents to the Emergency Department hypoxia and dyspnea. Patient has 2 L on an oxygen concentrator at home which has not been working recently and he describes 2 to 3 days of worsening dyspnea and worsening shortness of breath. He presented at home clinic and was hypoxic into the high 70s and low 80s there is concern for COPD exacerbation versus COVID. He endorses dyspnea on exertion, denies any chest pain, cough, fevers chills, abdominal pain nausea vomiting. Review of Systems: Review of Systems Constitutional: Negative for activity change, appetite change, chills, diaphoresis, fever and unexpected weight change. HENT: Negative for rhinorrhea, sore throat and voice change. Respiratory: Positive for shortness of breath. Negative for apnea and cough. Cardiovascular: Negative for chest pain. Gastrointestinal: Negative for abdominal pain, constipation, diarrhea, nausea and vomiting. Genitourinary: Negative for dysuria. Musculoskeletal: Negative for back pain. Skin: Negative for rash. Neurological: Negative for dizziness, numbness and headaches. Psychiatric/Behavioral: Negative for confusion and suicidal ideas. Physical Exam: Patient Vitals for the past 24 hrs: BP Temp Temp src Pulse Resp SpO2 Height Weight 01/29/202099 124/69 -- -- 72 12 (!) 87 % -- -- 01/29/202044 -- -- -- 75 11 (!) 86 % -- -- 01/29/202029 107/69 -- -- 68 9 (!) 88 % -- -- 01/29/202014 -- -- -- 70 9 (!) 88 % -- -- 01/29/201999 119/63 -- -- 62 10 95 % -- -- 01/29/201944 -- -- -- 64 8 93 % -- -- 01/29/201929 114/69 -- -- 62 10 90 % -- -- 01/29/201914 -- -- -- 59 8 95 % -- -- 01/29/201899 113/76 -- -- 61 9 95 % -- -- 01/29/20 184 118/80 -- -- 77 11 93 % -- -- 01/29/20 1727 134/86 37.1 ??C (98.8 ??F) Oral 56 22 93 % 175.3 cm (5' 9) 83.9 kg (185 lb) GEN: Mild distress and tachypnea HEENT: Oropharynx clear, pink, and moist. PULM: Mild expiratory wheeze. CV: Normal rate. ABD: Soft, nondistended, nttp. MSK: No gross deformities. NEURO: AAOx3. PERRL. No gross CN deficits. Light touch intact face & body. Moves extremities equally. PSYCH: Normal mood and thought pattern. SKIN: No rashes. ED Course: - Patient seen under the supervision of the attending physician. - Medications, allergies, and past medical history reviewed. Recent Results (from the past 24 hour(s)) [...] Ref Range Gold Hold Sample in lab. ED Course as of Jan 28 2229MonJan 29, 20202224 COVID-19 PCR Assessment and Plan: MDM 44 y.o. male with hypoxia, dyspnea. This is a 44-year-old with a history of COPD who states that his concentrator stopped working, he is normally on 2 L and states that he does well moving around without dyspnea however he is now had worsening dyspnea and is hypoxic today into the 70s and low 80s at pulmonary clinic. When he arrived he was in the low 80s and was put on a nonrebreather and was brought up to the 90s. He was wheezy and given duo nebs and 125 Solu-Medrol and over the next few hours was slowly titrated to 3 L. Patient is now comfortably satting in the 90s on 3 L however when he walks around he becomes dyspneic and sats down back into the mid 80s. He states he is not typically dyspneic and is on oxygen at home. His wheezing is improved and clinically looks improved. He does not have oxygen to get home forhis [address] and states that his concentrator is not working at home he discharged difficult. Now that he is still de-satting on his home settings he will be admitted to hospital medicine for COPD exacerbation. Elfego Tuttle MD Resident 01/29/20 7998 Associated attestation - Wilver Feng MD - 01/30/2020 7:05 PM EDT ED ATTENDING ATTESTATION NOTE The patient was seen in conjunction with Dr. Tuttle the resident physician. I have independently performed the polanco portions of the history and physical exam. I have reviewed the nursing notes, vitalsigns, and all diagnostic studies personally including labs, imaging studies and EKGs. I have discussed the details of the case with the resident and agree with the assessment and plan as described in the resident note unless noted otherwise. Brief Summary: 44-year-old male patient with a history of COPD and asthma presented to his pulmonary clinic and was found to have shortness of breath wheezing and desaturation to 85%. He maintains on2.5 L/min and an oxygen concentrator at home and he is run out of oxygen. He presents to the clinicafter driving an hour and a half without oxygen. When he arrives to the emergency department he requires 4 L/min of oxygen and we are able to wean him to 2.5 L/min however he desaturates to 87% when sleeping and 85% when up and walking around. He denies any associated symptoms although does state that he has some chest pain when he is moving around. His troponin level is negative and remaining labs are unremarkable. He received 120 mg of Solu-Medrol Final Assessment: COPD exacerbation, reactive airways disease Did this case involve critical care? Yes CRITICAL CARE DOCUMENTATION: Is there a high potential of sudden, clinically significant, or life threatening deterioration? Yes Are there life and/or organ supporting interventions that require frequent personal assessment and manipulation or support to treat/prevent vital organ failure/deterioration? yes I personally performed 55 minutes of aggregate critical care time exclusive of procedures and teaching during this emergency department visit. This includes time spent during direct patient evaluation and reassessment, interpreting diagnostic tests, directing life and/or organ supporting interventions, and documentation. Have you asked a patient their goals of care (ie. what matters)? No * Ramesh Owen PA - 01/29/2020 5:26 PM EDT Brief Provider Triage Note Name: Garret Barros : 1975 Date of Service: 01/29/2020 Chief Complaint: Shortness of Breath, Chest Pain, and Anxiety History of Present Illness: 44 y.o. y/o male with hx of COPD on home O2 presents with hypoxia from pulmonology clinic. Found tohave O2 of 80% possibly related to running out of home oxygen. Patient reports chest pain that began today as well as anxiety/panic attack d/t not taking his meds today. Vitals: BP 134/86 Pulse 56 Temp 37.1 ??C (98.8 ??F) (Oral) Resp 22 Ht 175.3 cm (5' 9) Wt83.9 kg (185 lb) SpO2 93% BMI 27.32 kg/m?? Anxious, no acute distress Plan: Duoneb CBC, BMP, Troponin, CXR, EKG Re-examination Further diagnosis and management in ED COVID-19 precautions were used throughout this encounter. Ramesh Owen PA 01/29/20 1730 * Anu Grace MD - 01/29/2020 5:17 PM EDT EM attending brief outside phone call note: Garret Barros is a 44 y.o. who I was called about from Dr. Ojeda, pulm clinic The patient will be evaluated in the Emergency Department for hypoxia Brief Summary: H/o COPD on home O2 but ran out, mid 80%s on RA in clinic. Also with some CP. Possible COPD exacerbation +/- CAD, anxiety (didn't take anxiolytics this AM). Anu Grace MD 01/29/20 1719 documented in this encounter Miscellaneous Notes * ED Triage - Aden Fortune RN - 01/29/2020 5:30 PM EDT Pt sent donw by transpo from for SOB and CP. Pt describes pain as sharp in the center and left side, onset was yesterday. NAD in triage documented in this encounter Plan of Treatment Upcoming Encounters Date Type Department Care Team (Late st Contact Info) Description 03/18/2024 8:30 AM EST [place]ointment [place] [address] 03/18/2024 9:30 AM EST Office [place] [address] Hetal Ojeda MD [facility] [place] [address] documented as of this encounter Procedures Procedure Name Priority Date/Time Associated Diagnosis Comments HEMOGRAM STAT 01/29/2020 7:00 PM EDT DIFFERENTIAL, AUTOMATED STAT 01/29/2020 7:00 PM EDT GOLD TUBE HOLD STAT 01/29/2020 7:00 PM EDT BLUE TUBE HOLD STAT 01/29/2020 7:00 PM EDT HC CBC,PLT & AUTO DIFF STAT 01/29/2020 7:00 PM EDT HC TROPONIN T STAT 01/29/2020 7:00 PM EDT HEPATIC FUNCTION PANEL STAT 01/29/2020 7:00 PM EDT BASIC METABOLIC PANEL STAT 01/29/2020 7:00 PM EDT RAPID COVID-19 PCR ([facility]) STAT 01/29/2020 6:35 PM EDT XR CHEST PA AND LATERAL STAT 01/29/2020 5:47 PM EDT EKG 12-LEAD STAT 01/29/2020 5:47 PM EDT documented in this encounter Results * Hepatic Function Panel (01/29/2020 7:00 PM EDT) [facility] Protein, Total 6.7 6.1 - 8.0 gm/dL [facility] Albumin 4.3 3.2 - 5.2 gm/dL [facility] Aspartate Aminotransferase 27 0 - 39 unit/L [facility] Alanine Aminotransferase 19 0 - 55 unit/L [facility] Alkaline Phosphatase 62 40 - 130 unit/L [facility] Bilirubin, Total 0.5 0.2 - 1.3 mg/dL [facility] Bilirubin, Direct 0.1 0.0 - 0.3 mg/dL [facility] Blood specimen (specimen) Venous Draw / Unknown 01/29/2020 7:00 PM EDT 01/29/2020 7:25 PM EDT Narrative Resulting Agency Comment Spec In Lab Azam Jimenez MD CHEMISTRY ORDERABLES [facility] [place] [address] [place] [address] * Gold Tube HOLD (01/29/2020 7:00 PM EDT) [facility] Gold Hold Sample in lab. [facility] Blood specimen (specimen) Venous Draw / Unknown 01/29/2020 7:00 PM EDT 01/29/2020 7:19 PM EDT Ramesh MCFADDEN [place] [address] * Blue Tube HOLD (01/29/2020 7:00 PM EDT) Pathologist [facility] Blue Hold Sample in lab. [facility] Blood specimen (specimen) Venous Draw / Unknown 01/29/2020 7:00 PM EDT 01/29/2020 7:19 PM EDT Ramesh MCFADDEN HEMATOLOGY ORDERABLE S Performing Organization Address City/[facility] Co de Phone Number [facility] [place] [address] * Differential, Automated (01/29/2020 7:00 PM EDT) [facility] Neutrophil % 45.1 % [facility] Neutrophil Absolute 2.74 1.70 - 6.10 x10(3)/[facility]AT[facility] Lymph % 42.0 % [facility] Lymphocytes Abs 2.6 0.9 - 3.2 x10(3)/[facility] Monocyte % 9.2 % [facility] Monocyte Abs 0.6 0.3 - 0.9 x10(3)/[facility]ORY Eos % 2.8 % [facility] Eosinophils Abs 0.2 0.0 - 0.4 x10(3)/[facility] Basophil % 0.7 % [facility] Baso Absolute 0.0 0.0 - 0.1 x10(3)/[facility] LABORATORY Immature Gran % 0.20 % [facility] Comment: Immature granulocytes(IG's)percentage and absolute count will include metamyelocytes, myelocytes, and promyelocytes. Blood smears from CBCs yielding IG's will be scanned manually for concordance. If this scan disagrees with the automated IG or if promyelocytes are noted, a manual differential will be performed. Immature Gran Absolute 0.01 0.00 - 0.04 x10(3)/mcL [facility] Blood specimen (specimen) 01/29/2020 7:00 PM EDT 01/29/2020 7:16 PM EDT Narrative Resulting Agency Comment Spec In Lab Ramesh MCFADDEN HEMATOLOGY ORDERABLE S [facility] [place] [address] * (ABNORMAL) Hemogram (01/29/2020 7:00 PM EDT) White Blood Cell 6.1 4.0 - 9.5 x10(3)/[facility]ORATORY Red Blood Cell 5.53 4.58 - 5.54 x10(6)/[facility] Hemoglobin 17.8(H) 13.7 - 16.5 gm/dL [facility] Hematocrit 52.9(H) 40.5 - 48.5 % [facility] Mean Cell Volume 95.7(H) 82.9 - 93.1 fL [facility] Mean Cell Hemoglobin 32.2(H) 27.5 - 32.1 pg [facility] Mean Cell Hemoglobin Concentration 33.6 32.0 - 35.7 gm/dL [facility] Platelet 191 145 - 357 x10(3)/[facility]ORATORY RDW Standard Deviation 47.7(H) 36.0 - 45.0 fL [facility] RDW coefficient of variation 13.3 11.4 - 13.8 % [facility] Mean Platelet Volume 10.4 7.6 - 12.9 fL [facility] NRBC% auto 0.0 % [facility] NRBC Absolute 0.000 0.000 - 0.000 x10(3)/[facility] Blood specimen (specimen) 01/29/2020 7:00 PM EDT 01/29/2020 7:16 PM EDT Narrative Resulting Agency Comment Spec In Lab Ramesh MCFADDEN HEMATOLOGY ORDERABLE S Performing Organization Address [facility] Co de Phone Number [facility] [place] [address] * Troponin (01/29/2020 7:00 PM EDT) [facility] Troponin-T <0.01 0.00 - 0.00 ng/mL [facility] Comment: The 99th percentile for Troponin T is less than 0.01 ng/mL, any detectable cTnT concentration using this assay should be considered elevated. According to the third universal definition of myocardial infarction the following criteria with a clinical presentation consistent with acute myocardial ischemia meets the diagnosis for a myocardial infarction (NE). Detection of a rise and/or fall of cTnT, with at least one value greater than the 99th percentile (> or = 0.01) and with at least one of the following ?? Symptoms of ischemia ?? New or presumed new significant SK-ismeeqb-C wave (ST-T) changes or new left bundle branch block (LBBB) ?? Development of pathologic Q waves in the ECG ?? Imaging evidence of new loss of viable myocardium or new regional wall motion abnormality ?? Identification of an intracoronary thrombus by angiography or autopsy Samples for cTnT testing should be obtained serially upon first assessment and again 3 to 6 hours later. If the clinical suspicion is high and previous samples have been negative an additional sample may be indicated. Reference: Third [place] Definition of Myocardial Infarction. Journal of the [place] [employer] 2012;60:1581-98 Blood specimen (specimen) 01/29/2020 7:00 PM EDT 01/29/2020 7:16 PM EDT Narrative Resulting Agency Comment Spec In Lab Adam Horowitz MD CHEMISTRY ORDERABLES Performing Organization Address [facility] Co de Phone Number [facility] [place] [address] * (ABNORMAL) Basic Metabolic Panel (non-fasting) (01/29/2020 7:00 PM EDT) [facility] Glucose 82 65 - 199 mg/dL [facility] Comment:Diabetes: >=200 mg/d L plus symptoms Blood Urea Nitrogen 6(L) 10 - 20 mg/dL [facility] Creatinine 0.71(L) 0.80 - 1.50 mg/dL [facility] Sodium 141 135 - 145 mmol/L [facility] Potassium 4.2 3.5 - 5.0 mmol/L [facility] Comment: Please note: ??Patients with WBC >100,000 may have falsely elevated Potassium levels. ??For accurate Potassium quantification in these patients send serum separator tube (gold top) for subsequent determinations. ??Contact the Clinical Chemistry Laboratory if there are any questions. Chloride 103 98 - 107 mmol/L [facility] Carbon Dioxide 27 22 - 31 mmol/L [facility] Anion Gap 11 5 - 15 mmol/L [facility] Calcium 8.8 8.5 - 10.5 mg/dL [facility] Est Glomerular Filtration Rate 113 >=60 mL/min/1. 73 m?? [facility] Comment: The eGFR was calculated using the CKD-EPI equation. As with all creatinine based estimates of kidney function, eGFR values calculated with the CKD-EPI equation are not accurate in patients with acute kidney failure, extremes of body mass or the acutely ill. [email or web address]ULSAnkf eGFR 130 >=60 mL/min/1. 73 m?? [facility] Comment: The eGFR was calculated using the CKD-EPI equation. As with all creatinine based estimates of kidney function, eGFR values calculated with the CKD-EPI equation are not accurate in patients with acute kidney failure, extremes of body mass or the acutely ill. [email or web address]kf Blood specimen (specimen) 01/29/2020 7:00 PM EDT 01/29/2020 7:16 PM EDT Narrative Resulting Agency Comment Spec In Lab Adam Horowitz MD CHEMISTRY ORDERABLES [facility] [place] [address] * COVID-19 PCR (01/29/2020 6:35 PM EDT) SARS-CoV-2 RNA (Rapid) Not Detected Not Detected [facility] Comment: This result should be interpreted [...] using the Simplexa COVID-19 Direct Assay by [employer] as authorized by the FDA issued Emergency [...] of Pathology and Laboratory Medicine at [facility], certified under the Clinical Laboratory Improvement Amendments [...] webpage under Information for Healthcare Professionals (https://www.cdc.gov/coronavirus/2019-ncov/hcp/index.html). SARS-CoV-2 Source [employer] MILY [facility] Nasopharyngeal swab (specimen) 01/29/2020 6:35 PM EDT 01/29/2020 7:04 PM EDT Comment:Symptoms->COVID-19 S uspected Narrative Resulting Agency Comment Spec In Lab Adam Horowitz MD MICROBIOLOGY - GENER AL ORDERABLES [facility] [place] [address] * XR Chest PA & Lateral (Generic) (01/29/2020 5:47 PM EDT) Anatomical Region Laterality Modality Chest N/A Digital Radiogra phy Impressions 01/29/2020 5:55 PM EDT No acute cardiopulmonary process. Perihilar and bibasilar opacities appearing similar to 01/18/19, likely a combination of atelectasis and chronic lung disease. Thank you for letting us participate in the care of this patient. For questions regarding this report, please contact the number below. ? Narrative 01/29/2020 5:55 PM EDT EXAMINATION: XR CHEST PA AND LATERAL (GENERIC) CLINICAL HISTORY: chest pain/hypoxia TECHNIQUE: PA and lateral views of the chest COMPARISON: Chest radiographs 01/28/19 FINDINGS: Mild hazy bibasilar opacities and linear atelectasis. Linear perihilar opacities are stable since December 2018. No focal pulmonary consolidations. No pleural effusion or pneumothorax. The cardiac and mediastinal silhouettes are within normal limits. No acute osseous findings. Partially visualized IVC filter. Procedure Note José Miguel Tamayo MD - 01/29/2020 EXAMINATION: XR CHEST PA AND LATERAL (GENERIC) CLINICAL HISTORY: chest pain/hypoxia TECHNIQUE: PA and lateral views of the chest COMPARISON: Chest radiographs 01/28/19 FINDINGS: Mild hazy bibasilar opacities and linear atelectasis. Linear perihilaropacities are stable since December 2018. No focal pulmonary consolidations. Nopleural effusion or pneumothorax. The cardiac and mediastinal silhouettes arewithin normal limits. No acute osseous findings. Partially visualized IVCfilter. IMPRESSION No acute cardiopulmonary process. Perihilar and bibasilar opacitiesappearing similar to 01/18/19, likely a combination of atelectasis and chronic lung disease. Thank you for letting us participate in the care of this patient. Forquestions regarding this report, please contact the number below. Electronically signed by: José Miguel Tamayo MD, [facility]([phone]), at 01/29/2020 5:55 PM Adam Horowitz MD IMG DX ORDERABLES * EKG 12 Lead (01/29/2020 5:47 PM EDT) Ventricular rate 65 BPM MUSE SYSTEM Atrial Rate 65 BPM MUSE SYSTEM P-R Interval 154 ms MUSE SYSTEM QRS Duration 106 ms MUSE SYSTEM Q-T Interval 424 ms MUSE SYSTEM QTC Calculated (Bezet) 440 ms MUSE SYSTEM Calculated P [place] 71 degrees MUSE SYSTEM Calculated R [place] 90 degrees MUSE SYSTEM Calculated T [place] 68 degrees MUSE SYSTEM INTERPRETATION Normal sinus rhythm Rightward axis Abnormal ECG When compared with ECG of 28-JAN-2019 17:42, Questionabl e change in QRS duration Confirmed by MD Erik, Viraj ([id number]) on 01/30/2020 8:55:55 AM MUSE SYSTEM 01/29/2020 5:47 PM EDT 01/30/2020 8:55 AM EDT Adam Horowitz MD ECG ORDERABLES MUSE SYSTEM documented in this encounter Visit Diagnoses Diagnosis COPD (chronic obstructive pulmonary disease)- Primary Chronic airway obstruction, not elsewhere classified COPD (chronic obstructive pulmonary disease) Chronic airway obstruction, not elsewhere classified documented in this encounter Admitting Diagnoses Diagnosis COPD (chronic obstructive pulmonary disease) Chronic airway obstruction, not elsewhere classified documented in this encounter Administered Medications Inactive Administered Medications - up to 3 most recent administrations Medication Order MAR Action Action Date Dose Rate Site acetaminophen (Tylenol) tablet 975 mg 975 mg, Oral, ONCE, 1 dose, On Mon01/30/20 at 0118, Maximum dose of acetaminophen is 4000 mg from all sources in 24 hours. When ordered for pain, acetaminophen should be given even when other ordered pain medications are indicated. , STAT Given 01/30/2020 1:29 AM EDT 975 mg ipratropium-albuteroL (DUONEB) 0.5 mg-3 mg(2.5 mg base)/3 mL nebulizer solution 3 mL 3 mL, Nebulization, EVERY 15 MIN, 3 doses, First dose on Mon01/29/20 at 1732, Last dose on Mon01/29/20 at 1802, STAT Given 01/29/2020 7:10 PM EDT 3 mLs Given 01/29/2020 7:05 PM EDT 3 mLs Given 01/29/2020 6:53 PM EDT 3 mLs LORazepam (Ativan) tablet 1 mg 1 mg, Oral, ONCE, 1 dose, On Mon01/29/20 at 1731, Routine Given 01/29/2020 6:51 PM EDT 1 mg methylPREDNISolone sodium succinate (PF) (SOLU-Medrol) injection 125 mg 125 mg, Intravenous, ONCE, 1 dose, On Mon01/29/20 at 1757 Given 01/29/2020 7:02 PM EDT 125 mg documented in this encounter Active and Recently Administered Medications Times are shown in EDT. Scheduled Medication Order 01/28/2020 01/29/2020 01/30/2020 acetaminophen (Tylenol) tablet 975 mg (COMPLETED) 975 mg, Oral, ONCE, 1 dose, On Arlene 01/30/20 at 0118, Maximum dose of acetaminophen is 4000 mg from all sources in 24 hours. When ordered for pain, acetaminophen should be given even when other ordered pain medications are indicated. , STAT 0129 (Given - Provid er: Radha N Cadorette, SEARCH ENGINE MARKETING MANAGER) ipratropium-albuteroL (DUONEB) 0.5 mg-3 mg(2.5 mg base)/3 mL nebulizer solution 3 mL (COMPLETED) 3 mL, Nebulization, EVERY 15 MIN, 3 doses, First dose on Mon01/29/20 at 1732, Last dose on Mon01/29/20 at 1802, STAT 1853 (Given - Provider: Ines Barnhart, CHRISTINE)1905 (Given - Provider: Ines Barnhart RN)1910 (Given - Provider: Jacoby Cheney RN) LORazepam (Ativan) tablet 1 mg (COMPLETED) 1 mg, Oral, ONCE, 1 dose, On Mon01/29/20 at 1731, Routine 1851 (Given - Provider: Ines Barnhart RN) methylPREDNISolone sodium succinate (PF) (SOLU-Medrol) injection 125 mg (COMPLETED) 125 mg, Intravenous, ONCE, 1 dose, On Mon01/29/20 at 1757 1902 (Given - Provider: Ines Barnhart RN) documented in this encounter Additional Health Concerns Infection Onset Date Last Indicated Resolved Time Rule Out COVID-19 01/29/2020 01/29/2020 01/29/2020 10:53 PM EDT documented as of this encounter Care Teams Preventive Medicine Physician Relationship Specialty Start Date End Date Travis Castaenda MD [address] [place] [address] PCP - General Internal Medicine 10/29/18 09/27/23 documented as of this encounter
--- OUTSIDE RECORDS SUMMARY | 2024-02-29 09:01 | XMS_ITS | Encounter Summary ---
Author Organization [facility] Address [facility] [place] [address] Care Team Providers Care Machine Stoppage Frequency Checker Name Role Phone Travis Castaneda MD Primary Care Provider [phone] Encounter Details Date Type Department Care Team (Late st Contact Info) Description 03/27/2020 [place] [phone] Linda Baker LNA Social History Tobacco Use [...] 03/18/2024 8:30 AM EST [place]ointment [place] [phone] 03/18/2024 9:30 AM EST [place] [address] Hetal Ojeda MD [facility] [place] [address] documented as of this encounter Visit Diagnoses Not on filedocumented in this encounter Care Teams Machine Stoppage Frequency Checker Relationship Specialty Start Date End Date Travis Castaneda MD [address] [place] [address] PCP - General Internal Medicine 10/29/18 09/27/23 documented as of this encounter
--- OUTSIDE RECORDS SUMMARY | 2024-02-29 09:01 | XMS_ITS | Encounter Summary ---
Author Organization [facility] Address [facility] [place] [address] Care Team Providers Care Philosophy Professor Name Role Phone Travis Castaneda MD Primary Care Provider [phone] Encounter Details Date Type Department Care Team (Late st Contact Info) Description 03/27/2020 Telephone [place] [phone] Linda Baker LNA Social History Tobacco Use [...] 8:30 AM EST Appointment [place] [address] 03/18/2024 9:30 AM EST Office [place] [address] Hetal Ojeda MD [facility] [place] [address] documented as of this encounter Visit Diagnoses Not on filedocumented in this encounter Care Teams Philosophy Professor Relationship Specialty Start Date End Date Travis Castaneda MD [address] [place] [address] PCP - General Internal Medicine 10/29/18 09/27/23 documented as of this encounter
--- OUTSIDE RECORDS SUMMARY | 2024-02-29 09:01 | XMS_ITS | Encounter Summary ---
Author Organization [facility] [place] [address] Care Team Providers Care Barrel Scraper Name Role Phone Travis Castaneda MD Primary Care Provider [phone] Encounter Details Date Type Department Care Team (Late st Contact Info) Description 02/03/2020 [place] [address] Lorie Hernandez RT Social History [...] Telephone Encounter - Lorie Hernandez RT - 02/03/2020 3:44 PM EDT Joy called back from [facility] regarding Garret Barros: portable oxygen tank dropped off to his room prior to discharge today, and plan for local office/RTto go out to the home and check on home concentrator, portable tanks and nebulizer. They will follow up with Dr. Ojeda if further nebulizer or oxygen DME orders needed documented in this encounter Plan of Treatment Upcoming Encounters Date Type Department Care Team (Late st Contact Info) Description 03/18/2024 8:30 AM EST [place] [address] 03/18/2024 9:30 AM EST [place] [address] Hetal Ojeda MD [facility] [place] [address] documented as of this encounter Visit Diagnoses Not on filedocumented in this encounter Care Teams Barrel Scraper Relationship Specialty Start Date End Date Travis Castaneda MD [address] [place] [address] PCP - General Internal Medicine 10/29/18 09/27/23 documented as of this encounter
--- OUTSIDE RECORDS SUMMARY | 2024-02-29 09:01 | XMS_ITS | Encounter Summary ---
Author Organization [facility] Address [facility] [place] [address] Care Team Providers Care Switch Technician Name Role Phone Travis Castaneda MD Primary Care Provider + [phone] Encounter Details Date Type Department Care Team (Late st Contact Info) Description 02/21/2020 Telephone Pulmonology at [facility] [place] [place] [phone] Charles Maldonado Social History Tobacco Use Types Packs/Day Years [...] Miscellaneous Notes * Telephone Encounter - Charles Maldonado - 02/21/2020 8:55 AM EDT Called x1 to schedule 1 month f/u with Dr. Ojeda. Per henry Reddy to add patient in for in person visit on 03/19 in the morning. Spoke with female caller (?) and left name/telephone number for patient to call back. I was going to offer 11:00 am on 03/19, as patient is driving from [place], [place]. Please send message to [employer] to open up 30 min time slot at 11:00 on 03/19, or whatever time that morning the patient chooses to come in. documented in this encounter Plan of Treatment Upcoming Encounters Date Type Department Care Team (Late st Contact Info) Description 03/18/2024 8:30 AM EST Appointment [place] [address] 03/18/2024 9:30 AM EST Office [place] [address] Hetal Ojeda MD [facility] [place] [address] documented as of this encounter Visit Diagnoses Not on filedocumented in this encounter Care Teams Switch Technician Relationship Specialty Start Date End Date Travis Castaneda MD [address] [place] [address] PCP - General Internal Medicine 10/29/18 09/27/23 documented as of this encounter
--- OUTSIDE RECORDS SUMMARY | 2024-02-29 09:01 | XMS_ITS | Encounter Summary ---
Author Organization [facility] Address [facility] [place] [address] Care Team Providers Care Oil Lease Buyer Name Role Phone Travis Castaneda MD Primary Care Provider [phone] Encounter Details Date Type Department Care Team (Latest Contact Info) Description 03/09/2020 10:46 PM EST - 03/09/2020 11:59 PM EST Hospital Encounter Laboratory [facility] [place] [address] Discharge Disposition: Home Social History Tobacco Use [...] home doses, MIGUEL ANGEL [facility] [phone] last dose 12/12/22 per patient LORazepam (ATIVAN) [...] 60 capsule 11/26/2018 predniSONE (Deltasone) 20 mg Tablet Take 40 mg daily for 5 days, then 30 mg daily for 5 days then 20 mg daily for 5 days then 10 mg daily for 5 days then stop. 30 tablet 02/13/2020 08/07/2020 azithromycin (Zithromax) 250 mg Tablet Take 1 tablet by mouth three times a week. 13 tablet 3 02/14/2020 03/26/2020 Anoro Ellipta 62.5-25 mcg/actuation Disk with Device [...] 03/18/2024 8:30 AM EST Appointment Pulmonology at [facility] [place] [address] 03/18/2024 9:30 AM EST Office Visit Pulmonology at [facility] [place] [address] Hetal Ojeda MD [facility] [place] [address] documented as of this encounter Procedures Procedure Name Priority Date/Time Associated Diagnosis Comments COVID-19 PCR Routine 03/09/2020 11:05 AM EST documented in this encounter Results * COVID-19 PCR (03/09/2020 11:05 AM EST) SARS-CoV-2 RNA Not Detected Not Detected [facility] Comment: This result should be interpreted in combination with the clinical observations, patient history and epidemiological information. For testing of asymptomatic individuals, assay performance characteristics and clinical utility have not been evaluated. Testing for SARS-CoV-2 (Severe acute respiratory syndrome coronavirus 2, formerly known as 2019 novel coronavirus or 2019-nCoV) to aid in the diagnosis of COVID-19 is performed using the Aptima SARS Co-V-2 Assay on the enosiX System (Shaka.) as authorized by the FDA issued Emergency [...] Department of Pathology and Laboratory Medicine at [facility], certified under the Clinical Laboratory Improvement [...] under Information for Healthcare Professionals (https://www.cdc.gov/coronavirus/2019-ncov/hcp/index.html). SARS-CoV-2 RNA Source Nasal [facility] Specimen from nose (specimen) Other / Unknown 03/09/2020 11:05 AM EST 03/10/2020 7:11 AM EST Narrative Resulting Agency Comment Spec In Lab Maranda Andrade MD MOLECULAR ORDERABLES Performing Organization Address City/State/[facility] Co de Phone Number [facility] [place] [address] documented in this encounter Visit Diagnoses Not on filedocumented in this encounter Care Teams Oil Lease Buyer Relationship Specialty Start Date End Date Travis Castaneda MD [address] [place] [address] PCP - General Internal Medicine 10/29/18 09/27/23 documented as of this encounter
--- OUTSIDE RECORDS SUMMARY | 2024-02-29 09:01 | XMS_ITS | Encounter Summary ---
Author Organization [facility] Address [facility] [place] [address] Care Team Providers Care Textile Technologist Name Role Phone Travis Castaneda MD Primary Care Provider [phone] Encounter Details Date Type Department Care Team (Late st Contact Info) Description 11/13/2019 Ancillary Procedure Radiology Library at [facility] [place] [address] Travis Castaneda MD [address] [place], [place] [id number] Social History Tobacco Use Types Packs/Day Years [...] 03/18/2024 8:30 AM EST Appointment [place] [phone] 03/18/2024 9:30 AM EST Office [place] [address]1000 Hetal Ojeda MD [facility] PULMONARY MEDICINE [place], [place] [phone] documented as of this encounter Procedures Procedure Name Priority Date/Time Associated Diagnosis Comments FILM LIBRARY STORAGE ONLY DX CHEST Routine 11/13/2019 12:00 AM EDT documented in this encounter Results * Film Library- Storage Only DX Chest (11/13/2019 12:00 AM EDT) Narrative [facility] - 03/27/2020 10:53 AM EST This exam is auto-finalizing. It's purpose is for storage only. Travis Castaneda MD IMG FILM LIBRARY ORD ERABLES Performing Organization Address City/State/[facility] Co de Phone Number [place], [place] documented in this encounter Visit Diagnoses Not on filedocumented in this encounter Care Teams Textile Technologist Relationship Specialty Start Date End Date Travis Castaneda MD [address] [place] [address] PCP - General Internal Medicine 10/29/18 09/27/23 documented as of this encounter
--- OUTSIDE RECORDS SUMMARY | 2024-02-29 09:01 | XMS_ITS | Encounter Summary ---
Author Organization [facility] [place] [address] Care Team Providers Care Automotive Shop Foreman Name Role Phone Travis Castaneda MD Primary Care Provider + [phone] Reason for Visit * Reason Onset Date Comments Other 03/10/2020 Transportation S et Up Encounter Details Date Type Department Care Team (Late st Contact Info) Description 03/10/2020 Telephone Pulmonology at [facility] [place] [phone] Dawood Leyva RN Other (Transportation Set Up) Social History Tobacco Use Types Packs/Day Years [...] Telephone Encounter - Dawood Leyva RN - 04/24/2020 1:41 PM EST Faxed copy of physician referral form, signed by Dawood Leyva RN for appointment dated 03/19/[address] Ojeda. Fax submission confirmation timestamped for 03/10/2020 @ 1122. 4 pages with coversheet. Copy of form sent to records for inclusion to patient records. documented in this encounter Plan of Treatment Upcoming Encounters Date Type Department Care Team (Late st Contact Info) Description 03/18/2024 8:30 AM EST Appointment [place] [address] 03/18/2024 9:30 AM EST Office [place] [address] Hetal Ojeda MD [facility] [place] [address] documented as of this encounter Visit Diagnoses Not on filedocumented in this encounter Care Teams Automotive Shop Foreman Relationship Specialty Start Date End Date Travis Castaneda MD [address] [place] [address] PCP - General Internal Medicine 10/29/18 09/27/23 documented as of this encounter
--- OUTSIDE RECORDS SUMMARY | 2024-02-29 09:01 | XMS_ITS | Encounter Summary ---
Author Organization [facility] Address [facility] [place] [address] Care Team Providers Care Funeral Home Associate Name Role Phone Travis Castaneda MD Primary Care Provider [phone] Encounter Details Date Type Department Care Team (Late st Contact Info) Description 03/27/2020 Telephone [place] [address]1000 Linda Baker LNA Social History Tobacco Use [...] 03/18/2024 8:30 AM EST Appointment [place] [phone] 03/18/2024 9:30 AM EST Office [place] [address] Hetal Ojeda MD [facility] [place] [address] documented as of this encounter Visit Diagnoses Not on filedocumented in this encounter Care Teams Funeral Home Associate Relationship Specialty Start Date End Date Travis Castaneda MD [address] [place] [address] PCP - General Internal Medicine 10/29/18 09/27/23 documented as of this encounter
--- OUTSIDE RECORDS SUMMARY | 2024-02-29 09:01 | XMS_ITS | Encounter Summary ---
Author Organization [facility] Address [facility] [place] [address] Care Team Providers Care Casing Worker Name Role Phone Travis Castaneda MD Primary Care Provider [phone] Encounter Details Date Type Department Care Team (Latest Contact Info) Description 02/13/2020 8:24 AM EDT - 02/13/2020 11:59 PM EDT Hospital Encounter [place] [phone] Asthma-COPD overlap syndrome Discharge Disposition: Home Social [...] report, gets take home doses, MIGUEL ANGEL [facility] [phone] last dose 12/12/22 per patient LORazepam (ATIVAN) [...] a week. 13 tablet 3 02/14/2020 03/26/2020 pantoprazole EC (Protonix) 20 mg Tablet, Delayed Release (E.C.)Indications:pre vention of NSAID-induced gastric ulcer Take 1 tablet by mouth daily for 14 days. Indications: stomach ulcer from aspirin/ibuprofen-lik e drugs prevention 14 tablet 02/03/2020 02/17/2020 Anoro Ellipta 62.5-25 mcg/actuation Disk with Device [...] daily. 06/03/2022 documented as of this encounter Procedure Notes * Rc Chavez MD - 02/13/2020 11:59 PM EDTAssociated Order(s): PULMONARY FUNCTION TEST FEV1 and FVC are markedly decreased. FEV1/FVC is normal. Oxygen saturation on room air at rest is decreased; he required supplemental oxygen at 3 L/min to achieve a resting SaO2 greater than 90%.. Impression: The results should be interpreted with caution. This was a technically inadequate study, as the patient exhaled for well under six seconds, and did not reach a plateau in exhaled lung volume. The results as recorded should be seen as minimum estimates of the patient's lung function, andlikely underestimate the patient's true lung function by a significant but unquantifiable degree. documented in this encounter Plan of Treatment Upcoming Encounters Date Type Department Care Team (Late st Contact Info) Description 03/18/2024 8:30 AM EST Appointment [place] [address] 03/18/2024 9:30 AM EST Office Visit [place] [address] Hetal Ojeda MD [facility] [place] [address] documented as of this encounter Procedures Procedure Name Priority Date/Time Associated Diagnosis Comments COMMON PULMONARY FUNCTION TEST Routine 02/13/2020 11:59 PM EDT Asthma-COPD overlap syndrome documented in this [...] syndrome documented in this encounter Care Teams Casing Worker Relationship Specialty Start Date End Date Travis Castaneda MD [address] [place] [address] PCP - General Internal Medicine 10/29/18 09/27/23 documented as of this encounter
--- OUTSIDE RECORDS SUMMARY | 2024-02-29 09:01 | XMS_ITS | Encounter Summary ---
Author Organization [facility] Address [facility] [place] [address] Care Team Providers Care Fruit Vendor Name Role Phone Travis Castaneda MD Primary Care Provider [phone] Reason for Visit * Reason Onset Date Comments Other 01/02/2020 [place] RTC papers fa xed to [phone] Encounter Details Date Type Department Care Team (Late st Contact Info) Description 01/02/2020 [place] [address] Stefanie Paul RN Other ([place] RTC papers faxed to [phone]) Social History Tobacco Use Types Packs/Day Years [...] 03/18/2024 8:30 AM EST [place] [phone] 03/18/2024 9:30 AM EST [place] [address] Hetal Ojeda MD [facility] PULMONARY MEDICINE [place] [id number] documented as of this encounter Visit Diagnoses Not on filedocumented in this encounter Care Teams Fruit Vendor Relationship Specialty Start Date End Date Travis Castaneda MD [address] [place] [address] PCP - General Internal Medicine 10/29/18 09/27/23 documented as of this encounter
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
--- OUTSIDE RECORDS SUMMARY | 2024-02-29 09:01 | XMS_ITS | Encounter Summary ---
Author Organization [facility] Address [facility] [place] [address] Care Team Providers Care Portable Track Crew Chief Name Role Phone Travis Castaneda MD Primary Care Provider [phone] Encounter Details Date Type Department Care Team (Late st Contact Info) Description 02/13/2020 9:30 AM EDT Office Visit Pulmonology at [facility] [place] [address] Hetla Ojeda MD [facility] [place] [address] COPD exacerbation; Hypoxia; Anxiety; Asthma-COPD overlap syndrome; Cigarette nicotine dependence with other nicotine-induced disorder [...] Sign Reading Time Taken Comments Blood Pressure 147/97 02/13/2020 9:17 AM EDT Pulse 83 02/13/2020 9:17 AM EDT Temperature 37.3 ??C (99.1 ??F) 02/13/2020 9:17 AM ED T Respiratory Rate 14 02/13/2020 9:17 AM EDT Oxygen Saturation 94% 02/13/2020 9:17 AM EDT Inhaled Oxygen Concentration - - Weight - - Height - - Body Mass Index - - documented in this encounter Progress Notes * Hetal Ojeda MD - 02/13/2020 9:30 AM EDT Images from the original note were not included. [facility] Section of Pulmonary and Critical Care Medicine Outpatient Consultation Date of Encounter: 02/13/2020 Reason for Evaluation: Mr. Garret Barros returns [...] use, in the setting of anxiety, history ofsubstance abuse in remission, who was last seen in pulmonary clinic 01/29/2020 at which time he was sent directly to the ED due to severe dyspnea, anxiety, chest pain and hypoxia where he was treated for COPD exacerbation and anxiety. ACS was ruled out. Mr. Paz reports that he felt better after hospitalization two weeks ago, but three days ago startedhaving worsening dyspnea. He describes a lot of wheezing, coughing, with some yellow sputum production. He has chest tightness. As you will recall he showed up for his last pulmonary visit with decompensated exacerbation. Prior to this he had not been seen in more than a year in our clinic, and we do not have a good baseline assessment of his lung function or symptoms. He felt feverish a few daysago by his report, but denies fevers past 24 hours. He finished prednisone yesterday (was tapered down slowly.) Is using combivent, albuterol every 4 hours and anoro ellipta. He doesn't think he is taking the azithromycin three times weekly. He did not take his morning inhalers before his visit today. He says he woke up too late. He also did not take his lorazepam this morning. He is feeling anxious today after missing this dose. He says he is using oxygen at home all the time now, but he did not bring it with him. He says he forgot because he was in a [place]izarr[place] this morning. Using 2.5 LPM day and night, sometimes 3 when short of breath. He reports he is taking methadone still daily. He says he is not smoking marijuana this week because of dyspnea but has recently been using marijuana. He is smoking about 1 pack a week of cigarettes,tells me he is trying to quit. He is wearing a ncotine patch to help quit. Current Medications at Start of Encounter: Outpatient Medications Prior to Visit Medication Sig Dispense Refill ??? lisinopriL (Prinivil;Zestril) 20 mg Tablet Take 20 mg by mouth daily. ??? azithromycin (Zithromax) 250 mg Tablet Take 250 mg by mouth three times a week. ??? Anoro Ellipta 62.5-25 mcg/actuation Disk with [...] Reported on 02/13/2020) 120 mL 0 ??? predniSONE (Deltasone) 20 mg Tablet Take 2 tablets by mouth daily for 3 days, THEN 1.5 tablets daily for 3 days, THEN 1 tablet daily for 3 days, THEN 0.5 tablets daily for 3 days. (Patient not taking: Reported on 02/13/2020) 15 tablet 0 ??? pantoprazole EC (Protonix) 20 mg Tablet, Delayed Release (E.C.) Take 1 tablet by mouth daily for 14 days. Indications: stomach ulcer from aspirin/ibuprofen-like drugs prevention (Patient not taking: Reported on 02/13/2020) 14 tablet 0 No facility-administered medications prior to visit. Review of Systems: A focused ROS was completed and was positive as noted in HPI, and otherwise negative. Physical Examination: BP (!) 147/97 (BP Location (NBP): Left arm, Patient Position: Sitting, BP Cuff Sizes: Adult (25-34 cm)) Pulse 83 Temp 37.3 ??C (99.1 ??F) (Oral) Resp 14 SpO2 94% GEN: NAD but anxious and fidgety throughout the visit, conversational HEENT: MMM, nares patent, neck supple with no adenopathy CV: RRR, no murmur PULM: normal WOB, diminished breath sounds throughout, slight wheeze, much improved from prior visit 2 weeks earlier, no crackles ABD: soft, NT/ND MSK: no joint swelling, he is easily ambulatory EXT: no edema, not tender DERM: no rash NEURO: AAO, appropriate in conversation Pulmonary Function Test Results: Date FVC FEV1 Ratio TLC RV RV/TLC ERV DLCO 6MWT 02/13/2020 1.59 L (32% pred) 1.17 L (30% pred) 74 SpO2 was 85% at rest at beginning of ambulatory O2 assessment, and he required 3L O2 to maintain SpO2 > 88% with ambulation of 375 feet. I personally reviewed flow-volume loops and other tests. Results do not meet ATS criteria for acceptability or reproducibility due to inability to sustain exhalation and inconsistent effort. Results are most consistent with possible severe airflow obstruction. Unable to obtain DLCO. Labs, Microbiology and Imaging: I personally reviewed relevant laboratory, microbiologic and radiology results which were significant for: CXR 01/29/2020: IMPRESSION No acute cardiopulmonary process. Perihilar and bibasilar opacities appearing similar to 01/18/19, likely a combination of atelectasis and chronic lung disease. EKG 01/29/2020: NSR, QTc 440 Immunization History: Flu vaccine: Pneumovax: 2011 Prevnar-13: NA Impression and Recommendations: Garret Barros is a 44 y/o man who is an active cigarette and marijuana smoker with GOLD stage D COPD with severe airflow obstruction and oxygen-dependence, who returns two weeks after a COPD exacerbation requiring hospitalization with evidence of incomplete resolution of COPD exacerbation. Spirometry results are difficult to interpret, but he appears to have very severe airflow obstruction. At this visit I recommended we repeat a short course of prednisone and resume chronic azithromycin therapy, and counseled him on the importance of consistent inhaler use including anoro ellipta. He is using combivent regularly; ultimately I would recommend we add a LAMA inhaler option however Mr. Barros became very concerned about missing his ride during our visit and needed to leave urgently before we were able to address this. We will discuss at his next visit. Of note, he arrived for his visit without portable oxygen, although he confirmed he now has this available at home. With ambulation he requires 3 L NC O2 to maintain appropriate oxygenation, and he should be using O2 at rest as well. He was counseled on the importance of using oxygen with activity.He declined to wait in clinic for portable oxygen to be obtained for his ride home at this visit. Mr. Barros was counseled regarding the importance of tobacco and marijuana smoking cessation. He is contemplating this, and may continue to use nicotine patches for assistance. Mr. Barros is on a varietyof prescribed psychotropic medications, and as such I did not recommend addition of chantix as I amconcerned about potential drug interactions. We will again follow up in pulmonary clinic closely to try to improve overall COPD control given his advanced lung disease. I briefly introduced the concept of referral for lung transplant evaluationbut think we need to demonstrate optimal medication management and compliance with inhaler and oxygen therapy as well as tobacco cessation before Mr. Barros would be a viable candidate for transplant. Given his very young age we will continue to discuss this. Summary Recommendations: - resume prednisone 40 mg po daily x 5 additional days, prescribed with this visit - resume azithromycin 3 times weekly, also prescribed - continue anoro ellipta daily and combivent QID - advised to use supplemental oxygen, 2 L at rest and 3 L with ambulation - tobacco and marijuana cessation strongly encouraged Follow-up in 4 weeks in clinic. Thank you for involving me in Mr. Barros's care. Please feel free to contact me with any further questions or concerns. This visit included 5 minutes of tobacco cessation counseling. Hetal Ojeda MD [facility] PULMONOLOGY AT [facility] [address] Dept: [phone] Loc: [phone] documented in this encounter Plan of Treatment Upcoming Encounters Date Type Department Care Team (Late st Contact Info) Description 03/18/2024 8:30 AM EST Appointment Pulmonology at [place] [phone] 03/18/2024 9:30 AM EST Office Visit Pulmonology at [place] [phone] Hetal Ojeda MD [facility] [place] [address] documented as of this encounter Visit Diagnoses Diagnosis COPD exacerbation Obstructive chronic bronchitis with exacerbation Hypoxia Hypoxemia Anxiety Anxiety state, unspecified Asthma-COPD overlap syndrome Cigarette nicotine dependence with other nicotine-induced disorder documented in this encounter Care Teams Portable Track Crew Chief Relationship Specialty Start Date End Date Travis Castaneda MD [address] [place] [address] PCP - General Internal Medicine 10/29/18 09/27/23 documented as of this encounter
--- OUTSIDE RECORDS SUMMARY | 2024-02-29 09:01 | XMS_ITS | Encounter Summary ---
Author Organization [facility] Address [facility] [place] [address] Care Team Providers Care Cms Expert Name Role Phone Travis Castaneda MD Primary Care Provider [phone] Encounter Details Date Type Department Care Team (Late st Contact Info) Description 11/06/2019 Ancillary Procedure Radiology Library at [facility] [place] [place] [phone] Travis Castaneda MD [address] [place] [address] Social History Tobacco Use Types [...] 03/18/2024 8:30 AM EST [place] [phone] 03/18/2024 9:30 AM EST [place] [phone] Hetal Ojeda MD [facility] PULMONARY MEDICINE [place], [place] [phone] documented as of this encounter Procedures Procedure Name Priority Date/Time Associated Diagnosis Comments FILM LIBRARY STORAGE ONLY DX CHEST Routine 11/06/2019 12:00 AM EDT documented in this encounter Results * Film Library- Storage Only DX Chest (11/06/2019 12:00 AM EDT) Narrative [facility] - 04/01/2020 9:57 AM EST This exam is auto-finalizing. It's purpose is for storage only. Travis Castaneda MD IMG FILM LIBRARY ORD ERABLES Performing Organization Address City/State/[facility] Co de Phone Number [place], [place] documented in this encounter Visit Diagnoses Not on filedocumented in this encounter Care Teams Cms Expert Relationship Specialty Start Date End Date Travis Castaneda MD [address] [place] [address] PCP - General Internal Medicine 10/29/18 09/27/23 documented as of this encounter
--- OUTSIDE RECORDS SUMMARY | 2024-02-29 09:01 | XMS_ITS | Encounter Summary ---
Author Organization [facility] Address [facility] [place] [address] Care Team Providers Care Aerospace Medicine Physician Name Role Phone Travis Castaneda MD Primary Care Provider [phone] Reason for Visit * Reason Onset Date Comments Other 02/08/2020 Transportation D OC faxed to [phone] Encounter Details Date Type Department Care Team (Late Contact Info) Description 02/08/2020 [place]phone [place] [address] DesileStefanie segovia RN Other (Transportation DOC faxed to [phone]) Social History Tobacco Use Types Packs/Day Years [...] 03/18/2024 8:30 AM EST Appointment [place] [phone] 03/18/2024 9:30 AM EST Office [place] [address] Hetal Ojeda MD [facility] [place] [address] documented as of this encounter Visit Diagnoses Not on filedocumented in this encounter Care Teams Aerospace Medicine Physician Relationship Specialty Start Date End Date Travis Castaneda MD [address] [place] [address] PCP - General Internal Medicine 10/29/18 09/27/23 documented as of this encounter
--- OUTSIDE RECORDS SUMMARY | 2024-02-29 09:01 | XMS_ITS | Encounter Summary ---
Author Organization [facility] Address [facility] [place] [address] Care Team Providers Care Surgical Consultant Name Role Phone Travis Castaneda MD Primary Care Provider [phone] Encounter Details Date Type Department Care Team (Late st Contact Info) Description 11/19/2019 12:05 AM EDT Ancillary Procedure Radiology Library at [facility] [place] [phone] Travis Castaneda MD [address] [place] [address] Social History Tobacco Use Types [...] 8:30 AM EST Appointment [place] [phone] 03/18/2024 9:30 AM EST Office [place] [phone] Hetal Ojeda MD [facility] [place] [address] documented as of this encounter Procedures Procedure Name Priority Date/Time Associated Diagnosis Comments FILM LIBRARY STORAGE ONLY DX CHEST Routine 11/19/2019 12:05 AM EDT documented in this encounter Results * Film Library- Storage Only DX Chest (11/19/2019 12:05 AM EDT) Narrative [facility] - 04/01/2020 9:56 AM EST This exam is auto-finalizing. It's purpose is for storage only. Travis Castaneda MD IMG FILM LIBRARY ORD ERABLES Performing Organization Address City/State/[facility] Co de Phone Number [place], [place] documented in this encounter Visit Diagnoses Not on filedocumented in this encounter Care Teams Surgical Consultant Relationship Specialty Start Date End Date Travis Castaneda MD [address] [place] [address] PCP - General Internal Medicine 10/29/18 09/27/23 documented as of this encounter
--- OUTSIDE RECORDS SUMMARY | 2024-02-29 09:01 | XMS_ITS | Encounter Summary ---
Author Organization [facility] Address [facility] [place] [address] Care Team Providers Care Director Of Pulmonary Unit Name Role Phone Travis Castaneda MD Primary Care Provider [phone] Encounter Details Date Type Department Care Team (Late st Contact Info) Description 03/25/2020 Telephone [place] [address] Charles Maldonado Social History Tobacco Use Types [...] * Telephone Encounter - Charles Maldonado - 03/25/2020 10:21 AM EST Called x1, LM for patient to call back to schedule 3 month f/u (in clinic) with Dr. Ojeda. Per provider, ok to book next available, and place on wait list. documented in this encounter Plan of Treatment Upcoming Encounters Date Type Department Care Team (Late st Contact Info) Description 03/18/2024 8:30 AM EST Appointment [place] [phone] 03/18/2024 9:30 AM EST Office [place] [address] Hetal Ojeda MD [facility] [place] [address] documented as of this encounter Visit Diagnoses Not on filedocumented in this encounter Care Teams Director Of Pulmonary Unit Relationship Specialty Start Date End Date Travis Castaneda MD [address] [place] [address] PCP - General Internal Medicine 10/29/18 09/27/23 documented as of this encounter
--- OUTSIDE RECORDS SUMMARY | 2024-02-29 09:01 | XMS_ITS | Encounter Summary ---
Author Organization [facility] Address [facility] [place] [address] Care Team Providers Care Behavioral Medical Director Name Role Phone Travis Castaneda MD Primary Care Provider [phone] Encounter Details Date Type Department Care Team (Late st Contact Info) Description 11/19/2019 Ancillary Procedure Radiology Library at [facility] [place] [phone] Hetal Ojeda MD [facility] [place]MONARY [place] [address] Social History Tobacco Use Types Packs/Day Years [...] 03/18/2024 8:30 AM EST Appointment [place] [phone] 03/18/2024 9:30 AM EST Office [place] [phone] Hetal Ojeda MD [facility] [place]MONARY [place] [address] documented as of this encounter Procedures Procedure Name Priority Date/Time Associated Diagnosis Comments FILM LIBRARY STORAGE ONLY CT CHEST Routine 11/19/2019 12:00 AM EDT documented in this encounter Results * Film Library- Storage Only CT Chest (11/19/2019 12:00 AM EDT) Narrative [facility] - 04/01/2020 8:29 AM EST This exam is auto-finalizing. It's purpose is for storage only. Hetal Ojeda MD IMG FILM LIBRARY ORD ERABLES [place], [place] documented in this encounter Visit Diagnoses Not on filedocumented in this encounter Care Teams Behavioral Medical Director Relationship Specialty Start Date End Date Travis Castaneda MD [address] [place] [address] PCP - General Internal Medicine 10/29/18 09/27/23 documented as of this encounter
--- OUTSIDE RECORDS SUMMARY | 2024-02-29 09:01 | XMS_ITS | Encounter Summary ---
Author Organization [facility] Address [facility] [place] [address] Care Team Providers Care Evp Sales Name Role Phone Travis Castaneda MD Primary Care Provider [phone] Reason for Visit * Reason Comments Follow-up Encounter Details Date Type Department Care Team (Late st Contact Info) Description 03/19/2020 11:00 AM EST [place] [phone] Hetal Ojeda MD [facility] [place] [address] Asthma-COPD overlap syndrome; Hypoxia; COPD exacerbation; Cigarette nicotine dependence with other nicotine-induced disorder [...] Sign Reading Time Taken Comments Blood Pressure 141/71 03/19/2020 10:51 AM EST Pulse 87 03/19/2020 10:51 AM EST Temperature 37.3 ??C (99.2 ??F) 03/19/2020 10:[address] Respiratory Rate 16 03/19/2020 10:51 AM EST Oxygen Saturation 83% 03/19/2020 10:51 AM EST Inhaled Oxygen Concentration - - Weight 93.4 kg (206 lb) 03/19/2020 10:51 AM EST Height 175.3 cm (5' 9) 03/19/2020 10:51 AM EST Body Mass Index 30.42 03/19/2020 10:51 AM EST documented in this encounter Patient Instructions * Patient Instructions* Hetal Ojeda MD - 03/19/2020 11:00 AM EST Increase prednisone back to 20 mg daily for a week, then 10 mg daily now. documented in this encounter Progress Notes * Hetal Ojeda MD - 03/19/2020 11:00 AM EST Images from the original note were not included. [facility] Section of Pulmonary and Critical Care Medicine Outpatient Consultation Date of Encounter: 03/19/2020 Reason for Evaluation: Mr. Garret Barros returns to the pulmonary clinic for follow-up of severe oxygen dependent asthma-COPD overlap syndrome and tobacco use. I independently interviewed the patient, have examined the patient if this visit was conducted in the office and have reviewed available records. Dear Dr. Travis Castaneda MD, As you know, Garret Barros is a 44 y.o. man with severe asthma-COPD??overlap syndrome, oxygen dependency, prior pulmonary nodules,??ongoing??tobacco use, in the setting of anxiety, history of substance abuse in remission, who was last seen in pulmonary clinic 02/13/2020. Mr. Barros reports he had another respiratory exacerbation and was hospitalized at [facility] a couple weeks ago. Symptoms improved with treatment there, and he has been home for about a week. He feels his shortness of breath is worsening again since then. He has cough, pleuritic chest pain (whichhe frequently has), sputum production, wheezing. He does not identify any triggers for his exacerbat ion. He does think the prednisone course in January helped. He is using oxygen 24/7 at home (has in the car today he says; didn't bring it into the clinic.) Hereports feeling sweaty and having body aches. He is tired. He reports that he missed his medications again this morning because his ride arrived early. This has happened on multiple occasions now. He otherwise reports good compliance with anoro ellipta, flovent 220, and is using albuterol and combivent inhalers PRN. He tells me he is currently on doxycycline again. He also tells me he is currently on prednisone 10 mg daily now; this was prescribed 6 days ago, this follows a long prednisone taper which I prescribed in January. I also see prednisone rx from 02/02 and 12/12. He does tell me that inhalers have been expensive in the past; his combivent is $3.80, albuterol and anoro ellita are closer to $1. He can currently afford them. He has two dogs. He is still smoking a little, about 1 pack per week. Less now due to dyspnea. Current Medications at Start of Encounter: Outpatient Medications Prior to Visit Medication Sig Dispense Refill ??? predniSONE (Deltasone) 20 mg Tablet Take 40 mg daily for 5 days, then 30 mg daily for 5 days then 20 mg daily for 5 days then 10 mg daily for 5 days then stop. 30 tablet 0 ??? azithromycin (Zithromax) 250 mg Tablet Take 1 tablet by mouth three times a week. 13 tablet 3 ??? lisinopriL (Prinivil;Zestril) 20 mg Tablet Take [...] HPI, and otherwise negative. Physical Examination: BP 141/71 Pulse 87 Temp 37.3 ??C (99.2 ??F) Resp 16 Ht 175.3 cm (5' 9) Wt 93.4 kg (206 lb) SpO2 (!) 83% BMI 30.42 kg/m?? (SpO2 of 83% was on room air.) GEN: NAD, thin, chronically ill appearing, conversational HEENT: neck supple, no adenopathy or tenderness, MMM CV: RRR, no murmur PULM: normal WOB, diffuse moderate wheezing throughout all lung henriquez but air movement is decent throughout the chest with minimal prolongation of exhalation; no crackles, no cyanosis or clubbing ABD: soft, NT/ND MSK: no joint swelling, he is easily ambulatory EXT: no edema, not tender DERM: no rash NEURO: AAO, appropriate, voice is clear Pulmonary Function Test Results: Not repeated with this visit. Prior PFTs 02/13/2020 limited but difficulty sustaining exhalation; suspected severe airflow obstruction. Labs, Microbiology and Imaging: I personally reviewed relevant laboratory, microbiologic and radiology results which were significant for: No new chest imaging in our system. Most recent chest xray available 01/29/2020, shows generally clear lungs, slight linear atelectasis LLL. Prior chest CT imaging from 2019 shows severe emphysema. Immunization History: Flu vaccine: Pneumovax: yes, 2011 Prevnar-13: NA Impression and Recommendations: Garret Barros is a 44 y/o man who is an active cigarette and marijuana smoker with GOLD stage D COPD with concern for possible asthma-COPD overlap syndrome with severe airflow obstruction and oxygen-dependence, who again returns to clinic reporting recent hospitalization for acute COPD exacerbationwith ongoing respiratory symptoms. He has been on prednisone for much of the past two months. Adherence with daily treatments is difficult to ascertain as he repeatedly comes to clinic without his portable oxygen and tells me he missed his morning meds each clinic day, but then tells me he never misses his medications and uses his oxygen all of the time. Given severity of his disease, it may be helpful to consider chronic prednisone therapy if his pattern of frequent exacerbations continues. At this visit I recommended he increase his prednisone back to 20 mg po daily x 1 week then prednisone 10 mg po daily for a week. He did not recall the previous trial of chronic azithromycin being very helpful so I am not re- prescribing this. He otherwise is on LAMA/LABA therapy with anoro ellipta and ICS with flovent 220, and using combivent frequently. I encouraged him to continue use of supplemental oxygen 21/11. I counseled him on the importance of tobacco and marijuana smoking cessation, and he is pre-contemplative. Of note, his care seems somewhat fragmented given frequent ED visits and hospitalizations across multiple hospital systems. We will request imaging from other hospital systems for review, including chest CT from 09/2019 which I do not currently have access to. Summary Recommendations: - continue current anoro ellipta daily, flovent 220 two puffs BID, combivent PRN - continue supplemental O2, 2 L at rest and 3 L with ambulation - increase prednisone to 20 mg daily now x 1 week, then back down to 10 mg po daily; if flares again when tapering off would consider chronic low-dose prednisone use (10 mg daily) - has not perceived benefit from chronic azithromycin; would not continue for now - tobacco/marijuana cessation strongly recommended Follow-up in 3 months with in-office visit Thank you for involving me in Mr. Barros's care. Please feel free to contact me with any further questions or concerns. This visit included 5 minutes of tobacco cessation counseling. Hetal Ojeda MD [facility] PULMONOLOGY AT [facility] [address] Dept: [phone] Loc: [phone] documented in this encounter Plan of Treatment Upcoming Encounters Date Type Department Care Team (Late st Contact Info) Description 03/18/2024 8:30 AM EST Appointment [place] [address] 03/18/2024 9:30 AM EST [place] [address] Hetal Ojeda MD [facility] [place] [address] documented as of this encounter Visit Diagnoses Diagnosis Asthma-COPD overlap syndrome Hypoxia Hypoxemia COPD exacerbation Obstructive chronic bronchitis with exacerbation Cigarette nicotine dependence with other nicotine-induced disorder documented in this encounter Care Teams Evp Sales Relationship Specialty Start Date End Date Travis Castaneda MD [address] [place] [address] PCP - General Internal Medicine 10/29/18 09/27/23 documented as of this encounter
--- OUTSIDE RECORDS SUMMARY | 2024-02-29 09:01 | XMS_ITS | Encounter Summary ---
Author Organization [facility] Address [facility] [place] [address] Care Team Providers Care Soap Mixer Name Role Phone Travis Castaneda MD Primary Care Provider [phone] Reason for Visit * Reason Onset Date Comments Request For Record 02/18/2020 Office visit notes Encounter Details Date Type Department Care Team (Late st Contact Info) Description 02/18/2020 Telephone Pulmonology at [facility] [place] [phone] Dawood Leyva RN Request For Record (Office visit notes) Social History Tobacco Use Types Packs/Day Years [...] Telephone Encounter - Dawood Leyva RN - 02/18/2020 11:51 AM EDT Rec'd call from Martina from [place] [employer], 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 Ojeda for continuity of care and follow up. Office visit notes from 02/13/2020 have not been finalized at this time. Unable to send at this time. RN contacted Martina back to update that Dr. Ojeda had not completed the office visit notes. Martina stated that she was aware that the patient had a follow up, which had not been scheduled at this time. Martina also stated that it was relayed that Garret was supposed to have a follow up CXR for abnormality found in prior xray. RN noted that no order was currently in place, but Dr. Ojeda's note might note this. Patient uses [place] [employer] for rides, and Martina will be sending referral form for this, which needs to be completed and returned prior to appointment. Confirmed fax number. Message sent to pulmonary secretaries for scheduling follow up. documented in this encounter Plan of Treatment Upcoming Encounters Date Type Department Care Team (Late st Contact Info) Description 03/18/2024 8:30 AM EST [place] [address] 03/18/2024 9:30 AM EST [place] [address] MD [facility] [place] [address] documented as of this encounter Visit Diagnoses Not on filedocumented in this encounter Care Teams Soap Mixer Relationship Specialty Start Date End Date Travis Castaneda MD [address] [place] [address] PCP - General Internal Medicine 10/29/18 09/27/23 documented as of this encounter
--- OUTSIDE RECORDS SUMMARY | 2024-02-29 09:01 | XMS_ITS | Encounter Summary ---
Author Organization [facility] Address [facility] [place] [address] Care Team Providers Care Education Professional Name Role Phone Travis Castaneda MD Primary Care Provider [phone] Reason for Visit * Reason Comments Follow-up Encounter Details Date Type Department Care Team (Late st Contact Info) Description 08/07/2020 11:00 AM EDT Office [place] [phone] Hetal Ojeda MD [facility] [place] [address] Asthma-COPD overlap syndrome; COPD exacerbation; Lung nodule; Dependence on supplemental oxygen; Cigarette [...] Sign Reading Time Taken Comments Blood Pressure 117/97 08/07/2020 10:57 AM EDT Pulse 79 08/07/2020 10:57 AM EDT Temperature 37.4 ??C (99.4 ??F) 08/07/2020 10:57 AM E DT Respiratory Rate - - Oxygen Saturation 86% 08/07/2020 10:57 AM EDT Inhaled Oxygen Concentration - - Weight 93.4 kg (206 lb) 08/07/2020 10:57 AM EDT Height 172.7 cm (5' 8) 08/07/2020 10:57 AM EDT Body Mass Index 31.32 08/07/2020 10:57 AM EDT documented in this encounter Progress Notes * Hetal Ojeda MD - 08/07/2020 11:00 AM EDT Images from the original note were not included. [facility] Section of Pulmonary and Critical Care Medicine Outpatient Consultation Date of Encounter: 08/07/2020 Reason for Evaluation: Mr. Garret Barros returns to the pulmonary clinic for follow-up of COPD. I independently interviewed the patient, have examined the patient if this visit was conducted in the office and have reviewed available records. Dear Dr. Travis Castaneda MD, As you know, Garret Barros is a 45 y.o. man with severe asthma-COPD??overlap syndrome, oxygen dependency, prior pulmonary nodules,??ongoing??tobacco use, in the setting of anxiety, history of substance abuse in remission, who was last seen in pulmonary clinic March 2020. Mr. Barros reports that he is still struggling with breathing. Short of breath. Coughing a lot, including at night. He can't remember whether prednisone rx after his last visit helped. He says he ran out of his inhalers because he uses them more than as directed, and can't get them refilled, althoughthis was reclarified to running out of albuterol not his controller inhalers. He says he was throwing up last night. He also says he was coughing up bloody mucous. He tells me he stayed up watching TV until 6 AM this morning, and that he is tired because of this.Nursing staff noted that he was sleepy while waiting for this visit. I asked him about his facial bruising; he says he fell into a television at home recently from a mechanical fall, and injured his face and back. I asked if he went to the ED for this and he wasn't sure. He thinks that his prosthetic leg is a problem. He did not wish to pursue further evaluation forhis facial bruising. He also reports ongoing stomach pain, fatigue, possible fever recently although this was very nonspecific. He thinks he has been at the hospital recently but could not remember when, where or give me any details regarding how many hospitalizations he has had since his last visit. I do see indication of a evaluation for pneumonia, COPD exacerbation in June associated with [facility], and there is a indication a chest x-ray was done at that time but I am not able to access records of this x-ray. Discharge instructions indicate he was started on clindamycin possibly for cellulitis at that time. I asked if he has seen his PCP recently, and he said he will see him next week. He reports he gets benefit from combivent, albuterol inhalers. He is taking anoro ellipta daily. He is taking flovent twice a day. Thinks it helps. He reports that he is using an oxygen concentrator at home all the time, but he didn't bring any with him today. This has been a recurring issue with him arriving for pulmonary visits without his oxygen. Typically he reports using 2.5 LPM, sometimes 3. Denies any alcohol use in the past year. Has cut down on smoking because it makes him very short of breath. Sounds like it's only a few cigarettes a day. Occasional marijuana use. Current Medications at Start of Encounter: Outpatient [...] daily (after meals).) 60 capsule 0 ??? predniSONE (Deltasone) 20 mg Tablet Take 40 mg daily for 5 days, then 30 mg daily for 5 days then 20 mg daily for 5 days then 10 mg daily for 5 days then stop. (Patient not taking: Reported on 08/07/2020) 30 tablet 0 ??? codeine-guaiFENesin (guaiFENesin AC) 10-100 mg/5 mL Liquid Take 5 mLs by mouth 3 times daily asneeded for Cough. Do not take with ativan (Patient not taking: Reported on 02/13/2020) 120 mL 0 ??? busPIRone (BUSPAR) 15 mg Tablet Take 15 mg by mouth 3 times daily. ??? calcium carbonate (TUMS) 200 mg calcium (500 mg) Tablet, Chewable Take 2 tablets by mouth 3 times daily as needed for Heartburn. No facility-administered medications prior to visit. Review of Systems: A focused ROS was completed and was positive as noted in HPI, and otherwise negative. Physical Examination: BP (!) 117/97 Pulse 79 Temp 37.4 ??C (99.4 ??F) (Temporal) Ht 172.7 cm (5' 8) Wt 93.4 kg (206 lb) SpO2 (!) 86% BMI 31.32 kg/m?? GEN: He is alert, conversational, appears chronically ill but in no acute distress HEENT: Neck is supple, anicteric sclera, moist mucous membranes CV: Regular rate and rhythm, quiet heart sounds, no murmur PULM: Normal work of breathing at rest, somewhat increased with getting onto exam table, with diffusely diminished breath sounds throughout and diffuse mid to end expiratory wheezing throughout, but no crackles, no cyanosis and no clubbing ABD: Soft, nontender MSK: No joint swelling; he has a right lower leg prosthesis, and he is ambulatory EXT: No edema in left leg DERM: No rash; there is significant facial bruising present which appears subacute NEURO: Alert, oriented, he is a poor historian regarding his medical history similar to prior visits and is otherwise appropriate Pulmonary Function Test Results: Not repeated with this visit Prior testing demonstrates markedly reduced FEV1 and FVC, limited interpretation due to short duration of exhalation which limits determination of airflow obstruction Labs, Microbiology and Imaging: I personally reviewed relevant laboratory, microbiologic and radiology results which were significant for: Chest x-ray 04/08/2020: Progression of basilar opacity suggestive of atelectasis, rest of lung appears somewhat hypervascular Eosinophils were 0 on 04/08/2020 Impression and Recommendations: Garret Barros is a 45 y/o man who is an active cigarette and marijuana smoker with GOLD stage D COPD with concern for possible asthma-COPD overlap syndrome with severe airflow obstruction and oxygen-dependence, frequent prednisone use, frequent prior diagnoses of pneumonia, who returns to pulmonarycare with report of ongoing poor respiratory function. It was difficult to ascertain how consistenthe is with his inhaled therapies, and I recommended we continue on triple inhaled therapy as it is currently prescribed. He is using his short acting rescue inhalers frequently. I encouraged him to use his oxygen as directed including with ambulation such as when he goes to medical appointments, asI think this may assist with his management of dyspnea. At this visit he appeared to have a subacute exacerbation of his COPD. We discussed the option of going to the emergency room however Mr. Barros repeated multiple times that he did not wish to go to the emergency room. I again prescribed prednisone as well as azithromycin courses; the prednisone course is written for a long taper over the next 3 weeks, with instructions for him to contact our office when he is down to 10 mg daily so that we can decide whether he would be beneficial to continue him on chronic low-dose prednisone. I am concerned that he reaches out primarily when he has decompensated respiratory symptoms, and there may be value in using chronic prednisone to prevent these decompensations despite the associated risks of chronic steroid use. Repeat chest CT imaging to follow-up on a previously seen 5 mm lung nodule is indicated, and we discussed the benefit of repeating imaging. Mr. Barros is interested in pursuing this and I have ordered the chest CT which will be coordinated with his next visit. I counseled him on the importance of tobacco cessation, and while he is cutting down because smoking causes too much shortness of breath now he was somewhat noncommittal about stopping entirely. Mr. Barros has severe COPD at a very young age. We have not formally discussed lung transplant evaluation. At this time I encouraged him to engage more consistently in his medical care including with his primary care doctor, use medications as directed, and work toward tobacco cessation, all of whichwould be prerequisites for a lung transplant. Summary Recommendations: - Azithromycin x5-day course, prescribed -Prednisone taper, beginning with 40 mg daily, taper over next 20 days, prescribed, with patient tocall pulmonary office to discuss when he completes this course -Chest CT ordered to follow-up on previous pulmonary nodule -Continue current inhalers anoro ellipta daily, flovent 220 two puffs BID, combivent PRN, albuterolas needed -Continue supplemental oxygen use, 2 L at rest, 3 L with ambulation Tobacco and marijuana cessation advised I encouraged him to follow-up with his primary care team regarding his abdominal concerns Follow-up in 3 months with in office visit Thank you for involving me in Mr. Barros's care. Please feel free to contact me with any further questions or concerns. Hetal Ojeda MD [facility] PULMONOLOGY AT [facility] [address] Dept: [phone] Loc: [phone] documented in this encounter Plan of Treatment Upcoming Encounters Date Type Department Care Team (Late st Contact Info) Description 03/18/2024 8:30 AM EST Appointment [place] [address] 03/18/2024 9:30 AM EST [place] [address] Hetal Ojeda MD [facility] [place] [address] documented as of this encounter Visit Diagnoses Diagnosis Asthma-COPD overlap syndrome COPD exacerbation Obstructive chronic bronchitis with exacerbation Lung nodule Solitary pulmonary nodule Dependence on supplemental oxygen Cigarette nicotine dependence with other nicotine-induced disorder documented in this encounter Care Teams Education Professional Relationship Specialty Start Date End Date Travis Castaneda MD [address] [place] [id number] PCP - General Internal Medicine 10/29/18 09/27/23 documented as of this encounter
--- OUTSIDE RECORDS SUMMARY | 2024-02-29 09:01 | XMS_ITS | Encounter Summary ---
Author Organization [facility] Address [facility] [place] [address] Care Team Providers Care Band Sawmill Operator Name Role Phone Travis Castaneda MD Primary Care Provider [phone] Encounter Details Date Type Department Care Team (Late st Contact Info) Description 10/18/2019 Ancillary Procedure Radiology Library at [facility] [place] [phone] Hetal Ojeda MD [facility] [place] [address] Social History Tobacco Use Types Packs/Day Years [...] 03/18/2024 8:30 AM EST [place]oint[place] [phone] 03/18/2024 9:30 AM EST [place] [phone] Hetal Ojeda MD [facility] [place] [address] documented as of this encounter Procedures Procedure Name Priority Date/Time Associated Diagnosis Comments FILM LIBRARY STORAGE ONLY DX CHEST Routine 10/18/2019 12:00 AM EDT documented in this encounter Results * Film Library- Storage Only DX Chest (10/18/2019 12:00 AM EDT) Narrative SNEHA - 04/01/2020 8:03 AM EST This exam is auto-finalizing. It's purpose is for storage only. Hetal Ojeda MD IMG FILM LIBRARY ORD ERABLES [place], [place] documented in this encounter Visit Diagnoses Not on filedocumented in this encounter Care Teams Band Sawmill Operator Relationship Specialty Start Date End Date Travis Castaneda MD [address] [place] [address] PCP - General Internal Medicine 10/29/18 09/27/23 documented as of this encounter
--- OUTSIDE RECORDS SUMMARY | 2024-02-29 09:01 | XMS_ITS | Encounter Summary ---
Author Organization [facility]ly [facility] Address [facility] [place] [address] Care Team Providers Care Lot Porter Name Role Phone Travis Castaneda MD Primary Care Provider [phone] Encounter Details Date Type Department Care Team (Late st Contact Info) Description 11/11/2019 [place] [address] Linda Baker LNA Social History [...] Telephone Encounter - Linda Baker LNA - 11/11/2019 10:34 AM EDT Call from pt, referral was sent for him to see us. Pt saw Dr. Sharp last year. Scheduled in clinicappt with Dr. Ojeda on 01/28. Letter sent. documented in this encounter Plan of Treatment Upcoming Encounters Date Type Department Care Team (Late st Contact Info) Description 03/18/2024 8:30 AM EST [place] [address] 03/18/2024 9:30 AM EST [place] [address] Hetal Ojeda MD [facility] [place] [address] documented as of this encounter Visit Diagnoses Not on filedocumented in this encounter Care Teams Lot Porter Relationship Specialty Start Date End Date Travis Castaneda MD [address] [place] [address] PCP - General Internal Medicine 10/29/18 09/27/23 documented as of this encounter
--- OUTSIDE RECORDS SUMMARY | 2024-02-29 09:02 | XMS_ITS | Encounter Summary ---
Author Organization [facility] [place] [address] Care Team Providers Care Trichologist Name Role Phone Travis Castaneda MD Primary Care Provider + [phone] Encounter Details Date Type Department Care Team (Late st Contact Info) Description 02/08/2019 Telephone Infectious Disease at [facility] [place] [phone] Abilio Ruiz RN Social History Tobacco Use Types Packs/Day [...] encounter Miscellaneous Notes * Telephone Encounter - Abilio Ruiz RN - 02/08/2019 11:48 AM EDT 02/08/2019 HCV Initial Telephone Note Referred by: Anjum Maier MD Best Contact Method: Home telephone # [phone] LABS HCV antibody (+): HCV pcr: [id number] (09/06/2017) Genotype: not done/not available Fibrosure: not done/not available IMAGING Ultrasound: not done/not available Fibroscan: not done/not available Risk factors: Reports IVDU (unspecific in regard to substances) when 16 years old. Reports no recent substance use. Reports no recent sexual encounters. Active substance use: denies Alcohol use: Reports is in recovery, and has been sober for over 2 months, with recent stay at [facility] (in [place], [place]) Assessment of readiness to engage in treatment: patient states feels ready to engage in care Barriers to engagement-none reported Transportation/Housing: Substance use history: Reports no recent substance use. Legal issues: none Support: will discuss more in-depth at hospital visit Insurance: [place] Medicaid, Medicare Part A/Medicare Part B Other Health concerns: Past Medical History: Diagnosis Date ??? Alcohol abuse ??? Anxiety ??? Opioid abuse LABS (09/06/2017 labs-scanned documents tab in eDH) Hep A status: positive Hep B status: Hep B surface AB positive, Hep B surface Ag negative, Hep B core AB negative HIV status: negative (4th generation test) Previous treatment history: treatment naive Educational Needs: medication adherence, and re-infection with risk-factors (reviewed risk factors with patient) Appointment date: 02/13/2019 Labs ordered: TBD, will most likely have drawn at appointment/office visit Records requested: none Releases obtained: none PCP/ other provider: Dr. Travis Castaneda Discussed expectations/ schedule for clinic and lab appointments and importance of med adherence. Patient verbalizes understanding, and feels ready to engage in care/start treatment. Plan: Patient will come [place] [facility] staff, Dr. Wyatt, on MondayFebruary 13 09:00-confirmed with patient. Abilio Ruiz RN documented in this encounter Plan of Treatment Upcoming Encounters Date Type Department Care Team (Late st Contact Info) Description 03/18/2024 8:30 AM EST [place] [address] 03/18/2024 9:30 AM EST [place] [address] Hetal Ojeda MD [facility] [address] documented as of this encounter Visit Diagnoses Not on filedocumented in this encounter Care Teams Trichologist Relationship Specialty Start Date End Date Travis Castaneda MD [address] [place] [address] PCP - General Internal Medicine 10/29/18 09/27/23 documented as of this encounter
--- OUTSIDE RECORDS SUMMARY | 2024-02-29 09:02 | XMS_ITS | Encounter Summary ---
Author Organization [facility] Address [facility] [place] [address] Care Team Providers Care Soft Sugar Operator Head Name Role Phone Travis Castaneda MD Primary Care Provider [phone] Encounter Details Date Type Department Care Team (Late st Contact Info) Description 10/16/2019 Ancillary Procedure Radiology Library at [facility] [place] [phone] Hetal Ojeda MD [facility] [place] [address] Social History Tobacco Use Types Packs/Day Years [...] 03/18/2024 8:30 AM EST Appointment [place] [phone] 03/18/2024 9:30 AM EST [place] [phone] Hetal Ojeda MD [facility] [place] [address] documented as of this encounter Procedures Procedure Name Priority Date/Time Associated Diagnosis Comments FILM LIBRARY STORAGE ONLY CT CHEST Routine 10/16/2019 12:00 AM EDT documented in this encounter Results * Film Library- Storage Only CT Chest (10/16/2019 12:00 AM EDT) Narrative SNEHA - 04/01/2020 8:24 AM EST This exam is auto-finalizing. It's purpose is for storage only. Hetal Ojeda MD IMG FILM LIBRARY ORD ERABLES [place], [place] documented in this encounter Visit Diagnoses Not on filedocumented in this encounter Care Teams Soft Sugar Operator Head Relationship Specialty Start Date End Date Travis Castaneda MD [address] [place] [address] PCP - General Internal Medicine 10/29/18 09/27/23 documented as of this encounter
--- OUTSIDE RECORDS SUMMARY | 2024-02-29 09:02 | XMS_ITS | Encounter Summary ---
Author Organization [facility] Address [facility] [place] [address] Care Team Providers Care Enrichment Assistant Name Role Phone Travis Castaneda MD Primary Care Provider [phone] Reason for Visit * Auth/Cert Specialty Diagnoses / Procedures Referred By Gulshan arguelles Referred To Contact Diagnoses COPD exacerbation COPD with exacerbation Referral ID Status Reason Start Date Expiration Date Visits Re quested Visits Authorized [id number] 1 1 Encounter Details Date Type Department Care Team (Latest Contact Info) Description 01/28/2019 2:30 PM EDT - 01/28/2019 5:49 PM EDT Hospital En[place] [phone] Hypoxia Discharge Disposition: Home Social History Tobacco Use Types Packs/Day Years Used Date Smoking Tobacco: Every Day Cigarettes 0.3 30 Smokeless Tobacco: Never Sex and Gender Information Value Date Recorded Sex Assigned at Not on file Gender Identity Not on file Sexual Orientation Not on file documented as of this encounter Medications at Time of Discharge Medication Sig Dispensed Refills Start Date End Date LORazepam (ATIVAN) 1 mg Tablet Take 1 [...] 3 times daily. 60 capsule 11/26/2018 predniSONE (DELTASONE) 10 mg Tablet Take 6 tablets by mouth daily for 1 day, THEN 5 tablets daily for 3 days, THEN 4 tablets daily for 3 days, THEN 3 tablets daily for 3 days, THEN 2 tablets daily for 3 days, THEN 1 tablet daily for 3 days. 51 tablet 01/31/2019 02/16/2019 DULoxetine (CYMBALTA) 60 mg Capsule, Delayed Release(E.C.) Take 1 capsule by mouth 2 times daily. 01/31/2019 12/19/2022 LORazepam (ATIVAN) 1 mg Tablet Take 1 tablet by mouth 2 times daily as needed for Anxiety. 10 tablet 01/22/2019 01/31/2019 predniSONE (DELTASONE) 10 mg Tablet Take 4 tablets by mouth daily for 1 day, THEN 3 tablets daily for 3 days, THEN 2 tablets daily for 3 days, THEN 1 tablet daily for 3 days. 22 tablet 01/23/2019 01/31/2019 busPIRone (BUSPAR) 15 mg Tablet Take 15 mg by mouth 3 times daily. 06/03/2022 DULoxetine (CYMBALTA) 60 mg Capsule, Delayed Release(E.C.) Take 1 capsule by mouth daily. 30 tablet 11 11/27/2018 01/31/2019 QUEtiapine (SEROQUEL) 200 mg Tablet Take 1 tablet by mouth nightly. 60 tablet 11/26/2018 01/31/2019 documented as of this encounter Procedure Notes * Kareem Knight MD - 01/28/2019 5:49 PM EDTAssociated Order(s): PULMONARY FUNCTION TEST A. SPIROMETRY Reveals (Pre Bronchodilator based on FEV1 %predicted) a very sever (<35%) obstructive ventilatory dysfunction (OVD). B. DIFFUSING CAPACITY: The adjusted diffusing capacity(DLCO) for hemoglobin is mildly reduced (>60%-LLN) Causes of reduced DLCO include loss of effective surface area for gas exchange, decreased pulmonarycapillary blood volume, anemia or carboxyhemoglobinemia. C. PULSE OXIMETRY: Resting oxyhemoglobin saturation on room air is reduced: 82%. The flow rate necessary to achieve adequate oxyhemoglobin saturation during rest was 3 LPM. Ambulatory oximetry was assessed while the patient was on supplemental oxygen at 3 LPM. The lowest saturation was 87%. The flow rate necessary to achieve adequate oxyhemoglobin saturation during ambulation was 4 litersper minute. D. The FeNO in ppb for this patient at today's visit was: 10 ppb Fraction of Exhaled Nitric Oxide (FeNO) Measurement ?? Nitric oxide (NO) is recognized as a biomarker for eosinophilic airway inflammation, as is generally the case in asthma.?? Measuring NO in exhaled breath can help determine whether non-specific respiratory symptoms of wheezing, dyspnea, and cough are due to asthma.?? However, there are several important limitations of using this test to diagnose and treat asthma.?? Guidelines from a 2011 AmericanThoracic Society (ATS) executive summary on the clinical use of FeNO are listed. ?? Diagnostic Use: A FeNO <25 ppb suggests that eosinophilic airway inflammation, and by inference, clinical responsiveness to corticosteroids, is less likely. A FeNO >50 ppb indicates that eosinophilic airway inflammation and responsiveness to corticosteroids in symptomatic patients are both likely. FeNO levels between 25 and 50 ppb should be interpreted cautiously and in context. Persistent and/or high allergen exposure is a factor associated with higher FeNO levels (>50 ppb). The presence or absence of respiratory symptoms is an important consideration when interpreting FeNO. ?? Monitoring Response: A minimally important decrease in FeNO is defined as >20% for values >50 ppb or more than 10 ppb for values <50 ppb from one visit to the next. A reduction of an elevated FeNO of >20% occurring 2-6 weeks after anti- inflammatory treatment initiation is consistent with therapeutic efficacy. ?? E. FINAL IMPRESSION: The reduced DLCO in conjunction with OVD suggest the presence of emphysema. Significant oxyhemoglobin desaturation at rest and during ambulation. Recommend supplemental oxygenat a flow rate of 4 LPM by nasal cannula during exertion and 3 LPM at rest. documented in this encounter Miscellaneous Notes * Addendum Note - Kareem Knight MD - 01/28/2019 5:49 PM EDTEncounter addended by: Kareem Knight MD on: 01/29/2019 2:22 PM Actions taken: Sign clinical note, Charge Capture section accepted documented in this encounter Plan of Treatment Upcoming Encounters Date Type Department Care Team (Late st Contact Info) Description 03/18/2024 8:30 AM EST Appointment [place] [address] 03/18/2024 9:30 AM EST [place] [address] Hetal Ojeda MD [facility] [place] [address] documented as of this encounter Procedures Procedure Name Priority Date/Time Associated Diagnosis Comments COMMON PULMONARY FUNCTION TEST Routine 01/28/2019 5:49 PM EDT Hypoxia documented in this encounter Results * Pulmonary Function Testing (01/28/2019 5:49 PM EDT) Narrative Kareem Knight MD - 01/28/2019 5:49 PM EDT Kareem Knight MD ? 01/29/2019 ??2:21 PM A. SPIROMETRY Reveals (Pre Bronchodilator based on FEV1 %predicted) a very sever (<35%) obstructive ventilatory dysfunction (OVD). B. DIFFUSING CAPACITY: The adjusted diffusing capacity(DLCO) for hemoglobin is mildly reduced (>60%-LLN) Causes of reduced DLCO include loss of effective surface area for gas exchange, decreased pulmonary capillary blood volume, anemia or carboxyhemoglobinemia. C. PULSE OXIMETRY: Resting oxyhemoglobin saturation on room air is reduced: 82%. The flow rate necessary to achieve adequate oxyhemoglobin saturation during rest was 3 LPM. Ambulatory oximetry was assessed while the patient was on supplemental oxygen at 3 LPM. ??The lowest saturation was 87%. The flow rate necessary to achieve adequate oxyhemoglobin saturation during ambulation was 4 liters per minute. D. The FeNO in ppb for this patient at today's visit was: 10 ppb Fraction of Exhaled Nitric Oxide (FeNO) Measurement ?? Nitric oxide (NO) is recognized as a biomarker for eosinophilic airway inflammation, as is generally the case in asthma.?? Measuring NO in exhaled breath can help determine whether non-specific respiratory symptoms of wheezing, dyspnea, and cough are due to asthma.?? However, there are several important limitations of using this test to diagnose and treat asthma.?? Guidelines from a 2011 [place] Thoracic Society (ATS) executive summary on the clinical use of FeNO are listed. ?? Diagnostic Use: A FeNO <25 ppb suggests that eosinophilic airway inflammation, and by inference, clinical responsiveness to corticosteroids, is less likely. A FeNO >50 ppb indicates that eosinophilic airway inflammation and responsiveness to corticosteroids in symptomatic patients are both likely. FeNO levels between 25 and 50 ppb should be interpreted cautiously and in context. Persistent and/or high allergen exposure is a factor associated with higher FeNO levels (>50 ppb). The presence or absence of respiratory symptoms is an important consideration when interpreting FeNO. ?? Monitoring Response: A minimally important decrease in FeNO is defined as >20% for values >50 ppb or more than 10 ppb for values <50 ppb from one visit to the next. A reduction of an elevated FeNO of >20% occurring 2-6 weeks after anti-inflammatory treatment initiation is consistent with therapeutic efficacy. ?? E. FINAL IMPRESSION: The reduced DLCO in conjunction with OVD suggest the presence of emphysema. Significant oxyhemoglobin desaturation at rest and during ambulation. Recommend supplemental oxygen at a flow rate of 4 LPM by nasal cannula during exertion and 3 LPM at rest. Ese Monge MD PFT ORDERABLES documented in this encounter Visit Diagnoses Diagnosis Hypoxia Hypoxemia documented in this encounter Care Teams Enrichment Assistant Relationship Specialty Start Date End Date Travis Castaneda MD [address] [place] [address] PCP - General Internal Medicine 10/29/18 09/27/23 documented as of this encounter
--- OUTSIDE RECORDS SUMMARY | 2024-02-29 09:02 | XMS_ITS | Encounter Summary ---
Author Organization [facility] Address [facility] [place] [address] Care Team Providers Care Acute Dialysis Registered Nurse Name Role Phone Travis Castaneda MD Primary Care Provider [phone] Encounter Details Date Type Department Care Team (Late st Contact Info) Description 02/27/2019 Notes Only Infectious [facility] [place] [phone] Abilio Ruiz RN Social History Tobacco Use [...] on file documented as of this encounter Progress Notes * Abilio Ruiz RN - 02/27/2019 10:25 AM EDT Mr. Barros is a 43 yo male, in today to meet with Dr. Wyatt and Dr. Tapia to discuss chronic Hepatitis C. Patient appears anxious, and requesting anti-anxiety medication, and not able to voice why feeling this anxiety. Reports is ready to engage in care for treatment for Hepatitis C, but has some barriers to care at this time. -Encouraged patient to link into wellness visits with PCP (Dr. Castaneda) for routine care and follow up. -Plan is for CT/chest and liver - in 04/17/2019. Will have bloodwork at this time, and return to ID clinic for follow up visit. -Patient given RN care (with name and contact number), so may discuss ongoing plan of care. 02/08/2019 ?? HCV Initial Telephone Note ?? Referred by: Anjum Maier MD ?? Best Contact Method: Home telephone # [phone] ?? LABS HCV antibody (+): HCV pcr: [id number] (09/06/2017) Genotype: not done/not available Fibrosure: not done/not available ?? IMAGING Ultrasound: not done/not available Fibroscan: not done/not available ?? Risk factors: Reports IVDU (unspecific in regard to substances) when 16 years old. Reports no recent substance use. Reports no recent sexual encounters. Active substance use: denies Alcohol use: Reports is in recovery, and has been sober for over 2 months, with recent stay at [facility] (in [place], [place]) ?? Assessment of readiness to engage in treatment: patient states feels ready to engage in care ?? Barriers to engagement-none reported Transportation/Housing: Substance use history: Reports no recent substance use. Legal issues: none Support: will discuss more in-depth at hospital visit Insurance: [place] Medicaid, Medicare Part A/Medicare Part B ? Other Health concerns: ?? Past Medical History Past Medical History: Diagnosis Date ??? Alcohol abuse ? Anxiety ? Opioid abuse ? LABS (09/06/2017 labs-scanned documents tab in eDH) Hep A status: positive Hep B status: Hep B surface AB positive, Hep B surface Ag negative, Hep B core AB negative HIV status: negative (4th generation test) ?? Previous treatment history: treatment naive Educational Needs: medication adherence, and re-infection with risk-factors (reviewed risk factors with patient) ?? Appointment date: 02/13/2019 Labs ordered: TBD, will most likely have drawn at appointment/office visit Records requested: none Releases obtained: none ?? PCP/ other provider: Dr. Travis Castaneda ?? Discussed expectations/ schedule for clinic and lab appointments and importance of med adherence. Patient verbalizes understanding, and feels ready to engage in care/start treatment. ?? Plan: Patient will come to [facility] to meet with staff, Dr. Wyatt, on MondayFebruary 13 09:00-confirmed with patient. ?? Abilio Ruiz RN ?? documented in this encounter Plan of Treatment Upcoming Encounters Date Type Department Care Team (Late st Contact Info) Description 03/18/2024 8:30 AM EST Appointment [place] [address] 03/18/2024 9:30 AM EST Office [place] [address] Hetal Ojeda MD [facility] [place] [address] documented as of this encounter Visit Diagnoses Not on filedocumented in this encounter Care Teams Acute Dialysis Registered Nurse Relationship Specialty Start Date End Date Travis Castaneda MD [address] [place] [address] PCP - General Internal Medicine 10/29/18 09/27/23 documented as of this encounter
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
--- OUTSIDE RECORDS SUMMARY | 2024-02-29 09:02 | XMS_ITS | Encounter Summary ---
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 atelectasis has worsened considerably when compared to the earlier study from 01/18/2019. No effusion. There is a possibility of lung markings in the upper lobes consistent with the presenceof emphysema as seen on the patient's earlier CT scan. Pulmonary Function Tests 01/28/19 A. SPIROMETRY Reveals (Pre Bronchodilator based on FEV1 %predicted) a very sever (<35%) obstructive ventilatory dysfunction (OVD). B. DIFFUSING CAPACITY: The adjusted diffusing capacity (DLCO) for hemoglobin is mildly reduced (>60%- LLN). Causes of reduced DLCO include loss of [...] patient at today's visit was: 10 ppb Assessment: Garret Barros is a 43 y.o. male admitted with acute hypoxic respiratory distress, which could be secondary to several possible pulmonary pathologies. Pulmonary medicine is asked to consult in regards to diagnosis and management of this patient's hypoxemia. Mr. Barros has several lung pathologies that could be contributory to this acute presentation of respiratory distress, including atelectasis, emphysema, multiple calcified granulomas, and a 9 mm uncalcified pulmonary nodule. His PFTs completed yesterday indicate severe obstructive pathology and his DLCO shows reduced diffusion, both consistent with COPD, and chest CT from 01/18 also consistent with COPD. Therefore acute hypoxic respiratory failure secondary to a COPD exacerbation is most likely, and supported by clinical history of change insputum color and volume increased O2 requirement. Recommend continuing treatment with methylprednisolone today and transitioning to prednisone 60 mg PO tomorrow with a 2 week taper. Also continue levofloxacin and supplemental O2 with goal of 88-92% saturation. Discontinue budesonide fometerol whilehospitalized, but continue lipotropism. Additionally, atelectasis and mucus plugging could be contributing, therefore we recommend intermittent positive pressure ventilation. The non-calcified 9 mm pulmonary nodule in left lower lobe will need to be monitored, this could be an early granuloma similar to other calcified granulomas present, or this could be lung cancer with patient is at risk for given smoking history. Recommend follow up CT in 3 months for evaluation of progression, and additionally follow for 2 years. Recommendations: ?? Continue IV Methylprednisolone today, transition to Prednisone 60 mg tomorrow (01/30), and decrease by 10mg every 3 days for a 2 week taper. ?? Continue levofloxacin for 5-10 days pending clinical course. ?? Continue supplemental O2 with goal saturation of 88-92%. ?? Discontinue Budesonide-Fometerol while hospitalized ?? Continue Ipratropium-Albuterol PRN ?? Initiate Intermittent Positive Pressure Ventilation (IPV) with albuterol BID ?? Continue incentive spirometry ?? Follow up CT in 3 months to follow 9mm left lower lobe pulmonary nodule, follow for 2 years Thank you for this consult, we will continue to follow along with you, please do not hesitate to reach out. ?? Maile Champagne MS4, Pager #[phone] Pulmonary & Critical Care Team Pager #[phone] Associated attestation - Kareem Knight MD - 01/30/2019 9:29 AM EDT I have seen the patient and reviewed the medical student's above history and I agree with the details as written. The assessment and plan were formulated in discussion with me and I agree with them as documented. Kareem Knight MD, [facility] Pulmonary and Critical Care 3050 * Patient Refusal of Care - Brittney Rangel RN - 01/29/2019 12:37 PM EDT Patient refusing to have a STAT EKG associated with the chest pain 01/08 that patient reported . Thereason pt gave for this refusal was no reason just said that he is just exhausted. Nursing actions taken during this shift to address patient???s refusal included discussion with patient about why the EKG was ordered and reevaluation of chest pain. Plan to address patient???s refusal include monitoring the patient for pain and origins of pain. * Plan of Care - Skip Carrillo PT - 01/29/2019 11:46 AM EDT Physical Therapy Note PT referral received, chart reviewed, pt seen once off aerosol precautions after nebulizer treatment. He was sleepy, but awake. He reported 9/10 chest pain, RN aware and vitals taken below. PT deferred at this time, will follow up later as appropriate. HR: Heart Rate: (P) (69-72 at rest) BP: BP: (P) 120/65 SpO2: SpO2: (P) (88-90% at rest, sleepy, reported fatigue. ) O2 flow rate: O2 Flow Rate (L/min): (P) 4 L/min O2 Device: O2 Device: (P) Nasal cannula Skip Carrillo PT Beeper# [id number] * Plan of Care - Abi Olvera RN - 01/29/2019 4:55 AM EDT Problem: Patient Care Overview Goal: Plan of Care Review Outcome: Ongoing (Interventions Implemented as Appropriate) 09/2322 Coping/Psychosocial Plan Of Care Reviewed With patient OUTCOME EVALUATION NOTE: OUTCOME SUMMARY: Pt admitted to Rm 266 from ED. Able to transfer self (stand/pivot) to bed. Oriented pt to room and safety precautions. Droplet precautions initiated. Pt A+Ox4. Limited assist with ADLs, transfers, ambulation. Continent of urine in urinal- no BM thisshift. Denies new onset pain or acute distress. On supplemental O2 @ 3L continuous to keep sats >90%. Slept intermittently. PIV patent, dressing c/d/i, insertion site benign. No s/s of IV or medication/fluid related complications. Medications and treatments administered as indicated. All safety precautions maintained. VSS. Compliant with all meds, treatments, assessments, and safety precautions. Will continue to monitor per protocol. 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, lines/tubes, generalized weakness, unfamiliar environment Assistance [level of assistance required for transfers and ambulation]: SBA Supervision [direct monitoring required during toileting and ADLs]: NA- Calls appropriately Surveillance [continuous indirect monitoring]: Bryson purposeful rounding CPG GOAL OUTCOME EVALUATION: Goal: Fall Prevention-Safe Patient Handling Outcome: Ongoing (Interventions Implemented as Appropriate) 01/28/19232201/29/192 01/29/19129 Bañuelos Fall Risk History of Falling -- 0 -- Secondary Diagnosis -- 15 -- Ambulatory Aids -- 15 -- Intravenous Therapy/Heparin/Saline Lock -- 20 -- Gait/Transferring -- 0 -- Mental Status -- 0 -- Score -- 50 -- OTHER Bañuelos Fall Risk -- High -- Restraint Interventions Safety Promotion/Fall Prevention -- -- safety round/check completed Positioning Body Position -- -- independent Activity Activity Type ambulated in room -- -- Activity Assistance Provided independent -- -- Goal: Infection Control Outcome: Ongoing (Interventions Implemented as Appropriate) 01/29/19129 Safety Interventions Isolation Precautions droplet precautions maintained Infection Prevention single patient room provided Problem: COPD, Chronic Bronchitis/Emphysema (Adult) Goal: Signs and Symptoms of Listed Potential Problems Will be Absent, Minimized or Managed (COPD, Chronic Bronchitis/Emphysema) Signs and symptoms of listed potential problems will be absent, minimized or managed by discharge/transition of care (reference COPD, Chronic Bronchitis/Emphysema (Adult) CPG). Outcome: Ongoing (Interventions Implemented as Appropriate) 01/29/19 0435 COPD, Chronic Bronchitis/Emphysema Problems Assessed (COPD, Chronic Bronchitis/Emphysema) all Problems Present (COPD, Chronic Bronchitis/Emphysema) dyspnea;hypoxia/hypoxemia;atelectasis Problem: Pneumonia (Adult) Goal: Signs and Symptoms of Listed Potential Problems Will be Absent, Minimized or Managed (Pneumonia) Signs and symptoms of listed potential problems will be absent, minimized or managed by discharge/transition of care (reference Pneumonia (Adult) CPG). Outcome: Ongoing (Interventions Implemented as Appropriate) 01/29/19 0435 Pneumonia Problems Assessed (Pneumonia) all Problems Present (Pneumonia) none * ED Triage - Taylor Choudhury RN - 01/28/2019 5:24 PM EDT Pt brought from pulmonology clinic when he arrived for a follow up appointment without his regular oxygen and SpO2 in the low 80s. Pt received 1 neb from the bowling ball molder and 1 neb from the [facility] team. Pt is very drowsy. Has to be prompted to answer questions and open his eyes. SpO2 =88 on 2LNC in triage. SpO2=93% on 4LNC. Pt c/o anxiety and state he would like an Ativan to help him. Pt also states that he has 10/10 chest pain at this moment. Reassurance given. Pt drifting off to sleep during conversation. documented in this encounter Plan of Treatment Upcoming Encounters Date Type Department Care Team (Late st Contact Info) Description 03/18/2024 8:30 AM EST Appointment [place] [address] 03/18/2024 9:30 AM EST Office [place] [address] Hetal Ojeda MD [facility] [place] [address] Scheduled Orders Name Type Priority Associated Diagnoses Orde r Schedule EKG 12 Lead ECG STAT Chest pain, unspecified type One Time for 1 Occurrences starting 01/29/2019 until 01/29/2019 documented as of this encounter Procedures Procedure Name Priority Date/Time Associated Diagnosis Comments HEMOGRAM Routine 01/31/2019 5:53 AM EDT DIFFERENTIAL, AUTOMATED Routine 01/31/2019 5:53 AM EDT HC CBC,PLT & AUTO DIFF Routine 01/31/2019 5:53 AM EDT BASIC METABOLIC PANEL Routine 01/31/2019 5:53 AM EDT HEMOGRAM Routine 01/30/2019 6:00 AM EDT DIFFERENTIAL, AUTOMATED Routine 01/30/2019 6:00 AM EDT HC VENIPUNCTURE Routine 01/30/2019 6:00 AM EDT BASIC METABOLIC PANEL Routine 01/30/2019 6:00 AM EDT HC SPUTUM CULTURE Routine 01/29/2019 11: 30 PM EDT HC RESPIRATORY VIRUS PANEL BY PCR Routine 01/29/2019 11:04 AM EDT U TRICYCLICS CONFIRMATION Routine 01/29/2019 8:50 AM EDT RAPID DRUG SCREEN, URINE Routine 01/29/2019 8:50 AM EDT RAPID DRUG SCREEN W/ CONFIRMATION, URINE Routine 01/29/2019 8:50 AM EDT METHADONE, URINE, CONFIRMATION Routine 01/29/2019 8:50 AM EDT THC (MARIJUANA), URINE, CONFIRMATION Routine 01/29/2019 8:50 AM EDT BENZODIAZEPINE, URINE CONFIRMATION Routine 01/29/2019 8:50 AM EDT HEMOGRAM Routine 01/29/2019 5:56 AM EDT DIFFERENTIAL, AUTOMATED Routine 01/29/2019 5:56 AM EDT HC VENIPUNCTURE Routine 01/29/2019 5:56 AM EDT BASIC METABOLIC PANEL Routine 01/29/2019 5:56 AM EDT BLOOD GAS ARTERIAL POC Routine 01/28/2019 11:09 PM EDT BLOOD GAS VENOUS POC Routine 01/28/2019 9:32 PM EDT XR CHEST PA AND LATERAL STAT 01/28/2019 7:40 PM EDT SCAN, PERIPHERAL BLOOD STAT 01/28/2019 6:56 PM EDT HEMOGRAM STAT 01/28/2019 6:56 PM EDT DIFFERENTIAL, AUTOMATED STAT 01/28/2019 6:56 PM EDT GOLD TUBE HOLD STAT 01/28/2019 6:56 PM EDT BLUE TUBE HOLD STAT 01/28/2019 6:56 PM EDT HC CBC,PLT & AUTO DIFF STAT 01/28/2019 6:56 PM EDT HC TROPONIN T STAT 01/28/2019 6:56 PM EDT BASIC METABOLIC PANEL STAT 01/28/2019 6:56 PM EDT EKG 12-LEAD STAT 01/28/2019 5:42 PM EDT documented in this encounter Results * (ABNORMAL) Differential, Automated (01/31/2019 5:53 AM EDT) [facility] Neutrophil % 78.0 % [facility] Neutrophil Absolute 16.93(H) 1.70 - 6.10 x10(3)/mc L [facility] Lymph % 13.3 % [facility] Lymphocytes Abs 2.9 0.9 - 3.2 x10(3)/ L [facility] Monocyte % 6.4 % [facility] Monocyte Abs 1.4(H) 0.3 - 0.9 x10(3)/[facility] Eos % 0.1 % [facility] Eosinophils Abs 0.0 0.0 - 0.4 x10(3)/[facility] Basophil % 0.3 % [facility] Baso Absolute 0.1 0.0 - 0.1 x10(3)/[facility] Immature Gran % 1.90 % [facility] Comment: Immature granulocytes(IG's)percentage and absolute count will include metamyelocytes, myelocytes, and promyelocytes. Blood smears from CBCs yielding IG's will be scanned manually for concordance. If this scan disagrees with the automated IG or if promyelocytes are noted, a manual differential will be performed. Immature Gran Absolute 0.42(H) 0.00 - 0.04 x10(3)/[facility] Blood specimen (specimen) 01/31/2019 5:53 AM EDT 01/31/2019 6:08 AM EDT Narrative Resulting Agency Comment Spec In Lab Sveta Trujillo MD HEMATOLOGY ORDERABLE S [facility] [place] [address] * (ABNORMAL) Hemogram (01/31/2019 5:53 AM EDT) White Blood Cell 21.7(H) 4.0 - 9.5 x10(3)/[facility] Red Blood Cell 4.64 4.58 - 5.54 x10(6)/[facility] Hemoglobin 14.6 13.7 - 16.5 gm/dL [facility] Hematocrit 43.8 40.5 - 48.5 % [facility] Mean Cell Volume 94.4(H) 82.9 - 93.1 fL [facility] Mean Cell Hemoglobin 31.5 27.5 - 32.1 pg [facility] Mean Cell Hemoglobin Concentration 33.3 32.0 - 35.7 gm/dL [facility] Platelet 267 145 - 357 x10(3)/mc L [facility] RDW Standard Deviation 52.2(H) 36.0 - 45.0 fL [facility] RDW coefficient of variation 15.0(H) 11.4 - 13.8 % [facility] Mean Platelet Volume 10.3 7.6 - 12.9 [facility] NRBC% auto 0.0 % [facility] NRBC Absolute 0.000 0.000 - 0.000 x10(3)/mc L [facility] Blood specimen (specimen) 01/31/2019 5:53 AM EDT 01/31/2019 6:08 AM EDT Narrative Resulting Agency Comment Spec In Lab Sveta Trujillo MD HEMATOLOGY ORDERABLE S [facility] [place] [address] * (ABNORMAL) Basic Metabolic Panel (non-fasting) (01/31/2019 5:53 AM EDT) Glucose 96 65 - 199 mg/dL [facility] Comment:Diabetes: >=200 mg/d L plus symptoms Blood Urea Nitrogen 14 10 - 20 mg/dL [facility] Creatinine 0.53(L) 0.80 - 1.50 mg/dL [facility] Sodium 141 135 - 145 mmol/L [facility] Potassium 4.2 3.5 - 5.0 mmol/L [facility] Comment: Please note: ??Patients with WBC >100,000 may have falsely elevated Potassium levels. ??For accurate Potassium quantification in these patients send serum separator tube (gold top) for subsequent determinations. ??Contact the Clinical Chemistry Laboratory if there are any questions. Chloride 101 98 - 107 mmol/L [facility] Carbon Dioxide 32(H) 22 - 31 mmol/L [facility] Anion Gap 8 5 - 15 mmol/L [facility] Calcium 8.9 8.5 - 10.5 mg/dL [facility] Est Glomerular Filtration Rate 128 >=60 mL/min/1. 73 m?? [facility] Comment: The eGFR was calculated using the CKD-EPI equation. As with all creatinine based estimates of kidney function, eGFR values calculated with the CKD-EPI equation are not accurate in patients with acute kidney failure, extremes of body mass or the acutely ill. [email or web address]/[facility] eGFR 148 >=60 mL/min/1. 73 m?? [facility] Comment: The eGFR was calculated using the CKD-EPI equation. As with all creatinine based estimates of kidney function, eGFR values calculated with the CKD-EPI equation are not accurate in patients with acute kidney failure, extremes of body mass or the acutely ill. [email or web address]/[facility] Blood specimen (specimen) 01/31/2019 5:53 AM EDT 01/31/2019 6:09 AM EDT Narrative Resulting Agency Comment Spec In Lab Sveta Trujillo MD CHEMISTRY ORDERABLES [facility] [place] [address] * (ABNORMAL) Differential, Automated (01/30/2019 6:00 AM EDT) Neutrophil % 89.3 % [facility] Neutrophil Absolute 15.10(H) 1.70 - 6.10 x10(3)/mc L [facility] Lymph % 5.6 % [facility] Lymphocytes Abs 0.9 0.9 - 3.2 x10(3)/mc L [facility] Monocyte % 3.6 % [facility] Monocyte Abs 0.6 0.3 - 0.9 x10(3)/[facility] Eos % 0.0 % [facility] Eosinophils Abs 0.0 0.0 - 0.4 x10(3)/[facility] Basophil % 0.1 % [facility] Baso Absolute 0.0 0.0 - 0.1 x10(3)/[facility] Immature Gran % 1.40 % [facility] Comment: Immature granulocytes(IG's)percentage and absolute count will include metamyelocytes, myelocytes, and promyelocytes. Blood smears from CBCs yielding IG's will be scanned manually for concordance. If this scan disagrees with the automated IG or if promyelocytes are noted, a manual differential will be performed. Immature Gran Absolute 0.23(H) 0.00 - 0.04 x10(3)/[facility] Blood specimen (specimen) 01/30/2019 6:00 AM EDT 01/30/2019 6:14 AM EDT Narrative Resulting Agency Comment Spec In Lab Sveta Trujillo MD HEMATOLOGY ORDERABLE S [facility] [place] [address] * (ABNORMAL) Hemogram (01/30/2019 6:00 AM EDT) White Blood Cell 16.9(H) 4.0 - 9.5 x10(3)/[facility] Red Blood Cell 4.68 4.58 - 5.54 x10(6)/[facility] Hemoglobin 14.5 13.7 - 16.5 gm/dL [facility] Hematocrit 43.4 40.5 - 48.5 % [facility] Mean Cell Volume 92.7 82.9 - 93.1 fL [facility] Mean Cell Hemoglobin 31.0 27.5 - 32.1 pg [facility] Mean Cell Hemoglobin Concentration 33.4 32.0 - 35.7 gm/dL [facility] Platelet 255 145 - 357 x10(3)/mc L [facility] RDW Standard Deviation 50.1(H) 36.0 - 45.0 fL [facility] RDW coefficient of variation 14.7(H) 11.4 - 13.8 % [facility] Mean Platelet Volume 10.1 7.6 - 12.9 fL [facility] NRBC% auto 0.0 % [facility] NRBC Absolute 0.000 0.000 - 0.000 x10(3)/mc L [facility] Blood specimen (specimen) 01/30/2019 6:00 AM EDT 01/30/2019 6:14 AM EDT Narrative Resulting Agency Comment Spec In Lab Sveta Trujillo MD HEMATOLOGY ORDERABLE S [facility] [place] [address] * (ABNORMAL) Basic Metabolic Panel (non-fasting) (01/30/2019 6:00 AM EDT) Glucose 164 65 - 199 mg/dL [facility] Comment:Diabetes: >=200 mg/d L plus symptoms Blood Urea Nitrogen 16 10 - 20 mg/dL [facility] Creatinine 0.49(L) 0.80 - 1.50 mg/dL [facility] Sodium 139 135 - 145 mmol/L [facility] Potassium 4.4 3.5 - 5.0 mmol/L [facility] Comment: Please note: ??Patients with WBC >100,000 may have falsely elevated Potassium levels. ??For accurate Potassium quantification in these patients send serum separator tube (gold top) for subsequent determinations. ??Contact the Clinical Chemistry Laboratory if there are any questions. Chloride 100 98 - 107 mmol/L [facility] Carbon Dioxide 27 22 - 31 mmol/L [facility] Anion Gap 12 5 - 15 mmol/L [facility] Calcium 9.0 8.5 - 10.5 mg/dL [facility] Est Glomerular Filtration Rate 132 >=60 mL/min/1. 73 m?? [facility] Comment: The eGFR was calculated using the CKD-EPI equation. As with all creatinine based estimates of kidney function, eGFR values calculated with the CKD-EPI equation are not accurate in patients with acute kidney failure, extremes of body mass or the acutely ill. [email or web address]/[facility] eGFR 153 >=60 mL/min/1. 73 m?? [facility] Comment: The eGFR was calculated using the CKD-EPI equation. As with all creatinine based estimates of kidney function, eGFR values calculated with the CKD-EPI equation are not accurate in patients with acute kidney failure, extremes of body mass or the acutely ill. [email or web address] Blood specimen (specimen) 01/30/2019 6:00 AM EDT 01/30/2019 6:16 AM EDT Narrative Resulting Agency Comment Spec In Lab Sveta Trujillo MD CHEMISTRY ORDERABLES [facility] [place] [id number] * (ABNORMAL) Lower Respiratory Culture Sputum Expectorated (01/29/2019 11:30 PM EDT) Lower Respiratory Culture Many Beta Hemolytic Streptococci, Group B isolated Moderate mixed bacterial morphotypes suggestive of normal upper respiratory bimal including Moderate mixed Gram Negative organisms (A) [facility] Gram Stain Many Neutrophils seen Few squamous epithelial cells seen Many normal upper respiratory bimal (A) [facility] Organism Beta Hemolytic Streptococci, Group B(A) [facility] Sputum specimen (specimen) 01/29/2019 11:30 PM EDT 01/30/2019 7:44 AM EDT Narrative Resulting Agency Comment Spec In Lab Kat Dalton MD MICROBIOLOGY - [place] [address] * Respiratory Panel PCR (01/29/2019 11:04 AM EDT) Respiratory Panel Source [employer] JERK[employer] Swab [facility] Respiratory Panel PCR Negative Negative [facility] Comment: Respiratory Panels are performed on the [employer], using multiplexed PCR nucleic acid detection. ??Negative results do not preclude respiratory infection and should not be used as the sole basis for diagnosis, treatment or other management decisions. Adenovirus Not Detected Not Detected [facility] Coronavirus HKU1 Not Detected Not Detected [facility] Coronavirus NL63 Not Detected Not Detected [facility] Coronavirus 229E Not Detected Not Detected [facility] Coronavirus OC43 Not Detected Not Detected [facility] Human Metapneumovirus Not Detected Not Detected [facility] Human Rhinovirus/Enterov irus Not Detected Not Detected [facility] Influenza A Not Detected Not Detected [facility] Influenza B Not Detected Not Detected [facility] Parainfluenza 1 Not Detected Not Detected [facility] Parainfluenza 2 Not Detected Not Detected [facility] Parainfluenza 3 Not Detected Not Detected [facility] Parainfluenza 4 Not Detected Not Detected [facility] Respiratory Syncytial Virus Not Detected Not Detected [facility] Chlamydophila pneumoniae Not Detected Not Detected [facility] Mycoplasma pneumoniae Not Detected Not Detected [facility] [facility] Nasopharyngeal swab (specimen) 01/29/2019 11:04 AM EDT 01/29/2019 11:55 AM EDT Narrative Resulting Agency Comment Spec In Lab Kat Dalton MD MICROBIOLOGY - GEN ERAL ORDERABLES [facility] [place] [address] * U Tricyclics Confirmation (01/29/2019 8:50 AM EDT) Tricyclics Conf, Urine See scan report [facility] Urine specimen (specimen) 01/29/2019 8:50 AM EDT 01/30/2019 10:25 AM EDT Narrative Resulting Agency Comment Spec In Lab Kat Dalton MD LAB SEND OUT ORDER CJ [facility] [place] [address] * THC (Marijuana), Urine Confirmation (01/29/2019 8:50 AM EDT) U THC Conf Test ? Result ?Flag ??Unit ?? RefValue --- Carboxy-THC Confirmation, U ??Carboxy-THC- by GC/MS ?121 ? ng/mL ??Cutoff: 3.0 ??Carboxy-THC Interpretation ? Positive. ? --ADDITIONAL INFORMATION-------- ?This report is intended for use in clinical monitoring and ?management of patients. ??It is not intended for use in ?employment-relate d testing. ?This test was developed and its performance characteristics ?determined by [facility] in a manner consistent with CLIA ?requirements. This test has not been cleared or approved by ?the U.S. Food and Drug Administration. ?Test Performed by: ?[facility] ?[address] [place] [address] ?Motorcycle Mechanic: Linwood Pryor M.D. Ph.D.; CLIA# [id number] [facility] Urine specimen (specimen) 01/29/2019 8:50 AM EDT 01/30/2019 9:54 AM EDT Narrative Resulting Agency Comment Spec In Lab Kat Dalton MD LAB SEND OUT ORDER CJ [facility] [place] [address] * Methadone, Urine Confirmation (01/29/2019 8:50 AM EDT) U Meth Conf Test ?Result ? Flag ??Unit ?? RefValue ------- Methadone Confirmation, U ??EDDP-by GC-MS ? 85046 ?ng/mL ??Cutoff: 100 ??Methadone-by GC-MS ?05557 ?ng/mL ??Cutoff: 100 ??Methadone Interpretation ?Positive. ? ---ADDITIONAL INFORMATION------- ?This test was developed and its performance characteristics ?determined by [facility] in a manner consistent with CLIA ?requirements. This test has not been cleared or approved by ?the U.S. Food and Drug Administration. ?Test Performed by: ?[facility] ?[address] [place] [address] ?Motorcycle Mechanic: Linwood Pryor M.D. Ph.D.; CLIA# [id number] [facility] Urine specimen (specimen) 01/29/2019 8:50 AM EDT 01/30/2019 9:54 AM EDT Narrative Resulting Agency Comment Spec In Lab Kat Dalton MD URINE ORDERABLES Performing Organization Address City/State/[facility] Co de Phone Number [facility] [place] [address] * Benzodiazepine, Urine Confirmation (01/29/2019 8:50 AM EDT) U Benzo Conf Test ?Result ? Flag ??Unit ?? RefValue ------- Benzodiazepines Confirmation, U ??Nordiazepam-by GC/MS ?Negative ? ng/mL ??Cutoff: 100 ??Oxazepam-by GC/MS ? Negative ? ng/mL ??Cutoff: 100 ??Lorazepam-by GC/MS ?334 ?ng/mL ??Cutoff: 100 ??Temazepam-by GC/MS ?Negative ? ng/mL ??Cutoff: 100 ??EW-Sxpil-Rapcuet nicol-by GC/MS ?Negative ? ng/mL ??Cutoff: 100 ??2-JZ-Ryoxgzgohe- by GC/MS ?399 ?ng/mL ??Cutoff: 100 ??Alpha AB-Kzqrjchhhn-vk GC/MS ?350 ?ng/mL ??Cutoff: 100 ??3-LO-Dnmjvfkktcs am-by GC/MS ? Negative ? ng/mL ??Cutoff: 50 ??Alpha LA-Jgblmfpzo-tx GC/MS ? Negative ? ng/mL ??Cutoff: 100 ??Benzodiazepines Interpretation ?Positive. ? ---ADDITIONAL INFORMATION------- ?This report is intended for use in clinical monitoring and ?management of patients. ??It is not intended for use in ?employment-relat ed testing. ?This test was developed and its performance characteristics ?determined by [facility] in a manner consistent with CLIA ?requirements. This test has not been cleared or approved by ?the U.S. Food and Drug Administration. ?Test Performed by: ?[facility] ?[address] [place] [address] ?Motorcycle Mechanic: Linwood Pryor M.D. Ph.D.; CLIA# [id number] [facility] Urine specimen (specimen) 01/29/2019 8:50 AM EDT 01/30/2019 9:54 AM EDT Narrative Resulting Agency Comment Spec In Lab Kat Dalton MD LAB SEND OUT ORDER CJ [facility] [place] [address] * (ABNORMAL) Rapid Drug Screen w/ Confirmation, Urine (01/29/2019 8:50 AM EDT) Barbiturates Screen, Urine None Detected None Detected [facility] Comment: The barbiturate screen detects barbiturates at concentrations >200 ng/mL. Note: Not all barbiturates cross-react equally with antibody used in this screen. A ? Presumptive Positive? result indicates that the screening result was positive but has not yet been confirmed by a highly-specific method. As with any screen, occasional false positive results from cross-reacting substances may occur. Not for Medico-Legal Purposes. Benzodiazepines Screen, Urine Presumptive Pos(A) None Detected [facility] Comment: The benzodiazepines screen detects benzodiazepines at concentrations >100 ng/mL. Not all benzodiazepines cross-react equally with antibody used in this screen. Due to the low dosage of clonazepam, false negatives may be obtained due to low concentration of clonazepam metabolites. A ? Presumptive Positive? result indicates that the screening result was positive but has not yet been confirmed by a highly-specific method. As with any screen, occasional false positive results from cross-reacting substances may occur. Not for Medico-Legal Purposes. Cocaine Screen, Urine None Detected None Detected [facility] Comment: The cocaine metabolites screen detects benzoylecgonine (Cocaine Metabolite) at concentrations >150 ng/mL. A ? Presumptive Positive? result indicates that the screening result was positive but has not yet been confirmed by a highly-specific method. As with any screen, occasional false positive results from cross-reacting substances may occur. Not for Medico-Legal Purposes. Methadone Metabolites Screen, Urine Presumptive Pos(A) None Detected [facility] Comment: The methadone metabolite screen detects EDDP (major methadone metabolite) at concentrations >100 ng/mL. A ? Presumptive Positive? result indicates that the screening result was positive but has not yet been confirmed by a highly-specific method. As with any screen, occasional false positive results from cross-reacting substances may occur. Not for Medico-Legal Purposes. Opiate Screen, Urine None Detected None Detected [facility] Comment: The opiates screen detects opiates at concentrations >300 ng/mL. Please note that oxycodone, oxymorphone, fentanyl, tramadol, and other synthetic opioids are not detected by the opiate screen. A ? Presumptive Positive? result indicates that the screening result was positive but has not yet been confirmed by a highly-specific method. As with any screen, occasional false positive results from cross-reacting substances may occur. Not for Medico-Legal Purposes. Cannabinoid Screen, Urine Presumptive Pos(A) None Detected [facility] Comment: The marijuana metabolites screen detects the THC metabolite (97-isl-9-carboxy-delta 9-THC) at concentrations >20 ng/mL. A ? Presumptive Positive? result indicates that the screening result was positive but has not yet been confirmed by a highly-specific method. As with any screen, occasional false positive results from cross-reacting substances may occur. Not for Medico-Legal Purposes. Oxycodone Screen, Urine None Detected None Detected [facility] Comment: The oxycodone screen detects oxycodone and oxymorphone at concentrations >100 ng/mL. A ? Presumptive Positive? result indicates that the screening result was positive but has not yet been confirmed by a highly-specific method. As with any screen, occasional false positive results from cross-reacting substances may occur. Not for Medico-Legal Purposes. Buprenorphine Screen, Urine None Detected None Detected [facility] Comment: The buprenorphine screen detects buprenorphine at concentrations >5 ng/mL. A ? Presumptive Positive? result indicates that the screening result was positive but has not yet been confirmed by a highly-specific method. As with any screen, occasional false positive results from cross-reacting substances may occur. Not for Medico-Legal Purposes. Fentanyl Screen, Urine None Detected None Detected [facility] Comment: The fentanyl screen detects fentanyl at concentrations >2 ng/mL. A ? Presumptive Positive? result indicates that the screening result was positive but has not yet been confirmed by a highly-specific method. As with any screen, occasional false positive results from cross-reacting substances may occur. Not for Medico-Legal Purposes. Tricyclics Screen, Urine Presumptive Pos(A) None Detected [facility] Comment: The tricyclics screen detects tricyclic antidepressants at concentrations >150 ng/mL. Not all tricyclics cross-react equally with the antibody used in this screen. A ? Presumptive Positive? result indicates that the screening result was positive but has not yet been confirmed by a highly-specific method. As with any screen, occasional false positive results from cross-reacting substances may occur. Not for Medico-Legal Purposes. Ethanol Screen, Urine None Detected None Detected [facility] Comment:This urine ethanol a ssay detects ethanol at concentrations >/= 100 mg/L. Amphetamines Screen, Urine None Detected None Detected [facility] Comment: The amphetamine screen detects d-amphetamine and d-methamphetamine at concentrations >300 ng/mL. A ? Presumptive Positive? result indicates that the screening result was positive but has not yet been confirmed by a highly-specific method. As with any screen, occasional false positive results from cross-reacting substances may occur. Not for Medico-Legal Purposes. Adulterants Screen, Urine None Detected None Detected [facility] Comment: No adulteration or dilution of this urine sample was detected. All urine samples submitted for urine drugs of abuse analysis are tested for creatinine concentration, pH, and for the presence of oxidants, nitrites, and chromate. Urine specimen (specimen) 01/29/2019 8:50 AM EDT 01/29/2019 9:18 AM EDT Narrative Resulting Agency Comment Spec In Lab Kat Dalton MD CHEMISTRY ORDERABL ES Performing Organization Address [facility] Co de Phone Number [facility] [place] [address] * Rapid Drug Screen, Urine (SUSIE Request) (01/29/2019 8:50 AM EDT) SUSIE Conf Requested Yes [facility] SUSIE Requested See Comment [facility] Comment:Refer to Rapid Drug Screen w/ Confirmation, Urine for results. Urine specimen (specimen) 01/29/2019 8:50 AM EDT 01/29/2019 9:18 AM EDT Narrative Resulting Agency Comment Spec In Lab Kat Dalton MD URINE ORDERABLES Performing Organization Address [facility] de Phone Number [facility] [place] [address] * (ABNORMAL) Differential, Automated (01/29/2019 5:56 AM EDT) Pathologist [facility] Neutrophil % 48.0 % [facility] Neutrophil Absolute 5.07 1.70 - 6.10 x10(3)/mc L [facility] Lymph % 38.5 % [facility] Lymphocytes Abs 4.1(H) 0.9 - 3.2 x10(3)/mc L [facility] Monocyte % 10.1 % [facility] Monocyte Abs 1.1(H) 0.3 - 0.9 x10(3)/mc L [facility] Eos % 2.5 % [facility] Eosinophils Abs 0.3 0.0 - 0.4 x10(3)/mc L [facility] Basophil % 0.4 % [facility] Baso Absolute 0.0 0.0 - 0.1 x10(3)/mc L [facility] Immature Gran % 0.50 % [facility] Comment: Immature granulocytes(IG's)percentage and absolute count will include metamyelocytes, myelocytes, and promyelocytes. Blood smears from CBCs yielding IG's will be scanned manually for concordance. If this scan disagrees with the automated IG or if promyelocytes are noted, a manual differential will be performed. Immature Gran Absolute 0.05(H) 0.00 - 0.04 x10(3)/mc L [facility] Blood specimen (specimen) 01/29/2019 5:56 AM EDT 01/29/2019 6:15 AM EDT Narrative Resulting Agency Comment Spec In Lab Sveta Turjillo MD HEMATOLOGY ORDERABLE S [facility] [place] [address] * (ABNORMAL) Hemogram (01/29/2019 5:56 AM EDT) White Blood Cell 10.6(H) 4.0 - 9.5 x10(3)/mc L [facility] Red Blood Cell 4.30(L) 4.58 - 5.54 x10(6)/mc L [facility] Hemoglobin 13.3(L) 13.7 - 16.5 gm/dL [facility] Hematocrit 40.2(L) 40.5 - 48.5 % [facility] Mean Cell Volume 93.5(H) 82.9 - 93.1 [facility] Mean Cell Hemoglobin 30.9 27.5 - 32.1 pg [facility] Mean Cell Hemoglobin Concentration 33.1 32.0 - 35.7 gm/dL [facility] Platelet 218 145 - 357 x10(3)/mc L [facility] RDW Standard Deviation 52.2(H) 36.0 - 45.0 fL [facility] RDW coefficient of variation 15.2(H) 11.4 - 13.8 % [facility] Mean Platelet Volume 10.0 7.6 - 12.9 fL [facility] NRBC% auto 0.0 % [facility] NRBC Absolute 0.000 0.000 - 0.000 x10(3)/mc L [facility] Blood specimen (specimen) 01/29/2019 5:56 AM EDT 01/29/2019 6:15 AM EDT Narrative Resulting Agency Comment Spec In Lab Sveta Trujillo MD HEMATOLOGY ORDERABLE S [facility] [place] [address] * (ABNORMAL) Basic Metabolic Panel (non-fasting) (01/29/2019 5:56 AM EDT) Glucose 109 65 - 199 mg/dL [facility] Comment:Diabetes: >=200 mg/d L plus symptoms Blood Urea Nitrogen 18 10 - 20 mg/dL [facility] Creatinine 0.62(L) 0.80 - 1.50 mg/dL [facility] Sodium 140 135 - 145 mmol/L [facility] Potassium 4.1 3.5 - 5.0 mmol/L [facility] Comment: Please note: ??Patients with WBC >100,000 may have falsely elevated Potassium levels. ??For accurate Potassium quantification in these patients send serum separator tube (gold top) for subsequent determinations. ??Contact the Clinical Chemistry Laboratory if there are any questions. Chloride 101 98 - 107 mmol/L [facility] Carbon Dioxide 31 22 - 31 mmol/L [facility] Anion Gap 8 5 - 15 mmol/L [facility] Calcium 8.3(L) 8.5 - 10.5 mg/dL [facility] Est Glomerular Filtration Rate 120 >=60 mL/min/1. 73 m?? [facility] Comment: The eGFR was calculated using the CKD-EPI equation. As with all creatinine based estimates of kidney function, eGFR values calculated with the CKD-EPI equation are not accurate in patients with acute kidney failure, extremes of body mass or the acutely ill. [email or web address]/DHMCnkf eGFR 139 >=60 mL/min/1. 73 m?? [facility] Comment: The eGFR was calculated using the CKD-EPI equation. As with all creatinine based estimates of kidney function, eGFR values calculated with the CKD-EPI equation are not accurate in patients with acute kidney failure, extremes of body mass or the acutely ill. [email or web address]/DHnkf Blood specimen (specimen) 01/29/2019 5:56 AM EDT 01/29/2019 6:15 AM EDT Narrative Resulting Agency Comment Spec In Lab Sveta Trujillo MD CHEMISTRY ORDERABLES [facility] [place] [address] * (ABNORMAL) BLOOD GAS 2 ARTERIAL (01/28/2019 11:09 PM EDT) pH, Arterial 7.38 7.35 - 7.45 [facility] PCO2, Arterial 54(H) 35 - 45 mmHg [facility] PO2, Arterial 60(L) 85 - 104 mmHg [facility] Bicarbonate, Arterial 31.7(H) 20.0 - 26.0 mmol/L [facility] Base Excess, Arterial 6.6(H) -3.0 - 3.0 mmol/L [facility] Hgb Blood Gas 14.9 13.7 - 16.5 gm/dL [facility] Oxyhemoglobin, Arterial 88.0(L) 94.0 - 97.0 % [facility] Carboxyhemoglob in, Arterial 2.3 % [facility] Comment: Nonsmokers: 0.5-1.5% COHB Smokers: Variable, but usually less than 10% Toxic: 20-30% COHB Lethal: Greater than 60% COHB Methemoglobin, Arterial 0.2 <=1.5 % [facility] Na Whole Blood 137 135 - 145 mmol/L [facility] K Whole Blood 3.9 3.5 - 5.0 mmol/L [facility] Comment: Please note: Patients with WBC >100,000 may have falsely elevated Potassium levels. Contact the Clinical Chemistry Laboratory if there are any questions. ICa Whole Blood 1.17 1.15 - 1.33 mmol/L [facility] Comment: Note: ??Total bilirubin higher than 20 mg/dL may lead to falsely low ionized calcium. CL Whole Blood 98 98 - 107 mmol/L [facility] Gluc Whole Bld 100 65 - 199 mg/dL [facility] Comment:Diabetes: >=200 mg/d L plus symptoms. Lactate WB 1.4 0.5 - 2.2 mmol/L [facility] Flow Art 3.0 LPM [facility] Blood specimen (specimen) 01/28/2019 11:09 PM EDT 01/28/2019 11:09 PM EDT Gunnar Marino MD POINT OF CARE TEST O RDERABLES [facility] [place] [address] * (ABNORMAL) BLOOD GAS 2 VENOUS (01/28/2019 9:32 PM EDT) pH, Venous 7.39 7.32 - 7.42 [facility] PCO2, Venous 59(H) 41 - 51 mmHg [facility] PO2, Venous 41(H) 25 - 40 mmHg [facility] Bicarbonate, Venous 34.4 mmol/L [facility] Base Excess, Venous 9.4 mmol/L [facility] Hgb Blood Gas 14.7 13.7 - 16.5 gm/dL [facility] Oxyhemoglobin, Venous 73.4 % [facility] Carboxyhemoglob in, Venous 2.8 % [facility] Comment: Nonsmokers: 0.5-1.5% COHB Smokers: Variable, but usually less than 10% Toxic: 20-30% COHB Lethal: Greater than 60% COHB Methemoglobin, Venous 0.3 <=1.5 % [facility] Na Whole Blood 137 135 - 145 mmol/L [facility] K Whole Blood 4.0 3.5 - 5.0 mmol/L [facility] Comment: Please note: Patients with WBC >100,000 may have falsely elevated Potassium levels. Contact the Clinical Chemistry Laboratory if there are any questions. ICa Whole Blood 1.12(L) 1.15 - 1.33 mmol/L [facility] Comment: Note: ??Total bilirubin higher than 20 mg/dL may lead to falsely low ionized calcium. CL Whole Blood 98 98 - 107 mmol/L [facility] Gluc Whole Bld 103 65 - 199 mg/dL [facility] Comment:Diabetes: >=200 mg/d L plus symptoms Lactate WB 1.5 0.5 - 2.2 mmol/L [facility] Blood Gas Source Venous [facility] Blood specimen (specimen) 01/28/2019 9:32 PM EDT 01/28/2019 9:32 PM EDT Gunnar Marino MD POINT OF CARE TEST O RDERABLES [facility] [place] [address] * XR Chest PA & Lateral (Generic) (01/28/2019 7:40 PM EDT) Anatomical Region Laterality Modality Chest N/A Digital Radiogra phy Impressions 01/28/2019 7:45 PM EDT Marked worsening of bilateral lower lobe atelectasis when compared to 01/18/2019. Emphysema. Thank you for letting us participate in the care of this patient. For questions regarding this report, please contact the number below. ? Narrative 01/28/2019 7:45 PM EDT EXAMINATION: XR CHEST PA AND LATERAL (GENERIC) CLINICAL HISTORY: Shortness of breath with COPD/Asthma TECHNIQUE: Frontal and lateral views of the chest COMPARISON: 01/18/2019 FINDINGS: Bibasilar atelectasis has worsened considerably when compared to the earlier study from 01/18/2019. No effusion. There is a possibility of lung markings in the upper lobes consistent with the presence of emphysema as seen on the patient's earlier CT scan. Procedure Note Kenneth Castillo MD - 01/28/2019 EXAMINATION: XR CHEST PA AND LATERAL (GENERIC) CLINICAL HISTORY: Shortness of breath with COPD/Asthma TECHNIQUE: Frontal and lateral views of the chest COMPARISON: 01/18/2019 FINDINGS: Bibasilar atelectasis has worsened considerably when compared to theearlier study from 01/18/2019. No effusion. There is a possibility of lung markings in the upper lobes consistent withthe presence of emphysema as seen on the patient's earlier CT scan. IMPRESSION Marked worsening of bilateral lower lobe atelectasis when compared to01/18/2019. Emphysema. Thank you for letting us participate in the care of this patient. Forquestions regarding this report, please contact the number below. Gunnar Marino MD IMG DX ORDERABLES * Scan, Peripheral Blood (01/28/2019 6:56 PM EDT) Plat estimate Normal [facility] RBC Morphology Abnormal [facility] Macrocyte 1-5 /HPF [facility] Hypochromia Slight [facility] Stippled RBC Present >1/HPF [facility] Blood specimen (specimen) 01/28/2019 6:56 PM EDT 01/28/2019 7:15 PM EDT Narrative Resulting Agency Comment Spec In Lab Eric Luong MD HEMATOLOGY ORDERABLE S Performing Organization Address City/[facility]/ZIP Co de Phone Number [facility] [place] [address] * Gold Tube HOLD (01/28/2019 6:56 PM EDT) Gold Hold Sample in lab. [facility] Blood specimen (specimen) Venous Draw / Unknown 01/28/2019 6:56 PM EDT 01/28/2019 7:18 PM EDT Eric Luong MD CHEMISTRY ORDERABLES Performing Organization Address [facility] Co de Phone Number [facility] [place] [address] * Blue Tube HOLD (01/28/2019 6:56 PM EDT) Blue Hold Sample in lab. [facility] Blood specimen (specimen) Venous Draw / Unknown 01/28/2019 6:56 PM EDT 01/28/2019 7:17 PM EDT Eric Luong MD HEMATOLOGY ORDERABLE S Performing Organization Address City/[facility]/ZIP Co de Phone Number [facility] [place] [address] * (ABNORMAL) Differential, Automated (01/28/2019 6:56 PM EDT) Neutrophil % 62.2 % [facility] Neutrophil Absolute 8.90(H) 1.70 - 6.10 x10(3)/mc L [facility] Lymph % 24.8 % [facility] Lymphocytes Abs 3.6(H) 0.9 - 3.2 x10(3)/ L [facility] Monocyte % 11.7 % [facility] Monocyte Abs 1.7(H) 0.3 - 0.9 x10(3)/[facility] Eos % 0.8 % [facility] Eosinophils Abs 0.1 0.0 - 0.4 x10(3)/[facility] Basophil % 0.2 % [facility] Baso Absolute 0.0 0.0 - 0.1 x10(3)/[facility] Immature Gran % 0.30 % [facility] Comment: Immature granulocytes(IG's)percentage and absolute count will include metamyelocytes, myelocytes, and promyelocytes. Blood smears from CBCs yielding IG's will be scanned manually for concordance. If this scan disagrees with the automated IG or if promyelocytes are noted, a manual differential will be performed. Immature Gran Absolute 0.05(H) 0.00 - 0.04 x10(3)/[facility] Blood specimen (specimen) 01/28/2019 6:56 PM EDT 01/28/2019 7:15 PM EDT Narrative Resulting Agency Comment Spec In Lab Eric Luong MD HEMATOLOGY ORDERABLE S Performing Organization Address City/State/[facility] [facility] Co de Phone Number [facility] [place] [address] * (ABNORMAL) Hemogram (01/28/2019 6:56 PM EDT) White Blood Cell 14.3(H) 4.0 - 9.5 x10(3)/[facility] LABORATORY Red Blood Cell 4.52(L) 4.58 - 5.54 x10(6)/[facility] LABORATORY Hemoglobin 14.0 13.7 - 16.5 gm/dL [facility] Hematocrit 42.2 40.5 - 48.5 % [facility] Mean Cell Volume 93.4(H) 82.9 - 93.1 fL [facility] Mean Cell Hemoglobin 31.0 27.5 - 32.1 pg [facility] Mean Cell Hemoglobin Concentration 33.2 32.0 - 35.7 gm/dL [facility] Platelet 263 145 - 357 x10(3)/mc L [facility] RDW Standard Deviation 52.7(H) 36.0 - 45.0 fL [facility] RDW coefficient of variation 15.3(H) 11.4 - 13.8 % [facility] Mean Platelet Volume 10.3 7.6 - 12.9 fL [facility] NRBC% auto 0.0 % [facility] NRBC Absolute 0.000 0.000 - 0.000 x10(3)/mc L [facility] Blood specimen (specimen) 01/28/2019 6:56 PM EDT 01/28/2019 7:15 PM EDT Narrative Resulting Agency Comment Spec In Lab Eric Luong MD HEMATOLOGY ORDERABLE S [facility] [place] [address] * Troponin (01/28/2019 6:56 PM EDT) Troponin-T <0.01 0.00 - 0.00 ng/mL [facility] Comment: The 99th percentile for Troponin T is less than 0.01 ng/mL, any detectable cTnT concentration using this assay should be considered elevated. According to the third universal definition of myocardial infarction the following criteria with a clinical presentation consistent with acute myocardial ischemia meets the diagnosis for a myocardial infarction (HI). Detection of a rise and/or fall of cTnT, with at least one value greater than the 99th percentile (> or = 0.01) and with at least one of the following ?? Symptoms of ischemia ?? New or presumed new significant TN-[id number] wave (ST-T) changes or new left bundle [...] additional sample may be indicated. Reference: Third [place] Definition of Myocardial Infarction. Journal of the [place] [employer] 2012;60:1581-98 Blood specimen (specimen) 01/28/2019 6:56 PM EDT 01/28/2019 7:15 PM EDT Narrative Resulting Agency Comment Spec In Lab Gunnar Marino MD CHEMISTRY ORDERABLES [facility] [place] [address] * (ABNORMAL) Basic Metabolic Panel (non-fasting) (01/28/2019 6:56 PM EDT) Glucose 105 65 - 199 mg/dL [facility] Comment:Diabetes: >=200 mg/d L plus symptoms Blood Urea Nitrogen 21(H) 10 - 20 mg/dL [facility] Creatinine 0.76(L) 0.80 - 1.50 mg/dL [facility] Sodium 140 135 - 145 mmol/L [facility] Potassium 4.5 3.5 - 5.0 mmol/L [facility] Comment: Please note: ??Patients with WBC >100,000 may have falsely elevated Potassium levels. ??For accurate Potassium quantification in these patients send serum separator tube (gold top) for subsequent determinations. ??Contact the Clinical Chemistry Laboratory if there are any questions. Chloride 98 98 - 107 mmol/L [facility] Carbon Dioxide 33(H) 22 - 31 mmol/L [facility] Anion Gap 9 5 - 15 mmol/L [facility] Calcium 8.6 8.5 - 10.5 mg/dL [facility] Est Glomerular Filtration Rate 110 >=60 mL/min/1. 73 m?? [facility] Comment: The eGFR was calculated using the CKD-EPI equation. As with all creatinine based estimates of kidney function, eGFR values calculated with the CKD-EPI equation are not accurate in patients with acute kidney failure, extremes of body mass or the acutely ill. [email or web address]/DHMCnkf eGFR 128 >=60 mL/min/1. 73 m?? [facility] Comment: The eGFR was calculated using the CKD-EPI equation. As with all creatinine based estimates of kidney function, eGFR values calculated with the CKD-EPI equation are not accurate in patients with acute kidney failure, extremes of body mass or the acutely ill. [email or web address]/DHMCnkf Blood specimen (specimen) 01/28/2019 6:56 PM EDT 01/28/2019 7:15 PM EDT Narrative Resulting Agency Comment Spec In Lab Gunnar Marino MD CHEMISTRY ORDERABLES Performing Organization Address [facility] Co de Phone Number [facility] [place] [address] * EKG 12 Lead (01/28/2019 5:42 PM EDT) Ventricular rate 87 BPM MUSE SYSTEM Atrial Rate 87 BPM MUSE SYSTEM P-R Interval 114 ms MUSE SYSTEM QRS Duration 86 ms MUSE SYSTEM Q-T Interval 376 ms MUSE SYSTEM QTC Calculated (Bezet) 452 ms MUSE SYSTEM Calculated P [place] 43 degrees MUSE SYSTEM Calculated R [place] 70 degrees MUSE SYSTEM Calculated T [place] 59 degrees MUSE SYSTEM INTERPRETATION Normal sinus rhythm Normal ECG When compared with ECG of 18-JAN-2019 16:03, No significant change was found Confirmed by MD JANA, RASHAAD ([id number]) on 01/30/2019 9:34:29 AM MUSE SYSTEM 01/28/2019 5:42 PM EDT 01/30/2019 9:34 AM EDT Gunnar Marino MD ECG ORDERABLES Performing Organization Address City/[facility]/ZIP Co de Phone Number MUSE SYSTEM documented in this encounter Visit Diagnoses Diagnosis COPD with exacerbation Obstructive chronic bronchitis with exacerbation Chest pain, unspecified type COPD exacerbation Obstructive chronic bronchitis with exacerbation COPD exacerbation Obstructive chronic bronchitis with exacerbation documented in this encounter Admitting Diagnoses Diagnosis COPD exacerbation Obstructive chronic bronchitis with exacerbation documented in this encounter Administered Medications Inactive Administered Medications - up to 3 most recent administrations Medication Order MAR Action Action Date Dose Rate Site acetaminophen (TYLENOL) tablet 1,000 mg 1,000 mg, Oral, EVERY 6 HOURS PRN, Starting on Mon01/29/19 at 1158, Until Mon01/31/19 at 1139, Pain, Maximum dose of acetaminophen is 4000 mg from all sources in 24 hours., Routine budesonide-formoterol (SYMBICORT) 160-4.5 mcg/actuation inhaler 2 Inhalation 2 .Inhalation , Inhalation, 2 TIMES DAILY, First dose on Mon01/29/19 at 0100, Until Discontinued, Routine Given 01/29/2019 8:41 AM EDT 2 .Inhalation busPIRone (BUSPAR) tablet 15 mg 15 mg, Oral, 3 TIMES DAILY, First dose on Mon01/29/19 at 0000, Until Discontinued, Routine Given 01/31/2019 8:53 AM EDT 15 mg Given 01/30/2019 8:15 PM EDT 15 mg Given 01/30/2019 2:21 PM EDT 15 mg calcium carbonate (Tums) chewable tablet 1,000 mg 1,000 mg (2 tablet), Oral, 3 TIMES DAILY PRN, Starting on Mon01/28/19 at 2341, Until Mon01/29/19 at 1118, Heartburn, Routine Given 01/29/2019 12:37 AM EDT 1,000 mg docusate sodium (COLACE) capsule 100 mg 100 mg, Oral, 2 TIMES DAILY, First dose on Mon01/29/19 at 0000, Until Discontinued, Routine Given 01/31/2019 8:53 AM EDT 100 mg Given 01/30/2019 8:16 PM EDT 100 mg Given 01/30/2019 8:15 AM EDT 100 mg doxycycline monohydrate (MONODOX) capsule 100 mg 100 mg, Oral, ONCE, 1 dose, On Mon01/28/19 at 2128, STAT, Indication for (Active or Suspected): Pneumonia (Community) Given 01/28/2019 10:19 PM EDT 100 mg doxycycline monohydrate (MONODOX) capsule 100 mg 100 mg, Oral, 2 TIMES DAILY, First dose (after last reorder) on Mon01/29/19 at 1145, Until Discontinued, Routine, Indication for (Active or Suspected): Pneumonia (Community) Given 01/31/2019 8:52 AM EDT 100 mg Given 01/30/2019 8:15 PM EDT 100 mg Given 01/30/2019 8:14 AM EDT 100 mg DULoxetine (CYMBALTA) capsule 60 mg 60 mg, Oral, 2 TIMES DAILY, First dose on Mon01/29/19 at 0000, Until Discontinued, Routine Given 01/31/2019 8:54 AM EDT 60 mg Given 01/30/2019 8:15 PM EDT 60 mg Given 01/30/2019 8:15 AM EDT 60 mg enoxaparin (LOVENOX) injection 40 mg 40 mg, Subcutaneous, NIGHTLY, First dose on Mon01/29/19 at 0000, Until Discontinued, Routine Given 01/30/2019 8:16 PM EDT 40 mg Given 01/29/2019 8:18 PM EDT 40 mg Given 01/29/2019 1:00 AM EDT 40 mg ipratropium-albuterol (COMBIVENT RESPIMAT) inhaler 1 puff 1 puff, Inhalation, EVERY 6 HOURS PRN, Starting on Mon01/28/19 at 2341, Until Arlene 01/31/19 at 1139, Wheezing, Must be primed prior to first administration., Routine Given 01/31/2019 6:04 AM EDT 1 pu ff Given 01/30/2019 8:14 PM EDT 1 puff Given 01/30/2019 3:01 PM EDT 1 puff ipratropium-albuterol (DUONEB) 0.5 mg-3 mg(2.5 mg base)/3 mL nebulizer solution 3 mL 3 mL, Nebulization, EVERY 6 HOURS, 3 doses, First dose on Mon01/28/19 at 1842, Last dose on Mon01/29/19 at 0642, STAT Given 01/28/2019 7:04 PM EDT 3 mLs ipratropium-albuterol (DUONEB) 0.5 mg-3 mg(2.5 mg base)/3 mL nebulizer solution 3 mL 3 mL, Nebulization, EVERY 6 HOURS, First dose on Mon01/29/19 at 0000, Until Discontinued, Routine Given 01/29/2019 5:05 AM EDT 3 mLs Given 01/29/2019 12:46 AM EDT 3 mLs ipratropium-albuterol (DUONEB) 0.5 mg-3 mg(2.5 mg base)/3 mL nebulizer solution 3 mL 3 mL, Nebulization, EVERY 4 HOURS WHILE AWAKE, First dose (after last modification) on Mon01/29/19 at 1015, Until Discontinued, Routine Given 01/31/2019 6:11 AM EDT 3 mLs Given 01/30/2019 5:27 PM EDT 3 mLs Given 01/30/2019 2:21 PM EDT 3 mLs LORazepam (ATIVAN) tablet 1 mg 1 mg, Oral, 2 TIMES DAILY PRN, Starting on Mon01/28/19 at 2341, Until Arlene 01/31/19 at 1139, Anxiety, Routine Given 01/31/2019 6:23 AM EDT 1 mg Given 01/30/2019 3:47 PM EDT 1 mg Given 01/30/2019 9:50 AM EDT 1 mg melatonin tablet 6 mg 6 mg, Oral, NIGHTLY PRN, Starting on Mon01/28/19 at 2341, Until Arlene 01/31/19 at 1139, insomnia, Routine Given 01/29/2019 12:37 AM EDT 6 mg methadone (Dolophine) (10 mg/mL) oral liquid 120 mg 120 mg, Oral, DAILY, First dose on Mon01/29/19 at 0900, Until Discontinued, Liquid methadone should be used to avoid diversion, and a mouth check should be performed after each dose., Routine, Name of patient's Methadone clinic? [facility], Methadone clinic phone: , Date last Methadone dose was given at the Outpatient Clinic? 01/28/2019, Dose of Methadone provided at the clinic? 120mg Given 01/31/2019 8:54 AM EDT 120 mg Given 01/30/2019 8:12 AM EDT 120 mg Given 01/29/2019 8:38 AM EDT 120 mg methylPREDNISolone sodium succinate (PF) (SOLU-Medrol) injection 40 mg 40 mg, Intravenous, 2 TIMES DAILY, First dose on Mon01/29/19 at 0900, Until Discontinued Given 01/29/2019 8:40 AM EDT 4 0 mg methylPREDNISolone sodium succinate (PF) (SOLU-Medrol) injection 40 mg 40 mg, Intravenous, EVERY 6 HOURS, First dose (after last modification) on Mon01/29/19 at 1445, Until Discontinued Given 01/30/2019 8:15 AM EDT 40 mg Given 01/30/2019 2:35 AM EDT 40 mg Given 01/29/2019 8:19 PM EDT 40 mg nicotine (NICODERM CQ) 21 mg/24 hr patch 21 mg 21 mg (1 patch), Transdermal, DAILY, First dose on Mon01/29/19 at 1530, Until Discontinued, Routine Patch Applied 01/31/2019 8:54 AM EDT 21 mg 09- Arm Upper (Left) Patch Applied 01/30/2019 8:21 AM EDT 21 mg 10- Arm Upper (Right) Patch Applied 01/29/2019 3:15 PM EDT 21 mg 09- Arm Upper (Left) nicotine (NICODERM CQ) 21 mg/24 hr patch Patch Removal Transdermal, DAILY, First dose on Mon01/30/19 at 0900, Until Discontinued, Remove nicotine 21 mg/24 hr patch nicotine (NICODERM CQ) 21 mg/24 hr patch Patch Verification Transdermal, 2 TIMES DAILY, First dose on Mon01/30/19 at 0900, Until Discontinued, Verify nicotine 21 mg/24 hr patch predniSONE (DELTASONE) tablet 60 mg 60 mg, Oral, DAILY, First dose on Mon01/30/19 at 1500, Until Discontinued, Routine Given 01/31/2019 8:53 AM EDT 60 mg Given 01/30/2019 2:23 PM EDT 60 mg pregabalin (LYRICA) capsule 200 mg 200 mg, Oral, 2 TIMES DAILY, First dose on Mon01/29/19 at 0000, Until Discontinued, Routine Given 01/30/2019 8:14 AM EDT 200 mg Given 01/29/2019 8:19 PM EDT 200 mg Given 01/29/2019 8:40 AM EDT 200 mg pregabalin (LYRICA) capsule 200 mg 200 mg, Oral, 3 TIMES DAILY, First dose (after last modification) on Mon01/30/19 at 1400, Until Discontinued, Routine Given 01/31/2019 8:53 AM EDT 200 mg Given 01/30/2019 8:14 PM EDT 200 mg Given 01/30/2019 2:21 PM EDT 200 mg QUEtiapine (SEROquel) tablet 300 mg 300 mg, Oral, NIGHTLY, First dose (after last modification) on Mon01/29/19 at 0045, Until Discontinued, Routine Given 01/30/2019 8:13 PM EDT 300 mg Given 01/29/2019 8:19 PM EDT 300 mg Given 01/29/2019 12:34 AM EDT 300 mg sodium chloride 0.9 % (flush) flush 5 mL 5 mL, Intravenous, 2 TIMES DAILY, First dose on Mon01/29/19 at 0000, Until Discontinued, Routine Given 01/31/2019 9:01 AM EDT 5 mLs Given 01/30/2019 8:16 PM EDT 5 mLs Given 01/30/2019 8:15 AM EDT 10 mLs documented in this encounter Active and Recently Administered Medications Times are shown in EDT. Scheduled Medication Order 01/29/2019 01/30/2019 01/31/2019 budesonide-formoterol (SYMBICORT) 160-4.5 mcg/actuation inhaler 2 Inhalation (CANCELED) 2 .Inhalation , Inhalation, 2 TIMES DAILY, First dose on Mon01/29/19 at 0100, Until Discontinued, Routine 0100 (Not Given - Provider: Abi Olvera RN - Reason: Medication not available)0841 (Given - Provider: Brittney Rangel RN) busPIRone (BUSPAR) tablet 15 mg 15 mg, Oral, 3 TIMES DAILY, First dose on Mon01/29/19 at 0000, Until Discontinued, Routine 0035 (Given - Provider: Abi Olvera RN)0840 (Given - Provider: Brittney Rangel RN)1456 (Given - Provider: Maya Bush RN)2018 (Given - Provider: Geo Metz RN) 0814 (Given - Provider: Andrews Ruggiero, CHRISTINE)1421 (Given - Provider: Andrews Ruggiero, CHRISTINE)2014 (Given - Provider: Abi Olvera RN) 0853 (Given - Provider: Tita Fitzpatrick RN) docusate sodium (COLACE) capsule 100 mg 100 mg, Oral, 2 TIMES DAILY, First dose on Mon01/29/19 at 0000, Until Discontinued, Routine 0037 (Given - Provider: Abi Olvera RN)0841 (Given - Provider: Brittney Rangel RN)2100 (Not Given - Provider: Geo Metz RN - Reason: Patient/family refused) 0815 (Given - Provider: Andrews Ruggiero, CHRISTINE)2016 (Given - Provider: Abi Olvera RN) 0853 (Given - Provider: Tita Fitzpatrick, CHRISTINE) doxycycline monohydrate (MONODOX) capsule 100 mg 100 mg, Oral, 2 TIMES DAILY, First dose (after last reorder) on Mon01/29/19 at 1145, Until Discontinued, Routine, Indication for (Active or Suspected): Pneumonia (Community) 1328 (Given - Provider: Brittney Rangel RN - Comment: recent arrival from pharmacy)2018 (Given - Provider: Geo Metz RN) 0814 (Given - Provider: Andrews Ruggiero, CHRISTINE)2014 (Given - Provider: Abi Olvera RN) 0852 (Given - Provider: Tita Fitzpatrick, CHRISTINE) DULoxetine (CYMBALTA) capsule 60 mg 60 mg, Oral, 2 TIMES DAILY, First dose on Mon01/29/19 at 0000, Until Discontinued, Routine 0037 (Given - Provider: Abi Olvera RN)0841 (Given - Provider: Brittney Rangel RN)2018 (Given - Provider: Geo Metz RN) 0815 (Given - Provider: Andrews Ruggiero, CHRISTINE)2014 (Given - Provider: Abi Olvera RN) 0854 (Given - Provider: Tiat Fitzpatrick, CHRISTINE) enoxaparin (LOVENOX) injection 40 mg 40 mg, Subcutaneous, NIGHTLY, First dose on Mon01/29/19 at 0000, Until Discontinued, Routine 0100 (Given - Provider: Abi Olvera RN)2018 (Given - Provider: Geo Metz, CHRISTINE) 2016 (Given - Provider: Abi Olvera RN) ipratropium-albuterol (DUONEB) 0.5 mg-3 mg(2.5 mg base)/3 mL nebulizer solution 3 mL (CANCELED) 3 mL, Nebulization, EVERY 6 HOURS, First dose on Mon01/29/19 at 0000, Until Discontinued, Routine 0046 (Given - Provider: Abi Olvera RN)0505 (Given - Provider: Abi Olvera RN) ipratropium-albuterol (DUONEB) 0.5 mg-3 mg(2.5 mg base)/3 mL nebulizer solution 3 mL 3 mL, Nebulization, EVERY 4 HOURS WHILE AWAKE, First dose (after last modification) on Mon01/29/19 at 1015, Until Discontinued, Routine 1102 (Given - Provider: Brittney Rangel RN)1456 (Not Given - Provider: Maya Bush RN - Reason: Patient/family refused)1800 (Not Given - Provider: Brittney Rangel RN - Reason: Patient/family refused)2200 (Not Given - Provider: Venice Montalvo RN - Reason: Patient/family refused) 0600 (Given - Provider: Venice Montalvo RN - Comment: patient sleeping)0950 (Given - Provider: Andrews Ruggiero RN)1421 (Given - Provider: Andrews Ruggiero RN)1727 (Given - Provider: Andrews Ruggiero RN)2200 (Not Given - Provider: Abi Olvera RN - Reason: Patient/family refused) 0611 (Given - Provider: Abi Olvera RN) methadone (Dolophine) (10 mg/mL) oral liquid 120 mg 120 mg, Oral, DAILY, First dose on Mon01/29/19 at 0900, Until Discontinued, Liquid methadone should be used to avoid diversion, and a mouth check should be performed after each dose., Routine, Name of patient's Methadone clinic? [facility] Methadone clinic phone: , Date last Methadone dose was given at the Outpatient Clinic? 01/28/2019, Dose of Methadone provided at the clinic? 120mg 0838 (Given - Provider: Brittney Rangel RN) 0812 (Given - Provider: Andrews Ruggiero RN) 0854 (Given - Provider: Tita Fitzpatrick RN) methylPREDNISolone sodium succinate (PF) (SOLU-Medrol) injection 40 mg (CANCELED) 40 mg, Intravenous, 2 TIMES DAILY, First dose on Mon01/29/19 at 0900, Until Discontinued 0840 (Given - Provider: Brittney Rangel RN) methylPREDNISolone sodium succinate (PF) (SOLU-Medrol) injection 40 mg (CANCELED) 40 mg, Intravenous, EVERY 6 HOURS, First dose (after last modification) on Mon01/29/19 at 1445, Until Discontinued 1456 (Given - Provider: Maya Bush RN)2019 (Given - Provider: Geo Metz RN) 0235 (Given - Provider: Venice Montalvo RN)0815 (Given - Provider: Andrews Ruggiero RN) nicotine (NICODERM CQ) 21 mg/24 hr patch 21 mg(Linked Group 1) 21 mg (1 patch), Transdermal, DAILY, First dose on Mon01/29/19 at 1530, Until Discontinued, Routine 1515 (Patch Applied - Provider: Maya Bush RN) 0821 (Patch Applied - Provider: Andrews Ruggiero RN) 0854 (Patch Applied - Provider: Tita Fitzpatrick, CHRISTINE) nicotine (NICODERM CQ) 21 mg/24 hr patch Patch Removal(Linked Group 1) Transdermal, DAILY, First dose on Mon01/30/19 at 0900, Until Discontinued, Remove nicotine 21 mg/24 hr patch 0820 (Patch Removed - Provider: Andrews Ruggiero RN) 0900 (Patch Removed - Provider: Tita Fitzpatrick RN) nicotine (NICODERM CQ) 21 mg/24 hr patch Patch Verification(Linked Group 1) Transdermal, 2 TIMES DAILY, First dose on Mon01/30/19 at 0900, Until Discontinued, Verify nicotine 21 mg/24 hr patch 0823 (Patch (dose and location) verified - Provider: Andrews Ruggiero RN)2100 (Patch (dose and location) verified - Provider: Abi Olvera RN) 0900 (Patch (dose and location) verified - Provider: Tita Fitzpatrick, CHRISTINE) predniSONE (DELTASONE) tablet 60 mg 60 mg, Oral, DAILY, First dose on Mon01/30/19 at 1500, Until Discontinued, Routine 1423 (Given - Provider: Andrews Ruggiero RN) 0853 (Given - Provider: Tita Fitzpatrick RN) pregabalin (LYRICA) capsule 200 mg (CANCELED) 200 mg, Oral, 2 TIMES DAILY, First dose on Mon01/29/19 at 0000, Until Discontinued, Routine 0046 (Given - Provider: Abi Olvera RN)0840 (Given - Provider: Brittney Rangel, RN)2018 (Given - Provider: Geo Metz, CHRISTINE) 0814 (Given - Provider: Andrews Ruggiero, CHRISTINE) pregabalin (LYRICA) capsule 200 mg 200 mg, Oral, 3 TIMES DAILY, First dose (after last modification) on Mon01/30/19 at 1400, Until Discontinued, Routine 1421 (Given - Provider: Andrews Ruggiero, CHRISTINE)2013 (Given - Provider: Abi Olvera RN) 0853 (Given - Provider: Tita Fitzpatrick, CHRISTINE) QUEtiapine (SEROquel) tablet 300 mg 300 mg, Oral, NIGHTLY, First dose (after last modification) on Mon01/29/19 at 0045, Until Discontinued, Routine 0034 (Given - Provider: Abi Olvera RN)2018 (Given - Provider: Geo Metz RN) 2012 (Given - Provider: Abi Olvera RN) sodium chloride 0.9 % (flush) flush 5 mL 5 mL, Intravenous, 2 TIMES DAILY, First dose on Mon01/29/19 at 0000, Until Discontinued, Routine 0101 (Given - Provider: Abi Olvera RN)0820 (Given - Provider: Brittney Rangel RN)2019 (Given - Provider: Geo Metz RN) 0815 (Given - Provider: Andrews Ruggiero, CHRISTINE)2016 (Given - Provider: Abi Olvera RN) 0901 (Given - Provider: Tita Fitzpatrick, CHRISTINE) PRN Medication Order 01/29/2019 01/30/2019 01/31/2019 acetaminophen (TYLENOL) tablet 1,000 mg 1,000 mg, Oral, EVERY 6 HOURS PRN, Starting on Mon01/29/19 at 1158, Until Arlene 01/31/19 at 1139, Pain, Maximum dose of acetaminophen is 4000 mg from all sources in 24 hours., Routine calcium carbonate (Tums) chewable tablet 1,000 mg (CANCELED) 1,000 mg (2 tablet), Oral, 3 TIMES DAILY PRN, Starting on Mon01/28/19 at 2341, Until Mon01/29/19 at 1118, Heartburn, Routine 0037 (Given - Provider: Abi Olvera RN) docusate sodium (COLACE) capsule 100 mg 100 mg, Oral, DAILY PRN, Starting on Mon01/28/19 at 2341, Until Arlene 01/31/19 at 1139, Constipation, Routine ipratropium-albuterol (COMBIVENT RESPIMAT) inhaler 1 puff 1 puff, Inhalation, EVERY 6 HOURS PRN, Starting on Mon01/28/19 at 2341, Until Arlene 01/31/19 at 1139, Wheezing, Must be primed prior to first administration., Routine 0100 (Given - Provider: Abi Olvera RN)0903 (Given - Provider: Brittney Rangel RN)1502 (Given - Provider: Maya Bush RN) 1501 (Given - Provider: Andrews Ruggiero RN)2014 (Given - Provider: Abi Olvera RN) 0604 (Given - Provider: Abi Olvera RN) lidocaine (XYLOCAINE) 10 mg/mL (1 %) injection 3 mg 3 mg (0.3 mL), Subcutaneous, ONCE PRN, 1 dose, Starting on Mon01/28/19 at 2341, Until Arlene 01/31/19 at 1139, for discomfort with PIV insertion, Routine LORazepam (ATIVAN) tablet 1 mg 1 mg, Oral, 2 TIMES DAILY PRN, Starting on Mon01/28/19 at 2341, Until Arlene 10 at 1139, Anxiety, Routine 0505 (Given - Provider: Abi Olvera RN)1519 (Given - Provider: Maya Bush RN) 0608 (Given - Provider: Venice Montalvo RN)0950 (Given - Provider: Andrews Ruggiero, CHRISTINE)1547 (Given - Provider: Andrews Ruggiero RN - Comment: per MD figueroa to give now) 0623 (Given - Provider: Abi Olvera RN) melatonin tablet 6 mg 6 mg, Oral, NIGHTLY PRN, Starting on Mon01/28/19 at 2341, Until Arlene 01/31/19 at 1139, insomnia, Routine 0037 (Given - Provider: Abi Olvera RN) sodium chloride 0.9 % (flush) flush 5-20 mL 5-20 mL, Intravenous, EVERY 1 MIN PRN, Starting on 01/28/19 at 2341, Until Arlene 01/31/19 at 1139, flush, Flush pertains to all indwelling lines. Flush per protocol found in the job aid using the link provided on this medication record., Routine Linked Groups Order Group 1: nicotine (NICODERM CQ) 21 mg/24 hr patch 21 mgJump to med 21 mg (1 patch), Transdermal, DAILY, First dose on Mon01/29/19 at 1530, Until Discontinued, Routine And nicotine (NICODERM CQ) 21 mg/24 hr patch Patch VerificationJump to med Transdermal, 2 TIMES DAILY, First dose on Mon01/30/19 at 0900, Until Discontinued, Verify nicotine 21 mg/24 hr patch And nicotine (NICODERM CQ) 21 mg/24 hr patch Patch RemovalJump to med Transdermal, DAILY, First dose on Mon01/30/19 at 0900, Until Discontinued, Remove nicotine 21 mg/24 hr patch documented in this encounter Care Teams [facility] Relationship Specialty Start Date End Date Travis Castaneda MD [address] [place] [address] PCP - General Internal Medicine 10/29/18 09/27/23 documented as of this encounter
--- OUTSIDE RECORDS SUMMARY | 2024-02-29 09:02 | XMS_ITS | Encounter Summary ---
Author Organization [facility] Address [facility] [place] [address] Care Team Providers Care [employer] Name Role Phone Travis Castaneda MD Primary Care Provider [phone] Encounter Details Date Type Department Care Team (Late st Contact Info) Description 06/26/2019 Ancillary Procedure Radiology Library at [facility] [place] [phone] Travis Castaneda MD [address] [place], [place] [id number] Social History Tobacco Use Types Packs/Day Years [...] 03/18/2024 8:30 AM EST [place] [phone] 03/18/2024 9:30 AM EST [place] [phone] Hetal Ojeda MD [facility] PULMONARY MEDICINE [place], [place] [id number] documented as of this encounter Procedures Procedure Name Priority Date/Time Associated Diagnosis Comments FILM LIBRARY STORAGE ONLY DX CHEST Routine 06/26/2019 12:00 AM EST documented in this encounter Results * Film Library- Storage Only DX Chest (06/26/2019 12:00 AM EST) Narrative [facility] - 04/01/2020 10:02 AM EST This exam is auto-finalizing. It's purpose is for storage only. Travis Castaneda MD IMG FILM LIBRARY ORD ERABLES Performing Organization Address City/State/[facility] Co de Phone Number [place], [place] documented in this encounter Visit Diagnoses Not on filedocumented in this encounter Care Teams [employer] Relationship Specialty Start Date End Date Travis Castaneda MD [address] [place] [address] PCP - General Internal Medicine 10/29/18 09/27/23 documented as of this encounter
--- OUTSIDE RECORDS SUMMARY | 2024-02-29 09:02 | XMS_ITS | Encounter Summary ---
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 Patient was started on Vancomycin, Flagyl, and Levaquin for likely COPD exacerbation/ pneumonia. Hospitalist team was consulted for possible admission. Hospitalist agrees about admission of the patient. The results of tests as well as plan of care was discussed with patient and the patient is agreeable. Consultations: Internal Medicine consulted. Treatment options were discussed and plan of care agreed upon. Disposition: Admitted to Floor the case was discussed with the admitting physician. * ED Triage - Jacoby Cheney RN - 01/18/2019 3:53 PM EDT Pt arrives ambulatory sent by [facility] reporting dyspnea with retrosternal chest pressure x2 weeks. Pt very anxious, mottled skin, requires deep breaths and frequently coughs. Pt speaking in clear, logical and full sentences. Alert & oriented x4 documented in this encounter Plan of Treatment Upcoming Encounters Date Type Department Care Team (Late st Contact Info) Description 03/18/2024 8:30 AM EST [place]ment [place] [address] 03/18/2024 9:30 AM EST [place] [address] Hetal Ojeda MD [facility] [place] [address] Scheduled Referrals Name Type Priority Associated Diagnoses Order Schedule Referral to Infectious Disease and International Health Outpatient Referral Routine Chronic hepatitis C without hepatic coma Ordered: 01/22/2019 documented as of this encounter Procedures Procedure Name Priority Date/Time Associated Diagnosis Comments HC MYCOBACTERIA CULTURE Routine 01/21/2019 8:39 AM EDT HEMOGRAM Routine 01/21/2019 4:32 AM EDT DIFFERENTIAL, AUTOMATED Routine 01/21/2019 4:32 AM EDT HC VENIPUNCTURE Routine 01/21/2019 4:32 AM EDT BASIC METABOLIC PANEL Routine 01/21/2019 4:32 AM EDT HC MYCOBACTERIA CULTURE Routine 01/20/2019 4:38 PM EDT HEMOGRAM Routine 01/20/2019 6:35 AM EDT DIFFERENTIAL, AUTOMATED Routine 01/20/2019 6:35 AM EDT HC VENIPUNCTURE Routine 01/20/2019 6:35 AM EDT HEPATIC FUNCTION PANEL Routine 01/20/2019 6:35 AM EDT BASIC METABOLIC PANEL Routine 01/20/2019 6:35 AM EDT HC MYCOBACTERIA CULTURE Routine 01/19/2019 11:05 PM EDT XM. TUBERCULOSIS COMPLEX/RIFAMPIN PCR Routine 01/19/2019 11:05 PM EDT AFB CULTURE Routine 01/19/2019 11:05 PM EDT HC SPUTUM CULTURE Routine 01/19/2019 11: [address] CHEST PULMONARY EMBOLISM W CONTRAST Routine 01/19/2019 3:15 PM EDT HC INFLUENZA A/B & RSV BY PCR STAT 01/19/2019 9:32 AM EDT HEMOGRAM Routine 01/19/2019 8:24 AM EDT DIFFERENTIAL, AUTOMATED Routine 01/19/2019 8:24 AM EDT HC VENIPUNCTURE Routine 01/19/2019 8:24 AM EDT BASIC METABOLIC PANEL Routine 01/19/2019 8:24 AM EDT HEMOGRAM STAT 01/18/2019 4:55 PM EDT DIFFERENTIAL, AUTOMATED STAT 01/18/2019 4:55 PM EDT D-DIMER, QUANTITATIVE STAT 01/18/2019 4:55 PM EDT GOLD TUBE HOLD STAT 01/18/2019 4:55 PM EDT BLUE TUBE HOLD STAT 01/18/2019 4:55 PM EDT HIV SCREEN, 4TH GENERATION [place] STAT 01/18/2019 4:55 PM EDT HC CBC,PLT & AUTO DIFF STAT 01/18/2019 4:55 PM EDT HC TROPONIN T STAT 01/18/2019 4:55 PM EDT BASIC METABOLIC PANEL STAT 01/18/2019 4:55 PM EDT XR CHEST PA AND LATERAL STAT 01/18/2019 4:05 PM EDT EKG 12-LEAD STAT 01/18/2019 4:03 PM EDT documented in this encounter Results * AFB culture Sputum Expectorated (01/21/2019 8:39 AM EDT) Acid Fast Bacilli Culture No Acid Fast Bacilli isolated If active tuberculosis is suspected, the patient should be on AIRBORNE PRECAUTIONS. Call Infection Prevention for assistance if needed. [facility] Acid Fast Stain No Acid Fast Bacilli seen [facility] Sputum specimen (specimen) 01/21/2019 8:39 AM EDT 01/21/2019 8:58 AM EDT Narrative Resulting Agency Comment Spec In Lab Anjum Maier MD MICROBIOLOGY - GENER AL ORDERABLES [facility] [place] [address] * (ABNORMAL) Differential, Automated (01/21/2019 4:32 AM EDT) Neutrophil % 89.6 % [facility] Neutrophil Absolute 14.28(H) 1.70 - 6.10 x10(3)/mc L [facility] Lymph % 5.9 % [facility] Lymphocytes Abs 0.9 0.9 - 3.2 x10(3)/mc L [facility] Monocyte % 3.6 % [facility] Monocyte Abs 0.6 0.3 - 0.9 x10(3)/mc L [facility] Eos % 0.0 % [facility] Eosinophils Abs 0.0 0.0 - 0.4 x10(3)/mc L [facility] Basophil % 0.1 % [facility] Baso Absolute 0.0 0.0 - 0.1 x10(3)/mc L [facility] Immature Gran % 0.80 % [facility] Comment: Immature granulocytes(IG's)percentage and absolute count will include metamyelocytes, myelocytes, and promyelocytes. Blood smears from CBCs yielding IG's will be scanned manually for concordance. If this scan disagrees with the automated IG or if promyelocytes are noted, a manual differential will be performed. Immature Gran Absolute 0.13(H) 0.00 - 0.04 x10(3)/ L [facility] Blood specimen (specimen) 01/21/2019 4:32 AM EDT 01/21/2019 4:53 AM EDT Narrative Resulting Agency Comment Spec In Lab Js Alonzo MD HEMATOLOGY ORDERABLE S [facility] [place] [address] * (ABNORMAL) Hemogram (01/21/2019 4:32 AM EDT) White Blood Cell 16.0(H) 4.0 - 9.5 x10(3)/[facility] Red Blood Cell 5.03 4.58 - 5.54 x10(6)/[facility] Hemoglobin 15.5 13.7 - 16.5 gm/dL [facility] Hematocrit 47.3 40.5 - 48.5 % [facility] Mean Cell Volume 94.0(H) 82.9 - 93.1 [facility] Mean Cell Hemoglobin 30.8 27.5 - 32.1 pg [facility] Mean Cell Hemoglobin Concentration 32.8 32.0 - 35.7 gm/dL [facility] Platelet 205 145 - 357 x10(3)/[facility] RDW Standard Deviation 47.9(H) 36.0 - 45.0 [facility] RDW coefficient of variation 13.9(H) 11.4 - 13.8 % [facility] Mean Platelet Volume 10.4 7.6 - 12.9 [facility] NRBC% auto 0.0 % [facility] NRBC Absolute 0.000 0.000 - 0.000 x10(3)/ L [facility] Blood specimen (specimen) 01/21/2019 4:32 AM EDT 01/21/2019 4:53 AM EDT Narrative Resulting Agency Comment Spec In Lab Js Alonzo MD HEMATOLOGY ORDERABLE S [facility] [place] [address] * (ABNORMAL) Basic Metabolic Panel (non-fasting) (01/21/2019 4:32 AM EDT) Glucose 142 65 - 199 mg/dL [facility] Comment:Diabetes: >=200 mg/d L plus symptoms Blood Urea Nitrogen 15 10 - 20 mg/dL [facility] Creatinine 0.57(L) 0.80 - 1.50 mg/dL [facility] Sodium 141 135 - 145 mmol/L [facility] Potassium 4.0 3.5 - 5.0 mmol/L [facility] Comment: Please note: ??Patients with WBC >100,000 may have falsely elevated Potassium levels. ??For accurate Potassium quantification in these patients send serum separator tube (gold top) for subsequent determinations. ??Contact the Clinical Chemistry Laboratory if there are any questions. Chloride 101 98 - 107 mmol/L [facility] Carbon Dioxide 30 22 - 31 mmol/L [facility] Anion Gap 10 5 - 15 mmol/L [facility] Calcium 8.9 8.5 - 10.5 mg/dL [facility] Est Glomerular Filtration Rate 124 >=60 mL/min/1. 73 m?? [facility] Comment: The eGFR was calculated using the CKD-EPI equation. As with all creatinine based estimates of kidney function, eGFR values calculated with the CKD-EPI equation are not accurate in patients with acute kidney failure, extremes of body mass or the acutely ill. [email or web address] eGFR 144 >=60 mL/min/1. 73 m?? [facility] Comment: The eGFR was calculated using the CKD-EPI equation. As with all creatinine based estimates of kidney function, eGFR values calculated with the CKD-EPI equation are not accurate in patients with acute kidney failure, extremes of body mass or the acutely ill. [email or web address] Blood specimen (specimen) 01/21/2019 4:32 AM EDT 01/21/2019 4:53 AM EDT Narrative Resulting Agency Comment Spec In Lab Js Alonzo MD CHEMISTRY ORDERABLES Performing Organization Address [facility] Co de Phone Number [facility] [place] [address] * AFB culture Sputum Expectorated (01/20/2019 4:38 PM EDT) Acid Fast Bacilli Culture No Acid Fast Bacilli isolated If active tuberculosis is suspected, the patient should be on AIRBORNE PRECAUTIONS. Call Infection Prevention for assistance if needed. [facility] Acid Fast Stain No Acid Fast Bacilli seen [facility] Sputum specimen (specimen) 01/20/2019 4:38 PM EDT 01/20/2019 5:12 PM EDT Narrative Resulting Agency Comment Spec In Lab Anjum Maier MD MICROBIOLOGY - GENER AL ORDERABLES Performing Organization Address [facility] de Phone Number [facility] [place] [address] * (ABNORMAL) Differential, Automated (01/20/2019 6:35 AM EDT) Neutrophil % 89.4 % [facility] Neutrophil Absolute 17.88(H) 1.70 - 6.10 x10(3)/mc L [facility] Lymph % 5.8 % [facility] Lymphocytes Abs 1.2 0.9 - 3.2 x10(3)/mc L [facility] Monocyte % 4.1 % [facility] Monocyte Abs 0.8 0.3 - 0.9 x10(3)/mc L [facility] Eos % 0.0 % [facility] Eosinophils Abs 0.0 0.0 - 0.4 x10(3)/[facility] Basophil % 0.1 % [facility] Baso Absolute 0.0 0.0 - 0.1 x10(3)/[facility] Immature Gran % 0.60 % [facility] Comment: Immature granulocytes(IG's)percentage and absolute count will include metamyelocytes, myelocytes, and promyelocytes. Blood smears from CBCs yielding IG's will be scanned manually for concordance. If this scan disagrees with the automated IG or if promyelocytes are noted, a manual differential will be performed. Immature Gran Absolute 0.11(H) 0.00 - 0.04 x10(3)/[facility] Blood specimen (specimen) 01/20/2019 6:35 AM EDT 01/20/2019 6:48 AM EDT Narrative Resulting Agency Comment Spec In Lab Js Alonzo MD HEMATOLOGY ORDERABLE S [facility] [place] [address] * (ABNORMAL) Hemogram (01/20/2019 6:35 AM EDT) White Blood Cell 20.0(H) 4.0 - 9.5 x10(3)/[facility] Red Blood Cell 5.05 4.58 - 5.54 x10(6)/[facility] Hemoglobin 15.7 13.7 - 16.5 gm/dL [facility] Hematocrit 46.4 40.5 - 48.5 % [facility] Mean Cell Volume 91.9 82.9 - 93.1 fL [facility] Mean Cell Hemoglobin 31.1 27.5 - 32.1 pg [facility] Mean Cell Hemoglobin Concentration 33.8 32.0 - 35.7 gm/dL [facility] Platelet 192 145 - 357 x10(3)/[facility] RDW Standard Deviation 47.8(H) 36.0 - 45.0 fL [facility] RDW coefficient of variation 14.0(H) 11.4 - 13.8 % [facility] Mean Platelet Volume 10.3 7.6 - 12.9 fL [facility] NRBC% auto 0.0 % [facility] NRBC Absolute 0.000 0.000 - 0.000 x10(3)/mc L [facility] Blood specimen (specimen) 01/20/2019 6:35 AM EDT 01/20/2019 6:48 AM EDT Narrative Resulting Agency Comment Spec In Lab Js lAonzo MD HEMATOLOGY ORDERABLE S Performing Organization Address [facility] Co de Phone Number [facility] [place] [address] * Hepatic Function Panel (01/20/2019 6:35 AM EDT) Protein, Total 7.2 6.1 - 8.0 gm/dL [facility] Albumin 4.0 3.2 - 5.2 gm/dL [facility] Aspartate Aminotransferase 17 0 - 39 unit/L [facility] Alanine Aminotransferase 43 0 - 55 unit/L [facility] Alkaline Phosphatase 50 40 - 130 unit/L [facility] Bilirubin, Total 0.4 0.2 - 1.3 mg/dL [facility] Bilirubin, Direct 0.1 0.0 - 0.3 mg/dL [facility] Blood specimen (specimen) 01/20/2019 6:35 AM EDT 01/20/2019 6:53 AM EDT Narrative Resulting Agency Comment Spec In Lab Anjum Maier MD CHEMISTRY ORDERABLES Performing Organization Address [facility] Co de Phone Number [facility] [place] [address] * (ABNORMAL) Basic Metabolic Panel (non-fasting) (01/20/2019 6:35 AM EDT) Glucose 117 65 - 199 mg/dL [facility] Comment:Diabetes: >=200 mg/d L plus symptoms Blood Urea Nitrogen 14 10 - 20 mg/dL [facility] Creatinine 0.55(L) 0.80 - 1.50 mg/dL [facility] Sodium 140 135 - 145 mmol/L [facility] Potassium 4.5 3.5 - 5.0 mmol/L [facility] Comment: Please note: ??Patients with WBC >100,000 may have falsely elevated Potassium levels. ??For accurate Potassium quantification in these patients send serum separator tube (gold top) for subsequent determinations. ??Contact the Clinical Chemistry Laboratory if there are any questions. Chloride 101 98 - 107 mmol/L [facility] Carbon Dioxide 30 22 - 31 mmol/L [facility] Anion Gap 9 5 - 15 mmol/L [facility] Calcium 8.9 8.5 - 10.5 mg/dL [facility] Est Glomerular Filtration Rate 126 >=60 mL/min/1. 73 m?? [facility] Comment: The eGFR was calculated using the CKD-EPI equation. As with all creatinine based estimates of kidney function, eGFR values calculated with the CKD-EPI equation are not accurate in patients with acute kidney failure, extremes of body mass or the acutely ill. [email or web address] eGFR 146 >=60 mL/min/1. 73 m?? [facility] Comment: The eGFR was calculated using the CKD-EPI equation. As with all creatinine based estimates of kidney function, eGFR values calculated with the CKD-EPI equation are not accurate in patients with acute kidney failure, extremes of body mass or the acutely ill. [email or web address] Blood specimen (specimen) 01/20/2019 6:35 AM EDT 01/20/2019 6:53 AM EDT Narrative Resulting Agency Comment Spec In Lab Js Alonzo MD CHEMISTRY ORDERABLES Performing Organization Address City/[facility]/ZIP Co de Phone Number [facility] [place] [address] * AFB culture (01/19/2019 11:05 PM EDT) Acid Fast Bacilli Culture No Acid Fast Bacilli isolated If active tuberculosis is suspected, the patient should be on AIRBORNE PRECAUTIONS. Call Infection Prevention for assistance if needed. [facility] Acid Fast Stain No Acid Fast Bacilli seen [facility] Sputum specimen (specimen) 01/19/2019 11:05 PM EDT 01/20/2019 4:26 AM EDT Comment:SPECIMEN TYPE->SPUTU M EXPECTORATED Narrative Resulting Agency Comment Spec In Lab Anjum Maier MD MICROBIOLOGY - GENER AL ORDERABLES Performing Organization Address [facility] Co de Phone Number [facility] [place] [address] * M. tuberculosis complex/Rifampin PCR (01/19/2019 11:05 PM EDT) Pathologist [facility] MTBC PCR Not Detected Not Detected [facility] Rifampin PCR Not Applicable Not Detected [facility] MTBC/Rif PCR Interp The specimen did not contain M. tuberculosis complex (MTBC) organism or did not contain sufficient numbers of MTBC organisms for successful amplification. A negative test does not exclude the possibility of isolating MTBC from the respiratory sample. ??Assay must be used in conjunction with mycobacterial culture for maximum sensitivity and to recover the organism for further characterization and susceptibility testing. If you suspect pulmonary or laryngeal tuberculosis, then AIRBORNE PRECAUTIONS are required. Please consult with infection control prior to discontinuing precautions. No M. tuberculosis complex organism detected, therefore no results for rifampin resistance obtained. [facility] Sputum specimen (specimen) 01/19/2019 11:05 PM EDT 01/20/2019 9:47 AM EDT Comment:Specimen Type->Sputu m Expectorated Narrative Resulting Agency Comment Spec In Lab Anjum Maier MD MICROBIOLOGY - GENER AL ORDERABLES Performing Organization Address [facility] Co de Phone Number [facility] [place] [address] * (ABNORMAL) Lower Respiratory Culture Sputum Expectorated (01/19/2019 11:05 PM EDT) Lower Respiratory Culture Moderate mixed bacterial morphotypes suggestive of normal upper respiratory bimal (A) [facility] Gram Stain Few Neutrophils seen Few squamous epithelial cells seen Few Gram Positive Cocci seen Few Gram Positive Rods seen (A) [facility] Organism Gram Positive Cocci(A) [facility] Organism Gram Positive Rods(A) [facility] Sputum specimen (specimen) 01/19/2019 11:05 PM EDT 01/20/2019 4:26 AM EDT Narrative Resulting Agency Comment Spec In Lab Anjum Maier MD MICROBIOLOGY - GENER AL ORDERABLES Performing Organization Address [facility] Co de Phone Number [facility] [place] [address] * (ABNORMAL) CT Angiogram Chest for Pulmonary Embolus w Contrast (01/19/2019 3:15 PM EDT) Anatomical Region Laterality Modality Chest Computed Tomogra phy Impressions 01/19/2019 4:45 PM EDT 1. ??UNEXPECTED FINDIN.9 cm left lower lobe peripheral nodule, also favored to represent sequela of granulomatous disease, however, according to the 2017 Fleischner criteria guidelines, follow-up CT in 3 months is recommended for further characterization. 2. ??No pulmonary embolism identified. 3. ??Pulmonary stigmata of granulomatous disease including multiple mid to lower lung predominant calcified and noncalcified pulmonary nodules as well as bilateral hilar and mediastinal calcified and noncalcified lymphadenopathy. 4. ??Moderate centrilobular emphysema. 5. ??1.5 cm hypoattenuating focus in the right renal interpolar region which is favored to represent a renal cyst but is incompletely characterized. Nonemergent ultrasound is recommended for further characterization with the patient's acute medical condition improves. 6. ??Nonspecific 1.0 cm extra hepatic CBD prominence without calcified choledocholithiasis. While this could represent normal variation, correlation with liver function tests is recommended for further characterization. This could also be better characterize with imaging at the same time as the nonemergent ultrasound for the hypoattenuating renal focus. These findings were discussed with Vimal Maier MD, at [facility], by José Miguel Foote M.D., with verbal confirmation of these results results by the recipient on 01/19/2019 4:45 PM. Thank you for letting us participate in the care of this patient. For questions regarding this report, please contact the number below. ? Narrative 01/19/2019 4:45 PM EDT EXAMINATION: CTA CHEST PULMONARY EMBOLISM W CONTRAST CLINICAL HISTORY: dyspnea, pleuritic chest pain; 43 y/o with persistent cough with blood streaked sputum and dyspnea despite appropriate treatment for pneumonia and COPD, rule out pulmonary embolism [...] January 18, 2019. FINDINGS: Pulmonary arteries: No pulmonary arterial filling defects. Other cardiovascular structures: Normal [...] cm extrahepatic CBD prominence without calcified choledocholithiasis. 1.5 cm hypoattenuating focus in the right renal interpolar region, incompletely characterized but favored to represent a renal cyst. Skeletal structures: No aggressive lytic or sclerotic lesions. Multilevel degenerative changes throughout the visualized thoracic spine. Resulting Agency Comment Unexpected Finding Anjum Maier MD IMG CT ORDERABLES * Rapid Influenza A/B and RSV PCR [place] (01/19/2019 9:32 AM EDT) Pathologist [facility] Influenza A PCR Not Detected Not Detected [facility] Influenza B PCR Not Detected Not Detected [facility] RSV PCR Not Detected Not Detected [facility] Resp PCR Source [employer]IL [employer] Swab [facility] Nasopharyngeal swab (specimen) 01/19/2019 9:32 AM EDT 01/19/2019 10:16 AM EDT Narrative Resulting Agency Comment Spec In Lab Anjum Maier MD MICROBIOLOGY - GENER AL ORDERABLES [facility] [place] [address] * (ABNORMAL) Differential, Automated (01/19/2019 8:24 AM EDT) Neutrophil % 90.4 % [facility] Neutrophil Absolute 10.88(H) 1.70 - 6.10 x10(3)/mc L [facility] Lymph % 7.2 % [facility] Lymphocytes Abs 0.9 0.9 - 3.2 x10(3)/mc L [facility] Monocyte % 1.8 % [facility] Monocyte Abs 0.2(L) 0.3 - 0.9 x10(3)/ L [facility] Eos % 0.0 % [facility] Eosinophils Abs 0.0 0.0 - 0.4 x10(3)/ L [facility] Basophil % 0.2 % [facility] Baso Absolute 0.0 0.0 - 0.1 x10(3)/ L [facility] Immature Gran % 0.40 % [facility] Comment: Immature granulocytes(IG's)percentage and absolute count will include metamyelocytes, myelocytes, and promyelocytes. Blood smears from CBCs yielding IG's will be scanned manually for concordance. If this scan disagrees with the automated IG or if promyelocytes are noted, a manual differential will be performed. Immature Gran Absolute 0.05(H) 0.00 - 0.04 x10(3)/ L [facility] Blood specimen (specimen) 01/19/2019 8:24 AM EDT 01/19/2019 8:44 AM EDT Narrative Resulting Agency Comment Spec In Lab Js Alonzo MD HEMATOLOGY ORDERABLE S [facility] [place] [address] * (ABNORMAL) Hemogram (01/19/2019 8:24 AM EDT) White Blood Cell 12.0(H) 4.0 - 9.5 x10(3)/ L [facility] Red Blood Cell 4.90 4.58 - 5.54 x10(6)/ L [facility] Hemoglobin 15.1 13.7 - 16.5 gm/dL [facility] Hematocrit 44.7 40.5 - 48.5 % [facility] Mean Cell Volume 91.2 82.9 - 93.1 fL [facility] Mean Cell Hemoglobin 30.8 27.5 - 32.1 pg [facility] Mean Cell Hemoglobin Concentration 33.8 32.0 - 35.7 gm/dL [facility] Platelet 198 145 - 357 x10(3)/mc L [facility] RDW Standard Deviation 46.4(H) 36.0 - 45.0 fL [facility] RDW coefficient of variation 13.6 11.4 - 13.8 % [facility] Mean Platelet Volume 10.1 7.6 - 12.9 fL [facility] NRBC% auto 0.0 % [facility] NRBC Absolute 0.000 0.000 - 0.000 x10(3)/mc L [facility] Blood specimen (specimen) 01/19/2019 8:24 AM EDT 01/19/2019 8:44 AM EDT Narrative Resulting Agency Comment Spec In Lab Js Alonzo MD HEMATOLOGY ORDERABLE S [facility] [place] [address] * (ABNORMAL) Basic Metabolic Panel (non-fasting) (01/19/2019 8:24 AM EDT) Glucose 203(H) 65 - 199 mg/dL [facility] Comment:Diabetes: >=200 mg/d L plus symptoms Blood Urea Nitrogen 14 10 - 20 mg/dL [facility] Creatinine 0.55(L) 0.80 - 1.50 mg/dL [facility] Sodium 140 135 - 145 mmol/L [facility] Potassium 4.3 3.5 - 5.0 mmol/L [facility] Comment: Please note: ??Patients with WBC >100,000 may have falsely elevated Potassium levels. ??For accurate Potassium quantification in these patients send serum separator tube (gold top) for subsequent determinations. ??Contact the Clinical Chemistry Laboratory if there are any questions. Chloride 101 98 - 107 mmol/L [facility] Carbon Dioxide 29 22 - 31 mmol/L [facility] Anion Gap 10 5 - 15 mmol/L [facility] Calcium 8.7 8.5 - 10.5 mg/dL [facility] Est Glomerular Filtration Rate 126 >=60 mL/min/1. 73 m?? [facility] Comment: The eGFR was calculated using the CKD-EPI equation. As with all creatinine based estimates of kidney function, eGFR values calculated with the CKD-EPI equation are not accurate in patients with acute kidney failure, extremes of body mass or the acutely ill. [email or web address] eGFR 146 >=60 mL/min/1. 73 m?? [facility] Comment: The eGFR was calculated using the CKD-EPI equation. As with all creatinine based estimates of kidney function, eGFR values calculated with the CKD-EPI equation are not accurate in patients with acute kidney failure, extremes of body mass or the acutely ill. [email or web address] Blood specimen (specimen) 01/19/2019 8:24 AM EDT 01/19/2019 8:44 AM EDT Narrative Resulting Agency Comment Spec In Lab Js Alonzo MD CHEMISTRY ORDERABLES [facility] [place] [address] * HIV Screen, 4th Generation ([facility]CGP/APD) (01/18/2019 4:55 PM EDT) HIV Ab/Ag Screen Negative Negative [facility] Comment: This 4th Generation HIV test [...] In Lab Anjum Maier MD CHEMISTRY ORDERABLES Performing Organization Address [facility] Co de Phone Number [facility] [place] [address] * D-Dimer, Quantitative (01/18/2019 4:55 PM EDT) [facility] D-Dimer 268 0 - 500 FEU ng/ml [facility] Comment: The D-Dimer assay is used to aid in the diagnosis of deep vein thrombosis and pulmonary embolism. A normal D-Dimer result (less than 500 FEU ng/ml) has a negative predictive value of approximately 95% for the exclusion of acute PE and DVT when there is low to moderate pretest probability. To use age adjusted cutoff: Age x 10 ng/ml. Blood specimen (specimen) Venous Draw / Unknown 01/18/2019 4:55 PM EDT 01/18/2019 5:24 PM EDT Narrative Resulting Agency Comment Spec In Lab Mirza Weinberg MD HEMATOLOGY ORDERABLE S Performing Organization Address [facility] Co de Phone Number [facility] [place] [address] * Gold Tube HOLD (01/18/2019 4:55 PM EDT) [facility] Gold Hold Sample in lab. [facility] Blood specimen (specimen) Venous Draw / Unknown 01/18/2019 4:55 PM EDT 01/18/2019 5:22 PM EDT Mirza Weinberg MD CHEMISTRY ORDERABLES Performing Organization Address [facility] Co de Phone Number [facility] [place] [address] * Blue Tube HOLD (01/18/2019 4:55 PM EDT) [facility] Blue Hold Sample in lab. [facility] Blood specimen (specimen) Venous Draw / Unknown 01/18/2019 4:55 PM EDT 01/18/2019 5:24 PM EDT Mirza Weinberg MD HEMATOLOGY ORDERABLE S Performing Organization Address City/State/[facility] Co de Phone Number [facility] [place] [address] * (ABNORMAL) Differential, Automated (01/18/2019 4:55 PM EDT) Neutrophil % 45.2 % [facility] Neutrophil Absolute 3.67 1.70 - 6.10 x10(3)/mc L [facility] Lymph % 30.0 % [facility] Lymphocytes Abs 2.4 0.9 - 3.2 x10(3)/ L [facility] Monocyte % 11.6 % [facility] Monocyte Abs 0.9 0.3 - 0.9 x10(3)/ L [facility] Eos % 11.4 % [facility] Eosinophils Abs 0.9(H) 0.0 - 0.4 x10(3)/ L [facility] Basophil % 0.9 % [facility] Baso Absolute 0.1 0.0 - 0.1 x10(3)/mc L [facility] Immature Gran % 0.90 % [facility] Comment: Immature granulocytes(IG's)percentage and absolute count will include metamyelocytes, myelocytes, and promyelocytes. Blood smears from CBCs yielding IG's will be scanned manually for concordance. If this scan disagrees with the automated IG or if promyelocytes are noted, a manual differential will be performed. Immature Gran Absolute 0.07(H) 0.00 - 0.04 x10(3)/ L [facility] Blood specimen (specimen) 01/18/2019 4:55 PM EDT 01/18/2019 5:21 PM EDT Narrative Resulting Agency Comment Spec In Lab Mirza Weinberg MD HEMATOLOGY ORDERABLE S [facility] [place] [address] * (ABNORMAL) Hemogram (01/18/2019 4:55 PM EDT) [facility] White Blood Cell 8.1 4.0 - 9.5 x10(3)/ L [facility] Red Blood Cell 5.05 4.58 - 5.54 x10(6)/[facility] Hemoglobin 15.7 13.7 - 16.5 gm/dL [facility] Hematocrit 47.0 40.5 - 48.5 % [facility] Mean Cell Volume 93.1 82.9 - 93.1 fL [facility] Mean Cell Hemoglobin 31.1 27.5 - 32.1 pg [facility] Mean Cell Hemoglobin Concentration 33.4 32.0 - 35.7 gm/dL [facility] Platelet 200 145 - 357 x10(3)/[facility] RDW Standard Deviation 46.8(H) 36.0 - 45.0 [facility] RDW coefficient of variation 13.7 11.4 - 13.8 % [facility] Mean Platelet Volume 10.4 7.6 - 12.9 [facility] NRBC% auto 0.0 % [facility] NRBC Absolute 0.000 0.000 - 0.000 x10(3)/[facility] Blood specimen (specimen) 01/18/2019 4:55 PM EDT 01/18/2019 5:21 PM EDT Narrative Resulting Agency Comment Spec In Lab Mirza Weinberg MD HEMATOLOGY ORDERABLE S [facility] [place] [address] * Troponin (01/18/2019 4:55 PM EDT) [facility] Troponin-T <0.01 0.00 - 0.00 ng/mL [facility] Comment: The 99th percentile for Troponin T is less than 0.01 ng/mL, any detectable cTnT concentration using this assay should be considered elevated. According to the third universal definition of myocardial infarction the following criteria with a clinical presentation consistent with acute myocardial ischemia meets the diagnosis for a myocardial infarction ([place]). Detection of a rise and/or fall of cTnT, with at least one value greater than the 99th percentile (> or = 0.01) and with at least one of the following ?? Symptoms of ischemia ?? New or presumed new significant XK-vjtgyda-T wave (ST-T) changes or new left bundle [...] additional sample may be indicated. Reference: Third Edmondson Definition of Myocardial Infarction. Journal of the [place] [employer] 2012;60:1581-98 Blood specimen (specimen) 01/18/2019 4:55 PM EDT 01/18/2019 5:21 PM EDT Narrative Resulting Agency Comment Spec In Lab Mahamed Naik MD CHEMISTRY ORDERABLES [facility] [place] [address] * (ABNORMAL) Basic Metabolic Panel (non-fasting) (01/18/2019 4:55 PM EDT) Glucose 82 65 - 199 mg/dL [facility] Comment:Diabetes: >=200 mg/d L plus symptoms Blood Urea Nitrogen 12 10 - 20 mg/dL [facility] Creatinine 0.73(L) 0.80 - 1.50 mg/dL [facility] Sodium 140 135 - 145 mmol/L [facility] Potassium 4.6 3.5 - 5.0 mmol/L [facility] Comment: Please note: ??Patients with WBC >100,000 may have falsely elevated Potassium levels. ??For accurate Potassium quantification in these patients send serum separator tube (gold top) for subsequent determinations. ??Contact the Clinical Chemistry Laboratory if there are any questions. Chloride 97(L) 98 - 107 mmol/L [facility] Carbon Dioxide 36(H) 22 - 31 mmol/L [facility] Anion Gap 7 5 - 15 mmol/L [facility] Calcium 9.1 8.5 - 10.5 mg/dL [facility] Est Glomerular Filtration Rate 112 >=60 mL/min/1. 73 m?? [facility] Comment: The eGFR was calculated using the CKD-EPI equation. As with all creatinine based estimates of kidney function, eGFR values calculated with the CKD-EPI equation are not accurate in patients with acute kidney failure, extremes of body mass or the acutely ill. [email or web address] eGFR 130 >=60 mL/min/1. 73 m?? [facility] Comment: The eGFR was calculated using the CKD-EPI equation. As with all creatinine based estimates of kidney function, eGFR values calculated with the CKD-EPI equation are not accurate in patients with acute kidney failure, extremes of body mass or the acutely ill. [email or web address] Blood specimen (specimen) 01/18/2019 4:55 PM EDT 01/18/2019 5:21 PM EDT Narrative Resulting Agency Comment Spec In Lab Mahamed Naik MD CHEMISTRY ORDERABLES [facility] [place] [address] * XR Chest PA & Lateral (Generic) (01/18/2019 4:05 PM EDT) Anatomical Region Laterality Modality Chest N/A Digital Radiogra phy Impressions 01/18/2019 4:13 PM EDT Some patchy perihilar airspace disease demonstrated. This may represent infectious etiology/pneumonia. Follow-up is recommended to evaluate for resolution. Lungs are slightly hyperinflated (versus vigorous inspiratory effort). Thank you for letting us participate in the care of this patient. For questions regarding this report, please contact the number below. ? Narrative 01/18/2019 4:13 PM EDT EXAMINATION: XR CHEST PA AND LATERAL (GENERIC) CLINICAL HISTORY: shortness of breath TECHNIQUE: Frontal and lateral views of the chest COMPARISON: 01/02/2019 frontal chest in 12/31/2018 two-view chest FINDINGS: There is some patchy perihilar airspace disease and increased markings. No pleural effusion. No pneumothorax. Mild flattening of the diaphragms and increased AP chest diameter consistent with some hyperinflation or vigorous inspiratory effort. The pulmonary vasculature is normal. Cardiomediastinal silhouette is normal. Procedure Note Iron Canela MD - 01/18/2019 EXAMINATION: XR CHEST PA AND LATERAL (GENERIC) CLINICAL HISTORY: shortness of breath TECHNIQUE: Frontal and lateral views of the chest COMPARISON: 01/02/2019 frontal chest in 12/31/2018 two-view chest FINDINGS: There is some patchy perihilar airspace disease and increased markings.No pleural effusion. No pneumothorax. Mild flattening of the diaphragms and increased AP chest diameter consistent with some hyperinflation orvigorous inspiratory effort. The pulmonary vasculature is normal.Cardiomediastinal silhouette is normal. IMPRESSION Some patchy perihilar airspace disease demonstrated. This may represent infectious etiology/pneumonia. Follow-up is recommended to evaluate for resolution. Lungs are slightly hyperinflated (versus vigorousinspiratory effort). Thank you for letting us participate in the care of this patient. Forquestions regarding this report, please contact the number below. Andres Hernandez MD IMG DX ORDERABLES * EKG 12 Lead (01/18/2019 4:03 PM EDT) Ventricular rate 70 BPM MUSE SYSTEM Atrial Rate 70 BPM MUSE SYSTEM P-R Interval 134 ms MUSE SYSTEM QRS Duration 92 ms MUSE SYSTEM Q-T Interval 402 ms MUSE SYSTEM QTC Calculated (Bezet) 434 ms MUSE SYSTEM Calculated P Eminence 42 degrees MUSE SYSTEM Calculated R Eminence 86 degrees MUSE SYSTEM Calculated T Eminence 65 degrees MUSE SYSTEM INTERPRETATION Normal sinus rhythm Normal ECG When compared with ECG of 26-NOV-2018 07:16, No significant change was found Confirmed by MD JANA, RASHAAD ([id number]) on 01/22/2019 3:11:27 PM MUSE SYSTEM 01/18/2019 4:03 PM EDT 01/22/2019 3:11 PM EDT Andres Hernandez MD ECG ORDERABLES MUSE SYSTEM documented in this encounter Visit Diagnoses Diagnosis Hypoxia Hypoxemia Chronic hepatitis C without hepatic coma Hypoxia Hypoxemia documented in this encounter Admitting Diagnoses Diagnosis Hypoxia Hypoxemia documented in this encounter Administered Medications Inactive Administered Medications - up to 3 most recent administrations Medication Order MAR Action Action Date Dose Rate Site acetaminophen (TYLENOL) tablet 500 mg 500 mg, Oral, EVERY 6 HOURS PRN, Starting on Mon01/18/19 at 2233, Until Mon01/22/19 at 1600, Pain, Maximum dose of acetaminophen is 4000 mg from all sources in 24 hours., Routine Given 01/22/2019 12:54 PM EDT 500 mg Given 01/21/2019 2:25 PM EDT 500 mg Given 01/20/2019 5:48 PM EDT 500 mg albuterol (PROVENTIL) nebulizer solution 2.5 mg 2.5 mg, Nebulization, EVERY 15 MIN, 3 doses, First dose on Mon01/18/19 at 1740, Last dose on Mon01/18/19 at 1810, STAT Given 01/18/2019 6:07 PM EDT 2.5 mg Given 01/18/2019 5:55 PM EDT 2.5 mg Given 01/18/2019 5:53 PM EDT 2.5 mg albuterol (PROVENTIL) nebulizer solution 2.5 mg 2.5 mg, Nebulization, EVERY 2 HOURS PRN, Starting on Mon01/19/19 at 0819, Until Mon01/22/19 at 1600, Wheezing, Shortness of Breath, Routine budesonide-formoterol (SYMBICORT) 160-4.5 mcg/actuation inhaler 2 Inhalation 2 .Inhalation , Inhalation, 2 TIMES DAILY, First dose on Mon01/20/19 at 2100, Until Discontinued, Routine Given 01/22/2019 8:13 AM EDT 2 .Inhalat ion Given 01/21/2019 8:05 PM EDT 2 .Inhalation Given 01/21/2019 8:37 AM EDT 2 .Inhalation busPIRone (BUSPAR) tablet 15 mg 15 mg, Oral, 3 TIMES DAILY, First dose on Mon01/18/19 at 2240, Until Discontinued, Routine Given 01/22/2019 12:2 2 PM EDT 15 mg Given 01/22/2019 8:11 AM EDT 15 mg Given 01/21/2019 5:25 PM EDT 15 mg DULoxetine (CYMBALTA) capsule 60 mg 60 mg, Oral, 2 TIMES DAILY, First dose on Mon01/18/19 at 2240, Until Discontinued, Do not crush or chew, Routine Given 01/22/2019 8:11 AM EDT 60 mg Given 01/21/2019 8:01 PM EDT 60 mg Given 01/21/2019 8:36 AM EDT 60 mg enoxaparin (LOVENOX) injection 40 mg 40 mg, Subcutaneous, NIGHTLY, First dose on Mon01/18/19 at 2235, Until Discontinued, Routine Given 01/21/2019 8:05 PM EDT 40 mg Given 01/20/2019 8:09 PM EDT 40 mg Given 01/19/2019 10:18 PM EDT 40 mg ibuprofen (ADVIL;MOTRIN) tablet 600 mg 600 mg, Oral, EVERY 8 HOURS PRN, Starting on Mon01/18/19 at 2233, Until Mon01/22/19 at 1600, Pain, Administer orally with milk or food to minimize GI irritation , Routine Given 01/21/2019 8:34 AM EDT 600 mg Given 01/19/2019 4:06 PM EDT 600 mg Given 01/19/2019 6:03 AM EDT 600 mg iohexol (OMNIPAQUE) 350 mg/mL solution 0-200 mL 0-200 mL, Intravenous, ONCE PRN, 1 dose, Starting on 01/19/19 at 1516, Until Mon01/19/19 at 1516, Per Protocol, Warning Vesicant/Irritant Medication , Radiology Contrast, Routine Given 01/19/2019 3:16 PM EDT 60 mLs ipratropium-albuterol (DUONEB) 0.5 mg-3 mg(2.5 mg base)/3 mL nebulizer solution 3 mL 3 mL, Nebulization, EVERY 15 MIN, 3 doses, First dose on Mon01/18/19 at 1636, Last dose on Mon01/18/19 at 1706, STAT Given 01/18/2019 5:09 PM EDT 3 mLs Given 01/18/2019 5:00 PM EDT 3 mLs Given 01/18/2019 4:49 PM EDT 3 mLs ipratropium-albuterol (DUONEB) 0.5 mg-3 mg(2.5 mg base)/3 mL nebulizer solution 3 mL 3 mL, Nebulization, EVERY 6 HOURS, First dose on Mon01/18/19 at 2235, Until Discontinued, Routine Given 01/18/2019 11:01 PM EDT 3 mLs ipratropium-albuterol (DUONEB) 0.5 mg-3 mg(2.5 mg base)/3 mL nebulizer solution 3 mL 3 mL, Nebulization, EVERY 6 HOURS SCHEDULED, First dose on Mon01/19/19 at 0000, Until Discontinued, Routine Given 01/19/2019 6:04 AM EDT 3 mLs ipratropium-albuterol (DUONEB) 0.5 mg-3 mg(2.5 mg base)/3 mL nebulizer solution 3 mL 3 mL, Nebulization, EVERY 4 HOURS SCHEDULED, First dose (after last modification) on 01/19/19 at 1200, Until Discontinued, Routine Given 01/22/2019 12:2 4 PM EDT 3 mLs Given 01/22/2019 8:10 AM EDT 3 mLs Given 01/22/2019 4:22 AM EDT 3 mLs levoFLOXacin (LEVAQUIN) 500 mg in dextrose 5% 100 mL 500 mg, Intravenous, at 100 mL/hr, Administer over 60 Minutes, ONCE, 1 dose, On Mon01/18/19 at 1856, STAT, Indication for (Active or Suspected): Pneumonia ([facility]), Restricted Antibiotic: Please indicate the most appropriate choice: Ordered from Emergency Department New Bag 01/18/2019 7:38 PM EDT 500 mg 100 mL/hr Right Arm LORazepam (ATIVAN) tablet 1 mg 1 mg, Oral, ONCE, 1 dose, On Mon01/18/19 at 1659, STAT Given 01/18/2019 4:59 PM EDT 1 mg LORazepam (ATIVAN) tablet 1 mg 1 mg, Oral, ONCE, 1 dose, On 01/19/19 at 1700, STAT Given 01/19/2019 4:38 PM EDT 1 mg LORazepam (ATIVAN) tablet 1 mg 1 mg, Oral, ONCE, 1 dose, On Mon01/20/19 at 1030, Routine Given 01/20/2019 10:10 AM EDT 1 mg LORazepam (ATIVAN) tablet 1 mg 1 mg, Oral, ONCE, 1 dose, On Mon01/20/19 at 1715, Routine Given 01/20/2019 5:04 PM EDT 1 mg LORazepam (ATIVAN) tablet 1 mg 1 mg, Oral, ONCE, 1 dose, On Mon01/21/19 at 1030, Routine Given 01/21/2019 10:28 AM EDT 1 mg LORazepam (ATIVAN) tablet 1 mg 1 mg, Oral, ONCE, 1 dose, On Mon01/21/19 at 1600, Routine Given 01/21/2019 3:55 PM EDT 1 mg LORazepam (ATIVAN) tablet 1 mg 1 mg, Oral, ONCE, 1 dose, On Mon01/22/19 at 1045, Routine Given 01/22/2019 10:40 AM EDT 1 mg melatonin tablet 6 mg 6 mg, Oral, NIGHTLY PRN, Starting on Mon01/18/19 at 2233, Until Mon01/22/19 at 1600, insomnia, Routine Given 01/21/2019 8:05 PM EDT 6 mg methadone (Dolophine) (10 mg/mL) oral liquid 120 mg 120 mg, Oral, DAILY, First dose on 01/19/19 at 1345, Until Discontinued, Liquid methadone should be used to avoid diversion, and a mouth check should be performed after each dose., Routine, Name of patient's Methadone clinic? [facility] (most recently at [facility]), Methadone clinic phone: Iam muniz googled and called multiple times, dose confirmed by MAR that came with patient in transfer records, Date last Methadone dose was given at the Outpatient Clinic? 01/18/2019, Dose of Methadone provided at the clinic? 120 mg Given 01/22/2019 8:13 AM EDT 120 mg Given 01/21/2019 9:00 AM EDT 120 mg Given 01/20/2019 9:00 AM EDT 120 mg methylPREDNISolone sodium succinate (PF) (SOLU-Medrol) injection 125 mg 125 mg, Intravenous, ONCE, 1 dose, On Mon01/18/19 at 1636 Given 01/18/2019 5:08 PM EDT 125 mg methylPREDNISolone sodium succinate (PF) (SOLU-Medrol) injection 60 mg 60 mg, Intravenous, 3 TIMES DAILY, First dose on Mon01/18/19 at 2235, Until Discontinued Given 01/19/2019 11:00 PM EDT 60 mg Given 01/19/2019 2:09 PM EDT 60 mg Given 01/19/2019 8:04 AM EDT 60 mg methylPREDNISolone sodium succinate (PF) (SOLU-Medrol) injection 62.5 mg 62.5 mg (rounded from 60 mg), Intravenous, 3 TIMES DAILY, 3 doses, First dose (after last reorder) on 01/20/19 at 0900, Last dose on Mon01/20/19 at 2100 Given 01/20/2019 8:48 PM EDT 62.5 mg Given 01/20/2019 3:08 PM EDT 62.5 mg Given 01/20/2019 8:20 AM EDT 62.5 mg metroNIDAZOLE (FLAGYL) 500 mg in sodium chloride 0.9% 100 mL 500 mg, Intravenous, ONCE, 1 dose, On Mon01/18/19 at 1854, Administer over 30 Minutes, Indication for (Active or Suspected): Anaerobic infection-Respiratory New Bag 01/18/2019 7:02 PM EDT 500 mg 200 mL/hr nicotine (NICODERM CQ) 14 mg/24 hr patch 14 mg 14 mg (1 patch), Transdermal, Administer over 24 Hours, DAILY, First dose on 01/19/19 at 0900, Until Discontinued, Routine Given 01/20/2019 8:13 AM EDT 14 mg 09- Arm Upper (Left) Given 01/19/2019 8:17 AM EDT 14 mg 10 - Arm Upper (Right) nicotine (NICODERM CQ) 21 mg/24 hr patch 21 mg 21 mg (1 patch), Transdermal, DAILY, First dose on Mon01/20/19 at 1030, Until Discontinued, Routine Patch Applied 01/22/2019 8:13 AM EDT 21 mg 10- Arm Upper (Right ) Patch Applied 01/21/2019 8:53 AM EDT 21 mg 09- Arm Upper (Left) Patch Applied 01/20/2019 8:09 PM EDT 21 mg 09- Arm Upper (Left) nicotine (NICODERM CQ) 21 mg/24 hr patch Patch Removal Transdermal, DAILY, First dose on Mon01/21/19 at 1015, Until Discontinued, Remove nicotine 21 mg/24 hr patch nicotine (NICODERM CQ) 21 mg/24 hr patch Patch Verification Transdermal, 2 TIMES DAILY, First dose on [facility] 01/20/19 at 2215, Until Discontinued, Verify nicotine 21 mg/24 hr patch pantoprazole (PROTONIX) tablet 40 mg 40 mg, Oral, DAILY, First dose on [facility] 01/19/19 at 0630, Until Discontinued, DO NOT CRUSH OR OPEN Given 01/22/2019 8:10 AM EDT 40 mg Given 01/21/2019 8:37 AM EDT 40 mg Given 01/20/2019 8:11 AM EDT 40 mg predniSONE (DELTASONE) tablet 40 mg 40 mg, Oral, DAILY, First dose on Mon01/21/19 at 0900, Until Discontinued, Routine Given 01/22/2019 8:10 AM EDT 40 mg Given 01/21/2019 8:36 AM EDT 40 mg pregabalin (LYRICA) capsule 200 mg 200 mg, Oral, 2 TIMES DAILY, First dose on Mon01/18/19 at 2240, Until Discontinued, Routine Given 01/19/2019 8:05 AM EDT 200 mg Given 01/18/2019 11:02 PM EDT 200 mg pregabalin (LYRICA) capsule 200 mg 200 mg, Oral, 3 TIMES DAILY, First dose (after last reorder) on Mon01/19/19 at 1430, Until Discontinued, Routine Given 01/22/2019 12:23 PM EDT 200 mg Given 01/22/2019 8:10 AM EDT 200 mg Given 01/21/2019 5:24 PM EDT 200 mg prochlorperazine (COMPAZINE) tablet 10 mg 10 mg, Oral, EVERY 6 HOURS PRN, Starting on Mon01/19/19 at 0606, Until Mon01/22/19 at 1600, Nausea, Maximum dose: 50 mg / 24 hrs, Routine Given 01/19/2019 6:14 AM EDT 10 mg QUEtiapine (SEROquel) tablet 300 mg 300 mg, Oral, NIGHTLY, First dose on Mon01/18/19 at 2240, Until Discontinued, Routine Given 01/21/2019 8:01 PM EDT 300 mg Given 01/20/2019 8:08 PM EDT 300 mg Given 01/19/2019 10:15 PM EDT 300 mg sodium chloride 0.9 % (flush) flush 5 mL 5 mL, Intravenous, 2 TIMES DAILY, First dose on Mon01/18/19 at 2235, Until Discontinued, Routine Given 01/22/2019 8:17 AM EDT 5 mLs Given 01/21/2019 8:05 PM EDT 5 mLs Given 01/21/2019 9:00 AM EDT 5 mLs vancomycin 2 g in sodium chloride 0.9% 500 mL 2 g, Intravenous, at 250 mL/hr, ONCE, 1 dose, On Mon01/18/19 at 1859, Maximum infusion rate is 1 gram/hour. If flushing of the face, neck, upper body, arms, and/or back occurs decrease infusion rate by 50% to reduce the severity of symptoms. This medication may have an associated drug lab level. Please see MAR for scheduled level. Warning Vesicant/Irritant Medication , Routine, Indication for (Active or Suspected): Bacteremia/Sepsis New Bag 01/18/2019 8:48 PM EDT 2 g 250 mL/hr Right Arm documented in this encounter Active and Recently Administered Medications Times are shown in EDT. Scheduled Medication Order 01/20/2019 01/21/2019 01/22/2019 budesonide-formoterol (SYMBICORT) 160-4.5 mcg/actuation inhaler 2 Inhalation 2 .Inhalation , Inhalation, 2 TIMES DAILY, First dose on Mon01/20/19 at 2100, Until Discontinued, Routine 2006 (Given - Provider: Joy Tabor RN) 0837 (Given - Provider: Karen Young RN)2004 (Given - Provider: Joy Tabor RN) 0813 (Given - Provider: Karen Young RN) busPIRone (BUSPAR) tablet 15 mg 15 mg, Oral, 3 TIMES DAILY, First dose on Mon01/18/19 at 2240, Until Discontinued, Routine 0811 (Given - Provider: Delia Titus RN)1237 (Given - Provider: Delia Titus RN)1635 (Given - Provider: Mely Rachel RN) 0835 (Given - Provider: Karen Young RN)1213 (Given - Provider: Karen Young RN)1725 (Given - Provider: Karen Young RN) 0811 (Given - Provider: Karen Young RN)1222 (Given - Provider: Karen Young RN) DULoxetine (CYMBALTA) capsule 60 mg 60 mg, Oral, 2 TIMES DAILY, First dose on Mon01/18/19 at 2240, Until Discontinued, Do not crush or chew, Routine 0811 (Given - Provider: Delia Titus RN)2007 (Given - Provider: Jyo Tabor RN) 0836 (Given - Provider: Karen Young RN)2000 (Given - Provider: Joy Tabor RN) 0811 (Given - Provider: Karen Young RN) enoxaparin (LOVENOX) injection 40 mg 40 mg, Subcutaneous, NIGHTLY, First dose on Mon01/18/19 at 2235, Until Discontinued, Routine 2008 (Given - Provider: Joy Tabor RN) 2004 (Given - Provider: Joy Tabor RN) ipratropium-albuterol (DUONEB) 0.5 mg-3 mg(2.5 mg base)/3 mL nebulizer solution 3 mL 3 mL, Nebulization, EVERY 4 HOURS SCHEDULED, First dose (after last modification) on 01/19/19 at 1200, Until Discontinued, Routine 0000 (Not Given - Provider: Viv Villeda RN - Reason: Contraindicated)0557 (Given - Provider: Viv Villeda RN)0826 (Given - Provider: Delia Titus, CHRISTINE)1237 (Given - Provider: Delia Titus, CHRISTINE)1636 (Given - Provider: Mely Rachel RN)2008 (Given - Provider: Joy Tabor RN)2348 (Given - Provider: Joy Tabor RN) 0355 (Given - Provider: Joy Tabor RN)0837 (Given - Provider: Karen Young RN)1214 (Given - Provider: Karen Young RN)1555 (Given - Provider: Ela Enriquez RN)2004 (Given - Provider: Joy Tabor RN) 0004 (Given - Provider: Joy Tabor RN)0422 (Given - Provider: Joy Tabor RN)0810 (Given - Provider: Karen Young RN)1224 (Given - Provider: Karen Young RN) LORazepam (ATIVAN) tablet 1 mg (COMPLETED) 1 mg, Oral, ONCE, 1 dose, On 01/20/19 at 1030, Routine 1010 (Given - Provider: Delia Titus RN) LORazepam (ATIVAN) tablet 1 mg (COMPLETED) 1 mg, Oral, ONCE, 1 dose, On 01/20/19 at 1715, Routine 1704 (Given - Provider: Delia Titus RN) LORazepam (ATIVAN) tablet 1 mg (COMPLETED) 1 mg, Oral, ONCE, 1 dose, On 01/21/19 at 1030, Routine 1028 (Given - Provider: Ela Enriquez, CHRISTINE) LORazepam (ATIVAN) tablet 1 mg (COMPLETED) 1 mg, Oral, ONCE, 1 dose, On Mon01/21/19 at 1600, Routine 1555 (Given - Provider: Ela Enriquez, CHRISTINE) LORazepam (ATIVAN) tablet 1 mg (COMPLETED) 1 mg, Oral, ONCE, 1 dose, On Mon01/22/19 at 1045, Routine 1040 (Given - Provider: Karen Young, CHRISTINE) methadone (Dolophine) (10 mg/mL) oral liquid 120 mg 120 mg, Oral, DAILY, First dose on 01/19/19 at 1345, Until Discontinued, Liquid methadone should be used to avoid diversion, and a mouth check should be performed after each dose., Routine, Name of patient's Methadone clinic? [facility] (most recently at [facility]), Methadone clinic phone: Iam flavio googled and called multiple times, dose confirmed by MAR that came with patient in transfer records, Date last Methadone dose was given at the Outpatient Clinic? 01/18/2019, Dose of Methadone provided at the clinic? 120 mg 0900 (Given - Provider: Delia Titus RN) 0900 (Given - Provider: Karen Young RN) 0813 (Given - Provider: Karen Young RN) methylPREDNISolone sodium succinate (PF) (SOLU-Medrol) injection 62.5 mg (COMPLETED) 62.5 mg (rounded from 60 mg), Intravenous, 3 TIMES DAILY, 3 doses, First dose (after last reorder) on 01/20/19 at 0900, Last dose on 01/20/19 at 2100 0820 (Given - Provider: Delia Titus RN)1508 (Given - Provider: Delia Titus RN)2048 (Given - Provider: Joy Tabor, CHRISTINE) nicotine (NICODERM CQ) 14 mg/24 hr patch 14 mg (CANCELED)(Linked Group 1) 14 mg (1 patch), Transdermal, Administer over 24 Hours, DAILY, First dose on 01/19/19 at 0900, Until Discontinued, Routine 0813 (Given - Provider: Delia Titus RN) nicotine (NICODERM CQ) 21 mg/24 hr patch 21 mg(Linked Group 2) 21 mg (1 patch), Transdermal, DAILY, First dose on 01/20/19 at 1030, Until Discontinued, Routine 1013 (Patch Applied - Provider: Delia Titus RN)2008 (Patch Applied - Provider: Joy Tabor RN) 0853 (Patch Applied - Provider: Karen Young RN) 0813 (Patch Applied - Provider: Karen Young RN) nicotine (NICODERM CQ) 21 mg/24 hr patch Patch Removal(Linked Group 2) Transdermal, DAILY, First dose on Mon01/21/19 at 1015, Until Discontinued, Remove nicotine 21 mg/24 hr patch 2008 (Patch Removed - Provider: Joy Tabor RN - Comment: patch fell off per pt report; disposed of by RN) 1015 (Patch Removed - Provider: Ela Enriquez RN) 0900 (Patch Removed - Provider: Karen Young RN) nicotine (NICODERM CQ) 21 mg/24 hr patch Patch Verification(Linked Group 2) Transdermal, 2 TIMES DAILY, First dose on Mon01/20/19 at 2215, Until Discontinued, Verify nicotine 21 mg/24 hr patch 2008 (Patch (dose and location) verified - Provider: Joy Tabor RN - Comment: patch fell off per pt report; disposed of by RN) 0900 (Patch (dose and location) verified - Provider: Ela Enriquez RN)2100 (Patch (dose and location) verified - Provider: Joy Tabor RN) 0900 (Patch (dose and location) verified - Provider: Karen Young RN) pantoprazole (PROTONIX) tablet 40 mg 40 mg, Oral, DAILY, First dose on Mon01/19/19 at 0630, Until Discontinued, DO NOT CRUSH OR OPEN 0811 (Given - Provider: Delia Titus RN) 0837 (Given - Provider: Karen Young RN) 0810 (Given - Provider: Karen Young RN) predniSONE (DELTASONE) tablet 40 mg 40 mg, Oral, DAILY, First dose on Mon01/21/19 at 0900, Until Discontinued, Routine 0836 (Given - Provider: Karen Young RN) 0810 (Given - Provider: Karen Young RN) pregabalin (LYRICA) capsule 200 mg 200 mg, Oral, 3 TIMES DAILY, First dose (after last reorder) on 01/19/19 at 1430, Until Discontinued, Routine 0811 (Given - Provider: Delia Titus RN)1237 (Given - Provider: Delia Titus RN)1635 (Given - Provider: Mely Rachel RN) 0835 (Given - Provider: Karen Young RN)1207 (Given - Provider: Karen Young RN)1724 (Given - Provider: Karen Young RN) 0810 (Given - Provider: Karen Young RN)1223 (Given - Provider: Karen Young RN)1300 (Due) QUEtiapine (SEROquel) tablet 300 mg 300 mg, Oral, NIGHTLY, First dose on Mon01/18/19 at 2240, Until Discontinued, Routine 2007 (Given - Provider: Joy Tabor RN) 2000 (Given - Provider: Joy Tabor RN) sodium chloride 0.9 % (flush) flush 5 mL 5 mL, Intravenous, 2 TIMES DAILY, First dose on Mon01/18/19 at 2235, Until Discontinued, Routine 0822 (Given - Provider: Delia Titus RN)2009 (Given - Provider: Joy Tabor RN) 0900 (Given - Provider: Karen Young RN)2004 (Given - Provider: Joy Tabor RN) 0817 (Given - Provider: Karen Young RN) PRN Medication Order 01/20/2019 01/21/2019 01/22/2019 acetaminophen (TYLENOL) tablet 500 mg 500 mg, Oral, EVERY 6 HOURS PRN, Starting on Mon01/18/19 at 2233, Until Mon01/22/19 at 1600, Pain, Maximum dose of acetaminophen is 4000 mg from all sources in 24 hours., Routine 1748 (Given - Provider: Delia Titus RN) 1425 (Given - Provider: Sherly Salcedo RN) 1254 (Given - Provider: Karen Young RN) albuterol (PROVENTIL) nebulizer solution 2.5 mg 2.5 mg, Nebulization, EVERY 2 HOURS PRN, Starting on Mon01/19/19 at 0819, Until Mon01/22/19 at 1600, Wheezing, Shortness of Breath, Routine calcium carbonate (Tums) chewable tablet 1,000 mg 1,000 mg (2 tablet), Oral, 3 TIMES DAILY PRN, Starting on Mon01/18/19 at 2233, Until Mon01/22/19 at 1600, Heartburn, Routine ibuprofen (ADVIL;MOTRIN) tablet 600 mg 600 mg, Oral, EVERY 8 HOURS PRN, Starting on Mon01/18/19 at 2233, Until Mon01/22/19 at 1600, Pain, Administer orally with milk or food to minimize GI irritation , Routine 08 (Given - Provider: Karen Young RN) lidocaine (XYLOCAINE) 10 mg/mL (1 %) injection 3 mg 3 mg (0.3 mL), Subcutaneous, ONCE PRN, 1 dose, Starting on Mon01/18/19 at 2233, Until Mon01/22/19 at 1600, for discomfort with PIV insertion, Routine melatonin tablet 6 mg 6 mg, Oral, NIGHTLY PRN, Starting on Mon01/18/19 at 2233, Until Mon01/22/19 at 1600, insomnia, Routine 2004 (Given - Provider: Joy Tabor RN) prochlorperazine (COMPAZINE) tablet 10 mg 10 mg, Oral, EVERY 6 HOURS PRN, Starting on Mon01/19/19 at 0606, Until Mon01/22/19 at 1600, Nausea, Maximum dose: 50 mg / 24 hrs, Routine sodium chloride 0.9 % (flush) flush 5-20 mL 5-20 mL, Intravenous, EVERY 1 MIN PRN, Starting on Mon01/18/19 at 2233, Until Mon01/22/19 at 1600, flush, Flush pertains to all indwelling lines. Flush per protocol found in the job aid using the link provided on this medication record., Routine Linked Groups Order Group 1: nicotine (NICODERM CQ) 14 mg/24 hr patch 14 mg (CANCELED)Jump to med 14 mg (1 patch), Transdermal, Administer over 24 Hours, DAILY, First dose on Mon01/19/19 at 0900, Until Discontinued, Routine And nicotine (NICODERM CQ) 14 mg/24 hr patch Patch Verification (CANCELED) Transdermal, 2 TIMES DAILY, First dose on Mon01/19/19 at 0800, Until Discontinued, Verify nicotine 14 mg/24 hr patch. And nicotine (NICODERM CQ) 14 mg/24 hr patch Patch Removal (CANCELED) Transdermal, DAILY, First dose on 01/19/19 at 2000, Until Discontinued, Remove nicotine 14 mg/24 hr patch Group 2: nicotine (NICODERM CQ) 21 mg/24 hr patch 21 mgJump to med 21 mg (1 patch), Transdermal, DAILY, First dose on 01/20/19 at 1030, Until Discontinued, Routine And nicotine (NICODERM CQ) 21 mg/24 hr patch Patch VerificationJump to med Transdermal, 2 TIMES DAILY, First dose on 01/20/19 at 2215, Until Discontinued, Verify nicotine 21 mg/24 hr patch And nicotine (NICODERM CQ) 21 mg/24 hr patch Patch RemovalJump to med Transdermal, DAILY, First dose on 01/21/19 at 1015, Until Discontinued, Remove nicotine 21 mg/24 hr patch documented in this encounter Care Teams Bridge Engineer Relationship Specialty Start Date End Date Travis Castaneda MD [address] [place] [id number] PCP - General Internal Medicine 10/29/18 09/27/23 documented as of this encounter
--- OUTSIDE RECORDS SUMMARY | 2024-02-29 09:02 | XMS_ITS | Encounter Summary ---
Author Organization [facility] Address [facility] [place] [address] Care Team Providers Care District Customs Director Name Role Phone Travis Castaneda MD Primary Care Provider [phone] Encounter Details Date Type Department Care Team (Late st Contact Info) Description 01/21/2019 [place] [phone] Anjum Sharp MD [facility] [place] [address] Hypoxia; Multiple pulmonary nodules Social History Tobacco Use Types Packs/Day Years Used Date Smoking Tobacco: Never Assessed Sex and Gender Information Value Date Recorded Sex Assigned at Not on file Gender Identity Not on file Sexual Orientation Not on file documented as of this encounter Plan of Treatment Upcoming Encounters Date Type Department Care Team (Late st Contact Info) Description 03/18/2024 8:30 AM EST Appointment Pulmonology at [place] [phone] 03/18/2024 9:30 AM EST Office Visit Pulmonology at [place] [phone] Hetal Ojeda MD [facility] [address] documented as of this encounter Results * [...] and treat asthma.?? Guidelines from a 2011 [place] [employer] (ATS) executive summary on the [...] this encounter Visit Diagnoses Diagnosis Hypoxia Hypoxemia Multiple pulmonary nodules Other nonspecific abnormal finding of lung field Hypoxia Hypoxemia documented in this encounter Care Teams District Customs Director Relationship Specialty Start Date End Date Travis Castaneda MD [address] [place] [id number] PCP - General Internal Medicine 10/29/18 09/27/23 documented as of this encounter
--- OUTSIDE RECORDS SUMMARY | 2024-02-29 09:02 | XMS_ITS | Encounter Summary ---
Author Organization [facility] Address [facility] [address] [place] [id number] Care Team Providers Care Med Asst Name Role Phone Travis Castaneda MD Primary Care Provider [phone] Encounter Details Date Type Department Care Team (Late st Contact Info) Description 02/07/2019 Telephone Infectious Disease at [place] [phone] Nina Geller, RN [facility] [place] [address] Social History Tobacco Use Types Packs/Day Years [...] 03/18/2024 8:30 AM EST Appointment [place] [phone] 03/18/2024 9:30 AM EST [place] [phone] Hetal Ojeda MD [facility] [place] [address] documented as of this encounter Visit Diagnoses Not on filedocumented in this encounter Care Teams Med Asst Relationship Specialty Start Date End Date Travis Castaneda MD [address] [place] [address] PCP - General Internal Medicine 10/29/18 09/27/23 documented as of this encounter
--- OUTSIDE RECORDS SUMMARY | 2024-02-29 09:02 | XMS_ITS | Encounter Summary ---
Author Organization [facility] Address [facility] [place] [address] Care Team Providers Care Emergency Medicine Physician Name Role Phone Travis Castaneda MD Primary Care Provider [phone] Encounter Details Date Type Department Care Team (Late st Contact Info) Description 10/16/2019 12:05 AM EDT Ancillary Procedure Radiology Library at [facility] [place] [phone] Travis Castaneda MD [address] [place] [address] Social History Tobacco Use Types [...] 03/18/2024 8:30 AM EST [place] [phone] 03/18/2024 9:30 AM EST [place] [phone] Hetal Ojeda MD [facility] [place] [address] documented as of this encounter Procedures Procedure Name Priority Date/Time Associated Diagnosis Comments FILM LIBRARY STORAGE ONLY DX CHEST Routine 10/16/2019 12:05 AM EDT documented in this encounter Results * Film Library- Storage Only DX Chest (10/16/2019 12:05 AM EDT) Narrative SNEHA - 04/01/2020 10:01 AM EST This exam is auto-finalizing. It's purpose is for storage only. Travis Castaneda MD IMG FILM LIBRARY ORD ERABLES Performing Organization Address City/State/[facility] Co de Phone Number [place], [place] documented in this encounter Visit Diagnoses Not on filedocumented in this encounter Care Teams Emergency Medicine Physician Relationship Specialty Start Date End Date Travis Castaneda MD [address] [place] [address] PCP - General Internal Medicine 10/29/18 09/27/23 documented as of this encounter
--- OUTSIDE RECORDS SUMMARY | 2024-02-29 09:02 | XMS_ITS | Encounter Summary ---
Author Organization [facility] Address [facility] [place] [address] Care Team Providers Care Instrument Repair Specialist Name Role Phone Travis Castaneda MD Primary Care Provider [phone] Reason for Visit * Reason Onset Date Comments Other 01/25/2019 Transportation Encounter Details Date Type Department Care Team (Late st Contact Info) Description 01/25/2019 Telephone Pulmonology at [facility] [place] [phone] Dawood Leyva RN Other (Transportation) Social History Tobacco Use Types Packs/Day Years Used Date Smoking Tobacco: Never Assessed Sex and Gender Information Value Date Recorded Sex Assigned at Not on file Gender Identity Not on file Sexual Orientation Not on file documented as of this encounter Miscellaneous Notes * Telephone Encounter - Dawood Leyva, RN - 01/25/2019 1:46 PM EDT Was notified from pulmonary secretaries that patient had called in relationship to appointment scheduled for 01/28/[address] Sharp. Patient had requested that staff set up transportation for himto arrive to hospital. As per check in chart, patient prior had transportation via [employer]. Called [employer], and was notified that patient needs to call, as [place] Medicaid will be required to give authorization. Was also told that patient had been told this prior. Called and discussed with TAWNYA Lutz ASSEMBLER PIANO and was notified that patient would need to set up ride due to medicaid requirements for return trip as well. Patient could contact his Medicaid Worker in an attempt to get approval, but Medicaid would not be able to work with staff for this approval without involvement of patient. Called and attempted to relay this to the patient. LMOM giving updated contact phone number for [facility]. Requested call back from patient. documented in this encounter Plan of Treatment Upcoming Encounters Date Type Department Care Team (Late st Contact Info) Description 03/18/2024 8:30 AM EST Appoint[place] [address] 03/18/2024 9:30 AM EST [place] [phone] Hetal Ojeda MD [facility] [place] [address] documented as of this encounter Visit Diagnoses Not on filedocumented in this encounter Care Teams Instrument Repair Specialist Relationship Specialty Start Date End Date Travis Castaneda MD [address] [place] [address] PCP - General Internal Medicine 10/29/18 09/27/23 documented as of this encounter
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
--- OUTSIDE RECORDS SUMMARY | 2024-02-29 09:03 | XMS_ITS | Encounter Summary ---
Author Organization [facility] Address [address] [place] [address] Care Team Providers Care Rn Practitioner Name Role Phone Travis Castaneda MD Primary Care Provider [phone] Reason for Visit * (Routine/Next Available) - Receiving Office to Obtain Authorization Specialty Diagnoses / Procedures Referred By Gulshan arguelles Referred To Contact Procedures XR OUTSIDE IMAGES CHEST Imaging, External Referral ID Status Reason Start Date Expiration Date Visits Requested Visits Authorized [id number] Receiving Office to Obtain Authorization 12/21/2021 1 1 Encounter Details Date Type Department Care Team (Latest Contact Info) Description 12/21/2021 13:17 EDT - 12/21/2021 23:59 EDT Hospital Encounter [facility] Secondary Reads [place] Discharge Disposition: Home or Self Care Social History Tobacco Use Types Packs/Day Years Used Date Smoking Tobacco: Every Day Cigarettes Smokeless Tobacco: Never Alcohol Use Standard Drinks/Week Comments No 0 (1 standard drink = 0.6 oz pur e alcohol) quit PHQ-2 Answer Date Recorded PHQ-2 SUBTOTAL 0 04/08/2020 Interpersonal Safety Answer Date Record ed Physically Hurt Never 12/01/2019 Verbally Threaten Not on file 12/01/2019 Sex and Gender Information Value Date Recorded Sex Assigned at Not on file Gender Identity Male 04/10/2020 10:26 EST Sexual Orientation Not on file COVID-19 Exposure Response Date Recorded In the last 10 days, have yo u been in contact with someone who was confirmed or suspected to have Coronavirus/COVID-19? Unable to assess 12/21/2021 13:50 EDT documented as of this encounter Functional Status Functional Status Response Date of Assess ment Are you deaf or do you have serious difficulty h earing? No 04/08/2020 Are you blind or do you have serious difficulty seeing, even when wearing glasses? No 04/08/2020 Do you have serious difficul ty walking or climbing stairs? (5 years old or older) No 04/08/2020 Do you have difficulty dress ing or bathing? (5 years old or older) No 04/08/2020 Because of a physical, menta l, or emotional condition, do you have difficulty doing errands alone such as visiting a doctor's office or shopping? (15 years old or older) No 04/08/2020 Cognitive Status Response Date of Assessm ent Because of a physical, menta l, or emotional condition, do you have serious difficulty concentrating, remembering, or making decisions? (5 years old or older) No 04/08/2020 documented as of this encounter Medications at Time of Discharge Medication Sig Dispensed Refills Start Date End Date albuterol (PROAIR HFA) 90 mcg/actuation inhaler Inhale 2 Puffs as directed as needed. albuterol-ipratropium (COMBIVENT) 18-103 mcg/actuation inhaler Inhale 2 Puffs as directed 4 times daily. DULoxetine (CYMBALTA) 60 mg capsule Take 60 mg by mouth daily. fluticasone propionate (FLOVENT) 220 mcg/actuation inhaler Inhale 220 mcg as directed 2 times daily. glecaprevir-pibrentasvir (MAVYRET) 100-40 mg tablet Take 3 Tabs by mouth daily. guaiFENesin (ROBITUSSIN) 100 mg/5 mL liquid Take 200 mg by mouth every 4 hours. lisinopril (PRINIVIL, ZESTRIL) 20 mg tablet Take 20 mg by mouth daily. Reported on 04/12/2016 LORazepam (ATIVAN) 1 mg tablet Take 1 mg by mouth 2 times daily. methadone (DOLOPHINE) 10 mg tablet Take 132 mg by mouth every 4 hours as needed for Pain. nicotine (NICODERM CQ) 21 mg/[address] 21 mg onto the skin daily. pantoprazole (PROTONIX) 20 mg tablet Take 40 mg by mouth daily. polyethylene glycol (MIRALAX) 17 gram/dose powder Take 17 g by mouth daily. Reported on 04/12/2016 pregabalin (LYRICA) 100 mg capsule Take 1 Cap by mouth 3 times daily. Do not take your 200mg capsules Daily Max: 300 mg 21 Cap 04/10/2020 QUEtiapine (SEROQUEL XR) 400 mg XR tablet Take 300 mg by mouth at bedtime. 01/04/2017 umeclidinium-vilanteroL (ANORO ELLIPTA) 62.5-25 mcg/actuation inhaler Inhale 1 Puff as directed daily. zonisamide (ZONEGRAN) 100 mg capsule Take 2 Caps by mouth daily. 1 Cap 04/11/2020 documented as of this encounter Discharge Disposition Disposition Code Departure Means Destination Home or Self Care documented in this encounter Plan of Treatment Not on file documented as of this encounter Procedures Procedure Name Priority Date/Time Associated Diagnosis Comments XR OUTSIDE IMAGES CHEST Routine 12/21/2021 13:17 EDT documented in this encounter Results * XR OUTSIDE IMAGES CHEST (12/21/2021 13:17 EDT) Narrative 12/21/2021 13:17 EDT This is a non-reportable exam. External Imaging IMG OTHER IMAGING OR DERABLES documented in this encounter Visit Diagnoses Not on filedocumented in this encounter Care Teams Rn Practitioner Relationship Specialty Start Date End Date Travis Castaneda MD [address] [place] [address] PCP - General 04/02/18 documented as of this encounter
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
--- OUTSIDE RECORDS SUMMARY | 2024-02-29 09:03 | XMS_ITS | Encounter Summary ---
Author Organization [facility] Address [facility] [place] [address] Care Team Providers Care Service Delivery Consultant Name Role Phone Cassie Roberts MD Primary Care Provider [phone] Encounter Details Date Type Department Care Team (Late st Contact Info) Description 10/27/2018 Interpretation Only [address] [address] Unknown None Social History Tobacco Use Types Packs/Day Years Used Date Smoking Tobacco: Never Assessed Sex and Gender Information Value Date Recorded Sex Assigned at Not on file Gender Identity Not on file Sexual Orientation Not on file documented as of this encounter Plan of Treatment Upcoming Encounters Date Type Department Care Team (Late st Contact Info) Description 03/18/2024 8:30 AM EST Appointment [place] [address] 03/18/2024 9:30 AM EST Office [place] [address] Hetal Ojeda MD [facility] [address] [place]MONARY [place] [address] documented as of this encounter Procedures Procedure Name Priority Date/Time Associated Diagnosis Comments XR CHEST PA AND LATERAL Routine 10/27/2018 1:06 AM EDT documented in this encounter Results * XR Chest PA & Lateral (Generic) (10/27/2018 1:06 AM EDT) Anatomical Region Laterality Modality Chest N/A Radiographic Lisa ging 10/27/2018 1:06 AM EDT Impressions 10/27/2018 1:38 AM EDT Pulmonary vascular congestion and interstitial edema. Sequela of COPD. Thank you for letting us participate in the care of this patient. For questions regarding this report, please contact the number below. ? Narrative 10/27/2018 1:38 AM EDT EXAMINATION: XR Chest 2 Views CLINICAL HISTORY: COPD, SOB, hypoxia TECHNIQUE: Frontal and lateral COMPARISON: April 07, 2018 FINDINGS: Lungs appear hyperlucent and hyperaerated with flattening of the diaphragms and increase in AP diameter of the thorax with prominent retrosternal clear space. Pulmonary vascular congestion with interstitial prominence. Mild streaky subsegmental atelectatic changes and/or scarring. Question trace pleural effusions. No pneumothorax or confluent airspace opacity seen. Cardiomediastinal contours within normal limits and without significant change appreciated. Procedure Note Gonsalo Hilliard MD - 10/27/2018 EXAMINATION: XR Chest 2 Views CLINICAL HISTORY: COPD, SOB, hypoxia TECHNIQUE: Frontal and lateral COMPARISON: April 07, 2018 FINDINGS: Lungs appear hyperlucent and hyperaerated with flattening of thediaphragms and increase in AP diameter of the thorax with prominent retrosternal clearspace. Pulmonary vascular congestion with interstitial prominence. Mild streaky subsegmental atelectatic changes and/or scarring. Question trace pleural effusions. No pneumothorax or confluent airspace opacity seen.Cardiomediastinal contours within normal limits and without significant changeappreciated. IMPRESSION Pulmonary vascular congestion and interstitial edema. Sequela of COPD. Thank you for letting us participate in the care of this patient. Forquestions regarding this report, please contact the number below. Unknown IMG DX ORDERABLES documented in this encounter Visit Diagnoses Not on filedocumented in this encounter Care Teams Service Delivery Consultant Relationship Specialty Start Date End Date Cassie Roberts MD [address] [place] [address] PCP - General 02/14/14 10/28/18 documented as of this encounter
--- OUTSIDE RECORDS SUMMARY | 2024-02-29 09:03 | XMS_ITS | Encounter Summary ---
Author Organization [facility] Address [address] [place] [address] Care Team Providers Care Nib Finisher Name Role Phone Travis Castaneda MD Primary Care Provider [phone] Encounter Details Date Type Department Care Team (Latest Contact Info) Description 12/21/2021 Travel Social History Tobacco Use Types Packs/Day [...] No 04/08/2020 documented as of this encounter Plan of Treatment Not on file documented as of this encounter Visit Diagnoses Not on filedocumented in this encounter Care Teams Nib Finisher Relationship Specialty Start Date End Date Travis Castaneda MD [address] [place] [address] PCP - General 04/02/18 documented as of this encounter
--- OUTSIDE RECORDS SUMMARY | 2024-02-29 09:03 | XMS_ITS | Encounter Summary ---
Author Organization [facility] Address [facility] [place] [address] Care Team Providers Care Rubber Cutter And Shape Carver Name Role Phone Travis Castaneda MD Primary Care Provider [phone] Encounter Details Date Type Department Care Team (Late st Contact Info) Description 11/01/2018 Interpretation Only [address] [address] Shadi Rivera MD [address] [place] [address] [place] [address] Social History Tobacco Use Types Packs/Day Years Used Date Smoking Tobacco: Never Assessed Sex and Gender Information Value Date Recorded Sex Assigned at Not on file Gender Identity Not on file Sexual Orientation Not on file documented as of this encounter Plan of Treatment Upcoming Encounters Date Type Department Care Team (Late st Contact Info) Description 03/18/2024 8:30 AM EST [place] [address] 03/18/2024 9:30 AM EST [place] [address] Hetal Ojeda MD [facility] [place] [address] documented as of this encounter Procedures Procedure Name Priority Date/Time Associated Diagnosis Comments XR CHEST ONE VIEW Routine 11/01/2018 11: 06 AM EDT documented in this encounter Results * XR Chest PA or AP 1 view (11/01/2018 11:06 AM EDT) Anatomical Region Laterality Modality Chest N/A Radiographic Lisa ging 11/01/2018 11:0 6 AM EDT Impressions 11/01/2018 11:24 AM EDT 1. Interval placement of endotracheal tube with tip 5.0 cm superior to josh. No pneumothorax seen on this supine exam. 2. Pulmonary vascular congestion and interstitial edema persists. 3. Bibasilar patchy opacities, likely subsegmental atelectatic changes vs aspiration. Thank you for letting us participate in the care of this patient. For questions regarding this report, please contact the number below. ? Narrative 11/01/2018 11:24 AM EDT EXAMINATION: XR Chest 1 View Portable CLINICAL HISTORY: intubation TECHNIQUE: AP portable supine chest at 1047; Limited positioning; left lower lobe not included on film. Patient is mildly rotated. COMPARISON: Multiple priors, most recent earlier exam on 11/01/2018 FINDINGS: Interval placement of endotracheal tube with tip 5.0 cm superior to the josh. A NG tube is present with the tip projecting below the left hemidiaphragm, but not included on the film. No large pneumothorax seen on this supine exam. Small effusions not excluded. Pulmonary vascular congestion and interstitial prominence persist. Streaky and patchy bibasilar opacities, likely atelectatic changes at the lung bases. Elevation of the hemidiaphragms. No acute osseous lesion. Procedure Note Jessica Hernandez MD - 11/01/2018 EXAMINATION: XR Chest 1 View Portable CLINICAL HISTORY: intubation TECHNIQUE: AP portable supine chest at 1047; Limited positioning; leftlower lobe not included on film. Patient is mildly rotated. COMPARISON: Multiple priors, most recent earlier exam on 11/01/2018 FINDINGS: Interval placement of endotracheal tube with tip 5.0 cm superiorto the josh. A NG tube is present with the tip projecting below the left hemidiaphragm, but not included on the film. No large pneumothorax seen onthis supine exam. Small effusions not excluded. Pulmonary vascular congestion and interstitial prominence persist. Streakyand patchy bibasilar opacities, likely atelectatic changes at the lungbases. Elevation of the hemidiaphragms. No acute osseous lesion. IMPRESSION 1. Interval placement of endotracheal tube with tip 5.0 cm superior tocarina. No pneumothorax seen on this supine exam. 2. Pulmonary vascular congestion and interstitial edema persists. 3. Bibasilar patchy opacities, likely subsegmental atelectatic changesvs aspiration. Thank you for letting us participate in the care of this patient. Forquestions regarding this report, please contact the number below. Shadi Rivera MD IMG DX ORDERABLES documented in this encounter Visit Diagnoses Not on filedocumented in this encounter Care Teams Rubber Cutter And Shape Carver Relationship Specialty Start Date End Date Travis Castaneda MD [address] [place] [address] PCP - General Internal Medicine 10/29/18 09/27/23 documented as of this encounter
--- OUTSIDE RECORDS SUMMARY | 2024-02-29 09:03 | XMS_ITS | Encounter Summary ---
Author Organization Formerly [facility] Address [facility] [place] [address] Care Team Providers Care Copper Roller Handler Printing Name Role Phone Travis Castaneda MD Primary Care Provider [phone] Encounter Details Date Type Department Care Team (Late st Contact Info) Description 11/01/2018 Interpretation Only [address] [address] Shadi Rivera MD [address] [place] [address] [place] [address] Social History Tobacco Use Types Packs/Day Years Used Date Smoking Tobacco: Never Assessed Sex and Gender Information Value Date Recorded Sex Assigned at Not on file Gender Identity Not on file Sexual Orientation Not on file documented as of this encounter Plan of Treatment Upcoming Encounters Date Type Department Care Team (Late st Contact Info) Description 03/18/2024 8:30 AM EST Appointment [place] [address] 03/18/2024 9:30 AM EST Office Visit [place] [address] Hetal Ojeda MD [facility] [place] [address] documented as of this encounter Procedures Procedure Name Priority Date/Time Associated Diagnosis Comments XR CHEST ONE VIEW Routine 11/01/2018 10: 15 AM EDT documented in this encounter Results * XR Chest PA or AP 1 view (11/01/2018 10:15 AM EDT) Anatomical Region Laterality Modality Chest N/A Radiographic Lisa ging 11/01/2018 10:1 5 AM EDT Impressions 11/01/2018 10:44 AM EDT 1. Worsening bibasilar opacities, consider atelectasis, aspiration, pneumonia. 2. Worsening perihilar and interstitial opacities, consider interstitial edema, pneumonitis. 3. No evidence of pleural effusion or pneumothorax. Thank you for letting us participate in the care of this patient. For questions regarding this report, please contact the number below. ? Narrative 11/01/2018 10:44 AM EDT EXAMINATION: XR Chest 1 View Portable CLINICAL HISTORY: SOB, hypoxia TECHNIQUE: Portable AP upright chest COMPARISON: 10/28/2018. FINDINGS: No pneumothorax. No large effusion. Lungs: Unchanged emphysematous changes with increased lung volumes. Since prior exam, there is worsening patchy bibasilar opacities and increased perihilar interstitial markings. Cardiomediastinal structures are partially obscured, although grossly unchanged. No acute osseous lesion. Procedure Note Jessica Hernandez MD - 11/01/2018 EXAMINATION: XR Chest 1 View Portable CLINICAL HISTORY: SOB, hypoxia TECHNIQUE: Portable AP upright chest COMPARISON: 10/28/2018. FINDINGS: No pneumothorax. No large effusion. Lungs: Unchanged emphysematous changes with increased lung volumes. Since prior exam, there is worsening patchy bibasilar opacities andincreased perihilar interstitial markings. Cardiomediastinal structures arepartially obscured, although grossly unchanged. No acute osseous lesion. IMPRESSION 1. Worsening bibasilar opacities, consider atelectasis, aspiration,pneumonia. 2. Worsening perihilar and interstitial opacities, consider interstitialedema, pneumonitis. 3. No evidence of pleural effusion or pneumothorax. Thank you for letting us participate in the care of this patient. Forquestions regarding this report, please contact the number below. Shadi Rivera MD IMG DX ORDERABLES documented in this encounter Visit Diagnoses Not on filedocumented in this encounter Care Teams Copper Roller Handler Printing Relationship Specialty Start Date End Date Travis Castaneda MD [address] [place] [address] PCP - General Internal Medicine 10/29/18 09/27/23 documented as of this encounter
--- OUTSIDE RECORDS SUMMARY | 2024-02-29 09:03 | XMS_ITS | Encounter Summary ---
Author Organization [facility] Address [address] [place] [address] Care Team Providers Care Power And Recovery Superintendent Name Role Phone Travis Castaneda MD Primary Care Provider [phone] Encounter Details Date Type Department Care Team (Late st Contact Info) Description 10/18/2021 Lab Requisition [facility] Pathology & Laboratory Medicine - [facility] [address] [place] [address] Outr Resulting Lab, Provider Social History Tobacco Use Types Packs/Day Years [...] 10:26 EST Sexual Orientation Not on file documented as of this encounter Functional Status [...] Procedure Name Priority Date/Time Associated Diagnosis Comments LEGIONELLA ANTIGEN DETECTION, URINE Routine 10/18/2021 18:15 EDT documented in this encounter Results * LEGIONELLA ANTIGEN DETECTION, URINE (10/18/2021 18:15 EDT) Legionella Antigen Detection Negative Negative 10/19/2021 18:57 EDT [facility] Urine 10/18/2021 18:1 5 EDT 10/19/2021 17:24 EDT Provider Outr Resulting Lab MICROBIOLOGY - GENERAL ORDERABLES Performing Organization Address City/State/[facility] Co de Phone Number [facility] [address] [place] [address] documented in this encounter Visit Diagnoses Not on filedocumented in this encounter Care Teams Power And Recovery Superintendent Relationship Specialty Start Date End Date Travis Castaneda MD [address] [place] [address] PCP - General 04/02/18 documented as of this encounter
--- OUTSIDE RECORDS SUMMARY | 2024-02-29 09:03 | XMS_ITS | Encounter Summary ---
Author Organization [facility] Address [address] [place] [address] Care Team Providers Care Petrography Teacher Name Role Phone Travis Castaneda MD Primary Care Provider [phone] Encounter Details Date Type Department Care Team (Late st Contact Info) Description 09/24/2021 Lab Requisition [facility] Pathology & Laboratory Medicine - [facility] [address] [place] [address] Outr Resulting Lab, Provider Social History Tobacco [...] Procedure Name Priority Date/Time Associated Diagnosis Comments LH Routine 09/23/2021 15:15 EDT FSH Routine 09/23/2021 15:15 EDT documented in this encounter Results * (ABNORMAL) LH (09/23/2021 15:15 EDT) Luteinizing Hormone <0.3(L) 1.5 - 9.3 mIU/mL 09/24/2021 19:31 EDT [facility] Blood VENOUS BLOOD / Unknown 09/23/2021 15:15 EDT 09/24/2021 17:03 EDT Provider Outr Resulting Lab CHEMISTRY & BLOOD GAS ORDERABLES Performing Organization Address City/[facility]/ZIP Co de Phone Number [facility] [address] [place] [address] * (ABNORMAL) FSH (09/23/2021 15:15 EDT) FSH <0.3(L) 1.4 - 18.1 mIU/mL 09/24/2021 19:31 EDT [facility] Blood VENOUS BLOOD / Unknown 09/23/2021 15:15 EDT 09/24/2021 17:03 EDT Provider Outr Resulting Lab CHEMISTRY & BLOOD GAS ORDERABLES Performing Organization Address City/[facility]/ZIP Co de Phone Number [facility] [address] [place] [address] documented in this encounter Visit Diagnoses Not on filedocumented in this encounter Care Teams Petrography Teacher Relationship Specialty Start Date End Date Travis Castaneda MD [address] [place] [address] PCP - General 04/02/18 documented as of this encounter
--- OUTSIDE RECORDS SUMMARY | 2024-02-29 09:03 | XMS_ITS | Encounter Summary ---
Author Organization [facility] Address [address] [place] [address] Care Team Providers Care Wooling Machine Operator Name Role Phone Travis Castaneda MD Primary Care Provider [phone] Encounter Details Date Type Department Care Team (Late st Contact Info) Description 02/13/2024 Lab Requisition [facility] Pathology & Laboratory Medicine - [facility] [address] [place] [address] Outr Resulting Lab, Provider Social History Tobacco [...] ACUTE HEPATITIS PROFILE Routine 02/12/2024 14:25 EDT documented in this encounter Results * HCV RNA DETECT QUANT (02/12/2024 14:25 EDT) [facility] HCV RNA Qualitative Undetected Undetected 02/14/2024 11:46 EDT [facility] Blood VENOUS BLOOD / Unknown 02/12/2024 14:25 EDT 02/13/2024 17:11 EDT Narrative [facility] - 02/14/2024 11:46 EDT The quantification range of this assay is 15 IU/mL to 100,000,000 IU/mL. Testing was performed using the Rose HCV test ([employer] with the rose 6800 System. Provider Outr Resulting Lab CHEMISTRY & BLOOD GAS ORDERABLES [facility] [address] [place] [address] * (ABNORMAL) ACUTE HEPATITIS PROFILE (02/12/2024 14:25 EDT) Pathologist [facility] Hep B Surface Ag Negative Negative 02/13/2024 19:16 T [facility] Hep C Antibody Reactive(A) Negative 19:16 T [facility] Comment: Supplemental testing for HCV RNA is ordered to rule out active HCV infection. Index value ??is >=1.00 and <11.00 Hepatitis A Antibody, IgM Negative Negative 02/13/2024 19:16 EDT [facility] Comment:The results of this assay can be falsely lowered due to the consumption of Biotin. Hepatitis B Core Ab, Total Negative Negative 02/13/2024 19:16 EDT [facility] Blood VENOUS BLOOD / Unknown 02/12/2024 14:25 EDT 02/13/2024 17:11 EDT Provider Outr Resulting Lab CHEMISTRY & BLOOD GAS ORDERABLES [facility] [address] [place], [place] [address] documented in this encounter Visit Diagnoses Not on filedocumented in this encounter Care Teams Wooling Machine Operator Relationship Specialty Start Date End Date Travis Castaneda MD [address] [place] [address] PCP - General 04/02/18 documented as of this encounter
--- OUTSIDE RECORDS SUMMARY | 2024-02-29 09:03 | XMS_ITS | Encounter Summary ---
Author Organization [facility] Address [facility] [place] [address] Care Team Providers Care Him Specialist Name Role Phone Cassie Roberts MD Primary Care Provider [phone] Encounter Details Date Type Department Care Team (Late st Contact Info) Description 10/28/2018 Interpretation Only [address] [address] Edvin Crowell MD [address] [place] [address] [place] [address] Social History Tobacco Use Types Packs/Day Years Used Date Smoking Tobacco: Never Assessed Sex and Gender Information Value Date Recorded Sex Assigned at Not on file Gender Identity Not on file Sexual Orientation Not on file documented as of this encounter Plan of Treatment Upcoming Encounters Date Type Department Care Team (Late st Contact Info) Description 03/18/2024 8:30 AM EST Appointment [place] [address] 03/18/2024 9:30 AM EST [place] [address] Hetal Ojeda MD [facility] [place] [address] documented as of this encounter Procedures Procedure Name Priority Date/Time Associated Diagnosis Comments XR CHEST PA AND LATERAL Routine 10/28/2018 9:06 AM EDT documented in this encounter Results * XR Chest PA & Lateral (Generic) (10/28/2018 9:06 AM EDT) Anatomical Region Laterality Modality Chest N/A Radiographic Lisa ging 10/28/2018 9:06 AM EDT Narrative 10/28/2018 9:52 AM EDT EXAMINATION: XR Chest 2 Views CLINICAL HISTORY: dyspnea TECHNIQUE: 2 views COMPARISON: October 27, 2018 FINDINGS: Pleura: No pneumothorax, No effusion Lungs: Unchanged emphysematous change with increased lung volumes. Patchy increased left retrocardiac opacities and linear markings. Prominent interstitial markings are also unchanged. Cardiomediastinal structures: Normal Bones: no fracture seen Impression 1. ??Unchanged COPD and vascular congestion 2. ??Patchy left basal opacities represent any combination of atelectasis or infection. Thank you for letting us participate in the care of this patient. For questions regarding this report, please contact the number below. ? Procedure Note Emili Pham MD - 10/28/2018 EXAMINATION: XR Chest 2 Views CLINICAL HISTORY: dyspnea TECHNIQUE: 2 views COMPARISON: October 27, 2018 FINDINGS: Pleura: No pneumothorax, No effusion Lungs: Unchanged emphysematous change with increased lung volumes. Patchy increased left retrocardiac opacities and linear markings.Prominent interstitial markings are also unchanged. Cardiomediastinal structures: Normal Bones: no fracture seen Impression 1. Unchanged COPD and vascular congestion 2. Patchy left basal opacities represent any combination of atelectasisor infection. Thank you for letting us participate in the care of this patient. Forquestions regarding this report, please contact the number below. Edvin Crowell MD IMG DX ORDERABLES documented in this encounter Visit Diagnoses Not on filedocumented in this encounter Care Teams Him Specialist Relationship Specialty Start Date End Date Cassie Roberts MD [address] [place] [address] PCP - General 02/14/14 10/28/18 documented as of this encounter
--- OUTSIDE RECORDS SUMMARY | 2024-02-29 09:03 | XMS_ITS | Encounter Summary ---
Author Organization [facility] Address [address] [place] [address] Care Team Providers Care Surveyor Name Role Phone Travis Castaneda MD Primary Care Provider [phone] Reason for Visit * (Routine/Next Available) - Receiving Office to Obtain Authorization Specialty Diagnoses / Procedures Referred By Gulshan arguelles Referred To Contact Procedures CT OUTSIDE IMAGES NEURO Imaging, External Referral ID Status Reason Start Date Expiration Date Visits Requested Visits Authorized [id number] Receiving Office to Obtain Authorization 12/21/2021 1 1 Encounter Details Date Type Department Care Team (Latest Contact Info) Description 12/21/2021 13:16 EDT Hospital Encounter [facility] Secondary Reads [place] Discharge Disposition: [...] Name Priority Date/Time Associated Diagnosis Comments CT OUTSIDE IMAGES NEURO Routine 12/21/2021 13:16 EDT documented in this encounter Results * CT OUTSIDE IMAGES NEURO (12/21/2021 13:16 EDT) Narrative 12/21/2021 13:16 EDT This is a non-reportable exam. External Imaging IMG OTHER IMAGING OR DERABLES documented in this encounter Visit Diagnoses Not on filedocumented in this encounter Care Teams Surveyor Relationship Specialty Start Date End Date Travis Castaneda MD [address] [place] [address] PCP - General 04/02/18 documented as of this encounter
--- OUTSIDE RECORDS SUMMARY | 2024-02-29 09:03 | XMS_ITS | Encounter Summary ---
Author Organization [facility] Address [address] [place] [address] Care Team Providers Care Vice President Of Business Development Name Role Phone Travis Castaneda MD Primary Care Provider [phone] Encounter Details Date Type Department Care Team (Late st Contact Info) Description 11/28/2023 Lab Requisition [facility] Pathology & Laboratory Medicine - [facility] [address] [place] [address] Outr Resulting Lab, Provider Social History Tobacco [...] Procedure Name Priority Date/Time Associated Diagnosis Comments PHENOBARBITAL Routine 11/28/2023 6:53 EDT documented in this encounter Results * (ABNORMAL) PHENOBARBITAL (11/28/2023 6:53 EDT) Phenobarbital 11.1(L) 15.0 - 40.0 ug/mL 11/28/2023 17:32 EDT [facility] Blood VENOUS BLOOD / Unknown 11/28/2023 6:53 EDT 11/28/2023 16:53 EDT Provider Outr Resulting Lab CHEMISTRY & BLOOD GAS ORDERABLES [facility] [address] [place] [address] documented in this encounter Visit Diagnoses Not on filedocumented in this encounter Care Teams Vice President Of Business Development Relationship Specialty Start Date End Date Travis Castaneda MD [address] [place] [address] PCP - General 04/02/18 documented as of this encounter
--- OUTSIDE RECORDS SUMMARY | 2024-02-29 09:03 | XMS_ITS | Encounter Summary ---
Author Organization [facility] Address [address] [place] [address] Care Team Providers Care Dynamometer Mechanic Name Role Phone Travis Castaneda MD Primary Care Provider [phone] Encounter Details Date Type Department Care Team (Late st Contact Info) Description 05/21/2020 Results Only Imaging [facility] Radiology Results [address] [place], [place] [address] Travis Castaneda MD [address] [place], [place] [id number] Social History Tobacco Use Types Packs/Day Years [...] Name Priority Date/Time Associated Diagnosis Comments CT HEAD WO CONTRAST 05/21/2020 8:50 EST documented in this encounter Results * CT HEAD WO CONTRAST (05/21/2020 8:50 EST) Anatomical Region Laterality Modality Head Computed Tomogra phy 05/21/2020 8:47 EST Narrative 05/21/2020 8:50 EST ? EXAM: CAT SCAN/HEAD WITHOUT CONTRAST ?EX. D/ (0842) ? CLINICAL INFORMATION: ? R51.9 HEADACHE ? INDICATION: R51.9 HEADACHE HEADACHE ? TECHNIQUE: Axial unenhanced CT imaging of the brain was obtained. ? COMPARISON: None. ? FINDINGS: No abnormal intra-articular axial fluid collections are ? seen. No evidence of cerebral herniation is detected. No abnormal ? mass effect is observed. The paranasal sinuses are clear. The mastoid ? air cells are clear. The orbits are unremarkable. ? No focal calvarial lesion is seen. The cortical ribbon is intact ? along the convexities. The deep hernández nuclei and thalami are ? symmetric. Intracranial white matter is grossly unremarkable. ? IMPRESSION: ? 1. No intracranial abnormality detected. ? REPORT SIGNED IN OTHER VENDOR SYSTEM 05/21/2020 ?Reported By: Edvin Good MD ? CC: ? Transcribed Date/Time: 05/21/2020 (0850) ? Osteopathy Doctor: ? Printed Date/Time: 05/21/2020 (0850) ? PAGE 1 ? Signed Report ? Procedure Note Edvin Good MD - 05/21/2020 EXAM: CAT SCAN/HEAD WITHOUT CONTRAST EX. D/ (0842) CLINICAL INFORMATION: R51.9 HEADACHE INDICATION: R51.9 HEADACHE HEADACHE TECHNIQUE: Axial unenhanced CT imaging of the brain was obtained. COMPARISON: None. FINDINGS: No abnormal intra-articular axial fluid collections are seen. No evidence of cerebral herniation is detected. No abnormal mass effect is observed. The paranasal sinuses are clear. Themastoid air cells are clear. The orbits are unremarkable. No focal calvarial lesion is seen. The cortical ribbon is intact along the convexities. The deep hernández nuclei and thalami are symmetric. Intracranial white matter is grossly unremarkable. IMPRESSION: 1. No intracranial abnormality detected. REPORT SIGNED IN OTHER VENDOR SYSTEM 05/21/2020 Reported By: Edvin Good MD CC: Transcribed Date/Time: 05/21/2020 (0850) Osteopathy Doctor: Printed Date/Time: 05/21/2020 (0850) PAGE 1 Signed Report Travis Castaneda MD IMG CT ORDERABLES documented in this encounter Visit Diagnoses Not on filedocumented in this encounter Care Teams Dynamometer Mechanic Relationship Specialty Start Date End Date Travis Castaneda MD [address] [place] [address] PCP - General 04/02/18 documented as of this encounter
--- OUTSIDE RECORDS SUMMARY | 2024-02-29 09:03 | XMS_ITS | Encounter Summary ---
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 who is currently withdrawing from alcohol. He has a history of complicated withdrawal and has required ICU interventions including intubation for airway protection and propofol sedation. He is currently extubated and stable. He has started on a phenobarb taper to be completed today. Psych has seen the patient and he has been started on his home dose of methadone. ?? Plan: ?? Phenobarb taper completed today ?? Psych following ?? Nicotine patch ?? Continue seroquel tonight ?? Cont to hold home dose abilify ?? Continue home Methadone ?? Nebs ?? May require restraints for safety ?? Physical Therapy referral ?? DVT Prophylaxis - heparin ?? If currently a smoker - advised about smoking cessation and will provide smoking cessation material and support. ?? Pneumovax and Influenza Immunizations given as needed. ?? Discussed Advanced Directives and Code Status. The patient wishesto be Full Code. ?? Dispo: Likely home monday Team Pager( Coverage 21/11): #[phone] PCP: Cassie Roberts MD [phone] Attestation: IPI Certification I certify that I am a D-H credentialed attending provider with admitting privileges and that the patient meets or has met medical necessity to require an inpatient IPI level of care meeting a minimumof two midnights or is on the [facility] inpatient only procedure list (status C) due to: etoh w/d requiring med titration Eleanor Avitia MD 11/24/2018 * Aaron Mancini - 11/23/2018 7:00 PM EDT [employer] Encounter Note Patient Name: Garret Barros : [id number] MR#: [id number] Admit Date: 11/17/2018 5:40 PM Hospital Day 7 days Narrative: Entered with Chaplain Staton and saw Mr. Barros sitting in bed. Conversed about patient's hospitalization, family relationships, and his hopes for the future. Assessment: Patient seemed to be struggling significantly with his hospitalization. His head was hanging and heseemed extremely exhausted during our visit. Patient also is having difficulty in his personal relationships. Looking forward patient seemed to have a clear idea of what decisions he would need to make to regain his health. Intervention and Outcome: Explored patient's experience in the hospital. Patient expressed some exasperation at asking for his inhaler but not receiving it. Patient also shared some frustration regarding needing help to use the commode or simply to walk around. Patient indicated that he felt he was capable on his own and didn't need help, yet wanted to abide by the nurse's instructions. Patient shared despairingly that the pain was overwhelming and that he would not mind if it [his life] just ended right now. Patient also said he was in so much pain that I would put a gun to my head and kill myself if I could. Delved into patient's family relationships. Patient remarked that most of his family members drankthemselves to . He did mention that his daughter meant a lot to him. He said wanted to get back into her life and also that she is not very proud of me. Upon inquiring about any other relationships he had patient shared that he is currently living with some friends but has no other familyconnections other than a sister that lives in [place], but he did not wish to worry her about his hospitalization. Explored patient's hopes for life after discharge. Patient expressed a clear desire to go to rehab both for his troubles with alcohol and physical therapy. Patient also shared that he has been through this process before and could clearly outline steps such as: getting sober, getting back to work (he has a particular job in mind), saving money, becoming a bigger part of his daughter's life. When expressing this plan, the patient seemed both clear on his path and also tired of having to do this all one more time. 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 Follow-up: Plan to continue to support patient during hospitalization. Time in Direct Care: 45mins Aaron Mancini 11/24/2018 * Gia Birmingham MD - 11/23/2018 1:27 PM EDT Hospital Medicine Attending Daily Progress Note Admit Date: 11/17/2018 Hospital Day 6 days Active Hospital Problems Diagnosis ??? Alcohol withdrawal ??? Opiate withdrawal Resolved Hospital Problems No resolved problems to display. PMH There are no active non-hospital problems to display for this patient. Inpatient Medications: Scheduled ??? [START ON 11/24/2018] PHENobarbital 30 mg Oral Daily ??? DULoxetine 60 mg Oral Daily ??? lidocaine 1 patch Transdermal Daily And ??? lidocaine 1 patch Transdermal Q24H ??? nicotine 1 patch Transdermal Daily And ??? Patch Verification 1 patch Transdermal BID And ??? nicotine 1 patch Transdermal Daily ??? QUEtiapine 200 mg Oral Nightly ??? methadone (Methadose) oral liquid 120 mg Oral Daily ??? glycopyrrolate 0.1 mg Intravenous BID ??? heparin (Porcine) 5,000 Units Subcutaneous Q8H ADOLFO Continuous infusions: PRN: ipratropium-albuterol Interval History:denies sob, chest pain, abd pain Physical Exam Vitals Range last 24 hrs Temperature Temp: [36.7 ??C (98.1 ??F)-37 ??C (98.6 ??F)] Heart Rate Heart Rate: [58-87] Blood Pressure BP: (133-152)/(84-88) Respiratory Rate Resp: [18] SpO2 SpO2: [88 %-95 %] Intake/Output Summary (Last 24 hours) at 11/23/2018 1327 Last data filed at 11/23/2018 1305 Gross per 24 hour Intake 1130 ml Output 450 ml Net 680 ml Patient Vitals for the past 168 hrs: Weight 11/19/18 2300 70.2 kg (154 lb 12.2 oz) 11/17/18 1800 73.2 kg (161 lb 6 oz) Body mass index is 23.53 kg/m??. Physical Exam GEN - awake, alert and oriented times three HEENT - Oropharynx moist without lesions Lungs - cta bilat, good resp effort Heart - RRR, S1,S2, no murmur, gallop or rub Abdomen - nt, nd, normal active bowel sounds, no rebound or guarding Extremities - No clubbing, cyanosis or edema Skin - no rashes, lesions, plaques or nodules Studies reviewed in eDH. Remarkable for the following: LABS: Last 3 wbc, hgb, hct plt Recent Labs 11/22/18 0644 11/21/18 0030 11/20/18 0212 WBC 7.1 8.7 10.6* HGB 18.4* 18.2* 18.6* HCT 53.1* 52.9* 54.9* PLATELET 268 205 184 Last 3 Lytes Recent Labs 11/22/18 0644 11/21/18 0030 11/20/18 0212 NA 139 140 140 K 3.2* 3.5 4.1 CL 99 105 105 CO2 26 24 22 BUN 12 10 9* CREATININE 0.52* 0.42* 0.48* Last 3 LFTs Recent Labs 11/20/18 0212 11/19/18 0221 11/18/18 0210 AST 26 22 28 ALT 43 45 47 ALKPHOS 45 42 35* BILITOT 1.2 1.2 0.8 BILIDIR 0.5* 0.5* 0.3 FSBG Trend No results for input(s): POCGLU in the last 72 hours. MICRO: No results for input(s): URINECULTURE in the last 720 hours. No results for input(s): GRAMSTAIN, BFCX, LOWERRESPCX, TISSUECX in the last 720 hours. No results for input(s): BLOODCX in the last 720 hours. ECG: Recent Labs 11/17/182031 DIAGLINE Sinus bradycardia Otherwise normal ECG When compared with ECG of 17-NOV-2018 18:12, No significant change was found Confirmed by MD Luis, Fredy Mendieta ([id number]) on 11/18/2018 12:22:16 PM QTCCALC 383 VASCULAR: No results for input(s): VBTEXTRPT in the last 720 hours. Radiology: CXR - Cardiothymic contours are unremarkable. Supporting devices are unremarkable. Streaky densities in both infrahilar regions suggest atelectasis/infiltrates. Tiny pulmonary nodules in the periphery of the left lung are unchanged. Slight improvement of the aeration of both lungs. No pleural effusions. Bony and soft tissue structures show no acute findings. ?? Assessment: 43 yo w/ COPD on home O2 etoh and opioid use disorders on chronic methadone who is currently withdrawing from alcohol. He has a history of complicated withdrawal and has required ICU interventions including intubation for airway protection and propofol sedation. He is currently extubated and stablefor transfer out of the ICU. He has started on a phenobarb taper. Psych has seen the patient and hehas been started on his home dose of methadone. ?? Plan: ?? Phenobarb taper - 30 daily tomorrow then off ?? Psych following ?? Increase nicotine patch ?? Restart seroquel tonight ?? Cont to hold home dose abilify ?? Continue home Methadone ?? Nebs ?? May require restraints for safety ?? Physical Therapy referral ?? DVT Prophylaxis - heparin ?? If currently a smoker - advised about smoking cessation and will provide smoking cessation material and support. ?? Pneumovax and Influenza Immunizations given as needed. ?? Discussed Advanced Directives and Code Status. The patient wishesto be Full Code. ?? Dispo: Likely home monday Team Pager( Coverage 21/11): #[phone] PCP: Cassie Roberts MD [phone] Attestation: IPI Certification I certify that I am a D-H credentialed attending provider with admitting privileges and that the patient meets or has met medical necessity to require an inpatient IPI level of care meeting a minimumof two midnights or is on the CMS inpatient only procedure list (status C) due to: etoh w/d requiring med titration GIA BIRMINGHAM MD 11/23/2018 * Wilberto Castaneda MSW - 11/23/2018 10:11 AM EDT Continuing to discuss pt's status and situation during multidisciplinary discharge planning rounds.Attempted visit with pt to review support and ETOH resources. Pt, including per RN, remains in withdrawal and not oriented enough to have such conversation. Will follow and assist as his condition allows. From MD Admit H&P: Mr. Barros presented to [facility] on 11/15 in order to obtain medical [facility]. Per OSH records, he reported that his last drink was on the evening of 11/14. His alcohol intake is reportedly significant for a half gallon of vodka per day. * Gia Birmingham MD - 11/22/2018 2:33 PM EDT Hospital Medicine Attending Daily Progress Note Admit Date: 11/17/2018 Hospital Day 5 days Active Hospital Problems Diagnosis ??? Alcohol withdrawal ??? Opiate withdrawal Resolved Hospital Problems No resolved problems to display. [facility] There are no active non-hospital problems to display for this patient. Inpatient Medications: Scheduled ??? DULoxetine 60 mg Oral Daily ??? PHENobarbital 30 mg Oral BID ??? lidocaine 1 patch Transdermal Daily And ??? [START ON 11/23/2018] lidocaine 1 patch Transdermal Q24H ??? nicotine 1 patch Transdermal Daily And ??? [START ON 11/23/2018] Patch Verification 1 patch Transdermal BID And ??? [START ON 11/23/2018] nicotine 1 patch Transdermal Daily ??? methadone (Methadose) oral liquid 120 mg Oral Daily ??? glycopyrrolate 0.1 mg Intravenous BID ??? heparin (Porcine) 5,000 Units Subcutaneous Q8H ADOLFO Continuous infusions: PRN: ipratropium-albuterol Interval History: agitated overnight, denies sob, chest pain, abd pain Physical Exam Vitals Range last 24 hrs Temperature Temp: [36.6 ??C (97.9 ??F)-37.2 ??C (99 ??F)] Heart Rate Heart Rate: [54-79] Blood Pressure BP: (136-165)/(78-98) Respiratory Rate Resp: [11-18] SpO2 SpO2: [91 %-97 %] Intake/Output Summary (Last 24 hours) at 11/22/2018 1433 Last data filed at 11/22/2018 1324 Gross per 24 hour Intake 800 ml Output 925 ml Net -125 ml Patient Vitals for the past 168 hrs: Weight 11/19/18 2300 70.2 kg (154 lb 12.2 oz) 11/17/18 1800 73.2 kg (161 lb 6 oz) Body mass index is 23.53 kg/m??. Physical Exam Appearance: Appears older than stated age, in salbador/wrist restraints, not diaphoretic today Behavior: Eyes tracking 50% of the time, moderately cooperative with interview Speech: Soft, slurred, slow Mood: okay Affect: blunted Thought Process: blocked and loose associations Thought Content: Denied SI/HI, denied AVH/delusions Orientation: To self, place, time, situation Cognition: improving Insight: poor Judgment: poor Memory unable to assess Language intermittent incoherence Fund of Knowledge unable to assess ?? Studies reviewed in eDH. Remarkable for the following: LABS: Last 3 wbc, hgb, hct plt Recent Labs 11/22/18 0644 11/21/18 0030 11/20/18211 WBC 7.1 8.7 10.6* HGB 18.4* 18.2* 18.6* HCT 53.1* 52.9* 54.9* PLATELET 268 205 184 Last 3 Lytes Recent Labs 11/22/18 0644 11/21/18 0030 11/20/18211 NA 139 140 140 K 3.2* 3.5 4.1 CL 99 105 105 CO2 26 24 22 BUN 12 10 9* CREATININE 0.52* 0.42* 0.48* Last 3 LFTs Recent Labs 11/20/18 0212 11/19/18 0221 11/18/18 0210 AST 26 22 28 ALT 43 45 47 ALKPHOS 45 42 35* BILITOT 1.2 1.2 0.8 BILIDIR 0.5* 0.5* 0.3 FSBG Trend No results for input(s): POCGLU in the last 72 hours. MICRO: No results for input(s): URINECULTURE in the last 720 hours. No results for input(s): GRAMSTAIN, BFCX, LOWERRESPCX, TISSUECX in the last 720 hours. No results for input(s): BLOODCX in the last 720 hours. ECG: Recent Labs 11/17/182031 DIAGLINE Sinus bradycardia Otherwise normal ECG When compared with ECG of 17-NOV-2018 18:12, No significant change was found Confirmed by MD Luis, Fredy Mendieta ([id number]) on 11/18/2018 12:22:16 PM QTCCALC 383 VASCULAR: No results for input(s): VBTEXTRPT in the last 720 hours. Radiology: CXR - Cardiothymic contours are unremarkable. Supporting devices are unremarkable. Streaky densities in both infrahilar regions suggest atelectasis/infiltrates. Tiny pulmonary nodules in the periphery of the left lung are unchanged. Slight improvement of the aeration of both lungs. No pleural effusions. Bony and soft tissue structures show no acute findings. ?? Assessment: 43 yo w/ COPD on home O2 etoh and opioid use disorders on chronic methadone who is currently withdrawing from alcohol. He has a history of complicated withdrawal and has required ICU interventions including intubation for airway protection and propofol sedation. He is currently extubated and stablefor transfer out of the ICU. He has started on a phenobarb taper. Psych has seen the patient and hehas been started on his home dose of methadone. ?? Plan: ?? Phenobarb taper ?? Psych following ?? Increase nicotine patch ?? Restart seroquel tonight ?? Cont to hold home dose abilify ?? Continue home Methadone ?? Nebs ?? May require restraints for safety ?? Physical Therapy referral ?? DVT Prophylaxis - heparin ?? If currently a smoker - advised about smoking cessation and will provide smoking cessation material and support. ?? Pneumovax and Influenza Immunizations given as needed. ?? Discussed Advanced Directives and Code Status. The patient wishesto be Full Code. Team Pager( Coverage 21/11): #[phone] PCP: Cassie Roberts MD [phone] Attestation: IPI Certification I certify that I am a D-H credentialed attending provider with admitting privileges and that the patient meets or has met medical necessity to require an inpatient IPI level of care meeting a minimumof two midnights or is on the [facility] inpatient only procedure list (status C) due to: etoh w/d requiring med titration GIA BIRMINGHAM MD 11/22/2018 * Sheila Onofre DT - 11/22/2018 11:58 AM EDT Nutrition Services - Initial Note Garret Barros : 1975 AGE: 43 y.o. Patient Active Problem List Diagnosis Date Noted ??? *Hospital-Alcohol withdrawal 11/17/2018 ??? Hospital-Opiate withdrawal 11/18/2018 Reason for Nutrition Intervention: Diet Advancement Diet Order: Puree Appetite: Fair - per nursing Food allergies: NKFA Chewing/Swallowing difficulty: See [facility] note Ht Readings from Last 3 Encounters: 11/17/18 172.7 cm (5' 8) Wt Readings from Last 3 Encounters: 11/19/18 70.2 kg (154 lb 12.2 oz) Body mass index is 23.53 kg/m??. Assessment: Patient seen for diet advancement. Pt sleeping at time of visit. Nursing reported a fair appetite without difficulty chewing or swallowing on puree diet. [facility] following pt. Nursing reported pt is tolerating current diet without nausea or vomiting. Nursing reported pt consumed 50% of breakfast 11/20. Nursing agreeable to adding Boost shakes to increase po intake, press writer to set up. Nursing had no further questions at this time. Encouraged nursing to contact Food and Nutrition services with any questions that may arise. Nutrition will continue to monitor and follow up with pt to further assess level of PO intake and appetite. Nutrition Plan: Continue current diet. Recommend Daily Multi Vitamins. Boost Plus 1 x/day. Monitor weight. Encourage good po intake. Support and encouragement provided. Nutrition services to follow weekly through hospital course unless consulted in the interim. FLY Jacome * Uziel Arboleda RN - 11/21/2018 5:16 PM EDT Received pt from Critical care. Pt on 5 point restraint. Wanting to eat food, will wait for his puree tray. We will feed him once food gets here. Agrees with the previous textile dyer. Patient is asking for more methadone and to be taken off restraints. Patient is still confused and is only oriented to himself. [place]. * Stefanie Garcia DT - 11/21/2018 9:12 AM EDT Garret Barros : 1975 AGE: 43 y.o. Patient Active Problem List Diagnosis Date Noted ??? *Hospital-Alcohol withdrawal 11/17/2018 ??? Hospital-Opiate withdrawal 11/18/2018 Ht Readings from Last 3 Encounters: 11/17/18 172.7 cm (5' 8) Wt Readings from Last 3 Encounters: 11/19/18 70.2 kg (154 lb 12.2 oz) Body mass index is 23.53 kg/m??. Labs: Results for GARRET BARROS ( ) as of 11/21/2018 09:11 Ref. Range 11/21/2018 00:30 Sodium Latest Ref Range: 135 - 145 mmol/L 140 Potassium Latest Ref Range: 3.5 - 5.0 mmol/L 3.5 BUN Latest Ref Range: 10 - 20 mg/dL 10 Creatinine Latest Ref Range: 0.80 - 1.50 mg/dL 0.42 (L) eGFR Latest Ref Range: >=60 mL/min/1.73 m?? 141 eGFR Latest Ref Range: >=60 mL/min/1.73 m?? 163 Glucose Lvl Latest Ref Range: 65 - 199 mg/dL 104 Calcium Latest Ref Range: 8.5 - 10.5 mg/dL 8.7 Patient has been NPO and/or on clear liquids for 5 days. If diet can not be advanced within 24 hours, please consider alternative means of nutrition support. FLY Clayton * Giovanni Phillip MD - 11/21/2018 7:37 AM EDT MICU STAFF PROGRESS NOTE Critical Care Medicine Author: GIOVANNI PHILLIP Patient seen and examined on critical care rounds. Precedex weaned off overnight. Weaned down to 2LNC, d/c'd oxygen this morning and is maintaining his saturations. Answering questions, but still having visual hallucinations and remains disoriented. Active problems: Severe DTs Opiate use disorder with withdrawal Underlying obstructive lung disease, presumed severe Exam: Last value Range last 24 hrs Temperature Temp: 36.7 ??C (98.1 ??F) Temp: [36.6 ??C (97.9 ??F)-37 ??C (98.6 ??F)] Heart Rate Heart Rate: 70 Heart Rate: [51-70] Blood Pressure BP: 150/89 BP: (145-154)/(84-89) Respiratory Rate Resp: 23 Resp: [18-26] SpO2 SpO2: 96 % SpO2: [91 %-97 %] Art BP BP (Arterial Line): -- Ventilator: RA Current Drips: precedex off Awake, answering questions, not oriented to place or date Reports seeing pizza on the wall Lungs clear bilaterally Heart regular, no murmurs Abdomen soft, non-tender RUE less edematous than yesterday Labs/studies: WBC 8.7 Hg 18.2 plt 205 Na 140 K 3.5 Cl 105 CO2 24 Creat 0.42 ASSESSMENT, MANAGEMENT, and DECISION MAKIN43 y/o man with apparently severe underlying COPD admitted with severe ETOH withdrawal/DTs followedby obtundation after starting high dose ativan infusion. He has tolerated extubation from a respiratory standpoint, and his delirium has been steadily improving. He remains actively delirious, but isnot agitated and is not excessively lethargic. We have subsequently learned that in fact he is in methadone maintenance, so we will continue his methadone dose. We will continue a phenobarb taper to avoid benzos and seroquel a recommended by psychiatry. We will transition his care to hospital medicine. IS PATIENT CRITICALLY ILL ? Is there a high potential of sudden, clinically significant, or life threatening deterioration? No Is there a need for direct personal assessment and management to treat/prevent multiple vital organfailure/deterioration? No If this patient is not critically ill, I certify the patient requires continued in-patient hospitalization for delirium and active alcohol withdrawal. GIOVANNI PHILLIP * Del Ortega - 11/21/2018 6:49 AM EDT Critical Care Progress Note ?? Patient Name: Garret Barros Date of Admission: 11/17/2018 ( Hospital Day 2 days ) Service: Critical Care ?? ID: Garret Barros??is a 43 y.o.??male??with history of reported COPD on 2L home O2, alcohol use disorder, and opioid use disorder presents as a transfer from [facility] with acute encephalopathy thought to be secondary to alcohol/opiate withdrawal. ?? Active Problems: EtOH withdrawal Opioid use disorder and concern for withdrawal COPD ?? Interval Events/Subjective: - Mental status slowly improving - Resumed home psychiatric medications: duloxetine and quetiapine yesterday - Started on methadone taper per Psych recs ?? Vital Signs: Temp: [36.6 ??C (97.9 ??F)-36.8 ??C (98.2 ??F)] Heart Rate: [61-70] Resp: [18-26] BP: (145-155)/(84-89) SpO2: [91 %-97 %] Heart Rate from SpO2: [57 bpm-70 bpm] I/O: Intake/Output Summary (Last 24 hours) at 11/21/2018 1000 Last data filed at 11/21/2018 0900 Gross per 24 hour Intake 517.6 ml Output 930 ml Net -412.4 ml ?? Physical Exam: Gen: adult male resting in bed, responsive to voice, responds to commands CV: RRR, normal S1/S2, no S3/S4, no m/r/g, no JVD Resp: clear to auscultation bilaterally Abd: +BS, soft, NT, ND Ext: L BKA, WWP, no cyanosis, no clubbing, 2+ DP pulses, no MIGUEL Neuro: alert, oriented to person but not place or time, moving all four extremities spontaneously, sensation normal to crude touch Skin: no rashes, lesions, or ulcerations noted ?? Labs: Recent Labs 11/21/18 0030 072 11/19/18220 WBC 8.7 10.6* 13.4* HGB 18.2* 18.6* 17.9* HCT 52.9* 54.9* 53.0* PLATELET 205 184 179 Recent Labs 11/21/18 0030 11/20/182 11/19/18220 NA 140 140 139 K 3.5 4.1 3.4* CL 105 105 104 CO2 24 22 26 BUN 10 9* 9* CREATININE 0.42* 0.48* 0.52* Recent Labs 11/20/18 0212 11/19/1822011/18/18209 AST 26 22 28 ALT 43 45 47 ALKPHOS 45 42 35* BILITOT 1.2 1.2 0.8 BILIDIR 0.5* 0.5* 0.3 Recent Labs 11/21/18 0030 11/20/1821111/19/18220 CALCIUM 8.7 8.8 8.8 MAGNESIUM 0.82 0.86 0.78 PHOS -- -- 4.0 Recent Labs 11/18/18 1355 11/18/18 0816 11/18/18 0606 11/18/18 0401 11/18/18 0209 11/17/18 1746 POCGLU 97 79 79 74 74 76 Assessment: ?? Garret Barros??is a 43 y.o.??male??with history of reported COPD on 2L home O2, alcohol use disorder,and opioid use disorder (not on a home methadone program) who presents as a transfer from [facility] withacute encephalopathy requring intubation for airway protection. ?? He is slowly making progress with regards to his mental status -- he was started on maintenance phenobarbital yesterday. Will plan to slowly taper this today (30mg bid). Psychiatry was also able to find his outpatient methadone provider in [facility] and confirmed that he was on 120mg daily. Will plan to resume this home dose today. At the same time, we'll hold his home dose of seroquel tonight to avoid oversedation and plan to slowly re-introduce this in the coming days. Otherwise, he is stable for transfer to floors today. Remainder of plan as below. Plan: 1. Acute encephalopathy ?Concern for alcohol withdrawal ?Concern for opioid withdrawal - Decrease phenobarbital to 30mg twice daily today -- plan to decrease to 15mg twice daily tomorrow - Resume methadone 120mg daily today - Hold quetiapine 200mg qhs tonight to avoid oversedation - Glycopyrrolate 0.1mg twice daily for secretions -- consider stopping tomorrow if secretions are improved ?? 2. Reported history of COPD - Duonebs scheduled q6h ?? Routine: ?GI: ??Famotidine ?DVT: ??Heparin SQ ?? Code Status:??FULL ?? Del Ortega MD PGY-3, Internal Medicine 11/19/2018 * Kristi Fatima RN - 11/21/2018 5:16 AM EDT Neuro: Patient is alert and oriented x self and sometimes place. Pupils perrla. Patient moves all extremities. Patient follows commands intermittently. precedex discontinued Respiratory: lung sounds clear and diminished in the bases. Patient on 2L NC. Cardiac: Patient sinus renzo to NSR. Patient afebrile. Pulses palpable. Mild edema in extremities. BP stable. GI: bowel sounds normoactive. No bowel movement this shift. Patient took pills with pudding and liquids PO. : lopez in place, adequate urine output until 0400. Flushed lopez with 10cc ns. No resistence met. Return came back Patient in salbador and wrist restraints. Bed alarm set. No other concerns at this time. Will continueto monitor. * Pearl Thorpe DIRECTOR NURSES' REGISTRY - 11/20/2018 10:47 AM EDT Received message from plant and maintenance technician that patient's certification officer, Hayden Lou, had called wanting updates on patient's medical condition Met with patient who is still withdrawing and requiring restraints. Patient alert to person, place.Patient did not give permission for DIRECTOR NURSES' REGISTRY to contact his certification officer Will check again with patient when he is less confused Hayden Dasha ([phone]) Office of Case Management- Social Work Note EDD Cutler, [facility] Pager [phone] * Giovanni Phillip MD - 11/20/2018 7:35 AM EDT MICU STAFF PROGRESS NOTE Critical Care Medicine Author: GIOVANNI PHILLIP Patient seen and examined on critical care rounds. Extubated yesterday without event, weaned from high flow to nasal cannula overnight. Became more agitated and delirious after extubation, responded incompletely to phenobarb, started on precedex. Was more bradycardic overnight, precedex held, restarted at 0.4 We were unable to confirm that he is enrolled in a methadone maintenance program. Active problems: Severe DTs Opiate use disorder with withdrawal Intubation for airway protection from acute delirium Exam: Last value Range last 24 hrs Temperature Temp: 37 ??C (98.6 ??F) Temp: [36.4 ??C (97.5 ??F)-37.3 ??C (99.1 ??F)] Heart Rate Heart Rate: (!) 44 Heart Rate: [44-97] Blood Pressure BP: 146/81 BP: (107-183)/(63-105) Respiratory Rate Resp: 23 Resp: [13-33] SpO2 SpO2: 95 % SpO2: [87 %-98 %] Art BP BP (Arterial Line): -- Ventilator: NC 5L Current Drips: precedex 0.3 Slightly lethargic, responds to questions with some delay, not oriented Less diaphoretic today Lungs with prolonged expiratory phase, no wheezes Heart regular, bradycardic, no murmurs Abdomen soft, non-tender RUE edema unchanged Labs/studies: WBC 10.6 Hg 18.6 plt 184 Na 140 K 4.1 Cl 105 CO2 22 Creat 0.48 ASSESSMENT, MANAGEMENT, and DECISION MAKIN43 y/o man with apparently severe underlying COPD admitted with severe ETOH withdrawal/DTs followedby obtundation after starting high dose ativan infusion. He has tolerated extubation from a respiratory standpoint, but has persistent acute delirium from alcohol withdrawal. He is improving slowly and is able to respond more consistently today. We will continue maintenance phenobarb dosing and tryto wean off his precedex. We will also consult with psychiatry for recommendations about replacing his illicit methadone use from which he appears to be withdrawing, as well as recommendations about restarting his many home psychiatric medications. We will keep him in the ICU for safe management ofhis active delirium. IS PATIENT CRITICALLY ILL ? Is there a high potential of sudden, clinically significant, or life threatening deterioration? Yes Is there a need for direct personal assessment and management to treat/prevent multiple vital organfailure/deterioration? Yes If this patient is not critically ill, I certify the patient requires continued in-patient hospitalization for [] PATIENT IS CRITICALLY ILL WITH THESE DIAGNOSES BEING MANAGED BY CCS TEAM: Delirium Alcoholic Encephalopathy Alcoholic I personally performed 35 minutes of aggregate critical care time exclusive of procedures and teaching. This includes time spent during direct patient evaluation and reassessment, interpreting diagnostic tests, directing life and/or organ supporting interventions and documentation on the unit. GIOVANNI PHILLIP * Vibha Ortegah - 11/20/2018 7:19 AM EDT Critical Care Progress Note ?? Patient Name: Garret Barros Date of Admission: 11/17/2018 ( Hospital Day 2 days ) Service: Critical Care ?? ID: Garret Barros??is a 43 y.o.??male??with history of reported COPD on 2L home O2, alcohol use disorder, and opioid use disorder presents as a transfer from [facility] with acute encephalopathy thought to be secondary to alcohol/opiate withdrawal. ?? Active Problems: EtOH withdrawal Opioid use disorder and concern for withdrawal COPD ?? Interval Events/Subjective: - Extubated yesterday - Still agitated, restless, fighting with staff -- given phenobarbital 260mg IV x1, 130mg IV x3 yesterday and overnight - Also started on dexmedetomidine; became relatively bradycardic and titrated down overnight ?? Continuous Infusions: ??? fentaNYL 250 mcg/hr (11/18/182151) ??? propofol 40 mcg/kg/min (11/19/18 0600) ?? Vital Signs: ?? Last value Range last 24 hrs Temperature Temp: 37.2 ??C (99 ??F) Temp: [37 ??C (98.6 ??F)-37.3 ??C (99.1 ??F)] Heart Rate Heart Rate: 59 Heart Rate: [59-85] Blood Pressure BP: 104/63 BP: (104-173)/(63-98) Respiratory Rate Resp: 18 Resp: [13-81] SpO2 SpO2: 95 % SpO2: [74 %-95 %] ?? Patient Vitals for the past 168 hrs: ?? Weight 11/17/18 1800 73.2 kg (161 lb 6 oz) ? I/O: Intake/Output Summary (Last 24 hours) at 11/20/2018 0721 Last data filed at 11/20/2018 0600 Gross per 24 hour Intake 559.54 ml Output 1180 ml Net -620.46 ml Vent Settings: PS, FiO2 0.35, 5/5 ?? Physical Exam: Gen: adult male resting in bed, responsive to voice, responds to commands CV: RRR, normal S1/S2, no S3/S4, no m/r/g, no JVD Resp: clear to auscultation bilaterally Abd: +BS, soft, NT, ND Ext: L BKA, WWP, no cyanosis, no clubbing, 2+ DP pulses, no MIGUEL Neuro: PERRL, GCS3. Skin: no rashes, lesions, or ulcerations noted ?? Labs: Recent Labs 11/20/1821111/19/1822011/18/18209 WBC 10.6* 13.4* 8.7 HGB 18.6* 17.9* 17.3* HCT 54.9* 53.0* 52.6* PLATELET 184 179 180 Recent Labs 11/20/1821111/19/1822011/18/18209 NA 140 139 145 K 4.1 3.4* 4.3 CL 105 104 109* CO2 22 26 28 BUN 9* 9* 10 CREATININE 0.48* 0.52* 0.58* Recent Labs 07/23/19 0212 07/22/19 0221 07/21/19 0210 AST 26 22 28 ALT 43 45 47 ALKPHOS 45 42 35* BILITOT 1.2 1.2 0.8 BILIDIR 0.5* 0.5* 0.3 Recent Labs 11/20/18 0212 11/19/18 0221 11/18/18 0210 CALCIUM 8.8 8.8 8.5 MAGNESIUM 0.86 0.78 0.80 PHOS -- 4.0 -- No results for input(s): INR, PT, PTT in the last 168 hours. No results for input(s): CK, TROPONINT in the last 168 hours. Recent Labs 11/18/18 1355 11/18/18 0816 11/18/18 0606 11/18/18 0401 11/18/18 0209 11/17/18 1746 POCGLU 97 79 79 74 74 76 Assessment: ?? Garret Fiorella??is a 43 y.o.??male??with history of reported COPD on 2L home O2, alcohol use disorder,and opioid use disorder (not on a home methadone program) who presents as a transfer from [facility] withacute encephalopathy requring intubation for airway protection. ?? He is slowly making progress with regards to his mental status -- will plan to start maintenance dosing of phenobarbital today at 50mg via his NGT twice daily. Will also plan to resume his home psychiatric meds. We will touch base with Psychiatry re: his home meds as well as starting a methadone taper for his opioid withdrawal. Remainder of plan as below. Plan: 1. Acute encephalopathy ?Concern for alcohol withdrawal ?Concern for opioid withdrawal - Phenobarbital 50mg twice daily for maintenance for now - Will start methadone taper pending Psychiatry recs for opioid withdrawal - Resume home doses of aripiprazole and quetiapine - Wean Precedex as able ?? 2. Reported history of COPD - Duonebs scheduled q6h ?? Routine: ?GI: ??Famotidine ?DVT: ??Heparin SQ ?? Code Status:??FULL ?? Del Ortega MD PGY-3, Internal Medicine 11/19/2018 * Omayra Arteaga RN - 11/20/2018 5:59 AM EDT Pt is resting comfortably in bed.pt repositioned * Omayra Arteaga RN - 11/19/2018 10:55 PM EDT Pt renzo low 30's and blue team aware. precedex on hold. * Omayra Arteaga RN - 11/19/2018 9:13 PM EDT Attempted to give patient his heparin dose as well as his peridex but pt was fighting with me and said he doesn't want it. * Cuauhtemoc Guevara RCP - 11/19/2018 8:49 PM EDT Received pt on HFNC 40L on 40% FiO2 -RR: 26, SpO2: 92% ~00:10 SpO2 was 96% -weaned FiO2 to 35% ~03:35 transitioned pt to low flow NC 5L -RR: 14, Spo2: 94% Plan: Continue to wean supplemental oxygen as pt tolerated (on 2L home O2) * Omayra Arteaga RN - 11/19/2018 7:28 PM EDT Assumed care of patient. Pt in no noted distress and sleeping. Respiratory bedside * Susu Murillo RN - 11/19/2018 5:13 PM EDT 0938 ICU rounds completed with team. Update on the patient's condition et current POC provided. VO received to stop diprivan now et decrease fentanyl to 100 mcq/hr--will attempt to extubate the patient once he is following commands 1015 patient now alert with eye open sponta., intermittently following, very brief, simple commands 1025 patient now very restless in bed et attempting to extubate himself--disregarding safety instructions provided by staff. RT called to bedside for extubation 1035 resident at bedside evaluating the patient. Ok to proceed with extubation. Fentanyl gtt to be dc'd afterwards. Will administer phenobarbital now. If restlessness/agitation persists post extubation, ok to continue rajni wrist restraints. Lopez to remain in place for time being. 1058 patient extubated without difficulty to 4L nc. He is confused et unable to be reoriented, moving all extremities purposefully, restless with poor safety awareness--intermittently pulling at O2 et NG, et only intermittently following commands. rajni wrist restraints reapplied 1120 resident by to check on patient. Update on current condition provided by bedside nurse 1300 RASS +2. Patient uncooperative with care--attempting to hit/kick staff, yelling no stop, frequently removing O2, attempting to pull at NG, and trying to get OOB. Attempts to reorient the patient remain unsuccessful. 1350 resident by to check on the patient. Updated that the patient remains restless et agitated--trying to hit/kick staff, et that BP is elevated in response to agitation. Order received for precedexgtt 1543 resident by to check on the patient. Updated that the patient remains restless but agitation has mostly resolved with precedex max'd. Order received for an additional dose of phenobarbital. 1700 RASS now -2 precedex gtt decreased 1800 Resident notified of urine drug screen results. Also updated on the patient's neuro assessment/RASS since receiving second dose of phenobarbital et that precedex is now being weaned. No new orders received * Fei Mcclain RCP - 11/19/2018 4:08 PM EDT 11/19/18 1600 Oxygen Therapy O2 Device High flow nasal cannula O2 Flow Rate (L/min) 40 L/min FiO2 (%) 40 % SpO2 94 % Resp 19 pt remains on HFNC tavia well. Oxygen now on 40%, Pt has order for duoneb q4 prn, treatments given B/S diminished Pt had moderate secretions before Extubated Pt now spitting up secretions Will continue to monitor pt * Del Ortega - 11/19/2018 4:05 PM EDT Critical Care Progress Note ?? Patient Name: Garret Barros Date of Admission: 11/17/2018 ( Hospital Day 2 days ) Service: Critical Care ?? ID: Garret Barros??is a 43 y.o.??male??with history of reported COPD on 2L home O2, alcohol use disorder, and opioid use disorder on methadone??who presents as a transfer from [facility] with acute encephalopathy thought to be secondary to alcohol/opiate withdrawal. ?? Active Problems: EtOH withdrawal Opioid use disorder and concern for withdrawal COPD ?? Interval Events/Subjective: - Started on fentanyl gtt yesterday for sedation - Passed SBT overnight ?? Continuous Infusions: ??? fentaNYL 250 mcg/hr (11/18/182151) ??? propofol 40 mcg/kg/min (11/19/18 0600) ?? Vital Signs: ?? Last value Range last 24 hrs Temperature Temp: 37.2 ??C (99 ??F) Temp: [37 ??C (98.6 ??F)-37.3 ??C (99.1 ??F)] Heart Rate Heart Rate: 59 Heart Rate: [59-85] Blood Pressure BP: 104/63 BP: (104-173)/(63-98) Respiratory Rate Resp: 18 Resp: [13-81] SpO2 SpO2: 95 % SpO2: [74 %-95 %] ?? Patient Vitals for the past 168 hrs: ?? Weight 11/17/18 1800 73.2 kg (161 lb 6 oz) ? I/O: ?? Intake/Output Summary (Last 24 hours) at 11/19/2018 07 Last data filed at 11/19/2018 0600 Gross per 24 hour Intake 572.68 ml Output 775 ml Net -202.32 ml ?? Vent Settings: PS, FiO2 0.35, 5/5 ?? Physical Exam: Gen: adult male, intubated and sedated CV: RRR, normal S1/S2, no S3/S4, no m/r/g, no JVD Resp: clear to auscultation bilaterally Abd: +BS, soft, NT, ND Ext: L BKA, WWP, no cyanosis, no clubbing, 2+ DP pulses, no MIGUEL Neuro: PERRL, GCS3. Skin: no rashes, lesions, or ulcerations noted ?? Labs: Recent Labs 11/19/1822011/18/1820911/17/18 1755 WBC 13.4* 8.7 6.5 HGB 17.9* 17.3* 16.9* HCT 53.0* 52.6* 52.1* PLATELET 179 180 172 ?? Recent Labs 11/19/1822011/18/18 02111/17/18 1755 NA 139 145 145 K 3.4* 4.3 4.4 CL 104 109* 109* CO2 26 28 29 BUN 9* 10 10 CREATININE 0.52* 0.58* 0.64* ?? Recent Labs 11/19/1822011/18/18 02111/17/18 1755 AST 22 28 23 ALT 45 47 43 ALKPHOS 42 35* 33* BILITOT 1.2 0.8 0.5 BILIDIR 0.5* 0.3 0.2 ?? Recent Labs 11/19/1822011/18/18 02111/17/18 1755 CALCIUM 8.8 8.5 8.3* MAGNESIUM 0.78 0.80 0.83 PHOS 4.0 -- -- ?? Recent Labs 11/18/18 1355 11/18/18 0816 11/18/18 0606 11/18/18 0401 11/18/18 0209 11/17/18 1746 POCGLU 97 79 79 74 74 76 ? Assessment: ?? Garret Barros??is a 43 y.o.??male??with history of reported COPD on 2L home O2, alcohol use disorder,and opioid use disorder on methadone??who presents as a transfer from [facility] with acute encephalopathy requring intubation for airway protection. ?? He passed his SBT this morning, so we will wean sedation today and attempt extubation. Once he is extubated, we will resume his home dose methadone with Psych assistance and treat his alcohol withdrawal with a phenobarbital taper. Remainder of plan as below. ?? Plan: ?? 1. Acute encephalopathy ?Concern for alcohol withdrawal ?Concern for opioid withdrawal - Wean sedation and extubate - Phenobarbital taper today -- 260mg x1, 130mg q6h for 2 doses thereafter - Psych consulted; plan to restart methadone once extubated today ?? 2. Reported history of COPD - Wheezing on exam, but on minimal vent settings wrt hypoxia - Duonebs scheduled q6h ?? Routine: ?GI: ??Famotidine ?DVT: ??Heparin SQ ?? Code Status:??FULL ?? Del Ortega MD PGY-3, Internal Medicine 11/19/2018 ? Addendum 11/19/2018 3:54 PM ?? Garret Barros was extubated successfully this morning. Since then, he has continued to be intermittently agitated but has been protecting his airway. He has been started on phenobarbital as well as dexmedetomidine for agitation, presumably related to his withdrawal symptoms. ?? PDMP query did NOT reveal any prescriptions for methadone in [place], [place], or [place]. As such, we will hold off on resumption of opiate therapy at this time and await Psychiatry's recommendations regarding additional treatment of his withdrawal. * Fei Mcclain CENTRIFUGAL SUPERVISOR - 11/19/2018 11:13 AM EDT 11/19/18 1102 Oxygen Therapy O2 Device NC O2 Flow Rate (L/min) 4 L/min SpO2 98 % Resp [address] pt ext[address] per DR order Pt placed on 4L DR requested rx, albuterol given Will continue to follow pt * Giovanni Phillip MD - 11/19/2018 7:33 AM EDT MICU STAFF PROGRESS NOTE Critical Care Medicine Author: GIOVANNI PHILLIP Patient seen and examined on critical care rounds. Did not tolerate transition to PSV yesterday despite opiate administration for withdrawal. Copious thick clear secretions from mouth and ETT. Given glycopyrrolate yesterday with improving secretion volume. Passed an SBT this morning, tolerating PSV. Active problems: Severe DTs Opiate use disorder with withdrawal Intubation for airway protection from acute delirium Exam: Last value Range last 24 hrs Temperature Temp: 37.2 ??C (99 ??F) Temp: [37 ??C (98.6 ??F)-37.3 ??C (99.1 ??F)] Heart Rate Heart Rate: 59 Heart Rate: [59-85] Blood Pressure BP: 104/63 BP: (104-173)/(63-98) Respiratory Rate Resp: 18 Resp: [13-81] SpO2 SpO2: 95 % SpO2: [74 %-95 %] Art BP BP (Arterial Line): -- Ventilator: PSV 5/5 40% Current Drips: Propofol 40 Fentanyl 200 Intubated, sedated, RASS -3 Pupils dilated Decreased secretions from the mouth and ETT Less diaphoretic Lungs with prolonged expiratory phase, no wheezes Heart regular, no murmurs Abdomen soft, non-tender RUE edema unchanged Labs/studies: WBC 13.4 Hg 17.9 plt 179 Na 139 K 3.4 Cl 104 CO2 26 Creat 0.52 ASSESSMENT, MANAGEMENT, and DECISION MAKIN43 y/o man with apparently severe underlying COPD admitted with severe ETOH withdrawal/DTs followedby obtundation after starting high dose ativan infusion. His delirium is controlled with propofol, and he passed an SBT this morning after starting glycopyrrolate. His narcotic withdrawal also seems better controlled on fentanyl. Plan: Start phenobarb and wean propofol off Reduce fentanyl, plan to transition to po narcotics Extubate this morning Continue bronchodilators Continue glycopyrrolate for now IS PATIENT CRITICALLY ILL ? Is there a high potential of sudden, clinically significant, or life threatening deterioration? Yes Is there a need for direct personal assessment and management to treat/prevent multiple vital organfailure/deterioration? Yes If this patient is not critically ill, I certify the patient requires continued in-patient hospitalization for [] PATIENT IS CRITICALLY ILL WITH THESE DIAGNOSES BEING MANAGED BY CCS TEAM: Delirium Alcoholic Encephalopathy Alcoholic Intubated for airway protection secondary to acute DTs I personally performed 35 minutes of aggregate critical care time exclusive of procedures and teaching. This includes time spent during direct patient evaluation and reassessment, interpreting diagnostic tests, directing life and/or organ supporting interventions and documentation on the unit. GIOVANNI PHILLIP * Cuauhtemoc Guevara RCP - 11/18/2018 9:03 PM EDT AMV Protocol: Yes SBT Protocol: Yes SBT: Passed Vent Settings: Servo I Ventilator Mode: PS/CPAP PEEP Set: 5 FiO2: 40 % PSV: 5 Ventilator Measurements: Resp: 18 Vt Spontaneous: 430 Ve: 5.9 SpO2: 95 % EtCO2: 33 mmHg Airway: 8.0 @ 25 cm at the Teeth. Skin Integrity: WDL MDI Inhaled Medications: Ipratroprium Marion and Albuterol Breath Sounds: clear Secretions: large, white, thin Assessment / Events / Plan of the Day: Received intubated pt on VCV 480 x15, PEEP: 5, on 35% FiO2 ~20:20 pt adequately triggering breaths -transitioned pt to PSV ~05:00 SBT Assessment Initial Vent Settings: PSV 5/5 on 40% FiO2 Initial Measurements: HR:59 RR: 16 VT: 469 MV: 8.8 SpO2: 91 ETCO2: 31 RASS (Woodward Agitation-Sedation Scale): -2-->light sedation SBT Vent Settings: PEEP: 5 30 minute measurements: HR: 58 RR: 17 VT: 491 MV: 8.5 SpO2: 92 ETCO2: 32 Assessment during SBT: PASSED Plan: Continue to support pt within AMV protocol, wean vent settings as pt tolerated, consider extubation pending mental status Cuauhtemoc Guevara RCP * Fei Mcclain RCP - 11/18/2018 2:14 PM EDT AMV Protocol: Yes SBT Protocol: Yes SBT: failed P/S trials due to increased RR and secretions, decreased sat Vent Settings: Servo I Ventilator Mode: (S) VC Tidal Volume Set: 480 Resp Rate Set: 15 PEEP Set: 5 FiO2: 35 % Ventilator Measurements: Resp: 25 Vt Exhaled: 516 PIP: 19 MAP: 8 Plateau Press: 14 Ve: 12.5 PEEP: 7 cmH20 SpO2: 93 % EtCO2: 28 mmHg Airway: 8.0 @ 25 cm at the Teeth. Skin Integrity: WDL 6p albuterol/atrovent q6 Breath Sounds: rhonchi Secretions:large loose clear white Assessment / Events / Plan of the Day: pt tried on P/S X 2 Pt RR increases, secretions increase and sat decreases. ? Pulmonary edema? Sedation was adjusted Pt returned to VC CXR done, Will continue to monitor pt and wean as tolerated cxrFINDINGS/IMPRESSION: Cardiothymic contours are unremarkable. Supporting devices are unremarkable. Streaky densities in both infrahilar regions suggest atelectasis/infiltrates. Tiny pulmonary nodules in the periphery of the left lung are unchanged. Slight improvement of the aeration of both lungs. No pleural effusions. Bony and soft tissue structures show no acute findings. FEI MCCLAIN RCP * Giovanni Phillip MD - 11/18/2018 7:47 AM EDT MICU STAFF PROGRESS NOTE Critical Care Medicine Author: GIOVANNI PHILLIP Patient seen and examined on critical care rounds. Failed transition to PSV with RR into the 30's this morning. More comfortable in volume control. Hypoglycemic to the 70's. Hypertensive to 160's/100's. Continues to have copious oral secretions. Active problems: Severe DTs Opiate use disorder with withdrawal Intubation for airway protection from acute delirium Exam: Last value Range last 24 hrs Temperature Temp: 36.2 ??C (97.2 ??F) Temp: [36.2 ??C (97.2 ??F)-36.6 ??C (97.9 ??F)] Heart Rate Heart Rate: 63 Heart Rate: [51-71] Blood Pressure BP: (!) 164/102 BP: (130-164)/(83-105) Respiratory Rate Resp: 21 Resp: [11-26] SpO2 SpO2: 95 % SpO2: [90 %-98 %] Art BP BP (Arterial Line): -- Ventilator: VC Current Drips: Propofol 50 Hydromorphone prn Intubated, sedated, RASS -4 Pupils dilated + clear oral secretions diaphoretic Lungs with prolonged expiratory phase Heart regular, no murmurs Abdomen soft, non-tender RUE edema unchanges Labs/studies: WBC 8.7 Hg 17.3 plt 180 Na 145 K 4.3 Cl 109 CO2 28 Creat 0.58 LFTs normal ASSESSMENT, MANAGEMENT, and DECISION MAKIN43 y/o man with apparently severe underlying COPD admitted with severe ETOH withdrawal/DTs followedby obtundation after starting high dose ativan infusion. His delirium is controlled with propofol, but he did not pass an SBT this morning with severe tachypnea in pressure support. He has signs of opiate withdrawal, so this may be complicating his attempt at extubation. If he is limited in his ability to wean by his lung disease, we can continue sedation with propofol and fentanyl. If his respiratory status improves and we are moving towards extubation, we will begin to load him with phenobarbfor his severe ETOH withdrawal prior to stopping the propofol. Plan: Continue propofol Add fentanyl Re-trial in PSV after managing his opiate withdrawal If he can transition to PSV, repeat SBT If he passes an SBT, plan to given first loading dose with phenobarb prior to extubation and stopping the propofol If he cannot pass an SBT, we will hold off on phenobarb while on propofol Once extubated, we will need to evaluate whether to resume his outpatient methadone maintenance Continue bronchodilators, hold off on steroids and antibiotics IS PATIENT CRITICALLY ILL ? Is there a high potential of sudden, clinically significant, or life threatening deterioration? Yes Is there a need for direct personal assessment and management to treat/prevent multiple vital organfailure/deterioration? Yes If this patient is not critically ill, I certify the patient requires continued in-patient hospitalization for [] PATIENT IS CRITICALLY ILL WITH THESE DIAGNOSES BEING MANAGED BY CCS TEAM: Delirium Alcoholic Encephalopathy Alcoholic Intubated for airway protection secondary to acute DTs I personally performed 35 minutes of aggregate critical care time exclusive of procedures and teaching. This includes time spent during direct patient evaluation and reassessment, interpreting diagnostic tests, directing life and/or organ supporting interventions and documentation on the unit. GIOVANNI PHILLIP * Afia Layton RCP - 11/17/2018 10:14 PM EDT AMV Protocol: Yes SBT Protocol: Yes SBT: Not performed/Excluded: Not tolerating PSV, withdrawal Vent Settings: Servo I Ventilator Mode: VC Tidal Volume Set: 480 Resp Rate Set: 15 PEEP Set: 5 FiO2: (S) 35 % Ventilator Measurements: Resp: 26 Vt Exhaled: 437 PIP: 46 MAP: 15.8 Plateau Press: 13 Ve: 12.2 PEEP: 7 cmH20 SpO2: 91 % EtCO2: 31 mmHg Airway: 8.0 @ 25 cm at the Teeth. Skin Integrity: WDL Breath Sounds: rhonchi Secretions: copious thick clear Assessment / Events: Patient received on VCV 15 x 480 (7cc/kg IBW) +5 30%. Taking ~2 spontaneous breaths over set rate, attempted to transition to PSV, but MVe dropped ~ 3. 0233 Transitioned patient to PSV 12/5 35%, tolerated for about 30 minutes, but was increasingly agitated and tachypneic despite increase in sedation. Returned to previous settings. 0411 Increased FiO2 to 35% for sustained SpO2 90-91%. Plan: Team wanted to extubate today, but unable to perform SBT as patient does not tolerate PSV. MDto change duoneb order to MDI if patient is to remain intubated. Afia Layton RCP * Argelia Mccann RN - 11/17/2018 6:55 PM EDT EOS: Pt arrived via ambulance on stretcher at approximately 1750. Dr. Phillip notified. Orders received and initiated. See flowsheet for further assessments. * Fei Mcclain RCP - 11/17/2018 5:58 PM EDT 11/17/18 1755 Ventilator Settings Servo I Ventilator Mode VC Set FiO2 30 % Resp. Rate Set 15 Tidal Volume Set 480 Set PEEP (cm H2O) 5 Ventilator Measurements Resp 17 SpO2 98 % ETCO2 (mmHg) 36 mmHg Tidal Volume Measured Insp. 483 mL Mean Airway Pressure (cm H2O) 11 Minute Ventilation Total Exhaled (L/min) 8.3 Tidal Volume Measured Exp. 488 Peak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 nebulizer solution 3 mL 3 mL Nebulization Q4H PRN Del Ortega MD 3 mL at 11/20/18 0009 ? ? dexmedetomidine (PRECEDEX) 4 mcg/mL (standard Adult & Pedi greater than 20kg) infusion (premix) 0-1.7 mcg/kg/hr Intravenous Continuous Del Ortega MD 7.3 mL/hr at 11/20/18 1400 0.4 mcg/kg/hr at 11/20/18 1400 ??? glycopyrrolate (ROBINUL) injection 0.1 mg 0.1 mg Intravenous BID Garret Gerard, DO 0.1 mg at11/20/18 0833 ??? heparin (Porcine) subcutaneous injection 5,000 Units 5,000 Units Subcutaneous Q8H [facility] Del Ortega MD 5,000 Units at 11/20/18 1344 Medical Review of Systems: not obtained Constitutional: HEENT: Cardiovascular: Respiratory: GI: /BOARD TURNER (include LMP if applicable): Endocrine: Musculoskeletal: Integumentary: Neurological: Hematologic/Lymphatic: Allergic/Immunologic: Psychiatric: See above Social History: Not obtained Family Medical/Psychiatric History: (mental illness, substance use, suicide) Not obtained Extent of History Determination: Iron # of descriptors, reviewed systems, PFS elements & level of hx with ? X? HPI Descriptors 1-3 1-3 4+ xx 4+ Reviewed Systems x 0 1 2-9 10 Past, Fam, Soc Hx x 0 0 1 3 Level of Hx PF x EPF D C Physical Exam: Last value Range last 24 hrs Temperature Temp: 36.7 ??C (98.1 ??F) Temp: [36.4 ??C (97.5 ??F)-37.1 ??C (98.8 ??F)] Heart Rate Heart Rate: 62 Heart Rate: [44-84] Blood Pressure BP: 152/86 BP: (141-183)/(76-105) Respiratory Rate Resp: 18 Resp: [14-30] SpO2 SpO2: 93 % SpO2: [91 %-96 %] Mental Status Evaluation: Musculoskeletal System: Muscle Strength/Tone (note atrophy, abnormal movements): Able to sit up in bed; appeared to have right sided facial droop but smiled equally on both sides after prompting by nurse Gait and Station: deferred Psychiatric: ?? Appearance: older than stated age , unkempt and in hospital clothes Behavior: intermittent eye contact, sometimes eyes closed, swaying ?? Speech: slow, soft, slurred speech ?? Language: fluent in greek and with word finding difficulty ?? Mood: hungry Affect: flat ?? Thought Process: concrete ?? Associations: loose ?? Thought Content: no homicidal ideation no suicidal ideation Perception: not observed responding to internal stimuli ?? Orientation: person and to being in a hospital, the year, gave incorrect month, unable to identify circumstances ?? Attention/Concentration: poor Cognition: grossly impaired by interview ?? Memory: memory impairment noted: unable to recall events leading to hospitalizaiton ?? Fund of Knowledge: unable to assess ?? Insight: poor/impaired Judgment: poor/impaired Pertinent Diagnostic Testing: n/a Extent of Exam Determination: Iron completed bullets and level of exam with x. Bullets Completed 1-5 6-8 9+ All Psych & Constitutional + 1 Musculoskeletal Level of Exam PF EPF D x C Assessment: 43 year old patient with unclear past medical history (reported AUD, OUD, COPD; not on maintenance methadone) with acute encephalopathy, likely secondary to ETOH and possibly opioid withdrawal. When patient was seen today, agitation and mentation appeared improved from prior reports (had received 1x dose scheduled phenobarb and methadone). He did appear quite sedated. He has been treated for multiple overdoses and has had seizures with while withdrawing in the past per somewhat limited chart review. As both phenobarbital, methadone (standard taper entered), and seroquel are being introduced today,and precedex is being weaned, no further changes are recommended unless the situation changes. He may need a slower taper given his use history is unknown. We recommended not restarting abilify 2.5 mg QHS as this low dose may indicate that it has just been started, and could lead to agitation/side effects related to alpha 1 blockade including dizziness and hypotension. D/t condition today, we were unable to discuss nature of his substance abuse and psychiatric history. Diagnosis: Acute encephalopathy, likely secondary to ETOH and possibly opioid withdrawal AUD OUD Plan/Recommendations: -continue standard methadone taper as scheduled; will reassess dosing at follow ups when able to discuss withdrawal syndromes -continue to wean precedex as able -continue phenobarbital 45 mg BID -start seroquel 200 mg QHS tonight -hold abilify 2.5 mg QHS given -psychiatry will continue to follow Recommendations were communicated to primary shipping team leader Dr. Ortega. Coding Determination Complexity of MDM Determination: Iron appropriate # of Dx, Amt, complexity of date, Risk, & corresponding level of MDM with x.2 out of 3 elements in row must be met to qualify. # of Possible Diagnoses or Management Options Amount and/or Complexity of Data Risk of Complications, Morbidity, and or Mortality Type of Decision Making Minimal Minimal/None Minimal Straightforward Limited Limited Low Low Multiple Moderate Moderate Moderate x Extensive x Extensive x High x High Inpatient Consult Service Code Determination: Iron Hx, Exam, MDM & ELIUD/CPT Code with ? X? . All polanco components in the row must be met to qualify for a given code. HISTORY EXAM MDM ELIUD / CPT CODE PF PF Straightforward 3200 / 79281 x EPF EPF Straightforward 3210 / 22616 D D Low 3220 / 76173 C C Moderate 3230 / 00359 C x C x High x 3240 / 08648 Associated attestation - Jani Reyes MD - 11/23/2018 11:28 AM EDT Psychiatry Attending Note I discussed the case with the resident, and saw and evaluated the patient (on 11/20) within 24 hoursof the service described in the resident's note. I reviewed the patient???s history during the visit and I agree with the details as written. My exam confirms the resident's findings. The assessment and plan were formulated in discussion with me and I agree with them as documented. Major issues addressed/discussed: 43M with hx of opioid use d/o, alcohol use d/o, admitted with AMSpossibly related to alcohol withdrawal. Quite sedated now due to receiving various meds including phenobarb for confusion/agitation. Recommendation: methadone taper until dose can be confirmed. Agreewith other recs as below (cont seroquel, hold abilify) and we will continue to follow. Jani Reyes MD Psychiatry Consultation Pager: [phone] * Plan of Care - Edvin Worthington, [facility] - 11/20/2018 2:48 PM EDT Speech Therapy Bedside Swallow Evaluation Patient Profile: Garret Barros is a 43 y.o. male admitted on 11/17/2018 for severe ETOH withdrawal/DTsfollowed by obtundation after starting high dose ativan infusion. Extubated on 11/18/18. Pt has persistent acute delirium from alcohol withdrawal. Speech consulted for swallow evaluation. Prior Level of Swallow Function: Regular diet and thin liquids. Subjective: Pt is alert but drowsy. Objective: Pt seen for evaluation today. Pain: No report of pain. Respiratory Status: Nasal canula 4 L/min Saturating at 94%. Vision: Not tested. Hearing: WFL Current Diet: Clear Liquid Feeding / Oral Care Status: Pt is dependent Cognitive-Linguistic Status: confused Follows Commands: Follows single step commands Positioning: HOB at 55 degrees Oral / Laryngeal Mechanism Clinical Assessment: ?? Lingual: Normal protrusion and ROM in all planes. ?? Labial / Buccal: Normal protrusion and retraction. ?? Velar: Uvula is midline. Velar elevation is present. ?? Vocal fold function and airway protection: Vocal quality is clear. Hypophonic. ?? Speech Intelligibility: Intelligible. ?? Mucosa: Intact. ?? Dentition: edentulous, no dentures Bolus Presentation(s) ?? Thin liquid via straw ?? Puree Oral Preparatory Phase ?? Mastication: N/A ?? Oral Transit: Severely prolonged oral transit with purees. Slightly prolonged oral transit with thin liquids. Suspect related to mental status. ?? Bolus Cohesion: Suspected to be decreased. ?? Labial Seal / Loss: Negative. ?? Oral Stasis: Negative. Pharyngeal Phase ?? Laryngeal Elevation: Functional to palpation. Delayed initiation is suspected. ?? Vocal quality change: No change in vocal quality following both purees and thin liquids. ?? Cough / throat clear: No coughing / throat clearing following swallows. ?? Pt. complaint of food getting stuck: Negative. ?? Fatigue across trials: No ?? Respiratory rate and respiratory swallow pattern: No change. Esophageal Phase ?? Appears to be WFL, No overt clinical s/s of esophageal phase dysphagia noted during this evaluation. Compensatory Techniques: Pt was unable to return demonstrate effective use of strategies secondary to current mental status Education: Patient educated on results and recommendations, and verbalized understanding. Patient status, treatment and swallow recommendations were discussed with nursing. Assessment: Pt presents with decreased oral manipulation of both purees and thin liquids. Oral manipulation of purees can take upward of 1 minute for one bite. Suspected this decreased oral manipulation is related to mental status. No overt signs of aspiration are noted with both purees and thin liquids. Below recommendations are made. Diagnosis: Moderate oral dysphagia with suspected pharyngeal dysphagia. Recommendations: Diet: Puree, Thin liquids PO medications: whole in bite of pudding or applesauce Aspiration precautions: Upright position during meals and for at least 30 mins following Small sips and bites while eating Staff to assist pt with feeding. Pt would benefit from skilled [facility] services to maximize swallow function and safety while in the hospital and to address limitations as noted above. Speech Therapy Goals: (To be met by discharge) Pt will tolerate least restrictive diet without evidence of dysphagia / aspiration. Pt / caregiver will be independent with aspiration precautions, diet modifications, and safe swallowing strategies. Plan: Therapy Frequency: 2-4 times/wk Pt./family are in agreement with treatment plan. Total Evaluation Minutes, Speech Language Pathology: 30 Thank you for this consult with this patient. Please feel free to page me with any questions or concerns. Edvin Wrothington MS, [facility] Pager: [phone] Speech-Language Pathology Inpatient Rehabilitation Department * Plan of Care - Perla Aguilar RN - 11/20/2018 2:27 PM EDT Problem: Skin Integrity Impairment, Risk/Actual (Adult) Intervention: Promote Skin Healing Milady-care done this shift. Intervention: Promote/Optimize Nutrition 11/20/18 1200 Hygiene Care Oral Care lip lubricant applied;oral swabbing - Intervention: Prevent/Manage Excess Moisture 11/19/18 1900 11/20/18 0745 Hygiene Care Perineal Care -- perineal area cleansed;catheter care provided Bathing/Skin Care bath, complete -- Skin Interventions Skin Protection -- adhesive use limited;electrode sites changed;incontinence pads utilized;pulse oximeter probe site changed;sacral silicone foam dressing in place;skin sealant/moisture barrier applied;tubing/devices free from skin contact - Intervention: Prevent/Minimize Sheer/Friction Injuries 11/20/18 0745 11/20/18 1200 Skin Interventions Pressure Reduction Devices pressure-redistributing mattress utilized -- Pressure Reduction Techniques frequent weight shift encouraged;heels elevated off bed;weight shift assistance provided -- Positioning Positioning/Transfer Devices -- pillows;in use - Goal: Identify Related Risk Factors and Signs and Symptoms Related risk factors and signs and symptoms are identified upon initiation of Human Response Clinical Practice Guideline (CPG) Outcome: Ongoing (Interventions Implemented as Appropriate) 11/20/18 1400 Skin Integrity Impairment, Risk/Actual Skin Integrity Impairment, Risk/Actual: Related Risk Factors cognitive impairment No skin breakdown noted at this time. Goal: Skin Integrity/Wound Healing Patient will demonstrate the desired outcomes by discharge/transition of care. Outcome: Ongoing (Interventions Implemented as Appropriate) 11/20/18 1400 Skin Integrity Impairment, Risk/Actual (Adult) Skin Integrity/Wound Healing making progress toward outcome - Problem: Patient Care Overview Goal: Plan of Care Review Outcome: Ongoing (Interventions Implemented as Appropriate) 11/20/18 1400 Plan of Care Review Progress improving Coping/Psychosocial Plan Of Care Reviewed With patient - Goal: Individualization & Mutuality Outcome: Ongoing (Interventions Implemented as Appropriate) 11/20/18 1400 Individualization Patient Specific Preferences Pt states I don't know. Patient Specific Goals I want to drink and eat. Patient Specific Interventions Clear liquid diet start. Plan to advance diet as tolerated. Mutuality/Individual Preferences What Anxieties, Fears or Concerns Do You Have About Your Health or Care? Pt states I don't know. What Questions Do You Have About Your Health or Care? Pt states I don't. What Information Would Help Us Give You More Personalized Care? Pt states I don't know. Swallow evaluated at bedside by nursing @ 1230 per MD request. Pt sat straight up in bed, HOB 60-90degrees. 30cc of water given to patient twice. Speech and lung henriquez are clear after each swallow of water. Pt able to cough and deep breathe when asked. Pt able to handle oral secretions and maintain a patent airway. Reported to Blue team. Order for clear liquids placed in chart. Goal: Fall Prevention-Safe Patient Handling Outcome: Ongoing (Interventions Implemented as Appropriate) 11/20/18 0745 11/20/18 1200 Restraint Interventions Safety Promotion/Fall Prevention -- fall prevention program maintained Bañuelos Fall Risk History of Falling 0 -- Secondary Diagnosis 15 -- Ambulatory Aids 0 -- Intravenous Therapy/Heparin/Saline Lock 20 -- Gait/Transferring 0 -- Mental Status 15 -- Score 50 -- OTHER Bañuelos Fall Risk High -- Positioning Body Position -- legs elevated Activity Activity Type -- bedrest Activity Assistance Provided -- assistance, 1 person - Goal: Infection Control Outcome: Ongoing (Interventions Implemented as Appropriate) 11/20/18 0745 11/20/18 1200 Safety Interventions Isolation Precautions -- standard precautions maintained Infection Prevention environmental surveillance performed;personal protective equipment utilized;rest/sleep promoted -- Coping Strategies Supportive Measures positive reinforcement provided;relaxation techniques promoted -- - Goal: Interdisciplinary Rounds/Family Conf Outcome: Ongoing (Interventions Implemented as Appropriate) 11/20/18 1400 Interdisciplinary Rounds/Family Conf Summary am rounding done @ 0930 Participants physician;nursing;pharmacy * Problem: Restraint Interventions Intervention: Safety Promotion/Fall Prevention 11/20/18 1200 Restraint Interventions Safety Promotion/Fall Prevention fall prevention program maintained - Intervention: Diversional Activities 11/20/18 0745 Coping Strategies Diversional Activities other (see comments) (increased aggitation with TV/music,keeping quiet environment) - Intervention: All Alarms 11/20/181199 Restraint Interventions All Alarms alarm(s) activated and audible - Intervention: Manager Technical Sales Protection 11/20/18 1200 Restraint Interventions Manager Technical Sales Protection IV pole/bag removed from visual field;tubing secured - Intervention: Range Of Motion 11/20/18 1000 11/20/181199 Restraint Interventions Range Of Motion -- Bilateral Upper and Lower Extremities LUE Range Of Motion AROM (active range of motion) performed -- RUE Range Of Motion AROM (active range of motion) performed -- Bilateral Upper and Lower Extremities Range Of Motion -- AROM (active range of motion) performed - Intervention: Body Position 11/20/181199 Positioning Body Position legs elevated - Intervention: Trust Relationship/Rapport 11/20/18744 Coping Strategies Trust Relationship/Rapport care explained;emotional support provided;reassurance provided - Problem: Fall Risk, (Adult,Obstetrics,Pediatric) Intervention: Monitor/Assist with Self Care 11/20/181199 Activity Activity Type bedrest Activity Assistance Provided assistance, 1 person Intervention: Reduce Risk/Promote a Safe Environment 11/20/18 0711/20/181199 Restraint Interventions Safety Promotion/Fall Prevention -- fall prevention program maintained Safety Interventions Environmental Safety Modification clutter free environment maintained;lighting adjusted -- Safety/Security Measures -- bed alarm set Intervention: Review Medications/Identify Contributors to Fall Risk 11/20/18744 Safety Interventions Medication Review/Management medications reviewed Intervention: Prevent [place] Drop/Fall 11/20/181199 Restraint Interventions Safety Promotion/Fall Prevention fall prevention program maintained Goal: Identify Related Risk Factors and Signs and Symptoms Related risk factors and signs and symptoms are identified upon initiation of Human Response Clinical Practice Guideline (CPG) Outcome: Ongoing (Interventions Implemented as Appropriate) 11/20/18 0544 Fall Risk, Fall Risk: Related Risk Factors other (see comments) (low heart rate and sedatives ) Fall Risk, : Signs and Symptoms presence of fall risk factors Goal: Absence of Maternal Fall Patient will demonstrate the desired outcomes by discharge/transition of care. Outcome: Ongoing (Interventions Implemented as Appropriate) 11/20/18 1401 Fall Risk, (Adult,Obstetrics,Pediatric) Absence of Maternal Fall making progress toward outcome Problem: Health Knowledge, Opportunity to Enhance (Adult,NICU,,Obstetrics,Pediatric) Intervention: Enhance Health Knowledge - Goal: Identify Related Risk Factors and Signs and Symptoms Related risk factors and signs and symptoms are identified upon initiation of Human Response Clinical Practice Guideline (CPG) 11/20/18 0544 Health Knowledge, Opportunity to Enhance Health Knowledge, Opportunity for Enhanced: Related Risk Factors reinforcement inadequate;other (see comments) (pt is confused. ) Signs and Symptoms (Health Knowledge Enhance) knowledge/skill deficiency Goal: Knowledgeable about Health Subject/Topic Patient will demonstrate the desired outcomes by discharge/transition of care. Outcome: Ongoing (Interventions Implemented as Appropriate) 11/20/18 1401 Health Knowledge, Opportunity to Enhance (Adult,NICU,[place],Obstetrics,Pediatric) Knowledgeable about Health Subject/Topic making progress toward outcome - Comments: Plan of Care reviewed. * Plan of Care - Sailaja Dumas RN - 11/18/2018 5:33 PM EDT OUTCOME EVALUATION NOTE: OUTCOME SUMMARY: Pt RASS -3 to 2; attempts to open eyes to command. Propofol titrated between 50 and 30. Started on Fentanyl after a.m. rounds; Fentanyl currently at 250. Pt continues to have copious clear/white secretions suctioned from endotracheal tube and oral. CXR performed to rule out questionable pulmonary edema. Pt failed PS vent setting for tachypnea; currently VC 35%. Glycopyrrolate adminstered without much effect. Pt occasionally desats to mid 80s with need for suctioning; had one episode of desat to74 after secretions plugged vent filter; team aware, respiratory changed filter. Pt diaphoretic throughout shift, afebrile. HR 50s to 70s, SBP 130s to 160s. Urine output 100-200 q 2 hrs. Pt's right arm swollen and red on assessment in a.m.; provider notified and arm assessed and outlined. Last value Range last 48 hrs Temperature Temp: 37.1 ??C (98.8 ??F) Temp: [36.2 ??C (97.2 ??F)-37.3 ??C (99.1 ??F)] Heart Rate Heart Rate: 81 Heart Rate: [51-85] Blood Pressure BP: 151/87 BP: (130-173)/(80-105) Respiratory Rate Resp: 30 Resp: [11-81] SpO2 SpO2: 92 % SpO2: [74 %-98 %] PLAN MOVING FORWARD: Wean vent settings as tolerated INDIVIDUALIZED FALL PREVENTION INTERVENTIONS: Patient-specific fall risk factors per assessment: [current deficits]: Altered mental status; linesand devices; mobility deficit Assistance [level of assistance required for transfers and ambulation]: 2-assist Supervision [direct monitoring required during toileting and ADLs]: Dependent Surveillance [continuous indirect monitoring]: Lul ICU monitoring; purposeful hourly rounding Patient-specific fall prevention interventions for sensory deficits provided, if applicable: [X] Yes CPG GOAL OUTCOME EVALUATION: * Plan of Care - Laureano Robbins RN - 11/18/2018 5:16 AM EDT Problem: Patient Care Overview Goal: Plan of Care Review Outcome: Ongoing (Interventions Implemented as Appropriate) 11/18/18 0509 Plan of Care Review Progress progress toward functional goals as expected Coping/Psychosocial Plan Of Care Reviewed With patient OUTCOME EVALUATION NOTE: OUTCOME SUMMARY: Pt sedated on propofol throughout night. Withdrawing on LLE only initially- as night went on pt began to wake up more, opening eyes and moving all 4 extremities but not following commands. PRN dilaudid given x2. Excessive oral secretions and sputum through ETT- clear thick, otherwise resting comfortably on the vent at 35%. Sinus renzo to NSR overnight. BG low- corrected with 25ml D50. UOP adequate. PLAN MOVING FORWARD: Wean sedation as tolerated to manage withdrawal symptoms Phenobarb load today? Extubate when appropriate INDIVIDUALIZED FALL PREVENTION INTERVENTIONS: Patient-specific fall risk factors per assessment: [current deficits]: Intubated/sedated, lines/tubes Assistance [level of assistance required for transfers and ambulation]: Total care Supervision [direct monitoring required during toileting and ADLs]: Room near unit station, bed alarm on, frequent RN checks Surveillance [continuous indirect monitoring]: ICU razo, appropriate alarms activated and audible Patient-specific fall prevention interventions for sensory deficits provided, if applicable: [X] Yes CPG GOAL OUTCOME EVALUATION: documented in this encounter Plan of Treatment Upcoming Encounters Date Type Department Care Team (Late st Contact Info) Description 03/18/2024 8:30 AM EST [place] [phone] 03/18/2024 9:30 AM EST Office [place] [phone] Hetal Ojeda MD [facility] [address] [place] [address] documented as of this encounter Procedures Procedure Name Priority Date/Time Associated Diagnosis Comments EKG 12-LEAD STAT 11/26/2018 7:16 AM EDT Encounter for monitoring cardiotoxic drug therapy HEMOGRAM Routine 11/25/2018 8:22 AM EDT DIFFERENTIAL, AUTOMATED Routine 11/25/2018 8:22 AM EDT CBC (WITH DIFF) Routine 11/25/2018 8:22 AM EDT MAGNESIUM Routine 11/25/2018 8:22 AM EDT BASIC METABOLIC PANEL Routine 11/25/2018 8:22 AM EDT HEMOGRAM Routine 11/24/2018 9:10 AM EDT DIFFERENTIAL, AUTOMATED Routine 11/24/2018 9:10 AM EDT CBC (WITH DIFF) Routine 11/24/2018 9:10 AM EDT MAGNESIUM Routine 11/24/2018 9:10 AM EDT BASIC METABOLIC PANEL Routine 11/24/2018 9:10 AM EDT HEMOGRAM Routine 11/23/2018 2:34 PM EDT DIFFERENTIAL, AUTOMATED Routine 11/23/2018 2:34 PM EDT CBC (WITH DIFF) Routine 11/23/2018 2:34 PM EDT MAGNESIUM Routine 11/23/2018 2:34 PM EDT BASIC METABOLIC PANEL Routine 11/23/2018 2:34 PM EDT HEMOGRAM Routine 11/22/2018 6:44 AM EDT DIFFERENTIAL, AUTOMATED Routine 11/22/2018 6:44 AM EDT CBC (WITH DIFF) Routine 11/22/2018 6:44 AM EDT MAGNESIUM Routine 11/22/2018 6:44 AM EDT BASIC METABOLIC PANEL Routine 11/22/2018 6:44 AM EDT HEMOGRAM Routine 11/21/2018 12:30 AM EDT DIFFERENTIAL, AUTOMATED Routine 11/21/2018 12:30 AM EDT CBC (WITH DIFF) Routine 11/21/2018 12:30 AM EDT MAGNESIUM Routine 11/21/2018 12:30 AM EDT BASIC METABOLIC PANEL Routine 11/21/2018 12:30 AM EDT HEMOGRAM Routine 11/20/2018 2:12 AM EDT DIFFERENTIAL, AUTOMATED Routine 11/20/2018 2:12 AM EDT CBC (WITH DIFF) Routine 11/20/2018 2:12 AM EDT MAGNESIUM Routine 11/20/2018 2:12 AM EDT HEPATIC FUNCTION PANEL Routine 11/20/2018 2:12 AM EDT BASIC METABOLIC PANEL Routine 11/20/2018 2:12 AM EDT RAPID DRUG SCREEN, URINE Routine 11/19/2018 4:12 PM EDT RAPID DRUG SCREEN W/O CONFIRMATION, URINE Routine 11/19/2018 4:12 PM EDT EXTUBATE Routine 11/19/2018 9:37 AM EDT HEMOGRAM Routine 11/19/2018 2:21 AM EDT DIFFERENTIAL, AUTOMATED Routine 11/19/2018 2:21 AM EDT CBC (WITH DIFF) Routine 11/19/2018 2:21 AM EDT PHOSPHORUS Routine 11/19/2018 2:21 AM EDT MAGNESIUM Routine 11/19/2018 2:21 AM EDT HEPATIC FUNCTION PANEL Routine 11/19/2018 2:21 AM EDT BASIC METABOLIC PANEL Routine 11/19/2018 2:21 AM EDT XR CHEST ONE VIEW STAT 11/18/2018 2:0 5 PM EDT POCT GLUCOSE Routine 11/18/2018 1:55 PM EDT POCT GLUCOSE Routine 11/18/2018 8:16 AM EDT POCT GLUCOSE Routine 11/18/2018 6:06 AM EDT POCT GLUCOSE Routine 11/18/2018 4:01 AM EDT HEMOGRAM Routine 11/18/2018 2:10 AM EDT DIFFERENTIAL, AUTOMATED Routine 11/18/2018 2:10 AM EDT CBC (WITH DIFF) Routine 11/18/2018 2:10 AM EDT MAGNESIUM Routine 11/18/2018 2:10 AM EDT HEPATIC FUNCTION PANEL Routine 11/18/2018 2:10 AM EDT BASIC METABOLIC PANEL Routine 11/18/2018 2:10 AM EDT POCT GLUCOSE Routine 11/18/2018 2:09 AM EDT EKG 12-LEAD Routine 11/17/2018 8:32 PM EDT Alcohol withdrawal syndrome, with delirium XR CHEST ONE VIEW STAT 11/17/2018 6:2 4 PM EDT EKG 12-LEAD STAT 11/17/2018 6:12 PM EDT Alcohol withdrawal syndrome, with delirium HEMOGRAM Routine 11/17/2018 5:55 PM EDT DIFFERENTIAL, AUTOMATED Routine 11/17/2018 5:55 PM EDT CBC (WITH DIFF) Routine 11/17/2018 5:55 PM EDT MAGNESIUM Routine 11/17/2018 5:55 PM EDT HEPATIC FUNCTION PANEL Routine 11/17/2018 5:55 PM EDT BASIC METABOLIC PANEL Routine 11/17/2018 5:55 PM EDT POCT GLUCOSE Routine 11/17/2018 5:46 PM EDT documented in this encounter Results * EKG 12 Lead (11/26/2018 7:16 AM EDT) Ventricular rate 62 BPM MUSE SYSTEM Atrial Rate 62 BPM MUSE SYSTEM P-R Interval 140 ms MUSE SYSTEM QRS Duration 98 ms MUSE SYSTEM Q-T Interval 406 ms MUSE SYSTEM QTC Calculated (Bezet) 412 ms MUSE SYSTEM Calculated P [place] 38 degrees MUSE SYSTEM Calculated R [place] 84 degrees MUSE SYSTEM Calculated T [place] 57 degrees MUSE SYSTEM INTERPRETATION Normal sinus rhythm Normal ECG When compared with ECG of 17-NOV-2018 20:32, No significant change was found Confirmed by MD SEAN, SUE ([id number]) on 11/27/2018 10:35:14 AM MUSE SYSTEM 11/26/2018 7:16 AM EDT 11/27/2018 10:35 AM EDT Lucila Tatum MD ECG ORDERABLES MUSE SYSTEM * Differential, Automated (11/25/2018 8:22 AM EDT) Neutrophil % 41.7 % [facility] Neutrophil Absolute 2.40 1.70 - 6.10 x10(3)/[facility] Lymph % 39.3 % [facility] Lymphocytes Abs 2.3 0.9 - 3.2 x10(3)/[facility] Monocyte % 11.8 % [facility] Monocyte Abs 0.7 0.3 - 0.9 x10(3)/[facility] Eos % 5.7 % [facility] Eosinophils Abs 0.3 0.0 - 0.4 x10(3)/[facility] Basophil % 1.2 % [facility] Baso Absolute 0.1 0.0 - 0.1 x10(3)/[facility] Immature Gran % 0.30 % [facility] Comment: Immature granulocytes(IG's)percentage and absolute count will include metamyelocytes, myelocytes, and promyelocytes. Blood smears from CBCs yielding IG's will be scanned manually for concordance. If this scan disagrees with the automated IG or if promyelocytes are noted, a manual differential will be performed. Immature Gran Absolute 0.02 0.00 - 0.04 x10(3)/[facility] Blood specimen (specimen) 11/25/2018 8:22 AM EDT 11/25/2018 8:38 AM EDT Narrative Resulting Agency Comment Spec In Lab Maryjo Abreu III, MD HEMATOLOGY ORDERABLES [facility] [place] [address] * (ABNORMAL) Hemogram (11/25/2018 8:22 AM EDT) White Blood Cell 5.8 4.0 - 9.5 x10(3)/[facility] Red Blood Cell 5.82(H) 4.58 - 5.54 x10(6)/ L [facility] Hemoglobin 18.1(H) 13.7 - 16.5 gm/dL [facility] Hematocrit 55.0(H) 40.5 - 48.5 % [facility] Mean Cell Volume 94.5(H) 82.9 - 93.1 fL [facility] Mean Cell Hemoglobin 31.1 27.5 - 32.1 pg [facility] Mean Cell Hemoglobin Concentration 32.9 32.0 - 35.7 gm/dL [facility] Platelet 238 145 - 357 x10(3)/[facility] RDW Standard Deviation 43.4 36.0 - 45.0 [facility] RDW coefficient of variation 12.5 11.4 - 13.8 % [facility] Mean Platelet Volume 10.1 7.6 - 12.9 [facility] NRBC% auto 0.0 % [facility] NRBC Absolute 0.000 0.000 - 0.000 x10(3)/[facility] Blood specimen (specimen) 11/25/2018 8:22 AM EDT 11/25/2018 8:38 AM EDT Narrative Resulting Agency Comment Spec In Lab Maryjo Abreu III, MD HEMATOLOGY ORDERABLES [facility] [place] [address] * Magnesium (11/25/2018 8:22 AM EDT) Magnesium 0.91 0.69 - 1.07 mmol/L [facility] Blood specimen (specimen) 11/25/2018 8:22 AM EDT 11/25/2018 8:38 AM EDT Narrative Resulting Agency Comment Spec In Lab Maryjo Abreu III, MD CHEMISTRY ORDERABLES [facility] [place] [address] * (ABNORMAL) Basic Metabolic Panel (non-fasting) (11/25/2018 8:22 AM EDT) Glucose 99 65 - 199 mg/dL [facility] Comment:Diabetes: >=200 mg/d L plus symptoms Blood Urea Nitrogen 11 10 - 20 mg/dL [facility] Creatinine 0.78(L) 0.80 - 1.50 mg/dL [facility] Sodium 141 135 - 145 mmol/L [facility] Potassium 3.9 3.5 - 5.0 mmol/L [facility] Comment: Please note: ??Patients with WBC >100,000 may have falsely elevated Potassium levels. ??For accurate Potassium quantification in these patients send serum separator tube (gold top) for subsequent determinations. ??Contact the Clinical Chemistry Laboratory if there are any questions. Chloride 99 98 - 107 mmol/L [facility] Carbon Dioxide 33(H) 22 - 31 mmol/L [facility] Anion Gap 9 5 - 15 mmol/L [facility] Calcium 9.5 8.5 - 10.5 mg/dL [facility] Est Glomerular Filtration Rate 109 >=60 mL/min/1. 73 m?? [facility] Comment: The eGFR was calculated using the CKD-EPI equation. As with all creatinine based estimates of kidney function, eGFR values calculated with the CKD-EPI equation are not accurate in patients with acute kidney failure, extremes of body mass or the acutely ill. http://[facility] eGFR 126 >=60 mL/min/1. 73 m?? [facility] Comment: The eGFR was calculated using the CKD-EPI equation. As with all creatinine based estimates of kidney function, eGFR values calculated with the CKD-EPI equation are not accurate in patients with acute kidney failure, extremes of body mass or the acutely ill. http://[facility] Blood specimen (specimen) 11/25/2018 8:22 AM EDT 11/25/2018 8:38 AM EDT Narrative Resulting Agency Comment Spec In Lab Maryjo Abreu III, MD CHEMISTRY ORDERABLES [facility] [place] [address] * Differential, Automated (11/24/2018 9:10 AM EDT) Neutrophil % 50.6 % [facility] Neutrophil Absolute 2.63 1.70 - 6.10 x10(3)/[facility] Lymph % 30.3 % [facility] Lymphocytes Abs 1.6 0.9 - 3.2 x10(3)/[facility] Monocyte % 13.3 % [facility] Monocyte Abs 0.7 0.3 - 0.9 x10(3)/[facility] Eos % 4.4 % [facility] Eosinophils Abs 0.2 0.0 - 0.4 x10(3)/[facility] Basophil % 1.0 % [facility] Baso Absolute 0.0 0.0 - 0.1 x10(3)/[facility] Immature Gran % 0.40 % [facility] Comment: Immature granulocytes(IG's)percentage and absolute count will include metamyelocytes, myelocytes, and promyelocytes. Blood smears from CBCs yielding IG's will be scanned manually for concordance. If this scan disagrees with the automated IG or if promyelocytes are noted, a manual differential will be performed. Immature Gran Absolute 0.02 0.00 - 0.04 x10(3)/[facility] Blood specimen (specimen) 11/24/2018 9:10 AM EDT 11/24/2018 9:42 AM EDT Narrative Resulting Agency Comment Spec In Lab Maryjo Abreu III, MD HEMATOLOGY ORDERABLES [facility] [place] [address] * (ABNORMAL) Hemogram (11/24/2018 9:10 AM EDT) White Blood Cell 5.2 4.0 - 9.5 x10(3)/mc L [facility] Red Blood Cell 5.58(H) 4.58 - 5.54 x10(6)/mc L [facility] Hemoglobin 17.8(H) 13.7 - 16.5 gm/dL [facility] Hematocrit 51.2(H) 40.5 - 48.5 % [facility] Mean Cell Volume 91.8 82.9 - 93.1 fL [facility] Mean Cell Hemoglobin 31.9 27.5 - 32.1 pg [facility] Mean Cell Hemoglobin Concentration 34.8 32.0 - 35.7 gm/dL [facility] Platelet 233 145 - 357 x10(3)/mc L [facility] RDW Standard Deviation 42.2 36.0 - 45.0 [facility] RDW coefficient of variation 12.4 11.4 - 13.8 % [facility] Mean Platelet Volume 10.5 7.6 - 12.9 fL [facility] NRBC% auto 0.0 % [facility] NRBC Absolute 0.000 0.000 - 0.000 x10(3)/mc L [facility] Blood specimen (specimen) 11/24/2018 9:10 AM EDT 11/24/2018 9:42 AM EDT Narrative Resulting Agency Comment Spec In Lab Maryjo Abreu III, MD HEMATOLOGY ORDERABLES Performing Organization Address City/[facility]/ZIP Co de Phone Number [facility] [place] [address] * Magnesium (11/24/2018 9:10 AM EDT) Magnesium 0.87 0.69 - 1.07 mmol/L [facility] Blood specimen (specimen) 11/24/2018 9:10 AM EDT 11/24/2018 9:42 AM EDT Narrative Resulting Agency Comment Spec In Lab Maryjo Abreu III, MD CHEMISTRY ORDERABLES [facility] [place] [address] * (ABNORMAL) Basic Metabolic Panel (non-fasting) (11/24/2018 9:10 AM EDT) Glucose 102 65 - 199 mg/dL [facility] Comment:Diabetes: >=200 mg/d L plus symptoms Blood Urea Nitrogen 12 10 - 20 mg/dL [facility] Creatinine 0.59(L) 0.80 - 1.50 mg/dL [facility] Sodium 140 135 - 145 mmol/L [facility] Potassium 3.9 3.5 - 5.0 mmol/L [facility] Comment: Please note: ??Patients with WBC >100,000 may have falsely elevated Potassium levels. ??For accurate Potassium quantification in these patients send serum separator tube (gold top) for subsequent determinations. ??Contact the Clinical Chemistry Laboratory if there are any questions. Chloride 100 98 - 107 mmol/L [facility] Carbon Dioxide 30 22 - 31 mmol/L [facility] Anion Gap 10 5 - 15 mmol/L [facility] Calcium 9.1 8.5 - 10.5 mg/dL [facility] Est Glomerular Filtration Rate 122 >=60 mL/min/1. 73 m?? [facility] Comment: The eGFR was calculated using the CKD-EPI equation. As with all creatinine based estimates of kidney function, eGFR values calculated with the CKD-EPI equation are not accurate in patients with acute kidney failure, extremes of body mass or the acutely ill. http://[facility]ULSAnkf eGFR 142 >=60 mL/min/1. 73 m?? [facility] Comment: The eGFR was calculated using the CKD-EPI equation. As with all creatinine based estimates of kidney function, eGFR values calculated with the CKD-EPI equation are not accurate in patients with acute kidney failure, extremes of body mass or the acutely ill. http://[facility]/DHnkf Blood specimen (specimen) 11/24/2018 9:10 AM EDT 11/24/2018 9:42 AM EDT Narrative Resulting Agency Comment Spec In Lab Maryjo Abreu III, MD CHEMISTRY ORDERABLES [facility] [place] [address] * Differential, Automated (11/23/2018 2:34 PM EDT) Neutrophil % 40.9 % [facility] Neutrophil Absolute 2.79 1.70 - 6.10 x10(3)/[facility] Lymph % 40.6 % [facility] Lymphocytes Abs 2.8 0.9 - 3.2 x10(3)/[facility] Monocyte % 12.4 % [facility] Monocyte Abs 0.8 0.3 - 0.9 x10(3)/[facility] Eos % 4.5 % [facility] Eosinophils Abs 0.3 0.0 - 0.4 x10(3)/[facility] Basophil % 1.0 % [facility] Baso Absolute 0.1 0.0 - 0.1 x10(3)/[facility] Immature Gran % 0.60 % [facility] Comment: Immature granulocytes(IG's)percentage and absolute count will include metamyelocytes, myelocytes, and promyelocytes. Blood smears from CBCs yielding IG's will be scanned manually for concordance. If this scan disagrees with the automated IG or if promyelocytes are noted, a manual differential will be performed. Immature Gran Absolute 0.04 0.00 - 0.04 x10(3)/mcL [facility] Blood specimen (specimen) 11/23/2018 2:34 PM EDT 11/23/2018 2:59 PM EDT Narrative Resulting Agency Comment Spec In Lab Maryjo Abreu III, MD HEMATOLOGY ORDERABLES Performing Organization Address City/State/[facility] [[email or web address]] Co de Phone Number [facility] [place] [address] * (ABNORMAL) Hemogram (11/23/2018 2:34 PM EDT) White Blood Cell 6.8 4.0 - 9.5 x10(3)/[facility] Red Blood Cell 5.78(H) 4.58 - 5.54 x10(6)/[facility] Hemoglobin 18.4(H) 13.7 - 16.5 gm/dL [facility] Hematocrit 55.3(H) 40.5 - 48.5 % [facility] Mean Cell Volume 95.7(H) 82.9 - 93.1 fL [facility] Mean Cell Hemoglobin 31.8 27.5 - 32.1 pg [facility] Mean Cell Hemoglobin Concentration 33.3 32.0 - 35.7 gm/dL [facility] Platelet 256 145 - 357 x10(3)/[facility] RDW Standard Deviation 43.8 36.0 - 45.0 [facility] RDW coefficient of variation 12.4 11.4 - 13.8 % [facility] Mean Platelet Volume 10.6 7.6 - 12.9 [facility] NRBC% auto 0.0 % [facility] NRBC Absolute 0.000 0.000 - 0.000 x10(3)/[facility] Blood specimen (specimen) 11/23/2018 2:34 PM EDT 11/23/2018 2:59 PM EDT Narrative Resulting Agency Comment Spec In Lab Maryjo Abreu III, MD HEMATOLOGY ORDERABLES Performing Organization Address City/[facility] [[email or web address]] Co de Phone Number [facility] [place] [address] * Magnesium (11/23/2018 2:34 PM EDT) Pathologist [facility] Magnesium 0.86 0.69 - 1.07 mmol/L [facility] Blood specimen (specimen) 11/23/2018 2:34 PM EDT 11/23/2018 2:59 PM EDT Narrative Resulting Agency Comment Spec In Lab Maryjo Abreu III, MD CHEMISTRY ORDERABLES Performing Organization Address [facility] [[email or web address]] Co de Phone Number [facility] [place] [address] * (ABNORMAL) Basic Metabolic Panel (non-fasting) (11/23/2018 2:34 PM EDT) Pathologist [facility] Glucose 90 65 - 199 mg/dL [facility] Comment:Diabetes: >=200 mg/d L plus symptoms Blood Urea Nitrogen 13 10 - 20 mg/dL [facility] Creatinine 0.63(L) 0.80 - 1.50 mg/dL [facility] Sodium 142 135 - 145 mmol/L [facility] Potassium 3.6 3.5 - 5.0 mmol/L [facility] Comment: Please note: ??Patients with WBC >100,000 may have falsely elevated Potassium levels. ??For accurate Potassium quantification in these patients send serum separator tube (gold top) for subsequent determinations. ??Contact the Clinical Chemistry Laboratory if there are any questions. Chloride 100 98 - 107 mmol/L [facility] Carbon Dioxide 29 22 - 31 mmol/L [facility] Anion Gap 13 5 - 15 mmol/L [facility] Calcium 9.5 8.5 - 10.5 mg/dL [facility] Est Glomerular Filtration Rate 119 >=60 mL/min/1. 73 m?? [facility] Comment: The eGFR was calculated using the CKD-EPI equation. As with all creatinine based estimates of kidney function, eGFR values calculated with the CKD-EPI equation are not accurate in patients with acute kidney failure, extremes of body mass or the acutely ill. http://[facility]ULSAnkf eGFR 138 >=60 mL/min/1. 73 m?? [facility] Comment: The eGFR was calculated using the CKD-EPI equation. As with all creatinine based estimates of kidney function, eGFR values calculated with the CKD-EPI equation are not accurate in patients with acute kidney failure, extremes of body mass or the acutely ill. http://[facility]kf Blood specimen (specimen) 11/23/2018 2:34 PM EDT 11/23/2018 2:59 PM EDT Narrative Resulting Agency Comment Spec In Lab Maryjo Abreu III, MD CHEMISTRY ORDERABLES [facility] [place] [phone] * Differential, Automated (11/22/2018 6:44 AM EDT) Neutrophil % 67.3 % [facility] Neutrophil Absolute 4.77 1.70 - 6.10 x10(3)/[facility] Lymph % 20.1 % [facility] Lymphocytes Abs 1.4 0.9 - 3.2 x10(3)/[facility] Monocyte % 10.8 % [facility] Monocyte Abs 0.8 0.3 - 0.9 x10(3)/[facility] Eos % 0.8 % [facility] Eosinophils Abs 0.1 0.0 - 0.4 x10(3)/[facility] Basophil % 0.7 % [facility] Baso Absolute 0.0 0.0 - 0.1 x10(3)/[facility] Immature Gran % 0.30 % [facility] Comment: Immature granulocytes(IG's)percentage and absolute count will include metamyelocytes, myelocytes, and promyelocytes. Blood smears from CBCs yielding IG's will be scanned manually for concordance. If this scan disagrees with the automated IG or if promyelocytes are noted, a manual differential will be performed. Immature Gran Absolute 0.02 0.00 - 0.04 x10(3)/[facility] Blood specimen (specimen) 11/22/2018 6:44 AM EDT 11/22/2018 7:02 AM EDT Narrative Resulting Agency Comment Spec In Lab Maryjo Abreu III, MD HEMATOLOGY ORDERABLES [facility] [place] [address] * (ABNORMAL) Hemogram (11/22/2018 6:44 AM EDT) White Blood Cell 7.1 4.0 - 9.5 x10(3)/[facility] Red Blood Cell 5.72(H) 4.58 - 5.54 x10(6)/[facility] Hemoglobin 18.4(H) 13.7 - 16.5 gm/dL [facility] Hematocrit 53.1(H) 40.5 - 48.5 % [facility] Mean Cell Volume 92.8 82.9 - 93.1 fL [facility] Mean Cell Hemoglobin 32.2(H) 27.5 - 32.1 pg [facility] Mean Cell Hemoglobin Concentration 34.7 32.0 - 35.7 gm/dL [facility] Platelet 268 145 - 357 x10(3)/[facility] RDW Standard Deviation 42.5 36.0 - 45.0 fL [facility] RDW coefficient of variation 12.2 11.4 - 13.8 % [facility] Mean Platelet Volume 10.7 7.6 - 12.9 fL [facility] NRBC% auto 0.0 % [facility] NRBC Absolute 0.000 0.000 - 0.000 x10(3)/mc L [facility] Blood specimen (specimen) 11/22/2018 6:44 AM EDT 11/22/2018 7:02 AM EDT Narrative Resulting Agency Comment Spec In Lab Maryjo Abreu III, MD HEMATOLOGY ORDERABLES Performing Organization Address [facility] [[email or web address]] Co de Phone Number [facility] [place] [address] * Magnesium (11/22/2018 6:44 AM EDT) Pathologist [facility] Magnesium 0.78 0.69 - 1.07 mmol/L [facility] Blood specimen (specimen) 11/22/2018 6:44 AM EDT 11/22/2018 7:02 AM EDT Narrative Resulting Agency Comment Spec In Lab Maryjo Abreu III, MD CHEMISTRY ORDERABLES Performing Organization Address [facility] de Phone Number [facility] [place] [address] * (ABNORMAL) Basic Metabolic Panel (non-fasting) (11/22/2018 6:44 AM EDT) Glucose 103 65 - 199 mg/dL [facility] Comment:Diabetes: >=200 mg/d L plus symptoms Blood Urea Nitrogen 12 10 - 20 mg/dL [facility] Creatinine 0.52(L) 0.80 - 1.50 mg/dL [facility] Sodium 139 135 - 145 mmol/L [facility] Potassium 3.2(L) 3.5 - 5.0 mmol/L [facility] Comment: Please note: ??Patients with WBC >100,000 may have falsely elevated Potassium levels. ??For accurate Potassium quantification in these patients send serum separator tube (gold top) for subsequent determinations. ??Contact the Clinical Chemistry Laboratory if there are any questions. Chloride 99 98 - 107 mmol/L [facility] Carbon Dioxide 26 22 - 31 mmol/L [facility] Anion Gap 14 5 - 15 mmol/L [facility] Calcium 9.2 8.5 - 10.5 mg/dL [facility] Est Glomerular Filtration Rate 129 >=60 mL/min/1. 73 m?? [facility] Comment: The eGFR was calculated using the CKD-EPI equation. As with all creatinine based estimates of kidney function, eGFR values calculated with the CKD-EPI equation are not accurate in patients with acute kidney failure, extremes of body mass or the acutely ill. http://[facility]kf eGFR 149 >=60 mL/min/1. 73 m?? [facility] Comment: The eGFR was calculated using the CKD-EPI equation. As with all creatinine based estimates of kidney function, eGFR values calculated with the CKD-EPI equation are not accurate in patients with acute kidney failure, extremes of body mass or the acutely ill. http://[facility]ULSAnkf Blood specimen (specimen) 11/22/2018 6:44 AM EDT 11/22/2018 7:02 AM EDT Narrative Resulting Agency Comment Spec In Lab Maryjo Abreu III, MD CHEMISTRY ORDERABLES [facility] [place] [address] * (ABNORMAL) Differential, Automated (11/21/2018 12:30 AM EDT) Neutrophil % 73.8 % [facility] Neutrophil Absolute 6.43(H) 1.70 - 6.10 x10(3)/mc L [facility] Lymph % 15.9 % [facility] Lymphocytes Abs 1.4 0.9 - 3.2 x10(3)/mc L [facility] Monocyte % 7.9 % [facility] Monocyte Abs 0.7 0.3 - 0.9 x10(3)/[facility] Eos % 1.4 % [facility] Eosinophils Abs 0.1 0.0 - 0.4 x10(3)/[facility] Basophil % 0.5 % [facility] Baso Absolute 0.0 0.0 - 0.1 x10(3)/[facility] Immature Gran % 0.50 % [facility] Comment: Immature granulocytes(IG's)percentage and absolute count will include metamyelocytes, myelocytes, and promyelocytes. Blood smears from CBCs yielding IG's will be scanned manually for concordance. If this scan disagrees with the automated IG or if promyelocytes are noted, a manual differential will be performed. Immature Gran Absolute 0.04 0.00 - 0.04 x10(3)/[facility] Blood specimen (specimen) 11/21/2018 12:30 AM EDT 11/21/2018 12:37 AM EDT Narrative Resulting Agency Comment Spec In Lab Del Ortega MD HEMATOLOGY ORDERABLE S [facility] [place] [address] * (ABNORMAL) Hemogram (11/21/2018 12:30 AM EDT) White Blood Cell 8.7 4.0 - 9.5 x10(3)/[facility] Red Blood Cell 5.69(H) 4.58 - 5.54 x10(6)/[facility] Hemoglobin 18.2(H) 13.7 - 16.5 gm/dL [facility] Hematocrit 52.9(H) 40.5 - 48.5 % [facility] Mean Cell Volume 93.0 82.9 - 93.1 fL [facility] Mean Cell Hemoglobin 32.0 27.5 - 32.1 pg [facility] Mean Cell Hemoglobin Concentration 34.4 32.0 - 35.7 gm/dL [facility] Platelet 205 145 - 357 x10(3)/mc L [facility] RDW Standard Deviation 42.0 36.0 - 45.0 [facility] RDW coefficient of variation 12.2 11.4 - 13.8 % [facility] Mean Platelet Volume 10.4 7.6 - 12.9 [facility] NRBC% auto 0.0 % [facility] NRBC Absolute 0.000 0.000 - 0.000 x10(3)/mc L [facility] Blood specimen (specimen) 11/21/2018 12:30 AM EDT 11/21/2018 12:37 AM EDT Narrative Resulting Agency Comment Spec In Lab Del Ortega MD HEMATOLOGY ORDERABLE S Performing Organization Address City/[facility]/ZIP Co de Phone Number [facility] [place] [address] * Magnesium (11/21/2018 12:30 AM EDT) Magnesium 0.82 0.69 - 1.07 mmol/L [facility] Blood specimen (specimen) 11/21/2018 12:30 AM EDT 11/21/2018 12:37 AM EDT Narrative Resulting Agency Comment Spec In Lab Maryjo Abreu III, MD CHEMISTRY ORDERABLES [facility] [place] [address] * (ABNORMAL) Basic Metabolic Panel (non-fasting) (11/21/2018 12:30 AM EDT) Glucose 104 65 - 199 mg/dL [facility] Comment:Diabetes: >=200 mg/d L plus symptoms Blood Urea Nitrogen 10 10 - 20 mg/dL [facility] Creatinine 0.42(L) 0.80 - 1.50 mg/dL [facility] Sodium 140 135 - 145 mmol/L [facility] Potassium 3.5 3.5 - 5.0 mmol/L [facility] Comment: Please note: ??Patients with WBC >100,000 may have falsely elevated Potassium levels. ??For accurate Potassium quantification in these patients send serum separator tube (gold top) for subsequent determinations. ??Contact the Clinical Chemistry Laboratory if there are any questions. Chloride 105 98 - 107 mmol/L [facility] Carbon Dioxide 24 22 - 31 mmol/L [facility] Anion Gap 11 5 - 15 mmol/L [facility] Calcium 8.7 8.5 - 10.5 mg/dL [facility] Est Glomerular Filtration Rate 141 >=60 mL/min/1. 73 m?? [facility] Comment: The eGFR was calculated using the CKD-EPI equation. As with all creatinine based estimates of kidney function, eGFR values calculated with the CKD-EPI equation are not accurate in patients with acute kidney failure, extremes of body mass or the acutely ill. http://[facility]kf eGFR 163 >=60 mL/min/1. 73 m?? [facility] Comment: The eGFR was calculated using the CKD-EPI equation. As with all creatinine based estimates of kidney function, eGFR values calculated with the CKD-EPI equation are not accurate in patients with acute kidney failure, extremes of body mass or the acutely ill. http://[facility]SAnkf Blood specimen (specimen) 11/21/2018 12:30 AM EDT 11/21/2018 12:37 AM EDT Narrative Resulting Agency Comment Spec In Lab Maryjo Abreu III, MD CHEMISTRY ORDERABLES [facility] [place] [address] * (ABNORMAL) Differential, Automated (11/20/2018 2:12 AM EDT) Neutrophil % 76.7 % [facility] Neutrophil Absolute 8.18(H) 1.70 - 6.10 x10(3)/[facility] Lymph % 14.6 % [facility] Lymphocytes Abs 1.6 0.9 - 3.2 x10(3)/[facility] Monocyte % 6.2 % [facility] Monocyte Abs 0.7 0.3 - 0.9 x10(3)/[facility] Eos % 1.8 % [facility] Eosinophils Abs 0.2 0.0 - 0.4 x10(3)/[facility] Basophil % 0.4 % [facility] Baso Absolute 0.0 0.0 - 0.1 x10(3)/[facility] Immature Gran % 0.30 % [facility] Comment: Immature granulocytes(IG's)percentage and absolute count will include metamyelocytes, myelocytes, and promyelocytes. Blood smears from CBCs yielding IG's will be scanned manually for concordance. If this scan disagrees with the automated IG or if promyelocytes are noted, a manual differential will be performed. Immature Gran Absolute 0.03 0.00 - 0.04 x10(3)/[facility] Blood specimen (specimen) 11/20/2018 2:12 AM EDT 11/20/2018 2:19 AM EDT Narrative Resulting Agency Comment Spec In Lab Del Ortega MD HEMATOLOGY ORDERABLE S [facility] [place] [address] * (ABNORMAL) Hemogram (11/20/2018 2:12 AM EDT) White Blood Cell 10.6(H) 4.0 - 9.5 x10(3)/[facility] Red Blood Cell 5.81(H) 4.58 - 5.54 x10(6)/[facility] Hemoglobin 18.6(H) 13.7 - 16.5 gm/dL [facility] Hematocrit 54.9(H) 40.5 - 48.5 % [facility] Mean Cell Volume 94.5(H) 82.9 - 93.1 fL [facility] Mean Cell Hemoglobin 32.0 27.5 - 32.1 pg [facility] Mean Cell Hemoglobin Concentration 33.9 32.0 - 35.7 gm/dL [facility] Platelet 184 145 - 357 x10(3)/mc L [facility] RDW Standard Deviation 42.5 36.0 - 45.0 fL [facility] RDW coefficient of variation 12.2 11.4 - 13.8 % [facility] Mean Platelet Volume 10.6 7.6 - 12.9 [facility] NRBC% auto 0.0 % [facility] NRBC Absolute 0.000 0.000 - 0.000 x10(3)/ L [facility] Blood specimen (specimen) 11/20/2018 2:12 AM EDT 11/20/2018 2:19 AM EDT Narrative Resulting Agency Comment Spec In Lab Del Ortega MD HEMATOLOGY ORDERABLE S [facility] [place] [address] * (ABNORMAL) Hepatic Function Panel (11/20/2018 2:12 AM EDT) Protein, Total 7.1 6.1 - 8.0 gm/dL [facility] Albumin 3.6 3.2 - 5.2 gm/dL [facility] Aspartate Aminotransferase 26 0 - 39 unit/L [facility] Alanine Aminotransferase 43 0 - 55 unit/L [facility] Alkaline Phosphatase 45 40 - 120 unit/L [facility] Bilirubin, Total 1.2 0.2 - 1.3 mg/dL [facility] Bilirubin, Direct 0.5(H) 0.0 - 0.3 mg/dL [facility] Blood specimen (specimen) 11/20/2018 2:12 AM EDT 11/20/2018 2:19 AM EDT Narrative Resulting Agency Comment Spec In Lab Giovanni Phillip MD CHEMISTRY ORDERABLES Performing Organization Address [facility] [[email or web address] Co de Phone Number [facility] [place] [address] * Magnesium (11/20/2018 2:12 AM EDT) Magnesium 0.86 0.69 - 1.07 mmol/L [facility] Blood specimen (specimen) 11/20/2018 2:12 AM EDT 11/20/2018 2:19 AM EDT Narrative Resulting Agency Comment Spec In Lab Maryjo Abreu III, MD CHEMISTRY ORDERABLES Performing Organization Address [facility] [[email or web address]] Co de Phone Number [facility] [place] [address] * (ABNORMAL) Basic Metabolic Panel (non-fasting) (11/20/2018 2:12 AM EDT) Glucose 111 65 - 199 mg/dL [facility] Comment:Diabetes: >=200 mg/d L plus symptoms Blood Urea Nitrogen 9(L) 10 - 20 mg/dL [facility] Creatinine 0.48(L) 0.80 - 1.50 mg/dL [facility] Sodium 140 135 - 145 mmol/L [facility] Potassium 4.1 3.5 - 5.0 mmol/L [facility] Comment: Please note: ??Patients with WBC >100,000 may have falsely elevated Potassium levels. ??For accurate Potassium quantification in these patients send serum separator tube (gold top) for subsequent determinations. ??Contact the Clinical Chemistry Laboratory if there are any questions. Chloride 105 98 - 107 mmol/L [facility] Carbon Dioxide 22 22 - 31 mmol/L [facility] Anion Gap 13 5 - 15 mmol/L [facility] Calcium 8.8 8.5 - 10.5 mg/dL [facility] Est Glomerular Filtration Rate 133 >=60 mL/min/1. 73 m?? [facility] Comment: The eGFR was calculated using the CKD-EPI equation. As with all creatinine based estimates of kidney function, eGFR values calculated with the CKD-EPI equation are not accurate in patients with acute kidney failure, extremes of body mass or the acutely ill. http://[facility]SAnkf eGFR 154 >=60 mL/min/1. 73 m?? [facility] Comment: The eGFR was calculated using the CKD-EPI equation. As with all creatinine based estimates of kidney function, eGFR values calculated with the CKD-EPI equation are not accurate in patients with acute kidney failure, extremes of body mass or the acutely ill. http://[facility]SAnkf Blood specimen (specimen) 11/20/2018 2:12 AM EDT 11/20/2018 2:19 AM EDT Narrative Resulting Agency Comment Spec In Lab Maryjo Abreu III, MD CHEMISTRY ORDERABLES [facility] [place] [address] * (ABNORMAL) Rapid Drug Screen w/o Confirmation, Urine (11/19/2018 4:12 PM EDT) Barbiturates Screen, Urine Presumptive Pos(A) None Detected [facility] Comment: The barbiturate screen detects [...] Benzodiazepines Screen, Urine Presumptive Pos(A) None Detected [facility] Comment: The benzodiazepines screen detects [...] Cocaine Screen, Urine None Detected None Detected [facility] Comment: The cocaine metabolites screen detects benzoylecgonine (Cocaine Metabolite) at concentrations >150 ng/mL. A ? Presumptive Positive? result indicates that the screening result was positive but has not yet been confirmed by a highly-specific method. As with any screen, occasional false positive results from cross-reacting substances may occur. Not for Medico-Legal Purposes. Methadone Metabolites Screen, Urine Presumptive Pos(A) None Detected [facility] Comment: The methadone metabolite screen detects EDDP (major methadone metabolite) at concentrations >100 ng/mL. A ? Presumptive Positive? result indicates that the screening result was positive but has not yet been confirmed by a highly-specific method. As with any screen, occasional false positive results from cross-reacting substances may occur. Not for Medico-Legal Purposes. Opiate Screen, Urine None Detected None Detected [facility] Comment: The opiates screen detects [...] Cannabinoid Screen, Urine Presumptive Pos(A) None Detected [facility] Comment: The marijuana metabolites screen detects the THC metabolite ([id number]-delta 9-THC) at concentrations >20 ng/mL. A ? Presumptive Positive? result indicates that the screening result was positive but has not yet been confirmed by a highly-specific method. As with any screen, occasional false positive results from cross-reacting substances may occur. Not for Medico-Legal Purposes. Oxycodone Screen, Urine None Detected None Detected [facility] Comment: The oxycodone screen detects oxycodone and oxymorphone at concentrations >100 ng/mL. A ? Presumptive Positive? result indicates that the screening result was positive but has not yet been confirmed by a highly-specific method. As with any screen, occasional false positive results from cross-reacting substances may occur. Not for Medico-Legal Purposes. Buprenorphine Screen, Urine None Detected None Detected [facility] Comment: The buprenorphine screen detects buprenorphine at concentrations >5 ng/mL. A ? Presumptive Positive? result indicates that the screening result was positive but has not yet been confirmed by a highly-specific method. As with any screen, occasional false positive results from cross-reacting substances may occur. Not for Medico-Legal Purposes. Fentanyl Screen, Urine Presumptive Pos(A) None Detected [facility] Comment: The fentanyl screen detects fentanyl at concentrations >2 ng/mL. A ? Presumptive Positive? result indicates that the screening result was positive but has not yet been confirmed by a highly-specific method. As with any screen, occasional false positive results from cross-reacting substances may occur. Not for Medico-Legal Purposes. Tricyclics Screen, Urine Presumptive Pos(A) None Detected [facility] Comment: The tricyclics screen detects [...] Ethanol Screen, Urine None Detected None Detected [facility] Comment:This urine ethanol a ssay detects ethanol at concentrations >/= 100 mg/L. Amphetamines Screen, Urine None Detected None Detected [facility] Comment: The amphetamine screen detects d-amphetamine and d-methamphetamine at concentrations >300 ng/mL. A ? Presumptive Positive? result indicates that the screening result was positive but has not yet been confirmed by a highly-specific method. As with any screen, occasional false positive results from cross-reacting substances may occur. Not for Medico-Legal Purposes. Adulterants Screen, Urine Suspected(A) None Detected [facility] Comment: An adulteration screen performed on this urine sample produced a result that is suspicious for adulteration or dilution. Urine dilution or adulteration can produce false negative or positive drug screen results. All urine samples submitted for urine drugs of abuse analysis are tested for creatinine concentration, pH, and for the presence of oxidants, nitrites, and chromate. Urine specimen (specimen) 11/19/2018 4:12 PM EDT 11/19/2018 5:05 PM EDT Narrative Resulting Agency Comment Spec In Lab Del Ortega MD CHEMISTRY ORDERABLES Performing Organization Address [facility] [[email or web address]] Co de Phone Number [facility] [place] [address] * Rapid Drug Screen, Urine (SUSIE Request) (11/19/2018 4:12 PM EDT) SUSIE Conf Requested No [facility] SUSIE Requested See Comment [facility] Comment:Refer to Rapid Drug Screen w/o Confirmation, Urine for results. Urine specimen (specimen) 11/19/2018 4:12 PM EDT 11/19/2018 5:05 PM EDT Narrative Resulting Agency Comment Spec In Lab Giovanni Phillip MD URINE ORDERABLES Performing Organization Address [facility] [[email or web address]] Co de Phone Number [facility] [place] [address] * Phosphorus (11/19/2018 2:21 AM EDT) Phosphorus 4.0 2.5 - 4.5 mg/dL [facility] Blood specimen (specimen) Venous Draw / Unknown 11/19/2018 2:21 AM EDT 11/19/2018 3:15 AM EDT Narrative Resulting Agency Comment Spec In Lab Jana Fisher MD CHEMISTRY ORDERABLES Performing Organization Address [facility] [[email or web address]] [place] [address] * (ABNORMAL) Differential, Automated (11/19/2018 2:21 AM EDT) Pathologist [facility] Neutrophil % 77.8 % [facility] Neutrophil Absolute 10.39(H) 1.70 - 6.10 x10(3)/mc L [facility] Lymph % 13.8 % [facility] Lymphocytes Abs 1.8 0.9 - 3.2 x10(3)/mc L [facility] Monocyte % 6.4 % [facility] Monocyte Abs 0.9 0.3 - 0.9 x10(3)/ L [facility] Eos % 1.3 % [facility] Eosinophils Abs 0.2 0.0 - 0.4 x10(3)/[facility] Basophil % 0.4 % [facility] Baso Absolute 0.0 0.0 - 0.1 x10(3)/ L [facility] Immature Gran % 0.30 % [facility] Comment: Immature granulocytes(IG's)percentage and absolute count will include metamyelocytes, myelocytes, and promyelocytes. Blood smears from CBCs yielding IG's will be scanned manually for concordance. If this scan disagrees with the automated IG or if promyelocytes are noted, a manual differential will be performed. Immature Gran Absolute 0.04 0.00 - 0.04 x10(3)/ L [facility] Blood specimen (specimen) 11/19/2018 2:21 AM EDT 11/19/2018 2:27 AM EDT Narrative Resulting Agency Comment Spec In Lab Del Ortega MD HEMATOLOGY ORDERABLE S [facility] [place] [address] * (ABNORMAL) Hemogram (11/19/2018 2:21 AM EDT) Pathologist [facility] White Blood Cell 13.4(H) 4.0 - 9.5 x10(3)/mc L [facility] Red Blood Cell 5.61(H) 4.58 - 5.54 x10(6)/mc L [facility] Hemoglobin 17.9(H) 13.7 - 16.5 gm/dL [facility] Hematocrit 53.0(H) 40.5 - 48.5 % [facility] Mean Cell Volume 94.5(H) 82.9 - 93.1 fL [facility] Mean Cell Hemoglobin 31.9 27.5 - 32.1 pg [facility] Mean Cell Hemoglobin Concentration 33.8 32.0 - 35.7 gm/dL [facility] Platelet 179 145 - 357 x10(3)/ L [facility] RDW Standard Deviation 45.1(H) 36.0 - 45.0 fL [facility] RDW coefficient of variation 12.8 11.4 - 13.8 % [facility] Mean Platelet Volume 10.6 7.6 - 12.9 [facility] NRBC% auto 0.0 % [facility] NRBC Absolute 0.000 0.000 - 0.000 x10(3)/ L [facility] Blood specimen (specimen) 11/19/2018 2:21 AM EDT 11/19/2018 2:27 AM EDT Narrative Resulting Agency Comment Spec In Lab Del Ortega MD HEMATOLOGY ORDERABLE S [facility] [place] [address] * (ABNORMAL) Hepatic Function Panel (11/19/2018 2:21 AM EDT) Pathologist [facility] Protein, Total 6.5 6.1 - 8.0 gm/dL [facility] Albumin 3.6 3.2 - 5.2 gm/dL [facility] Aspartate Aminotransferase 22 0 - 39 unit/L [facility] Alanine Aminotransferase 45 0 - 55 unit/L [facility] Alkaline Phosphatase 42 40 - 120 unit/L [facility] Bilirubin, Total 1.2 0.2 - 1.3 mg/dL [facility] Bilirubin, Direct 0.5(H) 0.0 - 0.3 mg/dL [facility] Blood specimen (specimen) 11/19/2018 2:21 AM EDT 11/19/2018 2:27 AM EDT Narrative Resulting Agency Comment Spec In Lab Giovanni Phillip MD CHEMISTRY ORDERABLES Performing Organization Address [facility]/ZIP Co de Phone Number [facility] [place] [address] * Magnesium (11/19/2018 2:21 AM EDT) Magnesium 0.78 0.69 - 1.07 mmol/L [facility] Blood specimen (specimen) 11/19/2018 2:21 AM EDT 11/19/2018 2:27 AM EDT Narrative Resulting Agency Comment Spec In Lab Maryjo Abreu III, MD CHEMISTRY ORDERABLES Performing Organization Address [facility] [[email or web address]] Co de Phone Number [facility] [place] [address] * (ABNORMAL) Basic Metabolic Panel (non-fasting) (11/19/2018 2:21 AM EDT) Glucose 93 65 - 199 mg/dL [facility] Comment:Diabetes: >=200 mg/d L plus symptoms Blood Urea Nitrogen 9(L) 10 - 20 mg/dL [facility] Creatinine 0.52(L) 0.80 - 1.50 mg/dL [facility] Sodium 139 135 - 145 mmol/L [facility] Potassium 3.4(L) 3.5 - 5.0 mmol/L [facility] Comment: Please note: ??Patients with WBC >100,000 may have falsely elevated Potassium levels. ??For accurate Potassium quantification in these patients send serum separator tube (gold top) for subsequent determinations. ??Contact the Clinical Chemistry Laboratory if there are any questions. Chloride 104 98 - 107 mmol/L [facility] Carbon Dioxide 26 22 - 31 mmol/L [facility] Anion Gap 9 5 - 15 mmol/L [facility] Calcium 8.8 8.5 - 10.5 mg/dL [facility] Est Glomerular Filtration Rate 129 >=60 mL/min/1. 73 m?? [facility] Comment: The eGFR was calculated using the CKD-EPI equation. As with all creatinine based estimates of kidney function, eGFR values calculated with the CKD-EPI equation are not accurate in patients with acute kidney failure, extremes of body mass or the acutely ill. http://[facility]kf eGFR 149 >=60 mL/min/1. 73 m?? [facility] Comment: The eGFR was calculated using the CKD-EPI equation. As with all creatinine based estimates of kidney function, eGFR values calculated with the CKD-EPI equation are not accurate in patients with acute kidney failure, extremes of body mass or the acutely ill. http://[email or web address] Blood specimen (specimen) 11/19/2018 2:21 AM EDT 11/19/2018 2:27 AM EDT Narrative Resulting Agency Comment Spec In Lab Maryjo Abreu III, MD CHEMISTRY ORDERABLES [facility] [place] [address] * XR Chest PA or AP 1 view (11/18/2018 2:05 PM EDT) Anatomical Region Laterality Modality Chest N/A Digital Radiogra phy Impressions 11/18/2018 2:23 PM EDT FINDINGS/IMPRESSION: Cardiothymic contours are unremarkable. Supporting devices are unremarkable. Streaky densities in both infrahilar regions suggest atelectasis/infiltrates. Tiny pulmonary nodules in the periphery of the left lung are unchanged. Slight improvement of the aeration of both lungs. No pleural effusions. Bony and soft tissue structures show no acute findings. Thank you for letting us participate in the care of this patient. For questions regarding this report, please contact the number below. ? Narrative 11/18/2018 2:23 PM EDT EXAMINATION: XR CHEST PA OR AP 1 VIEW CLINICAL HISTORY: Concern for worsening pulmonary edema TECHNIQUE: 1 view of the chest COMPARISON: 11/17/2018 Procedure Note Rosa Marroquin MD - 11/18/2018 EXAMINATION: XR CHEST PA OR AP 1 VIEW CLINICAL HISTORY: Concern for worsening pulmonary edema TECHNIQUE: 1 view of the chest COMPARISON: 11/17/2018 IMPRESSION FINDINGS/IMPRESSION: Cardiothymic contours are unremarkable. Supporting devices are unremarkable. Streaky densities in both infrahilar regions suggestatelectasis/infiltrates. Tiny pulmonary nodules in the periphery of the left lung are unchanged. Slight improvement of the aeration of both lungs. No pleural effusions. Bony and soft tissue structures show no acute findings. Thank you for letting us participate in the care of this patient. Forquestions regarding this report, please contact the number below. Giovanni Phillip MD IMG DX ORDERABLES * POCT Glucose (11/18/2018 1:55 PM EDT) Glucose, POC 97 65 - 199 mg/dL [facility] Comment: Supplemental ranges: <140 mg/dL before meals <180 mg/dL all other times of the day Blood specimen (specimen) 11/18/2018 1:55 PM EDT 11/18/2018 1:55 PM EDT Giovanni Phillip MD POINT OF CARE TEST O RDERABILL Performing Organization Address City/[facility]/ZIP Co de Phone Number [facility] [place] [address] * POCT Glucose (11/18/2018 8:16 AM EDT) Glucose, POC 79 65 - 199 mg/dL [facility] Comment: Supplemental ranges: <140 mg/dL before meals <180 mg/dL all other times of the day Blood specimen (specimen) 11/18/2018 8:16 AM EDT 11/18/2018 8:16 AM EDT Giovanni Phillip MD POINT OF CARE TEST O RDERABILL Performing Organization Address [facility]/ZIP Co de Phone Number [facility] [place] [address] * POCT Glucose (11/18/2018 6:06 AM EDT) Glucose, POC 79 65 - 199 mg/dL [facility] Comment: Supplemental ranges: <140 mg/dL before meals <180 mg/dL all other times of the day Blood specimen (specimen) 11/18/2018 6:06 AM EDT 11/18/2018 6:06 AM EDT Giovanni Phillip MD POINT OF CARE TEST O RDERABILL Performing Organization Address City/[facility]/ZIP Co de Phone Number [facility] [place] [address] * POCT Glucose (11/18/2018 4:01 AM EDT) Glucose, POC 74 65 - 199 mg/dL [facility] Comment: Supplemental ranges: <140 mg/dL before meals <180 mg/dL all other times of the day Blood specimen (specimen) 11/18/2018 4:01 AM EDT 11/18/2018 4:01 AM EDT Giovanni Phillip MD POINT OF CARE TEST O RDERABLES [facility] [place] [address] * Differential, Automated (11/18/2018 2:10 AM EDT) Neutrophil % 56.0 % [facility] Neutrophil Absolute 4.86 1.70 - 6.10 x10(3)/[facility] Lymph % 31.3 % [facility] Lymphocytes Abs 2.7 0.9 - 3.2 x10(3)/[facility] Monocyte % 9.2 % [facility] Monocyte Abs 0.8 0.3 - 0.9 x10(3)/[facility] Eos % 2.5 % [facility] Eosinophils Abs 0.2 0.0 - 0.4 x10(3)/[facility] Basophil % 0.7 % [facility] Baso Absolute 0.1 0.0 - 0.1 x10(3)/[facility] Immature Gran % 0.30 % [facility] Comment: Immature granulocytes(IG's)percentage and absolute count will include metamyelocytes, myelocytes, and promyelocytes. Blood smears from CBCs yielding IG's will be scanned manually for concordance. If this scan disagrees with the automated IG or if promyelocytes are noted, a manual differential will be performed. Immature Gran Absolute 0.03 0.00 - 0.04 x10(3)/[facility] Blood specimen (specimen) 11/18/2018 2:10 AM EDT 11/18/2018 2:20 AM EDT Narrative Resulting Agency Comment Spec In Lab Del Ortega MD HEMATOLOGY ORDERABLE S [facility] [place] [address] * (ABNORMAL) Hemogram (11/18/2018 2:10 AM EDT) White Blood Cell 8.7 4.0 - 9.5 x10(3)/mc L [facility] Red Blood Cell 5.40 4.58 - 5.54 x10(6)/mc L [facility] Hemoglobin 17.3(H) 13.7 - 16.5 gm/dL [facility] Hematocrit 52.6(H) 40.5 - 48.5 % [facility] Mean Cell Volume 97.4(H) 82.9 - 93.1 fL [facility] Mean Cell Hemoglobin 32.0 27.5 - 32.1 pg [facility] Mean Cell Hemoglobin Concentration 32.9 32.0 - 35.7 gm/dL [facility] Platelet 180 145 - 357 x10(3)/mc L [facility] RDW Standard Deviation 47.6(H) 36.0 - 45.0 [facility] RDW coefficient of variation 13.1 11.4 - 13.8 % [facility] Mean Platelet Volume 11.1 7.6 - 12.9 [facility] NRBC% auto 0.0 % [facility] NRBC Absolute 0.000 0.000 - 0.000 x10(3)/mc L [facility] Blood specimen (specimen) 11/18/2018 2:10 AM EDT 11/18/2018 2:20 AM EDT Narrative Resulting Agency Comment Spec In Lab Del Ortega MD HEMATOLOGY ORDERABLE S [facility] [place] [address] * (ABNORMAL) Hepatic Function Panel (11/18/2018 2:10 AM EDT) [facility] Protein, Total 5.8(L) 6.1 - 8.0 gm/dL [facility] Albumin 3.3 3.2 - 5.2 gm/dL [facility] Aspartate Aminotransferase 28 0 - 39 unit/L [facility] Alanine Aminotransferase 47 0 - 55 unit/L [facility] Alkaline Phosphatase 35(L) 40 - 120 unit/L [facility] Bilirubin, Total 0.8 0.2 - 1.3 mg/dL [facility] Bilirubin, Direct 0.3 0.0 - 0.3 mg/dL [facility] Blood specimen (specimen) 11/18/2018 2:10 AM EDT 11/18/2018 2:20 AM EDT Narrative Resulting Agency Comment Spec In Lab Giovanni Phillip MD CHEMISTRY ORDERABLES [facility] [place] [address] * Magnesium (11/18/2018 2:10 AM EDT) [facility] Magnesium 0.80 0.69 - 1.07 mmol/L [facility] Blood specimen (specimen) 11/18/2018 2:10 AM EDT 11/18/2018 2:20 AM EDT Narrative Resulting Agency Comment Spec In Lab Maryjo Abreu III, MD CHEMISTRY ORDERABLES [facility] [place] [address] * (ABNORMAL) Basic Metabolic Panel (non-fasting) (11/18/2018 2:10 AM EDT) [facility] Glucose 83 65 - 199 mg/dL [facility] Comment:Diabetes: >=200 mg/d L plus symptoms Blood Urea Nitrogen 10 10 - 20 mg/dL [facility] Creatinine 0.58(L) 0.80 - 1.50 mg/dL [facility] Sodium 145 135 - 145 mmol/L [facility] Potassium 4.3 3.5 - 5.0 mmol/L [facility] Comment: Please note: ??Patients with WBC >100,000 may have falsely elevated Potassium levels. ??For accurate Potassium quantification in these patients send serum separator tube (gold top) for subsequent determinations. ??Contact the Clinical Chemistry Laboratory if there are any questions. Chloride 109(H) 98 - 107 mmol/L [facility] Carbon Dioxide 28 22 - 31 mmol/L [facility] Anion Gap 8 5 - 15 mmol/L [facility] Calcium 8.5 8.5 - 10.5 mg/dL [facility] Est Glomerular Filtration Rate 123 >=60 mL/min/1. 73 m?? [facility] Comment: The eGFR was calculated using the CKD-EPI equation. As with all creatinine based estimates of kidney function, eGFR values calculated with the CKD-EPI equation are not accurate in patients with acute kidney failure, extremes of body mass or the acutely ill. http://[facility] eGFR 143 >=60 mL/min/1. 73 m?? [facility] Comment: The eGFR was calculated using the CKD-EPI equation. As with all creatinine based estimates of kidney function, eGFR values calculated with the CKD-EPI equation are not accurate in patients with acute kidney failure, extremes of body mass or the acutely ill. http://[facility] Blood specimen (specimen) 11/18/2018 2:10 AM EDT 11/18/2018 2:20 AM EDT Narrative Resulting Agency Comment Spec In Lab Maryjo Abreu III, MD CHEMISTRY ORDERABLES [facility] [place] [address] * POCT Glucose (11/18/2018 2:09 AM EDT) Glucose, POC 74 65 - 199 mg/dL [facility] Comment: Supplemental ranges: <140 mg/dL before meals <180 mg/dL all other times of the day Blood specimen (specimen) 11/18/2018 2:09 AM EDT 11/18/2018 2:09 AM EDT Giovanni Phillip MD POINT OF CARE TEST O RDERABLES Performing Organization Address [facility] [[email or web address]] Co de Phone Number [facility] [place] [phone] * EKG 12 Lead (11/17/2018 8:32 PM EDT) Ventricular rate 51 BPM MUSE SYSTEM Atrial Rate 51 BPM MUSE SYSTEM P-R Interval 144 ms MUSE SYSTEM QRS Duration 104 ms MUSE SYSTEM Q-T Interval 416 ms MUSE SYSTEM QTC Calculated (Bezet) 383 ms MUSE SYSTEM Calculated P [place] 76 degrees MUSE SYSTEM Calculated R [place] 80 degrees MUSE SYSTEM Calculated T [place] 61 degrees MUSE SYSTEM INTERPRETATION Sinus bradycardia Otherwise normal ECG When compared with ECG of 17-NOV-2018 18:12, No significant change was found Confirmed by MD Luis, Fredy Mendieta ([id number]) on 11/18/2018 12:22:16 PM MUSE SYSTEM 11/17/2018 8:32 PM EDT 11/18/2018 12:22 PM EDT Giovanni hPillip MD ECG ORDERABLES Performing Organization Address [facility] de Phone Number MUSE SYSTEM * XR Chest PA or AP 1 view (11/17/2018 6:24 PM EDT) Anatomical Region Laterality Modality Chest N/A Digital Radiogra phy Impressions 11/17/2018 6:42 PM EDT 1. ??Endotracheal tube tip projects 4 cm from the josh. 2. ??Bibasilar atelectasis. 3. ??Trace right pleural effusion. 4. ??Interval decrease in pulmonary vascular congestion. Preliminary report signed by: Giovanni Downs at 11/17/2018 6:30 PM I have personally reviewed the image(s) and the residents interpretation and agree with the findings, Rosa Marroquin at 11/17/2018 6:42 PM Thank you for letting us participate in the care of this patient. For questions regarding this report, please contact the number below. ? Narrative 11/17/2018 6:42 PM EDT EXAMINATION: XR CHEST PA OR AP 1 VIEW CLINICAL HISTORY: ETT placement TECHNIQUE: 1 view of the chest COMPARISON: Chest radiograph dated 11/01/2018. FINDINGS: Endotracheal tube tip projects in the mid thoracic trachea 4.5 cm from the josh. Enteric tube follows the course the esophagus with tip projecting outside the study. Bibasilar atelectasis. Trace bilateral pleural effusions. Interval decrease in pulmonary vascular congestion. The lung apices are not in the field of view. Cannot rule out subtle apical pneumothorax. No large pneumothorax is observed. The cardiomediastinal silhouette is unchanged. No acute osseous abnormality. Procedure Note Rosa Marroquin MD - 11/17/2018 EXAMINATION: XR CHEST PA OR AP 1 VIEW CLINICAL HISTORY: ETT placement TECHNIQUE: 1 view of the chest COMPARISON: Chest radiograph dated 11/01/2018. FINDINGS: Endotracheal tube tip projects in the mid thoracic trachea 4.5 cm fromthe josh. Enteric tube follows the course the esophagus with tipprojecting outside the study. Bibasilar atelectasis. Trace bilateral pleural effusions. Intervaldecrease in pulmonary vascular congestion. The lung apices are not in the field ofview. Cannot rule out subtle apical pneumothorax. No large pneumothorax isobserved. The cardiomediastinal silhouette is unchanged. No acute osseousabnormality. IMPRESSION 1. Endotracheal tube tip projects 4 cm from the josh. 2. Bibasilar atelectasis. 3. Trace right pleural effusion. 4. Interval decrease in pulmonary vascular congestion. Preliminary report signed by: Giovanni Downs at 11/17/2018 6:30 PM I have personally reviewed the image(s) and the residents interpretationand agree with the findings, Rosa Marroquin at 11/17/2018 6:42 PM Thank you for letting us participate in the care of this patient. Forquestions regarding this report, please contact the number below. Giovanni Phillip MD IMG DX ORDERABLES * EKG 12 Lead (11/17/2018 6:12 PM EDT) Ventricular rate 50 BPM MUSE SYSTEM Atrial Rate 50 BPM MUSE SYSTEM P-R Interval 136 ms MUSE SYSTEM QRS Duration 106 ms MUSE SYSTEM Q-T Interval 428 ms MUSE SYSTEM QTC Calculated (Bezet) 390 ms MUSE SYSTEM Calculated P [place] 76 degrees MUSE SYSTEM Calculated R [place] 80 degrees MUSE SYSTEM Calculated T [place] 59 degrees MUSE SYSTEM INTERPRETATION Sinus bradycardia Otherwise normal ECG No previous ECGs available Confirmed by MD Luis, Fredy Mendieta ([id number]) on 11/18/2018 12:22:04 PM MUSE SYSTEM 11/17/2018 6:12 PM EDT 11/18/2018 12:22 PM EDT Giovanni Phillip MD ECG ORDERABLES MUSE SYSTEM * Differential, Automated (11/17/2018 5:55 PM EDT) Neutrophil % 45.1 % [facility] Neutrophil Absolute 2.92 1.70 - 6.10 x10(3)/mcL [facility] Lymph % 40.8 % [facility] Lymphocytes Abs 2.6 0.9 - 3.2 x10(3)/[facility] Monocyte % 10.9 % [facility] Monocyte Abs 0.7 0.3 - 0.9 x10(3)/[facility] Eos % 1.8 % [facility] Eosinophils Abs 0.1 0.0 - 0.4 x10(3)/[facility] Basophil % 0.9 % [facility] Baso Absolute 0.1 0.0 - 0.1 x10(3)/[facility] Immature Gran % 0.50 % [facility] Comment: Immature granulocytes(IG's)percentage and absolute count will include metamyelocytes, myelocytes, and promyelocytes. Blood smears from CBCs yielding IG's will be scanned manually for concordance. If this scan disagrees with the automated IG or if promyelocytes are noted, a manual differential will be performed. Immature Gran Absolute 0.03 0.00 - 0.04 x10(3)/[facility] Blood specimen (specimen) 11/17/2018 5:55 PM EDT 11/17/2018 6:11 PM EDT Narrative Resulting Agency Comment Spec In Lab Del Ortega MD HEMATOLOGY ORDERABLE S [facility] [place] [address] * (ABNORMAL) Hemogram (11/17/2018 5:55 PM EDT) White Blood Cell 6.5 4.0 - 9.5 x10(3)/ L [facility] Red Blood Cell 5.22 4.58 - 5.54 x10(6)/[facility] Hemoglobin 16.9(H) 13.7 - 16.5 gm/dL [facility] Hematocrit 52.1(H) 40.5 - 48.5 % [facility] Mean Cell Volume 99.8(H) 82.9 - 93.1 fL [facility] Mean Cell Hemoglobin 32.4(H) 27.5 - 32.1 pg [facility] Mean Cell Hemoglobin Concentration 32.4 32.0 - 35.7 gm/dL [facility] Platelet 172 145 - 357 x10(3)/mc L [facility] RDW Standard Deviation 48.2(H) 36.0 - 45.0 [facility] RDW coefficient of variation 13.1 11.4 - 13.8 % [facility] Mean Platelet Volume 10.9 7.6 - 12.9 [facility] NRBC% auto 0.0 % [facility] NRBC Absolute 0.000 0.000 - 0.000 x10(3)/mc L [facility] Blood specimen (specimen) 11/17/2018 5:55 PM EDT 11/17/2018 6:11 PM EDT Narrative Resulting Agency Comment Spec In Lab Del Ortega MD HEMATOLOGY ORDERABLE S [facility] [place] [address] * (ABNORMAL) Hepatic Function Panel (11/17/2018 5:55 PM EDT) Protein, Total 5.9(L) 6.1 - 8.0 gm/dL [facility] Albumin 3.1(L) 3.2 - 5.2 gm/dL [facility] Aspartate Aminotransferase 23 0 - 39 unit/L [facility] Alanine Aminotransferase 43 0 - 55 unit/L [facility] Alkaline Phosphatase 33(L) 40 - 120 unit/L [facility] Bilirubin, Total 0.5 0.2 - 1.3 mg/dL [facility] Bilirubin, Direct 0.2 0.0 - 0.3 mg/dL [facility] Blood specimen (specimen) 11/17/2018 5:55 PM EDT 11/17/2018 6:11 PM EDT Narrative Resulting Agency Comment Spec In Lab Giovanni Phillip MD CHEMISTRY ORDERABLES Performing Organization Address City/[facility]/ZIP Co de Phone Number [facility] [place] [address] * Magnesium (11/17/2018 5:55 PM EDT) Magnesium 0.83 0.69 - 1.07 mmol/L [facility] Blood specimen (specimen) 11/17/2018 5:55 PM EDT 11/17/2018 6:11 PM EDT Narrative Resulting Agency Comment Spec In Lab Maryjo Abreu III, MD CHEMISTRY ORDERABLES Performing Organization Address [facility] [[email or web address]] Co de Phone Number [facility] [place] [address] * (ABNORMAL) Basic Metabolic Panel (non-fasting) (11/17/2018 5:55 PM EDT) Glucose 83 65 - 199 mg/dL [facility] Comment:Diabetes: >=200 mg/d L plus symptoms Blood Urea Nitrogen 10 10 - 20 mg/dL [facility] Creatinine 0.64(L) 0.80 - 1.50 mg/dL [facility] Sodium 145 135 - 145 mmol/L [facility] Potassium 4.4 3.5 - 5.0 mmol/L [facility] Comment: Please note: ??Patients with WBC >100,000 may have falsely elevated Potassium levels. ??For accurate Potassium quantification in these patients send serum separator tube (gold top) for subsequent determinations. ??Contact the Clinical Chemistry Laboratory if there are any questions. Chloride 109(H) 98 - 107 mmol/L [facility] Carbon Dioxide 29 22 - 31 mmol/L [facility] Anion Gap 7 5 - 15 mmol/L [facility] Calcium 8.3(L) 8.5 - 10.5 mg/dL [facility] Est Glomerular Filtration Rate 118 >=60 mL/min/1. 73 m?? [facility] Comment: The eGFR was calculated using the CKD-EPI equation. As with all creatinine based estimates of kidney function, eGFR values calculated with the CKD-EPI equation are not accurate in patients with acute kidney failure, extremes of body mass or the acutely ill. http://[facility]ULSAnkf eGFR 137 >=60 mL/min/1. 73 m?? [facility] Comment: The eGFR was calculated using the CKD-EPI equation. As with all creatinine based estimates of kidney function, eGFR values calculated with the CKD-EPI equation are not accurate in patients with acute kidney failure, extremes of body mass or the acutely ill. http://[facility]kf Blood specimen (specimen) 11/17/2018 5:55 PM EDT 11/17/2018 6:11 PM EDT Narrative Resulting Agency Comment Spec In Lab Maryjo Abreu III, MD CHEMISTRY ORDERABLES Performing Organization Address [facility] [[email or web address]] Co de Phone Number [facility] [place] [address] * POCT Glucose (11/17/2018 5:46 PM EDT) Glucose, POC 76 65 - 199 mg/dL [facility] Comment: Supplemental ranges: <140 mg/dL before meals <180 mg/dL all other times of the day Blood specimen (specimen) 11/17/2018 5:46 PM EDT 11/17/2018 5:46 PM EDT Giovanni Phillip MD POINT OF CARE TEST O RDERABLES Performing Organization Address [facility] [[email or web address]] Co de Phone Number [facility] [place] [address] documented in this encounter Visit Diagnoses Diagnosis Alcohol withdrawal- Primary Alcohol withdrawal syndrome, with delirium Encounter for monitoring cardiotoxic drug therapy Encounter for therapeutic drug monitoring Opiate withdrawal Drug withdrawal documented in this encounter Admitting Diagnoses Diagnosis Alcohol withdrawal documented in this encounter Administered Medications Inactive Administered Medications - up to 3 most recent administrations Medication Order MAR Action Action Date Dose Rate Site acetaminophen (TYLENOL) tablet 500 mg 500 mg, Oral, EVERY 6 HOURS PRN, Starting on Mon11/23/18 at 1633, Until Mon11/26/18 at 1630, Pain, Maximum dose of acetaminophen is 4000 mg from all sources in 24 hours., Routine Given 11/26/2018 8:30 AM EDT 500 mg Given 11/25/2018 3:10 PM EDT 500 mg Given 11/25/2018 9:11 AM EDT 500 mg acetaminophen (TYLENOL) tablet 650 mg 650 mg, Oral, ONCE, 1 dose, On Mon11/23/18 at 0215, Maximum dose of acetaminophen is 4000 mg from all sources in 24 hours., Routine Given 11/23/2018 2:09 AM EDT 650 mg acetaminophen (TYLENOL) tablet 650 mg 650 mg, Oral, ONCE PRN, 1 dose, Starting on Mon11/23/18 at 2005, Until Mon11/23/18 at 2018, Pain, Maximum dose of acetaminophen is 4000 mg from all sources in 24 hours., Routine Given 11/23/2018 8:18 PM EDT 650 mg albuterol (PROVENTIL) 2.5 mg /3 mL (0.083 %) nebulizer solution 1 dose, Starting on Mon11/19/18 at 1108, Until Mon11/19/18 at 1108, Susu Murillo: cabinet override Given 11/19/2018 11:08 AM EDT 2.5 mg albuterol 90 mcg/actuation inhaler 6 puff 6 puff, Inhalation, EVERY 6 HOURS, First dose on Mon11/18/18 at 1100, Until Discontinued, Routine, Is there a contraindication to the patient receiving this medication as a nebulizer? Yes Given 11/19/2018 7:51 AM EDT 6 puffs Given 11/19/2018 3:45 AM EDT 6 puffs Given 11/18/2018 8:15 PM EDT 6 puffs chlorhexidine (PERIDEX) 0.12 % oral solution 15 mL 15 mL, Oral, 2 TIMES DAILY, First dose on 11/17/18 at 2100, Until Discontinued, Swab oral cavity. Ventilator-associated pneumonia prophylaxis, Routine Given 11/19/2018 9:03 AM EDT 15 mLs Given 11/18/2018 9:00 PM EDT 15 mLs Given 11/18/2018 8:32 AM EDT 15 mLs dexmedetomidine (PRECEDEX) 4 mcg/mL (standard Adult & Pedi greater than 20kg) infusion (premix) 0-1.7 mcg/kg/hr ? 73.2 kg (0-31.11 mL/hr, rounded to 0-31.1 mL/hr), Intravenous, CONTINUOUS, Starting on Mon11/19/18 at 1445, Until Mon11/20/18 at 1913, Titrate to sedation level of RASS Goal (-)1 to 0 . Start at 0.4 mcg/kg/hr, adjust by 0.4 mcg/kg/hr every 15 minutes. Once stable, reassess patient every 30 minutes. Rate not to exceed 1.7 mcg/kg/hr. Change rate only after assessing and documenting RASS. Reassess sedation scores within 30 minutes after every rate change. If under sedated, increase rate by 0.4 mcg/kg/hr. If over sedated, hold sedative until target RASS (-)1 to 0 achieved and then restart at 50% of previous rate. Call housemaid if goal not achieved at maximum rate. If SAT is ordered and if patient meets criteria for Spontaneous Awakening Trial, titrate per protocol., Routine, Please indicate the name & specialty of the Attending Provider who authorized the use of this medication: Giovanni Phillip MD - Critical Care Rate/Dose Verify 11/20/2018 6:00 PM EDT 0.4 mcg/kg/hr 7.3 mL/hr Rate/Dose Verify 11/20/2018 4:00 PM EDT 0.4 mcg/kg/hr 7.3 mL/hr Rate/Dose Verify 11/20/2018 2:00 PM EDT 0.4 mcg/kg/hr 7.3 mL/hr dextrose 50% intravenous solution 25 mL 25 mL, Intravenous, ONCE, 1 dose, On Mon11/18/18 at 0430, Warning Vesicant/Irritant Medication , Routine Given 11/18/2018 4:25 AM EDT 25 mLs DULoxetine (CYMBALTA) capsule 60 mg 60 mg, Per NG tube, DAILY, First dose (after last modification) on Mon11/20/18 at 1000, Until Discontinued, Routine Given 11/21/2018 9:17 AM EDT 60 mg Given 11/20/2018 10:55 AM EDT 60 mg DULoxetine (CYMBALTA) capsule 60 mg 60 mg, Oral, DAILY, First dose (after last modification) on [place] 11/22/18 at 0900, Until Discontinued, Routine Given 11/26/2018 8:25 AM EDT 60 mg Given 11/25/2018 8:36 AM EDT 60 mg Given 11/24/2018 8:26 AM EDT 60 mg fentaNYL 50 mcg/mL syringe 0-400 mcg/hr (0-8 mL/hr), Intravenous, CONTINUOUS, Starting on [place] 11/18/18 at 1045, Until Mon11/20/18 at 0728, Pain Scale Goal Less than or equal to 3 or to patient verbalized goal. Initial infusion rate: 100 mcg/hour; Adjust hourly rate every 15 minutes to achieve goal. To titrate up, increase hourly rate by 50 mcg/hr AND bolus 50% of new hourly rate. To titrate down, decrease hourly rate by 50%. Rate not to exceed 400 mcg/hr. Pain assessment every 15 minutes initially and reassess pain 15 minutes after each bolus given. Pain assessment MUST be documented prior to rate change. Rate/Dose Change 11/19/2018 10:22 AM EDT 50 mcg/hr 1 mL/hr Rate/Dose Change 11/19/2018 9:45 AM EDT 100 mcg/hr 2 mL/hr Rate/Dose Change 11/19/2018 9:24 AM EDT 200 mcg/hr 4 mL/hr fentaNYL bolus from syringe 50 mcg 50 mcg, Intravenous, ONCE, 1 dose, On [place] 11/18/18 at 1045, Initial bolus dose: IV once now followed by continuous infusion., Routine Bolus from Bag 11/18/2018 10:41 AM EDT 50 mcg fentaNYL bolus from syringe 50-200 mcg 50-200 mcg, Intravenous, EVERY 15 MIN PRN, Starting on Mon11/18/18 at 1016, Until Mon11/20/18 at 0728, Pain, IRefer to infusion order for Bolus instructions. Reassess pain 15 minutes after bolus given., Routine Bolus from Bag 11/18/2018 5:24 PM EDT 125 mcg Bolus from Bag 11/18/2018 1:53 PM EDT 100 mcg Bolus from Bag 11/18/2018 11:55 AM EDT 75 mcg glycopyrrolate (ROBINUL) injection 0.1 mg 0.1 mg, Intravenous, ONCE, 1 dose, On 11/18/18 at 1445, Routine Given 11/18/2018 3:04 PM EDT 0.1 mg glycopyrrolate (ROBINUL) injection 0.1 mg 0.1 mg, Intravenous, 2 TIMES DAILY, First dose on 11/18/18 at 2100, Until Discontinued, Routine Given 11/24/2018 8:26 AM EDT 0.1 mg Given 11/23/2018 8:13 PM EDT 0.1 mg Given 11/23/2018 9:41 AM EDT 0.1 mg heparin (Porcine) subcutaneous injection 5,000 Units 5,000 Units, Subcutaneous, EVERY 8 HOURS SCHEDULED, First dose on 11/17/18 at 2200, Until Discontinued, Routine Given 11/24/2018 1:27 PM EDT 5,000 Unit s Given 11/24/2018 6:42 AM EDT 5,000 Units Given 11/23/2018 11:49 PM EDT 5,000 Units HYDROmorphone (DILAUDID) injection 1 mg 1 mg, Intravenous, EVERY 2 HOURS PRN, Starting on 11/17/18 at 1909, Until Mon11/20/18 at 0940, Pain, agitation/sedation, Routine Given 11/20/2018 8:30 AM EDT 1 mg Given 11/20/2018 6:26 AM EDT 1 mg Given 11/20/2018 1:30 AM EDT 1 mg ipratropium (ATROVENT HFA) inhaler 6 puff 6 puff, Inhalation, EVERY 6 HOURS, First dose on [place] 11/18/18 at 1100, Until Discontinued, Routine, Is there a contraindication to the patient receiving this medication as a nebulizer? Yes Given 11/19/2018 7:52 AM EDT 6 puffs Given 11/19/2018 3:45 AM EDT 6 puffs Given 11/18/2018 8:15 PM EDT 6 puffs ipratropium-albuterol (DUONEB) 0.5 mg-3 mg(2.5 mg base)/3 mL nebulizer solution 3 mL 3 mL, Nebulization, EVERY 4 HOURS PRN, Starting on 11/19/18 at 1107, Until Mon11/25/18 at 0832, Wheezing, Routine Given 11/23/2018 8:12 PM EDT 3 mLs Given 11/20/2018 12:09 AM EDT 3 mLs Given 11/19/2018 3:25 PM EDT 3 mLs ipratropium-albuterol (DUONEB) 0.5 mg-3 mg(2.5 mg base)/3 mL nebulizer solution 3 mL 3 mL, Nebulization, EVERY 6 HOURS, First dose (after last modification) on Mon11/25/18 at 0900, Until Discontinued, Routine Given 11/25/2018 8:41 AM EDT 3 mLs ketorolac (TORADOL) injection 15 mg 15 mg, Intravenous, ONCE, 1 dose, On 11/24/18 at 0645, STAT Given 11/24/2018 6:42 AM EDT 15 mg lidocaine (LIDODERM) 5 % patch 1 patch 1 patch, Transdermal, DAILY, First dose on [place] 11/22/18 at 1245, Until Discontinued, Apply patch(es) for 12 hours, and then remove for 12 hours, Routine Patch Applied 11/26/2018 8:27 AM EDT 1 patch 07- Back Lower (Left) Patch Applied 11/25/2018 6:45 AM EDT 1 patch 08- Back Lower (Right) Patch Applied 11/24/2018 8:29 AM EDT 1 patch 07- Back Lower (Left) lidocaine (LIDODERM) 5 %(700 mg/patch) Patch Removal Transdermal, EVERY 24 HOURS, First dose on Mon11/23/18 at 0000, Until Discontinued, Remove lidocaine 5 %(700 mg/patch) patch magnesium sulfate 2 g in sterile water 50 mL 2 g, Intravenous, ONCE, 1 dose, On Mon11/19/18 at 0745, Administer over 120 Minutes New Bag 11/19/2018 9:03 AM EDT 2 g 25 mL/hr melatonin tablet 3 mg 3 mg, Oral, ONCE, 1 dose, On [place] 11/22/18 at 0215, Routine Given 11/22/2018 2:15 AM EDT 3 mg methadone (Dolophine) (10 mg/mL) oral liquid 110 mg 110 mg, Oral, ONCE, 1 dose, On Mon11/21/18 at 1100, Liquid methadone should be used to avoid diversion, and a mouth check should be performed after each dose., Routine, Name of patient's Methadone clinic? [facility] phone: [phone], Date last Methadone dose was given at the Outpatient Clinic? 11/14/2018, Dose of Methadone provided at the clinic? 120 Given 11/21/2018 11:43 AM EDT 110 mg methadone (Dolophine) (10 mg/mL) oral liquid 120 mg 120 mg, Oral, DAILY, First dose (after last modification) on Mon11/22/18 at 0900, Until Discontinued, Liquid methadone should be used to avoid diversion, and a mouth check should be performed after each dose., Routine, Name of patient's Methadone clinic? [facility] phone: [phone], Date last Methadone dose was given at the Outpatient Clinic? 11/14/2018, Dose of Methadone provided at the clinic? 120 Given 11/26/2018 8:25 AM EDT 120 mg Given 11/25/2018 9:10 AM EDT 120 mg Given 11/24/2018 9:27 AM EDT 120 mg methadone (Methadose) (2 mg/mL) oral liquid 10 mg 10 mg, Oral, EVERY 12 HOURS SCHEDULED (2 times per day), 2 doses, First dose on Mon11/21/18 at 0900, Last dose on Mon11/21/18 at 2100, Day 2. Liquid methadone should be used to avoid diversion , and a mouth check should be performed after each dose., Routine Given 11/21/2018 9:16 AM EDT 10 mg methadone (Methadose) (2 mg/mL) oral liquid 15 mg 15 mg, Oral, EVERY 12 HOURS SCHEDULED (2 times per day), 2 doses, First dose on Mon11/20/18 at 1000, Last dose on Mon11/20/18 at 2100, Day 1. Liquid methadone should be used to avoid diversion , and a mouth check should be performed after each dose., Routine Given 11/20/2018 9:52 PM EDT 15 mg Given 11/20/2018 12:30 PM EDT 15 mg nicotine (NICODERM CQ) 14 mg/24 hr patch 14 mg 14 mg (1 patch), Transdermal, Administer over 24 Hours, DAILY, First dose on Mon11/20/18 at 1000, Until Discontinued, Routine Given 11/22/2018 8:34 AM EDT 14 mg 03- Shoulder (Left) Given 11/21/2018 9:29 AM EDT 14 mg 04 - Shoulder (Right) Given 11/20/2018 10:55 AM EDT 14 mg 0 9- Arm Upper (Left) nicotine (NICODERM CQ) 21 mg/24 hr patch 21 mg 21 mg (1 patch), Transdermal, DAILY, First dose on Mon11/22/18 at 1245, Until Discontinued, Routine Patch Applied 11/26/2018 8:26 AM EDT 21 mg 03- Shoulder (Left) Patch Applied 11/25/2018 8:35 AM EDT 21 mg 10- Arm Upper (Right) Patch Applied 11/24/2018 8:31 AM EDT 21 mg 09- Arm Upper (Left) nicotine (NICODERM CQ) 21 mg/24 hr patch Patch Removal Transdermal, DAILY, First dose on Mon11/23/18 at 1200, Until Discontinued, Remove nicotine 21 mg/24 hr patch nicotine (NICODERM CQ) 21 mg/24 hr patch Patch Verification Transdermal, 2 TIMES DAILY, First dose on Mon11/23/18 at 0000, Until Discontinued, Verify nicotine 21 mg/24 hr patch ondansetron (ZOFRAN) injection 4 mg 4 mg, Intravenous, ONCE, 1 dose, On Mon11/26/18 at 0715 Given 11/26/2018 7:43 AM EDT 4 mg ondansetron (ZOFRAN) tablet 8 mg 8 mg, Oral, ONCE, 1 dose, On Mon11/25/18 at 0730, Routine Given 11/25/2018 7:34 AM EDT 8 mg PHENobarbital (Luminal) (4 mg/mL) oral liquid 30 mg 30 mg, Per NG tube, 2 TIMES DAILY, First dose (after last modification) on Mon11/21/18 at 2100, Until Discontinued, STAT Given 11/21/2018 8:34 PM EDT 30 mg PHENobarbital (Luminal) (4 mg/mL) oral liquid 30 mg 30 mg, Oral, 2 TIMES DAILY, First dose (after last modification) on Mon11/22/18 at 0900, Until Discontinued, Routine Given 11/23/2018 9:39 AM EDT 30 mg Given 11/22/2018 8:11 PM EDT 30 mg Given 11/22/2018 8:52 AM EDT 30 mg PHENobarbital (Luminal) (4 mg/mL) oral liquid 30 mg 30 mg, Oral, DAILY, First dose (after last modification) on Mon11/24/18 at 0900, Until Discontinued, Routine Given 11/24/2018 8:28 AM EDT 30 mg PHENobarbital (Luminal) (4 mg/mL) oral liquid 45 mg 45 mg, Per NG tube, 2 TIMES DAILY, First dose (after last modification) on Mon11/20/18 at 1000, Until Discontinued, STAT Given 11/21/2018 9:16 AM EDT 45 mg Given 11/20/2018 9:50 PM EDT 45 mg Given 11/20/2018 12:36 PM EDT 45 mg PHENobarbital (LUMINAL) injection 130 mg 130 mg, Intravenous, at 12 mL/hr, Administer over 5 Minutes, ONCE, 1 dose, On Mon11/19/18 at 1615, STAT Given 11/19/2018 4:13 PM EDT 130 mg 12 mL/hr PHENobarbital (LUMINAL) injection 130 mg 130 mg, Intravenous, at 12 mL/hr, Administer over 5 Minutes, ONCE, 1 dose, On Mon11/19/18 at 2200, Routine Given 11/19/2018 9:45 PM EDT 130 mg 12 mL/hr PHENobarbital (LUMINAL) injection 130 mg 130 mg, Intravenous, at 12 mL/hr, Administer over 5 Minutes, ONCE, 1 dose, On Mon11/19/18 at 2300, Routine Given 11/20/2018 12:35 AM EDT 13 0 mg 12 mL/hr PHENobarbital (LUMINAL) injection 260 mg 260 mg, Intravenous, at 24 mL/hr, Administer over 5 Minutes, ONCE, 1 dose, On Mon11/19/18 at 1130, STAT Given 11/19/2018 11:10 AM EDT 260 m g 24 mL/hr potassium chloride (Kayciel) (1.33 mEq/mL) oral liquid 40 mEq 40 mEq, Per NG tube, EVERY 4 HOURS, First dose on Mon11/19/18 at 0515, 2 doses, Last dose on Mon11/19/18 at 0915 Given 11/19/2018 9:03 AM EDT 40 mEq Given 11/19/2018 5:41 AM EDT 40 mEq pregabalin (LYRICA) capsule 100 mg 100 mg, Oral, 2 TIMES DAILY, First dose on Mon11/24/18 at 2100, Until Discontinued, Routine Given 11/24/2018 8:08 PM EDT 100 mg pregabalin (LYRICA) capsule 100 mg 100 mg, Oral, ONCE, 1 dose, On 11/25/18 at 1215, Routine Given 11/25/2018 12:05 PM EDT 100 mg pregabalin (LYRICA) capsule 200 mg 200 mg, Oral, 2 TIMES DAILY, First dose (after last modification) on 11/25/18 at 0900, Until Discontinued, Routine Given 11/26/2018 8:24 AM EDT 200 mg Given 11/25/2018 8:03 PM EDT 200 mg Given 11/25/2018 8:41 AM EDT 200 mg propofol (DIPRIVAN) 10 mg/mL infusion 1 dose, Starting on 11/17/18 at 1740, Until 11/17/18 at 1751, Marty Hunt: cabinet override propofol (DIPRIVAN) infusion 0-50 mcg/kg/min, Intravenous, CONTINUOUS, Starting on 11/17/18 at 1815, Until 11/17/18 at 1929, Titrate to sedation level of RASS Goal (-)1 to 0 . Start at 20 mcg/kg/min, adjust rate by 10 mcg/kg/min every 3 minutes. Once stable, reassess patient every 30 minutes. Rate not to exceed 50 mcg/kg/minute. Change rate only after assessing and documenting RASS. Reassess sedation scores within 30 minutes after every rate change. If under sedated, increase rate by 10 mcg/kg/min. If over sedated, hold sedative until target RASS (-)1 to 0 achieved and then restart at 50% of previous rate. Call housemaid if goal not achieved at maximum rate. If SAT is ordered and if patient meets criteria for Spontaneous Awakening Trial, titrate per protocol., Routine New Bag 11/17/2018 5:45 PM EDT 30 mcg/kg/min propofol (DIPRIVAN) infusion 0-50 mcg/kg/min ? 73.2 kg (0-21.96 mL/hr, rounded to 0-22 mL/hr), Intravenous, CONTINUOUS, Starting on 11/17/18 at 1945, Until 11/19/18 at 2233, Titrate to sedation level of RASS Goal (-)1 to 0 . Start at 20 mcg/kg/min, adjust rate by 10 mcg/kg/min every 3 minutes. Once stable, reassess patient every 30 minutes. Rate not to exceed 50 mcg/kg/minute. Change rate only after assessing and documenting RASS. Reassess sedation scores within 30 minutes after every rate change. If under sedated, increase rate by 10 mcg/kg/min. If over sedated, hold sedative until target RASS (-)1 to 0 achieved and then restart at 50% of previous rate. Call housemaid if goal not achieved at maximum rate. If SAT is ordered and if patient meets criteria for Spontaneous Awakening Trial, titrate per protocol., Routine New Bag 11/19/2018 9:04 AM EDT 20 mcg/kg/min 8.8 mL/hr Rate/Dose Change 11/19/2018 7:38 AM EDT 30 mcg/kg/min 13.2 mL/hr Rate/Dose Verify 11/19/2018 6:00 AM EDT 40 mcg/kg/min 17.6 mL/hr QUEtiapine (SEROquel) tablet 200 mg 200 mg, Per NG tube, NIGHTLY, First dose (after last modification) on Mon11/20/18 at 2100, Until Discontinued, Routine Given 11/20/2018 9:44 PM EDT 200 mg QUEtiapine (SEROquel) tablet 200 mg 200 mg, Oral, NIGHTLY, First dose on [place] 11/22/18 at 2100, Until Discontinued, Routine Given 11/25/2018 10:5 2 PM EDT 200 mg Given 11/23/2018 8:13 PM EDT 200 mg Given 11/22/2018 8:12 PM EDT 200 mg QUEtiapine (SEROquel) tablet 200 mg 200 mg, Oral, ONCE, 1 dose, On 11/24/18 at 2130, Routine Given 11/24/2018 9:34 PM EDT 200 mg documented in this encounter Active and Recently Administered Medications Times are shown in EDT. Scheduled Medication Order 11/24/2018 11/25/2018 11/26/2018 DULoxetine (CYMBALTA) capsule 60 mg 60 mg, Oral, DAILY, First dose (after last modification) on [place] 11/22/18 at 0900, Until Discontinued, Routine 0826 (Given - Provider: Maya Bush RN) 0836 (Given - Provider: Maya S Bulk, RN) 0825 (Given - Provider: Christine Griffith, CHRISTINE) glycopyrrolate (ROBINUL) injection 0.1 mg (CANCELED) 0.1 mg, Intravenous, 2 TIMES DAILY, First dose on 11/18/18 at 2100, Until Discontinued, Routine 0826 (Given - Provider: Maya Bush RN) heparin (Porcine) subcutaneous injection 5,000 Units (CANCELED) 5,000 Units, Subcutaneous, EVERY 8 HOURS SCHEDULED, First dose on 11/17/18 at 2200, Until Discontinued, Routine 0642 (Given - Provider: Ana Hill, CHRISTINE)1327 (Given - Provider: Maya Bush, RN)2200 (Not Given - Provider: Ana Hill RN - Reason: Patient/family refused) 0600 (Not Given - Provider: Ana Hill RN - Reason: Patient/family refused) ipratropium-albuterol (DUONEB) 0.5 mg-3 mg(2.5 mg base)/3 mL nebulizer solution 3 mL 3 mL, Nebulization, EVERY 6 HOURS, First dose (after last modification) on 11/25/18 at 0900, Until Discontinued, Routine 0841 (Given - Provider: Maya Bush RN)1510 (Not Given - Provider: Maya Bush RN - Reason: Patient/family refused)2100 (Not Given - Provider: Abi Olvera RN - Reason: Patient/family refused) 0300 (Not Given - Provider: Abi Olvera RN - Reason: Patient/family refused)0900 (Not Given - Provider: Christine Griffith RN - Reason: Patient/family refused)1500 (Not Given - Provider: Yvette Mendez RN - Reason: Patient/family refused) ketorolac (TORADOL) injection 15 mg (COMPLETED) 15 mg, Intravenous, ONCE, 1 dose, On 11/24/18 at 0645, STAT 0642 (Given - Provider: Ana Hill RN) lidocaine (LIDODERM) 5 % patch 1 patch(Linked Group 1) 1 patch, Transdermal, DAILY, First dose on [place] 11/22/18 at 1245, Until Discontinued, Apply patch(es) for 12 hours, and then remove for 12 hours, Routine 0829 (Patch Applied - Provider: Maya Bush RN) 0645 (Patch Applied - Provider: Ana Hill, CHRISTINE)0900 (Not Given - Provider: Maya Bush RN - Reason: See comment - Comment: given earlier) 0827 (Patch Applied - Provider: Christine Griffith, CHRISTINE) lidocaine (LIDODERM) 5 %(700 mg/patch) Patch Removal(Linked Group 1) Transdermal, EVERY 24 HOURS, First dose on Mon11/23/18 at 0000, Until Discontinued, Remove lidocaine 5 %(700 mg/patch) patch 0000 (Patch Removed - Provider: Ana Hill RN) 0000 (Patch Removed - Provider: Ana Hill RN) 0000 (Patch Removed - Provider: Abi Olvera RN) methadone (Dolophine) (10 mg/mL) oral liquid 120 mg 120 mg, Oral, DAILY, First dose (after last modification) on Mon11/22/18 at 0900, Until Discontinued, Liquid methadone should be used to avoid diversion, and a mouth check should be performed after each dose., Routine, Name of patient's Methadone clinic? [facility] phone: [phone], Date last Methadone dose was given at the Outpatient Clinic? 11/14/2018, Dose of Methadone provided at the clinic? 120 0927 (Given - Provider: Maya Bush RN) 0910 (Given - Provider: Maya Bush RN) 0825 (Given - Provider: Christine Griffith, CHRISTINE) nicotine (NICODERM CQ) 21 mg/24 hr patch 21 mg(Linked Group 2) 21 mg (1 patch), Transdermal, DAILY, First dose on Mon11/22/18 at 1245, Until Discontinued, Routine 0831 (Patch Applied - Provider: Maya Bush RN) 0835 (Patch Applied - Provider: Maya Bush RN) 0826 (Patch Applied - Provider: Christine Griffith, CHRISTINE) nicotine (NICODERM CQ) 21 mg/24 hr patch Patch Removal(Linked Group 2) Transdermal, DAILY, First dose on Mon11/23/18 at 1200, Until Discontinued, Remove nicotine 21 mg/24 hr patch 0900 (Patch Removed - Provider: Maya Bush RN) 0900 (Patch Removed - Provider: Maya Bush RN) 09 (Patch Removed - Provider: Christine Griffith, CHRISTINE) nicotine (NICODERM CQ) 21 mg/24 hr patch Patch Verification(Linked Group 2) Transdermal, 2 TIMES DAILY, First dose on Mon11/23/18 at 0000, Until Discontinued, Verify nicotine 21 mg/24 hr patch 09 (Patch (dose and location) verified - Provider: Maya Bush RN)2099 (Patch (dose and location) verified - Provider: Ana Hill RN) 899 (Patch (dose and location) verified - Provider: Maya Bush RN)2099 (Patch (dose and location) verified - Provider: Abi Olvera RN) 899 (Patch (dose and location) verified - Provider: Christine Griffith, CHRISTINE) ondansetron (ZOFRAN) injection 4 mg (COMPLETED) 4 mg, Intravenous, ONCE, 1 dose, On Mon11/26/18 at 0715 0743 (Given - Provider: Abi Olvera RN) ondansetron (ZOFRAN) tablet 8 mg (COMPLETED) 8 mg, Oral, ONCE, 1 dose, On 11/25/18 at 0730, Routine 0734 (Given - Provider: Maya Bush RN) PHENobarbital (Luminal) (4 mg/mL) oral liquid 30 mg (CANCELED) 30 mg, Oral, DAILY, First dose (after last modification) on 11/24/18 at 0900, Until Discontinued, Routine 0828 (Given - Provider: Maya Bush RN) pregabalin (LYRICA) capsule 100 mg (CANCELED) 100 mg, Oral, 2 TIMES DAILY, First dose on 11/24/18 at 2100, Until Discontinued, Routine 2007 (Given - Provider: Ana Hill RN) pregabalin (LYRICA) capsule 100 mg (COMPLETED) 100 mg, Oral, ONCE, 1 dose, On 11/25/18 at 1215, Routine 1205 (Given - Provider: Maya Bush RN) pregabalin (LYRICA) capsule 200 mg 200 mg, Oral, 2 TIMES DAILY, First dose (after last modification) on 11/25/18 at 0900, Until Discontinued, Routine 0841 (Given - Provider: Maya Bush RN)2002 (Given - Provider: Abi Olvera, RN) 08 (Given - Provider: Christine Griffith, RN) QUEtiapine (SEROquel) tablet 200 mg 200 mg, Oral, NIGHTLY, First dose on [place] 11/22/18 at 2100, Until Discontinued, Routine 2007 (Not Given - Provider: Ana Hill RN - Reason: See comment - Comment: Patient spit meds out into trash, meds removed from trash by RN) 2251 (Given - Provider: Abi Olvera, RN) QUEtiapine (SEROquel) tablet 200 mg (COMPLETED) 200 mg, Oral, ONCE, 1 dose, On 11/24/18 at 2130, Routine 2134 (Given - Provider: Ana Hill RN) PRN Medication Order 11/24/2018 11/25/2018 11/26/2018 acetaminophen (TYLENOL) tablet 500 mg 500 mg, Oral, EVERY 6 HOURS PRN, Starting on Mon11/23/18 at 1633, Until Mon11/26/18 at 1630, Pain, Maximum dose of acetaminophen is 4000 mg from all sources in 24 hours., Routine 0022 (Given - Provider: Ana Hill RN)1702 (Given - Provider: Ines Guardado RN) 0313 (Given - Provider: Alta Kruse, CHRISTINE)0911 (Given - Provider: Maya Bush, CHRISTINE)1510 (Given - Provider: Maya Bush RN) 0830 (Given - Provider: Christine Griffith, CHRISTINE) Linked Groups Order Group 1: lidocaine (LIDODERM) 5 % patch 1 patchJump to med 1 patch, Transdermal, DAILY, First dose on [place] 11/22/18 at 1245, Until Discontinued, Apply patch(es) for 12 hours, and then remove for 12 hours, Routine And lidocaine (LIDODERM) 5 %(700 mg/patch) Patch RemovalJump to med Transdermal, EVERY 24 HOURS, First dose on Mon11/23/18 at 0000, Until Discontinued, Remove lidocaine 5 %(700 mg/patch) patch Group 2: nicotine (NICODERM CQ) 21 mg/24 hr patch 21 mgJump to med 21 mg (1 patch), Transdermal, DAILY, First dose on Mon11/22/18 at 1245, Until Discontinued, Routine And nicotine (NICODERM CQ) 21 mg/24 hr patch Patch VerificationJump to med Transdermal, 2 TIMES DAILY, First dose on Mon11/23/18 at 0000, Until Discontinued, Verify nicotine 21 mg/24 hr patch And nicotine (NICODERM CQ) 21 mg/24 hr patch Patch RemovalJump to med Transdermal, DAILY, First dose on Mon11/23/18 at 1200, Until Discontinued, Remove nicotine 21 mg/24 hr patch documented in this encounter Care Teams Heel Brusher Relationship Specialty Start Date End Date Travis Castaneda MD [address] [place] [address] PCP - General Internal Medicine 10/29/18 09/27/23 documented as of this encounter
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
--- OUTSIDE RECORDS SUMMARY | 2024-02-29 09:03 | XMS_ITS | Encounter Summary ---
Author Organization [facility] Address [address] [place] [address] Care Team Providers Care Bale Sewer Name Role Phone Travis Castaneda MD Primary Care Provider [phone] Encounter Details Date Type Department Care Team (Late st Contact Info) Description 05/13/2021 Lab Requisition [facility] Pathology & Laboratory Medicine - [facility] [address] [place] [address] Outr Resulting Lab, Provider Social History Tobacco [...] Procedure Name Priority Date/Time Associated Diagnosis Comments TESTOSTERONE Routine 05/13/2021 9:33 EST documented in this encounter Results * (ABNORMAL) TESTOSTERONE (05/13/2021 9:33 EST) Testosterone 212(L) 229 - 902 ng/dL 05/13/2021 22:17 EST [facility] Blood VENOUS BLOOD / Unknown 05/13/2021 9:33 EST 05/13/2021 21:23 EST Narrative [facility] - 05/13/2021 22:17 EST The results of this assay can be falsely elevated due to the consumption of Biotin. Provider Outr Resulting Lab CHEMISTRY & BLOOD GAS ORDERABLES [facility] [address] [place] [address] documented in this encounter Visit Diagnoses Not on filedocumented in this encounter Care Teams Bale Sewer Relationship Specialty Start Date End Date Travis Castaneda MD [address] [place] [address] PCP - General 04/02/18 documented as of this encounter
--- OUTSIDE RECORDS SUMMARY | 2024-02-29 09:03 | XMS_ITS | Encounter Summary ---
Author Organization [facility] Address [address] [place] [address] Care Team Providers Care Knitting Machine Operator Automatic Name Role Phone Travis Castaneda MD Primary Care Provider [phone] Encounter Details Date Type Department Care Team (Late st Contact Info) Description 08/27/2020 Lab Requisition [facility] Pathology & Laboratory Medicine - [facility] [address] [place] [address] Outr Resulting Lab, Provider Social History Tobacco [...] Associated Diagnosis Comments HCV RNA DETECT QUANT Routine 08/26/2020 16:40 EDT documented in this encounter Results * HCV RNA DETECT QUANT (08/26/2020 16:40 EDT) HCV RNA Qualitative Undetected Undetected 08/28/2020 13:50 EDT [facility] Blood VENOUS BLOOD / Unknown 08/26/2020 16:40 EDT 08/27/2020 16:46 EDT Narrative [facility] - 08/28/2020 13:50 EDT The quantification range of this assay is 15 IU/mL to 100,000,000 IU/mL. ??Testing was performed on the SHEFALI Ampliprep/SHEFALI TaqMan HCV v2.0 ([employer] Provider Outr Resulting Lab CHEMISTRY & BLOOD GAS ORDERABLES [facility] [address] [place] [address] documented in this encounter Visit Diagnoses Not on filedocumented in this encounter Care Teams Knitting Machine Operator Automatic Relationship Specialty Start Date End Date Travis Castaneda MD [address] [place], [place] [id number] PCP - General 04/02/18 documented as of this encounter
--- OUTSIDE RECORDS SUMMARY | 2024-02-29 09:03 | XMS_ITS | Encounter Summary ---
Author Organization [facility] Address [address] [place] [address] Care Team Providers Care Dancer Or Choreographer Name Role Phone Travis Castaneda MD Primary Care Provider [phone] Encounter Details Date Type Department Care Team (Late st Contact Info) Description 04/28/2021 Lab Requisition [facility] Pathology & Laboratory Medicine - [facility] [address] [place] [address] Outr Resulting Lab, Provider Social History Tobacco [...] Procedure Name Priority Date/Time Associated Diagnosis Comments ZZCOVID-19 TEST [facility] PCR Today 04/28/2021 11:30 EST COVID-19 TESTING Routine 04/28/2021 11:3 0 EST documented in this encounter Results * COVID-19 TEST [facility] PCR (04/28/2021 11:30 EST) Swab 04/28/2021 11:3 0 EST 04/28/2021 21:36 EST Provider Outr Resulting Lab MICROBIOLOGY - GENERAL ORDERABLES Performing Organization Address City/State/[facility] Co de Phone Number [facility] [address] [place] [address] * COVID-19 TESTING (04/28/2021 11:30 EST) COVID-19 rt-PCR Result Negative Negative 04/29/2021 16:33 EST [facility] Comment: This test has not been FDA cleared or approved. This test has been authorized by FDA under an EUA for use by authorized laboratories. This test has been authorized only for detection of nucleic acid from 2019-nCoV, not for any other viruses or pathogens. This test is only authorized for the duration of the declaration that circumstances exist justifying the authorization of emergency use of in vitro diagnostic tests for detection and/or diagnosis of 2019-nCoV under section 564(b)(1) of Act, 21 U.S.C ?? 360bbb-3(b) (1), unless the authorization is terminated or revoked sooner. Negative results do not preclude 2019-nCoV infection and should not be used as the sole basis for treatment or other patient management decisions. Negative results must be combined with clinical observations, patient history, and epidemiological information. Performed on the [employer]os[employer] instrument Performing Lab [place] [facility] 04/29/2021 16:33 EST [facility] Swab 04/28/2021 11:3 0 EST 04/28/2021 21:36 EST Provider Outr Resulting Lab MICROBIOLOGY - GENERAL ORDERABLES [facility] [address] [place] [address] documented in this encounter Visit Diagnoses Not on filedocumented in this encounter Care Teams Dancer Or Choreographer Relationship Specialty Start Date End Date Travis Castaneda MD [address] [place], [place] [id number] PCP - General 04/02/18 documented as of this encounter
--- OUTSIDE RECORDS SUMMARY | 2024-02-29 09:03 | XMS_ITS | Encounter Summary ---
Author Organization [facility] Address [address] [place] [address] Care Team Providers Care Machine Applicator Cementer Name Role Phone Travis Castaneda MD Primary Care Provider [phone] Encounter Details Date Type Department Care Team (Late st Contact Info) Description 02/09/2024 Lab Requisition [facility] Pathology & Laboratory Medicine - [facility] [address] [place] [address] Outr Resulting Lab, Provider Social History Tobacco [...] filedocumented in this encounter Care Teams Machine Applicator Cementer Relationship Specialty Start Date End Date Travis Castaneda MD [address] [place] [address] PCP - General 04/02/18 documented as of this encounter
--- OUTSIDE RECORDS SUMMARY | 2024-02-29 09:04 | XMS_ITS | Encounter Summary ---
Author Organization [facility] Address [address] [place] [address] Care Team Providers Care Hoist Mechanic Name Role Phone Cassie Roberts MD Primary Care Provider Travis Prescott MD Primary Care Provider Reason for Visit * Reason Onset Date Comments Appointment Related 09/05/2017 Encounter Details Date Type Department Care Team (Late st Contact Info) Description 09/05/2017 Telephone [facility] Adult Neurology - [address] [address] Tequila Preciado MD [address] [place] [id number] Appointment Related Social History Tobacco Use Types Packs/Day Years [...] Exposure Response Date Recorded In the last month, have you been in contact with someone who was confirmed or suspected to have Coronavirus / COVID-19? No / Unsure 04/07/2020 20:31 EST documented as of this encounter Functional Status Functional Status Response Date of Assess ment Are you deaf or do you have serious difficulty h earing? No 01/03/2017 Are you blind or do you have serious difficulty seeing, even when wearing glasses? No 01/03/2017 Do you have difficulty dress ing or bathing? (5 years old or older) No 01/03/2017 Because of a physical, menta l, or emotional condition, do you have difficulty doing errands alone such as visiting a doctor's office or shopping? (15 years old or older) No 01/03/2017 Cognitive Status Response Date of Assessm ent Because of a physical, menta l, or emotional condition, does this person have serious difficulty concentrating, remembering, or making decisions? No 01/28/2016 documented as of this encounter Miscellaneous Notes * Telephone Encounter - Fernando Alonso - 09/05/2017 1157 EDT Reason for Call: Appointment Related Call Detail: I left a message for Garret to call and schedule his DFU30 with Dr. Preciado regarding his December inpatient stay. Last visit: 01/03/17 inpatient Next visit: CORNELIUS Alonso 09/05/2017 11:57 documented in this encounter Plan of Treatment Not on file documented as of this encounter Visit Diagnoses Not on filedocumented in this encounter Care Teams Hoist Mechanic Relationship Specialty Start Date End Date Cassie Roberts MD PCP - General 01/28/16 04/01/18 Travis Castaneda MD [address] [place] [address] PCP - General 04/02/18 documented as of this encounter
--- OUTSIDE RECORDS SUMMARY | 2024-02-29 09:04 | XMS_ITS | Encounter Summary ---
Author Organization [facility] Address [address] [place] [address] Care Team Providers Care Mold Builder Name Role Phone Travis Castaneda MD Primary Care Provider Encounter Details Date Type Department Care Team (Late st Contact Info) Description 09/28/2018 Documentation Visit [facility] Gastroenterology - [address] [id number] Gunnar Mcmullen MD PhD [address] [facility], [address] [place] [address] Social History Tobacco Use Types Packs/Day Years Used Date Smoking Tobacco: Every Day Cigarettes Smokeless Tobacco: Never Alcohol Use Standard Drinks/Week Comments No 0 (1 standard drink = 0.6 oz pur e alcohol) quit Sex and Gender Information Value Date Recorded [...] No 01/28/2016 documented as of this encounter Progress Notes * Gustavo Monterroso - 09/28/[address] Mcmullen, the patient should not be rescheduled with him until the patient's PCP pages him to discuss case, as this is the 3rd no-show for the patient. documented in this encounter Plan of Treatment Not on file documented as of this encounter Visit Diagnoses Not on filedocumented in this encounter Care Teams Mold Builder Relationship Specialty Start Date End Date Travis Castaneda MD [address] [place] [address] PCP - General 04/02/18 documented as of this encounter
--- OUTSIDE RECORDS SUMMARY | 2024-02-29 09:04 | XMS_ITS | Encounter Summary ---
Author Organization [facility] Address [address] [place] [address] Care Team Providers Care Adult Care Provider Name Role Phone Travis Castaneda MD Primary Care Provider [phone] Reason for Visit * (Routine) - Receiving Office to Obtain Authorization Specialty Diagnoses / Procedures Referred By Contsola arguelles Referred To Contact Procedures CT OUTSIDE IMAGES NEURO Unknown, Provider, Referral ID Status Reason Start Date Expiration Date Visits Requested Visits Authorized [id number] Receiving Office to Obtain Authorization 03/31/2019 1 1 Encounter Details Date Type Department Care Team (Late st Contact Info) Description 03/31/2019 15:19 EST - 03/31/2019 23:59 EST Hospital Encounter [facility] Radiology - [place] [address] [place] [id number] Social History Tobacco Use Types Packs/Day Years [...] No 01/28/2016 documented as of this encounter Medications at Time of Discharge Medication Sig Dispensed Refills Start Date End Date albuterol (PROAIR HFA) 90 mcg/actuation inhaler Inhale 2 Puffs as directed as needed. albuterol-ipratropium (COMBIVENT) 18-103 mcg/actuation inhaler Inhale 2 Puffs as directed 4 times daily. lisinopril (PRINIVIL, ZESTRIL) 20 mg tablet Take 20 mg by mouth daily. Reported on 04/12/2016 polyethylene glycol (MIRALAX) 17 gram/dose powder Take 17 g by mouth daily. Reported on 04/12/2016 QUEtiapine (SEROQUEL XR) 400 mg XR tablet Take 300 mg by mouth at bedtime. 01/04/2017 erythromycin (ROMYCIN) 5 mg/gram (0.5 %) ophthalmic ointment Place 1 cm into the right eye 4 times daily 1 Tube 0 07/25/2014 04/08/2020 hydrOXYzine (VISTARIL) 25 mg capsule Take 25 mg by mouth 4 times daily as needed. Reported on 04/12/2016 04/08/2020 levETIRAcetam (KEPPRA) 1,000 mg tablet Take 1 Tab by mouth 2 times daily. 60 Tab 3 01/04/2017 04/08/2020 oxyCODONE 10 mg immediate release tablet Take 1 Tab by mouth every 6 hours as needed for Pain. Earliest Fill Date: 03/16/16 Daily Max: 40 mg 60 Tab 03/16/2016 04/08/2020 oxyCODONE-acetaminophen (PERCOCET) 5-325 mg per tablet Take 1 Tab by mouth every 4 hours as needed for Pain. 10 Tab 0 04/26/2013 04/08/2020 pregabalin (LYRICA) 200 mg capsule Take 200 mg by mouth 3 times daily. 01/04/2017 04/10/2020 documented as of this encounter Plan of Treatment Not on file documented as of this encounter Procedures Procedure Name Priority Date/Time Associated Diagnosis Comments CT OUTSIDE IMAGES NEURO Routine 03/31/2019 15:19 EST documented in this encounter Results * CT OUTSIDE IMAGES NEURO (03/31/2019 15:19 EST) Narrative [facility] - 03/31/2019 15:19 EST This is a non-reportable exam. Him Only No Signature Required IMG OTHER IMAGING ORDERABLES Performing Organization Address City/State/[facility] Co de Phone Number [facility] documented in this encounter Visit Diagnoses Not on filedocumented in this encounter Care Teams Adult Care Provider Relationship Specialty Start Date End Date Travis Castaneda MD [address] [place] [address] PCP - General 04/02/18 documented as of this encounter
--- OUTSIDE RECORDS SUMMARY | 2024-02-29 09:04 | XMS_ITS | Encounter Summary ---
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 this non-upright radiograph. Procedure Note Kan Goncalves MD - 04/08/2020 XR CHEST PORTABLE 1 VIEW 04/08/2020 10:10 AM CLINICAL HISTORY/COMMENTS: COPD exacerbation COMPARISON: Chest CT and 11/19/2019 FINDINGS: Single portable AP view of the chest. Lines/tubes: None Soft tissues, bones and extrathoracic findings: No significantabnormalities. Cardiac and mediastinal contours: The cardiac and mediastinal size andcontour are normal. Lungs: Bibasilar opacities likely represent atelectasis, progressed withinthe left lower lobe. There is chronic large airways thickening. Thepulmonary vascularity is normal. Pleura: There is no evidence of pneumothorax or pleural fluid, but neithercan be excluded on this non-upright radiograph. IMPRESSION 1. No acute abnormality. 2. Bibasilar opacities, progressed on the left, most in keeping withatelectasis. I have personally reviewed the images and the above interpretation andagree with the findings. J Manish Schafer Jr., MD IM DIAGNOSTIC IMAGING ORDERABLES * EXPANDED RESPIRATORY VIRAL PANEL, PCR (DOES NOT INCLUDE INFLUENZA OR RSV) (04/08/2020 8:17 EST) Paraflu Type 1 Rslt (PF1RES) Negative Negative 04/08/2020 16:42 EST [facility] Paraflu Type 2 Rslt (PF2RES) Negative Negative 04/08/2020 16:42 EST [facility] Paraflu Type 3 Rslt (PF3RES) Negative Negative 04/08/2020 16:42 EST [facility] Paraflu Type 4 Rslt Negative Negative 04/08 16:42 EST [facility] Rhinovirus RNA Rslt (RVRES) Negative Negative 04/08/2020 16:42 [facility] Metapneumovirus RNA Rslt (HMVRES) Negative Negative 04/08/2020 16:42 [facility] Adenovirus DNA Rslt (ADVRES) Negative Negative 04/08/2020 16:42 [facility] Swab ENTIRE NASOPHARYNX / Unknown Swab / Unknown 04/08/2020 8:17 EST 04/08/2020 8:22 EST Viv Kumar MD MICROBIOLOGY - [employer] NERAL ORDERABLES Performing Organization Address City/[facility]/ZIP Co de Phone Number [facility] [address] [place] [address] * INPATIENT/OUTPATIENT INFLUENZA, RSV PCR (04/08/2020 8:17 EST) FLU A RNA Result (FLARES) Negative Negative 04/08/2020 16:42 [facility] FLU B RNA Result (FLBRES) Negative Negative 04/08/2020 16:42 [facility] RSV RNA Result (RSVRES) Negative Negative 04/08/2020 16:42 [facility] Swab ENTIRE NASOPHARYNX / Unknown Swab / Unknown 04/08/2020 8:17 EST 04/08/2020 8:22 EST Viv Kumar MD MICROBIOLOGY - [employer] NERAL ORDERABLES Performing Organization Address [facility] Co de Phone Number [facility] [address] [place] [address] * (ABNORMAL) POCT GLUCOSE, INTERFACED (04/08/2020 1:56 EST) Glucose, POC 133(H) 70 - 100 mg/dL 04/08/2020 4:01 [facility] aquarium tank attendant ID 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 04/08/2020 4:01 [facility] HN LAB POC COMMENT (GLUCOSE) Test Performed by Nursing Services 04/08/2020 4:01 [facility] Blood CAPILLARY BLOOD / Unknown 04/08/2020 1:56 EST 04/08/2020 4:01 EST Cherry Cowan MD POINT OF CARE T EST ORDERABLES Performing Organization Address [facility]/ZIP Co de Phone Number [facility] [address] [place] [address] * ALPHA 1 ANTITRYPSIN (04/08/2020 0:35 EST) Alpha 1 Antitrypsin 127 90 - 200 mg/dL 04/09/2020 10:22 EST [facility] Blood VENOUS BLOOD / Unknown Venipuncture / Unknown 04/08/2020 0:35 EST 04/08/2020 0:41 EST Mary Chirinos MD CHEMISTRY & BLOOD GAS ORDERABLES Performing Organization Address [facility] Co de Phone Number [facility] [address] [place] [address] * PROCALCITONIN (04/08/2020 0:35 EST) Pathologist [facility] Procalcitonin <0.02 See Note ng/mL 04/08/2020 1:34 EST [facility] Comment: NOTE: Reference Range: <0.5 ng/mL - Low risk of severe sepsis >2.0 ng/mL - High risk of severe sepsis Blood VENOUS BLOOD / Unknown Venipuncture / Unknown 04/08/2020 0:35 EST 04/08/2020 0:41 EST Viv Kumar MD CHEMISTRY & BLOOD GAS ORDERABLES Performing Organization Address [facility] Co de Phone Number [facility] [address] [place] [address] * (ABNORMAL) COMPLETE BLOOD COUNT AND DIFFERENTIAL (04/08/2020 0:35 EST) WBC 9.68 4.00 - 10.40 K/cmm 04/08/2020 0:48 EST [facility] RBC 5.49 4.36 - 5.78 M/cmm 04/08/2020 0:48 EST [facility] Hemoglobin 17.3 13.8 - 17.3 gm/dL 04/08/2020 0:48 EST [facility] HCT 52.3(H) 39.5 - 50.2 % 04/08/2020 0:48 [facility] MCV 95 81 - 95 fl 04/08/2020 0:48 [facility] MCH 31.5 27.6 - 33.0 pg 04/08/2020 0:48 [facility] MCHC 33.1 32.8 - 36.4 gm/dL 04/08/2020 0:48 [facility] RDW-CV 13.2 <14.2 % 04/08/2020 0:48 [facility] RDW-SD 46.3(H) <46.0 fl 04/08/2020 0:48 [facility] PLT 174 141 - 377 K/cmm 04/08/2020 0:48 [facility] MPV 10.2 9.5 - 12.7 fl 04/08/2020 0:48 [facility] % Neutrophils 92.9 % 04/08/2020 0:48 [facility] % Lymphocytes 4.6 % 04/08/2020 0:48 [facility] % Monocytes 2.1 % 04/08/2020 0:48 [facility] % Eosinophils 0.0 % 04/08/2020 0:48 [facility] % Basophils 0.1 % 04/08/2020 0:48 [facility] % Immature Grans 0.3 % 04/08/20 20 0:48 [facility] Absolute Neutrophils 8.99(H) 2.20 - 8.85 K/cmm 04/08/2020 0:48 [facility] Absolute Lymphocytes 0.45(L) 1.09 - 3.30 K/cmm 04/08/2020 0:48 [facility] Absolute Monocytes 0.20 0.10 - 0.80 K/cmm 04/08/2020 0:48 [facility] Absolute Eosinophils 0.00(L) 0.03 - 0.61 K/cmm 04/08/2020 0:48 [facility] ABS Basophils 0.01 0.01 - 0.11 K/cmm 04/08/2020 0:48 EST [facility] Absolute Immature Grans 0.03 0.00 - 0.06 K/cmm 04/08/2020 0:48 EST [facility] Type of Differential: Auto 04/08/2020 0:48 EST [facility] Blood VENOUS BLOOD / Unknown Venipuncture / Unknown 04/08/2020 0:35 EST 04/08/2020 0:41 EST Viv Kumar MD PACKAGES & DNA TX OBE ORDERABLES Performing Organization Address [facility] Co de Phone Number [facility] [address] [place] [address] * LACTIC ACID (04/08/2020 0:35 EST) Lactic Acid 1.7 <=2.0 mmol/L 04/08/2020 0:53 EST [facility] Blood VENOUS BLOOD / Unknown Venipuncture / Unknown 04/08/2020 0:35 EST 04/08/2020 0:41 EST Viv Kumar MD CHEMISTRY & BLOOD GAS ORDERABLES Performing Organization Address [facility] Phone Number [facility] [address] [place] [address] * PROTEIN, TOTAL (04/08/2020 0:35 EST) Total Protein 7.0 6.3 - 8.2 g/dL 04/08/2020 0:59 EST [facility] Blood VENOUS BLOOD / Unknown Venipuncture / Unknown 04/08/2020 0:35 EST 04/08/2020 0:41 EST Viv Kumar MD CHEMISTRY & BLOOD GAS ORDERABLES Performing Organization Address [facility] de Phone Number [facility] [address] [place] [address] * TOTAL & DIRECT BILIRUBIN (04/08/2020 0:35 EST) Bilirubin, Total <0.5 <1.4 mg/dL 04/08/20 20 0:59 EST [facility] Conjugated Bilirubin 0.0 0.0 - 0.3 mg/dL 04/08/2020 0:59 EST [facility] Unconjugated Bilirubin 0.2 0.0 - 1.1 mg/dL 04/08/2020 0:59 EST [facility] Blood VENOUS BLOOD / Unknown Venipuncture / Unknown 04/08/2020 0:35 EST 04/08/2020 0:41 EST Viv Kumar MD CHEMISTRY & BLOOD GAS ORDERABLES Performing Organization Address City/[facility] Co de Phone Number [facility] [address] [place] [address] * AST (04/08/2020 0:35 EST) AST 19 15 - 46 U/L 04/08/2020 0:59 EST [facility] Blood VENOUS BLOOD / Unknown Venipuncture / Unknown 04/08/2020 0:35 EST 04/08/2020 0:41 EST Viv Kumar MD CHEMISTRY & BLOOD GAS ORDERABLES Performing Organization Address City/[facility] Co de Phone Number [facility] [address] [place] [address] * ALT (04/08/2020 0:35 EST) ALT 14 <50 U/L 04/08/2020 0:59 EST [facility] Blood VENOUS BLOOD / Unknown Venipuncture / Unknown 04/08/2020 0:35 EST 04/08/2020 0:41 EST Viv Kumar MD CHEMISTRY & BLOOD GAS ORDERABLES Performing Organization Address City/[facility] Co de Phone Number [facility] [address] [place] [address] * ALKALINE PHOSPHATASE (04/08/2020 0:35 EST) Alkaline Phosphatase 45 38 - 126 U/L 04/08/2020 0:59 EST [facility] Blood VENOUS BLOOD / Unknown Venipuncture / Unknown 04/08/2020 0:35 EST 04/08/2020 0:41 EST Viv Kumar MD CHEMISTRY & BLOOD GAS ORDERABLES Performing Organization Address [facility] Co de Phone Number [facility] [address] [place] [address] * ALBUMIN (04/08/2020 0:35 EST) Albumin 4.4 3.4 - 4.9 g/dL 04/08/2020 0:59 EST [facility] Blood VENOUS BLOOD / Unknown Venipuncture / Unknown 04/08/2020 0:35 EST 04/08/2020 0:41 EST Viv Kumar MD CHEMISTRY & BLOOD GAS ORDERABLES Performing Organization Address [facility] Phone Number [facility] [address] [place] [address] * (ABNORMAL) CREATININE (04/08/2020 0:35 EST) Creatinine 0.61(L) 0.66 - 1.25 mg/dL 04/08/2020 0:59 EST [facility] eGFR 120 >60 mL/min/1.7 3m2 04/08/2020 0:59 EST [facility] Comment:eGFR calculated kvng g CKD-EPI equation for non- Americans. Multiply eGFR by 1.16 for patients. Blood VENOUS BLOOD / Unknown Venipuncture / Unknown 04/08/2020 0:35 EST 04/08/2020 0:41 EST Viv Kumar MD CHEMISTRY & BLOOD GAS ORDERABLES Performing Organization Address [facility] Co de Phone Number [facility] [address] [place] [address] * BUN (04/08/2020 0:35 EST) BUN 14 10 - 26 mg/dL 04/08/2020 0:59 EST [facility] Blood VENOUS BLOOD / Unknown Venipuncture / Unknown 04/08/2020 0:35 EST 04/08/2020 0:41 EST Viv Kumar MD CHEMISTRY & BLOOD GAS ORDERABLES [facility] [address] [place] [address] * (ABNORMAL) SCREENING GLUCOSE (04/08/2020 0:35 EST) Glucose, Screening 149(H) 70 - 100 mg/dL 04/08/2020 0:59 EST [facility] Blood VENOUS BLOOD / Unknown Venipuncture / Unknown 04/08/2020 0:35 EST 04/08/2020 0:41 EST Viv Kumar MD CHEMISTRY & BLOOD GAS ORDERABLES Performing Organization Address [facility] Co de Phone Number [facility] [address] [place] [address] * CALCIUM (04/08/2020 0:35 EST) Calcium 9.4 8.5 - 10.5 mg/dL 04/08/2020 0:59 EST [facility] Calculated Calcium 9.1 8.5 - 10.5 mg/dL 04/08/2020 0:59 EST [facility] Blood VENOUS BLOOD / Unknown Venipuncture / Unknown 04/08/2020 0:35 EST 04/08/2020 0:41 EST Viv Kumar MD CHEMISTRY & BLOOD GAS ORDERABLES Performing Organization Address City/[facility]/ZIP Co de Phone Number [facility] [address] [place] [address] * PHOSPHORUS (04/08/2020 0:35 EST) Phosphorus 3.5 2.5 - 4.5 mg/dL 04/08/2020 0:59 EST [facility] Blood VENOUS BLOOD / Unknown Venipuncture / Unknown 04/08/2020 0:35 EST 04/08/2020 0:41 EST Viv Kumar MD CHEMISTRY & BLOOD GAS ORDERABLES Performing Organization Address [facility] Co de Phone Number [facility] [address] [place] [address] * MAGNESIUM (04/08/2020 0:35 EST) Magnesium 2.2 1.7 - 2.8 mg/dL 04/08/2020 0:59 EST [facility] Blood VENOUS BLOOD / Unknown Venipuncture / Unknown 04/08/2020 0:35 EST 04/08/2020 0:41 EST Viv Kumar MD CHEMISTRY & BLOOD GAS ORDERABLES Performing Organization Address [facility] de Phone Number [facility] [address] [place] [address] * (ABNORMAL) ELECTROLYTES (04/08/2020 0:35 EST) Sodium 144 136 - 145 mEq/L 04/08/2020 0:59 EST [facility] Potassium 4.5 3.5 - 5.0 mEq/L 04/08/2020 0:59 EST [facility] Chloride 102 96 - 110 mEq/L 04/08/2020 0:59 EST [facility] CO2 Total 37(H) 22 - 32 mEq/L 04/08/2020 0:59 EST [facility] Blood VENOUS BLOOD / Unknown Venipuncture / Unknown 04/08/2020 0:35 EST 04/08/2020 0:41 EST Viv Kumar MD CHEMISTRY & BLOOD GAS ORDERABLES Performing Organization Address [facility] de Phone Number [facility] [address] [place] [address] * EKG 12-LEAD (04/08/2020 0:23 EST) 04/08/2020 0:23 EST Narrative [facility] EKG - 04/09/2020 9:56 EST ? [facility] ? Test Date: ?2020-04-08 Pat Name: ? GARRET BARROS ?Department: ?? [place] [address] ? Room: ? M408 Gender: ? Male ? 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 Requested By: CHERRY COWAN MD Order Number: [id number] ? Reading MD: ?? JUDAH GONZALEZ MD ? Measurements Intervals ?[place] ? Rate: ? 61 ? P: ?61 TX: ? 156 ?QRS: ?73 QRSD: ? 101 ?T: ?85 QT: ? 419 ? QTc: ?424 ? Interpretive Statements SINUS RHYTHM WITH OCCASIONAL SUPRAVENTRICULAR PREMATURE COMPLEXES Poor data quality Nonspecific ST and T wave abnormaliities Compared to ECG 08/09/2012 08:34:33 No significant change I reviewed the tracing and have either agreed or edited the findings in this report. Electronically Signed On 04-09-2020 9:56:29 EST by JUDAH GONZALEZ MD. 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 Electronically Signed On 04-09-2020 9:56:29 EST by JUDAH SMITH. Viv Kumar MD CARDIAC ECG ORDER CJ [facility] EKG * MRSA PCR (04/08/2020 0:13 EST) MRSA/Staph aureus Result No Staphylococcus aureus detected by PCR 04/08/2020 12:17 EST [facility] Swab ENTIRE NARIS / Unknown Swab / Unknown 04/08/2020 0:13 EST 04/08/2020 7:25 EST Viv Kumar MD MICROBIOLOGY - [employer] ORDERABLES [facility] [address] [place] [address] documented in this encounter Visit Diagnoses Diagnosis COPD exacerbation (HCC-CMS)- Primary Obstructive chronic bronchitis with exacerbation COPD exacerbation (HCC-CMS) Obstructive chronic bronchitis with exacerbation Acute on chronic respiratory failure with hypercapnia (HCC-CMS) Chronic hepatitis C without hepatic coma (HCC-CMS) Chronic hepatitis C without mention of hepatic coma History of substance abuse (HCC-CMS) Other, mixed, or unspecified nondependent drug abuse, unspecified Acute respiratory failure with hypoxia (HCC-CMS) Acute respiratory failure Somnolence Other alteration of consciousness Methadone 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 (HCC-CMS) Opioid type dependence, unspecified documented in this encounter Administered Medications Inactive Administered Medications - up to 3 most recent administrations Medication Order MAR Action Action Date Dose Rate Site acetaminophen (TYLENOL) tablet 650 mg 650 mg, oral, EVERY 6 HOURS PRN, Starting on Mon04/08/20 at 0012, Until Mon04/10/20 at 1946, Pain, Fever, Pain or Temperature > 38, Routine Given 04/08/2020 8:10 EST 650 mg albuterol (ACCUNEB) nebulizer solution 2.5 mg 2.5 mg, nebulization, EVERY 2 HOURS PRN, Starting on Mon04/08/20 at 0126, Until Mon04/10/20 at 1946, Wheezing, Routine azithromycin (ZITHROMAX) tablet 500 mg 500 mg, oral, DAILY, 3 doses, First dose on Mon04/08/20 at 0900, Last dose on Mon04/10/20 at 0900, Routine Given 04/10/2020 8:37 EST 500 mg Given 04/09/2020 8:08 EST 500 mg Given 04/08/2020 8:10 EST 500 mg DULoxetine (CYMBALTA) delayed release capsule 60 mg 60 mg, oral, DAILY, First dose on Mon04/08/20 at 1645, Until Discontinued, Routine Given 04/10/2020 8:40 EST 60 mg Given 04/09/2020 8:08 EST 60 mg Given 04/08/2020 17:10 EST 60 mg enoxaparin (LOVENOX) injection 40 mg 40 mg, subcutaneous, DAILY, First dose on Mon04/08/20 at 0900, Until Discontinued, Routine Given 04/10/2020 8:37 EST 40 mg Given 04/09/2020 8:08 EST 40 mg Given 04/08/2020 8:10 EST 40 mg ipratropium-albuteroL (DUONEB) 0.5 mg-3 mg(2.5 mg base)/3 mL nebulizer solution 3 mL 3 mL, nebulization, EVERY 6 HOURS, First dose on Mon04/08/20 at 0030, Until Discontinued, Routine Given 04/08/2020 0:45 EST 3 mL ipratropium-albuteroL (DUONEB) 0.5 mg-3 mg(2.5 mg base)/3 mL nebulizer solution 3 mL 3 mL, nebulization, EVERY 4 HOURS, First dose (after last modification) on Mon04/08/20 at 0400, Until Discontinued, Routine Given 04/08/2020 4:55 EST 3 mL ipratropium-albuteroL (DUONEB) 0.5 mg-3 mg(2.5 mg base)/3 mL nebulizer solution 3 mL 3 mL, nebulization, 4 TIMES DAILY, First dose (after last modification) on Mon04/08/20 at 0900, Until Discontinued, Routine Given 04/10/2020 12:25 EST 3 mL Given 04/10/2020 9:07 EST 3 mL Given 04/09/2020 20:11 EST 3 mL lidocaine 5 % (LIDODERM) patch 1 Patch 1 Patch, transdermal, Administer over 12 Hours, DAILY, First dose on Mon04/09/20 at 1800, Until Discontinued, Routine Patch Applied 04/09/2020 17:23 EST 1 Patch Back lisinopriL (PRINIVIL) tablet 10 mg 10 mg, oral, DAILY, First dose on Mon04/08/20 at 1645, Until Discontinued, Routine Given 04/10/2020 8:40 EST 10 mg Given 04/09/2020 8:08 EST 10 mg Given 04/08/2020 17:10 EST 10 mg LORazepam (ATIVAN) tablet 1 mg 1 mg, oral, 2 TIMES DAILY, First dose on Mon04/08/20 at 2100, Until Discontinued, Routine Given 04/10/2020 13:50 EST 1 mg Given 04/10/2020 8:40 EST 1 mg Given 04/09/2020 13:10 EST 1 mg methadone (DOLOPHINE) concentrated solution 132 mg 132 mg, oral, DAILY, First dose on Mon04/08/20 at 1000, Until Discontinued, Routine Given 04/10/2020 8:37 EST 132 mg Given 04/09/2020 9:35 EST 132 mg Given 04/08/2020 11:23 EST 132 mg mometasone-formoterol (DULERA) 200-5 mcg/actuation inhaler 2 Puff 2 Puff, inhalation, 2 TIMES DAILY, First dose on Mon04/08/20 at 0900, Until Discontinued, Routine Given 04/10/2020 9:08 EST 2 Puffs Given 04/09/2020 20:11 EST 2 Puffs Given 04/09/2020 7:46 EST 2 Puffs nicotine (NICODERM CQ) 21 mg/24 hr patch 1 Patch 1 Patch, transdermal, DAILY, First dose on Mon04/08/20 at 0900, Until Discontinued, Routine Patch Applied 04/10/2020 8:41 EST 1 Patch Right A rm Patch Applied 04/09/2020 8:07 EST 1 Patch Le ft Arm Patch Applied 04/08/2020 8:10 EST 1 Patch Ri ght Arm pantoprazole (PROTONIX) tablet 40 mg 40 mg, oral, DAILY, First dose on Mon04/08/20 at 1645, Until Discontinued, Routine Given 04/10/2020 8:39 EST 40 mg Given 04/09/2020 8:08 EST 40 mg Given 04/08/2020 17:10 EST 40 mg perflutren lipid microspheres (DEFINITY) 0.165 mg in sodium chloride (PF) 1 mL 0.165 mg, intravenous, Once (Without Time Specified), 1 dose, Starting on Arlene 04/09/20 at 1211, Until Arlene 04/09/20 at 1212, Routine Given 04/09/2020 12:12 EST 3 mL IV polyethylene glycol 3350 (MIRALAX) packet 17 g 17 g, oral, DAILY PRN, Starting on Mon04/08/20 at 0012, Until Mon04/10/20 at 1946, Constipation, Routine Given 04/10/2020 11:28 EST 17 g predniSONE (DELTASONE) tablet 30 mg 30 mg, oral, DAILY, First dose on Mon04/13/20 at 0900, Until Discontinued, Routine predniSONE (DELTASONE) tablet 40 mg 40 mg, oral, DAILY, First dose on Mon04/08/20 at 0900, Until Discontinued, Routine Given 04/08/2020 8:10 EST 40 mg predniSONE (DELTASONE) tablet 40 mg 40 mg, oral, DAILY, 4 doses, First dose (after last modification) on Mon04/09/20 at 0900, Last dose on Mon04/12/20 at 0900, Routine Given 04/10/2020 8:41 EST 40 m g Given 04/09/2020 8:09 EST 40 mg pregabalin (LYRICA) capsule 100 mg 100 mg, oral, 3 TIMES DAILY, First dose (after last modification) on Mon04/09/20 at 2100, Until Discontinued, Routine Given 04/10/2020 13:50 EST 100 mg Given 04/10/2020 8:40 EST 100 mg Given 04/09/2020 20:36 EST 100 mg pregabalin (LYRICA) capsule 200 mg 200 mg, oral, DAILY, 1 dose, First dose on Mon04/08/20 at 1400, Routine Given 04/08/2020 13:51 EST 200 mg pregabalin (LYRICA) capsule 200 mg 200 mg, oral, 3 TIMES DAILY, First dose (after last reorder) on Mon04/08/20 at 2100, Until Discontinued, Routine Given 04/09/2020 13:00 EST 200 mg Given 04/09/2020 8:08 EST 200 mg Given 04/08/2020 21:30 EST 200 mg QUEtiapine (SEROQUEL XR) XR tablet 200 mg 200 mg, oral, AT BEDTIME, First dose (after last modification) on Mon04/09/20 at 2100, Until Discontinued, Routine Given 04/09/2020 21:03 EST 200 mg QUEtiapine (SEROQUEL XR) XR tablet 300 mg 300 mg, oral, AT BEDTIME, First dose on Mon04/08/20 at 2100, Until Discontinued, Routine Given 04/08/2020 21:30 EST 3 00 mg senna (SENOKOT) tablet 2 Tab 2 Tablet, oral, 2 TIMES DAILY PRN, Starting on Mon04/08/20 at 0012, Until Mon04/10/20 at 1946, Constipation, Routine Given 04/10/2020 11:29 EST 2 Tablets sennosides (SENOKOT) syrup 17.6 mg 17.6 mg (10 mL), per ng tube, 2 TIMES DAILY PRN, Starting on Mon04/08/20 at 0012, Until Mon04/10/20 at 1946, Constipation, Routine tiotropium (SPIRIVA) 18 mcg inhalation capsule 18 mcg 18 mcg, inhalation, DAILY, First dose on Mon04/08/20 at 0900, Until Discontinued, Routine Given 04/10/2020 9:11 EST 18 mcg Given 04/09/2020 7:46 EST 18 mcg Given 04/08/2020 9:05 EST 18 mcg zonisamide (ZONEGRAN) capsule 200 mg 200 mg, oral, DAILY, First dose on Mon04/08/20 at 1645, Until Discontinued, Routine Given 04/10/2020 8:38 EST 200 mg Given 04/09/2020 9:34 EST 200 mg Given 04/08/2020 21:30 EST 200 mg documented in this encounter Discontinued Medications Medication Sig Discontinue Reason Start Date End Da te erythromycin (ROMYCIN) 5 mg/gram (0.5 %) ophthalmic ointment Place 1 cm into the right eye 4 times daily Therapy completed 07/25/2014 04/08/2020 levETIRAcetam (KEPPRA) 1,000 mg tablet Take 1 Tab by mouth 2 times daily. Therapy completed 01/04/2017 04/08/2020 hydrOXYzine (VISTARIL) 25 mg capsule Take 25 mg by mouth 4 times daily as needed. Reported on 04/12/2016 Therapy completed 04/08/2020 oxyCODONE 10 mg immediate release tablet Take 1 Tab by mouth every 6 hours as needed for Pain. Earliest Fill Date: 03/16/16 Daily Max: 40 mg Therapy completed 03/16/2016 04/08/2020 oxyCODONE-acetaminophen (PERCOCET) 5-325 mg per tablet Take 1 Tab by mouth every 4 hours as needed for Pain. Therapy completed 04/26/2013 04/08/2020 pregabalin (LYRICA) 200 mg capsule Take 200 mg by mouth 3 times daily. Reorder 01/04/2017 04/10/2020 busPIRone (BUSPAR) 15 mg tablet Take 15 mg by mouth 3 times daily. 04/10/2020 documented as of this encounter Historical Medications * This list may reflect changes made after this encounter. Medication Sig Dispensed Refills Start Date End Date pantoprazole (PROTONIX) 20 mg tablet Take 40 mg by mouth daily. nicotine (NICODERM CQ) 21 mg/[address] 21 mg onto the skin daily. methadone (DOLOPHINE) 10 mg tablet Take 132 mg by mouth every 4 hours as needed for Pain. glecaprevir-pibrentasvir (MAVYRET) 100-40 mg tablet Take 3 Tabs by mouth daily. guaiFENesin (ROBITUSSIN) 100 mg/5 mL liquid Take 200 mg by mouth every 4 hours. fluticasone propionate (FLOVENT) 220 mcg/actuation inhaler Inhale 220 mcg as directed 2 times daily. DULoxetine (CYMBALTA) 60 mg capsule Take 60 mg by mouth daily. LORazepam (ATIVAN) 1 mg tablet Take 1 mg by mouth 2 times daily. umeclidinium-vilanteroL (ANORO ELLIPTA) 62.5-25 mcg/actuation inhaler Inhale 1 Puff as directed daily. busPIRone (BUSPAR) 15 mg tablet Take 15 mg by mouth 3 times daily. 04/10/2020 added in this encounter Active and Recently Administered Medications Times are shown in EST. Scheduled Medication Order 04/08/2020 04/09/2020 04/10/2020 azithromycin (ZITHROMAX) tablet 500 mg (COMPLETED) 500 mg, oral, DAILY, 3 doses, First dose on Mon04/08/20 at 0900, Last dose on Mon04/10/20 at 0900, Routine 0810 (Given - Provider: Sera Mars RN) 0808 (Given - Provider: Kenny Villarreal, CHRISTINE) 0837 (Given - Provider: Rupali Dodge, RN) DULoxetine (CYMBALTA) delayed release capsule 60 mg 60 mg, oral, DAILY, First dose on Mon04/08/20 at 1645, Until Discontinued, Routine 1710 (Given - Provider: Sera Mars RN) 0808 (Given - Provider: Kenny Villarreal, CHRISTINE) 0840 (Given - Provider: Rupali Dodge, RN) enoxaparin (LOVENOX) injection 40 mg 40 mg, subcutaneous, DAILY, First dose on Mon04/08/20 at 0900, Until Discontinued, Routine 0810 (Given - Provider: Sera Mars RN) 0808 (Given - Provider: Kenny Villarreal RN) 0837 (Given - Provider: Rupali Dodge RN) ipratropium-albuteroL (DUONEB) 0.5 mg-3 mg(2.5 mg base)/3 mL nebulizer solution 3 mL (CANCELED) 3 mL, nebulization, EVERY 6 HOURS, First dose on Mon04/08/20 at 0030, Until Discontinued, Routine 0045 (Given - Provider: Francisca Alberto RT) ipratropium-albuteroL (DUONEB) 0.5 mg-3 mg(2.5 mg base)/3 mL nebulizer solution 3 mL (CANCELED) 3 mL, nebulization, EVERY 4 HOURS, First dose (after last modification) on Mon04/08/20 at 0400, Until Discontinued, Routine 0455 (Given - Provider: Francisca Alberto RT) ipratropium-albuteroL (DUONEB) 0.5 mg-3 mg(2.5 mg base)/3 mL nebulizer solution 3 mL 3 mL, nebulization, 4 TIMES DAILY, First dose (after last modification) on Mon04/08/20 at 0900, Until Discontinued, Routine 0904 (Given - Provider: Ramesh Vo RT)1330 (Given - Provider: Ramesh Vo RT)1655 (Given - Provider: Ramesh Vo RT)2027 (Given - Provider: Adelina Alaniz) 0745 (Given - Provider: Js Marie RT)1217 (Given - Provider: Js Marie RT)1611 (Given - Provider: Js Marie RT)2011 (Given - Provider: Clari Cadet) 0907 (Given - Provider: Caity Olvera, RT)1225 (Given - Provider: Caity Olvera RT)1721 (Hold - Provider: Caity Olvera RT - Reason: Other) lidocaine 5 % (LIDODERM) patch 1 Patch 1 Patch, transdermal, Administer over 12 Hours, DAILY, First dose on Mon04/09/20 at 1800, Until Discontinued, Routine 1723 (Patch Applied - Provider: Kenny Villarreal RN) 0056 (Patch Removed - Provider: Matteo García RN - Comment: r)1800 (Canceled Entry - Provider: Batch Job User Admin - Comment: Automatically canceled at discontinue of medication order) lisinopriL (PRINIVIL) tablet 10 mg 10 mg, oral, DAILY, First dose on Mon04/08/20 at 1645, Until Discontinued, Routine 1710 (Given - Provider: Sera Mars RN) 0808 (Given - Provider: Kenny Villarreal, CHRISTINE) 0840 (Given - Provider: Rupali Dodge, CHRISTINE) LORazepam (ATIVAN) tablet 1 mg 1 mg, oral, 2 TIMES DAILY, First dose on Mon04/08/20 at 2100, Until Discontinued, Routine 2130 (Given - Provider: Lorie Frost RN) 0808 (Given - Provider: Kenny Villarreal RN)1310 (Given - Provider: Kenny Villarreal RN) 0840 (Given - Provider: Rupali Dodge RN)1350 (Given - Provider: Rupali Dodge, CHRISTINE) methadone (DOLOPHINE) concentrated solution 132 mg 132 mg, oral, DAILY, First dose on Mon04/08/20 at 1000, Until Discontinued, Routine 1123 (Given - Provider: Sera Mars RN) 0935 (Given - Provider: Kenny Villarreal RN) 0837 (Given - Provider: Rupali Dodge RN) mometasone-formoterol (DULERA) 200-5 mcg/actuation inhaler 2 Puff 2 Puff, inhalation, 2 TIMES DAILY, First dose on Mon04/08/20 at 0900, Until Discontinued, Routine 0905 (Given - Provider: Ramesh Vo, RT)2027 (Given - Provider: Adelina Alaniz) 0746 (Given - Provider: Js Marie, RT)2010 (Given - Provider: Clari Cadet) 0908 (Given - Provider: Caity Olvera, RT) nicotine (NICODERM CQ) 21 mg/24 hr patch 1 Patch 1 Patch, transdermal, DAILY, First dose on Mon04/08/20 at 0900, Until Discontinued, Routine 0810 (Patch Applied - Provider: Sera Mars RN)213 (Patch Removed - Provider: Lorie Frost RN) 08 (Patch Applied - Provider: Kneny Villarreal RN)2040 (Patch Removed - Provider: Matteo García RN) 0841 (Patch Applied - Provider: Rupali Dodge, CHRISTINE)2100 (Due: Patch Removed - Provider: Rupali Dodge RN) pantoprazole (PROTONIX) tablet 40 mg 40 mg, oral, DAILY, First dose on Mon04/08/20 at 1645, Until Discontinued, Routine 1710 (Given - Provider: Sera Mars RN) 0808 (Given - Provider: Kenny Villarreal RN) 0839 (Given - Provider: Rupali Dodge RN) perflutren lipid microspheres (DEFINITY) 0.165 mg in sodium chloride (PF) 1 mL (COMPLETED) 0.165 mg, intravenous, Once (Without Time Specified), 1 dose, Starting on Mon04/09/20 at 1211, Until Mon04/09/20 at 1212, Routine 1212 (Given - Provider: Kat Benson) predniSONE (DELTASONE) tablet 30 mg 30 mg, oral, DAILY, First dose on Mon04/13/20 at 0900, Until Discontinued, Routine predniSONE (DELTASONE) tablet 40 mg (CANCELED) 40 mg, oral, DAILY, First dose on Mon04/08/20 at 0900, Until Discontinued, Routine 0810 (Given - Provider: Sera Mars RN) predniSONE (DELTASONE) tablet 40 mg 40 mg, oral, DAILY, 4 doses, First dose (after last modification) on Mon04/09/20 at 0900, Last dose on Mon04/12/20 at 0900, Routine 0809 (Given - Provider: Kenny Villarreal RN) 0841 (Given - Provider: Rupali Dodge RN) pregabalin (LYRICA) capsule 100 mg 100 mg, oral, 3 TIMES DAILY, First dose (after last modification) on Mon04/09/20 at 2100, Until Discontinued, Routine 203 (Given - Provider: Matteo García RN) 0840 (Given - Provider: Rupali Dodge RN)1350 (Given - Provider: Rupali Dodge, CHRISTINE) pregabalin (LYRICA) capsule 200 mg (COMPLETED) 200 mg, oral, DAILY, 1 dose, First dose on Mon04/08/20 at 1400, Routine 1351 (Given - Provider: Sera Mars RN) pregabalin (LYRICA) capsule 200 mg (CANCELED) 200 mg, oral, 3 TIMES DAILY, First dose (after last reorder) on Mon04/08/20 at 2100, Until Discontinued, Routine 2130 (Given - Provider: Lorie Frost RN) 0808 (Given - Provider: Kenny Villarreal RN)1300 (Given - Provider: Kenny Villarreal RN) QUEtiapine (SEROQUEL XR) XR tablet 200 mg 200 mg, oral, AT BEDTIME, First dose (after last modification) on Mon04/09/20 at 2100, Until Discontinued, Routine 210 (Given - Provider: Matteo García, CHRISTINE) QUEtiapine (SEROQUEL XR) XR tablet 300 mg (CANCELED) 300 mg, oral, AT BEDTIME, First dose on Mon04/08/20 at 2100, Until Discontinued, Routine 213 (Given - Provider: Lorie Frost RN) tiotropium (SPIRIVA) 18 mcg inhalation capsule 18 mcg 18 mcg, inhalation, DAILY, First dose on Mon04/08/20 at 0900, Until Discontinued, Routine 09 (Given - Provider: Ramesh Vo, RT) 0746 (Given - Provider: Js Marie RT) 0911 (Given - Provider: Caity Olvera RT) zonisamide (ZONEGRAN) capsule 200 mg 200 mg, oral, DAILY, First dose on Mon04/08/20 at 1645, Until Discontinued, Routine 213 (Given - Provider: Lorie Frost RN) 0934 (Given - Provider: Kenny Villarreal RN) 0838 (Given - Provider: Rupali Dodge RN) PRN Medication Order 04/08/2020 04/09/2020 04/10/2020 acetaminophen (TYLENOL) tablet 650 mg 650 mg, oral, EVERY 6 HOURS PRN, Starting on Mon04/08/20 at 0012, Until Mon04/10/20 at 1946, Pain, Fever, Pain or Temperature > 38, Routine 0810 (Given - Provider: Sera Mars RN) albuterol (ACCUNEB) nebulizer solution 2.5 mg 2.5 mg, nebulization, EVERY 2 HOURS PRN, Starting on Mon04/08/20 at 0126, Until Mon04/10/20 at 1946, Wheezing, Routine lidocaine (PF) 10 mg/mL (1 %) injection 2 mg 2 mg, intradermal, PRN, 4 doses, Starting on Mon04/08/20 at 0012, Until Mon04/10/20 at 1946, peripheral intravenous catheter placement, Routine magnesium sulfate 2g in D5W 50 ml 2 g, intravenous, Administer over 30 Minutes, PRN, Starting on Mon04/08/20 at 0012, Until Mon04/10/20 at 194, Routine polyethylene glycol 3350 (MIRALAX) packet 17 g 17 g, oral, DAILY PRN, Starting on Mon04/08/20 at 0012, Until Mon04/10/20 at 1946, Constipation, Routine 1128 (Given - Provid er: Rupali Dodge RN) potassium chloride in water infusion 20 mEq 20 mEq, intravenous, at 100 mL/hr, PRN, Starting on Mon04/08/20 at 0012, Until Mon04/10/20 at 194, hypokalemia, See admin instructions., Routine senna (SENOKOT) tablet 2 Tab(Linked Group 1) 2 Tablet, oral, 2 TIMES DAILY PRN, Starting on Mon04/08/20 at 0012, Until Mon04/10/20 at 194, Constipation, Routine 1129 (Given - Provid er: Rupali Dodge RN) sennosides (SENOKOT) syrup 17.6 mg(Linked Group 1) 17.6 mg (10 mL), per ng tube, 2 TIMES DAILY PRN, Starting on Mon04/08/20 at 0012, Until Mon04/10/20 at 194, Constipation, Routine 1129 (See Alternativ e - Provider: Rupali Dodge RN) Linked Groups Order Group 1: senna (SENOKOT) tablet 2 TabJump to med 2 Tablet, oral, 2 TIMES DAILY PRN, Starting on Mon04/08/20 at 0012, Until Mon04/10/20 at 1946, Constipation, Routine Or sennosides (SENOKOT) syrup 17.6 mgJump to med 17.6 mg (10 mL), per ng tube, 2 TIMES DAILY PRN, Starting on Mon04/08/20 at 0012, Until Mon04/10/20 at 1946, Constipation, Routine documented in this encounter Orders Medications Ordered That Ganesh ht Not Have Been Administered Count Last Ordered Date First Ordered Date albuterol (ACCUNEB) nebulize r solution 2.5 mg 2 04/08/2020 ipratropium-albuteroL (DUONE B) 0.5 mg-3 mg(2.5 mg base)/3 mL nebulizer solution 3 mL 2 04/08/2020 lidocaine (PF) 10 mg/mL (1 % ) injection 2 mg 1 04/08/2020 magnesium sulfate 2g in D5W 50 ml 1 020 potassium chloride in water infusion 20 mEq 1 04/08/2020 predniSONE (DELTASONE) tablet 30 mg 1 04/08 pregabalin (LYRICA) capsule 200 mg 1 2019 sennosides (SENOKOT) syrup 17.6 mg 1 2019 Diet Count Last Ordered Date First Orde red Date DISCHARGE DIET 1 04/10/2020 Nursing Count Last Ordered Date First Orde red Date ACTIVITY INSTRUCTIONS 1 04/10/2020 BATHING INSTRUCTIONS 1 04/10/2020 DRIVING INSTRUCTIONS 1 04/10/2020 Respiratory Care Count Last Ordered Date First Ordered Date DRY POWDERED OR METERED DOSE INHALER 8 03/3104/08/2020 NEBULIZER TX INTERMITTENT 11 04/10/2020 Admission Count Last Ordered Date First Orde red Date ADMIT TO INPATIENT 1 04/07/2020 Transfer Count Last Ordered Date First Orde red Date NON-TEACHING SERVICE 1 04/09/2020 TRANSFER PATIENT 1 04/08/2020 TRANSFER TO OTHER FACILITY 1 04/08/2020 Discharge Count Last Ordered Date First Orde red Date DISCHARGE PATIENT 1 04/10/2020 Legal Count Last Ordered Date First Orde red Date MISCELLANEOUS DISCHARGE INSTRUCTIONS 1 03/31 documented in this encounter Care Teams Supervisory Investigative Specialist Relationship Specialty Start Date End Date Travis Castaneda MD [address] [place] [address] PCP - General 04/02/18 documented as of this encounter
--- OUTSIDE RECORDS SUMMARY | 2024-02-29 09:04 | XMS_ITS | Encounter Summary ---
Author Organization [facility] Address [address] [place] [address] Care Team Providers Care Supervisor Tubing Name Role Phone Travis Castaneda MD Primary Care Provider [phone] Reason for Visit * (Routine) - Receiving Office to Obtain Authorization Specialty Diagnoses / Procedures Referred By Gulshan arguelles Referred To Contact Procedures XR OUTSIDE IMAGES CHEST Unknown, Provider, Referral ID Status Reason Start Date Expiration Date Visits Requested Visits Authorized [id number] Receiving Office to Obtain Authorization 06/15/2020 1 1 Encounter Details Date Type Department Care Team (Latest Contact Info) Description 04/07/2020 - 04/07/2020 0:04 EST Hospital Encounter [facility] Secondary Reads [place] Discharge Disposition: [...] Caps by mouth daily. 1 Cap 04/11/2020 busPIRone (BUSPAR) 15 mg tablet Take 15 mg by mouth 3 times daily. 04/10/2020 erythromycin (ROMYCIN) 5 mg/gram (0.5 %) ophthalmic [...] for Pain. 10 Tab 0 04/26/2013 04/08/2020 predniSONE (DELTASONE) 10 mg tablet Take 4 Tabs by mouth daily for 3 days, THEN 3 Tabs daily for 7 days, THEN 2 Tabs daily for 7 days, THEN 1 Tab daily for 7 days. 54 Tab 04/13/2020 05/07/2020 pregabalin (LYRICA) 200 mg capsule Take 200 mg by mouth 3 times daily. 01/04/2017 04/10/2020 documented as of this encounter Discharge Disposition Disposition Code Departure Means Destination Home or Self Care documented in this encounter Plan of Treatment Not on file documented as of this encounter Procedures Procedure Name Priority Date/Time Associated Diagnosis Comments XR OUTSIDE IMAGES CHEST Routine 06/15/2020 8:18 EST documented in this encounter Results * XR OUTSIDE IMAGES CHEST (06/15/2020 8:18 EST) Narrative 06/15/2020 8:18 EST This is a non-reportable exam. Provider Unknown MD FARRELL OTHER IMAGING OR DERABLES documented in this encounter Visit Diagnoses Not on filedocumented in this encounter Care Teams Supervisor Tubing Relationship Specialty Start Date End Date Travis Castaneda MD [address] [place] [address] PCP - General 04/02/18 documented as of this encounter
--- OUTSIDE RECORDS SUMMARY | 2024-02-29 09:04 | XMS_ITS | Encounter Summary ---
Author Organization [facility] Address [address] [place] [address] Care Team Providers Care Compressor Repairer Name Role Phone Cassie Roberts MD Primary Care Provider Unavailabl e Reason for Visit * Reason Comments Procedure fibroscan Encounter Details Date Type Department Care Team (Late st Contact Info) Description 01/12/2017 14:00 EDT Office Visit [facility] Gastroenterology - [address] [address] Gunnar Mcmullen MD PhD [address] [place] [address], [address] [place] [id number] Chronic hepatitis C without hepatic coma (CMS-HCC) (Primary Dx) Discharge Disposition: Auto Discharge Social History Tobacco Use Types Packs/Day Years [...] No 01/28/2016 documented as of this encounter Discharge Diagnoses Diagnosis B18.2 Chronic viral hepatitis C-B18.2[ICD-10-CM] documented in this encounter Discharge Disposition Disposition Code Departure Means Destination Auto Discharge documented in this encounter Procedure Notes * Gunnar Mcmullen MD - 01/12/2017 1400 EDTProcedure(s): VIBRATION CONTROLLED TRANSIENT ELASTOGRAPHY (VCTE) [facility] Hepatology Fibrosis Assessment Patient: Garret Barros : 1975 [employer] Operator: Gunnar Mcmullen MD Referring Physician: Cassie Roberts MD Liver disease diagnosis: hepatitis C Procedure: Vibration Controlled Transient Elastography (VCTE) or Fibroscan [place] Protocol: Patient's identity, procedure and site were verified, confirmatory pause performed. Discussed procedure including risks and potential complications. Questions answered. Patient verbalizes understanding and wishes to proceed with Fibroscan assessment. Patient was placed in the supine position with right arm in maximum abduction to allow optimal exposure of right lateral abdomen. Patient was briefly assessed. Testing was performed in the mid-axillary location. 50Hz Shear Wave pulses were applied and the resulting Shear Wave and Propagation Speed was detected with a 3.5MHz ultrasonic signal, using the Fibroscan XL probe. Skin to liver capsule distance and liver parenchyma were accessed during the entire examination with the Fibroscan probe. Patient was instructed to breathe normally and abstain from sudden movements during the procedure. At least ten Shear Waves were produced; individual measurements of each Shear Wave were calculated. Patient tolerated the procedure well with no complications. Fibroscan Results: Median kPa: 6.9 IQR kPa: 2.0 Fractional IQR: 29% (goal is <30%) Success rate: 74% (goal is >60%) Predicted fibrosis stage: F0-F1 Interpretation: Garret Barros is a 41 y.o. male with hepatitis C. Based on his Fibroscan results, patient likely has: No or minimal hepatic fibrosis (F0-F1). Gunnar Mcmullen MD Cc: Cassie Roberts MD [address] [facility] [phone] documented in this encounter Plan of Treatment Not on file documented as of this encounter Visit Diagnoses Diagnosis Chronic hepatitis C without hepatic coma (HCC-CMS)- Primary Chronic hepatitis C without mention of hepatic coma documented in this encounter Care Teams Compressor Repairer Relationship Specialty Start Date End Date Cassie Roberts MD PCP - General 01/28/16 04/01/18 documented as of this encounter
--- OUTSIDE RECORDS SUMMARY | 2024-02-29 09:04 | XMS_ITS | Encounter Summary ---
Author Organization [facility] Address [address] [place] [address] Care Team Providers Care Manager Digital Ad Operations Name Role Phone Travis Castaneda MD Primary Care Provider [phone] Reason for Visit * (Routine) - Receiving Office to Obtain Authorization Specialty Diagnoses / Procedures Referred By Gulshan arguelles Referred To Contact Procedures XR OUTSIDE IMAGES CHEST Unknown, Provider, Referral ID Status Reason Start Date Expiration Date Visits Requested Visits Authorized [id number] Receiving Office to Obtain Authorization 11/19/2019 1 1 Encounter Details Date Type Department Care Team (Latest Contact Info) Description 11/19/2019 17:27 EDT - 11/19/2019 23:59 EDT Hospital Encounter [facility] Radiology - Main [place] [address] [place] [address] Discharge Disposition: Home or Self Care Social [...] Date/Time Associated Diagnosis Comments CT OUTSIDE IMAGES CHEST Routine 11/19/2019 17:27 EDT XR OUTSIDE IMAGES CHEST Routine 11/19/2019 17:27 EDT documented in this encounter Results * CT OUTSIDE IMAGES CHEST (11/19/2019 17:27 EDT) Narrative [facility] - 11/19/2019 17:27 EDT This is a non-reportable exam. Provider Unknown MD FARRELL OTHER IMAGING OR DERABLES Performing Organization Address [facility] de Phone Number [id number] * XR OUTSIDE IMAGES CHEST (11/19/2019 17:27 EDT) Narrative [facility] - 11/19/2019 17:27 EDT This is a non-reportable exam. Provider Unknown MD FARRELL OTHER IMAGING OR DERABLES Performing Organization Address [facility] de Phone Number [id number] documented in this encounter Visit Diagnoses Not on filedocumented in this encounter Care Teams Manager Digital Ad Operations Relationship Specialty Start Date End Date Travis Castaneda MD [address] [place] [address] PCP - General 04/02/18 documented as of this encounter
--- OUTSIDE RECORDS SUMMARY | 2024-02-29 09:04 | XMS_ITS | Encounter Summary ---
Author Organization [facility] Address [address] [place] [address] Care Team Providers Care Clinical Rn Manager Name Role Phone Travis Castaneda MD Primary Care Provider [phone] Encounter Details Date Type Department Care Team (Late st Contact Info) Description 05/14/2018 Documentation Visit [facility] Gastroenterology - [address] [id number] Gunnar Mcmullen MD PhD [address] [place] [address], [address] [place] [address] Social History Tobacco Use Types [...] encounter Progress Notes * Gustavo Monterroso - 05/14/[address] Mcmullen, the patient should not be rescheduled with him until the patient's PCP pages him to discuss case. documented in this encounter Plan of Treatment Not on file documented as of this encounter Visit Diagnoses Not on filedocumented in this encounter Care Teams Clinical Rn Manager Relationship Specialty Start Date End Date Travis Castaneda MD [address] [place] [address] PCP - General 04/02/18 documented as of this encounter
--- OUTSIDE RECORDS SUMMARY | 2024-02-29 09:04 | XMS_ITS | Encounter Summary ---
Author Organization [facility] Address [address] [place] [address] Care Team Providers Care Shipping And Receiving Supervisor Name Role Phone Cassie Roberts MD Primary Care Provider Unavailabl e Encounter Details Date Type Department Care Team (Late st Contact Info) Description 01/02/2017 Results Only Imaging [facility] [phone] Unknown, Provider, Social History Tobacco Use Types Packs/Day Years [...] Functional Status Response Date of Assess ment Because of a physical, menta l, or emotional condition, does this person have difficulty doing errands alone such as visiting a doctor's office or shopping? No 01/28/2016 Cognitive Status Response Date of Assessm ent Because of a physical, menta l, or emotional condition, does this person have serious difficulty concentrating, remembering, or making decisions? No 01/28/2016 documented as of this encounter Plan of Treatment Pending Results Name Type Priority Associated Diagnoses Date /Time OUTSIDE IMAGES - OTHER CHEST Imaging 01/02/2017 20:05 EDT OUTSIDE IMAGES - CT NEURO Imaging 01/02/2017 20:05 EDT documented as of this encounter Visit Diagnoses Not on filedocumented in this encounter Care Teams Shipping And Receiving Supervisor Relationship Specialty Start Date End Date Cassie Roberts MD PCP - General 01/28/16 04/01/18 documented as of this encounter
--- OUTSIDE RECORDS SUMMARY | 2024-02-29 09:04 | XMS_ITS | Encounter Summary ---
Author Organization [facility] Address [address] [place] [address] Care Team Providers Care Wrapper Stemmer Hand Name Role Phone Travis Castaneda MD Primary Care Provider [phone] Encounter Details Date Type Department Care Team (Latest Contact Info) Description 04/05/2018 9:22 EST - 04/05/2018 23:59 EST Hospital Encounter [address] [address] Travis Castaneda MD [address] [place] [address] Discharge Disposition: Auto Discharge Social History Tobacco [...] as of this encounter Discharge Diagnoses Diagnosis R91.1 Solitary pulmonary nodule-R91.1[ICD-10-CM] R59.0 Localized enlarged lymph nodes-R59.0[ICD-10-CM] documented in this encounter Medications at Time [...] Disposition Code Departure Means Destination Auto Discharge Home documented in this encounter Plan of Treatment Not on file documented as of this encounter Visit Diagnoses Not on filedocumented in this encounter Care Teams Wrapper Stemmer Hand Relationship Specialty Start Date End Date Travis Castaneda MD [address] [place] [address] PCP - General 04/02/18 documented as of this encounter
--- OUTSIDE RECORDS SUMMARY | 2024-02-29 09:04 | XMS_ITS | Encounter Summary ---
Author Organization [facility] Address [address] [place] [address] Care Team Providers Care Leisure Travel Agent Name Role Phone Travis Castaneda MD Primary Care Provider [phone] Encounter Details Date Type Department Care Team (Latest Contact Info) Description 04/07/2020 Travel Social History Tobacco Use Types Packs/Day [...] on filedocumented in this encounter Care Teams Leisure Travel Agent Relationship Specialty Start Date End Date Travis Castaneda MD [address] [place] [address] PCP - General 04/02/18 documented as of this encounter
--- OUTSIDE RECORDS SUMMARY | 2024-02-29 09:04 | XMS_ITS | Encounter Summary ---
Author Organization [facility] Address [address] [place] [address] Care Team Providers Care Molder Apprentice Name Role Phone Travis Castaneda MD Primary Care Provider [phone] Encounter Details Date Type Department Care Team (Late st Contact Info) Description 05/15/2020 Lab Requisition [facility] Pathology & Laboratory Medicine - [facility] [address] [place] [address] Outr Resulting Lab, Provider Social History Tobacco [...] Diagnosis Comments HCV RNA DETECT QUANT Routine 05/14/2020 10:00 EST documented in this encounter Results * HCV RNA DETECT QUANT (05/14/2020 10:00 EST) HCV RNA Qualitative Undetected Undetected 05/18/2020 14:45 EST [facility] Blood VENOUS BLOOD / Unknown 05/14/2020 10:00 EST 05/15/2020 17:29 EST Narrative [facility] - 05/18/2020 14:45 EST The quantification range of this assay is 15 IU/mL to 100,000,000 IU/mL. ??Testing was performed on the SHEFALI Ampliprep/SHEFALI TaqMan HCV v2.0 ([employer] Provider Outr Resulting Lab CHEMISTRY & BLOOD GAS ORDERABLES [facility] [address] [place] [address] documented in this encounter Visit Diagnoses Not on filedocumented in this encounter Care Teams Molder Apprentice Relationship Specialty Start Date End Date Travis Castaneda MD [address] [place] [address] PCP - General 04/02/18 documented as of this encounter
--- OUTSIDE RECORDS SUMMARY | 2024-02-29 09:04 | XMS_ITS | Encounter Summary ---
Author Organization [facility] Address [address] [place] [address] Care Team Providers Care Diving Coach Name Role Phone Travis Castaneda MD Primary Care Provider [phone] Reason for Visit * Reason Onset Date Comments Discuss Possible Transfer 03/31/2019 Encounter Details Date Type Department Care Team (Late st Contact Info) Description 03/31/[address] [address] Hetal Morrow MD [address] [place] [phone] Discuss Possible Transfer Social History Tobacco Use Types Packs/Day Years [...] encounter Miscellaneous Notes * Telephone Encounter - Hetal Morrow MD - 03/31/2019 1540 EST I was called via the RTC by Dr. Js Mike in the ED at [facility] about Mr. Barros. He has apparently been in status epilepticus and was unconscious for 2 hours. Neurology was called and felt that he may be more appropriate for medicine. However, at the time I was connected with Dr. Mike, the patient's status epilepticus broke and he was awake and talking. He is refusing to transfer to [facility], so I did not discuss his case further with Dr. Mike. Dr. Mike will call back if the patient agrees to transfer to [facility]. This patient is currently not accepted in transfer. Hetal Morrow MD 03/31/2019 15:44 documented in this encounter Plan of Treatment Not on file documented as of this encounter Visit Diagnoses Not on filedocumented in this encounter Care Teams Diving Coach Relationship Specialty Start Date End Date Travis Castandea MD [address] [place] [address] PCP - General 04/02/18 documented as of this encounter
--- OUTSIDE RECORDS SUMMARY | 2024-02-29 09:04 | XMS_ITS | Encounter Summary ---
Author Organization [facility] Address [address] [place] [address] Care Team Providers Care Microfilm Machine Operator Name Role Phone Travis Castaneda MD Primary Care Provider [phone] Reason for Visit * (Routine) - Receiving Office to Obtain Authorization Specialty Diagnoses / Procedures Referred By Gulshan arguelles Referred To Contact Procedures XR OUTSIDE IMAGES CHEST Unknown, Provider, Referral ID Status Reason Start Date Expiration Date Visits Requested Visits Authorized [id number] Receiving Office to Obtain Authorization 06/15/2020 1 1 Encounter Details Date Type Department Care Team (Latest Contact Info) Description 04/07/2020 0:05 EST - 04/07/2020 23:55 EST Hospital Encounter [facility] [place] Discharge Disposition: Home or [...] on filedocumented in this encounter Care Teams Microfilm Machine Operator Relationship Specialty Start Date End Date Travis Castaneda MD [address] [place] [address] PCP - General 04/02/18 documented as of this encounter
--- OUTSIDE RECORDS SUMMARY | 2024-02-29 09:04 | XMS_ITS | Encounter Summary ---
Author Organization [facility] Address [address] [place] [address] Care Team Providers Care Information Technology Director Name Role Phone Travis Castaneda MD Primary Care Provider [phone] Encounter Details Date Type Department Care Team (Late st Contact Info) Description 02/07/2020 Lab Requisition [facility] Pathology & Laboratory Medicine - [facility] [address] [place] [address] Outr Resulting Lab, Provider Social History Tobacco Use Types Packs/Day Years Used Date Smoking Tobacco: Every Day Cigarettes Smokeless Tobacco: Never Alcohol Use Standard Drinks/Week Comments No 0 (1 standard drink = 0.6 oz pur e alcohol) quit Interpersonal Safety Answer Date Record ed Physically [...] Diagnosis Comments HCV RNA DETECT QUANT Routine 02/06/2020 14:15 EDT HEPATITIS B CORE ANTIBODY (TOTAL) Routine 02/06/2020 14:15 EDT HEPATITIS B SURFACE ANTIGEN Routine 02/06/2020 14:15 EDT documented in this encounter Results * (ABNORMAL) HCV RNA DETECT QUANT (02/06/2020 14:15 EDT) Pathologist [facility] HCV RNA Qualitative Detected( A) Undetected 02/10/2020 15:16 EDT [facility] HCV RNA Quantitative 2,318,264 (H) Undetected IU/mL 02/10/2020 15:16 EDT [facility] Blood VENOUS BLOOD / Unknown 02/06/2020 14:15 EDT 02/07/2020 17:09 EDT Narrative [facility] - 02/10/2020 15:16 EDT The quantification range of this assay is 15 IU/mL to 100,000,000 IU/mL. ??Testing was performed on the SHEFALI Ampliprep/SHEFALI TaqMan HCV v2.0 ([employer] Provider Outr Resulting Lab CHEMISTRY & BLOOD GAS ORDERABLES Performing Organization Address City/[facility]/ZIP Co de Phone Number [facility] [address] [place] [phone] * HEPATITIS B CORE ANTIBODY (TOTAL) (02/06/2020 14:15 EDT) Hepatitis B Core Ab, Total Negative Negative 02/10/2020 11:35 EDT [facility] Blood VENOUS BLOOD / Unknown 02/06/2020 14:15 EDT 02/07/2020 17:09 EDT Provider Outr Resulting Lab CHEMISTRY & BLOOD GAS ORDERABLES Performing Organization Address [facility]/ZIP Co de Phone Number [facility] [address] [place] [address] * HEPATITIS B SURFACE ANTIGEN (02/06/2020 14:15 EDT) Hep B Surface Ag Negative Negative 02/10/2020 10:22 EDT [facility] Blood VENOUS BLOOD / Unknown 02/06/2020 14:15 EDT 02/07/2020 17:09 EDT Provider Outr Resulting Lab CHEMISTRY & BLOOD GAS ORDERABLES [facility] [address] [place] [address] documented in this encounter Visit Diagnoses Not on filedocumented in this encounter Care Teams Information Technology Director Relationship Specialty Start Date End Date Travis Castaneda MD [address] [place] [address] PCP - General 04/02/18 documented as of this encounter
--- OUTSIDE RECORDS SUMMARY | 2024-02-29 09:04 | XMS_ITS | Encounter Summary ---
Author Organization [facility] Address [address] [place] [address] Care Team Providers Care Collar Tacker Name Role Phone Cassie Roberts MD Primary Care Provider Unavailabl e Reason for Visit * Reason Onset Date Comments Results 04/14/2016 Encounter Details Date Type Department Care Team (Late st Contact Info) Description 04/14/[address] [facility] Gastroenterology - [address] [address] Ina Ferreira, RN Results Social History Tobacco Use Types Packs/Day Years [...] encounter Miscellaneous Notes * Telephone Encounter - Ina Ferreira RN - 04/14/2016 1030 EST The patient was called at 's request and read his lab result letter with recommendationsto proceed with elastography. He will be called by 's ui ux developer to book this appointment. Garret is in agreement with this plan. documented in this encounter Plan of Treatment Not on file documented as of this encounter Visit Diagnoses Not on filedocumented in this encounter Care Teams Collar Tacker Relationship Specialty Start Date End Date Cassie Roberts MD PCP - General 01/28/16 04/01/18 documented as of this encounter
--- OUTSIDE RECORDS SUMMARY | 2024-02-29 09:04 | XMS_ITS | Encounter Summary ---
Author Organization [facility] Address [address] [place] [address] Care Team Providers Care Bullet Swaging Machine Operator Name Role Phone Travis Castaneda MD Primary Care Provider [phone] Encounter Details Date Type Department Care Team (Late st Contact Info) Description 04/05/2018 Results Only Imaging [facility] [phone] Travis Castaneda MD [address] [place] [id number] Social History Tobacco Use Types Packs/Day Years [...] Associated Diagnoses Date /Time OUTSIDE IMAGES - CT CHEST Imaging 04/05/2018 14:42 EST documented as of this encounter Procedures Procedure Name Priority Date/Time Associated Diagnosis Comments NM PET CT EYE TO THIGH 04/05/2018 13:11 EST documented in this encounter Results * NM PET CT EYE TO THIGH (04/05/2018 13:11 EST) Anatomical Region Laterality Modality Other 04/05/2018 13:1 1 EST 04/05/2018 16:31 EST Narrative 04/05/2018 16:[address] EYE TO THIGH ??04/05/2018 1:11 PM Signs and Symptoms: ??lung nodule, hilar adenopathy Comparison: Outside CT chest from 03/26/2018. Technique: Approximately 88 minutes following the IV injection of 11.74 mCi of [id number], 3D TOF PET imaging was obtained from the head through the upper thighs. Attenuation correction was provided using a Qvolve digital PET dedicated closed ring PET / CT system. ??The blood glucose level prior to injection was 79 mg/dl. ?? The injection site was the right forearm. The patient drank radiopaque oral contrast prior to the study. Findings: Head and neck: No abnormal radiotracer uptake is seen. Chest: No abnormal radiotracer uptake is seen. There numerous, round, circumscribed both calcified and noncalcified nodules measuring approximately 2-4 mm throughout both lungs. PET CT is insensitive for nodules less than 8 mm. There is extensive centrilobular and paraseptal emphysema. There is left lingular atelectasis/scarring with minimal, expected radiotracer uptake. No hilar adenopathy is seen. Mild coronary artery calcification is present. Abdomen and pelvis: No abnormal radiotracer uptake is seen. There is a 9 mm right renal hypodense lesion, probable cyst. ??IVC filter is present. There is mild aortic calcification. Musculoskeletal: There is increased radiotracer uptake at the site of the patient's healing multiple left lower rib fractures. There is symmetric, mildly increased radiotracer uptake of bilateral, subcentimeter inguinal lymph nodes, which are likely reactive. No suspicious radiotracer uptake is seen. 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 There is left hip soft tissue calcification, likely heterotopic ossification. Impression: 1. ??No abnormal radiotracer uptake is seen to suggest malignancy. The threshold for pulmonary nodule detection on PET CT is 8 mm. ??The numerous both calcified and noncalcified lung nodules measure approximately up to 4 millimeters. These are likely reflective of granulomatous disease. 2. ??Multiple healing left lower rib fractures. 3. ??Severe emphysema. 4. ??Right renal cyst. 5. ?? IVC filter. I have personally reviewed the images and the above interpretation and agree with the findings. Procedure Note Pritesh Gandhi MD - 04/05/[address] EYE TO THIGH 04/05/2018 1:11 PM Signs and Symptoms: lung nodule, hilar adenopathy Comparison: Outside CT chest from 03/26/2018. Technique: Approximately 88 minutes following the IV injection of 11.74 mCi of [id number], 3D TOF PET imaging was obtained from the head through the upper thighs. Attenuation correction was provided using a Qvolve digital PET dedicated closed ring PET / CT system. The blood glucose level prior to injection was 79 mg/dl. The injection site was the right forearm. The patient drank radiopaque oral contrast prior to the study. Findings: Head and neck: No abnormal radiotracer uptake is seen. Chest: No abnormal radiotracer uptake is seen. There numerous, round, circumscribed both calcified and noncalcified nodules measuring approximately 2-4 mm throughout both lungs. PET CT is insensitive for nodules less than 8 mm. There is extensive centrilobular and paraseptal emphysema. There is left lingular atelectasis/scarring with minimal, expected radiotracer uptake. No hilar adenopathy is seen. Mild coronary artery calcification is present. Abdomen and pelvis: No abnormal radiotracer uptake is seen. There is a 9 mm right renal hypodense lesion, probable cyst. IVC filter is present. There is mild aortic calcification. Musculoskeletal: There is increased radiotracer uptake at the site of the patient's healing multiple left lower rib fractures. There is symmetric, mildly increased radiotracer uptake of bilateral, subcentimeter inguinal lymph nodes, which are likely reactive. No suspicious radiotracer uptake is seen. 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 There is left hip soft tissue calcification, likely heterotopic ossification. Impression: 1. No abnormal radiotracer uptake is seen to suggest malignancy. The threshold for pulmonary nodule detection on PET CT is 8 mm. The numerous both calcified and noncalcified lung nodules measure approximately up to 4 millimeters. These are likely reflective of granulomatous disease. 2. Multiple healing left lower rib fractures. 3. Severe emphysema. 4. Right renal cyst. 5. IVC filter. I have personally reviewed the images and the above interpretation and agree with the findings. Travis Castaneda MD [facility] [place] ORDERABLES documented in this encounter Visit Diagnoses Not on filedocumented in this encounter Care Teams Bullet Swaging Machine Operator Relationship Specialty Start Date End Date Travis Castaneda MD [address] [place] [address] PCP - General 04/02/18 documented as of this encounter
--- OUTSIDE RECORDS SUMMARY | 2024-02-29 09:04 | XMS_ITS | Encounter Summary ---
Author Organization [facility] Address [address] [place] [address] Care Team Providers Care Platform Inspector Name Role Phone Travis Castaneda MD Primary Care Provider [phone] Encounter Details Date Type Department Care Team (Late st Contact Info) Description 04/09/2019 Lab Requisition [facility] Pathology & Laboratory Medicine - [facility] [address] [place] [address] Unknown, Provider, Social History Tobacco Use Types [...] Procedure Name Priority Date/Time Associated Diagnosis Comments PROLACTIN Routine 04/08/2019 18:09 EST documented in this encounter Results * PROLACTIN (04/08/2019 18:09 EST) Prolactin 6.5 2.1 - 17.7 ng/mL 04/10/2019 10:45 EST [facility] Blood VENOUS BLOOD / Unknown 04/08/2019 18:09 EST 04/09/2019 21:51 EST Provider Unknown CHEMISTRY & BLOOD GA S ORDERABLES Performing Organization Address City/State/[facility] Co de Phone Number [facility] [address] [place] [address] documented in this encounter Visit Diagnoses Not on filedocumented in this encounter Care Teams Platform Inspector Relationship Specialty Start Date End Date Travis Castaneda MD [address] [place] [address] PCP - General 04/02/18 documented as of this encounter
--- OUTSIDE RECORDS SUMMARY | 2024-02-29 09:04 | XMS_ITS | Encounter Summary ---
Author Organization [facility] Address [address] [place] [address] Care Team Providers Care Fisheries Enforcement Officer Name Role Phone Travis Castaneda MD Primary Care Provider [phone] Encounter Details Date Type Department Care Team (Late st Contact Info) Description 02/07/[address] [facility] Pathology & Laboratory Medicine - [facility] [address] [place] [address] Outr Resulting Lab, Provider Social History Tobacco [...] Procedure Name Priority Date/Time Associated Diagnosis Comments HIV 1/2 ANTIGEN AND ANTIBODY, 4TH GENERATION Routine 02/06/2020 14:15 EDT documented in this encounter Results * HIV 1/2 ANTIGEN AND ANTIBODY, 4TH GENERATION (02/06/2020 14:15 EDT) HIV 1 and 2 Antibody/p24 Antigen, 4th Generation Negative Negative 02/10/2020 11:05 EDT [facility] Comment: If acute HIV-1 infection is suspected in a high risk ??patient, submit plasma specimen for HIV-1 RNA quantitation test. Fourth Generation assay performed on the Siemens Lontraaur. Blood VENOUS BLOOD / Unknown 02/06/2020 14:15 EDT 02/07/2020 17:09 EDT Provider Outr Resulting Lab IMMUNOLOGY A ND SEROLOGY ORDERABLES [facility] [address] [place] [address] documented in this encounter Visit Diagnoses Not on filedocumented in this encounter Care Teams Fisheries Enforcement Officer Relationship Specialty Start Date End Date Travis Castaneda MD [address] [place] [address] PCP - General 04/02/18 documented as of this encounter
--- OUTSIDE RECORDS SUMMARY | 2024-02-29 09:04 | XMS_ITS | Encounter Summary ---
Author Organization [facility] Address [address] [place] [address] Care Team Providers Care [employer] Name Role Phone Travis Castaneda MD Primary Care Provider [phone] Encounter Details Date Type Department Care Team (Late st Contact Info) Description 04/05/2018 Results Only [facility] [phone] Unknown, Provider, Social History Tobacco Use Types [...] Procedure Name Priority Date/Time Associated Diagnosis Comments GLUCOSE, GLUCOMETER Routine 04/05/2018 1 0:25 EST documented in this encounter Results * GLUCOSE, GLUCOMETER (04/05/2018 10:25 EST) Glucose, Fingerstick 79 70 - 100 mg/dl 04/05/2018 10:28 EST [facility] [place] ID [id number] 04/05/2018 10:28 EST [facility] Comment:Test performed by [facility] BLOOD SPECIMEN / Unknown 04/05/2018 10:25 EST 04/05/2018 10:28 EST Provider Unknown CHEMISTRY & BLOOD GA S ORDERABLES Performing Organization Address City/State/[facility] Co de Phone Number [facility] [address] [place] [address] documented in this encounter Visit Diagnoses Not on filedocumented in this encounter Care Teams [employer]over Relationship Specialty Start Date End Date Travis Castaneda MD [address] [place] [address] PCP - General 04/02/18 documented as of this encounter
--- OUTSIDE RECORDS SUMMARY | 2024-02-29 09:04 | XMS_ITS | Encounter Summary ---
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 4:37 EDT) Conjugated Bilirubin 0.0 0.0 - 0.3 mg/dl 01/03/2017 4:58 EDT [facility] Unconjugated Bilirubin 0.2 0.0 - 1.1 mg/dl 01/03/2017 4:58 EDT [facility] Bilirubin, Total 0.5 <1.4 mg/dl 01/04/20 17 4:58 EDT [facility] BLOOD SPECIMEN / Unknown 01/03/2017 4:37 EDT 01/03/2017 4:41 EDT Ramesh Roman MD CHEMISTRY & BLOOD GAS ORDERABLES [facility] [address] [place] [address] * AST (01/03/2017 4:37 EDT) AST 31 15 - 46 U/L 01/03/2017 4:58 EDT [facility] BLOOD SPECIMEN / Unknown 01/03/2017 4:37 EDT 01/03/2017 4:41 EDT Ramesh Roman MD CHEMISTRY & BLOOD GAS ORDERABLES Performing Organization Address City/[facility]/ZIP Co de Phone Number [facility] [address] [place] [address] * ALT (01/03/2017 4:37 EDT) ALT 36 21 - 72 U/L 01/03/2017 4:58 EDT [facility] BLOOD SPECIMEN / Unknown 01/03/2017 4:37 EDT 01/03/2017 4:41 EDT Ramesh Roman MD CHEMISTRY & BLOOD GAS ORDERABLES Performing Organization Address City/[facility]/ZIP Co de Phone Number [facility] [address] [place] [address] * ALKALINE PHOSPHATASE (01/03/2017 4:37 EDT) Total Alkaline Phosphatase 66 38 - 126 U/L 01/03/2017 4:58 EDT [facility] BLOOD SPECIMEN / Unknown 01/03/2017 4:37 EDT 01/03/2017 4:41 EDT Ramesh Roman MD CHEMISTRY & BLOOD GAS ORDERABLES Performing Organization Address City/[facility]/ZIP Co de Phone Number [facility] [address] [place] [address] * ALBUMIN (01/03/2017 4:37 EDT) Albumin 3.5 3.4 - 4.9 g/dl 01/03/2017 4:54 EDT [facility] BLOOD SPECIMEN / Unknown 01/03/2017 4:37 EDT 01/03/2017 4:41 EDT Ramesh Roman MD CHEMISTRY & BLOOD GAS ORDERABLES Performing Organization Address City/[facility]/ZIP Co de Phone Number [facility] [address] [place] [address] * T4 FREE (01/03/2017 4:37 EDT) T4, Free 1.1 0.8 - 2.2 ng/dl 01/03/2017 5:13 EDT [facility] Comment:New methodology in u se 10/26/16. Blood specimen (specimen) BLOOD SPECIMEN / Unknown 01/03/2017 4:37 EDT 01/03/2017 4:41 EDT Ramesh Roman MD CHEMISTRY & BLOOD GAS ORDERABLES Performing Organization Address City/[facility] Co de Phone Number [facility] [address] [place] [address] * (ABNORMAL) HEMAGRAM (01/03/2017 4:37 EDT) WBC 12.20(H) 4.0 - 10.4 K/cmm 01/03/2017 4:51 [facility] RBC 5.15 4.36 - 5.78 M/cmm 01/03/2017 4:51 [facility] Hemoglobin 17.0 13.8 - 17.3 gm/dl 01/03/2017 4:51 [facility] HCT 48.6 39.5 - 50.2 % 01/03/2017 4:51 [facility] MCV 94 81 - 95 fl 01/03/2017 4:51 [facility] MCH 33.0 27.6 - 33.0 pg 01/03/2017 4:51 [facility] MCHC 35.0 32.8 - 36.4 gm/dl 01/03/2017 4:51 [facility] RDW-CV 11.8 <14.2 % 01/03/2017 4:51 EDT [facility] RDW-SD 41.2 <46.0 fl 01/03/2017 4:51 EDT [facility] PLT 210 141 - 377 K/cmm 01/03/2017 4:51 EDT [facility] MPV 10.1 9.5 - 12.7 fl 01/03/2017 4:51 EDT [facility] Blood specimen (specimen) BLOOD SPECIMEN / Unknown 01/03/2017 4:37 EDT 01/03/2017 4:41 EDT Ramesh Roman MD HEMATOLOGY & PF4 ORDERABLES Performing Organization Address City/[facility]/ZIP Co de Phone Number [facility] [address] [place] [address] * (ABNORMAL) PHOSPHORUS (01/03/2017 4:37 EDT) Phosphorus 2.0(L) 2.5 - 4.5 mg/dl 01/03/2017 4:58 EDT [facility] Blood specimen (specimen) BLOOD SPECIMEN / Unknown 01/03/2017 4:37 EDT 01/03/2017 4:41 EDT Ramesh Roman MD CHEMISTRY & BLOOD GAS ORDERABLES Performing Organization Address [facility]/ZIP Co de Phone Number [facility] [address] [place] [phone] * MAGNESIUM (01/03/2017 4:37 EDT) Magnesium 2.2 1.7 - 2.8 mg/dl 01/03/2017 4:58 EDT [facility] Blood specimen (specimen) BLOOD SPECIMEN / Unknown 01/03/2017 4:37 EDT 01/03/2017 4:41 EDT Ramesh Roman MD CHEMISTRY & BLOOD GAS ORDERABLES Performing Organization Address City/[facility]/ZIP Co de Phone Number [facility] [address] [place] [address] * ELECTROLYTES (01/03/2017 4:37 EDT) Sodium 143 136 - 145 mEq/L 01/03/2017 4:58 EDT [facility] Potassium 3.5 3.5 - 5.0 mEq/L 01/03/2017 4:58 EDT [facility] Chloride 109 96 - 110 mEq/L 01/03/2017 4:58 EDT [facility] CO2 24 22 - 32 mEq/L 01/03/2017 4:58 EDT [facility] Blood specimen (specimen) BLOOD SPECIMEN / Unknown 01/03/2017 4:37 EDT 01/03/2017 4:41 EDT Ramesh Roman MD CHEMISTRY & BLOOD GAS ORDERABLES Performing Organization Address City/[facility]/ZIP Co de Phone Number [facility] [address] [place] [address] * (ABNORMAL) BUN (01/03/2017 4:37 EDT) BUN 5(L) 10 - 26 mg/dl 01/03/2017 4:58 EDT [facility] Blood specimen (specimen) BLOOD SPECIMEN / Unknown 01/03/2017 4:37 EDT 01/03/2017 4:41 EDT Ramesh Roman MD CHEMISTRY & BLOOD GAS ORDERABLES Performing Organization Address City/[facility]/ZIP Co de Phone Number [facility] [address] [place] [address] * (ABNORMAL) CALCIUM (01/03/2017 4:37 EDT) Calcium 7.9(L) 8.5 - 10.5 mg/dl 01/03/2017 4:58 EDT [facility] Calculated Calcium 8.4(L) 8.5 - 10.5 mg/dl 01/03/2017 4:58 EDT [facility] Blood specimen (specimen) BLOOD SPECIMEN / Unknown 01/03/2017 4:37 EDT 01/03/2017 4:41 EDT Ramesh Roman MD CHEMISTRY & BLOOD GAS ORDERABLES Performing Organization Address [facility]/ZIP Co de Phone Number [facility] [address] [place] [address] * (ABNORMAL) CREATININE (01/03/2017 4:37 EDT) Creatinine 0.57(L) 0.66 - 1.25 mg/dl 01/03/2017 4:58 EDT [facility] GFR, Calculated 126 >60 ml/min/1.7 3m2 01/03/2017 4:58 EDT [facility] Comment: eGFR calculated using CKD-EPI equation for non Americans. Multiply eGFR by 1.16 for Americans. Blood specimen (specimen) BLOOD SPECIMEN / Unknown 01/03/2017 4:37 EDT 01/03/2017 4:41 EDT Ramesh Roman MD CHEMISTRY & BLOOD GAS ORDERABLES Performing Organization Address [facility] Co de Phone Number [facility] [address] [place] [address] * (ABNORMAL) TSH (01/03/2017 4:37 EDT) TSH 0.40(L) 0.47 - 4.68 uIU/ml 01/03/2017 5:27 EDT [facility] Comment:New methodology in u se 10/26/16. Blood specimen (specimen) BLOOD SPECIMEN / Unknown 01/03/2017 4:37 EDT 01/03/2017 4:41 EDT Ramesh Roman MD CHEMISTRY & BLOOD GAS ORDERABLES Performing Organization Address City/[facility]/ZIP Co de Phone Number [facility] [address] [place] [address] * SCREENING GLUCOSE (01/03/2017 4:37 EDT) Glucose, Screening 92 70 - 100 mg/dl 01/03/2017 4:58 EDT [facility] Blood specimen (specimen) BLOOD SPECIMEN / Unknown 01/03/2017 4:37 EDT 01/03/2017 4:41 EDT Ramesh Roman MD CHEMISTRY & BLOOD GAS ORDERABLES [facility] [address] [place] [address] * PORTABLE CHEST 1 VIEW (01/02/2017 23:57 EDT) Anatomical Region Laterality Modality Other 01/02/2017 23:5 7 EDT 01/03/2017 9:05 EDT Narrative 01/03/2017 9:05 EDT PORTABLE CHEST 1 VIEW ??01/02/2017 11:57 PM Clinical History/Comments: hypoxia COMPARISON: 01/02/2017, 08/15/2012 chest x-rays. FINDINGS: Single portable 45 degrees upright AP view of the chest. Lines/tubes: ??None Soft tissues and bones: No significant abnormality. Cardiac and mediastinal contours: Normal. Lungs: No consolidation is identified. Diffuse interstitial thickening may reflect airways disease. Linear scarring or atelectasis is present in the left base.. Pleura: There is no evidence of pneumothorax or pleural fluid, but neither can be excluded on this non-upright radiograph. Impression: 1. No acute cardiopulmonary abnormality identified. 2. Stable, diffuse interstitial opacities throughout both lungs may reflect diffuse airways thickening. I have personally reviewed the images and the above interpretation and agree with the findings. Procedure Note Manish Levy MD - 01/03/2017 PORTABLE CHEST 1 VIEW 01/02/2017 11:57 PM Clinical History/Comments: hypoxia COMPARISON: 01/02/2017, 08/15/2012 chest x-rays. FINDINGS: Single portable 45 degrees upright AP view of the chest. Lines/tubes: None Soft tissues and bones: No significant abnormality. Cardiac and mediastinal contours: Normal. Lungs: No consolidation is identified. Diffuse interstitial thickening may reflect airways disease. Linear scarring or atelectasis is present in the left base.. Pleura: There is no evidence of pneumothorax or pleural fluid, but neither can be excluded on this non-upright radiograph. Impression: 1. No acute cardiopulmonary abnormality identified. 2. Stable, diffuse interstitial opacities throughout both lungs may reflect diffuse airways thickening. I have personally reviewed the images and the above interpretation and agree with the findings. Yuko Jackson MD IMG DIAGNOSTIC IMAGI NG ORDERABLES * (ABNORMAL) BLOOD GAS, G3 ISTAT (01/02/2017 23:42 EDT) pH, i-STAT 7.34(L) 7.35 - 7.45 01/02/2017 23:45 EDT [facility] pCO2, i-STAT 50(H) 35 - 45 mmHg 01/02/2017 23:45 EDT [facility] pO2, i-STAT 38(L) 80 - 105 mmHg 01/02/2017 23:45 T [facility] TCO2, i-STAT 28(H) 23 - 27 mEq/L 01/02/2017 23:45 T [facility] O2 Saturation 67(L) 95 - 98 % 01/02/2017 23:45 [facility] Base Excess, i-STAT 0 01/02/2017 23:45 T [facility] Sample Type VENOUS 01/02/2017 23:45 T [facility] digital manager ID [id number] 01/02/2017 23:45 T [facility] Comment: Test Performed by Respiratory For non-arterial reference ranges, please see ISTAT procedure. BLOOD SPECIMEN / Unknown 01/02/2017 23:42 EDT 01/02/2017 23:45 EDT Provider Unknown CHEMISTRY & BLOOD GA S ORDERABLES [facility] [address] [place] [id number] documented in this encounter Visit Diagnoses Diagnosis Seizure (HCC-CMS)- Primary Other convulsions Seizure (HCC-CMS) Other convulsions Erythema Unspecified erythematous condition Chronic pain disorder Chronic pain syndrome documented in this encounter Administered Medications Inactive Administered Medications - up to 3 most recent administrations Medication Order MAR Action Action Date Dose Rate Site albuterol inhaler 2 Puff 2 Puff, inhalation, EVERY 4 HOURS PRN, Starting on Mon01/03/17 at 0415, Until Mon01/04/17 at 1635, Wheezing, Shortness of Breath, Routine Given 01/04/2017 4:25 EDT 2 Puffs Given 01/03/2017 17:15 EDT 2 Puffs Given 01/03/2017 4:40 EDT 2 Puffs calcium gluconate 1,000 mg in dextrose 5% (D5W) 50 mL IVPB 1,000 mg (1 g), intravenous, Administer over 60 Minutes, NOW X1, 1 dose, On Mon01/04/17 at 0715, STAT Given 01/04/2017 8:02 EDT 1,000 mg heparin injection 5,000 Units 5,000 Units, subcutaneous, EVERY 8 HOURS, First dose on Mon01/03/17 at 0800, Until Discontinued, Routine Given 01/04/2017 8:15 EDT 5,000 Units Given 01/04/2017 1:23 EDT 5,000 Units Given 01/03/2017 15:57 EDT 5,000 Units HYDROmorphone (DILAUDID) injection 1 mg 1 mg, intravenous, NOW X1, 1 dose, On Mon01/03/17 at 0445, Routine Given 01/03/2017 4:36 EDT 1 mg HYDROmorphone (DILAUDID) injection 1 mg 1 mg, intravenous, NOW X1, 1 dose, On Mon01/03/17 at 2145, Routine Given 01/03/2017 21:48 EDT 1 mg ipratropium-albuterol (COMBIVENT RESPIMAT) 20-100 mcg/actuation inhaler 1 Puff 1 Puff, inhalation, EVERY 4 HOURS PRN, Starting on Mon01/03/17 at 0415, Until Mon01/04/17 at 1635, Shortness of Breath Given 01/04/2017 13:55 EDT 1 Puff ipratropium-albuterol (DUONEB) 0.5 mg-3 mg(2.5 mg base)/3 mL nebulizer solution 3 mL 3 mL, nebulization, NOW X1, 1 dose, On Mon01/03/17 at 0015, STAT Given 01/03/2017 0:04 EDT 3 mL ipratropium-albuterol (DUONEB) 0.5 mg-3 mg(2.5 mg base)/3 mL nebulizer solution 1 dose, Starting on Mon01/02/17 at 2358, Until Mon01/03/17 at 0004 ketOROLAC (TORADOL) 30 mg/mL (1 mL) injection 1 dose, Starting on Mon01/03/17 at 0332, Until Mon01/03/17 at 0441 ketOROLAC (TORADOL) injection 30 mg 30 mg, intravenous, EVERY 6 HOURS, 5 doses, First dose on Mon01/03/17 at 1245, Last dose on Mon01/04/17 at 1245, Routine Given 01/04/2017 12:14 EDT 30 mg Given 01/04/2017 5:48 EDT 30 mg Given 01/04/2017 1:24 EDT 30 mg levETIRAcetam (KEPPRA) 1,000 mg in sodium chloride (NS) 0.9 % 100 mL IVPB 1,000 mg, intravenous, Administer over 15 Minutes, EVERY 12 HOURS, First dose on Mon01/03/17 at 0745, Until Discontinued, STAT Given 01/03/2017 20:06 EDT 1,000 mg Given 01/03/2017 8:03 EDT 1,000 mg levETIRAcetam (KEPPRA) tablet 1,000 mg 1,000 mg, oral, 2 TIMES DAILY, First dose on Mon01/04/17 at 0900, Until Discontinued, Routine Given 01/04/2017 9:07 EDT 1,000 mg lisinopril (PRINIVIL, ZESTRIL) tablet 20 mg 20 mg, oral, DAILY, First dose on Mon01/03/17 at 0900, Until Discontinued, Routine Given 01/04/2017 8:02 EDT 20 mg LORazepam (ATIVAN) injection 2 mg 2 mg, intravenous, NOW X1, 1 dose, On Mon01/03/17 at 1330, Routine Given 01/03/2017 17:12 EDT 2 mg methadone (DOLOPHINE) concentrated solution 95 mg 95 mg, oral, Once (Without Time Specified), 1 dose, Starting on Mon01/03/17 at 0443, Until Mon01/03/17 at 0512, STAT Given 01/03/2017 5:12 EDT 95 mg methadone (DOLOPHINE) concentrated solution 95 mg 95 mg, oral, Once (Without Time Specified), 1 dose, Starting on Mon01/04/17 at 0815, Until Mon01/04/17 at 0815, STAT Given 01/04/2017 8:15 EDT 95 mg nicotine (NICODERM CQ) 21 mg/24 hr patch 1 Patch 1 Patch, transdermal, DAILY, First dose on Mon01/03/17 at 1115, Until Discontinued, STAT Patch Applied 01/04/2017 8:03 EDT 1 Patch Left Arm Patch Applied 01/03/2017 11:19 EDT 1 Patch L eft Arm nicotine (NICOTROL) 10 mg inhaler 1 Inhaler 1 Inhaler, inhalation, EVERY 2 HOURS PRN, Starting on Mon01/03/17 at 1046, Until Mon01/04/17 at 1635, Smoking Cessation, Routine nicotine inhaler (delivery device) 1 Each, inhalation, PRN, Starting on Mon01/03/17 at 1046, Until Mon01/04/17 at 1635, Smoking Cessation pregabalin (LYRICA) capsule 100 mg 100 mg, oral, 3 TIMES DAILY, First dose on Mon01/03/17 at 0845, Until Discontinued, Routine Given 01/03/2017 8:54 EDT 100 mg pregabalin (LYRICA) capsule 150 mg 150 mg, oral, 3 TIMES DAILY, First dose (after last modification) on Mon01/03/17 at 1400, Until Discontinued, Routine Given 01/04/2017 13:48 EDT 150 mg Given 01/04/2017 8:02 EDT 150 mg Given 01/03/2017 20:06 EDT 150 mg promethazine (PHENERGAN) injection 25 mg 25 mg, intramuscular, NOW X1, 1 dose, On Mon01/03/17 at 1230, Routine Given 01/03/2017 12:37 EDT 25 mg QUEtiapine (SEROQUEL XR) XR tablet 400 mg 400 mg, oral, AT BEDTIME, First dose on Mon01/03/17 at 2100, Until Discontinued, Routine Given 01/03/2017 20:29 EDT 40 0 mg documented in this encounter Historical Medications * This list may reflect changes made after this encounter. Medication Sig Dispensed Refills Start Date End Date QUEtiapine (SEROQUEL XR) 400 mg XR tablet Take 300 mg by mouth at bedtime. 01/04/2017 pregabalin (LYRICA) 200 mg capsule Take 200 mg by mouth 3 times daily. 01/04/2017 04/10/2020 added in this encounter Active and Recently Administered Medications Times are shown in EDT. Scheduled Medication Order 01/02/2017 01/03/2017 01/04/2017 calcium gluconate 1,000 mg in dextrose 5% (D5W) 50 mL IVPB (COMPLETED) 1,000 mg (1 g), intravenous, Administer over 60 Minutes, NOW X1, 1 dose, On Mon01/04/17 at 0715, STAT 0802 (Given - Provid er: Devorah Alvarado RN) heparin injection 5,000 Units 5,000 Units, subcutaneous, EVERY 8 HOURS, First dose on Mon01/03/17 at 0800, Until Discontinued, Routine 0813 (Given - Provider: Alana King, CHRISTINE)1557 (Given - Provider: Brittney Echevarria, CHRISTINE) 0123 (Given - Provider: Ramesh Gutierrez RN)0815 (Given - Provider: Devorah Alvarado, CHRISTINE) HYDROmorphone (DILAUDID) injection 1 mg (COMPLETED) 1 mg, intravenous, NOW X1, 1 dose, On Mon01/03/17 at 0445, Routine 0436 (Given - Provider: Zina Davis) HYDROmorphone (DILAUDID) injection 1 mg (COMPLETED) 1 mg, intravenous, NOW X1, 1 dose, On Mon01/03/17 at 2145, Routine 2148 (Given - Provider: Ramesh Gutierrez RN) ipratropium-albuterol (DUONEB) 0.5 mg-3 mg(2.5 mg base)/3 mL nebulizer solution 3 mL (COMPLETED) 3 mL, nebulization, NOW X1, 1 dose, On Mon01/03/17 at 0015, STAT 0004 (Given - Provider: Roel Littlejohn, CHRISTINE) ketOROLAC (TORADOL) injection 30 mg (COMPLETED) 30 mg, intravenous, EVERY 6 HOURS, 5 doses, First dose on Mon01/03/17 at 1245, Last dose on Mon01/04/17 at 1245, Routine 1237 (Given - Provider: Alana King, CHRISTINE)1857 (Given - Provider: Brittney Echevarria RN) 0124 (Given - Provider: Ramesh Gutierrez RN)0548 (Given - Provider: Ramesh Gutierrez RN)1214 (Given - Provider: Devorah Alvarado RN) levETIRAcetam (KEPPRA) 1,000 mg in sodium chloride (NS) 0.9 % 100 mL IVPB (CANCELED) 1,000 mg, intravenous, Administer over 15 Minutes, EVERY 12 HOURS, First dose on Mon01/03/17 at 0745, Until Discontinued, STAT 0803 (Given - Provider: Alana King RN)2005 (Given - Provider: Ramesh Gutierrez RN) levETIRAcetam (KEPPRA) tablet 1,000 mg 1,000 mg, oral, 2 TIMES DAILY, First dose on Mon01/04/17 at 0900, Until Discontinued, Routine 09 (Given - Provid er: Devorah Alvarado RN) lisinopril (PRINIVIL, ZESTRIL) tablet 20 mg 20 mg, oral, DAILY, First dose on Mon01/03/17 at 0900, Until Discontinued, Routine 0931 (Not Given - Provider: Alana King RN - Reason: Change in condition - Comment: , josias aware) 08 (Given - Provider: Devorah Alvarado RN) LORazepam (ATIVAN) injection 2 mg (COMPLETED) 2 mg, intravenous, NOW X1, 1 dose, On Mon01/03/17 at 1330, Routine 1712 (Given - Provider: Brittney Echevarria RN - Comment: pre med for MRI) methadone (DOLOPHINE) concentrated solution 95 mg (COMPLETED) 95 mg, oral, Once (Without Time Specified), 1 dose, Starting on Mon01/03/17 at 0443, Until Mon01/03/17 at 0512, STAT 0512 (Given - Provider: Zina Davis) methadone (DOLOPHINE) concentrated solution 95 mg (COMPLETED) 95 mg, oral, Once (Without Time Specified), 1 dose, Starting on Mon01/04/17 at 0815, Until Mon01/04/17 at 0815, STAT 0815 (Given - Provid er: Devorah Alvarado RN) nicotine (NICODERM CQ) 21 mg/24 hr patch 1 Patch 1 Patch, transdermal, DAILY, First dose on Mon01/03/17 at 1115, Until Discontinued, STAT 1119 (Patch Applied - Provider: Alana King RN)2041 (Patch Removed - Provider: Ramesh Gutierrez RN) 08 (Patch Applied - Provider: Devorah Alvarado RN)2100 (Due: Patch Removed - Provider: Devorah Alvarado RN) pregabalin (LYRICA) capsule 100 mg (CANCELED) 100 mg, oral, 3 TIMES DAILY, First dose on Mon01/03/17 at 0845, Until Discontinued, Routine 0854 (Given - Provider: Alana King RN) pregabalin (LYRICA) capsule 150 mg 150 mg, oral, 3 TIMES DAILY, First dose (after last modification) on Mon01/03/17 at 1400, Until Discontinued, Routine 1357 (Given - Provider: Alana King RN)2005 (Given - Provider: Ramesh Gutierrez RN) 0802 (Given - Provider: Devorah Alvarado RN)1348 (Given - Provider: Devorah Alvarado RN) promethazine (PHENERGAN) injection 25 mg (COMPLETED) 25 mg, intramuscular, NOW X1, 1 dose, On Mon01/03/17 at 1230, Routine 1237 (Given - Provider: Alana King RN) QUEtiapine (SEROQUEL XR) XR tablet 400 mg 400 mg, oral, AT BEDTIME, First dose on Mon01/03/17 at 2100, Until Discontinued, Routine 2028 (Given - Provider: Ramesh Gutierrez RN) PRN Medication Order 01/02/2017 01/03/2017 01/04/2017 albuterol inhaler 2 Puff 2 Puff, inhalation, EVERY 4 HOURS PRN, Starting on Mon01/03/17 at 0415, Until Mon01/04/17 at 1635, Wheezing, Shortness of Breath, Routine 0440 (Given - Provider: Roel Lugo, RT)1715 (Given - Provider: Brittney Echevarria, CHRISTINE) 0425 (Given - Provider: Ramesh Gutierrez RN) ipratropium-albuterol (COMBIVENT RESPIMAT) 20-100 mcg/actuation inhaler 1 Puff 1 Puff, inhalation, EVERY 4 HOURS PRN, Starting on Mon01/03/17 at 0415, Until Mon01/04/17 at 1635, Shortness of Breath 1355 (Given - Provid er: Devorah Alvarado RN) nicotine (NICOTROL) 10 mg inhaler 1 Inhaler 1 Inhaler, inhalation, EVERY 2 HOURS PRN, Starting on Mon01/03/17 at 1046, Until Mon01/04/17 at 1635, Smoking Cessation, Routine nicotine inhaler (delivery device) 1 Each, inhalation, PRN, Starting on Mon01/03/17 at 1046, Until Mon01/04/17 at 1635, Smoking Cessation documented in this encounter Orders Medications Ordered That Ganesh ht Not Have Been Administered Count Last Ordered Date First Ordered Date HYDROmorphone (DILAUDID) injection 2 mg 1 0 01/03/2017 methadone (DOLOPHINE) concen trated solution 95 mg 1 01/03/2017 nicotine (NICOTROL) 10 mg in haler 1 Inhaler 1 01/03/2017 nicotine inhaler (delivery device) 1 2016 ondansetron (PF) (ZOFRAN) 4 mg/2 mL injection 1 01/03/2017 Lab Orders Without Results Count Last Ordered D ate First Ordered Date POCT BLOOD GAS, G3 I-STAT (BASIC ABG VBG) 1 01/02/2017 Diet Count Last Ordered Date First Orde red Date DISCHARGE DIET 1 01/04/2017 Nursing Count Last Ordered Date First Orde red Date BATHING INSTRUCTIONS 1 01/04/2017 DRIVING INSTRUCTIONS 1 01/04/2017 Respiratory Care Count Last Ordered Date First Ordered Date AIRWAY CLEARANCE THERAPY 2 01/03/2017 IV Count Last Ordered Date First Orde red Date IV REQUEST 1 01/04/2017 Admission Count Last Ordered Date First Orde red Date STATUS: OUTPATIENT OBSERVATION SERVICES 1 0 01/03/2017 Transfer Count Last Ordered Date First Orde red Date NOTIFY PPS OF DISCHARGE COMPLETE 1 01/05/20 17 UR TIME CHANGE ONLY 1 01/04/2017 NOTIFY PPS OF ROOM CHANGE COMPLETE 1 2016 PPS NOTIFICATION OF PATIENT ARRIVAL ON UNIT 1 01/03/2017 UR PATIENT STATUS CHANGE 1 01/03/2017 Discharge Count Last Ordered Date First Orde red Date DISCHARGE PATIENT 1 01/04/2017 Legal Count Last Ordered Date First Orde red Date MISCELLANEOUS DISCHARGE INSTRUCTIONS 1 09/2016 documented in this encounter Care Teams Childbirth Educator Relationship Specialty Start Date End Date Cassie Roberts MD PCP - General 01/28/16 04/01/18 documented as of this encounter
--- OUTSIDE RECORDS SUMMARY | 2024-02-29 09:04 | XMS_ITS | Encounter Summary ---
Author Organization [facility] Address [address] [place] [address] Care Team Providers Care Electrical Linesworker Name Role Phone Travis Castaneda MD Primary Care Provider [phone] Encounter Details Date Type Department Care Team (Late st Contact Info) Description 11/13/2019 Lab Requisition [facility] Pathology & Laboratory Medicine - [facility] [address] [place] [address] Outr Resulting Lab, Provider Social History Tobacco [...] Priority Date/Time Associated Diagnosis Comments ZZCOVID-19 TEST [facility] LAB PCR Today 11/13/2019 11:49 EDT COVID-19 TESTING Routine 11/13/2019 11:4 9 EDT documented in this encounter Results * COVID-19 TEST [facility] LAB PCR (11/13/2019 11:49 EDT) Swab ENTIRE NASOPHARYNX / Unknown 11/13/2019 11:49 EDT 11/13/2019 15:47 EDT Provider Outr Resulting Lab MICROBIOLOGY - GENERAL ORDERABLES [facility] [address] [place] [id number] * COVID-19 TESTING (11/13/2019 11:49 EDT) COVID-19 rt-PCR Result Negative Negative 11/13/2019 23:27 EDT [facility] Comment: This test has not [...] history, and epidemiological information. Performed on the [employer] Fusion instrument Performing Lab [place] [facility] Lab 11/13/2019 23:27 EDT [facility] Swab 11/13/2019 11:4 9 EDT 11/13/2019 15:47 EDT Provider Outr Resulting Lab MICROBIOLOGY - GENERAL ORDERABLES [facility] [address] [place] [address] documented in this encounter Visit Diagnoses Not on filedocumented in this encounter Care Teams Electrical Linesworker Relationship Specialty Start Date End Date Travis Castaneda MD [address] [place], [place] [id number] PCP - General 04/02/18 documented as of this encounter
--- OUTSIDE RECORDS SUMMARY | 2024-02-29 09:04 | XMS_ITS | Encounter Summary ---
Author Organization [facility] Address [address] [place] [address] Care Team Providers Care Resource Room Teacher Name Role Phone Cassie Roberts MD Primary Care Provider Unavailabl e Encounter Details Date Type Department Care Team (Late st Contact Info) Description 04/12/2016 Phlebotomy Only [address] [address] [place], Outpatient Social History Tobacco Use Types Packs/Day Years [...] on filedocumented in this encounter Care Teams Resource Room Teacher Relationship Specialty Start Date End Date Cassie Roberts MD PCP - General 01/28/16 04/01/18 documented as of this encounter
--- OUTSIDE RECORDS SUMMARY | 2024-02-29 09:04 | XMS_ITS | Encounter Summary ---
Author Organization [facility] Address [address] [place] [address] Care Team Providers Care Adjunct Instructor Name Role Phone Travis Castaneda MD Primary Care Provider [phone] Encounter Details Date Type Department Care Team (Late st Contact Info) Description 10/16/2019 Lab Requisition [facility] Pathology & Laboratory Medicine - [facility] [address] [place] [address] Outr Resulting Lab, Provider Social History Tobacco [...] Priority Date/Time Associated Diagnosis Comments ZZCOVID-19 TEST [facility] LAB PCR Today 10/16/2019 11:50 EDT COVID-19 TESTING Routine 10/16/2019 11:5 0 EDT documented in this encounter Results * COVID-19 TEST [facility] LAB PCR (10/16/2019 11:50 EDT) Swab ENTIRE NASOPHARYNX / Unknown 10/16/2019 11:50 EDT 10/16/2019 21:37 EDT Provider Outr Resulting Lab MICROBIOLOGY - GENERAL ORDERABLES [facility] [address] [place] [id number] * COVID-19 TESTING (10/16/2019 11:50 EDT) COVID-19 rt-PCR Result Negative Negative 10/17/2019 1:31 EDT [facility] Comment: This test has [...] history, and epidemiological information. Performed on the [employer] Fusion instrument Performing Lab [place] [facility] Lab 10/17/2019 1:31 EDT [facility] Swab ENTIRE NASOPHARYNX / Unknown 10/16/2019 11:50 EDT 10/16/2019 21:37 EDT Provider Outr Resulting Lab MICROBIOLOGY - GENERAL ORDERABLES [facility] [address] [place] [address] documented in this encounter Visit Diagnoses Not on filedocumented in this encounter Care Teams Adjunct Instructor Relationship Specialty Start Date End Date Travis Castaneda MD [address] [place], [place] [id number] PCP - General 04/02/18 documented as of this encounter
--- OUTSIDE RECORDS SUMMARY | 2024-02-29 09:04 | XMS_ITS | Encounter Summary ---
Author Organization [facility] Address [address] [place] [address] Care Team Providers Care Dimension Specification Inspector Name Role Phone Travis Castaneda MD Primary Care Provider [phone] Reason for Visit * Reason Onset Date Comments Discuss Possible Transfer 11/19/2019 Encounter Details Date Type Department Care Team (Late st Contact Info) Description 11/19/2019 Telephone [facility] [address] [place] [phone] Elian Moreno MD Discuss Possible Transfer Social History Tobacco Use [...] Miscellaneous Notes * Telephone Encounter - Elian Moreno MD - 11/19/2019 1647 EDT Brief Triage Note: Location: [facility] CC: COPD exacerbation Brief Clinical Course: 44-year-old gentleman with suspected severe COPD on 2 L supplemental oxygen at baseline with active tobacco use and multiple recent admissions to surrounding hospitals for COPDexacerbation who presented to [facility] ED on 11/19/2019 with dyspnea. Denies associated fever, chills, or increased cough. CXR without apparent consolidation. Vitals: Hemodynamically stable, saturating 90-94% on 3 L nasal cannula Labs: WBC 11, CXR without consolidation Assessment: 44-year-old gentleman with suspected severe COPD on 2 L nasal cannula supplemental oxygen at baseline with active tobacco use and multiple recent admissions for COPD exacerbation presenting to [facility] ED with recurrent COPD exacerbation. Transfer request initiated for pulmonology subspecialty care. Mild increase in supplemental oxygen requirement with clinical findings consistent with recurrent COPD exacerbation. Agree that patient should ultimately be seen by pulmonology, however would favor outpatient referral. Inpatient management unchanged between [facility] and [facility]; thus requested that patient be admitted to [facility] for further management. Triage: Declined in transfer If accepted in transfer please contact the admitting hospitalist and [phone] resident pager. Elian Moreno MD Some of this note was transcribed with [employer] dictating software. While it was proofread, it may still contain unnoticed grammatical or word errors due to incorrect transcribing. documented in this encounter Plan of Treatment Not on file documented as of this encounter Visit Diagnoses Not on filedocumented in this encounter Care Teams Dimension Specification Inspector Relationship Specialty Start Date End Date Travis Castaneda MD [address] [place] [address] PCP - General 04/02/18 documented as of this encounter
--- OUTSIDE RECORDS SUMMARY | 2024-02-29 09:05 | XMS_ITS | Encounter Summary ---
Author Organization [facility] Address [address] [place] [address] Care Team Providers Care Hydraulic Assembler Name Role Phone Giovanni Roberts PA-C Primary Care Provider [phone] Reason for Visit * Reason Onset Date Comments Medications Refill 03/26/2013 Encounter Details Date Type Department Care Team (Late st Contact Info) Description 03/26/2013 Refill [facility] Orthopedic Trauma - [address] [address] Elías Patterson MD [address] [place] [address] Medications Refill Social History Tobacco Use Types Packs/Day Years Used Date Smoking Tobacco: Unknown Alcohol Use Standard Drinks/Week Comments Not Asked 0 (1 standard drink = 0.6 oz pur e alcohol) Sex and Gender Information Value Date Recorded Sex Assigned at Not on file Gender Identity Male 04/10/2020 10:26 EST Sexual Orientation Not on file documented as of this encounter Ordered Prescriptions Prescription Sig Dispensed Refills Start Date End Da te oxyCODONE 10 mg immediate release tablet Take 1 Tab by mouth every 6 hours as needed for Pain. 40 Tab 0 04/03/2013 05/02/2013 oxyCODONE 10 mg immediate release tablet Take 1 Tab by mouth every 6 hours as needed for Pain. 40 Tab 0 03/26/2013 04/03/2013 documented in this encounter Miscellaneous Notes * Telephone Encounter - Aditi Blackburn - 04/03/2013 1001 EST Edd called today stating he still has not received Rx for oxycodone mailed last week to his PO box.Rx was mailed on 03/27/13. Discussed with Dr. Patterson who agreed to mail out a new Rx for Edd withthe understanding that if the other one does finally arrive that he mail that one back to us. Edd verbalized understanding and new Rx pended for signature to be mailed today. Aditi Blackburn * Telephone Encounter - Adiit Blackburn - 03/26/2013 9326 EST Edd calls for a refill of oxycodone. 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 Discussed with Dr. Schilling the phone who okayed refill. Dr. Cerna is not in the office to sign Rx so it will be pended to Dr. Patterson for signature and then mailed to the patient. Aditi Blackburn documented in this encounter Plan of Treatment Not on file documented as of this encounter Visit Diagnoses Not on filedocumented in this encounter Discontinued Medications Medication Sig Discontinue Reason Start Date End Da te oxyCODONE 10 mg immediate release tablet Take 1 Tab by mouth every 6 hours as needed for Pain. Reorder 02/28/2013 03/26/2013 oxyCODONE 10 mg immediate release tablet Take 1 Tab by mouth every 6 hours as needed for Pain. Reorder 03/26/2013 04/03/2013 documented as of this encounter Care Teams Hydraulic Assembler Relationship Specialty Start Date End Date Giovanni Roberts PA-C [address] [place] [address] PCP - General 06/21/12 12/27/15 documented as of this encounter
--- OUTSIDE RECORDS SUMMARY | 2024-02-29 09:05 | XMS_ITS | Encounter Summary ---
Author Organization [facility] Address [address] [place] [address] Care Team Providers Care Dry Kiln Loader Name Role Phone Giovanni Roberts PA-C Primary Care Provider [phone] Reason for Visit * Reason Onset Date Comments Medications Refill 12/26/2012 Encounter Details Date Type Department Care Team (Late st Contact Info) Description 12/26/2012 Refill [facility] Orthopedic Trauma - [address] [address] Vivek Cerna MD [address] [place] [address] Medications Refill Social History Tobacco [...] as needed for Pain. 40 Tab 0 12/26/2012 01/24/2013 documented in this encounter Miscellaneous Notes * Telephone Encounter - Aditi Blackburn - 12/26/2012 1025 EDT Edd calls for refill of oxycodone 10mg for his chronic leg and hip pain. Discussed with Dr. Cerna who okayed and Rx pended for signature. Rx will be mailed to patient's home address. Aditi Blackburn documented in this encounter Plan of Treatment Not on file documented as of this encounter Visit Diagnoses Not on filedocumented in this encounter Discontinued Medications Medication Sig Discontinue Reason Start Date End Da te oxyCODONE 10 mg immediate release tablet Take 1 Tab by mouth every 6 hours as needed for Pain. Reorder 10/31/2012 12/26/2012 documented as of this encounter Care Teams Dry Kiln Loader Relationship Specialty Start Date End Date Giovanni Roberts PA-C [address] [place] [address] PCP - General 06/21/12 12/27/15 documented as of this encounter
--- OUTSIDE RECORDS SUMMARY | 2024-02-29 09:05 | XMS_ITS | Encounter Summary ---
Author Organization [facility] Address [address] [place] [address] Care Team Providers Care Corrections Unit Supervisor Name Role Phone Giovanni Roberts PA-C Primary Care Provider [phone] Reason for Visit * Reason Onset Date Comments Other 09/10/2012 Encounter Details Date Type Department Care Team ([facility] Contact Info) Description 09/10/2012 Telephone [facility] Orthopedic Trauma - [address] [address] Vivek Cerna MD [address] [place] [address] Other Social History Tobacco Use Types Packs/Day Years [...] * Telephone Encounter - Aditi Blackburn - 09/10/2012 1542 EDT Called to make Garret's appointment with the Pain Service. Negin will contact patient directly to schedule. Aditi Blackburn documented in this encounter Plan of Treatment Not on file documented as of this encounter Visit Diagnoses Not on filedocumented in this encounter Care Teams Corrections Unit Supervisor Relationship Specialty Start Date End Date Giovanni Roberts PA-C [address] [place] [phone] PCP - General 06/21/12 12/27/15 documented as of this encounter
--- OUTSIDE RECORDS SUMMARY | 2024-02-29 09:05 | XMS_ITS | Encounter Summary ---
Author Organization [facility] Address [address] [place] [address] Care Team Providers Care Drum Loader And Unloader Name Role Phone Giovanni Roberts PA-C Primary Care Provider [phone] Reason for Visit * Reason Onset Date Comments Medications Refill 05/30/2013 Encounter Details Date Type Department Care Team (Late st Contact Info) Description 05/30/[address] [facility] Orthopedic Trauma - [address] [address] Vivek Cerna MD [address] [place] [address] Medications Refill Social History Tobacco [...] as needed for Pain. 40 Tab 0 05/30/2013 06/27/2013 documented in this encounter Miscellaneous Notes * Telephone Encounter - Aditi Blackburn - 05/30/2013 0913 EST Edd calls requesting refill of oxycodone 10mg for chronic pain from femur fx. Discussed with Dr. Cerna who okayed and Rx pended for signature. Rx will be mailed to patient's PO box. Aditi Blackburn documented in this encounter Plan of Treatment Not on file documented as of this encounter Visit Diagnoses Not on filedocumented in this encounter Discontinued Medications Medication Sig Discontinue Reason Start Date End Da te oxyCODONE 10 mg immediate release tablet Take 1 Tab by mouth every 6 hours as needed for Pain. Reorder 05/02/2013 05/30/2013 documented as of this encounter Care Teams Drum Loader And Unloader Relationship Specialty Start Date End Date Giovanni Roberts PA-C [address] [place] [phone] PCP - General 06/21/12 12/27/15 documented as of this encounter
--- OUTSIDE RECORDS SUMMARY | 2024-02-29 09:05 | XMS_ITS | Encounter Summary ---
Author Organization [facility] Address [address] [place] [address] Care Team Providers Care Waxer Operator Name Role Phone Giovanni Roberts PA-C Primary Care Provider [phone] Reason for Referral * Consult (Routine/Next Available) - Closed Specialty Diagnoses / Procedures Referred By Contac t Referred To Contact Pain Medicine Diagnoses Closed fracture of shaft of tibia Hip pain Amputation of leg ([facility]) Vivek Cerna MD [address] [place] [phone] [facility] [address] [place] [address] Referral ID Status Reason Start Date Expiration Date V isits Requested Visits Authorized [id number] Closed Specialty Services Required 08/22/2012 1 1 Question Answer Reason for Request: Right leg and hip pain/Left amputation/chronic pain/narcotic use Encounter Details Date Type Department Care Team (Late st Contact Info) Description 08/17/2012 Orders Only [facility] Orthopedic Trauma - [address] [address] Vivek Cerna MD [address] [place] [phone] Closed fracture of shaft of tibia (Primary Dx); Hip pain; Amputation of leg (CMS-HCC) Social History Tobacco Use Types Packs/Day Years Used Date Smoking Tobacco: Unknown Alcohol Use Standard Drinks/Week Comments Not Asked 0 (1 standard drink = 0.6 oz pur e alcohol) Sex and Gender Information Value Date Recorded Sex Assigned at Not on file Gender Identity Male 04/10/2020 10:26 EST Sexual Orientation Not on file documented as of this encounter Plan of Treatment Scheduled Referrals Name Type Priority Associated Diagnoses Orde r Schedule AMB CONSULT PAIN CLINIC Outpatient Referral Routine Closed fracture of shaft of tibia Hip pain Amputation of leg ([facility]) 08/17/2012 documented as of this encounter Visit Diagnoses Diagnosis Closed fracture of shaft of tibia- Primary Hip pain Pain in joint, pelvic region and thigh Amputation of leg ([facility]) Lower limb amputation, unspecified level documented in this encounter Care Teams Waxer Operator Relationship Specialty Start Date End Date Giovanni Roberts PA-C [address] [place] [phone] PCP - General 06/21/12 12/27/15 documented as of this encounter
--- OUTSIDE RECORDS SUMMARY | 2024-02-29 09:05 | XMS_ITS | Encounter Summary ---
Author Organization [facility] Address [address] [place] [address] Care Team Providers Care Art Consultant Name Role Phone Cassie Roberts MD Primary Care Provider Unavailabl e Reason for Visit * Reason Comments Follow-up Right leg pain Encounter Details Date Type Department Care Team (Late st Contact Info) Description 01/28/2016 9:00 EDT Office Visit [facility] Orthopedic Trauma - [address] [address] Vivek Cerna MD [address] [place] [phone] Pain of right lower extremity (Primary Dx) Discharge Disposition: Auto Discharge Social [...] - Inhaled Oxygen Concentration - - Weight 96.2 kg (212 lb 1.3 oz) 01/28/2016 0910 E DT Height 180 cm (5' 10.87) 01/28/2016 09 EDT Body Mass Index 29.69 01/28/2016 0910 EDT documented in this encounter Functional Status [...] as of this encounter Discharge Diagnoses Diagnosis M79.604 Pain in right leg-M79.604[ICD-10-CM] documented in this encounter Ordered Prescriptions Prescription Sig Dispensed Refills Start Date End Da te oxyCODONE 10 mg immediate release tablet Take 1 Tab by mouth every 6 hours as needed for Pain. Earliest Fill Date: 01/28/16 Daily Max: 40 mg 60 Tab 01/28/2016 02/17/2016 documented in this encounter Discharge Disposition Disposition Code Departure Means Destination Auto Discharge documented in this encounter Progress Notes * Vivek Cerna MD - 01/28/2016 0900 EDT This is a 40-year-old gentleman who is status post severe multiple trauma, leaving him with bilateral lower extremity pain and several other long-term problems. He has a below-knee amputation on the right. SUBJECTIVE: The patient was here in November complaining of pain in his right lower extremity. 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 This is very active, it is uneven ground, etc., and it stirs up all of his musculoskeletal problems. He was given a prescription for 10 mg oxycodone back in November, 60 of them, and he has basically gone through them. He states he takes 3 a day and he has to, otherwise, he cannot do this job, which is his mainstay in terms of any actual income. He now returns, even though Itold him that was kind of it for the year he is now back in. He is out of the pain medicine and he is in a lot of pain. The pain is localized to the area of the fibula in his BK stump. His prosthesisis removed. The skin is not broken down. There is no blistering, but it is exquisitely tender rightover the end of the fibula. He states the pain goes up the back of his thigh and he occasionally, if he steps on his prosthesis just the wrong way, which is not uncommon on uneven ground, he gets a la ncinating pain up the back of his leg. He does have a Tinel's sign associated with what is probablythe peroneal nerve posteriorly. His prosthesis is in a bit of disrepair. It is 3 years old and apparently he is in the process of getting a new one right now. ASSESSMENT: The patient does have a bonafide pain issue. It may be solved. I think the true solution is 2 things, the end of a tree pruning season and hopefully a new prosthesis. I also explained to him that there is an amputation/prosthetic clinic now out at the [facility] run by the title insurance sales representative, which he should probably visit one of these days. I also explained to him that I am in the early process of retiring and he needs to find some alternative in the future to get his pain medicine. We gave him 60 today and the plan is give him 60 more and he needs to make those last. He understands that. He will return here on a p.r.n. basis. If he needs a referral to the amputee clinic he will callAditi Santiago. documented in this encounter Plan of Treatment Not on file documented as of this encounter Visit Diagnoses Diagnosis Pain of right lower extremity- Primary documented in this encounter Discontinued Medications Medication Sig Discontinue Reason Start Date End Da te oxyCODONE 10 mg immediate release tablet Take 1 Tab by mouth every 6 hours as needed for Pain. Earliest Fill Date: 12/28/15 Daily Max: 40 mg Reorder 12/28/2015 01/28/2016 documented as of this encounter Care Teams Art Consultant Relationship Specialty Start Date End Date Cassie Roberts MD PCP - General 01/28/16 04/01/18 documented as of this encounter
--- OUTSIDE RECORDS SUMMARY | 2024-02-29 09:05 | XMS_ITS | Encounter Summary ---
Author Organization [facility] Address [address] [place] [address] Care Team Providers Care Credit Products Officer Name Role Phone Giovanni Roberts PA-C Primary Care Provider [phone] Reason for Visit * Reason Onset Date Comments Medications Refill 09/20/2012 Encounter Details Date Type Department Care Team (Late st Contact Info) Description 09/20/2012 Refill [facility] Orthopedic Trauma - [address] [address] Vivek Cerna MD [address] [place] [address] Medications Refill Social History Tobacco [...] as needed for Pain. 40 Tab 0 09/20/2012 10/31/2012 documented in this encounter Miscellaneous Notes * Telephone Encounter - Aditi Blackburn - 09/20/2012 0920 EDT Edd calls requesting a refill of his oxycodone for his hip and leg pain. He is waiting on a pain service consult. Discussed with Dr. Cerna who okayed Rx. Pended for signature and will be mailedto patient. Aditi Blackburn documented in this encounter Plan of Treatment Not on file documented as of this encounter Visit Diagnoses Not on filedocumented in this encounter Discontinued Medications Medication Sig Discontinue Reason Start Date End Da te oxyCODONE 10 mg immediate release tablet Take 1 Tab by mouth every 6 hours as needed for Pain. Reorder 08/16/2012 09/20/2012 documented as of this encounter Care Teams Credit Products Officer Relationship Specialty Start Date End Date Giovanni Roberts PA-C [address] [place] [phone] PCP - General 06/21/12 12/27/15 documented as of this encounter
--- OUTSIDE RECORDS SUMMARY | 2024-02-29 09:05 | XMS_ITS | Encounter Summary ---
Author Organization [facility] Address [address] [place] [address] Care Team Providers Care Manager Behavior Name Role Phone Giovanni Roberts PA-C Primary Care Provider [phone] Reason for Visit * Reason Onset Date Comments Medications Refill 07/18/2013 Encounter Details Date Type Department Care Team (Late st Contact Info) Description 07/18/2013 Refill [facility] Orthopedic Trauma - [address] [address] Vivek Cerna MD [address] [place] [address] Medications Refill Social History Tobacco [...] as needed for Pain. Earliest Fill Date: 07/18/13 40 Tab 0 07/18/2013 09/02/2013 documented in this encounter Miscellaneous Notes * Telephone Encounter - Aditi Blackburn Rohit - 07/18/2013 0845 EDT Edd calls requesting refill of oxycodone 10mg [...] as needed for Pain. Earliest Fill Date: 06/27/13 Reorder 06/27/2013 07/18/2013 documented as of this encounter Care Teams Manager Behavior Relationship Specialty Start Date End Date Giovanni Roberts PA-C [address] [place] [phone] PCP - General 06/21/12 12/27/15 documented as of this encounter
--- OUTSIDE RECORDS SUMMARY | 2024-02-29 09:05 | XMS_ITS | Encounter Summary ---
Author Organization [facility] Address [address] [place] [address] Care Team Providers Care Paste Worker Name Role Phone Giovanni Roberts PA-C Primary Care Provider [phone] Reason for Visit * Reason Onset Date Comments Medications Refill 05/02/2013 Encounter Details Date Type Department Care Team (Late st Contact Info) Description 05/02/2013 Refill [facility] [place] [address] Rubina Diez LPN [address] [place] [address] Medications Refill Social History Tobacco Use Types [...] as needed for Pain. 40 Tab 0 05/02/2013 05/30/2013 documented in this encounter Miscellaneous Notes * Telephone Encounter - Rubina Diez LPN - 05/02/2013 1114 EST When Edd asked for pain med last week, I asked Dr. Cerna to give him more Percocet, which he did. As it turns out, Edd wanted the oxycodone 10 mg tablets. I am now pending a request for that toDr. Cerna & will mail it to Edd if Dr. Cerna agrees. Rubina Diez LPN 11:16 documented in this encounter Plan of Treatment Not on file documented as of this encounter Visit Diagnoses Not on filedocumented in this encounter Discontinued Medications Medication Sig Discontinue Reason Start Date End Da te oxyCODONE 10 mg immediate release tablet Take 1 Tab by mouth every 6 hours as needed for Pain. Reorder 04/03/2013 05/02/2013 documented as of this encounter Care Teams Paste Worker Relationship Specialty Start Date End Date Giovanni Roberts PA-C [address] [place] [phone] PCP - General 06/21/12 12/27/15 documented as of this encounter
--- OUTSIDE RECORDS SUMMARY | 2024-02-29 09:05 | XMS_ITS | Encounter Summary ---
Author Organization [facility] Address [address] [place] [address] Care Team Providers Care Pulp Mixer Name Role Phone Cassie Roberts MD Primary Care Provider Unavailabl e Reason for Visit * Reason Onset Date Comments Medications Refill 02/17/2016 Encounter Details Date Type Department Care Team (Late st Contact Info) Description 02/17/2016 Refill [facility] - [address] [place], [place] [phone] Luz Beard RN Medications Refill Social History Tobacco Use Types [...] No 01/28/2016 documented as of this encounter Ordered Prescriptions Prescription Sig Dispensed Refills Start Date End Da te oxyCODONE 10 mg immediate release tablet Take 1 Tab by mouth every 6 hours as needed for Pain. Daily Max: 40 mg 60 Tab 02/17/2016 03/16/2016 documented in this encounter Miscellaneous Notes * Telephone Encounter - Luz Beard RN - 02/17/2016 1004 EDT ASKING FOR REFILL 0XYCODONE 10 MG. RX AUTHORIZED BY DR SIMS. WILL MAIL TO HIS HOME. ADVISED PER DR SIMS, THIS IS HIS LAST REFILL. LUZ BEARD, RN documented in this encounter Plan of Treatment Not on file documented as of this encounter Visit Diagnoses Not on filedocumented in this encounter Discontinued Medications Medication Sig Discontinue Reason Start Date End Da te oxyCODONE 10 mg immediate release tablet Take 1 Tab by mouth every 6 hours as needed for Pain. Earliest Fill Date: 01/28/16 Daily Max: 40 mg Reorder 01/28/2016 02/17/2016 documented as of this encounter Care Teams Pulp Mixer Relationship Specialty Start Date End Date Cassie Roberts MD PCP - General 01/28/16 04/01/18 documented as of this encounter
--- OUTSIDE RECORDS SUMMARY | 2024-02-29 09:05 | XMS_ITS | Encounter Summary ---
Author Organization [facility] Address [address] [place] [address] Care Team Providers Care Accounts Receivable Representative Name Role Phone Giovanni Roberts PA-C Primary Care Provider [phone] Reason for Visit * Reason Onset Date Comments Medications Refill 02/28/2013 Encounter Details Date Type Department Care Team (Late st Contact Info) Description 02/28/2013 Refill [facility] Orthopedic Trauma - [address] [address] Vivek Cerna MD [address] [place] [address] Medications Refill Social History Tobacco [...] as needed for Pain. 40 Tab 0 02/28/2013 03/26/2013 documented in this encounter Miscellaneous Notes * Telephone Encounter - Aditi Blackburn - 02/28/2013 0969 EDT Edd calls for refill of oxycodone [...] 6 hours as needed for Pain. Reorder 01/24/2013 02/28/2013 documented as of this encounter Care Teams Accounts Receivable Representative Relationship Specialty Start Date End Date Giovanni Roberts PA-C [address] [place] [address] PCP - General 06/21/12 12/27/15 documented as of this encounter
--- OUTSIDE RECORDS SUMMARY | 2024-02-29 09:05 | XMS_ITS | Encounter Summary ---
Author Organization [facility] Address [address] [place] [address] Care Team Providers Care Kiln Firer Helper Name Role Phone Giovanni Roberts PA-C Primary Care Provider [phone] Reason for Visit * Reason Onset Date Comments Medications Refill 10/31/2012 Encounter Details Date Type Department Care Team (Late st Contact Info) Description 10/31/2012 Refill [facility] Orthopedic Trauma - [address] [address] Vivek Cerna MD [address] [place] [address] Medications Refill Social History Tobacco [...] as needed for Pain. 40 Tab 0 10/31/2012 12/26/2012 documented in this encounter Miscellaneous Notes * Telephone Encounter - Aditi Blackburn - 10/31/2012 1137 EDT Edd called requesting refill of pain medicine for his chronic leg/hip pain. Discussed with Dr. Cerna who okayed and Rx pended for signature. Will be mailed to patient's home address. Aditi Blackburn documented in this encounter Plan of Treatment Not on file documented as of this encounter Visit Diagnoses Not on filedocumented in this encounter Discontinued Medications Medication Sig Discontinue Reason Start Date End Da te oxyCODONE 10 mg immediate release tablet Take 1 Tab by mouth every 6 hours as needed for Pain. Reorder 09/20/2012 10/31/2012 documented as of this encounter Care Teams Kiln Firer Helper Relationship Specialty Start Date End Date Giovanni Roberts PA-C [address] [place] [phone] PCP - General 06/21/12 12/27/15 documented as of this encounter
--- OUTSIDE RECORDS SUMMARY | 2024-02-29 09:05 | XMS_ITS | Encounter Summary ---
Author Organization [facility] Address [address] [place] [address] Care Team Providers Care Quail Farmer Name Role Phone Giovanni Roberts PA-C Primary Care Provider [phone] Reason for Visit * Reason Comments New Patient Visit hep c * Consult (Routine) - Closed Specialty Diagnoses / Procedures Referred By Contact Referred To Contact Gastroenterology and Hepatology Diagnoses Chronic hepatitis C without mention of hepatic coma Cassie Roberts MD [address] [place] [address] Gunnar Mcmullen MD PhD [address] [place] [phone] Referral ID Status Reason Start Date Expiration Date Visits Re quested Visits Authorized [id number] Closed 1 1 Encounter Details Date Type Department Care Team (Late st Contact Info) Description 06/02/2014 14:00 EST Office Visit [facility] Gastroenterology - [address] [phone] Gunnar Mcmullen MD PhD [address] [place] [phone] Chronic hepatitis C without mention of hepatic coma (Primary Dx) Discharge Disposition: Auto Discharge Social [...] Sign Reading Time Taken Comments Blood Pressure 140/82 06/02/2014 1431 EST Pulse 64 06/02/2014 1431 EST Temperature - - Respiratory Rate - - Oxygen Saturation - - Inhaled Oxygen Concentration - - Weight 96.2 kg (212 lb) 06/02/2014 1431 EST Height 180 cm (5' 10.87) 06/02/2014 1431 EST Body Mass Index 29.68 06/02/2014 1431 EST documented in this encounter Discharge Diagnoses Diagnosis 070.54 VIR HEP NEC W/O COMA W HEP C CHRON[ICD-9-CM] documented in this encounter Discharge Disposition Disposition Code Departure Means Destination Auto Discharge documented in this encounter Progress Notes * Gunnar Mcmullen MD - 06/02/2014 1513 EST This office note has been dictated. documented in this encounter Consult Notes * Gunnar Mcmullen MD - 06/02/[address] [facility] GASTROENTEROLOGY AND HEPATOLOGY CONSULTATION - 06/02/2014 Cassie Roberts MD [facility] [address] [place] [address] Roberts: Thank you for asking me to see your patient Garret Barros in consultation today. As you know, he is [id number] man with chronic hepatitis C. He was diagnosed with hepatitis C in 1996, as part of screening for high-risk behavior. There had been no previous signs or symptoms from the standpoint of liver disease including jaundice, fluid retention, or gastrointestinal bleeding. [facility] the diagnosis of hepatitis C, and serum hepatitis C viral RNA was detectable. There is no information concerning the viral genotype. The patient believes that he has been vaccinated against hepatitis A and B, but this is not documented. He is very interested in undergoing antiviral therapy. 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 This has left him with chronic pain and narcotic dependence. In 2012, he was hospitalized with polydrug overdose from multiple intravenous drugs, which resulted in the need for mechanical ventilation. Other current active health issues include chronic obstructive pulmonary disease and hypertension. The patient experiences significant fatigue, malaise, depressed mood, and there has been no recent weight loss. A 12-point review of systems was taken, which was otherwise negative. Family history is negative for liver disease. 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 There is a history of injection drug use that began in 1996 and ended in 2012. There has been no illegal drug use since. There is a longstanding history of ethanol dependency, with the last regular usage in the summer of 2013. There has been one brief relapse of alcohol use in late March 2014. There has been no alcohol use since that time. Current medications include lisinopril, Combivent inhaler, and albuterol inhaler. On physical examination, the patient was found to be an overweight white man, weight 212 pounds (BMI 29.68), blood pressure 140/82, pulse 64. The skin revealed no spider angiomata. The sclerae were clear. The oropharynx was clear. The neck revealed no lymphadenopathy. The lungs revealed bibasilar crackles and a prolonged expiratory phase. Cardiac examination revealed a regular rhythm. The abdomenrevealed no obvious ascites. It was soft, nontender, and no masses were appreciated. I could not palpate a liver or spleen. Laboratory data obtained today show white blood cell count 9.69, hematocrit 46.8, platelets 238, INR 1.0, bilirubin less than 0.5, alkaline phosphatase 49, ALT 44, AST 36, albumin 4.6, creatinine 0.86. In summary, Mr Barros has chronic hepatitis C, the duration of which is approximately 18 years based upon the history. Although there is a high likelihood that significant hepatic fibrosis is present, there is no clinical or biochemical evidence of cirrhosis. To confirm this, I will arrange for a scre ening right upper quadrant abdominal ultrasound. The best management strategy for hepatitis C at this time is avoidance of alcohol intake, a known accelerator of hepatic fibrosis. I have told this tothe patient directly, and I have provided him with a brochure from the [employer], which includes its website (www.liverfoundation.org), for additional information. Successful antiviral treatment will prevent progression of hepatic fibrosis, provided that the patient remains abstinent from alcohol. For these reasons, I would not recommend initiating antiviral therapy until he has been on an alcohol-free diet for at least 6 months (earliest in September 2014). Current antiviral therapy is directed against viral genotype, and I will arrange for determination of this. I will be in touch with you and the patient when the results of all tests are available. My only other recommendations are that you continue to monitor the patient at least yearly with a complete blood count, comprehensive metabolic panel, and prothrombin time, and that you vaccinate himagainst hepatitis A and B unless he has serological evidence of immunity. Thank you once again for allowing me to see this patient in consultation with you. Should you have any further questions regarding this evaluation, please feel free to contact me at any time. Sincerely, Gunnar Mcmullen MD,PhD 03 13 PM - Gunnar Mcmullen MD,PhD cn Dictation ID: [id number] cc: Cassie Roberts MD, [facility] [address], [place] [address] documented in this encounter Plan of Treatment Not on file documented as of this encounter Results * HCV RNA QUANT WITH REFLEX TO GENOTYPE (06/02/2014 15:10 EST) HCV RNA Detect Quant 826,951 IU/mL 06/05/2014 14:56 EST [facility] Comment: Reference Range: ??Undetected The quantification range of this assay is 15 IU/mL to 100,000,000 IU/mL. Testing was performed by the [employer] TaqMan HCV v2.0 ([employer] Blood specimen (specimen) BLOOD SPECIMEN / Unknown 06/02/2014 15:10 EST 06/02/2014 15:24 EST Gunnar Mcmullen MD PhD CHEMISTRY & BLO OD GAS ORDERABLES [facility] [address] [place] [id number] * HEPATITIS B SURFACE ANTIBODY (06/02/2014 15:10 EST) Hepatitis B Surface Ab Positive 06/03/2014 10:49 EST [facility] Comment: Reference Range: Unvaccinated: ??Negative Vaccinated: ??Positive HBs Antibody, Quant 612.0 mIU/mL 06/03/2014 10:49 EST [facility] Comment: Patient is presumed to be immune to infection with HBV. Reference Range: Positive: >=12.0 mIU/mL Indeterminate: >=5.0 to <12.0 mIU/mL Negative: <5.0 mIU/mL Blood specimen (specimen) BLOOD SPECIMEN / Unknown 06/02/2014 15:10 EST 06/02/2014 15:24 EST Gunnar Mcmullen MD PhD CHEMISTRY & BLO OD GAS ORDERABLES Performing Organization Address [facility] de Phone Number [facility] [address] [place] [address] * HEPATITIS A TOTAL ANTIBODY (06/02/2014 15:10 EST) Hep A Antibody Positive 06/03/2014 10:49 EST [facility] Comment: Antibody to Hepatitis A detected. Reference Range: ??Negative Blood specimen (specimen) BLOOD SPECIMEN / Unknown 06/02/2014 15:10 EST 06/02/2014 15:24 EST Gunnar Mcmullen MD PhD CHEMISTRY & BLO OD GAS ORDERABLES Performing Organization Address [facility] Co de Phone Number [facility] [address] [place] [address] * HEPATITIS B SURFACE ANTIGEN (06/02/2014 15:10 EST) Hepatitis B Surface Ag Negative 06/03/2014 10:49 EST [facility] Comment:Reference Range: Neg ative Blood specimen (specimen) BLOOD SPECIMEN / Unknown 06/02/2014 15:10 EST 06/02/2014 15:24 EST Gunnar Mcmullen MD PhD CHEMISTRY & BLO OD GAS ORDERABLES Performing Organization Address [facility] Co de Phone Number [facility] [address] [place] [address] * PROTIME (06/02/2014 15:10 EST) Pro Time 10.6 9.5 - 12.3 secs 06/02/2014 16:08 [facility] I.N.R. 1.0 0.9 - 1.1 Ratio 06/02/2014 16:08 [facility] Comment: Moderate Intensity Coumadin INR = 2.0-3.0 Adjustments in anticoagulant therapy dose should be based upon the INR and NOT the Pro Time. Blood specimen (specimen) BLOOD SPECIMEN / Unknown 06/02/2014 15:10 EST 06/02/2014 15:24 EST Gunnar Mcmullen MD PhD HEMATOLOGY & PF 4 ORDERABLES Performing Organization Address [facility] Co de Phone Number [facility] [address] [place] [address] * (ABNORMAL) HEMAGRAM (06/02/2014 15:10 EST) WBC 9.69 4.0 - 10.4 K/cmm 06/02/2014 16:02 [facility] RBC 4.84 4.36 - 5.78 M/cmm 06/02/2014 16:02 [facility] Hemoglobin 15.7 13.8 - 17.3 gm/dl 06/02/2014 16:02 [facility] HCT 46.8 39.5 - 50.2 % 06/02/2014 16:02 [facility] MCV 97(H) 81 - 95 fl 06/02/2014 16:02 [facility] MCH 32.5 27.6 - 33.0 pg 06/02/2014 16:02 [facility] MCHC 33.6 32.8 - 36.4 gm/dl 06/02/2014 16:02 [facility] RDW-CV 13.0 11.8 - 14.1 % 06/02/2014 16:02 [facility] RDW-SD 45.1 36.5 - 45.9 fl 06/02/2014 16:02 [facility] PLT 238 141 - 320 K/cmm 06/02/2014 16:02 [facility] MPV 8.7 7.5 - 11.2 fl 06/02/2014 16:02 [facility] Blood specimen (specimen) BLOOD SPECIMEN / Unknown 06/02/2014 15:10 EST 06/02/2014 15:24 EST Gunnar Mcmullen MD PhD HEMATOLOGY & PF 4 ORDERABLES Performing Organization Address City/State/[facility] Co de Phone Number [facility] [address] [place] [address] * (ABNORMAL) COMPREHENSIVE METABOLIC PANEL (CMP) (06/02/2014 15:10 EST) Potassium 4.6 3.5 - 5.0 mEq/L 06/02/2014 16:33 [facility] Sodium 140 136 - 145 mEq/L 06/02/2014 16:33 [facility] Chloride 99 96 - 110 mEq/L 06/02/2014 16:33 [facility] CO2 30 24 - 32 mEq/L 06/02/2014 16:33 [facility] Total Alkaline Phosphatase 49 38 - 126 U/L 06/02/2014 16:33 [facility] Bilirubin, Total <0.5 <1.4 mg/dl 06/02/19 15 16:33 [facility] AST 36 15 - 46 U/L 06/02/2014 16:33 [facility] ALT 44 21 - 72 U/L 06/02/2014 16:33 [facility] Albumin 4.6 3.4 - 4.9 g/dl 06/02/2014 16:33 [facility] Total Protein 7.3 6.5 - 8.3 g/dl 06/02/2014 16:33 [facility] Creatinine 0.86 0.66 - 1.25 mg/dl 06/02/2014 16:33 [facility] GFR, Calculated >60 >60 ml/min/1.7 3m2 06/02/2014 16:33 [facility] BUN 17 10 - 26 mg/dl 06/02/2014 16:33 [facility] Calcium 9.4 8.5 - 10.5 mg/dl 06/02/2014 16:33 [facility] Calculated Calcium 9.2 8.5 - 10.5 mg/dl 06/02/2014 16:33 [facility] Glucose, Serum 69(L) 70 - 100 mg/dl 06/02/2014 16:33 [facility] Fasting? No 06/02/2014 15:11 [facility] Blood specimen (specimen) BLOOD SPECIMEN / Unknown 06/02/2014 15:10 EST 06/02/2014 15:24 EST Gunnar Mcmullen MD PhD CHEMISTRY & BLO OD GAS ORDERABLES [facility] [address] [place] [address] documented in this encounter Visit Diagnoses Diagnosis Chronic hepatitis C without mention of hepatic coma- Primary documented in this encounter Care Teams Quail Farmer Relationship Specialty Start Date End Date Giovanni Roberts PA-C [address] [place] [phone] PCP - General 06/21/12 12/27/15 documented as of this encounter
--- OUTSIDE RECORDS SUMMARY | 2024-02-29 09:05 | XMS_ITS | Encounter Summary ---
Author Organization [facility] Address [address] [place] [address] Care Team Providers Care Search Director Name Role Phone Giovanni Roberts PA-C Primary Care Provider [phone] Reason for Visit * Reason Onset Date Comments Medications Refill 01/24/2013 Encounter Details Date Type Department Care Team (Late st Contact Info) Description 01/24/2013 Refill [facility] Orthopedic Trauma - [address] [address] Vivek Cerna MD [address] [place] [address] Medications Refill Social History Tobacco [...] as needed for Pain. 40 Tab 0 01/24/2013 02/28/2013 documented in this encounter Miscellaneous Notes * Telephone Encounter - Aditi Blackburn - 01/24/2013 0742 EDT Edd called 01/21 to request refill of his oxycodone. I let him know that Dr. Cerna would not be in the office until 01/24. Discussed with Dr. Cerna who okayed and Rx pended for signature on01/24. Aditi Blackburn 01/24/2013 7:43 documented in this encounter Plan of Treatment Not on file documented as of this encounter Visit Diagnoses Not on filedocumented in this encounter Discontinued Medications Medication Sig Discontinue Reason Start Date End Da te oxyCODONE 10 mg immediate release tablet Take 1 Tab by mouth every 6 hours as needed for Pain. Reorder 12/26/2012 01/24/2013 documented as of this encounter Care Teams Search Director Relationship Specialty Start Date End Date Giovanni Roberts PA-C [address] [place] [phone] PCP - General 06/21/12 12/27/15 documented as of this encounter
--- OUTSIDE RECORDS SUMMARY | 2024-02-29 09:05 | XMS_ITS | Encounter Summary ---
Author Organization [facility] Address [address] [place] [address] Care Team Providers Care Electric Range Assembler Name Role Phone Cassie Roberts MD Primary Care Provider Unavailabl e Reason for Visit * Reason Onset Date Comments Medications Refill 03/16/2016 Encounter Details Date Type Department Care Team (Late st Contact Info) Description 03/16/2016 Refill [facility] Orthopedic Trauma - [address] [address] Vivek Cerna MD [address] [place] [address] Medications Refill Social History Tobacco [...] Max: 40 mg 60 Tab 03/16/2016 04/08/2020 documented in this encounter Miscellaneous Notes * Telephone Encounter - Aditi Blackburn - 03/16/2016 0827 EST Requested Prescriptions Pending Prescriptions Disp Refills ??? oxyCODONE 10 mg immediate release tablet 60 Tab 0 Sig: Take 1 Tab by mouth every 6 hours as needed for Pain. Earliest Fill Date: 03/16/16 Daily Max: 40 mg Edd calls requesting a refill of his oxycodone for continued chronic pain following a femur fracture many years ago and also a BKA. Discussed with Dr. Cerna who okayed and Rx pended for signature. Rx will be mailed to patient due to distance from our office. Aditi Blackburn documented in this encounter Plan of Treatment Not on file documented as of this encounter Visit Diagnoses Not on filedocumented in this encounter Discontinued Medications Medication Sig Discontinue Reason Start Date End Da te oxyCODONE 10 mg immediate release tablet Take 1 Tab by mouth every 6 hours as needed for Pain. Daily Max: 40 mg Reorder 02/17/2016 03/16/2016 documented as of this encounter Care Teams Electric Range Assembler Relationship Specialty Start Date End Date Cassie Roberts MD PCP - General 01/28/16 04/01/18 documented as of this encounter
--- OUTSIDE RECORDS SUMMARY | 2024-02-29 09:05 | XMS_ITS | Encounter Summary ---
Author Organization [facility] Address [address] [place] [address] Care Team Providers Care Baffle Installer Name Role Phone Giovanni Roberts PA-C Primary Care Provider [phone] Encounter Details Date Type Department Care Team (Late st Contact Info) Description 06/02/2014 Results Only [facility] Gastroenterology - [address] [address] Gunnar Mcmullen MD PhD [address] [place] [address], [address] [place] [address] Social History Tobacco Use Types [...] Procedure Name Priority Date/Time Associated Diagnosis Comments HEPATITIS A ANTIBODY IGM Routine 06/02/2014 15:10 EST HCV GENOTYPE, SERUM Routine 06/02/2014 1 5:10 EST documented in this encounter Results * HCV GENOTYPE, SERUM (06/02/2014 15:10 EST) Hepatitis C Genotype 1b Undetected 06/07/2014 8:45 EST [facility] Comment: (Note) ADDITIONAL INFORMATION This test was performed using the Szymanski RealTime HCV Genotype II assay ([employer] [place], [place]). BLOOD SPECIMEN / Unknown 06/02/2014 15:10 EST 06/02/2014 15:24 EST Gunnar Mcmullen MD PhD CHEMISTRY & BLO OD GAS ORDERABLES Performing Organization Address [facility] Co de Phone Number [facility] [address] [place] [address] * HEPATITIS A ANTIBODY IGM (06/02/2014 15:10 EST) Hep A Antibody IgM Negative 06/03/2014 12:06 EST [facility] Comment: Result consistent with past exposure, NOT a recent infection. Reference Range: ??Negative BLOOD SPECIMEN / Unknown 06/02/2014 15:10 EST 06/02/2014 15:24 EST Gunnar Mcmullen MD PhD CHEMISTRY & BLO OD GAS ORDERABLES Performing Organization Address [facility] de Phone Number [facility] [address] [place] [address] documented in this encounter Visit Diagnoses Not on filedocumented in this encounter Care Teams Baffle Installer Relationship Specialty Start Date End Date Giovanni Roberts PA-C [address] [place] [phone] PCP - General 06/21/12 12/27/15 documented as of this encounter
--- OUTSIDE RECORDS SUMMARY | 2024-02-29 09:05 | XMS_ITS | Encounter Summary ---
Author Organization [facility] Address [address] [place] [address] Care Team Providers Care Lead Network Engineer Name Role Phone Giovanni Roberts PA-C Primary Care Provider [phone] Encounter Details Date Type Department Care Team (Late st Contact Info) Description 06/02/2014 Phlebotomy Only [facility] [address] [place] [address] [place], Out[facility] Chronic hepatitis C without mention of hepatic coma (Primary Dx) Social History Tobacco Use Types Packs/Day Years [...] Priority Date/Time Associated Diagnosis Comments HCV RNA QUANT WITH REFLEX TO GENOTYPE Routine 06/02/2014 15:10 EST Chronic hepatitis C without mention of hepatic coma HEPATITIS A TOTAL ANTIBODY W REFLEX Routine 06/02/2014 15:10 EST Chronic hepatitis C without mention of hepatic coma HEPATITIS B SURFACE ANTIBODY Routine 06/02/2014 15:10 EST Chronic hepatitis C without mention of hepatic coma HEPATITIS B SURFACE ANTIGEN Routine 06/02/2014 15:10 EST Chronic hepatitis C without mention of hepatic coma PROTIME Routine 06/02/2014 15:10 EST Chronic hepatitis C without mention of hepatic coma COMPLETE BLOOD COUNT Routine 06/02/2014 15:10 EST Chronic hepatitis C without mention of hepatic coma COMPREHENSIVE METABOLIC PANEL (CMP) Routine 06/02/2014 15:10 EST Chronic hepatitis C without mention of hepatic coma documented in this encounter Results * PROTIME (06/02/2014 15:10 EST) Pro Time 10.6 9.5 - 12.3 secs 06/02/2014 16:08 [facility] I.N.R. 1.0 0.9 - 1.1 Ratio 06/02/2014 16:08 [facility] Comment: Moderate Intensity Coumadin INR = 2.0-3.0 Adjustments in anticoagulant therapy dose should be based upon the INR and NOT the Pro Time. Blood specimen (specimen) BLOOD SPECIMEN / Unknown 06/02/2014 15:10 EST 06/02/2014 15:24 EST Gunnar Mcmullen MD PhD HEMATOLOGY & PF 4 ORDERABLES Performing Organization Address City/State/[facility] Co de Phone Number [facility] [address] [place] [address] * (ABNORMAL) HEMAGRAM (06/02/2014 15:10 EST) WBC 9.69 4.0 - 10.4 K/cmm 06/02/2014 16:02 [facility] RBC 4.84 4.36 - 5.78 M/cmm 06/02/2014 16:02 [facility] Hemoglobin 15.7 13.8 - 17.3 gm/dl 06/02/2014 16:02 [facility] HCT 46.8 39.5 - 50.2 % 06/02/2014 16:02 [facility] MCV 97(H) 81 - 95 fl 06/02/2014 16:02 [facility] MCH 32.5 27.6 - 33.0 pg 06/02/2014 16:02 [facility] MCHC 33.6 32.8 - 36.4 gm/dl 06/02/2014 16:02 [facility] RDW-CV 13.0 11.8 - 14.1 % 06/02/2014 16:02 [facility] RDW-SD 45.1 36.5 - 45.9 fl 06/02/2014 16:02 [facility] PLT 238 141 - 320 K/cmm 06/02/2014 16:02 [facility] MPV 8.7 7.5 - 11.2 fl 06/02/2014 16:02 [facility] Blood specimen (specimen) BLOOD SPECIMEN / Unknown 06/02/2014 15:10 EST 06/02/2014 15:24 EST Gunnar Mcmullen MD PhD HEMATOLOGY & PF 4 ORDERABLES Performing Organization Address City/State/[facility] Co de Phone Number [facility] [address] [place] [address] * (ABNORMAL) COMPREHENSIVE METABOLIC PANEL (CMP) (06/02/2014 15:10 EST) Potassium 4.6 3.5 - 5.0 mEq/L 06/02/2014 16:33 [facility] Sodium 140 136 - 145 mEq/L 06/02/2014 16:33 [facility] Chloride 99 96 - 110 mEq/L 06/02/2014 16:33 [facility] CO2 30 24 - 32 mEq/L 06/02/2014 16:33 [facility] Total Alkaline Phosphatase 49 38 - 126 U/L 06/02/2014 16:33 [facility] Bilirubin, Total <0.5 <1.4 mg/dl 06/02/19 15 16:33 [facility] AST 36 15 - 46 U/L 06/02/2014 16:33 [facility] ALT 44 21 - 72 U/L 06/02/2014 16:33 [facility] Albumin 4.6 3.4 - 4.9 g/dl 06/02/2014 16:33 [facility] Total Protein 7.3 6.5 - 8.3 g/dl 06/02/2014 16:33 [facility] Creatinine 0.86 0.66 - 1.25 mg/dl 06/02/2014 16:33 [facility] GFR, Calculated >60 >60 ml/min/1.7 3m2 06/02/2014 16:33 [facility] BUN 17 10 - 26 mg/dl 06/02/2014 16:33 [facility] Calcium 9.4 8.5 - 10.5 mg/dl 06/02/2014 16:33 [facility] Calculated Calcium 9.2 8.5 - 10.5 mg/dl 06/02/2014 16:33 [facility] Glucose, Serum 69(L) 70 - 100 mg/dl 06/02/2014 16:33 [facility] Fasting? No 06/02/2014 15:11 [facility] Blood specimen (specimen) BLOOD SPECIMEN / Unknown 06/02/2014 15:10 EST 06/02/2014 15:24 EST Gunnar Mcmullen MD PhD CHEMISTRY & BLO OD GAS ORDERABLES Performing Organization Address [facility] Co de Phone Number [facility] [address] [place] [address] * HCV RNA QUANT WITH REFLEX TO GENOTYPE (06/02/2014 15:10 EST) HCV RNA Detect Quant 826,951 IU/mL 06/05/2014 14:56 [facility] Comment: Reference Range: ??Undetected The quantification range of this assay is 15 IU/mL to 100,000,000 IU/mL. Testing was performed by the [employer]ip[employer]/Rodríguez TaqMan HCV v2.0 ([employer] Blood specimen (specimen) BLOOD SPECIMEN / Unknown 06/02/2014 15:10 EST 06/02/2014 15:24 EST Gunnar Mcmullen MD PhD CHEMISTRY & BLO OD GAS ORDERABLES Performing Organization Address City/[facility]/ZIP Co de Phone Number [facility] [address] [place] [address] * HEPATITIS B SURFACE ANTIBODY (06/02/2014 15:10 EST) Hepatitis B Surface Ab Positive 06/03/2014 10:49 EST [facility] Comment: Reference Range: Unvaccinated: ??Negative Vaccinated: ??Positive HBs Antibody, Quant 612.0 mIU/mL 06/03/2014 10:49 EST [facility] Comment: Patient is presumed to be immune to infection with HBV. Reference Range: Positive: >=12.0 mIU/mL Indeterminate: >=5.0 to <12.0 mIU/mL Negative: <5.0 mIU/mL Blood specimen (specimen) BLOOD SPECIMEN / Unknown 06/02/2014 15:10 EST 06/02/2014 15:24 EST Gunnar Mcmullen MD PhD CHEMISTRY & BLO OD GAS ORDERABLES Performing Organization Address [facility] Co de Phone Number [facility] [address] [place] [address] * HEPATITIS A TOTAL ANTIBODY (06/02/2014 15:10 EST) Hep A Antibody Positive 06/03/2014 10:49 EST [facility] Comment: Antibody to Hepatitis A detected. Reference Range: ??Negative Blood specimen (specimen) BLOOD SPECIMEN / Unknown 06/02/2014 15:10 EST 06/02/2014 15:24 EST Gunnar Mcmullen MD PhD CHEMISTRY & BLO OD GAS ORDERABLES Performing Organization Address City/[facility] Co de Phone Number [facility] [address] [place] [address] * HEPATITIS B SURFACE ANTIGEN (06/02/2014 15:10 EST) Hepatitis B Surface Ag Negative 06/03/2014 10:49 EST [facility] Comment:Reference Range: Neg ative Blood specimen (specimen) BLOOD SPECIMEN / Unknown 06/02/2014 15:10 EST 06/02/2014 15:24 EST Gunnar Mcmullen MD PhD CHEMISTRY & BLO OD GAS ORDERABLES [facility] [address] [place] [address] documented in this encounter Visit Diagnoses Diagnosis Chronic hepatitis C without mention of hepatic coma- Primary documented in this encounter Care Teams Lead Network Engineer Relationship Specialty Start Date End Date Giovanni Roberts PA-C [address] [place] [phone] PCP - General 06/21/12 12/27/15 documented as of this encounter
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
--- OUTSIDE RECORDS SUMMARY | 2024-02-29 09:05 | XMS_ITS | Encounter Summary ---
Author Organization [facility] Address [address] [place] [address] Care Team Providers Care Appliance Mechanic Name Role Phone Giovanni Roberts PA-C Primary Care Provider [phone] Reason for Visit * Reason Onset Date Comments Medications Refill 04/26/2013 Encounter Details Date Type Department Care Team (Late st Contact Info) Description 04/26/2013 Refill [facility]remity [facility] - [address] [phone] Vivek Cerna MD [address] [place] [address] Medications Refill Social History Tobacco [...] Dispensed Refills Start Date End Da te oxyCODONE-acetaminophen (PERCOCET) 5-325 mg per tablet Take 1 Tab by mouth every 4 hours as needed for Pain. 10 Tab 0 04/26/2013 04/08/2020 documented in this encounter Plan of Treatment Not on file documented as of this encounter Visit Diagnoses Not on filedocumented in this encounter Discontinued Medications Medication Sig Discontinue Reason Start Date End Da te oxyCODONE-acetaminophen (PERCOCET) 5-325 mg per tablet Take 1 Tab by mouth every 4 hours as needed for Pain. Reorder 08/15/2012 04/26/2013 documented as of this encounter Care Teams Appliance Mechanic Relationship Specialty Start Date End Date Giovanni Roberts PA-C [address] [place] [phone] PCP - General 06/21/12 12/27/15 documented as of this encounter
--- OUTSIDE RECORDS SUMMARY | 2024-02-29 09:05 | XMS_ITS | Encounter Summary ---
Author Organization [facility] Address [address] [place] [address] Care Team Providers Care Structural Engineer Name Role Phone Unknown, Provider Primary Care Provider Cassie Roberts MD Primary Care Provider Unavailabl e Reason for Visit * Reason Onset Date Comments Medication Management 01/19/2016 Encounter Details Date Type Department Care Team (Late st Contact Info) Description 01/20/2016 Telephone [facility] [place] [address] Rubina Diez LPN [address] [place] [address] Medication Management Social History Tobacco Use Types Packs/Day Years [...] Telephone Encounter - Rubina Diez LPN - 01/20/2016 1236 EDT Edd called yesterday to request a refill of pain meds. I explained that Dr. Cerna said in thelast note that he was given a once per year prescription. He disagreed with this plan, and asked tosee him again soon, as he is in a lot of pain. He was transferred to the primary care physician to make an appointment. Rubina Diez LPN 12:37 documented in this encounter Plan of Treatment Not on file documented as of this encounter Visit Diagnoses Not on filedocumented in this encounter Care Teams Structural Engineer Relationship Specialty Start Date End Date Unknown, Provider, PCP - General 12/28/15 01/27/16 Cassie Roberts MD PCP - General 01/28/16 04/01/18 documented as of this encounter
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
--- OUTSIDE RECORDS SUMMARY | 2024-02-29 09:05 | XMS_ITS | Encounter Summary ---
Author Organization [facility] Address [address] [place] [address] Care Team Providers Care Heavy Duty Diesel Mechanic Name Role Phone Giovanni Roberts PA-C Primary Care Provider [phone] Reason for Visit * Reason Onset Date Comments Medications Refill 09/26/2013 Encounter Details Date Type Department Care Team (Late st Contact Info) Description 09/26/2013 Refill [facility] Orthopedic Trauma - [address] [id number] Roel Zaldivar MD [address] [place] [address], [address] [place] [phone] Medications Refill Social History Tobacco Use Types [...] needed for Pain. 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 Discussed with Dr. Zaldivar as Dr. Cerna had already left for the day who okayed and Rx pended for signature. Rx will be mailed to patient Aditi Blackburn documented in this encounter Plan of Treatment Not on file documented as of this encounter Visit Diagnoses Not on filedocumented in this encounter Discontinued Medications Medication Sig Discontinue Reason Start Date End Da te oxyCODONE 10 mg immediate release tablet Take 1 Tab by mouth every 6 hours as needed for Pain. Earliest Fill Date: 09/02/13 Reorder 09/02/2013 09/26/2013 documented as of this encounter Care Teams Heavy Duty Diesel Mechanic Relationship Specialty Start Date End Date Giovanni Roberts, FAYEC [address] [place] [phone] PCP - General 06/21/12 12/27/15 documented as of this encounter
--- OUTSIDE RECORDS SUMMARY | 2024-02-29 09:05 | XMS_ITS | Encounter Summary ---
Author Organization [facility] Address [address] [place] [address] Care Team Providers Care Product Marketing Analyst Name Role Phone Cassie Roberts MD Primary Care Provider Unavailabl e Encounter Details Date Type Department Care Team (Late st Contact Info) Description 04/12/2016 Phlebotomy Only [address] [address] Stamp Press Operator, Outpatient Chronic hepatitis C without hepatic coma (CMS-HCC) (Primary Dx) Social History Tobacco Use Types [...] Diagnosis Comments HCV RNA DETECT QUANT Routine 04/12/2016 13:44 EST Chronic hepatitis C without hepatic coma (CMS-HCC) PROTIME Routine 04/12/2016 13:44 EST Chronic hepatitis C without hepatic coma (CMS-HCC) COMPLETE BLOOD COUNT Routine 04/12/2016 13:44 EST Chronic hepatitis C without hepatic coma (CMS-HCC) COMPREHENSIVE METABOLIC PANEL (CMP) Routine 04/12/2016 13:44 EST Chronic hepatitis C without hepatic coma (CMS-HCC) documented in this encounter Results * (ABNORMAL) HCV RNA DETECT QUANT (04/12/2016 13:44 EST) [facility] HCV RNA Detect Quant 543,750( A) Undetected IU/mL 04/14/2016 9:57 [facility] Comment: Reference Range: ??Undetected The quantification range of this assay is 15 IU/mL to 100,000,000 IU/mL. Testing was performed by the [employer]/Rod[employer] TaqMan HCV v2.0 ([employer] Blood specimen (specimen) BLOOD SPECIMEN / Unknown 04/12/2016 13:44 EST 04/12/2016 14:06 EST Gunnar Mcmullen MD PhD CHEMISTRY & BLO OD GAS ORDERABLES Performing Organization Address [facility] Co de Phone Number [facility] [address] [place] [phone] * PROTIME (04/12/2016 13:44 EST) [facility] Pro Time 12.7 10.3 - 13.1 secs 04/12/2016 14:28 [facility] I.N.R. 1.1 0.9 - 1.1 Ratio 04/12/2016 14:28 [facility] Comment: Moderate Intensity Coumadin INR = 2.0-3.0 Adjustments in anticoagulant therapy dose should be based upon the INR and NOT the Pro Time. Blood specimen (specimen) BLOOD SPECIMEN / Unknown 04/12/2016 13:44 EST 04/12/2016 14:06 EST Gunnar Mcmullen MD PhD HEMATOLOGY & PF 4 ORDERABLES Performing Organization Address [facility] Co de Phone Number [facility] [address] [place] [address] [place] [address] * (ABNORMAL) HEMAGRAM (04/12/2016 13:44 EST) WBC 9.81 4.0 - 10.4 K/cmm 04/12/2016 14:25 [facility] RBC 5.80(H) 4.36 - 5.78 M/cmm 04/12/2016 14:25 [facility] Hemoglobin 18.7(H) 13.8 - 17.3 gm/dl 04/12/2016 14:25 [facility] HCT 53.4(H) 39.5 - 50.2 % 04/12/2016 14:25 [facility] MCV 92 81 - 95 fl 04/12/2016 14:25 [facility] MCH 32.2 27.6 - 33.0 pg 04/12/2016 14:25 [facility] MCHC 35.0 32.8 - 36.4 gm/dl 04/12/2016 14:25 [facility] RDW-CV 12.8 11.8 - 14.1 % 04/12/2016 14:25 [facility] RDW-SD 43.6 36.5 - 45.9 fl 04/12/2016 14:25 [facility] PLT 270 141 - 377 K/cmm 04/12/2016 14:25 [facility] MPV 10.6 9.5 - 12.7 fl 04/12/2016 14:25 [facility] Blood specimen (specimen) BLOOD SPECIMEN / Unknown 04/12/2016 13:44 EST 04/12/2016 14:06 EST Gunnar Mcmullen MD PhD HEMATOLOGY & PF 4 ORDERABLES [facility] [address] [place] [address] * (ABNORMAL) COMPREHENSIVE METABOLIC PANEL (CMP) (04/12/2016 13:44 EST) Potassium 4.0 3.5 - 5.0 mEq/L 04/12/2016 15:06 [facility] Sodium 141 136 - 145 mEq/L 04/12/2016 15:06 [facility] Chloride 97 96 - 110 mEq/L 04/12/2016 15:06 [facility] CO2 34(H) 22 - 32 mEq/L 04/12/2016 15:06 [facility] Comment:Note new reference r brady 02/16/16 Total Alkaline Phosphatase 72 38 - 126 U/L 04/12/2016 15:06 [facility] Bilirubin, Total 0.7 <1.4 mg/dl 04/12/20 16 15:06 [facility] AST 28 15 - 46 U/L 04/12/2016 15:06 [facility] ALT 43 21 - 72 U/L 04/12/2016 15:06 [facility] Albumin 4.5 3.4 - 4.9 g/dl 04/12/2016 15:06 [facility] Total Protein 8.2 6.3 - 8.2 g/dl 04/12/2016 15:06 [facility] Creatinine 0.63(L) 0.66 - 1.25 mg/dl 04/12/2016 15:06 [facility] GFR, Calculated 122 >60 ml/min/1.7 3m2 04/12/2016 15:06 [facility] Comment: eGFR calculated using CKD-EPI equation for non Americans. Multiply eGFR by 1.16 for Americans. BUN 9(L) 10 - 26 mg/dl 04/12/2016 15:06 [facility] Calcium 9.4 8.5 - 10.5 mg/dl 04/12/2016 15:06 [facility] Calculated Calcium 9.0 8.5 - 10.5 mg/dl 04/12/2016 15:06 [facility] Comment: Note new formula for calculation in use 02/03/2016 Glucose, Serum 89 70 - 100 mg/dl 04/12/2016 15:06 [facility] Fasting? No 04/12/2016 13:44 [facility] Blood specimen (specimen) BLOOD SPECIMEN / Unknown 04/12/2016 13:44 EST 04/12/2016 14:06 EST Gunnar Mcmullen MD PhD CHEMISTRY & BLO OD GAS ORDERABLES [facility] [address] [place] [address] documented in this encounter Visit Diagnoses Diagnosis Chronic hepatitis C without hepatic coma (HCC-CMS)- Primary Chronic hepatitis C without mention of hepatic coma documented in this encounter Care Teams Product Marketing Analyst Relationship Specialty Start Date End Date Cassie Roberts MD PCP - General 01/28/16 04/01/18 documented as of this encounter
--- OUTSIDE RECORDS SUMMARY | 2024-02-29 09:05 | XMS_ITS | Encounter Summary ---
Author Organization [facility] Address [address] [place] [address] Care Team Providers Care Owner Professional Engineer Name Role Phone Giovanni Roberts PA-C Primary Care Provider [phone] Reason for Visit * Reason Onset Date Comments Medications Refill 06/27/2013 Encounter Details Date Type Department Care Team (Late st Contact Info) Description 06/27/2013 Refill [facility] Orthopedic Trauma - [address] [address] Vivek Cerna MD [address] [place] [phone] Medications Refill Social History Tobacco [...] needed for Pain. Earliest Fill Date: 06/27/13 40 Tab 0 06/27/2013 07/18/2013 documented in this encounter Miscellaneous Notes * Telephone Encounter - Aditi Blackburn Rohit - 06/27/2013 1048 EST Edd calls requesting refill of oxycodone [...] 6 hours as needed for Pain. Reorder 05/30/2013 06/27/2013 documented as of this encounter Care Teams Owner Professional Engineer Relationship Specialty Start Date End Date Giovanni Roberts PA-C [address] [place] [phone] PCP - General 06/21/12 12/27/15 documented as of this encounter
--- OUTSIDE RECORDS SUMMARY | 2024-02-29 09:05 | XMS_ITS | Encounter Summary ---
Author Organization [facility] Address [address] [place] [address] Care Team Providers Care Cordwood Cutter Helper Name Role Phone Cassie Roberts MD Primary Care Provider Unavailabl e Reason for Visit * Reason Comments Follow-up Saw in 2015/Hep C * Consult (Routine) - Closed Specialty Diagnoses / Procedures Referred By Contact Referred To Contact Gastroenterology and Hepatology Diagnoses Unspecified viral hepatitis C without hepatic coma Cassie Roberts MD [address] [place] [address] [facility] [address] [place] [address] Referral ID Status Reason Start Date Expiration Date Visits Re quested Visits Authorized [id number] Closed 01/27/2016 1 1 Encounter Details Date Type Department Care Team (Late st Contact Info) Description 04/12/2016 13:30 EST Office Visit [facility] Gastroenterology - [address] [address] Gunnar Mcmullen MD PhD [address] [facility], Level [address] [place] [address] Chronic hepatitis C without hepatic coma (CMS-HCC) [...] Reading Time Taken Comments Blood Pressure 140/82 04/12/2016 1309 EST Pulse 80 04/12/2016 1309 EST Temperature - - Respiratory Rate - - Oxygen Saturation - - Inhaled Oxygen Concentration - - Weight 82.1 kg (181 lb) 04/12/2016 1309 EST Height 180 cm (5' 10.87) 04/12/2016 1309 EST Body Mass Index 25.34 04/12/2016 1309 EST documented in this encounter Functional Status [...] in this encounter Progress Notes * Gunnar cMmullen MD - 04/13/2016 0822 EST [facility] GASTROENTEROLOGY AND HEPATOLOGY PROGRESS / FOLLOWUP NOTE - 04/12/2016 Cassie Roberts MD [facility] [address] [place] [address] Roberts: Thank you for asking me to see your patient, Garret Barros, in the office today. As you know, he is [id number] man with chronic hepatitis C. I saw him in consultation in June 2014, when he was asymptomatic from the standpoint of liver disease and hepatitis C had been first detected as long agoas 1996. A barrier to antiviral treatment at that time was a history of ethanol dependency with recent alcohol use. Molecular testing revealed that the hepatitis C viral genotype was 1b, and additional testing confirmed immunity to hepatitis A and B. I had arranged for the patient to undergo an ultrasound to screen for the possibility of cirrhosis, but he did not appear for this. Since I last sawhim, he has had no interval symptoms from the standpoint of liver disease, including jaundice, fluid retention, or gastrointestinal bleeding. Ongoing health issues include chronic pain and COPD. The patient is currently living with friends and seeks a home of his own. The last consumption of alcohol was in the summer of 2015. Current medications include ProAir and Combivent inhalers. On physical examination, the patient was found to be a cooperative white man. Weight 181 pounds (BMI 25.34), blood pressure 140/82, pulse 80. The skin revealed no spider angiomata. The sclerae were clear. The oropharynx was clear. The neck revealed no lymphadenopathy. The lungs revealed diffuse wheezes bilaterally. Cardiac examination revealed a regular rhythm. The abdomen revealed no obvious ascites. It was soft, nontender, and no masses were appreciated. I could not palpate a liver or spleen.There was no pretibial edema. Neurologically, the patient was alert and oriented to person, place and time. In summary, Mr Barros has chronic hepatitis C of longstanding duration. It will be important to evaluate for the possibility of cirrhosis, as this would alter management decision making. To screen for this, I will start with laboratory testing to calculate the FIB-4 score. If this is elevated, I willarrange for a right upper quadrant abdominal ultrasound (and if cirrhosis is not revealed, a transjugular liver biopsy). By contrast, if the FIB-4 score is not elevated, I will arrange for transient elastography, a noninvasive test that measures liver stiffness. I will be in touch with you and the patient when the results are available. Regardless of the test results, successful antiviral treatment will prevent the development of decompensated liver disease. The treatment of choice for genotype 1b hepatitis C is 12 weeks of combination oral directly acting antiviral medications, with a sustained virological response of over 90%, and few adverse side effects. Assuming that no worrisome findings are revealed on imaging studies above, I anticipate requesting authorization from the patient's health plan of antiviral treatment. Upon approval, antiviral treatment will ensue. Thank you once again for allowing me to see this patient in consultation with you. Should you have any further questions regarding this evaluation, please feel free to contact me at any time. Sincerely, Gunnar Mcmullen MD,PhD 02 47 PM - Gunnar Mcmullen MD,PhD mn Dictation ID: [id number] cc: Cassie Roberts MD, [facility] [address], [place] [address] * Gunnar Mcmullen MD - 04/12/2016 1330 EST This office note has been dictated. documented in this encounter Plan of Treatment Not on file documented as of this encounter Results * (ABNORMAL) HCV RNA DETECT QUANT (04/12/2016 13:44 EST) [facility] HCV RNA Detect Quant 543,750( A) Undetected IU/mL 04/14/2016 9:57 EST [facility] Comment: Reference Range: ??Undetected The quantification range of this assay is 15 IU/mL to 100,000,000 IU/mL. Testing was performed by the [employer]ip[employer]/Rodríguez TaqMan HCV v2.0 ([employer] Blood specimen (specimen) BLOOD SPECIMEN / Unknown 04/12/2016 13:44 EST 04/12/2016 14:06 EST Gunnar Mcmullen MD PhD CHEMISTRY & BLO OD GAS ORDERABLES [facility] [address] [place] [address] * PROTIME (04/12/2016 13:44 EST) [facility] Pro Time 12.7 10.3 - 13.1 secs 04/12/2016 14:28 EST [facility] I.N.R. 1.1 0.9 - 1.1 Ratio 04/12/2016 14:28 EST [facility] Comment: Moderate Intensity Coumadin INR = 2.0-3.0 Adjustments in anticoagulant therapy dose should be based upon the INR and NOT the Pro Time. Blood specimen (specimen) BLOOD SPECIMEN / Unknown 04/12/2016 13:44 EST 04/12/2016 14:06 EST Gunnar Mcmullen MD PhD HEMATOLOGY & PF 4 ORDERABLES Performing Organization Address City/[facility]/ZIP Co de Phone Number [facility] [address] [place] [address] * (ABNORMAL) HEMAGRAM (04/12/2016 13:44 EST) WBC 9.81 4.0 - 10.4 K/cmm 04/12/2016 14:25 [facility] RBC 5.80(H) 4.36 - 5.78 M/cmm 04/12/2016 14:25 [facility] Hemoglobin 18.7(H) 13.8 - 17.3 gm/dl 04/12/2016 14:25 [facility] HCT 53.4(H) 39.5 - 50.2 % 04/12/2016 14:25 [facility] MCV 92 81 - 95 fl 04/12/2016 14:25 [facility] MCH 32.2 27.6 - 33.0 pg 04/12/2016 14:25 [facility] MCHC 35.0 32.8 - 36.4 gm/dl 04/12/2016 14:25 [facility] RDW-CV 12.8 11.8 - 14.1 % 04/12/2016 14:25 [facility] RDW-SD 43.6 36.5 - 45.9 fl 04/12/2016 14:25 [facility] PLT 270 141 - 377 K/cmm 04/12/2016 14:25 [facility] MPV 10.6 9.5 - 12.7 fl 04/12/2016 14:25 [facility] Blood specimen (specimen) BLOOD SPECIMEN / Unknown 04/12/2016 13:44 EST 04/12/2016 14:06 EST Gunnar Mcmullen MD PhD HEMATOLOGY & PF 4 ORDERABLES Performing Organization Address City/[facility]/ZIP Co de Phone Number [facility] [address] [place] [address] * (ABNORMAL) COMPREHENSIVE METABOLIC PANEL (CMP) (04/12/2016 13:44 [facility]) Potassium 4.0 3.5 - 5.0 mEq/L 04/12/2016 15:06 [facility] Sodium 141 136 - 145 mEq/L 04/12/2016 15:06 [facility] Chloride 97 96 - 110 mEq/L 04/12/2016 15:06 [facility] CO2 34(H) 22 - 32 mEq/L 04/12/2016 15:06 [facility] Comment:Note new reference r brady 02/16/16 Total Alkaline Phosphatase 72 38 - 126 U/L 04/12/2016 15:06 [facility] Bilirubin, Total 0.7 <1.4 mg/dl 04/12/20 16 15:06 [facility] AST 28 15 - 46 U/L 04/12/2016 15:06 [facility] ALT 43 21 - 72 U/L 04/12/2016 15:06 [facility] Albumin 4.5 3.4 - 4.9 g/dl 04/12/2016 15:06 [facility] Total Protein 8.2 6.3 - 8.2 g/dl 04/12/2016 15:06 [facility] Creatinine 0.63(L) 0.66 - 1.25 mg/dl 04/12/2016 15:06 [facility] GFR, Calculated 122 >60 ml/min/1.7 3m2 04/12/2016 15:06 [facility] Comment: eGFR calculated using CKD-EPI equation for non Americans. Multiply eGFR by 1.16 for Americans. BUN 9(L) 10 - 26 mg/dl 04/12/2016 15:06 [facility] Calcium 9.4 8.5 - 10.5 mg/dl 04/12/2016 15:06 [facility] Calculated Calcium 9.0 8.5 - 10.5 mg/dl 04/12/2016 15:06 [facility] Comment: Note new formula for calculation in use 02/03/2016 Glucose, Serum 89 70 - 100 mg/dl 04/12/2016 15:06 [facility] Fasting? No 04/12/2016 13:44 EST [facility] Blood specimen (specimen) BLOOD SPECIMEN / Unknown 04/12/2016 13:44 EST 04/12/2016 14:06 EST Gunnar Mcmullen MD PhD CHEMISTRY & BLO OD GAS ORDERABLES [facility] [address] [place] [address] documented in this encounter Visit Diagnoses Diagnosis Chronic hepatitis C without hepatic coma (HCC-CMS)- Primary Chronic hepatitis C without mention of hepatic coma documented in this encounter Care Teams Cordwood Cutter Helper Relationship Specialty Start Date End Date Cassie Roberts MD PCP - General 01/28/16 04/01/18 documented as of this encounter
--- OUTSIDE RECORDS SUMMARY | 2024-02-29 09:05 | XMS_ITS | Encounter Summary ---
Author Organization [facility] Address [address] [place] [address] Care Team Providers Care Stem Cleaning Machine Feeder Name Role Phone Giovanni Roberts PA-C Primary Care Provider [phone] Reason for Visit * Reason Onset Date Comments Medications Refill 09/02/2013 Encounter Details Date Type Department Care Team (Late st Contact Info) Description 09/02/2013 Refill [facility] Orthopedic Trauma - [address] [address] Vivek Cerna MD [address] [place] [address] Medications Refill Social History Tobacco [...] needed for Pain. 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 Discussed with Dr. Cerna who okayed and Rx pended for signature. Rx will be mailed to patient. Aditi Blackburn documented in this encounter Plan of Treatment Not on file documented as of this encounter Visit Diagnoses Not on filedocumented in this encounter Discontinued Medications Medication Sig Discontinue Reason Start Date End Da te oxyCODONE 10 mg immediate release tablet Take 1 Tab by mouth every 6 hours as needed for Pain. Earliest Fill Date: 07/18/13 Reorder 07/18/2013 09/02/2013 documented as of this encounter Care Teams Stem Cleaning Machine Feeder Relationship Specialty Start Date End Date Giovanni Roberts PA-C [address] [place] [phone] PCP - General 06/21/12 12/27/15 documented as of this encounter
--- OUTSIDE RECORDS SUMMARY | 2024-02-29 09:05 | XMS_ITS | Encounter Summary ---
Author Organization [facility] Address [address] [place] [address] Care Team Providers Care Blasting Coal Miner Name Role Phone Giovanni Roberts PA-C Primary Care Provider [phone] Reason for Visit * Reason Onset Date Comments Medications Refill 05/29/2014 Encounter Details Date Type Department Care Team (Late st Contact Info) Description 05/29/2014 Refill [facility] Orthopedic Trauma - [address] [address] Vivek Cerna MD [address] [place] [address] Medications Refill Social History Tobacco [...] needed for Pain. Earliest Fill Date: 05/29/14 40 Tab 0 05/29/2014 12/28/2015 documented in this encounter Miscellaneous Notes * Telephone Encounter - Aditi Blackburn Rohit - 05/29/2014 1055 EST Edd calls for refill of Percocet for chronic hip and leg pain. Discussed with Dr. Cerna who agreed to sign a new Rx but wants Edd to know this will be his last Rx. Rx pended for signature. Edd will fiber picker here in the office and I will let him know at that time that this will be the last one. Aditi Blackburn documented in this encounter Plan of Treatment Not on file documented as of this encounter Visit Diagnoses Not on filedocumented in this encounter Discontinued Medications Medication Sig Discontinue Reason Start Date End Da te oxyCODONE 10 mg immediate release tablet Take 1 Tab by mouth every 6 hours as needed for Pain. Earliest Fill Date: 05/08/14 Reorder 05/08/2014 05/29/2014 documented as of this encounter Care Teams Blasting Coal Miner Relationship Specialty Start Date End Date Giovanni Roberts, FAYEC [address] [place] [phone] PCP - General 06/21/12 12/27/15 documented as of this encounter
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
--- OUTSIDE RECORDS SUMMARY | 2024-02-29 09:06 | XMS_ITS | Encounter Summary ---
Author Organization [facility] Address [address] [place] [address] Care Team Providers Care Terrazzo Polisher Name Role Phone Unavailable Primary Care Provider Unavailabl e Encounter Details Date Type Department Care Team (Latest Contact Info) Description 01/12/1999 9:31 EDT - 01/12/1999 11:59 EDT Hospital Encounter [facility] [address] [place] [address] Vivek Cerna MD [address] [place] [phone] Discharge Disposition: Auto Discharge Social History Tobacco Use Types Packs/Day Years Used Date Smoking Tobacco: Never Assessed Sex and Gender Information Value Date Recorded Sex Assigned at Not on file Gender Identity Male 04/10/2020 10:26 EST Sexual Orientation Not on file documented as of this encounter Discharge Disposition Disposition Code Departure Means Destination Auto Discharge documented in this encounter Plan of Treatment Not on file documented as of this encounter Procedures Procedure Name Priority Date/Time Associated Diagnosis Comments TIBIA FIBULA 2 VIEWS Routine 01/12/1999 11:00 EDT documented in this encounter Results * TIBIA FIBULA 2 VIEWS (01/12/1999 11:00 EDT) Anatomical Region Laterality Modality Other 01/12/1999 11:0 0 EDT Narrative 03/10/2009 7:35 EST PAIN,DOI 02-10-95 ASSESS HEALING OF OLD FX 01-12-99: LEFT LOWER LEG: COMPARISON: 07-17-96. The proximal tibia diaphysis fracture is healed and remains internally fixed by an intramedullary nail. No instrumentation failure is seen. D: 01-14-99 T: 01-15-99 /am Procedure Note Will Levy MD - 03/10/2009 PAIN,DOI 02-10-95 ASSESS HEALING OF OLD FX 01-12-99: LEFT LOWER LEG: COMPARISON: 07-17-96. The proximal tibia diaphysis fracture is healed and remains internally fixed by an intramedullary nail. No instrumentation failure is seen. D: 01-14-99 T: 01-15-99 /am Vivek Cerna MD IMG DIAGNOSTIC I MAGING ORDERABLES documented in this encounter Visit Diagnoses Not on filedocumented in this encounter
--- OUTSIDE RECORDS SUMMARY | 2024-02-29 09:06 | XMS_ITS | Encounter Summary ---
Author Organization [facility] Address [address] [place] [address] Care Team Providers Care Agent Ticketing Gate Name Role Phone Unavailable Primary Care Provider Unavailabl e Encounter Details Date Type Department Care Team (Late st Contact Info) Description 02/11/2005 8:54 EDT Hospital Encounter [facility] - [facility] [address] [place] [address] Vivek Cerna MD [address] [place] [phone] Social History Tobacco Use Types Packs/Day Years [...] 13:50 EDT documented as of this encounter Plan of Treatment Not on file documented as of this encounter Visit Diagnoses Not on filedocumented in this encounter
--- OUTSIDE RECORDS SUMMARY | 2024-02-29 09:06 | XMS_ITS | Encounter Summary ---
Author Organization [facility] Address [address] [place] [address] Care Team Providers Care Grain Distributor Name Role Phone Unavailable Primary Care Provider Unavailabl e Encounter Details Date Type Department Care Team (Latest Contact Info) Description 02/04/1999 9:22 EDT - 02/04/1999 11:59 EDT Hospital Encounter [facility] General Surgery Unit [address] [place], [place] [id number] Vivek Cerna MD [address] [place] [phone] Discharge Disposition: Home or Self Care Social [...]
--- OUTSIDE RECORDS SUMMARY | 2024-02-29 09:06 | XMS_ITS | Encounter Summary ---
Author Organization [facility] Address [address] [place] [address] Care Team Providers Care Banquet Supervisor Name Role Phone Giovanni Roberts PA-C Primary Care Provider [phone] Reason for Visit * Reason Comments Follow-up Left lower leg, fell off ladder Encounter Details Date Type Department Care Team (Late st Contact Info) Description 07/09/2012 8:00 EDT Office Visit [facility] Orthopedic Trauma - [address] [address] Vivek Cerna MD [address] [place] [address] Fracture, tibia (Primary Dx) Social History Tobacco Use Types Packs/Day Years Used Date Smoking Tobacco: Never Assessed Sex and Gender Information Value Date Recorded Sex Assigned at Not on file Gender Identity Male 04/10/2020 10:26 EST Sexual Orientation Not on file documented as of this encounter Ordered Prescriptions Prescription Sig Dispensed Refills Start Date End Da te oxycodone-acetaminophen (PERCOCET) 5-325 mg per tablet Take 1 Tab by mouth every 4 hours as needed for Pain. 120 Tab 0 07/09/2012 08/01/2012 documented in this encounter Progress Notes * Vivek Cerna MD - 07/09/2012 0911 EDT A 37-year-old male status post multiple trauma in the remote past. The patient has chronic pain issues. He has a below-knee amputation on the right and a severe tibia fracture on the left. Hardware is out on the left. SUBJECTIVE: The patient states that about a month ago, he fell and his left leg about mid-calf has been aching ever since. It has been bothering him, especially at night and it has not gotten better over the past month. Poorly localized over the middle third of the cast. OBJECTIVE: The patient is alert, oriented x3, in no acute distress. Inspection of his leg reveals no swelling, no localized tenderness. He does have impressive scarring from the old injuries, surgeryincluding hardware removal. Has good motion distally. His skin is intact. No erythema. ASSESSMENT: Aggravation of an old injury. PLAN: The patient is given a prescription for Percocet. He usually picks one up about once a year, but otherwise has been very good about not taking pain medicine. He will return here if this problemcontinues and does not resolve itself over the next month or so. Otherwise return p.r.n. documented in this encounter Plan of Treatment Not on file documented as of this encounter Visit Diagnoses Diagnosis Fracture, tibia- Primary Closed fracture of unspecified part of tibia documented in this encounter Discontinued Medications Medication Sig Discontinue Reason Start Date End Da te oxycodone-acetaminophen (PERCOCET) 5-325 mg per tablet Take 1 Tab by mouth every 4 hours as needed for Pain. Reorder 07/21/2011 07/09/2012 documented as of this encounter Care Teams Banquet Supervisor Relationship Specialty Start Date End Date Giovanni Roberts PA-C [address] [place] [phone] PCP - General 06/21/12 12/27/15 documented as of this encounter
--- OUTSIDE RECORDS SUMMARY | 2024-02-29 09:06 | XMS_ITS | Encounter Summary ---
Author Organization [facility] Address [address] [place] [address] Care Team Providers Care Environmental Science Instructor Name Role Phone Unavailable Primary Care Provider Unavailabl e Encounter Details Date Type Department Care Team (Late st Contact Info) Description 02/21/2006 11:01 EDT Hospital Encounter [facility] - Maple conversion [address] [place] [address] Vivek Cerna MD [address] [place] [phone] Social History Tobacco Use Types Packs/Day [...]
--- OUTSIDE RECORDS SUMMARY | 2024-02-29 09:06 | XMS_ITS | Encounter Summary ---
Author Organization [facility] Address [address] [place] [address] Care Team Providers Care Psychiatry Physician Name Role Phone Unavailable Primary Care Provider Unavailabl e Encounter Details Date Type Department Care Team (Late st Contact Info) Description 03/29/2006 Before PRISM Converted Visit (Maple) [facility] - Maple conversion [address] [place] [address] Vivek Cerna MD [address] [place] [phone] Social History Tobacco Use Types Packs/Day Years Used Date Smoking Tobacco: Never Assessed Sex and Gender Information Value Date Recorded Sex Assigned at Not on file Gender Identity Male 04/10/2020 10:26 EST Sexual Orientation Not on file documented as of this encounter Progress Notes * Vivek Cerna MD - 05/07/2009 1408 EST Sports Medicine and Orthopaedic Trauma Department Medical Office Building [address] [place] [address], [address] [place] [address] PROGRESS/FOLLOWUP NOTE - 03/29/2006 MT: Letad-gbd-oiep amputation - right. Chronic pain - right lower extremity and multiple extremities. S: Patient states that it still hurts a lot. He went to see the pain doctor but that didnwork out. He wants me to call his angle bender in [place] and talk to him about the possibility of converting his BK to an AK, as he somehow has it his mind that this will help with his pain. I have not had an opportunity to do that yet, but intend to call him. O: Patients stump and prosthesis are in good condition. He is clear-headed and articulate today. 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 : No change. PL: Patient is given Percocet #150 of them. I also informed him today that this is the last time we are giving him any and that he needs to find someone else to handle his pain medication. He is scheduled to return here in about a month and we will have communicated with the angle bender by thattime. Signed by Vivek Cerna MD 04/04/2006 07:42 Valerie Areco MD Vivek Cerna MD - Vivek Cerna MD P - fmp Job ID: tape Document ID: [id number] cc: documented in this encounter Plan of Treatment Not on file documented as of this encounter Visit Diagnoses Not on filedocumented in this encounter
--- OUTSIDE RECORDS SUMMARY | 2024-02-29 09:06 | XMS_ITS | Encounter Summary ---
Author Organization [facility] Address [address] [place] [address] Care Team Providers Care Lawnmower Repair Mechanic Name Role Phone Anjum Cheung MD Primary Care Provider [phone] Encounter Details Date Type Department Care Team (Late st Contact Info) Description 10/01/[address] [facility] Orthopedic Trauma - [address] [address] Vivek Cerna MD [address] [place] [phone] Closed fracture of shaft of femur (HCC-CMS) (Primary Dx) Social History Tobacco Use Types Packs/Day Years Used Date Smoking Tobacco: Never Assessed Sex and Gender Information Value Date Recorded Sex Assigned at Not on file Gender Identity Male 04/10/2020 10:26 EST Sexual Orientation Not on file documented as of this encounter Plan of Treatment Not on file documented as of this encounter Visit Diagnoses Diagnosis Closed fracture of shaft of femur (HCC-CMS)- Primary Closed fracture of shaft of femur documented in this encounter Care Teams Lawnmower Repair Mechanic Relationship Specialty Start Date End Date Anjum Cheung MD [address] [place] [address] PCP - General 09/30/09 12/27/09 documented as of this encounter
--- OUTSIDE RECORDS SUMMARY | 2024-02-29 09:06 | XMS_ITS | Encounter Summary ---
Author Organization [facility] Address [address] [place] [address] Care Team Providers Care File Machine Operator Name Role Phone Unavailable Primary Care Provider Unavailabl e Encounter Details Date Type Department Care Team (Late st Contact Info) Description 04/26/2006 Before PRISM Converted Visit (Maple) [facility] - Maple conversion [address] [place] [address] Vivek Cerna MD [address] [place] [phone] Social History Tobacco Use Types Packs/Day Years Used Date Smoking Tobacco: Never Assessed Sex and Gender Information Value Date Recorded Sex Assigned at Not on file Gender Identity Male 04/10/2020 10:26 EST Sexual Orientation Not on file documented as of this encounter Progress Notes * Vivek Cerna MD - 05/05/2009 0339 EST Sports Medicine and Orthopaedic Trauma Department Medical Office Building [address] [place] [address], [address] [place] [address] PROGRESS/FOLLOWUP NOTE - 04/26/2006 DE: A 30 year old gentleman who is S/P multiple trauma. He has a jtoum-fon-okcg amputation on the right. He has chronic pain issues. He just finished cutting [place] trees, which was very strenuousfor him given his condition. That is now over. He also states that he fell, which greatly aggravated the pain he is having primarily in his right knee region. He is essentially here for new pain medicine prescription. He lives in [place], I believe. He still is not in a relationship with a primarycare physician; we have been working on that. O:his last visit, I spoke with Mr. Raoul barton at [facility], who agrees with naun revising the latsd-ngm-jwth amputation to an sdbyw-iry-disv amputation in general is a very bad idea. Mr. Barros seems to be off that program today. Anyway, I did make the effort in making the phone call. His stump is in good condition. His prosthesis is in good condition. : Chronic pain, antalgic gait bilaterally, radial nerve palsy - left hand. PL: Patient is given #150 Percocet and he is to make that last until he finds a PCP. He states thathe has found a gentleman that he thinks will care for him down near where he [place]. Signed by Vivek Cerna MD 05/02/2006 13:01 Valerie Arceo MD Vivek Cerna MD - MD Nehemiah A - fmp Job ID: tape Document ID: [id number] cc: Brittney Guardado MD documented in this encounter Plan of Treatment Not on file documented as of this encounter Visit Diagnoses Not on filedocumented in this encounter
--- OUTSIDE RECORDS SUMMARY | 2024-02-29 09:06 | XMS_ITS ---
Author Organization Unknown Address [address] [place] [address] [phone] Phone Care Team Providers Care Senior Compliance Analyst Name Role Phone ARACELY TENORIO Registered Nurse Unavailable TOM Rdz Attending Unavailable RAMIN Walsh Primary Unavailable TEMO Bee Xhandoff Unavailable UNLISTED PROVIDER - REQUESTED Xhandoff Un available Immunization Immunization Date Status Additional Notes Code Code System Tdap 10/03/2021 Completed 115 CVX Tdap 01/14/2022 Completed 115 [facility] - Alena ect Date/Time: 09/09/2021 14:00 [facility] ID: [id number] [address] [place] [address], [id number] LOINC: 78710-8 Test Value Unit Reference Range Code Code System Flag Tier- INPATIENT/ED 56936-8 LOINC SARS COV2 RNA: NEGATIVE REFERENCE RAN GE: NEGAT 91197-0 LOINC D-DIMER - Collect Date/Time: 09/09/2021 13:52 [facility] ID: [id number] [address] [place] [address], [address] LOINC: 38650-2 Test Value Unit Reference Range Code Code System Flag D-DIMER 6.46 mg/L L=0.19 H=0.50 82500-1 LOINC H TROPONIN HIGH SENSITIVITY* - Collect Date/Time: 09/09/2021 13:52 [facility] ID: [id number] [address] [place] [address], [address] LOINC: 74408-3 Test Value Unit Reference Range Code Code System Flag TROPONIN HS 6.4 pg/mL L=0.0 H=60.4 Specimen seq. Random COMPREHENSIVE METABOLIC PANE L (CMP) - Collect Date/Time: 09/09/2021 13:52 [facility] ID: [id number] [address] [place], [place], [address] LOINC: 77366-3 Test Value Unit Reference Range Code Code System Flag GLUCOSE 113 mg/dL L=70 H=116 2345-7 LOINC BUN 11 mg/dL L=6 H=25 3094-0 LOINC CREATININE 0.98 mg/dL L=0.67 H=1.17 2160-0 LOINC SODIUM SERUM 136 mmol/L L=136 H=145 2951-2 LOINC POTASSIUM SERUM 3.6 mmol/L L=3.4 H=5.2 2823-3 LOINC CHLORIDE SERUM 98 mmol/L L=96 H=110 2075-0 LOINC CARBON DIOXIDE (CO2) 28 mmol/L L=22 H=34 2028-9 LOINC ANION GAP 10.5 mmol/L 65156-9 LOINC CALCIUM SERUM 8.9 mg/dL L=8.2 H=10.2 35998-0 LOINC BILIRUBIN TOTAL 0.4 mg/dL L=0.0 H=1.3 1975-2 LOINC ALK. PHOS. 107 U/L L=46 H=116 6768-6 LOINC SGOT (AST) 8 U/L L=15 H=37 1920-8 LOINC L SGPT (ALT) 12 U/L L=12 H=78 1742-6 LOINC TOTAL PROTEIN 8.5 gm/dL L=6.0 H=8.0 2885-2 LOINC H ALBUMIN 3.8 gm/dL L=3.4 H=5.0 1751-7 LOINC AGE 46 years eGFR (non-Afr.Amer.) 82 mL/min 17163-2 LOINC eGFR (Afr-Danish) 99 mL/min 31419-3 LOINC CBC W/ DIFFERENTIAL* - Colle ct Date/Time: 09/09/2021 13:52 [facility] ID: [id number] [address] [place], [place], [address] LOINC: 48785-3 Test Value Unit Reference Range Code Code System Flag WBC 9.80 th/cmm L=5.00 H=10.00 6690-2 LOINC NEUT % 86.3 % L=40.0 H=80.0 H LYMPH % 8.2 % L=10.0 H=50.0 L MONO % 2.1 % L=2.0 H=12.0 06951-0 LOINC EOS % 1.7 % L=0.0 H=8.0 BASO % 1.2 % L=0.0 H=3.0 IG % 0.5 % L=0.0 H=1.1 2514-8 LOINC NRBC % 0.0 % L=0.0 H=0.0 73536-2 LOINC NEUT abs count 8.5 th/cmm L=1.6 H=8.4 751-8 LOINC H LYMPH abs count 0.8 th/cmm L=1.5 H=4.0 731-0 LOINC L MONO abs count 0.2 th/cmm L=0.2 H=1.0 742-7 LOINC EOS abs count 0.2 th/cmm L=0.0 H=0.5 711-2 LOINC BASO abs count 0.1 th/cmm L=0.0 H=0.2 704-7 LOINC IG abs count 0.1 th/cmm L=0.0 H=0.1 37009-2 LOINC NRBC abs count 0.0 mil/cmm L=0.0 H=0.0 65548-5 LOINC RBC 4.93 mil/cmm L=4.30 H=6.20 789-8 LOINC HEMOGLOBIN 16.8 gm/dL L=13.0 H=17.0 718-7 LOINC HEMATOCRIT 50 % L=45 H=52 4544-3 LOINC MCV 101 fL L=82 H=92 787-2 LOINC H MCH 34.1 pg L=27.0 H=31.0 785-6 LOINC H MCHC 33.7 % L=32.0 H=36.0 786-4 LOINC RDW-SD 55.1 fL L=39.0 H=49.0 788-0 LOINC H PLATELET COUNT 333 th/cmm L=150 H=450 777-[address] [facility] - Compl eted: 09/09/2021 17:33 LOINC: Radiation optimization:?? Al l CT scans at this facility use at least one of these dose optimization techniques: automated exposure control; mA and/or kV adjustment per patient size (includes targeted exams where dose is matched to clinical indication); or iterative reconstruction. CTA PULMONARY STUDY: PULMONARY ARTERIES: Less than optimal injection but no obvious intraluminal filling defects to suggest acute pulmonary emboli. LUNGS: COPD emphysematous changes. There are numerous bilateral calcified granulomas evident. There is some mild patchy infiltrate in both lung henriquez, not associated with pleural effusions. Recommend Covid testing. In the lateral segment of the right middle lobe there is a 5 mm nodule which appears noncalcified. However, this is most probably benign given that it does not appear to have significantly grown from the CT scan of 11/19/2019, almost two years. No pleural effusions. MEDIASTINUM: There is no significant hilar nor mediastinal adenopathy. There are non-pathologic calcified lymph nodes in the hilar regions and subcarinal region. No adenopathy in the anterior mediastinal fat. Thyroid exhibits normal size. There are multiple collateral venous channels over the right chest wall. CARDIAC: Heart size is upper normal. No pericardial effusion. Caliber of thoracic aorta is within normal limits. No dissection. Lowermost images reveal calcified granulomas in the spleen. No obvious adrenal masses. IMPRESSION: 1. No evidence of obvious acute pulmonary emboli nor aortic dissection. 2. COPD findings. Multiple calcified granulomas. Solitary stable noncalcified 5 mm nodule in the right middle lobe, unchanged from 10/2019 (almost two years). No pleural effusions. 3. Some patchy infiltrates noted bilaterally. Recommend Covid testing. Dictated by: KAVITA BIGGS MD Transcribed by: CARA 09/10/21/15:08 [id number] Electronically Reviewed and Signed By: KURT BIGGS MD 09/11/21 11:46 Copy for: 185 HEALTH INFORMATION MGMT DISCHARGED US DVT BILATERAL - Completed : 09/09/2021 17:21 LOINC: BILATERAL LEGS, DVT STUDY: Vanegas scale, color, and Doppler imaging of the deep venous system of the bilateral lower extremities were performed.?? There is no evidence of intraluminal thrombus and there is normal compression and augmentation demonstrated in the common femoral veins, femoral veins, and popliteal veins. Scanning below the level of the knees reveal no obvious thrombus within the posterior tibial veins.?? The saphenofemoral junctions appear patent. IMPRESSION: No ultrasound evidence of DVT in the bilateral lower extremity. Dictated by: KAVITA BIGGS MD Transcribed by: CARA 09/10/2114:58 [id number] Electronically Reviewed and Signed By: KURT BIGGS MD 09/11/21 11:45 Copy for: 185 HEALTH INFORMATION MGMT DISCHARGED XR CHEST 2V PA AND LATERAL - Completed: 09/09/2021 15:28 LOINC: CHEST, 2 VIEWS: Compared to 06/29/2021. Heart size normal and the mediastinum is not widened. Patchy infiltrates again noted bilaterally without significant improvement. Also plate-like atelectasis or scarring in the right lung base. No obvious pleural effusions. IMPRESSION: Persistent infiltrates. Recommend Covid testing. Dictated by: KAVITA BIGGS MD Transcribed by: CARA 09/10/21/09:43 [id number] Electronically Reviewed and Signed By: KURT BIGGS MD 09/11/21 11:45 Copy for: 185 HEALTH INFORMATION MGMT DISCHARGED Social History Type Status Start Date End Date Code Code Syst em Smoking History Current every day smoker 215629172 SNOMED CT Smoking History Light tobacco smoker [id number] Smoking History Smoker, current status unknown 30436312 SNOMED CT Sex Male Vital Signs Vital Sign Value Unit Donley Value Donley Unit Date/Time Recent/Initial? Code Code System Body Mass Index 26.88 kg/m2 09/09/2021 14:36 Initial 43230 -5 LOINC Systolic Blood Pressure 135 mm[Hg] 09/09/2021 18:22 Most Recent 8480- 6 LOINC Diastolic Blood Pressure 74 mm[Hg] 09/09/2021 18:22 Most Recent 8462- 4 LOINC Systolic Blood Pressure 138 mm[Hg] 09/09/2021 14:36 Initial 8480- 6 LOINC Diastolic Blood Pressure 87 mm[Hg] 09/09/2021 14:36 Initial 8462- 4 [facility] Body Surface Area 2.00 m2 09/09/2021 14:36 Initial 3140- 1 INC Height 175.260 0 cm 69.00 in 09/09/2021 14:36 Initial 8302- 2 INC O2 Saturation 92 % 2021 18:22 Most Recent 44807 -5 [facility] O2 Saturation 96 % 2021 14:36 Initial 01186 -5 [facility] Inhaled Oxygen Flow Rate 2.00 L/min 09/09/2021 14:36 Initial 3151- 8 [facility] Pulse 74.0 /min 09/09/2021 18:22 Most Recent 8867- 4 [facility] Pulse 102.0 /min 09/09/2021 14:36 Initial 8867- 4 INC Respiration 21 /min 09/10/19 18:22 Most Recent 9279- 1 [facility] Respiration 24 /min 09/10/19 14:36 Initial 9279- 1 [facility] Temperature 37.1 Regina 98.8 F 09/10/19 14:36 Initial 8310- 5 [facility] Weight 82.55 kg 182.00 lbs 09/09/2021 14:36 Initial 60627 -7 [facility] Medications Medication Start Date End Date Route Frequency Dose Code Code System Medication Instructions Home Meds Mapap 325MG Oral Tablet 03/07/2018 10/03/2021 BY MOUTH NEEDED EVERY 4 HOURS 650 MILLIGRAMS 194977 RxNorm TAKE 650 MILLIGRAMS BY MOUTH NEEDED EVERY 4 HOURS Lisinopri l 20MG Oral Tablet 04/01/2019 12/01/2022 ORAL DAILY 20 MILLIGRAMS 903826 RxNorm TAKE 20 MILLIGRAMS ORAL DAILY Ipratropi um Derwood-A lbuterol Sulfate 0.5MG/3ML -3MG/3ML Inhalatio n Solution 04/01/2019 10/03/2021 INHALATI ON FOUR TIMES A DAY 1 unit(s) 0164368 RxNorm 1 EACH INHALATION FOUR TIMES A DAY ProAir HFA 0.09MG/1A ctuation Inhalatio n Suspensio n 04/01/2019 05/12/2022 INHALATI ON NEEDED FOUR TIMES A DAY 2 unit(s) 457772 RxNorm 2 EACH INHALATION NEEDED FOUR TIMES A DAY Pregabali n 200MG Oral Capsule 04/01/2019 07/27/2023 ORAL THREE TIMES A DAY 200 MILLIGRAMS 449403 RxNorm TAKE 200 MILLIGRAMS ORAL THREE TIMES A DAY QUEtiapin e Fumarate 300MG Oral Tablet 10/22/2019 05/12/2022 ORAL BEDTIME 300 MILLIGRAMS 095312 RxNorm TAKE 300 MILLIGRAMS ORAL BEDTIME DULoxetin e HCl 60MG Oral Capsule, Delayed Release 10/22/2019 07/27/2023 ORAL DAILY 60 MILLIGRAMS 448751 RxNorm TAKE 60 MILLIGRAMS ORAL DAILY Nicoderm CQ 14MG/24HR Transderm al Patch, Extended Release 01/15/2021 02/12/2022 TRANSDER MAL DAILY 1 unit(s) RxNorm APPLY 1 EACH TRANSDERMAL DAILY Cefpodoxi me Proxetil 200MG Oral Tablet 01/15/2021 10/03/2021 ORAL TWICE A DAY 1 TABLET 776081 RxNorm TAKE 1 TABLET ORAL TWICE A DAY Cefpodoxi me Proxetil 200MG Oral Tablet 01/15/2021 10/03/2021 ORAL TWICE A DAY 1 TABLET 243963 RxNorm TAKE 1 TABLET ORAL TWICE A DAY predniSON E 10MG Oral Tablet 01/15/2021 10/03/2021 ORAL DAILY 2 TABLET 787825 RxNorm TAKE 2 TABLET ORAL DAILY x 7 days then 1 tab daily x 7 days then stop Azithromy jennifer 250MG Oral Tablet 01/15/2021 10/03/2021 ORAL DAILY 250 MILLIGRAMS 989175 RxNorm TAKE 250 MILLIGRAMS ORAL DAILY Anoro Ellipta 62.5MCG-2 5MCG/1ACT Inhalatio n Powder 01/15/2021 10/03/2021 INHALATI ON 1 unit(s) 1319926 RxNorm 1 EACH INHALATION Flovent 0.22MG/Ac tuation Inhalatio n Aerosol Powder 01/15/2021 10/03/2021 INHALATI ON TWICE A DAY 2 PUFF 041123 RxNorm 2 PUFF INHALATION TWICE A DAY Ibuprofen 200MG Oral Tablet 01/15/2021 11/25/2022 ORAL NEEDED THREE TIMES A DAY 600 MILLIGRAMS 294868 RxNorm TAKE 600 MILLIGRAMS ORAL NEEDED THREE TIMES A DAY LORazepam 0.5MG Oral Tablet 01/15/2021 05/12/2022 ORAL NEEDED TWICE DAILY 0.5 MILLIGRAMS 504054 RxNorm TAKE 0.5 MILLIGRAMS ORAL NEEDED TWICE DAILY Methadone HCl 10MG/1ML Oral Solution 01/15/2021 10/03/2021 ORAL DAILY 13.2 mL 271300 RxNorm TAKE 13.2 mL ORAL DAILY predniSON E 20MG Oral Tablet 10/05/2021 11/14/2021 ORAL DAILY WITH FOOD 20 MILLIGRAMS 823393 RxNorm TAKE 20 MILLIGRAMS ORAL DAILY WITH FOOD Albuterol Sulfate 0.083% Inhalatio n Solution 10/05/2021 11/25/2022 INHALATI ON NEEDED EVERY 4 HOURS 1 unit(s) 651145 RxNorm 1 EACH INHALATION NEEDED EVERY 4 HOURS Anoro Ellipta 62.5MCG-2 5MCG/1ACT Inhalatio n Powder 10/05/2021 07/27/2023 INHALATI ON TWICE A DAY 1 PUFF 5153117 RxNorm 1 PUFF INHALATION TWICE A DAY Methadone HCl 40MG Oral Tablet for Suspensio n 10/05/2021 07/27/2023 ORAL DAILY 132 MILLIGRAMS 866074 RxNorm TAKE 132 MILLIGRAMS ORAL DAILY Cephalexi n 500MG Oral Capsule 10/05/2021 11/14/2021 ORAL THREE TIMES A DAY 1 CAPSULE 776437 RxNorm TAKE 1 CAPSULE ORAL THREE TIMES A DAY Doxycycli ne 100MG Oral Capsule 12/10/2021 12/21/2021 ORAL TWICE A DAY 1 CAPSULE 4153978 RxNorm TAKE 1 CAPSULE ORAL TWICE A DAY Zonisamid e 100MG Oral Capsule 12/22/2021 05/12/2022 ORAL TWICE A DAY 100 MILLIGRAMS 247401 RxNorm TAKE 100 MILLIGRAMS ORAL TWICE A DAY Keflex 500MG Oral Capsule 01/14/2022 02/12/2022 ORAL THREE TIMES A DAY 1 CAPSULE 829937 RxNorm TAKE 1 CAPSULE ORAL THREE TIMES A DAY predniSON E 10MG Oral Tablet 02/16/2022 11/25/2022 ORAL THREE TIMES A DAY WITH FOOD 10 MILLIGRAMS 083534 RxNorm TAKE 10 MILLIGRAMS ORAL THREE TIMES A DAY WITH FOOD SEROquel 300MG Oral Tablet 02/16/2022 12/22/2022 ORAL BEDTIME 300 MILLIGRAMS 702989 RxNorm TAKE 300 MILLIGRAMS ORAL BEDTIME Cephalexi n 500MG Oral Capsule 02/16/2022 02/16/2022 ORAL THREE TIMES A DAY 1 CAPSULE 827820 RxNorm TAKE 1 CAPSULE ORAL THREE TIMES A DAY Cephalexi n 500MG Oral Capsule 02/16/2022 05/12/2022 ORAL THREE TIMES A DAY 1 CAPSULE 791230 RxNorm TAKE 1 CAPSULE ORAL THREE TIMES A DAY MiraLAX 17GM/1Dos e Oral Powder for Solution 05/12/2022 11/25/2022 ORAL DAILY 17 GRAM 244758 RxNorm TAKE 17 G PAT ORAL DAILY Zonisamid e 100MG Oral Capsule 12/01/2022 07/27/2023 ORAL DAILY 200 MILLIGRAMS 799875 RxNorm TAKE 200 MILLIGRAMS ORAL DAILY Cefpodoxi me Proxetil 200MG Oral Tablet 12/01/2022 12/22/2022 ORAL EVERY 12 HOURS 200 MILLIGRAMS 027874 RxNorm TAKE 200 MILLIGRAMS ORAL EVERY 12 HOURS Ibuprofen 600MG Oral Tablet 12/01/2022 07/27/2023 ORAL NEEDED THREE TIMES A DAY 600 MILLIGRAMS 441233 RxNorm TAKE 600 MILLIGRAMS ORAL NEEDED THREE TIMES A DAY FOR PAIN Combivent Respimat 100MCG-20 MCG/1Act Inhalatio n [place] 12/01/2022 07/27/2023 INHALATI ON NEEDED EVERY 8 HOURS 1 unit(s) 0563824 RxNorm 1 EACH INHALATION NEEDED EVERY 8 HOURS Depo-Test osterone Novaplus 200MG/1ML Intramusc ular Oil 12/01/2022 07/27/2023 INTRAMUS CULAR 1 unit(s) 629801 RxNorm INJECT 1 EACH INTRAMUSCULA R Flovent 0.22MG/1A ctuation Inhalatio n Aerosol Powder 12/01/2022 07/27/2023 INHALATI ON TWICE A DAY 1 unit(s) 990354 RxNorm 1 EACH INHALATION TWICE A DAY Ventolin HFA 0.09MG/1A ctuation Inhalatio n Suspensio n 12/01/2022 07/27/2023 INHALATI ON 1 unit(s) 672045 RxNorm 1 EACH INHALATION guaiFENes in 600MG Oral Tablet, Extended Release 12/01/2022 12/01/2022 ORAL NEEDED TWICE DAILY 1 TABLET 409384 RxNorm TAKE 1 TABLET ORAL NEEDED TWICE DAILY FOR COUGH predniSON E 10MG Oral Tablet 12/01/2022 12/01/2022 ORAL DAILY 2 TABLET 244532 RxNorm TAKE 2 TABLET ORAL DAILY X 5 DAYS THEN 1 TAB DAILY X 5 DAYS THEN STOP guaiFENes in 600MG Oral Tablet, Extended Release 12/01/2022 07/27/2023 ORAL NEEDED TWICE DAILY 1 TABLET 598363 RxNorm TAKE 1 TABLET ORAL NEEDED TWICE DAILY FOR COUGH predniSON E 10MG Oral Tablet 12/01/2022 12/22/2022 ORAL DAILY 2 TABLET 607120 RxNorm TAKE 2 TABLET ORAL DAILY X 5 DAYS THEN 1 TAB DAILY X 5 DAYS THEN STOP Acetamino phen 500MG Oral Tablet 12/01/2022 07/27/2023 ORAL NEEDED THREE TIMES A DAY 2 TABLET 094120 RxNorm TAKE 2 TABLET ORAL NEEDED THREE TIMES A DAY FOR PAIN Lisinopri l 40MG Oral Tablet 12/01/2022 07/27/2023 ORAL DAILY 1 TABLET 043037 RxNorm TAKE 1 TABLET ORAL DAILY predniSON E 20MG Oral Tablet 12/22/2022 04/02/2023 ORAL DAILY 1 TABLET 030953 RxNorm TAKE 3 TABLETS DAILY FOR 3 DAYS, THEN 2 TABLETS DAILY FOR 3 DAYS, THEN 1 TABLET DAILY FOR 3 DAYS Narcan 4MG/0.1ML Nasal [place] 12/30/2022 07/27/2023 NASAL NEEDED 1 SPRAY 4825452 RxNorm SPRAY 1 SPRAY NASAL NEEDED FOR OPIATE OVERDOSE Albuterol Sulfate 0.09MG/1A ctuation Inhalatio n Suspensio n 12/30/2022 07/27/2023 INHALATI ON NEEDED EVERY 4 HOURS 2 PUFF 0645197 RxNorm 2 PUFF INHALATION NEEDED EVERY 4 HOURS FOR Shortness of breath Cefpodoxi me Proxetil 200MG Oral Tablet 04/05/2023 06/04/2023 ORAL TWICE A DAY 1 TABLET 539481 RxNorm TAKE 1 TABLET ORAL TWICE A DAY QUEtiapin e 300MG Oral Tablet 04/05/2023 07/27/2023 ORAL BEDTIME 300 MILLIGRAMS 168953 RxNorm TAKE 300 MILLIGRAMS ORAL BEDTIME predniSON E 10MG Oral Tablet 04/05/2023 06/04/2023 ORAL TWICE A DAY 2 TABLET 654505 RxNorm TAKE 2 TABLET ORAL TWICE A DAY for 3 days then 2 tabs daily x 3 days then 1 tab daily x 3 days Senna Plus 50MG-8.6M G Oral Tablet 04/05/2023 07/27/2023 ORAL TWICE A DAY 2 TABLET 463327 RxNorm TAKE 2 TABLET ORAL TWICE A DAY busPIRone 15MG Oral Tablet 04/05/2023 07/27/2023 ORAL THREE TIMES A DAY 15 MILLIGRAMS 962977 RxNorm TAKE 15 MILLIGRAMS ORAL THREE TIMES A DAY oxygen 04/05/2023 Unknown ORAL continuo us 3 LITERS RxNorm TAKE 3 LITERS ORAL continuous Milk Of Magnesia 400MG/5ML Oral Suspensio n 06/13/2023 07/27/2023 ORAL NEEDED DAILY 30 mL 777413 RxNorm TAKE 30 mL ORAL NEEDED DAILY predniSON E 20MG Oral Tablet 07/27/2023 10/16/2023 ORAL DAILY 2 TABLET 252511 RxNorm TAKE 2 TABLET ORAL DAILY predniSON E 20MG Oral Tablet 09/15/2023 10/16/2023 ORAL DAILY 2 TABLET 083809 RxNorm TAKE 2 TABLET ORAL DAILY Ibuprofen 200MG Oral Tablet 10/22/2023 Unknown ORAL NEEDED THREE TIMES A DAY 3 TABLET 873672 RxNorm TAKE 3 TABLET ORAL NEEDED THREE TIMES A DAY predniSON E 10MG Oral Tablet 10/22/2023 12/01/2023 ORAL TWICE A DAY 2 TABLET 981100 RxNorm TAKE 2 TABLET ORAL TWICE A DAY x 3 days then 1 tab twice a day x 5 days then 1 tab daily LORazepam 1MG Oral Tablet 10/22/2023 Unknown ORAL NEEDED TWICE DAILY 1 MILLIGRAMS 597589 RxNorm TAKE 1 MILLIGRAMS ORAL NEEDED TWICE DAILY Cefpodoxi me Proxetil 200MG Oral Tablet 10/22/2023 11/28/2023 ORAL EVERY 12 HOURS 200 MILLIGRAMS 627172 RxNorm TAKE 200 MILLIGRAMS ORAL EVERY 12 HOURS Anoro Ellipta 62.5MCG-2 5MCG/1ACT Inhalatio n Powder 10/22/2023 Unknown INHALATI ON DAILY 1 GRAM 8438287 RxNorm 1 GRAM INHALATION DAILY DULoxetin e HCl 60MG Oral Capsule, Delayed Release 10/22/2023 Unknown ORAL DAILY 60 MILLIGRAMS 543843 RxNorm TAKE 60 MILLIGRAMS ORAL DAILY Linzess 145MCG Oral Capsule 10/22/2023 10/27/2023 ORAL DAILY 1 unit(s) 9231824 RxNorm TAKE 1 E ACH ORAL DAILY Lisinopri l 40MG Oral Tablet 10/22/2023 Unknown ORAL DAILY 40 MILLIGRAMS 052821 RxNorm TAKE 40 MILLIGRAMS ORAL DAILY Methadone 10MG Oral Tablet 10/22/2023 Unknown ORAL DAILY 132 MILLIGRAMS RxNorm TAKE 132 MILLIGRAMS ORAL DAILY Pregabali n 200MG Oral Capsule 10/22/2023 Unknown ORAL THREE TIMES A DAY 200 MILLIGRAMS 423824 RxNorm TAKE 200 MILLIGRAMS ORAL THREE TIMES A DAY QUEtiapin e Fumarate 300MG Oral Tablet 10/22/2023 Unknown ORAL BEDTIME 300 MILLIGRAMS 499201 RxNorm TAKE 300 MILLIGRAMS ORAL BEDTIME Testoster one Cypionate 200MG/1ML Intramusc ular Oil 10/22/2023 Unknown 4106619 RxNorm As directed Ventolin HFA 0.09MG/1A ctuation Inhalatio n Suspensio n 10/22/2023 Unknown INHALATI ON NEEDED EVERY 4 HOURS 2 PUFF 211111 RxNorm 2 PUFF INHALATION NEEDED EVERY 4 HOURS Acetamino phen 500MG Oral Tablet 10/22/2023 Unknown ORAL THREE TIMES A DAY 2 TABLET RxNorm TAKE 2 TABLET ORAL THREE TIMES A DAY predniSON E 10MG Oral Tablet 12/01/2023 12/07/2023 ORAL DAILY 4 TABLET 310121 RxNorm TAKE 4 TABLET ORAL DAILY x 3 days then 2 tabs daily x 3 days then 1 tab daily x 7 days Cefpodoxi me Proxetil 200MG Oral Tablet 12/01/2023 12/07/2023 ORAL TWICE A DAY 1 TABLET 632519 RxNorm TAKE 1 TABLET ORAL TWICE A DAY levoFLOXa jennifer 750MG Oral Tablet 12/25/2023 Unknown ORAL DAILY 1 TABLET 462527 RxNorm TAKE 1 TABLET ORAL DAILY predniSON E 50MG Oral Tablet 12/25/2023 Unknown ORAL DAILY 1 TABLET 122830 RxNorm TAKE 1 TABLET ORAL DAILY Assessment You had the following problems:PNEUMONIAPOLYSUBSTANCE ABUSEACUTE AND CHRONIC RESPIRATORY FAILURE WITH HYPERCAPNIAACUTE AND CHRONIC RESPIRATORY FAILURE WITH HYPOXIACOPD WITH EXACERBATIONALCOHOL USE WITH WITHDRAWAL Hospital Discharge Instructions Should you have any questions prior to discharge, please contact a member of your healthcare team. If you have left the hospital and have any questions, please contact your primary care physician. Reason For Referral No Data Found Problems Problem Start Date Resolved Date Status Code Code System PNEUMONIA active [id number] SNOMED-CT POLYSUBSTANCE ABUSE active 722920038 SNOMED-CT ACUTE AND CHRONIC RESPIRATORY FAILURE WITH HYPERCAPNIA active 4442983768952 SNOMED-CT ACUTE AND CHRONIC RESPIRATORY FAILURE WITH HYPOXIA active 95027500 SNOMED-CT COPD WITH EXACERBATION active 6560646 07 SNOMED-CT ALCOHOL USE WITH WITHDRAWAL active 943128848 SNOMED-CT CHRONIC RESPIRATORY FAILURE WITH HYPOXIA 10/03/2021 resolved 28291353 SNOMED- CT OTHER SEIZURES 10/03/2021 resolved 18698278 SNOM ED-CT PULMONARY NODULE 10/03/2021 resolved 779426049 SN OMED-CT CHRONIC HEPATITIS C 10/03/2021 resolved 621202567 SNOMED-CT ANXIETY DISORDER 10/03/2021 resolved 025939437 SN OMED-CT 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 10/03/2021 resolved 925131350140997 SNOME D-CT NICOTINE DEPENDENCE 01/13/2021 resolved 62468815 SNOMED-CT VENOUS INSUFFICIENCY 10/03/2021 resolved 17614092 SNOMED-CT ALCOHOL INTOXICATION 11/26/2022 resolved 90144893 SNOMED-CT AMS 11/26/2022 resolved 307259577 SNOMED-CT HYPOKALEMIA 11/26/2022 resolved 87874298 SNOMED- CT OPIATE TOXICITY 06/04/2023 resolved 818510271 SNO MED-CT ACUTE ALCOHOL INTOXICATION 04/01/2023 resolved 6504523365 SNOMED-CT FEVER 06/04/2023 resolved 896384399 SNOMED-CT ALTERED MENTAL STATUS 06/04/2023 resolved 3093057 04 SNOMED-CT CHRONIC HEADACHE DISORDER 10/03/2021 resolved 646147941 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 410112 00 SNOMED-CT ALCOHOL DEPENDENCE WITH WITHDRAWAL 01/13/2021 resolved 30498318 SNOMED-CT HTN 10/03/2021 resolved 79859175 SNOMED-CT COPD 09/09/2021 resolved 14796255 SNOMED-CT HIGH CHOLESTEROL 09/09/2021 resolved 07735793 SN OMED-CT Allergies and Adverse Reactions Allergy Substance Reaction Severity Start Date Concern Status Code Code System PCN (penicillin) Anaphylaxis (SNOMED-CT: 01766539) Moderate Active 0448004 SNOMED-CT Plan of Treatment X-RAY 03/21/2022 MRI BRAIN W WO CONTRAST 12/06/2021 MRI BRAIN W WO CONTRAST 11/30/2021 LAB DRAW 15MIN 05/13/2021 Encounters Encounter Diagnosis Start Date Code Code Sys tem Chest pain, unspecified 09/09/2021 SNOM ED-CT Personal Care Team Section Performer Name Performer Role Active Date Inactive Da elias
--- OUTSIDE RECORDS SUMMARY | 2024-02-29 09:06 | XMS_ITS | Encounter Summary ---
Author Organization [facility] Address [address] [place] [address] Care Team Providers Care Sign Poster Name Role Phone Giovanni Roberts PA-C Primary Care Provider [phone] Reason for Visit * Reason Onset Date Comments Medications Refill 08/01/2012 Encounter Details Date Type Department Care Team (Late st Contact Info) Description 08/01/2012 Refill [facility] [place] [address] Rubina Diez LPN [address] [place] [address] Medications Refill Social History Tobacco Use Types [...] as needed for Pain. 120 Tab 0 08/01/2012 08/15/2012 documented in this encounter Miscellaneous Notes * Telephone Encounter - Rubina Diez LPN - 08/01/2012 1522 EDT Edd is calling to ask for a refill of Percocet, as well as another appt. He says the pain has been worse since the fall about 2 months ago, and he had had to take more Percocet than he had been taking before that fall. I'm pending this request to Dr. Cerna, and I made another appt for Edd on 08/16. Rubina Diez LPN 15:24 documented in this encounter Plan of Treatment Not on file documented as of this encounter Visit Diagnoses Not on filedocumented in this encounter Discontinued Medications Medication Sig Discontinue Reason Start Date End Da te oxycodone-acetaminophen (PERCOCET) 5-325 mg per tablet Take 1 Tab by mouth every 4 hours as needed for Pain. Reorder 07/09/2012 08/01/2012 documented as of this encounter Care Teams Sign Poster Relationship Specialty Start Date End Date Giovanni Roberts PA-C [address] [place] [id number] PCP - General 06/21/12 12/27/15 documented as of this encounter
--- OUTSIDE RECORDS SUMMARY | 2024-02-29 09:06 | XMS_ITS | Encounter Summary ---
Author Organization [facility] Address [address] [place] [address] Care Team Providers Care Signalling And Communications Engineer Name Role Phone Anjum Cheung MD Primary Care Provider [phone] Encounter Details Date Type Department Care Team (Late st Contact Info) Description 10/27/2009 Orders Only [facility] Orthopedic Trauma - [address] [address] Vivek Cerna MD [address] [place] [phone] Closed fracture of shaft of femur [...] femur documented in this encounter Care Teams Signalling And Communications Engineer Relationship Specialty Start Date End Date Anjum Cheung MD [address] [place] [address] PCP - General 09/30/09 12/27/09 documented as of this encounter
--- OUTSIDE RECORDS SUMMARY | 2024-02-29 09:06 | XMS_ITS | Encounter Summary ---
Author Organization [facility] Address [address] [place] [address] Care Team Providers Care Immunohematologist Name Role Phone Unavailable Primary Care Provider Unavailabl e Encounter Details Date Type Department Care Team (Latest Contact Info) Description 02/06/2004 10:02 EDT - 02/06/2004 11:59 EDT Hospital Encounter [facility] - Maple conversion [address] [place] [address] Vivek Cerna MD [address] [place] [phone] Discharge Disposition: Auto Discharge Social History [...] Diagnosis Comments TIBIA FIBULA 2 VIEWS Routine 02/06/2004 9:25 EDT documented in this encounter Results * TIBIA FIBULA 2 VIEWS (02/06/2004 9:25 EDT) Anatomical Region Laterality Modality Other 02/06/2004 9:25 EDT Narrative 01/01/2009 14:23 EDT LT TIB FX / PAIN, DOI 1994 R/O ASSESS HEALING / BONY ABN. LEFT LOWER LE02/06/04 COMPARISON: 01/12/99 Two views. There is an old healed fracture deformity of the proximal tibia diaphysis. The intramedullary noelle present on the prior examination has been removed. No acute fracture is seen. /alix Procedure Note Will Levy MD - 01/01/2009 LT TIB FX / PAIN, DOI 1994 R/O ASSESS HEALING / BONY ABN. LEFT LOWER LE02/06/04 COMPARISON: 01/12/99 Two views. There is an old healed fracture deformity of the proximal tibia diaphysis. The intramedullary noelle present on the prior examination has been removed. No acute fracture is seen. /alix Vivek Cerna MD IMG DIAGNOSTIC I MAGING ORDERABLES documented in this encounter Visit Diagnoses Not on filedocumented in this encounter
--- OUTSIDE RECORDS SUMMARY | 2024-02-29 09:06 | XMS_ITS | Encounter Summary ---
Author Organization [facility] Address [address] [place] [address] Care Team Providers Care Newspaper Correspondent Name Role Phone Unavailable Primary Care Provider Unavailabl e Encounter Details Date Type Department Care Team (Late st Contact Info) Description 08/11/2009 Abstract [facility] [address] [place], [place] [address] Unknown, Provider, Social History Tobacco Use Types [...]
--- OUTSIDE RECORDS SUMMARY | 2024-02-29 09:06 | XMS_ITS ---
Author Organization Unknown Address [address] [place] [phone] Phone Care Team Providers Care Bull Driver Name Role Phone RAMIN Walsh Attending Unavailable Immunization Immunization Date Status Additional Notes Code Code System Tdap 10/03/2021 Completed 115 CVX Tdap 01/14/2022 Completed 115 CVX Results TESTOSTERONE TOTAL - Collect Date/Time: 05/13/2021 09:33 [facility] ID: [id number] [address] [place], [place], [id number] LOINC: 2986-8 Test Value Unit Reference Range Code Code System Flag Testosterone 212 229-902 L Social History Type Status Start Date End Date Code Code Syst em Smoking History Current every day smoker 853285289 SNOMED CT Smoking History Light tobacco smoker [id number] Smoking History Smoker, current status unknown 04438527 SNOMED CT Sex Male Medications Medication Start Date End Date Route Frequency Dose Code Code System Medication Instructions Home Meds Mapap 325MG Oral Tablet 03/07/2018 10/03/2021 BY MOUTH NEEDED EVERY 4 HOURS 650 MILLIGRAMS 655770 RxNorm TAKE 650 MILLIGRAMS BY MOUTH NEEDED EVERY 4 HOURS Lisinopri l 20MG Oral Tablet 04/01/2019 12/01/2022 ORAL DAILY 20 MILLIGRAMS 274450 RxNorm TAKE 20 MILLIGRAMS ORAL DAILY Ipratropi um [place]-A lbuterol Sulfate 0.5MG/3ML -3MG/3ML Inhalatio n Solution 04/01/2019 10/03/2021 INHALATI ON FOUR TIMES A DAY 1 unit(s) 7301280 RxNorm 1 EACH INHALATION FOUR TIMES A DAY ProAir HFA 0.09MG/1A ctuation Inhalatio n Suspensio n 04/01/2019 05/12/2022 INHALATI ON NEEDED FOUR TIMES A DAY 2 unit(s) 301807 RxNorm 2 EACH INHALATION NEEDED FOUR TIMES A DAY Pregabali n 200MG Oral Capsule 04/01/2019 07/27/2023 ORAL THREE TIMES A DAY 200 MILLIGRAMS 143245 RxNorm TAKE 200 MILLIGRAMS ORAL THREE TIMES A DAY QUEtiapin e Fumarate 300MG Oral Tablet 10/22/2019 05/12/2022 ORAL BEDTIME 300 MILLIGRAMS 268466 RxNorm TAKE 300 MILLIGRAMS ORAL BEDTIME DULoxetin e HCl 60MG Oral Capsule, Delayed Release 10/22/2019 07/27/2023 ORAL DAILY 60 MILLIGRAMS 122618 RxNorm TAKE 60 MILLIGRAMS ORAL DAILY Nicoderm CQ 14MG/24HR Transderm al Patch, Extended Release 01/15/2021 02/12/2022 TRANSDER MAL DAILY 1 unit(s) RxNorm APPLY 1 EACH TRANSDERMAL DAILY Cefpodoxi me Proxetil 200MG Oral Tablet 01/15/2021 10/03/2021 ORAL TWICE A DAY 1 TABLET 140939 RxNorm TAKE 1 TABLET ORAL TWICE A DAY Cefpodoxi me Proxetil 200MG Oral Tablet 01/15/2021 10/03/2021 ORAL TWICE A DAY 1 TABLET 010281 RxNorm TAKE 1 TABLET ORAL TWICE A DAY predniSON E 10MG Oral Tablet 01/15/2021 10/03/2021 ORAL DAILY 2 TABLET 311194 RxNorm TAKE 2 TABLET ORAL DAILY x 7 days then 1 tab daily x 7 days then stop Azithromy jennifer 250MG Oral Tablet 01/15/2021 10/03/2021 ORAL DAILY 250 MILLIGRAMS 128169 RxNorm TAKE 250 MILLIGRAMS ORAL DAILY Anoro Ellipta 62.5MCG-2 5MCG/1ACT Inhalatio n Powder 01/15/2021 10/03/2021 INHALATI ON 1 unit(s) 5439924 RxNorm 1 EACH INHALATION Flovent 0.22MG/Ac tuation Inhalatio n Aerosol Powder 01/15/2021 10/03/2021 INHALATI ON TWICE A DAY 2 PUFF 850051 RxNorm 2 PUFF INHALATION TWICE A DAY Ibuprofen 200MG Oral Tablet 01/15/2021 11/25/2022 ORAL NEEDED THREE TIMES A DAY 600 MILLIGRAMS 083792 RxNorm TAKE 600 MILLIGRAMS ORAL NEEDED THREE TIMES A DAY LORazepam 0.5MG Oral Tablet 01/15/2021 05/12/2022 ORAL NEEDED TWICE DAILY 0.5 MILLIGRAMS 588646 RxNorm TAKE 0.5 MILLIGRAMS ORAL NEEDED TWICE DAILY Methadone HCl 10MG/1ML Oral Solution 01/15/2021 10/03/2021 ORAL DAILY 13.2 mL 298524 RxNorm TAKE 13.2 mL ORAL DAILY predniSON E 20MG Oral Tablet 10/05/2021 11/14/2021 ORAL DAILY WITH FOOD 20 MILLIGRAMS 222269 RxNorm TAKE 20 MILLIGRAMS ORAL DAILY WITH FOOD Albuterol Sulfate 0.083% Inhalatio n Solution 10/05/2021 11/25/2022 INHALATI ON NEEDED EVERY 4 HOURS 1 unit(s) 174214 RxNorm 1 EACH INHALATION NEEDED EVERY 4 HOURS Anoro Ellipta 62.5MCG-2 5MCG/1ACT Inhalatio n Powder 10/05/2021 07/27/2023 INHALATI ON TWICE A DAY 1 PUFF 7392511 RxNorm 1 PUFF INHALATION TWICE A DAY Methadone HCl 40MG Oral Tablet for Suspensio n 10/05/2021 07/27/2023 ORAL DAILY 132 MILLIGRAMS 818452 RxNorm TAKE 132 MILLIGRAMS ORAL DAILY Cephalexi n 500MG Oral Capsule 10/05/2021 11/14/2021 ORAL THREE TIMES A DAY 1 CAPSULE 896176 RxNorm TAKE 1 CAPSULE ORAL THREE TIMES A DAY Doxycycli ne 100MG Oral Capsule 12/10/2021 12/21/2021 ORAL TWICE A DAY 1 CAPSULE 4070080 RxNorm TAKE 1 CAPSULE ORAL TWICE A DAY Zonisamid e 100MG Oral Capsule 12/22/2021 05/12/2022 ORAL TWICE A DAY 100 MILLIGRAMS 375912 RxNorm TAKE 100 MILLIGRAMS ORAL TWICE A DAY Keflex 500MG Oral Capsule 01/14/2022 02/12/2022 ORAL THREE TIMES A DAY 1 CAPSULE 670087 RxNorm TAKE 1 CAPSULE ORAL THREE TIMES A DAY predniSON E 10MG Oral Tablet 02/16/2022 11/25/2022 ORAL THREE TIMES A DAY WITH FOOD 10 MILLIGRAMS 782423 RxNorm TAKE 10 MILLIGRAMS ORAL THREE TIMES A DAY WITH FOOD SEROquel 300MG Oral Tablet 02/16/2022 12/22/2022 ORAL BEDTIME 300 MILLIGRAMS 376800 RxNorm TAKE 300 MILLIGRAMS ORAL BEDTIME Cephalexi n 500MG Oral Capsule 02/16/2022 02/16/2022 ORAL THREE TIMES A DAY 1 CAPSULE 398167 RxNorm TAKE 1 CAPSULE ORAL THREE TIMES A DAY Cephalexi n 500MG Oral Capsule 02/16/2022 05/12/2022 ORAL THREE TIMES A DAY 1 CAPSULE 441441 RxNorm TAKE 1 CAPSULE ORAL THREE TIMES A DAY MiraLAX 17GM/1Dos e Oral Powder for Solution 05/12/2022 11/25/2022 ORAL DAILY 17 GRAM 699932 RxNorm TAKE 17 G PAT ORAL DAILY Zonisamid e 100MG Oral Capsule 12/01/2022 07/27/2023 ORAL DAILY 200 MILLIGRAMS 408729 RxNorm TAKE 200 MILLIGRAMS ORAL DAILY Cefpodoxi me Proxetil 200MG Oral Tablet 12/01/2022 12/22/2022 ORAL EVERY 12 HOURS 200 MILLIGRAMS 068067 RxNorm TAKE 200 MILLIGRAMS ORAL EVERY 12 HOURS Ibuprofen 600MG Oral Tablet 12/01/2022 07/27/2023 ORAL NEEDED THREE TIMES A DAY 600 MILLIGRAMS 414804 RxNorm TAKE 600 MILLIGRAMS ORAL NEEDED THREE TIMES A DAY FOR PAIN Combivent Respimat 100MCG-20 MCG/1Act Inhalatio n [place] 12/01/2022 07/27/2023 INHALATI ON NEEDED EVERY 8 HOURS 1 unit(s) 5871121 RxNorm 1 EACH INHALATION NEEDED EVERY 8 HOURS Depo-Test osterone Novaplus 200MG/1ML Intramusc ular Oil 12/01/2022 07/27/2023 INTRAMUS CULAR 1 unit(s) 933194 RxNorm INJECT 1 EACH INTRAMUSCULA R Flovent 0.22MG/1A ctuation Inhalatio n Aerosol Powder 12/01/2022 07/27/2023 INHALATI ON TWICE A DAY 1 unit(s) 802867 RxNorm 1 EACH INHALATION TWICE A DAY Ventolin HFA 0.09MG/1A ctuation Inhalatio n Suspensio n 12/01/2022 07/27/2023 INHALATI ON 1 unit(s) 115220 RxNorm 1 EACH INHALATION guaiFENes in 600MG Oral Tablet, Extended Release 12/01/2022 12/01/2022 ORAL NEEDED TWICE DAILY 1 TABLET 280535 RxNorm TAKE 1 TABLET ORAL NEEDED TWICE DAILY FOR COUGH predniSON E 10MG Oral Tablet 12/01/2022 12/01/2022 ORAL DAILY 2 TABLET 506639 RxNorm TAKE 2 TABLET ORAL DAILY X 5 DAYS THEN 1 TAB DAILY X 5 DAYS THEN STOP guaiFENes in 600MG Oral Tablet, Extended Release 12/01/2022 07/27/2023 ORAL NEEDED TWICE DAILY 1 TABLET 038995 RxNorm TAKE 1 TABLET ORAL NEEDED TWICE DAILY FOR COUGH predniSON E 10MG Oral Tablet 12/01/2022 12/22/2022 ORAL DAILY 2 TABLET 456248 RxNorm TAKE 2 TABLET ORAL DAILY X 5 DAYS THEN 1 TAB DAILY X 5 DAYS THEN STOP Acetamino phen 500MG Oral Tablet 12/01/2022 07/27/2023 ORAL NEEDED THREE TIMES A DAY 2 TABLET 041523 RxNorm TAKE 2 TABLET ORAL NEEDED THREE TIMES A DAY FOR PAIN Lisinopri l 40MG Oral Tablet 12/01/2022 07/27/2023 ORAL DAILY 1 TABLET 306319 RxNorm TAKE 1 TABLET ORAL DAILY predniSON E 20MG Oral Tablet 12/22/2022 04/02/2023 ORAL DAILY 1 TABLET 762207 RxNorm TAKE 3 TABLETS DAILY FOR 3 DAYS, THEN 2 TABLETS DAILY FOR 3 DAYS, THEN 1 TABLET DAILY FOR 3 DAYS Narcan 4MG/0.1ML Nasal [place] 12/30/2022 07/27/2023 NASAL NEEDED 1 SPRAY 7434274 RxNorm SPRAY 1 SPRAY NASAL NEEDED FOR OPIATE OVERDOSE Albuterol Sulfate 0.09MG/1A ctuation Inhalatio n Suspensio n 12/30/2022 07/27/2023 INHALATI ON NEEDED EVERY 4 HOURS 2 PUFF 7404123 RxNorm 2 PUFF INHALATION NEEDED EVERY 4 HOURS FOR Shortness of breath Cefpodoxi me Proxetil 200MG Oral Tablet 04/05/2023 06/04/2023 ORAL TWICE A DAY 1 TABLET 298451 RxNorm TAKE 1 TABLET ORAL TWICE A DAY QUEtiapin e 300MG Oral Tablet 04/05/2023 07/27/2023 ORAL BEDTIME 300 MILLIGRAMS 049641 RxNorm TAKE 300 MILLIGRAMS ORAL BEDTIME predniSON E 10MG Oral Tablet 04/05/2023 06/04/2023 ORAL TWICE A DAY 2 TABLET 700463 RxNorm TAKE 2 TABLET ORAL TWICE A DAY for 3 days then 2 tabs daily x 3 days then 1 tab daily x 3 days Senna Plus 50MG-8.6M G Oral Tablet 04/05/2023 07/27/2023 ORAL TWICE A DAY 2 TABLET 557904 RxNorm TAKE 2 TABLET ORAL TWICE A DAY busPIRone 15MG Oral Tablet 04/05/2023 07/27/2023 ORAL THREE TIMES A DAY 15 MILLIGRAMS 635072 RxNorm TAKE 15 MILLIGRAMS ORAL THREE TIMES A DAY oxygen 04/05/2023 Unknown ORAL continuo us 3 LITERS RxNorm TAKE 3 LITERS ORAL continuous Milk Of Magnesia 400MG/5ML Oral Suspensio n 06/13/2023 07/27/2023 ORAL NEEDED DAILY 30 mL 033788 RxNorm TAKE 30 mL ORAL NEEDED DAILY predniSON E 20MG Oral Tablet 07/27/2023 10/16/2023 ORAL DAILY 2 TABLET 659655 RxNorm TAKE 2 TABLET ORAL DAILY predniSON E 20MG Oral Tablet 09/15/2023 10/16/2023 ORAL DAILY 2 TABLET 982826 RxNorm TAKE 2 TABLET ORAL DAILY Ibuprofen 200MG Oral Tablet 10/22/2023 Unknown ORAL NEEDED THREE TIMES A DAY 3 TABLET 168204 RxNorm TAKE 3 TABLET ORAL NEEDED THREE TIMES A DAY predniSON E 10MG Oral Tablet 10/22/2023 12/01/2023 ORAL TWICE A DAY 2 TABLET 144710 RxNorm TAKE 2 TABLET ORAL TWICE A DAY x 3 days then 1 tab twice a day x 5 days then 1 tab daily LORazepam 1MG Oral Tablet 10/22/2023 Unknown ORAL NEEDED TWICE DAILY 1 MILLIGRAMS 335783 RxNorm TAKE 1 MILLIGRAMS ORAL NEEDED TWICE DAILY Cefpodoxi me Proxetil 200MG Oral Tablet 10/22/2023 11/28/2023 ORAL EVERY 12 HOURS 200 MILLIGRAMS 811332 RxNorm TAKE 200 MILLIGRAMS ORAL EVERY 12 HOURS Anoro Ellipta 62.5MCG-2 5MCG/1ACT Inhalatio n Powder 10/22/2023 Unknown INHALATI ON DAILY 1 GRAM 6774519 RxNorm 1 GRAM INHALATION DAILY DULoxetin e HCl 60MG Oral Capsule, Delayed Release 10/22/2023 Unknown ORAL DAILY 60 MILLIGRAMS 629097 RxNorm TAKE 60 MILLIGRAMS ORAL DAILY Linzess 145MCG Oral Capsule 10/22/2023 10/27/2023 ORAL DAILY 1 unit(s) 7996398 RxNorm TAKE 1 E ACH ORAL DAILY Lisinopri l 40MG Oral Tablet 10/22/2023 Unknown ORAL DAILY 40 MILLIGRAMS 788412 RxNorm TAKE 40 MILLIGRAMS ORAL DAILY Methadone 10MG Oral Tablet 10/22/2023 Unknown ORAL DAILY 132 MILLIGRAMS RxNorm TAKE 132 MILLIGRAMS ORAL DAILY Pregabali n 200MG Oral Capsule 10/22/2023 Unknown ORAL THREE TIMES A DAY 200 MILLIGRAMS 212828 RxNorm TAKE 200 MILLIGRAMS ORAL THREE TIMES A DAY QUEtiapin e Fumarate 300MG Oral Tablet 10/22/2023 Unknown ORAL BEDTIME 300 MILLIGRAMS 744605 RxNorm TAKE 300 MILLIGRAMS ORAL BEDTIME Testoster one Cypionate 200MG/1ML Intramusc ular Oil 10/22/2023 Unknown 7760914 RxNorm As directed Ventolin HFA 0.09MG/1A ctuation Inhalatio n Suspensio n 10/22/2023 Unknown INHALATI ON NEEDED EVERY 4 HOURS 2 PUFF 343879 RxNorm 2 PUFF INHALATION NEEDED EVERY 4 HOURS Acetamino phen 500MG Oral Tablet 10/22/2023 Unknown ORAL THREE TIMES A DAY 2 TABLET RxNorm TAKE 2 TABLET ORAL THREE TIMES A DAY predniSON E 10MG Oral Tablet 12/01/2023 12/07/2023 ORAL DAILY 4 TABLET 537415 RxNorm TAKE 4 TABLET ORAL DAILY x 3 days then 2 tabs daily x 3 days then 1 tab daily x 7 days Cefpodoxi me Proxetil 200MG Oral Tablet 12/01/2023 12/07/2023 ORAL TWICE A DAY 1 TABLET 420495 RxNorm TAKE 1 TABLET ORAL TWICE A DAY levoFLOXa jennifer 750MG Oral Tablet 12/25/2023 Unknown ORAL DAILY 1 TABLET 507017 RxNorm TAKE 1 TABLET ORAL DAILY predniSON E 50MG Oral Tablet 12/25/2023 Unknown ORAL DAILY 1 TABLET 781750 RxNorm TAKE 1 TABLET ORAL DAILY Assessment [...] Date Status Code Code System PNEUMONIA active 792849086 SNOMED-CT POLYSUBSTANCE ABUSE active 506128178 SNOMED-CT ACUTE AND CHRONIC RESPIRATORY FAILURE WITH HYPERCAPNIA active 0903428401096 SNOMED-CT ACUTE AND CHRONIC RESPIRATORY FAILURE WITH HYPOXIA active 23163573 SNOMED-CT COPD WITH EXACERBATION active 6424494 07 SNOMED-CT ALCOHOL USE WITH WITHDRAWAL active 048299992 SNOMED-CT CHRONIC RESPIRATORY FAILURE WITH HYPOXIA 10/03/2021 resolved 75678974 SNOMED- CT OTHER SEIZURES 10/03/2021 resolved 94114277 SNOM ED-CT PULMONARY NODULE 10/03/2021 resolved 610937358 SN OMED-CT CHRONIC HEPATITIS C 10/03/2021 resolved 494082893 SNOMED-CT ANXIETY DISORDER 10/03/2021 resolved 800329664 SN OMED-CT 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 10/03/2021 resolved 029173548561180 SNOME D-CT NICOTINE DEPENDENCE 01/13/2021 resolved 25313512 SNOMED-CT VENOUS INSUFFICIENCY 10/03/2021 resolved 87568805 SNOMED-CT ALCOHOL INTOXICATION 11/26/2022 resolved 27928963 SNOMED-CT AMS 11/26/2022 resolved 768796250 SNOMED-CT HYPOKALEMIA 11/26/2022 resolved 27397956 SNOMED- CT OPIATE TOXICITY 06/04/2023 resolved 277172499 SNO MED-CT ACUTE ALCOHOL INTOXICATION 04/01/2023 resolved 4504184289 SNOMED-CT FEVER 06/04/2023 resolved 775661106 SNOMED-CT ALTERED MENTAL STATUS 06/04/2023 resolved 3151004 04 SNOMED-CT CHRONIC HEADACHE DISORDER 10/03/2021 resolved 778638216 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 911530 00 SNOMED-CT ALCOHOL DEPENDENCE WITH WITHDRAWAL 01/13/2021 resolved 17308969 SNOMED-CT HTN 10/03/2021 resolved 89498793 SNOMED-CT COPD 09/09/2021 resolved 03421939 SNOMED-CT HIGH CHOLESTEROL 09/09/2021 resolved 84055884 SN OMED-CT Allergies and Adverse Reactions Allergy Substance Reaction Severity Start Date Concern Status Code Code System PCN (penicillin) Anaphylaxis (SNOMED-CT: 04291428) Moderate Active 5203483 SNOMED-CT Plan of Treatment X-RAY 03/21/2022 MRI BRAIN W WO CONTRAST 12/06/2021 MRI BRAIN W WO CONTRAST 11/30/2021 LAB DRAW 15MIN 05/13/2021 Encounters Encounter Diagnosis Start Date Code Code Sys tem Abnormal sexual function 05/13/2021 35412379 SNO MED-CT Personal Care Team Section Performer Name Performer Role Active Date Inactive Da elias
--- OUTSIDE RECORDS SUMMARY | 2024-02-29 09:06 | XMS_ITS | Encounter Summary ---
Author Organization [facility] Address [address] [place] [address] Care Team Providers Care Maintenance Planning Clerk Name Role Phone Unavailable Primary Care Provider Unavailabl e Encounter Details Date Type Department Care Team (Latest Contact Info) Description 07/12/2002 12:04 EST Hospital Encounter [facility] - Other [address] [place] [address] Vivek Cerna MD [address] [place] [phone] Unknown, Provider, Discharge Disposition: Auto Discharge Social History Tobacco [...] Procedure Name Priority Date/Time Associated Diagnosis Comments FEMUR 2 VIEWS Routine 07/12/2002 11:43 EST documented in this encounter Results * FEMUR 2 VIEWS (07/12/2002 11:43 EST) Anatomical Region Laterality Modality Other 07/12/2002 11:4 3 EST Narrative 01/13/2009 2:27 EDT RT FEM FX ,DOI 10-7-99 R/O ASSESS HEALING RIGHT FEMUR, 2 VIEWS: 07/12/02, 1135 HISTORY: Right femoral fracture, date of injury 02/04/99. Assess healing. COMPARISON: Previous films are not available. FINDINGS: Two views of the right femur show evidence of markedly thickened cortex in the midshaft of the femur, where we note some linear defects, probably representing residual from previous open reduction and internal fixation. Healing would appear to be quite solid and alignment is satisfactory. The exam shows numerous surgical clips in the soft tissues of the thigh, presumably from previous surgery. gordy Procedure Note Ugo Jacome MD - 01/13/2009 RT FEM FX ,DOI 02-04-99 R/O ASSESS HEALING RIGHT FEMUR, 2 VIEWS: 07/12/02, 1135 HISTORY: Right femoral fracture, date of injury 02/04/99. Assess healing. COMPARISON: Previous films are not available. FINDINGS: Two views of the right femur show evidence of markedly thickened cortex in the midshaft of the femur, where we note some linear defects, probably representing residual from previous open reduction and internal fixation. Healing would appear to be quite solid and alignment is satisfactory. The exam shows numerous surgical clips in the soft tissues of the thigh, presumably from previous surgery. gordy Vivek Cerna MD IMG DIAGNOSTIC I MAGING ORDERABLES documented in this encounter Visit Diagnoses Not on filedocumented in this encounter
--- OUTSIDE RECORDS SUMMARY | 2024-02-29 09:06 | XMS_ITS | Encounter Summary ---
Author Organization [facility] Address [address] [place] [address] Care Team Providers Care Latex Ribbon Machine Operator Name Role Phone Unavailable Primary Care Provider Unavailabl e Encounter Details Date Type Department Care Team (Latest Contact Info) Description 02/16/1999 9:40 EDT - 02/16/1999 11:59 EDT Hospital Encounter [facility] - Maple conversion [address] [place] [address] Vivek Cerna MD [address] [place] [phone] Discharge Disposition: Auto Discharge Social History [...] Procedure Name Priority Date/Time Associated Diagnosis Comments L SPINE 2-3 VIEWS Routine 02/16/1999 10: 30 EDT documented in this encounter Results * L SPINE 2-3 VIEWS (02/16/1999 10:30 EDT) Anatomical Region Laterality Modality Other 02/16/1999 10:3 0 EDT Narrative 03/10/2009 11:22 EST LBP BONY ABN. LUMBAR SPINE: 02/16/99 10:25. FINDINGS: AP and lateral views of the lumbar spine shows that there is a very mild scoliotic curve with convexity to the left. Slight thinning of the L5-S1 disc space is noted. The bony architecture and density are unremarkable. No defect is seen posteriorly. The exam shows a Naz filter in the vena cava about the level of L2. ; /ls Procedure Note Ugo Jacome MD - 03/10/2009 LBP BONY ABN. LUMBAR SPINE: 02/16/99 10:25. FINDINGS: AP and lateral views of the lumbar spine shows that there is a very mild scoliotic curve with convexity to the left. Slight thinning of the L5-S1 disc space is noted. The bony architecture and density are unremarkable. No defect is seen posteriorly. The exam shows a Naz filter in the vena cava about the level of L2. ; /ls Vivek Cerna MD IMG DIAGNOSTIC I MAGING ORDERABLES documented in this encounter Visit Diagnoses Not on filedocumented in this encounter
--- OUTSIDE RECORDS SUMMARY | 2024-02-29 09:06 | XMS_ITS | Encounter Summary ---
Author Organization [facility] Address [address] [place] [address] Care Team Providers Care Psychotherapist Name Role Phone Unavailable Primary Care Provider Unavailabl e Encounter Details Date Type Department Care Team (Late st Contact Info) Description 10/05/2005 8:55 EDT Hospital Encounter [facility] - Maple conversion [address] [place] [address] Vivek Cerna MD [address] [place] [phone] Social History Tobacco Use Types Packs/Day [...]
--- OUTSIDE RECORDS SUMMARY | 2024-02-29 09:06 | XMS_ITS | Encounter Summary ---
Author Organization [facility] Address [address] [place] [address] Care Team Providers Care Director Validation Name Role Phone Anjum Cheung MD Primary Care Provider [phone] Unknown, Provider Primary Care Provider [phone] Encounter Details Date Type Department Care Team (Late st Contact Info) Description 12/25/2009 Orders Only [facility] Sports Medicine Program - [address] [address] Vivek Cerna MD [address] [place] [phone] Leg pain (Primary Dx) Social History Tobacco Use Types Packs/Day Years Used Date Smoking Tobacco: Never Assessed Sex and Gender Information Value Date Recorded Sex Assigned at Not on file Gender Identity Male 04/10/2020 10:26 EST Sexual Orientation Not on file documented as of this encounter Plan of Treatment Not on file documented as of this encounter Visit Diagnoses Diagnosis Leg pain- Primary Pain in limb documented in this encounter Care Teams Director Validation Relationship Specialty Start Date End Date Anjum Cheung MD [address] [place] [address] PCP - General 09/30/09 12/27/09 Unknown, ProviderMD PCP - General 12/28/09 08/08/11 documented as of this encounter
--- OUTSIDE RECORDS SUMMARY | 2024-02-29 09:06 | XMS_ITS | Encounter Summary ---
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 appears comfortable. No other issues,will continue to monitor. Rosamaria Membreno RN 08/12/2012 17:50 * Plan of Care - Heidi Calderón RN - 08/12/2012 0159 EDT Problem: RESPIRATORY FUNCTION/OXYGENATION Goal: Patient Will Maintain Patent Airway Data: Pt alert and oriented x 3 Pt's lung sounds diminished bilaterally. Pt's O2 sats remaining 91-95% on room air and denies any sob. Pt remains with pain @ chest tube site. Chest tube remains on suction. Action: monitor respiratory status, chest tube to suction, tylenol for tube site pain. ciwa Q4 hr Response: Pt sleeping and appears comfortable. Pt woke up @ 0450 and asked for respiratory, pt's O2sat 87 on room air. Neb tx by resp given w sats 89 - 91 Respiratory therapist stated crepitous had increased on left side and He put pt on 2 L nc. Night float (Degirmenci) called and came to floor to check pt. CXR scheduled for 0600 was done @ 0500. Heidi Calderón RN 08/12/2012 1:53 * Plan of Care - Rosamaria Membreno RN - 08/11/2012 1812 EDT Problem: NEUROLOGICAL STATUS Goal: Mental status/cognition is maintained/returned to baseline Data: Patient drowsy this morning but alert and oriented x3. Patient frequently requesting klonapinbut does not appear anxious. Patient states he takes it whenever needed at home. Patient denies SOB, but does complain of pain at chest tube site and in legs. Action: Medicate with scheduled medications, offer support. Response: Patient resting in bed, no issues, will continue to monitor. Addendum: Patient is beginning to score >10 on CIWA score, starting to feel very anxious, moderate headache, tremors, and diaphoretic. Patient medicated with valium per CIWA protocol. Rosamaria Membreno RN 08/11/2012 18:08 * Plan of Care - Heidi Calderón RN - 08/11/2012 0148 EDT Problem: RESPIRATORY FUNCTION/OXYGENATION Goal: Patient Will Maintain Patent Airway Data: Pt alert and oriented x 2-3 Pt chest tube was clamped by Dr. Navid Martinez @ approximately 0020. Pt's O2 sats trending down to mid to high 80's Action: Resp called and pt received duoneb, pt remained in 80's, 2 L nc applied and still remained 87-88 night float (Degirmenci) called and checked pt. Response: Pt's O2 sat increased to 93% when sitting up awake and after being examined, but they started to trend down again. Portable cxr done. Will continue to monitor At 0145 pt had a portable cxr which showed a lg pneumothorax. Night float (Degirmenci) came to floor and unclamped chest tube. Ct was to water seal and began bubbling. Pt was started on suction to chest tube and started having pain. Suction was dc'd. Dr. Navid Martinez came to check pt and pt was restarted on suction. Pt appeared to tolerate suction and O2 sat improved to 94%. Pt will remain on suction for 1 hr and portable cxr willbe rechecked. Heidi Calderón RN 08/11/2012 1:33 * Plan of Care - Surinder Heredia RN - 08/10/2012 397 EDT Problem: NEUROLOGICAL STATUS Goal: Mental status/cognition is maintained/returned to baseline Data: Pt was transferred from M4 to B4. Alert and oriented x 3. Anxious and c/o pain at his chest tube site at his L chest. Rated his pain 8/10. CIWA q 1 hr as order, scored 5-8. No valium or ativan needed this shift. Chest tube to water seal as order. No drainage noted from 1600 to 2200. Positive for air leak. No c/o sob. VSS. Pt was on RA. Good po intake. Voided in urinal without difficulty. Action: Monitored for pain and comfort level. CIWA assessment as order. Monitored VS closely. Oxymetry cont. Emotional support and snacks given to distract pt. Dr Trujillo was paged d/t pt c/o increasing pain at chest tube site. Tylenol and Ibuprofen given as order. Response: Calmed down at hs. In bed, watching TV. Ice cream given for snacks. Cont to monitor. Surinder Heredia RN 08/10/2012 21:20 * Plan of Care - Brian Basurto RN - 08/10/2012 1415 EDT Problem: NEUROLOGICAL STATUS Goal: Mental status/cognition is maintained/returned to baseline Data: Report taken this am. Upon assessment, chest tube on low suction. Pt awake, alert and oriented x 3. Lung sounds crackles bilaterally. Plan for today is to transfer pt to medical floor and hopefully take chest tube out. Also to get pt his daily methadone dose that he takes at home. Action: Pt very anxious this morning and wanted his methadone dose bipin. Pharmacy was able to get us the medication by 0900 this am and it was given. Pt immediately after getting his methadone said that he needed to get his daily anti-anxiety medication as well. About 1000 he was sleeping peacefully in his room and every time someone went into the room or he woke up he would start to get upset and ask for a nebulizer, or something to drink etc. Chest tube to water seal at 1130. Response: Pt spoke to girlfriend at 1400. Afterwards was in tears and when I came into the room he stated he was having a panic attack and needed his clonopin. Sent a page to the Dr. Vivek Thomas and he ordered 2 mg of clonopin daily for the pt. Will continue to monitor pt and await for a bed on the medical floor. Brian Basurto RN 08/10/2012 14:07 1500: Bed available on [place] [address]. Waiting for shift change to give report. Pt less anxious since clonopin given. 1550: [facility] [place] [address] [facility]. Meds, chart and belongings sent with pt. * Plan of Care - Shivani Gomez RN - 08/09/2012 5624 EDT Problem: RESPIRATORY FUNCTION/OXYGENATION Goal: Patient Will Maintain Patent Airway Data: Pt taking shallow breaths secondary to left chest tube site discomfort. Sats 92-95% on 5 liters NC. Coarse rhonchi. Harsh, productive cough. No significant drainage in chest tube. Small amount of serous/sang fluid in tubing. Chest tube dressing CDI. Pt anxious and asking constantly for his Methadone while awake. Received 5 mg po with minimal relief. IV Morphine 2 mg given with good effect. Ativan given for anxiety with good effect. Pt states he has a high tolerance for pain medications. Tolerating po liquids. Pt called significant other and became more anxious. Repositioned for comfort.Good urine output in bedside urinal. Action: Cont to monitor resp status and for pain and anxiety. Response: Resting comfortably at this time. 0530 If you don't give me my Methadone dose, I will . Pt requesting medication for pain, anxiety and for sleep whenever awake. Received Morphine 2 mg x 3 and Ativan x 2. Sleeping in short naps. Conts on 5 liters NC. Sputum culture sent to lab. Chest xray ordered. 15 cc out of chest tube. Largeurine output. 0600 Called received from Methadone clinic in [place] by Riri Garner RN stating that she received a call on 08/09/[address] Poe requesting dosages of medicatons. She stated that pt is dispensed Methadone 90 mg daily and Antabuse 240 mg daily by their clinic. Shivani Gomez RN 08/09/2012 23:15 * Plan of Care - Brian Basurto, CHRISTINE - 08/09/2012 1235 EDT Problem: RESPIRATORY FUNCTION/OXYGENATION Goal: Patient Will Maintain Patent Airway Data: Report taken this am. Upon assessment pt was sedated and appeared comfortable. Some expiratory wheezes heard bilaterally. Pt afebrile, BP and pulse within normal limits. C-collar in place. Planfor today is to wean pt off sedation and hopefully extubate. Action: Sedation was changed from propofol to precedex. Pt had to have ET tube advanced and became severely agitated. Unable to get pt to calm down so physicians ordered him to be extubated. At 1045 peoples catheter was removed, 1100 RT extubated pt. Response: Pt sleeping comfortably, precedex still running. Chest tube to gravity, suction was turned off. BP is now 180's/110's order for hydralazine given, will administer and monitor for results. No other concerns at this time, pt breathing on his own without distress, on NC at 4L 95% o2 Brian Basurto RN 08/09/2012 12:27 1400: Pt was still very sedate and would not awaken except with painful stimuli. At 1430 pt woke upand physicians went in to ask him some questions. Pt was wondering what happened and why he was in the hospital stating that he had a stroke and someone poisoned him because he didn't take any drugs he only drank. He is still confused asking the same questions over and over. Precedex was turned off. Pts BP has come down slightly as well at 148/90. Will continue to monitor. Awaiting pt to wake up more. Tolerating ice chips well. * Plan of Care - Anna Duran RN - 08/09/2012 0154 EDT Problem: NEUROLOGICAL STATUS Goal: Mental status/cognition is maintained/returned to baseline Data: pt intubated, sedated at arrival, received 8 mg of ativan on route from [facility], at [facility] he received last dose of Vecuronium @ 0. @ L NS received on route, on 80 mcg of propofol gtt, following commands per FACT RN. Seizure type activity x2 reported by FACT RN. Responding to 2 mg Ativan each time. Not following commands at arrival with a RASS of -4. Propofol gtt decreased starting with 0000, to evaluate neuro status. Action: sedated, evaluate neuro status, sedation titrated as needed. Central line placed. Response: very agitated, attempting to get OOB with light sedation(30 mcg propofol), pulling picking on tubes, following commands. Anna Duran RN 08/09/2012 1:39 2300 pt arrived on the unit via FACT, sedated on 80 mcg propofol, 8 mg ativan given on route, 2 L NS. Two episodes of tonic/ clonic seizure like activity reported by FACT RN. 0000 propofol gtt decreased to assess neuro status. 0110 pt awake, following commands, increased agitation, diaphoretic, unable to control agitation, BP and HR increasing. Resedated. 0130 electric crane operator Rigo Zamora called concerning the pt general condition. Can be contacted @ [phone] when pt extubated. 0145 Central line placement started. 0300 chest tube on left side placed. 0400 central line placed, second attempt. documented in this encounter Plan of Treatment Not on file documented as of this encounter Procedures Procedure Name Priority Date/Time Associated Diagnosis Comments ECG REPORT - SCANNED 08/21/2012 10:03 EDT ECG REPORT - SCANNED 08/15/2012 14:59 EDT ECG REPORT - SCANNED 08/15/2012 11:06 EDT PORTABLE CHEST 1 VIEW Routine 08/15/2012 5:42 EDT COMPLETE BLOOD COUNT Routine 08/15/2012 5:11 EDT BUN Routine 08/15/2012 5:11 EDT PHOSPHORUS Routine 08/15/2012 5:11 EDT CREATININE Routine 08/15/2012 5:11 EDT ELECTROLYTES Routine 08/15/2012 5:11 EDT CHEST PA AND LATERAL Routine 08/14/2012 17:04 EDT PORTABLE CHEST 1 VIEW Routine 08/14/2012 13:40 EDT COMPLETE BLOOD COUNT Routine 08/14/2012 5:37 EDT BUN Routine 08/14/2012 5:37 EDT PHOSPHORUS Routine 08/14/2012 5:37 EDT CREATININE Routine 08/14/2012 5:37 EDT ELECTROLYTES Routine 08/14/2012 5:37 EDT COMPLETE BLOOD COUNT Routine 08/13/2012 10:05 EDT PORTABLE CHEST 1 VIEW Routine 08/13/2012 8:47 EDT BUN Routine 08/13/2012 5:41 EDT PHOSPHORUS Routine 08/13/2012 5:41 EDT GLUCOSE, SERUM Routine 08/13/2012 5:41 EDT CREATININE Routine 08/13/2012 5:41 EDT ELECTROLYTES Routine 08/13/2012 5:41 EDT COMPLETE BLOOD COUNT Routine 08/12/2012 10:19 EDT PORTABLE CHEST 1 VIEW Routine 08/12/2012 9:30 EDT PORTABLE CHEST 1 VIEW STAT 08/12/2012 7:24 EDT PLATELET COUNT Routine 08/12/2012 5:30 EDT BUN Routine 08/12/2012 5:30 EDT PHOSPHORUS Routine 08/12/2012 5:30 EDT GLUCOSE, SERUM Routine 08/12/2012 5:30 EDT CREATININE Routine 08/12/2012 5:30 EDT ELECTROLYTES Routine 08/12/2012 5:30 EDT PORTABLE CHEST 1 VIEW STAT 08/12/2012 5:12 EDT BUN Routine 08/11/2012 5:39 EDT PHOSPHORUS Routine 08/11/2012 5:39 EDT MAGNESIUM Routine 08/11/2012 5:39 EDT GLUCOSE, SERUM Routine 08/11/2012 5:39 EDT CREATININE Routine 08/11/2012 5:39 EDT ELECTROLYTES Routine 08/11/2012 5:39 EDT PORTABLE CHEST 1 VIEW STAT 08/11/2012 3:27 EDT PORTABLE CHEST 1 VIEW STAT 08/11/2012 1:52 EDT PORTABLE CHEST 1 VIEW Routine 08/10/2012 22:44 EDT PORTABLE CHEST 1 VIEW Routine 08/10/2012 6:20 EDT BACTERIAL CULTURE/SMEAR, RESPIRATORY Routine 08/10/2012 4:12 EDT COMPLETE BLOOD COUNT Routine 08/10/2012 2:56 EDT BUN Routine 08/10/2012 2:56 EDT PHOSPHORUS Routine 08/10/2012 2:56 EDT MAGNESIUM Routine 08/10/2012 2:56 EDT GLUCOSE, SERUM Routine 08/10/2012 2:56 EDT CREATININE Routine 08/10/2012 2:56 EDT CK Routine 08/10/2012 2:56 EDT ELECTROLYTES Routine 08/10/2012 2:56 EDT NEBULIZER TX INTERMITTENT Routine 08/10/2012 0:10 EDT NEBULIZER TX INTERMITTENT Routine 08/10/2012 0:10 EDT NEBULIZER TX INTERMITTENT Routine 08/10/2012 0:10 EDT TROPONIN I Routine 08/09/2012 21:56 EDT CK MB WITH TOTAL CK Routine 08/09/2012 2 1:56 EDT NEBULIZER TX INTERMITTENT Routine 08/09/2012 17:48 EDT PORTABLE CHEST 1 VIEW STAT 08/09/2012 16:07 EDT EXTUBATION Routine 08/09/2012 10:55 EDT EXTUBATION Routine 08/09/2012 10:53 EDT EKG 12-LEAD Routine 08/09/2012 8:34 EDT NEBULIZER TX INTERMITTENT Routine 08/09/2012 8:09 EDT TROPONIN I Routine 08/09/2012 7:50 EDT CK MB WITH TOTAL CK Routine 08/09/2012 7 :50 EDT PORTABLE CHEST PA CENTRAL LINE/PICC/ET TUBE,INITIAL INSERTION 08/09/2012 4:31 EDT BUN Routine 08/09/2012 4:00 EDT PHOSPHORUS Routine 08/09/2012 4:00 EDT MAGNESIUM Routine 08/09/2012 4:00 EDT GLUCOSE, SERUM Routine 08/09/2012 4:00 EDT CREATININE Routine 08/09/2012 4:00 EDT ELECTROLYTES Routine 08/09/2012 4:00 EDT PORTABLE CHEST 1 VIEW STAT 08/09/2012 3:29 EDT PORTABLE CHEST 1 VIEW Routine 08/09/2012 2:46 EDT INPATIENT ADD-ON Routine 08/09/2012 0:45 EDT INPATIENT ADD-ON Routine 08/09/2012 0:25 EDT EKG 12-LEAD Routine 08/08/2012 23:47 EDT TROPONIN I Routine 08/08/2012 23:41 EDT LACTIC ACID STAT 08/08/2012 23:41 EDT CK MB WITH TOTAL CK Routine 08/08/2012 2 3:41 EDT SCREENING GLUCOSE STAT 08/08/2012 23: 40 EDT DIFFERENTIAL Routine 08/08/2012 23:40 EDT PTT Routine 08/08/2012 23:40 EDT PROTIME Routine 08/08/2012 23:40 EDT COMPLETE BLOOD COUNT Routine 08/08/2012 23:40 EDT COMPLETE BLOOD COUNT AND DIFFERENTIAL STAT 08/08/2012 23:40 EDT BUN STAT 08/08/2012 23:40 EDT ALT STAT 08/08/2012 23:40 EDT AST STAT 08/08/2012 23:40 EDT PHOSPHORUS STAT 08/08/2012 23:40 EDT ALKALINE PHOSPHATASE STAT 08/08/2012 23:40 EDT MAGNESIUM STAT 08/08/2012 23:40 EDT CREATININE STAT 08/08/2012 23:40 EDT BILIRUBIN, TOTAL STAT 08/08/2012 23:4 0 EDT ACETAMINOPHEN Routine 08/08/2012 23:40 EDT SALICYLATE Routine 08/08/2012 23:40 EDT ELECTROLYTES STAT 08/08/2012 23:40 EDT URINE MICROSCOPIC Routine 08/08/2012 23: 39 EDT URINALYSIS WITH MICROSCOPIC IF POSITIVE Routine 08/08/2012 23:39 EDT MRSA PCR Routine 08/08/2012 23:34 EDT ZZBLOOD GAS, G3 ISTAT Routine 08/08/2012 23:28 EDT BLOOD GAS, CG4 ISTAT Routine 08/08/2012 22:00 EDT BLOOD GAS, CG4 ISTAT Routine 08/08/2012 21:48 EDT documented in this encounter Results * ECG REPORT - SCANNED (08/21/2012 10:03 EDT) 08/21/2012 10:0 3 EDT Narrative 08/21/2012 10:38 EDT Procedure Note CRIMINAL RECORDS TECHNICIAN, SCAN 2 - 08/21/2012 10:03 EDT Scan 2 [place] PROCEDURE/MINOR SOPHIA GICAL ORDERABLES * ECG REPORT - SCANNED (08/15/2012 14:59 EDT) 08/15/2012 14:5 9 EDT Narrative 08/15/2012 15:31 EDT Procedure Note CRIMINAL RECORDS TECHNICIAN, SCAN 2 - 08/15/2012 14:59 EDT Scan 2 [place] PROCEDURE/MINOR SOPHIA GICAL ORDERABLES * ECG REPORT - SCANNED (08/15/2012 11:06 EDT) 08/15/2012 11:0 6 EDT Narrative 08/15/2012 14:47 EDT Procedure Note CRIMINAL RECORDS TECHNICIAN, SCAN 2 - 08/15/2012 11:06 EDT Scan 2 [place] PROCEDURE/MINOR SOPHIA GICAL ORDERABLES * PORTABLE CHEST 1 VIEW (08/15/2012 5:42 EDT) Anatomical Region Laterality Modality Other 08/15/2012 5:42 EDT 08/15/2012 9:36 EDT Narrative 08/15/2012 9:36 EDT PORTABLE CHEST 1 VIEW ??Aug 15, 2012 05:42:00 AM Clinical history/Comments: s/p chest tube removal Comparison: 12 hours prior A nearly upright portable radiograph of the chest was obtained. The left chest tube has been removed. There is still an extensive amount of subcutaneous emphysema in the left chest wall and left lower neck. No pneumothorax is identified. A linear opacity in the left lung base is likely related to scarring. Crowding of the vessels in both bases is suggestive of atelectasis. The heart is of normal size. I have personally reviewed the images and the above interpretation and agree with the findings. Procedure Note Lenard Finley MD - 08/15/2012 PORTABLE CHEST 1 VIEW Aug 15, 2012 05:42:00 AM Clinical history/Comments: s/p chest tube removal Comparison: 12 hours prior A nearly upright portable radiograph of the chest was obtained. The left chest tube has been removed. There is still an extensive amount of subcutaneous emphysema in the left chest wall and left lower neck. No pneumothorax is identified. A linear opacity in the left lung base is likely related to scarring. Crowding of the vessels in both bases is suggestive of atelectasis. The heart is of normal size. I have personally reviewed the images and the above interpretation and agree with the findings. Earlene Ortiz MD IMG DIAGNOSTIC IMAGI NG ORDERABLES * (ABNORMAL) HEMAGRAM (08/15/2012 5:11 EDT) WBC 9.01 4.0 - 10.4 K/cmm [facility] RBC 4.17(L) 4.36 - 5.78 M/cmm [facility] Hemoglobin 13.7(L) 13.8 - 17.3 gm/dl [facility] HCT 40.6 39.5 - 50.2 % [facility] MCV 97(H) 81 - 95 fl [facility] MCH 32.8 27.6 - 33.0 pg [facility] MCHC 33.7 32.8 - 36.4 gm/dl [facility] PLT 271 141 - 320 K/cmm [facility] RDW-CV 16.8(H) 11.8 - 14.1 % [facility] Blood specimen (specimen) 08/15/2012 5:11 EDT 08/15/2012 5:51 EDT Aditi Trinidad MD HEMATOLOGY & PF4 ORD ERABLES Performing Organization Address City/[facility] Co de Phone Number [facility] [address] [place] [address] * (ABNORMAL) PHOSPHORUS (08/15/2012 5:11 EDT) Phosphorus 5.2(H) 2.5 - 4.5 mg/dl [facility] Blood specimen (specimen) 08/15/2012 5:11 EDT 08/15/2012 5:51 EDT Arnulfo Poe MD CHEMISTRY & BLOOD GA S ORDERABLES Performing Organization Address [facility] de Phone Number [facility] [address] [place] [address] * CREATININE (08/15/2012 5:11 EDT) Creatinine 0.66 0.66 - 1.25 mg/dl [facility] GFR, Calculated >60 >60 ml/min/1.7 3m2 [facility] Blood specimen (specimen) 08/15/2012 5:11 EDT 08/15/2012 5:51 EDT Arnulfo Poe MD CHEMISTRY & BLOOD GA S ORDERABLES Performing Organization Address [facility] de Phone Number [facility] [address] [place] [address] * BUN (08/15/2012 5:11 EDT) BUN 13 10 - 26 mg/dl [facility] Blood specimen (specimen) 08/15/2012 5:11 EDT 08/15/2012 5:51 EDT Arnulfo Poe MD CHEMISTRY & BLOOD GA S ORDERABLES Performing Organization Address City/[facility] Co de Phone Number [facility] [address] [place] [address] * ELECTROLYTES (08/15/2012 5:11 EDT) Sodium 142 136 - 145 mEq/L [facility] Potassium 4.6 3.5 - 5.0 mEq/L [facility] Chloride 100 96 - 110 mEq/L [facility] CO2 30 24 - 32 mEq/L [facility] Blood specimen (specimen) 08/15/2012 5:11 EDT 08/15/2012 5:51 EDT Arnulfo Poe MD CHEMISTRY & BLOOD GA S ORDERABLES Performing Organization Address [facility] de Phone Number [facility] [address] [place] [address] * CHEST PA AND LATERAL (08/14/2012 17:04 EDT) Anatomical Region Laterality Modality Other 08/14/2012 17:0 4 EDT 08/14/2012 22:13 EDT Narrative 08/14/2012 22:13 EDT Examination: Chest X-ray History: ??pneumothorax, eval for recurrence after chest tube clamped; schedule for 1700 Technique: Two views of the chest were performed. ??Dual-energy technique with reconstructions in soft tissue and bone windows was used. Comparison is made with the prior exam from 3 hours prior. Findings: 1. ??Tubes and Lines: Again seen and there is a left-sided chest tube with tip terminating at the left upper lung. 2. ??Mediastinum: The cardiomediastinal silhouette is unremarkable. 3. ??Airways/Pleura/Lungs: There is new patchy opacity at the peripheral right mid to lower lung. No pneumothorax identified Evaluation for a pleural line again is somewhat limited by overlying extensive subcutaneous emphysema. Atelectasis is again noted at the left lung base. Flattening of the diaphragms consistent with emphysema is again seen. 4. ??Bones/Soft tissues/Visualized Abdomen: Again seen, extensive subcutaneous emphysema. Impression: New patchy opacity at the right lateral mid to lower lung. Otherwise no significant change from the prior exam. Procedure Note 08/14/2012 Examination: Chest X-ray History: pneumothorax, eval for recurrence after chest tube clamped; schedule for 1700 Technique: Two views of the chest were performed. Dual-energy technique with reconstructions in soft tissue and bone windows was used. Comparison is made with the prior exam from 3 hours prior. Findings: 1. Tubes and Lines: Again seen and there is a left-sided chest tube with tip terminating at the left upper lung. 2. Mediastinum: The cardiomediastinal silhouette is unremarkable. 3. Airways/Pleura/Lungs: There is new patchy opacity at the peripheral right mid to lower lung. No pneumothorax identified Evaluation for a pleural line again is somewhat limited by overlying extensive subcutaneous emphysema. Atelectasis is again noted at the left lung base. Flattening of the diaphragms consistent with emphysema is again seen. 4. Bones/Soft tissues/Visualized Abdomen: Again seen, extensive subcutaneous emphysema. Impression: New patchy opacity at the right lateral mid to lower lung. Otherwise no significant change from the prior exam. Adithya Newell MD IMG DIAGNOSTIC IMAGING ORDERABLES * PORTABLE CHEST 1 VIEW (08/14/2012 13:40 EDT) Anatomical Region Laterality Modality Other 08/14/2012 13:4 0 EDT 08/14/2012 14:41 EDT Narrative 08/14/2012 14:41 EDT PORTABLE CHEST 1 VIEW ??Aug 14, 2012 01:40:00 PM Signs and Symptoms/Comments: ?? chest tube acute respiratory failure Comparison: August 11 through August 13 Fines: The study was obtained with the patient elevated 60 degrees, similar to prior. No pneumothorax is visible on the left; however, extensive subcutaneous emphysema could obscure a pleural line. Atelectasis in the left base has improved and the lungs look clear elsewhere aside from interstitial disease. Flattened diaphragms suggest emphysema, however. The cardiac silhouette and pulmonary vascularity are normal the tip of left chest tube remains over the apex. Impression: No visible pneumothorax. These findings were discussed with Dr. Newell Procedure Note 08/14/2012 PORTABLE CHEST 1 VIEW Aug 14, 2012 01:40:00 PM Signs and Symptoms/Comments: chest tube acute respiratory failure Comparison: August 11 through August 13 Fines: The study was obtained with the patient elevated 60 degrees, similar to prior. No pneumothorax is visible on the left; however, extensive subcutaneous emphysema could obscure a pleural line. Atelectasis in the left base has improved and the lungs look clear elsewhere aside from interstitial disease. Flattened diaphragms suggest emphysema, however. The cardiac silhouette and pulmonary vascularity are normal the tip of left chest tube remains over the apex. Impression: No visible pneumothorax. These findings were discussed with Dr. Newell Vivek Thomas MD IMG DIAGNOSTIC IMAGI NG ORDERABLES * (ABNORMAL) HEMAGRAM (08/14/2012 5:37 EDT) WBC 9.78 4.0 - 10.4 K/cmm [facility] RBC 4.25(L) 4.36 - 5.78 M/cmm [facility] Hemoglobin 13.9 13.8 - 17.3 gm/dl [facility] HCT 41.6 39.5 - 50.2 % [facility] MCV 98(H) 81 - 95 fl [facility] MCH 32.6 27.6 - 33.0 pg [facility] MCHC 33.4 32.8 - 36.4 gm/dl [facility] PLT 243 141 - 320 K/cmm [facility] RDW-CV 16.4(H) 11.8 - 14.1 % [facility] Blood specimen (specimen) 08/14/2012 5:37 EDT 08/14/2012 6:12 EDT Aditi Trinidad MD HEMATOLOGY & PF4 ORD ERABLES [facility] [address] [place] [address] * PHOSPHORUS (08/14/2012 5:37 EDT) Phosphorus 4.5 2.5 - 4.5 mg/dl [facility] Blood specimen (specimen) 08/14/2012 5:37 EDT 08/14/2012 6:12 EDT Arnulfo Poe MD CHEMISTRY & BLOOD GA S ORDERABLES Performing Organization Address [facility] Co de Phone Number [facility] [address] [place] [address] * (ABNORMAL) CREATININE (08/14/2012 5:37 EDT) Creatinine 0.62(L) 0.66 - 1.25 mg/dl [facility] GFR, Calculated >60 >60 ml/min/1.7 3m2 [facility] Blood specimen (specimen) 08/14/2012 5:37 EDT 08/14/2012 6:12 EDT Arnulfo Poe MD CHEMISTRY & BLOOD GA S ORDERABLES Performing Organization Address [facility] Co de Phone Number [facility] [address] [place] [address] * BUN (08/14/2012 5:37 EDT) BUN 10 10 - 26 mg/dl [facility] Blood specimen (specimen) 08/14/2012 5:37 EDT 08/14/2012 6:12 EDT Arnulfo Poe MD CHEMISTRY & BLOOD GA S ORDERABLES Performing Organization Address [facility] de Phone Number [facility] [address] [place] [address] * (ABNORMAL) ELECTROLYTES (08/14/2012 5:37 EDT) Sodium 139 136 - 145 mEq/L [facility] Potassium 4.3 3.5 - 5.0 mEq/L [facility] Chloride 100 96 - 110 mEq/L [facility] CO2 33(H) 24 - 32 mEq/L [facility] Blood specimen (specimen) 08/14/2012 5:37 EDT 08/14/2012 6:12 EDT Arnulfo oPe MD CHEMISTRY & BLOOD GA S ORDERABLES Performing Organization Address [facility] Co de Phone Number [facility] [address] [place] [address] * (ABNORMAL) HEMAGRAM (08/13/2012 10:05 EDT) WBC 10.99(H) 4.0 - 10.4 K/cmm [facility] RBC 4.48 4.36 - 5.78 M/cmm [facility] Hemoglobin 14.6 13.8 - 17.3 gm/dl [facility] HCT 43.2 39.5 - 50.2 % [facility] MCV 96(H) 81 - 95 fl [facility] MCH 32.6 27.6 - 33.0 pg [facility] MCHC 33.8 32.8 - 36.4 gm/dl [facility] PLT 252 141 - 320 K/cmm [facility] RDW-CV 16.3(H) 11.8 - 14.1 % [facility] Blood specimen (specimen) 08/13/2012 10:05 EDT 08/13/2012 10:27 EDT Aditi Trinidad MD HEMATOLOGY & PF4 ORD ERABLES Performing Organization Address [facility] Co de Phone Number [facility] [address] [place] [address] * PORTABLE CHEST 1 VIEW (08/13/2012 8:47 EDT) Anatomical Region Laterality Modality Other 08/13/2012 8:47 EDT 08/13/2012 10:06 EDT Narrative 08/13/2012 10:06 EDT PORTABLE CHEST 1 VIEW ??Aug 13, 2012 08:47:00 AM Signs and Symptoms/Comments: ?? pneumothorax, chest tube Comparisons: August 12 Fines: Portable AP study was obtained with the patient elevated 60 degrees. No pneumothorax is visible. The tip of the left chest tube is in stable position just above and lateral to the aortic arch. Streaky bibasalar opacities likely reflect atelectasis. Extensive subcutaneous emphysema is present throughout the left chest wall and now extends into the right side of the neck. The cardiac silhouette and pulmonary vascularity are normal. Procedure Note 08/13/2012 PORTABLE CHEST 1 VIEW Aug 13, 2012 08:47:00 AM Signs and Symptoms/Comments: pneumothorax, chest tube Comparisons: August 12 Fines: Portable AP study was obtained with the patient elevated 60 degrees. No pneumothorax is visible. The tip of the left chest tube is in stable position just above and lateral to the aortic arch. Streaky bibasalar opacities likely reflect atelectasis. Extensive subcutaneous emphysema is present throughout the left chest wall and now extends into the right side of the neck. The cardiac silhouette and pulmonary vascularity are normal. Vivek Thomas MD IMG DIAGNOSTIC IMAGI NG ORDERABLES * PHOSPHORUS (08/13/2012 5:41 EDT) Phosphorus 4.1 2.5 - 4.5 mg/dl [facility] Blood specimen (specimen) 08/13/2012 5:41 EDT 08/13/2012 6:19 EDT Arnulfo Poe MD CHEMISTRY & BLOOD GA S ORDERABLES Performing Organization Address [facility] de Phone Number [facility] [address] [place] [address] * GLUCOSE, SERUM (08/13/2012 5:41 EDT) Glucose, Serum 87 70 - 100 mg/dl [facility] Blood specimen (specimen) 08/13/2012 5:41 EDT 08/13/2012 6:19 EDT Arnulfo Poe MD CHEMISTRY & BLOOD GA S ORDERABLES Performing Organization Address [facility] Co de Phone Number [facility] [address] [place] [address] * CREATININE (08/13/2012 5:41 EDT) Creatinine 0.74 0.66 - 1.25 mg/dl [facility] GFR, Calculated >60 >60 ml/min/1.7 3m2 [facility] Blood specimen (specimen) 08/13/2012 5:41 EDT 08/13/2012 6:19 EDT Arnulfo Poe MD CHEMISTRY & BLOOD GA S ORDERABLES Performing Organization Address [facility] Co de Phone Number [facility] [address] [place] [address] * BUN (08/13/2012 5:41 EDT) BUN 12 10 - 26 mg/dl [facility] Blood specimen (specimen) 08/13/2012 5:41 EDT 08/13/2012 6:19 EDT Arnulfo Poe MD CHEMISTRY & BLOOD GA S ORDERABLES Performing Organization Address [facility] de Phone Number [facility] [address] [place] [address] * ELECTROLYTES (08/13/2012 5:41 EDT) Sodium 139 136 - 145 mEq/L [facility] Potassium 4.1 3.5 - 5.0 mEq/L [facility] Chloride 100 96 - 110 mEq/L [facility] CO2 32 24 - 32 mEq/L [facility] Blood specimen (specimen) 08/13/2012 5:41 EDT 08/13/2012 6:19 EDT Arnulfo Poe MD CHEMISTRY & BLOOD GA S ORDERABLES Performing Organization Address [facility] de Phone Number [facility] [address] [place] [address] * (ABNORMAL) HEMAGRAM (08/12/2012 10:19 EDT) WBC 14.41(H) 4.0 - 10.4 K/cmm [facility] RBC 4.87 4.36 - 5.78 M/cmm [facility] Hemoglobin 16.0 13.8 - 17.3 gm/dl [facility] HCT 47.3 39.5 - 50.2 % [facility] MCV 97(H) 81 - 95 fl [facility] MCH 32.9 27.6 - 33.0 pg [facility] MCHC 33.8 32.8 - 36.4 gm/dl [facility] PLT 256 141 - 320 K/cmm [facility] RDW-CV 17.0(H) 11.8 - 14.1 % [facility] Blood specimen (specimen) 08/12/2012 10:19 EDT 08/12/2012 10:33 EDT Aditi Trinidad MD HEMATOLOGY & PF4 ORD ERABLES [facility] [address] [place] [address] * PORTABLE CHEST 1 VIEW (08/12/2012 9:30 EDT) Anatomical Region Laterality Modality Other 08/12/2012 9:30 EDT 08/12/2012 11:54 EDT Narrative 08/12/2012 11:54 EDT Portable chest August 12, 2012, 9:28 a.m. History: Respiratory failure, new chest tube placed Comparison: Multiple prior films including the most recent obtained 2 hours prior. There has been interval removal of the previously identified chest tube and placement of a new left-sided chest tube, the tip is projected over the mid lower chest. No pneumothorax is appreciated. There is subsegmental atelectasis at the left lung base. Extensive subcutaneous emphysema in the left chest and neck is similar to that seen previously. Interstitial markings are slightly prominent at the right lung base, the right lung otherwise appears clear. The cardiac silhouette is normal in size and the pulmonary vascularity appears normal. Procedure Note 08/12/2012 Portable chest August 12, 2012, 9:28 a.m. History: Respiratory failure, new chest tube placed Comparison: Multiple prior films including the most recent obtained 2 hours prior. There has been interval removal of the previously identified chest tube and placement of a new left-sided chest tube, the tip is projected over the mid lower chest. No pneumothorax is appreciated. There is subsegmental atelectasis at the left lung base. Extensive subcutaneous emphysema in the left chest and neck is similar to that seen previously. Interstitial markings are slightly prominent at the right lung base, the right lung otherwise appears clear. The cardiac silhouette is normal in size and the pulmonary vascularity appears normal. Vivek Thomas MD IMG DIAGNOSTIC IMAGI NG ORDERABLES * PORTABLE CHEST 1 VIEW (08/12/2012 7:24 EDT) Anatomical Region Laterality Modality Other 08/12/2012 7:24 EDT 08/12/2012 10:25 EDT Narrative 08/12/2012 10:25 EDT PORTABLE CHEST 1 VIEW ??Aug 12, 2012 07:24:00 AM Clinical history/Comments: s/p chest tube placement - pneumothorax added from previous exam report - HJW Comparison: Two hours prior Findings: Upright frontal radiographs of the chest show interval placement of a new large caliber chest tube. The side port of the chest tube is outside of the thoracic cage and there is increasing subcutaneous emphysema. The pneumothorax has improved but persists. There is streaky opacity in the left base and obscuration of the left hemidiaphragm which likely reflects atelectasis. The cardio mediastinal silhouette is normal for technique and shows no shift. Dr. Finley reviewed the case with GORGE JAMES MD at 7:40 a.m. on 08/12/2012. I have personally reviewed the images and the above interpretation and agree with the findings. Procedure Note Lenard Finley MD - 08/12/2012 PORTABLE CHEST 1 VIEW Aug 12, 2012 07:24:00 AM Clinical history/Comments: s/p chest tube placement - pneumothorax added from previous exam report - HJW Comparison: Two hours prior Findings: Upright frontal radiographs of the chest show interval placement of a new large caliber chest tube. The side port of the chest tube is outside of the thoracic cage and there is increasing subcutaneous emphysema. The pneumothorax has improved but persists. There is streaky opacity in the left base and obscuration of the left hemidiaphragm which likely reflects atelectasis. The cardio mediastinal silhouette is normal for technique and shows no shift. Dr. Finley reviewed the case with GORGE JAMES MD at 7:40 a.m. on 08/12/2012. I have personally reviewed the images and the above interpretation and agree with the findings. Gorge James MD IMG DIAGNOSTIC IMAG ING ORDERABLES * PLT (08/12/2012 5:30 EDT) PLT 235 141 - 320 K/cmm [facility] Blood specimen (specimen) 08/12/2012 5:30 EDT 08/12/2012 6:35 EDT Francisco Lundberg MD HEMATOLOGY & PF4 ORD ERABLES Performing Organization Address [facility] Co de Phone Number [facility] [address] [place] [address] * (ABNORMAL) PHOSPHORUS (08/12/2012 5:30 EDT) Phosphorus 4.8(H) 2.5 - 4.5 mg/dl [facility] Blood specimen (specimen) 08/12/2012 5:30 EDT 08/12/2012 6:35 EDT Arnulfo Poe MD CHEMISTRY & BLOOD GA S ORDERABLES Performing Organization Address [facility] Phone Number [facility] [address] [place] [address] * GLUCOSE, SERUM (08/12/2012 5:30 EDT) Glucose, Serum 89 70 - 100 mg/dl [facility] Blood specimen (specimen) 08/12/2012 5:30 EDT 08/12/2012 6:35 EDT Arnulfo Poe MD CHEMISTRY & BLOOD GA S ORDERABLES Performing Organization Address [facility] de Phone Number [facility] [address] [place] [address] * CREATININE (08/12/2012 5:30 EDT) Creatinine 0.67 0.66 - 1.25 mg/dl [facility] GFR, Calculated >60 >60 ml/min/1.7 3m2 [facility] Blood specimen (specimen) 08/12/2012 5:30 EDT 08/12/2012 6:35 EDT Arnulfo Poe MD CHEMISTRY & BLOOD GA S ORDERABLES Performing Organization Address [facility] Phone Number [facility] [address] [place] [address] * (ABNORMAL) BUN (08/12/2012 5:30 EDT) BUN 9(L) 10 - 26 mg/dl [facility] Blood specimen (specimen) 08/12/2012 5:30 EDT 08/12/2012 6:35 EDT Arnulfo Poe MD CHEMISTRY & BLOOD GA S ORDERABLES Performing Organization Address [facility] Phone Number [facility] [address] [place] [address] * (ABNORMAL) ELECTROLYTES (08/12/2012 5:30 EDT) Sodium 141 136 - 145 mEq/L [facility] Potassium 4.2 3.5 - 5.0 mEq/L [facility] Chloride 98 96 - 110 mEq/L [facility] CO2 33(H) 24 - 32 mEq/L [facility] Blood specimen (specimen) 08/12/2012 5:30 EDT 08/12/2012 6:35 EDT Arnulfo Poe MD CHEMISTRY & BLOOD GA S ORDERABLES Performing Organization Address [facility] Phone Number [facility] [address] [place] [address] * PORTABLE CHEST 1 VIEW (08/12/2012 5:12 EDT) Anatomical Region Laterality Modality Other 08/12/2012 5:12 EDT 08/12/2012 10:29 EDT Narrative 08/12/2012 10:29 EDT PORTABLE CHEST 1 VIEW ??Aug 12, 2012 05:12:00 AM Clinical history/Comments: pneumothorax, s/p chest tube placement, worsening crepitus, desat to 80's Comparison: One day prior Findings: Semiupright portable radiograph of the chest show a large left pneumothorax. There is an increasing amount of subcutaneous air over the left chest wall. The left-sided pleural pigtail has been pulled back so the pigtail is approximated against the ribs. There is blunting of the costophrenic angles bilaterally. No mediastinal shift is seen. Impression: Recurrent left moderate to large pneumothorax secondary to malpositioned pleural drain. Dr. Finley reviewed the case with GORGE JAMES MD immediately upon discovery of the abdomen on the at 5:20 a.m. on 08/12/2012. He signified understanding of the finding. I have personally reviewed the images and the above interpretation and agree with the findings. Procedure Note Lenard Finley MD - 08/12/2012 PORTABLE CHEST 1 VIEW Aug 12, 2012 05:12:00 AM Clinical history/Comments: pneumothorax, s/p chest tube placement, worsening crepitus, desat to 80's Comparison: One day prior Findings: Semiupright portable radiograph of the chest show a large left pneumothorax. There is an increasing amount of subcutaneous air over the left chest wall. The left-sided pleural pigtail has been pulled back so the pigtail is approximated against the ribs. There is blunting of the costophrenic angles bilaterally. No mediastinal shift is seen. Impression: Recurrent left moderate to large pneumothorax secondary to malpositioned pleural drain. Dr. Finley reviewed the case with GORGE JAMES MD immediately upon discovery of the abdomen on the at 5:20 a.m. on 08/12/2012. He signified understanding of the finding. I have personally reviewed the images and the above interpretation and agree with the findings. Gorge James MD IMG DIAGNOSTIC IMAG ING ORDERABLES * PHOSPHORUS (08/11/2012 5:39 EDT) Phosphorus 3.9 2.5 - 4.5 mg/dl [facility] Blood specimen (specimen) 08/11/2012 5:39 EDT 08/11/2012 6:23 EDT Arnulfo Poe MD CHEMISTRY & BLOOD GA S ORDERABLES Performing Organization Address City/[facility]/ZIP Co de Phone Number [facility] [address] [place] [address] * GLUCOSE, SERUM (08/11/2012 5:39 EDT) Glucose, Serum 93 70 - 100 mg/dl [facility] Blood specimen (specimen) 08/11/2012 5:39 EDT 08/11/2012 6:23 EDT Arnulfo Poe MD CHEMISTRY & BLOOD GA S ORDERABLES Performing Organization Address [facility] Co de Phone Number [facility] [address] [place] [address] * (ABNORMAL) CREATININE (08/11/2012 5:39 EDT) Creatinine 0.61(L) 0.66 - 1.25 mg/dl [facility] GFR, Calculated >60 >60 ml/min/1.7 3m2 [facility] Blood specimen (specimen) 08/11/2012 5:39 EDT 08/11/2012 6:23 EDT Arnulfo Poe MD CHEMISTRY & BLOOD GA S ORDERABLES Performing Organization Address [facility] Co de Phone Number [facility] [address] [place] [address] * (ABNORMAL) BUN (08/11/2012 5:39 EDT) BUN 7(L) 10 - 26 mg/dl [facility] Blood specimen (specimen) 08/11/2012 5:39 EDT 08/11/2012 6:23 EDT Arnulfo Poe MD CHEMISTRY & BLOOD GA S ORDERABLES Performing Organization Address City/[facility]/ZIP Co de Phone Number [facility] [address] [place] [address] * ELECTROLYTES (08/11/2012 5:39 EDT) Sodium 140 136 - 145 mEq/L [facility] Potassium 3.8 3.5 - 5.0 mEq/L [facility] Chloride 101 96 - 110 mEq/L [facility] CO2 31 24 - 32 mEq/L [facility] Blood specimen (specimen) 08/11/2012 5:39 EDT 08/11/2012 6:23 EDT Arnulfo Poe MD CHEMISTRY & BLOOD GA S ORDERABLES Performing Organization Address [facility] de Phone Number [facility] [address] [place] [address] * MAGNESIUM (08/11/2012 5:39 EDT) Magnesium 2.0 1.7 - 2.8 mg/dl [facility] Blood specimen (specimen) 08/11/2012 5:39 EDT 08/11/2012 6:23 EDT Arnulfo Poe MD CHEMISTRY & BLOOD GA S ORDERABLES Performing Organization Address [facility] de Phone Number [facility] [address] [place] [address] * PORTABLE CHEST 1 VIEW (08/11/2012 3:27 EDT) Anatomical Region Laterality Modality Other 08/11/2012 3:27 EDT 08/11/2012 9:35 EDT Narrative 08/11/2012 9:35 EDT PORTABLE CHEST 1 VIEW ??Aug 11, 2012 03:27:00 AM CLINICAL INDICATION(S)/SIGNS/SYMPTOMS/COMMENTS: ??worsening pneumothorax, patient back on suction, repeat CXR to reassess COMPARISON: 08/11/2012 and 08/10/2012 multiple prior exams. Findings: A left pigtail catheter overlies the lateral mid to lower lung. There is subcutaneous air within the left axilla. A small left apical pneumothorax remains but is decreased in size since the prior examination. There is a small streaky opacity above the right diaphragm which likely reflects atelectasis. The lungs are otherwise clear. The cardiac mediastinal silhouette remains normal in contour. No pleural effusion is identified. IMPRESSION: 1. Small left apical pneumothorax remains. 2. There may be some subsegmental atelectasis above the right diaphragm. I have personally reviewed the images and the above interpretation and agree with the findings. Procedure Note Elfego Barbour MD - 08/11/2012 PORTABLE CHEST 1 VIEW Aug 11, 2012 03:27:00 AM CLINICAL INDICATION(S)/SIGNS/SYMPTOMS/COMMENTS: worsening pneumothorax, patient back on suction, repeat CXR to reassess COMPARISON: 08/11/2012 and 08/10/2012 multiple prior exams. Findings: A left pigtail catheter overlies the lateral mid to lower lung. There is subcutaneous air within the left axilla. A small left apical pneumothorax remains but is decreased in size since the prior examination. There is a small streaky opacity above the right diaphragm which likely reflects atelectasis. The lungs are otherwise clear. The cardiac mediastinal silhouette remains normal in contour. No pleural effusion is identified. IMPRESSION: 1. Small left apical pneumothorax remains. 2. There may be some subsegmental atelectasis above the right diaphragm. I have personally reviewed the images and the above interpretation and agree with the findings. Gorge James MD IMG DIAGNOSTIC IMAG ING ORDERABLES * PORTABLE CHEST 1 VIEW (08/11/2012 1:52 EDT) Anatomical Region Laterality Modality Other 08/11/2012 1:52 EDT 08/11/2012 9:37 EDT Narrative 08/11/2012 9:37 EDT PORTABLE CHEST 1 VIEW ??Aug 11, 2012 01:52:00 AM CLINICAL INDICATION(S)/SIGNS/SYMPTOMS/COMMENTS: ??known pneumothorax, s/p chest tube placement, now clamped after improvement on previous CXR and desats to 88-92% on 2L NC COMPARISON: 08/10/2012 chest x-ray. Findings: The cardiac silhouette and pulmonary vasculature remain normal. A left pigtail catheter overlies the midlung. A moderate to large left pneumothorax is present. ??No mediastinal shift is identified. The right lung remains clear. Elfego Barbour MD discussed findings with GORGE JAMES MD, at the time of dictation. I have personally reviewed the images and the above interpretation and agree with the findings. Procedure Note Elfego Barbour MD - 08/11/2012 PORTABLE CHEST 1 VIEW Aug 11, 2012 01:52:00 AM CLINICAL INDICATION(S)/SIGNS/SYMPTOMS/COMMENTS: known pneumothorax, s/p chest tube placement, now clamped after improvement on previous CXR and desats to 88-92% on 2L NC COMPARISON: 08/10/2012 chest x-ray. Findings: The cardiac silhouette and pulmonary vasculature remain normal. A left pigtail catheter overlies the midlung. A moderate to large left pneumothorax is present. No mediastinal shift is identified. The right lung remains clear. Elfego Barbour MD discussed findings with GORGE JAMES MD, at the time of dictation. I have personally reviewed the images and the above interpretation and agree with the findings. Gorge James MD IMG DIAGNOSTIC IMAG ING ORDERABLES * PORTABLE CHEST 1 VIEW (08/10/2012 22:44 EDT) Anatomical Region Laterality Modality Other 08/10/2012 22:4 4 EDT 08/11/2012 9:41 EDT Narrative 08/11/2012 9:41 EDT PORTABLE CHEST 1 VIEW ??Aug 10, 2012 10:44:00 PM CLINICAL INDICATION(S)/SIGNS/SYMPTOMS/COMMENTS: ??examine for interval change in left pneumothorax COMPARISON: 08/10/2012 and 08/09/2012. Findings: The left pigtail catheter has been retracted since the prior examination and now overlies the left midlung. A small left apical pneumothorax is again identified and given differences in positioning has not significantly changed from the prior examination. The cardiac silhouette and pulmonary vasculature remain normal for technique. The lungs are clear. A left subclavian central venous catheter has been removed. Impression: 1. Left pigtail catheter has been retracted since the prior examination however the side ports remain within the thoracic cavity. 2. Small left pneumothorax remains. 3. ??Interval removal of left subclavian central line. I have personally reviewed the images and the above interpretation and agree with the findings. Procedure Note Elfego Barbour MD - 08/11/2012 PORTABLE CHEST 1 VIEW Aug 10, 2012 10:44:00 PM CLINICAL INDICATION(S)/SIGNS/SYMPTOMS/COMMENTS: examine for interval change in left pneumothorax COMPARISON: 08/10/2012 and 08/09/2012. Findings: The left pigtail catheter has been retracted since the prior examination and now overlies the left midlung. A small left apical pneumothorax is again identified and given differences in positioning has not significantly changed from the prior examination. The cardiac silhouette and pulmonary vasculature remain normal for technique. The lungs are clear. A left subclavian central venous catheter has been removed. Impression: 1. Left pigtail catheter has been retracted since the prior examination however the side ports remain within the thoracic cavity. 2. Small left pneumothorax remains. 3. Interval removal of left subclavian central line. I have personally reviewed the images and the above interpretation and agree with the findings. Arnulfo Poe MD IMG DIAGNOSTIC IMAGI NG ORDERABLES * PORTABLE CHEST 1 VIEW (08/10/2012 6:20 EDT) Anatomical Region Laterality Modality Other 08/10/2012 6:20 EDT 08/10/2012 9:50 EDT Narrative 08/10/2012 9:50 EDT PORTABLE CHEST 1 VIEW ??Aug 10, 2012 06:20:00 AM Signs and Symptoms/Comments: ?? Increased o2 sat, crackles RLL Impression: 1. Persisting small left pneumothorax. 2. Improved inflation of the lung. Comparison: Since 14 hours prior, the pneumothorax space on this semiupright chest appear slightly larger. A pigtail catheter now projects over the left axillary pleura. The left subclavian central line is into the proximal SVC. There is still perihilar haze and more coalescent opacity seen in the right infrahilar region than the left likely reflecting improving aspiration pneumonia. Procedure Note 08/10/2012 PORTABLE CHEST 1 VIEW Aug 10, 2012 06:20:00 AM Signs and Symptoms/Comments: Increased o2 sat, crackles RLL Impression: 1. Persisting small left pneumothorax. 2. Improved inflation of the lung. Comparison: Since 14 hours prior, the pneumothorax space on this semiupright chest appear slightly larger. A pigtail catheter now projects over the left axillary pleura. The left subclavian central line is into the proximal SVC. There is still perihilar haze and more coalescent opacity seen in the right infrahilar region than the left likely reflecting improving aspiration pneumonia. Thanh Fischer MD [facility]G DIAGNOSTIC [facility] ORDERABLES * BACTERIAL CULTURE/SMEAR, RESPIRATORY (08/10/2012 4:12 EDT) Specimen Description Sputum [facility] Gram Smear Result Many Polys [facility] Gram Smear Result Few Squamous epithelial cells [facility] Gram Smear Result Many Gram positive cocci [facility] Gram Smear Result Few Mixed gram positive and gram negative organisms [facility] Gram Smear Result Mucus present [facility] Result Mod Usual mg-pharyngeal bimal [facility] Report Status 08/12/2012 Final [facility] Specimen of unknown material (specimen) SPUTUM / Unknown 08/10/2012 4:12 EDT 08/10/2012 7:49 EDT Kan Clark DO MICROBIOLOGY - GENER AL ORDERABLES [facility] [address] [place] [address] * (ABNORMAL) HEMAGRAM (08/10/2012 2:56 EDT) WBC 12.26(H) 4.0 - 10.4 K/cmm [facility] RBC 4.24(L) 4.36 - 5.78 M/cmm [facility] Hemoglobin 13.6(L) 13.8 - 17.3 gm/dl [facility] HCT 40.7 39.5 - 50.2 % [facility] MCV 96(H) 81 - 95 fl [facility] MCH 32.0 27.6 - 33.0 pg [facility] MCHC 33.3 32.8 - 36.4 gm/dl [facility] PLT 184 141 - 320 K/cmm [facility] RDW-CV 16.4(H) 11.8 - 14.1 % [facility] Blood specimen (specimen) 08/10/2012 2:56 EDT 08/10/2012 3:13 EDT Kan Clark DO HEMATOLOGY & PF4 ORD ERABLES Performing Organization Address [facility] Co de Phone Number [facility] [address] [place] [address] * (ABNORMAL) CK (08/10/2012 2:56 EDT) CK 1112(H) 0 - 250 U/L [facility] Blood specimen (specimen) 08/10/2012 2:56 EDT 08/10/2012 3:13 EDT Thanh Fischer MD CHEMISTRY & BLOOD GAS ORDERABLES Performing Organization Address [facility] Co de Phone Number [facility] [address] [place] [address] * (ABNORMAL) PHOSPHORUS (08/10/2012 2:56 EDT) Phosphorus 1.3(L) 2.5 - 4.5 mg/dl [facility] Blood specimen (specimen) 08/10/2012 2:56 EDT 08/10/2012 3:13 EDT Arnulfo Poe MD CHEMISTRY & BLOOD GA S ORDERABLES Performing Organization Address [facility] de Phone Number [facility] [address] [place] [address] * GLUCOSE, SERUM (08/10/2012 2:56 EDT) Glucose, Serum 96 70 - 100 mg/dl [facility] Blood specimen (specimen) 08/10/2012 2:56 EDT 08/10/2012 3:13 EDT Arnulfo Poe MD CHEMISTRY & BLOOD GA S ORDERABLES Performing Organization Address [facility] Co de Phone Number [facility] [address] [place] [address] * (ABNORMAL) CREATININE (08/10/2012 2:56 EDT) Creatinine 0.52(L) 0.66 - 1.25 mg/dl [facility] GFR, Calculated >60 >60 ml/min/1.7 3m2 [facility] Blood specimen (specimen) 08/10/2012 2:56 EDT 08/10/2012 3:13 EDT Arnulfo Poe MD CHEMISTRY & BLOOD GA S ORDERABLES Performing Organization Address [facility] de Phone Number [facility] [address] [place] [address] * (ABNORMAL) BUN (08/10/2012 2:56 EDT) BUN 5(L) 10 - 26 mg/dl [facility] Blood specimen (specimen) 08/10/2012 2:56 EDT 08/10/2012 3:13 EDT Arnulfo Poe MD CHEMISTRY & BLOOD GA S ORDERABLES Performing Organization Address [facility] Phone Number [facility] [address] [place] [address] * ELECTROLYTES (08/10/2012 2:56 EDT) Sodium 138 136 - 145 mEq/L [facility] Potassium 3.5 3.5 - 5.0 mEq/L [facility] Chloride 101 96 - 110 mEq/L [facility] CO2 31 24 - 32 mEq/L [facility] Blood specimen (specimen) 08/10/2012 2:56 EDT 08/10/2012 3:13 EDT Arnulfo Poe MD CHEMISTRY & BLOOD GA S ORDERABLES Performing Organization Address [facility] de Phone Number [facility] [address] [place] [address] * MAGNESIUM (08/10/2012 2:56 EDT) Magnesium 2.0 1.7 - 2.8 mg/dl [facility] Blood specimen (specimen) 08/10/2012 2:56 EDT 08/10/2012 3:13 EDT Arnulfo Poe MD CHEMISTRY & BLOOD GA S ORDERABLES Performing Organization Address [facility] Co de Phone Number [facility] [address] [place] [address] * (ABNORMAL) CK MB WITH TOTAL CK (08/09/2012 21:56 EDT) CK 1349(H) 0 - 250 U/L [facility] MB 4.20 <4.21 ng/ml [facility] Blood specimen (specimen) 08/09/2012 21:56 EDT 08/09/2012 22:07 EDT Trenton Vela MD CHEMISTRY & BLOOD GA S ORDERABLES Performing Organization Address [facility] Co de Phone Number [facility] [address] [place] [address] * TROPONIN I (08/09/2012 21:56 EDT) Troponin I (ng/mL) <0.034 <0.034 ng/ml [facility] Blood specimen (specimen) 08/09/2012 21:56 EDT 08/09/2012 22:07 EDT Trenton Vela MD CHEMISTRY & BLOOD GA S ORDERABLES Performing Organization Address [facility] Phone Number [facility] [address] [place] [address] * PORTABLE CHEST 1 VIEW (08/09/2012 16:07 EDT) Anatomical Region Laterality Modality Other 08/09/2012 16:0 7 EDT 08/09/2012 16:20 EDT Narrative 08/09/2012 16:20 EDT PORTABLE CHEST 1 VIEW ??Aug 09, 2012 04:07:00 PM Signs and Symptoms/Comments: ?? PNX Impression: 1. Increasing perihilar infiltrative lung change perhaps related to aspiration pneumonia. 2. Left pleural drain unchanged. 3. Tiny residual left pneumothorax. Comparison: There increasing perihilar haze and coalescing reticular opacities more extensive in the right infrahilar lung than the left but are bilateral. There is a focal area of coalescence at the inferior pole of the right scapula in the right midlung. The visceral pleural line on the left is seen for a short segment along the left axillary pleura. A left central line to the SVC is unchanged. The patient has been extubated and the transesophageal tube removed. The costophrenic angles are not included on the current semiupright portable AP view. Procedure Note 08/09/2012 PORTABLE CHEST 1 VIEW Aug 09, 2012 04:07:00 PM Signs and Symptoms/Comments: PNX Impression: 1. Increasing perihilar infiltrative lung change perhaps related to aspiration pneumonia. 2. Left pleural drain unchanged. 3. Tiny residual left pneumothorax. Comparison: There increasing perihilar haze and coalescing reticular opacities more extensive in the right infrahilar lung than the left but are bilateral. There is a focal area of coalescence at the inferior pole of the right scapula in the right midlung. The visceral pleural line on the left is seen for a short segment along the left axillary pleura. A left central line to the SVC is unchanged. The patient has been extubated and the transesophageal tube removed. The costophrenic angles are not included on the current semiupright portable AP view. Thanh Fischer MD IMG DIAGNOSTIC [facility] ORDERABLES * EKG 12-LEAD (08/09/2012 8:34 EDT) 08/09/2012 8:34 EDT Narrative [facility] - 08/14/2012 10:45 EDT ?[facility] ? Test Date: ?2012-08-09 Pat Name: ? GARRET DAUGHERTY ?Department: ?? [place] [facility] ? Room: ? M412 Gender: ? M ?Money Manager: ?? [id number] : ?1975 ? Requested By: ARNULFO POE MD Order Number: [id number] ?Reading MD: ?? EDVIN MILLER MD ? Measurements Intervals ?Graham ? Rate: ? 85 ? P: ?27 UT: ? 128 ?QRS: ?92 QRSD: ? 90 ? T: ?63 QT: ? 404 ? QTc: ?447 ? Interpretive Statements SINUS RHYTHM BORDERLINE RIGHT AXIS DEVIATION Compared to ECG 08/08/2012 23:47:25 No significant changes Electronically Signed On 08-14-12 10:45:22 EDT by EDVIN MILLER MD Procedure Note Edvin Miller MD - 08/14/2012 [facility] Test Date: 2012-08-09 Pat Name: GARRET DAUGHERTY Department: [place] [address] Room: [facility] Gender: M Money Manager: [id number] : 1975 Requested By: ARNULFO POE MD Order Number: [id number] Reading MD: EDVIN MILLER MD Measurements Intervals Graham Rate: 85 P: 27 UT: 128 QRS: 92 QRSD: 90 T: 63 QT: 404 QTc: 447 Interpretive Statements SINUS RHYTHM BORDERLINE RIGHT AXIS DEVIATION Compared to ECG 08/08/2012 23:47:25 No significant changes Electronically Signed On 08-14-12 10:45:22 EDT by EDVIN MILLER MD Arnulfo Poe MD CARDIAC ECG ORDERABL ES Performing Organization Address [facility] Co de Phone Number [facility] [address] [place] [address] * (ABNORMAL) CK MB WITH TOTAL CK (08/09/2012 7:50 EDT) CK 987(H) 0 - 250 U/L [facility] MB 3.66 <4.21 ng/ml [facility] Blood specimen (specimen) 08/09/2012 7:50 EDT 08/09/2012 8:00 EDT Trenton Vela MD CHEMISTRY & BLOOD GA S ORDERABLES Performing Organization Address [facility] Co de Phone Number [facility] [address] [place] [address] * TROPONIN I (08/09/2012 7:50 EDT) Troponin I (ng/mL) <0.034 <0.034 ng/ml [facility] Blood specimen (specimen) 08/09/2012 7:50 EDT 08/09/2012 8:00 EDT Trenton Vela MD CHEMISTRY & BLOOD GA S ORDERABLES [facility] [address] [place] [address] * PORTABLE CHEST PA CENTRAL LINE/PICC/ET TUBE,INITIAL INSERTION (08/09/2012 4:31 EDT) Anatomical Region Laterality Modality Other 08/09/2012 4:31 EDT 08/09/2012 12:07 EDT Narrative 08/09/2012 12:07 EDT PORTABLE CHEST 1 VIEW INITIAL LINE, ET INSERTION ??Aug 09, 2012 04:31:00 AM Clinical history/Comments: Pneumothorax, overdose, central line placed Comparison: One hour prior Findings: A semiupright portable radiograph of the chest shows interval insertion of a left subclavian central venous catheter, whose tip terminates in the mid to upper superior vena cava. The endotracheal tube gastric sump tube and left pleural drain appear unchanged. The pulmonary vasculature remains somewhat indistinct consistent with edema. The cardiomediastinal silhouette is of normal size for technique. I have personally reviewed the images and the above interpretation and agree with the findings. Procedure Note Lenard Finley MD - 08/09/2012 PORTABLE CHEST 1 VIEW INITIAL LINE, ET INSERTION Aug 09, 2012 04:31:00 AM Clinical history/Comments: Pneumothorax, overdose, central line placed Comparison: One hour prior Findings: A semiupright portable radiograph of the chest shows interval insertion of a left subclavian central venous catheter, whose tip terminates in the mid to upper superior vena cava. The endotracheal tube gastric sump tube and left pleural drain appear unchanged. The pulmonary vasculature remains somewhat indistinct consistent with edema. The cardiomediastinal silhouette is of normal size for technique. I have personally reviewed the images and the above interpretation and agree with the findings. Selena Mejía MD IMG DIAGNO STIC IMAGING ORDERABLES * PHOSPHORUS (08/09/2012 4:00 EDT) Phosphorus 3.2 2.5 - 4.5 mg/dl [facility] Blood specimen (specimen) 08/09/2012 4:00 EDT 08/09/2012 4:15 EDT Arnulfo Poe MD CHEMISTRY & BLOOD GA S ORDERABLES Performing Organization Address [facility] Co de Phone Number [facility] [address] [place] [address] * (ABNORMAL) GLUCOSE, SERUM (08/09/2012 4:00 EDT) Glucose, Serum 138(H) 70 - 100 mg/dl [facility] Blood specimen (specimen) 08/09/2012 4:00 EDT 08/09/2012 4:15 EDT Arnulfo Poe MD CHEMISTRY & BLOOD GA S ORDERABLES Performing Organization Address [facility] Phone Number [facility] [address] [place] [address] * (ABNORMAL) CREATININE (08/09/2012 4:00 EDT) Creatinine 0.47(L) 0.66 - 1.25 mg/dl [facility] GFR, Calculated >60 >60 ml/min/1.7 3m2 [facility] Blood specimen (specimen) 08/09/2012 4:00 EDT 08/09/2012 4:15 EDT Arnulfo Poe MD CHEMISTRY & BLOOD GA S ORDERABLES Performing Organization Address [facility] de Phone Number [facility] [address] [place] [address] * BUN (08/09/2012 4:00 EDT) BUN 11 10 - 26 mg/dl [facility] Blood specimen (specimen) 08/09/2012 4:00 EDT 08/09/2012 4:15 EDT Arnulfo Poe MD CHEMISTRY & BLOOD GA S ORDERABLES Performing Organization Address [facility] de Phone Number [facility] [address] [place] [address] * ELECTROLYTES (08/09/2012 4:00 EDT) Sodium 139 136 - 145 mEq/L [facility] Potassium 4.8 3.5 - 5.0 mEq/L [facility] Chloride 104 96 - 110 mEq/L [facility] CO2 30 24 - 32 mEq/L [facility] Blood specimen (specimen) 08/09/2012 4:00 EDT 08/09/2012 4:15 EDT Arnulfo Poe MD CHEMISTRY & BLOOD GA S ORDERABLES Performing Organization Address [facility] de Phone Number [facility] [address] [place] [address] * MAGNESIUM (08/09/2012 4:00 EDT) Magnesium 2.0 1.7 - 2.8 mg/dl [facility] Blood specimen (specimen) 08/09/2012 4:00 EDT 08/09/2012 4:15 EDT Arnulfo Poe MD CHEMISTRY & BLOOD GA S ORDERABLES Performing Organization Address [facility] Phone Number [facility] [address] [place] [id number] * PORTABLE CHEST 1 VIEW (08/09/2012 3:29 EDT) Anatomical Region Laterality Modality Other 08/09/2012 3:29 EDT 08/09/2012 12:04 EDT Narrative 08/09/2012 12:04 EDT PORTABLE CHEST 1 VIEW ??Aug 09, 2012 03:29:00 AM Clinical history/Comments: acute respiratory failure, pneumothorax, s/p chest tube on left Comparison: 45 minutes prior Findings: A semisupine portable radiograph of the chest was obtained. The endotracheal tube is in stable position at the thoracic inlet. The gastric sump tube terminates beyond the edge of the image, but the sidehole is beyond the gastroesophageal junction. A newly placed left pigtail pleural drain projects over the lower left hemithorax. There is a small amount of subcutaneous air. No pleural line is identified. A residual anterior pneumothorax is not excluded. The pulmonary vasculature is indistinct with perihilar haze, consistent with pulmonary edema. The cardiomediastinal silhouette is normal for technique. Numerous tiny nodules in both lungs, left greater than right may reflect granulomas. Impression: Apparent resolution of pneumothorax status post left chest tube placement, although a residual anterior pneumothorax is not excluded on this nearly supine radiograph. I have personally reviewed the images and the above interpretation and agree with the findings. Procedure Note Lenard Finley MD - 08/09/2012 PORTABLE CHEST 1 VIEW Aug 09, 2012 03:29:00 AM Clinical history/Comments: acute respiratory failure, pneumothorax, s/p chest tube on left Comparison: 45 minutes prior Findings: A semisupine portable radiograph of the chest was obtained. The endotracheal tube is in stable position at the thoracic inlet. The gastric sump tube terminates beyond the edge of the image, but the sidehole is beyond the gastroesophageal junction. A newly placed left pigtail pleural drain projects over the lower left hemithorax. There is a small amount of subcutaneous air. No pleural line is identified. A residual anterior pneumothorax is not excluded. The pulmonary vasculature is indistinct with perihilar haze, consistent with pulmonary edema. The cardiomediastinal silhouette is normal for technique. Numerous tiny nodules in both lungs, left greater than right may reflect granulomas. Impression: Apparent resolution of pneumothorax status post left chest tube placement, although a residual anterior pneumothorax is not excluded on this nearly supine radiograph. I have personally reviewed the images and the above interpretation and agree with the findings. Jossie [facility] MD IMG DIAGNOSTIC [facility] ORDERABLES * PORTABLE CHEST 1 VIEW (08/09/2012 2:46 EDT) Anatomical Region Laterality Modality Other 08/09/2012 2:46 EDT 08/09/2012 12:10 EDT Narrative 08/09/2012 12:10 EDT PORTABLE CHEST 1 VIEW ??Aug 09, 2012 02:46:00 AM Clinical history/Comments: Respiratory failure, overdose, concern for pneumothorax s/p central line attempt. Comparison: Nine hours prior A semiupright portable radiograph of the chest shows the endotracheal tube in stable position at the level of the thoracic inlet. A gastric sump tube terminates beyond the edge of the examination. There is a moderate sized left pneumothorax. There is no significant mediastinal shift. The right lung vascular structures are mildly indistinct indicating a component of interstitial edema. Tiny nodules in both lungs, but greater on the left, may reflect granulomas. The cardiomediastinal silhouette is normal for technique. Impression: Left pneumothorax. Dr. Finley reviewed the case with TRENTON VELA MD at 3:00 a.m. on 08/09/2012. I have personally reviewed the images and the above interpretation and agree with the findings. Procedure Note Lenard Finley MD - 08/09/2012 PORTABLE CHEST 1 VIEW Aug 09, 2012 02:46:00 AM Clinical history/Comments: Respiratory failure, overdose, concern for pneumothorax s/p central line attempt. Comparison: Nine hours prior A semiupright portable radiograph of the chest shows the endotracheal tube in stable position at the level of the thoracic inlet. A gastric sump tube terminates beyond the edge of the examination. There is a moderate sized left pneumothorax. There is no significant mediastinal shift. The right lung vascular structures are mildly indistinct indicating a component of interstitial edema. Tiny nodules in both lungs, but greater on the left, may reflect granulomas. The cardiomediastinal silhouette is normal for technique. Impression: Left pneumothorax. Dr. Finley reviewed the case with TRENTON VELA MD at 3:00 a.m. on 08/09/2012. I have personally reviewed the images and the above interpretation and agree with the findings. Trenton Vela MD IMG DIAGNOSTIC IM[facility]I NG ORDERABLES * INPATIENT ADD-ON (08/09/2012 0:45 EDT) Tests to be added TCA LEVEL [facility] Number for problems Not Given [facility] Accession number Not Given [facility] Comment: (Note) SPOKE WITH DOCTOR 08/09/2012 0:45 EDT 08/09/2012 0:53 EDT Trenton Vela MD HEMATOLOGY & PF4 ORD ERABLES Performing Organization Address City/[facility] Co de Phone Number [facility] [address] [place] [address] * INPATIENT ADD-ON (08/09/2012 0:25 EDT) Tests to be added CKMB,TROPO EVELYN [facility] Number for problems Not Given [facility] Accession number [id number] [facility] 08/09/2012 0:25 EDT 08/09/2012 0:33 EDT Trenton Vela MD HEMATOLOGY & PF4 ORD KAMIAHBLES Performing Organization Address [facility] Co de Phone Number [facility] [address] [place] [address] * EKG 12-LEAD (08/08/2012 23:47 EDT) 08/08/2012 23:4 7 EDT Narrative [facility] - 08/14/2012 15:20 EDT ?[facility] ? Test Date: ?2012-08-08 Pat Name: ? GARRET DAUGHERTY ?Department: ?? [facility] ? Room: ? M412 Gender: ? M ?Money Manager: ?? MP : ?1975 ? Requested By: TRENTON VELA Order Number: [id number] ?Reading : ?? PRIYA MYERS MD ? Measurements Intervals ?Graham ? Rate: ? 84 ? P: ?23 UT: ? 122 ?QRS: ?91 QRSD: ? 89 ? T: ?77 QT: ? 408 ? QTc: ?449 ? Interpretive Statements SINUS RHYTHM BORDERLINE RIGHT AXIS DEVIATION Automated Interpretation. ??Physician Interpretation to follow. No previous ECG available for comparison Electronically Signed On 08-14-12 15:20:31 EDT by PRIYA MYERS MD Procedure Note Priya Myers MD - 08/14/2012 [facility] Test Date: 2012-08-08 Pat Name: GARRET DAUGHERTY Department: [place] [address] Room: [facility] Gender: M Money Manager: MELLY : 1975 Requested By: TRENTON VELA MD Order Number: [id number] Reading MD: PRIYA MYERS MD Measurements Intervals Graham Rate: 84 P: 23 UT: 122 QRS: 91 QRSD: 89 T: 77 QT: 408 QTc: 449 Interpretive Statements SINUS RHYTHM BORDERLINE RIGHT AXIS DEVIATION Automated Interpretation. Physician Interpretation to follow. No previous ECG available for comparison Electronically Signed On 08-14-12 15:20:31 EDT by PRIYA MYERS MD Trenton Vela MD CARDIAC ECG ORDERABL ES Performing Organization Address [facility] Phone Number [facility] [address] [place] [address] * TROPONIN I (08/08/2012 23:41 EDT) Pathologist [facility] Troponin I (ng/mL) <0.034 <0.034 ng/ml [facility] 08/08/2012 23:4 1 EDT 08/08/2012 23:46 EDT Trenton Vela MD CHEMISTRY & BLOOD GA S ORDERABLES Performing Organization Address [facility] Phone Number [facility] [address] [place] [address] * (ABNORMAL) CK MB WITH TOTAL CK (08/08/2012 23:41 EDT) Pathologist [facility] CK 1055(H) 0 - 250 U/L [facility] MB 3.89 <4.21 ng/ml [facility] 08/08/2012 23:4 1 EDT 08/08/2012 23:46 EDT Trenton Vela MD CHEMISTRY & BLOOD GA S ORDERABLES Performing Organization Address [facility] de Phone Number [facility] [address] [place] [address] * LACTIC ACID (08/08/2012 23:41 EDT) Pathologist [facility] Lactic Acid 1.4 0.7 - 2.1 mmol/L [facility] Blood specimen (specimen) 08/08/2012 23:41 EDT 08/08/2012 23:46 EDT Trenton Vela MD CHEMISTRY & BLOOD GA S ORDERABLES Performing Organization Address [facility] Co de Phone Number [facility] [address] [place] [address] * (ABNORMAL) DIFFERENTIAL (08/08/2012 23:40 EDT) Neutrophils 95.0(H) 45.5 - 79.7 % [facility] Lymphocytes 5.0(L) 15.0 - 46.8 % [facility] ABS Neutrophils 9.70(H) 2.20 - 8.85 K/cmm [facility] ABS Lymphs 0.51(L) 1.09 - 3.30 K/cmm [facility] RBC Morphology 1+ [facility] Comment: Anisocytosis 1+ Macrocytes WBC Morphology 1+ [facility] Comment:Smudge cells Type of Diff: Manual [facility] 08/08/2012 23:4 0 EDT 08/08/2012 23:46 EDT Trenton Vela MD HEMATOLOGY & PF4 ORD ERABLES Performing Organization Address [facility] Co de Phone Number [facility] [address] [place] [address] * (ABNORMAL) HEMAGRAM (08/08/2012 23:40 EDT) WBC 10.21 4.0 - 10.4 K/cmm [facility] RBC 4.40 4.36 - 5.78 M/cmm [facility] Hemoglobin 14.8 13.8 - 17.3 gm/dl [facility] HCT 43.1 39.5 - 50.2 % [facility] MCV 98(H) 81 - 95 fl [facility] MCH 33.5(H) 27.6 - 33.0 pg [facility] MCHC 34.3 32.8 - 36.4 gm/dl [facility] PLT 176 141 - 320 K/cmm [facility] RDW-CV 16.8(H) 11.8 - 14.1 % [facility] 08/08/2012 23:4 0 EDT 08/08/2012 23:46 EDT Trenton Vela MD HEMATOLOGY & PF4 ORD ERABLES Performing Organization Address [facility] de Phone Number [facility] [address] [place] [address] * PTT (08/08/2012 23:40 EDT) PTT 33 26 - 37 secs [facility] Comment:Therapeutic Heparin range: 65-100 seconds Blood specimen (specimen) 08/08/2012 23:40 EDT 08/08/2012 23:46 EDT Trenton Vela MD HEMATOLOGY & PF4 ORD ERABLES Performing Organization Address [facility] de Phone Number [facility] [address] [place] [address] * PROTIME (08/08/2012 23:40 EDT) Pro Time 11.1 9.5 - 13.1 secs [facility] I.N.R. 1.0 0.9 - 1.1 Ratio [facility] Comment: Moderate Intensity Coumadin INR = 2.0-3.0 Adjustments in anticoagulant therapy dose should be based upon the INR and NOT the Pro Time. Blood specimen (specimen) 08/08/2012 23:40 EDT 08/08/2012 23:46 EDT Trenton Vela MD HEMATOLOGY & PF4 ORD ERABLES Performing Organization Address [facility] [place] de Phone Number [facility] [address] [place] [address] * SALICYLATE (08/08/2012 23:40 EDT) Salicylate <1.0 mg/dl [facility] Comment: Negative = <2 mg/dl Therapeutic = <20 mg/dl Toxic = >30 mg/dl Blood specimen (specimen) 08/08/2012 23:40 EDT 08/08/2012 23:46 EDT Trenton Vela MD CHEMISTRY & BLOOD GA S ORDERABLES Performing Organization Address [facility] [place] de Phone Number [facility] [address] [place] [address] * ACETAMINOPHEN (08/08/2012 23:40 EDT) Acetaminophen <10.0 ug/ml [facility] Comment: Therapeutic range: ??10 - 30 ug/mL Possible toxicity: ??150 - 200 ug/mL Probable toxicity: ??>200 ug/mL Blood specimen (specimen) 08/08/2012 23:40 EDT 08/08/2012 23:46 EDT Trenton Vela MD CHEMISTRY & BLOOD GA S ORDERABLES Performing Organization Address [facility] de Phone Number [facility] [address] [place] [address] * PHOSPHORUS (08/08/2012 23:40 EDT) Phosphorus 3.0 2.5 - 4.5 mg/dl [facility] Blood specimen (specimen) 08/08/2012 23:40 EDT 08/08/2012 23:46 EDT Trenton Vela MD CHEMISTRY & BLOOD GA S ORDERABLES Performing Organization Address [facility] [place] de Phone Number [facility] [address] [place] [address] * MAGNESIUM (08/08/2012 23:40 EDT) Magnesium 2.0 1.7 - 2.8 mg/dl [facility] Blood specimen (specimen) 08/08/2012 23:40 EDT 08/08/2012 23:46 EDT Trenton Vela MD CHEMISTRY & BLOOD GA S ORDERABLES Performing Organization Address [facility] Co de Phone Number [facility] [address] [place] [address] * BILIRUBIN, TOTAL (08/08/2012 23:40 EDT) Bilirubin, Total <0.5 0.2 - 1.3 mg/dl [facility] Blood specimen (specimen) 08/08/2012 23:40 EDT 08/08/2012 23:46 EDT Trenton Vela MD CHEMISTRY & BLOOD GA S ORDERABLES Performing Organization Address [facility] [place] de Phone Number [facility] [address] [place] [address] * ALKALINE PHOSPHATASE (08/08/2012 23:40 EDT) Total Alkaline Phosphatase 69 38 - 126 U/L [facility] Blood specimen (specimen) 08/08/2012 23:40 EDT 08/08/2012 23:46 EDT Trenton Vela MD CHEMISTRY & BLOOD GA S ORDERABLES Performing Organization Address [facility] [place] de Phone Number [facility] [address] [place] [address] * ALT (08/08/2012 23:40 EDT) ALT 65 21 - 72 U/L [facility] Blood specimen (specimen) 08/08/2012 23:40 EDT 08/08/2012 23:46 EDT Trenton Vela MD CHEMISTRY & BLOOD GA S ORDERABLES Performing Organization Address [facility] Co de Phone Number [facility] [address] [place] [address] * (ABNORMAL) AST (08/08/2012 23:40 EDT) AST 69(H) 15 - 46 U/L [facility] Blood specimen (specimen) 08/08/2012 23:40 EDT 08/08/2012 23:46 EDT Trenton Vela MD CHEMISTRY & BLOOD GA S ORDERABLES Performing Organization Address [facility] Co de Phone Number [facility] [address] [place] [address] * (ABNORMAL) CREATININE (08/08/2012 23:40 EDT) Creatinine 0.51(L) 0.66 - 1.25 mg/dl [facility] GFR, Calculated >60 >60 ml/min/1.7 3m2 [facility] Blood specimen (specimen) 08/08/2012 23:40 EDT 08/08/2012 23:46 EDT Trenton Vela MD CHEMISTRY & BLOOD GA S ORDERABLES Performing Organization Address [facility] [place] de Phone Number [facility] [address] [place] [address] * BUN (08/08/2012 23:40 EDT) BUN 11 10 - 26 mg/dl [facility] Blood specimen (specimen) 08/08/2012 23:40 EDT 08/08/2012 23:46 EDT Trenton Vela MD CHEMISTRY & BLOOD GA S ORDERABLES Performing Organization Address [facility] [place] de Phone Number [facility] [address] [place] [address] * ELECTROLYTES (08/08/2012 23:40 EDT) Sodium 142 136 - 145 mEq/L [facility] Potassium 4.6 3.5 - 5.0 mEq/L [facility] Chloride 106 96 - 110 mEq/L [facility] CO2 27 24 - 32 mEq/L [facility] Blood specimen (specimen) 08/08/2012 23:40 EDT 08/08/2012 23:46 EDT Trenton Vela MD CHEMISTRY & BLOOD GA S ORDERABLES Performing Organization Address City/[facility]/ZIP Co de Phone Number [facility] [address] [place] [address] * (ABNORMAL) SCREENING GLUCOSE (08/08/2012 23:40 EDT) Glucose, Screening 124(H) 70 - 100 mg/dl [facility] Blood specimen (specimen) 08/08/2012 23:40 EDT 08/08/2012 23:46 EDT Trenton Vela MD CHEMISTRY & BLOOD GA S ORDERABLES Performing Organization Address [facility] Co de Phone Number [facility] [address] [place] [address] * URINE MICROSCOPIC (08/08/2012 23:39 EDT) WBC, UA None seen 0 - 5 /HPF [facility] RBC, UA 10 to 50 0 - 5 /HPF [facility] Squam Epithel, UA None seen None seen /HPF [facility] Renal Epithel, UA None seen None seen /HPF [facility] Bacteria, UA None seen None seen /HPF [facility] Crystals, UA None seen /HPF [facility] Hyaline Casts, UA None seen /LPF [facility] UA Comment Microscopic results [facility] Comment: are unreliable on urines unrefrig >2hrs or refrig >8hrs. 08/08/2012 23:3 9 EDT 08/08/2012 23:46 EDT Trenton Vela MD URINALYSIS ORDERABLE S Performing Organization Address [facility] Co de Phone Number [facility] [address] [place] [address] * (ABNORMAL) URINALYSIS (08/08/2012 23:39 EDT) Color, UA Yellow [facility] Clarity, UA Clear [facility] Glucose, UA Neg Neg [facility] Bilirubin, UA Neg Neg [facility] Ketones, UA 2+(A) Neg [facility] Specific [place], Urine >1.030 1.001 - 1.035 [facility] Blood, UA 3+(A) Neg [facility] pH, UA 5.0 4.6 - 8.0 [facility] Protein, UA Neg Neg [facility] Urobilinogen, UA 0.2 0.2 - 1.0 E.U./dl [facility] Nitrite, UA Neg Neg [facility] Leuk Esterase Neg Neg [facility] Refractometer SG,Urine 1.027 1.001 - 1.035 [facility] Urine specimen (specimen) URINE / Unknown 08/08/2012 23:39 EDT 08/08/2012 23:46 EDT Trenton Vela MD URINALYSIS ORDERABLE S Performing Organization Address [facility] Co de Phone Number [facility] [address] [place] [address] * MRSA MOLECULAR DETECTION (08/08/2012 23:34 EDT) Specimen Description Nasal [facility] Result Methicillin susceptible Staphylococcus aureus (MSSA) DNA detected by PCR. [facility] Specimen of unknown material (specimen) TOPOGRAPHY UNKNOWN / Unknown 08/08/2012 23:34 EDT 08/09/2012 7:34 EDT Arnulfo Poe MD MICROBIOLOGY - GENER AL ORDERABLES Performing Organization Address [facility] Co de Phone Number [facility] [address] [place] [address] * (ABNORMAL) BLOOD GAS, G3 ISTAT (08/08/2012 23:28 EDT) pH, i-STAT 7.32(L) 7.35 - 7.45 [facility] pCO2, i-STAT 53(H) 35 - 45 mmHg [facility] pO2, i-STAT 102 80 - 105 mmHg [facility] TCO2, i-STAT 29 mEq/L [facility] O2 Saturation 97 % [facility] Base Excess, i-STAT 0 [facility] FIO2 .70 [facility] Sample Type ARTERIAL [facility] 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 08/08/2012 23:2 8 EDT 08/08/2012 23:42 EDT Kan Ornelas Clouser DO CHEMISTRY & BLOOD GA S ORDERABLES Performing Organization Address [facility] de Phone Number [facility] [address] [place] [address] * (ABNORMAL) BLOOD GAS, CG4 ISTAT (08/08/2012 22:00 EDT) pH, i-STAT 7.25(L) 7.35 - 7.45 [facility] pCO2, i-STAT 67(H) 35 - 45 mmHg [facility] pO2, i-STAT 89 80 - 105 mmHg [facility] TCO2, i-STAT 31 mEq/L [facility] O2 Saturation 95 % [facility] Lactate, i-STAT 1.3 0.7 - 2.1 mmol/L [facility] Base Excess, i-STAT 2 [facility] FIO2 80 [facility] Sample Type ARTERIAL [facility] 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 For non-arterial reference ranges, please see ISTAT procedure. 08/08/2012 22:0 0 EDT 08/08/2012 23:23 EDT Kan Clark DO CHEMISTRY & BLOOD GA S ORDERABLES Performing Organization Address [facility] [place] de Phone Number [facility] [address] [place] [address] * (ABNORMAL) BLOOD GAS, CG4 ISTAT (08/08/2012 21:48 EDT) pH, i-STAT 7.25(L) 7.35 - 7.45 [facility] pCO2, i-STAT 57(H) 35 - 45 mmHg [facility] pO2, i-STAT 68(L) 80 - 105 mmHg [facility] TCO2, i-STAT 26 mEq/L [facility] O2 Saturation 89 % [facility] Lactate, i-STAT 1.3 0.7 - 2.1 mmol/L [facility] Base Deficit, i-STAT 3 [facility] Sample Type NOT GIVEN [facility] veterinary technology instructor ID [id number] [facility] Comment: Test performed by FACT. For non-arterial reference ranges, please see ISTAT procedure. 08/08/2012 21:4 8 EDT 08/08/2012 23:23 EDT Kan Clark DO CHEMISTRY & BLOOD GA S ORDERABLES Performing Organization Address City/State/[facility] Co de Phone Number [facility] [address] [place] [address] documented in this encounter Visit Diagnoses Diagnosis Overdose- Primary Poisoning by unspecified drug or medicinal substance Overdose Poisoning by unspecified drug or medicinal substance Respiratory failure ([facility]) Acute respiratory failure Poisoning by methamphetamines ([facility]) Poisoning by amphetamines Asthma exacerbation Unspecified asthma, with exacerbation Pneumothorax, iatrogenic Iatrogenic pneumothorax Acute respiratory failure ([facility]) Acute respiratory failure Seizure ([facility] Other convulsions Respiratory failure ([facility]) Acute respiratory failure documented in this encounter Administered Medications Inactive Administered Medications - up to 3 most recent administrations Medication Order MAR Action Action Date Dose Rate Site acetaminophen (TYLENOL) tablet 650 mg 650 mg, oral, EVERY 6 HOURS PRN, Starting on Mon08/10/12 at 1017, Until Mon08/14/12 at 0846, Pain, Routine Given 08/13/2012 20:15 EDT 650 mg Given 08/13/2012 1:17 EDT 650 mg Given 08/12/2012 19:18 EDT 650 mg acetaminophen (TYLENOL) tablet 650 mg 650 mg, oral, EVERY 6 HOURS, First dose (after last modification) on Mon08/14/12 at 1200, Until Discontinued, Routine Given 08/15/2012 11:23 EDT 650 mg Given 08/15/2012 5:06 EDT 650 mg Given 08/14/2012 23:03 EDT 650 mg albuterol (PROVENTIL) 2.5 mg /3 mL (0.083 %) nebulizer solution 2.5 mg 2.5 mg, nebulization, EVERY 6 HOURS, First dose on [facility] 08/09/12 at 0015, Until Discontinued, Routine Given 08/09/2012 5:04 EDT 2.5 mg Given 08/09/2012 0:41 EDT 2.5 mg albuterol (PROVENTIL) 2.5 mg /3 mL (0.083 %) nebulizer solution 2.5 mg 2.5 mg, nebulization, EVERY 2 HOURS PRN, Starting on [facility] 08/09/12 at 0815, Until Mon08/12/12 at 1538, Wheezing, Routine Given 08/11/2012 12:57 EDT 2.5 mg Given 08/10/2012 3:58 EDT 2.5 mg Given 08/09/2012 23:42 EDT 2.5 mg albuterol (VENTOLIN HFA) inhaler 2 Puff 2 Puff, inhalation, EVERY 6 HOURS PRN, Starting on Mon08/12/12 at 1538, Until [place] 08/12/12 at 1624, Wheezing, Routine Given 08/12/2012 15:50 EDT 2 Puffs albuterol (VENTOLIN HFA) inhaler 2 Puff 2 Puff, inhalation, EVERY 4 HOURS PRN, Starting on Mon08/12/12 at 1630, Until Mon08/15/12 at 1905, Wheezing, Routine Given 08/15/2012 10:21 EDT 2 Puffs Given 08/15/2012 5:07 EDT 2 Puffs Given 08/14/2012 21:40 EDT 2 Puffs citalopram (CELEXA) tablet 20 mg 20 mg, oral, DAILY, First dose on Mon08/10/12 at 1600, Until Discontinued, Routine Given 08/15/2012 8:27 EDT 20 mg Given 08/14/2012 8:56 EDT 20 mg Given 08/13/2012 8:50 EDT 20 mg clonAZEPAM (KLONOPIN) tablet 2 mg 2 mg, oral, DAILY, First dose on Mon08/10/12 at 1430, Until Discontinued, Routine Given 08/15/2012 8:27 EDT 2 mg Given 08/14/2012 9:04 EDT Given 08/13/2012 8:50 EDT 2 mg dexmedetomidine (PRECEDEX) 400 mcg in sodium chloride (NS) 0.9 % 100 mL infusion 0.2-1.4 mcg/kg/hr ? 78.9 kg (rounded to 3.9-27.6 mL/hr), intravenous, CONTINUOUS, Starting on Mon08/09/12 at 1000, Until Mon08/10/12 at 0821, STAT Rate Documented 08/09/2012 14:00 EDT 0.401 mcg/kg/hr 7.9 mL/hr Rate Documented 08/09/2012 13:18 EDT 0.4 mcg/kg/hr 7.9 mL/ hr Rate Documented 08/09/2012 13:00 EDT 0.801 mcg/kg/hr 15.8 mL/hr DIAZepam (VALIUM) tablet 10-20 mg 10-20 mg, oral, EVERY 1 HOUR PRN, Starting on Mon08/10/12 at 1550, Until Mon08/15/12 at 1905, Withdrawal, Routine Given 08/11/2012 17:28 EDT 20 mg docusate sodium (COLACE) capsule 100 mg 100 mg, oral, DAILY, First dose on Mon08/13/12 at 1500, Until Discontinued, Routine Given 08/15/2012 8:28 EDT 100 mg Given 08/14/2012 8:56 EDT 100 mg Given 08/13/2012 15:44 EDT 100 mg famotidine (PEPCID) 20 mg/2 mL injection 20 mg 20 mg, intravenous, 2 TIMES DAILY, First dose on Mon08/08/12 at 2345, Until Discontinued, Routine Given 08/09/2012 8:38 EDT 20 mg Given 08/09/2012 0:06 EDT 20 mg famotidine (PEPCID) tablet 20 mg 20 mg, oral, 2 TIMES DAILY, First dose on Mon08/08/12 at 2345, Until Discontinued, Routine Given 08/09/2012 20:56 EDT 2 0 mg fentaNYL citrate (PF) 50 mcg/mL injection 100 mcg 100 mcg, intravenous, NOW X1, 1 dose, On Mon08/12/12 at 0700, STAT Given 08/12/2012 6:47 EDT 100 mcg fentaNYL citrate (PF) 50 mcg/mL injection 100 mcg 100 mcg, intravenous, EVERY 5 MIN PRN, 3 doses, Starting on Mon08/12/12 at 1600, Until Mon08/12/12 at 0835, Pain, for CT placement, given by CAT RN, Today Given 08/12/2012 8:35 EDT 100 mcg Given 08/12/2012 8:24 EDT 100 mcg Given 08/12/2012 8:16 EDT 100 mcg fentaNYL citrate (PF) 50 mcg/mL injection 300 mcg 300 mcg, intravenous, Once (Without Time Specified), 1 dose, Starting on Mon08/09/12 at 0316, Until Mon08/09/12 at 0315, Routine Given 08/09/2012 3:15 EDT 100 mc g Given 08/09/2012 2:50 EDT 100 mcg Given 08/09/2012 2:35 EDT 100 mcg fentaNYL citrate (PF) 50 mcg/mL injection 75 mcg 75 mcg, intravenous, NOW X1, 1 dose, On Mon08/12/12 at 0600, Routine Given 08/12/2012 6:20 EDT 75 mcg fentaNYL citrate (PF) 50 mcg/mL injection 1 dose, Starting on Mon08/09/12 at 0215, Until Mon08/09/12 at 0235 folic acid (FOLVITE) tablet 1 mg 1 mg, oral, DAILY, First dose on Mon08/10/12 at 0900, Until Discontinued, Routine Given 08/15/2012 8:27 EDT 1 mg Given 08/14/2012 8:56 EDT 1 mg Given 08/13/2012 8:50 EDT 1 mg folic acid 1 mg in sodium chloride (NS) 0.9 % 50 mL IVPB 1 mg, intravenous, Administer over 30 Minutes, DAILY, First dose on Mon08/09/12 at 0900, Until Discontinued, Routine Given 08/09/2012 8:39 EDT 1 mg furosemide (LASIX) tablet 20 mg 20 mg, oral, NOW X1, 1 dose, On Mon08/10/12 at 0845, Routine Given 08/10/2012 9:05 EDT 20 mg heparin injection 5,000 Units 5,000 Units, subcutaneous, EVERY 8 HOURS, First dose on Mon08/09/12 at 0000, Until Discontinued, Routine Given 08/15/2012 8:27 EDT 5,000 Units Given 08/14/2012 23:03 EDT 5,000 Units Given 08/14/2012 17:25 EDT 5,000 Units hydrALAzine (APRESOLINE) injection 10 mg 10 mg, intravenous, NOW X1, 1 dose, On Mon08/09/12 at 1245, Routine Given 08/09/2012 12:46 EDT 10 mg HYDROmorphone (PF) (DILAUDID) 1 mg/mL injection 0.5 mg 0.5 mg, intravenous, NOW X1, 1 dose, On Mon08/12/12 at 0715, Routine Given 08/12/2012 6:59 EDT 0.5 mg HYDROmorphone (PF) (DILAUDID) 1 mg/mL injection 1 mg 1 mg, intravenous, EVERY 3 HOURS PRN, Starting on Mon08/12/12 at 0746, Until Mon08/14/12 at 0846, Pain Given 08/14/2012 7:36 EDT 1 mg Given 08/14/2012 4:15 EDT 1 mg Given 08/14/2012 0:43 EDT 1 mg HYDROmorphone (PF) (DILAUDID) 1 mg/mL injection 2 mg 2 mg, intravenous, EVERY 2 HOURS PRN, Starting on Mon08/14/12 at 0900, Until Mon08/15/12 at 1905, Pain Given 08/15/2012 14:46 EDT 2 mg Given 08/15/2012 11:22 EDT 2 mg Given 08/15/2012 8:28 EDT 2 mg HYDROmorphone (PF) (DILAUDID) 1 mg/mL injection 1 dose, Starting on Mon08/12/12 at 0655, Until Mon08/14/12 at 0043 ibuprofen (MOTRIN) tablet 800 mg 800 mg, oral, EVERY 8 HOURS PRN, Starting on Mon08/10/12 at 1945, Until Mon08/14/12 at 0846, Pain, Routine Given 08/13/2012 20:15 EDT 800 mg Given 08/13/2012 1:17 EDT 800 mg Given 08/12/2012 19:18 EDT 800 mg ibuprofen (MOTRIN) tablet 800 mg 800 mg, oral, EVERY 8 HOURS, First dose (after last modification) on Mon08/14/12 at 0915, Until Discontinued, Routine Given 08/15/2012 8:27 EDT 800 mg Given 08/15/2012 1:38 EDT 800 mg Given 08/14/2012 17:26 EDT 800 mg ipratropium-albuterol (DUONEB) 0.5 mg-3 mg(2.5 mg base)/3 mL nebulizer solution 3 mL 3 mL, nebulization, EVERY 6 HOURS, First dose (after last modification) on [facility] 08/09/12 at 0830, Until Discontinued, Routine Given 08/09/2012 13:09 EDT 3 mL Given 08/09/2012 8:14 EDT 3 mL ipratropium-albuterol (DUONEB) 0.5 mg-3 mg(2.5 mg base)/3 mL nebulizer solution 3 mL 3 mL, nebulization, 4 TIMES DAILY, First dose (after last modification) on [facility] 08/09/12 at 2100, Until Discontinued, Routine Given 08/10/2012 16:30 EDT 3 mL Given 08/10/2012 9:55 EDT 3 mL Given 08/09/2012 21:04 EDT 3 mL ipratropium-albuterol (DUONEB) 0.5 mg-3 mg(2.5 mg base)/3 mL nebulizer solution 3 mL 3 mL, nebulization, EVERY 4 HOURS PRN, Starting on Mon08/10/12 at 1645, Until Mon08/12/12 at 1538, Wheezing, Routine Given 08/12/2012 12:10 EDT 3 mL Given 08/12/2012 4:36 EDT 3 mL Given 08/11/2012 6:38 EDT 3 mL ipratropium-albuterol (DUONEB) 0.5 mg-3 mg(2.5 mg base)/3 mL nebulizer solution 1 dose, Starting on [facility] 08/09/12 at 0813, Until [facility] 08/09/12 at 0814 lisinopril (PRINIVIL, ZESTRIL) tablet 20 mg 20 mg, oral, DAILY, First dose on [facility] 08/09/12 at 1700, Until Discontinued, Routine Given 08/11/2012 8:15 EDT 20 mg Given 08/10/2012 9:05 EDT 20 mg Given 08/09/2012 16:10 EDT 20 mg lisinopril (PRINIVIL, ZESTRIL) tablet 20 mg 20 mg, oral, NOW X1, 1 dose, On 08/11/12 at 1130, Routine Given 08/11/2012 11:29 EDT 20 mg lisinopril (PRINIVIL, ZESTRIL) tablet 40 mg 40 mg, oral, DAILY, First dose (after last modification) on Mon08/12/12 at 0900, Until Discontinued, Routine Given 08/15/2012 9:08 EDT 40 mg Given 08/14/2012 8:56 EDT 40 mg Given 08/13/2012 8:49 EDT 40 mg LORazepam (ATIVAN) injection 1-2 mg 1-2 mg, intravenous, EVERY 15 MINUTES PRN, Starting on Mon08/08/12 at 2333, Until Mon08/10/12 at 0822, Seizures, Withdrawal, Routine Given 08/10/2012 5:15 EDT 2 mg Given 08/10/2012 0:12 EDT 1 mg Given 08/09/2012 20:56 EDT 1 mg LORazepam (ATIVAN) injection 2 mg 2 mg, intravenous, NOW X1, 1 dose, On Mon08/09/12 at 1845, Routine Given 08/09/2012 18:38 EDT 2 mg methadone (DOLOPHINE) concentrated solution 90 mg 90 mg, oral, DAILY, First dose (after last reorder) on Mon08/10/12 at 0915, Until Discontinued, Routine Given 08/15/2012 8:29 EDT 90 mg Given 08/14/2012 8:56 EDT 90 mg Given 08/13/2012 8:50 EDT 90 mg methadone (DOLOPHINE) tablet 5 mg 5 mg, oral, EVERY 12 HOURS, First dose (after last modification) on Mon08/09/12 at 2100, Until Discontinued, Routine Given 08/09/2012 21:05 EDT 5 mg morphine (PF) 2 mg/mL injection 2-4 mg 2-4 mg, intravenous, EVERY 2 HOURS PRN, Starting on Mon08/09/12 at 2244, Until Mon08/10/12 at 0822, Pain, Routine Given 08/10/2012 4:19 EDT 2 mg Given 08/10/2012 1:29 EDT 2 mg Given 08/09/2012 22:57 EDT 2 mg nicotine (NICODERM CQ) 21 mg/24 hr patch 1 Patch 1 Patch, transdermal, DAILY, First dose on Mon08/09/12 at 1815, Until Discontinued, Routine Patch Applied 08/15/2012 8:26 EDT 1 Patch mL/hr Right Arm Patch Applied 08/14/2012 8:56 EDT 1 Patch mL/hr Ri ght Arm Patch Applied 08/13/2012 8:49 EDT 1 Patch mL/hr Ri ght Arm nicotine (NICOTROL) 10 mg inhaler 1 Inhaler 1 Inhaler, inhalation, EVERY 2 HOURS PRN, Starting on Mon08/10/12 at 2036, Until Mon08/15/12 at 1905, Smoking Cessation, Routine Given 08/15/2012 14:46 EDT 1 Inhaler Given 08/14/2012 21:40 EDT 1 Inhaler Given 08/14/2012 0:52 EDT 1 Inhaler PEG 3350-Electrolytes (MIRALAX) packet 17 g 17 g, oral, DAILY, First dose on Mon08/11/12 at 1515, Until Discontinued, Routine Given 08/15/2012 8:26 EDT 17 g Given 08/14/2012 10:09 EDT 17 g Given 08/13/2012 8:49 EDT 17 g potassium PHOSphate 15 mmol in sodium chloride (NS) 0.9 % 150 mL 15 mmol, intravenous, Administer over 4 Hours, EVERY 4 HOURS, 3 doses, First dose on Mon08/10/12 at 1100, Last dose on Mon08/10/12 at 1900, Routine Given 08/10/2012 20:01 EDT 15 mmol Given 08/10/2012 15:23 EDT 15 mmol Given 08/10/2012 11:10 EDT 15 mmol pregabalin (LYRICA) capsule 100 mg 100 mg, oral, 3 TIMES DAILY, First dose on Mon08/10/12 at 1600, Until Discontinued, Routine Given 08/15/2012 14:46 EDT 1 00 mg Given 08/15/2012 8:26 EDT 100 mg Given 08/14/2012 20:05 EDT 100 mg propofol (DIPRIVAN) 10 mg/mL injection 1 dose, Starting on Mon08/08/12 at 2309, Until Mon08/08/12 at 2343 propofol (DIPRIVAN) 1000 mg in 100 mL infusion 5-83 mcg/kg/min ? 78.9 kg (rounded to 2.4-39.3 mL/hr), intravenous, CONTINUOUS, Starting on [facility] 08/09/12 at 0000, Until [place] 08/09/12 at 1540, Routine Rate Documented 08/09/2012 10:12 EDT 60 mcg/kg/min 28.4 mL/hr Rate Change 08/09/2012 10:02 EDT 70 mcg/kg/min 33.1 mL/hr Rate Documented 08/09/2012 10:00 EDT 83.016 mcg/kg/min 39. 3 mL/hr senna (SENOKOT) tablet 1 Tab 1 Tablet, oral, AT BEDTIME, First dose on 08/13/12 at 2100, Until Discontinued, Routine Given 08/14/2012 20:0 5 EDT 1 Tablet Given 08/13/2012 20:16 EDT 1 Tablet Given 08/13/2012 15:44 EDT 1 Tablet sodium chloride 0.9 % (NS) infusion at 100 mL/hr, 1,000 mL, intravenous, CONTINUOUS, Starting on [place] 08/09/12 at 0015, Until Mon08/09/12 at 1001, Routine Rate Documented 08/09/2012 10:00 EDT 1,000 mL 100 mL/hr New Bag 08/09/2012 9:44 EDT 1,000 mL 100 mL/hr Rate Documented 08/09/2012 9:00 EDT 1,000 mL 100 mL/hr thiamine (VITAMIN B-1) 100 mg in sodium chloride (NS) 0.9 % 50 mL IVPB 100 mg, intravenous, Administer over 15 Minutes, DAILY, First dose on Mon08/09/12 at 0900, Until Discontinued, Routine Given 08/09/2012 8:39 EDT 100 mg thiamine (VITAMIN B1) tablet 100 mg 100 mg, oral, DAILY, First dose on Mon08/10/12 at 0900, Until Discontinued, Routine Given 08/15/2012 8:27 EDT 100 mg Given 08/14/2012 8:56 EDT 100 mg Given 08/13/2012 8:49 EDT 100 mg documented in this encounter Discontinued Medications Medication Sig Discontinue Reason Start Date End Da te oxyCODONE-acetaminophen (PERCOCET) 5-325 mg per tablet Take 1 Tab by mouth every 4 hours as needed for Pain. 08/01/2012 08/15/2012 amitriptyline (ELAVIL) 50 mg tablet Take 50 mg by mouth daily. 08/15/2012 meloxicam (MOBIC) 15 mg tablet Take 15 mg by mouth daily. 08/15/2012 oxyCODONE-acetaminophen (PERCOCET) 5-325 mg per tablet Take 1 Tab by mouth every 4 hours as needed for Pain. 08/15/2012 08/15/2012 buprenorphine-naloxone (SUBOXONE) 8-[address] 8 mg under the tongue 2 times daily. 08/15/2012 sertraline (ZOLOFT) 100 mg tablet Take 150 mg by mouth daily. Error 08/15/2012 documented as of this encounter Active and Recently Administered Medications Times are shown in EDT. Scheduled Medication Order 08/13/2012 08/14/2012 08/15/2012 acetaminophen (TYLENOL) tablet 650 mg (CANCELED) 650 mg, oral, EVERY 6 HOURS, First dose (after last modification) on Mon08/14/12 at 1200, Until Discontinued, Routine 1114 (Given - Provider: Jacqueline Elias RN)1726 (Given - Provider: Lianne Maki RN)2303 (Given - Provider: Bev Lopez, CHRISTINE) 0506 (Given - Provider: Bev Lopez, CHRISTINE)1123 (Given - Provider: Jane Rayo, CHRISTINE) citalopram (CELEXA) tablet 20 mg 20 mg, oral, DAILY, First dose on Mon08/10/12 at 1600, Until Discontinued, Routine 0850 (Given - Provider: Lianne Maki RN) 0856 (Given - Provider: Jacqueline Elias, CHRISTINE) 0827 (Given - Provider: Jane Rayo, RN) clonAZEPAM (KLONOPIN) tablet 2 mg (CANCELED) 2 mg, oral, DAILY, First dose on Mon08/10/12 at 1430, Until Discontinued, Routine 0850 (Given - Provider: Lianne Maki RN) 0904 (Given - Provider: Jacqueline Elias, CHRISTINE) 0827 (Given - Provider: Jane Rayo, RN) docusate sodium (COLACE) capsule 100 mg (CANCELED) 100 mg, oral, DAILY, First dose on Mon08/13/12 at 1500, Until Discontinued, Routine 1544 (Given - Provider: Jane Rayo, RN) 0856 (Given - Provider: Jacqueline Elias RN) 0828 (Given - Provider: Jane Rayo, RN) folic acid (FOLVITE) tablet 1 mg (CANCELED) 1 mg, oral, DAILY, First dose on Mon08/10/12 at 0900, Until Discontinued, Routine 0850 (Given - Provider: Lianne Maki, CHRISTINE) 0856 (Given - Provider: Jacqueline Elias RN) 0827 (Given - Provider: Jane Rayo RN) heparin injection 5,000 Units (CANCELED) 5,000 Units, subcutaneous, EVERY 8 HOURS, First dose on Mon08/09/12 at 0000, Until Discontinued, Routine 0116 (Given - Provider: Magaly Burch RN)0850 (Given - Provider: Lianne Maki RN)1544 (Given - Provider: Jane Rayo RN)2330 (Given - Provider: Treasure Bravo RN) 0736 (Given - Provider: Jacqueline Elias RN)1725 (Given - Provider: Lianne Maki RN)2303 (Given - Provider: Bev Lopez, CHRISTINE) 0827 (Given - Provider: Jane Rayo, CHRISTINE)1600 (Due) ibuprofen (MOTRIN) tablet 800 mg 800 mg, oral, EVERY 8 HOURS, First dose (after last modification) on Mon08/14/12 at 0915, Until Discontinued, Routine 1023 (Given - Provider: Jacqueline Elias RN)1726 (Given - Provider: Lianne Maki RN) 0138 (Given - Provider: Bev Lopez RN)0827 (Given - Provider: Jane Rayo RN)1600 (Due - Provider: Brittney Good [facility]) lisinopril (PRINIVIL, ZESTRIL) tablet 40 mg (CANCELED) 40 mg, oral, DAILY, First dose (after last modification) on Mon08/12/12 at 0900, Until Discontinued, Routine 0849 (Given - Provider: Lianne Maki, CHRISTINE) 0856 (Given - Provider: Jacqueline Elias RN) 0908 (Given - Provider: Jane Rayo RN) methadone (DOLOPHINE) concentrated solution 90 mg (CANCELED) 90 mg, oral, DAILY, First dose (after last reorder) on Mon08/10/12 at 0915, Until Discontinued, Routine 0850 (Given - Provider: Lianne Maki RN) 0856 (Given - Provider: Jacqueline Elias RN) 0829 (Given - Provider: Jane Rayo, RN) nicotine (NICODERM CQ) 21 mg/24 hr patch 1 Patch (CANCELED) 1 Patch, transdermal, DAILY, First dose on Arlene 08/09/12 at 1815, Until Discontinued, Routine 0849 (Patch Applied - Provider: Lianne Maki RN)2015 (Patch Removed - Provider: Monica Gabriel RN) 0856 (Patch Applied - Provider: Jacqueline Elias RN)2215 (Patch Removed - Provider: Bev Lopez, CHRISTINE) 0826 (Patch Applied - Provider: Jane Rayo, CHRISTINE)2100 (Due: Patch Removed - Provider: Jane Rayo RN) PEG 3350-Electrolytes (MIRALAX) packet 17 g (CANCELED) 17 g, oral, DAILY, First dose on Mon08/11/12 at 1515, Until Discontinued, Routine 0849 (Given - Provider: Lianne Maki RN) 1009 (Given - Provider: Jacqueline Elias RN) 0826 (Given - Provider: Jane Rayo, CHRISTINE) pregabalin (LYRICA) capsule 100 mg 100 mg, oral, 3 TIMES DAILY, First dose on Mon08/10/12 at 1600, Until Discontinued, Routine 0910 (Given - Provider: Lianne Maki RN)1423 (Given - Provider: Lianne Maki RN)2015 (Given - Provider: Monica Gabriel RN) 0856 (Given - Provider: Jacqueline Elias RN)1457 (Given - Provider: Jacqueline Elias RN)2004 (Given - Provider: Bev Lopez, CHRISTINE) 0826 (Given - Provider: Jane Rayo, CHRISTINE)1446 (Given - Provider: Jane Rayo, RN) senna (SENOKOT) tablet 1 Tab (CANCELED) 1 Tablet, oral, AT BEDTIME, First dose on Mon08/13/12 at 2100, Until Discontinued, Routine 1544 (Given - Provider: Jane Rayo, RN)2015 (Given - Provider: Monica Gabriel RN - Comment: given by day shift RN) 2004 (Given - Provider: Bev Lopez RN) thiamine (VITAMIN B1) tablet 100 mg (CANCELED) 100 mg, oral, DAILY, First dose on Mon08/10/12 at 0900, Until Discontinued, Routine 0849 (Given - Provider: Lianne Maki RN) 0856 (Given - Provider: Jacqueline Elias, RN) 0827 (Given - Provider: Jane Rayo, RN) PRN Medication Order 08/13/2012 08/14/2012 08/15/2012 acetaminophen (TYLENOL) tablet 650 mg (CANCELED) 650 mg, oral, EVERY 6 HOURS PRN, Starting on Mon08/10/12 at 1017, Until Mon08/14/12 at 0846, Pain, Routine 0117 (Given - Provider: Magaly Burch, RN)2014 (Given - Provider: Monica Gabriel, CHRISTINE) albuterol (VENTOLIN HFA) inhaler 2 Puff (CANCELED) 2 Puff, inhalation, EVERY 4 HOURS PRN, Starting on Mon08/12/12 at 1630, Until Mon08/15/12 at 1905, Wheezing, Routine 0127 (Given - Provider: Magaly Burch RN)0850 (Given - Provider: Lianne Maki RN)1424 (Given - Provider: Lianne Maki, CHRISTINE)2028 (Given - Provider: Monica Gabriel, CHRISTINE) 0052 (Given - Provider: Treasure Bravo, CHRISTINE)0527 (Given - Provider: Treasure Bravo, RN)1114 (Given - Provider: Jacqueline Elias, CHRISTINE)1725 (Given - Provider: Lianne Maki RN)2140 (Given - Provider: Bev Lopez, CHRISTINE) 0507 (Given - Provider: Bev Lopez, CHRISTINE)1021 (Given - Provider: Jane Rayo, RN) HYDROmorphone (PF) (DILAUDID) 1 mg/mL injection 1 mg (CANCELED) 1 mg, intravenous, EVERY 3 HOURS PRN, Starting on Mon08/12/12 at 0746, Until Mon08/14/12 at 0846, Pain 0117 (Given - Provider: Magaly Burch, CHRISTINE)0810 (Given - Provider: Lianne Maki RN)1110 (Given - Provider: Jane Rayo RN)1545 (Given - Provider: Jane Rayo RN)1843 (Given - Provider: Jane Rayo RN)2210 (Given - Provider: Monica Gabriel, CHRISTINE) 0043 (Given - Provider: Treasure Bravo RN)0415 (Given - Provider: Treasure Bravo, RN)0736 (Given - Provider: Jacqueline Elias, RN) HYDROmorphone (PF) (DILAUDID) 1 mg/mL injection 2 mg (CANCELED) 2 mg, intravenous, EVERY 2 HOURS PRN, Starting on Mon08/14/12 at 0900, Until Mon08/15/12 at 1905, Pain 1008 (Given - Provider: Jacqueline Elias RN)1238 (Given - Provider: Jacqueline Elias RN)1451 (Given - Provider: Jacqueline Elias RN)1726 (Given - Provider: Lianne Maki RN)2004 (Given - Provider: Bev Lopez RN)2303 (Given - Provider: Bev Lopez RN) 0138 (Given - Provider: Bev Lopez RN)0506 (Given - Provider: Bev Lopez, CHRISTINE)0828 (Given - Provider: Jane Rayo RN)1122 (Given - Provider: Jane Rayo RN)1446 (Given - Provider: Jane Rayo RN) ibuprofen (MOTRIN) tablet 800 mg (CANCELED) 800 mg, oral, EVERY 8 HOURS PRN, Starting on Mon08/10/12 at 1945, Until Mon08/14/12 at 0846, Pain, Routine 0117 (Given - Provider: Magaly Burch, CHRISTINE)2014 (Given - Provider: Monica Gabriel, CHRISTINE) nicotine (NICOTROL) 10 mg inhaler 1 Inhaler (CANCELED) 1 Inhaler, inhalation, EVERY 2 HOURS PRN, Starting on Mon08/10/12 at 2036, Until Mon08/15/12 at 1905, Smoking Cessation, Routine 0052 (Given - Provider: Treasure Bravo, CHRISTINE)2140 (Given - Provider: Bev Lopez RN) 1446 (Given - Provider: Jane Brassard, RN) documented in this encounter Orders Medications Ordered That Ganesh ht Not Have Been Administered Count Last Ordered Date First Ordered Date fentaNYL citrate (PF) 50 mcg/mL injection 1 08/12/2012 sodium chloride 0.9 % (NS) infusion 1 08/12 LORazepam (ATIVAN) injection 1-2 mg 2 08/10 methadone (DOLOPHINE) tablet 45 mg 1 2012 methadone (DOLOPHINE) tablet 90 mg 3 2012 nicotine inhaler (delivery device) 1 2012 methadone (DOLOPHINE) tablet 20 mg 1 2012 sodium chloride 0.9 % flush 10 mL 2 013 sodium chloride 0.9 % flush 20 mL 1 013 ipratropium-albuterol (DUONE B) 0.5 mg-3 mg(2.5 mg base)/3 mL nebulizer solution 3 mL 1 08/08/2012 Lab Orders Without Results Count Last Ordered D ate First Ordered Date POCT BLOOD GAS, G3 I-STAT (BASIC ABG VBG) 1 08/08/2012 Nursing Count Last Ordered Date First Orde red Date NURSING COMMUNICATION 2 08/09/2012 ELEVATE HEAD OF BED 1 08/08/2012 HEIGHT AND WEIGHT 1 08/08/2012 Respiratory Care Count Last Ordered Date First Ordered Date NEBULIZER TX INTERMITTENT 5 08/10/2012 EXTUBATION 2 08/09/2012 IV Count Last Ordered Date First Orde red Date IV REQUEST 1 08/10/2012 REMOVE SUBCLAVIAN 1 08/10/2012 Admission Count Last Ordered Date First Orde red Date STATUS: INPATIENT ACUTE ADMISSION 1 013 Transfer Count Last Ordered Date First Orde red Date CHANGE PCP 1 08/15/2012 NOTIFY PPS OF DISCHARGE COMPLETE 1 08/16/19 13 CHANGE ATTENDING TO: 1 08/12/2012 PPS NOTIFICATION OF PATIENT ARRIVAL ON UNIT 2 08/10/2012 08/08/2012 TRANSFER PATIENT 1 08/10/2012 Discharge Count Last Ordered Date First Orde red Date DISCHARGE PATIENT 1 08/15/2012 documented in this encounter Care Teams [employer] Relationship Specialty Start Date End Date Giovanni Roberts, AUBREE [address] [place] [id number] PCP - General 06/21/12 12/27/15 documented as of this encounter
--- OUTSIDE RECORDS SUMMARY | 2024-02-29 09:06 | XMS_ITS | Encounter Summary ---
Author Organization [facility] Address [address] [place] [address] Care Team Providers Care Babbitt Spinner Name Role Phone Unavailable Primary Care Provider Unavailabl e Encounter Details Date Type Department Care Team (Late st Contact Info) Description 03/11/1999 10:28 EST - 03/11/1999 11:59 EST Hospital Encounter [facility] - [facility] [address] [place] [address] Wilberto Dominguez MD [address] [place] [phone] Discharge Disposition: Auto Discharge Social History [...] Priority Date/Time Associated Diagnosis Comments L SPINE 4 OR MORE VIEWS Routine 03/11/1999 11:02 EST documented in this encounter Results * L SPINE 4 OR MORE VIEWS (03/11/1999 11:02 EST) Anatomical Region Laterality Modality Other 03/11/1999 11:0 2 EST Impressions 03/10/2009 11:39 EST IMPRESSION: 1. 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 2. Lumbosacral spine is generally unremarkable. D 03/13/99 T 03/16/99 /jl Narrative 03/10/2009 11:39 EST DDD. LBP. LUMBAR SPINE W/OBLIQUES 03/11/99, 1055 hours Procedure Note Fuad Vyas MD - 03/10/2009 DDD. LBP. LUMBAR SPINE W/OBLIQUES 03/11/99, 1055 hours IMPRESSION IMPRESSION: 1. Status post prior insertion of a Emmett filter into the inferior vena cava. 2. Lumbosacral spine is generally unremarkable. D 03/13/99 T 03/16/99 /divya Wilberto Dominguez MD IMG DIAGNOSTIC I MAGING ORDERABLES documented in this encounter Visit Diagnoses Not on filedocumented in this encounter
--- OUTSIDE RECORDS SUMMARY | 2024-02-29 09:06 | XMS_ITS | Encounter Summary ---
Author Organization [facility] Address [address] [place] [address] Care Team Providers Care Regional Economic Liaison Name Role Phone Unavailable Primary Care Provider Unavailabl e Encounter Details Date Type Department Care Team (Late st Contact Info) Description 03/29/2006 10:06 EST Hospital Encounter [facility] - [place] [facility] [address], [place] [address] Vivek Cerna MD [address] [place] [phone] Social History Tobacco Use Types Packs/Day [...]
--- OUTSIDE RECORDS SUMMARY | 2024-02-29 09:06 | XMS_ITS ---
Author Organization Unknown Address [address] [place] [phone] Phone Care Team Providers Care Bioinformatics Analyst Name Role Phone MICA GAN Attending Unavailable RAMIN PINKKADE Walsh Primary Unavailable Immunization Immunization Date Status Additional Notes Code Code System Tdap 10/03/2021 Completed 115 CVX Tdap 01/14/2022 Completed 115 CVX Social History Type Status Start Date End Date Code Code Syst em Smoking History Current every day smoker 341414696 SNOMED CT Smoking History Light tobacco smoker [id number] Smoking History Smoker, current status unknown 56578229 SNOMED CT Sex Male Medications Medication Start Date End Date Route Frequency Dose Code Code System Medication Instructions Home Meds Mapap 325MG Oral Tablet 03/07/2018 10/03/2021 BY MOUTH NEEDED EVERY 4 HOURS 650 MILLIGRAMS 564287 RxNorm TAKE 650 MILLIGRAMS BY MOUTH NEEDED EVERY 4 HOURS Lisinopri l 20MG Oral Tablet 04/01/2019 12/01/2022 ORAL DAILY 20 MILLIGRAMS 814555 RxNorm TAKE 20 MILLIGRAMS ORAL DAILY Ipratropi um [place]-A lbuterol Sulfate 0.5MG/3ML -3MG/3ML Inhalatio n Solution 04/01/2019 10/03/2021 INHALATI ON FOUR TIMES A DAY 1 unit(s) 8830353 RxNorm 1 EACH INHALATION FOUR TIMES A DAY ProAir HFA 0.09MG/1A ctuation Inhalatio n Suspensio n 04/01/2019 05/12/2022 INHALATI ON NEEDED FOUR TIMES A DAY 2 unit(s) 800904 RxNorm 2 EACH INHALATION NEEDED FOUR TIMES A DAY Pregabali n 200MG Oral Capsule 04/01/2019 07/27/2023 ORAL THREE TIMES A DAY 200 MILLIGRAMS 036621 RxNorm TAKE 200 MILLIGRAMS ORAL THREE TIMES A DAY QUEtiapin e Fumarate 300MG Oral Tablet 10/22/2019 05/12/2022 ORAL BEDTIME 300 MILLIGRAMS 998654 RxNorm TAKE 300 MILLIGRAMS ORAL BEDTIME DULoxetin e HCl 60MG Oral Capsule, Delayed Release 10/22/2019 07/27/2023 ORAL DAILY 60 MILLIGRAMS 975606 RxNorm TAKE 60 MILLIGRAMS ORAL DAILY Nicoderm CQ 14MG/24HR Transderm al Patch, Extended Release 01/15/2021 02/12/2022 TRANSDER MAL DAILY 1 unit(s) RxNorm APPLY 1 EACH TRANSDERMAL DAILY Cefpodoxi me Proxetil 200MG Oral Tablet 01/15/2021 10/03/2021 ORAL TWICE A DAY 1 TABLET 456391 RxNorm TAKE 1 TABLET ORAL TWICE A DAY Cefpodoxi me Proxetil 200MG Oral Tablet 01/15/2021 10/03/2021 ORAL TWICE A DAY 1 TABLET 627035 RxNorm TAKE 1 TABLET ORAL TWICE A DAY predniSON E 10MG Oral Tablet 01/15/2021 10/03/2021 ORAL DAILY 2 TABLET 314923 RxNorm TAKE 2 TABLET ORAL DAILY x 7 days then 1 tab daily x 7 days then stop Azithromy jennifer 250MG Oral Tablet 01/15/2021 10/03/2021 ORAL DAILY 250 MILLIGRAMS 106761 RxNorm TAKE 250 MILLIGRAMS ORAL DAILY Anoro Ellipta 62.5MCG-2 5MCG/1ACT Inhalatio n Powder 01/15/2021 10/03/2021 INHALATI ON 1 unit(s) 0185067 RxNorm 1 EACH INHALATION Flovent 0.22MG/Ac tuation Inhalatio n Aerosol Powder 01/15/2021 10/03/2021 INHALATI ON TWICE A DAY 2 PUFF 896899 RxNorm 2 PUFF INHALATION TWICE A DAY Ibuprofen 200MG Oral Tablet 01/15/2021 11/25/2022 ORAL NEEDED THREE TIMES A DAY 600 MILLIGRAMS 218423 RxNorm TAKE 600 MILLIGRAMS ORAL NEEDED THREE TIMES A DAY LORazepam 0.5MG Oral Tablet 01/15/2021 05/12/2022 ORAL NEEDED TWICE DAILY 0.5 MILLIGRAMS 433237 RxNorm TAKE 0.5 MILLIGRAMS ORAL NEEDED TWICE DAILY Methadone HCl 10MG/1ML Oral Solution 01/15/2021 10/03/2021 ORAL DAILY 13.2 mL 320377 RxNorm TAKE 13.2 mL ORAL DAILY predniSON E 20MG Oral Tablet 10/05/2021 11/14/2021 ORAL DAILY WITH FOOD 20 MILLIGRAMS 221740 RxNorm TAKE 20 MILLIGRAMS ORAL DAILY WITH FOOD Albuterol Sulfate 0.083% Inhalatio n Solution 10/05/2021 11/25/2022 INHALATI ON NEEDED EVERY 4 HOURS 1 unit(s) 483961 RxNorm 1 EACH INHALATION NEEDED EVERY 4 HOURS Anoro Ellipta 62.5MCG-2 5MCG/1ACT Inhalatio n Powder 10/05/2021 07/27/2023 INHALATI ON TWICE A DAY 1 PUFF 1808340 RxNorm 1 PUFF INHALATION TWICE A DAY Methadone HCl 40MG Oral Tablet for Suspensio n 10/05/2021 07/27/2023 ORAL DAILY 132 MILLIGRAMS 537798 RxNorm TAKE 132 MILLIGRAMS ORAL DAILY Cephalexi n 500MG Oral Capsule 10/05/2021 11/14/2021 ORAL THREE TIMES A DAY 1 CAPSULE 241426 RxNorm TAKE 1 CAPSULE ORAL THREE TIMES A DAY Doxycycli ne 100MG Oral Capsule 12/10/2021 12/21/2021 ORAL TWICE A DAY 1 CAPSULE 4405506 RxNorm TAKE 1 CAPSULE ORAL TWICE A DAY Zonisamid e 100MG Oral Capsule 12/22/2021 05/12/2022 ORAL TWICE A DAY 100 MILLIGRAMS 228827 RxNorm TAKE 100 MILLIGRAMS ORAL TWICE A DAY Keflex 500MG Oral Capsule 01/14/2022 02/12/2022 ORAL THREE TIMES A DAY 1 CAPSULE 895557 RxNorm TAKE 1 CAPSULE ORAL THREE TIMES A DAY predniSON E 10MG Oral Tablet 02/16/2022 11/25/2022 ORAL THREE TIMES A DAY WITH FOOD 10 MILLIGRAMS 881933 RxNorm TAKE 10 MILLIGRAMS ORAL THREE TIMES A DAY WITH FOOD SEROquel 300MG Oral Tablet 02/16/2022 12/22/2022 ORAL BEDTIME 300 MILLIGRAMS 797562 RxNorm TAKE 300 MILLIGRAMS ORAL BEDTIME Cephalexi n 500MG Oral Capsule 02/16/2022 02/16/2022 ORAL THREE TIMES A DAY 1 CAPSULE 858715 RxNorm TAKE 1 CAPSULE ORAL THREE TIMES A DAY Cephalexi n 500MG Oral Capsule 02/16/2022 05/12/2022 ORAL THREE TIMES A DAY 1 CAPSULE 637889 RxNorm TAKE 1 CAPSULE ORAL THREE TIMES A DAY MiraLAX 17GM/1Dos e Oral Powder for Solution 05/12/2022 11/25/2022 ORAL DAILY 17 GRAM 554604 RxNorm TAKE 17 G PAT ORAL DAILY Zonisamid e 100MG Oral Capsule 12/01/2022 07/27/2023 ORAL DAILY 200 MILLIGRAMS 113518 RxNorm TAKE 200 MILLIGRAMS ORAL DAILY Cefpodoxi me Proxetil 200MG Oral Tablet 12/01/2022 12/22/2022 ORAL EVERY 12 HOURS 200 MILLIGRAMS 476505 RxNorm TAKE 200 MILLIGRAMS ORAL EVERY 12 HOURS Ibuprofen 600MG Oral Tablet 12/01/2022 07/27/2023 ORAL NEEDED THREE TIMES A DAY 600 MILLIGRAMS 689725 RxNorm TAKE 600 MILLIGRAMS ORAL NEEDED THREE TIMES A DAY FOR PAIN Combivent Respimat 100MCG-20 MCG/1Act Inhalatio n [place] 12/01/2022 07/27/2023 INHALATI ON NEEDED EVERY 8 HOURS 1 unit(s) 9966866 RxNorm 1 EACH INHALATION NEEDED EVERY 8 HOURS Depo-Test osterone Novaplus 200MG/1ML Intramusc ular Oil 12/01/2022 07/27/2023 INTRAMUS CULAR 1 unit(s) 146411 RxNorm INJECT 1 EACH INTRAMUSCULA R Flovent 0.22MG/1A ctuation Inhalatio n Aerosol Powder 12/01/2022 07/27/2023 INHALATI ON TWICE A DAY 1 unit(s) 777213 RxNorm 1 EACH INHALATION TWICE A DAY Ventolin HFA 0.09MG/1A ctuation Inhalatio n Suspensio n 12/01/2022 07/27/2023 INHALATI ON 1 unit(s) 821282 RxNorm 1 EACH INHALATION guaiFENes in 600MG Oral Tablet, Extended Release 12/01/2022 12/01/2022 ORAL NEEDED TWICE DAILY 1 TABLET 905322 RxNorm TAKE 1 TABLET ORAL NEEDED TWICE DAILY FOR COUGH predniSON E 10MG Oral Tablet 12/01/2022 12/01/2022 ORAL DAILY 2 TABLET 938557 RxNorm TAKE 2 TABLET ORAL DAILY X 5 DAYS THEN 1 TAB DAILY X 5 DAYS THEN STOP guaiFENes in 600MG Oral Tablet, Extended Release 12/01/2022 07/27/2023 ORAL NEEDED TWICE DAILY 1 TABLET 916344 RxNorm TAKE 1 TABLET ORAL NEEDED TWICE DAILY FOR COUGH predniSON E 10MG Oral Tablet 12/01/2022 12/22/2022 ORAL DAILY 2 TABLET 487384 RxNorm TAKE 2 TABLET ORAL DAILY X 5 DAYS THEN 1 TAB DAILY X 5 DAYS THEN STOP Acetamino phen 500MG Oral Tablet 12/01/2022 07/27/2023 ORAL NEEDED THREE TIMES A DAY 2 TABLET 772189 RxNorm TAKE 2 TABLET ORAL NEEDED THREE TIMES A DAY FOR PAIN Lisinopri l 40MG Oral Tablet 12/01/2022 07/27/2023 ORAL DAILY 1 TABLET 213643 RxNorm TAKE 1 TABLET ORAL DAILY predniSON E 20MG Oral Tablet 12/22/2022 04/02/2023 ORAL DAILY 1 TABLET 147393 RxNorm TAKE 3 TABLETS DAILY FOR 3 DAYS, THEN 2 TABLETS DAILY FOR 3 DAYS, THEN 1 TABLET DAILY FOR 3 DAYS Narcan 4MG/0.1ML Nasal [place] 12/30/2022 07/27/2023 NASAL NEEDED 1 SPRAY 6931258 RxNorm SPRAY 1 SPRAY NASAL NEEDED FOR OPIATE OVERDOSE Albuterol Sulfate 0.09MG/1A ctuation Inhalatio n Suspensio n 12/30/2022 07/27/2023 INHALATI ON NEEDED EVERY 4 HOURS 2 PUFF 0153016 RxNorm 2 PUFF INHALATION NEEDED EVERY 4 HOURS FOR Shortness of breath Cefpodoxi me Proxetil 200MG Oral Tablet 04/05/2023 06/04/2023 ORAL TWICE A DAY 1 TABLET 083499 RxNorm TAKE 1 TABLET ORAL TWICE A DAY QUEtiapin e 300MG Oral Tablet 04/05/2023 07/27/2023 ORAL BEDTIME 300 MILLIGRAMS 794659 RxNorm TAKE 300 MILLIGRAMS ORAL BEDTIME predniSON E 10MG Oral Tablet 04/05/2023 06/04/2023 ORAL TWICE A DAY 2 TABLET 335422 RxNorm TAKE 2 TABLET ORAL TWICE A DAY for 3 days then 2 tabs daily x 3 days then 1 tab daily x 3 days Senna Plus 50MG-8.6M G Oral Tablet 04/05/2023 07/27/2023 ORAL TWICE A DAY 2 TABLET 755570 RxNorm TAKE 2 TABLET ORAL TWICE A DAY busPIRone 15MG Oral Tablet 04/05/2023 07/27/2023 ORAL THREE TIMES A DAY 15 MILLIGRAMS 946016 RxNorm TAKE 15 MILLIGRAMS ORAL THREE TIMES A DAY oxygen 04/05/2023 Unknown ORAL continuo us 3 LITERS RxNorm TAKE 3 LITERS ORAL continuous Milk Of Magnesia 400MG/5ML Oral Suspensio n 06/13/2023 07/27/2023 ORAL NEEDED DAILY 30 mL 273372 RxNorm TAKE 30 mL ORAL NEEDED DAILY predniSON E 20MG Oral Tablet 07/27/2023 10/16/2023 ORAL DAILY 2 TABLET 419984 RxNorm TAKE 2 TABLET ORAL DAILY predniSON E 20MG Oral Tablet 09/15/2023 10/16/2023 ORAL DAILY 2 TABLET 643783 RxNorm TAKE 2 TABLET ORAL DAILY Ibuprofen 200MG Oral Tablet 10/22/2023 Unknown ORAL NEEDED THREE TIMES A DAY 3 TABLET 177566 RxNorm TAKE 3 TABLET ORAL NEEDED THREE TIMES A DAY predniSON E 10MG Oral Tablet 10/22/2023 12/01/2023 ORAL TWICE A DAY 2 TABLET 676263 RxNorm TAKE 2 TABLET ORAL TWICE A DAY x 3 days then 1 tab twice a day x 5 days then 1 tab daily LORazepam 1MG Oral Tablet 10/22/2023 Unknown ORAL NEEDED TWICE DAILY 1 MILLIGRAMS 299053 RxNorm TAKE 1 MILLIGRAMS ORAL NEEDED TWICE DAILY Cefpodoxi me Proxetil 200MG Oral Tablet 10/22/2023 11/28/2023 ORAL EVERY 12 HOURS 200 MILLIGRAMS 197364 RxNorm TAKE 200 MILLIGRAMS ORAL EVERY 12 HOURS Anoro Ellipta 62.5MCG-2 5MCG/1ACT Inhalatio n Powder 10/22/2023 Unknown INHALATI ON DAILY 1 GRAM 0273169 RxNorm 1 GRAM INHALATION DAILY DULoxetin e HCl 60MG Oral Capsule, Delayed Release 10/22/2023 Unknown ORAL DAILY 60 MILLIGRAMS 955726 RxNorm TAKE 60 MILLIGRAMS ORAL DAILY Linzess 145MCG Oral Capsule 10/22/2023 10/27/2023 ORAL DAILY 1 unit(s) 0451678 RxNorm TAKE 1 E ACH ORAL DAILY Lisinopri l 40MG Oral Tablet 10/22/2023 Unknown ORAL DAILY 40 MILLIGRAMS 19771202 RxNorm TAKE 40 MILLIGRAMS ORAL DAILY Methadone 10MG Oral Tablet 10/22/2023 Unknown ORAL DAILY 132 MILLIGRAMS RxNorm TAKE 132 MILLIGRAMS ORAL DAILY Pregabali n 200MG Oral Capsule 10/22/2023 Unknown ORAL THREE TIMES A DAY 200 MILLIGRAMS 761039 RxNorm TAKE 200 MILLIGRAMS ORAL THREE TIMES A DAY QUEtiapin e Fumarate 300MG Oral Tablet 10/22/2023 Unknown ORAL BEDTIME 300 MILLIGRAMS 539857 RxNorm TAKE 300 MILLIGRAMS ORAL BEDTIME Testoster one Cypionate 200MG/1ML Intramusc ular Oil 10/22/2023 Unknown 3749388 RxNorm As directed Ventolin HFA 0.09MG/1A ctuation Inhalatio n Suspensio n 10/22/2023 Unknown INHALATI ON NEEDED EVERY 4 HOURS 2 PUFF 035858 RxNorm 2 PUFF INHALATION NEEDED EVERY 4 HOURS Acetamino phen 500MG Oral Tablet 10/22/2023 Unknown ORAL THREE TIMES A DAY 2 TABLET RxNorm TAKE 2 TABLET ORAL THREE TIMES A DAY predniSON E 10MG Oral Tablet 12/01/2023 12/07/2023 ORAL DAILY 4 TABLET 246878 RxNorm TAKE 4 TABLET ORAL DAILY x 3 days then 2 tabs daily x 3 days then 1 tab daily x 7 days Cefpodoxi me Proxetil 200MG Oral Tablet 12/01/2023 12/07/2023 ORAL TWICE A DAY 1 TABLET 903758 RxNorm TAKE 1 TABLET ORAL TWICE A DAY levoFLOXa jennifer 750MG Oral Tablet 12/25/2023 Unknown ORAL DAILY 1 TABLET 203999 RxNorm TAKE 1 TABLET ORAL DAILY predniSON E 50MG Oral Tablet 12/25/2023 Unknown ORAL DAILY 1 TABLET 614000 RxNorm TAKE 1 TABLET ORAL DAILY Assessment [...] Date Status Code Code System PNEUMONIA active [id number] SNOMED-CT POLYSUBSTANCE ABUSE active 978291801 SNOMED-CT ACUTE AND CHRONIC RESPIRATORY FAILURE WITH HYPERCAPNIA active 0282075751669 SNOMED-CT ACUTE AND CHRONIC RESPIRATORY FAILURE WITH HYPOXIA active 04665451 SNOMED-CT COPD WITH EXACERBATION active 5596574 07 SNOMED-CT ALCOHOL USE WITH WITHDRAWAL active 037893153 SNOMED-CT CHRONIC RESPIRATORY FAILURE WITH HYPOXIA 10/03/2021 resolved 41532648 SNOMED- CT OTHER SEIZURES 10/03/2021 resolved 75372646 SNOM ED-CT PULMONARY NODULE 10/03/2021 resolved 483069711 SN OMED-CT CHRONIC HEPATITIS C 10/03/2021 resolved 950970258 SNOMED-CT ANXIETY DISORDER 10/03/2021 resolved 654636625 SN OMED-CT 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 10/03/2021 resolved [id number] SNOME D-CT NICOTINE DEPENDENCE 01/13/2021 resolved 36423801 SNOMED-CT VENOUS INSUFFICIENCY 10/03/2021 resolved 42205828 SNOMED-CT ALCOHOL INTOXICATION 11/26/2022 resolved 12958600 SNOMED-CT AMS 11/26/2022 resolved 157858640 SNOMED-CT HYPOKALEMIA 11/26/2022 resolved 43246374 SNOMED- CT OPIATE TOXICITY 06/04/2023 resolved 757379090 SNO MED-CT ACUTE ALCOHOL INTOXICATION 04/01/2023 resolved 0303031001 SNOMED-CT FEVER 06/04/2023 resolved 774321847 SNOMED-CT ALTERED MENTAL STATUS 06/04/2023 resolved 2955170 04 SNOMED-CT CHRONIC HEADACHE DISORDER 10/03/2021 resolved 706490400 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 510051 00 SNOMED-CT ALCOHOL DEPENDENCE WITH WITHDRAWAL 01/13/2021 resolved 47146936 SNOMED-CT HTN 10/03/2021 resolved 71984241 SNOMED-CT COPD 09/09/2021 resolved 15438521 SNOMED-CT HIGH CHOLESTEROL 09/09/2021 resolved 66043153 SN OMED-CT Allergies and Adverse Reactions Allergy Substance Reaction Severity Start Date Concern Status Code Code System PCN (penicillin) Anaphylaxis (SNOMED-CT: 56556357) Moderate Active 0770531 SNOMED-CT Plan of Treatment X-RAY 03/21/2022 MRI BRAIN W WO CONTRAST 12/06/2021 MRI BRAIN W WO CONTRAST 11/30/2021 LAB DRAW 15MIN 05/13/2021 Encounters Encounter Diagnosis Start Date Code Code Sys tem Generalized idiopathic epile psy and epileptic syndromes, not intractable, without status epilepticus 07/15/2021 SNOMED-CT Personal Care Team Section Performer Name Performer Role Active Date Inactive Da te
--- OUTSIDE RECORDS SUMMARY | 2024-02-29 09:06 | XMS_ITS | Encounter Summary ---
Author Organization [facility] Address [address] [place] [address] Care Team Providers Care Java Lead Name Role Phone None, Provider Primary Care Provider Unavailabl e Encounter Details Date Type Department Care Team (Late st Contact Info) Description 09/23/2011 Abstract [facility] Adult Primary Care - [address] [id number] None, Provider Social History Tobacco Use Types Packs/Day Years Used Date Smoking Tobacco: Never Assessed Sex and Gender Information Value Date Recorded Sex Assigned at Not on file Gender Identity Male 04/10/2020 10:26 EST Sexual Orientation Not on file documented as of this encounter Plan of Treatment Not on file documented as of this encounter Visit Diagnoses Not on filedocumented in this encounter Historical Medications * This list may reflect changes made after this encounter. Medication Sig Dispensed Refills Start Date End Date polyethylene glycol (MIRALAX) 17 gram/dose powder Take 17 g by mouth daily. Reported on 04/12/2016 albuterol (PROAIR HFA) 90 mcg/actuation inhaler Inhale 2 Puffs as directed as needed. albuterol-ipratropium (COMBIVENT) 18-103 mcg/actuation inhaler Inhale 2 Puffs as directed 4 times daily. hydrOXYzine (VISTARIL) 25 mg capsule Take 25 mg by mouth 4 times daily as needed. Reported on 04/12/2016 04/08/2020 sertraline (ZOLOFT) 100 mg tablet Take 150 mg by mouth daily. 08/15/2012 amitriptyline (ELAVIL) 50 mg tablet Take 50 mg by mouth daily. 08/15/2012 meloxicam (MOBIC) 15 mg tablet Take 15 mg by mouth daily. 08/15/2012 buprenorphine-naloxone (SUBOXONE) 8-[address] 8 mg under the tongue 2 times daily. 08/15/2012 added in this encounter Care Teams Java Lead Relationship Specialty Start Date End Date None, Provider PCP - General 08/09/11 06/20/12 documented as of this encounter
--- OUTSIDE RECORDS SUMMARY | 2024-02-29 09:06 | XMS_ITS | Encounter Summary ---
Author Organization [facility] Address [address] [place] [address] Care Team Providers Care Transmission Operator Name Role Phone Unavailable Primary Care Provider Unavailabl e Encounter Details Date Type Department Care Team (Latest Contact Info) Description 04/26/2006 10:53 EST - 04/26/2006 11:59 EST Hospital Encounter [facility] [address] [place] [address] Vivek Cerna MD [address] [place] [phone] Discharge Disposition: Auto Discharge Social History [...]
--- OUTSIDE RECORDS SUMMARY | 2024-02-29 09:06 | XMS_ITS | Encounter Summary ---
Author Organization [facility] Address [address] [place] [address] Care Team Providers Care Sailing Officer Name Role Phone None, Provider Primary Care Provider Anjum Martin MD Unavailable Unavailable Encounter Details Date Type Department Care Team (Late st Contact Info) Description 08/17/2011 Orders Only [facility] - [address] [address] Vivek Cerna MD [address] [place] [phone] Lower limb amputation, below knee (Primary Dx) Social History Tobacco Use Types Packs/Day Years Used Date Smoking Tobacco: Never Assessed Sex and Gender Information Value Date Recorded Sex Assigned at Not on file Gender Identity Male 04/10/2020 10:26 EST Sexual Orientation Not on file documented as of this encounter Plan of Treatment Not on file documented as of this encounter Visit Diagnoses Diagnosis Lower limb amputation, below knee- Primary documented in this encounter Orders Equipment Count Last Ordered Date First Orde red Date GENERIC DME ORDER 1 08/18/2011 documented in this encounter Care Teams Sailing Officer Relationship Specialty Start Date End Date None, Provider PCP - General 08/09/11 06/20/12 Anjum Carnes MD PCP - Alternate 10/01/11 10/09/11 documented as of this encounter
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
--- OUTSIDE RECORDS SUMMARY | 2024-02-29 09:06 | XMS_ITS | Encounter Summary ---
Author Organization [facility] Address [address] [place] [address] Care Team Providers Care Cafe Or Restaurant Manager Name Role Phone Unavailable Primary Care Provider Unavailabl e Encounter Details Date Type Department Care Team (Late st Contact Info) Description 02/21/2006 Before PRISM Converted Visit (Maple) [facility] - Maple conversion [address] [place], [place] [id number] [phone] Vivek Cerna MD [address] [place] [phone] Social History Tobacco Use Types Packs/Day Years Used Date Smoking Tobacco: Never Assessed Sex and Gender Information Value Date Recorded Sex Assigned at Not on file Gender Identity Male 04/10/2020 10:26 EST Sexual Orientation Not on file documented as of this encounter Progress Notes * Vivek Cerna MD - 04/24/2009 1334 EST Sports Medicine and Orthopaedic Trauma Department Medical Office Building [address] [place] [address], [address] [place] [address] PROGRESS/FOLLOWUP NOTE - 02/21/2006 MS: Chronic pain - both legs. Disabled 30 year old S/P ruasq-lls-qqox amputation on the right. S: ???I want to be checked for bone cancer. My mother has bone cancer and my bones ache all the time. I also want you to talk to this integrity manager in [place], [place]. He has some questions for you. Here is his name and number. (Fuad Silveira, [facility],[place], [place]). O: Patients stump on the right is in great condition. He has a new hnmnb-wnh-qixv prosthesis, whichappears to be fitting pretty well. It was just lowered to make his leg lengths equal in the past week or so. He walks with a bilaterally antalgic gait and his affect reflects his chronic somatic pain. He has a history of low back pain, disc pathology and radiating nerve pain. : Chronic pain. PL: I dont think the patient needs any specific treatment at this time. He is still talking about having an yeqgb-zwn-gtlq amputation on the xgbsj-gql-clms amputation side, which I told him before isnot going to solve anything. He is given a prescription for #150 Percocet 5/325. We will call the manager utilities in [place], [place]. He will return here on a prn basis. Signed by Vivek Cerna MD 02/23/2006 15:41 Valerie Arceo MD Vivek Cerna MD - Vivek Cerna MD P - fmp Job ID: tape Document ID: [id number] cc: Brittney Guardado MD [address] [address] documented in this encounter Plan of Treatment Not on file documented as of this encounter Visit Diagnoses Not on filedocumented in this encounter
--- OUTSIDE RECORDS SUMMARY | 2024-02-29 09:06 | XMS_ITS | Encounter Summary ---
Author Organization [facility] Address [address] [place] [address] Care Team Providers Care Dividend Deposit Entry Clerk Name Role Phone Unknown, Provider Primary Care Provider [phone] Encounter Details Date Type Department Care Team (Late st Contact Info) Description 01/21/2010 Orders Only [facility] Orthopedic Trauma - [address] [address] Vivek Crena MD [address] [place] [phone] Closed fracture of shaft of tibia (Primary Dx); Closed fracture of shaft of femur (HCC-CMS) Social History Tobacco Use Types Packs/Day Years Used Date Smoking Tobacco: Never Assessed Sex and Gender Information Value Date Recorded Sex Assigned at Not on file Gender Identity Male 04/10/2020 10:26 EST Sexual Orientation Not on file documented as of this encounter Plan of Treatment Not on file documented as of this encounter Visit Diagnoses Diagnosis Closed fracture of shaft of tibia- Primary Closed fracture of shaft of femur (HCC-CMS) Closed fracture of shaft of femur documented in this encounter Care Teams Dividend Deposit Entry Clerk Relationship Specialty Start Date End Date Unknown, Provider, PCP - General 12/28/09 08/08/11 documented as of this encounter
--- OUTSIDE RECORDS SUMMARY | 2024-02-29 09:06 | XMS_ITS | Encounter Summary ---
Author Organization [facility] Address [address] [place] [address] Care Team Providers Care Metal Coater Operator Name Role Phone Unknown, Provider Primary Care Provider [phone] Encounter Details Date Type Department Care Team (Late st Contact Info) Description 07/29/2011 Abstract [facility] Orthopedic Trauma - [address] [address] Vivek Cerna MD [address] [place] [phone] Social History Tobacco Use Types Packs/Day [...] on filedocumented in this encounter Care Teams Metal Coater Operator Relationship Specialty Start Date End Date Unknown, Provider, PCP - General 12/28/09 08/08/11 documented as of this encounter
--- OUTSIDE RECORDS SUMMARY | 2024-02-29 09:06 | XMS_ITS | Encounter Summary ---
Author Organization [facility] Address [address] [place] [address] Care Team Providers Care Rn Corrections Name Role Phone Unavailable Primary Care Provider Unavailabl e Encounter Details Date Type Department Care Team (Late st Contact Info) Description 08/25/1999 14:14 EDT Hospital Encounter [facility] [address] [place] [address] Timothy Lake MD [address] [place] [address] [address] [place] [phone] Discharge Disposition: Auto Discharge Social History Tobacco [...] Procedure Name Priority Date/Time Associated Diagnosis Comments IBC Routine 08/25/1999 14:12 EDT MITOCHONDRIAL IGG ANTIBODY Routine 08/25/1999 14:12 EDT CERULOPLASMIN, S Routine 08/25/1999 14:1 2 EDT ACTIN IGG AB LAYLA Routine 08/25/1999 14 :12 EDT ANTI NUCLEAR AB (CESAR), IFA Routine 08/25/1999 14:12 EDT TSH Routine 08/25/1999 14:12 EDT SPEP, INCLUDES QUANTITATION OF MONOCLONAL SPIKE Routine 08/25/1999 14:12 EDT IRON Routine 08/25/1999 14:12 EDT FERRITIN Routine 08/25/1999 14:12 EDT documented in this encounter Results * (ABNORMAL) TSH (08/25/1999 14:12 EDT) TSH 0.23(L) 0.35 - 5.50 uIU/ml [facility] 08/25/1999 14:1 2 EDT 08/25/1999 14:13 EDT Timothy Lake MD CHEMISTRY & BLOOD GAS ORDERABLES Performing Organization Address [facility] de Phone Number [facility] [address] [place] [address] * ELECTROPHORESIS, SERUM (08/25/1999 14:12 EDT) Total Protein 8.3 6.0 - 8.5 g/dl [facility] Albumin, SPEP 53.0 49.0 - 61.0 % [facility] Alpha-1 % 3.6 2.4 - 4.9 % [facility] Alpha 2, SPEP 13.7 10.0 - 19.0 % [facility] Beta, SPEP 12.4 9.0 - 14.0 % [facility] Gamma, SPEP 17.3 11.0 - 21.0 % [facility] Comments, SPEP Copy of electrophoretic scan to follow [facility] 08/25/1999 14:1 2 EDT 08/25/1999 14:13 EDT Timothy Lake MD CHEMISTRY & BLOOD GAS ORDERABLES Performing Organization Address [facility] Co de Phone Number [facility] [address] [place] [address] * SMOOTH MUSCLE ANTIBODY (08/25/1999 14:12 EDT) Smooth Muscle Ab <20 <20 Dils [facility] 08/25/1999 14:1 2 EDT 08/25/1999 14:13 EDT Timothy Lake MD IMMUNOLOGY AND SE ROLOGY ORDERABLES Performing Organization Address [facility] Phone Number [facility] [address] [place] [address] * MITOCHONDRIAL ANTIBODY (08/25/1999 14:12 EDT) Mitochondrial Ab <20 <20 Dils [facility] 08/25/1999 14:1 2 EDT 08/25/1999 14:13 EDT Timothy Lake MD IMMUNOLOGY AND SE ROLOGY ORDERABLES Performing Organization Address [facility] Phone Number [facility] [address] [place] [address] * IRON (08/25/1999 14:12 EDT) Iron 161 70 - 180 ug/dl [facility] 08/25/1999 14:1 2 EDT 08/25/1999 14:13 EDT Timothy Lake MD CHEMISTRY & BLOOD GAS ORDERABLES Performing Organization Address [facility] de Phone Number [facility] [address] [place] [address] * IBC (08/25/1999 14:12 EDT) TIBC 378 250 - 450 ug/dl [facility] 08/25/1999 14:1 2 EDT 08/25/1999 14:13 EDT Timothy Lake MD CHEMISTRY & BLOOD GAS ORDERABLES Performing Organization Address [facility] Co de Phone Number [facility] [address] [place] [address] * (ABNORMAL) FERRITIN (08/25/1999 14:12 EDT) Ferritin 496(H) 42 - 313 ng/ml [facility] 08/25/1999 14:1 2 EDT 08/25/1999 14:13 EDT Timothy Lake MD CHEMISTRY & BLOOD GAS ORDERABLES [facility] [address] [place] [address] * (ABNORMAL) CERULOPLASMIN (08/25/1999 14:12 EDT) Cerulplasmin 45.9Unit: mg/dL ??(Note) -- EXPECTED VALUES -- ? (Ref Range) 22.9 to 43.1 ? TEST PERFORMED OR REFERRED BY [facility] ? [facility] ? [address] ? [place], [place] ??[id number] ?(H) [facility] 08/25/1999 14:1 2 EDT 08/25/1999 14:13 EDT Timothy Lake MD CHEMISTRY & BLOOD GAS ORDERABLES Performing Organization Address [facility] de Phone Number [facility] [address] [place] [address] * ANTI NUCLEAR ANTIBODY (08/25/1999 14:12 EDT) Anti Nuclear Ab <40 0 - 40 Dils [facility] 08/25/1999 14:1 2 EDT 08/25/1999 14:13 EDT Timothy Lake MD IMMUNOLOGY AND SE ROLOGY ORDERABLES Performing Organization Address [facility] de Phone Number [facility] [address] [place] [address] documented in this encounter Visit Diagnoses Not on filedocumented in this encounter
--- OUTSIDE RECORDS SUMMARY | 2024-02-29 09:06 | XMS_ITS | Encounter Summary ---
Author Organization [facility] Address [address] [place] [address] Care Team Providers Care Foam Fabricator Name Role Phone Unavailable Primary Care Provider Unavailabl e Encounter Details Date Type Department Care Team (Late st Contact Info) Description 04/06/2007 12:45 EST Hospital Encounter [facility] [address] [place] [address] Wilberto Mtz PA-C [address] [place] [phone] Discharge Disposition: Auto Discharge Social History Tobacco Use Types Packs/Day Years Used Date Smoking Tobacco: Never Assessed Sex and Gender Information Value Date Recorded Sex Assigned at Not on file Gender Identity Male 04/10/2020 10:26 EST Sexual Orientation Not on file documented as of this encounter Discharge Disposition Disposition Code Departure Means Destination Auto Discharge documented in this encounter Plan of Treatment Pending Results Name Type Priority Associated Diagnoses Date /Time OUTSIDE IMAGES - OTHER CHEST Imaging 08/08/2012 18:14 EDT OUTSIDE IMAGES - CT NEURO Imaging 08/08/2012 19:39 EDT Scheduled Orders Name Type Priority Associated Diagnoses Orde r Schedule OUTSIDE IMAGES - OTHER CHEST Imaging For medications that can be administered at any time during the hospitalization for visit such as immunizations. for 1 Occurrences starting 08/08/2012 OUTSIDE IMAGES - CT NEURO Imaging For medications that can be administered at any time during the hospitalization for visit such as immunizations. for 1 Occurrences starting 08/08/2012 documented as of this encounter Procedures Procedure Name Priority Date/Time Associated Diagnosis Comments HIP UNILATERAL 1 VIEW 07/21/2011 9:12 EDT PELVIS 1 OR 2 VIEWS 04/06/2007 1 3:43 EST L SPINE 4 OR MORE VIEWS 04/06/2007 13:43 EST documented in this encounter Results * HIP UNILATERAL 1 VIEW (07/21/2011 9:12 EDT) Anatomical Region Laterality Modality [...] involving the proximal and mid femur. Vivek Cerna MD IMG DIAGNOSTIC I MAGING ORDERABLES * PELVIS 1 OR 2 VIEWS (04/06/2007 13:43 EST) Anatomical Region Laterality Modality Other 04/06/2007 13:4 3 EST Narrative 10/20/2008 5:40 EDT right hip and lbp. r/o ddd, djd. PELVIS 1 OR 2 VIEWS ??Apr 06, 2007 1:43:00 PM Lumbar spine 4 views Signs and Symptoms: ??right hip and lbp. r/o ddd, djd. 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 There is some myositis ossificans or tendinous calcifications seen adjacent to the greater trochanter of the left hip. Films of the lumbar spine show an inferior vena caval filter in place. The exam shows normal lumbar vertebral alignment with a very mild scoliosis convex to the right. There is no evidence of instability on flexion or extension positioning. Procedure Note Giovanni Russell MD - 10/20/2008 right hip and lbp. r/o ddd, djd. PELVIS 1 OR 2 VIEWS Apr 06, 2007 1:43:00 PM Lumbar spine 4 views Signs and Symptoms: right hip and lbp. r/o ddd, djd. 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 There is some myositis ossificans or tendinous calcifications seen adjacent to the greater trochanter of the left hip. Films of the lumbar spine show an inferior vena caval filter in place. The exam shows normal lumbar vertebral alignment with a very mild scoliosis convex to the right. There is no evidence of instability on flexion or extension positioning. Wilberto Mtz PA-C [facility] DI[facility] IMAGI NG ORDERABLES * L SPINE 4 OR MORE VIEWS (04/06/2007 13:43 EST) Anatomical Region Laterality Modality Other 04/06/2007 13:4 3 EST Narrative 10/20/2008 5:40 EDT right hip and lbp. r/o ddd, djd. PELVIS 1 OR 2 VIEWS ??Apr 06, 2007 1:43:00 PM Lumbar spine 4 views Signs and Symptoms: ??right hip and lbp. r/o ddd, djd. 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 There is some myositis ossificans or tendinous calcifications seen adjacent to the greater trochanter of the left hip. Films of the lumbar spine show an inferior vena caval filter in place. The exam shows normal lumbar vertebral alignment with a very mild scoliosis convex to the right. There is no evidence of instability on flexion or extension positioning. Procedure Note Giovanni Russell MD - 10/20/2008 right hip and lbp. r/o ddd, djd. PELVIS 1 OR 2 VIEWS Apr 06, 2007 1:43:00 PM Lumbar spine 4 views Signs and Symptoms: right hip and lbp. r/o ddd, djd. 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 There is some myositis ossificans or tendinous calcifications seen adjacent to the greater trochanter of the left hip. Films of the lumbar spine show an inferior vena caval filter in place. The exam shows normal lumbar vertebral alignment with a very mild scoliosis convex to the right. There is no evidence of instability on flexion or extension positioning. Wilberto FARRELL DIAGNOSTIC IMAGI NG ORDERABLES documented in this encounter Visit Diagnoses Not on filedocumented in this encounter
--- OUTSIDE RECORDS SUMMARY | 2024-02-29 09:06 | XMS_ITS | Encounter Summary ---
Author Organization [facility] Address [address] [place] [address] Care Team Providers Care Stacker Operator Name Role Phone Unavailable Primary Care Provider Unavailabl e Encounter Details Date Type Department Care Team (Late st Contact Info) Description 09/29/2009 Abstract [facility] Orthopedic Trauma - [address] [address] Vivek Cerna MD [address] [place] [address] Femur fracture, left ([facility]) ([facility]); Fracture, tibia; Below knee amputation status ([facility]); Radius distal fracture; Distal radius fracture Social History Tobacco Use Types Packs/Day Years Used Date Smoking Tobacco: Never Assessed Sex and Gender Information Value Date Recorded Sex Assigned at Not on file Gender Identity Male 04/10/2020 10:26 EST Sexual Orientation Not on file documented as of this encounter Plan of Treatment Not on file documented as of this encounter Visit Diagnoses Diagnosis Femur fracture, left ([facility]) Closed fracture of unspecified part of femur Fracture, tibia Closed fracture of unspecified part of tibia Below knee amputation status Lower limb amputation, below knee Radius distal fracture Other closed fractures of distal end of radius (alone) Distal radius fracture Other closed fractures of distal end of radius (alone) documented in this encounter
--- OUTSIDE RECORDS SUMMARY | 2024-02-29 09:07 | XMS_ITS ---
Author Organization Unknown Address [address] [place] [phone] Phone Care Team Providers Care Assembly Operator Name Role Phone CORDELIA Barragan Attending Unavailable RAMIN Walsh Primary Unavailable Immunization Immunization Date Status Additional Notes Code Code System Tdap 10/03/2021 Completed 115 CVX Tdap 01/14/2022 Completed 115 CVX Social History Type Status Start Date End Date Code Code Syst em Smoking History Current every day smoker 943025133 SNOMED CT Smoking History Light tobacco smoker [id number] Smoking History Smoker, current status unknown [id number] SNOMED CT Sex Male Medications Medication Start Date End Date Route Frequency Dose Code Code System Medication Instructions Home Meds Lisinopril 20MG Oral Tablet 04/01/2019 12/01/2022 ORAL DAILY 20 MILLIGRAMS 597832 RxNorm TAKE 20 MILLIGRAMS ORAL DAILY ProAir HFA 0.09MG/1Actu ation Inhalation Suspension 04/01/2019 05/12/2022 INHALA TION NEEDED FOUR TIMES A DAY 2 unit(s) 335498 RxNorm 2 EACH INHALATION NEEDED FOUR TIMES A DAY Pregabalin 200MG Oral Capsule 04/01/2019 07/27/2023 ORAL THREE TIMES A DAY 200 MILLIGRAMS 580749 RxNorm TAKE 200 MILLIGRAMS ORAL THREE TIMES A DAY DULoxetine HCl 60MG Oral Capsule, Delayed Release 10/22/2019 07/27/2023 ORAL DAILY 60 MILLIGRAMS 553703 RxNorm TAKE 60 MILLIGRAMS ORAL DAILY QUEtiapine Fumarate 300MG Oral Tablet 10/22/2019 05/12/2022 ORAL BEDTIME 300 MILLIGRAMS 797869 RxNorm TAKE 300 MILLIGRAMS ORAL BEDTIME Nicoderm CQ 14MG/24HR Transdermal Patch, Extended Release 01/15/2021 02/12/2022 TRANSD ERMAL DAILY 1 unit(s) RxNorm APPLY 1 EACH TRANSDERMAL DAILY Ibuprofen 200MG Oral Tablet 01/15/2021 11/25/2022 ORAL NEEDED THREE TIMES A DAY 600 MILLIGRAMS 543695 RxNorm TAKE 600 MILLIGRAMS ORAL NEEDED THREE TIMES A DAY LORazepam 0.5MG Oral Tablet 01/15/2021 05/12/2022 ORAL NEEDED TWICE DAILY 0.5 MILLIGRAMS 843262 RxNorm TAKE 0.5 MILLIGRAMS ORAL NEEDED TWICE DAILY Anoro Ellipta 62.5MCG-25MC G/1ACT Inhalation Powder 10/05/2021 07/27/2023 INHALA TION TWICE A DAY 1 PUFF 7380168 RxNorm 1 PUFF INHALATION TWICE A DAY Albuterol Sulfate 0.083% Inhalation Solution 10/05/2021 11/25/2022 INHALA TION NEEDED EVERY 4 HOURS 1 unit(s) 283220 RxNorm 1 EACH INHALATION NEEDED EVERY 4 HOURS Methadone HCl 40MG Oral Tablet for Suspension 10/05/2021 07/27/2023 ORAL DAILY 132 MILLIGRAMS 472545 RxNorm TAKE 132 MILLIGRAMS ORAL DAILY Doxycycline 100MG Oral Capsule 12/10/2021 12/21/2021 ORAL TWICE A DAY 1 CAPSULE 8814124 RxNorm TAKE 1 CAPSULE ORAL TWICE A DAY Zonisamide 100MG Oral Capsule 12/22/2021 05/12/2022 ORAL TWICE A DAY 100 MILLIGRAMS 601769 RxNorm TAKE 100 MILLIGRAMS ORAL TWICE A DAY Keflex 500MG Oral Capsule 01/14/2022 02/12/2022 ORAL THREE TIMES A DAY 1 CAPSULE 987050 RxNorm TAKE 1 CAPSULE ORAL THREE TIMES A DAY predniSONE 10MG Oral Tablet 02/16/2022 11/25/2022 ORAL THREE TIMES A DAY WITH FOOD 10 MILLIGRAMS 906800 RxNorm TAKE 10 MILLIGRAMS ORAL THREE TIMES A DAY WITH FOOD SEROquel 300MG Oral Tablet 02/16/2022 12/22/2022 ORAL BEDTIME 300 MILLIGRAMS 067115 RxNorm TAKE 300 MILLIGRAMS ORAL BEDTIME Cephalexin 500MG Oral Capsule 02/16/2022 02/16/2022 ORAL THREE TIMES A DAY 1 CAPSULE 315087 RxNorm TAKE 1 CAPSULE ORAL THREE TIMES A DAY Cephalexin 500MG Oral Capsule 02/16/2022 05/12/2022 ORAL THREE TIMES A DAY 1 CAPSULE 040500 RxNorm TAKE 1 CAPSULE ORAL THREE TIMES A DAY MiraLAX 17GM/1Dose Oral Powder for Solution 05/12/2022 11/25/2022 ORAL DAILY 17 GRAM 458476 RxNorm TAKE 17 GRAM ORAL DAILY Ventolin HFA 0.09MG/1Actu ation Inhalation Suspension 12/01/2022 07/27/2023 INHALA TION 1 unit(s) 356797 RxNorm 1 EACH INHALATION Cefpodoxime Proxetil 200MG Oral Tablet 12/01/2022 12/22/2022 ORAL EVERY 12 HOURS 200 MILLIGRAMS 970881 RxNorm TAKE 200 MILLIGRAMS ORAL EVERY 12 HOURS Ibuprofen 600MG Oral Tablet 12/01/2022 07/27/2023 ORAL NEEDED THREE TIMES A DAY 600 MILLIGRAMS 254074 RxNorm TAKE 600 MILLIGRAMS ORAL NEEDED THREE TIMES A DAY FOR PAIN Combivent Respimat 100MCG-20MCG /1Act Inhalation [place] 12/01/2022 07/27/2023 INHALA TION NEEDED EVERY 8 HOURS 1 unit(s) 5115882 RxNorm 1 EACH INHALATION NEEDED EVERY 8 HOURS Depo-Testost erone Novaplus 200MG/1ML Intramuscula r Oil 12/01/2022 07/27/2023 INTRAM USCULA R 1 unit(s) 190371 RxNorm INJECT 1 EACH INTRAMUSCULA R Flovent 0.22MG/1Actu ation Inhalation Aerosol Powder 12/01/2022 07/27/2023 INHALA TION TWICE A DAY 1 unit(s) 462224 RxNorm 1 EACH INHALATION TWICE A DAY Zonisamide 100MG Oral Capsule 12/01/2022 07/27/2023 ORAL DAILY 200 MILLIGRAMS 216544 RxNorm TAKE 200 MILLIGRAMS ORAL DAILY guaiFENesin 600MG Oral Tablet, Extended Release 12/01/2022 12/01/2022 ORAL NEEDED TWICE DAILY 1 TABLET 791764 RxNorm TAKE 1 TABLET ORAL NEEDED TWICE DAILY FOR COUGH predniSONE 10MG Oral Tablet 12/01/2022 12/01/2022 ORAL DAILY 2 TABLET 829651 RxNorm TAKE 2 TABLET ORAL DAILY X 5 DAYS THEN 1 TAB DAILY X 5 DAYS THEN STOP guaiFENesin 600MG Oral Tablet, Extended Release 12/01/2022 07/27/2023 ORAL NEEDED TWICE DAILY 1 TABLET 573263 RxNorm TAKE 1 TABLET ORAL NEEDED TWICE DAILY FOR COUGH predniSONE 10MG Oral Tablet 12/01/2022 12/22/2022 ORAL DAILY 2 TABLET 102781 RxNorm TAKE 2 TABLET ORAL DAILY X 5 DAYS THEN 1 TAB DAILY X 5 DAYS THEN STOP Acetaminophe n 500MG Oral Tablet 12/01/2022 07/27/2023 ORAL NEEDED THREE TIMES A DAY 2 TABLET 601118 RxNorm TAKE 2 TABLET ORAL NEEDED THREE TIMES A DAY FOR PAIN Lisinopril 40MG Oral Tablet 12/01/2022 07/27/2023 ORAL DAILY 1 TABLET 933102 RxNorm TAKE 1 TABLET ORAL DAILY predniSONE 20MG Oral Tablet 12/22/2022 04/02/2023 ORAL DAILY 1 TABLET 921297 RxNorm TAKE 3 TABLETS DAILY FOR 3 DAYS, THEN 2 TABLETS DAILY FOR 3 DAYS, THEN 1 TABLET DAILY FOR 3 DAYS Narcan 4MG/0.1ML Nasal [place] 12/30/2022 07/27/2023 NASAL NEEDED 1 SPRAY 6775898 RxNorm SPRAY 1 SPRAY NASAL NEEDED FOR OPIATE OVERDOSE Albuterol Sulfate 0.09MG/1Actu ation Inhalation Suspension 12/30/2022 07/27/2023 INHALA TION NEEDED EVERY 4 HOURS 2 PUFF 1288628 RxNorm 2 PUFF INHALATION NEEDED EVERY 4 HOURS FOR Shortness of breath Cefpodoxime Proxetil 200MG Oral Tablet 04/05/2023 06/04/2023 ORAL TWICE A DAY 1 TABLET 949020 RxNorm TAKE 1 TABLET ORAL TWICE A DAY QUEtiapine 300MG Oral Tablet 04/05/2023 07/27/2023 ORAL BEDTIME 300 MILLIGRAMS 712786 RxNorm TAKE 300 MILLIGRAMS ORAL BEDTIME predniSONE 10MG Oral Tablet 04/05/2023 06/04/2023 ORAL TWICE A DAY 2 TABLET 864947 RxNorm TAKE 2 TABLET ORAL TWICE A DAY for 3 days then 2 tabs daily x 3 days then 1 tab daily x 3 days Senna Plus 50MG-8.6MG Oral Tablet 04/05/2023 07/27/2023 ORAL TWICE A DAY 2 TABLET 736292 RxNorm TAKE 2 TABLET ORAL TWICE A DAY busPIRone 15MG Oral Tablet 04/05/2023 07/27/2023 ORAL THREE TIMES A DAY 15 MILLIGRAMS 498757 RxNorm TAKE 15 MILLIGRAMS ORAL THREE TIMES A DAY oxygen 04/05/2023 Unknown ORAL continu ous 3 LITERS RxNorm TAKE 3 LITERS ORAL continuous Milk Of Magnesia 400MG/5ML Oral Suspension 06/13/2023 07/27/2023 ORAL NEEDED DAILY 30 mL 637413 RxNorm TAKE 30 mL ORAL NEEDED DAILY predniSONE 20MG Oral Tablet 07/27/2023 10/16/2023 ORAL DAILY 2 TABLET 701293 RxNorm TAKE 2 TABLET ORAL DAILY predniSONE 20MG Oral Tablet 09/15/2023 10/16/2023 ORAL DAILY 2 TABLET 446070 RxNorm TAKE 2 TABLET ORAL DAILY Ibuprofen 200MG Oral Tablet 10/22/2023 Unknown ORAL NEEDED THREE TIMES A DAY 3 TABLET 520187 RxNorm TAKE 3 TABLET ORAL NEEDED THREE TIMES A DAY predniSONE 10MG Oral Tablet 10/22/2023 12/01/2023 ORAL TWICE A DAY 2 TABLET 732110 RxNorm TAKE 2 TABLET ORAL TWICE A DAY x 3 days then 1 tab twice a day x 5 days then 1 tab daily LORazepam 1MG Oral Tablet 10/22/2023 Unknown ORAL NEEDED TWICE DAILY 1 MILLIGRAMS 797778 RxNorm TAKE 1 MILLIGRAMS ORAL NEEDED TWICE DAILY Cefpodoxime Proxetil 200MG Oral Tablet 10/22/2023 11/28/2023 ORAL EVERY 12 HOURS 200 MILLIGRAMS 289714 RxNorm TAKE 200 MILLIGRAMS ORAL EVERY 12 HOURS Anoro Ellipta 62.5MCG-25MC G/1ACT Inhalation Powder 10/22/2023 Unknown INHALA TION DAILY 1 GRAM 1885610 RxNorm 1 GRAM INHALATION DAILY DULoxetine HCl 60MG Oral Capsule, Delayed Release 10/22/2023 Unknown ORAL DAILY 60 MILLIGRAMS 959845 RxNorm TAKE 60 MILLIGRAMS ORAL DAILY Linzess 145MCG Oral Capsule 10/22/2023 10/27/2023 ORAL DAILY 1 unit(s) 1148067 RxNorm TAKE 1 E ACH ORAL DAILY Lisinopril 40MG Oral Tablet 10/22/2023 Unknown ORAL DAILY 40 MILLIGRAMS 299333 RxNorm TAKE 40 MILLIGRAMS ORAL DAILY Methadone 10MG Oral Tablet 10/22/2023 Unknown ORAL DAILY 132 MILLIGRAMS RxNorm TAKE 132 MILLIGRAMS ORAL DAILY Pregabalin 200MG Oral Capsule 10/22/2023 Unknown ORAL THREE TIMES A DAY 200 MILLIGRAMS 230170 RxNorm TAKE 200 MILLIGRAMS ORAL THREE TIMES A DAY QUEtiapine Fumarate 300MG Oral Tablet 10/22/2023 Unknown ORAL BEDTIME 300 MILLIGRAMS 054029 RxNorm TAKE 300 MILLIGRAMS ORAL BEDTIME Testosterone Cypionate 200MG/1ML Intramuscula r Oil 10/22/2023 Unknown 1158353 RxNorm As directed Ventolin HFA 0.09MG/1Actu ation Inhalation Suspension 10/22/2023 Unknown INHALA TION NEEDED EVERY 4 HOURS 2 PUFF 765750 RxNorm 2 PUFF INHALATION NEEDED EVERY 4 HOURS Acetaminophe n 500MG Oral Tablet 10/22/2023 Unknown ORAL THREE TIMES A DAY 2 TABLET 849179 RxNorm TAKE 2 TABLET ORAL THREE TIMES A DAY predniSONE 10MG Oral Tablet 12/01/2023 12/07/2023 ORAL DAILY 4 TABLET 309121 RxNorm TAKE 4 TABLET ORAL DAILY x 3 days then 2 tabs daily x 3 days then 1 tab daily x 7 days Cefpodoxime Proxetil 200MG Oral Tablet 12/01/2023 12/07/2023 ORAL TWICE A DAY 1 TABLET 403878 RxNorm TAKE 1 TABLET ORAL TWICE A DAY levoFLOXacin 750MG Oral Tablet 12/25/2023 Unknown ORAL DAILY 1 TABLET 593716 RxNorm TAKE 1 TABLET ORAL DAILY predniSONE 50MG Oral Tablet 12/25/2023 Unknown ORAL DAILY 1 TABLET 607448 RxNorm TAKE 1 TABLET ORAL DAILY Assessment [...] Date Status Code Code System PNEUMONIA active 100540147 SNOMED-CT POLYSUBSTANCE ABUSE active 307875355 SNOMED-CT ACUTE AND CHRONIC RESPIRATORY FAILURE WITH HYPERCAPNIA active 2951947322640 SNOMED-CT ACUTE AND CHRONIC RESPIRATORY FAILURE WITH HYPOXIA active 09688854 SNOMED-CT COPD WITH EXACERBATION active 9005370 07 SNOMED-CT ALCOHOL USE WITH WITHDRAWAL active 974531862 SNOMED-CT CHRONIC RESPIRATORY FAILURE WITH HYPOXIA 10/03/2021 resolved 27834322 SNOMED- CT OTHER SEIZURES 10/03/2021 resolved 37413915 SNOM ED-CT PULMONARY NODULE 10/03/2021 resolved 810435694 SN OMED-CT CHRONIC HEPATITIS C 10/03/2021 resolved 278426884 SNOMED-CT ANXIETY DISORDER 10/03/2021 resolved 980554476 SN OMED-CT 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 10/03/2021 resolved 248899428457111 SNOME D-CT NICOTINE DEPENDENCE 01/13/2021 resolved 83543264 SNOMED-CT VENOUS INSUFFICIENCY 10/03/2021 resolved 44156012 SNOMED-CT ALCOHOL INTOXICATION 11/26/2022 resolved 65619965 SNOMED-CT AMS 11/26/2022 resolved 486208863 SNOMED-CT HYPOKALEMIA 11/26/2022 resolved 17529059 SNOMED- CT OPIATE TOXICITY 06/04/2023 resolved 286238948 SNO MED-CT ACUTE ALCOHOL INTOXICATION 04/01/2023 resolved 7499066967 SNOMED-CT FEVER 06/04/2023 resolved 440162466 SNOMED-CT ALTERED MENTAL STATUS 06/04/2023 resolved 3912992 04 SNOMED-CT CHRONIC HEADACHE DISORDER 10/03/2021 resolved 315400316 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 266939 00 SNOMED-CT ALCOHOL DEPENDENCE WITH WITHDRAWAL 01/13/2021 resolved 44346603 SNOMED-CT HTN 10/03/2021 resolved 04183368 SNOMED-CT COPD 09/09/2021 resolved 57235167 SNOMED-CT HIGH CHOLESTEROL 09/09/2021 resolved 06028348 SN OMED-CT Allergies and Adverse Reactions Allergy Substance Reaction Severity Start Date Concern Status Code Code System PCN (penicillin) Anaphylaxis (SNOMED-CT: 11402246) Moderate Active 2847240 SNOMED-CT Plan of Treatment X-RAY 03/21/2022 MRI BRAIN W WO CONTRAST 12/06/2021 MRI BRAIN W WO CONTRAST 11/30/2021 LAB DRAW 15MIN 05/13/2021 Encounters Encounter Diagnosis Start Date Code Code Sys tem Canceled operative procedure 11/30/2021 61712591 SNOMED-CT Personal Care Team Section Performer Name Performer Role Active Date Inactive Da te
--- OUTSIDE RECORDS SUMMARY | 2024-02-29 09:07 | XMS_ITS ---
Author Organization Unknown Address [address] [place] [address] [phone] Phone Care Team Providers Care Engineering Officer Name Role Phone MARYJO HERNANDES Registered Nurse Unavailable QUAN Clay Attending Unavailable CLAU [facility] Unavailable RAMIN RACQUEL Nico Primary Unavailable UNLISTED PROVIDER - REQUESTED Xhandoff Un available Immunization Immunization Date Status Additional Notes Code Code System Tdap 10/03/2021 Completed 115 CVX Tdap 01/14/2022 Completed 115 CVX Results COMPREHENSIVE METABOLIC PANE L (CMP) - Collect Date/Time: 12/10/2021 10:20 [facility] ID: [id number] [address] [place] [address], 5661 LOINC: 85707-8 Test Value Unit Reference Range Code Code System Flag GLUCOSE 77 mg/dL L=70 H=116 2345-7 LOINC BUN 7 mg/dL L=6 H=25 3094-0 LOINC CREATININE 0.74 mg/dL L=0.67 H=1.17 2160-0 LOINC SODIUM SERUM 141 mmol/L L=136 H=145 2951-2 LOINC POTASSIUM SERUM 3.8 mmol/L L=3.4 H=5.2 2823-3 LOINC CHLORIDE SERUM 101 mmol/L L=96 H=110 2075-0 LOINC CARBON DIOXIDE (CO2) 37 mmol/L L=22 H=34 2028-9 LOINC H ANION GAP 3.2 mmol/L 45158-0 LOINC CALCIUM SERUM 8.3 mg/dL L=8.2 H=10.2 06630-0 LOINC BILIRUBIN TOTAL 0.3 mg/dL L=0.0 H=1.3 1975-2 LOINC ALK. PHOS. 97 U/L L=46 H=116 6768-6 LOINC SGOT (AST) 14 U/L L=15 H=37 1920-8 LOINC L SGPT (ALT) 21 U/L L=12 H=78 1742-6 LOINC TOTAL PROTEIN 8.3 gm/dL L=6.0 H=8.0 2885-2 LOINC H ALBUMIN 3.6 gm/dL L=3.4 H=5.0 1751-7 LOINC AGE 46 years eGFR (non-Afr.Amer.) 113 mL/min 03159-6 LOINC eGFR (Afr-Central African) > 120 mL/min 38134-2 LOINC CBC W/ DIFFERENTIAL* - Colle ct Date/Time: 12/10/2021 10:20 [facility] ID: [id number] [address] [place] [address], 56 LOINC: 59816-3 Test Value Unit Reference Range Code Code System Flag WBC 7.35 th/cmm L=5.00 H=10.00 6690-2 LOINC NEUT % 61.1 % L=40.0 H=80.0 LYMPH % 23.1 % L=10.0 H=50.0 MONO % 8.6 % L=2.0 H=12.0 37144-6 LOINC EOS % 5.7 % L=0.0 H=8.0 BASO % 1.1 % L=0.0 H=3.0 IG % 0.4 % L=0.0 H=1.1 2514-8 LOINC NRBC % 0.0 % L=0.0 H=0.0 08747-0 LOINC NEUT abs count 4.5 th/cmm L=1.6 H=8.4 751-8 LOINC LYMPH abs count 1.7 th/cmm L=1.5 H=4.0 731-0 LOINC MONO abs count 0.6 th/cmm L=0.2 H=1.0 742-7 LOINC EOS abs count 0.4 th/cmm L=0.0 H=0.5 711-2 LOINC BASO abs count 0.1 th/cmm L=0.0 H=0.2 704-7 LOINC IG abs count 0.0 th/cmm L=0.0 H=0.1 55076-4 LOINC NRBC abs count 0.0 mil/cmm L=0.0 H=0.0 45679-3 LOINC RBC 5.84 mil/cmm L=4.30 H=6.20 789-8 LOINC HEMOGLOBIN 17.3 gm/dL L=13.0 H=17.0 718-7 LOINC H HEMATOCRIT 56 % L=45 H=52 4544-3 LOINC H MCV 95 fL L=82 H=92 787-2 LOINC H MCH 29.6 pg L=27.0 H=31.0 785-6 LOINC MCHC 31.2 % L=32.0 H=36.0 786-4 LOINC L RDW-SD 58.6 fL L=39.0 H=49.0 788-0 LOINC H PLATELET COUNT 268 th/cmm L=150 H=450 777-3 LOINC Social History Type Status Start Date End Date Code Code Syst em Smoking History Current every day smoker 697900338 SNOMED CT Smoking History Light tobacco smoker [id number] Smoking History Smoker, current status unknown [id number] SNOMED CT Sex Male Vital Signs Vital Sign Value Unit [place] Value [place] Unit Date/Time Recent/Initial? Code Code System Body Mass Index 28.06 kg/m2 12/10/2021 09:56 Initial 01502 -5 [facility] Systolic Blood Pressure 158 mm[Hg] 12/10/2021 09:56 Initial 8480- 6 [facility] Diastolic Blood Pressure 99 mm[Hg] 12/10/2021 09:56 Initial 8462- 4 [facility] Body Surface Area 2.05 m2 12/10/2021 09:56 Initial 3140- 1 [facility] Height 175.260 0 cm 69.00 in 12/10/2021 09:56 Initial 8302- 2 [facility] O2 Saturation 96 % 2021 10:30 Most Recent 54052 -5 [facility] O2 Saturation 94 % 2021 09:56 Initial 05928 -5 [facility] Inhaled Oxygen Flow Rate 2.00 L/min 12/10/2021 10:30 Most Recent 3151- 8 [facility] Inhaled Oxygen Flow Rate 4.00 L/min 12/10/2021 09:56 Initial 3151- 8 [facility] Pulse 85.0 /min 12/10/2021 09:56 Initial 8867- 4 [facility] Respiration 16 /min 12/11/19 09:56 Initial 9279- 1 [facility] Temperature 36.5 [place] 97.7 F 12/11/19 09:56 Initial 8310- 5 [facility] Weight 86.18 kg 190.00 lbs 12/10/2021 09:56 Initial 24195 -7 [facility] Medications Medication Start Date End Date Route Frequency Dose Code Code System Medication Instructions Home Meds Lisinopril 20MG Oral Tablet 04/01/2019 12/01/2022 ORAL DAILY 20 MILLIGRAMS 374371 RxNorm TAKE 20 MILLIGRAMS ORAL DAILY ProAir HFA 0.09MG/1Actu ation Inhalation Suspension 04/01/2019 05/12/2022 INHALA TION NEEDED FOUR TIMES A DAY 2 unit(s) 876318 RxNorm 2 EACH INHALATION NEEDED FOUR TIMES A DAY Pregabalin 200MG Oral Capsule 04/01/2019 07/27/2023 ORAL THREE TIMES A DAY 200 MILLIGRAMS 107492 RxNorm TAKE 200 MILLIGRAMS ORAL THREE TIMES A DAY DULoxetine HCl 60MG Oral Capsule, Delayed Release 10/22/2019 07/27/2023 ORAL DAILY 60 MILLIGRAMS 245701 RxNorm TAKE 60 MILLIGRAMS ORAL DAILY QUEtiapine Fumarate 300MG Oral Tablet 10/22/2019 05/12/2022 ORAL BEDTIME 300 MILLIGRAMS 997792 RxNorm TAKE 300 MILLIGRAMS ORAL BEDTIME Nicoderm CQ 14MG/24HR Transdermal Patch, Extended Release 01/15/2021 02/12/2022 TRANSD ERMAL DAILY 1 unit(s) RxNorm APPLY 1 EACH TRANSDERMAL DAILY Ibuprofen 200MG Oral Tablet 01/15/2021 11/25/2022 ORAL NEEDED THREE TIMES A DAY 600 MILLIGRAMS 900142 RxNorm TAKE 600 MILLIGRAMS ORAL NEEDED THREE TIMES A DAY LORazepam 0.5MG Oral Tablet 01/15/2021 05/12/2022 ORAL NEEDED TWICE DAILY 0.5 MILLIGRAMS 472097 RxNorm TAKE 0.5 MILLIGRAMS ORAL NEEDED TWICE DAILY Anoro Ellipta 62.5MCG-25MC G/1ACT Inhalation Powder 10/05/2021 07/27/2023 INHALA TION TWICE A DAY 1 PUFF 2838225 RxNorm 1 PUFF INHALATION TWICE A DAY Albuterol Sulfate 0.083% Inhalation Solution 10/05/2021 11/25/2022 INHALA TION NEEDED EVERY 4 HOURS 1 unit(s) 239932 RxNorm 1 EACH INHALATION NEEDED EVERY 4 HOURS Methadone HCl 40MG Oral Tablet for Suspension 10/05/2021 07/27/2023 ORAL DAILY 132 MILLIGRAMS 458715 RxNorm TAKE 132 MILLIGRAMS ORAL DAILY Doxycycline 100MG Oral Capsule 12/10/2021 12/21/2021 ORAL TWICE A DAY 1 CAPSULE 0705248 RxNorm TAKE 1 CAPSULE ORAL TWICE A DAY Zonisamide 100MG Oral Capsule 12/22/2021 05/12/2022 ORAL TWICE A DAY 100 MILLIGRAMS 867813 RxNorm TAKE 100 MILLIGRAMS ORAL TWICE A DAY Keflex 500MG Oral Capsule 01/14/2022 02/12/2022 ORAL THREE TIMES A DAY 1 CAPSULE 918708 RxNorm TAKE 1 CAPSULE ORAL THREE TIMES A DAY predniSONE 10MG Oral Tablet 02/16/2022 11/25/2022 ORAL THREE TIMES A DAY WITH FOOD 10 MILLIGRAMS 319414 RxNorm TAKE 10 MILLIGRAMS ORAL THREE TIMES A DAY WITH FOOD SEROquel 300MG Oral Tablet 02/16/2022 12/22/2022 ORAL BEDTIME 300 MILLIGRAMS 859925 RxNorm TAKE 300 MILLIGRAMS ORAL BEDTIME Cephalexin 500MG Oral Capsule 02/16/2022 02/16/2022 ORAL THREE TIMES A DAY 1 CAPSULE 159839 RxNorm TAKE 1 CAPSULE ORAL THREE TIMES A DAY Cephalexin 500MG Oral Capsule 02/16/2022 05/12/2022 ORAL THREE TIMES A DAY 1 CAPSULE 106693 RxNorm TAKE 1 CAPSULE ORAL THREE TIMES A DAY MiraLAX 17GM/1Dose Oral Powder for Solution 05/12/2022 11/25/2022 ORAL DAILY 17 GRAM 822646 RxNorm TAKE 17 GRAM ORAL DAILY Ventolin HFA 0.09MG/1Actu ation Inhalation Suspension 12/01/2022 07/27/2023 INHALA TION 1 unit(s) 258778 RxNorm 1 EACH INHALATION Cefpodoxime Proxetil 200MG Oral Tablet 12/01/2022 12/22/2022 ORAL EVERY 12 HOURS 200 MILLIGRAMS 744241 RxNorm TAKE 200 MILLIGRAMS ORAL EVERY 12 HOURS Ibuprofen 600MG Oral Tablet 12/01/2022 07/27/2023 ORAL NEEDED THREE TIMES A DAY 600 MILLIGRAMS 107470 RxNorm TAKE 600 MILLIGRAMS ORAL NEEDED THREE TIMES A DAY FOR PAIN Combivent Respimat 100MCG-20MCG /1Act Inhalation [place] 12/01/2022 07/27/2023 INHALA TION NEEDED EVERY 8 HOURS 1 unit(s) 1965253 RxNorm 1 EACH INHALATION NEEDED EVERY 8 HOURS Depo-Testost erone Novaplus 200MG/1ML Intramuscula r Oil 12/01/2022 07/27/2023 INTRAM USCULA R 1 unit(s) 933273 RxNorm INJECT 1 EACH INTRAMUSCULA R Flovent 0.22MG/1Actu ation Inhalation Aerosol Powder 12/01/2022 07/27/2023 INHALA TION TWICE A DAY 1 unit(s) 500206 RxNorm 1 EACH INHALATION TWICE A DAY Zonisamide 100MG Oral Capsule 12/01/2022 07/27/2023 ORAL DAILY 200 MILLIGRAMS 148634 RxNorm TAKE 200 MILLIGRAMS ORAL DAILY guaiFENesin 600MG Oral Tablet, Extended Release 12/01/2022 12/01/2022 ORAL NEEDED TWICE DAILY 1 TABLET 166867 RxNorm TAKE 1 TABLET ORAL NEEDED TWICE DAILY FOR COUGH predniSONE 10MG Oral Tablet 12/01/2022 12/01/2022 ORAL DAILY 2 TABLET 612298 RxNorm TAKE 2 TABLET ORAL DAILY X 5 DAYS THEN 1 TAB DAILY X 5 DAYS THEN STOP guaiFENesin 600MG Oral Tablet, Extended Release 12/01/2022 07/27/2023 ORAL NEEDED TWICE DAILY 1 TABLET 734120 RxNorm TAKE 1 TABLET ORAL NEEDED TWICE DAILY FOR COUGH predniSONE 10MG Oral Tablet 12/01/2022 12/22/2022 ORAL DAILY 2 TABLET 958628 RxNorm TAKE 2 TABLET ORAL DAILY X 5 DAYS THEN 1 TAB DAILY X 5 DAYS THEN STOP Acetaminophe n 500MG Oral Tablet 12/01/2022 07/27/2023 ORAL NEEDED THREE TIMES A DAY 2 TABLET 499029 RxNorm TAKE 2 TABLET ORAL NEEDED THREE TIMES A DAY FOR PAIN Lisinopril 40MG Oral Tablet 12/01/2022 07/27/2023 ORAL DAILY 1 TABLET 361968 RxNorm TAKE 1 TABLET ORAL DAILY predniSONE 20MG Oral Tablet 12/22/2022 04/02/2023 ORAL DAILY 1 TABLET 808257 RxNorm TAKE 3 TABLETS DAILY FOR 3 DAYS, THEN 2 TABLETS DAILY FOR 3 DAYS, THEN 1 TABLET DAILY FOR 3 DAYS Narcan 4MG/0.1ML Nasal [place] 12/30/2022 07/27/2023 NASAL NEEDED 1 SPRAY 8427565 RxNorm SPRAY 1 SPRAY NASAL NEEDED FOR OPIATE OVERDOSE Albuterol Sulfate 0.09MG/1Actu ation Inhalation Suspension 12/30/2022 07/27/2023 INHALA TION NEEDED EVERY 4 HOURS 2 PUFF 2836127 RxNorm 2 PUFF INHALATION NEEDED EVERY 4 HOURS FOR Shortness of breath Cefpodoxime Proxetil 200MG Oral Tablet 04/05/2023 06/04/2023 ORAL TWICE A DAY 1 TABLET 643342 RxNorm TAKE 1 TABLET ORAL TWICE A DAY QUEtiapine 300MG Oral Tablet 04/05/2023 07/27/2023 ORAL BEDTIME 300 MILLIGRAMS 816462 RxNorm TAKE 300 MILLIGRAMS ORAL BEDTIME predniSONE 10MG Oral Tablet 04/05/2023 06/04/2023 ORAL TWICE A DAY 2 TABLET 241421 RxNorm TAKE 2 TABLET ORAL TWICE A DAY for 3 days then 2 tabs daily x 3 days then 1 tab daily x 3 days Senna Plus 50MG-8.6MG Oral Tablet 04/05/2023 07/27/2023 ORAL TWICE A DAY 2 TABLET 019389 RxNorm TAKE 2 TABLET ORAL TWICE A DAY busPIRone 15MG Oral Tablet 04/05/2023 07/27/2023 ORAL THREE TIMES A DAY 15 MILLIGRAMS 858761 RxNorm TAKE 15 MILLIGRAMS ORAL THREE TIMES A DAY oxygen 04/05/2023 Unknown ORAL continu ous 3 LITERS RxNorm TAKE 3 LITERS ORAL continuous Milk Of Magnesia 400MG/5ML Oral Suspension 06/13/2023 07/27/2023 ORAL NEEDED DAILY 30 mL 775976 RxNorm TAKE 30 mL ORAL NEEDED DAILY predniSONE 20MG Oral Tablet 07/27/2023 10/16/2023 ORAL DAILY 2 TABLET 778577 RxNorm TAKE 2 TABLET ORAL DAILY predniSONE 20MG Oral Tablet 09/15/2023 10/16/2023 ORAL DAILY 2 TABLET 939026 RxNorm TAKE 2 TABLET ORAL DAILY Ibuprofen 200MG Oral Tablet 10/22/2023 Unknown ORAL NEEDED THREE TIMES A DAY 3 TABLET 039304 RxNorm TAKE 3 TABLET ORAL NEEDED THREE TIMES A DAY predniSONE 10MG Oral Tablet 10/22/2023 12/01/2023 ORAL TWICE A DAY 2 TABLET 050832 RxNorm TAKE 2 TABLET ORAL TWICE A DAY x 3 days then 1 tab twice a day x 5 days then 1 tab daily LORazepam 1MG Oral Tablet 10/22/2023 Unknown ORAL NEEDED TWICE DAILY 1 MILLIGRAMS 559657 RxNorm TAKE 1 MILLIGRAMS ORAL NEEDED TWICE DAILY Cefpodoxime Proxetil 200MG Oral Tablet 10/22/2023 11/28/2023 ORAL EVERY 12 HOURS 200 MILLIGRAMS 854378 RxNorm TAKE 200 MILLIGRAMS ORAL EVERY 12 HOURS Anoro Ellipta 62.5MCG-25MC G/1ACT Inhalation Powder 10/22/2023 Unknown INHALA TION DAILY 1 GRAM 7860729 RxNorm 1 GRAM INHALATION DAILY DULoxetine HCl 60MG Oral Capsule, Delayed Release 10/22/2023 Unknown ORAL DAILY 60 MILLIGRAMS 147107 RxNorm TAKE 60 MILLIGRAMS ORAL DAILY Linzess 145MCG Oral Capsule 10/22/2023 10/27/2023 ORAL DAILY 1 unit(s) 5645332 RxNorm TAKE 1 E ACH ORAL DAILY Lisinopril 40MG Oral Tablet 10/22/2023 Unknown ORAL DAILY 40 MILLIGRAMS 058802 RxNorm TAKE 40 MILLIGRAMS ORAL DAILY Methadone 10MG Oral Tablet 10/22/2023 Unknown ORAL DAILY 132 MILLIGRAMS RxNorm TAKE 132 MILLIGRAMS ORAL DAILY Pregabalin 200MG Oral Capsule 10/22/2023 Unknown ORAL THREE TIMES A DAY 200 MILLIGRAMS 557801 RxNorm TAKE 200 MILLIGRAMS ORAL THREE TIMES A DAY QUEtiapine Fumarate 300MG Oral Tablet 10/22/2023 Unknown ORAL BEDTIME 300 MILLIGRAMS 698605 RxNorm TAKE 300 MILLIGRAMS ORAL BEDTIME Testosterone Cypionate 200MG/1ML Intramuscula r Oil 10/22/2023 Unknown 6363188 RxNorm As directed Ventolin HFA 0.09MG/1Actu ation Inhalation Suspension 10/22/2023 Unknown INHALA TION NEEDED EVERY 4 HOURS 2 PUFF 072798 RxNorm 2 PUFF INHALATION NEEDED EVERY 4 HOURS Acetaminophe n 500MG Oral Tablet 10/22/2023 Unknown ORAL THREE TIMES A DAY 2 TABLET 069031 RxNorm TAKE 2 TABLET ORAL THREE TIMES A DAY predniSONE 10MG Oral Tablet 12/01/2023 12/07/2023 ORAL DAILY 4 TABLET 029497 RxNorm TAKE 4 TABLET ORAL DAILY x 3 days then 2 tabs daily x 3 days then 1 tab daily x 7 days Cefpodoxime Proxetil 200MG Oral Tablet 12/01/2023 12/07/2023 ORAL TWICE A DAY 1 TABLET 131049 RxNorm TAKE 1 TABLET ORAL TWICE A DAY levoFLOXacin 750MG Oral Tablet 12/25/2023 Unknown ORAL DAILY 1 TABLET 239507 RxNorm TAKE 1 TABLET ORAL DAILY predniSONE 50MG Oral Tablet 12/25/2023 Unknown ORAL DAILY 1 TABLET 689508 RxNorm TAKE 1 TABLET ORAL DAILY Assessment [...] Date Status Code Code System PNEUMONIA active [id number] SNOMED-CT POLYSUBSTANCE ABUSE active 431944979 SNOMED-CT ACUTE AND CHRONIC RESPIRATORY FAILURE WITH HYPERCAPNIA active 4048128993936 SNOMED-CT ACUTE AND CHRONIC RESPIRATORY FAILURE WITH HYPOXIA active 28977148 SNOMED-CT COPD WITH EXACERBATION active 0555127 07 SNOMED-CT ALCOHOL USE WITH WITHDRAWAL active 405357812 SNOMED-CT CHRONIC RESPIRATORY FAILURE WITH HYPOXIA 10/03/2021 resolved 26626359 SNOMED- CT OTHER SEIZURES 10/03/2021 resolved 69636940 SNOM ED-CT PULMONARY NODULE 10/03/2021 resolved 724633182 SN OMED-CT CHRONIC HEPATITIS C 10/03/2021 resolved 042825900 SNOMED-CT ANXIETY DISORDER 10/03/2021 resolved 477931663 SN OMED-CT 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 10/03/2021 resolved [id number] SNOME D-CT NICOTINE DEPENDENCE 01/13/2021 resolved 54705212 SNOMED-CT VENOUS INSUFFICIENCY 10/03/2021 resolved 62535385 SNOMED-CT ALCOHOL INTOXICATION 11/26/2022 resolved 61990723 SNOMED-CT AMS 11/26/2022 resolved 437620626 SNOMED-CT HYPOKALEMIA 11/26/2022 resolved 45767543 SNOMED- CT OPIATE TOXICITY 06/04/2023 resolved 054179769 SNO MED-CT ACUTE ALCOHOL INTOXICATION 04/01/2023 resolved 1537680919 SNOMED-CT FEVER 06/04/2023 resolved 588762130 SNOMED-CT ALTERED MENTAL STATUS 06/04/2023 resolved 7807992 04 SNOMED-CT CHRONIC HEADACHE DISORDER 10/03/2021 resolved 865340149 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 932376 00 SNOMED-CT ALCOHOL DEPENDENCE WITH WITHDRAWAL 01/13/2021 resolved 67073225 SNOMED-CT HTN 10/03/2021 resolved 99423536 SNOMED-CT COPD 09/09/2021 resolved 41223478 SNOMED-CT HIGH CHOLESTEROL 09/09/2021 resolved 88315357 SN OMED-CT Allergies and Adverse Reactions Allergy Substance Reaction Severity Start Date Concern Status Code Code System PCN (penicillin) Anaphylaxis (SNOMED-CT: [id number]) Moderate Active 9742736 SNOMED-CT Plan of Treatment X-RAY 03/21/2022 MRI BRAIN W WO CONTRAST 12/06/2021 MRI BRAIN W WO CONTRAST 11/30/2021 LAB DRAW 15MIN 05/13/2021 Encounters Encounter Diagnosis Start Date Code Code Sys tem Pain in left lower leg 12/10/2021 SNOME D-CT Personal Care Team Section Performer Name Performer Role Active Date Inactive Da te
--- OUTSIDE RECORDS SUMMARY | 2024-02-29 09:07 | XMS_ITS ---
Author Organization Unknown Address [address] [place] [address] [phone] Phone Care Team Providers Care Fiscal Technician Name Role Phone QUAN Clay Attending Unavailable Immunization Immunization Date Status Additional Notes Code Code System Tdap 10/03/2021 Completed 115 CVX Tdap 01/14/2022 Completed 115 CVX Social History Type Status Start Date End Date Code Code Syst em Smoking History Current every day smoker [id number] SNOMED CT Smoking History Light tobacco smoker [id number] Smoking History Smoker, current status unknown [id number] SNOMED CT Sex Male Medications Medication Start Date End Date Route Frequency Dose Code Code System Medication Instructions Home Meds Mapap 325MG Oral Tablet 03/07/2018 10/03/2021 BY MOUTH NEEDED EVERY 4 HOURS 650 MILLIGRAMS 968609 RxNorm TAKE 650 MILLIGRAMS BY MOUTH NEEDED EVERY 4 HOURS Lisinopri l 20MG Oral Tablet 04/01/2019 12/01/2022 ORAL DAILY 20 MILLIGRAMS 875992 RxNorm TAKE 20 MILLIGRAMS ORAL DAILY Ipratropi um [place]-A lbuterol Sulfate 0.5MG/3ML -3MG/3ML Inhalatio n Solution 04/01/2019 10/03/2021 INHALATI ON FOUR TIMES A DAY 1 unit(s) 8470083 RxNorm 1 EACH INHALATION FOUR TIMES A DAY ProAir HFA 0.09MG/1A ctuation Inhalatio n Suspensio n 04/01/2019 05/12/2022 INHALATI ON NEEDED FOUR TIMES A DAY 2 unit(s) 211014 RxNorm 2 EACH INHALATION NEEDED FOUR TIMES A DAY Pregabali n 200MG Oral Capsule 04/01/2019 07/27/2023 ORAL THREE TIMES A DAY 200 MILLIGRAMS 638448 RxNorm TAKE 200 MILLIGRAMS ORAL THREE TIMES A DAY QUEtiapin e Fumarate 300MG Oral Tablet 10/22/2019 05/12/2022 ORAL BEDTIME 300 MILLIGRAMS 357626 RxNorm TAKE 300 MILLIGRAMS ORAL BEDTIME DULoxetin e HCl 60MG Oral Capsule, Delayed Release 10/22/2019 07/27/2023 ORAL DAILY 60 MILLIGRAMS 764917 RxNorm TAKE 60 MILLIGRAMS ORAL DAILY Nicoderm CQ 14MG/24HR Transderm al Patch, Extended Release 01/15/2021 02/12/2022 TRANSDER MAL DAILY 1 unit(s) RxNorm APPLY 1 EACH TRANSDERMAL DAILY Cefpodoxi me Proxetil 200MG Oral Tablet 01/15/2021 10/03/2021 ORAL TWICE A DAY 1 TABLET 877980 RxNorm TAKE 1 TABLET ORAL TWICE A DAY Cefpodoxi me Proxetil 200MG Oral Tablet 01/15/2021 10/03/2021 ORAL TWICE A DAY 1 TABLET 645319 RxNorm TAKE 1 TABLET ORAL TWICE A DAY predniSON E 10MG Oral Tablet 01/15/2021 10/03/2021 ORAL DAILY 2 TABLET 982519 RxNorm TAKE 2 TABLET ORAL DAILY x 7 days then 1 tab daily x 7 days then stop Azithromy jennifer 250MG Oral Tablet 01/15/2021 10/03/2021 ORAL DAILY 250 MILLIGRAMS 605442 RxNorm TAKE 250 MILLIGRAMS ORAL DAILY Anoro Ellipta 62.5MCG-2 5MCG/1ACT Inhalatio n Powder 01/15/2021 10/03/2021 INHALATI ON 1 unit(s) 3780258 RxNorm 1 EACH INHALATION Flovent 0.22MG/Ac tuation Inhalatio n Aerosol Powder 01/15/2021 10/03/2021 INHALATI ON TWICE A DAY 2 PUFF 823119 RxNorm 2 PUFF INHALATION TWICE A DAY Ibuprofen 200MG Oral Tablet 01/15/2021 11/25/2022 ORAL NEEDED THREE TIMES A DAY 600 MILLIGRAMS 512612 RxNorm TAKE 600 MILLIGRAMS ORAL NEEDED THREE TIMES A DAY LORazepam 0.5MG Oral Tablet 01/15/2021 05/12/2022 ORAL NEEDED TWICE DAILY 0.5 MILLIGRAMS 673366 RxNorm TAKE 0.5 MILLIGRAMS ORAL NEEDED TWICE DAILY Methadone HCl 10MG/1ML Oral Solution 01/15/2021 10/03/2021 ORAL DAILY 13.2 mL 043331 RxNorm TAKE 13.2 mL ORAL DAILY predniSON E 20MG Oral Tablet 10/05/2021 11/14/2021 ORAL DAILY WITH FOOD 20 MILLIGRAMS 435210 RxNorm TAKE 20 MILLIGRAMS ORAL DAILY WITH FOOD Albuterol Sulfate 0.083% Inhalatio n Solution 10/05/2021 11/25/2022 INHALATI ON NEEDED EVERY 4 HOURS 1 unit(s) 538789 RxNorm 1 EACH INHALATION NEEDED EVERY 4 HOURS Anoro Ellipta 62.5MCG-2 5MCG/1ACT Inhalatio n Powder 10/05/2021 07/27/2023 INHALATI ON TWICE A DAY 1 PUFF 9246941 RxNorm 1 PUFF INHALATION TWICE A DAY Methadone HCl 40MG Oral Tablet for Suspensio n 10/05/2021 07/27/2023 ORAL DAILY 132 MILLIGRAMS 934209 RxNorm TAKE 132 MILLIGRAMS ORAL DAILY Cephalexi n 500MG Oral Capsule 10/05/2021 11/14/2021 ORAL THREE TIMES A DAY 1 CAPSULE 083177 RxNorm TAKE 1 CAPSULE ORAL THREE TIMES A DAY Doxycycli ne 100MG Oral Capsule 12/10/2021 12/21/2021 ORAL TWICE A DAY 1 CAPSULE 2621207 RxNorm TAKE 1 CAPSULE ORAL TWICE A DAY Zonisamid e 100MG Oral Capsule 12/22/2021 05/12/2022 ORAL TWICE A DAY 100 MILLIGRAMS 117109 RxNorm TAKE 100 MILLIGRAMS ORAL TWICE A DAY Keflex 500MG Oral Capsule 01/14/2022 02/12/2022 ORAL THREE TIMES A DAY 1 CAPSULE 487949 RxNorm TAKE 1 CAPSULE ORAL THREE TIMES A DAY predniSON E 10MG Oral Tablet 02/16/2022 11/25/2022 ORAL THREE TIMES A DAY WITH FOOD 10 MILLIGRAMS 100253 RxNorm TAKE 10 MILLIGRAMS ORAL THREE TIMES A DAY WITH FOOD SEROquel 300MG Oral Tablet 02/16/2022 12/22/2022 ORAL BEDTIME 300 MILLIGRAMS 045249 RxNorm TAKE 300 MILLIGRAMS ORAL BEDTIME Cephalexi n 500MG Oral Capsule 02/16/2022 02/16/2022 ORAL THREE TIMES A DAY 1 CAPSULE 032294 RxNorm TAKE 1 CAPSULE ORAL THREE TIMES A DAY Cephalexi n 500MG Oral Capsule 02/16/2022 05/12/2022 ORAL THREE TIMES A DAY 1 CAPSULE 695379 RxNorm TAKE 1 CAPSULE ORAL THREE TIMES A DAY MiraLAX 17GM/1Dos e Oral Powder for Solution 05/12/2022 11/25/2022 ORAL DAILY 17 GRAM 043157 RxNorm TAKE 17 G PAT ORAL DAILY Zonisamid e 100MG Oral Capsule 12/01/2022 07/27/2023 ORAL DAILY 200 MILLIGRAMS 550346 RxNorm TAKE 200 MILLIGRAMS ORAL DAILY Cefpodoxi me Proxetil 200MG Oral Tablet 12/01/2022 12/22/2022 ORAL EVERY 12 HOURS 200 MILLIGRAMS 474563 RxNorm TAKE 200 MILLIGRAMS ORAL EVERY 12 HOURS Ibuprofen 600MG Oral Tablet 12/01/2022 07/27/2023 ORAL NEEDED THREE TIMES A DAY 600 MILLIGRAMS 992879 RxNorm TAKE 600 MILLIGRAMS ORAL NEEDED THREE TIMES A DAY FOR PAIN Combivent Respimat 100MCG-20 MCG/1Act Inhalatio n [place] 12/01/2022 07/27/2023 INHALATI ON NEEDED EVERY 8 HOURS 1 unit(s) 2361130 RxNorm 1 EACH INHALATION NEEDED EVERY 8 HOURS Depo-Test osterone Novaplus 200MG/1ML Intramusc ular Oil 12/01/2022 07/27/2023 INTRAMUS CULAR 1 unit(s) 382140 RxNorm INJECT 1 EACH INTRAMUSCULA R Flovent 0.22MG/1A ctuation Inhalatio n Aerosol Powder 12/01/2022 07/27/2023 INHALATI ON TWICE A DAY 1 unit(s) 039742 RxNorm 1 EACH INHALATION TWICE A DAY Ventolin HFA 0.09MG/1A ctuation Inhalatio n Suspensio n 12/01/2022 07/27/2023 INHALATI ON 1 unit(s) 264235 RxNorm 1 EACH INHALATION guaiFENes in 600MG Oral Tablet, Extended Release 12/01/2022 12/01/2022 ORAL NEEDED TWICE DAILY 1 TABLET 906285 RxNorm TAKE 1 TABLET ORAL NEEDED TWICE DAILY FOR COUGH predniSON E 10MG Oral Tablet 12/01/2022 12/01/2022 ORAL DAILY 2 TABLET 160201 RxNorm TAKE 2 TABLET ORAL DAILY X 5 DAYS THEN 1 TAB DAILY X 5 DAYS THEN STOP guaiFENes in 600MG Oral Tablet, Extended Release 12/01/2022 07/27/2023 ORAL NEEDED TWICE DAILY 1 TABLET 385507 RxNorm TAKE 1 TABLET ORAL NEEDED TWICE DAILY FOR COUGH predniSON E 10MG Oral Tablet 12/01/2022 12/22/2022 ORAL DAILY 2 TABLET 605957 RxNorm TAKE 2 TABLET ORAL DAILY X 5 DAYS THEN 1 TAB DAILY X 5 DAYS THEN STOP Acetamino phen 500MG Oral Tablet 12/01/2022 07/27/2023 ORAL NEEDED THREE TIMES A DAY 2 TABLET 476724 RxNorm TAKE 2 TABLET ORAL NEEDED THREE TIMES A DAY FOR PAIN Lisinopri l 40MG Oral Tablet 12/01/2022 07/27/2023 ORAL DAILY 1 TABLET 563900 RxNorm TAKE 1 TABLET ORAL DAILY predniSON E 20MG Oral Tablet 12/22/2022 04/02/2023 ORAL DAILY 1 TABLET 573552 RxNorm TAKE 3 TABLETS DAILY FOR 3 DAYS, THEN 2 TABLETS DAILY FOR 3 DAYS, THEN 1 TABLET DAILY FOR 3 DAYS Narcan 4MG/0.1ML Nasal [place] 12/30/2022 07/27/2023 NASAL NEEDED 1 SPRAY 5467263 RxNorm SPRAY 1 SPRAY NASAL NEEDED FOR OPIATE OVERDOSE Albuterol Sulfate 0.09MG/1A ctuation Inhalatio n Suspensio n 12/30/2022 07/27/2023 INHALATI ON NEEDED EVERY 4 HOURS 2 PUFF 8311492 RxNorm 2 PUFF INHALATION NEEDED EVERY 4 HOURS FOR Shortness of breath Cefpodoxi me Proxetil 200MG Oral Tablet 04/05/2023 06/04/2023 ORAL TWICE A DAY 1 TABLET 987582 RxNorm TAKE 1 TABLET ORAL TWICE A DAY QUEtiapin e 300MG Oral Tablet 04/05/2023 07/27/2023 ORAL BEDTIME 300 MILLIGRAMS 089377 RxNorm TAKE 300 MILLIGRAMS ORAL BEDTIME predniSON E 10MG Oral Tablet 04/05/2023 06/04/2023 ORAL TWICE A DAY 2 TABLET 270615 RxNorm TAKE 2 TABLET ORAL TWICE A DAY for 3 days then 2 tabs daily x 3 days then 1 tab daily x 3 days Senna Plus 50MG-8.6M G Oral Tablet 04/05/2023 07/27/2023 ORAL TWICE A DAY 2 TABLET 456812 RxNorm TAKE 2 TABLET ORAL TWICE A DAY busPIRone 15MG Oral Tablet 04/05/2023 07/27/2023 ORAL THREE TIMES A DAY 15 MILLIGRAMS 487548 RxNorm TAKE 15 MILLIGRAMS ORAL THREE TIMES A DAY oxygen 04/05/2023 Unknown ORAL continuo us 3 LITERS RxNorm TAKE 3 LITERS ORAL continuous Milk Of Magnesia 400MG/5ML Oral Suspensio n 06/13/2023 07/27/2023 ORAL NEEDED DAILY 30 mL 990316 RxNorm TAKE 30 mL ORAL NEEDED DAILY predniSON E 20MG Oral Tablet 07/27/2023 10/16/2023 ORAL DAILY 2 TABLET 418279 RxNorm TAKE 2 TABLET ORAL DAILY predniSON E 20MG Oral Tablet 09/15/2023 10/16/2023 ORAL DAILY 2 TABLET 598047 RxNorm TAKE 2 TABLET ORAL DAILY Ibuprofen 200MG Oral Tablet 10/22/2023 Unknown ORAL NEEDED THREE TIMES A DAY 3 TABLET 944239 RxNorm TAKE 3 TABLET ORAL NEEDED THREE TIMES A DAY predniSON E 10MG Oral Tablet 10/22/2023 12/01/2023 ORAL TWICE A DAY 2 TABLET 134358 RxNorm TAKE 2 TABLET ORAL TWICE A DAY x 3 days then 1 tab twice a day x 5 days then 1 tab daily LORazepam 1MG Oral Tablet 10/22/2023 Unknown ORAL NEEDED TWICE DAILY 1 MILLIGRAMS 667184 RxNorm TAKE 1 MILLIGRAMS ORAL NEEDED TWICE DAILY Cefpodoxi me Proxetil 200MG Oral Tablet 10/22/2023 11/28/2023 ORAL EVERY 12 HOURS 200 MILLIGRAMS 574821 RxNorm TAKE 200 MILLIGRAMS ORAL EVERY 12 HOURS Anoro Ellipta 62.5MCG-2 5MCG/1ACT Inhalatio n Powder 10/22/2023 Unknown INHALATI ON DAILY 1 GRAM 6854615 RxNorm 1 GRAM INHALATION DAILY DULoxetin e HCl 60MG Oral Capsule, Delayed Release 10/22/2023 Unknown ORAL DAILY 60 MILLIGRAMS 766206 RxNorm TAKE 60 MILLIGRAMS ORAL DAILY Linzess 145MCG Oral Capsule 10/22/2023 10/27/2023 ORAL DAILY 1 unit(s) 7290986 RxNorm TAKE 1 E ACH ORAL DAILY Lisinopri l 40MG Oral Tablet 10/22/2023 Unknown ORAL DAILY 40 MILLIGRAMS 19771202 RxNorm TAKE 40 MILLIGRAMS ORAL DAILY Methadone 10MG Oral Tablet 10/22/2023 Unknown ORAL DAILY 132 MILLIGRAMS RxNorm TAKE 132 MILLIGRAMS ORAL DAILY Pregabali n 200MG Oral Capsule 10/22/2023 Unknown ORAL THREE TIMES A DAY 200 MILLIGRAMS 918925 RxNorm TAKE 200 MILLIGRAMS ORAL THREE TIMES A DAY QUEtiapin e Fumarate 300MG Oral Tablet 10/22/2023 Unknown ORAL BEDTIME 300 MILLIGRAMS 375295 RxNorm TAKE 300 MILLIGRAMS ORAL BEDTIME Testoster one Cypionate 200MG/1ML Intramusc ular Oil 10/22/2023 Unknown 1643335 RxNorm As directed Ventolin HFA 0.09MG/1A ctuation Inhalatio n Suspensio n 10/22/2023 Unknown INHALATI ON NEEDED EVERY 4 HOURS 2 PUFF 263164 RxNorm 2 PUFF INHALATION NEEDED EVERY 4 HOURS Acetamino phen 500MG Oral Tablet 10/22/2023 Unknown ORAL THREE TIMES A DAY 2 TABLET RxNorm TAKE 2 TABLET ORAL THREE TIMES A DAY predniSON E 10MG Oral Tablet 12/01/2023 12/07/2023 ORAL DAILY 4 TABLET 072210 RxNorm TAKE 4 TABLET ORAL DAILY x 3 days then 2 tabs daily x 3 days then 1 tab daily x 7 days Cefpodoxi me Proxetil 200MG Oral Tablet 12/01/2023 12/07/2023 ORAL TWICE A DAY 1 TABLET 022726 RxNorm TAKE 1 TABLET ORAL TWICE A DAY levoFLOXa jennifer 750MG Oral Tablet 12/25/2023 Unknown ORAL DAILY 1 TABLET 587293 RxNorm TAKE 1 TABLET ORAL DAILY predniSON E 50MG Oral Tablet 12/25/2023 Unknown ORAL DAILY 1 TABLET 276962 RxNorm TAKE 1 TABLET ORAL DAILY Assessment [...] Date Status Code Code System PNEUMONIA active [id number] SNOMED-CT POLYSUBSTANCE ABUSE active 553016866 SNOMED-CT ACUTE AND CHRONIC RESPIRATORY FAILURE WITH HYPERCAPNIA active 0866590207980 SNOMED-CT ACUTE AND CHRONIC RESPIRATORY FAILURE WITH HYPOXIA active 06644439 SNOMED-CT COPD WITH EXACERBATION active 9260124 07 SNOMED-CT ALCOHOL USE WITH WITHDRAWAL active 944171615 SNOMED-CT CHRONIC RESPIRATORY FAILURE WITH HYPOXIA 10/03/2021 resolved 07103594 SNOMED- CT OTHER SEIZURES 10/03/2021 resolved 32633784 SNOM ED-CT PULMONARY NODULE 10/03/2021 resolved 306952037 SN OMED-CT CHRONIC HEPATITIS C 10/03/2021 resolved 757914433 SNOMED-CT ANXIETY DISORDER 10/03/2021 resolved 310063073 SN OMED-CT 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 10/03/2021 resolved [id number] SNOME D-CT NICOTINE DEPENDENCE 01/13/2021 resolved 62468724 SNOMED-CT VENOUS INSUFFICIENCY 10/03/2021 resolved 40603983 SNOMED-CT ALCOHOL INTOXICATION 11/26/2022 resolved 81036769 SNOMED-CT AMS 11/26/2022 resolved 848002885 SNOMED-CT HYPOKALEMIA 11/26/2022 resolved 84251636 SNOMED- CT OPIATE TOXICITY 06/04/2023 resolved 065254413 SNO MED-CT ACUTE ALCOHOL INTOXICATION 04/01/2023 resolved 3839747048 SNOMED-CT FEVER 06/04/2023 resolved 014701811 SNOMED-CT ALTERED MENTAL STATUS 06/04/2023 resolved 7851688 04 SNOMED-CT CHRONIC HEADACHE DISORDER 10/03/2021 resolved 381404128 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 632747 00 SNOMED-CT ALCOHOL DEPENDENCE WITH WITHDRAWAL 01/13/2021 resolved 32879640 SNOMED-CT HTN 10/03/2021 resolved 99404465 SNOMED-CT COPD 09/09/2021 resolved 80497929 SNOMED-CT HIGH CHOLESTEROL 09/09/2021 resolved 92478505 SN OMED-CT Allergies and Adverse Reactions Allergy Substance Reaction Severity Start Date Concern Status Code Code System PCN (penicillin) Anaphylaxis (SNOMED-CT: [id number]) Moderate Active 5616806 SNOMED-CT Plan of Treatment X-RAY 03/21/2022 MRI BRAIN W WO CONTRAST 12/06/2021 MRI BRAIN W WO CONTRAST 11/30/2021 LAB DRAW 15MIN 05/13/2021 Encounters Encounter Diagnosis Start Date Code Code Sys tem 10/03/2021 [id number] SNOMED-CT Personal Care Team Section Performer Name Performer Role Active Date Inactive Stephen griffin
--- OUTSIDE RECORDS SUMMARY | 2024-02-29 09:07 | XMS_ITS ---
Author Organization Unknown Address [address] [place] [phone] Phone Care Team Providers Care Music Educator Name Role Phone KADEEM HERNADEZ Registered Nurse Unavailable GINA Bee Attending Unavailable YOLANDE [facility] Unavailable RAMIN Walsh Primary Unavailable UNLISTED PROVIDER - REQUESTED Xhandoff Un available Immunization Immunization Date Status Additional Notes Code Code System Tdap 10/03/2021 Completed 115 CVX Tdap 01/14/2022 Completed 115 CVX Social History Type Status Start Date End Date Code Code Syst em Smoking History Current every day smoker 457392851 SNOMED CT Smoking History Light tobacco smoker [id number] Smoking History Smoker, current status unknown 99375321 SNOMED CT Sex Male Vital Signs Vital Sign Value Unit Charl[place] Value [place] Unit Date/Time Recent/Initial? Code Code System Systolic Blood Pressure 147 mm[Hg] 01/14/2022 13:32 Initial 8480-6 [facility] Diastolic Blood Pressure 89 mm[Hg] 01/14/2022 13:32 Initial 8462-4 [facility] O2 Saturation 94 % 2021 13:32 Initial 01725- 5 [facility] Inhaled Oxygen Flow Rate 2.00 L/min 01/14/2022 13:32 Initial 3151-8 [facility] Pulse 99.0 /min 01/14/2022 13:32 Initial 8867-4 [facility] Respiration 22 /min 01/15/20 22 13:32 Initial 9279-1 [facility] Temperature 36.5 Regina 97.7 F 01/15/20 13:32 Initial 8310-5 [facility] Medications Medication Start Date End Date Route Frequency Dose Code Code System Medication Instructions Home Meds Lisinopril 20MG Oral Tablet 04/01/2019 12/01/2022 ORAL DAILY 20 MILLIGRAMS 471708 RxNorm TAKE 20 MILLIGRAMS ORAL DAILY ProAir HFA 0.09MG/1Actu ation Inhalation Suspension 04/01/2019 05/12/2022 INHALA TION NEEDED FOUR TIMES A DAY 2 unit(s) 915966 RxNorm 2 EACH INHALATION NEEDED FOUR TIMES A DAY Pregabalin 200MG Oral Capsule 04/01/2019 07/27/2023 ORAL THREE TIMES A DAY 200 MILLIGRAMS 999983 RxNorm TAKE 200 MILLIGRAMS ORAL THREE TIMES A DAY DULoxetine HCl 60MG Oral Capsule, Delayed Release 10/22/2019 07/27/2023 ORAL DAILY 60 MILLIGRAMS 959523 RxNorm TAKE 60 MILLIGRAMS ORAL DAILY QUEtiapine Fumarate 300MG Oral Tablet 10/22/2019 05/12/2022 ORAL BEDTIME 300 MILLIGRAMS 693136 RxNorm TAKE 300 MILLIGRAMS ORAL BEDTIME Nicoderm CQ 14MG/24HR Transdermal Patch, Extended Release 01/15/2021 02/12/2022 TRANSD ERMAL DAILY 1 unit(s) RxNorm APPLY 1 EACH TRANSDERMAL DAILY Ibuprofen 200MG Oral Tablet 01/15/2021 11/25/2022 ORAL NEEDED THREE TIMES A DAY 600 MILLIGRAMS 928168 RxNorm TAKE 600 MILLIGRAMS ORAL NEEDED THREE TIMES A DAY LORazepam 0.5MG Oral Tablet 01/15/2021 05/12/2022 ORAL NEEDED TWICE DAILY 0.5 MILLIGRAMS 463564 RxNorm TAKE 0.5 MILLIGRAMS ORAL NEEDED TWICE DAILY Anoro Ellipta 62.5MCG-25MC G/1ACT Inhalation Powder 10/05/2021 07/27/2023 INHALA TION TWICE A DAY 1 PUFF 3061954 RxNorm 1 PUFF INHALATION TWICE A DAY Albuterol Sulfate 0.083% Inhalation Solution 10/05/2021 11/25/2022 INHALA TION NEEDED EVERY 4 HOURS 1 unit(s) 928834 RxNorm 1 EACH INHALATION NEEDED EVERY 4 HOURS Methadone HCl 40MG Oral Tablet for Suspension 10/05/2021 07/27/2023 ORAL DAILY 132 MILLIGRAMS 358037 RxNorm TAKE 132 MILLIGRAMS ORAL DAILY Zonisamide 100MG Oral Capsule 12/22/2021 05/12/2022 ORAL TWICE A DAY 100 MILLIGRAMS 448942 RxNorm TAKE 100 MILLIGRAMS ORAL TWICE A DAY Keflex 500MG Oral Capsule 01/14/2022 02/12/2022 ORAL THREE TIMES A DAY 1 CAPSULE 795224 RxNorm TAKE 1 CAPSULE ORAL THREE TIMES A DAY predniSONE 10MG Oral Tablet 02/16/2022 11/25/2022 ORAL THREE TIMES A DAY WITH FOOD 10 MILLIGRAMS 950631 RxNorm TAKE 10 MILLIGRAMS ORAL THREE TIMES A DAY WITH FOOD SEROquel 300MG Oral Tablet 02/16/2022 12/22/2022 ORAL BEDTIME 300 MILLIGRAMS 122087 RxNorm TAKE 300 MILLIGRAMS ORAL BEDTIME Cephalexin 500MG Oral Capsule 02/16/2022 02/16/2022 ORAL THREE TIMES A DAY 1 CAPSULE 905477 RxNorm TAKE 1 CAPSULE ORAL THREE TIMES A DAY Cephalexin 500MG Oral Capsule 02/16/2022 05/12/2022 ORAL THREE TIMES A DAY 1 CAPSULE 754570 RxNorm TAKE 1 CAPSULE ORAL THREE TIMES A DAY MiraLAX 17GM/1Dose Oral Powder for Solution 05/12/2022 11/25/2022 ORAL DAILY 17 GRAM 815023 RxNorm TAKE 17 GRAM ORAL DAILY Ventolin HFA 0.09MG/1Actu ation Inhalation Suspension 12/01/2022 07/27/2023 INHALA TION 1 unit(s) 616188 RxNorm 1 EACH INHALATION Cefpodoxime Proxetil 200MG Oral Tablet 12/01/2022 12/22/2022 ORAL EVERY 12 HOURS 200 MILLIGRAMS 688303 RxNorm TAKE 200 MILLIGRAMS ORAL EVERY 12 HOURS Ibuprofen 600MG Oral Tablet 12/01/2022 07/27/2023 ORAL NEEDED THREE TIMES A DAY 600 MILLIGRAMS 647984 RxNorm TAKE 600 MILLIGRAMS ORAL NEEDED THREE TIMES A DAY FOR PAIN Combivent Respimat 100MCG-20MCG /1Act Inhalation Swain 12/01/2022 07/27/2023 INHALA TION NEEDED EVERY 8 HOURS 1 unit(s) 8923417 RxNorm 1 EACH INHALATION NEEDED EVERY 8 HOURS Depo-Testost erone Novaplus 200MG/1ML Intramuscula r Oil 12/01/2022 07/27/2023 INTRAM USCULA R 1 unit(s) 221110 RxNorm INJECT 1 EACH INTRAMUSCULA R Flovent 0.22MG/1Actu ation Inhalation Aerosol Powder 12/01/2022 07/27/2023 INHALA TION TWICE A DAY 1 unit(s) 190452 RxNorm 1 EACH INHALATION TWICE A DAY Zonisamide 100MG Oral Capsule 12/01/2022 07/27/2023 ORAL DAILY 200 MILLIGRAMS 901166 RxNorm TAKE 200 MILLIGRAMS ORAL DAILY guaiFENesin 600MG Oral Tablet, Extended Release 12/01/2022 12/01/2022 ORAL NEEDED TWICE DAILY 1 TABLET 726709 RxNorm TAKE 1 TABLET ORAL NEEDED TWICE DAILY FOR COUGH predniSONE 10MG Oral Tablet 12/01/2022 12/01/2022 ORAL DAILY 2 TABLET 796748 RxNorm TAKE 2 TABLET ORAL DAILY X 5 DAYS THEN 1 TAB DAILY X 5 DAYS THEN STOP guaiFENesin 600MG Oral Tablet, Extended Release 12/01/2022 07/27/2023 ORAL NEEDED TWICE DAILY 1 TABLET 161506 RxNorm TAKE 1 TABLET ORAL NEEDED TWICE DAILY FOR COUGH predniSONE 10MG Oral Tablet 12/01/2022 12/22/2022 ORAL DAILY 2 TABLET 376340 RxNorm TAKE 2 TABLET ORAL DAILY X 5 DAYS THEN 1 TAB DAILY X 5 DAYS THEN STOP Acetaminophe n 500MG Oral Tablet 12/01/2022 07/27/2023 ORAL NEEDED THREE TIMES A DAY 2 TABLET 270145 RxNorm TAKE 2 TABLET ORAL NEEDED THREE TIMES A DAY FOR PAIN Lisinopril 40MG Oral Tablet 12/01/2022 07/27/2023 ORAL DAILY 1 TABLET 518445 RxNorm TAKE 1 TABLET ORAL DAILY predniSONE 20MG Oral Tablet 12/22/2022 04/02/2023 ORAL DAILY 1 TABLET 959066 RxNorm TAKE 3 TABLETS DAILY FOR 3 DAYS, THEN 2 TABLETS DAILY FOR 3 DAYS, THEN 1 TABLET DAILY FOR 3 DAYS Narcan 4MG/0.1ML Nasal Swain 12/30/2022 07/27/2023 NASAL NEEDED 1 SPRAY 5983373 RxNorm SPRAY 1 SPRAY NASAL NEEDED FOR OPIATE OVERDOSE Albuterol Sulfate 0.09MG/1Actu ation Inhalation Suspension 12/30/2022 07/27/2023 INHALA TION NEEDED EVERY 4 HOURS 2 PUFF 1930070 RxNorm 2 PUFF INHALATION NEEDED EVERY 4 HOURS FOR Shortness of breath Cefpodoxime Proxetil 200MG Oral Tablet 04/05/2023 06/04/2023 ORAL TWICE A DAY 1 TABLET 538924 RxNorm TAKE 1 TABLET ORAL TWICE A DAY QUEtiapine 300MG Oral Tablet 04/05/2023 07/27/2023 ORAL BEDTIME 300 MILLIGRAMS 990333 RxNorm TAKE 300 MILLIGRAMS ORAL BEDTIME predniSONE 10MG Oral Tablet 04/05/2023 06/04/2023 ORAL TWICE A DAY 2 TABLET 283652 RxNorm TAKE 2 TABLET ORAL TWICE A DAY for 3 days then 2 tabs daily x 3 days then 1 tab daily x 3 days Senna Plus 50MG-8.6MG Oral Tablet 04/05/2023 07/27/2023 ORAL TWICE A DAY 2 TABLET 406929 RxNorm TAKE 2 TABLET ORAL TWICE A DAY busPIRone 15MG Oral Tablet 04/05/2023 07/27/2023 ORAL THREE TIMES A DAY 15 MILLIGRAMS 124003 RxNorm TAKE 15 MILLIGRAMS ORAL THREE TIMES A DAY oxygen 04/05/2023 Unknown ORAL continu ous 3 LITERS RxNorm TAKE 3 LITERS ORAL continuous Milk Of Magnesia 400MG/5ML Oral Suspension 06/13/2023 07/27/2023 ORAL NEEDED DAILY 30 mL 778667 RxNorm TAKE 30 mL ORAL NEEDED DAILY predniSONE 20MG Oral Tablet 07/27/2023 10/16/2023 ORAL DAILY 2 TABLET 259375 RxNorm TAKE 2 TABLET ORAL DAILY predniSONE 20MG Oral Tablet 09/15/2023 10/16/2023 ORAL DAILY 2 TABLET 492383 RxNorm TAKE 2 TABLET ORAL DAILY Ibuprofen 200MG Oral Tablet 10/22/2023 Unknown ORAL NEEDED THREE TIMES A DAY 3 TABLET 954868 RxNorm TAKE 3 TABLET ORAL NEEDED THREE TIMES A DAY predniSONE 10MG Oral Tablet 10/22/2023 12/01/2023 ORAL TWICE A DAY 2 TABLET 752330 RxNorm TAKE 2 TABLET ORAL TWICE A DAY x 3 days then 1 tab twice a day x 5 days then 1 tab daily LORazepam 1MG Oral Tablet 10/22/2023 Unknown ORAL NEEDED TWICE DAILY 1 MILLIGRAMS 975393 RxNorm TAKE 1 MILLIGRAMS ORAL NEEDED TWICE DAILY Cefpodoxime Proxetil 200MG Oral Tablet 10/22/2023 11/28/2023 ORAL EVERY 12 HOURS 200 MILLIGRAMS 564056 RxNorm TAKE 200 MILLIGRAMS ORAL EVERY 12 HOURS Anoro Ellipta 62.5MCG-25MC G/1ACT Inhalation Powder 10/22/2023 Unknown INHALA TION DAILY 1 GRAM 9721365 RxNorm 1 GRAM INHALATION DAILY DULoxetine HCl 60MG Oral Capsule, Delayed Release 10/22/2023 Unknown ORAL DAILY 60 MILLIGRAMS 000934 RxNorm TAKE 60 MILLIGRAMS ORAL DAILY Linzess 145MCG Oral Capsule 10/22/2023 10/27/2023 ORAL DAILY 1 unit(s) 7226309 RxNorm TAKE 1 E ACH ORAL DAILY Lisinopril 40MG Oral Tablet 10/22/2023 Unknown ORAL DAILY 40 MILLIGRAMS 264583 RxNorm TAKE 40 MILLIGRAMS ORAL DAILY Methadone 10MG Oral Tablet 10/22/2023 Unknown ORAL DAILY 132 MILLIGRAMS RxNorm TAKE 132 MILLIGRAMS ORAL DAILY Pregabalin 200MG Oral Capsule 10/22/2023 Unknown ORAL THREE TIMES A DAY 200 MILLIGRAMS 216056 RxNorm TAKE 200 MILLIGRAMS ORAL THREE TIMES A DAY QUEtiapine Fumarate 300MG Oral Tablet 10/22/2023 Unknown ORAL BEDTIME 300 MILLIGRAMS 748838 RxNorm TAKE 300 MILLIGRAMS ORAL BEDTIME Testosterone Cypionate 200MG/1ML Intramuscula r Oil 10/22/2023 Unknown 1888579 RxNorm As directed Ventolin HFA 0.09MG/1Actu ation Inhalation Suspension 10/22/2023 Unknown INHALA TION NEEDED EVERY 4 HOURS 2 PUFF 622000 RxNorm 2 PUFF INHALATION NEEDED EVERY 4 HOURS Acetaminophe n 500MG Oral Tablet 10/22/2023 Unknown ORAL THREE TIMES A DAY 2 TABLET 182617 RxNorm TAKE 2 TABLET ORAL THREE TIMES A DAY predniSONE 10MG Oral Tablet 12/01/2023 12/07/2023 ORAL DAILY 4 TABLET 569436 RxNorm TAKE 4 TABLET ORAL DAILY x 3 days then 2 tabs daily x 3 days then 1 tab daily x 7 days Cefpodoxime Proxetil 200MG Oral Tablet 12/01/2023 12/07/2023 ORAL TWICE A DAY 1 TABLET 521366 RxNorm TAKE 1 TABLET ORAL TWICE A DAY levoFLOXacin 750MG Oral Tablet 12/25/2023 Unknown ORAL DAILY 1 TABLET 299839 RxNorm TAKE 1 TABLET ORAL DAILY predniSONE 50MG Oral Tablet 12/25/2023 Unknown ORAL DAILY 1 TABLET 492761 RxNorm TAKE 1 TABLET ORAL DAILY Assessment [...] Date Status Code Code System PNEUMONIA active 928791133 SNOMED-CT POLYSUBSTANCE ABUSE active 126303091 SNOMED-CT ACUTE AND CHRONIC RESPIRATORY FAILURE WITH HYPERCAPNIA active 8387288656301 SNOMED-CT ACUTE AND CHRONIC RESPIRATORY FAILURE WITH HYPOXIA active 41631488 SNOMED-CT COPD WITH EXACERBATION active 2995502 07 SNOMED-CT ALCOHOL USE WITH WITHDRAWAL active 237021597 SNOMED-CT CHRONIC RESPIRATORY FAILURE WITH HYPOXIA 10/03/2021 resolved 87813313 SNOMED- CT OTHER SEIZURES 10/03/2021 resolved 84211392 SNOM ED-CT PULMONARY NODULE 10/03/2021 resolved 546458359 SN OMED-CT CHRONIC HEPATITIS C 10/03/2021 resolved 945337764 SNOMED-CT ANXIETY DISORDER 10/03/2021 resolved 616962207 SN OMED-CT 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 10/03/2021 resolved [id number] SNOME D-CT NICOTINE DEPENDENCE 01/13/2021 resolved 00853283 SNOMED-CT VENOUS INSUFFICIENCY 10/03/2021 resolved 91728469 SNOMED-CT ALCOHOL INTOXICATION 11/26/2022 resolved 73705257 SNOMED-CT AMS 11/26/2022 resolved 375049409 SNOMED-CT HYPOKALEMIA 11/26/2022 resolved 81784844 SNOMED- CT OPIATE TOXICITY 06/04/2023 resolved 483326409 SNO MED-CT ACUTE ALCOHOL INTOXICATION 04/01/2023 resolved 0442835382 SNOMED-CT FEVER 06/04/2023 resolved 823781027 SNOMED-CT ALTERED MENTAL STATUS 06/04/2023 resolved 6246476 04 SNOMED-CT CHRONIC HEADACHE DISORDER 10/03/2021 resolved 294531902 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 238135 00 SNOMED-CT ALCOHOL DEPENDENCE WITH WITHDRAWAL 01/13/2021 resolved 40041975 SNOMED-CT HTN 10/03/2021 resolved 09791688 SNOMED-CT COPD 09/09/2021 resolved 86408036 SNOMED-CT HIGH CHOLESTEROL 09/09/2021 resolved 11685432 SN OMED-CT Allergies and Adverse Reactions Allergy Substance Reaction Severity Start Date Concern Status Code Code System PCN (penicillin) Anaphylaxis (SNOMED-CT: 15111167) Moderate Active 3923625 SNOMED-CT Plan of Treatment X-RAY 03/21/2022 MRI BRAIN W WO CONTRAST 12/06/2021 MRI BRAIN W WO CONTRAST 11/30/2021 LAB DRAW 15MIN 05/13/2021 Encounters Encounter Diagnosis Start Date Code Code Sys tem Laceration without foreign b laura, left lower leg, initial encounter 01/14/2022 SNOMED-CT Personal Care Team Section Performer Name Performer Role Active Date Inactive Da te
--- OUTSIDE RECORDS SUMMARY | 2024-02-29 09:07 | XMS_ITS ---
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 The exam is extremely limited by patient motion. Post contrast sequences were not performed. The pituitary does not appear enlarged. There is no evidence of an intracranial mass or gross evidence of hemorrhage. The ventricles are normal in size. There is mild sinus mucosal thickening. The orbits are unremarkable. IMPRESSION:Severely limited exam due to patient motion. The pituitary does not appear enlarged. Microadenoma cannot be excluded. Dictated by: CEO DAISY RODRIGUEZ MD Transcribed by: JUSTIN 12/10/21/14:44 D Monday, December 06, 2021 9:58:49 AM [id number] Electronically Reviewed and Signed By: DAISY RODRIGUEZ MD 12/12/21 11:29 Copy for: CORDELIA Barragan via fax Copy for: 185 [facility] INFORMATION MG[facility] Social History Type Status Start Date End Date Code Code Syst em Smoking History Current every day smoker [id number] SNOMED CT Smoking History Light tobacco smoker [id number] Smoking History Smoker, current status unknown [id number] SNOMED CT Sex Male Medications Medication Start Date End Date Route Frequency Dose Code Code System Medication Instructions Home Meds Lisinopril 20MG Oral Tablet 04/01/2019 12/01/2022 ORAL DAILY 20 MILLIGRAMS 351873 RxNorm TAKE 20 MILLIGRAMS ORAL DAILY ProAir HFA 0.09MG/1Actu ation Inhalation Suspension 04/01/2019 05/12/2022 INHALA TION NEEDED FOUR TIMES A DAY 2 unit(s) 413196 RxNorm 2 EACH INHALATION NEEDED FOUR TIMES A DAY Pregabalin 200MG Oral Capsule 04/01/2019 07/27/2023 ORAL THREE TIMES A DAY 200 MILLIGRAMS 903474 RxNorm TAKE 200 MILLIGRAMS ORAL THREE TIMES A DAY DULoxetine HCl 60MG Oral Capsule, Delayed Release 10/22/2019 07/27/2023 ORAL DAILY 60 MILLIGRAMS 271232 RxNorm TAKE 60 MILLIGRAMS ORAL DAILY QUEtiapine Fumarate 300MG Oral Tablet 10/22/2019 05/12/2022 ORAL BEDTIME 300 MILLIGRAMS 408793 RxNorm TAKE 300 MILLIGRAMS ORAL BEDTIME Nicoderm CQ 14MG/24HR Transdermal Patch, Extended Release 01/15/2021 02/12/2022 TRANSD ERMAL DAILY 1 unit(s) RxNorm APPLY 1 EACH TRANSDERMAL DAILY Ibuprofen 200MG Oral Tablet 01/15/2021 11/25/2022 ORAL NEEDED THREE TIMES A DAY 600 MILLIGRAMS 995701 RxNorm TAKE 600 MILLIGRAMS ORAL NEEDED THREE TIMES A DAY LORazepam 0.5MG Oral Tablet 01/15/2021 05/12/2022 ORAL NEEDED TWICE DAILY 0.5 MILLIGRAMS 331677 RxNorm TAKE 0.5 MILLIGRAMS ORAL NEEDED TWICE DAILY Anoro Ellipta 62.5MCG-25MC G/1ACT Inhalation Powder 10/05/2021 07/27/2023 INHALA TION TWICE A DAY 1 PUFF 7285068 RxNorm 1 PUFF INHALATION TWICE A DAY Albuterol Sulfate 0.083% Inhalation Solution 10/05/2021 11/25/2022 INHALA TION NEEDED EVERY 4 HOURS 1 unit(s) 816160 RxNorm 1 EACH INHALATION NEEDED EVERY 4 HOURS Methadone HCl 40MG Oral Tablet for Suspension 10/05/2021 07/27/2023 ORAL DAILY 132 MILLIGRAMS 414944 RxNorm TAKE 132 MILLIGRAMS ORAL DAILY Doxycycline 100MG Oral Capsule 12/10/2021 12/21/2021 ORAL TWICE A DAY 1 CAPSULE 3604187 RxNorm TAKE 1 CAPSULE ORAL TWICE A DAY Zonisamide 100MG Oral Capsule 12/22/2021 05/12/2022 ORAL TWICE A DAY 100 MILLIGRAMS 738301 RxNorm TAKE 100 MILLIGRAMS ORAL TWICE A DAY Keflex 500MG Oral Capsule 01/14/2022 02/12/2022 ORAL THREE TIMES A DAY 1 CAPSULE 470277 RxNorm TAKE 1 CAPSULE ORAL THREE TIMES A DAY predniSONE 10MG Oral Tablet 02/16/2022 11/25/2022 ORAL THREE TIMES A DAY WITH FOOD 10 MILLIGRAMS 484928 RxNorm TAKE 10 MILLIGRAMS ORAL THREE TIMES A DAY WITH FOOD SEROquel 300MG Oral Tablet 02/16/2022 12/22/2022 ORAL BEDTIME 300 MILLIGRAMS 486474 RxNorm TAKE 300 MILLIGRAMS ORAL BEDTIME Cephalexin 500MG Oral Capsule 02/16/2022 02/16/2022 ORAL THREE TIMES A DAY 1 CAPSULE 859572 RxNorm TAKE 1 CAPSULE ORAL THREE TIMES A DAY Cephalexin 500MG Oral Capsule 02/16/2022 05/12/2022 ORAL THREE TIMES A DAY 1 CAPSULE 178082 RxNorm TAKE 1 CAPSULE ORAL THREE TIMES A DAY MiraLAX 17GM/1Dose Oral Powder for Solution 05/12/2022 11/25/2022 ORAL DAILY 17 GRAM 973006 RxNorm TAKE 17 GRAM ORAL DAILY Ventolin HFA 0.09MG/1Actu ation Inhalation Suspension 12/01/2022 07/27/2023 INHALA TION 1 unit(s) 161285 RxNorm 1 EACH INHALATION Cefpodoxime Proxetil 200MG Oral Tablet 12/01/2022 12/22/2022 ORAL EVERY 12 HOURS 200 MILLIGRAMS 115476 RxNorm TAKE 200 MILLIGRAMS ORAL EVERY 12 HOURS Ibuprofen 600MG Oral Tablet 12/01/2022 07/27/2023 ORAL NEEDED THREE TIMES A DAY 600 MILLIGRAMS 241140 RxNorm TAKE 600 MILLIGRAMS ORAL NEEDED THREE TIMES A DAY FOR PAIN Combivent Respimat 100MCG-20MCG /1Act Inhalation [place] 12/01/2022 07/27/2023 INHALA TION NEEDED EVERY 8 HOURS 1 unit(s) 8372616 RxNorm 1 EACH INHALATION NEEDED EVERY 8 HOURS Depo-Testost erone Novaplus 200MG/1ML Intramuscula r Oil 12/01/2022 07/27/2023 INTRAM USCULA R 1 unit(s) 926909 RxNorm INJECT 1 EACH INTRAMUSCULA R Flovent 0.22MG/1Actu ation Inhalation Aerosol Powder 12/01/2022 07/27/2023 INHALA TION TWICE A DAY 1 unit(s) 096227 RxNorm 1 EACH INHALATION TWICE A DAY Zonisamide 100MG Oral Capsule 12/01/2022 07/27/2023 ORAL DAILY 200 MILLIGRAMS 794216 RxNorm TAKE 200 MILLIGRAMS ORAL DAILY guaiFENesin 600MG Oral Tablet, Extended Release 12/01/2022 12/01/2022 ORAL NEEDED TWICE DAILY 1 TABLET 638906 RxNorm TAKE 1 TABLET ORAL NEEDED TWICE DAILY FOR COUGH predniSONE 10MG Oral Tablet 12/01/2022 12/01/2022 ORAL DAILY 2 TABLET 563309 RxNorm TAKE 2 TABLET ORAL DAILY X 5 DAYS THEN 1 TAB DAILY X 5 DAYS THEN STOP guaiFENesin 600MG Oral Tablet, Extended Release 12/01/2022 07/27/2023 ORAL NEEDED TWICE DAILY 1 TABLET 835627 RxNorm TAKE 1 TABLET ORAL NEEDED TWICE DAILY FOR COUGH predniSONE 10MG Oral Tablet 12/01/2022 12/22/2022 ORAL DAILY 2 TABLET 096422 RxNorm TAKE 2 TABLET ORAL DAILY X 5 DAYS THEN 1 TAB DAILY X 5 DAYS THEN STOP Acetaminophe n 500MG Oral Tablet 12/01/2022 07/27/2023 ORAL NEEDED THREE TIMES A DAY 2 TABLET 456643 RxNorm TAKE 2 TABLET ORAL NEEDED THREE TIMES A DAY FOR PAIN Lisinopril 40MG Oral Tablet 12/01/2022 07/27/2023 ORAL DAILY 1 TABLET 157043 RxNorm TAKE 1 TABLET ORAL DAILY predniSONE 20MG Oral Tablet 12/22/2022 04/02/2023 ORAL DAILY 1 TABLET 669995 RxNorm TAKE 3 TABLETS DAILY FOR 3 DAYS, THEN 2 TABLETS DAILY FOR 3 DAYS, THEN 1 TABLET DAILY FOR 3 DAYS Narcan 4MG/0.1ML Nasal [place] 12/30/2022 07/27/2023 NASAL NEEDED 1 SPRAY 2389545 RxNorm SPRAY 1 SPRAY NASAL NEEDED FOR OPIATE OVERDOSE Albuterol Sulfate 0.09MG/1Actu ation Inhalation Suspension 12/30/2022 07/27/2023 INHALA TION NEEDED EVERY 4 HOURS 2 PUFF 7511622 RxNorm 2 PUFF INHALATION NEEDED EVERY 4 HOURS FOR Shortness of breath Cefpodoxime Proxetil 200MG Oral Tablet 04/05/2023 06/04/2023 ORAL TWICE A DAY 1 TABLET 260267 RxNorm TAKE 1 TABLET ORAL TWICE A DAY QUEtiapine 300MG Oral Tablet 04/05/2023 07/27/2023 ORAL BEDTIME 300 MILLIGRAMS 353043 RxNorm TAKE 300 MILLIGRAMS ORAL BEDTIME predniSONE 10MG Oral Tablet 04/05/2023 06/04/2023 ORAL TWICE A DAY 2 TABLET 181304 RxNorm TAKE 2 TABLET ORAL TWICE A DAY for 3 days then 2 tabs daily x 3 days then 1 tab daily x 3 days Senna Plus 50MG-8.6MG Oral Tablet 04/05/2023 07/27/2023 ORAL TWICE A DAY 2 TABLET 791467 RxNorm TAKE 2 TABLET ORAL TWICE A DAY busPIRone 15MG Oral Tablet 04/05/2023 07/27/2023 ORAL THREE TIMES A DAY 15 MILLIGRAMS 545436 RxNorm TAKE 15 MILLIGRAMS ORAL THREE TIMES A DAY oxygen 04/05/2023 Unknown ORAL continu ous 3 LITERS RxNorm TAKE 3 LITERS ORAL continuous Milk Of Magnesia 400MG/5ML Oral Suspension 06/13/2023 07/27/2023 ORAL NEEDED DAILY 30 mL 281043 RxNorm TAKE 30 mL ORAL NEEDED DAILY predniSONE 20MG Oral Tablet 07/27/2023 10/16/2023 ORAL DAILY 2 TABLET 094471 RxNorm TAKE 2 TABLET ORAL DAILY predniSONE 20MG Oral Tablet 09/15/2023 10/16/2023 ORAL DAILY 2 TABLET 962125 RxNorm TAKE 2 TABLET ORAL DAILY Ibuprofen 200MG Oral Tablet 10/22/2023 Unknown ORAL NEEDED THREE TIMES A DAY 3 TABLET 578669 RxNorm TAKE 3 TABLET ORAL NEEDED THREE TIMES A DAY predniSONE 10MG Oral Tablet 10/22/2023 12/01/2023 ORAL TWICE A DAY 2 TABLET 860906 RxNorm TAKE 2 TABLET ORAL TWICE A DAY x 3 days then 1 tab twice a day x 5 days then 1 tab daily LORazepam 1MG Oral Tablet 10/22/2023 Unknown ORAL NEEDED TWICE DAILY 1 MILLIGRAMS RxNorm TAKE 1 MILLIGRAMS ORAL NEEDED TWICE DAILY Cefpodoxime Proxetil 200MG Oral Tablet 10/22/2023 11/28/2023 ORAL EVERY 12 HOURS 200 MILLIGRAMS 676916 RxNorm TAKE 200 MILLIGRAMS ORAL EVERY 12 HOURS Anoro Ellipta 62.5MCG-25MC G/1ACT Inhalation Powder 10/22/2023 Unknown INHALA TION DAILY 1 GRAM 0036314 RxNorm 1 GRAM INHALATION DAILY DULoxetine HCl 60MG Oral Capsule, Delayed Release 10/22/2023 Unknown ORAL DAILY 60 MILLIGRAMS 929520 RxNorm TAKE 60 MILLIGRAMS ORAL DAILY Linzess 145MCG Oral Capsule 10/22/2023 10/27/2023 ORAL DAILY 1 unit(s) 9436057 RxNorm TAKE 1 E ACH ORAL DAILY Lisinopril 40MG Oral Tablet 10/22/2023 Unknown ORAL DAILY 40 MILLIGRAMS 541492 RxNorm TAKE 40 MILLIGRAMS ORAL DAILY Methadone 10MG Oral Tablet 10/22/2023 Unknown ORAL DAILY 132 MILLIGRAMS RxNorm TAKE 132 MILLIGRAMS ORAL DAILY Pregabalin 200MG Oral Capsule 10/22/2023 Unknown ORAL THREE TIMES A DAY 200 MILLIGRAMS 904332 RxNorm TAKE 200 MILLIGRAMS ORAL THREE TIMES A DAY QUEtiapine Fumarate 300MG Oral Tablet 10/22/2023 Unknown ORAL BEDTIME 300 MILLIGRAMS 816520 RxNorm TAKE 300 MILLIGRAMS ORAL BEDTIME Testosterone Cypionate 200MG/1ML Intramuscula r Oil 10/22/2023 Unknown 8577316 RxNorm As directed Ventolin HFA 0.09MG/1Actu ation Inhalation Suspension 10/22/2023 Unknown INHALA TION NEEDED EVERY 4 HOURS 2 PUFF 942288 RxNorm 2 PUFF INHALATION NEEDED EVERY 4 HOURS Acetaminophe n 500MG Oral Tablet 10/22/2023 Unknown ORAL THREE TIMES A DAY 2 TABLET RxNorm TAKE 2 TABLET ORAL THREE TIMES A DAY predniSONE 10MG Oral Tablet 12/01/2023 12/07/2023 ORAL DAILY 4 TABLET 295256 RxNorm TAKE 4 TABLET ORAL DAILY x 3 days then 2 tabs daily x 3 days then 1 tab daily x 7 days Cefpodoxime Proxetil 200MG Oral Tablet 12/01/2023 12/07/2023 ORAL TWICE A DAY 1 TABLET 189476 RxNorm TAKE 1 TABLET ORAL TWICE A DAY levoFLOXacin 750MG Oral Tablet 12/25/2023 Unknown ORAL DAILY 1 TABLET 179768 RxNorm TAKE 1 TABLET ORAL DAILY predniSONE 50MG Oral Tablet 12/25/2023 Unknown ORAL DAILY 1 TABLET 542089 RxNorm TAKE 1 TABLET ORAL DAILY Assessment [...] Date Status Code Code System PNEUMONIA active [id number] SNOMED-CT POLYSUBSTANCE ABUSE active 959702168 SNOMED-CT ACUTE AND CHRONIC RESPIRATORY FAILURE WITH HYPERCAPNIA active 5360605965619 SNOMED-CT ACUTE AND CHRONIC RESPIRATORY FAILURE WITH HYPOXIA active 61340482 SNOMED-CT COPD WITH EXACERBATION active 7187259 07 SNOMED-CT ALCOHOL USE WITH WITHDRAWAL active 628595756 SNOMED-CT CHRONIC RESPIRATORY FAILURE WITH HYPOXIA 10/03/2021 resolved 85376418 SNOMED- CT OTHER SEIZURES 10/03/2021 resolved 22401360 SNOM ED-CT PULMONARY NODULE 10/03/2021 resolved 817015364 SN OMED-CT CHRONIC HEPATITIS C 10/03/2021 resolved 254115896 SNOMED-CT ANXIETY DISORDER 10/03/2021 resolved 034893465 SN OMED-CT 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 10/03/2021 resolved [id number] SNOME D-CT NICOTINE DEPENDENCE 01/13/2021 resolved 05550282 SNOMED-CT VENOUS INSUFFICIENCY 10/03/2021 resolved 72416219 SNOMED-CT ALCOHOL INTOXICATION 11/26/2022 resolved 97322694 SNOMED-CT AMS 11/26/2022 resolved 738227822 SNOMED-CT HYPOKALEMIA 11/26/2022 resolved 05705390 SNOMED- CT OPIATE TOXICITY 06/04/2023 resolved 013220344 SNO MED-CT ACUTE ALCOHOL INTOXICATION 04/01/2023 resolved 3390014285 SNOMED-CT FEVER 06/04/2023 resolved 789111378 SNOMED-CT ALTERED MENTAL STATUS 06/04/2023 resolved 1699784 04 SNOMED-CT CHRONIC HEADACHE DISORDER 10/03/2021 resolved 566745986 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 613262 00 SNOMED-CT ALCOHOL DEPENDENCE WITH WITHDRAWAL 01/13/2021 resolved 86002982 SNOMED-CT HTN 10/03/2021 resolved 08445386 SNOMED-CT COPD 09/09/2021 resolved 97336801 SNOMED-CT HIGH CHOLESTEROL 09/09/2021 resolved 49602290 SN OMED-CT Allergies and Adverse Reactions Allergy Substance Reaction Severity Start Date Concern Status Code Code System PCN (penicillin) Anaphylaxis (SNOMED-CT: [id number]) Moderate Active 4532621 SNOMED-CT Plan of Treatment X-RAY 03/21/2022 MRI BRAIN W WO CONTRAST 12/06/2021 MRI BRAIN W WO CONTRAST 11/30/2021 LAB DRAW 15MIN 05/13/2021 Encounters Encounter Diagnosis Start Date Code Code Sys tem Testicular hypofunction 12/06/2021 SNOM ED-CT Personal Care Team Section Performer Name Performer Role Active Date Inactive Da elias
--- OUTSIDE RECORDS SUMMARY | 2024-02-29 09:07 | XMS_ITS ---
Author Organization Unknown Address [address] [place] [address] [phone] Phone Care Team Providers Care Showcase Trimmer Name Role Phone BRANDY Colung[place] Attending Unavailable Immunization Immunization Date Status Additional Notes Code Code System Tdap 10/03/2021 Completed 115 CVX Tdap 01/14/2022 Completed 115 CVX Social History Type Status Start Date End Date Code Code Syst em Smoking History Current every day smoker [id number] SNOMED CT Smoking History Light tobacco smoker [id number] Smoking History Smoker, current status unknown [id number] SNOMED CT Sex Male Medications Medication Start Date End Date Route Frequency Dose Code Code System Medication Instructions Home Meds Mapap 325MG Oral Tablet 03/07/2018 10/03/2021 BY MOUTH NEEDED EVERY 4 HOURS 650 MILLIGRAMS 409468 RxNorm TAKE 650 MILLIGRAMS BY MOUTH NEEDED EVERY 4 HOURS Lisinopri l 20MG Oral Tablet 04/01/2019 12/01/2022 ORAL DAILY 20 MILLIGRAMS 497536 RxNorm TAKE 20 MILLIGRAMS ORAL DAILY Ipratropi um [place]-A lbuterol Sulfate 0.5MG/3ML -3MG/3ML Inhalatio n Solution 04/01/2019 10/03/2021 INHALATI ON FOUR TIMES A DAY 1 unit(s) 3625240 RxNorm 1 EACH INHALATION FOUR TIMES A DAY ProAir HFA 0.09MG/1A ctuation Inhalatio n Suspensio n 04/01/2019 05/12/2022 INHALATI ON NEEDED FOUR TIMES A DAY 2 unit(s) 790371 RxNorm 2 EACH INHALATION NEEDED FOUR TIMES A DAY Pregabali n 200MG Oral Capsule 04/01/2019 07/27/2023 ORAL THREE TIMES A DAY 200 MILLIGRAMS 493019 RxNorm TAKE 200 MILLIGRAMS ORAL THREE TIMES A DAY QUEtiapin e Fumarate 300MG Oral Tablet 10/22/2019 05/12/2022 ORAL BEDTIME 300 MILLIGRAMS 214495 RxNorm TAKE 300 MILLIGRAMS ORAL BEDTIME DULoxetin e HCl 60MG Oral Capsule, Delayed Release 10/22/2019 07/27/2023 ORAL DAILY 60 MILLIGRAMS 101110 RxNorm TAKE 60 MILLIGRAMS ORAL DAILY Nicoderm CQ 14MG/24HR Transderm al Patch, Extended Release 01/15/2021 02/12/2022 TRANSDER MAL DAILY 1 unit(s) RxNorm APPLY 1 EACH TRANSDERMAL DAILY Cefpodoxi me Proxetil 200MG Oral Tablet 01/15/2021 10/03/2021 ORAL TWICE A DAY 1 TABLET 209311 RxNorm TAKE 1 TABLET ORAL TWICE A DAY Cefpodoxi me Proxetil 200MG Oral Tablet 01/15/2021 10/03/2021 ORAL TWICE A DAY 1 TABLET 008275 RxNorm TAKE 1 TABLET ORAL TWICE A DAY predniSON E 10MG Oral Tablet 01/15/2021 10/03/2021 ORAL DAILY 2 TABLET 887121 RxNorm TAKE 2 TABLET ORAL DAILY x 7 days then 1 tab daily x 7 days then stop Azithromy jennifer 250MG Oral Tablet 01/15/2021 10/03/2021 ORAL DAILY 250 MILLIGRAMS 884376 RxNorm TAKE 250 MILLIGRAMS ORAL DAILY Anoro Ellipta 62.5MCG-2 5MCG/1ACT Inhalatio n Powder 01/15/2021 10/03/2021 INHALATI ON 1 unit(s) 9353550 RxNorm 1 EACH INHALATION Flovent 0.22MG/Ac tuation Inhalatio n Aerosol Powder 01/15/2021 10/03/2021 INHALATI ON TWICE A DAY 2 PUFF 767834 RxNorm 2 PUFF INHALATION TWICE A DAY Ibuprofen 200MG Oral Tablet 01/15/2021 11/25/2022 ORAL NEEDED THREE TIMES A DAY 600 MILLIGRAMS 719202 RxNorm TAKE 600 MILLIGRAMS ORAL NEEDED THREE TIMES A DAY LORazepam 0.5MG Oral Tablet 01/15/2021 05/12/2022 ORAL NEEDED TWICE DAILY 0.5 MILLIGRAMS 209538 RxNorm TAKE 0.5 MILLIGRAMS ORAL NEEDED TWICE DAILY Methadone HCl 10MG/1ML Oral Solution 01/15/2021 10/03/2021 ORAL DAILY 13.2 mL 518757 RxNorm TAKE 13.2 mL ORAL DAILY predniSON E 20MG Oral Tablet 10/05/2021 11/14/2021 ORAL DAILY WITH FOOD 20 MILLIGRAMS 970907 RxNorm TAKE 20 MILLIGRAMS ORAL DAILY WITH FOOD Albuterol Sulfate 0.083% Inhalatio n Solution 10/05/2021 11/25/2022 INHALATI ON NEEDED EVERY 4 HOURS 1 unit(s) 368362 RxNorm 1 EACH INHALATION NEEDED EVERY 4 HOURS Anoro Ellipta 62.5MCG-2 5MCG/1ACT Inhalatio n Powder 10/05/2021 07/27/2023 INHALATI ON TWICE A DAY 1 PUFF 5540247 RxNorm 1 PUFF INHALATION TWICE A DAY Methadone HCl 40MG Oral Tablet for Suspensio n 10/05/2021 07/27/2023 ORAL DAILY 132 MILLIGRAMS 181633 RxNorm TAKE 132 MILLIGRAMS ORAL DAILY Cephalexi n 500MG Oral Capsule 10/05/2021 11/14/2021 ORAL THREE TIMES A DAY 1 CAPSULE 442233 RxNorm TAKE 1 CAPSULE ORAL THREE TIMES A DAY Doxycycli ne 100MG Oral Capsule 12/10/2021 12/21/2021 ORAL TWICE A DAY 1 CAPSULE 7362621 RxNorm TAKE 1 CAPSULE ORAL TWICE A DAY Zonisamid e 100MG Oral Capsule 12/22/2021 05/12/2022 ORAL TWICE A DAY 100 MILLIGRAMS 294992 RxNorm TAKE 100 MILLIGRAMS ORAL TWICE A DAY Keflex 500MG Oral Capsule 01/14/2022 02/12/2022 ORAL THREE TIMES A DAY 1 CAPSULE 050667 RxNorm TAKE 1 CAPSULE ORAL THREE TIMES A DAY predniSON E 10MG Oral Tablet 02/16/2022 11/25/2022 ORAL THREE TIMES A DAY WITH FOOD 10 MILLIGRAMS 036256 RxNorm TAKE 10 MILLIGRAMS ORAL THREE TIMES A DAY WITH FOOD SEROquel 300MG Oral Tablet 02/16/2022 12/22/2022 ORAL BEDTIME 300 MILLIGRAMS 259103 RxNorm TAKE 300 MILLIGRAMS ORAL BEDTIME Cephalexi n 500MG Oral Capsule 02/16/2022 02/16/2022 ORAL THREE TIMES A DAY 1 CAPSULE 245316 RxNorm TAKE 1 CAPSULE ORAL THREE TIMES A DAY Cephalexi n 500MG Oral Capsule 02/16/2022 05/12/2022 ORAL THREE TIMES A DAY 1 CAPSULE 254472 RxNorm TAKE 1 CAPSULE ORAL THREE TIMES A DAY MiraLAX 17GM/1Dos e Oral Powder for Solution 05/12/2022 11/25/2022 ORAL DAILY 17 GRAM 144208 RxNorm TAKE 17 G PAT ORAL DAILY Zonisamid e 100MG Oral Capsule 12/01/2022 07/27/2023 ORAL DAILY 200 MILLIGRAMS 439610 RxNorm TAKE 200 MILLIGRAMS ORAL DAILY Cefpodoxi me Proxetil 200MG Oral Tablet 12/01/2022 12/22/2022 ORAL EVERY 12 HOURS 200 MILLIGRAMS 023209 RxNorm TAKE 200 MILLIGRAMS ORAL EVERY 12 HOURS Ibuprofen 600MG Oral Tablet 12/01/2022 07/27/2023 ORAL NEEDED THREE TIMES A DAY 600 MILLIGRAMS 707048 RxNorm TAKE 600 MILLIGRAMS ORAL NEEDED THREE TIMES A DAY FOR PAIN Combivent Respimat 100MCG-20 MCG/1Act Inhalatio n [place] 12/01/2022 07/27/2023 INHALATI ON NEEDED EVERY 8 HOURS 1 unit(s) 9714715 RxNorm 1 EACH INHALATION NEEDED EVERY 8 HOURS Depo-Test osterone Novaplus 200MG/1ML Intramusc ular Oil 12/01/2022 07/27/2023 INTRAMUS CULAR 1 unit(s) 158061 RxNorm INJECT 1 EACH INTRAMUSCULA R Flovent 0.22MG/1A ctuation Inhalatio n Aerosol Powder 12/01/2022 07/27/2023 INHALATI ON TWICE A DAY 1 unit(s) 317742 RxNorm 1 EACH INHALATION TWICE A DAY Ventolin HFA 0.09MG/1A ctuation Inhalatio n Suspensio n 12/01/2022 07/27/2023 INHALATI ON 1 unit(s) 984420 RxNorm 1 EACH INHALATION guaiFENes in 600MG Oral Tablet, Extended Release 12/01/2022 12/01/2022 ORAL NEEDED TWICE DAILY 1 TABLET 504450 RxNorm TAKE 1 TABLET ORAL NEEDED TWICE DAILY FOR COUGH predniSON E 10MG Oral Tablet 12/01/2022 12/01/2022 ORAL DAILY 2 TABLET 866270 RxNorm TAKE 2 TABLET ORAL DAILY X 5 DAYS THEN 1 TAB DAILY X 5 DAYS THEN STOP guaiFENes in 600MG Oral Tablet, Extended Release 12/01/2022 07/27/2023 ORAL NEEDED TWICE DAILY 1 TABLET 309083 RxNorm TAKE 1 TABLET ORAL NEEDED TWICE DAILY FOR COUGH predniSON E 10MG Oral Tablet 12/01/2022 12/22/2022 ORAL DAILY 2 TABLET 994794 RxNorm TAKE 2 TABLET ORAL DAILY X 5 DAYS THEN 1 TAB DAILY X 5 DAYS THEN STOP Acetamino phen 500MG Oral Tablet 12/01/2022 07/27/2023 ORAL NEEDED THREE TIMES A DAY 2 TABLET 686181 RxNorm TAKE 2 TABLET ORAL NEEDED THREE TIMES A DAY FOR PAIN Lisinopri l 40MG Oral Tablet 12/01/2022 07/27/2023 ORAL DAILY 1 TABLET 004716 RxNorm TAKE 1 TABLET ORAL DAILY predniSON E 20MG Oral Tablet 12/22/2022 04/02/2023 ORAL DAILY 1 TABLET 943480 RxNorm TAKE 3 TABLETS DAILY FOR 3 DAYS, THEN 2 TABLETS DAILY FOR 3 DAYS, THEN 1 TABLET DAILY FOR 3 DAYS Narcan 4MG/0.1ML Nasal [place] 12/30/2022 07/27/2023 NASAL NEEDED 1 SPRAY 3814634 RxNorm SPRAY 1 SPRAY NASAL NEEDED FOR OPIATE OVERDOSE Albuterol Sulfate 0.09MG/1A ctuation Inhalatio n Suspensio n 12/30/2022 07/27/2023 INHALATI ON NEEDED EVERY 4 HOURS 2 PUFF 4860072 RxNorm 2 PUFF INHALATION NEEDED EVERY 4 HOURS FOR Shortness of breath Cefpodoxi me Proxetil 200MG Oral Tablet 04/05/2023 06/04/2023 ORAL TWICE A DAY 1 TABLET 213669 RxNorm TAKE 1 TABLET ORAL TWICE A DAY QUEtiapin e 300MG Oral Tablet 04/05/2023 07/27/2023 ORAL BEDTIME 300 MILLIGRAMS 610536 RxNorm TAKE 300 MILLIGRAMS ORAL BEDTIME predniSON E 10MG Oral Tablet 04/05/2023 06/04/2023 ORAL TWICE A DAY 2 TABLET 586783 RxNorm TAKE 2 TABLET ORAL TWICE A DAY for 3 days then 2 tabs daily x 3 days then 1 tab daily x 3 days Senna Plus 50MG-8.6M G Oral Tablet 04/05/2023 07/27/2023 ORAL TWICE A DAY 2 TABLET 417204 RxNorm TAKE 2 TABLET ORAL TWICE A DAY busPIRone 15MG Oral Tablet 04/05/2023 07/27/2023 ORAL THREE TIMES A DAY 15 MILLIGRAMS 185989 RxNorm TAKE 15 MILLIGRAMS ORAL THREE TIMES A DAY oxygen 04/05/2023 Unknown ORAL continuo us 3 LITERS RxNorm TAKE 3 LITERS ORAL continuous Milk Of Magnesia 400MG/5ML Oral Suspensio n 06/13/2023 07/27/2023 ORAL NEEDED DAILY 30 mL 985044 RxNorm TAKE 30 mL ORAL NEEDED DAILY predniSON E 20MG Oral Tablet 07/27/2023 10/16/2023 ORAL DAILY 2 TABLET 903724 RxNorm TAKE 2 TABLET ORAL DAILY predniSON E 20MG Oral Tablet 09/15/2023 10/16/2023 ORAL DAILY 2 TABLET 875998 RxNorm TAKE 2 TABLET ORAL DAILY Ibuprofen 200MG Oral Tablet 10/22/2023 Unknown ORAL NEEDED THREE TIMES A DAY 3 TABLET 900680 RxNorm TAKE 3 TABLET ORAL NEEDED THREE TIMES A DAY predniSON E 10MG Oral Tablet 10/22/2023 12/01/2023 ORAL TWICE A DAY 2 TABLET 347698 RxNorm TAKE 2 TABLET ORAL TWICE A DAY x 3 days then 1 tab twice a day x 5 days then 1 tab daily LORazepam 1MG Oral Tablet 10/22/2023 Unknown ORAL NEEDED TWICE DAILY 1 MILLIGRAMS 016924 RxNorm TAKE 1 MILLIGRAMS ORAL NEEDED TWICE DAILY Cefpodoxi me Proxetil 200MG Oral Tablet 10/22/2023 11/28/2023 ORAL EVERY 12 HOURS 200 MILLIGRAMS 831005 RxNorm TAKE 200 MILLIGRAMS ORAL EVERY 12 HOURS Anoro Ellipta 62.5MCG-2 5MCG/1ACT Inhalatio n Powder 10/22/2023 Unknown INHALATI ON DAILY 1 GRAM 0766876 RxNorm 1 GRAM INHALATION DAILY DULoxetin e HCl 60MG Oral Capsule, Delayed Release 10/22/2023 Unknown ORAL DAILY 60 MILLIGRAMS 596255 RxNorm TAKE 60 MILLIGRAMS ORAL DAILY Linzess 145MCG Oral Capsule 10/22/2023 10/27/2023 ORAL DAILY 1 unit(s) 6235076 RxNorm TAKE 1 E ACH ORAL DAILY Lisinopri l 40MG Oral Tablet 10/22/2023 Unknown ORAL DAILY 40 MILLIGRAMS 19771202 RxNorm TAKE 40 MILLIGRAMS ORAL DAILY Methadone 10MG Oral Tablet 10/22/2023 Unknown ORAL DAILY 132 MILLIGRAMS RxNorm TAKE 132 MILLIGRAMS ORAL DAILY Pregabali n 200MG Oral Capsule 10/22/2023 Unknown ORAL THREE TIMES A DAY 200 MILLIGRAMS 173837 RxNorm TAKE 200 MILLIGRAMS ORAL THREE TIMES A DAY QUEtiapin e Fumarate 300MG Oral Tablet 10/22/2023 Unknown ORAL BEDTIME 300 MILLIGRAMS 062619 RxNorm TAKE 300 MILLIGRAMS ORAL BEDTIME Testoster one Cypionate 200MG/1ML Intramusc ular Oil 10/22/2023 Unknown 4801304 RxNorm As directed Ventolin HFA 0.09MG/1A ctuation Inhalatio n Suspensio n 10/22/2023 Unknown INHALATI ON NEEDED EVERY 4 HOURS 2 PUFF 241812 RxNorm 2 PUFF INHALATION NEEDED EVERY 4 HOURS Acetamino phen 500MG Oral Tablet 10/22/2023 Unknown ORAL THREE TIMES A DAY 2 TABLET RxNorm TAKE 2 TABLET ORAL THREE TIMES A DAY predniSON E 10MG Oral Tablet 12/01/2023 12/07/2023 ORAL DAILY 4 TABLET 424933 RxNorm TAKE 4 TABLET ORAL DAILY x 3 days then 2 tabs daily x 3 days then 1 tab daily x 7 days Cefpodoxi me Proxetil 200MG Oral Tablet 12/01/2023 12/07/2023 ORAL TWICE A DAY 1 TABLET 636183 RxNorm TAKE 1 TABLET ORAL TWICE A DAY levoFLOXa jennifer 750MG Oral Tablet 12/25/2023 Unknown ORAL DAILY 1 TABLET 936343 RxNorm TAKE 1 TABLET ORAL DAILY predniSON E 50MG Oral Tablet 12/25/2023 Unknown ORAL DAILY 1 TABLET 757826 RxNorm TAKE 1 TABLET ORAL DAILY Assessment [...] Date Status Code Code System PNEUMONIA active [id number] SNOMED-CT POLYSUBSTANCE ABUSE active 005032291 SNOMED-CT ACUTE AND CHRONIC RESPIRATORY FAILURE WITH HYPERCAPNIA active 9975217441978 SNOMED-CT ACUTE AND CHRONIC RESPIRATORY FAILURE WITH HYPOXIA active 61680569 SNOMED-CT COPD WITH EXACERBATION active 9941665 07 SNOMED-CT ALCOHOL USE WITH WITHDRAWAL active 186569126 SNOMED-CT CHRONIC RESPIRATORY FAILURE WITH HYPOXIA 10/03/2021 resolved 32862533 SNOMED- CT OTHER SEIZURES 10/03/2021 resolved 14472656 SNOM ED-CT PULMONARY NODULE 10/03/2021 resolved 533315331 SN OMED-CT CHRONIC HEPATITIS C 10/03/2021 resolved 139294464 SNOMED-CT ANXIETY DISORDER 10/03/2021 resolved 216486708 SN OMED-CT 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 10/03/2021 resolved [id number] SNOME D-CT NICOTINE DEPENDENCE 01/13/2021 resolved 30275738 SNOMED-CT VENOUS INSUFFICIENCY 10/03/2021 resolved 35037570 SNOMED-CT ALCOHOL INTOXICATION 11/26/2022 resolved 76895699 SNOMED-CT AMS 11/26/2022 resolved 245182234 SNOMED-CT HYPOKALEMIA 11/26/2022 resolved 19937894 SNOMED- CT OPIATE TOXICITY 06/04/2023 resolved 160456985 SNO MED-CT ACUTE ALCOHOL INTOXICATION 04/01/2023 resolved 8167102054 SNOMED-CT FEVER 06/04/2023 resolved 693983936 SNOMED-CT ALTERED MENTAL STATUS 06/04/2023 resolved 7938773 04 SNOMED-CT CHRONIC HEADACHE DISORDER 10/03/2021 resolved 278961506 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 644162 00 SNOMED-CT ALCOHOL DEPENDENCE WITH WITHDRAWAL 01/13/2021 resolved 22434131 SNOMED-CT HTN 10/03/2021 resolved 32937281 SNOMED-CT COPD 09/09/2021 resolved 25848987 SNOMED-CT HIGH CHOLESTEROL 09/09/2021 resolved 29936163 SN OMED-CT Allergies and Adverse Reactions Allergy Substance Reaction Severity Start Date Concern Status Code Code System PCN (penicillin) Anaphylaxis (SNOMED-CT: [id number]) Moderate Active 1903254 SNOMED-CT Plan of Treatment X-RAY 03/21/2022 MRI BRAIN W WO CONTRAST 12/06/2021 MRI BRAIN W WO CONTRAST 11/30/2021 LAB DRAW 15MIN 05/13/2021 Encounters Encounter Diagnosis Start Date Code Code Sys tem Cellulitis of left lower limb 10/03/2021 SNOMED-CT Personal Care Team Section Performer Name Performer Role Active Date Inactive Da te
--- OUTSIDE RECORDS SUMMARY | 2024-02-29 09:07 | XMS_ITS ---
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 Name Role Phone BRITNEY MEHTA Registered Nurse Unavailable SUE MCDONNELL Registered Nurse Unavailable Unavailable Xwatchlist Unavailable ADRIANNA Mendieta Attending Unavailable [facility] Unavailable RAMIN Walsh Primary Unavailable UNLISTED PROVIDER - REQUESTED Xhandoff Un available Immunization Immunization Date Status Additional Notes Code Code System Tdap 10/03/2021 Completed 115 CVX Tdap 01/14/2022 Completed 115 CVX Results BASIC METABOLIC PANEL (BMP) - Collect Date/Time: 12/22/2021 06:25 [facility] ID: [id number] [address] [place] [address], [address] LOINC: 93852-3 Test Value Unit Reference Range Code Code System Flag GLUCOSE 112 mg/dL L=70 H=116 2345-7 LOINC BUN 14 mg/dL L=6 H=25 3094-0 LOINC CREATININE 0.72 mg/dL L=0.67 H=1.17 2160-0 LOINC SODIUM SERUM 138 mmol/L L=136 H=145 2951-2 LOINC POTASSIUM SERUM 5.0 mmol/L L=3.4 H=5.2 2823-3 LOINC CHLORIDE SERUM 102 mmol/L L=96 H=110 2075-0 LOINC CARBON DIOXIDE (CO2) 32 mmol/L L=22 H=34 2028-9 LOINC ANION GAP 3.7 mmol/L 04293-2 LOINC CALCIUM SERUM 8.5 mg/dL L=8.2 H=10.2 68935-7 LOINC AGE 46 years eGFR (non-Afr.Amer.) 117 mL/min 42084-7 LOINC eGFR (Afr-Citizen Of [place]) > 120 mL/min 27656-0 LOINC [facility] COVID GENEXPERT* - Co llect Date/Time: 12/21/2021 15:20 [facility] ID: [id number] - [id number] [address] [place], [place], [id number] LOINC: 20323-7 Test Value Unit Reference Range Code Code System Flag COVID NEGATIVE Normal: Negative 31768-1 LOINC Tier- INPATIENT/ED 06778-0 LOINC DRUG SCN 13 PANEL (MEDTOX)* - Collect Date/Time: 12/21/2021 14:00 [facility] ID: [id number] - [id number] [address] [place], [place], [id number] LOINC: 92759-7 Test Value Unit Reference Range Code Code System Flag CANNABINOIDS POSITIVE Cutoff = 50 ng/mL 42475-6 LOINC A PHENCYCLIDINE NEGATIVE Cutoff = 25 ng/mL 99542-9 LOINC COCAINE NEGATIVE Cutoff = 150 ng/mL 32097-2 LOINC METHAMPHETAMINES NEGATIVE Cutoff = 50 0 ng/mL 15722-1 LOINC OPIATES NEGATIVE Cutoff = 100 ng/mL 85037-2 LOINC AMPHETAMINES NEGATIVE Cutoff = 500 ng/mL 88179-9 LOINC BENZODIAZEPINES POSITIVE Cutoff = 150 ng/mL 55338-0 LOINC A TRICYCLIC ANTIDEP POSITIVE Cutoff = 3 00 ng/mL 3533-7 LOINC A METHADONE POSITIVE Cutoff = 200 ng/mL 33022-3 LOINC A BARBITURATES NEGATIVE Cutoff = 200 ng/mL 28716-2 LOINC OXYCODONE NEGATIVE Cutoff = 100 ng/mL 80248-7 LOINC PROPOXYPHENE NEGATIVE Cutoff = 300 ng/mL 54145-5 LOINC BUPRENORPHINE NEGATIVE Cutoff = 10 mg/mL 3414-0 LOINC URINALYSIS WITH REFLEX CULT IF POSITIVE* - Collect Date/Time: 12/21/2021 14:00 [facility] ID: [id number] [address] [place], [place], [address] LOINC: 45066-4 Test Value Unit Reference Range Code Code System Flag COLLECTION MODE: STRAIGHT CATH 03676-5 LOINC Color YELLOW yellow 5778-6 LOINC Appearance CLEAR clear 5767-9 LOINC Glucose urine NEGATIVE negative mg/dl 97464-1 LOINC Bilirubin NEGATIVE negative 5770-3 LOINC Ketones NEGATIVE negative mg/dl 2514-8 LOINC Spec gravity <=1.005 1.003 - 1.030 5811-5 LOINC pH urine 7.0 5.0 - 7.0 2756-5 LOINC Protein NEGATIVE negative mg/dl 54584-5 LOINC Urobilinogen 0.2 <or= 1 EU/dl 86992-0 LOINC Nitrite. NEGATIVE negative 5802-4 LOINC Blood NEGATIVE negative 5794-3 LOINC Leukocytes. NEGATIVE negative MICROSCOPIC NOT INDICAT ALCOHOL (ETHANOL)* - Collect Date/Time: 12/21/2021 12:13 [facility] ID: [id number] - [id number] [address] [place] [address], [address] LOINC: 82455-6 Test Value Unit Reference Range Code Code System Flag ALCOHOL (ETHANOL) 263 mg/dL 62423-4 [facility] ORDER VENOUS BLOOD GAS* - Co llect Date/Time: 12/21/2021 12:13 [facility] ID: [id number] - [id number] [address] [place] [address], [id number] LOINC: Test Value Unit Reference Range Code Code System Flag Specimen type: VENOUS pH (venous) 7.27 L=7.31 H=7.41 2746-6 LOINC L PCO2 (venous) 68.9 mm Hg L=41.0 H=51.0 2703-7 LOINC H PO2 (venous) 79 mm Hg L=30 H=50 2705-2 LOINC H HCO3 31 mmol/L L=22 H=26 1960-4 LOINC H TCO2 (venous) 33 mmol/L L=22 H=28 3533-7 LOINC H BASE EXCESS (venous) 4 mmol/L L=-2 H=3 3097-3 LOINC H Assist vent. Resp. Rate /min. Temp. ACETAMINOPHEN* - Collect Roby e/Time: 12/21/2021 12:13 [facility] ID: [id number] [address] [place] [address], [address] LOINC: 3298-7 Test Value Unit Reference Range Code Code System Flag ACETAMINOPHEN < 2.0 ug/mL L=10.0 H=20.0 3298-7 LOINC L LACTIC ACID - Collect Date/T vannessa: 12/21/2021 12:13 [facility] ID: [id number] [address] [place], [place] [id number] LOINC: Test Value Unit Reference Range Code Code System Flag LACTIC ACID 2.9 mmol/L L=0.7 H=2.1 59554-7 LOINC H COMPREHENSIVE METABOLIC PANE L (CMP) - Collect Date/Time: 12/21/2021 12:13 [facility] ID: [id number] [address] [place], [place] [id number] LOINC: 61659-3 Test Value Unit Reference Range Code Code System Flag GLUCOSE 97 mg/dL L=70 H=116 2345-7 LOINC BUN 9 mg/dL L=6 H=25 3094-0 LOINC CREATININE 0.94 mg/dL L=0.67 H=1.17 2160-0 LOINC SODIUM SERUM 143 mmol/L L=136 H=145 2951-2 LOINC POTASSIUM SERUM 3.5 mmol/L L=3.4 H=5.2 2823-3 LOINC CHLORIDE SERUM 103 mmol/L L=96 H=110 2075-0 LOINC CARBON DIOXIDE (CO2) 31 mmol/L L=22 H=34 2028-9 LOINC ANION GAP 8.6 mmol/L 31780-8 LOINC CALCIUM SERUM 8.3 mg/dL L=8.2 H=10.2 94942-0 LOINC BILIRUBIN TOTAL 0.2 mg/dL L=0.0 H=1.3 1975-2 LOINC ALK. PHOS. 80 U/L L=46 H=116 6768-6 LOINC SGOT (AST) 11 U/L L=15 H=37 1920-8 LOINC L SGPT (ALT) 12 U/L L=12 H=78 1742-6 LOINC TOTAL PROTEIN 7.4 gm/dL L=6.0 H=8.0 2885-2 LOINC ALBUMIN 3.2 gm/dL L=3.4 H=5.0 1751-7 LOINC L AGE 46 years eGFR (non-Afr.Amer.) 86 mL/min 10616-2 LOINC eGFR (Afr-Citizen Of [place]) 104 mL/min 63528-1 LOINC CBC W/ DIFFERENTIAL* - Colle ct Date/Time: 12/21/2021 12:13 [facility] ID: [id number] [address] [place], [place], [address] LOINC: 16961-9 Test Value Unit Reference Range Code Code System Flag WBC 8.24 th/cmm L=5.00 H=10.00 6690-2 LOINC NEUT % 57.7 % L=40.0 H=80.0 LYMPH % 20.3 % L=10.0 H=50.0 MONO % 11.9 % L=2.0 H=12.0 08559-2 LOINC EOS % 9.1 % L=0.0 H=8.0 H BASO % 0.8 % L=0.0 H=3.0 IG % 0.2 % L=0.0 H=1.1 2514-8 LOINC NRBC % 0.0 % L=0.0 H=0.0 68291-7 LOINC NEUT abs count 4.8 th/cmm L=1.6 H=8.4 751-8 LOINC LYMPH abs count 1.7 th/cmm L=1.5 H=4.0 731-0 LOINC MONO abs count 1.0 th/cmm L=0.2 H=1.0 742-7 LOINC EOS abs count 0.8 th/cmm L=0.0 H=0.5 711-2 LOINC H BASO abs count 0.1 th/cmm L=0.0 H=0.2 704-7 LOINC IG abs count 0.0 th/cmm L=0.0 H=0.1 81883-9 LOINC NRBC abs count 0.0 mil/cmm L=0.0 H=0.0 61873-6 LOINC RBC 5.64 mil/cmm L=4.30 H=6.20 789-8 LOINC HEMOGLOBIN 16.5 gm/dL L=13.0 H=17.0 718-7 LOINC HEMATOCRIT 52 % L=45 H=52 4544-3 LOINC MCV 92 fL L=82 H=92 787-2 LOINC MCH 29.3 pg L=27.0 H=31.0 785-6 LOINC MCHC 31.7 % L=32.0 H=36.0 786-4 LOINC L RDW-SD 57.7 fL L=39.0 H=49.0 788-0 LOINC H PLATELET COUNT 253 th/cmm L=150 H=450 777-3 LOINC SALICYLATE SERUM* - Collect Date/Time: 12/21/2021 12:13 [facility] ID: [id number] - [id number] [address] [place] [address], [address] LOINC: 4024-6 Test Value Unit Reference Range Code Code System Flag SALICYLATE < 2.8 mg/dL L=15.0 H=30.0 4024-6 LOINC L BNP (PRO-B NATRIURETIC PEPTI DE) - Collect Date/Time: 12/21/2021 12:13 [facility] ID: [id number] - [id number] [address] [place] [address], [address] LOINC: 74263-3 Test Value Unit Reference Range Code Code System Flag NT-proBNP 58.0 pg/mL L=0.0 H=125 82258-5 LOINC AMMONIA - Collect Date/Time: 12/21/2021 12:13 [facility] ID: [id number] - [id number] [address] [place] [address], [address] LOINC: 49244-0 Test Value Unit Reference Range Code Code System Flag AMMONIA 39 umol/L L=19 H=54 31599-[address] HEAD WO CONTRAST - Comple rachana: 12/21/2021 13:32 LOINC: Radiation optimization: All CT scans at this facility use at least one of these dose optimization techniques: automated exposure control; mA and/or kV adjustment per patient size (includes targeted exams where dose is matched to clinical indication); or iterative reconstruction. CT OF THE BRAIN: Comparison is made with prior CT scan of 04/07/19. There are no skull fractures nor fluid in the visualized paranasal sinuses.?? There is no evidence of intracranial hemorrhage, mass effect, nor shift of midline structures.?? There are no extraaxial fluid collections.?? The ventricles are not enlarged nor shifted and there is no blood within the ventricular system nor within the basal cisterns.?? IMPRESSION:No acute intracranial findings on this non-infused CT scan of the brain. Dictated by: KAVITA BIGGS MD Transcribed by: JUSTIN 12/23/2110:22 D Tuesday, December 21, 2021 1:08:24 PM 309420 [id number] Electronically Reviewed and Signed By: KURT BIGGS MD 12/23/21 19:13 Copy for: 185 HEALTH INFORMATION MGMT DISCHARGED XR CHEST PORTABLE OR 1V - Co mpleted: 12/21/2021 13:31 LOINC: CHEST - SINGLE VIEW - PORTAB LE: Compared to 11/15/21. Heart size is upper normal. Chest leads in place. Mediastinum not widened. There are increased markings again noted in both lung henriquez but there does not appear interstitial edema as was previously present. Still, however, there are increased markings throughout both lung henriquez. Dictated by: KAVITA BIGGS MD Transcribed by: JUSTIN 12/23/2109:37 D Tuesday, December 21, 2021 1:28:54 PM [id number] Electronically Reviewed and Signed By: KURT BIGGS MD 12/23/21 19:13 Copy for: 185 HEALTH INFORMATION MGMT DISCHARGED Social History Type Status Start Date End Date Code Code Syst em Smoking History Current every day smoker 190691170 SNOMED CT Smoking History Light tobacco smoker [id number] Smoking History Smoker, current status unknown 96198555 SNOMED CT Sex Male Vital Signs Vital Sign Value Unit Camas Value Camas Unit Date/Time Recent/Initial? Code Code System Body Mass Index 26.58 kg/m2 12/21/2021 23:01 Most Recent 68690 -5 LOINC Body Mass Index 27.37 kg/m2 12/21/2021 12:11 Initial 39180 -5 LOINC Systolic Blood Pressure 139 mm[Hg] 12/22/2021 08:46 Most Recent 8480- 6 LOINC Diastolic Blood Pressure 76 mm[Hg] 12/22/2021 08:46 Most Recent 8462- 4 LOINC Systolic Blood Pressure 101 mm[Hg] 12/21/2021 12:11 Initial 8480- 6 LOINC Diastolic Blood Pressure 62 mm[Hg] 12/21/2021 12:11 Initial 8462- 4 LOINC Body Surface Area 1.99 m2 12/21/2021 23:01 Most Recent 3140- 1 LOINC Body Surface Area 1.98 m2 12/21/2021 12:11 Initial 3140- 1 LOINC Height 175.260 0 cm 69.00 in 12/21/2021 23:01 Most Recent 8302- 2 LOINC Height 172.720 0 cm 68.00 in 12/21/2021 12:11 Initial 8302- 2 LOINC O2 Saturation 90 % 2021 08:46 Most Recent 32043 -5 LOINC O2 Saturation 92 % 2021 12:11 Initial 95602 -5 LOINC Inhaled Oxygen Flow Rate 2.00 L/min 12/22/2021 06:45 Most Recent 3151- 8 LOINC Inhaled Oxygen Flow Rate 10.00 L/min 12/21/2021 12:11 Initial 3151- 8 LOINC Fraction of Inspired Oxygen 28 % 12/22/2021 06:45 Initial 3150- 0 LOINC Pulse 58.0 /min 12/22/2021 08:46 Most Recent 8867- 4 LOINC Pulse 72.0 /min 12/21/2021 12:11 Initial 8867- 4 LOINC Respiration 18 /min 12/23/19 08:46 Most Recent 9279- 1 LOINC Respiration 22 /min 12/22/19 12:11 Initial 9279- 1 LOINC Temperature 37.0 Regina 98.6 F 12/23/19 08:46 Most Recent 8310- 5 LOINC Temperature 35.8 Regina 96.4 F 12/22/19 12:11 Initial 8310- 5 LOINC Weight 81.65 kg 180.00 lbs 12/21/2021 23:01 Most Recent 84162 -7 [facility] Weight 81.65 kg 180.00 lbs 12/21/2021 12:11 Initial 84264 -7 [facility] Medications Medication Start Date End Date Route Frequency Dose Code Code System Medication Instructions Home Meds Lisinopril 20MG Oral Tablet 04/01/2019 12/01/2022 ORAL DAILY 20 MILLIGRAMS 453303 RxNorm TAKE 20 MILLIGRAMS ORAL DAILY ProAir HFA 0.09MG/1Actu ation Inhalation Suspension 04/01/2019 05/12/2022 INHALA TION NEEDED FOUR TIMES A DAY 2 unit(s) 827677 RxNorm 2 EACH INHALATION NEEDED FOUR TIMES A DAY Pregabalin 200MG Oral Capsule 04/01/2019 07/27/2023 ORAL THREE TIMES A DAY 200 MILLIGRAMS 798775 RxNorm TAKE 200 MILLIGRAMS ORAL THREE TIMES A DAY DULoxetine HCl 60MG Oral Capsule, Delayed Release 10/22/2019 07/27/2023 ORAL DAILY 60 MILLIGRAMS 189819 RxNorm TAKE 60 MILLIGRAMS ORAL DAILY QUEtiapine Fumarate 300MG Oral Tablet 10/22/2019 05/12/2022 ORAL BEDTIME 300 MILLIGRAMS 949988 RxNorm TAKE 300 MILLIGRAMS ORAL BEDTIME Nicoderm CQ 14MG/24HR Transdermal Patch, Extended Release 01/15/2021 02/12/2022 TRANSD ERMAL DAILY 1 unit(s) RxNorm APPLY 1 EACH TRANSDERMAL DAILY Ibuprofen 200MG Oral Tablet 01/15/2021 11/25/2022 ORAL NEEDED THREE TIMES A DAY 600 MILLIGRAMS 972967 RxNorm TAKE 600 MILLIGRAMS ORAL NEEDED THREE TIMES A DAY LORazepam 0.5MG Oral Tablet 01/15/2021 05/12/2022 ORAL NEEDED TWICE DAILY 0.5 MILLIGRAMS 430648 RxNorm TAKE 0.5 MILLIGRAMS ORAL NEEDED TWICE DAILY Anoro Ellipta 62.5MCG-25MC G/1ACT Inhalation Powder 10/05/2021 07/27/2023 INHALA TION TWICE A DAY 1 PUFF 2720123 RxNorm 1 PUFF INHALATION TWICE A DAY Albuterol Sulfate 0.083% Inhalation Solution 10/05/2021 11/25/2022 INHALA TION NEEDED EVERY 4 HOURS 1 unit(s) 448984 RxNorm 1 EACH INHALATION NEEDED EVERY 4 HOURS Methadone HCl 40MG Oral Tablet for Suspension 10/05/2021 07/27/2023 ORAL DAILY 132 MILLIGRAMS 620225 RxNorm TAKE 132 MILLIGRAMS ORAL DAILY Doxycycline 100MG Oral Capsule 12/10/2021 12/21/2021 ORAL TWICE A DAY 1 CAPSULE 4066601 RxNorm TAKE 1 CAPSULE ORAL TWICE A DAY Zonisamide 100MG Oral Capsule 12/22/2021 05/12/2022 ORAL TWICE A DAY 100 MILLIGRAMS 796792 RxNorm TAKE 100 MILLIGRAMS ORAL TWICE A DAY Keflex 500MG Oral Capsule 01/14/2022 02/12/2022 ORAL THREE TIMES A DAY 1 CAPSULE 748401 RxNorm TAKE 1 CAPSULE ORAL THREE TIMES A DAY predniSONE 10MG Oral Tablet 02/16/2022 11/25/2022 ORAL THREE TIMES A DAY WITH FOOD 10 MILLIGRAMS 735100 RxNorm TAKE 10 MILLIGRAMS ORAL THREE TIMES A DAY WITH FOOD SEROquel 300MG Oral Tablet 02/16/2022 12/22/2022 ORAL BEDTIME 300 MILLIGRAMS 058635 RxNorm TAKE 300 MILLIGRAMS ORAL BEDTIME Cephalexin 500MG Oral Capsule 02/16/2022 02/16/2022 ORAL THREE TIMES A DAY 1 CAPSULE 587480 RxNorm TAKE 1 CAPSULE ORAL THREE TIMES A DAY Cephalexin 500MG Oral Capsule 02/16/2022 05/12/2022 ORAL THREE TIMES A DAY 1 CAPSULE 492442 RxNorm TAKE 1 CAPSULE ORAL THREE TIMES A DAY MiraLAX 17GM/1Dose Oral Powder for Solution 05/12/2022 11/25/2022 ORAL DAILY 17 GRAM 546735 RxNorm TAKE 17 GRAM ORAL DAILY Ventolin HFA 0.09MG/1Actu ation Inhalation Suspension 12/01/2022 07/27/2023 INHALA TION 1 unit(s) 453126 RxNorm 1 EACH INHALATION Cefpodoxime Proxetil 200MG Oral Tablet 12/01/2022 12/22/2022 ORAL EVERY 12 HOURS 200 MILLIGRAMS 497911 RxNorm TAKE 200 MILLIGRAMS ORAL EVERY 12 HOURS Ibuprofen 600MG Oral Tablet 12/01/2022 07/27/2023 ORAL NEEDED THREE TIMES A DAY 600 MILLIGRAMS 055160 RxNorm TAKE 600 MILLIGRAMS ORAL NEEDED THREE TIMES A DAY FOR PAIN Combivent Respimat 100MCG-20MCG /1Act Inhalation [place] 12/01/2022 07/27/2023 INHALA TION NEEDED EVERY 8 HOURS 1 unit(s) 7347363 RxNorm 1 EACH INHALATION NEEDED EVERY 8 HOURS Depo-Testost erone Novaplus 200MG/1ML Intramuscula r Oil 12/01/2022 07/27/2023 INTRAM USCULA R 1 unit(s) 479115 RxNorm INJECT 1 EACH INTRAMUSCULA R Flovent 0.22MG/1Actu ation Inhalation Aerosol Powder 12/01/2022 07/27/2023 INHALA TION TWICE A DAY 1 unit(s) 522283 RxNorm 1 EACH INHALATION TWICE A DAY Zonisamide 100MG Oral Capsule 12/01/2022 07/27/2023 ORAL DAILY 200 MILLIGRAMS 190381 RxNorm TAKE 200 MILLIGRAMS ORAL DAILY guaiFENesin 600MG Oral Tablet, Extended Release 12/01/2022 12/01/2022 ORAL NEEDED TWICE DAILY 1 TABLET 633443 RxNorm TAKE 1 TABLET ORAL NEEDED TWICE DAILY FOR COUGH predniSONE 10MG Oral Tablet 12/01/2022 12/01/2022 ORAL DAILY 2 TABLET 616749 RxNorm TAKE 2 TABLET ORAL DAILY X 5 DAYS THEN 1 TAB DAILY X 5 DAYS THEN STOP guaiFENesin 600MG Oral Tablet, Extended Release 12/01/2022 07/27/2023 ORAL NEEDED TWICE DAILY 1 TABLET 260598 RxNorm TAKE 1 TABLET ORAL NEEDED TWICE DAILY FOR COUGH predniSONE 10MG Oral Tablet 12/01/2022 12/22/2022 ORAL DAILY 2 TABLET 166028 RxNorm TAKE 2 TABLET ORAL DAILY X 5 DAYS THEN 1 TAB DAILY X 5 DAYS THEN STOP Acetaminophe n 500MG Oral Tablet 12/01/2022 07/27/2023 ORAL NEEDED THREE TIMES A DAY 2 TABLET 296164 RxNorm TAKE 2 TABLET ORAL NEEDED THREE TIMES A DAY FOR PAIN Lisinopril 40MG Oral Tablet 12/01/2022 07/27/2023 ORAL DAILY 1 TABLET 055035 RxNorm TAKE 1 TABLET ORAL DAILY predniSONE 20MG Oral Tablet 12/22/2022 04/02/2023 ORAL DAILY 1 TABLET 163665 RxNorm TAKE 3 TABLETS DAILY FOR 3 DAYS, THEN 2 TABLETS DAILY FOR 3 DAYS, THEN 1 TABLET DAILY FOR 3 DAYS Narcan 4MG/0.1ML Nasal [place] 12/30/2022 07/27/2023 NASAL NEEDED 1 SPRAY 2610476 RxNorm SPRAY 1 SPRAY NASAL NEEDED FOR OPIATE OVERDOSE Albuterol Sulfate 0.09MG/1Actu ation Inhalation Suspension 12/30/2022 07/27/2023 INHALA TION NEEDED EVERY 4 HOURS 2 PUFF 2548251 RxNorm 2 PUFF INHALATION NEEDED EVERY 4 HOURS FOR Shortness of breath Cefpodoxime Proxetil 200MG Oral Tablet 04/05/2023 06/04/2023 ORAL TWICE A DAY 1 TABLET 310828 RxNorm TAKE 1 TABLET ORAL TWICE A DAY QUEtiapine 300MG Oral Tablet 04/05/2023 07/27/2023 ORAL BEDTIME 300 MILLIGRAMS 959255 RxNorm TAKE 300 MILLIGRAMS ORAL BEDTIME predniSONE 10MG Oral Tablet 04/05/2023 06/04/2023 ORAL TWICE A DAY 2 TABLET 125191 RxNorm TAKE 2 TABLET ORAL TWICE A DAY for 3 days then 2 tabs daily x 3 days then 1 tab daily x 3 days Senna Plus 50MG-8.6MG Oral Tablet 04/05/2023 07/27/2023 ORAL TWICE A DAY 2 TABLET 817537 RxNorm TAKE 2 TABLET ORAL TWICE A DAY busPIRone 15MG Oral Tablet 04/05/2023 07/27/2023 ORAL THREE TIMES A DAY 15 MILLIGRAMS 590366 RxNorm TAKE 15 MILLIGRAMS ORAL THREE TIMES A DAY oxygen 04/05/2023 Unknown ORAL continu ous 3 LITERS RxNorm TAKE 3 LITERS ORAL continuous Milk Of Magnesia 400MG/5ML Oral Suspension 06/13/2023 07/27/2023 ORAL NEEDED DAILY 30 mL 404066 RxNorm TAKE 30 mL ORAL NEEDED DAILY predniSONE 20MG Oral Tablet 07/27/2023 10/16/2023 ORAL DAILY 2 TABLET 062216 RxNorm TAKE 2 TABLET ORAL DAILY predniSONE 20MG Oral Tablet 09/15/2023 10/16/2023 ORAL DAILY 2 TABLET 147615 RxNorm TAKE 2 TABLET ORAL DAILY Ibuprofen 200MG Oral Tablet 10/22/2023 Unknown ORAL NEEDED THREE TIMES A DAY 3 TABLET 253709 RxNorm TAKE 3 TABLET ORAL NEEDED THREE TIMES A DAY predniSONE 10MG Oral Tablet 10/22/2023 12/01/2023 ORAL TWICE A DAY 2 TABLET 413169 RxNorm TAKE 2 TABLET ORAL TWICE A DAY x 3 days then 1 tab twice a day x 5 days then 1 tab daily LORazepam 1MG Oral Tablet 10/22/2023 Unknown ORAL NEEDED TWICE DAILY 1 MILLIGRAMS 292072 RxNorm TAKE 1 MILLIGRAMS ORAL NEEDED TWICE DAILY Cefpodoxime Proxetil 200MG Oral Tablet 10/22/2023 11/28/2023 ORAL EVERY 12 HOURS 200 MILLIGRAMS 933579 RxNorm TAKE 200 MILLIGRAMS ORAL EVERY 12 HOURS Anoro Ellipta 62.5MCG-25MC G/1ACT Inhalation Powder 10/22/2023 Unknown INHALA TION DAILY 1 GRAM 2217760 RxNorm 1 GRAM INHALATION DAILY DULoxetine HCl 60MG Oral Capsule, Delayed Release 10/22/2023 Unknown ORAL DAILY 60 MILLIGRAMS 511638 RxNorm TAKE 60 MILLIGRAMS ORAL DAILY Linzess 145MCG Oral Capsule 10/22/2023 10/27/2023 ORAL DAILY 1 unit(s) 0731333 RxNorm TAKE 1 E ACH ORAL DAILY Lisinopril 40MG Oral Tablet 10/22/2023 Unknown ORAL DAILY 40 MILLIGRAMS 676692 RxNorm TAKE 40 MILLIGRAMS ORAL DAILY Methadone 10MG Oral Tablet 10/22/2023 Unknown ORAL DAILY 132 MILLIGRAMS RxNorm TAKE 132 MILLIGRAMS ORAL DAILY Pregabalin 200MG Oral Capsule 10/22/2023 Unknown ORAL THREE TIMES A DAY 200 MILLIGRAMS 456190 RxNorm TAKE 200 MILLIGRAMS ORAL THREE TIMES A DAY QUEtiapine Fumarate 300MG Oral Tablet 10/22/2023 Unknown ORAL BEDTIME 300 MILLIGRAMS 016823 RxNorm TAKE 300 MILLIGRAMS ORAL BEDTIME Testosterone Cypionate 200MG/1ML Intramuscula r Oil 10/22/2023 Unknown 9520027 RxNorm As directed Ventolin HFA 0.09MG/1Actu ation Inhalation Suspension 10/22/2023 Unknown INHALA TION NEEDED EVERY 4 HOURS 2 PUFF 539111 RxNorm 2 PUFF INHALATION NEEDED EVERY 4 HOURS Acetaminophe n 500MG Oral Tablet 10/22/2023 Unknown ORAL THREE TIMES A DAY 2 TABLET 342081 RxNorm TAKE 2 TABLET ORAL THREE TIMES A DAY predniSONE 10MG Oral Tablet 12/01/2023 12/07/2023 ORAL DAILY 4 TABLET 437662 RxNorm TAKE 4 TABLET ORAL DAILY x 3 days then 2 tabs daily x 3 days then 1 tab daily x 7 days Cefpodoxime Proxetil 200MG Oral Tablet 12/01/2023 12/07/2023 ORAL TWICE A DAY 1 TABLET 347782 RxNorm TAKE 1 TABLET ORAL TWICE A DAY levoFLOXacin 750MG Oral Tablet 12/25/2023 Unknown ORAL DAILY 1 TABLET 500842 RxNorm TAKE 1 TABLET ORAL DAILY predniSONE 50MG Oral Tablet 12/25/2023 Unknown ORAL DAILY 1 TABLET 867195 RxNorm TAKE 1 TABLET ORAL DAILY Assessment [...] Date Status Code Code System PNEUMONIA active 490668484 SNOMED-CT POLYSUBSTANCE ABUSE active 214519182 SNOMED-CT ACUTE AND CHRONIC RESPIRATORY FAILURE WITH HYPERCAPNIA active 4655200870726 SNOMED-CT ACUTE AND CHRONIC RESPIRATORY FAILURE WITH HYPOXIA active 82837569 SNOMED-CT COPD WITH EXACERBATION active 0762298 07 SNOMED-CT ALCOHOL USE WITH WITHDRAWAL active 115290424 SNOMED-CT CHRONIC RESPIRATORY FAILURE WITH HYPOXIA 10/03/2021 resolved 07494191 SNOMED- CT OTHER SEIZURES 10/03/2021 resolved 85086188 SNOM ED-CT PULMONARY NODULE 10/03/2021 resolved 017163907 SN OMED-CT CHRONIC HEPATITIS C 10/03/2021 resolved 157747168 SNOMED-CT ANXIETY DISORDER 10/03/2021 resolved 326054918 SN OMED-CT 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 10/03/2021 resolved 051697305548683 SNOME D-CT NICOTINE DEPENDENCE 01/13/2021 resolved 29741021 SNOMED-CT VENOUS INSUFFICIENCY 10/03/2021 resolved 25054210 SNOMED-CT ALCOHOL INTOXICATION 11/26/2022 resolved 51525854 SNOMED-CT AMS 11/26/2022 resolved [id number] SNOMED-CT HYPOKALEMIA 11/26/2022 resolved [id number] SNOMED- CT OPIATE TOXICITY 06/04/2023 resolved [id number] SNO MED-CT ACUTE ALCOHOL INTOXICATION 04/01/2023 resolved [id number] SNOMED-CT FEVER 06/04/2023 resolved [id number] SNOMED-CT ALTERED MENTAL STATUS 06/04/2023 resolved 4035462 04 SNOMED-CT CHRONIC HEADACHE DISORDER 10/03/2021 resolved 270560425 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 418215 00 SNOMED-CT ALCOHOL DEPENDENCE WITH WITHDRAWAL 01/13/2021 resolved [id number] SNOMED-CT HTN 10/03/2021 resolved [id number] SNOMED-CT COPD 09/09/2021 resolved 36154700 SNOMED-CT HIGH CHOLESTEROL 09/09/2021 resolved 87748566 SN OMED-CT Allergies and Adverse Reactions Allergy Substance Reaction Severity Start Date Concern Status Code Code System PCN (penicillin) Anaphylaxis (SNOMED-CT: 86335823) Moderate Active 9679333 SNOMED-CT Plan of Treatment X-RAY 03/21/2022 MRI BRAIN W WO CONTRAST 12/06/2021 MRI BRAIN W WO CONTRAST 11/30/2021 LAB DRAW 15MIN 05/13/2021 Plan Alcohol intoxication: cont IV fluids, supplemental Oxygen ARF with hypoxia and hypercapnia: cont supplemental O2 - pt is O2 dependent but not compliant. keep sats 88-92% Polysubstance abuse on MAT: Consider pt compliance and danger of OD while on methadone. This is pt's 3rd hospitalization with presentation of minimally responsive. Pt was seen in ED on 12/10/21, started on doxycycline for possible cellulitis of stump. Unable to discern if he took these meds. POssible PNA seen on CAR - cont ceftriaxone COPD ; nebs QID and PRN Encounters Encounter Diagnosis Start Date Code Code Sys tem Acute and chronic respiratory failure with hypoxia SNOMED-CT Personal Care Team Section Performer Name Performer Role Active Date Inactive Da te History and Physical Notes [facility] 12/22/2021 07:31 Patient Name Age Sex Admission Date/Time ANTONIO DAUGHERTY 1975 46 years Male 12/21/2021 11:50 12/21/2021 21:07 Admission Date: 12/21/2021 Reason for Admission: Narcotic OD, Alcohol intoxication Code Status: Full Code Attending Physician: Gunnar Atwood MD Primary Care Physician: RAMIN Walsh History of Present Illness Chief Complaint: AMS 46 yr/o male with COPD - home O2 dependent at 2L via nasal cannula, nonepileptic seizure disorder, chronic pain syndrome, hx of polysubstance use disorder on methadone, hep C s/p treatment without viral load, presents via EMS after being found minimally responsive and slumped over on a doorstep. He was able to answer some of their questions at that time. When he arrived at the ED, he was not responsive to verbal or painful stimuli, and had a RR of 8-10. He received 0.4mg IV narcan with good response. This lasted approx 45 minutes, before he required a second dose. He again responded well, but it was clear that he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
--- OUTSIDE RECORDS SUMMARY | 2024-02-29 09:07 | XMS_ITS ---
Author Organization Unknown Address [address] [place] [phone] Phone Care Team Providers Care Green Belt Name Role Phone NAFISA STRATTON Registered Nurse Unavailable CHELSY ANN Registered Nurse Unav ailable ARACELY TENORIO Registered Nurse Unavailable HUBERT FELDER Registered Nurse Unavailable KAMLA Clay Attending Unavailable ADRIANNA Mendieta [facility] Unavailable RAMIN Walsh Primary Unavailable CLAU Mendieta Xhandoff Unavailable UNLISTED PROVIDER - REQUESTED Xhandoff Un available Immunization Immunization Date Status Additional Notes Code Code System Tdap 10/03/2021 Completed 115 CVX Tdap 01/14/2022 Completed 115 CVX Results [facility] COVID RHEONIX* - Alena ect Date/Time: 11/14/2021 23:23 [facility] ID: [id number] [address] [place] [address], [phone] LOINC: 75020-7 Test Value Unit Reference Range Code Code System Flag Tier- INPATIENT/ED 36329-7 LOINC SARS COV2 RNA: NEGATIVE REFERENCE RAN GE: NEGAT 29769-3 LOINC ORDER VENOUS BLOOD GAS* - Co llect Date/Time: 11/14/2021 22:30 [facility] ID: [id number] [address] [place] [address], [phone] LOINC: Test Value Unit Reference Range Code Code System Flag Specimen type: VENOUS pH (venous) 7.33 L=7.31 H=7.41 2746-6 LOINC PCO2 (venous) 61.0 mm Hg L=41.0 H=51.0 2703-7 LOINC H PO2 (venous) L=30 H=50 HCO3 32 mmol/L L=22 H=26 1960-4 LOINC H TCO2 (venous) 34 mmol/L L=22 H=28 3533-7 LOINC H BASE EXCESS (venous) 6 mmol/L L=-2 H=3 3097-3 LOINC H Assist vent. Resp. Rate /min. Temp. DRUG SCN 13 PANEL (MEDTOX)* - Collect Date/Time: 11/14/2021 22:17 [facility] ID: [id number] [address] [place], [place], [phone] LOINC: 25413-8 Test Value Unit Reference Range Code Code System Flag CANNABINOIDS POSITIVE Cutoff = 50 ng/mL 54081-0 LOINC A PHENCYCLIDINE NEGATIVE Cutoff = 25 ng/mL 11080-7 LOINC COCAINE NEGATIVE Cutoff = 150 ng/mL 48086-7 LOINC METHAMPHETAMINES NEGATIVE Cutoff = 50 0 ng/mL 00542-1 LOINC OPIATES NEGATIVE Cutoff = 100 ng/mL 84063-1 LOINC AMPHETAMINES NEGATIVE Cutoff = 500 ng/mL 84434-1 LOINC BENZODIAZEPINES NEGATIVE Cutoff = 150 ng/mL 72851-4 LOINC TRICYCLIC ANTIDEP NEGATIVE Cutoff = 3 00 ng/mL 3533-7 LOINC METHADONE POSITIVE Cutoff = 200 ng/mL 94157-5 LOINC A BARBITURATES NEGATIVE Cutoff = 200 ng/mL 41719-0 LOINC OXYCODONE NEGATIVE Cutoff = 100 ng/mL 94837-9 LOINC PROPOXYPHENE NEGATIVE Cutoff = 300 ng/mL 81449-5 LOINC BUPRENORPHINE NEGATIVE Cutoff = 10 mg/mL 3414-0 LOINC ACETAMINOPHEN* - Collect Roby e/Time: 11/14/2021 20:26 [facility] ID: [id number] [address] [place], [place], [address] LOINC: 3298-7 Test Value Unit Reference Range Code Code System Flag ACETAMINOPHEN < 2.0 ug/mL L=10.0 H=20.0 3298-7 LOINC L SALICYLATE SERUM* - Collect Date/Time: 11/14/2021 20:26 [facility] ID: [id number] [address] [place], [place], [address] LOINC: 4024-6 Test Value Unit Reference Range Code Code System Flag SALICYLATE 2.8 mg/dL L=15.0 H=30.0 4024-6 LOINC L COMPREHENSIVE METABOLIC PANE L (CMP) - Collect Date/Time: 11/14/2021 20:26 [facility] ID: [id number] [address] [place], [place], [address] LOINC: 15399-2 Test Value Unit Reference Range Code Code System Flag GLUCOSE 93 mg/dL L=70 H=116 2345-7 LOINC BUN 5 mg/dL L=6 H=25 3094-0 LOINC L CREATININE 0.62 mg/dL L=0.67 H=1.17 2160-0 LOINC L SODIUM SERUM 140 mmol/L L=136 H=145 2951-2 LOINC POTASSIUM SERUM 4.0 mmol/L L=3.4 H=5.2 2823-3 LOINC CHLORIDE SERUM 101 mmol/L L=96 H=110 2075-0 LOINC CARBON DIOXIDE (CO2) 31 mmol/L L=22 H=34 2028-9 LOINC ANION GAP 8.1 mmol/L 68359-1 LOINC CALCIUM SERUM 8.1 mg/dL L=8.2 H=10.2 57040-0 LOINC L BILIRUBIN TOTAL 0.2 mg/dL L=0.0 H=1.3 1975-2 LOINC ALK. PHOS. 68 U/L L=46 H=116 6768-6 LOINC SGOT (AST) 11 U/L L=15 H=37 1920-8 LOINC L SGPT (ALT) 15 U/L L=12 H=78 1742-6 LOINC TOTAL PROTEIN 7.6 gm/dL L=6.0 H=8.0 2885-2 LOINC ALBUMIN 3.1 gm/dL L=3.4 H=5.0 1751-7 LOINC L AGE 46 years eGFR (non-Afr.Amer.) > 120 mL/min 64645-4 LOINC eGFR (Afr-Swiss) > 120 mL/min 90436-0 LOINC CBC W/ DIFFERENTIAL* - Colle ct Date/Time: 11/14/2021 20:26 [facility] ID: [id number] [address] [place], [place], [address] LOINC: 48094-0 Test Value Unit Reference Range Code Code System Flag WBC 7.11 th/cmm L=5.00 H=10.00 6690-2 LOINC NEUT % 50.7 % L=40.0 H=80.0 LYMPH % 31.8 % L=10.0 H=50.0 MONO % 7.2 % L=2.0 H=12.0 05663-1 LOINC EOS % 8.0 % L=0.0 H=8.0 BASO % 1.3 % L=0.0 H=3.0 IG % 1.0 % L=0.0 H=1.1 2514-8 LOINC NRBC % 0.0 % L=0.0 H=0.0 76959-2 LOINC NEUT abs count 3.6 th/cmm L=1.6 H=8.4 751-8 LOINC LYMPH abs count 2.3 th/cmm L=1.5 H=4.0 731-0 LOINC MONO abs count 0.5 th/cmm L=0.2 H=1.0 742-7 LOINC EOS abs count 0.6 th/cmm L=0.0 H=0.5 711-2 LOINC H BASO abs count 0.1 th/cmm L=0.0 H=0.2 704-7 LOINC IG abs count 0.1 th/cmm L=0.0 H=0.1 02330-0 LOINC NRBC abs count 0.0 mil/cmm L=0.0 H=0.0 28861-8 LOINC RBC 5.47 mil/cmm L=4.30 H=6.20 789-8 LOINC HEMOGLOBIN 16.9 gm/dL L=13.0 H=17.0 718-7 LOINC HEMATOCRIT 53 % L=45 H=52 4544-3 LOINC H MCV 97 fL L=82 H=92 787-2 LOINC H MCH 30.9 pg L=27.0 H=31.0 785-6 LOINC MCHC 31.8 % L=32.0 H=36.0 786-4 LOINC L RDW-SD 53.8 fL L=39.0 H=49.0 788-0 LOINC H PLATELET COUNT 341 th/cmm L=150 H=450 777-3 LOINC ALCOHOL (ETHANOL)* - Collect Date/Time: 11/14/2021 20:26 [facility] ID: [id number] [address] [place] [address], [address] LOINC: 80872-4 Test Value Unit Reference Range Code Code System Flag ALCOHOL (ETHANOL) 219 mg/dL 80033-3 LOINC LIPASE* - Collect Date/Time: 11/14/2021 20:26 [facility] ID: [id number] [address] [place] [address], [phone] LOINC: 3040-3 Test Value Unit Reference Range Code Code System Flag LIPASE 156 U/L L=73 H=393 AMMONIA - Collect Date/Time: 11/14/2021 20:26 [facility] ID: [id number] [address] [place] [address], [address] LOINC: 00352-7 Test Value Unit Reference Range Code Code System Flag AMMONIA 40 umol/L L=19 H=54 99106-0 LOINC XR PORTABLE CHEST 1V* - Comp leted: 11/15/2021 03:12 LOINC: CHEST SINGLE VIEW - PORTABLE Compared to 10/03/21. The patient is significantly rotated. Heart size upper normal and the mediastinum is not widened. There is interstitial infiltrate throughout the right lung and in lower aspect of the left lung. No large pleural effusions evident. No pneumothorax. There is also plate-like atelectasis in the right lung base again noted. IMPRESSION: Persistent and worsening interstitial disease bilaterally. Recommend non- portable PA and lateral views when clinically possible. Also recommend COVID testing. Dictated by: KAVITA BIGGS MD Transcribed by: [facility] 11/15/21/16:15 D Monday, November 15, 2021 7:37:07 AM [id number] Electronically Reviewed and Signed By: KURT BIGGS MD 11/15/21 17:02 Copy for: 185 HEALTH INFORMATION MGMT DISCHARGED Social History Type Status Start Date End Date Code Code Syst em Smoking History Current every day smoker 577357107 SNOMED CT Smoking History Light tobacco smoker [id number] Smoking History Smoker, current status unknown 25408987 SNOMED CT Sex Male Vital Signs Vital Sign Value Unit Manatee Value Manatee Unit Date/Time Recent/Initial? Code Code System Body Mass Index 28.89 kg/m2 11/14/2021 20:25 Initial 11429 -5 LOINC Systolic Blood Pressure 148 mm[Hg] 11/15/2021 11:46 Most Recent 8480- 6 LOINC Diastolic Blood Pressure 88 mm[Hg] 11/15/2021 11:46 Most Recent 8462- 4 LOINC Systolic Blood Pressure 137 mm[Hg] 11/14/2021 20:25 Initial 8480- 6 LOINC Diastolic Blood Pressure 84 mm[Hg] 11/14/2021 20:25 Initial 8462- 4 LOINC Body Surface Area 2.03 m2 11/14/2021 20:25 Initial 3140- 1 LOINC Height 172.720 0 cm 68.00 in 11/14/2021 20:25 Initial 8302- 2 LOINC O2 Saturation 77 % 2021 11:46 Most Recent 30508 -5 LOINC O2 Saturation 84 % 2021 20:25 Initial 05497 -5 LOINC Inhaled Oxygen Flow Rate 4.00 L/min 11/15/2021 11:46 Most Recent 3151- 8 LOINC Inhaled Oxygen Flow Rate 6.00 L/min 11/14/2021 22:31 Initial 3151- 8 LOINC Pulse 82.0 /min 11/15/2021 11:46 Most Recent 8867- 4 LOINC Pulse 76.0 /min 11/14/2021 20:25 Initial 8867- 4 LOINC Respiration 16 /min 11/16/19 11:46 Most Recent 9279- 1 LOINC Respiration 12 /min 11/15/19 20:25 Initial 9279- 1 LOINC Temperature 37.3 Regina 99.1 F 11/16/19 11:46 Most Recent 8310- 5 [facility] Temperature 36.2 Regina 97.2 F 11/15/19 20:25 Initial 8310- 5 [facility] Weight 86.18 kg 190.00 lbs 11/14/2021 20:25 Initial 65975 -7 [facility] Medications Medication Start Date End Date Route Frequency Dose Code Code System Medication Instructions Home Meds Lisinopril 20MG Oral Tablet 04/01/2019 12/01/2022 ORAL DAILY 20 MILLIGRAMS 539028 RxNorm TAKE 20 MILLIGRAMS ORAL DAILY ProAir HFA 0.09MG/1Actu ation Inhalation Suspension 04/01/2019 05/12/2022 INHALA TION NEEDED FOUR TIMES A DAY 2 unit(s) 200430 RxNorm 2 EACH INHALATION NEEDED FOUR TIMES A DAY Pregabalin 200MG Oral Capsule 04/01/2019 07/27/2023 ORAL THREE TIMES A DAY 200 MILLIGRAMS 444422 RxNorm TAKE 200 MILLIGRAMS ORAL THREE TIMES A DAY QUEtiapine Fumarate 300MG Oral Tablet 10/22/2019 05/12/2022 ORAL BEDTIME 300 MILLIGRAMS 341748 RxNorm TAKE 300 MILLIGRAMS ORAL BEDTIME DULoxetine HCl 60MG Oral Capsule, Delayed Release 10/22/2019 07/27/2023 ORAL DAILY 60 MILLIGRAMS 852680 RxNorm TAKE 60 MILLIGRAMS ORAL DAILY Ibuprofen 200MG Oral Tablet 01/15/2021 11/25/2022 ORAL NEEDED THREE TIMES A DAY 600 MILLIGRAMS 765213 RxNorm TAKE 600 MILLIGRAMS ORAL NEEDED THREE TIMES A DAY LORazepam 0.5MG Oral Tablet 01/15/2021 05/12/2022 ORAL NEEDED TWICE DAILY 0.5 MILLIGRAMS 015495 RxNorm TAKE 0.5 MILLIGRAMS ORAL NEEDED TWICE DAILY Nicoderm CQ 14MG/24HR Transdermal Patch, Extended Release 01/15/2021 02/12/2022 TRANSD ERMAL DAILY 1 unit(s) RxNorm APPLY 1 EACH TRANSDERMAL DAILY Anoro Ellipta 62.5MCG-25MC G/1ACT Inhalation Powder 10/05/2021 07/27/2023 INHALA TION TWICE A DAY 1 PUFF 7573331 RxNorm 1 PUFF INHALATION TWICE A DAY predniSONE 20MG Oral Tablet 10/05/2021 11/14/2021 ORAL DAILY WITH FOOD 20 MILLIGRAMS 258598 RxNorm TAKE 20 MILLIGRAMS ORAL DAILY WITH FOOD Albuterol Sulfate 0.083% Inhalation Solution 10/05/2021 11/25/2022 INHALA TION NEEDED EVERY 4 HOURS 1 unit(s) 447766 RxNorm 1 EACH INHALATION NEEDED EVERY 4 HOURS Methadone HCl 40MG Oral Tablet for Suspension 10/05/2021 07/27/2023 ORAL DAILY 132 MILLIGRAMS 799114 RxNorm TAKE 132 MILLIGRAMS ORAL DAILY Cephalexin 500MG Oral Capsule 10/05/2021 11/14/2021 ORAL THREE TIMES A DAY 1 CAPSULE 191171 RxNorm TAKE 1 CAPSULE ORAL THREE TIMES A DAY Doxycycline 100MG Oral Capsule 12/10/2021 12/21/2021 ORAL TWICE A DAY 1 CAPSULE 9071275 RxNorm TAKE 1 CAPSULE ORAL TWICE A DAY Zonisamide 100MG Oral Capsule 12/22/2021 05/12/2022 ORAL TWICE A DAY 100 MILLIGRAMS 343753 RxNorm TAKE 100 MILLIGRAMS ORAL TWICE A DAY Keflex 500MG Oral Capsule 01/14/2022 02/12/2022 ORAL THREE TIMES A DAY 1 CAPSULE 884167 RxNorm TAKE 1 CAPSULE ORAL THREE TIMES A DAY predniSONE 10MG Oral Tablet 02/16/2022 11/25/2022 ORAL THREE TIMES A DAY WITH FOOD 10 MILLIGRAMS 995323 RxNorm TAKE 10 MILLIGRAMS ORAL THREE TIMES A DAY WITH FOOD SEROquel 300MG Oral Tablet 02/16/2022 12/22/2022 ORAL BEDTIME 300 MILLIGRAMS 129451 RxNorm TAKE 300 MILLIGRAMS ORAL BEDTIME Cephalexin 500MG Oral Capsule 02/16/2022 02/16/2022 ORAL THREE TIMES A DAY 1 CAPSULE 624995 RxNorm TAKE 1 CAPSULE ORAL THREE TIMES A DAY Cephalexin 500MG Oral Capsule 02/16/2022 05/12/2022 ORAL THREE TIMES A DAY 1 CAPSULE 396465 RxNorm TAKE 1 CAPSULE ORAL THREE TIMES A DAY MiraLAX 17GM/1Dose Oral Powder for Solution 05/12/2022 11/25/2022 ORAL DAILY 17 GRAM 162658 RxNorm TAKE 17 GRAM ORAL DAILY Depo-Testost erone Novaplus 200MG/1ML Intramuscula r Oil 12/01/2022 07/27/2023 INTRAM USCULA R 1 unit(s) 243931 RxNorm INJECT 1 EACH INTRAMUSCULA R Cefpodoxime Proxetil 200MG Oral Tablet 12/01/2022 12/22/2022 ORAL EVERY 12 HOURS 200 MILLIGRAMS 932537 RxNorm TAKE 200 MILLIGRAMS ORAL EVERY 12 HOURS Ibuprofen 600MG Oral Tablet 12/01/2022 07/27/2023 ORAL NEEDED THREE TIMES A DAY 600 MILLIGRAMS 983956 RxNorm TAKE 600 MILLIGRAMS ORAL NEEDED THREE TIMES A DAY FOR PAIN Combivent Respimat 100MCG-20MCG /1Act Inhalation Cos Cob 12/01/2022 07/27/2023 INHALA TION NEEDED EVERY 8 HOURS 1 unit(s) 8176431 RxNorm 1 EACH INHALATION NEEDED EVERY 8 HOURS Flovent 0.22MG/1Actu ation Inhalation Aerosol Powder 12/01/2022 07/27/2023 INHALA TION TWICE A DAY 1 unit(s) 189548 RxNorm 1 EACH INHALATION TWICE A DAY Ventolin HFA 0.09MG/1Actu ation Inhalation Suspension 12/01/2022 07/27/2023 INHALA TION 1 unit(s) 472597 RxNorm 1 EACH INHALATION Zonisamide 100MG Oral Capsule 12/01/2022 07/27/2023 ORAL DAILY 200 MILLIGRAMS 087214 RxNorm TAKE 200 MILLIGRAMS ORAL DAILY guaiFENesin 600MG Oral Tablet, Extended Release 12/01/2022 12/01/2022 ORAL NEEDED TWICE DAILY 1 TABLET 658248 RxNorm TAKE 1 TABLET ORAL NEEDED TWICE DAILY FOR COUGH predniSONE 10MG Oral Tablet 12/01/2022 12/01/2022 ORAL DAILY 2 TABLET 720909 RxNorm TAKE 2 TABLET ORAL DAILY X 5 DAYS THEN 1 TAB DAILY X 5 DAYS THEN STOP guaiFENesin 600MG Oral Tablet, Extended Release 12/01/2022 07/27/2023 ORAL NEEDED TWICE DAILY 1 TABLET 461834 RxNorm TAKE 1 TABLET ORAL NEEDED TWICE DAILY FOR COUGH predniSONE 10MG Oral Tablet 12/01/2022 12/22/2022 ORAL DAILY 2 TABLET 041812 RxNorm TAKE 2 TABLET ORAL DAILY X 5 DAYS THEN 1 TAB DAILY X 5 DAYS THEN STOP Acetaminophe n 500MG Oral Tablet 12/01/2022 07/27/2023 ORAL NEEDED THREE TIMES A DAY 2 TABLET 072397 RxNorm TAKE 2 TABLET ORAL NEEDED THREE TIMES A DAY FOR PAIN Lisinopril 40MG Oral Tablet 12/01/2022 07/27/2023 ORAL DAILY 1 TABLET 306038 RxNorm TAKE 1 TABLET ORAL DAILY predniSONE 20MG Oral Tablet 12/22/2022 04/02/2023 ORAL DAILY 1 TABLET 809880 RxNorm TAKE 3 TABLETS DAILY FOR 3 DAYS, THEN 2 TABLETS DAILY FOR 3 DAYS, THEN 1 TABLET DAILY FOR 3 DAYS Narcan 4MG/0.1ML Nasal Cos Cob 12/30/2022 07/27/2023 NASAL NEEDED 1 SPRAY 4335486 RxNorm SPRAY 1 SPRAY NASAL NEEDED FOR OPIATE OVERDOSE Albuterol Sulfate 0.09MG/1Actu ation Inhalation Suspension 12/30/2022 07/27/2023 INHALA TION NEEDED EVERY 4 HOURS 2 PUFF 8921371 RxNorm 2 PUFF INHALATION NEEDED EVERY 4 HOURS FOR Shortness of breath Cefpodoxime Proxetil 200MG Oral Tablet 04/05/2023 06/04/2023 ORAL TWICE A DAY 1 TABLET 380279 RxNorm TAKE 1 TABLET ORAL TWICE A DAY QUEtiapine 300MG Oral Tablet 04/05/2023 07/27/2023 ORAL BEDTIME 300 MILLIGRAMS 008340 RxNorm TAKE 300 MILLIGRAMS ORAL BEDTIME predniSONE 10MG Oral Tablet 04/05/2023 06/04/2023 ORAL TWICE A DAY 2 TABLET 069874 RxNorm TAKE 2 TABLET ORAL TWICE A DAY for 3 days then 2 tabs daily x 3 days then 1 tab daily x 3 days Senna Plus 50MG-8.6MG Oral Tablet 04/05/2023 07/27/2023 ORAL TWICE A DAY 2 TABLET 367622 RxNorm TAKE 2 TABLET ORAL TWICE A DAY busPIRone 15MG Oral Tablet 04/05/2023 07/27/2023 ORAL THREE TIMES A DAY 15 MILLIGRAMS 722813 RxNorm TAKE 15 MILLIGRAMS ORAL THREE TIMES A DAY oxygen 04/05/2023 Unknown ORAL continu ous 3 LITERS RxNorm TAKE 3 LITERS ORAL continuous Milk Of Magnesia 400MG/5ML Oral Suspension 06/13/2023 07/27/2023 ORAL NEEDED DAILY 30 mL 399172 RxNorm TAKE 30 mL ORAL NEEDED DAILY predniSONE 20MG Oral Tablet 07/27/2023 10/16/2023 ORAL DAILY 2 TABLET 797602 RxNorm TAKE 2 TABLET ORAL DAILY predniSONE 20MG Oral Tablet 09/15/2023 10/16/2023 ORAL DAILY 2 TABLET 377318 RxNorm TAKE 2 TABLET ORAL DAILY Ibuprofen 200MG Oral Tablet 10/22/2023 Unknown ORAL NEEDED THREE TIMES A DAY 3 TABLET 085626 RxNorm TAKE 3 TABLET ORAL NEEDED THREE TIMES A DAY predniSONE 10MG Oral Tablet 10/22/2023 12/01/2023 ORAL TWICE A DAY 2 TABLET 991223 RxNorm TAKE 2 TABLET ORAL TWICE A DAY x 3 days then 1 tab twice a day x 5 days then 1 tab daily LORazepam 1MG Oral Tablet 10/22/2023 Unknown ORAL NEEDED TWICE DAILY 1 MILLIGRAMS 542055 RxNorm TAKE 1 MILLIGRAMS ORAL NEEDED TWICE DAILY Cefpodoxime Proxetil 200MG Oral Tablet 10/22/2023 11/28/2023 ORAL EVERY 12 HOURS 200 MILLIGRAMS 259738 RxNorm TAKE 200 MILLIGRAMS ORAL EVERY 12 HOURS Anoro Ellipta 62.5MCG-25MC G/1ACT Inhalation Powder 10/22/2023 Unknown INHALA TION DAILY 1 GRAM 4611881 RxNorm 1 GRAM INHALATION DAILY DULoxetine HCl 60MG Oral Capsule, Delayed Release 10/22/2023 Unknown ORAL DAILY 60 MILLIGRAMS 301982 RxNorm TAKE 60 MILLIGRAMS ORAL DAILY Linzess 145MCG Oral Capsule 10/22/2023 10/27/2023 ORAL DAILY 1 unit(s) 4004198 RxNorm TAKE 1 E ACH ORAL DAILY Lisinopril 40MG Oral Tablet 10/22/2023 Unknown ORAL DAILY 40 MILLIGRAMS 969595 RxNorm TAKE 40 MILLIGRAMS ORAL DAILY Methadone 10MG Oral Tablet 10/22/2023 Unknown ORAL DAILY 132 MILLIGRAMS RxNorm TAKE 132 MILLIGRAMS ORAL DAILY Pregabalin 200MG Oral Capsule 10/22/2023 Unknown ORAL THREE TIMES A DAY 200 MILLIGRAMS 551284 RxNorm TAKE 200 MILLIGRAMS ORAL THREE TIMES A DAY QUEtiapine Fumarate 300MG Oral Tablet 10/22/2023 Unknown ORAL BEDTIME 300 MILLIGRAMS 083823 RxNorm TAKE 300 MILLIGRAMS ORAL BEDTIME Testosterone Cypionate 200MG/1ML Intramuscula r Oil 10/22/2023 Unknown 6699472 RxNorm As directed Ventolin HFA 0.09MG/1Actu ation Inhalation Suspension 10/22/2023 Unknown INHALA TION NEEDED EVERY 4 HOURS 2 PUFF 533475 RxNorm 2 PUFF INHALATION NEEDED EVERY 4 HOURS Acetaminophe n 500MG Oral Tablet 10/22/2023 Unknown ORAL THREE TIMES A DAY 2 TABLET 252728 RxNorm TAKE 2 TABLET ORAL THREE TIMES A DAY predniSONE 10MG Oral Tablet 12/01/2023 12/07/2023 ORAL DAILY 4 TABLET 681388 RxNorm TAKE 4 TABLET ORAL DAILY x 3 days then 2 tabs daily x 3 days then 1 tab daily x 7 days Cefpodoxime Proxetil 200MG Oral Tablet 12/01/2023 12/07/2023 ORAL TWICE A DAY 1 TABLET 070091 RxNorm TAKE 1 TABLET ORAL TWICE A DAY levoFLOXacin 750MG Oral Tablet 12/25/2023 Unknown ORAL DAILY 1 TABLET 897351 RxNorm TAKE 1 TABLET ORAL DAILY predniSONE 50MG Oral Tablet 12/25/2023 Unknown ORAL DAILY 1 TABLET 622067 RxNorm TAKE 1 TABLET ORAL DAILY Assessment [...] Date Status Code Code System PNEUMONIA active 480590123 SNOMED-CT POLYSUBSTANCE ABUSE active 054543220 SNOMED-CT ACUTE AND CHRONIC RESPIRATORY FAILURE WITH HYPERCAPNIA active 2227022895315 SNOMED-CT ACUTE AND CHRONIC RESPIRATORY FAILURE WITH HYPOXIA active 03135376 SNOMED-CT COPD WITH EXACERBATION active 4008867 07 SNOMED-CT ALCOHOL USE WITH WITHDRAWAL active 099209844 SNOMED-CT CHRONIC RESPIRATORY FAILURE WITH HYPOXIA 10/03/2021 resolved 45825470 SNOMED- CT OTHER SEIZURES 10/03/2021 resolved 02605668 SNOM ED-CT PULMONARY NODULE 10/03/2021 resolved 632791449 SN OMED-CT CHRONIC HEPATITIS C 10/03/2021 resolved 123125835 SNOMED-CT ANXIETY DISORDER 10/03/2021 resolved 792362203 SN OMED-CT 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 10/03/2021 resolved 372965766172266 SNOME D-CT NICOTINE DEPENDENCE 01/13/2021 resolved 10160148 SNOMED-CT VENOUS INSUFFICIENCY 10/03/2021 resolved 71869369 SNOMED-CT ALCOHOL INTOXICATION 11/26/2022 resolved 85255919 SNOMED-CT AMS 11/26/2022 resolved 976577863 SNOMED-CT HYPOKALEMIA 11/26/2022 resolved 57771470 SNOMED- CT OPIATE TOXICITY 06/04/2023 resolved 602372515 SNO MED-CT ACUTE ALCOHOL INTOXICATION 04/01/2023 resolved 5871517398 SNOMED-CT FEVER 06/04/2023 resolved 978798420 SNOMED-CT ALTERED MENTAL STATUS 06/04/2023 resolved 8919246 04 SNOMED-CT CHRONIC HEADACHE DISORDER 10/03/2021 resolved 618635677 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 573286 00 SNOMED-CT ALCOHOL DEPENDENCE WITH WITHDRAWAL 01/13/2021 resolved 39138320 SNOMED-CT HTN 10/03/2021 resolved 08729551 SNOMED-CT COPD 09/09/2021 resolved 58992365 SNOMED-CT HIGH CHOLESTEROL 09/09/2021 resolved 23771486 SN OMED-CT Allergies and Adverse Reactions Allergy Substance Reaction Severity Start Date Concern Status Code Code System PCN (penicillin) Anaphylaxis (SNOMED-CT: 99687343) Moderate Active 1963050 SNOMED-CT Plan of Treatment X-RAY 03/21/2022 MRI BRAIN W WO CONTRAST 12/06/2021 MRI BRAIN W WO CONTRAST 11/30/2021 LAB DRAW 15MIN 05/13/2021 Plan Alcohol intoxication: Pt not tolerating IV fluids, ripping out his IV. Will take time to sober up ARF with hypoxia and hypercapnia: cont supplemental O2 - pt is O2 dependent but not compliant. keep sats 88-92% Polysubstance abuse on MAT: pt had bottle of methadone and lorazepam confiscated in ED. Recommend to dispose of meds and administer his methadone dose here tomorrow morning and have him f/u with [facility] on Monday Encounters Encounter Diagnosis Start Date Code Code Sys tem Poisoning by methadone, acci dental (unintentional), initial encounter 11/14/2021 SNOMED-CT Personal Care Team Section Performer Name Performer Role Active Date Inactive Da te History and Physical Notes [facility] 11/15/2021 07:34 Patient Name Age Sex Admission Date/Time ANTONIO DAUGHERTY 1975 46 years Male 11/14/2021 19:52 11/14/2021 22:43 Admission Date: 11/14/2021 Reason for Admission: Acute on chronic respiratory failure with hypoxia and hypercapnia, intoxication Code Status: Full Code Attending Physician: Gunnar Atwood MD Primary Care Physician: RAMIN Walsh History of Present Illness Chief Complaint: ALTERED MENTAL STATUS 46 yr/o male with COPD - home O2 dependent at 2L via nasal cannula, nonepileptic seizure disorder, chronic pain syndrome, hx of polysubstance use disorder on methadone, hep C s/p treatment without viral load, presents with intoxication and ARF with hypoxia and hypercapnia. Pt is well known to [facility] with multiple chronic medical problems, medical noncompliance, and narcotic seeking behavior. 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 He was brought to the ER because he had a respiratory rate of 10 and O2 sat in low 80's in the field. Pt is on home O2 but is rarely compliant with wearing it. He was noted to have a blood alcohol level of 219 this evening - although denying alcohol use. He was was given 3 doses of narcan with minimal clearing of his mental status. He is satting 88-90% on 3L O2 and refusing BiPap for PCO2 of 61. He was also found trying to open a bottle of methadone he had in his pocket while in the ED as well as a bottle of lorazepam. Past Medical/Surgical/Family/Social History PMH Nicotine dependence, Secondary [...] headache disorder, , Postconcussive headache Venous insufficiency, Surgery List Amputated below knee, , Right [...] MOTHER Past Social History: Pt lives in [place] with friends. 30+ pack year history of tobacco use, states he quit a couple years ago but still smokes once every month or so. Hx of polysubstance use disorder including opiates and alcohol. On methadone from the [facility] in [facility]. Endorses marijuana use ~once a week. Allergy List PCN (penicillin), medication Active Home Meds Methadone HCl 40MG Oral Tablet for Suspension, [...] List Pharmacy [facility] or Facility list Review of Systems unable to obtain 2/2 pt's AMS Physical Exam Date/Time BP (mm/Hg) Heart Rate Resp Temp (?C) SPO2% O2 Device 11/14/2021 20:25 137/84 76 12 36.2 Tympanic 84 % Room Air 21% GENERAL: Adult Male, somnolent, difficult to keep [...] bowel sounds x4Q. 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 NEUROLOGIC: Muscle strength is graded 5/5 in [...] L mg/dL L=15.0 H=30.0 11/14/2021 20:26 Radiology/EKG: Problem List Alcohol intoxication Acute and chronic respiratory failure with hypercapnia Alcohol abuse Acute and chronic respiratory failure with hypoxia Polysubstance abuse Plan Alcohol intoxication: Pt not tolerating IV fluids, ripping out his IV. Will take time to sober up ARF with hypoxia and hypercapnia: cont supplemental O2 - pt is O2 dependent but not compliant. keep sats 88-92% Polysubstance abuse on MAT: pt had bottle of methadone and lorazepam confiscated in ED. Recommend to dispose of meds and administer his methadone dose here tomorrow morning and have him f/u with [facility] on Monday Patient admitted as observation as I anticipate them to be here less than 2 midnights due to symptoms of ARF with hypoxia and hypercapnia, Alcohol intoxication.
--- OUTSIDE RECORDS SUMMARY | 2024-02-29 09:07 | XMS_ITS ---
Author Organization Unknown Address [address] [place] [phone] Phone Care Team Providers Care Ethernet Network Architect Name Role Phone JERRICA Kendell OWEN Registered Nurse Unavailable Unavailable [facility] Unavailable ADRIANNA Mendieta Attending Unavailable [facility] Unavailable RAMIN Walsh Primary Unavailable UNLISTED PROVIDER - REQUESTED Xhandoff Un available Immunization Immunization Date Status Additional Notes Code Code System Tdap 10/03/2021 Completed 115 CVX Tdap 01/14/2022 Completed 115 CVX Results BASIC METABOLIC PANEL (BMP) - Collect Date/Time: 10/04/2021 06:20 [facility] ID: [id number] [address] [place] [address], [address] LOINC: 62875-2 Test Value Unit Reference Range Code Code System Flag GLUCOSE 92 mg/dL L=70 H=116 2345-7 LOINC BUN 9 mg/dL L=6 H=25 3094-0 LOINC CREATININE 0.72 mg/dL L=0.67 H=1.17 2160-0 LOINC SODIUM SERUM 138 mmol/L L=136 H=145 2951-2 LOINC POTASSIUM SERUM 3.8 mmol/L L=3.4 H=5.2 2823-3 LOINC CHLORIDE SERUM 102 mmol/L L=96 H=110 2075-0 LOINC CARBON DIOXIDE (CO2) 28 mmol/L L=22 H=34 2028-9 LOINC ANION GAP 7.9 mmol/L 64184-4 LOINC CALCIUM SERUM 8.5 mg/dL L=8.2 H=10.2 47390-2 LOINC AGE 46 years eGFR (non-Afr.Amer.) 117 mL/min 70952-2 LOINC eGFR (Afr-Tuvaluan) > 120 mL/min 03874-7 LOINC CBC W/ DIFFERENTIAL* - Colle ct Date/Time: 10/04/2021 06:20 [facility] ID: [id number] [address] [place], [place], [address] LOINC: 99503-4 Test Value Unit Reference Range Code Code System Flag WBC 7.48 th/cmm L=5.00 H=10.00 6690-2 LOINC NEUT % 72.3 % L=40.0 H=80.0 LYMPH % 15.5 % L=10.0 H=50.0 MONO % 11.1 % L=2.0 H=12.0 14047-5 LOINC EOS % 0.4 % L=0.0 H=8.0 BASO % 0.4 % L=0.0 H=3.0 IG % 0.3 % L=0.0 H=1.1 2514-8 LOINC NRBC % 0.0 % L=0.0 H=0.0 12810-2 LOINC NEUT abs count 5.4 th/cmm L=1.6 H=8.4 751-8 LOINC LYMPH abs count 1.2 th/cmm L=1.5 H=4.0 731-0 LOINC L MONO abs count 0.8 th/cmm L=0.2 H=1.0 742-7 LOINC EOS abs count 0.0 th/cmm L=0.0 H=0.5 711-2 LOINC BASO abs count 0.0 th/cmm L=0.0 H=0.2 704-7 LOINC IG abs count 0.0 th/cmm L=0.0 H=0.1 76874-7 LOINC NRBC abs count 0.0 mil/cmm L=0.0 H=0.0 91567-1 LOINC RBC 4.88 mil/cmm L=4.30 H=6.20 789-8 LOINC HEMOGLOBIN 16.4 gm/dL L=13.0 H=17.0 718-7 LOINC HEMATOCRIT 51 % L=45 H=52 4544-3 LOINC MCV 104 fL L=82 H=92 787-2 LOINC H MCH 33.6 pg L=27.0 H=31.0 785-6 LOINC H MCHC 32.4 % L=32.0 H=36.0 786-4 LOINC RDW-SD 55.1 fL L=39.0 H=49.0 788-0 LOINC H PLATELET COUNT 193 th/cmm L=150 H=450 777-3 LOINC [facility] COVID RHEONIX* - Alena ect Date/Time: 10/03/2021 16:36 [facility] ID: [id number] [address], [place], [phone] LOINC: 47904-1 Test Value Unit Reference Range Code Code System Flag Tier- INPATIENT/ED 69261-2 LOINC SARS COV2 RNA: NEGATIVE REFERENCE RAN GE: NEGAT 19226-4 LOINC GRAM STAIN* - Collect Date/T vannessa: 10/03/2021 14:40 [facility] ID: [id number] [address] [place] [address], [id number] LOINC: 664-3 Test Value Unit Reference Range Code Code System Flag SOURCE- Other WBC s few [employer] Gram neg rods CORRECTED CBC W/ DIFFERENTIAL* - Colle ct Date/Time: 10/03/2021 13:40 [facility] ID: [id number] [address] [place] [address], [address] LOINC: 59336-0 Test Value Unit Reference Range Code Code System Flag WBC 9.74 th/cmm L=5.00 H=10.00 6690-2 LOINC NEUT % 69.2 % L=40.0 H=80.0 LYMPH % 15.9 % L=10.0 H=50.0 MONO % 9.8 % L=2.0 H=12.0 63521-3 LOINC EOS % 4.3 % L=0.0 H=8.0 BASO % 0.6 % L=0.0 H=3.0 IG % 0.2 % L=0.0 H=1.1 2514-8 LOINC NRBC % 0.0 % L=0.0 H=0.0 58624-6 LOINC NEUT abs count 6.7 th/cmm L=1.6 H=8.4 751-8 LOINC LYMPH abs count 1.6 th/cmm L=1.5 H=4.0 731-0 LOINC MONO abs count 1.0 th/cmm L=0.2 H=1.0 742-7 LOINC EOS abs count 0.4 th/cmm L=0.0 H=0.5 711-2 LOINC BASO abs count 0.1 th/cmm L=0.0 H=0.2 704-7 LOINC IG abs count 0.0 th/cmm L=0.0 H=0.1 69654-0 LOINC NRBC abs count 0.0 mil/cmm L=0.0 H=0.0 23061-7 LOINC RBC 4.90 mil/cmm L=4.30 H=6.20 789-8 LOINC HEMOGLOBIN 16.6 gm/dL L=13.0 H=17.0 718-7 LOINC HEMATOCRIT 51 % L=45 H=52 4544-3 LOINC MCV 104 fL L=82 H=92 787-2 LOINC H MCH 33.9 pg L=27.0 H=31.0 785-6 LOINC H MCHC 32.5 % L=32.0 H=36.0 786-4 LOINC RDW-SD 56.2 fL L=39.0 H=49.0 788-0 LOINC H PLATELET COUNT 235 th/cmm L=150 H=450 777-3 LOINC COMPREHENSIVE METABOLIC PANE L (CMP) - Collect Date/Time: 10/03/2021 13:40 [facility] ID: [id number] [address], [place], [address] LOINC: 08323-1 Test Value Unit Reference Range Code Code System Flag GLUCOSE 93 mg/dL L=70 H=116 2345-7 LOINC BUN 7 mg/dL L=6 H=25 3094-0 LOINC CREATININE 0.89 mg/dL L=0.67 H=1.17 2160-0 LOINC SODIUM SERUM 146 mmol/L L=136 H=145 2951-2 LOINC H POTASSIUM SERUM 3.4 mmol/L L=3.4 H=5.2 2823-3 LOINC CHLORIDE SERUM 102 mmol/L L=96 H=110 2075-0 LOINC CARBON DIOXIDE (CO2) 32 mmol/L L=22 H=34 2028-9 LOINC ANION GAP 12.1 mmol/L 09964-2 LOINC CALCIUM SERUM 8.6 mg/dL L=8.2 H=10.2 90576-0 LOINC BILIRUBIN TOTAL 0.5 mg/dL L=0.0 H=1.3 1975-2 LOINC ALK. PHOS. 89 U/L L=46 H=116 6768-6 LOINC SGOT (AST) 17 U/L L=15 H=37 1920-8 LOINC SGPT (ALT) 13 U/L L=12 H=78 1742-6 LOINC TOTAL PROTEIN 7.2 gm/dL L=6.0 H=8.0 2885-2 LOINC ALBUMIN 3.5 gm/dL L=3.4 H=5.0 1751-7 LOINC AGE 46 years eGFR (non-Afr.Amer.) 91 mL/min 10002-7 LOINC eGFR (Afr-Tuvaluan) 110 mL/min 15209-3 LOINC ALCOHOL (ETHANOL)* - Collect Date/Time: 10/03/2021 13:40 [facility] ID: [id number] [address] [place] [address], [address] LOINC: 75915-4 Test Value Unit Reference Range Code Code System Flag ALCOHOL (ETHANOL) 189 mg/dL 97528-2 [facility] XR PORTABLE CHEST 1V* - Comp leted: 10/03/2021 13:48 LOINC: CHEST - SINGLE VIEW - PORTAB LE: Compared to prior chest x-rays dating back to December 2020. Heart size is upper normal and the mediastinum is not widened. There is atelectasis or scarring again noted in both lung bases. No obvious pleural effusions. No pulmonary edema. IMPRESSION:Persistent atelectasis in both lung bases. No obvious pleural effusions. If clinically indicated followup CT scan could be performed to compare to the CT scan of 09/09/21. Dictated by: KAVITA BIGGS MD Transcribed by: JUSTIN 10/05/2107:41 D Sunday, October 03, 2021 1:53:43 PM [id number] Electronically Reviewed and Signed By: KURT BIGGS MD 10/06/21 20:54 Copy for: 185 HEALTH INFORMATION MGMT DISCHARGED Social History Type Status Start Date End Date Code Code Syst em Smoking History Current every day smoker 950583040 SNOMED CT Smoking History Light tobacco smoker [id number] Smoking History Smoker, current status unknown 05175659 SNOMED CT Sex Male Vital Signs Vital Sign Value Unit [place]go Value [place]go Unit Date/Time Recent/Initial? Code Code System Body Mass Index 27.78 kg/m2 10/04/2021 10:56 Most Recent 58598 -5 LOINC Body Mass Index 28.29 kg/m2 10/03/2021 13:05 Initial 18568 -5 LOINC Systolic Blood Pressure 165 mm[Hg] 10/05/2021 07:37 Most Recent 8480- 6 LOINC Diastolic Blood Pressure 96 mm[Hg] 10/05/2021 07:37 Most Recent 8462- 4 LOINC Systolic Blood Pressure 133 mm[Hg] 10/03/2021 13:05 Initial 8480- 6 LOINC Diastolic Blood Pressure 84 mm[Hg] 10/03/2021 13:05 Initial 8462- 4 LOINC Body Surface Area 1.99 m2 10/04/2021 10:56 Most Recent 3140- 1 LOINC Body Surface Area 2.01 m2 10/03/2021 13:05 Initial 3140- 1 LOINC Height 172.720 0 cm 68.00 in 10/04/2021 10:56 Most Recent 8302- 2 LOINC Height 172.720 0 cm 68.00 in 10/03/2021 13:05 Initial 8302- 2 LOINC O2 Saturation 90 % 2021 11:41 Most Recent 96089 -5 LOINC O2 Saturation 83 % 2021 13:05 Initial 94188 -5 LOINC Inhaled Oxygen Flow Rate 2.50 L/min 10/05/2021 11:41 Most Recent 3151- 8 LOINC Inhaled Oxygen Flow Rate 3.00 L/min 10/03/2021 17:22 Initial 3151- 8 LOINC Pulse 84.0 /min 10/05/2021 11:41 Most Recent 8867- 4 LOINC Pulse 93.0 /min 10/03/2021 13:05 Initial 8867- 4 LOINC Respiration 18 /min 10/06/19 22 11:41 Most Recent 9279- 1 LOINC Respiration 22 /min 10/04/19 22 13:05 Initial 9279- 1 LOINC Temperature 36.5 Regina 97.7 F 10/06/19 22 07:37 Most Recent 8310- 5 LOINC Temperature 36.4 Regina 97.5 F 10/04/19 22 13:05 Initial 8310- 5 LOINC Weight 82.87 kg 182.70 lbs 10/04/2021 10:56 Most Recent 59791 -7 LOINC Weight 84.40 kg 186.07 lbs 10/03/2021 13:05 Initial 72644 -7 INC Medications Medication Start Date End Date Route Frequency Dose Code Code System Medication Instructions Home Meds Lisinopril 20MG Oral Tablet 04/01/2019 12/01/2022 ORAL DAILY 20 MILLIGRAMS 385103 RxNorm TAKE 20 MILLIGRAMS ORAL DAILY Ipratropium Dixon-Albu terol Sulfate 0.5MG/3ML-3M G/3ML Inhalation Solution 04/01/2019 10/03/2021 INHALA TION FOUR TIMES A DAY 1 unit(s) 1351288 RxNorm 1 EACH INHALATION FOUR TIMES A DAY Pregabalin 200MG Oral Capsule 04/01/2019 07/27/2023 ORAL THREE TIMES A DAY 200 MILLIGRAMS 698851 RxNorm TAKE 200 MILLIGRAMS ORAL THREE TIMES A DAY ProAir HFA 0.09MG/1Actu ation Inhalation Suspension 04/01/2019 05/12/2022 INHALA TION NEEDED FOUR TIMES A DAY 2 unit(s) 063086 RxNorm 2 EACH INHALATION NEEDED FOUR TIMES A DAY DULoxetine HCl 60MG Oral Capsule, Delayed Release 10/22/2019 07/27/2023 ORAL DAILY 60 MILLIGRAMS 811617 RxNorm TAKE 60 MILLIGRAMS ORAL DAILY QUEtiapine Fumarate 300MG Oral Tablet 10/22/2019 05/12/2022 ORAL BEDTIME 300 MILLIGRAMS 059929 RxNorm TAKE 300 MILLIGRAMS ORAL BEDTIME Flovent 0.22MG/Actua tion Inhalation Aerosol Powder 01/15/2021 10/03/2021 INHALA TION TWICE A DAY 2 PUFF 284249 RxNorm 2 PUFF INHALATION TWICE A DAY Ibuprofen 200MG Oral Tablet 01/15/2021 11/25/2022 ORAL NEEDED THREE TIMES A DAY 600 MILLIGRAMS 714917 RxNorm TAKE 600 MILLIGRAMS ORAL NEEDED THREE TIMES A DAY LORazepam 0.5MG Oral Tablet 01/15/2021 05/12/2022 ORAL NEEDED TWICE DAILY 0.5 MILLIGRAMS 818820 RxNorm TAKE 0.5 MILLIGRAMS ORAL NEEDED TWICE DAILY Methadone HCl 10MG/1ML Oral Solution 01/15/2021 10/03/2021 ORAL DAILY 13.2 mL 944598 RxNorm TAKE 13.2 mL ORAL DAILY Nicoderm CQ 14MG/24HR Transdermal Patch, Extended Release 01/15/2021 02/12/2022 TRANSD ERMAL DAILY 1 unit(s) RxNorm APPLY 1 EACH TRANSDERMAL DAILY predniSONE 20MG Oral Tablet 10/05/2021 11/14/2021 ORAL DAILY WITH FOOD 20 MILLIGRAMS 919655 RxNorm TAKE 20 MILLIGRAMS ORAL DAILY WITH FOOD Albuterol Sulfate 0.083% Inhalation Solution 10/05/2021 11/25/2022 INHALA TION NEEDED EVERY 4 HOURS 1 unit(s) 708322 RxNorm 1 EACH INHALATION NEEDED EVERY 4 HOURS Anoro Ellipta 62.5MCG-25MC G/1ACT Inhalation Powder 10/05/2021 07/27/2023 INHALA TION TWICE A DAY 1 PUFF 4810206 RxNorm 1 PUFF INHALATION TWICE A DAY Methadone HCl 40MG Oral Tablet for Suspension 10/05/2021 07/27/2023 ORAL DAILY 132 MILLIGRAMS 374274 RxNorm TAKE 132 MILLIGRAMS ORAL DAILY Cephalexin 500MG Oral Capsule 10/05/2021 11/14/2021 ORAL THREE TIMES A DAY 1 CAPSULE 150312 RxNorm TAKE 1 CAPSULE ORAL THREE TIMES A DAY Doxycycline 100MG Oral Capsule 12/10/2021 12/21/2021 ORAL TWICE A DAY 1 CAPSULE 2289988 RxNorm TAKE 1 CAPSULE ORAL TWICE A DAY Zonisamide 100MG Oral Capsule 12/22/2021 05/12/2022 ORAL TWICE A DAY 100 MILLIGRAMS 280026 RxNorm TAKE 100 MILLIGRAMS ORAL TWICE A DAY Keflex 500MG Oral Capsule 01/14/2022 02/12/2022 ORAL THREE TIMES A DAY 1 CAPSULE 448910 RxNorm TAKE 1 CAPSULE ORAL THREE TIMES A DAY predniSONE 10MG Oral Tablet 02/16/2022 11/25/2022 ORAL THREE TIMES A DAY WITH FOOD 10 MILLIGRAMS 007677 RxNorm TAKE 10 MILLIGRAMS ORAL THREE TIMES A DAY WITH FOOD SEROquel 300MG Oral Tablet 02/16/2022 12/22/2022 ORAL BEDTIME 300 MILLIGRAMS 163298 RxNorm TAKE 300 MILLIGRAMS ORAL BEDTIME Cephalexin 500MG Oral Capsule 02/16/2022 02/16/2022 ORAL THREE TIMES A DAY 1 CAPSULE 606387 RxNorm TAKE 1 CAPSULE ORAL THREE TIMES A DAY Cephalexin 500MG Oral Capsule 02/16/2022 05/12/2022 ORAL THREE TIMES A DAY 1 CAPSULE 775512 RxNorm TAKE 1 CAPSULE ORAL THREE TIMES A DAY MiraLAX 17GM/1Dose Oral Powder for Solution 05/12/2022 11/25/2022 ORAL DAILY 17 GRAM 637619 RxNorm TAKE 17 GRAM ORAL DAILY Ibuprofen 600MG Oral Tablet 12/01/2022 07/27/2023 ORAL NEEDED THREE TIMES A DAY 600 MILLIGRAMS 292699 RxNorm TAKE 600 MILLIGRAMS ORAL NEEDED THREE TIMES A DAY FOR PAIN Cefpodoxime Proxetil 200MG Oral Tablet 12/01/2022 12/22/2022 ORAL EVERY 12 HOURS 200 MILLIGRAMS 190654 RxNorm TAKE 200 MILLIGRAMS ORAL EVERY 12 HOURS Combivent Respimat 100MCG-20MCG /1Act Inhalation Ethridge 12/01/2022 07/27/2023 INHALA TION NEEDED EVERY 8 HOURS 1 unit(s) 8958510 RxNorm 1 EACH INHALATION NEEDED EVERY 8 HOURS Depo-Testost erone Novaplus 200MG/1ML Intramuscula r Oil 12/01/2022 07/27/2023 INTRAM USCULA R 1 unit(s) 278610 RxNorm INJECT 1 EACH INTRAMUSCULA R Flovent 0.22MG/1Actu ation Inhalation Aerosol Powder 12/01/2022 07/27/2023 INHALA TION TWICE A DAY 1 unit(s) 545607 RxNorm 1 EACH INHALATION TWICE A DAY Ventolin HFA 0.09MG/1Actu ation Inhalation Suspension 12/01/2022 07/27/2023 INHALA TION 1 unit(s) 029768 RxNorm 1 EACH INHALATION Zonisamide 100MG Oral Capsule 12/01/2022 07/27/2023 ORAL DAILY 200 MILLIGRAMS 526725 RxNorm TAKE 200 MILLIGRAMS ORAL DAILY guaiFENesin 600MG Oral Tablet, Extended Release 12/01/2022 12/01/2022 ORAL NEEDED TWICE DAILY 1 TABLET 176296 RxNorm TAKE 1 TABLET ORAL NEEDED TWICE DAILY FOR COUGH predniSONE 10MG Oral Tablet 12/01/2022 12/01/2022 ORAL DAILY 2 TABLET 642291 RxNorm TAKE 2 TABLET ORAL DAILY X 5 DAYS THEN 1 TAB DAILY X 5 DAYS THEN STOP guaiFENesin 600MG Oral Tablet, Extended Release 12/01/2022 07/27/2023 ORAL NEEDED TWICE DAILY 1 TABLET 713588 RxNorm TAKE 1 TABLET ORAL NEEDED TWICE DAILY FOR COUGH predniSONE 10MG Oral Tablet 12/01/2022 12/22/2022 ORAL DAILY 2 TABLET 647612 RxNorm TAKE 2 TABLET ORAL DAILY X 5 DAYS THEN 1 TAB DAILY X 5 DAYS THEN STOP Acetaminophe n 500MG Oral Tablet 12/01/2022 07/27/2023 ORAL NEEDED THREE TIMES A DAY 2 TABLET 354782 RxNorm TAKE 2 TABLET ORAL NEEDED THREE TIMES A DAY FOR PAIN Lisinopril 40MG Oral Tablet 12/01/2022 07/27/2023 ORAL DAILY 1 TABLET 811206 RxNorm TAKE 1 TABLET ORAL DAILY predniSONE 20MG Oral Tablet 12/22/2022 04/02/2023 ORAL DAILY 1 TABLET 514060 RxNorm TAKE 3 TABLETS DAILY FOR 3 DAYS, THEN 2 TABLETS DAILY FOR 3 DAYS, THEN 1 TABLET DAILY FOR 3 DAYS Narcan 4MG/0.1ML Nasal Ethridge 12/30/2022 07/27/2023 NASAL NEEDED 1 SPRAY 0537243 RxNorm SPRAY 1 SPRAY NASAL NEEDED FOR OPIATE OVERDOSE Albuterol Sulfate 0.09MG/1Actu ation Inhalation Suspension 12/30/2022 07/27/2023 INHALA TION NEEDED EVERY 4 HOURS 2 PUFF 4654672 RxNorm 2 PUFF INHALATION NEEDED EVERY 4 HOURS FOR Shortness of breath Cefpodoxime Proxetil 200MG Oral Tablet 04/05/2023 06/04/2023 ORAL TWICE A DAY 1 TABLET 603188 RxNorm TAKE 1 TABLET ORAL TWICE A DAY QUEtiapine 300MG Oral Tablet 04/05/2023 07/27/2023 ORAL BEDTIME 300 MILLIGRAMS 637532 RxNorm TAKE 300 MILLIGRAMS ORAL BEDTIME predniSONE 10MG Oral Tablet 04/05/2023 06/04/2023 ORAL TWICE A DAY 2 TABLET 212274 RxNorm TAKE 2 TABLET ORAL TWICE A DAY for 3 days then 2 tabs daily x 3 days then 1 tab daily x 3 days Senna Plus 50MG-8.6MG Oral Tablet 04/05/2023 07/27/2023 ORAL TWICE A DAY 2 TABLET 872668 RxNorm TAKE 2 TABLET ORAL TWICE A DAY busPIRone 15MG Oral Tablet 04/05/2023 07/27/2023 ORAL THREE TIMES A DAY 15 MILLIGRAMS 917946 RxNorm TAKE 15 MILLIGRAMS ORAL THREE TIMES A DAY oxygen 04/05/2023 Unknown ORAL continu ous 3 LITERS RxNorm TAKE 3 LITERS ORAL continuous Milk Of Magnesia 400MG/5ML Oral Suspension 06/13/2023 07/27/2023 ORAL NEEDED DAILY 30 mL 820101 RxNorm TAKE 30 mL ORAL NEEDED DAILY predniSONE 20MG Oral Tablet 07/27/2023 10/16/2023 ORAL DAILY 2 TABLET 821555 RxNorm TAKE 2 TABLET ORAL DAILY predniSONE 20MG Oral Tablet 09/15/2023 10/16/2023 ORAL DAILY 2 TABLET 676973 RxNorm TAKE 2 TABLET ORAL DAILY Ibuprofen 200MG Oral Tablet 10/22/2023 Unknown ORAL NEEDED THREE TIMES A DAY 3 TABLET 754526 RxNorm TAKE 3 TABLET ORAL NEEDED THREE TIMES A DAY predniSONE 10MG Oral Tablet 10/22/2023 12/01/2023 ORAL TWICE A DAY 2 TABLET 527056 RxNorm TAKE 2 TABLET ORAL TWICE A DAY x 3 days then 1 tab twice a day x 5 days then 1 tab daily LORazepam 1MG Oral Tablet 10/22/2023 Unknown ORAL NEEDED TWICE DAILY 1 MILLIGRAMS 665509 RxNorm TAKE 1 MILLIGRAMS ORAL NEEDED TWICE DAILY Cefpodoxime Proxetil 200MG Oral Tablet 10/22/2023 11/28/2023 ORAL EVERY 12 HOURS 200 MILLIGRAMS 428688 RxNorm TAKE 200 MILLIGRAMS ORAL EVERY 12 HOURS Anoro Ellipta 62.5MCG-25MC G/1ACT Inhalation Powder 10/22/2023 Unknown INHALA TION DAILY 1 GRAM 6685338 RxNorm 1 GRAM INHALATION DAILY DULoxetine HCl 60MG Oral Capsule, Delayed Release 10/22/2023 Unknown ORAL DAILY 60 MILLIGRAMS 112320 RxNorm TAKE 60 MILLIGRAMS ORAL DAILY Linzess 145MCG Oral Capsule 10/22/2023 10/27/2023 ORAL DAILY 1 unit(s) 5588742 RxNorm TAKE 1 E ACH ORAL DAILY Lisinopril 40MG Oral Tablet 10/22/2023 Unknown ORAL DAILY 40 MILLIGRAMS 001199 RxNorm TAKE 40 MILLIGRAMS ORAL DAILY Methadone 10MG Oral Tablet 10/22/2023 Unknown ORAL DAILY 132 MILLIGRAMS RxNorm TAKE 132 MILLIGRAMS ORAL DAILY Pregabalin 200MG Oral Capsule 10/22/2023 Unknown ORAL THREE TIMES A DAY 200 MILLIGRAMS 567518 RxNorm TAKE 200 MILLIGRAMS ORAL THREE TIMES A DAY QUEtiapine Fumarate 300MG Oral Tablet 10/22/2023 Unknown ORAL BEDTIME 300 MILLIGRAMS 806309 RxNorm TAKE 300 MILLIGRAMS ORAL BEDTIME Testosterone Cypionate 200MG/1ML Intramuscula r Oil 10/22/2023 Unknown 5340910 RxNorm As directed Ventolin HFA 0.09MG/1Actu ation Inhalation Suspension 10/22/2023 Unknown INHALA TION NEEDED EVERY 4 HOURS 2 PUFF 024321 RxNorm 2 PUFF INHALATION NEEDED EVERY 4 HOURS Acetaminophe n 500MG Oral Tablet 10/22/2023 Unknown ORAL THREE TIMES A DAY 2 TABLET RxNorm TAKE 2 TABLET ORAL THREE TIMES A DAY predniSONE 10MG Oral Tablet 12/01/2023 12/07/2023 ORAL DAILY 4 TABLET 899498 RxNorm TAKE 4 TABLET ORAL DAILY x 3 days then 2 tabs daily x 3 days then 1 tab daily x 7 days Cefpodoxime Proxetil 200MG Oral Tablet 12/01/2023 12/07/2023 ORAL TWICE A DAY 1 TABLET 820110 RxNorm TAKE 1 TABLET ORAL TWICE A DAY levoFLOXacin 750MG Oral Tablet 12/25/2023 Unknown ORAL DAILY 1 TABLET 818428 RxNorm TAKE 1 TABLET ORAL DAILY predniSONE 50MG Oral Tablet 12/25/2023 Unknown ORAL DAILY 1 TABLET 063317 RxNorm TAKE 1 TABLET ORAL DAILY Assessment [...] physician. Reason For Referral No Data Found Procedures Procedure Name Date Status Code Code Allen lea Amputated below knee completed 376239278 SNOM EDCT ORIF of fracture of tibia completed 29643317 SNOMEDCT HAND/FINGER SURGERY completed 576159453 SNOME DCT Tonsillectomy completed 997725046 SNOMEDCT Incision AND drainage completed 24995456 SNO MEDCT Problems Problem Start Date Resolved Date Status Code Code System PNEUMONIA active 884962285 SNOMED-CT POLYSUBSTANCE ABUSE active 932356999 SNOMED-CT ACUTE AND CHRONIC RESPIRATORY FAILURE WITH HYPERCAPNIA active 6503373095879 SNOMED-CT ACUTE AND CHRONIC RESPIRATORY FAILURE WITH HYPOXIA active 91554245 SNOMED-CT COPD WITH EXACERBATION active 5430888 07 SNOMED-CT ALCOHOL USE WITH WITHDRAWAL active 866621604 SNOMED-CT CHRONIC RESPIRATORY FAILURE WITH HYPOXIA 10/03/2021 resolved 04176541 SNOMED- CT OTHER SEIZURES 10/03/2021 resolved 17566310 SNOM ED-CT PULMONARY NODULE 10/03/2021 resolved 011401556 SN OMED-CT CHRONIC HEPATITIS C 10/03/2021 resolved 836156349 SNOMED-CT ANXIETY DISORDER 10/03/2021 resolved 837746795 SN OMED-CT 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 10/03/2021 resolved 991091396841768 SNOME D-CT NICOTINE DEPENDENCE 01/13/2021 resolved 93564691 SNOMED-CT VENOUS INSUFFICIENCY 10/03/2021 resolved 27287638 SNOMED-CT ALCOHOL INTOXICATION 11/26/2022 resolved 46650903 SNOMED-CT AMS 11/26/2022 resolved 865840083 SNOMED-CT HYPOKALEMIA 11/26/2022 resolved 66276706 SNOMED- CT OPIATE TOXICITY 06/04/2023 resolved 836520687 SNO MED-CT ACUTE ALCOHOL INTOXICATION 04/01/2023 resolved 5062710794 SNOMED-CT FEVER 06/04/2023 resolved 577499211 SNOMED-CT ALTERED MENTAL STATUS 06/04/2023 resolved 2486414 04 SNOMED-CT CHRONIC HEADACHE DISORDER 10/03/2021 resolved 256145398 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 544707 00 SNOMED-CT ALCOHOL DEPENDENCE WITH WITHDRAWAL 01/13/2021 resolved 08988032 SNOMED-CT HTN 10/03/2021 resolved 39711032 SNOMED-CT COPD 09/09/2021 resolved 03931981 SNOMED-CT HIGH CHOLESTEROL 09/09/2021 resolved 87729495 SN OMED-CT Allergies and Adverse Reactions Allergy Substance Reaction Severity Start Date Concern Status Code Code System PCN (penicillin) Anaphylaxis (SNOMED-CT: 12976429) Moderate Active 1929964 SNOMED-CT Plan of Treatment X-RAY 03/21/2022 MRI BRAIN W WO CONTRAST 12/06/2021 MRI BRAIN W WO CONTRAST 11/30/2021 LAB DRAW 15MIN 05/13/2021 Plan Left lower leg laceration: Skin flap debrided, wound cleaned and dressed with a sterile dressing. Continue wound changes daily with Xeroform, Telfa and roller gauze. Cefazolin 1 g IV every 8 hours until resolution of erythema in the lower extremity. Patient afebrile, no white count. Right BKA stump with large callus, patient states no adjustment of prosthesis in many years, looks as though prosthesis is rubbing on the stump. PT consultation. There does not appear to be an infection under the callus. COPD oxygen dependent: Patient will be maintained on supplemental oxygen as he requires chronically at home. He was given 125 mg of Solu-Medrol in the ED for presumed COPD exacerbation. Upon evaluation his status does appear to be chronic. He complains of some increased shortness of breath over the past couple of weeks, perhaps a prednisone taper would benefit him upon discharge. Polysubstance abuse maintained on methadone: Methadone administered via the [facility] clinic, dose needs to be verified before administration tomorrow. Patient states he is on 132 mg of methadone daily he states he did have his dose today. Recommend avoiding narcotics if at all possible while hospitalized. Anxiety: Continue lorazepam 0.5 mg p.o. 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 Chronic pain: Continue Lyrica and ibuprofen as OPERATIONS ANALYST Encounters Encounter Diagnosis Start Date Code Code Sys tem Cellulitis of left lower limb 10/03/2021 SNOMED-CT Personal Care Team Section Performer Name Performer Role Active Date Inactive Da te History and Physical Notes [facility] 10/14/2021 09:13 Patient Name Age Sex Admission Date/Time ANTONIO DAUGHERTY 1975 46 years Male 10/03/2021 12:49 10/03/2021 15:30 Admission Date: 10/03/2021 Reason for Admission: Left lower leg cellulitis with laceration Code Status: Full Attending Physician: Viv Rosario MD Primary Care Physician: RAMIN Walsh History of Present Illness Chief Complaint: LEG PAIN 46 yr/o male with COPD - home O2 dependent at 2L via nasal cannula, nonepileptic seizure disorder, chronic pain syndrome, hx of polysubstance use disorder on methadone, hep C s/p treatment without viral load, presents with c/o leg leg laceration, pain and redness. Pt is well known to [facility] with multiple chronic medical problems, medical noncompliance, and narcotic seeking behavior. Today he presents with viveros laceration sustained on 10/01/21 by a piece of metal sticking out of the ground. Unfortunately, at >48 hours, the skin tear/laceration can not be repaired 2/2 infection risk. The area around the tear is erythematous, warm and swollen. Patient has PVD with chronic skin changes, but he notes worsening of erythema since sustaining skin tear. 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 There is no drainage or erythema surrounding this lesion. He also came to the ED without his supplemental O2 and was noted to be be hypoxic in low 80's. CXR was done without evidence of acute changes. Pt has a known stable right middle lobe lung nodule 5mm in size. Past Medical/Surgical/Family/Social History PMH Nicotine dependence, Secondary polycythemia, Alcohol dependence with withdrawal, COPD with exacerbation, Polysubstance abuse, , Chronic methadone treatment HTN, [...] MOTHER FH of COPD, MOTHER Past Social History:Pt lives in [place] with friends. 30+ pack year history of tobacco use, states he quit a couple years ago but still smokes once every month or so. Hx of polysubstance use disorder including opiates and alcohol. States he does not currently use either and is on methadone from the [facility] in [facility]. Endorses marijuana use ~once a week. Allergy List PCN (penicillin), medication Active Home Meds Anoro Ellipta 62.5MCG-25MCG/1ACT Inhalation Powder, 1 PUFF, INHALATION, TWICE A DAY LORazepam 0.5MG Oral Tablet, 0.5 MILLIGRAMS, ORAL, NEEDED TWICE DAILY, Existing Prescription QUEtiapine Fumarate 300MG Oral Tablet, [...] HH or Facility list Review of Systems Constitutional: (-) fever (-) weight changes Eyes: (-) blurry vision (-) eye pain ENT: (-) sore throat (-) ear pain (-) epistaxis Neck: (-) lymphadenopathy Respiratory: (-) SOB (-) cough Heart: (-) chest pain (-) palpitations Abdomen: (-) nausea (-) vomiting (-) diarrhea Genitourinary: (-) urinary frequency (-) urgency Extremities: See HPI Skin: see HPI Neuro: (-) headache (-) dizziness. Physical Exam Date/Time BP (mm/Hg) Heart Rate Resp Temp (?C) SPO2% O2 Device 10/03/2021 13:05 133/84 93 22 36.4 Tympanic 83 % Room Air 21% GENERAL: Adult Male, somnolent, difficult to keep eyes open, speaking very softly, sitting up in bed, NAD EYES: Pupils are equal, round and reactive to light. Sclerae are white without injection or icterus. HENT: Normocephalic, atraumatic. Mucus membranes moist. Epistaxis absent. NECK: Supple. No thyromegaly or adenopathy. CHEST/LUNGS: diffuse wheezing throughout, HEART: Regular rate and rhythm. No murmurs, rubs or gallop. ABDOMEN: Soft, non-distended, non-tender. Normal bowel sounds x4Q. 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 Left anterior viveros with 4 cm byx 3 cm skin tear, skin flap laterally still connected, no active bleeding, no purulent discharge. Entire left lower leg erythematous with chronic venous stasis changes, warm to touch with mild edema nonpitting. NEUROLOGIC: Muscle strength is graded 5/5 in the upper and lower extremities bilaterally. Sensation to pain, touch intact. PSYCHIATRIC: The patient is oriented x4. Mood and affect are appropriate. Pre-Admission Studies: Labs last 24 hours Test Results Units Reference Range Collected CULT WOUND CULTURE* 10/03/2021 14:40 GRAM STAIN* 10/03/2021 14:40 ALCOHOL (ETHANOL) 189 mg/dL 10/03/2021 13:40 WBC 9.74 th/cmm L=5.00 H=10.00 10/03/2021 13:40 HEMOGLOBIN 16.6 gm/dL L=13.0 H=17.0 10/03/2021 13:40 HEMATOCRIT 51 % L=45 H=52 10/03/2021 13:40 PLATELET COUNT 235 th/cmm L=150 H=450 10/03/2021 13:40 GLUCOSE 93 mg/dL L=70 H=116 10/03/2021 13:40 BUN 7 mg/dL L=6 H=25 10/03/2021 13:40 CREATININE 0.89 mg/dL L=0.67 H=1.17 10/03/2021 13:40 SODIUM SERUM 146 H mmol/L L=136 H=145 10/03/2021 13:40 POTASSIUM SERUM 3.4 mmol/L L=3.4 H=5.2 10/03/2021 13:40 CHLORIDE SERUM 102 mmol/L L=96 H=110 10/03/2021 13:40 CARBON DIOXIDE (CO2) 32 mmol/L L=22 H=34 10/03/2021 13:40 ANION GAP 12.1 mmol/L 10/03/2021 13:40 CALCIUM SERUM 8.6 mg/dL L=8.2 H=10.2 10/03/2021 13:40 BILIRUBIN TOTAL 0.5 mg/dL L=0.0 H=1.3 10/03/2021 13:40 ALK. PHOS. 89 U/L L=46 H=116 10/03/2021 13:40 SGOT (AST) 17 U/L L=15 H=37 10/03/2021 13:40 SGPT (ALT) 13 U/L L=12 H=78 10/03/2021 13:40 TOTAL PROTEIN 7.2 gm/dL L=6.0 H=8.0 10/03/2021 13:40 ALBUMIN 3.5 gm/dL L=3.4 H=5.0 10/03/2021 13:40 Radiology/EK09/09/21 CTA Chest: IMPRESSION: 1. No evidence of obvious acute pulmonary emboli nor aortic dissection. 2. COPD findings. Multiple calcified granulomas. Solitary stable noncalcified 5 mm nodule in the right middle lobe, unchanged from 10/2019 (almost two years). No pleural effusions. 3. Some patchy infiltrates noted bilaterally. Recommend Covid testing. Problem List Laceration of left lower leg Acute and chronic respiratory failure with hypoxia Polysubstance abuse COPD with exacerbation Plan Left lower leg laceration: Skin flap debrided, wound cleaned and dressed with a sterile dressing. Continue wound changes daily with Xeroform, Telfa and roller gauze. Cefazolin 1 g IV every 8 hours until resolution of erythema in the lower extremity. Patient afebrile, no white count. Right BKA stump with large callus, patient states no adjustment of prosthesis in many years, looks as though prosthesis is rubbing on the stump. PT consultation. There does not appear to be an infection under the callus. COPD oxygen dependent: Patient will be maintained on supplemental oxygen as he requires chronically at home. He was given 125 mg of Solu-Medrol in the ED for presumed COPD exacerbation. Upon evaluation his status does appear to be chronic. He complains of some increased shortness of breath over the past couple of weeks, perhaps a prednisone taper would benefit him upon discharge. Polysubstance abuse maintained on methadone: Methadone administered via the [facility] clinic, dose needs to be verified before administration tomorrow. Patient states he is on 132 mg of methadone daily he states he did have his dose today. Recommend avoiding narcotics if at all possible while hospitalized. Anxiety: Continue lorazepam 0.5 mg p.o. 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 He also has a callus on his right stump that is tender and a bit irritated but with no evidence of infection. Allergy List PCN (penicillin), medication OBJECTIVE: Vital Signs Most Recent Date/Time BP (mm/Hg) Heart Rate Resp Temp (?C) SPO2% O2 Device 10/04/2021 16:27 150/96 70 12 36.9 TEMPORAL SCANNING 93 % O2 Cannula GEN: Chronically ill appearing EYES: No scleral icteris NECK: supple, no LAD PULM: CTA b/l no w/r/r CV: RRR with no m/r/g appreciated ABD: soft, nontender, +BSx4 EXT: Left viveros with abrasion/skin tear and mild surrounding erythema. Left stump with callous that is a bit tender and irritated but without evidence of infection. NEURO: A&Ox3, 5/5 muscle strength upper and lower ext b/l. no facial droop. Labs last 24 hours Test Results Units Reference Range Collected GLUCOSE 92 mg/dL L=70 H=116 10/04/2021 06:20 BUN 9 mg/dL L=6 H=25 10/04/2021 06:20 CREATININE 0.72 mg/dL L=0.67 H=1.17 10/04/2021 06:20 SODIUM SERUM 138 mmol/L L=136 H=145 10/04/2021 06:20 POTASSIUM SERUM 3.8 mmol/L L=3.4 H=5.2 10/04/2021 06:20 CHLORIDE SERUM 102 mmol/L L=96 H=110 10/04/2021 06:20 CARBON DIOXIDE (CO2) 28 mmol/L L=22 H=34 10/04/2021 06:20 ANION GAP 7.9 mmol/L 10/04/2021 06:20 CALCIUM SERUM 8.5 mg/dL L=8.2 H=10.2 10/04/2021 06:20 WBC 7.48 th/cmm L=5.00 H=10.00 10/04/2021 06:20 HEMOGLOBIN 16.4 gm/dL L=13.0 H=17.0 10/04/2021 06:20 HEMATOCRIT 51 % L=45 H=52 10/04/2021 06:20 PLATELET COUNT 193 th/cmm L=150 H=450 10/04/2021 06:20 Tier- INPATIENT/ED 10/03/2021 16:36 SARS COV2 RNA: NEGATIVE REFERENCE RANGE: NEGAT 10/03/2021 16:36 Wound gram stain: GNR ASSESSMENT: Problem List COPD with exacerbation Polysubstance abuse Acute and chronic respiratory failure with hypoxia Laceration of left lower leg Alcohol abuse PLAN: Change cefazolin to ceftriaxone to cover GNR on gram stain pending culture Wound care Continue methadone per outpatient regimen, dose confirmed with the [facility] 132 mg daily. Continue supplemental oxygen for chronic respiratory failure with hypoxia. Disposition hopefully patient be able to return home soon when medically stable.
--- OUTSIDE RECORDS SUMMARY | 2024-02-29 09:08 | XMS_ITS ---
Author Organization Unknown Address [address] [place] [phone] Phone Care Team Providers Care Software Analyst Name Role Phone MARYJO HERNANDES Registered Nurse Unavailable OBINNA FIERRO Registered Nurse Unavailable Unavailable Xwatchlist Unavailable ADRIANNA Mendieta Attending Unavailable YOLANDE OLSON Unavailable RAMIN Walsh Primary Unavailable KAMLA Clay Secondary Unavailable UNLISTED PROVIDER - REQUESTED Xhandoff Un available Immunization Immunization Date Status Additional Notes Code Code System Tdap 10/03/2021 Completed 115 CVX Tdap 01/14/2022 Completed 115 CVX Results BASIC METABOLIC PANEL (BMP) - Collect Date/Time: 02/16/2022 06:45 [facility] ID: [id number] [address], [place], [address] LOINC: 44143-1 Test Value Unit Reference Range Code Code System Flag GLUCOSE 85 mg/dL L=70 H=116 2345-7 LOINC BUN 18 mg/dL L=6 H=25 3094-0 LOINC CREATININE 0.65 mg/dL L=0.67 H=1.17 2160-0 LOINC L SODIUM SERUM 139 mmol/L L=136 H=145 2951-2 LOINC POTASSIUM SERUM 4.3 mmol/L L=3.4 H=5.2 2823-3 LOINC CHLORIDE SERUM 102 mmol/L L=96 H=110 2075-0 LOINC CARBON DIOXIDE (CO2) 34 mmol/L L=22 H=34 2028-9 LOINC ANION GAP 2.8 mmol/L 08819-0 LOINC CALCIUM SERUM 8.2 mg/dL L=8.2 H=10.2 05092-9 LOINC AGE 46 years eGFR (non-Afr.Amer.) > 120 mL/min 37735-4 LOINC eGFR (Afr-Montserratian) > 120 mL/min 45770-3 LOINC CBC W/ DIFFERENTIAL* - Colle ct Date/Time: 02/16/2022 06:45 [facility] ID: [id number] [address], [place], [address] LOINC: 99572-3 Test Value Unit Reference Range Code Code System Flag WBC 15.06 th/cmm L=5.00 H=10.00 6690-2 LOINC H NEUT % 67.6 % L=40.0 H=80.0 LYMPH % 20.3 % L=10.0 H=50.0 MONO % 7.9 % L=2.0 H=12.0 47724-6 LOINC EOS % 0.7 % L=0.0 H=8.0 BASO % 0.7 % L=0.0 H=3.0 IG % 2.8 % L=0.0 H=1.1 2514-8 LOINC H NRBC % 0.0 % L=0.0 H=0.0 54715-8 LOINC NEUT abs count 10.2 th/cmm L=1.6 H=8.4 751-8 LOINC H LYMPH abs count 3.1 th/cmm L=1.5 H=4.0 731-0 LOINC MONO abs count 1.2 th/cmm L=0.2 H=1.0 742-7 LOINC H EOS abs count 0.1 th/cmm L=0.0 H=0.5 711-2 LOINC BASO abs count 0.1 th/cmm L=0.0 H=0.2 704-7 LOINC IG abs count 0.4 th/cmm L=0.0 H=0.1 24406-0 LOINC H NRBC abs count 0.0 mil/cmm L=0.0 H=0.0 19142-9 LOINC RBC 5.37 mil/cmm L=4.30 H=6.20 789-8 LOINC HEMOGLOBIN 16.1 gm/dL L=13.0 H=17.0 718-7 LOINC HEMATOCRIT 51 % L=45 H=52 4544-3 LOINC MCV 95 fL L=82 H=92 787-2 LOINC H MCH 30.0 pg L=27.0 H=31.0 785-6 LOINC MCHC 31.4 % L=32.0 H=36.0 786-4 LOINC L RDW-SD 72.2 fL L=39.0 H=49.0 788-0 LOINC H PLATELET COUNT 354 th/cmm L=150 H=450 777-3 LOINC Anisocytosis 2+ Macrocytes 1+ Polychromia 1+ Schistocytes 1+ BASIC METABOLIC PANEL (BMP) - Collect Date/Time: 02/15/2022 06:30 [facility] ID: [id number] [address] [place] [address], [address] LOINC: 31467-3 Test Value Unit Reference Range Code Code System Flag GLUCOSE 98 mg/dL L=70 H=116 2345-7 LOINC BUN 17 mg/dL L=6 H=25 3094-0 LOINC CREATININE 0.64 mg/dL L=0.67 H=1.17 2160-0 LOINC L SODIUM SERUM 142 mmol/L L=136 H=145 2951-2 LOINC POTASSIUM SERUM 3.3 mmol/L L=3.4 H=5.2 2823-3 LOINC L CHLORIDE SERUM 102 mmol/L L=96 H=110 2075-0 LOINC CARBON DIOXIDE (CO2) 35 mmol/L L=22 H=34 2028-9 LOINC H ANION GAP 5.2 mmol/L 67335-3 LOINC CALCIUM SERUM 8.1 mg/dL L=8.2 H=10.2 35096-1 LOINC L AGE 46 years eGFR (non-Afr.Amer.) > 120 mL/min 32722-5 LOINC eGFR (Afr-Montserratian) > 120 mL/min 49424-9 LOINC CBC W/ DIFFERENTIAL* - Colle ct Date/Time: 02/15/2022 06:30 [facility] ID: [id number] [address] [place] [address], [address] LOINC: 80175-7 Test Value Unit Reference Range Code Code System Flag WBC 13.79 th/cmm L=5.00 H=10.00 6690-2 LOINC H NEUT % 67.2 % L=40.0 H=80.0 LYMPH % 21.7 % L=10.0 H=50.0 MONO % 8.1 % L=2.0 H=12.0 35590-7 LOINC EOS % 0.4 % L=0.0 H=8.0 BASO % 0.7 % L=0.0 H=3.0 IG % 1.9 % L=0.0 H=1.1 2514-8 LOINC H NRBC % 0.0 % L=0.0 H=0.0 99923-7 LOINC NEUT abs count 9.3 th/cmm L=1.6 H=8.4 751-8 LOINC H LYMPH abs count 3.0 th/cmm L=1.5 H=4.0 731-0 LOINC MONO abs count 1.1 th/cmm L=0.2 H=1.0 742-7 LOINC H EOS abs count 0.1 th/cmm L=0.0 H=0.5 711-2 LOINC BASO abs count 0.1 th/cmm L=0.0 H=0.2 704-7 LOINC IG abs count 0.3 th/cmm L=0.0 H=0.1 55402-1 LOINC H NRBC abs count 0.0 mil/cmm L=0.0 H=0.0 45576-1 LOINC RBC 5.35 mil/cmm L=4.30 H=6.20 789-8 LOINC HEMOGLOBIN 15.9 gm/dL L=13.0 H=17.0 718-7 LOINC HEMATOCRIT 51 % L=45 H=52 4544-3 LOINC MCV 95 fL L=82 H=92 787-2 LOINC H MCH 29.7 pg L=27.0 H=31.0 785-6 LOINC MCHC 31.4 % L=32.0 H=36.0 786-4 LOINC L RDW-SD 69.9 fL L=39.0 H=49.0 788-0 LOINC H PLATELET COUNT 375 th/cmm L=150 H=450 777-3 LOINC Atyp lymphs 2+ Anisocytosis 2+ Microcytes 1+ Macrocytes 1+ Polychromia 1+ Target cells 1+ Acanthocytes 1+ BASIC METABOLIC PANEL (BMP) - Collect Date/Time: 02/14/2022 06:45 [facility] ID: [id number] [address], [place], [address] LOINC: 23407-8 Test Value Unit Reference Range Code Code System Flag GLUCOSE 115 mg/dL L=70 H=116 2345-7 LOINC BUN 14 mg/dL L=6 H=25 3094-0 LOINC CREATININE 0.76 mg/dL L=0.67 H=1.17 2160-0 LOINC SODIUM SERUM 137 mmol/L L=136 H=145 2951-2 LOINC POTASSIUM SERUM 3.3 mmol/L L=3.4 H=5.2 2823-3 LOINC L CHLORIDE SERUM 99 mmol/L L=96 H=110 2075-0 LOINC CARBON DIOXIDE (CO2) 34 mmol/L L=22 H=34 2028-9 LOINC ANION GAP 3.9 mmol/L 76370-8 LOINC CALCIUM SERUM 8.0 mg/dL L=8.2 H=10.2 94125-1 LOINC L AGE 46 years eGFR (non-Afr.Amer.) 109 mL/min 44625-3 LOINC eGFR (Afr-Montserratian) > 120 mL/min 36285-9 LOINC CBC W/ DIFFERENTIAL* - Colle ct Date/Time: 02/14/2022 06:45 [facility] ID: [id number] [address] [place] [address], [id number] LOINC: 42604-4 Test Value Unit Reference Range Code Code System Flag WBC 19.07 th/cmm L=5.00 H=10.00 H NEUT % 85.5 % L=40.0 H=80.0 H LYMPH % 8.1 % L=10.0 H=50.0 L MONO % 5.2 % L=2.0 H=12.0 EOS % 0.0 % L=0.0 H=8.0 BASO % 0.5 % L=0.0 H=3.0 IG % 0.7 % L=0.0 H=1.1 NRBC % 0.2 % L=0.0 H=0.0 H NEUT abs count 16.3 th/cmm L=1.6 H=8.4 H LYMPH abs count 1.6 th/cmm L=1.5 H=4.0 MONO abs count 1.0 th/cmm L=0.2 H=1.0 EOS abs count 0.0 th/cmm L=0.0 H=0.5 BASO abs count 0.1 th/cmm L=0.0 H=0.2 IG abs count 0.1 th/cmm L=0.0 H=0.1 NRBC abs count 0.0 mil/cmm L=0.0 H=0.0 RBC 5.40 mil/cmm L=4.30 H=6.20 HEMOGLOBIN 16.1 gm/dL L=13.0 H=17.0 HEMATOCRIT 51 % L=45 H=52 MCV 94 fL L=82 H=92 H MCH 29.8 pg L=27.0 H=31.0 MCHC 31.6 % L=32.0 H=36.0 L RDW-SD 68.0 fL L=39.0 H=49.0 H PLATELET COUNT DNR L=150 H=450 Platelet est. Adequate Atyp lymphs 3+ Anisocytosis 2+ Microcytes 1+ Macrocytes 1+ Polychromia 1+ Tear drops 1+ CORRECTED CORRECTED CBC W/ DIFFERENTIAL* - [facility] ct Date/Time: 02/13/2022 06:20 [facility] ID: [id number] [address], [place], [address] LOINC: 46467-8 Test Value Unit Reference Range Code Code System Flag WBC 10.98 th/cmm L=5.00 H=10.00 6690-2 LOINC H NEUT % 87.8 % L=40.0 H=80.0 H LYMPH % 7.2 % L=10.0 H=50.0 L MONO % 2.1 % L=2.0 H=12.0 42137-9 LOINC EOS % 0.0 % L=0.0 H=8.0 BASO % 1.2 % L=0.0 H=3.0 IG % 1.7 % L=0.0 H=1.1 2514-8 LOINC H NRBC % 0.3 % L=0.0 H=0.0 88635-4 LOINC H NEUT abs count 9.6 th/cmm L=1.6 H=8.4 751-8 LOINC H LYMPH abs count 0.8 th/cmm L=1.5 H=4.0 731-0 LOINC L MONO abs count 0.2 th/cmm L=0.2 H=1.0 742-7 LOINC EOS abs count 0.0 th/cmm L=0.0 H=0.5 711-2 LOINC BASO abs count 0.1 th/cmm L=0.0 H=0.2 704-7 LOINC IG abs count 0.2 th/cmm L=0.0 H=0.1 30492-4 LOINC H NRBC abs count 0.0 mil/cmm L=0.0 H=0.0 92992-1 LOINC RBC 5.49 mil/cmm L=4.30 H=6.20 789-8 LOINC HEMOGLOBIN 16.2 gm/dL L=13.0 H=17.0 718-7 LOINC HEMATOCRIT 51 % L=45 H=52 4544-3 LOINC MCV 93 fL L=82 H=92 787-2 LOINC H MCH 29.5 pg L=27.0 H=31.0 785-6 LOINC MCHC 31.8 % L=32.0 H=36.0 786-4 LOINC L RDW-SD 65.3 fL L=39.0 H=49.0 788-0 LOINC H PLATELET COUNT 313 th/cmm L=150 H=450 777-3 LOINC Atyp lymphs 3+ Anisocytosis 2+ Macrocytes 2+ Polychromia 1+ BASIC METABOLIC PANEL (BMP) - Collect Date/Time: 02/13/2022 06:20 [facility] ID: [id number] [address], [place], [address] LOINC: 60717-1 Test Value Unit Reference Range Code Code System Flag GLUCOSE 167 mg/dL L=70 H=116 2345-7 LOINC H BUN 9 mg/dL L=6 H=25 3094-0 LOINC CREATININE 0.66 mg/dL L=0.67 H=1.17 2160-0 LOINC L SODIUM SERUM 136 mmol/L L=136 H=145 2951-2 LOINC POTASSIUM SERUM 3.2 mmol/L L=3.4 H=5.2 2823-3 LOINC L CHLORIDE SERUM 99 mmol/L L=96 H=110 2075-0 LOINC CARBON DIOXIDE (CO2) 33 mmol/L L=22 H=34 8-9 LOINC ANION GAP 4.1 mmol/L 61254-2 LOINC CALCIUM SERUM 8.3 mg/dL L=8.2 H=10.2 65990-7 LOINC AGE 46 years eGFR (non-Afr.Amer.) > 120 mL/min 24196-4 LOINC eGFR (Afr-Montserratian) > 120 mL/min 12715-1 LOINC ORDER VENOUS BLOOD GAS* - Co llect Date/Time: 02/12/2022 20:05 [facility] ID: [id number] [address], [place], [id number] LOINC: Test Value Unit Reference Range Code Code System Flag Specimen type: VENOUS pH (venous) 7.42 L=7.38 H=7.46 2746-6 LOINC PCO2 (venous) 58.6 mm Hg L=41.0 H=51.0 2703-7 LOINC H PO2 (venous) 52 mm Hg L=30 H=50 2705-2 LOINC H HCO3 38 mmol/L L=22 H=26 1960-4 LOINC H TCO2 (venous) 40 mmol/L L=22 H=28 3533-7 LOINC H BASE EXCESS (venous) 14 mmol/L L=-2 H=3 3097-3 LOINC H Assist vent. Resp. Rate /min. Temp. 37.0 deg. C LACTIC ACID - Collect Date/T vannessa: 02/12/2022 19:55 [facility] ID: [id number] [address] [place] [address], [address] LOINC: Test Value Unit Reference Range Code Code System Flag LACTIC ACID 1.1 mmol/L L=0.7 H=2.1 85439-6 LOINC [facility] COVID FLU RSV GENEXPE RT - Collect Date/Time: 02/12/2022 18:56 [facility] ID: [id number] [address] [place] [address], [id number] LOINC: 96210-8 Test Value Unit Reference Range Code Code System Flag COVID NEGATIVE Normal: Negative 25633-8 LOINC INFLUENZA A DNA NEGATIVE Normal: Negative 20405-5 LOINC INFLUENZA B DNA NEGATIVE Normal: Negative 71384-9 LOINC RSV DNA NEGATIVE Normal: Negative 84727-1 LOINC LIPASE* NEW - Collect Date/T vannessa: 02/12/2022 18:21 [facility] ID: [id number] [address] [place] [address], [id number] LOINC: 3040-3 Test Value Unit Reference Range Code Code System Flag LIPASE. 13 U/L L=16 H=77 L CBC W/ DIFFERENTIAL* - Colle ct Date/Time: 02/12/2022 18:21 [facility] ID: [id number] [address] [place] [address], [address] LOINC: 86878-7 Test Value Unit Reference Range Code Code System Flag WBC 15.01 th/cmm L=5.00 H=10.00 6690-2 LOINC H NEUT % 75.1 % L=40.0 H=80.0 LYMPH % 10.1 % L=10.0 H=50.0 MONO % 10.5 % L=2.0 H=12.0 15912-9 LOINC EOS % 0.9 % L=0.0 H=8.0 BASO % 1.3 % L=0.0 H=3.0 IG % 2.1 % L=0.0 H=1.1 2514-8 LOINC H NRBC % 0.1 % L=0.0 H=0.0 53086-7 LOINC H NEUT abs count 11.3 th/cmm L=1.6 H=8.4 751-8 LOINC H LYMPH abs count 1.5 th/cmm L=1.5 H=4.0 731-0 LOINC MONO abs count 1.6 th/cmm L=0.2 H=1.0 742-7 LOINC H EOS abs count 0.1 th/cmm L=0.0 H=0.5 711-2 LOINC BASO abs count 0.2 th/cmm L=0.0 H=0.2 704-7 LOINC IG abs count 0.3 th/cmm L=0.0 H=0.1 12360-9 LOINC H NRBC abs count 0.0 mil/cmm L=0.0 H=0.0 28445-3 LOINC RBC 5.38 mil/cmm L=4.30 H=6.20 789-8 LOINC HEMOGLOBIN 16.2 gm/dL L=13.0 H=17.0 718-7 LOINC HEMATOCRIT 51 % L=45 H=52 4544-3 LOINC MCV 95 fL L=82 H=92 787-2 LOINC H MCH 30.1 pg L=27.0 H=31.0 785-6 LOINC MCHC 31.7 % L=32.0 H=36.0 786-4 LOINC L RDW-SD 68.3 fL L=39.0 H=49.0 788-0 LOINC H PLATELET COUNT 305 th/cmm L=150 H=450 777-3 LOINC Anisocytosis 1+ Vaccuol neutr 1+ ALCOHOL (ETHANOL)* - Collect Date/Time: 02/12/2022 18:21 [facility] ID: [id number] [address], [place], [address] LOINC: 43906-7 Test Value Unit Reference Range Code Code System Flag ALCOHOL (ETHANOL) < 3 mg/dL 31086-3 LOINC COMPREHENSIVE METABOLIC PANE L (CMP) - Collect Date/Time: 02/12/2022 18:21 [facility] ID: [id number] [address], [place], [address] LOINC: 33867-3 Test Value Unit Reference Range Code Code System Flag GLUCOSE 114 mg/dL L=70 H=116 2345-7 LOINC BUN 10 mg/dL L=6 H=25 3094-0 LOINC CREATININE 0.91 mg/dL L=0.67 H=1.17 2160-0 LOINC SODIUM SERUM 134 mmol/L L=136 H=145 2951-2 LOINC L POTASSIUM SERUM 2.7 mmol/L L=3.4 H=5.2 2823-3 LOINC LL CHLORIDE SERUM 95 mmol/L L=96 H=110 2075-0 LOINC L CARBON DIOXIDE (CO2) 36 mmol/L L=22 H=34 2028-9 LOINC H ANION GAP 3.1 mmol/L 70375-6 LOINC CALCIUM SERUM 8.4 mg/dL L=8.2 H=10.2 81498-7 LOINC BILIRUBIN TOTAL 0.5 mg/dL L=0.0 H=1.3 1975-2 LOINC ALK. PHOS. 100 U/L L=46 H=116 6768-6 LOINC SGOT (AST) 21 U/L L=15 H=37 1920-8 LOINC SGPT (ALT) 22 U/L L=12 H=78 1742-6 LOINC TOTAL PROTEIN 7.5 gm/dL L=6.0 H=8.0 2885-2 LOINC ALBUMIN 2.6 gm/dL L=3.4 H=5.0 1751-7 LOINC L AGE 46 years eGFR (non-Afr.Amer.) 89 mL/min 47765-9 LOINC eGFR (Afr-Montserratian) 108 mL/min 77119-1 LOINC LIPASE* - Collect Date/Time: 02/12/2022 18:21 [facility] ID: [id number] [address], [place], [id number] LOINC: 3040-3 Test Value Unit Reference Range Code Code System Flag LIPASE 33 U/L L=73 H=393 L XR CHEST PORTABLE OR 1V - Co mpleted: 02/12/2022 20:24 LOINC: [facility] [place], [place] [address] PACS DUST SAMPLER REPORT Patient Name: ANTONIO DAUGHERTY MRN: Sex: : Age: [id number] M 1975 46 Account: Accession: Admit: StayType: [id number] 02/12/2022 E/R Ordered: Order ID: Entered Order: Ordering Provider: 02/12/2022 19:37 [id number] THEA CHIU Completed: Tech Completed: Resulted DTTM: 02/12/2022 20:24 JJ 02/13/2022 14:56 Study Description: XR CHEST PORTABLE OR 1V Study Reason: Fever Technique: 2D digital imaging was performed of the chest. 1 images were obtained. Comparison: Comparison 12/21/2021. FINDINGS: MEDIASTINUM: Normal. HEART: Normal. PULMONARY VASCULATURE: Normal. LUNGS: There is a new right midlung infiltrate. There may also be a new right basilar infiltrate medially. There is diffuse chronic interstitial disease present. PLEURAL SPACE: No pleural effusion or pneumothorax. BONE:Within normal limits for the patient's age. OTHER FINDINGS:Normal. IMPRESSION: New infiltrate in the right midlung and possible right basilar infiltrate suspicious for pneumonia. Report Digitally Signed by Wiblerto Gutierrez on 02/13/2022 02:56 PM EDT Social History Type Status Start Date End Date Code Code Syst em Smoking History Current every day smoker [id number] SNOMED CT Smoking History Light tobacco smoker [id number] Smoking History Smoker, current status unknown 52802051 SNOMED CT Sex Male Vital Signs Vital Sign Value Unit Lavina Value Lavina Unit Date/Time Recent/Initial? Code Code System Body Mass Index 25.84 kg/m2 02/15/2022 07:06 Most Recent 77393 -5 LOINC Body Mass Index 25.84 kg/m2 02/12/2022 18:45 Initial 67557 -5 LOINC Systolic Blood Pressure 198 mm[Hg] 02/16/2022 11:38 Most Recent 8480- 6 LOINC Diastolic Blood Pressure 93 mm[Hg] 02/16/2022 11:38 Most Recent 8462- 4 LOINC Systolic Blood Pressure 132 mm[Hg] 02/12/2022 18:45 Initial 8480- 6 LOINC Diastolic Blood Pressure 86 mm[Hg] 02/12/2022 18:45 Initial 8462- 4 LOINC Body Surface Area 1.97 m2 02/15/2022 07:06 Most Recent 3140- 1 LOINC Body Surface Area 1.97 m2 02/12/2022 18:45 Initial 3140- 1 LOINC Height 175.260 0 cm 69.00 in 02/15/2022 07:06 Most Recent 8302- 2 LOINC Height 175.260 0 cm 69.00 in 02/12/2022 18:45 Initial 8302- 2 LOINC O2 Saturation 90 % 2021 11:37 Most Recent 51762 -5 LOINC O2 Saturation 92 % 2021 18:45 Initial 68678 -5 LOINC Inhaled Oxygen Flow Rate 3.00 L/min 02/16/2022 11:37 Most Recent 3151- 8 LOINC Inhaled Oxygen Flow Rate 8.00 L/min 02/12/2022 18:45 Initial 3151- 8 LOINC Pulse 69.0 /min 02/16/2022 11:37 Most Recent 8867- 4 LOINC Pulse 70.0 /min 02/12/2022 18:45 Initial 8867- 4 LOINC Respiration 18 /min 02/17/20 11:37 Most Recent 9279- 1 LOINC Respiration 18 /min 02/13/20 18:45 Initial 9279- 1 INC Temperature 36.9 Regina 98.4 F 02/17/20 11:37 Most Recent 8310- 5 LOINC Temperature 37.6 Regina 99.7 F 02/13/20 18:45 Initial 8310- 5 [facility] Weight 79.38 kg 175.00 lbs 02/15/2022 07:06 Most Recent 49690 -7 [facility] Weight 79.38 kg 175.00 lbs 02/12/2022 18:45 Initial 06291 -7 [facility] Medications Medication Start Date End Date Route Frequency Dose Code Code System Medication Instructions Home Meds Lisinopril 20MG Oral Tablet 04/01/2019 12/01/2022 ORAL DAILY 20 MILLIGRAMS 013982 RxNorm TAKE 20 MILLIGRAMS ORAL DAILY Pregabalin 200MG Oral Capsule 04/01/2019 07/27/2023 ORAL THREE TIMES A DAY 200 MILLIGRAMS 866013 RxNorm TAKE 200 MILLIGRAMS ORAL THREE TIMES A DAY ProAir HFA 0.09MG/1Actu ation Inhalation Suspension 04/01/2019 05/12/2022 INHALA TION NEEDED FOUR TIMES A DAY 2 unit(s) 822306 RxNorm 2 EACH INHALATION NEEDED FOUR TIMES A DAY DULoxetine HCl 60MG Oral Capsule, Delayed Release 10/22/2019 07/27/2023 ORAL DAILY 60 MILLIGRAMS 528449 RxNorm TAKE 60 MILLIGRAMS ORAL DAILY QUEtiapine Fumarate 300MG Oral Tablet 10/22/2019 05/12/2022 ORAL BEDTIME 300 MILLIGRAMS 186717 RxNorm TAKE 300 MILLIGRAMS ORAL BEDTIME Ibuprofen 200MG Oral Tablet 01/15/2021 11/25/2022 ORAL NEEDED THREE TIMES A DAY 600 MILLIGRAMS 961703 RxNorm TAKE 600 MILLIGRAMS ORAL NEEDED THREE TIMES A DAY LORazepam 0.5MG Oral Tablet 01/15/2021 05/12/2022 ORAL NEEDED TWICE DAILY 0.5 MILLIGRAMS 278963 RxNorm TAKE 0.5 MILLIGRAMS ORAL NEEDED TWICE DAILY Albuterol Sulfate 0.083% Inhalation Solution 10/05/2021 11/25/2022 INHALA TION NEEDED EVERY 4 HOURS 1 unit(s) 356016 RxNorm 1 EACH INHALATION NEEDED EVERY 4 HOURS Anoro Ellipta 62.5MCG-25MC G/1ACT Inhalation Powder 10/05/2021 07/27/2023 INHALA TION TWICE A DAY 1 PUFF 2638119 RxNorm 1 PUFF INHALATION TWICE A DAY Methadone HCl 40MG Oral Tablet for Suspension 10/05/2021 07/27/2023 ORAL DAILY 132 MILLIGRAMS 444180 RxNorm TAKE 132 MILLIGRAMS ORAL DAILY Zonisamide 100MG Oral Capsule 12/22/2021 05/12/2022 ORAL TWICE A DAY 100 MILLIGRAMS 439468 RxNorm TAKE 100 MILLIGRAMS ORAL TWICE A DAY predniSONE 10MG Oral Tablet 02/16/2022 11/25/2022 ORAL THREE TIMES A DAY WITH FOOD 10 MILLIGRAMS 672298 RxNorm TAKE 10 MILLIGRAMS ORAL THREE TIMES A DAY WITH FOOD SEROquel 300MG Oral Tablet 02/16/2022 12/22/2022 ORAL BEDTIME 300 MILLIGRAMS 508632 RxNorm TAKE 300 MILLIGRAMS ORAL BEDTIME Cephalexin 500MG Oral Capsule 02/16/2022 02/16/2022 ORAL THREE TIMES A DAY 1 CAPSULE 789895 RxNorm TAKE 1 CAPSULE ORAL THREE TIMES A DAY Cephalexin 500MG Oral Capsule 02/16/2022 05/12/2022 ORAL THREE TIMES A DAY 1 CAPSULE 685256 RxNorm TAKE 1 CAPSULE ORAL THREE TIMES A DAY MiraLAX 17GM/1Dose Oral Powder for Solution 05/12/2022 11/25/2022 ORAL DAILY 17 GRAM 696166 RxNorm TAKE 17 GRAM ORAL DAILY Cefpodoxime Proxetil 200MG Oral Tablet 12/01/2022 12/22/2022 ORAL EVERY 12 HOURS 200 MILLIGRAMS 186362 RxNorm TAKE 200 MILLIGRAMS ORAL EVERY 12 HOURS Ibuprofen 600MG Oral Tablet 12/01/2022 07/27/2023 ORAL NEEDED THREE TIMES A DAY 600 MILLIGRAMS 066154 RxNorm TAKE 600 MILLIGRAMS ORAL NEEDED THREE TIMES A DAY FOR PAIN Combivent Respimat 100MCG-20MCG /1Act Inhalation [place] 12/01/2022 07/27/2023 INHALA TION NEEDED EVERY 8 HOURS 1 unit(s) 9288640 RxNorm 1 EACH INHALATION NEEDED EVERY 8 HOURS Depo-Testost erone Novaplus 200MG/1ML Intramuscula r Oil 12/01/2022 07/27/2023 INTRAM USCULA R 1 unit(s) 361569 RxNorm INJECT 1 EACH INTRAMUSCULA R Flovent 0.22MG/1Actu ation Inhalation Aerosol Powder 12/01/2022 07/27/2023 INHALA TION TWICE A DAY 1 unit(s) 534441 RxNorm 1 EACH INHALATION TWICE A DAY Ventolin HFA 0.09MG/1Actu ation Inhalation Suspension 12/01/2022 07/27/2023 INHALA TION 1 unit(s) 654513 RxNorm 1 EACH INHALATION Zonisamide 100MG Oral Capsule 12/01/2022 07/27/2023 ORAL DAILY 200 MILLIGRAMS 133302 RxNorm TAKE 200 MILLIGRAMS ORAL DAILY guaiFENesin 600MG Oral Tablet, Extended Release 12/01/2022 12/01/2022 ORAL NEEDED TWICE DAILY 1 TABLET [id number] RxNorm TAKE 1 TABLET ORAL NEEDED TWICE DAILY FOR COUGH predniSONE 10MG Oral Tablet 12/01/2022 12/01/2022 ORAL DAILY 2 TABLET 696576 RxNorm TAKE 2 TABLET ORAL DAILY X 5 DAYS THEN 1 TAB DAILY X 5 DAYS THEN STOP guaiFENesin 600MG Oral Tablet, Extended Release 12/01/2022 07/27/2023 ORAL NEEDED TWICE DAILY 1 TABLET 626321 RxNorm TAKE 1 TABLET ORAL NEEDED TWICE DAILY FOR COUGH predniSONE 10MG Oral Tablet 12/01/2022 12/22/2022 ORAL DAILY 2 TABLET 575506 RxNorm TAKE 2 TABLET ORAL DAILY X 5 DAYS THEN 1 TAB DAILY X 5 DAYS THEN STOP Acetaminophe n 500MG Oral Tablet 12/01/2022 07/27/2023 ORAL NEEDED THREE TIMES A DAY 2 TABLET 373795 RxNorm TAKE 2 TABLET ORAL NEEDED THREE TIMES A DAY FOR PAIN Lisinopril 40MG Oral Tablet 12/01/2022 07/27/2023 ORAL DAILY 1 TABLET 293783 RxNorm TAKE 1 TABLET ORAL DAILY predniSONE 20MG Oral Tablet 12/22/2022 04/02/2023 ORAL DAILY 1 TABLET 253226 RxNorm TAKE 3 TABLETS DAILY FOR 3 DAYS, THEN 2 TABLETS DAILY FOR 3 DAYS, THEN 1 TABLET DAILY FOR 3 DAYS Albuterol Sulfate 0.09MG/1Actu ation Inhalation Suspension 12/30/2022 07/27/2023 INHALA TION NEEDED EVERY 4 HOURS 2 PUFF 3005512 RxNorm 2 PUFF INHALATION NEEDED EVERY 4 HOURS FOR Shortness of breath Narcan 4MG/0.1ML Nasal [place] 12/30/2022 07/27/2023 NASAL NEEDED 1 SPRAY [id number] RxNorm SPRAY 1 SPRAY NASAL NEEDED FOR OPIATE OVERDOSE Cefpodoxime Proxetil 200MG Oral Tablet 04/05/2023 06/04/2023 ORAL TWICE A DAY 1 TABLET 166106 RxNorm TAKE 1 TABLET ORAL TWICE A DAY predniSONE 10MG Oral Tablet 04/05/2023 06/04/2023 ORAL TWICE A DAY 2 TABLET 868281 RxNorm TAKE 2 TABLET ORAL TWICE A DAY for 3 days then 2 tabs daily x 3 days then 1 tab daily x 3 days Senna Plus 50MG-8.6MG Oral Tablet 04/05/2023 07/27/2023 ORAL TWICE A DAY 2 TABLET 061426 RxNorm TAKE 2 TABLET ORAL TWICE A DAY busPIRone 15MG Oral Tablet 04/05/2023 07/27/2023 ORAL THREE TIMES A DAY 15 MILLIGRAMS 089940 RxNorm TAKE 15 MILLIGRAMS ORAL THREE TIMES A DAY QUEtiapine 300MG Oral Tablet 04/05/2023 07/27/2023 ORAL BEDTIME 300 MILLIGRAMS 067864 RxNorm TAKE 300 MILLIGRAMS ORAL BEDTIME oxygen 04/05/2023 Unknown ORAL continu ous 3 LITERS RxNorm TAKE 3 LITERS ORAL continuous Milk Of Magnesia 400MG/5ML Oral Suspension 06/13/2023 07/27/2023 ORAL NEEDED DAILY 30 mL 886157 RxNorm TAKE 30 mL ORAL NEEDED DAILY predniSONE 20MG Oral Tablet 07/27/2023 10/16/2023 ORAL DAILY 2 TABLET 778453 RxNorm TAKE 2 TABLET ORAL DAILY predniSONE 20MG Oral Tablet 09/15/2023 10/16/2023 ORAL DAILY 2 TABLET 486902 RxNorm TAKE 2 TABLET ORAL DAILY Acetaminophe n 500MG Oral Tablet 10/22/2023 Unknown ORAL THREE TIMES A DAY 2 TABLET 339727 RxNorm TAKE 2 TABLET ORAL THREE TIMES A DAY Ibuprofen 200MG Oral Tablet 10/22/2023 Unknown ORAL NEEDED THREE TIMES A DAY 3 TABLET 251779 RxNorm TAKE 3 TABLET ORAL NEEDED THREE TIMES A DAY predniSONE 10MG Oral Tablet 10/22/2023 12/01/2023 ORAL TWICE A DAY 2 TABLET [id number] RxNorm TAKE 2 TABLET ORAL TWICE A DAY x 3 days then 1 tab twice a day x 5 days then 1 tab daily LORazepam 1MG Oral Tablet 10/22/2023 Unknown ORAL NEEDED TWICE DAILY 1 MILLIGRAMS RxNorm TAKE 1 MILLIGRAMS ORAL NEEDED TWICE DAILY Cefpodoxime Proxetil 200MG Oral Tablet 10/22/2023 11/28/2023 ORAL EVERY 12 HOURS 200 MILLIGRAMS 360493 RxNorm TAKE 200 MILLIGRAMS ORAL EVERY 12 HOURS Anoro Ellipta 62.5MCG-25MC G/1ACT Inhalation Powder 10/22/2023 Unknown INHALA TION DAILY 1 GRAM 1452565 RxNorm 1 GRAM INHALATION DAILY DULoxetine HCl 60MG Oral Capsule, Delayed Release 10/22/2023 Unknown ORAL DAILY 60 MILLIGRAMS 989371 RxNorm TAKE 60 MILLIGRAMS ORAL DAILY Linzess 145MCG Oral Capsule 10/22/2023 10/27/2023 ORAL DAILY 1 unit(s) 2184549 RxNorm TAKE 1 E ACH ORAL DAILY Lisinopril 40MG Oral Tablet 10/22/2023 Unknown ORAL DAILY 40 MILLIGRAMS 19771202 RxNorm TAKE 40 MILLIGRAMS ORAL DAILY Methadone 10MG Oral Tablet 10/22/2023 Unknown ORAL DAILY 132 MILLIGRAMS RxNorm TAKE 132 MILLIGRAMS ORAL DAILY Pregabalin 200MG Oral Capsule 10/22/2023 Unknown ORAL THREE TIMES A DAY 200 MILLIGRAMS 720451 RxNorm TAKE 200 MILLIGRAMS ORAL THREE TIMES A DAY QUEtiapine Fumarate 300MG Oral Tablet 10/22/2023 Unknown ORAL BEDTIME 300 MILLIGRAMS 822550 RxNorm TAKE 300 MILLIGRAMS ORAL BEDTIME Testosterone Cypionate 200MG/1ML Intramuscula r Oil 10/22/2023 Unknown 7207593 RxNorm As directed Ventolin HFA 0.09MG/1Actu ation Inhalation Suspension 10/22/2023 Unknown INHALA TION NEEDED EVERY 4 HOURS 2 PUFF 496340 RxNorm 2 PUFF INHALATION NEEDED EVERY 4 HOURS predniSONE 10MG Oral Tablet 12/01/2023 12/07/2023 ORAL DAILY 4 TABLET [id number] RxNorm TAKE 4 TABLET ORAL DAILY x 3 days then 2 tabs daily x 3 days then 1 tab daily x 7 days Cefpodoxime Proxetil 200MG Oral Tablet 12/01/2023 12/07/2023 ORAL TWICE A DAY 1 TABLET 886107 RxNorm TAKE 1 TABLET ORAL TWICE A DAY levoFLOXacin 750MG Oral Tablet 12/25/2023 Unknown ORAL DAILY 1 TABLET 001699 RxNorm TAKE 1 TABLET ORAL DAILY predniSONE 50MG Oral Tablet 12/25/2023 Unknown ORAL DAILY 1 TABLET 696118 RxNorm TAKE 1 TABLET ORAL DAILY Assessment [...] Date Status Code Code System PNEUMONIA active 076749017 SNOMED-CT POLYSUBSTANCE ABUSE active 436364241 SNOMED-CT ACUTE AND CHRONIC RESPIRATORY FAILURE WITH HYPERCAPNIA active 6929399461811 SNOMED-CT ACUTE AND CHRONIC RESPIRATORY FAILURE WITH HYPOXIA active 31842167 SNOMED-CT COPD WITH EXACERBATION active 5794950 07 SNOMED-CT ALCOHOL USE WITH WITHDRAWAL active 700311560 SNOMED-CT CHRONIC RESPIRATORY FAILURE WITH HYPOXIA 10/03/2021 resolved 44847336 SNOMED- CT OTHER SEIZURES 10/03/2021 resolved 19936875 SNOM ED-CT PULMONARY NODULE 10/03/2021 resolved 025789562 SN OMED-CT CHRONIC HEPATITIS C 10/03/2021 resolved 628653146 SNOMED-CT ANXIETY DISORDER 10/03/2021 resolved 627321655 SN OMED-CT 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 10/03/2021 resolved [id number] SNOME D-CT NICOTINE DEPENDENCE 01/13/2021 resolved 29088262 SNOMED-CT VENOUS INSUFFICIENCY 10/03/2021 resolved 78717205 SNOMED-CT ALCOHOL INTOXICATION 11/26/2022 resolved 06508286 SNOMED-CT AMS 11/26/2022 resolved 892753906 SNOMED-CT HYPOKALEMIA 11/26/2022 resolved 04671116 SNOMED- CT OPIATE TOXICITY 06/04/2023 resolved 753883730 SNO MED-CT ACUTE ALCOHOL INTOXICATION 04/01/2023 resolved 4531640929 SNOMED-CT FEVER 06/04/2023 resolved 908696556 SNOMED-CT ALTERED MENTAL STATUS 06/04/2023 resolved 0963892 04 SNOMED-CT CHRONIC HEADACHE DISORDER 10/03/2021 resolved 109626431 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 456326 00 SNOMED-CT ALCOHOL DEPENDENCE WITH WITHDRAWAL 01/13/2021 resolved 10993691 SNOMED-CT HTN 10/03/2021 resolved 59047873 SNOMED-CT COPD 09/09/2021 resolved 22032417 SNOMED-CT HIGH CHOLESTEROL 09/09/2021 resolved 55837183 SN OMED-CT Allergies and Adverse Reactions Allergy Substance Reaction Severity Start Date Concern Status Code Code System PCN (penicillin) Anaphylaxis (SNOMED-CT: 87782821) Moderate Active 9392003 SNOMED-CT Plan of Treatment X-RAY 03/21/2022 MRI BRAIN W WO CONTRAST 12/06/2021 MRI BRAIN W WO CONTRAST 11/30/2021 LAB DRAW 15MIN 05/13/2021 Encounters Encounter Diagnosis Start Date Code Code Sys tem Pneumonia, unspecified organism 02/12/2022 SNOMED-CT Personal Care Team Section Performer Name Performer Role Active Date Inactive Da elias Progress Notes [facility] 02/15/2022 10:47 02/15/2022 46-year-old admitted with extensive pneumonitis and acute on chronic hypoxic respiratory failure. Eating well. Headache and anxiety Ordered Meds Table Ordered Medication Start Date/Time Dosage Route Frequency NICOTINE PATCH REMOVAL REMINDER 02/12/2022 21:25 1 EA TRANSDERMAL BEDTIME NICOTINE TRANSDERM PATCH: 21MG 02/12/2022 21:25 21 MG TRANSDERMAL DAILY AZITHROMYCIN IVPB: 500MG/250ML 02/12/2022 21:22 IV PIGGYBACK Q24H CefTRIAXone IVPB: 1GM/50ML 02/12/2022 21:22 100 ml/hr IV PIGGYBACK Q24H ALBUTEROL/IPRATROP UPDRAFT:2.5/0.5MG/3ML 02/12/2022 21:22 3 ML INHALATION PRN Q4H IPRATROPIUM INH JUSTYNA UD: 0.5MG/2.5ML 02/12/2022 21:22 0.5 MG INHALATION QID RESP BUDESONIDE UPDRAFT: 0.5MG/2ML 02/12/2022 21:18 0.5 MG INHALATION BID RESP ARFORMOTEROL NEB SOLN: 15MCG/2ML 02/12/2022 21:18 15 MCG INHALATION BID RESP ENOXAPARIN INJ SYRINGE: 30MG/0.3ML 02/12/2022 21:18 30 MG SUBCUTANEOUS OPTIONS Q24H ACETAMINOPHEN TABLET: 325MG 02/12/2022 21:18 650 MG ORAL PRN Q4H LISINOPRIL TABLET: 20MG 02/12/2022 21:15 20 MG ORAL DAILY IBUPROFEN TABLET: 200MG 02/12/2022 21:15 600 MG ORAL PRN TID LORazepam TABLET: 0.5MG 02/12/2022 21:15 0.5 MG ORAL PRN BID METHADONE TABLET: 10MG 02/14/2022 09:53 135 MG ORAL DAILY MethylPREDNISolone SUC INJ SDV:40MG/1ML 02/14/2022 09:56 20 MG IV PUSH Q8H NF-Zonisamide Oral Capsule 100MG 02/14/2022 09:57 100 MG ORAL BID DULoxetine CAPSULE DR: 30MG 02/14/2022 09:57 60 MG ORAL DAILY PREGABALIN CAPSULE: 50MG 02/14/2022 09:59 200 MG ORAL TID QUEtiapine TABLET: 100MG 02/14/2022 10:00 300 MG ORAL BEDTIME MUPIROCIN OINTMENT 2% 22GM 02/14/2022 14:52 1 LUCY TOPICALLY BID KETOROLAC INJ SDV: 30MG/1ML 02/14/2022 14:53 15 MG IV PUSH PRN Q6H POTASSIUM CHL TABLET: 20mEq 02/14/2022 15:06 20 MEQ ORAL BID WITH FOOD POLYETHYLENE GLYCOL PACKET 3350:17GM 02/15/2022 09:54 17 GRAMS ORAL PRN DAILY MILK OF MAGNESIA SUSP UD: 2400MG/30ML 02/15/2022 09:54 30 ML ORAL PRN DAILY DOCUSATE SODIUM CAPSULE: 100MG 02/15/2022 09:54 100 MG ORAL BID SENNA CONC TABLET: 8.6MG 02/15/2022 09:55 8.6 MG ORAL PRN DAILY Vital Signs: Today Date/Time BP (mm/Hg) BP Position/Site Heart Rate Resp Temp (C) Temp (F) SPO2% O2 Device Blood Sugar (mg/dL) Pain Score Height (cm) Height (in) Weight (kg) Weight (lbs/ozs) BMI Head Cir (cm) 02/15/2022 07:49 173/94 LYING/R ARM 45 16 36 TEMPORAL SCANNING 96.8 TEMPORAL SCANNING 90 % O2 Cannula 02/15/2022 07:06 175.26 cm 69 in 79.38 kg 175 lbs 25.84 02/15/2022 04:52 155/88 LYING/R ARM 55 20 36.3 TEMPORAL SCANNING 97.3 TEMPORAL SCANNING 93 % O2 Cannula 02/15/2022 00:01 133/84 SITTING/L ARM 67 18 36.5 TEMPORAL SCANNING 97.7 TEMPORAL SCANNING 94 % O2 Cannula GENERAL: Chronically ill appearing gentleman who looks older than his stated age HEENT: Pupils equally respondent to light, sclerae anicteric LUNGS: Rhonchi right greater than left mostly at the bases ABDOMEN: Soft, nontender, normal bowel sounds EXTREMITIES: The patient is status post BKA on the right, and there is some areas of erythema but no suggestion of cellulitis more related to the pressure of his prosthesis cup. On the left lower extremity there is an abrasion with about a quarter size thin eschar - resolved. NEUROLOGIC EXAM: Intact Labs last 24 hours Test Results Units Reference Range Collected GLUCOSE 98 mg/dL L=70 H=116 02/15/2022 06:30 BUN 17 mg/dL L=6 H=25 02/15/2022 06:30 CREATININE 0.64 L mg/dL L=0.67 H=1.17 02/15/2022 06:30 SODIUM SERUM 142 mmol/L L=136 H=145 02/15/2022 06:30 POTASSIUM SERUM 3.3 L mmol/L L=3.4 H=5.2 02/15/2022 06:30 CHLORIDE SERUM 102 mmol/L L=96 H=110 02/15/2022 06:30 CARBON DIOXIDE (CO2) 35 H mmol/L L=22 H=34 02/15/2022 06:30 ANION GAP 5.2 mmol/L 02/15/2022 06:30 CALCIUM SERUM 8.1 L mg/dL L=8.2 H=10.2 02/15/2022 06:30 WBC 13.79 H th/cmm L=5.00 H=10.00 02/15/2022 06:30 HEMOGLOBIN 15.9 gm/dL L=13.0 H=17.0 02/15/2022 06:30 HEMATOCRIT 51 % L=45 H=52 02/15/2022 06:30 PLATELET COUNT 375 th/cmm L=150 H=450 02/15/2022 06:30 Anisocytosis 2+ 02/15/2022 06:30 Macrocytes 1+ 02/15/2022 06:30 Target cells 1+ 02/15/2022 06:30 Acanthocytes 1+ 02/15/2022 06:30 CXR - New infiltrate in the right midlung and possible right basilar infiltrate suspicious for pneumonia. PROBLEM LIST 1. Nnzix-qn-xyeknvf respiratory failure with hypoxia 2. Pneumonia 3. Hypokalemia PLAN Toradol - d/c Replace K Change to PO prednisone Increase lorazepam [facility] 02/14/2022 15:07 02/14/2022 46-year-old admitted with extensive pneumonitis and acute on chronic hypoxic respiratory failure. Eating well which has not been the case for the last 5 or 6 days. The scab on his lower leg was removed with collagenase and there is no surrounding erythema or discomfort. He has a headache which is not an uncommon complaint for him. Ordered Meds Table Ordered Medication Start Date/Time Dosage Route Frequency NICOTINE PATCH REMOVAL REMINDER 02/12/2022 21:25 1 EA TRANSDERMAL BEDTIME NICOTINE TRANSDERM PATCH: 21MG 02/12/2022 21:25 21 MG TRANSDERMAL DAILY AZITHROMYCIN IVPB: 500MG/250ML 02/12/2022 21:22 IV PIGGYBACK Q24H CefTRIAXone IVPB: 1GM/50ML 02/12/2022 21:22 100 ml/hr IV PIGGYBACK Q24H ALBUTEROL/IPRATROP UPDRAFT:2.5/0.5MG/3ML 02/12/2022 21:22 3 ML INHALATION PRN Q4H IPRATROPIUM INH JUSTYNA UD: 0.5MG/2.5ML 02/12/2022 21:22 0.5 MG INHALATION QID RESP BUDESONIDE UPDRAFT: 0.5MG/2ML 02/12/2022 21:18 0.5 MG INHALATION BID RESP ARFORMOTEROL NEB SOLN: 15MCG/2ML 02/12/2022 21:18 15 MCG INHALATION BID RESP ENOXAPARIN INJ SYRINGE: 30MG/0.3ML 02/12/2022 21:18 30 MG SUBCUTANEOUS OPTIONS Q24H ACETAMINOPHEN TABLET: 325MG 02/12/2022 21:18 650 MG ORAL PRN Q4H LISINOPRIL TABLET: 20MG 02/12/2022 21:15 20 MG ORAL DAILY IBUPROFEN TABLET: 200MG 02/12/2022 21:15 600 MG ORAL PRN TID LORazepam TABLET: 0.5MG 02/12/2022 21:15 0.5 MG ORAL PRN BID COLLAGENASE OINTMENT 30GM: 250UNITS/GM 02/13/2022 08:05 1 LUCY TOPICALLY DAILY METHADONE TABLET: 10MG 02/14/2022 09:53 135 MG ORAL DAILY MethylPREDNISolone SUC INJ SDV:40MG/1ML 02/14/2022 09:56 20 MG IV PUSH Q8H NF-Zonisamide Oral Capsule 100MG 02/14/2022 09:57 100 MG ORAL BID DULoxetine CAPSULE DR: 30MG 02/14/2022 09:57 60 MG ORAL DAILY PREGABALIN CAPSULE: 50MG 02/14/2022 09:59 200 MG ORAL TID QUEtiapine TABLET: 100MG 02/14/2022 10:00 300 MG ORAL BEDTIME Vital Signs: Today Date/Time BP (mm/Hg) BP Position/Site Heart Rate Resp Temp (C) Temp (F) SPO2% O2 Device Blood Sugar (mg/dL) Pain Score Height (cm) Height (in) Weight (kg) Weight (lbs/ozs) BMI Head Cir (cm) 02/14/2022 11:40 95 18 90 % O2 Cannula 02/14/2022 11:34 141/80 SITTING/L ARM 57 16 37.1 TEMPORAL SCANNING 98.8 TEMPORAL SCANNING 92 % O2 Cannula 02/14/2022 07:50 96 20 95 % O2 Cannula 02/14/2022 07:20 140/87 SITTING/L ARM 52 16 36.5 TEMPORAL SCANNING 97.7 TEMPORAL SCANNING 93 % O2 Cannula 02/14/2022 04:42 123/71 LYING/L ARM 78 18 36.7 TYMPANIC 98.1 TYMPANIC 96 % 02/14/2022 00:00 138/68 LYING/L ARM 78 18 36.5 TYMPANIC 97.7 TYMPANIC 94 % GENERAL: Chronically ill appearing gentleman who looks older than his stated age HEENT: Pupils equally respondent to light, sclerae anicteric LUNGS: Rhonchi right greater than left mostly at the bases ABDOMEN: Soft, nontender, normal bowel sounds EXTREMITIES: The patient is status post BKA on the right, and there is some areas of erythema but no suggestion of cellulitis more related to the pressure of his prosthesis cup. On the left lower extremity there is an abrasion with about a quarter size thin eschar - resolved. NEUROLOGIC EXAM: Intact Labs last 24 hours Test Results Units Reference Range Collected GLUCOSE 115 mg/dL L=70 H=116 02/14/2022 06:45 BUN 14 mg/dL L=6 H=25 02/14/2022 06:45 CREATININE 0.76 mg/dL L=0.67 H=1.17 02/14/2022 06:45 SODIUM SERUM 137 mmol/L L=136 H=145 02/14/2022 06:45 POTASSIUM SERUM 3.3 L mmol/L L=3.4 H=5.2 02/14/2022 06:45 CHLORIDE SERUM 99 mmol/L L=96 H=110 02/14/2022 06:45 CARBON DIOXIDE (CO2) 34 mmol/L L=22 H=34 02/14/2022 06:45 ANION GAP 3.9 mmol/L 02/14/2022 06:45 CALCIUM SERUM 8 L mg/dL L=8.2 H=10.2 02/14/2022 06:45 WBC 19.07 H th/cmm L=5.00 H=10.00 02/14/2022 06:45 HEMOGLOBIN 16.1 gm/dL L=13.0 H=17.0 02/14/2022 06:45 HEMATOCRIT 51 % L=45 H=52 02/14/2022 06:45 PLATELET COUNT DNR L=150 H=450 02/14/2022 06:45 Platelet est. Adequate 02/14/2022 06:45 Anisocytosis 2+ 02/14/2022 06:45 Macrocytes 1+ 02/14/2022 06:45 Tear drops 1+ 02/14/2022 06:45 CXR - New infiltrate in the right midlung and possible right basilar infiltrate suspicious for pneumonia. PROBLEM LIST 1. Fiwzd-ow-pbmftuz respiratory failure with hypoxia 2. Pneumonia 3. Hypokalemia PLAN Toradol for headache Change collagenase to bactroban Replace K Decrease steroid tomorrow
--- OUTSIDE RECORDS SUMMARY | 2024-02-29 09:08 | XMS_ITS ---
Author Organization Unknown Address [address] [place] [address] [phone] Phone Care Team Providers Care Apiarist Name Role Phone KAMLA Clay Attending Unavailable RAMIN Walsh Primary Unavailable Immunization Immunization Date Status Additional Notes Code Code System Tdap 10/03/2021 Completed 115 CVX Tdap 01/14/2022 Completed 115 CVX Social History Type Status Start Date End Date Code Code Syst em Smoking History Current every day smoker 776312341 SNOMED CT Smoking History Light tobacco smoker [id number] Smoking History Smoker, current status unknown 47094507 SNOMED CT Sex Male Medications Medication Start Date End Date Route Frequency Dose Code Code System Medication Instructions Home Meds Lisinopril 20MG Oral Tablet 04/01/2019 12/01/2022 ORAL DAILY 20 MILLIGRAMS 102724 RxNorm TAKE 20 MILLIGRAMS ORAL DAILY ProAir HFA 0.09MG/1Actu ation Inhalation Suspension 04/01/2019 05/12/2022 INHALA TION NEEDED FOUR TIMES A DAY 2 unit(s) 092370 RxNorm 2 EACH INHALATION NEEDED FOUR TIMES A DAY Pregabalin 200MG Oral Capsule 04/01/2019 07/27/2023 ORAL THREE TIMES A DAY 200 MILLIGRAMS 058702 RxNorm TAKE 200 MILLIGRAMS ORAL THREE TIMES A DAY DULoxetine HCl 60MG Oral Capsule, Delayed Release 10/22/2019 07/27/2023 ORAL DAILY 60 MILLIGRAMS 032819 RxNorm TAKE 60 MILLIGRAMS ORAL DAILY QUEtiapine Fumarate 300MG Oral Tablet 10/22/2019 05/12/2022 ORAL BEDTIME 300 MILLIGRAMS 555027 RxNorm TAKE 300 MILLIGRAMS ORAL BEDTIME Nicoderm CQ 14MG/24HR Transdermal Patch, Extended Release 01/15/2021 02/12/2022 TRANSD ERMAL DAILY 1 unit(s) RxNorm APPLY 1 EACH TRANSDERMAL DAILY Ibuprofen 200MG Oral Tablet 01/15/2021 11/25/2022 ORAL NEEDED THREE TIMES A DAY 600 MILLIGRAMS 968403 RxNorm TAKE 600 MILLIGRAMS ORAL NEEDED THREE TIMES A DAY LORazepam 0.5MG Oral Tablet 01/15/2021 05/12/2022 ORAL NEEDED TWICE DAILY 0.5 MILLIGRAMS 686572 RxNorm TAKE 0.5 MILLIGRAMS ORAL NEEDED TWICE DAILY Anoro Ellipta 62.5MCG-25MC G/1ACT Inhalation Powder 10/05/2021 07/27/2023 INHALA TION TWICE A DAY 1 PUFF 7639925 RxNorm 1 PUFF INHALATION TWICE A DAY Albuterol Sulfate 0.083% Inhalation Solution 10/05/2021 11/25/2022 INHALA TION NEEDED EVERY 4 HOURS 1 unit(s) 027914 RxNorm 1 EACH INHALATION NEEDED EVERY 4 HOURS Methadone HCl 40MG Oral Tablet for Suspension 10/05/2021 07/27/2023 ORAL DAILY 132 MILLIGRAMS 296768 RxNorm TAKE 132 MILLIGRAMS ORAL DAILY Zonisamide 100MG Oral Capsule 12/22/2021 05/12/2022 ORAL TWICE A DAY 100 MILLIGRAMS 582287 RxNorm TAKE 100 MILLIGRAMS ORAL TWICE A DAY Keflex 500MG Oral Capsule 01/14/2022 02/12/2022 ORAL THREE TIMES A DAY 1 CAPSULE 195145 RxNorm TAKE 1 CAPSULE ORAL THREE TIMES A DAY predniSONE 10MG Oral Tablet 02/16/2022 11/25/2022 ORAL THREE TIMES A DAY WITH FOOD 10 MILLIGRAMS 617932 RxNorm TAKE 10 MILLIGRAMS ORAL THREE TIMES A DAY WITH FOOD SEROquel 300MG Oral Tablet 02/16/2022 12/22/2022 ORAL BEDTIME 300 MILLIGRAMS 033898 RxNorm TAKE 300 MILLIGRAMS ORAL BEDTIME Cephalexin 500MG Oral Capsule 02/16/2022 02/16/2022 ORAL THREE TIMES A DAY 1 CAPSULE 784771 RxNorm TAKE 1 CAPSULE ORAL THREE TIMES A DAY Cephalexin 500MG Oral Capsule 02/16/2022 05/12/2022 ORAL THREE TIMES A DAY 1 CAPSULE 592256 RxNorm TAKE 1 CAPSULE ORAL THREE TIMES A DAY MiraLAX 17GM/1Dose Oral Powder for Solution 05/12/2022 11/25/2022 ORAL DAILY 17 GRAM 005716 RxNorm TAKE 17 GRAM ORAL DAILY Ventolin HFA 0.09MG/1Actu ation Inhalation Suspension 12/01/2022 07/27/2023 INHALA TION 1 unit(s) 829097 RxNorm 1 EACH INHALATION Cefpodoxime Proxetil 200MG Oral Tablet 12/01/2022 12/22/2022 ORAL EVERY 12 HOURS 200 MILLIGRAMS 182180 RxNorm TAKE 200 MILLIGRAMS ORAL EVERY 12 HOURS Ibuprofen 600MG Oral Tablet 12/01/2022 07/27/2023 ORAL NEEDED THREE TIMES A DAY 600 MILLIGRAMS 366117 RxNorm TAKE 600 MILLIGRAMS ORAL NEEDED THREE TIMES A DAY FOR PAIN Combivent Respimat 100MCG-20MCG /1Act Inhalation [place] 12/01/2022 07/27/2023 INHALA TION NEEDED EVERY 8 HOURS 1 unit(s) 6703145 RxNorm 1 EACH INHALATION NEEDED EVERY 8 HOURS Depo-Testost erone Novaplus 200MG/1ML Intramuscula r Oil 12/01/2022 07/27/2023 INTRAM USCULA R 1 unit(s) 961496 RxNorm INJECT 1 EACH INTRAMUSCULA R Flovent 0.22MG/1Actu ation Inhalation Aerosol Powder 12/01/2022 07/27/2023 INHALA TION TWICE A DAY 1 unit(s) 770146 RxNorm 1 EACH INHALATION TWICE A DAY Zonisamide 100MG Oral Capsule 12/01/2022 07/27/2023 ORAL DAILY 200 MILLIGRAMS 837299 RxNorm TAKE 200 MILLIGRAMS ORAL DAILY guaiFENesin 600MG Oral Tablet, Extended Release 12/01/2022 12/01/2022 ORAL NEEDED TWICE DAILY 1 TABLET 828260 RxNorm TAKE 1 TABLET ORAL NEEDED TWICE DAILY FOR COUGH predniSONE 10MG Oral Tablet 12/01/2022 12/01/2022 ORAL DAILY 2 TABLET 005379 RxNorm TAKE 2 TABLET ORAL DAILY X 5 DAYS THEN 1 TAB DAILY X 5 DAYS THEN STOP guaiFENesin 600MG Oral Tablet, Extended Release 12/01/2022 07/27/2023 ORAL NEEDED TWICE DAILY 1 TABLET 389726 RxNorm TAKE 1 TABLET ORAL NEEDED TWICE DAILY FOR COUGH predniSONE 10MG Oral Tablet 12/01/2022 12/22/2022 ORAL DAILY 2 TABLET 178426 RxNorm TAKE 2 TABLET ORAL DAILY X 5 DAYS THEN 1 TAB DAILY X 5 DAYS THEN STOP Acetaminophe n 500MG Oral Tablet 12/01/2022 07/27/2023 ORAL NEEDED THREE TIMES A DAY 2 TABLET 478981 RxNorm TAKE 2 TABLET ORAL NEEDED THREE TIMES A DAY FOR PAIN Lisinopril 40MG Oral Tablet 12/01/2022 07/27/2023 ORAL DAILY 1 TABLET 986819 RxNorm TAKE 1 TABLET ORAL DAILY predniSONE 20MG Oral Tablet 12/22/2022 04/02/2023 ORAL DAILY 1 TABLET 135185 RxNorm TAKE 3 TABLETS DAILY FOR 3 DAYS, THEN 2 TABLETS DAILY FOR 3 DAYS, THEN 1 TABLET DAILY FOR 3 DAYS Narcan 4MG/0.1ML Nasal [place] 12/30/2022 07/27/2023 NASAL NEEDED 1 SPRAY 8786336 RxNorm SPRAY 1 SPRAY NASAL NEEDED FOR OPIATE OVERDOSE Albuterol Sulfate 0.09MG/1Actu ation Inhalation Suspension 12/30/2022 07/27/2023 INHALA TION NEEDED EVERY 4 HOURS 2 PUFF 0553740 RxNorm 2 PUFF INHALATION NEEDED EVERY 4 HOURS FOR Shortness of breath Cefpodoxime Proxetil 200MG Oral Tablet 04/05/2023 06/04/2023 ORAL TWICE A DAY 1 TABLET 591967 RxNorm TAKE 1 TABLET ORAL TWICE A DAY QUEtiapine 300MG Oral Tablet 04/05/2023 07/27/2023 ORAL BEDTIME 300 MILLIGRAMS 492432 RxNorm TAKE 300 MILLIGRAMS ORAL BEDTIME predniSONE 10MG Oral Tablet 04/05/2023 06/04/2023 ORAL TWICE A DAY 2 TABLET 108771 RxNorm TAKE 2 TABLET ORAL TWICE A DAY for 3 days then 2 tabs daily x 3 days then 1 tab daily x 3 days Senna Plus 50MG-8.6MG Oral Tablet 04/05/2023 07/27/2023 ORAL TWICE A DAY 2 TABLET 622048 RxNorm TAKE 2 TABLET ORAL TWICE A DAY busPIRone 15MG Oral Tablet 04/05/2023 07/27/2023 ORAL THREE TIMES A DAY 15 MILLIGRAMS 626166 RxNorm TAKE 15 MILLIGRAMS ORAL THREE TIMES A DAY oxygen 04/05/2023 Unknown ORAL continu ous 3 LITERS RxNorm TAKE 3 LITERS ORAL continuous Milk Of Magnesia 400MG/5ML Oral Suspension 06/13/2023 07/27/2023 ORAL NEEDED DAILY 30 mL 293352 RxNorm TAKE 30 mL ORAL NEEDED DAILY predniSONE 20MG Oral Tablet 07/27/2023 10/16/2023 ORAL DAILY 2 TABLET 120256 RxNorm TAKE 2 TABLET ORAL DAILY predniSONE 20MG Oral Tablet 09/15/2023 10/16/2023 ORAL DAILY 2 TABLET 998848 RxNorm TAKE 2 TABLET ORAL DAILY Ibuprofen 200MG Oral Tablet 10/22/2023 Unknown ORAL NEEDED THREE TIMES A DAY 3 TABLET 608163 RxNorm TAKE 3 TABLET ORAL NEEDED THREE TIMES A DAY predniSONE 10MG Oral Tablet 10/22/2023 12/01/2023 ORAL TWICE A DAY 2 TABLET 790478 RxNorm TAKE 2 TABLET ORAL TWICE A DAY x 3 days then 1 tab twice a day x 5 days then 1 tab daily LORazepam 1MG Oral Tablet 10/22/2023 Unknown ORAL NEEDED TWICE DAILY 1 MILLIGRAMS 675183 RxNorm TAKE 1 MILLIGRAMS ORAL NEEDED TWICE DAILY Cefpodoxime Proxetil 200MG Oral Tablet 10/22/2023 11/28/2023 ORAL EVERY 12 HOURS 200 MILLIGRAMS 266113 RxNorm TAKE 200 MILLIGRAMS ORAL EVERY 12 HOURS Anoro Ellipta 62.5MCG-25MC G/1ACT Inhalation Powder 10/22/2023 Unknown INHALA TION DAILY 1 GRAM 7648255 RxNorm 1 GRAM INHALATION DAILY DULoxetine HCl 60MG Oral Capsule, Delayed Release 10/22/2023 Unknown ORAL DAILY 60 MILLIGRAMS 808956 RxNorm TAKE 60 MILLIGRAMS ORAL DAILY Linzess 145MCG Oral Capsule 10/22/2023 10/27/2023 ORAL DAILY 1 unit(s) 9485629 RxNorm TAKE 1 E ACH ORAL DAILY Lisinopril 40MG Oral Tablet 10/22/2023 Unknown ORAL DAILY 40 MILLIGRAMS 825008 RxNorm TAKE 40 MILLIGRAMS ORAL DAILY Methadone 10MG Oral Tablet 10/22/2023 Unknown ORAL DAILY 132 MILLIGRAMS RxNorm TAKE 132 MILLIGRAMS ORAL DAILY Pregabalin 200MG Oral Capsule 10/22/2023 Unknown ORAL THREE TIMES A DAY 200 MILLIGRAMS 008869 RxNorm TAKE 200 MILLIGRAMS ORAL THREE TIMES A DAY QUEtiapine Fumarate 300MG Oral Tablet 10/22/2023 Unknown ORAL BEDTIME 300 MILLIGRAMS 095700 RxNorm TAKE 300 MILLIGRAMS ORAL BEDTIME Testosterone Cypionate 200MG/1ML Intramuscula r Oil 10/22/2023 Unknown 3930742 RxNorm As directed Ventolin HFA 0.09MG/1Actu ation Inhalation Suspension 10/22/2023 Unknown INHALA TION NEEDED EVERY 4 HOURS 2 PUFF 370481 RxNorm 2 PUFF INHALATION NEEDED EVERY 4 HOURS Acetaminophe n 500MG Oral Tablet 10/22/2023 Unknown ORAL THREE TIMES A DAY 2 TABLET 345330 RxNorm TAKE 2 TABLET ORAL THREE TIMES A DAY predniSONE 10MG Oral Tablet 12/01/2023 12/07/2023 ORAL DAILY 4 TABLET 929832 RxNorm TAKE 4 TABLET ORAL DAILY x 3 days then 2 tabs daily x 3 days then 1 tab daily x 7 days Cefpodoxime Proxetil 200MG Oral Tablet 12/01/2023 12/07/2023 ORAL TWICE A DAY 1 TABLET 853006 RxNorm TAKE 1 TABLET ORAL TWICE A DAY levoFLOXacin 750MG Oral Tablet 12/25/2023 Unknown ORAL DAILY 1 TABLET 645116 RxNorm TAKE 1 TABLET ORAL DAILY predniSONE 50MG Oral Tablet 12/25/2023 Unknown ORAL DAILY 1 TABLET 620606 RxNorm TAKE 1 TABLET ORAL DAILY Assessment [...] Date Status Code Code System PNEUMONIA active 837504194 SNOMED-CT POLYSUBSTANCE ABUSE active 930573062 SNOMED-CT ACUTE AND CHRONIC RESPIRATORY FAILURE WITH HYPERCAPNIA active 4935248133018 SNOMED-CT ACUTE AND CHRONIC RESPIRATORY FAILURE WITH HYPOXIA active 65262011 SNOMED-CT COPD WITH EXACERBATION active 5982264 07 SNOMED-CT ALCOHOL USE WITH WITHDRAWAL active 400348599 SNOMED-CT CHRONIC RESPIRATORY FAILURE WITH HYPOXIA 10/03/2021 resolved 71621301 SNOMED- CT OTHER SEIZURES 10/03/2021 resolved 39829061 SNOM ED-CT PULMONARY NODULE 10/03/2021 resolved 395421199 SN OMED-CT CHRONIC HEPATITIS C 10/03/2021 resolved 638936443 SNOMED-CT ANXIETY DISORDER 10/03/2021 resolved 488303274 SN OMED-CT 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 10/03/2021 resolved [id number] SNOME D-CT NICOTINE DEPENDENCE 01/13/2021 resolved 86170723 SNOMED-CT VENOUS INSUFFICIENCY 10/03/2021 resolved 84104759 SNOMED-CT ALCOHOL INTOXICATION 11/26/2022 resolved 27480167 SNOMED-CT AMS 11/26/2022 resolved 536743343 SNOMED-CT HYPOKALEMIA 11/26/2022 resolved [id number] SNOMED- CT OPIATE TOXICITY 06/04/2023 resolved [id number] SNO MED-CT ACUTE ALCOHOL INTOXICATION 04/01/2023 resolved [id number] SNOMED-CT FEVER 06/04/2023 resolved [id number] SNOMED-CT ALTERED MENTAL STATUS 06/04/2023 resolved 3900030 04 SNOMED-CT CHRONIC HEADACHE DISORDER 10/03/2021 resolved [id number] 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 156881 00 SNOMED-CT ALCOHOL DEPENDENCE WITH WITHDRAWAL 01/13/2021 resolved [id number] SNOMED-CT HTN 10/03/2021 resolved 75302802 SNOMED-CT COPD 09/09/2021 resolved 79550634 SNOMED-CT HIGH CHOLESTEROL 09/09/2021 resolved 38503994 SN OMED-CT Allergies and Adverse Reactions Allergy Substance Reaction Severity Start Date Concern Status Code Code System PCN (penicillin) Anaphylaxis (SNOMED-CT: 63720028) Moderate Active [id number] SNOMED-CT Plan of Treatment X-RAY 03/21/2022 MRI BRAIN W WO CONTRAST 12/06/2021 MRI BRAIN W WO CONTRAST 11/30/2021 LAB DRAW 15MIN 05/13/2021 Encounters Encounter Diagnosis Start Date Code Code Sys tem Pneumonia, unspecified organism 02/12/2022 SNOMED-CT Personal Care Team Section Performer Name Performer Role Active Date Inactive Da te
--- OUTSIDE RECORDS SUMMARY | 2024-02-29 09:09 | XMS_ITS ---
Author Organization Unknown Address [address] [place] [address] [phone] Phone Care Team Providers Care Senior Technical Trainer Name Role Phone THERESA SAAB Registered Nurse Unavailable GINA Bee Attending Unavailable RAMIN Walsh Primary Unavailable UNLISTED PROVIDER - REQUESTED Xhandoff Un available Immunization Immunization Date Status Additional Notes Code Code System Tdap 10/03/2021 Completed 115 CVX Tdap 01/14/2022 Completed 115 CVX Results ORDER VENOUS BLOOD GAS* - Co llect Date/Time: 05/12/2022 14:42 [facility] ID: [id number] [address] [place] [address], [phone] LOINC: Test Value Unit Reference Range Code Code System Flag Specimen type: VENOUS pH (venous) 7.28 L=7.38 H=7.46 2746-6 LOINC L PCO2 (venous) 69.3 mm Hg L=41.0 H=51.0 2703-7 LOINC H PO2 (venous) 82 mm Hg L=30 H=50 2705-2 LOINC H HCO3 33 mmol/L L=22 H=26 1960-4 LOINC H TCO2 (venous) 35 mmol/L L=22 H=28 3533-7 LOINC H BASE EXCESS (venous) 6 mmol/L L=-2 H=3 3097-3 LOINC H Assist vent. Resp. Rate /min. Temp. LIPASE* NEW - Collect Date/T vannessa: 05/12/2022 12:44 [facility] ID: [id number] [address] [place] [address], [phone] LOINC: 3040-3 Test Value Unit Reference Range Code Code System Flag LIPASE. 39 U/L L=16 H=77 TROPONIN HIGH SENSITIVITY* - Collect Date/Time: 05/12/2022 12:44 [facility] ID: [id number] [address] [place] [address], 5661 LOINC: 58705-3 Test Value Unit Reference Range Code Code System Flag TROPONIN HS < 4.0 pg/mL L=0.0 H=60.4 Specimen seq. RANDOM COMPREHENSIVE METABOLIC PANE L (CMP) - Collect Date/Time: 05/12/2022 12:44 [facility] ID: [id number] [address] [place] [address], 5661 LOINC: 30167-4 Test Value Unit Reference Range Code Code System Flag GLUCOSE 110 mg/dL L=70 H=116 2345-7 LOINC BUN 16 mg/dL L=6 H=25 3094-0 LOINC CREATININE 0.74 mg/dL L=0.67 H=1.17 2160-0 LOINC SODIUM SERUM 142 mmol/L L=136 H=145 2951-2 LOINC POTASSIUM SERUM 4.1 mmol/L L=3.4 H=5.2 2823-3 LOINC CHLORIDE SERUM 102 mmol/L L=96 H=110 2075-0 LOINC CARBON DIOXIDE (CO2) 37 mmol/L L=22 H=34 2028-9 LOINC H ANION GAP 3.5 mmol/L 39035-2 LOINC CALCIUM SERUM 8.5 mg/dL L=8.2 H=10.2 80067-1 LOINC BILIRUBIN TOTAL 0.3 mg/dL L=0.0 H=1.3 1975-2 LOINC ALK. PHOS. 85 U/L L=46 H=116 6768-6 LOINC SGOT (AST) 20 U/L L=15 H=37 1920-8 LOINC SGPT (ALT) 24 U/L L=12 H=78 1742-6 LOINC TOTAL PROTEIN 8.1 gm/dL L=6.0 H=8.0 2885-2 LOINC H ALBUMIN 4.0 gm/dL L=3.4 H=5.0 1751-7 LOINC AGE 46 years eGFR (non-Afr.Amer.) 113 mL/min 90019-9 LOINC eGFR (Afr-Cymro) > 120 mL/min 32773-8 LOINC CBC W/ DIFFERENTIAL* - Colle ct Date/Time: 05/12/2022 12:44 [facility] ID: [id number] [address] [place], [place], [address] LOINC: 27822-4 Test Value Unit Reference Range Code Code System Flag WBC 5.29 th/cmm L=5.00 H=10.00 6690-2 LOINC NEUT % 72.5 % L=40.0 H=80.0 LYMPH % 22.5 % L=10.0 H=50.0 MONO % 3.6 % L=2.0 H=12.0 34236-8 LOINC EOS % 0.2 % L=0.0 H=8.0 BASO % 0.8 % L=0.0 H=3.0 IG % 0.4 % L=0.0 H=1.1 2514-8 LOINC NRBC % 0.0 % L=0.0 H=0.0 68247-5 LOINC NEUT abs count 3.8 th/cmm L=1.6 H=8.4 751-8 LOINC LYMPH abs count 1.2 th/cmm L=1.5 H=4.0 731-0 LOINC L MONO abs count 0.2 th/cmm L=0.2 H=1.0 742-7 LOINC EOS abs count 0.0 th/cmm L=0.0 H=0.5 711-2 LOINC BASO abs count 0.0 th/cmm L=0.0 H=0.2 704-7 LOINC IG abs count 0.0 th/cmm L=0.0 H=0.1 43883-7 LOINC NRBC abs count 0.0 mil/cmm L=0.0 H=0.0 81737-1 LOINC RBC 5.66 mil/cmm L=4.30 H=6.20 789-8 LOINC HEMOGLOBIN 17.8 gm/dL L=13.0 H=17.0 718-7 LOINC H HEMATOCRIT 55 % L=45 H=52 4544-3 LOINC H MCV 96 fL L=82 H=92 787-2 LOINC H MCH 31.4 pg L=27.0 H=31.0 785-6 LOINC H MCHC 32.7 % L=32.0 H=36.0 786-4 LOINC RDW-SD 50.7 fL L=39.0 H=49.0 788-0 LOINC H PLATELET COUNT 215 th/cmm L=150 H=450 777-[address] ABD PELVIS W IV CONTRAST ONLY - Completed: 05/12/2022 13:58 LOINC: [facility] [place], [place] [address] PACS M[employer] SPECIALIST REPORT Patient Name: ANTONIO DAUGHERTY MRN: Sex: : Age: [id number] M 1975 46 Account: Accession: Admit: StayType: [id number] 05/12/2022 E/R Ordered: Order ID: Submitted: Ordering Provider: 05/12/2022 13:02 [id number] IRIS LANDRY Completed: Technologist: Resulted: 05/12/2022 13:58 SLG 05/12/2022 14:11 Study Description: CT ABD PELVIS W IV CONTRAST ONLY Reason for Study: Abdominal Pain Imaging Protocol: Axial computed tomography images with coronal and sagittal reformatted images were created and reviewed. Contrast Material: Intravenous: Omnipaque 350 Contrast volume: 100 mL Comparison: 21 July 2018 FINDINGS: Lung Bases: Calcified granulomas. Chronic interstitial changes. Liver: Normal density. No suspicious measurable mass. Gallbladder and Biliary Tract: No radiodense calculus or dilation. Pancreas: Normal density, no abnormal calcifications or inflammatory process. Spleen: Normal. Adrenals: No masses seen. Kidneys: Normal size, contour and axis. No radiodense stones. No obstructive uropathy. Right renal cyst. No suspicious masses seen. Abdominal Aorta: Abdominal portion non-dilated. IVC filter. Bowel: Large quantity of stool. No obstruction or bowel wall thickening. Appendix is unremarkable. Peritoneal Cavity: No ascites, collection or mesenteric inflammatory response. No free air. Lymph Nodes: Within normal limits. Bones: Unremarkable for the patient's age. Soft Tissues: Unremarkable. Bladder: Symmetric distention, no gross wall thickening. Reproductive Organs: Unremarkable as visualized. Lymph Nodes: Within normal limits. IMPRESSION: No acute abnormality is identified in the abdomen and pelvis. Radiation Optimization: All CT scans at this facility use at least one of these dose optimization techniques: automated exposure control; mA and/or kV adjustment per patient size (includes targeted exams where dose is matched to clinical indication); or iterative reconstruction. Report Digitally Signed by Nidia Blackburn on 05/12/2022 02:11 PM EST XR CHEST 2V PA AND LATERAL - Completed: 05/12/2022 17:05 [facility]: [facility] [place], [place] [address] PACS MUSEUM SPECIALIST REPORT Patient Name: ANTONIO DAUGHERTY MRN: Sex: : Age: [id number] M 1975 46 Account: Accession: Admit: StayType: [id number] 05/12/2022 E/R Ordered: Order ID: Submitted: Ordering Provider: 05/12/2022 13:02 [id number] IRIS LANDRY Completed: Technologist: Resulted: 05/12/2022 13:02 05/12/2022 15:17 Study Description: XR CHEST 2V PA AND LATERAL Study Reason: Chest Pain TECHNIQUE: 3 Views FINDINGS: Comparison 09 Sep 2021 The heart size is normal. Multiple calcified granulomas are noted, greatest at the left lung base. There is mildly increased interstitial changes noted. No infiltrate, effusion or pulmonary edema. No pneumothorax. Mild compression fracture upper thoracic spine, unchanged.. IMPRESSION: No acute abnormality. Report Digitally Signed by Nidia Blackburn on 05/12/2022 03:17 PM EST Social History Type Status Start Date End Date Code Code Syst em Smoking History Current every day smoker 532296051 SNOMED CT Smoking History Light tobacco smoker [id number] Smoking History Smoker, current status unknown 36991683 SNOMED CT Sex Male Vital Signs Vital Sign Value Unit Erath Value Erath Unit Date/Time Recent/Initial? Code Code System Body Mass Index 25.09 kg/m2 05/12/2022 12:32 Initial 61641 -5 LOINC Systolic Blood Pressure 129 mm[Hg] 05/12/2022 16:11 Most Recent 8480- 6 LOINC Diastolic Blood Pressure 95 mm[Hg] 05/12/2022 16:11 Most Recent 8462- 4 LOINC Systolic Blood Pressure 124 mm[Hg] 05/12/2022 12:32 Initial 8480- 6 LOINC Diastolic Blood Pressure 92 mm[Hg] 05/12/2022 12:32 Initial 8462- 4 LOINC Body Surface Area 1.89 m2 05/12/2022 12:32 Initial 3140- 1 LOINC Height 172.720 0 cm 68.00 in 05/12/2022 12:32 Initial 8302- 2 LOINC O2 Saturation 92 % 2022 16:11 Most Recent 68952 -5 LOINC O2 Saturation 93 % 2022 12:32 Initial 65023 -5 LOINC Inhaled Oxygen Flow Rate 2.00 L/min 05/12/2022 16:11 Most Recent 3151- 8 LOINC Inhaled Oxygen Flow Rate 2.00 L/min 05/12/2022 12:32 Initial 3151- 8 [facility] Pulse 61.0 /min 05/12/2022 16:11 Most Recent 8867- 4 [facility] Pulse 67.0 /min 05/12/2022 12:32 Initial 8867- 4 [facility] Respiration 20 /min 05/12/19 16:11 Most Recent 9279- 1 [facility] Respiration 24 /min 05/12/19 12:32 Initial 9279- 1 [facility] Temperature 36.4 Regina 97.5 F 05/12/19 12:32 Initial 8310- 5 [facility] Weight 74.84 kg 165.00 lbs 05/12/2022 12:32 Initial 80330 -7 [facility] Medications Medication Start Date End Date Route Frequency Dose Code Code System Medication Instructions Home Meds Lisinopril 20MG Oral Tablet 04/01/2019 12/01/2022 ORAL DAILY 20 MILLIGRAMS 210578 RxNorm TAKE 20 MILLIGRAMS ORAL DAILY Pregabalin 200MG Oral Capsule 04/01/2019 07/27/2023 ORAL THREE TIMES A DAY 200 MILLIGRAMS 441333 RxNorm TAKE 200 MILLIGRAMS ORAL THREE TIMES A DAY ProAir HFA 0.09MG/1Actu ation Inhalation Suspension 04/01/2019 05/12/2022 INHALA TION NEEDED FOUR TIMES A DAY 2 unit(s) 138596 RxNorm 2 EACH INHALATION NEEDED FOUR TIMES A DAY DULoxetine HCl 60MG Oral Capsule, Delayed Release 10/22/2019 07/27/2023 ORAL DAILY 60 MILLIGRAMS 099688 RxNorm TAKE 60 MILLIGRAMS ORAL DAILY QUEtiapine Fumarate 300MG Oral Tablet 10/22/2019 05/12/2022 ORAL BEDTIME 300 MILLIGRAMS 581951 RxNorm TAKE 300 MILLIGRAMS ORAL BEDTIME Ibuprofen 200MG Oral Tablet 01/15/2021 11/25/2022 ORAL NEEDED THREE TIMES A DAY 600 MILLIGRAMS 006146 RxNorm TAKE 600 MILLIGRAMS ORAL NEEDED THREE TIMES A DAY LORazepam 0.5MG Oral Tablet 01/15/2021 05/12/2022 ORAL NEEDED TWICE DAILY 0.5 MILLIGRAMS 107436 RxNorm TAKE 0.5 MILLIGRAMS ORAL NEEDED TWICE DAILY Albuterol Sulfate 0.083% Inhalation Solution 10/05/2021 11/25/2022 INHALA TION NEEDED EVERY 4 HOURS 1 unit(s) 949765 RxNorm 1 EACH INHALATION NEEDED EVERY 4 HOURS Anoro Ellipta 62.5MCG-25MC G/1ACT Inhalation Powder 10/05/2021 07/27/2023 INHALA TION TWICE A DAY 1 PUFF 0138586 RxNorm 1 PUFF INHALATION TWICE A DAY Methadone HCl 40MG Oral Tablet for Suspension 10/05/2021 07/27/2023 ORAL DAILY 132 MILLIGRAMS 332872 RxNorm TAKE 132 MILLIGRAMS ORAL DAILY Zonisamide 100MG Oral Capsule 12/22/2021 05/12/2022 ORAL TWICE A DAY 100 MILLIGRAMS 802080 RxNorm TAKE 100 MILLIGRAMS ORAL TWICE A DAY predniSONE 10MG Oral Tablet 02/16/2022 11/25/2022 ORAL THREE TIMES A DAY WITH FOOD 10 MILLIGRAMS 400309 RxNorm TAKE 10 MILLIGRAMS ORAL THREE TIMES A DAY WITH FOOD SEROquel 300MG Oral Tablet 02/16/2022 12/22/2022 ORAL BEDTIME 300 MILLIGRAMS 858297 RxNorm TAKE 300 MILLIGRAMS ORAL BEDTIME Cephalexin 500MG Oral Capsule 02/16/2022 05/12/2022 ORAL THREE TIMES A DAY 1 CAPSULE 860933 RxNorm TAKE 1 CAPSULE ORAL THREE TIMES A DAY MiraLAX 17GM/1Dose Oral Powder for Solution 05/12/2022 11/25/2022 ORAL DAILY 17 GRAM 698513 RxNorm TAKE 17 GRAM ORAL DAILY Cefpodoxime Proxetil 200MG Oral Tablet 12/01/2022 12/22/2022 ORAL EVERY 12 HOURS 200 MILLIGRAMS 517803 RxNorm TAKE 200 MILLIGRAMS ORAL EVERY 12 HOURS Ibuprofen 600MG Oral Tablet 12/01/2022 07/27/2023 ORAL NEEDED THREE TIMES A DAY 600 MILLIGRAMS 652541 RxNorm TAKE 600 MILLIGRAMS ORAL NEEDED THREE TIMES A DAY FOR PAIN Combivent Respimat 100MCG-20MCG /1Act Inhalation Allgood 12/01/2022 07/27/2023 INHALA TION NEEDED EVERY 8 HOURS 1 unit(s) 2021934 RxNorm 1 EACH INHALATION NEEDED EVERY 8 HOURS Depo-Testost erone Novaplus 200MG/1ML Intramuscula r Oil 12/01/2022 07/27/2023 INTRAM USCULA R 1 unit(s) 444361 RxNorm INJECT 1 EACH INTRAMUSCULA R Flovent 0.22MG/1Actu ation Inhalation Aerosol Powder 12/01/2022 07/27/2023 INHALA TION TWICE A DAY 1 unit(s) 695720 RxNorm 1 EACH INHALATION TWICE A DAY Ventolin HFA 0.09MG/1Actu ation Inhalation Suspension 12/01/2022 07/27/2023 INHALA TION 1 unit(s) 744313 RxNorm 1 EACH INHALATION Zonisamide 100MG Oral Capsule 12/01/2022 07/27/2023 ORAL DAILY 200 MILLIGRAMS 184488 RxNorm TAKE 200 MILLIGRAMS ORAL DAILY guaiFENesin 600MG Oral Tablet, Extended Release 12/01/2022 12/01/2022 ORAL NEEDED TWICE DAILY 1 TABLET 378113 RxNorm TAKE 1 TABLET ORAL NEEDED TWICE DAILY FOR COUGH predniSONE 10MG Oral Tablet 12/01/2022 12/01/2022 ORAL DAILY 2 TABLET 861431 RxNorm TAKE 2 TABLET ORAL DAILY X 5 DAYS THEN 1 TAB DAILY X 5 DAYS THEN STOP guaiFENesin 600MG Oral Tablet, Extended Release 12/01/2022 07/27/2023 ORAL NEEDED TWICE DAILY 1 TABLET 206910 RxNorm TAKE 1 TABLET ORAL NEEDED TWICE DAILY FOR COUGH predniSONE 10MG Oral Tablet 12/01/2022 12/22/2022 ORAL DAILY 2 TABLET 955942 RxNorm TAKE 2 TABLET ORAL DAILY X 5 DAYS THEN 1 TAB DAILY X 5 DAYS THEN STOP Acetaminophe n 500MG Oral Tablet 12/01/2022 07/27/2023 ORAL NEEDED THREE TIMES A DAY 2 TABLET 842056 RxNorm TAKE 2 TABLET ORAL NEEDED THREE TIMES A DAY FOR PAIN Lisinopril 40MG Oral Tablet 12/01/2022 07/27/2023 ORAL DAILY 1 TABLET 592644 RxNorm TAKE 1 TABLET ORAL DAILY predniSONE 20MG Oral Tablet 12/22/2022 04/02/2023 ORAL DAILY 1 TABLET 933303 RxNorm TAKE 3 TABLETS DAILY FOR 3 DAYS, THEN 2 TABLETS DAILY FOR 3 DAYS, THEN 1 TABLET DAILY FOR 3 DAYS Albuterol Sulfate 0.09MG/1Actu ation Inhalation Suspension 12/30/2022 07/27/2023 INHALA TION NEEDED EVERY 4 HOURS 2 PUFF 7608815 RxNorm 2 PUFF INHALATION NEEDED EVERY 4 HOURS FOR Shortness of breath Narcan 4MG/0.1ML Nasal Allgood 12/30/2022 07/27/2023 NASAL NEEDED 1 SPRAY 1943547 RxNorm SPRAY 1 SPRAY NASAL NEEDED FOR OPIATE OVERDOSE QUEtiapine 300MG Oral Tablet 04/05/2023 07/27/2023 ORAL BEDTIME 300 MILLIGRAMS 297583 RxNorm TAKE 300 MILLIGRAMS ORAL BEDTIME Senna Plus 50MG-8.6MG Oral Tablet 04/05/2023 07/27/2023 ORAL TWICE A DAY 2 TABLET 555934 RxNorm TAKE 2 TABLET ORAL TWICE A DAY busPIRone 15MG Oral Tablet 04/05/2023 07/27/2023 ORAL THREE TIMES A DAY 15 MILLIGRAMS 753313 RxNorm TAKE 15 MILLIGRAMS ORAL THREE TIMES A DAY Cefpodoxime Proxetil 200MG Oral Tablet 04/05/2023 06/04/2023 ORAL TWICE A DAY 1 TABLET 431322 RxNorm TAKE 1 TABLET ORAL TWICE A DAY predniSONE 10MG Oral Tablet 04/05/2023 06/04/2023 ORAL TWICE A DAY 2 TABLET 128087 RxNorm TAKE 2 TABLET ORAL TWICE A DAY for 3 days then 2 tabs daily x 3 days then 1 tab daily x 3 days oxygen 04/05/2023 Unknown ORAL continu ous 3 LITERS RxNorm TAKE 3 LITERS ORAL continuous Milk Of Magnesia 400MG/5ML Oral Suspension 06/13/2023 07/27/2023 ORAL NEEDED DAILY 30 mL 086406 RxNorm TAKE 30 mL ORAL NEEDED DAILY predniSONE 20MG Oral Tablet 07/27/2023 10/16/2023 ORAL DAILY 2 TABLET 840201 RxNorm TAKE 2 TABLET ORAL DAILY predniSONE 20MG Oral Tablet 09/15/2023 10/16/2023 ORAL DAILY 2 TABLET 998344 RxNorm TAKE 2 TABLET ORAL DAILY Testosterone Cypionate 200MG/1ML Intramuscula r Oil 10/22/2023 Unknown 8328507 RxNorm As directed Ventolin HFA 0.09MG/1Actu ation Inhalation Suspension 10/22/2023 Unknown INHALA TION NEEDED EVERY 4 HOURS 2 PUFF 542550 RxNorm 2 PUFF INHALATION NEEDED EVERY 4 HOURS Acetaminophe n 500MG Oral Tablet 10/22/2023 Unknown ORAL THREE TIMES A DAY 2 TABLET 987333 RxNorm TAKE 2 TABLET ORAL THREE TIMES A DAY Ibuprofen 200MG Oral Tablet 10/22/2023 Unknown ORAL NEEDED THREE TIMES A DAY 3 TABLET 313318 RxNorm TAKE 3 TABLET ORAL NEEDED THREE TIMES A DAY predniSONE 10MG Oral Tablet 10/22/2023 12/01/2023 ORAL TWICE A DAY 2 TABLET 19800803 RxNorm TAKE 2 TABLET ORAL TWICE A DAY x 3 days then 1 tab twice a day x 5 days then 1 tab daily Linzess 145MCG Oral Capsule 10/22/2023 10/27/2023 ORAL DAILY 1 unit(s) 7263377 RxNorm TAKE 1 E ACH ORAL DAILY Cefpodoxime Proxetil 200MG Oral Tablet 10/22/2023 11/28/2023 ORAL EVERY 12 HOURS 200 MILLIGRAMS 242881 RxNorm TAKE 200 MILLIGRAMS ORAL EVERY 12 HOURS Anoro Ellipta 62.5MCG-25MC G/1ACT Inhalation Powder 10/22/2023 Unknown INHALA TION DAILY 1 GRAM 0769298 RxNorm 1 GRAM INHALATION DAILY DULoxetine HCl 60MG Oral Capsule, Delayed Release 10/22/2023 Unknown ORAL DAILY 60 MILLIGRAMS 941800 RxNorm TAKE 60 MILLIGRAMS ORAL DAILY LORazepam 1MG Oral Tablet 10/22/2023 Unknown ORAL NEEDED TWICE DAILY 1 MILLIGRAMS RxNorm TAKE 1 MILLIGRAMS ORAL NEEDED TWICE DAILY Lisinopril 40MG Oral Tablet 10/22/2023 Unknown ORAL DAILY 40 MILLIGRAMS 19771202 RxNorm TAKE 40 MILLIGRAMS ORAL DAILY Methadone 10MG Oral Tablet 10/22/2023 Unknown ORAL DAILY 132 MILLIGRAMS RxNorm TAKE 132 MILLIGRAMS ORAL DAILY Pregabalin 200MG Oral Capsule 10/22/2023 Unknown ORAL THREE TIMES A DAY 200 MILLIGRAMS 436551 RxNorm TAKE 200 MILLIGRAMS ORAL THREE TIMES A DAY QUEtiapine Fumarate 300MG Oral Tablet 10/22/2023 Unknown ORAL BEDTIME 300 MILLIGRAMS 770451 RxNorm TAKE 300 MILLIGRAMS ORAL BEDTIME predniSONE 10MG Oral Tablet 12/01/2023 12/07/2023 ORAL DAILY 4 TABLET 968278 RxNorm TAKE 4 TABLET ORAL DAILY x 3 days then 2 tabs daily x 3 days then 1 tab daily x 7 days Cefpodoxime Proxetil 200MG Oral Tablet 12/01/2023 12/07/2023 ORAL TWICE A DAY 1 TABLET 942996 RxNorm TAKE 1 TABLET ORAL TWICE A DAY levoFLOXacin 750MG Oral Tablet 12/25/2023 Unknown ORAL DAILY 1 TABLET 929258 RxNorm TAKE 1 TABLET ORAL DAILY predniSONE 50MG Oral Tablet 12/25/2023 Unknown ORAL DAILY 1 TABLET 323897 RxNorm TAKE 1 TABLET ORAL DAILY Assessment [...] Date Status Code Code System PNEUMONIA active 947129628 SNOMED-CT POLYSUBSTANCE ABUSE active 611494198 SNOMED-CT ACUTE AND CHRONIC RESPIRATORY FAILURE WITH HYPERCAPNIA active 2283375464708 SNOMED-CT ACUTE AND CHRONIC RESPIRATORY FAILURE WITH HYPOXIA active 67260638 SNOMED-CT COPD WITH EXACERBATION active 2215826 07 SNOMED-CT ALCOHOL USE WITH WITHDRAWAL active 458678385 SNOMED-CT CHRONIC RESPIRATORY FAILURE WITH HYPOXIA 10/03/2021 resolved 73255123 SNOMED- CT OTHER SEIZURES 10/03/2021 resolved 80627688 SNOM ED-CT PULMONARY NODULE 10/03/2021 resolved 920702906 SN OMED-CT CHRONIC HEPATITIS C 10/03/2021 resolved 244755813 SNOMED-CT ANXIETY DISORDER 10/03/2021 resolved 622869375 SN OMED-CT 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 10/03/2021 resolved 442089332792225 SNOME D-CT NICOTINE DEPENDENCE 01/13/2021 resolved 65589472 SNOMED-CT VENOUS INSUFFICIENCY 10/03/2021 resolved 50872483 SNOMED-CT ALCOHOL INTOXICATION 11/26/2022 resolved 79114043 SNOMED-CT AMS 11/26/2022 resolved 095633607 SNOMED-CT HYPOKALEMIA 11/26/2022 resolved 27200358 SNOMED- CT OPIATE TOXICITY 06/04/2023 resolved 133664961 SNO MED-CT ACUTE ALCOHOL INTOXICATION 04/01/2023 resolved 4779428845 SNOMED-CT FEVER 06/04/2023 resolved 427521566 SNOMED-CT ALTERED MENTAL STATUS 06/04/2023 resolved 2554024 04 SNOMED-CT CHRONIC HEADACHE DISORDER 10/03/2021 resolved 322659925 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 900874 00 SNOMED-CT ALCOHOL DEPENDENCE WITH WITHDRAWAL 01/13/2021 resolved 66873240 SNOMED-CT HTN 10/03/2021 resolved 72552554 SNOMED-CT COPD 09/09/2021 resolved 87105593 SNOMED-CT HIGH CHOLESTEROL 09/09/2021 resolved 67411673 SN OMED-CT Allergies and Adverse Reactions Allergy Substance Reaction Severity Start Date Concern Status Code Code System PCN (penicillin) Anaphylaxis (SNOMED-CT: 71505400) Moderate Active 7195794 SNOMED-CT Plan of Treatment X-RAY 03/21/2022 MRI BRAIN W WO CONTRAST 12/06/2021 MRI BRAIN W WO CONTRAST 11/30/2021 LAB DRAW 15MIN 05/13/2021 Encounters Encounter Diagnosis Start Date Code Code Sys tem Chronic obstructive pulmonar y disease with (acute) exacerbation 05/12/2022 SNOMED-CT Personal Care Team Section Performer Name Performer Role Active Date Inactive Da elias
--- OUTSIDE RECORDS SUMMARY | 2024-02-29 09:09 | XMS_ITS ---
Author Organization Unknown Address [address] [place] [phone] Phone Care Team Providers Care [employer] Name Role Phone ADRIANNA JARA Gayatri Attending Unavailable Immunization Immunization Date Status Additional Notes Code Code System Tdap 10/03/2021 Completed 115 CVX Tdap 01/14/2022 Completed 115 CVX Social History Type Status Start Date End Date Code Code Syst em Smoking History Current every day smoker [id number] SNOMED CT Smoking History Light tobacco smoker [id number] Smoking History Smoker, current status unknown 34927240 SNOMED CT Sex Male Medications Medication Start Date End Date Route Frequency Dose Code Code System Medication Instructions Home Meds Lisinopril 20MG Oral Tablet 04/01/2019 12/01/2022 ORAL DAILY 20 MILLIGRAMS 006809 RxNorm TAKE 20 MILLIGRAMS ORAL DAILY ProAir HFA 0.09MG/1Actu ation Inhalation Suspension 04/01/2019 05/12/2022 INHALA TION NEEDED FOUR TIMES A DAY 2 unit(s) 837009 RxNorm 2 EACH INHALATION NEEDED FOUR TIMES A DAY Pregabalin 200MG Oral Capsule 04/01/2019 07/27/2023 ORAL THREE TIMES A DAY 200 MILLIGRAMS 820941 RxNorm TAKE 200 MILLIGRAMS ORAL THREE TIMES A DAY DULoxetine HCl 60MG Oral Capsule, Delayed Release 10/22/2019 07/27/2023 ORAL DAILY 60 MILLIGRAMS 387295 RxNorm TAKE 60 MILLIGRAMS ORAL DAILY QUEtiapine Fumarate 300MG Oral Tablet 10/22/2019 05/12/2022 ORAL BEDTIME 300 MILLIGRAMS 270456 RxNorm TAKE 300 MILLIGRAMS ORAL BEDTIME Nicoderm CQ 14MG/24HR Transdermal Patch, Extended Release 01/15/2021 02/12/2022 TRANSD ERMAL DAILY 1 unit(s) RxNorm APPLY 1 EACH TRANSDERMAL DAILY Ibuprofen 200MG Oral Tablet 01/15/2021 11/25/2022 ORAL NEEDED THREE TIMES A DAY 600 MILLIGRAMS 538784 RxNorm TAKE 600 MILLIGRAMS ORAL NEEDED THREE TIMES A DAY LORazepam 0.5MG Oral Tablet 01/15/2021 05/12/2022 ORAL NEEDED TWICE DAILY 0.5 MILLIGRAMS 869891 RxNorm TAKE 0.5 MILLIGRAMS ORAL NEEDED TWICE DAILY Anoro Ellipta 62.5MCG-25MC G/1ACT Inhalation Powder 10/05/2021 07/27/2023 INHALA TION TWICE A DAY 1 PUFF 4560204 RxNorm 1 PUFF INHALATION TWICE A DAY Albuterol Sulfate 0.083% Inhalation Solution 10/05/2021 11/25/2022 INHALA TION NEEDED EVERY 4 HOURS 1 unit(s) 641731 RxNorm 1 EACH INHALATION NEEDED EVERY 4 HOURS Methadone HCl 40MG Oral Tablet for Suspension 10/05/2021 07/27/2023 ORAL DAILY 132 MILLIGRAMS 804260 RxNorm TAKE 132 MILLIGRAMS ORAL DAILY Zonisamide 100MG Oral Capsule 12/22/2021 05/12/2022 ORAL TWICE A DAY 100 MILLIGRAMS 429668 RxNorm TAKE 100 MILLIGRAMS ORAL TWICE A DAY Keflex 500MG Oral Capsule 01/14/2022 02/12/2022 ORAL THREE TIMES A DAY 1 CAPSULE 827951 RxNorm TAKE 1 CAPSULE ORAL THREE TIMES A DAY predniSONE 10MG Oral Tablet 02/16/2022 11/25/2022 ORAL THREE TIMES A DAY WITH FOOD 10 MILLIGRAMS 347329 RxNorm TAKE 10 MILLIGRAMS ORAL THREE TIMES A DAY WITH FOOD SEROquel 300MG Oral Tablet 02/16/2022 12/22/2022 ORAL BEDTIME 300 MILLIGRAMS 488674 RxNorm TAKE 300 MILLIGRAMS ORAL BEDTIME Cephalexin 500MG Oral Capsule 02/16/2022 02/16/2022 ORAL THREE TIMES A DAY 1 CAPSULE 000637 RxNorm TAKE 1 CAPSULE ORAL THREE TIMES A DAY Cephalexin 500MG Oral Capsule 02/16/2022 05/12/2022 ORAL THREE TIMES A DAY 1 CAPSULE 006414 RxNorm TAKE 1 CAPSULE ORAL THREE TIMES A DAY MiraLAX 17GM/1Dose Oral Powder for Solution 05/12/2022 11/25/2022 ORAL DAILY 17 GRAM 288159 RxNorm TAKE 17 GRAM ORAL DAILY Ventolin HFA 0.09MG/1Actu ation Inhalation Suspension 12/01/2022 07/27/2023 INHALA TION 1 unit(s) 336468 RxNorm 1 EACH INHALATION Cefpodoxime Proxetil 200MG Oral Tablet 12/01/2022 12/22/2022 ORAL EVERY 12 HOURS 200 MILLIGRAMS 698783 RxNorm TAKE 200 MILLIGRAMS ORAL EVERY 12 HOURS Ibuprofen 600MG Oral Tablet 12/01/2022 07/27/2023 ORAL NEEDED THREE TIMES A DAY 600 MILLIGRAMS 036705 RxNorm TAKE 600 MILLIGRAMS ORAL NEEDED THREE TIMES A DAY FOR PAIN Combivent Respimat 100MCG-20MCG /1Act Inhalation [place] 12/01/2022 07/27/2023 INHALA TION NEEDED EVERY 8 HOURS 1 unit(s) 4425412 RxNorm 1 EACH INHALATION NEEDED EVERY 8 HOURS Depo-Testost erone Novaplus 200MG/1ML Intramuscula r Oil 12/01/2022 07/27/2023 INTRAM USCULA R 1 unit(s) 884184 RxNorm INJECT 1 EACH INTRAMUSCULA R Flovent 0.22MG/1Actu ation Inhalation Aerosol Powder 12/01/2022 07/27/2023 INHALA TION TWICE A DAY 1 unit(s) 739689 RxNorm 1 EACH INHALATION TWICE A DAY Zonisamide 100MG Oral Capsule 12/01/2022 07/27/2023 ORAL DAILY 200 MILLIGRAMS 300427 RxNorm TAKE 200 MILLIGRAMS ORAL DAILY guaiFENesin 600MG Oral Tablet, Extended Release 12/01/2022 12/01/2022 ORAL NEEDED TWICE DAILY 1 TABLET 868292 RxNorm TAKE 1 TABLET ORAL NEEDED TWICE DAILY FOR COUGH predniSONE 10MG Oral Tablet 12/01/2022 12/01/2022 ORAL DAILY 2 TABLET 223612 RxNorm TAKE 2 TABLET ORAL DAILY X 5 DAYS THEN 1 TAB DAILY X 5 DAYS THEN STOP guaiFENesin 600MG Oral Tablet, Extended Release 12/01/2022 07/27/2023 ORAL NEEDED TWICE DAILY 1 TABLET 919951 RxNorm TAKE 1 TABLET ORAL NEEDED TWICE DAILY FOR COUGH predniSONE 10MG Oral Tablet 12/01/2022 12/22/2022 ORAL DAILY 2 TABLET 415528 RxNorm TAKE 2 TABLET ORAL DAILY X 5 DAYS THEN 1 TAB DAILY X 5 DAYS THEN STOP Acetaminophe n 500MG Oral Tablet 12/01/2022 07/27/2023 ORAL NEEDED THREE TIMES A DAY 2 TABLET 084748 RxNorm TAKE 2 TABLET ORAL NEEDED THREE TIMES A DAY FOR PAIN Lisinopril 40MG Oral Tablet 12/01/2022 07/27/2023 ORAL DAILY 1 TABLET 047308 RxNorm TAKE 1 TABLET ORAL DAILY predniSONE 20MG Oral Tablet 12/22/2022 04/02/2023 ORAL DAILY 1 TABLET 481519 RxNorm TAKE 3 TABLETS DAILY FOR 3 DAYS, THEN 2 TABLETS DAILY FOR 3 DAYS, THEN 1 TABLET DAILY FOR 3 DAYS Narcan 4MG/0.1ML Nasal [place] 12/30/2022 07/27/2023 NASAL NEEDED 1 SPRAY 3068034 RxNorm SPRAY 1 SPRAY NASAL NEEDED FOR OPIATE OVERDOSE Albuterol Sulfate 0.09MG/1Actu ation Inhalation Suspension 12/30/2022 07/27/2023 INHALA TION NEEDED EVERY 4 HOURS 2 PUFF 1758526 RxNorm 2 PUFF INHALATION NEEDED EVERY 4 HOURS FOR Shortness of breath Cefpodoxime Proxetil 200MG Oral Tablet 04/05/2023 06/04/2023 ORAL TWICE A DAY 1 TABLET 247650 RxNorm TAKE 1 TABLET ORAL TWICE A DAY QUEtiapine 300MG Oral Tablet 04/05/2023 07/27/2023 ORAL BEDTIME 300 MILLIGRAMS 977633 RxNorm TAKE 300 MILLIGRAMS ORAL BEDTIME predniSONE 10MG Oral Tablet 04/05/2023 06/04/2023 ORAL TWICE A DAY 2 TABLET 319637 RxNorm TAKE 2 TABLET ORAL TWICE A DAY for 3 days then 2 tabs daily x 3 days then 1 tab daily x 3 days Senna Plus 50MG-8.6MG Oral Tablet 04/05/2023 07/27/2023 ORAL TWICE A DAY 2 TABLET 630915 RxNorm TAKE 2 TABLET ORAL TWICE A DAY busPIRone 15MG Oral Tablet 04/05/2023 07/27/2023 ORAL THREE TIMES A DAY 15 MILLIGRAMS 557225 RxNorm TAKE 15 MILLIGRAMS ORAL THREE TIMES A DAY oxygen 04/05/2023 Unknown ORAL continu ous 3 LITERS RxNorm TAKE 3 LITERS ORAL continuous Milk Of Magnesia 400MG/5ML Oral Suspension 06/13/2023 07/27/2023 ORAL NEEDED DAILY 30 mL 418394 RxNorm TAKE 30 mL ORAL NEEDED DAILY predniSONE 20MG Oral Tablet 07/27/2023 10/16/2023 ORAL DAILY 2 TABLET 228133 RxNorm TAKE 2 TABLET ORAL DAILY predniSONE 20MG Oral Tablet 09/15/2023 10/16/2023 ORAL DAILY 2 TABLET 455600 RxNorm TAKE 2 TABLET ORAL DAILY Ibuprofen 200MG Oral Tablet 10/22/2023 Unknown ORAL NEEDED THREE TIMES A DAY 3 TABLET 152408 RxNorm TAKE 3 TABLET ORAL NEEDED THREE TIMES A DAY predniSONE 10MG Oral Tablet 10/22/2023 12/01/2023 ORAL TWICE A DAY 2 TABLET 099556 RxNorm TAKE 2 TABLET ORAL TWICE A DAY x 3 days then 1 tab twice a day x 5 days then 1 tab daily LORazepam 1MG Oral Tablet 10/22/2023 Unknown ORAL NEEDED TWICE DAILY 1 MILLIGRAMS 856167 RxNorm TAKE 1 MILLIGRAMS ORAL NEEDED TWICE DAILY Cefpodoxime Proxetil 200MG Oral Tablet 10/22/2023 11/28/2023 ORAL EVERY 12 HOURS 200 MILLIGRAMS 648256 RxNorm TAKE 200 MILLIGRAMS ORAL EVERY 12 HOURS Anoro Ellipta 62.5MCG-25MC G/1ACT Inhalation Powder 10/22/2023 Unknown INHALA TION DAILY 1 GRAM 3987749 RxNorm 1 GRAM INHALATION DAILY DULoxetine HCl 60MG Oral Capsule, Delayed Release 10/22/2023 Unknown ORAL DAILY 60 MILLIGRAMS 864615 RxNorm TAKE 60 MILLIGRAMS ORAL DAILY Linzess 145MCG Oral Capsule 10/22/2023 10/27/2023 ORAL DAILY 1 unit(s) 1178314 RxNorm TAKE 1 E ACH ORAL DAILY Lisinopril 40MG Oral Tablet 10/22/2023 Unknown ORAL DAILY 40 MILLIGRAMS 881781 RxNorm TAKE 40 MILLIGRAMS ORAL DAILY Methadone 10MG Oral Tablet 10/22/2023 Unknown ORAL DAILY 132 MILLIGRAMS RxNorm TAKE 132 MILLIGRAMS ORAL DAILY Pregabalin 200MG Oral Capsule 10/22/2023 Unknown ORAL THREE TIMES A DAY 200 MILLIGRAMS 715268 RxNorm TAKE 200 MILLIGRAMS ORAL THREE TIMES A DAY QUEtiapine Fumarate 300MG Oral Tablet 10/22/2023 Unknown ORAL BEDTIME 300 MILLIGRAMS 613326 RxNorm TAKE 300 MILLIGRAMS ORAL BEDTIME Testosterone Cypionate 200MG/1ML Intramuscula r Oil 10/22/2023 Unknown 8523312 RxNorm As directed Ventolin HFA 0.09MG/1Actu ation Inhalation Suspension 10/22/2023 Unknown INHALA TION NEEDED EVERY 4 HOURS 2 PUFF 325811 RxNorm 2 PUFF INHALATION NEEDED EVERY 4 HOURS Acetaminophe n 500MG Oral Tablet 10/22/2023 Unknown ORAL THREE TIMES A DAY 2 TABLET 773518 RxNorm TAKE 2 TABLET ORAL THREE TIMES A DAY predniSONE 10MG Oral Tablet 12/01/2023 12/07/2023 ORAL DAILY 4 TABLET 622489 RxNorm TAKE 4 TABLET ORAL DAILY x 3 days then 2 tabs daily x 3 days then 1 tab daily x 7 days Cefpodoxime Proxetil 200MG Oral Tablet 12/01/2023 12/07/2023 ORAL TWICE A DAY 1 TABLET 771077 RxNorm TAKE 1 TABLET ORAL TWICE A DAY levoFLOXacin 750MG Oral Tablet 12/25/2023 Unknown ORAL DAILY 1 TABLET 826925 RxNorm TAKE 1 TABLET ORAL DAILY predniSONE 50MG Oral Tablet 12/25/2023 Unknown ORAL DAILY 1 TABLET 458023 RxNorm TAKE 1 TABLET ORAL DAILY Assessment [...] Date Status Code Code System PNEUMONIA active [id number] SNOMED-CT POLYSUBSTANCE ABUSE active 668854957 SNOMED-CT ACUTE AND CHRONIC RESPIRATORY FAILURE WITH HYPERCAPNIA active 1858898873713 SNOMED-CT ACUTE AND CHRONIC RESPIRATORY FAILURE WITH HYPOXIA active 32870774 SNOMED-CT COPD WITH EXACERBATION active 4056022 07 SNOMED-CT ALCOHOL USE WITH WITHDRAWAL active 276627564 SNOMED-CT CHRONIC RESPIRATORY FAILURE WITH HYPOXIA 10/03/2021 resolved 38840396 SNOMED- CT OTHER SEIZURES 10/03/2021 resolved 95327846 SNOM ED-CT PULMONARY NODULE 10/03/2021 resolved 041635047 SN OMED-CT CHRONIC HEPATITIS C 10/03/2021 resolved 551990098 SNOMED-CT ANXIETY DISORDER 10/03/2021 resolved 919343718 SN OMED-CT 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 10/03/2021 resolved [id number] SNOME D-CT NICOTINE DEPENDENCE 01/13/2021 resolved 40315758 SNOMED-CT VENOUS INSUFFICIENCY 10/03/2021 resolved 38023653 SNOMED-CT ALCOHOL INTOXICATION 11/26/2022 resolved 35406870 SNOMED-CT AMS 11/26/2022 resolved 067736312 SNOMED-CT HYPOKALEMIA 11/26/2022 resolved 35708697 SNOMED- CT OPIATE TOXICITY 06/04/2023 resolved 531519193 SNO MED-CT ACUTE ALCOHOL INTOXICATION 04/01/2023 resolved 3667647710 SNOMED-CT FEVER 06/04/2023 resolved 596577204 SNOMED-CT ALTERED MENTAL STATUS 06/04/2023 resolved 8671335 04 SNOMED-CT CHRONIC HEADACHE DISORDER 10/03/2021 resolved 920006695 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 656279 00 SNOMED-CT ALCOHOL DEPENDENCE WITH WITHDRAWAL 01/13/2021 resolved 46248729 SNOMED-CT HTN 10/03/2021 resolved 29545394 SNOMED-CT COPD 09/09/2021 resolved 72696809 SNOMED-CT HIGH CHOLESTEROL 09/09/2021 resolved 46402306 SN OMED-CT Allergies and Adverse Reactions Allergy Substance Reaction Severity Start Date Concern Status Code Code System PCN (penicillin) Anaphylaxis (SNOMED-CT: 39670972) Moderate Active 8564587 SNOMED-CT Plan of Treatment X-RAY 03/21/2022 MRI BRAIN W WO CONTRAST 12/06/2021 MRI BRAIN W WO CONTRAST 11/30/2021 LAB DRAW 15MIN 05/13/2021 Encounters Encounter Diagnosis Start Date Code Code Sys tem Pneumonia, unspecified organism 02/12/2022 SNOMED-CT Personal Care Team Section Performer Name Performer Role Active Date Inactive Da te
--- OUTSIDE RECORDS SUMMARY | 2024-02-29 09:09 | XMS_ITS ---
Author Organization Unknown Address [address] [place] [address] [phone] Phone Care Team Providers Care Resin Filterer Name Role Phone ADRIANNA Mendieta Attending Unavailable RAMIN Walsh Primary Unavailable Immunization Immunization Date Status Additional Notes Code Code System Tdap 10/03/2021 Completed 115 CVX Tdap 01/14/2022 Completed 115 CVX Social History Type Status Start Date End Date Code Code Syst em Smoking History Current every day smoker 030416170 SNOMED CT Smoking History Light tobacco smoker [id number] Smoking History Smoker, current status unknown 60180791 SNOMED CT Sex Male Medications Medication Start Date End Date Route Frequency Dose Code Code System Medication Instructions Home Meds Lisinopril 20MG Oral Tablet 04/01/2019 12/01/2022 ORAL DAILY 20 MILLIGRAMS 910380 RxNorm TAKE 20 MILLIGRAMS ORAL DAILY Pregabalin 200MG Oral Capsule 04/01/2019 07/27/2023 ORAL THREE TIMES A DAY 200 MILLIGRAMS 763078 RxNorm TAKE 200 MILLIGRAMS ORAL THREE TIMES A DAY ProAir HFA 0.09MG/1Actu ation Inhalation Suspension 04/01/2019 05/12/2022 INHALA TION NEEDED FOUR TIMES A DAY 2 unit(s) 589863 RxNorm 2 EACH INHALATION NEEDED FOUR TIMES A DAY DULoxetine HCl 60MG Oral Capsule, Delayed Release 10/22/2019 07/27/2023 ORAL DAILY 60 MILLIGRAMS 582629 RxNorm TAKE 60 MILLIGRAMS ORAL DAILY QUEtiapine Fumarate 300MG Oral Tablet 10/22/2019 05/12/2022 ORAL BEDTIME 300 MILLIGRAMS 098221 RxNorm TAKE 300 MILLIGRAMS ORAL BEDTIME Ibuprofen 200MG Oral Tablet 01/15/2021 11/25/2022 ORAL NEEDED THREE TIMES A DAY 600 MILLIGRAMS 780003 RxNorm TAKE 600 MILLIGRAMS ORAL NEEDED THREE TIMES A DAY LORazepam 0.5MG Oral Tablet 01/15/2021 05/12/2022 ORAL NEEDED TWICE DAILY 0.5 MILLIGRAMS 810116 RxNorm TAKE 0.5 MILLIGRAMS ORAL NEEDED TWICE DAILY Albuterol Sulfate 0.083% Inhalation Solution 10/05/2021 11/25/2022 INHALA TION NEEDED EVERY 4 HOURS 1 unit(s) 660997 RxNorm 1 EACH INHALATION NEEDED EVERY 4 HOURS Anoro Ellipta 62.5MCG-25MC G/1ACT Inhalation Powder 10/05/2021 07/27/2023 INHALA TION TWICE A DAY 1 PUFF 9530538 RxNorm 1 PUFF INHALATION TWICE A DAY Methadone HCl 40MG Oral Tablet for Suspension 10/05/2021 07/27/2023 ORAL DAILY 132 MILLIGRAMS 378060 RxNorm TAKE 132 MILLIGRAMS ORAL DAILY Zonisamide 100MG Oral Capsule 12/22/2021 05/12/2022 ORAL TWICE A DAY 100 MILLIGRAMS 394407 RxNorm TAKE 100 MILLIGRAMS ORAL TWICE A DAY predniSONE 10MG Oral Tablet 02/16/2022 11/25/2022 ORAL THREE TIMES A DAY WITH FOOD 10 MILLIGRAMS 620879 RxNorm TAKE 10 MILLIGRAMS ORAL THREE TIMES A DAY WITH FOOD SEROquel 300MG Oral Tablet 02/16/2022 12/22/2022 ORAL BEDTIME 300 MILLIGRAMS 460417 RxNorm TAKE 300 MILLIGRAMS ORAL BEDTIME Cephalexin 500MG Oral Capsule 02/16/2022 05/12/2022 ORAL THREE TIMES A DAY 1 CAPSULE 782492 RxNorm TAKE 1 CAPSULE ORAL THREE TIMES A DAY MiraLAX 17GM/1Dose Oral Powder for Solution 05/12/2022 11/25/2022 ORAL DAILY 17 GRAM 737604 RxNorm TAKE 17 GRAM ORAL DAILY Cefpodoxime Proxetil 200MG Oral Tablet 12/01/2022 12/22/2022 ORAL EVERY 12 HOURS 200 MILLIGRAMS 797950 RxNorm TAKE 200 MILLIGRAMS ORAL EVERY 12 HOURS Ibuprofen 600MG Oral Tablet 12/01/2022 07/27/2023 ORAL NEEDED THREE TIMES A DAY 600 MILLIGRAMS 020675 RxNorm TAKE 600 MILLIGRAMS ORAL NEEDED THREE TIMES A DAY FOR PAIN Combivent Respimat 100MCG-20MCG /1Act Inhalation [place] 12/01/2022 07/27/2023 INHALA TION NEEDED EVERY 8 HOURS 1 unit(s) 6333112 RxNorm 1 EACH INHALATION NEEDED EVERY 8 HOURS Depo-Testost erone Novaplus 200MG/1ML Intramuscula r Oil 12/01/2022 07/27/2023 INTRAM USCULA R 1 unit(s) 246458 RxNorm INJECT 1 EACH INTRAMUSCULA R Flovent 0.22MG/1Actu ation Inhalation Aerosol Powder 12/01/2022 07/27/2023 INHALA TION TWICE A DAY 1 unit(s) 372829 RxNorm 1 EACH INHALATION TWICE A DAY Ventolin HFA 0.09MG/1Actu ation Inhalation Suspension 12/01/2022 07/27/2023 INHALA TION 1 unit(s) 618782 RxNorm 1 EACH INHALATION Zonisamide 100MG Oral Capsule 12/01/2022 07/27/2023 ORAL DAILY 200 MILLIGRAMS 814292 RxNorm TAKE 200 MILLIGRAMS ORAL DAILY guaiFENesin 600MG Oral Tablet, Extended Release 12/01/2022 12/01/2022 ORAL NEEDED TWICE DAILY 1 TABLET 584356 RxNorm TAKE 1 TABLET ORAL NEEDED TWICE DAILY FOR COUGH predniSONE 10MG Oral Tablet 12/01/2022 12/01/2022 ORAL DAILY 2 TABLET 717613 RxNorm TAKE 2 TABLET ORAL DAILY X 5 DAYS THEN 1 TAB DAILY X 5 DAYS THEN STOP guaiFENesin 600MG Oral Tablet, Extended Release 12/01/2022 07/27/2023 ORAL NEEDED TWICE DAILY 1 TABLET 712258 RxNorm TAKE 1 TABLET ORAL NEEDED TWICE DAILY FOR COUGH predniSONE 10MG Oral Tablet 12/01/2022 12/22/2022 ORAL DAILY 2 TABLET 369186 RxNorm TAKE 2 TABLET ORAL DAILY X 5 DAYS THEN 1 TAB DAILY X 5 DAYS THEN STOP Acetaminophe n 500MG Oral Tablet 12/01/2022 07/27/2023 ORAL NEEDED THREE TIMES A DAY 2 TABLET 332822 RxNorm TAKE 2 TABLET ORAL NEEDED THREE TIMES A DAY FOR PAIN Lisinopril 40MG Oral Tablet 12/01/2022 07/27/2023 ORAL DAILY 1 TABLET 983358 RxNorm TAKE 1 TABLET ORAL DAILY predniSONE 20MG Oral Tablet 12/22/2022 04/02/2023 ORAL DAILY 1 TABLET 284961 RxNorm TAKE 3 TABLETS DAILY FOR 3 DAYS, THEN 2 TABLETS DAILY FOR 3 DAYS, THEN 1 TABLET DAILY FOR 3 DAYS Albuterol Sulfate 0.09MG/1Actu ation Inhalation Suspension 12/30/2022 07/27/2023 INHALA TION NEEDED EVERY 4 HOURS 2 PUFF 7612027 RxNorm 2 PUFF INHALATION NEEDED EVERY 4 HOURS FOR Shortness of breath Narcan 4MG/0.1ML Nasal [place] 12/30/2022 07/27/2023 NASAL NEEDED 1 SPRAY 3799145 RxNorm SPRAY 1 SPRAY NASAL NEEDED FOR OPIATE OVERDOSE QUEtiapine 300MG Oral Tablet 04/05/2023 07/27/2023 ORAL BEDTIME 300 MILLIGRAMS 914155 RxNorm TAKE 300 MILLIGRAMS ORAL BEDTIME Senna Plus 50MG-8.6MG Oral Tablet 04/05/2023 07/27/2023 ORAL TWICE A DAY 2 TABLET 049274 RxNorm TAKE 2 TABLET ORAL TWICE A DAY busPIRone 15MG Oral Tablet 04/05/2023 07/27/2023 ORAL THREE TIMES A DAY 15 MILLIGRAMS 400420 RxNorm TAKE 15 MILLIGRAMS ORAL THREE TIMES A DAY Cefpodoxime Proxetil 200MG Oral Tablet 04/05/2023 06/04/2023 ORAL TWICE A DAY 1 TABLET 436944 RxNorm TAKE 1 TABLET ORAL TWICE A DAY predniSONE 10MG Oral Tablet 04/05/2023 06/04/2023 ORAL TWICE A DAY 2 TABLET 776081 RxNorm TAKE 2 TABLET ORAL TWICE A DAY for 3 days then 2 tabs daily x 3 days then 1 tab daily x 3 days oxygen 04/05/2023 Unknown ORAL continu ous 3 LITERS RxNorm TAKE 3 LITERS ORAL continuous Milk Of Magnesia 400MG/5ML Oral Suspension 06/13/2023 07/27/2023 ORAL NEEDED DAILY 30 mL 006285 RxNorm TAKE 30 mL ORAL NEEDED DAILY predniSONE 20MG Oral Tablet 07/27/2023 10/16/2023 ORAL DAILY 2 TABLET 376348 RxNorm TAKE 2 TABLET ORAL DAILY predniSONE 20MG Oral Tablet 09/15/2023 10/16/2023 ORAL DAILY 2 TABLET 704890 RxNorm TAKE 2 TABLET ORAL DAILY Testosterone Cypionate 200MG/1ML Intramuscula r Oil 10/22/2023 Unknown 5985737 RxNorm As directed Ventolin HFA 0.09MG/1Actu ation Inhalation Suspension 10/22/2023 Unknown INHALA TION NEEDED EVERY 4 HOURS 2 PUFF 598121 RxNorm 2 PUFF INHALATION NEEDED EVERY 4 HOURS Acetaminophe n 500MG Oral Tablet 10/22/2023 Unknown ORAL THREE TIMES A DAY 2 TABLET 728672 RxNorm TAKE 2 TABLET ORAL THREE TIMES A DAY Ibuprofen 200MG Oral Tablet 10/22/2023 Unknown ORAL NEEDED THREE TIMES A DAY 3 TABLET 957357 RxNorm TAKE 3 TABLET ORAL NEEDED THREE TIMES A DAY predniSONE 10MG Oral Tablet 10/22/2023 12/01/2023 ORAL TWICE A DAY 2 TABLET 182627 RxNorm TAKE 2 TABLET ORAL TWICE A DAY x 3 days then 1 tab twice a day x 5 days then 1 tab daily Linzess 145MCG Oral Capsule 10/22/2023 10/27/2023 ORAL DAILY 1 unit(s) 2756123 RxNorm TAKE 1 E ACH ORAL DAILY Cefpodoxime Proxetil 200MG Oral Tablet 10/22/2023 11/28/2023 ORAL EVERY 12 HOURS 200 MILLIGRAMS 734241 RxNorm TAKE 200 MILLIGRAMS ORAL EVERY 12 HOURS Anoro Ellipta 62.5MCG-25MC G/1ACT Inhalation Powder 10/22/2023 Unknown INHALA TION DAILY 1 GRAM 1556028 RxNorm 1 GRAM INHALATION DAILY DULoxetine HCl 60MG Oral Capsule, Delayed Release 10/22/2023 Unknown ORAL DAILY 60 MILLIGRAMS 423570 RxNorm TAKE 60 MILLIGRAMS ORAL DAILY LORazepam [...] ORAL THREE TIMES A DAY 200 MILLIGRAMS 340991 RxNorm TAKE 200 MILLIGRAMS ORAL THREE TIMES A DAY QUEtiapine Fumarate 300MG Oral Tablet 10/22/2023 Unknown ORAL BEDTIME 300 MILLIGRAMS 752756 RxNorm TAKE 300 MILLIGRAMS ORAL BEDTIME predniSONE 10MG Oral Tablet 12/01/2023 12/07/2023 ORAL DAILY 4 TABLET 321029 RxNorm TAKE 4 TABLET ORAL DAILY x 3 days then 2 tabs daily x 3 days then 1 tab daily x 7 days Cefpodoxime Proxetil 200MG Oral Tablet 12/01/2023 12/07/2023 ORAL TWICE A DAY 1 TABLET 654867 RxNorm TAKE 1 TABLET ORAL TWICE A DAY levoFLOXacin 750MG Oral Tablet 12/25/2023 Unknown ORAL DAILY 1 TABLET 379162 RxNorm TAKE 1 TABLET ORAL DAILY predniSONE 50MG Oral Tablet 12/25/2023 Unknown ORAL DAILY 1 TABLET 126180 RxNorm TAKE 1 TABLET ORAL DAILY Assessment [...] Date Status Code Code System PNEUMONIA active 283491188 SNOMED-CT POLYSUBSTANCE ABUSE active 405050263 SNOMED-CT ACUTE AND CHRONIC RESPIRATORY FAILURE WITH HYPERCAPNIA active 3406640330319 SNOMED-CT ACUTE AND CHRONIC RESPIRATORY FAILURE WITH HYPOXIA active 51342901 SNOMED-CT COPD WITH EXACERBATION active 9894268 07 SNOMED-CT ALCOHOL USE WITH WITHDRAWAL active 214733046 SNOMED-CT CHRONIC RESPIRATORY FAILURE WITH HYPOXIA 10/03/2021 resolved 69174434 SNOMED- CT OTHER SEIZURES 10/03/2021 resolved 37822044 SNOM ED-CT PULMONARY NODULE 10/03/2021 resolved 519783972 SN OMED-CT CHRONIC HEPATITIS C 10/03/2021 resolved 077358783 SNOMED-CT ANXIETY DISORDER 10/03/2021 resolved 859001657 SN OMED-CT 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 10/03/2021 resolved 793796918646812 SNOME D-CT NICOTINE DEPENDENCE 01/13/2021 resolved 25202457 SNOMED-CT VENOUS INSUFFICIENCY 10/03/2021 resolved 31447232 SNOMED-CT ALCOHOL INTOXICATION 11/26/2022 resolved 53690838 SNOMED-CT AMS 11/26/2022 resolved 315173172 SNOMED-CT HYPOKALEMIA 11/26/2022 resolved 66061660 SNOMED- CT OPIATE TOXICITY 06/04/2023 resolved 472669427 SNO MED-CT ACUTE ALCOHOL INTOXICATION 04/01/2023 resolved 8360132589 SNOMED-CT FEVER 06/04/2023 resolved 102666668 SNOMED-CT ALTERED MENTAL STATUS 06/04/2023 resolved 2226611 04 SNOMED-CT CHRONIC HEADACHE DISORDER 10/03/2021 resolved 390924512 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 365191 00 SNOMED-CT ALCOHOL DEPENDENCE WITH WITHDRAWAL 01/13/2021 resolved 54003548 SNOMED-CT HTN 10/03/2021 resolved 37527143 SNOMED-CT COPD 09/09/2021 resolved 70560462 SNOMED-CT HIGH CHOLESTEROL 09/09/2021 resolved 40269114 SN OMED-CT Allergies and Adverse Reactions Allergy Substance Reaction Severity Start Date Concern Status Code Code System PCN (penicillin) Anaphylaxis (SNOMED-CT: 15763022) Moderate Active 5696302 SNOMED-CT Plan of Treatment X-RAY 03/21/2022 MRI BRAIN W WO CONTRAST 12/06/2021 MRI BRAIN W WO CONTRAST 11/30/2021 LAB DRAW 15MIN 05/13/2021 Personal Care Team Section Performer Name Performer Role Active Date Inactive Da elias
--- OUTSIDE RECORDS SUMMARY | 2024-02-29 09:10 | XMS_ITS ---
Author Organization Unknown Address [address] [place] [phone] Phone Care Team Providers Care Music Coordinator Name Role Phone RODASAPARNA JARA Gayatri Attending Unavailable Immunization Immunization Date Status Additional Notes Code Code System Tdap 10/03/2021 Completed 115 CVX Tdap 01/14/2022 Completed 115 CVX Social History Type Status Start Date End Date Code Code Syst em Smoking History Current every day smoker [id number] SNOMED CT Smoking History Light tobacco smoker [id number] Smoking History Smoker, current status unknown [id number] SNOMED CT Sex Male Medications Medication Start Date End Date Route Frequency Dose Code Code System Medication Instructions Home Meds Lisinopril 20MG Oral Tablet 04/01/2019 12/01/2022 ORAL DAILY 20 MILLIGRAMS 541842 RxNorm TAKE 20 MILLIGRAMS ORAL DAILY Pregabalin 200MG Oral Capsule 04/01/2019 07/27/2023 ORAL THREE TIMES A DAY 200 MILLIGRAMS 596587 RxNorm TAKE 200 MILLIGRAMS ORAL THREE TIMES A DAY DULoxetine HCl 60MG Oral Capsule, Delayed Release 10/22/2019 07/27/2023 ORAL DAILY 60 MILLIGRAMS 197591 RxNorm TAKE 60 MILLIGRAMS ORAL DAILY Ibuprofen 200MG Oral Tablet 01/15/2021 11/25/2022 ORAL NEEDED THREE TIMES A DAY 600 MILLIGRAMS 501377 RxNorm TAKE 600 MILLIGRAMS ORAL NEEDED THREE TIMES A DAY Albuterol Sulfate 0.083% Inhalation Solution 10/05/2021 11/25/2022 INHALA TION NEEDED EVERY 4 HOURS 1 unit(s) 017442 RxNorm 1 EACH INHALATION NEEDED EVERY 4 HOURS Anoro Ellipta 62.5MCG-25MC G/1ACT Inhalation Powder 10/05/2021 07/27/2023 INHALA TION TWICE A DAY 1 PUFF 0153407 RxNorm 1 PUFF INHALATION TWICE A DAY Methadone HCl 40MG Oral Tablet for Suspension 10/05/2021 07/27/2023 ORAL DAILY 132 MILLIGRAMS 830976 RxNorm TAKE 132 MILLIGRAMS ORAL DAILY predniSONE 10MG Oral Tablet 02/16/2022 11/25/2022 ORAL THREE TIMES A DAY WITH FOOD 10 MILLIGRAMS 878013 RxNorm TAKE 10 MILLIGRAMS ORAL THREE TIMES A DAY WITH FOOD SEROquel 300MG Oral Tablet 02/16/2022 12/22/2022 ORAL BEDTIME 300 MILLIGRAMS 282166 RxNorm TAKE 300 MILLIGRAMS ORAL BEDTIME MiraLAX 17GM/1Dose Oral Powder for Solution 05/12/2022 11/25/2022 ORAL DAILY 17 GRAM 100802 RxNorm TAKE 17 GRAM ORAL DAILY Cefpodoxime Proxetil 200MG Oral Tablet 12/01/2022 12/22/2022 ORAL EVERY 12 HOURS 200 MILLIGRAMS 806056 RxNorm TAKE 200 MILLIGRAMS ORAL EVERY 12 HOURS Ibuprofen 600MG Oral Tablet 12/01/2022 07/27/2023 ORAL NEEDED THREE TIMES A DAY 600 MILLIGRAMS 014734 RxNorm TAKE 600 MILLIGRAMS ORAL NEEDED THREE TIMES A DAY FOR PAIN Combivent Respimat 100MCG-20MCG /1Act Inhalation Simla 12/01/2022 07/27/2023 INHALA TION NEEDED EVERY 8 HOURS 1 unit(s) 4881048 RxNorm 1 EACH INHALATION NEEDED EVERY 8 HOURS Depo-Testost erone Novaplus 200MG/1ML Intramuscula r Oil 12/01/2022 07/27/2023 INTRAM USCULA R 1 unit(s) 524625 RxNorm INJECT 1 EACH INTRAMUSCULA R Flovent 0.22MG/1Actu ation Inhalation Aerosol Powder 12/01/2022 07/27/2023 INHALA TION TWICE A DAY 1 unit(s) 068702 RxNorm 1 EACH INHALATION TWICE A DAY Ventolin HFA 0.09MG/1Actu ation Inhalation Suspension 12/01/2022 07/27/2023 INHALA TION 1 unit(s) 463774 RxNorm 1 EACH INHALATION Zonisamide 100MG Oral Capsule 12/01/2022 07/27/2023 ORAL DAILY 200 MILLIGRAMS 630654 RxNorm TAKE 200 MILLIGRAMS ORAL DAILY guaiFENesin 600MG Oral Tablet, Extended Release 12/01/2022 12/01/2022 ORAL NEEDED TWICE DAILY 1 TABLET 601667 RxNorm TAKE 1 TABLET ORAL NEEDED TWICE DAILY FOR COUGH predniSONE 10MG Oral Tablet 12/01/2022 12/01/2022 ORAL DAILY 2 TABLET 871406 RxNorm TAKE 2 TABLET ORAL DAILY X 5 DAYS THEN 1 TAB DAILY X 5 DAYS THEN STOP guaiFENesin 600MG Oral Tablet, Extended Release 12/01/2022 07/27/2023 ORAL NEEDED TWICE DAILY 1 TABLET 657530 RxNorm TAKE 1 TABLET ORAL NEEDED TWICE DAILY FOR COUGH predniSONE 10MG Oral Tablet 12/01/2022 12/22/2022 ORAL DAILY 2 TABLET 265911 RxNorm TAKE 2 TABLET ORAL DAILY X 5 DAYS THEN 1 TAB DAILY X 5 DAYS THEN STOP Acetaminophe n 500MG Oral Tablet 12/01/2022 07/27/2023 ORAL NEEDED THREE TIMES A DAY 2 TABLET 233872 RxNorm TAKE 2 TABLET ORAL NEEDED THREE TIMES A DAY FOR PAIN Lisinopril 40MG Oral Tablet 12/01/2022 07/27/2023 ORAL DAILY 1 TABLET 656041 RxNorm TAKE 1 TABLET ORAL DAILY predniSONE 20MG Oral Tablet 12/22/2022 04/02/2023 ORAL DAILY 1 TABLET 973013 RxNorm TAKE 3 TABLETS DAILY FOR 3 DAYS, THEN 2 TABLETS DAILY FOR 3 DAYS, THEN 1 TABLET DAILY FOR 3 DAYS Albuterol Sulfate 0.09MG/1Actu ation Inhalation Suspension 12/30/2022 07/27/2023 INHALA TION NEEDED EVERY 4 HOURS 2 PUFF 4330597 RxNorm 2 PUFF INHALATION NEEDED EVERY 4 HOURS FOR Shortness of breath Narcan 4MG/0.1ML Nasal Simla 12/30/2022 07/27/2023 NASAL NEEDED 1 SPRAY 2054647 RxNorm SPRAY 1 SPRAY NASAL NEEDED FOR OPIATE OVERDOSE QUEtiapine 300MG Oral Tablet 04/05/2023 07/27/2023 ORAL BEDTIME 300 MILLIGRAMS 000005 RxNorm TAKE 300 MILLIGRAMS ORAL BEDTIME Senna Plus 50MG-8.6MG Oral Tablet 04/05/2023 07/27/2023 ORAL TWICE A DAY 2 TABLET 308665 RxNorm TAKE 2 TABLET ORAL TWICE A DAY busPIRone 15MG Oral Tablet 04/05/2023 07/27/2023 ORAL THREE TIMES A DAY 15 MILLIGRAMS 854508 RxNorm TAKE 15 MILLIGRAMS ORAL THREE TIMES A DAY Cefpodoxime Proxetil 200MG Oral Tablet 04/05/2023 06/04/2023 ORAL TWICE A DAY 1 TABLET 649923 RxNorm TAKE 1 TABLET ORAL TWICE A DAY predniSONE 10MG Oral Tablet 04/05/2023 06/04/2023 ORAL TWICE A DAY 2 TABLET 016096 RxNorm TAKE 2 TABLET ORAL TWICE A DAY for 3 days then 2 tabs daily x 3 days then 1 tab daily x 3 days oxygen 04/05/2023 Unknown ORAL continu ous 3 LITERS RxNorm TAKE 3 LITERS ORAL continuous Milk Of Magnesia 400MG/5ML Oral Suspension 06/13/2023 07/27/2023 ORAL NEEDED DAILY 30 mL 273559 RxNorm TAKE 30 mL ORAL NEEDED DAILY predniSONE 20MG Oral Tablet 07/27/2023 10/16/2023 ORAL DAILY 2 TABLET 571264 RxNorm TAKE 2 TABLET ORAL DAILY predniSONE 20MG Oral Tablet 09/15/2023 10/16/2023 ORAL DAILY 2 TABLET 405462 RxNorm TAKE 2 TABLET ORAL DAILY Cefpodoxime Proxetil 200MG Oral Tablet 10/22/2023 11/28/2023 ORAL EVERY 12 HOURS 200 MILLIGRAMS 300780 RxNorm TAKE 200 MILLIGRAMS ORAL EVERY 12 HOURS Anoro Ellipta 62.5MCG-25MC G/1ACT Inhalation Powder 10/22/2023 Unknown INHALA TION DAILY 1 GRAM 5520994 RxNorm 1 GRAM INHALATION DAILY DULoxetine HCl 60MG Oral Capsule, Delayed Release 10/22/2023 Unknown ORAL DAILY 60 MILLIGRAMS 505742 RxNorm TAKE 60 MILLIGRAMS ORAL DAILY LORazepam 1MG Oral Tablet 10/22/2023 Unknown ORAL NEEDED TWICE DAILY 1 MILLIGRAMS 009134 RxNorm TAKE 1 MILLIGRAMS ORAL NEEDED TWICE DAILY Linzess 145MCG Oral Capsule 10/22/2023 10/27/2023 ORAL DAILY 1 unit(s) 4135416 RxNorm TAKE 1 E ACH ORAL DAILY Lisinopril 40MG Oral Tablet 10/22/2023 Unknown ORAL DAILY 40 MILLIGRAMS 19771202 RxNorm TAKE 40 MILLIGRAMS ORAL DAILY Methadone 10MG Oral Tablet 10/22/2023 Unknown ORAL DAILY 132 MILLIGRAMS RxNorm TAKE 132 MILLIGRAMS ORAL DAILY Pregabalin 200MG Oral Capsule 10/22/2023 Unknown ORAL THREE TIMES A DAY 200 MILLIGRAMS 194502 RxNorm TAKE 200 MILLIGRAMS ORAL THREE TIMES A DAY QUEtiapine Fumarate 300MG Oral Tablet 10/22/2023 Unknown ORAL BEDTIME 300 MILLIGRAMS 443289 RxNorm TAKE 300 MILLIGRAMS ORAL BEDTIME Testosterone Cypionate 200MG/1ML Intramuscula r Oil 10/22/2023 Unknown 0139090 RxNorm As directed Ventolin HFA 0.09MG/1Actu ation Inhalation Suspension 10/22/2023 Unknown INHALA TION NEEDED EVERY 4 HOURS 2 PUFF 486426 RxNorm 2 PUFF INHALATION NEEDED EVERY 4 HOURS Acetaminophe n 500MG Oral Tablet 10/22/2023 Unknown ORAL THREE TIMES A DAY 2 TABLET 890497 RxNorm TAKE 2 TABLET ORAL THREE TIMES A DAY Ibuprofen 200MG Oral Tablet 10/22/2023 Unknown ORAL NEEDED THREE TIMES A DAY 3 TABLET 973396 RxNorm TAKE 3 TABLET ORAL NEEDED THREE TIMES A DAY predniSONE 10MG Oral Tablet 10/22/2023 12/01/2023 ORAL TWICE A DAY 2 TABLET 517995 RxNorm TAKE 2 TABLET ORAL TWICE A DAY x 3 days then 1 tab twice a day x 5 days then 1 tab daily predniSONE 10MG Oral Tablet 12/01/2023 12/07/2023 ORAL DAILY 4 TABLET 178779 RxNorm TAKE 4 TABLET ORAL DAILY x 3 days then 2 tabs daily x 3 days then 1 tab daily x 7 days Cefpodoxime Proxetil 200MG Oral Tablet 12/01/2023 12/07/2023 ORAL TWICE A DAY 1 TABLET 752347 RxNorm TAKE 1 TABLET ORAL TWICE A DAY levoFLOXacin 750MG Oral Tablet 12/25/2023 Unknown ORAL DAILY 1 TABLET 033325 RxNorm TAKE 1 TABLET ORAL DAILY predniSONE 50MG Oral Tablet 12/25/2023 Unknown ORAL DAILY 1 TABLET 501495 RxNorm TAKE 1 TABLET ORAL DAILY Assessment [...] Date Status Code Code System PNEUMONIA active [id number] SNOMED-CT POLYSUBSTANCE ABUSE active 209209297 SNOMED-CT ACUTE AND CHRONIC RESPIRATORY FAILURE WITH HYPERCAPNIA active [id number] SNOMED-CT ACUTE AND CHRONIC RESPIRATORY FAILURE WITH HYPOXIA active 11117787 SNOMED-CT COPD WITH EXACERBATION active 2938341 07 SNOMED-CT ALCOHOL USE WITH WITHDRAWAL active 390139131 SNOMED-CT CHRONIC RESPIRATORY FAILURE WITH HYPOXIA 10/03/2021 resolved 53818248 SNOMED- CT OTHER SEIZURES 10/03/2021 resolved 05283543 SNOM ED-CT PULMONARY NODULE 10/03/2021 resolved 410601164 SN OMED-CT CHRONIC HEPATITIS C 10/03/2021 resolved 950944595 SNOMED-CT ANXIETY DISORDER 10/03/2021 resolved 052065621 SN OMED-CT 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 10/03/2021 resolved [id number] SNOME D-CT NICOTINE DEPENDENCE 01/13/2021 resolved 90019894 SNOMED-CT VENOUS INSUFFICIENCY 10/03/2021 resolved 16889253 SNOMED-CT ALCOHOL INTOXICATION 11/26/2022 resolved 67317140 SNOMED-CT AMS 11/26/2022 resolved 703779068 SNOMED-CT HYPOKALEMIA 11/26/2022 resolved 66264595 SNOMED- CT OPIATE TOXICITY 06/04/2023 resolved 942659520 SNO MED-CT ACUTE ALCOHOL INTOXICATION 04/01/2023 resolved 8685228886 SNOMED-CT FEVER 06/04/2023 resolved 364675430 SNOMED-CT ALTERED MENTAL STATUS 06/04/2023 resolved 8092686 04 SNOMED-CT CHRONIC HEADACHE DISORDER 10/03/2021 resolved 145882956 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 258692 00 SNOMED-CT ALCOHOL DEPENDENCE WITH WITHDRAWAL 01/13/2021 resolved 76531719 SNOMED-CT HTN 10/03/2021 resolved 12606603 SNOMED-CT COPD 09/09/2021 resolved 07409245 SNOMED-CT HIGH CHOLESTEROL 09/09/2021 resolved 06412888 SN OMED-CT Allergies and Adverse Reactions Allergy Substance Reaction Severity Start Date Concern Status Code Code System PCN (penicillin) Anaphylaxis (SNOMED-CT: [id number]) Moderate Active 8733586 SNOMED-CT Plan of Treatment X-RAY 03/21/2022 MRI BRAIN W WO CONTRAST 12/06/2021 MRI BRAIN W WO CONTRAST 11/30/2021 LAB DRAW 15MIN 05/13/2021 Encounters Encounter Diagnosis Start Date Code Code Sys tem Pneumonia, unspecified organism 11/25/2022 SNOMED-CT Personal Care Team Section Performer Name Performer Role Active Date Inactive Da te
--- OUTSIDE RECORDS SUMMARY | 2024-02-29 09:10 | XMS_ITS ---
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 Role Phone ROSELIA JIMENEZ Registered Nurse Unavailable Unavailable Xwatchlist Unavailable ADRIANNA Mendieta Attending Unavailable [facility] Unavailable RAMIN Walsh Primary Unavailable UNLISTED PROVIDER - REQUESTED Xhandoff Un available Immunization Immunization Date Status Additional Notes Code Code System Tdap 10/03/2021 Completed 115 CVX Tdap 01/14/2022 Completed 115 CVX Results NOVA GLUCOSE FINGER HEEL CAP ILLARY - Collect Date/Time: 11/27/2022 20:50 [facility] ID: [id number] [address] [place] [address], [id number] LOINC: 53773-2 Test Value Unit Reference Range Code Code System Flag GLUCOSE CAP 131 mg/dL L=70 H=116 07085-2 LOINC H BASIC METABOLIC PANEL (BMP) - Collect Date/Time: 11/26/2022 06:30 [facility] ID: [id number] [address] [place] [address], [address] LOINC: 48903-4 Test Value Unit Reference Range Code Code System Flag GLUCOSE 91 mg/dL L=70 H=116 2345-7 LOINC BUN 13 mg/dL L=6 H=25 3094-0 LOINC CREATININE 0.74 mg/dL L=0.67 H=1.17 2160-0 LOINC SODIUM SERUM 140 mmol/L L=136 H=145 2951-2 LOINC POTASSIUM SERUM 3.9 mmol/L L=3.4 H=5.2 2823-3 LOINC CHLORIDE SERUM 103 mmol/L L=96 H=110 2075-0 LOINC CARBON DIOXIDE (CO2) 28 mmol/L L=22 H=34 8-9 LOINC ANION GAP 8.7 mmol/L 36482-7 LOINC CALCIUM SERUM 9.2 mg/dL L=8.2 H=10.2 58026-4 LOINC AGE 47 years eGFR (non-Afr.Amer.) 112 mL/min 87042-4 LOINC eGFR (Afr-Barbadian) > 120 mL/min 73585-5 LOINC CBC W/ DIFFERENTIAL* - Colle ct Date/Time: 11/26/2022 06:30 [facility] ID: [id number] [address] [place], [place], [address] LOINC: 99203-6 Test Value Unit Reference Range Code Code System Flag WBC 12.75 th/cmm L=5.00 H=10.00 6690-2 LOINC H NEUT % 73.5 % L=40.0 H=80.0 LYMPH % 13.6 % L=10.0 H=50.0 MONO % 11.8 % L=2.0 H=12.0 96996-0 LOINC EOS % 0.5 % L=0.0 H=8.0 BASO % 0.4 % L=0.0 H=3.0 IG % 0.2 % L=0.0 H=1.1 2514-8 LOINC NRBC % 0.0 % L=0.0 H=0.0 32043-4 LOINC NEUT abs count 9.4 th/cmm L=1.6 H=8.4 751-8 LOINC H LYMPH abs count 1.7 th/cmm L=1.5 H=4.0 731-0 LOINC MONO abs count 1.5 th/cmm L=0.2 H=1.0 742-7 LOINC H EOS abs count 0.1 th/cmm L=0.0 H=0.5 711-2 LOINC BASO abs count 0.1 th/cmm L=0.0 H=0.2 704-7 LOINC IG abs count 0.0 th/cmm L=0.0 H=0.1 08030-8 LOINC NRBC abs count 0.0 mil/cmm L=0.0 H=0.0 10185-0 LOINC RBC 5.92 mil/cmm L=4.30 H=6.20 789-8 LOINC HEMOGLOBIN 17.5 gm/dL L=13.0 H=17.0 718-7 LOINC H HEMATOCRIT 54 % L=45 H=52 4544-3 LOINC H MCV 91 fL L=82 H=92 787-2 LOINC MCH 29.6 pg L=27.0 H=31.0 785-6 LOINC MCHC 32.4 % L=32.0 H=36.0 786-4 LOINC RDW-SD 53.3 fL L=39.0 H=49.0 788-0 LOINC H PLATELET COUNT 217 th/cmm L=150 H=450 777-3 LOINC ORDER VENOUS BLOOD GAS* - Co llect Date/Time: 11/25/2022 15:15 [facility] ID: [id number] [address] [place] [address], [id number] LOINC: Test Value Unit Reference Range Code Code System Flag Specimen type: VENOUS pH (venous) 7.32 L=7.38 H=7.46 2746-6 LOINC L PCO2 (venous) 55.5 mm Hg L=41.0 H=51.0 2703-7 LOINC H PO2 (venous) 35 mm Hg L=30 H=50 2705-2 LOINC HCO3 29 mmol/L L=22 H=26 1960-4 LOINC H TCO2 (venous) 30 mmol/L L=22 H=28 3533-7 LOINC H BASE EXCESS (venous) 3 mmol/L L=-2 H=3 3097-3 LOINC Assist vent. Resp. Rate /min. Temp. CASH COVID FLU RSV GENEXPE RT - Collect Date/Time: 11/25/2022 13:40 [facility] ID: [id number] [address] [place] [address], [phone] LOINC: 96821-9 Test Value Unit Reference Range Code Code System Flag COVID NEGATIVE Normal: Negative 67791-6 LOINC INFLUENZA A DNA NEGATIVE Normal: Negative 43336-1 LOINC INFLUENZA B DNA NEGATIVE Normal: Negative 74522-4 LOINC RSV DNA NEGATIVE Normal: Negative 63488-0 LOINC ORDER VENOUS BLOOD GAS* - Co llect Date/Time: 11/25/2022 13:01 [facility] ID: [id number] [address] [place] [address], [id number] LOINC: Test Value Unit Reference Range Code Code System Flag Specimen type: VENOUS pH (venous) 7.31 L=7.38 H=7.46 2746-6 LOINC L PCO2 (venous) 70.3 mm Hg L=41.0 H=51.0 2703-7 LOINC H PO2 (venous) 44 mm Hg L=30 H=50 2705-2 LOINC HCO3 36 mmol/L L=22 H=26 1960-4 LOINC H TCO2 (venous) 38 mmol/L L=22 H=28 3533-7 LOINC H BASE EXCESS (venous) 9 mmol/L L=-2 H=3 3097-3 LOINC H Assist vent. Resp. Rate /min. Temp. COMPREHENSIVE METABOLIC PANE L (CMP) - Collect Date/Time: 11/25/2022 13:01 [facility] ID: [id number] [address] [place] [address], [address] LOINC: 05957-7 Test Value Unit Reference Range Code Code System Flag GLUCOSE 90 mg/dL L=70 H=116 2345-7 LOINC BUN 10 mg/dL L=6 H=25 3094-0 LOINC CREATININE 0.85 mg/dL L=0.67 H=1.17 2160-0 LOINC SODIUM SERUM 141 mmol/L L=136 H=145 2951-2 LOINC POTASSIUM SERUM 3.8 mmol/L L=3.4 H=5.2 2823-3 LOINC CHLORIDE SERUM 101 mmol/L L=96 H=110 2075-0 LOINC CARBON DIOXIDE (CO2) 32 mmol/L L=22 H=34 2028-9 LOINC ANION GAP 8.0 mmol/L 95762-8 LOINC CALCIUM SERUM 9.0 mg/dL L=8.2 H=10.2 63316-5 LOINC BILIRUBIN TOTAL 0.8 mg/dL L=0.0 H=1.3 1975-2 LOINC ALK. PHOS. 91 U/L L=46 H=116 6768-6 LOINC SGOT (AST) 17 U/L L=15 H=37 1920-8 LOINC SGPT (ALT) 19 U/L L=12 H=78 1742-6 LOINC TOTAL PROTEIN 8.0 gm/dL L=6.0 H=8.0 2885-2 LOINC ALBUMIN 3.7 gm/dL L=3.4 H=5.0 1751-7 LOINC AGE 47 years eGFR (non-Afr.Amer.) 96 mL/min 86368-2 LOINC eGFR (Afr-Barbadian) 116 mL/min 59319-8 LOINC CBC W/ DIFFERENTIAL* - Colle ct Date/Time: 11/25/2022 13:01 [facility] ID: [id number] [address] [place], [place], [address] LOINC: 39097-4 Test Value Unit Reference Range Code Code System Flag WBC 8.54 th/cmm L=5.00 H=10.00 6690-2 LOINC NEUT % 60.4 % L=40.0 H=80.0 LYMPH % 23.5 % L=10.0 H=50.0 MONO % 9.7 % L=2.0 H=12.0 41710-5 LOINC EOS % 5.2 % L=0.0 H=8.0 BASO % 1.1 % L=0.0 H=3.0 IG % 0.1 % L=0.0 H=1.1 2514-8 LOINC NRBC % 0.0 % L=0.0 H=0.0 91837-9 LOINC NEUT abs count 5.2 th/cmm L=1.6 H=8.4 751-8 LOINC LYMPH abs count 2.0 th/cmm L=1.5 H=4.0 731-0 LOINC MONO abs count 0.8 th/cmm L=0.2 H=1.0 742-7 LOINC EOS abs count 0.4 th/cmm L=0.0 H=0.5 711-2 LOINC BASO abs count 0.1 th/cmm L=0.0 H=0.2 704-7 LOINC IG abs count 0.0 th/cmm L=0.0 H=0.1 73994-8 LOINC NRBC abs count 0.0 mil/cmm L=0.0 H=0.0 53236-8 LOINC RBC 5.86 mil/cmm L=4.30 H=6.20 789-8 LOINC HEMOGLOBIN 17.8 gm/dL L=13.0 H=17.0 718-7 LOINC H HEMATOCRIT 55 % L=45 H=52 4544-3 LOINC H MCV 93 fL L=82 H=92 787-2 LOINC H MCH 30.4 pg L=27.0 H=31.0 785-6 LOINC MCHC 32.6 % L=32.0 H=36.0 786-4 LOINC RDW-SD 54.4 fL L=39.0 H=49.0 788-0 LOINC H PLATELET COUNT 214 th/cmm L=150 H=450 777-[address] CHEST WO CONTRAST - Compl eted: 11/29/2022 11:13 LOINC: [facility] [place], [place] [address] PACS INFORMATION ANALYST REPORT Patient Name: ANTONIO DAUGHERTY MRN: Sex: : Age: [id number] M 1975 47 Account: Accession: Admit: StayType: [id number] 11/25/2022 I/P Ordered: Order ID: Submitted: Ordering Provider: 11/29/2022 09:19 [id number] MADY GARCIA Completed: Technologist: Resulted: 11/29/2022 11:13 LXH 11/29/2022 11:28 Study Description: CT CHEST WO CONTRAST Study Reason: Pneumonia TECHNIQUE: Multi planar reconstructions were performed. CONTRAST MATERIAL None COMPARISON: Uppermost images of abdominal CT scan 05/12/[address] scan 09/09/2021 was reviewed. FINDINGS: LUNGS: There are COPD emphysematous changes again noted and there are numerous bilateral calcified granulomas again noted. 5 mm noncalcified nodule in the lateral segment of the right middle lobe is again noted and remains unchanged from multiple prior studies. Multiple thin-walled bullae are again noted. These do not contain fluid. There are unchanged infiltrates in the right lower lobe basal segment. Increasing peripheral markings are noted in the lateral aspect of the right middle lobe. Mild infiltrate in the posterior basal segment left lower lobe noted. Also unchanged infiltrate in the lingular segment of the left lung. There are no pleural effusions on either side. No pneumothorax. MEDIASTINUM: Calcified left hilar and subcarinal lymph nodes are again noted calcified pulmonary granulomas. There is no new pathologic adenopathy evident. CARDIAC: Heart size is normal. There is no pericardial effusion.Caliber of the thoracic aorta is within normal limits. VISUALIZED UPPER ABDOMEN: There is an IVC filter in place. There is a cyst in the lateral aspect of the right kidney. No adrenal masses evident. No splenomegaly. OSSEOUS: No significant osseous lesions. Mild T6 compression fracture noted, unchanged from previous. No new fractures evident. Superior endplate Schmorl's node at multiple levels noted. IMPRESSION: 1. Severe COPD-emphysematous changes, similar to his 09/09/2021. Persistent infiltrates in the lingular segment of the left lung and right lower lobe. Increasing benign-appearing markings in the lateral aspect of the right middle lobe. 2. Multiple calcified granulomas and benign-appearing noncalcified nodules in both lungs. Calcified left hilar and subcarinal lymph nodes are commensurate with the presence of the multiple calcified lung granulomas. 3. No prominent new infiltrates nor pleural effusions. No new nodules evident. No new adenopathy. Report Digitally Signed by Juanito Romero on 11/29/2022 11:28 AM EDT XR CHEST PORTABLE OR 1V - Co mpleted: 11/25/2022 13:30 LOINC: [facility] [place], [place] [address] PACS INFORMATION ANALYST REPORT Patient Name: ANTONIO DAUGHERTY MRN: Sex: : Age: [id number] M 1975 47 Account: Accession: Admit: StayType: [id number] 11/25/2022 E/R Ordered: Order ID: Submitted: Ordering Provider: 11/25/2022 13:16 [id number] MADY CANO Completed: Technologist: Resulted: 11/25/2022 13:30 AX 11/25/2022 13:39 Study Description: XR CHEST PORTABLE OR 1V Study Reason: SOB TECHNIQUE: 2D digital imaging was performed. COMPARISON: Prior chest x-rays 02/12/2022 and 05/12/2022. FINDINGS: Single AP view Heart size is normal. The mediastinum is not widened. There is diffuse bilateral interstitial disease with mild confluence in the right lung base. No obvious pleural effusions. Small granulomas again noted laterally in the left lung. No pneumothorax. No fractures. IMPRESSION: Bilateral interstitial infiltrates. Report Digitally Signed by Juanito Romero on 11/25/2022 01:39 PM EDT Social History Type Status Start Date End Date Code Code Syst em Smoking History Current every day smoker 108157283 SNOMED CT Smoking History Light tobacco smoker [id number] Smoking History Smoker, current status unknown 24562560 SNOMED CT Sex Male Vital Signs Vital Sign Value Unit [place] Value [place] Unit Date/Time Recent/Initial? Code Code System Body Mass Index 22.81 kg/m2 11/25/2022 13:06 Initial 16250 -5 LOINC Systolic Blood Pressure 178 mm[Hg] 12/01/2022 13:34 Most Recent 8480- 6 LOINC Diastolic Blood Pressure 136 mm[Hg] 12/01/2022 13:34 Most Recent 8462- 4 LOINC Systolic Blood Pressure 168 mm[Hg] 11/25/2022 13:00 Initial 8480- 6 LOINC Diastolic Blood Pressure 90 mm[Hg] 11/25/2022 13:00 Initial 8462- 4 LOINC Body Surface Area 1.81 m2 11/25/2022 13:06 Initial 3140- 1 LOINC Height 172.720 0 cm 68.00 in 11/25/2022 13:06 Initial 8302- 2 LOINC O2 Saturation 92 % 2022 13:33 Most Recent 12801 -5 LOINC O2 Saturation 88 % 2022 13:00 Initial 05230 -5 LOINC Inhaled Oxygen Flow Rate 2.00 L/min 12/01/2022 07:48 Most Recent 3151- 8 LOINC Inhaled Oxygen Flow Rate 4.00 L/min 11/25/2022 13:30 Initial 3151- 8 LOINC Pulse 101.0 /min 12/01/2022 13:33 Most Recent 8867- 4 LOINC Pulse 90.0 /min 11/25/2022 13:00 Initial 8867- 4 LOINC Respiration 20 /min 12/02/19 13:33 Most Recent 9279- 1 LOINC Respiration 16 /min 11/26/19 13:00 Initial 9279- 1 LOINC Temperature 36.3 Regina 97.3 F 12/02/19 13:33 Most Recent 8310- 5 LOINC Temperature 36.7 Regina 98.1 F 11/26/19 13:00 Initial 8310- 5 LOINC Weight 73.12 kg 161.20 lbs 11/25/2022 17:05 Most Recent 96913 -7 LOINC Weight 68.04 kg 150.00 lbs 11/25/2022 13:06 Initial 34549 -7 [facility] Medications Medication Start Date End Date Route Frequency Dose Code Code System Medication Instructions Home Meds Lisinopril 20MG Oral Tablet 04/01/2019 12/01/2022 ORAL DAILY 20 MILLIGRAMS 286322 RxNorm TAKE 20 MILLIGRAMS ORAL DAILY Pregabalin 200MG Oral Capsule 04/01/2019 07/27/2023 ORAL THREE TIMES A DAY 200 MILLIGRAMS 392458 RxNorm TAKE 200 MILLIGRAMS ORAL THREE TIMES A DAY DULoxetine HCl 60MG Oral Capsule, Delayed Release 10/22/2019 07/27/2023 ORAL DAILY 60 MILLIGRAMS 767235 RxNorm TAKE 60 MILLIGRAMS ORAL DAILY Anoro Ellipta 62.5MCG-25MC G/1ACT Inhalation Powder 10/05/2021 07/27/2023 INHALA TION TWICE A DAY 1 PUFF 9144325 RxNorm 1 PUFF INHALATION TWICE A DAY Methadone HCl 40MG Oral Tablet for Suspension 10/05/2021 07/27/2023 ORAL DAILY 132 MILLIGRAMS 400397 RxNorm TAKE 132 MILLIGRAMS ORAL DAILY SEROquel 300MG Oral Tablet 02/16/2022 12/22/2022 ORAL BEDTIME 300 MILLIGRAMS 277296 RxNorm TAKE 300 MILLIGRAMS ORAL BEDTIME Zonisamide 100MG Oral Capsule 12/01/2022 07/27/2023 ORAL DAILY 200 MILLIGRAMS 172012 RxNorm TAKE 200 MILLIGRAMS ORAL DAILY guaiFENesin 600MG Oral Tablet, Extended Release 12/01/2022 12/01/2022 ORAL NEEDED TWICE DAILY 1 TABLET 651011 RxNorm TAKE 1 TABLET ORAL NEEDED TWICE DAILY FOR COUGH predniSONE 10MG Oral Tablet 12/01/2022 12/01/2022 ORAL DAILY 2 TABLET 444343 RxNorm TAKE 2 TABLET ORAL DAILY X 5 DAYS THEN 1 TAB DAILY X 5 DAYS THEN STOP guaiFENesin 600MG Oral Tablet, Extended Release 12/01/2022 07/27/2023 ORAL NEEDED TWICE DAILY 1 TABLET 477286 RxNorm TAKE 1 TABLET ORAL NEEDED TWICE DAILY FOR COUGH predniSONE 10MG Oral Tablet 12/01/2022 12/22/2022 ORAL DAILY 2 TABLET 133323 RxNorm TAKE 2 TABLET ORAL DAILY X 5 DAYS THEN 1 TAB DAILY X 5 DAYS THEN STOP Acetaminophe n 500MG Oral Tablet 12/01/2022 07/27/2023 ORAL NEEDED THREE TIMES A DAY 2 TABLET 408076 RxNorm TAKE 2 TABLET ORAL NEEDED THREE TIMES A DAY FOR PAIN Lisinopril 40MG Oral Tablet 12/01/2022 07/27/2023 ORAL DAILY 1 TABLET 106081 RxNorm TAKE 1 TABLET ORAL DAILY Ventolin HFA 0.09MG/1Actu ation Inhalation Suspension 12/01/2022 07/27/2023 INHALA TION 1 unit(s) 582274 RxNorm 1 EACH INHALATION Cefpodoxime Proxetil 200MG Oral Tablet 12/01/2022 12/22/2022 ORAL EVERY 12 HOURS 200 MILLIGRAMS 878048 RxNorm TAKE 200 MILLIGRAMS ORAL EVERY 12 HOURS Ibuprofen 600MG Oral Tablet 12/01/2022 07/27/2023 ORAL NEEDED THREE TIMES A DAY 600 MILLIGRAMS 546446 RxNorm TAKE 600 MILLIGRAMS ORAL NEEDED THREE TIMES A DAY FOR PAIN Combivent Respimat 100MCG-20MCG /1Act Inhalation Ford 12/01/2022 07/27/2023 INHALA TION NEEDED EVERY 8 HOURS 1 unit(s) 8922582 RxNorm 1 EACH INHALATION NEEDED EVERY 8 HOURS Depo-Testost erone Novaplus 200MG/1ML Intramuscula r Oil 12/01/2022 07/27/2023 INTRAM USCULA R 1 unit(s) 836224 RxNorm INJECT 1 EACH INTRAMUSCULA R Flovent 0.22MG/1Actu ation Inhalation Aerosol Powder 12/01/2022 07/27/2023 INHALA TION TWICE A DAY 1 unit(s) 525838 RxNorm 1 EACH INHALATION TWICE A DAY predniSONE 20MG Oral Tablet 12/22/2022 04/02/2023 ORAL DAILY 1 TABLET 369482 RxNorm TAKE 3 TABLETS DAILY FOR 3 DAYS, THEN 2 TABLETS DAILY FOR 3 DAYS, THEN 1 TABLET DAILY FOR 3 DAYS Albuterol Sulfate 0.09MG/1Actu ation Inhalation Suspension 12/30/2022 07/27/2023 INHALA TION NEEDED EVERY 4 HOURS 2 PUFF 1750290 RxNorm 2 PUFF INHALATION NEEDED EVERY 4 HOURS FOR Shortness of breath Narcan 4MG/0.1ML Nasal [place] 12/30/2022 07/27/2023 NASAL NEEDED 1 SPRAY 2567153 RxNorm SPRAY 1 SPRAY NASAL NEEDED FOR OPIATE OVERDOSE busPIRone 15MG Oral Tablet 04/05/2023 07/27/2023 ORAL THREE TIMES A DAY 15 MILLIGRAMS 548520 RxNorm TAKE 15 MILLIGRAMS ORAL THREE TIMES A DAY QUEtiapine 300MG Oral Tablet 04/05/2023 07/27/2023 ORAL BEDTIME 300 MILLIGRAMS 175999 RxNorm TAKE 300 MILLIGRAMS ORAL BEDTIME Senna Plus 50MG-8.6MG Oral Tablet 04/05/2023 07/27/2023 ORAL TWICE A DAY 2 TABLET 751828 RxNorm TAKE 2 TABLET ORAL TWICE A DAY Cefpodoxime Proxetil 200MG Oral Tablet 04/05/2023 06/04/2023 ORAL TWICE A DAY 1 TABLET 936166 RxNorm TAKE 1 TABLET ORAL TWICE A DAY predniSONE 10MG Oral Tablet 04/05/2023 06/04/2023 ORAL TWICE A DAY 2 TABLET 067063 RxNorm TAKE 2 TABLET ORAL TWICE A DAY for 3 days then 2 tabs daily x 3 days then 1 tab daily x 3 days oxygen 04/05/2023 Unknown ORAL continu ous 3 LITERS RxNorm TAKE 3 LITERS ORAL continuous Milk Of Magnesia 400MG/5ML Oral Suspension 06/13/2023 07/27/2023 ORAL NEEDED DAILY 30 mL 417116 RxNorm TAKE 30 mL ORAL NEEDED DAILY predniSONE 20MG Oral Tablet 07/27/2023 10/16/2023 ORAL DAILY 2 TABLET 641548 RxNorm TAKE 2 TABLET ORAL DAILY predniSONE 20MG Oral Tablet 09/15/2023 10/16/2023 ORAL DAILY 2 TABLET 946670 RxNorm TAKE 2 TABLET ORAL DAILY Cefpodoxime Proxetil 200MG Oral Tablet 10/22/2023 11/28/2023 ORAL EVERY 12 HOURS 200 MILLIGRAMS 285109 RxNorm TAKE 200 MILLIGRAMS ORAL EVERY 12 HOURS Anoro Ellipta 62.5MCG-25MC G/1ACT Inhalation Powder 10/22/2023 Unknown INHALA TION DAILY 1 GRAM 0751009 RxNorm 1 GRAM INHALATION DAILY DULoxetine HCl 60MG Oral Capsule, Delayed Release 10/22/2023 Unknown ORAL DAILY 60 MILLIGRAMS 050557 RxNorm TAKE 60 MILLIGRAMS ORAL DAILY LORazepam 1MG Oral Tablet 10/22/2023 Unknown ORAL NEEDED TWICE DAILY 1 MILLIGRAMS RxNorm TAKE 1 MILLIGRAMS ORAL NEEDED TWICE DAILY Linzess 145MCG Oral Capsule 10/22/2023 10/27/2023 ORAL DAILY 1 unit(s) 0643177 RxNorm TAKE 1 E ACH ORAL DAILY Lisinopril 40MG Oral Tablet 10/22/2023 Unknown ORAL DAILY 40 MILLIGRAMS 19771202 RxNorm TAKE 40 MILLIGRAMS ORAL DAILY Methadone 10MG Oral Tablet 10/22/2023 Unknown ORAL DAILY 132 MILLIGRAMS RxNorm TAKE 132 MILLIGRAMS ORAL DAILY Pregabalin 200MG Oral Capsule 10/22/2023 Unknown ORAL THREE TIMES A DAY 200 MILLIGRAMS 228388 RxNorm TAKE 200 MILLIGRAMS ORAL THREE TIMES A DAY QUEtiapine Fumarate 300MG Oral Tablet 10/22/2023 Unknown ORAL BEDTIME 300 MILLIGRAMS 837779 RxNorm TAKE 300 MILLIGRAMS ORAL BEDTIME Testosterone Cypionate 200MG/1ML Intramuscula r Oil 10/22/2023 Unknown 7714535 RxNorm As directed Ventolin HFA 0.09MG/1Actu ation Inhalation Suspension 10/22/2023 Unknown INHALA TION NEEDED EVERY 4 HOURS 2 PUFF 167498 RxNorm 2 PUFF INHALATION NEEDED EVERY 4 HOURS Acetaminophe n 500MG Oral Tablet 10/22/2023 Unknown ORAL THREE TIMES A DAY 2 TABLET 897117 RxNorm TAKE 2 TABLET ORAL THREE TIMES A DAY Ibuprofen 200MG Oral Tablet 10/22/2023 Unknown ORAL NEEDED THREE TIMES A DAY 3 TABLET 376608 RxNorm TAKE 3 TABLET ORAL NEEDED THREE TIMES A DAY predniSONE 10MG Oral Tablet 10/22/2023 12/01/2023 ORAL TWICE A DAY 2 TABLET 222827 RxNorm TAKE 2 TABLET ORAL TWICE A [...] 12/07/2023 ORAL TWICE A DAY 1 TABLET 159962 RxNorm TAKE 1 TABLET ORAL TWICE A DAY levoFLOXacin 750MG Oral Tablet 12/25/2023 Unknown ORAL DAILY 1 TABLET 178874 RxNorm TAKE 1 TABLET ORAL DAILY predniSONE 50MG Oral Tablet 12/25/2023 Unknown ORAL DAILY 1 TABLET 303282 RxNorm TAKE 1 TABLET ORAL DAILY Assessment [...] Date Status Code Code System PNEUMONIA active 978722687 SNOMED-CT POLYSUBSTANCE ABUSE active 034733024 SNOMED-CT ACUTE AND CHRONIC RESPIRATORY FAILURE WITH HYPERCAPNIA active 1479360760356 SNOMED-CT ACUTE AND CHRONIC RESPIRATORY FAILURE WITH HYPOXIA active 57312893 SNOMED-CT COPD WITH EXACERBATION active 2776574 07 SNOMED-CT ALCOHOL USE WITH WITHDRAWAL active 701606066 SNOMED-CT CHRONIC RESPIRATORY FAILURE WITH HYPOXIA 10/03/2021 resolved 24538247 SNOMED- CT OTHER SEIZURES 10/03/2021 resolved 01706569 SNOM ED-CT PULMONARY NODULE 10/03/2021 resolved 298403679 SN OMED-CT CHRONIC HEPATITIS C 10/03/2021 resolved 179094042 SNOMED-CT ANXIETY DISORDER 10/03/2021 resolved 216583564 SN OMED-CT 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 10/03/2021 resolved 056063293971930 SNOME D-CT NICOTINE DEPENDENCE 01/13/2021 resolved 70201914 SNOMED-CT VENOUS INSUFFICIENCY 10/03/2021 resolved 23689581 SNOMED-CT ALCOHOL INTOXICATION 11/26/2022 resolved 63379712 SNOMED-CT AMS 11/26/2022 resolved 140005643 SNOMED-CT HYPOKALEMIA 11/26/2022 resolved 07931473 SNOMED- CT OPIATE TOXICITY 06/04/2023 resolved 340455777 SNO MED-CT ACUTE ALCOHOL INTOXICATION 04/01/2023 resolved 0524974761 SNOMED-CT FEVER 06/04/2023 resolved 019612569 SNOMED-CT ALTERED MENTAL STATUS 06/04/2023 resolved 5493806 04 SNOMED-CT CHRONIC HEADACHE DISORDER 10/03/2021 resolved 965922755 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 946844 00 SNOMED-CT ALCOHOL DEPENDENCE WITH WITHDRAWAL 01/13/2021 resolved 87834917 SNOMED-CT HTN 10/03/2021 resolved 82871413 SNOMED-CT COPD 09/09/2021 resolved 78443573 SNOMED-CT HIGH CHOLESTEROL 09/09/2021 resolved 85777256 SN OMED-CT Allergies and Adverse Reactions Allergy Substance Reaction Severity Start Date Concern Status Code Code System PCN (penicillin) Anaphylaxis (SNOMED-CT: 48168531) Moderate Active 6173901 SNOMED-CT Plan of Treatment X-RAY 03/21/2022 MRI BRAIN W WO CONTRAST 12/06/2021 MRI BRAIN W WO CONTRAST 11/30/2021 LAB DRAW 15MIN 05/13/2021 Encounters Encounter Diagnosis Start Date Code Code Sys tem Pneumonia, unspecified organism 11/25/2022 SNOMED-CT Personal Care Team Section Performer Name Performer Role Active Date Inactive Da te Discharge Summary Notes [facility] 12/01/2022 15:37 All Demographics Patient Name Age Sex Visit Number Admission Date/Time Attending Physician Date of Service Room and Bed Emergency Contact ANTONIO DAUGHERTY Gayatri 1975 47 years Male [id number] 11/25/2022 14:51 ESTEFANI RODAS 11/25/2022 [id number] DANISGLENISLIANNE Marie - [id number] 12/01/2022 15:25 Discharge Date: 12/01/2022 Admission Diagnosis: Pneumonia Discharge Diagnosis: Pneumonia Primary Care Physician: Primary Care Physician: RAMIN Walsh Consulting Physician(s): Procedures: CT scan of the chest: Severe COPDemphysematous changes similar to study on 09/09/2021. Persistent infiltrates in the lingular segment of the left lung and right lower lobe. Increasing benign appearing markings in the lateral aspect of the right middle lobe. Multiple calcified granulomas and benign-appearing noncalcified nodules in both lungs. Calcified left hilar and subcarinal lymph nodes consistent with the presence of the multiple calcified lung granulomas. No prominent new infiltrates nor pleural effusions. No new nodules evident. No new adenopathy. Findings largely chronic. Recommendations: Discharge to home Continue supplemental oxygen Follow-up with PCP Dr. Castaneda Discharge Medications: Discharge Meds List Acetaminophen 500MG Oral Tablet, TAKE 2 TABLET ORAL NEEDED THREE TIMES A DAY FOR PAIN Anoro Ellipta 62.5MCG- 25MCG/1ACT Inhalation Powder, 1 PUFF INHALATION TWICE A DAY Cefpodoxime Proxetil 200MG Oral Tablet, TAKE 200 MILLIGRAMS ORAL EVERY 12 HOURS Combivent Respimat 100MCG- 20MCG/1Act Inhalation Ford, 1 EACH INHALATION NEEDED EVERY 8 HOURS Depo-Testosterone Novaplus 200MG/1ML Intramuscular Oil, INJECT 1 EACH INTRAMUSCULAR DULoxetine HCl 60MG Oral Capsule, Delayed Release, TAKE 60 MILLIGRAMS ORAL DAILY Flovent 0.22MG/1Actuation Inhalation Aerosol Powder, 1 EACH INHALATION TWICE A DAY guaiFENesin 600MG Oral Tablet, Extended Release, TAKE 1 TABLET ORAL NEEDED TWICE DAILY FOR COUGH Ibuprofen 600MG Oral Tablet, TAKE 600 MILLIGRAMS ORAL NEEDED THREE TIMES A DAY FOR PAIN Lisinopril 40MG Oral Tablet, TAKE 1 TABLET ORAL DAILY Methadone HCl 40MG Oral Tablet for Suspension, TAKE 132 MILLIGRAMS ORAL DAILY predniSONE 10MG Oral Tablet, TAKE 2 TABLET ORAL DAILY X 5 DAYS THEN 1 TAB DAILY X 5 DAYS THEN STOP Pregabalin 200MG Oral Capsule, TAKE 200 MILLIGRAMS ORAL THREE TIMES A DAY SEROquel 300MG Oral Tablet, TAKE 300 MILLIGRAMS ORAL BEDTIME Ventolin HFA 0.09MG/1Actuation Inhalation Suspension, 1 EACH INHALATION Zonisamide 100MG Oral Capsule, TAKE 200 MILLIGRAMS ORAL DAILY History of Present Illness and Hospital Course 47-year-old male with longstanding severe, oxygen dependent COPD with bullous emphysema who presented the emergency department with worsening shortness of breath and chest tightness. He has chronic pain for which she is maintained on high-dose methadone making his symptomatology a bit difficult to sort out. There is certainly no evidence of acute coronary syndrome. Chest x-ray revealed evidence of recurrent pneumonia. He is started on ceftriaxone and azithromycin, referred for admission to the hospital. He was provided with intravenous methylprednisolone, DuoNebs. He was started on lorazepam for severe underlying anxiety. With treatment his breathing appears to be at baseline. He does use oxygen [id number] at home. He complains of ongoing pain in his chest that is chronic and unchanged. He has been noted to be hypertensive, his lisinopril dose has been increased. I suspect that as his prednisone dose is tapered his blood pressure will likewise improved. He is felt to be stable for discharge home. Labs last 72 hours: No Labs Available Physical Exam: Vitals: Temperature 36.3 pulse 85 respiratory rate 20 blood pressure 149/82 oxygenation 92% on 2 L nasal cannula General: Chronically ill-appearing male currently appears comfortable. Has been ambulating frequently in the hallways Heart: Regular rate and rhythm with no murmurs rubs gallops appreciated Lungs: Diminished throughout but there are no crackles or wheezes Abdomen: Normoactive bowel sounds, taut soft and nontender Extremities: No cyanosis clubbing or edema in the left lower extremity. Status post right BKA. Neurologic: Patient is awake and alert and oriented Progress Notes [facility] 11/28/2022 16:21 11/28/2022, 15:04 46-year-old male with medical history significant for COPD on continuous home oxygen at 3 L, seizure disorder, chronic pain syndrome, history of polysubstance use disorder on methadone, hep C status post treatment without viral load, presenting with difficulty breathing found to have community acquired pneumonia and COPD exacerbation. Patient continues to conplain of dyspnea, pleuritic chest pain and anxiety. He is back down to his baseline 3 L oxygen. He is getting 4 mg of lorazepam every 4 hours and was started on 50 mg of diphenhydramine last night for anxiety. He is already on 300 mg of quetiapine at at bedtime. He says and is on oral antibiotics.He is on prednisone 20mg 3 times daily and complaining that he cannot clear his secretions. He did refuse a dose because he thought it made him anxious. Ordered Meds Table Ordered Medication Start Date/Time Dosage Route Frequency ALBUTEROL/IPRATROP UPDRAFT:2.5/0.5MG/3ML 11/25/2022 15:09 3 ML INHALATION X1 LISINOPRIL TABLET: 20MG 11/25/2022 14:49 20 MG ORAL DAILY PREGABALIN CAPSULE: 50MG 11/25/2022 17:26 200 MG ORAL TID DULoxetine CAPSULE DR: 30MG 11/25/2022 14:49 60 MG ORAL DAILY QUEtiapine TABLET: 100MG 11/25/2022 14:49 300 MG ORAL BEDTIME SODIUM CHLORIDE 0.9% FLUSH 10ML SYRINGE 11/25/2022 14:51 2 ML IV PUSH Q8H ACETAMINOPHEN TABLET: 325MG 11/25/2022 14:51 650 MG ORAL PRN Q4H NICOTINE TRANSDERM PATCH: 21MG 11/25/2022 17:05 21 MG TRANSDERMAL DAILY ARFORMOTEROL NEB SOLN: 15MCG/2ML 11/25/2022 14:51 15 MCG INHALATION BID RESP BUDESONIDE UPDRAFT: 0.5MG/2ML 11/25/2022 14:51 0.5 MG INHALATION BID RESP ALBUTEROL UPDRAFT 30CT UD: 2.5MG/3ML 11/25/2022 14:51 2.5 MG INHALATION PRN Q4H NICOTINE PATCH REMOVAL REMINDER 11/25/2022 17:06 1 EA TRANSDERMAL BEDTIME NF-Zonisamide Oral Capsule 100MG 11/25/2022 14:49 200 MG ORAL DAILY IPRATROPIUM INH JUSTYNA UD: 0.5MG/2.5ML 11/25/2022 14:57 0.5 MG INHALATION QID RESP METHADONE TABLET: 10MG 11/25/2022 14:49 130 MG ORAL DAILY SENNA/DOCUSATE TABLET: 8.6MG/50MG 11/26/2022 08:25 1 TAB ORAL PRN DAILY RICOLA COUGH DROP 11/26/2022 08:25 1 LOZENGE ORAL PRN LORazepam TABLET: 2MG 11/26/2022 15:26 4 MG ORAL PRN Q4H AZITHROMYCIN TABLET: 250MG 11/26/2022 16:28 250 MG ORAL DAILY PredniSONE TABLET: 20MG 11/26/2022 16:28 40 MG ORAL TID WITH FOOD DOCUSATE SODIUM CAPSULE: 100MG 11/27/2022 10:52 100 MG ORAL PRN BID MILK OF MAGNESIA SUSP UD: 2400MG/30ML 11/27/2022 10:53 30 ML ORAL PRN DAILY POLYETHYLENE GLYCOL PACKET 3350:17GM 11/27/2022 10:53 17 GRAMS ORAL PRN DAILY SENNA CONC TABLET: 8.6MG 11/27/2022 10:53 8.6 MG ORAL PRN DAILY CEFPODOXIME TABLET: 200MG 11/27/2022 12:05 200 MG ORAL Q12H GuaiFENesin EXT RELEASE TABLET: 600MG 11/27/2022 14:42 600 MG ORAL Q12H Vital Signs Most Recent Date/Time BP (mm/Hg) Heart Rate Resp Temp (C) SPO2% O2 Device 11/28/2022 07:43 131/92 82 20 36.6 TEMPORAL SCANNING 91 % O2 Cannula GEN: NAD EYES: No scleral icteris NECK: supple PULM: Poor air movement, expiratory wheezes throughout. CV: RRR with no m/r/g appreciated ABD: soft, nondistended EXT: no edema NEURO: A&Ox3, Non-focal. Problem List Polysubstance abuse Acute on chronic hypercapnic respiratory failure Pneumonia Eiagc-me-sljabup respiratory failure Acute exacerbation of chronic obstructive airways disease PLAN: Acute on chronic respiratory failure Supplemental O2 as needed to maintain sats >90%. Currently on 3L via nasal cannula which is his baseline. COPD Duonebs scheduled QID and PRN Budesonide and Arformoterol breathing treatments BID. Decrease steroids O2 as above Pneumonia Bilateral infiltrates on x-ray Switch to PO cefpodoxime and azithromycin - today is abx day #4 O2 as above Anxiety - add benadryl. Will not get lorazepam on discharge. [facility] 11/29/2022 15:48 11/29/2022, 15:46 46-year-old male with medical history significant for COPD on continuous home oxygen at 3 L, seizure disorder, chronic pain syndrome, history of polysubstance use disorder on methadone, hep C status post treatment without viral load, presenting with difficulty breathing found to have community acquired pneumonia and COPD exacerbation. Patient continues to conplain of dyspnea, pleuritic chest pain and anxiety. He is back down to his baseline 3 L oxygen. He has been getting 4 mg of lorazepam every 4 hours and was started on 50 mg of diphenhydramine last night for anxiety. He is already on 300 mg of quetiapine at at bedtime. He is on oral antibiotics.He is on prednisone 20mg 3 times daily and complaining that he cannot clear his secretions. He did refuse a dose because he thought it made him anxious. Ordered Meds Table Ordered Medication Start Date/Time Dosage Route Frequency ALBUTEROL/IPRATROP UPDRAFT:2.5/0.5MG/3ML 11/25/2022 15:09 3 ML INHALATION X1 LISINOPRIL TABLET: 20MG 11/25/2022 14:49 20 MG ORAL DAILY PREGABALIN CAPSULE: 50MG 11/25/2022 17:26 200 MG ORAL TID DULoxetine CAPSULE DR: 30MG 11/25/2022 14:49 60 MG ORAL DAILY QUEtiapine TABLET: 100MG 11/25/2022 14:49 300 MG ORAL BEDTIME SODIUM CHLORIDE 0.9% FLUSH 10ML SYRINGE 11/25/2022 14:51 2 ML IV PUSH Q8H ACETAMINOPHEN TABLET: 325MG 11/25/2022 14:51 650 MG ORAL PRN Q4H NICOTINE TRANSDERM PATCH: 21MG 11/25/2022 17:05 21 MG TRANSDERMAL DAILY ARFORMOTEROL NEB SOLN: 15MCG/2ML 11/25/2022 14:51 15 MCG INHALATION BID RESP BUDESONIDE UPDRAFT: 0.5MG/2ML 11/25/2022 14:51 0.5 MG INHALATION BID RESP ALBUTEROL UPDRAFT 30CT UD: 2.5MG/3ML 11/25/2022 14:51 2.5 MG INHALATION PRN Q4H NICOTINE PATCH REMOVAL REMINDER 11/25/2022 17:06 1 EA TRANSDERMAL BEDTIME NF-Zonisamide Oral Capsule 100MG 11/25/2022 14:49 200 MG ORAL DAILY IPRATROPIUM INH JUSTYNA UD: 0.5MG/2.5ML 11/25/2022 14:57 0.5 MG INHALATION QID RESP METHADONE TABLET: 10MG 11/25/2022 14:49 130 MG ORAL DAILY SENNA/DOCUSATE TABLET: 8.6MG/50MG 11/26/2022 08:25 1 TAB ORAL PRN DAILY RICOLA COUGH DROP 11/26/2022 08:25 1 LOZENGE ORAL PRN AZITHROMYCIN TABLET: 250MG 11/26/2022 16:28 250 MG ORAL DAILY DOCUSATE SODIUM CAPSULE: 100MG 11/27/2022 10:52 100 MG ORAL PRN BID MILK OF MAGNESIA SUSP UD: 2400MG/30ML 11/27/2022 10:53 30 ML ORAL PRN DAILY POLYETHYLENE GLYCOL PACKET 3350:17GM 11/27/2022 10:53 17 GRAMS ORAL PRN DAILY SENNA CONC TABLET: 8.6MG 11/27/2022 10:53 8.6 MG ORAL PRN DAILY CEFPODOXIME TABLET: 200MG 11/27/2022 12:05 200 MG ORAL Q12H GuaiFENesin EXT RELEASE TABLET: 600MG 11/27/2022 14:42 600 MG ORAL Q12H DiphenhydrAMINE CAP: 25MG 11/28/2022 16:19 25 MG ORAL PRN Q4H PredniSONE TABLET: 20MG 11/28/2022 16:21 40 MG ORAL DAILY WITH FOOD LORazepam TABLET: 2MG 11/29/2022 09:19 2 MG ORAL PRN Q4H Vital Signs Most Recent Date/Time BP (mm/Hg) Heart Rate Resp Temp (C) SPO2% O2 Device 11/29/2022 07:57 178/139 GEN: NAD EYES: No scleral icteris NECK: supple PULM: Poor air movement, expiratory wheezes throughout. CV: RRR with no m/r/g appreciated ABD: soft, nondistended EXT: no edema NEURO: A&Ox3, Non-focal. Problem List Polysubstance abuse Acute on chronic hypercapnic respiratory failure Pneumonia Ejuwc-uc-gdmzjgp respiratory failure Acute exacerbation of chronic obstructive airways disease PLAN: Acute on chronic respiratory failure Supplemental O2 as needed to maintain sats >90%. Currently on 3L via nasal cannula which is his baseline. COPD Duonebs scheduled QID and PRN Budesonide and Arformoterol breathing treatments BID. Decrease steroids- Wean O2 as above Pneumonia Bilateral infiltrates on x-ray Switch to PO cefpodoxime and azithromycin - today is abx day #5 O2 as above Anxiety - add benadryl. Will not get lorazepam on discharge. Lorazepam dose decreased to 2 mg p.o. every 4 hours as needed Add Tessalon Perles for cough Add ibuprofen for pleuritic chest pain [facility] 11/30/2022 16:28 11/30/2022, 16:26 46-year-old male with medical history significant for COPD on continuous home oxygen at 3 L, seizure disorder, chronic pain syndrome, history of polysubstance use disorder on methadone, hep C status post treatment without viral load, presenting with difficulty breathing found to have community acquired pneumonia and COPD exacerbation. Patient continues to conplain of dyspnea, pleuritic chest pain and anxiety. He is back down to his baseline 3 L oxygen. He has been getting 4 mg of lorazepam every 4 hours and was started on 50 mg of diphenhydramine last night for anxiety. He is already on 300 mg of quetiapine at at bedtime. He is on oral antibiotic And 40 mg of prednisone a day. He continues to complain of pleuritic chest pain despite ibuprofen, Tylenol and his usual high dose of methadone. Ordered Meds Table Ordered Medication Start Date/Time Dosage Route Frequency ALBUTEROL/IPRATROP UPDRAFT:2.5/0.5MG/3ML 11/25/2022 15:09 3 ML INHALATION X1 LISINOPRIL TABLET: 20MG 11/25/2022 14:49 20 MG ORAL DAILY PREGABALIN CAPSULE: 50MG 11/25/2022 17:26 200 MG ORAL TID DULoxetine CAPSULE DR: 30MG 11/25/2022 14:49 60 MG ORAL DAILY QUEtiapine TABLET: 100MG 11/25/2022 14:49 300 MG ORAL BEDTIME ACETAMINOPHEN TABLET: 325MG 11/25/2022 14:51 650 MG ORAL PRN Q4H NICOTINE TRANSDERM PATCH: 21MG 11/25/2022 17:05 21 MG TRANSDERMAL DAILY ARFORMOTEROL NEB SOLN: 15MCG/2ML 11/25/2022 14:51 15 MCG INHALATION BID RESP BUDESONIDE UPDRAFT: 0.5MG/2ML 11/25/2022 14:51 0.5 MG INHALATION BID RESP ALBUTEROL UPDRAFT 30CT UD: 2.5MG/3ML 11/25/2022 14:51 2.5 MG INHALATION PRN Q4H NICOTINE PATCH REMOVAL REMINDER 11/25/2022 17:06 1 EA TRANSDERMAL BEDTIME NF-Zonisamide Oral Capsule 100MG 11/25/2022 14:49 200 MG ORAL DAILY IPRATROPIUM INH JUSTYNA UD: 0.5MG/2.5ML 11/25/2022 14:57 0.5 MG INHALATION QID RESP METHADONE TABLET: 10MG 11/25/2022 14:49 130 MG ORAL DAILY SENNA/DOCUSATE TABLET: 8.6MG/50MG 11/26/2022 08:25 1 TAB ORAL PRN DAILY RICOLA COUGH DROP 11/26/2022 08:25 1 LOZENGE ORAL PRN AZITHROMYCIN TABLET: 250MG 11/26/2022 16:28 250 MG ORAL DAILY DOCUSATE SODIUM CAPSULE: 100MG 11/27/2022 10:52 100 MG ORAL PRN BID MILK OF MAGNESIA SUSP UD: 2400MG/30ML 11/27/2022 10:53 30 ML ORAL PRN DAILY POLYETHYLENE GLYCOL PACKET 3350:17GM 11/27/2022 10:53 17 GRAMS ORAL PRN DAILY SENNA CONC TABLET: 8.6MG 11/27/2022 10:53 8.6 MG ORAL PRN DAILY CEFPODOXIME TABLET: 200MG 11/27/2022 12:05 200 MG ORAL Q12H GuaiFENesin EXT RELEASE TABLET: 600MG 11/27/2022 14:42 600 MG ORAL Q12H DiphenhydrAMINE CAP: 25MG 11/28/2022 16:19 25 MG ORAL PRN Q4H PredniSONE TABLET: 20MG 11/28/2022 16:21 40 MG ORAL DAILY WITH FOOD LORazepam TABLET: 2MG 11/29/2022 09:19 2 MG ORAL PRN Q4H IBUPROFEN TABLET: 600MG 11/29/2022 15:45 600 MG ORAL TID BENZONATATE CAPSULE: 100MG 11/29/2022 15:50 100 MG ORAL TID Vital Signs Most Recent Date/Time BP (mm/Hg) Heart Rate Resp Temp (C) SPO2% O2 Device 11/30/2022 07:25 119/85 78 18 36.1 TEMPORAL SCANNING 96 % Room Air 21% GEN: NAD EYES: No scleral icteris NECK: supple PULM: Poor air movement, expiratory wheezes throughout. CV: RRR with no m/r/g appreciated ABD: soft, nondistended EXT: no edema NEURO: A&Ox3, Non-focal. Problem List Polysubstance abuse Acute on chronic hypercapnic respiratory failure Pneumonia Pcwga-nv-wdqdaeg respiratory failure Acute exacerbation of chronic obstructive airways disease PLAN: Acute on chronic respiratory failure Supplemental O2 as needed to maintain sats >90%. Currently on 3L via nasal cannula which is his baseline. COPD Duonebs scheduled QID and PRN Budesonide and Arformoterol breathing treatments BID. Decrease steroids- Wean O2 as above Pneumonia Bilateral infiltrates on x-ray Switch to PO cefpodoxime and azithromycin - today is abx day #6 O2 as above Anxiety - add benadryl. Will not get lorazepam on discharge. Lorazepam dose decreased to 2 mg p.o. every 4 hours as needed Add Tessalon Perles for cough Continue ibuprofen for pleuritic chest pain
--- OUTSIDE RECORDS SUMMARY | 2024-02-29 09:10 | XMS_ITS ---
Author Organization Unknown Address [address] [place] [address] [phone] Phone Care Team Providers Care [employer]el[employer]ater Name Role Phone FAINAKeegan EARL Danna Attending Unavailable Immunization Immunization Date Status Additional Notes Code Code System Tdap 10/03/2021 Completed 115 CVX Tdap 01/14/2022 Completed 115 CVX Social History Type Status Start Date End Date Code Code Syst em Smoking History Current every day smoker 702668425 SNOMED CT Smoking History Light tobacco smoker [id number] Smoking History Smoker, current status unknown [id number] SNOMED CT Sex Male Medications Medication Start Date End Date Route Frequency Dose Code Code System Medication Instructions Home Meds Lisinopril 20MG Oral Tablet 04/01/2019 12/01/2022 ORAL DAILY 20 MILLIGRAMS 462474 RxNorm TAKE 20 MILLIGRAMS ORAL DAILY Pregabalin 200MG Oral Capsule 04/01/2019 07/27/2023 ORAL THREE TIMES A DAY 200 MILLIGRAMS 004614 RxNorm TAKE 200 MILLIGRAMS ORAL THREE TIMES A DAY DULoxetine HCl 60MG Oral Capsule, Delayed Release 10/22/2019 07/27/2023 ORAL DAILY 60 MILLIGRAMS 268487 RxNorm TAKE 60 MILLIGRAMS ORAL DAILY Ibuprofen 200MG Oral Tablet 01/15/2021 11/25/2022 ORAL NEEDED THREE TIMES A DAY 600 MILLIGRAMS 939388 RxNorm TAKE 600 MILLIGRAMS ORAL NEEDED THREE TIMES A DAY Albuterol Sulfate 0.083% Inhalation Solution 10/05/2021 11/25/2022 INHALA TION NEEDED EVERY 4 HOURS 1 unit(s) 043371 RxNorm 1 EACH INHALATION NEEDED EVERY 4 HOURS Anoro Ellipta 62.5MCG-25MC G/1ACT Inhalation Powder 10/05/2021 07/27/2023 INHALA TION TWICE A DAY 1 PUFF 7459019 RxNorm 1 PUFF INHALATION TWICE A DAY Methadone HCl 40MG Oral Tablet for Suspension 10/05/2021 07/27/2023 ORAL DAILY 132 MILLIGRAMS 144603 RxNorm TAKE 132 MILLIGRAMS ORAL DAILY predniSONE 10MG Oral Tablet 02/16/2022 11/25/2022 ORAL THREE TIMES A DAY WITH FOOD 10 MILLIGRAMS 815346 RxNorm TAKE 10 MILLIGRAMS ORAL THREE TIMES A DAY WITH FOOD SEROquel 300MG Oral Tablet 02/16/2022 12/22/2022 ORAL BEDTIME 300 MILLIGRAMS 015661 RxNorm TAKE 300 MILLIGRAMS ORAL BEDTIME MiraLAX 17GM/1Dose Oral Powder for Solution 05/12/2022 11/25/2022 ORAL DAILY 17 GRAM 115326 RxNorm TAKE 17 GRAM ORAL DAILY Cefpodoxime Proxetil 200MG Oral Tablet 12/01/2022 12/22/2022 ORAL EVERY 12 HOURS 200 MILLIGRAMS 527998 RxNorm TAKE 200 MILLIGRAMS ORAL EVERY 12 HOURS Ibuprofen 600MG Oral Tablet 12/01/2022 07/27/2023 ORAL NEEDED THREE TIMES A DAY 600 MILLIGRAMS 492968 RxNorm TAKE 600 MILLIGRAMS ORAL NEEDED THREE TIMES A DAY FOR PAIN Combivent Respimat 100MCG-20MCG /1Act Inhalation Fortuna 12/01/2022 07/27/2023 INHALA TION NEEDED EVERY 8 HOURS 1 unit(s) 4775164 RxNorm 1 EACH INHALATION NEEDED EVERY 8 HOURS Depo-Testost erone Novaplus 200MG/1ML Intramuscula r Oil 12/01/2022 07/27/2023 INTRAM USCULA R 1 unit(s) 257157 RxNorm INJECT 1 EACH INTRAMUSCULA R Flovent 0.22MG/1Actu ation Inhalation Aerosol Powder 12/01/2022 07/27/2023 INHALA TION TWICE A DAY 1 unit(s) 799901 RxNorm 1 EACH INHALATION TWICE A DAY Ventolin HFA 0.09MG/1Actu ation Inhalation Suspension 12/01/2022 07/27/2023 INHALA TION 1 unit(s) 337234 RxNorm 1 EACH INHALATION Zonisamide 100MG Oral Capsule 12/01/2022 07/27/2023 ORAL DAILY 200 MILLIGRAMS 889582 RxNorm TAKE 200 MILLIGRAMS ORAL DAILY guaiFENesin 600MG Oral Tablet, Extended Release 12/01/2022 12/01/2022 ORAL NEEDED TWICE DAILY 1 TABLET 154996 RxNorm TAKE 1 TABLET ORAL NEEDED TWICE DAILY FOR COUGH predniSONE 10MG Oral Tablet 12/01/2022 12/01/2022 ORAL DAILY 2 TABLET 353291 RxNorm TAKE 2 TABLET ORAL DAILY X 5 DAYS THEN 1 TAB DAILY X 5 DAYS THEN STOP guaiFENesin 600MG Oral Tablet, Extended Release 12/01/2022 07/27/2023 ORAL NEEDED TWICE DAILY 1 TABLET 242299 RxNorm TAKE 1 TABLET ORAL NEEDED TWICE DAILY FOR COUGH predniSONE 10MG Oral Tablet 12/01/2022 12/22/2022 ORAL DAILY 2 TABLET 505397 RxNorm TAKE 2 TABLET ORAL DAILY X 5 DAYS THEN 1 TAB DAILY X 5 DAYS THEN STOP Acetaminophe n 500MG Oral Tablet 12/01/2022 07/27/2023 ORAL NEEDED THREE TIMES A DAY 2 TABLET 593048 RxNorm TAKE 2 TABLET ORAL NEEDED THREE TIMES A DAY FOR PAIN Lisinopril 40MG Oral Tablet 12/01/2022 07/27/2023 ORAL DAILY 1 TABLET 132917 RxNorm TAKE 1 TABLET ORAL DAILY predniSONE 20MG Oral Tablet 12/22/2022 04/02/2023 ORAL DAILY 1 TABLET 338258 RxNorm TAKE 3 TABLETS DAILY FOR 3 DAYS, THEN 2 TABLETS DAILY FOR 3 DAYS, THEN 1 TABLET DAILY FOR 3 DAYS Albuterol Sulfate 0.09MG/1Actu ation Inhalation Suspension 12/30/2022 07/27/2023 INHALA TION NEEDED EVERY 4 HOURS 2 PUFF 6789515 RxNorm 2 PUFF INHALATION NEEDED EVERY 4 HOURS FOR Shortness of breath Narcan 4MG/0.1ML Nasal Fortuna 12/30/2022 07/27/2023 NASAL NEEDED 1 SPRAY 8123182 RxNorm SPRAY 1 SPRAY NASAL NEEDED FOR OPIATE OVERDOSE QUEtiapine 300MG Oral Tablet 04/05/2023 07/27/2023 ORAL BEDTIME 300 MILLIGRAMS 696321 RxNorm TAKE 300 MILLIGRAMS ORAL BEDTIME Senna Plus 50MG-8.6MG Oral Tablet 04/05/2023 07/27/2023 ORAL TWICE A DAY 2 TABLET 176604 RxNorm TAKE 2 TABLET ORAL TWICE A DAY busPIRone 15MG Oral Tablet 04/05/2023 07/27/2023 ORAL THREE TIMES A DAY 15 MILLIGRAMS 532703 RxNorm TAKE 15 MILLIGRAMS ORAL THREE TIMES A DAY Cefpodoxime Proxetil 200MG Oral Tablet 04/05/2023 06/04/2023 ORAL TWICE A DAY 1 TABLET 727555 RxNorm TAKE 1 TABLET ORAL TWICE A DAY predniSONE 10MG Oral Tablet 04/05/2023 06/04/2023 ORAL TWICE A DAY 2 TABLET 303370 RxNorm TAKE 2 TABLET ORAL TWICE A DAY for 3 days then 2 tabs daily x 3 days then 1 tab daily x 3 days oxygen 04/05/2023 Unknown ORAL continu ous 3 LITERS RxNorm TAKE 3 LITERS ORAL continuous Milk Of Magnesia 400MG/5ML Oral Suspension 06/13/2023 07/27/2023 ORAL NEEDED DAILY 30 mL 333423 RxNorm TAKE 30 mL ORAL NEEDED DAILY predniSONE 20MG Oral Tablet 07/27/2023 10/16/2023 ORAL DAILY 2 TABLET 902897 RxNorm TAKE 2 TABLET ORAL DAILY predniSONE 20MG Oral Tablet 09/15/2023 10/16/2023 ORAL DAILY 2 TABLET 626128 RxNorm TAKE 2 TABLET ORAL DAILY Cefpodoxime Proxetil 200MG Oral Tablet 10/22/2023 11/28/2023 ORAL EVERY 12 HOURS 200 MILLIGRAMS 435630 RxNorm TAKE 200 MILLIGRAMS ORAL EVERY 12 HOURS Anoro Ellipta 62.5MCG-25MC G/1ACT Inhalation Powder 10/22/2023 Unknown INHALA TION DAILY 1 GRAM 8973226 RxNorm 1 GRAM INHALATION DAILY DULoxetine HCl 60MG Oral Capsule, Delayed Release 10/22/2023 Unknown ORAL DAILY 60 MILLIGRAMS 520521 RxNorm TAKE 60 MILLIGRAMS ORAL DAILY LORazepam 1MG Oral Tablet 10/22/2023 Unknown ORAL NEEDED TWICE DAILY 1 MILLIGRAMS 574014 RxNorm TAKE 1 MILLIGRAMS ORAL NEEDED TWICE DAILY Linzess 145MCG Oral Capsule 10/22/2023 10/27/2023 ORAL DAILY 1 unit(s) 3899305 RxNorm TAKE 1 E ACH ORAL DAILY Lisinopril 40MG Oral Tablet 10/22/2023 Unknown ORAL DAILY 40 MILLIGRAMS 19771202 RxNorm TAKE 40 MILLIGRAMS ORAL DAILY Methadone 10MG Oral Tablet 10/22/2023 Unknown ORAL DAILY 132 MILLIGRAMS RxNorm TAKE 132 MILLIGRAMS ORAL DAILY Pregabalin 200MG Oral Capsule 10/22/2023 Unknown ORAL THREE TIMES A DAY 200 MILLIGRAMS 807618 RxNorm TAKE 200 MILLIGRAMS ORAL THREE TIMES A DAY QUEtiapine Fumarate 300MG Oral Tablet 10/22/2023 Unknown ORAL BEDTIME 300 MILLIGRAMS 468761 RxNorm TAKE 300 MILLIGRAMS ORAL BEDTIME Testosterone Cypionate 200MG/1ML Intramuscula r Oil 10/22/2023 Unknown [id number] RxNorm As directed Ventolin HFA 0.09MG/1Actu ation Inhalation Suspension 10/22/2023 Unknown INHALA TION NEEDED EVERY 4 HOURS 2 PUFF 109688 RxNorm 2 PUFF INHALATION NEEDED EVERY 4 HOURS Acetaminophe n 500MG Oral Tablet 10/22/2023 Unknown ORAL THREE TIMES A DAY 2 TABLET 178024 RxNorm TAKE 2 TABLET ORAL THREE TIMES A DAY Ibuprofen 200MG Oral Tablet 10/22/2023 Unknown ORAL NEEDED THREE TIMES A DAY 3 TABLET 705333 RxNorm TAKE 3 TABLET ORAL NEEDED THREE TIMES A DAY predniSONE 10MG Oral Tablet 10/22/2023 12/01/2023 ORAL TWICE A DAY 2 TABLET 861411 RxNorm TAKE 2 TABLET ORAL TWICE A DAY x 3 days then 1 tab twice a day x 5 days then 1 tab daily predniSONE 10MG Oral Tablet 12/01/2023 12/07/2023 ORAL DAILY 4 TABLET 573686 RxNorm TAKE 4 TABLET ORAL DAILY x 3 days then 2 tabs daily x 3 days then 1 tab daily x 7 days Cefpodoxime Proxetil 200MG Oral Tablet 12/01/2023 12/07/2023 ORAL TWICE A DAY 1 TABLET 424881 RxNorm TAKE 1 TABLET ORAL TWICE A DAY levoFLOXacin 750MG Oral Tablet 12/25/2023 Unknown ORAL DAILY 1 TABLET 517434 RxNorm TAKE 1 TABLET ORAL DAILY predniSONE 50MG Oral Tablet 12/25/2023 Unknown ORAL DAILY 1 TABLET 766157 RxNorm TAKE 1 TABLET ORAL DAILY Assessment [...] Date Status Code Code System PNEUMONIA active [id number] SNOMED-CT POLYSUBSTANCE ABUSE active 874054316 SNOMED-CT ACUTE AND CHRONIC RESPIRATORY FAILURE WITH HYPERCAPNIA active [id number] SNOMED-CT ACUTE AND CHRONIC RESPIRATORY FAILURE WITH HYPOXIA active 07386404 SNOMED-CT COPD WITH EXACERBATION active 7999735 07 SNOMED-CT ALCOHOL USE WITH WITHDRAWAL active 644434573 SNOMED-CT CHRONIC RESPIRATORY FAILURE WITH HYPOXIA 10/03/2021 resolved 00677988 SNOMED- CT OTHER SEIZURES 10/03/2021 resolved 85384010 SNOM ED-CT PULMONARY NODULE 10/03/2021 resolved 288410194 SN OMED-CT CHRONIC HEPATITIS C 10/03/2021 resolved 710361761 SNOMED-CT ANXIETY DISORDER 10/03/2021 resolved 501645156 SN OMED-CT 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 10/03/2021 resolved [id number] SNOME D-CT NICOTINE DEPENDENCE 01/13/2021 resolved 95486718 SNOMED-CT VENOUS INSUFFICIENCY 10/03/2021 resolved 33458164 SNOMED-CT ALCOHOL INTOXICATION 11/26/2022 resolved 39901287 SNOMED-CT AMS 11/26/2022 resolved 172457800 SNOMED-CT HYPOKALEMIA 11/26/2022 resolved 43470234 SNOMED- CT OPIATE TOXICITY 06/04/2023 resolved 820747785 SNO MED-CT ACUTE ALCOHOL INTOXICATION 04/01/2023 resolved 4379207066 SNOMED-CT FEVER 06/04/2023 resolved 886784057 SNOMED-CT ALTERED MENTAL STATUS 06/04/2023 resolved 3939479 04 SNOMED-CT CHRONIC HEADACHE DISORDER 10/03/2021 resolved 883032635 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 648232 00 SNOMED-CT ALCOHOL DEPENDENCE WITH WITHDRAWAL 01/13/2021 resolved 80453807 SNOMED-CT HTN 10/03/2021 resolved 47916805 SNOMED-CT COPD 09/09/2021 resolved 49689074 SNOMED-CT HIGH CHOLESTEROL 09/09/2021 resolved 63539868 SN OMED-CT Allergies and Adverse Reactions Allergy Substance Reaction Severity Start Date Concern Status Code Code System PCN (penicillin) Anaphylaxis (SNOMED-CT: [id number]) Moderate Active 5493909 SNOMED-CT Plan of Treatment X-RAY 03/21/2022 MRI BRAIN W WO CONTRAST 12/06/2021 MRI BRAIN W WO CONTRAST 11/30/2021 LAB DRAW 15MIN 05/13/2021 Encounters Encounter Diagnosis Start Date Code Code Sys tem Pneumonia, unspecified organism 11/25/2022 SNOMED-CT Personal Care Team Section Performer Name Performer Role Active Date Inactive Da te
--- OUTSIDE RECORDS SUMMARY | 2024-02-29 09:11 | XMS_ITS ---
Author Organization Unknown Address [address] [place] [phone] Phone Care Team Providers Care Audio Visual Aids Director Name Role Phone KIMBERLI BROWNLEE Registered Nurse Unavailable KAMLA Clay Attending Unavailable RAMIN Walsh Primary Unavailable UNLISTED PROVIDER - REQUESTED Xhandoff Un available Immunization Immunization Date Status Additional Notes Code Code System Tdap 10/03/2021 Completed 115 CVX Tdap 01/14/2022 Completed 115 CVX Results MAGNESIUM SERUM* - Collect D ate/Time: 12/30/2022 13:45 [facility] ID: [id number] [address] [place] [address], [address] LOINC: 97465-2 Test Value Unit Reference Range Code Code System Flag MAGNESIUM 2.5 mg/dL L=1.8 H=2.4 49664-7 LOINC H LACTIC ACID - Collect Date/T vannessa: 12/30/2022 13:45 [facility] ID: [id number] [address] [place] [address], [address] LOINC: Test Value Unit Reference Range Code Code System Flag LACTIC ACID 2.1 mmol/L L=0.7 H=2.1 68618-4 LOINC COMPREHENSIVE METABOLIC PANE L (CMP) - Collect Date/Time: 12/30/2022 13:45 [facility] ID: [id number] [address] [place] [address], [address] LOINC: 00258-3 Test Value Unit Reference Range Code Code System Flag GLUCOSE 84 mg/dL L=70 H=116 2345-7 LOINC BUN 15 mg/dL L=6 H=25 3094-0 LOINC CREATININE 0.91 mg/dL L=0.67 H=1.17 2160-0 LOINC SODIUM SERUM 144 mmol/L L=136 H=145 2951-2 LOINC POTASSIUM SERUM 4.1 mmol/L L=3.4 H=5.2 2823-3 LOINC CHLORIDE SERUM 104 mmol/L L=96 H=110 2075-0 LOINC CARBON DIOXIDE (CO2) 33 mmol/L L=22 H=34 2028-9 LOINC ANION GAP 7.1 mmol/L 30518-7 LOINC CALCIUM SERUM 8.7 mg/dL L=8.2 H=10.2 94908-7 LOINC BILIRUBIN TOTAL 0.2 mg/dL L=0.0 H=1.3 1975-2 LOINC ALK. PHOS. 60 U/L L=46 H=116 6768-6 LOINC SGOT (AST) 23 U/L L=15 H=37 1920-8 LOINC SGPT (ALT) 31 U/L L=12 H=78 1742-6 LOINC TOTAL PROTEIN 7.0 gm/dL L=6.0 H=8.0 2885-2 LOINC ALBUMIN 3.8 gm/dL L=3.4 H=5.0 1751-7 LOINC AGE 47 years eGFR (non-Afr.Amer.) 89 mL/min 38434-1 LOINC eGFR (Afr-Burundian) 107 mL/min 34247-7 LOINC CBC W/ DIFFERENTIAL* - Colle ct Date/Time: 12/30/2022 13:45 [facility] ID: [id number] [address] [place], [place], [address] LOINC: 65510-3 Test Value Unit Reference Range Code Code System Flag WBC 7.44 th/cmm L=5.00 H=10.00 6690-2 LOINC NEUT % 57.0 % L=40.0 H=80.0 LYMPH % 28.8 % L=10.0 H=50.0 MONO % 10.3 % L=2.0 H=12.0 98023-0 LOINC EOS % 3.0 % L=0.0 H=8.0 BASO % 0.5 % L=0.0 H=3.0 IG % 0.4 % L=0.0 H=1.1 2514-8 LOINC NRBC % 0.0 % L=0.0 H=0.0 50923-7 LOINC NEUT abs count 4.2 th/cmm L=1.6 H=8.4 751-8 LOINC LYMPH abs count 2.1 th/cmm L=1.5 H=4.0 731-0 LOINC MONO abs count 0.8 th/cmm L=0.2 H=1.0 742-7 LOINC EOS abs count 0.2 th/cmm L=0.0 H=0.5 711-2 LOINC BASO abs count 0.0 th/cmm L=0.0 H=0.2 704-7 LOINC IG abs count 0.0 th/cmm L=0.0 H=0.1 62265-1 LOINC NRBC abs count 0.0 mil/cmm L=0.0 H=0.0 92026-3 LOINC RBC 4.98 mil/cmm L=4.30 H=6.20 789-8 LOINC HEMOGLOBIN 15.2 gm/dL L=13.0 H=17.0 718-7 LOINC HEMATOCRIT 47 % L=45 H=52 4544-3 LOINC MCV 95 fL L=82 H=92 787-2 LOINC H MCH 30.5 pg L=27.0 H=31.0 785-6 LOINC MCHC 32.1 % L=32.0 H=36.0 786-4 LOINC RDW-SD 55.0 fL L=39.0 H=49.0 788-0 LOINC H PLATELET COUNT 200 th/cmm L=150 H=450 777-3 LOINC ALCOHOL (ETHANOL)* - Collect Date/Time: 12/30/2022 13:45 [facility] ID: [id number] [address] [place], [place], [address] LOINC: 09981-4 Test Value Unit Reference Range Code Code System Flag ALCOHOL (ETHANOL) 130 mg/dL 71337-1 LOINC XR CHEST PORTABLE OR 1V - Co mpleted: 12/30/2022 13:38 LOINC: [facility] RADI[facility] [place], [place] [address] PACS GL[employer]WORKER REPORT Patient Name: ANTONIO DAUGHERTY MRN: Sex: : Age: [id number] M 1975 47 Account: Accession: Admit: StayType: [id number] 12/30/2022 E/R Ordered: Order ID: Submitted: Ordering Provider: 12/30/2022 13:31 [id number] PRIYA SALTER Completed: Technologist: Resulted: 12/30/2022 13:38 KM 12/30/2022 14:22 Study Description: XR CHEST PORTABLE OR 1V Study Reason: COPD Technique: 2D digital imaging was performed of the chest. 1 images were obtained. Comparison: Comparison is made with prior examinations. FINDINGS: MEDIASTINUM: Normal. HEART: Normal. PULMONARY VASCULATURE: Normal. LUNGS: There is now mild increase in the interstitial lung markings and prominence of the pulmonary vasculature. No focal consolidating infiltrates are seen. PLEURAL SPACE: No pleural effusion or pneumothorax. BONE:Within normal limits for the patient's age. OTHER FINDINGS:Normal. IMPRESSION: Mild pulmonary venous congestion and prominence of the interstitium which may present pulmonary edema. An interstitial pneumonia cannot be excluded. Please correlate clinically Report Digitally Signed by Priya Gutierrez on 12/30/2022 02:22 PM EDT Social History Type Status Start Date End Date Code Code Syst em Smoking History Current every day smoker 955097652 SNOMED CT Smoking History Light tobacco smoker [id number] Smoking History Smoker, current status unknown 54130700 SNOMED CT Sex Male Vital Signs Vital Sign Value Unit Justice Value Justice Unit Date/Time Recent/Initial? Code Code System Body Mass Index 27.17 kg/m2 12/30/2022 13:25 Initial 24140 -5 LOINC Systolic Blood Pressure 88 mm[Hg] 12/30/2022 16:40 Most Recent 8480- 6 LOINC Diastolic Blood Pressure 71 mm[Hg] 12/30/2022 16:40 Most Recent 8462- 4 LOINC Systolic Blood Pressure 101 mm[Hg] 12/30/2022 13:25 Initial 8480- 6 LOINC Diastolic Blood Pressure 72 mm[Hg] 12/30/2022 13:25 Initial 8462- 4 LOINC Body Surface Area 2.02 m2 12/30/2022 13:25 Initial 3140- 1 LOINC Height 175.260 0 cm 69.00 in 12/30/2022 13:25 Initial 8302- 2 INC O2 Saturation 90 % 2022 16:40 Most Recent 19593 -5 INC O2 Saturation 94 % 2022 14:15 Initial 91224 -5 INC Inhaled Oxygen Flow Rate 4.00 L/min 12/30/2022 15:00 Most Recent 3151- 8 LOINC Inhaled Oxygen Flow Rate 4.00 L/min 12/30/2022 14:15 Initial 3151- 8 LOINC Pulse 81.0 /min 12/30/2022 16:40 Most Recent 8867- 4 INC Pulse 72.0 /min 12/30/2022 13:25 Initial 8867- 4 LOINC Respiration 16 /min 12/31/19 23 16:40 Most Recent 9279- 1 INC Respiration 8 /min 12/31/19 13:25 Initial 9279- 1 INC Temperature 35.8 Regina 96.4 F 12/31/19 13:25 Initial 8310- 5 LOINC Weight 83.46 kg 184.00 lbs 12/30/2022 13:25 Initial 00375 -7 [facility] Medications Medication Start Date End Date Route Frequency Dose Code Code System Medication Instructions Home Meds Pregabalin 200MG Oral Capsule 04/01/2019 07/27/2023 ORAL THREE TIMES A DAY 200 MILLIGRAMS 393688 RxNorm TAKE 200 MILLIGRAMS ORAL THREE TIMES A DAY DULoxetine HCl 60MG Oral Capsule, Delayed Release 10/22/2019 07/27/2023 ORAL DAILY 60 MILLIGRAMS 597991 RxNorm TAKE 60 MILLIGRAMS ORAL DAILY Anoro Ellipta 62.5MCG-25MC G/1ACT Inhalation Powder 10/05/2021 07/27/2023 INHALA TION TWICE A DAY 1 PUFF 5288636 RxNorm 1 PUFF INHALATION TWICE A DAY Methadone HCl 40MG Oral Tablet for Suspension 10/05/2021 07/27/2023 ORAL DAILY 132 MILLIGRAMS 799712 RxNorm TAKE 132 MILLIGRAMS ORAL DAILY Ibuprofen 600MG Oral Tablet 12/01/2022 07/27/2023 ORAL NEEDED THREE TIMES A DAY 600 MILLIGRAMS 302500 RxNorm TAKE 600 MILLIGRAMS ORAL NEEDED THREE TIMES A DAY FOR PAIN Combivent Respimat 100MCG-20MCG /1Act Inhalation Cosby 12/01/2022 07/27/2023 INHALA TION NEEDED EVERY 8 HOURS 1 unit(s) 1590842 RxNorm 1 EACH INHALATION NEEDED EVERY 8 HOURS Depo-Testost erone Novaplus 200MG/1ML Intramuscula r Oil 12/01/2022 07/27/2023 INTRAM USCULA R 1 unit(s) 536460 RxNorm INJECT 1 EACH INTRAMUSCULA R Flovent 0.22MG/1Actu ation Inhalation Aerosol Powder 12/01/2022 07/27/2023 INHALA TION TWICE A DAY 1 unit(s) 001753 RxNorm 1 EACH INHALATION TWICE A DAY Ventolin HFA 0.09MG/1Actu ation Inhalation Suspension 12/01/2022 07/27/2023 INHALA TION 1 unit(s) 485015 RxNorm 1 EACH INHALATION Zonisamide 100MG Oral Capsule 12/01/2022 07/27/2023 ORAL DAILY 200 MILLIGRAMS 897192 RxNorm TAKE 200 MILLIGRAMS ORAL DAILY guaiFENesin 600MG Oral Tablet, Extended Release 12/01/2022 07/27/2023 ORAL NEEDED TWICE DAILY 1 TABLET 326193 RxNorm TAKE 1 TABLET ORAL NEEDED TWICE DAILY FOR COUGH Acetaminophe n 500MG Oral Tablet 12/01/2022 07/27/2023 ORAL NEEDED THREE TIMES A DAY 2 TABLET 838315 RxNorm TAKE 2 TABLET ORAL NEEDED THREE TIMES A DAY FOR PAIN Lisinopril 40MG Oral Tablet 12/01/2022 07/27/2023 ORAL DAILY 1 TABLET 181588 RxNorm TAKE 1 TABLET ORAL DAILY predniSONE 20MG Oral Tablet 12/22/2022 04/02/2023 ORAL DAILY 1 TABLET 091279 RxNorm TAKE 3 TABLETS DAILY FOR 3 DAYS, THEN 2 TABLETS DAILY FOR 3 DAYS, THEN 1 TABLET DAILY FOR 3 DAYS Albuterol Sulfate 0.09MG/1Actu ation Inhalation Suspension 12/30/2022 07/27/2023 INHALA TION NEEDED EVERY 4 HOURS 2 PUFF 7879676 RxNorm 2 PUFF INHALATION NEEDED EVERY 4 HOURS FOR Shortness of breath Narcan 4MG/0.1ML Nasal Cosby 12/30/2022 07/27/2023 NASAL NEEDED 1 SPRAY 5388800 RxNorm SPRAY 1 SPRAY NASAL NEEDED FOR OPIATE OVERDOSE QUEtiapine 300MG Oral Tablet 04/05/2023 07/27/2023 ORAL BEDTIME 300 MILLIGRAMS 949165 RxNorm TAKE 300 MILLIGRAMS ORAL BEDTIME Senna Plus 50MG-8.6MG Oral Tablet 04/05/2023 07/27/2023 ORAL TWICE A DAY 2 TABLET 729237 RxNorm TAKE 2 TABLET ORAL TWICE A DAY busPIRone 15MG Oral Tablet 04/05/2023 07/27/2023 ORAL THREE TIMES A DAY 15 MILLIGRAMS 261104 RxNorm TAKE 15 MILLIGRAMS ORAL THREE TIMES A DAY Cefpodoxime Proxetil 200MG Oral Tablet 04/05/2023 06/04/2023 ORAL TWICE A DAY 1 TABLET 298948 RxNorm TAKE 1 TABLET ORAL TWICE A DAY predniSONE 10MG Oral Tablet 04/05/2023 06/04/2023 ORAL TWICE A DAY 2 TABLET 460539 RxNorm TAKE 2 TABLET ORAL TWICE A DAY for 3 days then 2 tabs daily x 3 days then 1 tab daily x 3 days oxygen 04/05/2023 Unknown ORAL continu ous 3 LITERS RxNorm TAKE 3 LITERS ORAL continuous Milk Of Magnesia 400MG/5ML Oral Suspension 06/13/2023 07/27/2023 ORAL NEEDED DAILY 30 mL 132655 RxNorm TAKE 30 mL ORAL NEEDED DAILY predniSONE 20MG Oral Tablet 07/27/2023 10/16/2023 ORAL DAILY 2 TABLET 764950 RxNorm TAKE 2 TABLET ORAL DAILY predniSONE 20MG Oral Tablet 09/15/2023 10/16/2023 ORAL DAILY 2 TABLET 281635 RxNorm TAKE 2 TABLET ORAL DAILY Cefpodoxime Proxetil 200MG Oral Tablet 10/22/2023 11/28/2023 ORAL EVERY 12 HOURS 200 MILLIGRAMS 610422 RxNorm TAKE 200 MILLIGRAMS ORAL EVERY 12 HOURS Anoro Ellipta 62.5MCG-25MC G/1ACT Inhalation Powder 10/22/2023 Unknown INHALA TION DAILY 1 GRAM 9101686 RxNorm 1 GRAM INHALATION DAILY DULoxetine HCl 60MG Oral Capsule, Delayed Release 10/22/2023 Unknown ORAL DAILY 60 MILLIGRAMS 493755 RxNorm TAKE 60 MILLIGRAMS ORAL DAILY LORazepam 1MG Oral Tablet 10/22/2023 Unknown ORAL NEEDED TWICE DAILY 1 MILLIGRAMS 283313 RxNorm TAKE 1 MILLIGRAMS ORAL NEEDED TWICE DAILY Linzess 145MCG Oral Capsule 10/22/2023 10/27/2023 ORAL DAILY 1 unit(s) 2144140 RxNorm TAKE 1 E ACH ORAL DAILY Lisinopril 40MG Oral Tablet 10/22/2023 Unknown ORAL DAILY 40 MILLIGRAMS 19771202 RxNorm TAKE 40 MILLIGRAMS ORAL DAILY Methadone 10MG Oral Tablet 10/22/2023 Unknown ORAL DAILY 132 MILLIGRAMS RxNorm TAKE 132 MILLIGRAMS ORAL DAILY Pregabalin 200MG Oral Capsule 10/22/2023 Unknown ORAL THREE TIMES A DAY 200 MILLIGRAMS 214856 RxNorm TAKE 200 MILLIGRAMS ORAL THREE TIMES A DAY QUEtiapine Fumarate 300MG Oral Tablet 10/22/2023 Unknown ORAL BEDTIME 300 MILLIGRAMS 041240 RxNorm TAKE 300 MILLIGRAMS ORAL BEDTIME Testosterone Cypionate 200MG/1ML Intramuscula r Oil 10/22/2023 Unknown 8945186 RxNorm As directed Ventolin HFA 0.09MG/1Actu ation Inhalation Suspension 10/22/2023 Unknown INHALA TION NEEDED EVERY 4 HOURS 2 PUFF 780045 RxNorm 2 PUFF INHALATION NEEDED EVERY 4 HOURS Acetaminophe n 500MG Oral Tablet 10/22/2023 Unknown ORAL THREE TIMES A DAY 2 TABLET 445798 RxNorm TAKE 2 TABLET ORAL THREE TIMES A DAY Ibuprofen 200MG Oral Tablet 10/22/2023 Unknown ORAL NEEDED THREE TIMES A DAY 3 TABLET 223190 RxNorm TAKE 3 TABLET ORAL NEEDED THREE TIMES A DAY predniSONE 10MG Oral Tablet 10/22/2023 12/01/2023 ORAL TWICE A DAY 2 TABLET 844368 RxNorm TAKE 2 TABLET ORAL TWICE A DAY x 3 days then 1 tab twice a day x 5 days then 1 tab daily predniSONE 10MG Oral Tablet 12/01/2023 12/07/2023 ORAL DAILY 4 TABLET 894434 RxNorm TAKE 4 TABLET ORAL DAILY x 3 days then 2 tabs daily x 3 days then 1 tab daily x 7 days Cefpodoxime Proxetil 200MG Oral Tablet 12/01/2023 12/07/2023 ORAL TWICE A DAY 1 TABLET 680648 RxNorm TAKE 1 TABLET ORAL TWICE A DAY levoFLOXacin 750MG Oral Tablet 12/25/2023 Unknown ORAL DAILY 1 TABLET 790658 RxNorm TAKE 1 TABLET ORAL DAILY predniSONE 50MG Oral Tablet 12/25/2023 Unknown ORAL DAILY 1 TABLET 762675 RxNorm TAKE 1 TABLET ORAL DAILY Assessment [...] Date Status Code Code System PNEUMONIA active 119045177 SNOMED-CT POLYSUBSTANCE ABUSE active 143500575 SNOMED-CT ACUTE AND CHRONIC RESPIRATORY FAILURE WITH HYPERCAPNIA active 3832032955977 SNOMED-CT ACUTE AND CHRONIC RESPIRATORY FAILURE WITH HYPOXIA active 83768598 SNOMED-CT COPD WITH EXACERBATION active 8523486 07 SNOMED-CT ALCOHOL USE WITH WITHDRAWAL active 668325735 SNOMED-CT CHRONIC RESPIRATORY FAILURE WITH HYPOXIA 10/03/2021 resolved 04426533 SNOMED- CT OTHER SEIZURES 10/03/2021 resolved 86928789 SNOM ED-CT PULMONARY NODULE 10/03/2021 resolved 422135647 SN OMED-CT CHRONIC HEPATITIS C 10/03/2021 resolved 878169661 SNOMED-CT ANXIETY DISORDER 10/03/2021 resolved 201081020 SN OMED-CT 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 10/03/2021 resolved 565977985854571 SNOME D-CT NICOTINE DEPENDENCE 01/13/2021 resolved 21268893 SNOMED-CT VENOUS INSUFFICIENCY 10/03/2021 resolved 39704716 SNOMED-CT ALCOHOL INTOXICATION 11/26/2022 resolved 19449276 SNOMED-CT AMS 11/26/2022 resolved 922956810 SNOMED-CT HYPOKALEMIA 11/26/2022 resolved 79035682 SNOMED- CT OPIATE TOXICITY 06/04/2023 resolved 633974247 SNO MED-CT ACUTE ALCOHOL INTOXICATION 04/01/2023 resolved 8592514888 SNOMED-CT FEVER 06/04/2023 resolved 513902276 SNOMED-CT ALTERED MENTAL STATUS 06/04/2023 resolved 5218273 04 SNOMED-CT CHRONIC HEADACHE DISORDER 10/03/2021 resolved 867250384 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 729684 00 SNOMED-CT ALCOHOL DEPENDENCE WITH WITHDRAWAL 01/13/2021 resolved 45949435 SNOMED-CT HTN 10/03/2021 resolved 74061017 SNOMED-CT COPD 09/09/2021 resolved 43849939 SNOMED-CT HIGH CHOLESTEROL 09/09/2021 resolved 07477406 SN OMED-CT Allergies and Adverse Reactions Allergy Substance Reaction Severity Start Date Concern Status Code Code System PCN (penicillin) Anaphylaxis (SNOMED-CT: 40458718) Moderate Active 6719213 SNOMED-CT Plan of Treatment X-RAY 03/21/2022 MRI BRAIN W WO CONTRAST 12/06/2021 MRI BRAIN W WO CONTRAST 11/30/2021 LAB DRAW 15MIN 05/13/2021 OUTPATIENT PLAN: Additional Physician Instructions: Please stop abusing drugs and alcohol. You stopped breathing today due to using an opiate that you don't remember using. Please consider [facility]. Your prescription was printed. Discharge Medications Medication Dosage Route Frequency Prescribing MD Special Instructions Albuterol Sulfate 0.09MG/1Actuation Inhalation Suspension 2 PUFF INHALATION NEEDED EVERY 4 HOURS KAMLA Clay 2 PUFF INHALATION NEEDED EVERY 4 HOURS FOR Shortness of breath Narcan 4MG/0.1ML Nasal Cosby (provided by ER) 1 SPRAY NASAL NEEDED KAMLA Clay SPRAY 1 SPRAY NASAL NEEDED FOR OPIATE OVERDOSE HOSPITAL COURSE AND TESTING: Medications given this visit: Ordered & Completed Meds Table Ordered Medication Start Date/Time Dosage Route Frequency Status ACETAMINOPHEN INJ IVPB: 1000MG/100ML 12/30/2022 13:31 400 ml/hr IV PIGGYBACK X1 completed DexAMETHasone INJ SDV PF: 10MG/1ML 12/30/2022 13:32 10 MG IV PUSH X1 completed ALBUTEROL/IPRATROP UPDRAFT:2.5/0.5MG/3ML 12/30/2022 13:32 6 ML INHALATION X1 completed NALOXONE INJ SDV: 0.4MG/ML 12/30/2022 14:56 0.2 MG IV PUSH X1 completed HALOPERIDOL LACTATE INJ: 5MG/1ML 12/30/2022 15:12 2.5 MG IV PUSH X1 completed HydrOXYzine PAMOATE CAPSULE: 25MG 12/30/2022 16:28 25 MG ORAL X1 completed IBUPROFEN TABLET: 600MG 12/30/2022 16:28 600 MG ORAL X1 completed Lab Results: This Visit Test Results Units Reference Range Ordered Collected Status ALCOHOL (ETHANOL) 130 mg/dL 12/30/2022 13:31 12/30/2022 13:45 final WBC 7.44 th/cmm L=5.00 H=10.00 12/30/2022 13:31 12/30/2022 13:45 final NEUT % 57 % L=40.0 H=80.0 12/30/2022 13:31 12/30/2022 13:45 final LYMPH % 28.8 % L=10.0 H=50.0 12/30/2022 13:31 12/30/2022 13:45 final MONO % 10.3 % L=2.0 H=12.0 12/30/2022 13:31 12/30/2022 13:45 final EOS % 3 % L=0.0 H=8.0 12/30/2022 13:31 12/30/2022 13:45 final BASO % 0.5 % L=0.0 H=3.0 12/30/2022 13:31 12/30/2022 13:45 final IG % 0.4 % L=0.0 H=1.1 12/30/2022 13:31 12/30/2022 13:45 final NRBC % 0 % L=0.0 H=0.0 12/30/2022 13:31 12/30/2022 13:45 final NEUT abs count 4.2 th/cmm L=1.6 H=8.4 12/30/2022 13:31 12/30/2022 13:45 final LYMPH abs count 2.1 th/cmm L=1.5 H=4.0 12/30/2022 13:31 12/30/2022 13:45 final MONO abs count 0.8 th/cmm L=0.2 H=1.0 12/30/2022 13:31 12/30/2022 13:45 final EOS abs count 0.2 th/cmm L=0.0 H=0.5 12/30/2022 13:31 12/30/2022 13:45 final BASO abs count 0 th/cmm L=0.0 H=0.2 12/30/2022 13:31 12/30/2022 13:45 final IG abs count 0 th/cmm L=0.0 H=0.1 12/30/2022 13:31 12/30/2022 13:45 final NRBC abs count 0 mil/cmm L=0.0 H=0.0 12/30/2022 13:31 12/30/2022 13:45 final RBC 4.98 mil/cmm L=4.30 H=6.20 12/30/2022 13:31 12/30/2022 13:45 final HEMOGLOBIN 15.2 gm/dL L=13.0 H=17.0 12/30/2022 13:31 12/30/2022 13:45 final HEMATOCRIT 47 % L=45 H=52 12/30/2022 13:12/30/2022 13:45 final MCV 95 H fL L=82 H=92 12/30/2022 13:12/30/2022 13:45 final MCH 30.5 pg L=27.0 H=31.0 12/30/2022 13:12/30/2022 13:45 final MCHC 32.1 % L=32.0 H=36.0 12/30/2022 13:31 12/30/2022 13:45 final RDW-SD 55 H fL L=39.0 H=49.0 12/30/2022 13:31 12/30/2022 13:45 final PLATELET COUNT 200 th/cmm L=150 H=450 12/30/2022 13:31 12/30/2022 13:45 final GLUCOSE 84 mg/dL L=70 H=116 12/30/2022 13:31 12/30/2022 13:45 final BUN 15 mg/dL L=6 H=25 12/30/2022 13:31 12/30/2022 13:45 final CREATININE 0.91 mg/dL L=0.67 H=1.17 12/30/2022 13:31 12/30/2022 13:45 final SODIUM SERUM 144 mmol/L L=136 H=145 12/30/2022 13:31 12/30/2022 13:45 final POTASSIUM SERUM 4.1 mmol/L L=3.4 H=5.2 12/30/2022 13:31 12/30/2022 13:45 final CHLORIDE SERUM 104 mmol/L L=96 H=110 12/30/2022 13:31 12/30/2022 13:45 final CARBON DIOXIDE (CO2) 33 mmol/L L=22 H=34 12/30/2022 13:31 12/30/2022 13:45 final ANION GAP 7.1 mmol/L 12/30/2022 13:31 12/30/2022 13:45 final CALCIUM SERUM 8.7 mg/dL L=8.2 H=10.2 12/30/2022 13:31 12/30/2022 13:45 final BILIRUBIN TOTAL 0.2 mg/dL L=0.0 H=1.3 12/30/2022 13:31 12/30/2022 13:45 final ALK. PHOS. 60 U/L L=46 H=116 12/30/2022 13:31 12/30/2022 13:45 final SGOT (AST) 23 U/L L=15 H=37 12/30/2022 13:31 12/30/2022 13:45 final SGPT (ALT) 31 U/L L=12 H=78 12/30/2022 13:31 12/30/2022 13:45 final TOTAL PROTEIN 7 gm/dL L=6.0 H=8.0 12/30/2022 13:31 12/30/2022 13:45 final ALBUMIN 3.8 gm/dL L=3.4 H=5.0 12/30/2022 13:31 12/30/2022 13:45 final AGE 47 years 12/30/2022 13:31 12/30/2022 13:45 final eGFR (non-Afr.Amer.) 89 mL/min 12/30/2022 13:31 12/30/2022 13:45 final eGFR (Afr-Burundian) 107 mL/min 12/30/2022 13:31 12/30/2022 13:45 final LACTIC ACID 2.1 mmol/L L=0.7 H=2.1 12/30/2022 13:31 12/30/2022 13:45 final MAGNESIUM 2.5 H mg/dL L=1.8 H=2.4 12/30/2022 13:31 12/30/2022 13:45 final DRUG SCN 13 PANEL (MEDTOX)* 12/30/2022 13:31 registered URINALYSIS WITH REFLEX CULT IF POSITIVE* 12/30/2022 13:31 registered Encounters Encounter Diagnosis Start Date Code Code Sys tem Poisoning caused by opioid receptor agonist 12/30/2022 [id number] SNOMED-CT Personal Care Team Section Performer Name Performer Role Active Date Inactive Da elias
--- OUTSIDE RECORDS SUMMARY | 2024-02-29 09:11 | XMS_ITS ---
Author Organization Unknown Address [address] [place] [address] [phone] Phone Care Team Providers Care Fine Grader Name Role Phone ROSELIA JIMENEZ Registered Nurse Unavailable GINA Bee Attending Unavailable RAMIN Walsh Primary Unavailable UNLISTED PROVIDER - REQUESTED Xhandoff Un available Immunization Immunization Date Status Additional Notes Code Code System Tdap 10/03/2021 Completed 115 CVX Tdap 01/14/2022 Completed 115 CVX Results ORDER VENOUS BLOOD GAS* - Co llect Date/Time: 12/22/2022 14:41 [facility] ID: [id number] [address] [place] [address], [id number] LOINC: Test Value Unit Reference Range Code Code System Flag Specimen type: VENOUS pH (venous) 7.33 L=7.38 H=7.46 2746-6 LOINC L PCO2 (venous) 52.3 mm Hg L=41.0 H=51.0 2703-7 LOINC H PO2 (venous) L=30 H=50 HCO3 28 mmol/L L=22 H=26 1960-4 LOINC H TCO2 (venous) 29 mmol/L L=22 H=28 3533-7 LOINC H BASE EXCESS (venous) 2 mmol/L L=-2 H=3 3097-3 LOINC Assist vent. Resp. Rate /min. Temp. TROPONIN HIGH SENSITIVITY* - Collect Date/Time: 12/22/2022 13:05 [facility] ID: [id number] [address] [place] [address], 5661 LOINC: 74493-1 Test Value Unit Reference Range Code Code System Flag TROPONIN HS 4.7 pg/mL L=0.0 H=60.4 Specimen seq. RANDOM BNP (PRO-B NATRIURETIC PEPTI DE) - Collect Date/Time: 12/22/2022 13:05 [facility] ID: [id number] [address] [place] [address], 5661 LOINC: 81183-1 Test Value Unit Reference Range Code Code System Flag NT-proBNP 45.0 pg/mL L=0.0 H=125 03245-5 LOINC COMPREHENSIVE METABOLIC PANE L (CMP) - Collect Date/Time: 12/22/2022 13:05 [facility] ID: [id number] [address] [place] [address], 5661 LOINC: 04940-5 Test Value Unit Reference Range Code Code System Flag GLUCOSE 104 mg/dL L=70 H=116 2345-7 LOINC BUN 32 mg/dL L=6 H=25 3094-0 LOINC H CREATININE 0.91 mg/dL L=0.67 H=1.17 2160-0 LOINC SODIUM SERUM 140 mmol/L L=136 H=145 2951-2 LOINC POTASSIUM SERUM 4.1 mmol/L L=3.4 H=5.2 2823-3 LOINC CHLORIDE SERUM 100 mmol/L L=96 H=110 2075-0 LOINC CARBON DIOXIDE (CO2) 33 mmol/L L=22 H=34 2028-9 LOINC ANION GAP 7.2 mmol/L 58914-4 LOINC CALCIUM SERUM 9.0 mg/dL L=8.2 H=10.2 66529-0 LOINC BILIRUBIN TOTAL 0.6 mg/dL L=0.0 H=1.3 1975-2 LOINC ALK. PHOS. 54 U/L L=46 H=116 6768-6 LOINC SGOT (AST) 44 U/L L=15 H=37 1920-8 LOINC H SGPT (ALT) 50 U/L L=12 H=78 1742-6 LOINC TOTAL PROTEIN 7.4 gm/dL L=6.0 H=8.0 2885-2 LOINC ALBUMIN 4.0 gm/dL L=3.4 H=5.0 1751-7 LOINC AGE 47 years eGFR (non-Afr.Amer.) 89 mL/min 61150-4 LOINC eGFR (Afr-Congolese) 107 mL/min 48177-0 LOINC CBC W/ DIFFERENTIAL* - Colle ct Date/Time: 12/22/2022 13:05 [facility] ID: [id number] [address] [place], [place], 54 LOINC: 03805-7 Test Value Unit Reference Range Code Code System Flag WBC 11.88 th/cmm L=5.00 H=10.00 6690-2 LOINC H NEUT % 61.6 % L=40.0 H=80.0 LYMPH % 27.2 % L=10.0 H=50.0 MONO % 8.8 % L=2.0 H=12.0 97229-2 LOINC EOS % 1.3 % L=0.0 H=8.0 BASO % 0.8 % L=0.0 H=3.0 IG % 0.3 % L=0.0 H=1.1 2514-8 LOINC NRBC % 0.0 % L=0.0 H=0.0 08877-2 LOINC NEUT abs count 7.3 th/cmm L=1.6 H=8.4 751-8 LOINC LYMPH abs count 3.2 th/cmm L=1.5 H=4.0 731-0 LOINC MONO abs count 1.1 th/cmm L=0.2 H=1.0 742-7 LOINC H EOS abs count 0.2 th/cmm L=0.0 H=0.5 711-2 LOINC BASO abs count 0.1 th/cmm L=0.0 H=0.2 704-7 LOINC IG abs count 0.0 th/cmm L=0.0 H=0.1 03530-8 LOINC NRBC abs count 0.0 mil/cmm L=0.0 H=0.0 44577-6 LOINC RBC 5.10 mil/cmm L=4.30 H=6.20 789-8 LOINC HEMOGLOBIN 15.4 gm/dL L=13.0 H=17.0 718-7 LOINC HEMATOCRIT 48 % L=45 H=52 4544-3 LOINC MCV 94 fL L=82 H=92 787-2 LOINC H MCH 30.2 pg L=27.0 H=31.0 785-6 LOINC MCHC 32.2 % L=32.0 H=36.0 786-4 LOINC RDW-SD 56.4 fL L=39.0 H=49.0 788-0 LOINC H PLATELET COUNT 258 th/cmm L=150 H=450 777-3 LOINC XR CHEST PORTABLE OR 1V - Co mpleted: 12/22/2022 14:15 LOINC: [facility] [place], [place] [address] PACS NEUROLOGY SPECIALIST REPORT Patient Name: ANTONIO DAUGHERTY MRN: Sex: : Age: [id number] M [id number] Account: Accession: Admit: StayType: [id number] 12/22/2022 E/R Ordered: Order ID: Submitted: Ordering Provider: 12/22/2022 14:08 [id number] IRIS LANDRY Completed: Technologist: Resulted: 12/22/2022 14:15 SLG 12/22/2022 14:43 Study Description: XR CHEST PORTABLE OR 1V Study Reason: Dyspnea Technique: 2D digital imaging was performed of the chest. 2 images were obtained. Comparison: Comparison is made with prior examinations. FINDINGS: MEDIASTINUM: Normal. HEART: Normal. PULMONARY VASCULATURE: Normal. LUNGS: Linear atelectasis or scarring is seen in the right midlung. No focal consolidating infiltrates are seen. Calcified granuloma are again seen in the lungs. The lungs appear hyperinflated suggesting underlying COPD. PLEURAL SPACE: No pleural effusion or pneumothorax. BONE:Within normal limits for the patient's age. OTHER FINDINGS:Normal. IMPRESSION: No acute pulmonary findings. Report Digitally Signed by Wilberto Gutierrez on 12/22/2022 02:43 PM EDT Social History Type Status Start Date End Date Code Code Syst em Smoking History Current every day smoker 991407649 SNOMED CT Smoking History Light tobacco smoker [id number] Smoking History Smoker, current status unknown 21000982 SNOMED CT Sex Male Vital Signs Vital Sign Value Unit Lynn Value Lynn Unit Date/Time Recent/Initial? Code Code System Body Mass Index 25.10 kg/m2 12/22/2022 13:47 Initial 15364 -5 LOINC Systolic Blood Pressure 174 mm[Hg] 12/22/2022 16:57 Most Recent 8480- 6 LOINC Diastolic Blood Pressure 117 mm[Hg] 12/22/2022 16:57 Most Recent 8462- 4 LOINC Systolic Blood Pressure 162 mm[Hg] 12/22/2022 13:47 Initial 8480- 6 LOINC Diastolic Blood Pressure 105 mm[Hg] 12/22/2022 13:47 Initial 8462- 4 LOINC Body Surface Area 1.94 m2 12/22/2022 13:47 Initial 3140- 1 LOINC Height 175.260 0 cm 69.00 in 12/22/2022 13:47 Initial 8302- 2 LOINC O2 Saturation 96 % 2022 15:03 Most Recent 05806 -5 LOINC O2 Saturation 98 % 2022 13:47 Initial 67307 -5 LOINC Inhaled Oxygen Flow Rate 3.00 L/min 12/22/2022 15:03 Most Recent 3151- 8 LOINC Inhaled Oxygen Flow Rate 6.00 L/min 12/22/2022 13:47 Initial 3151- 8 LOINC Pulse 105.0 /min 12/22/2022 16:57 Most Recent 8867- 4 LOINC Pulse 81.0 /min 12/22/2022 13:47 Initial 8867- 4 LOINC Respiration 18 /min 12/23/19 16:57 Most Recent 9279- 1 [facility] Respiration 22 /min 12/23/19 13:47 Initial 9279- 1 [facility] Temperature 36.7 Regina 98.1 F 12/23/19 14:07 Initial 8310- 5 [facility] Weight 77.11 kg 170.00 lbs 12/22/2022 13:47 Initial 80923 -7 [facility] Medications Medication Start Date End Date Route Frequency Dose Code Code System Medication Instructions Home Meds Pregabalin 200MG Oral Capsule 04/01/2019 07/27/2023 ORAL THREE TIMES A DAY 200 MILLIGRAMS 854480 RxNorm TAKE 200 MILLIGRAMS ORAL THREE TIMES A DAY DULoxetine HCl 60MG Oral Capsule, Delayed Release 10/22/2019 07/27/2023 ORAL DAILY 60 MILLIGRAMS 843408 RxNorm TAKE 60 MILLIGRAMS ORAL DAILY Methadone HCl 40MG Oral Tablet for Suspension 10/05/2021 07/27/2023 ORAL DAILY 132 MILLIGRAMS 569553 RxNorm TAKE 132 MILLIGRAMS ORAL DAILY Anoro Ellipta 62.5MCG-25MC G/1ACT Inhalation Powder 10/05/2021 07/27/2023 INHALA TION TWICE A DAY 1 PUFF 3787763 RxNorm 1 PUFF INHALATION TWICE A DAY SEROquel 300MG Oral Tablet 02/16/2022 12/22/2022 ORAL BEDTIME 300 MILLIGRAMS 313323 RxNorm TAKE 300 MILLIGRAMS ORAL BEDTIME Ventolin HFA 0.09MG/1Actu ation Inhalation Suspension 12/01/2022 07/27/2023 INHALA TION 1 unit(s) 592522 RxNorm 1 EACH INHALATION Zonisamide 100MG Oral Capsule 12/01/2022 07/27/2023 ORAL DAILY 200 MILLIGRAMS 535943 RxNorm TAKE 200 MILLIGRAMS ORAL DAILY guaiFENesin 600MG Oral Tablet, Extended Release 12/01/2022 07/27/2023 ORAL NEEDED TWICE DAILY 1 TABLET 348352 RxNorm TAKE 1 TABLET ORAL NEEDED TWICE DAILY FOR COUGH predniSONE 10MG Oral Tablet 12/01/2022 12/22/2022 ORAL DAILY 2 TABLET 900967 RxNorm TAKE 2 TABLET ORAL DAILY X 5 DAYS THEN 1 TAB DAILY X 5 DAYS THEN STOP Acetaminophe n 500MG Oral Tablet 12/01/2022 07/27/2023 ORAL NEEDED THREE TIMES A DAY 2 TABLET 249661 RxNorm TAKE 2 TABLET ORAL NEEDED THREE TIMES A DAY FOR PAIN Lisinopril 40MG Oral Tablet 12/01/2022 07/27/2023 ORAL DAILY 1 TABLET 594572 RxNorm TAKE 1 TABLET ORAL DAILY Flovent 0.22MG/1Actu ation Inhalation Aerosol Powder 12/01/2022 07/27/2023 INHALA TION TWICE A DAY 1 unit(s) 517096 RxNorm 1 EACH INHALATION TWICE A DAY Cefpodoxime Proxetil 200MG Oral Tablet 12/01/2022 12/22/2022 ORAL EVERY 12 HOURS 200 MILLIGRAMS 335069 RxNorm TAKE 200 MILLIGRAMS ORAL EVERY 12 HOURS Ibuprofen 600MG Oral Tablet 12/01/2022 07/27/2023 ORAL NEEDED THREE TIMES A DAY 600 MILLIGRAMS 025965 RxNorm TAKE 600 MILLIGRAMS ORAL NEEDED THREE TIMES A DAY FOR PAIN Combivent Respimat 100MCG-20MCG /1Act Inhalation [place] 12/01/2022 07/27/2023 INHALA TION NEEDED EVERY 8 HOURS 1 unit(s) 7724677 RxNorm 1 EACH INHALATION NEEDED EVERY 8 HOURS Depo-Testost erone Novaplus 200MG/1ML Intramuscula r Oil 12/01/2022 07/27/2023 INTRAM USCULA R 1 unit(s) 683970 RxNorm INJECT 1 EACH INTRAMUSCULA R predniSONE 20MG Oral Tablet 12/22/2022 04/02/2023 ORAL DAILY 1 TABLET 275483 RxNorm TAKE 3 TABLETS DAILY FOR 3 DAYS, THEN 2 TABLETS DAILY FOR 3 DAYS, THEN 1 TABLET DAILY FOR 3 DAYS Albuterol Sulfate 0.09MG/1Actu ation Inhalation Suspension 12/30/2022 07/27/2023 INHALA TION NEEDED EVERY 4 HOURS 2 PUFF 1653407 RxNorm 2 PUFF INHALATION NEEDED EVERY 4 HOURS FOR Shortness of breath Narcan 4MG/0.1ML Nasal [place] 12/30/2022 07/27/2023 NASAL NEEDED 1 SPRAY 0797160 RxNorm SPRAY 1 SPRAY NASAL NEEDED FOR OPIATE OVERDOSE Cefpodoxime Proxetil 200MG Oral Tablet 04/05/2023 06/04/2023 ORAL TWICE A DAY 1 TABLET 617688 RxNorm TAKE 1 TABLET ORAL TWICE A DAY QUEtiapine 300MG Oral Tablet 04/05/2023 07/27/2023 ORAL BEDTIME 300 MILLIGRAMS 056379 RxNorm TAKE 300 MILLIGRAMS ORAL BEDTIME Senna Plus 50MG-8.6MG Oral Tablet 04/05/2023 07/27/2023 ORAL TWICE A DAY 2 TABLET 450353 RxNorm TAKE 2 TABLET ORAL TWICE A DAY busPIRone 15MG Oral Tablet 04/05/2023 07/27/2023 ORAL THREE TIMES A DAY 15 MILLIGRAMS 643143 RxNorm TAKE 15 MILLIGRAMS ORAL THREE TIMES A DAY predniSONE 10MG Oral Tablet 04/05/2023 06/04/2023 ORAL TWICE A DAY 2 TABLET 599269 RxNorm TAKE 2 TABLET ORAL TWICE A DAY for 3 days then 2 tabs daily x 3 days then 1 tab daily x 3 days oxygen 04/05/2023 Unknown ORAL continu ous 3 LITERS RxNorm TAKE 3 LITERS ORAL continuous Milk Of Magnesia 400MG/5ML Oral Suspension 06/13/2023 07/27/2023 ORAL NEEDED DAILY 30 mL 452094 RxNorm TAKE 30 mL ORAL NEEDED DAILY predniSONE 20MG Oral Tablet 07/27/2023 10/16/2023 ORAL DAILY 2 TABLET 600429 RxNorm TAKE 2 TABLET ORAL DAILY predniSONE 20MG Oral Tablet 09/15/2023 10/16/2023 ORAL DAILY 2 TABLET 926569 RxNorm TAKE 2 TABLET ORAL DAILY LORazepam 1MG Oral Tablet 10/22/2023 Unknown ORAL NEEDED TWICE DAILY 1 MILLIGRAMS 162579 RxNorm TAKE 1 MILLIGRAMS ORAL NEEDED TWICE DAILY Linzess 145MCG Oral Capsule 10/22/2023 10/27/2023 ORAL DAILY 1 unit(s) 5916002 RxNorm TAKE 1 E ACH ORAL DAILY Lisinopril 40MG Oral Tablet 10/22/2023 Unknown ORAL DAILY 40 MILLIGRAMS 19771202 RxNorm TAKE 40 MILLIGRAMS ORAL DAILY Methadone 10MG Oral Tablet 10/22/2023 Unknown ORAL DAILY 132 MILLIGRAMS RxNorm TAKE 132 MILLIGRAMS ORAL DAILY QUEtiapine Fumarate 300MG Oral Tablet 10/22/2023 Unknown ORAL BEDTIME 300 MILLIGRAMS 459506 RxNorm TAKE 300 MILLIGRAMS ORAL BEDTIME Testosterone Cypionate 200MG/1ML Intramuscula r Oil 10/22/2023 Unknown 8222845 RxNorm As directed Ventolin HFA 0.09MG/1Actu ation Inhalation Suspension 10/22/2023 Unknown INHALA TION NEEDED EVERY 4 HOURS 2 PUFF 314814 RxNorm 2 PUFF INHALATION NEEDED EVERY 4 HOURS Acetaminophe n 500MG Oral Tablet 10/22/2023 Unknown ORAL THREE TIMES A DAY 2 TABLET 928874 RxNorm TAKE 2 TABLET ORAL THREE TIMES A DAY Ibuprofen 200MG Oral Tablet 10/22/2023 Unknown ORAL NEEDED THREE TIMES A DAY 3 TABLET 431970 RxNorm TAKE 3 TABLET ORAL NEEDED THREE TIMES A DAY predniSONE 10MG Oral Tablet 10/22/2023 12/01/2023 ORAL TWICE A DAY 2 TABLET 390678 RxNorm TAKE 2 TABLET ORAL TWICE A DAY x 3 days then 1 tab twice a day x 5 days then 1 tab daily Pregabalin 200MG Oral Capsule 10/22/2023 Unknown ORAL THREE TIMES A DAY 200 MILLIGRAMS 299275 RxNorm TAKE 200 MILLIGRAMS ORAL THREE TIMES A DAY Cefpodoxime Proxetil 200MG Oral Tablet 10/22/2023 11/28/2023 ORAL EVERY 12 HOURS 200 MILLIGRAMS 133468 RxNorm TAKE 200 MILLIGRAMS ORAL EVERY 12 HOURS Anoro Ellipta 62.5MCG-25MC G/1ACT Inhalation Powder 10/22/2023 Unknown INHALA TION DAILY 1 GRAM 2179720 RxNorm 1 GRAM INHALATION DAILY DULoxetine HCl 60MG Oral Capsule, Delayed Release 10/22/2023 Unknown ORAL DAILY 60 MILLIGRAMS 538819 RxNorm TAKE 60 MILLIGRAMS ORAL DAILY predniSONE 10MG Oral Tablet 12/01/2023 12/07/2023 ORAL DAILY 4 TABLET 938537 RxNorm TAKE 4 TABLET ORAL DAILY x 3 days then 2 tabs daily x 3 days then 1 tab daily x 7 days Cefpodoxime Proxetil 200MG Oral Tablet 12/01/2023 12/07/2023 ORAL TWICE A DAY 1 TABLET 645604 RxNorm TAKE 1 TABLET ORAL TWICE A DAY levoFLOXacin 750MG Oral Tablet 12/25/2023 Unknown ORAL DAILY 1 TABLET 940960 RxNorm TAKE 1 TABLET ORAL DAILY predniSONE 50MG Oral Tablet 12/25/2023 Unknown ORAL DAILY 1 TABLET 990799 RxNorm TAKE 1 TABLET ORAL DAILY Assessment [...] Date Status Code Code System PNEUMONIA active 503526032 SNOMED-CT POLYSUBSTANCE ABUSE active 893468420 SNOMED-CT ACUTE AND CHRONIC RESPIRATORY FAILURE WITH HYPERCAPNIA active 0534695626342 SNOMED-CT ACUTE AND CHRONIC RESPIRATORY FAILURE WITH HYPOXIA active 39829063 SNOMED-CT COPD WITH EXACERBATION active 5888749 07 SNOMED-CT ALCOHOL USE WITH WITHDRAWAL active 517954605 SNOMED-CT CHRONIC RESPIRATORY FAILURE WITH HYPOXIA 10/03/2021 resolved 06672106 SNOMED- CT OTHER SEIZURES 10/03/2021 resolved 59476921 SNOM ED-CT PULMONARY NODULE 10/03/2021 resolved 337888619 SN OMED-CT CHRONIC HEPATITIS C 10/03/2021 resolved 639984596 SNOMED-CT ANXIETY DISORDER 10/03/2021 resolved 195177932 SN OMED-CT 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 10/03/2021 resolved 916957363235554 SNOME D-CT NICOTINE DEPENDENCE 01/13/2021 resolved 93222114 SNOMED-CT VENOUS INSUFFICIENCY 10/03/2021 resolved 74961529 SNOMED-CT ALCOHOL INTOXICATION 11/26/2022 resolved 02681846 SNOMED-CT AMS 11/26/2022 resolved 940051138 SNOMED-CT HYPOKALEMIA 11/26/2022 resolved 68421304 SNOMED- CT OPIATE TOXICITY 06/04/2023 resolved 225758798 SNO MED-CT ACUTE ALCOHOL INTOXICATION 04/01/2023 resolved 1138745880 SNOMED-CT FEVER 06/04/2023 resolved 901934681 SNOMED-CT ALTERED MENTAL STATUS 06/04/2023 resolved 5691073 04 SNOMED-CT CHRONIC HEADACHE DISORDER 10/03/2021 resolved 398506878 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 094597 00 SNOMED-CT ALCOHOL DEPENDENCE WITH WITHDRAWAL 01/13/2021 resolved 54987057 SNOMED-CT HTN 10/03/2021 resolved 07696368 SNOMED-CT COPD 09/09/2021 resolved 76644656 SNOMED-CT HIGH CHOLESTEROL 09/09/2021 resolved 77267246 SN OMED-CT Allergies and Adverse Reactions Allergy Substance Reaction Severity Start Date Concern Status Code Code System PCN (penicillin) Anaphylaxis (SNOMED-CT: 01421678) Moderate Active 1808761 SNOMED-CT Plan of Treatment X-RAY 03/21/2022 MRI BRAIN W WO CONTRAST 12/06/2021 MRI BRAIN W WO CONTRAST 11/30/2021 LAB DRAW 15MIN 05/13/2021 Encounters Encounter Diagnosis Start Date Code Code Sys tem Chronic obstructive pulmonar y disease with (acute) exacerbation 12/22/2022 SNOMED-CT Personal Care Team Section Performer Name Performer Role Active Date Inactive Da te
--- OUTSIDE RECORDS SUMMARY | 2024-02-29 09:12 | XMS_ITS ---
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 Name Role Phone TALITA Marie Registered Nurse Unavailable Unavailable [facility] Unavailable BRANDY Colunga Attending Unavailable [facility] Unavailable RAMIN Walsh Primary Unavailable UNLISTED PROVIDER - REQUESTED Xhandoff Un available Immunization Immunization Date Status Additional Notes Code Code System Tdap 10/03/2021 Completed 115 CVX Tdap 01/14/2022 Completed 115 CVX Results CBC W/ DIFFERENTIAL* - Colle ct Date/Time: 04/04/2023 06:55 [facility] ID: [id number] [address] [place] [address], [address] LOINC: 33249-5 Test Value Unit Reference Range Code Code System Flag WBC 11.66 th/cmm L=5.00 H=10.00 6690-2 LOINC H NEUT % 74.7 % L=40.0 H=80.0 LYMPH % 12.1 % L=10.0 H=50.0 MONO % 9.5 % L=2.0 H=12.0 92134-2 LOINC EOS % 0.0 % L=0.0 H=8.0 BASO % 0.4 % L=0.0 H=3.0 IG % 3.3 % L=0.0 H=1.1 2514-8 LOINC H NRBC % 0.0 % L=0.0 H=0.0 60119-1 LOINC NEUT abs count 8.7 th/cmm L=1.6 H=8.4 751-8 LOINC H LYMPH abs count 1.4 th/cmm L=1.5 H=4.0 731-0 LOINC L MONO abs count 1.1 th/cmm L=0.2 H=1.0 742-7 LOINC H EOS abs count 0.0 th/cmm L=0.0 H=0.5 711-2 LOINC BASO abs count 0.1 th/cmm L=0.0 H=0.2 704-7 LOINC IG abs count 0.4 th/cmm L=0.0 H=0.1 09602-9 LOINC H NRBC abs count 0.0 mil/cmm L=0.0 H=0.0 68106-3 LOINC RBC 4.29 mil/cmm L=4.30 H=6.20 789-8 LOINC L HEMOGLOBIN 14.1 gm/dL L=13.0 H=17.0 718-7 LOINC HEMATOCRIT 43 % L=45 H=52 4544-3 LOINC L MCV 101 fL L=82 H=92 787-2 LOINC H MCH 32.9 pg L=27.0 H=31.0 785-6 LOINC H MCHC 32.6 % L=32.0 H=36.0 786-4 LOINC RDW-SD 48.0 fL L=39.0 H=49.0 788-0 LOINC PLATELET COUNT 309 th/cmm L=150 H=450 777-3 LOINC Atyp lymphs 2+ LIPASE* NEW - Collect Date/T vannessa: 04/04/2023 06:55 [facility] ID: [id number] [address] [place] [address], [id number] LOINC: 3040-3 Test Value Unit Reference Range Code Code System Flag LIPASE. 23 U/L L=16 H=77 BASIC METABOLIC PANEL (BMP) - Collect Date/Time: 04/04/2023 06:55 [facility] ID: [id number] [address] [place] [address], [address] LOINC: 83598-2 Test Value Unit Reference Range Code Code System Flag GLUCOSE 112 mg/dL L=70 H=116 2345-7 LOINC BUN 13 mg/dL L=6 H=25 3094-0 LOINC CREATININE 0.65 mg/dL L=0.67 H=1.17 2160-0 LOINC L SODIUM SERUM 144 mmol/L L=136 H=145 2951-2 LOINC POTASSIUM SERUM 3.7 mmol/L L=3.4 H=5.2 2823-3 LOINC CHLORIDE SERUM 104 mmol/L L=96 H=110 2075-0 LOINC CARBON DIOXIDE (CO2) 32 mmol/L L=22 H=34 2028-9 LOINC ANION GAP 7.6 mmol/L 91276-6 LOINC CALCIUM SERUM 8.5 mg/dL L=8.2 H=10.2 38154-5 LOINC AGE 47 years eGFR (non-Afr.Amer.) > 120 mL/min 22520-3 LOINC eGFR (Afr-[place]ese) > 120 mL/min 02401-4 LOINC CBC W/ DIFFERENTIAL* - Colle ct Date/Time: 04/02/2023 06:15 [facility] ID: [id number] [address] [place] [address], [address] LOINC: 43264-4 Test Value Unit Reference Range Code Code System Flag WBC 9.96 th/cmm L=5.00 H=10.00 6690-2 LOINC NEUT % 87.8 % L=40.0 H=80.0 H LYMPH % 5.9 % L=10.0 H=50.0 L MONO % 5.6 % L=2.0 H=12.0 42448-1 LOINC EOS % 0.0 % L=0.0 H=8.0 BASO % 0.3 % L=0.0 H=3.0 IG % 0.4 % L=0.0 H=1.1 2514-8 LOINC NRBC % 0.0 % L=0.0 H=0.0 29041-2 LOINC NEUT abs count 8.7 th/cmm L=1.6 H=8.4 751-8 LOINC H LYMPH abs count 0.6 th/cmm L=1.5 H=4.0 731-0 LOINC L MONO abs count 0.6 th/cmm L=0.2 H=1.0 742-7 LOINC EOS abs count 0.0 th/cmm L=0.0 H=0.5 711-2 LOINC BASO abs count 0.0 th/cmm L=0.0 H=0.2 704-7 LOINC IG abs count 0.0 th/cmm L=0.0 H=0.1 18673-1 LOINC NRBC abs count 0.0 mil/cmm L=0.0 H=0.0 14277-9 LOINC RBC 4.31 mil/cmm L=4.30 H=6.20 789-8 LOINC HEMOGLOBIN 14.3 gm/dL L=13.0 H=17.0 718-7 LOINC HEMATOCRIT 44 % L=45 H=52 4544-3 LOINC L MCV 102 fL L=82 H=92 787-2 LOINC H MCH 33.2 pg L=27.0 H=31.0 785-6 LOINC H MCHC 32.6 % L=32.0 H=36.0 786-4 LOINC RDW-SD 47.6 fL L=39.0 H=49.0 788-0 LOINC PLATELET COUNT 250 th/cmm L=150 H=450 777-3 LOINC BASIC METABOLIC PANEL (BMP) - Collect Date/Time: 04/02/2023 06:15 [facility] ID: [id number] [address] [place] [address], [address] LOINC: 98179-5 Test Value Unit Reference Range Code Code System Flag GLUCOSE 145 mg/dL L=70 H=116 2345-7 LOINC H BUN 13 mg/dL L=6 H=25 3094-0 LOINC CREATININE 0.70 mg/dL L=0.67 H=1.17 2160-0 LOINC SODIUM SERUM 143 mmol/L L=136 H=145 2951-2 LOINC POTASSIUM SERUM 3.2 mmol/L L=3.4 H=5.2 2823-3 LOINC L CHLORIDE SERUM 103 mmol/L L=96 H=110 2075-0 LOINC CARBON DIOXIDE (CO2) 33 mmol/L L=22 H=34 2028-9 LOINC ANION GAP 6.7 mmol/L 12750-5 LOINC CALCIUM SERUM 8.5 mg/dL L=8.2 H=10.2 26780-6 LOINC AGE 47 years eGFR (non-Afr.Amer.) 120 mL/min 95956-7 LOINC eGFR (Afr-[place]ese) > 120 mL/min 76946-5 LOINC ORDER VENOUS BLOOD GAS* - Co llect Date/Time: 04/01/2023 17:15 [facility] ID: [id number] [address] [place], [place], [id number] LOINC: Test Value Unit Reference Range Code Code System Flag Specimen type: VENOUS pH (venous) 7.29 L=7.38 H=7.46 2746-6 LOINC L PCO2 (venous) 61.2 mm Hg L=41.0 H=51.0 2703-7 LOINC H PO2 (venous) L=30 H=50 HCO3 29 mmol/L L=22 H=26 1960-4 LOINC H TCO2 (venous) 31 mmol/L L=22 H=28 3533-7 LOINC H BASE EXCESS (venous) 3 mmol/L L=-2 H=3 3097-3 LOINC Assist vent. Resp. Rate /min. Temp. CBC W/ DIFFERENTIAL* - Colle ct Date/Time: 04/01/2023 14:20 [facility] ID: [id number] [address] [place] [address], [address] LOINC: 67185-2 Test Value Unit Reference Range Code Code System Flag WBC 15.58 th/cmm L=5.00 H=10.00 6690-2 LOINC H NEUT % 87.0 % L=40.0 H=80.0 H LYMPH % 4.4 % L=10.0 H=50.0 L MONO % 7.6 % L=2.0 H=12.0 20005-9 LOINC EOS % 0.1 % L=0.0 H=8.0 BASO % 0.4 % L=0.0 H=3.0 IG % 0.5 % L=0.0 H=1.1 2514-8 LOINC NRBC % 0.0 % L=0.0 H=0.0 75530-6 LOINC NEUT abs count 13.5 th/cmm L=1.6 H=8.4 751-8 LOINC H LYMPH abs count 0.7 th/cmm L=1.5 H=4.0 731-0 LOINC L MONO abs count 1.2 th/cmm L=0.2 H=1.0 742-7 LOINC H EOS abs count 0.0 th/cmm L=0.0 H=0.5 711-2 LOINC BASO abs count 0.1 th/cmm L=0.0 H=0.2 704-7 LOINC IG abs count 0.1 th/cmm L=0.0 H=0.1 07286-8 LOINC NRBC abs count 0.0 mil/cmm L=0.0 H=0.0 75801-8 LOINC RBC 4.20 mil/cmm L=4.30 H=6.20 789-8 LOINC L HEMOGLOBIN 13.9 gm/dL L=13.0 H=17.0 718-7 LOINC HEMATOCRIT 43 % L=45 H=52 4544-3 LOINC L MCV 101 fL L=82 H=92 787-2 LOINC H MCH 33.1 pg L=27.0 H=31.0 785-6 LOINC H MCHC 32.7 % L=32.0 H=36.0 786-4 LOINC RDW-SD 47.5 fL L=39.0 H=49.0 788-0 LOINC PLATELET COUNT 226 th/cmm L=150 H=450 777-3 LOINC ALCOHOL (ETHANOL)* - Collect Date/Time: 04/01/2023 14:20 [facility] ID: [id number] [address] [place], [place], [address] LOINC: 83288-7 Test Value Unit Reference Range Code Code System Flag ALCOHOL (ETHANOL) < 3 mg/dL 78548-1 LOINC BNP (PRO-B NATRIURETIC PEPTI DE) - Collect Date/Time: 04/01/2023 14:20 [facility] ID: [id number] [address] [place], [place], [address] LOINC: 67712-4 Test Value Unit Reference Range Code Code System Flag NT-proBNP 199.0 pg/mL L=0.0 H=125 78645-5 LOINC H COMPREHENSIVE METABOLIC PANE L (CMP) - Collect Date/Time: 04/01/2023 14:20 [facility] ID: [id number] [address] [place], [place], [address] LOINC: 44948-8 Test Value Unit Reference Range Code Code System Flag GLUCOSE 111 mg/dL L=70 H=116 2345-7 LOINC BUN 11 mg/dL L=6 H=25 3094-0 LOINC CREATININE 0.81 mg/dL L=0.67 H=1.17 2160-0 LOINC SODIUM SERUM 138 mmol/L L=136 H=145 2951-2 LOINC POTASSIUM SERUM 3.4 mmol/L L=3.4 H=5.2 2823-3 LOINC CHLORIDE SERUM 98 mmol/L L=96 H=110 2075-0 LOINC CARBON DIOXIDE (CO2) 32 mmol/L L=22 H=34 2028-9 LOINC ANION GAP 8.1 mmol/L 66236-0 LOINC CALCIUM SERUM 8.4 mg/dL L=8.2 H=10.2 54600-1 LOINC BILIRUBIN TOTAL 0.4 mg/dL L=0.0 H=1.3 1975-2 LOINC ALK. PHOS. 85 U/L L=46 H=116 6768-6 LOINC SGOT (AST) 27 U/L L=15 H=37 1920-8 LOINC SGPT (ALT) 21 U/L L=12 H=78 1742-6 LOINC TOTAL PROTEIN 6.9 gm/dL L=6.0 H=8.0 2885-2 LOINC ALBUMIN 2.8 gm/dL L=3.4 H=5.0 1751-7 LOINC L AGE 47 years eGFR (non-Afr.Amer.) 101 mL/min 62195-4 LOINC eGFR (Afr-[place]ese) > 120 mL/min 53023-5 LOINC TROPONIN HIGH SENSITIVITY* - Collect Date/Time: 04/01/2023 14:20 [facility] ID: [id number] [address] [place], [place], [address] LOINC: 91492-9 Test Value Unit Reference Range Code Code System Flag TROPONIN HS 4.4 pg/mL L=0.0 H=60.4 Specimen seq. [facility] COVID FLU RSV GENEXPE RT - Collect Date/Time: 04/01/2023 13:33 [facility] ID: [id number] [address] [place] [address], [id number] LOINC: 94164-7 Test Value Unit Reference Range Code Code System Flag COVID NEGATIVE Normal: Negative 58004-9 LOINC INFLUENZA A DNA NEGATIVE Normal: Negative 06653-2 LOINC INFLUENZA B DNA NEGATIVE Normal: Negative 23181-0 LOINC RSV DNA NEGATIVE Normal: Negative 31563-[address] HEAD WO CONTRAST - Comple rachana: 04/04/2023 12:25 LOINC: [facility] [place], [place] [address] P[employer]Y [employer]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 FINDINGS: There are no skull fractures. There is no fluid in the visualized paranasal sinuses. There is no evidence of intracranial hemorrhage, mass effect, or shift of midline structures. There are no extra-axial fluid collections. The ventricles are not enlarged or shifted and there is no blood within the ventricular system nor within the basal cisterns. IMPRESSION: No acute intracranial findings on this noninfused CT scan of the brain. 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 COMPARISON: Prior chest x-ray 12/30/2022. Also chest x-ray 05/12/2022. FINDINGS: Single AP view Heart size remains normal. The mediastinum is not widened. Interstitial disease again noted throughout both lung henriquez and there is also now superimposed confluent infiltrate bilaterally, significantly more than previous. Involves most lobes bilaterally with relative sparing of the lung apices. There are no obvious pleural effusions. IMPRESSION: Prominent bilateral infiltrates superimposed upon interstitial disease. No obvious pleural effusions. Report Digitally Signed by Juanito Romero on 04/01/2023 02:13 PM EST Social History Type Status Start Date End Date Code Code Syst em Smoking History Current every day smoker 665529937 SNOMED CT Smoking History Light tobacco smoker [id number] Smoking History Smoker, current status unknown 58034164 SNOMED CT Sex Male Vital Signs Vital Sign Value Unit Pender Value Pender Unit Date/Time Recent/Initial? Code Code System Body Mass Index 26.89 kg/m2 04/01/2023 13:56 Most Recent 23948 -5 LOINC Body Mass Index 26.89 kg/m2 04/01/2023 13:49 Initial 07242 -5 LOINC Systolic Blood Pressure 159 mm[Hg] 04/05/2023 08:32 Most Recent 8480- 6 LOINC Diastolic Blood Pressure 94 mm[Hg] 04/05/2023 08:32 Most Recent 8462- 4 LOINC Systolic Blood Pressure 160 mm[Hg] 04/01/2023 13:56 Initial 8480- 6 LOINC Diastolic Blood Pressure 148 mm[Hg] 04/01/2023 13:56 Initial 8462- 4 LOINC Body Surface Area 2.01 m2 04/01/2023 13:56 Most Recent 3140- 1 LOINC Body Surface Area 2.01 m2 04/01/2023 13:49 Initial 3140- 1 LOINC Height 175.260 0 cm 69.00 in 04/01/2023 13:56 Most Recent 8302- 2 LOINC Height 175.260 0 cm 69.00 in 04/01/2023 13:49 Initial 8302- 2 LOINC O2 Saturation 95 % 2022 08:32 Most Recent 73509 -5 LOINC O2 Saturation 96 % 2022 13:56 Initial 04010 -5 LOINC Inhaled Oxygen Flow Rate 3.00 L/min 04/05/2023 08:10 Most Recent 3151- 8 LOINC Inhaled Oxygen Flow Rate 6.00 L/min 04/01/2023 14:00 Initial 3151- 8 LOINC Pulse 57.0 /min 04/05/2023 08:32 Most Recent 8867- 4 LOINC Pulse 96.0 /min 04/01/2023 13:56 Initial 8867- 4 LOINC Respiration 16 /min 04/05/20 08:32 Most Recent 9279- 1 LOINC Respiration 13 /min 04/01/20 13:56 Initial 9279- 1 LOINC Temperature 36.5 Regina 97.7 F 04/05/20 08:32 Most Recent 8310- 5 LOINC Temperature 38.5 Regina 101.3 F 04/01/20 13:56 Initial 8310- 5 LOINC Weight 82.60 kg 182.10 lbs 04/01/2023 13:56 Most Recent 89959 -7 LOINC Weight 82.60 kg 182.10 lbs 04/01/2023 13:49 Initial 15337 -7 LOINC Medications Medication Start Date End Date Route Frequency Dose Code Code System Medication Instructions Home Meds Pregabalin 200MG Oral Capsule 04/01/2019 07/27/2023 ORAL THREE TIMES A DAY 200 MILLIGRAMS 177782 RxNorm TAKE 200 MILLIGRAMS ORAL THREE TIMES A DAY DULoxetine HCl 60MG Oral Capsule, Delayed Release 10/22/2019 07/27/2023 ORAL DAILY 60 MILLIGRAMS 079017 RxNorm TAKE 60 MILLIGRAMS ORAL DAILY Anoro Ellipta 62.5MCG-25MC G/1ACT Inhalation Powder 10/05/2021 07/27/2023 INHALA TION TWICE A DAY 1 PUFF 3779171 RxNorm 1 PUFF INHALATION TWICE A DAY Methadone HCl 40MG Oral Tablet for Suspension 10/05/2021 07/27/2023 ORAL DAILY 132 MILLIGRAMS 804765 RxNorm TAKE 132 MILLIGRAMS ORAL DAILY Ibuprofen 600MG Oral Tablet 12/01/2022 07/27/2023 ORAL NEEDED THREE TIMES A DAY 600 MILLIGRAMS 830536 RxNorm TAKE 600 MILLIGRAMS ORAL NEEDED THREE TIMES A DAY FOR PAIN Combivent Respimat 100MCG-20MCG /1Act Inhalation [place] 12/01/2022 07/27/2023 INHALA TION NEEDED EVERY 8 HOURS 1 unit(s) 4984397 RxNorm 1 EACH INHALATION NEEDED EVERY 8 HOURS Depo-Testost erone Novaplus 200MG/1ML Intramuscula r Oil 12/01/2022 07/27/2023 INTRAM USCULA R 1 unit(s) 819554 RxNorm INJECT 1 EACH INTRAMUSCULA R Flovent 0.22MG/1Actu ation Inhalation Aerosol Powder 12/01/2022 07/27/2023 INHALA TION TWICE A DAY 1 unit(s) 738163 RxNorm 1 EACH INHALATION TWICE A DAY Ventolin HFA 0.09MG/1Actu ation Inhalation Suspension 12/01/2022 07/27/2023 INHALA TION 1 unit(s) 380222 RxNorm 1 EACH INHALATION Zonisamide 100MG Oral Capsule 12/01/2022 07/27/2023 ORAL DAILY 200 MILLIGRAMS 333582 RxNorm TAKE 200 MILLIGRAMS ORAL DAILY guaiFENesin 600MG Oral Tablet, Extended Release 12/01/2022 07/27/2023 ORAL NEEDED TWICE DAILY 1 TABLET 686091 RxNorm TAKE 1 TABLET ORAL NEEDED TWICE DAILY FOR COUGH Acetaminophe n 500MG Oral Tablet 12/01/2022 07/27/2023 ORAL NEEDED THREE TIMES A DAY 2 TABLET 314183 RxNorm TAKE 2 TABLET ORAL NEEDED THREE TIMES A DAY FOR PAIN Lisinopril 40MG Oral Tablet 12/01/2022 07/27/2023 ORAL DAILY 1 TABLET 300974 RxNorm TAKE 1 TABLET ORAL DAILY predniSONE 20MG Oral Tablet 12/22/2022 04/02/2023 ORAL DAILY 1 TABLET 001638 RxNorm TAKE 3 TABLETS DAILY FOR 3 DAYS, THEN 2 TABLETS DAILY FOR 3 DAYS, THEN 1 TABLET DAILY FOR 3 DAYS Albuterol Sulfate 0.09MG/1Actu ation Inhalation Suspension 12/30/2022 07/27/2023 INHALA TION NEEDED EVERY 4 HOURS 2 PUFF 0882568 RxNorm 2 PUFF INHALATION NEEDED EVERY 4 HOURS FOR Shortness of breath Narcan 4MG/0.1ML Nasal [place] 12/30/2022 07/27/2023 NASAL NEEDED 1 SPRAY 0737121 RxNorm SPRAY 1 SPRAY NASAL NEEDED FOR OPIATE OVERDOSE QUEtiapine 300MG Oral Tablet 04/05/2023 07/27/2023 ORAL BEDTIME 300 MILLIGRAMS 913276 RxNorm TAKE 300 MILLIGRAMS ORAL BEDTIME Senna Plus 50MG-8.6MG Oral Tablet 04/05/2023 07/27/2023 ORAL TWICE A DAY 2 TABLET 812306 RxNorm TAKE 2 TABLET ORAL TWICE A DAY busPIRone 15MG Oral Tablet 04/05/2023 07/27/2023 ORAL THREE TIMES A DAY 15 MILLIGRAMS 732227 RxNorm TAKE 15 MILLIGRAMS ORAL THREE TIMES A DAY Cefpodoxime Proxetil 200MG Oral Tablet 04/05/2023 06/04/2023 ORAL TWICE A DAY 1 TABLET 667925 RxNorm TAKE 1 TABLET ORAL TWICE A DAY predniSONE 10MG Oral Tablet 04/05/2023 06/04/2023 ORAL TWICE A DAY 2 TABLET 531529 RxNorm TAKE 2 TABLET ORAL TWICE A DAY for 3 days then 2 tabs daily x 3 days then 1 tab daily x 3 days oxygen 04/05/2023 Unknown ORAL continu ous 3 LITERS RxNorm TAKE 3 LITERS ORAL continuous Milk Of Magnesia 400MG/5ML Oral Suspension 06/13/2023 07/27/2023 ORAL NEEDED DAILY 30 mL 821825 RxNorm TAKE 30 mL ORAL NEEDED DAILY predniSONE 20MG Oral Tablet 07/27/2023 10/16/2023 ORAL DAILY 2 TABLET 225490 RxNorm TAKE 2 TABLET ORAL DAILY predniSONE 20MG Oral Tablet 09/15/2023 10/16/2023 ORAL DAILY 2 TABLET 623727 RxNorm TAKE 2 TABLET ORAL DAILY Cefpodoxime Proxetil 200MG Oral Tablet 10/22/2023 11/28/2023 ORAL EVERY 12 HOURS 200 MILLIGRAMS 866717 RxNorm TAKE 200 MILLIGRAMS ORAL EVERY 12 HOURS Anoro Ellipta 62.5MCG-25MC G/1ACT Inhalation Powder 10/22/2023 Unknown INHALA TION DAILY 1 GRAM 7931293 RxNorm 1 GRAM INHALATION DAILY DULoxetine HCl 60MG Oral Capsule, Delayed Release 10/22/2023 Unknown ORAL DAILY 60 MILLIGRAMS 566615 RxNorm TAKE 60 MILLIGRAMS ORAL DAILY LORazepam 1MG Oral Tablet 10/22/2023 Unknown ORAL NEEDED TWICE DAILY 1 MILLIGRAMS RxNorm TAKE 1 MILLIGRAMS ORAL NEEDED TWICE DAILY Linzess 145MCG Oral Capsule 10/22/2023 10/27/2023 ORAL DAILY 1 unit(s) 3323497 RxNorm TAKE 1 E ACH ORAL DAILY Lisinopril 40MG Oral Tablet 10/22/2023 Unknown ORAL DAILY 40 MILLIGRAMS 19771202 RxNorm TAKE 40 MILLIGRAMS ORAL DAILY Methadone 10MG Oral Tablet 10/22/2023 Unknown ORAL DAILY 132 MILLIGRAMS RxNorm TAKE 132 MILLIGRAMS ORAL DAILY Pregabalin 200MG Oral Capsule 10/22/2023 Unknown ORAL THREE TIMES A DAY 200 MILLIGRAMS 137535 RxNorm TAKE 200 MILLIGRAMS ORAL THREE TIMES A DAY QUEtiapine Fumarate 300MG Oral Tablet 10/22/2023 Unknown ORAL BEDTIME 300 MILLIGRAMS 451382 RxNorm TAKE 300 MILLIGRAMS ORAL BEDTIME Testosterone Cypionate 200MG/1ML Intramuscula r Oil 10/22/2023 Unknown 2974697 RxNorm As directed Ventolin HFA 0.09MG/1Actu ation Inhalation Suspension 10/22/2023 Unknown INHALA TION NEEDED EVERY 4 HOURS 2 PUFF 675219 RxNorm 2 PUFF INHALATION NEEDED EVERY 4 HOURS Acetaminophe n 500MG Oral Tablet 10/22/2023 Unknown ORAL THREE TIMES A DAY 2 TABLET 107616 RxNorm TAKE 2 TABLET ORAL THREE TIMES A DAY Ibuprofen 200MG Oral Tablet 10/22/2023 Unknown ORAL NEEDED THREE TIMES A DAY 3 TABLET 016620 RxNorm TAKE 3 TABLET ORAL NEEDED THREE [...] 12/07/2023 ORAL TWICE A DAY 1 TABLET 456672 RxNorm TAKE 1 TABLET ORAL TWICE A DAY levoFLOXacin 750MG Oral Tablet 12/25/2023 Unknown ORAL DAILY 1 TABLET 289444 RxNorm TAKE 1 TABLET ORAL DAILY predniSONE 50MG Oral Tablet 12/25/2023 Unknown ORAL DAILY 1 TABLET 169099 RxNorm TAKE 1 TABLET ORAL DAILY Assessment [...] Date Status Code Code System PNEUMONIA active 285235795 SNOMED-CT POLYSUBSTANCE ABUSE active 633307040 SNOMED-CT ACUTE AND CHRONIC RESPIRATORY FAILURE WITH HYPERCAPNIA active 0039889202581 SNOMED-CT ACUTE AND CHRONIC RESPIRATORY FAILURE WITH HYPOXIA active 03314965 SNOMED-CT COPD WITH EXACERBATION active 9977215 07 SNOMED-CT ALCOHOL USE WITH WITHDRAWAL active 028785698 SNOMED-CT CHRONIC RESPIRATORY FAILURE WITH HYPOXIA 10/03/2021 resolved 46552086 SNOMED- CT OTHER SEIZURES 10/03/2021 resolved 51176511 SNOM ED-CT PULMONARY NODULE 10/03/2021 resolved 484398525 SN OMED-CT CHRONIC HEPATITIS C 10/03/2021 resolved 205167991 SNOMED-CT ANXIETY DISORDER 10/03/2021 resolved 549455385 SN OMED-CT 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 10/03/2021 resolved 467375493639511 SNOME D-CT NICOTINE DEPENDENCE 01/13/2021 resolved 99578593 SNOMED-CT VENOUS INSUFFICIENCY 10/03/2021 resolved 73402315 SNOMED-CT ALCOHOL INTOXICATION 11/26/2022 resolved 67977128 SNOMED-CT AMS 11/26/2022 resolved 749480242 SNOMED-CT HYPOKALEMIA 11/26/2022 resolved 34286918 SNOMED- CT OPIATE TOXICITY 06/04/2023 resolved 582238815 SNO MED-CT ACUTE ALCOHOL INTOXICATION 04/01/2023 resolved 3776011900 SNOMED-CT FEVER 06/04/2023 resolved 596193456 SNOMED-CT ALTERED MENTAL STATUS 06/04/2023 resolved 0356621 04 SNOMED-CT CHRONIC HEADACHE DISORDER 10/03/2021 resolved 384611410 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 [id number] 00 SNOMED-CT ALCOHOL DEPENDENCE WITH WITHDRAWAL 01/13/2021 resolved [id number] SNOMED-CT HTN 10/03/2021 resolved [id number] SNOMED-CT COPD 09/09/2021 resolved [id number] SNOMED-CT HIGH CHOLESTEROL 09/09/2021 resolved [id number] SN OMED-CT Allergies and Adverse Reactions Allergy Substance Reaction Severity Start Date Concern Status Code Code System PCN (penicillin) Anaphylaxis (SNOMED-CT: 50859158) Moderate Active [id number] SNOMED-CT Plan of Treatment X-RAY 03/21/2022 MRI BRAIN W WO CONTRAST 12/06/2021 MRI BRAIN W WO CONTRAST 11/30/2021 LAB DRAW 15MIN 05/13/2021 Encounters Encounter Diagnosis Start Date Code Code Sys tem Pneumonia, unspecified organism 04/01/2023 SNOMED-CT Personal Care Team Section Performer Name Performer Role Active Date Inactive Da te Discharge Summary Notes [facility] 04/08/2023 14:32 All Demographics Patient Name Age Sex Visit Number Admission Date/Time Attending Physician Date of Service Room and Bed Emergency Contact GARRET BARROS 1975 47 years Male [id number] 04/01/2023 15:50 TALHA BRANDY 04/01/2023 [id number] BRANDON MOSCOSO - [id number] 04/05/2023 17:16 Discharge Date: 04/05/2023 Admission Diagnosis: Pneumonia Acute COPD exacerbation Acute on chronic respiratory failure with hypoxemia Chronic pain Discharge Diagnosis: Pneumonia Acute COPD exacerbation Acute on chronic respiratory failure with hypoxemia Chronic pain Primary Care Physician: Primary Care Physician: RAMIN Walsh Consulting Physician(s): Procedures: CT scan of the head which revealed no acute abnormality Recommendations: Discharge to home Continue supplemental oxygen Follow-up with Dr. Castaneda Discharge Medications: Discharge Meds List Acetaminophen 500MG Oral Tablet, TAKE 2 TABLET ORAL NEEDED THREE TIMES A DAY FOR PAIN Albuterol Sulfate 0.09MG/1Actuation Inhalation Suspension, 2 PUFF INHALATION NEEDED EVERY 4 HOURS FOR Shortness of breath Anoro Ellipta 62.5MCG-25MCG/1ACT Inhalation Powder, 1 PUFF INHALATION TWICE A DAY busPIRone 15MG Oral Tablet, TAKE 15 MILLIGRAMS ORAL THREE TIMES A DAY Cefpodoxime Proxetil 200MG Oral Tablet, TAKE 1 TABLET ORAL TWICE A DAY Combivent Respimat 100MCG-20MCG/1Act Inhalation [place], 1 EACH INHALATION NEEDED EVERY 8 HOURS [...] for Suspension, TAKE 132 MILLIGRAMS ORAL DAILY Narcan 4MG/0.1ML Nasal [place], SPRAY 1 SPRAY NASAL NEEDED FOR OPIATE OVERDOSE oxygen, TAKE 3 LITERS ORAL continuous predniSONE 10MG Oral Tablet, TAKE 2 TABLET ORAL TWICE A DAY for 3 days then 2 tabs daily x 3 days then 1 tab daily x 3 days Pregabalin 200MG Oral Capsule, TAKE 200 MILLIGRAMS ORAL THREE TIMES A DAY QUEtiapine 300MG Oral Tablet, TAKE 300 MILLIGRAMS ORAL BEDTIME Senna Plus 50MG- 8.6MG Oral Tablet, TAKE 2 TABLET ORAL TWICE A DAY Ventolin HFA 0.09MG/1Actuation Inhalation Suspension, 1 EACH INHALATION Zonisamide 100MG Oral Capsule, TAKE 200 MILLIGRAMS ORAL DAILY History of Present Illness Garret Barros is a 47-year-old male with a medical history significant for COPD with chronic respiratory failure on 3 L supplemental O2 continuous, history of nonepileptic seizures, chronic pain syndrome, history of polysubstance use disorder on methadone, hepatitis C status post treatment now without viral load, presenting today with shortness of breath, cough x3 days. Patient is a limited historian due to somnolence, he does rouse to verbal stimuli but keeps his eyes closed for the majority of our interview and answers in just a few words. Over the past 3 to 4 days the patient endorses a productive cough with shortness of breath, pleuritic chest pain, a couple episodes of vomiting, diarrhea, abdominal pain, dizziness. He states that he has been using 3 L via nasal cannula at home. He uses albuterol inhaler occasionally, not every day. He does not use a nebulizer. Patient denies syncope, lower extremity edema. In the emergency department the patient is febrile to 101.3F, heart rate in the 90s, blood pressure stable, O2 sats reported by EMS in the 60s on room air. In the emergency department the patient was briefly on a nonrebreather and then weaned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
--- OUTSIDE RECORDS SUMMARY | 2024-02-29 09:12 | XMS_ITS ---
Author Organization Unknown Address [address] [place] [address] [phone] Phone Care Team Providers Care Head Of Sales Promotion Name Role Phone Unavailable [employer] Unavailable BRANDY Colunga MD Attending Unavailable JARON PACHECO MD ER Unavailable RAMIN Walsh Primary Unavailable Results CBC W/ DIFFERENTIAL - Collec t Date/Time: 01/14/2021 06:28 [facility] ID: [id number] [address] [place] [address], [address] LOINC: 78532-9 Test Value Unit Reference Range Code Code System Flag WBC 8.11 th/cmm L=5.00 H=10.00 6690-2 LOINC NEUT % 81.6 % L=40.0 H=80.0 H LYMPH % 11.7 % L=10.0 H=50.0 MONO % 6.5 % L=2.0 H=12.0 30461-5 LOINC EOS % 0.0 % L=0.0 H=8.0 BASO % 0.1 % L=0.0 H=3.0 IG % 0.1 % L=0.0 H=1.1 2514-8 LOINC NRBC % 0.0 % L=0.0 H=0.0 78574-4 LOINC NEUT abs count 6.6 th/cmm L=1.6 H=8.4 751-8 LOINC LYMPH abs count 1.0 th/cmm L=1.5 H=4.0 731-0 LOINC L MONO abs count 0.5 th/cmm L=0.2 H=1.0 742-7 LOINC EOS abs count 0.0 th/cmm L=0.0 H=0.5 711-2 LOINC BASO abs count 0.0 th/cmm L=0.0 H=0.2 704-7 LOINC IG abs count 0.0 th/cmm L=0.0 H=0.1 72069-8 LOINC NRBC abs count 0.0 mil/cmm L=0.0 H=0.0 92198-6 LOINC RBC 5.25 mil/cmm L=4.30 H=6.20 789-8 LOINC HEMOGLOBIN 16.6 gm/dL L=13.0 H=17.0 718-7 LOINC HEMATOCRIT 51 % L=45 H=52 4544-3 LOINC MCV 96 fL L=82 H=92 787-2 LOINC H MCH 31.6 pg L=27.0 H=31.0 785-6 LOINC H MCHC 32.8 % L=32.0 H=36.0 786-4 LOINC RDW-SD 44.8 fL L=39.0 H=49.0 788-0 LOINC PLATELET COUNT 178 th/cmm L=150 H=450 777-3 LOINC BASIC METABOLIC PANEL (BMP) - Collect Date/Time: 01/14/2021 06:28 [facility] ID: [id number] [address] [place], [place], [address] LOINC: 36411-2 Test Value Unit Reference Range Code Code System Flag GLUCOSE 107 mg/dL L=70 H=116 2345-7 LOINC BUN 12 mg/dL L=6 H=25 3094-0 LOINC CREATININE 0.70 mg/dL L=0.67 H=1.17 2160-0 LOINC SODIUM SERUM 144 mmol/L L=136 H=145 2951-2 LOINC POTASSIUM SERUM 4.5 mmol/L L=3.4 H=5.2 2823-3 LOINC CHLORIDE SERUM 107 mmol/L L=96 H=110 2075-0 LOINC CARBON DIOXIDE (CO2) 28 mmol/L L=22 H=34 2028-9 LOINC ANION GAP 8.8 mmol/L 62502-6 LOINC CALCIUM SERUM 8.9 mg/dL L=8.2 H=10.2 78572-4 LOINC AGE 45 years eGFR (non-Afr.Amer.) > 120 mL/min 64910-2 LOINC eGFR (Afr-Filipino) > 120 mL/min 52868-7 LOINC TROPONIN-I ADM. - Collect Da te/Time: 01/13/2021 12:21 [facility] ID: [id number] [address] [place] [address], [address] LOINC: 94979-7 Test Value Unit Reference Range Code Code System Flag TROPONIN-I < 0.017 ng/mL L=0.000 H=0.060 75169-8 LOINC MAGNESIUM SERUM - Collect Da te/Time: 01/13/2021 12:21 [facility] ID: [id number] [address] [place] [address], [address] LOINC: 18955-0 Test Value Unit Reference Range Code Code System Flag MAGNESIUM 2.3 mg/dL L=1.8 H=2.4 74322-[address] [facility] COVID GENEXPERT - Col lect Date/Time: 01/13/2021 12:21 [facility] ID: [id number] [address] [place] [address], [address] LOINC: 48865-1 Test Value Unit Reference Range Code Code System Flag COVID NEGATIVE Normal: Negative 05805-9 LOINC CBC W/ DIFFERENTIAL - Collec t Date/Time: 01/13/2021 12:21 [facility] ID: [id number] [address] [place] [address], [address] LOINC: 60957-3 Test Value Unit Reference Range Code Code System Flag WBC 7.46 th/cmm L=5.00 H=10.00 6690-2 LOINC NEUT % 43.6 % L=40.0 H=80.0 LYMPH % 39.0 % L=10.0 H=50.0 MONO % 10.9 % L=2.0 H=12.0 47783-3 LOINC EOS % 5.4 % L=0.0 H=8.0 BASO % 0.8 % L=0.0 H=3.0 IG % 0.3 % L=0.0 H=1.1 2514-8 LOINC NRBC % 0.0 % L=0.0 H=0.0 50797-2 LOINC NEUT abs count 3.3 th/cmm L=1.6 H=8.4 751-8 LOINC LYMPH abs count 2.9 th/cmm L=1.5 H=4.0 731-0 LOINC MONO abs count 0.8 th/cmm L=0.2 H=1.0 742-7 LOINC EOS abs count 0.4 th/cmm L=0.0 H=0.5 711-2 LOINC BASO abs count 0.1 th/cmm L=0.0 H=0.2 704-7 LOINC IG abs count 0.0 th/cmm L=0.0 H=0.1 13616-0 LOINC NRBC abs count 0.0 mil/cmm L=0.0 H=0.0 25969-4 LOINC RBC 5.05 mil/cmm L=4.30 H=6.20 789-8 LOINC HEMOGLOBIN 16.3 gm/dL L=13.0 H=17.0 718-7 LOINC HEMATOCRIT 49 % L=45 H=52 4544-3 LOINC MCV 98 fL L=82 H=92 787-2 LOINC H MCH 32.3 pg L=27.0 H=31.0 785-6 LOINC H MCHC 33.0 % L=32.0 H=36.0 786-4 LOINC RDW-SD 46.0 fL L=39.0 H=49.0 788-0 LOINC PLATELET COUNT 187 th/cmm L=150 H=450 777-3 LOINC BASIC METABOLIC PANEL (BMP) - Collect Date/Time: 01/13/2021 12:21 [facility] ID: [id number] [address] [place], [place], [address] LOINC: 01237-0 Test Value Unit Reference Range Code Code System Flag GLUCOSE 115 mg/dL L=70 H=116 2345-7 LOINC BUN 9 mg/dL L=6 H=25 3094-0 LOINC CREATININE 0.78 mg/dL L=0.67 H=1.17 2160-0 LOINC SODIUM SERUM 146 mmol/L L=136 H=145 2951-2 LOINC H POTASSIUM SERUM 4.2 mmol/L L=3.4 H=5.2 2823-3 LOINC CHLORIDE SERUM 108 mmol/L L=96 H=110 2075-0 LOINC CARBON DIOXIDE (CO2) 33 mmol/L L=22 H=34 2028-9 LOINC ANION GAP 4.8 mmol/L 85857-5 LOINC CALCIUM SERUM 8.7 mg/dL L=8.2 H=10.2 21752-5 LOINC AGE 45 years eGFR (non-Afr.Amer.) 107 mL/min 46152-8 LOINC eGFR (Afr-Filipino) > 120 mL/min 02745-0 LOINC CHEST PA AND LATERAL 2V - Co mpleted: 01/13/2021 14:10 LOINC: AP AND LATERAL CHEST: Comparison is made with 04/07/2020. The heart size is normal. The lungs show linear scarring at the lung bases, as well as emphysematous changes in the upper lobes. no definite superimposed infiltrate is seen. There is no evidence of pulmonary edema or effusion. There is no pneumothorax or thoracic compression fracture. IMPRESSION: Emphysematous changes and bibasilar scarring. No acute abnormality. Dictated by: CEO DAISY RODRIGUEZ M.D. RADIOLOGIST Transcribed by: CARA 01/13/2114:57 [id number] Electronically Reviewed and Signed By: DAISY RODRIGUEZ M.D. RADIOLOGIST 01/13/21 15:23 Copy for: JARON PACHECO MD via [employer] Social History Type Status Start Date End Date Code Code Syst em Smoking History Current every day smoker 227104254 SNOMED CT Sex Male Vital Signs Vital Sign Value Unit [place] Value [place] Unit Date/Time Recent/Initial? Code Code System Body Mass Index 28.28 kg/m2 01/13/2021 23:54 Initial 60738 -5 LOINC Systolic Blood Pressure 135 mm[Hg] 01/15/2021 07:33 Most Recent 8480- 6 [facility] Diastolic Blood Pressure 93 mm[Hg] 01/15/2021 07:33 Most Recent 8462- 4 [facility] Systolic Blood Pressure 155 mm[Hg] 01/13/2021 17:30 Initial 8480- 6 [facility] Diastolic Blood Pressure 70 mm[Hg] 01/13/2021 17:30 Initial 8462- 4 [facility] Body Surface Area 2.06 m2 01/13/2021 23:54 Initial 3140- 1 [facility] Height 175.260 0 cm 69.00 in 01/13/2021 23:54 Initial 8302- 2 [facility] O2 Saturation 93 % 2020 07:33 Most Recent 54236 -5 [facility] O2 Saturation 88 % 2020 17:30 Initial 73761 -5 [facility] Inhaled Oxygen Flow Rate 2.00 L/min 01/15/2021 06:18 Most Recent 3151- 8 [facility] Inhaled Oxygen Flow Rate 3.00 L/min 01/13/2021 17:30 Initial 3151- 8 [facility] Pulse 55.0 /min 01/15/2021 07:33 Most Recent 8867- 4 [facility] Pulse 80.0 /min 01/13/2021 17:30 Initial 8867- 4 [facility] Respiration 18 /min 01/16/20 21 07:33 Most Recent 9279- 1 [facility] Respiration 20 /min 01/14/20 17:30 Initial 9279- 1 [facility] Temperature 37.1 [place] 98.8 F 01/16/20 21 07:33 Most Recent 8310- 5 [facility] Temperature 37.0 Regina 98.6 F 01/14/20 17:30 Initial 8310- 5 [facility] Weight 86.86 kg 191.50 lbs 01/13/2021 23:54 Initial 23039 -7 [facility] Medications Medication Start Date End Date Route Frequency Dose Code Code System Medication Instructions Home Meds Mapap 325MG Oral Tablet 03/07/2018 10/03/2021 BY MOUTH NEEDED EVERY 4 HOURS 650 MILLIGRAMS 561926 RxNorm TAKE 650 MILLIGRAMS BY MOUTH NEEDED EVERY 4 HOURS Lisinopri l 20MG Oral Tablet 04/01/2019 12/01/2022 ORAL DAILY 20 MILLIGRAMS 469812 RxNorm TAKE 20 MILLIGRAMS ORAL DAILY Ipratropi um Carrabelle-A lbuterol Sulfate 0.5MG/3ML -3MG/3ML Inhalatio n Solution 04/01/2019 10/03/2021 INHALATI ON FOUR TIMES A DAY 1 unit(s) 4167610 RxNorm 1 EACH INHALATION FOUR TIMES A DAY ProAir HFA 0.09MG/1A ctuation Inhalatio n Suspensio n 04/01/2019 05/12/2022 INHALATI ON NEEDED FOUR TIMES A DAY 2 unit(s) 270801 RxNorm 2 EACH INHALATION NEEDED FOUR TIMES A DAY Pregabali n 200MG Oral Capsule 04/01/2019 07/27/2023 ORAL THREE TIMES A DAY 200 MILLIGRAMS 620806 RxNorm TAKE 200 MILLIGRAMS ORAL THREE TIMES A DAY Ibuprofen 600MG Oral Tablet 10/22/2019 01/13/2021 ORAL NEEDED THREE TIMES A DAY 600 MILLIGRAMS 668979 RxNorm TAKE 600 MILLIGRAMS ORAL NEEDED THREE TIMES A DAY DULoxetin e HCl 60MG Oral Capsule, Delayed Release 10/22/2019 07/27/2023 ORAL DAILY 60 MILLIGRAMS 629474 RxNorm TAKE 60 MILLIGRAMS ORAL DAILY QUEtiapin e Fumarate 300MG Oral Tablet 10/22/2019 05/12/2022 ORAL BEDTIME 300 MILLIGRAMS 466974 RxNorm TAKE 300 MILLIGRAMS ORAL BEDTIME Pantopraz ole Sodium 40MG Oral Tablet, Delayed Release 11/10/2019 01/13/2021 ORAL DAILY 1 TABLET 623693 RxNorm TAKE 1 TABLET ORAL DAILY LORazepam 1MG Oral Tablet 11/25/2019 01/13/2021 ORAL TWICE A DAY 1 TABLET 323896 RxNorm TAKE 1 TABLET ORAL TWICE A DAY Nicoderm CQ 14MG/24HR Transderm al Patch, Extended Release 01/15/2021 02/12/2022 TRANSDER MAL DAILY 1 unit(s) RxNorm APPLY 1 EACH TRANSDERMAL DAILY Azithromy jennifer 250MG Oral Tablet 01/15/2021 10/03/2021 ORAL DAILY 250 MILLIGRAMS 814059 RxNorm TAKE 250 MILLIGRAMS ORAL DAILY Anoro Ellipta 62.5MCG-2 5MCG/1ACT Inhalatio n Powder 01/15/2021 10/03/2021 INHALATI ON 1 unit(s) 8636063 RxNorm 1 EACH INHALATION Flovent 0.22MG/Ac tuation Inhalatio n Aerosol Powder 01/15/2021 10/03/2021 INHALATI ON TWICE A DAY 2 PUFF 541980 RxNorm 2 PUFF INHALATION TWICE A DAY Ibuprofen 200MG Oral Tablet 01/15/2021 11/25/2022 ORAL NEEDED THREE TIMES A DAY 600 MILLIGRAMS 510724 RxNorm TAKE 600 MILLIGRAMS ORAL NEEDED THREE TIMES A DAY LORazepam 0.5MG Oral Tablet 01/15/2021 05/12/2022 ORAL NEEDED TWICE DAILY 0.5 MILLIGRAMS 655510 RxNorm TAKE 0.5 MILLIGRAMS ORAL NEEDED TWICE DAILY Methadone HCl 10MG/1ML Oral Solution 01/15/2021 10/03/2021 ORAL DAILY 13.2 mL 925834 RxNorm TAKE 13.2 mL ORAL DAILY Cefpodoxi me Proxetil 200MG Oral Tablet 01/15/2021 10/03/2021 ORAL TWICE A DAY 1 TABLET 849958 RxNorm TAKE 1 TABLET ORAL TWICE A DAY predniSON E 10MG Oral Tablet 01/15/2021 10/03/2021 ORAL DAILY 2 TABLET 239308 RxNorm TAKE 2 TABLET ORAL DAILY x 7 days then 1 tab daily x 7 days then stop Cefpodoxi me Proxetil 200MG Oral Tablet 01/15/2021 10/03/2021 ORAL TWICE A DAY 1 TABLET 796672 RxNorm TAKE 1 TABLET ORAL TWICE A DAY predniSON E 20MG Oral Tablet 10/05/2021 11/14/2021 ORAL DAILY WITH FOOD 20 MILLIGRAMS 327113 RxNorm TAKE 20 MILLIGRAMS ORAL DAILY WITH FOOD Albuterol Sulfate 0.083% Inhalatio n Solution 10/05/2021 11/25/2022 INHALATI ON NEEDED EVERY 4 HOURS 1 unit(s) 696093 RxNorm 1 EACH INHALATION NEEDED EVERY 4 HOURS Anoro Ellipta 62.5MCG-2 5MCG/1ACT Inhalatio n Powder 10/05/2021 07/27/2023 INHALATI ON TWICE A DAY 1 PUFF 7700785 RxNorm 1 PUFF INHALATION TWICE A DAY Methadone HCl 40MG Oral Tablet for Suspensio n 10/05/2021 07/27/2023 ORAL DAILY 132 MILLIGRAMS 195702 RxNorm TAKE 132 MILLIGRAMS ORAL DAILY Cephalexi n 500MG Oral Capsule 10/05/2021 11/14/2021 ORAL THREE TIMES A DAY 1 CAPSULE 901136 RxNorm TAKE 1 CAPSULE ORAL THREE TIMES A DAY Doxycycli ne 100MG Oral Capsule 12/10/2021 12/21/2021 ORAL TWICE A DAY 1 CAPSULE 5960928 RxNorm TAKE 1 CAPSULE ORAL TWICE A DAY Zonisamid e 100MG Oral Capsule 12/22/2021 05/12/2022 ORAL TWICE A DAY 100 MILLIGRAMS 813212 RxNorm TAKE 100 MILLIGRAMS ORAL TWICE A DAY Keflex 500MG Oral Capsule 01/14/2022 02/12/2022 ORAL THREE TIMES A DAY 1 CAPSULE 485859 RxNorm TAKE 1 CAPSULE ORAL THREE TIMES A DAY predniSON E 10MG Oral Tablet 02/16/2022 11/25/2022 ORAL THREE TIMES A DAY WITH FOOD 10 MILLIGRAMS 014651 RxNorm TAKE 10 MILLIGRAMS ORAL THREE TIMES A DAY WITH FOOD SEROquel 300MG Oral Tablet 02/16/2022 12/22/2022 ORAL BEDTIME 300 MILLIGRAMS 838373 RxNorm TAKE 300 MILLIGRAMS ORAL BEDTIME Cephalexi n 500MG Oral Capsule 02/16/2022 02/16/2022 ORAL THREE TIMES A DAY 1 CAPSULE 674100 RxNorm TAKE 1 CAPSULE ORAL THREE TIMES A DAY Cephalexi n 500MG Oral Capsule 02/16/2022 05/12/2022 ORAL THREE TIMES A DAY 1 CAPSULE 556220 RxNorm TAKE 1 CAPSULE ORAL THREE TIMES A DAY MiraLAX 17GM/1Dos e Oral Powder for Solution 05/12/2022 11/25/2022 ORAL DAILY 17 GRAM 414226 RxNorm TAKE 17 G PAT ORAL DAILY Ventolin HFA 0.09MG/1A ctuation Inhalatio n Suspensio n 12/01/2022 07/27/2023 INHALATI ON 1 unit(s) 371169 RxNorm 1 EACH INHALATION Cefpodoxi me Proxetil 200MG Oral Tablet 12/01/2022 12/22/2022 ORAL EVERY 12 HOURS 200 MILLIGRAMS 518793 RxNorm TAKE 200 MILLIGRAMS ORAL EVERY 12 HOURS Ibuprofen 600MG Oral Tablet 12/01/2022 07/27/2023 ORAL NEEDED THREE TIMES A DAY 600 MILLIGRAMS 928738 RxNorm TAKE 600 MILLIGRAMS ORAL NEEDED THREE TIMES A DAY FOR PAIN Combivent Respimat 100MCG-20 MCG/1Act Inhalatio n [place] 12/01/2022 07/27/2023 INHALATI ON NEEDED EVERY 8 HOURS 1 unit(s) 2369887 RxNorm 1 EACH INHALATION NEEDED EVERY 8 HOURS Depo-Test osterone Novaplus 200MG/1ML Intramusc ular Oil 12/01/2022 07/27/2023 INTRAMUS CULAR 1 unit(s) 090498 RxNorm INJECT 1 EACH INTRAMUSCULA R Flovent 0.22MG/1A ctuation Inhalatio n Aerosol Powder 12/01/2022 07/27/2023 INHALATI ON TWICE A DAY 1 unit(s) 582118 RxNorm 1 EACH INHALATION TWICE A DAY Zonisamid e 100MG Oral Capsule 12/01/2022 07/27/2023 ORAL DAILY 200 MILLIGRAMS 182483 RxNorm TAKE 200 MILLIGRAMS ORAL DAILY guaiFENes in 600MG Oral Tablet, Extended Release 12/01/2022 12/01/2022 ORAL NEEDED TWICE DAILY 1 TABLET 273303 RxNorm TAKE 1 TABLET ORAL NEEDED TWICE DAILY FOR COUGH predniSON E 10MG Oral Tablet 12/01/2022 12/01/2022 ORAL DAILY 2 TABLET 516329 RxNorm TAKE 2 TABLET ORAL DAILY X 5 DAYS THEN 1 TAB DAILY X 5 DAYS THEN STOP guaiFENes in 600MG Oral Tablet, Extended Release 12/01/2022 07/27/2023 ORAL NEEDED TWICE DAILY 1 TABLET 244292 RxNorm TAKE 1 TABLET ORAL NEEDED TWICE DAILY FOR COUGH predniSON E 10MG Oral Tablet 12/01/2022 12/22/2022 ORAL DAILY 2 TABLET 184578 RxNorm TAKE 2 TABLET ORAL DAILY X 5 DAYS THEN 1 TAB DAILY X 5 DAYS THEN STOP Acetamino phen 500MG Oral Tablet 12/01/2022 07/27/2023 ORAL NEEDED THREE TIMES A DAY 2 TABLET 488953 RxNorm TAKE 2 TABLET ORAL NEEDED THREE TIMES A DAY FOR PAIN Lisinopri l 40MG Oral Tablet 12/01/2022 07/27/2023 ORAL DAILY 1 TABLET 159701 RxNorm TAKE 1 TABLET ORAL DAILY predniSON E 20MG Oral Tablet 12/22/2022 04/02/2023 ORAL DAILY 1 TABLET 683365 RxNorm TAKE 3 TABLETS DAILY FOR 3 DAYS, THEN 2 TABLETS DAILY FOR 3 DAYS, THEN 1 TABLET DAILY FOR 3 DAYS Narcan 4MG/0.1ML Nasal [place] 12/30/2022 07/27/2023 NASAL NEEDED 1 SPRAY 8451148 RxNorm SPRAY 1 SPRAY NASAL NEEDED FOR OPIATE OVERDOSE Albuterol Sulfate 0.09MG/1A ctuation Inhalatio n Suspensio n 12/30/2022 07/27/2023 INHALATI ON NEEDED EVERY 4 HOURS 2 PUFF 3423142 RxNorm 2 PUFF INHALATION NEEDED EVERY 4 HOURS FOR Shortness of breath Cefpodoxi me Proxetil 200MG Oral Tablet 04/05/2023 06/04/2023 ORAL TWICE A DAY 1 TABLET 876065 RxNorm TAKE 1 TABLET ORAL TWICE A DAY QUEtiapin e 300MG Oral Tablet 04/05/2023 07/27/2023 ORAL BEDTIME 300 MILLIGRAMS 167608 RxNorm TAKE 300 MILLIGRAMS ORAL BEDTIME predniSON E 10MG Oral Tablet 04/05/2023 06/04/2023 ORAL TWICE A DAY 2 TABLET 954290 RxNorm TAKE 2 TABLET ORAL TWICE A DAY for 3 days then 2 tabs daily x 3 days then 1 tab daily x 3 days Senna Plus 50MG-8.6M G Oral Tablet 04/05/2023 07/27/2023 ORAL TWICE A DAY 2 TABLET 529103 RxNorm TAKE 2 TABLET ORAL TWICE A DAY busPIRone 15MG Oral Tablet 04/05/2023 07/27/2023 ORAL THREE TIMES A DAY 15 MILLIGRAMS 760787 RxNorm TAKE 15 MILLIGRAMS ORAL THREE TIMES A DAY oxygen 04/05/2023 Unknown ORAL continuo us 3 LITERS RxNorm TAKE 3 LITERS ORAL continuous Milk Of Magnesia 400MG/5ML Oral Suspensio n 06/13/2023 07/27/2023 ORAL NEEDED DAILY 30 mL 255002 RxNorm TAKE 30 mL ORAL NEEDED DAILY predniSON E 20MG Oral Tablet 07/27/2023 10/16/2023 ORAL DAILY 2 TABLET 973868 RxNorm TAKE 2 TABLET ORAL DAILY predniSON E 20MG Oral Tablet 09/15/2023 10/16/2023 ORAL DAILY 2 TABLET 537466 RxNorm TAKE 2 TABLET ORAL DAILY Ibuprofen 200MG Oral Tablet 10/22/2023 Unknown ORAL NEEDED THREE TIMES A DAY 3 TABLET 905269 RxNorm TAKE 3 TABLET ORAL NEEDED THREE TIMES A DAY predniSON E 10MG Oral Tablet 10/22/2023 12/01/2023 ORAL TWICE A DAY 2 TABLET 234956 RxNorm TAKE 2 TABLET ORAL TWICE A DAY x 3 days then 1 tab twice a day x 5 days then 1 tab daily LORazepam 1MG Oral Tablet 10/22/2023 Unknown ORAL NEEDED TWICE DAILY 1 MILLIGRAMS RxNorm TAKE 1 MILLIGRAMS ORAL NEEDED TWICE DAILY Cefpodoxi me Proxetil 200MG Oral Tablet 10/22/2023 11/28/2023 ORAL EVERY 12 HOURS 200 MILLIGRAMS 783252 RxNorm TAKE 200 MILLIGRAMS ORAL EVERY 12 HOURS Anoro Ellipta 62.5MCG-2 5MCG/1ACT Inhalatio n Powder 10/22/2023 Unknown INHALATI ON DAILY 1 GRAM 8353043 RxNorm 1 GRAM INHALATION DAILY DULoxetin e HCl 60MG Oral Capsule, Delayed Release 10/22/2023 Unknown ORAL DAILY 60 MILLIGRAMS 832943 RxNorm TAKE 60 MILLIGRAMS ORAL DAILY Linzess 145MCG Oral Capsule 10/22/2023 10/27/2023 ORAL DAILY 1 unit(s) 3177757 RxNorm TAKE 1 E ACH ORAL DAILY Lisinopri l 40MG Oral Tablet 10/22/2023 Unknown ORAL DAILY 40 MILLIGRAMS 218065 RxNorm TAKE 40 MILLIGRAMS ORAL DAILY Methadone 10MG Oral Tablet 10/22/2023 Unknown ORAL DAILY 132 MILLIGRAMS RxNorm TAKE 132 MILLIGRAMS ORAL DAILY Pregabali n 200MG Oral Capsule 10/22/2023 Unknown ORAL THREE TIMES A DAY 200 MILLIGRAMS 119398 RxNorm TAKE 200 MILLIGRAMS ORAL THREE TIMES A DAY QUEtiapin e Fumarate 300MG Oral Tablet 10/22/2023 Unknown ORAL BEDTIME 300 MILLIGRAMS 018057 RxNorm TAKE 300 MILLIGRAMS ORAL BEDTIME Testoster one Cypionate 200MG/1ML Intramusc ular Oil 10/22/2023 Unknown 6423075 RxNorm As directed Ventolin HFA 0.09MG/1A ctuation Inhalatio n Suspensio n 10/22/2023 Unknown INHALATI ON NEEDED EVERY 4 HOURS 2 PUFF 124071 RxNorm 2 PUFF INHALATION NEEDED EVERY 4 HOURS Acetamino phen 500MG Oral Tablet 10/22/2023 Unknown ORAL THREE TIMES A DAY 2 TABLET 826833 RxNorm TAKE 2 TABLET ORAL THREE TIMES A DAY predniSON E 10MG Oral Tablet 12/01/2023 12/07/2023 ORAL DAILY 4 TABLET 915104 RxNorm TAKE 4 TABLET ORAL DAILY x 3 days then 2 tabs daily x 3 days then 1 tab daily x 7 days Cefpodoxi me Proxetil 200MG Oral Tablet 12/01/2023 12/07/2023 ORAL TWICE A DAY 1 TABLET 733533 RxNorm TAKE 1 TABLET ORAL TWICE A DAY levoFLOXa jennifer 750MG Oral Tablet 12/25/2023 Unknown ORAL DAILY 1 TABLET 070581 RxNorm TAKE 1 TABLET ORAL DAILY predniSON E 50MG Oral Tablet 12/25/2023 Unknown ORAL DAILY 1 TABLET 560004 RxNorm TAKE 1 TABLET ORAL DAILY Assessment [...] Date Status Code Code System PNEUMONIA active 294843047 SNOMED-CT POLYSUBSTANCE ABUSE active 588054540 SNOMED-CT ACUTE AND CHRONIC RESPIRATORY FAILURE WITH HYPERCAPNIA active 3009707399619 SNOMED-CT ACUTE AND CHRONIC RESPIRATORY FAILURE WITH HYPOXIA active 68420615 SNOMED-CT COPD WITH EXACERBATION active 0771266 07 SNOMED-CT ALCOHOL USE WITH WITHDRAWAL active 305254638 SNOMED-CT CHRONIC RESPIRATORY FAILURE WITH HYPOXIA 10/03/2021 resolved 42162609 SNOMED- CT OTHER SEIZURES 10/03/2021 resolved 72108686 SNOM ED-CT PULMONARY NODULE 10/03/2021 resolved 417560328 SN OMED-CT CHRONIC HEPATITIS C 10/03/2021 resolved 229912769 SNOMED-CT ANXIETY DISORDER 10/03/2021 resolved 220952240 SN OMED-CT 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 10/03/2021 resolved 117447935075556 SNOME D-CT NICOTINE DEPENDENCE 01/13/2021 resolved 06032484 SNOMED-CT VENOUS INSUFFICIENCY 10/03/2021 resolved 37863821 SNOMED-CT ALCOHOL INTOXICATION 11/26/2022 resolved 41037931 SNOMED-CT AMS 11/26/2022 resolved 059694878 SNOMED-CT HYPOKALEMIA 11/26/2022 resolved 51281949 SNOMED- CT OPIATE TOXICITY 06/04/2023 resolved 708235234 SNO MED-CT ACUTE ALCOHOL INTOXICATION 04/01/2023 resolved 1435002767 SNOMED-CT FEVER 06/04/2023 resolved 016622625 SNOMED-CT ALTERED MENTAL STATUS 06/04/2023 resolved 7885330 04 SNOMED-CT CHRONIC HEADACHE DISORDER 10/03/2021 resolved 678761558 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 005212 00 SNOMED-CT ALCOHOL DEPENDENCE WITH WITHDRAWAL 01/13/2021 resolved 96284335 SNOMED-CT HTN 10/03/2021 resolved 18659487 SNOMED-CT COPD 09/09/2021 resolved 75482280 SNOMED-CT HIGH CHOLESTEROL 09/09/2021 resolved 56885641 SN OMED-CT Allergies and Adverse Reactions Allergy Substance Reaction Severity Start Date Concern Status Code Code System PCN (penicillin) Anaphylaxis (SNOMED-CT: 65802287) Moderate Active 6570568 SNOMED-CT Plan of Treatment X-RAY 03/21/2022 MRI BRAIN W WO CONTRAST 12/06/2021 MRI BRAIN W WO CONTRAST 11/30/2021 LAB DRAW 15MIN 05/13/2021 Encounters Encounter Diagnosis Start Date Code Code Sys tem Chronic obstructive pulmonar y disease with (acute) exacerbation 01/13/2021 SNOMED-CT Personal Care Team Section Performer Name Performer Role Active Date Inactive Da te History and Physical Notes Progress Notes
--- OUTSIDE RECORDS SUMMARY | 2024-02-29 09:12 | XMS_ITS ---
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 Name Role Phone BRANDY Colunga Attending Unavailable Immunization Immunization Date Status Additional Notes Code Code System Tdap 10/03/2021 Completed 115 CVX Tdap 01/14/2022 Completed 115 CVX Social History Type Status Start Date End Date Code Code Syst em Smoking History Current every day smoker [id number] SNOMED CT Smoking History Light tobacco smoker [id number] Smoking History Smoker, current status unknown 41239506 SNOMED CT Sex Male Medications Medication Start Date End Date Route Frequency Dose Code Code System Medication Instructions Home Meds Pregabalin 200MG Oral Capsule 04/01/2019 07/27/2023 ORAL THREE TIMES A DAY 200 MILLIGRAMS 772723 RxNorm TAKE 200 MILLIGRAMS ORAL THREE TIMES A DAY DULoxetine HCl 60MG Oral Capsule, Delayed Release 10/22/2019 07/27/2023 ORAL DAILY 60 MILLIGRAMS 600656 RxNorm TAKE 60 MILLIGRAMS ORAL DAILY Anoro Ellipta 62.5MCG-25MC G/1ACT Inhalation Powder 10/05/2021 07/27/2023 INHALA TION TWICE A DAY 1 PUFF 8263412 RxNorm 1 PUFF INHALATION TWICE A DAY Methadone HCl 40MG Oral Tablet for Suspension 10/05/2021 07/27/2023 ORAL DAILY 132 MILLIGRAMS 131058 RxNorm TAKE 132 MILLIGRAMS ORAL DAILY Ibuprofen 600MG Oral Tablet 12/01/2022 07/27/2023 ORAL NEEDED THREE TIMES A DAY 600 MILLIGRAMS 625568 RxNorm TAKE 600 MILLIGRAMS ORAL NEEDED THREE TIMES A DAY FOR PAIN Combivent Respimat 100MCG-20MCG /1Act Inhalation [place] 12/01/2022 07/27/2023 INHALA TION NEEDED EVERY 8 HOURS 1 unit(s) 8718389 RxNorm 1 EACH INHALATION NEEDED EVERY 8 HOURS Depo-Testost erone Novaplus 200MG/1ML Intramuscula r Oil 12/01/2022 07/27/2023 INTRAM USCULA R 1 unit(s) 612543 RxNorm INJECT 1 EACH INTRAMUSCULA R Flovent 0.22MG/1Actu ation Inhalation Aerosol Powder 12/01/2022 07/27/2023 INHALA TION TWICE A DAY 1 unit(s) 347226 RxNorm 1 EACH INHALATION TWICE A DAY Ventolin HFA 0.09MG/1Actu ation Inhalation Suspension 12/01/2022 07/27/2023 INHALA TION 1 unit(s) 280105 RxNorm 1 EACH INHALATION Zonisamide 100MG Oral Capsule 12/01/2022 07/27/2023 ORAL DAILY 200 MILLIGRAMS 387956 RxNorm TAKE 200 MILLIGRAMS ORAL DAILY guaiFENesin 600MG Oral Tablet, Extended Release 12/01/2022 07/27/2023 ORAL NEEDED TWICE DAILY 1 TABLET 759503 RxNorm TAKE 1 TABLET ORAL NEEDED TWICE DAILY FOR COUGH Acetaminophe n 500MG Oral Tablet 12/01/2022 07/27/2023 ORAL NEEDED THREE TIMES A DAY 2 TABLET 016857 RxNorm TAKE 2 TABLET ORAL NEEDED THREE TIMES A DAY FOR PAIN Lisinopril 40MG Oral Tablet 12/01/2022 07/27/2023 ORAL DAILY 1 TABLET 572497 RxNorm TAKE 1 TABLET ORAL DAILY predniSONE 20MG Oral Tablet 12/22/2022 04/02/2023 ORAL DAILY 1 TABLET 672552 RxNorm TAKE 3 TABLETS DAILY FOR 3 DAYS, THEN 2 TABLETS DAILY FOR 3 DAYS, THEN 1 TABLET DAILY FOR 3 DAYS Albuterol Sulfate 0.09MG/1Actu ation Inhalation Suspension 12/30/2022 07/27/2023 INHALA TION NEEDED EVERY 4 HOURS 2 PUFF 3081659 RxNorm 2 PUFF INHALATION NEEDED EVERY 4 HOURS FOR Shortness of breath Narcan 4MG/0.1ML Nasal [place] 12/30/2022 07/27/2023 NASAL NEEDED 1 SPRAY 2419157 RxNorm SPRAY 1 SPRAY NASAL NEEDED FOR OPIATE OVERDOSE QUEtiapine 300MG Oral Tablet 04/05/2023 07/27/2023 ORAL BEDTIME 300 MILLIGRAMS 607164 RxNorm TAKE 300 MILLIGRAMS ORAL BEDTIME Senna Plus 50MG-8.6MG Oral Tablet 04/05/2023 07/27/2023 ORAL TWICE A DAY 2 TABLET 835419 RxNorm TAKE 2 TABLET ORAL TWICE A DAY busPIRone 15MG Oral Tablet 04/05/2023 07/27/2023 ORAL THREE TIMES A DAY 15 MILLIGRAMS 761956 RxNorm TAKE 15 MILLIGRAMS ORAL THREE TIMES A DAY Cefpodoxime Proxetil 200MG Oral Tablet 04/05/2023 06/04/2023 ORAL TWICE A DAY 1 TABLET 068101 RxNorm TAKE 1 TABLET ORAL TWICE A DAY predniSONE 10MG Oral Tablet 04/05/2023 06/04/2023 ORAL TWICE A DAY 2 TABLET 949838 RxNorm TAKE 2 TABLET ORAL TWICE A DAY for 3 days then 2 tabs daily x 3 days then 1 tab daily x 3 days oxygen 04/05/2023 Unknown ORAL continu ous 3 LITERS RxNorm TAKE 3 LITERS ORAL continuous Milk Of Magnesia 400MG/5ML Oral Suspension 06/13/2023 07/27/2023 ORAL NEEDED DAILY 30 mL 006546 RxNorm TAKE 30 mL ORAL NEEDED DAILY predniSONE 20MG Oral Tablet 07/27/2023 10/16/2023 ORAL DAILY 2 TABLET 322806 RxNorm TAKE 2 TABLET ORAL DAILY predniSONE 20MG Oral Tablet 09/15/2023 10/16/2023 ORAL DAILY 2 TABLET 682629 RxNorm TAKE 2 TABLET ORAL DAILY Cefpodoxime Proxetil 200MG Oral Tablet 10/22/2023 11/28/2023 ORAL EVERY 12 HOURS 200 MILLIGRAMS 034302 RxNorm TAKE 200 MILLIGRAMS ORAL EVERY 12 HOURS Anoro Ellipta 62.5MCG-25MC G/1ACT Inhalation Powder 10/22/2023 Unknown INHALA TION DAILY 1 GRAM 4198888 RxNorm 1 GRAM INHALATION DAILY DULoxetine HCl 60MG Oral Capsule, Delayed Release 10/22/2023 Unknown ORAL DAILY 60 MILLIGRAMS 179021 RxNorm TAKE 60 MILLIGRAMS ORAL DAILY LORazepam 1MG Oral Tablet 10/22/2023 Unknown ORAL NEEDED TWICE DAILY 1 MILLIGRAMS 708886 RxNorm TAKE 1 MILLIGRAMS ORAL NEEDED TWICE DAILY Linzess 145MCG Oral Capsule 10/22/2023 10/27/2023 ORAL DAILY 1 unit(s) 1981309 RxNorm TAKE 1 E ACH ORAL DAILY Lisinopril 40MG Oral Tablet 10/22/2023 Unknown ORAL DAILY 40 MILLIGRAMS 19771202 RxNorm TAKE 40 MILLIGRAMS ORAL DAILY Methadone 10MG Oral Tablet 10/22/2023 Unknown ORAL DAILY 132 MILLIGRAMS RxNorm TAKE 132 MILLIGRAMS ORAL DAILY Pregabalin 200MG Oral Capsule 10/22/2023 Unknown ORAL THREE TIMES A DAY 200 MILLIGRAMS 427852 RxNorm TAKE 200 MILLIGRAMS ORAL THREE TIMES A DAY QUEtiapine Fumarate 300MG Oral Tablet 10/22/2023 Unknown ORAL BEDTIME 300 MILLIGRAMS 849987 RxNorm TAKE 300 MILLIGRAMS ORAL BEDTIME Testosterone Cypionate 200MG/1ML Intramuscula r Oil 10/22/2023 Unknown 9835471 RxNorm As directed Ventolin HFA 0.09MG/1Actu ation Inhalation Suspension 10/22/2023 Unknown INHALA TION NEEDED EVERY 4 HOURS 2 PUFF 008677 RxNorm 2 PUFF INHALATION NEEDED EVERY 4 HOURS Acetaminophe n 500MG Oral Tablet 10/22/2023 Unknown ORAL THREE TIMES A DAY 2 TABLET 092780 RxNorm TAKE 2 TABLET ORAL THREE TIMES A DAY Ibuprofen 200MG Oral Tablet 10/22/2023 Unknown ORAL NEEDED THREE TIMES A DAY 3 TABLET 551873 RxNorm TAKE 3 TABLET ORAL NEEDED THREE TIMES A DAY predniSONE 10MG Oral Tablet 10/22/2023 12/01/2023 ORAL TWICE A DAY 2 TABLET 893775 RxNorm TAKE 2 TABLET ORAL TWICE A DAY x 3 days then 1 tab twice a day x 5 days then 1 tab daily predniSONE 10MG Oral Tablet 12/01/2023 12/07/2023 ORAL DAILY 4 TABLET 278328 RxNorm TAKE 4 TABLET ORAL DAILY x 3 days then 2 tabs daily x 3 days then 1 tab daily x 7 days Cefpodoxime Proxetil 200MG Oral Tablet 12/01/2023 12/07/2023 ORAL TWICE A DAY 1 TABLET 809554 RxNorm TAKE 1 TABLET ORAL TWICE A DAY levoFLOXacin 750MG Oral Tablet 12/25/2023 Unknown ORAL DAILY 1 TABLET 120665 RxNorm TAKE 1 TABLET ORAL DAILY predniSONE 50MG Oral Tablet 12/25/2023 Unknown ORAL DAILY 1 TABLET 006475 RxNorm TAKE 1 TABLET ORAL DAILY Assessment [...] Date Status Code Code System PNEUMONIA active 258023972 SNOMED-CT POLYSUBSTANCE ABUSE active 946036032 SNOMED-CT ACUTE AND CHRONIC RESPIRATORY FAILURE WITH HYPERCAPNIA active 1455309492481 SNOMED-CT ACUTE AND CHRONIC RESPIRATORY FAILURE WITH HYPOXIA active 60546663 SNOMED-CT COPD WITH EXACERBATION active 1543411 07 SNOMED-CT ALCOHOL USE WITH WITHDRAWAL active 985785938 SNOMED-CT CHRONIC RESPIRATORY FAILURE WITH HYPOXIA 10/03/2021 resolved 11174391 SNOMED- CT OTHER SEIZURES 10/03/2021 resolved 49432577 SNOM ED-CT PULMONARY NODULE 10/03/2021 resolved 557916061 SN OMED-CT CHRONIC HEPATITIS C 10/03/2021 resolved 989311017 SNOMED-CT ANXIETY DISORDER 10/03/2021 resolved 573485418 SN OMED-CT 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 10/03/2021 resolved [id number] SNOME D-CT NICOTINE DEPENDENCE 01/13/2021 resolved 54093258 SNOMED-CT VENOUS INSUFFICIENCY 10/03/2021 resolved 74961996 SNOMED-CT ALCOHOL INTOXICATION 11/26/2022 resolved 40415551 SNOMED-CT AMS 11/26/2022 resolved 280333776 SNOMED-CT HYPOKALEMIA 11/26/2022 resolved 94820822 SNOMED- CT OPIATE TOXICITY 06/04/2023 resolved 975680599 SNO MED-CT ACUTE ALCOHOL INTOXICATION 04/01/2023 resolved 9416008431 SNOMED-CT FEVER 06/04/2023 resolved 325080565 SNOMED-CT ALTERED MENTAL STATUS 06/04/2023 resolved 0903609 04 SNOMED-CT CHRONIC HEADACHE DISORDER 10/03/2021 resolved 629361905 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 156827 00 SNOMED-CT ALCOHOL DEPENDENCE WITH WITHDRAWAL 01/13/2021 resolved 54424597 SNOMED-CT HTN 10/03/2021 resolved 49180315 SNOMED-CT COPD 09/09/2021 resolved 73204801 SNOMED-CT HIGH CHOLESTEROL 09/09/2021 resolved 62150090 SN OMED-CT Allergies and Adverse Reactions Allergy Substance Reaction Severity Start Date Concern Status Code Code System PCN (penicillin) Anaphylaxis (SNOMED-CT: 07165915) Moderate Active 4313149 SNOMED-CT Plan of Treatment X-RAY 03/21/2022 MRI BRAIN W WO CONTRAST 12/06/2021 MRI BRAIN W WO CONTRAST 11/30/2021 LAB DRAW 15MIN 05/13/2021 Encounters Encounter Diagnosis Start Date Code Code Sys tem Pneumonia, unspecified organism 04/01/2023 SNOMED-CT Personal Care Team Section Performer Name Performer Role Active Date Inactive Da elias
--- OUTSIDE RECORDS SUMMARY | 2024-02-29 09:12 | XMS_ITS ---
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 Name Role Phone JARON PACHECO MD Attending Unavailable Social History Type Status Start Date End Date Code Code Syst em Smoking History Current every day smoker 826732506 SNOMED CT Sex Male Medications Medication Start Date End Date Route Frequency Dose Code Code System Medication Instructions Home Meds Mapap 325MG Oral Tablet 03/07/2018 10/03/2021 BY MOUTH NEEDED EVERY 4 HOURS 650 MILLIGRAMS 977546 RxNorm TAKE 650 MILLIGRAMS BY MOUTH NEEDED EVERY 4 HOURS Lisinopri l 20MG Oral Tablet 04/01/2019 12/01/2022 ORAL DAILY 20 MILLIGRAMS 935416 RxNorm TAKE 20 MILLIGRAMS ORAL DAILY Ipratropi um [place]-A lbuterol Sulfate 0.5MG/3ML -3MG/3ML Inhalatio n Solution 04/01/2019 10/03/2021 INHALATI ON FOUR TIMES A DAY 1 unit(s) 8363645 RxNorm 1 EACH INHALATION FOUR TIMES A DAY ProAir HFA 0.09MG/1A ctuation Inhalatio n Suspensio n 04/01/2019 05/12/2022 INHALATI ON NEEDED FOUR TIMES A DAY 2 unit(s) 486182 RxNorm 2 EACH INHALATION NEEDED FOUR TIMES A DAY Pregabali n 200MG Oral Capsule 04/01/2019 07/27/2023 ORAL THREE TIMES A DAY 200 MILLIGRAMS 464279 RxNorm TAKE 200 MILLIGRAMS ORAL THREE TIMES A DAY Ibuprofen 600MG Oral Tablet 10/22/2019 01/13/2021 ORAL NEEDED THREE TIMES A DAY 600 MILLIGRAMS 300046 RxNorm TAKE 600 MILLIGRAMS ORAL NEEDED THREE TIMES A DAY DULoxetin e HCl 60MG Oral Capsule, Delayed Release 10/22/2019 07/27/2023 ORAL DAILY 60 MILLIGRAMS 871903 RxNorm TAKE 60 MILLIGRAMS ORAL DAILY QUEtiapin e Fumarate 300MG Oral Tablet 10/22/2019 05/12/2022 ORAL BEDTIME 300 MILLIGRAMS 168219 RxNorm TAKE 300 MILLIGRAMS ORAL BEDTIME Pantopraz ole Sodium 40MG Oral Tablet, Delayed Release 11/10/2019 01/13/2021 ORAL DAILY 1 TABLET 950894 RxNorm TAKE 1 TABLET ORAL DAILY LORazepam 1MG Oral Tablet 11/25/2019 01/13/2021 ORAL TWICE A DAY 1 TABLET 644653 RxNorm TAKE 1 TABLET ORAL TWICE A DAY Nicoderm CQ 14MG/24HR Transderm al Patch, Extended Release 01/15/2021 02/12/2022 TRANSDER MAL DAILY 1 unit(s) RxNorm APPLY 1 EACH TRANSDERMAL DAILY Azithromy jennifer 250MG Oral Tablet 01/15/2021 10/03/2021 ORAL DAILY 250 MILLIGRAMS 833059 RxNorm TAKE 250 MILLIGRAMS ORAL DAILY Anoro Ellipta 62.5MCG-2 5MCG/1ACT Inhalatio n Powder 01/15/2021 10/03/2021 INHALATI ON 1 unit(s) 2163617 RxNorm 1 EACH INHALATION Flovent 0.22MG/Ac tuation Inhalatio n Aerosol Powder 01/15/2021 10/03/2021 INHALATI ON TWICE A DAY 2 PUFF 075922 RxNorm 2 PUFF INHALATION TWICE A DAY Ibuprofen 200MG Oral Tablet 01/15/2021 11/25/2022 ORAL NEEDED THREE TIMES A DAY 600 MILLIGRAMS 470375 RxNorm TAKE 600 MILLIGRAMS ORAL NEEDED THREE TIMES A DAY LORazepam 0.5MG Oral Tablet 01/15/2021 05/12/2022 ORAL NEEDED TWICE DAILY 0.5 MILLIGRAMS 885003 RxNorm TAKE 0.5 MILLIGRAMS ORAL NEEDED TWICE DAILY Methadone HCl 10MG/1ML Oral Solution 01/15/2021 10/03/2021 ORAL DAILY 13.2 mL 637611 RxNorm TAKE 13.2 mL ORAL DAILY Cefpodoxi me Proxetil 200MG Oral Tablet 01/15/2021 10/03/2021 ORAL TWICE A DAY 1 TABLET 157581 RxNorm TAKE 1 TABLET ORAL TWICE A DAY predniSON E 10MG Oral Tablet 01/15/2021 10/03/2021 ORAL DAILY 2 TABLET 19800803 RxNorm TAKE 2 TABLET ORAL DAILY x 7 days then 1 tab daily x 7 days then stop Cefpodoxi me Proxetil 200MG Oral Tablet 01/15/2021 10/03/2021 ORAL TWICE A DAY 1 TABLET 475920 RxNorm TAKE 1 TABLET ORAL TWICE A DAY predniSON E 20MG Oral Tablet 10/05/2021 11/14/2021 ORAL DAILY WITH FOOD 20 MILLIGRAMS 066801 RxNorm TAKE 20 MILLIGRAMS ORAL DAILY WITH FOOD Albuterol Sulfate 0.083% Inhalatio n Solution 10/05/2021 11/25/2022 INHALATI ON NEEDED EVERY 4 HOURS 1 unit(s) 378545 RxNorm 1 EACH INHALATION NEEDED EVERY 4 HOURS Anoro Ellipta 62.5MCG-2 5MCG/1ACT Inhalatio n Powder 10/05/2021 07/27/2023 INHALATI ON TWICE A DAY 1 PUFF 5775997 RxNorm 1 PUFF INHALATION TWICE A DAY Methadone HCl 40MG Oral Tablet for Suspensio n 10/05/2021 07/27/2023 ORAL DAILY 132 MILLIGRAMS 511942 RxNorm TAKE 132 MILLIGRAMS ORAL DAILY Cephalexi n 500MG Oral Capsule 10/05/2021 11/14/2021 ORAL THREE TIMES A DAY 1 CAPSULE 864900 RxNorm TAKE 1 CAPSULE ORAL THREE TIMES A DAY Doxycycli ne 100MG Oral Capsule 12/10/2021 12/21/2021 ORAL TWICE A DAY 1 CAPSULE 0259121 RxNorm TAKE 1 CAPSULE ORAL TWICE A DAY Zonisamid e 100MG Oral Capsule 12/22/2021 05/12/2022 ORAL TWICE A DAY 100 MILLIGRAMS 386103 RxNorm TAKE 100 MILLIGRAMS ORAL TWICE A DAY Keflex 500MG Oral Capsule 01/14/2022 02/12/2022 ORAL THREE TIMES A DAY 1 CAPSULE 866278 RxNorm TAKE 1 CAPSULE ORAL THREE TIMES A DAY predniSON E 10MG Oral Tablet 02/16/2022 11/25/2022 ORAL THREE TIMES A DAY WITH FOOD 10 MILLIGRAMS 19800803 RxNorm TAKE 10 MILLIGRAMS ORAL THREE TIMES A DAY WITH FOOD SEROquel 300MG Oral Tablet 02/16/2022 12/22/2022 ORAL BEDTIME 300 MILLIGRAMS 329803 RxNorm TAKE 300 MILLIGRAMS ORAL BEDTIME Cephalexi n 500MG Oral Capsule 02/16/2022 02/16/2022 ORAL THREE TIMES A DAY 1 CAPSULE 257969 RxNorm TAKE 1 CAPSULE ORAL THREE TIMES A DAY Cephalexi n 500MG Oral Capsule 02/16/2022 05/12/2022 ORAL THREE TIMES A DAY 1 CAPSULE 908363 RxNorm TAKE 1 CAPSULE ORAL THREE TIMES A DAY MiraLAX 17GM/1Dos e Oral Powder for Solution 05/12/2022 11/25/2022 ORAL DAILY 17 GRAM 755736 RxNorm TAKE 17 G PAT ORAL DAILY Ventolin HFA 0.09MG/1A ctuation Inhalatio n Suspensio n 12/01/2022 07/27/2023 INHALATI ON 1 unit(s) 298525 RxNorm 1 EACH INHALATION Cefpodoxi me Proxetil 200MG Oral Tablet 12/01/2022 12/22/2022 ORAL EVERY 12 HOURS 200 MILLIGRAMS 527732 RxNorm TAKE 200 MILLIGRAMS ORAL EVERY 12 HOURS Ibuprofen 600MG Oral Tablet 12/01/2022 07/27/2023 ORAL NEEDED THREE TIMES A DAY 600 MILLIGRAMS 504015 RxNorm TAKE 600 MILLIGRAMS ORAL NEEDED THREE TIMES A DAY FOR PAIN Combivent Respimat 100MCG-20 MCG/1Act Inhalatio n [place] 12/01/2022 07/27/2023 INHALATI ON NEEDED EVERY 8 HOURS 1 unit(s) 6380035 RxNorm 1 EACH INHALATION NEEDED EVERY 8 HOURS Depo-Test osterone Novaplus 200MG/1ML Intramusc ular Oil 12/01/2022 07/27/2023 INTRAMUS CULAR 1 unit(s) 572650 RxNorm INJECT 1 EACH INTRAMUSCULA R Flovent 0.22MG/1A ctuation Inhalatio n Aerosol Powder 12/01/2022 07/27/2023 INHALATI ON TWICE A DAY 1 unit(s) 006621 RxNorm 1 EACH INHALATION TWICE A DAY Zonisamid e 100MG Oral Capsule 12/01/2022 07/27/2023 ORAL DAILY 200 MILLIGRAMS 777057 RxNorm TAKE 200 MILLIGRAMS ORAL DAILY guaiFENes in 600MG Oral Tablet, Extended Release 12/01/2022 12/01/2022 ORAL NEEDED TWICE DAILY 1 TABLET 395294 RxNorm TAKE 1 TABLET ORAL NEEDED TWICE DAILY FOR COUGH predniSON E 10MG Oral Tablet 12/01/2022 12/01/2022 ORAL DAILY 2 TABLET 363583 RxNorm TAKE 2 TABLET ORAL DAILY X 5 DAYS THEN 1 TAB DAILY X 5 DAYS THEN STOP guaiFENes in 600MG Oral Tablet, Extended Release 12/01/2022 07/27/2023 ORAL NEEDED TWICE DAILY 1 TABLET 586019 RxNorm TAKE 1 TABLET ORAL NEEDED TWICE DAILY FOR COUGH predniSON E 10MG Oral Tablet 12/01/2022 12/22/2022 ORAL DAILY 2 TABLET 007209 RxNorm TAKE 2 TABLET ORAL DAILY X 5 DAYS THEN 1 TAB DAILY X 5 DAYS THEN STOP Acetamino phen 500MG Oral Tablet 12/01/2022 07/27/2023 ORAL NEEDED THREE TIMES A DAY 2 TABLET 066580 RxNorm TAKE 2 TABLET ORAL NEEDED THREE TIMES A DAY FOR PAIN Lisinopri l 40MG Oral Tablet 12/01/2022 07/27/2023 ORAL DAILY 1 TABLET 301829 RxNorm TAKE 1 TABLET ORAL DAILY predniSON E 20MG Oral Tablet 12/22/2022 04/02/2023 ORAL DAILY 1 TABLET 046027 RxNorm TAKE 3 TABLETS DAILY FOR 3 DAYS, THEN 2 TABLETS DAILY FOR 3 DAYS, THEN 1 TABLET DAILY FOR 3 DAYS Narcan 4MG/0.1ML Nasal [place] 12/30/2022 07/27/2023 NASAL NEEDED 1 SPRAY 0178455 RxNorm SPRAY 1 SPRAY NASAL NEEDED FOR OPIATE OVERDOSE Albuterol Sulfate 0.09MG/1A ctuation Inhalatio n Suspensio n 12/30/2022 07/27/2023 INHALATI ON NEEDED EVERY 4 HOURS 2 PUFF 8429343 RxNorm 2 PUFF INHALATION NEEDED EVERY 4 HOURS FOR Shortness of breath Cefpodoxi me Proxetil 200MG Oral Tablet 04/05/2023 06/04/2023 ORAL TWICE A DAY 1 TABLET 384362 RxNorm TAKE 1 TABLET ORAL TWICE A DAY QUEtiapin e 300MG Oral Tablet 04/05/2023 07/27/2023 ORAL BEDTIME 300 MILLIGRAMS 361715 RxNorm TAKE 300 MILLIGRAMS ORAL BEDTIME predniSON E 10MG Oral Tablet 04/05/2023 06/04/2023 ORAL TWICE A DAY 2 TABLET 424343 RxNorm TAKE 2 TABLET ORAL TWICE A DAY for 3 days then 2 tabs daily x 3 days then 1 tab daily x 3 days Senna Plus 50MG-8.6M G Oral Tablet 04/05/2023 07/27/2023 ORAL TWICE A DAY 2 TABLET 545892 RxNorm TAKE 2 TABLET ORAL TWICE A DAY busPIRone 15MG Oral Tablet 04/05/2023 07/27/2023 ORAL THREE TIMES A DAY 15 MILLIGRAMS 835370 RxNorm TAKE 15 MILLIGRAMS ORAL THREE TIMES A DAY oxygen 04/05/2023 Unknown ORAL continuo us 3 LITERS RxNorm TAKE 3 LITERS ORAL continuous Milk Of Magnesia 400MG/5ML Oral Suspensio n 06/13/2023 07/27/2023 ORAL NEEDED DAILY 30 mL 710969 RxNorm TAKE 30 mL ORAL NEEDED DAILY predniSON E 20MG Oral Tablet 07/27/2023 10/16/2023 ORAL DAILY 2 TABLET 941995 RxNorm TAKE 2 TABLET ORAL DAILY predniSON E 20MG Oral Tablet 09/15/2023 10/16/2023 ORAL DAILY 2 TABLET 683805 RxNorm TAKE 2 TABLET ORAL DAILY Ibuprofen 200MG Oral Tablet 10/22/2023 Unknown ORAL NEEDED THREE TIMES A DAY 3 TABLET 501103 RxNorm TAKE 3 TABLET ORAL NEEDED THREE TIMES A DAY predniSON E 10MG Oral Tablet 10/22/2023 12/01/2023 ORAL TWICE A DAY 2 TABLET 660438 RxNorm TAKE 2 TABLET ORAL TWICE A DAY x 3 days then 1 tab twice a day x 5 days then 1 tab daily LORazepam 1MG Oral Tablet 10/22/2023 Unknown ORAL NEEDED TWICE DAILY 1 MILLIGRAMS 813372 RxNorm TAKE 1 MILLIGRAMS ORAL NEEDED TWICE DAILY Cefpodoxi me Proxetil 200MG Oral Tablet 10/22/2023 11/28/2023 ORAL EVERY 12 HOURS 200 MILLIGRAMS 154767 RxNorm TAKE 200 MILLIGRAMS ORAL EVERY 12 HOURS Anoro Ellipta 62.5MCG-2 5MCG/1ACT Inhalatio n Powder 10/22/2023 Unknown INHALATI ON DAILY 1 GRAM 0725142 RxNorm 1 GRAM INHALATION DAILY DULoxetin e HCl 60MG Oral Capsule, Delayed Release 10/22/2023 Unknown ORAL DAILY 60 MILLIGRAMS 962848 RxNorm TAKE 60 MILLIGRAMS ORAL DAILY Linzess 145MCG Oral Capsule 10/22/2023 10/27/2023 ORAL DAILY 1 unit(s) 5731893 RxNorm TAKE 1 E ACH ORAL DAILY Lisinopri l 40MG Oral Tablet 10/22/2023 Unknown ORAL DAILY 40 MILLIGRAMS 767566 RxNorm TAKE 40 MILLIGRAMS ORAL DAILY Methadone 10MG Oral Tablet 10/22/2023 Unknown ORAL DAILY 132 MILLIGRAMS RxNorm TAKE 132 MILLIGRAMS ORAL DAILY Pregabali n 200MG Oral Capsule 10/22/2023 Unknown ORAL THREE TIMES A DAY 200 MILLIGRAMS 675630 RxNorm TAKE 200 MILLIGRAMS ORAL THREE TIMES A DAY QUEtiapin e Fumarate 300MG Oral Tablet 10/22/2023 Unknown ORAL BEDTIME 300 MILLIGRAMS 812898 RxNorm TAKE 300 MILLIGRAMS ORAL BEDTIME Testoster one Cypionate 200MG/1ML Intramusc ular Oil 10/22/2023 Unknown 0888614 RxNorm As directed Ventolin HFA 0.09MG/1A ctuation Inhalatio n Suspensio n 10/22/2023 Unknown INHALATI ON NEEDED EVERY 4 HOURS 2 PUFF 469702 RxNorm 2 PUFF INHALATION NEEDED EVERY 4 HOURS Acetamino phen 500MG Oral Tablet 10/22/2023 Unknown ORAL THREE TIMES A DAY 2 TABLET RxNorm TAKE 2 TABLET ORAL THREE TIMES A DAY predniSON E 10MG Oral Tablet 12/01/2023 12/07/2023 ORAL DAILY 4 TABLET 752961 RxNorm TAKE 4 TABLET ORAL DAILY x 3 days then 2 tabs daily x 3 days then 1 tab daily x 7 days Cefpodoxi me Proxetil 200MG Oral Tablet 12/01/2023 12/07/2023 ORAL TWICE A DAY 1 TABLET 462141 RxNorm TAKE 1 TABLET ORAL TWICE A DAY levoFLOXa jennifer 750MG Oral Tablet 12/25/2023 Unknown ORAL DAILY 1 TABLET 399706 RxNorm TAKE 1 TABLET ORAL DAILY predniSON E 50MG Oral Tablet 12/25/2023 Unknown ORAL DAILY 1 TABLET 331771 RxNorm TAKE 1 TABLET ORAL DAILY Assessment [...] Date Status Code Code System PNEUMONIA active 594675781 SNOMED-CT POLYSUBSTANCE ABUSE active 291972595 SNOMED-CT ACUTE AND CHRONIC RESPIRATORY FAILURE WITH HYPERCAPNIA active 4007087298603 SNOMED-CT ACUTE AND CHRONIC RESPIRATORY FAILURE WITH HYPOXIA active 41664174 SNOMED-CT COPD WITH EXACERBATION active 9298676 07 SNOMED-CT ALCOHOL USE WITH WITHDRAWAL active 437675256 SNOMED-CT CHRONIC RESPIRATORY FAILURE WITH HYPOXIA 10/03/2021 resolved 03366368 SNOMED- CT OTHER SEIZURES 10/03/2021 resolved 31542418 SNOM ED-CT PULMONARY NODULE 10/03/2021 resolved 087249059 SN OMED-CT CHRONIC HEPATITIS C 10/03/2021 resolved 454971324 SNOMED-CT ANXIETY DISORDER 10/03/2021 resolved 991441524 SN OMED-CT 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 10/03/2021 resolved 702105884880514 SNOME D-CT NICOTINE DEPENDENCE 01/13/2021 resolved 06062104 SNOMED-CT VENOUS INSUFFICIENCY 10/03/2021 resolved 70760689 SNOMED-CT ALCOHOL INTOXICATION 11/26/2022 resolved 83916844 SNOMED-CT AMS 11/26/2022 resolved 849017697 SNOMED-CT HYPOKALEMIA 11/26/2022 resolved 25150357 SNOMED- CT OPIATE TOXICITY 06/04/2023 resolved 854302374 SNO MED-CT ACUTE ALCOHOL INTOXICATION 04/01/2023 resolved 0195381925 SNOMED-CT FEVER 06/04/2023 resolved 204285579 SNOMED-CT ALTERED MENTAL STATUS 06/04/2023 resolved 7998293 04 SNOMED-CT CHRONIC HEADACHE DISORDER 10/03/2021 resolved 024323539 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 735430 00 SNOMED-CT ALCOHOL DEPENDENCE WITH WITHDRAWAL 01/13/2021 resolved 62471782 SNOMED-CT HTN 10/03/2021 resolved 24183743 SNOMED-CT COPD 09/09/2021 resolved 38171872 SNOMED-CT HIGH CHOLESTEROL 09/09/2021 resolved 22535129 SN OMED-CT Allergies and Adverse Reactions Allergy Substance Reaction Severity Start Date Concern Status Code Code System PCN (penicillin) Anaphylaxis (SNOMED-CT: 75989003) Moderate Active 6098250 SNOMED-CT Plan of Treatment X-RAY 03/21/2022 MRI BRAIN W WO CONTRAST 12/06/2021 MRI BRAIN W WO CONTRAST 11/30/2021 LAB DRAW 15MIN 05/13/2021 Encounters Encounter Diagnosis Start Date Code Code Sys tem Chronic obstructive pulmonar y disease with (acute) exacerbation 01/13/2021 SNOMED-CT Personal Care Team Section Performer Name Performer Role Active Date Inactive Da elias
--- NOTE | 2024-02-29 09:15 | DI.RAD_ITS ---
Exam(s) XR CHEST 2V PA LATERAL EXAM: XR CHEST 2V PA LATERAL CLINICAL HISTORY: recurrent pneumonia TECHNIQUE: 2D digital imaging was performed. Two views. COMPARISON: CR XR PORTABLE CHEST AP from 10/18/2021 CR XR PORTABLE CHEST AP from 02/09/[address] ABDOMEN PELVIS W from 02/10/2024 CR XR CHEST 2V PA LATERAL from 02/11/2024 CR,XR XR PORTABLE CHEST AP from 02/12/2024 FINDINGS: HEART: Normal size. Aorta: Not dilated. PULMONARY VASCULATURE: Normal. MEDIASTINUM: Unremarkable. LUNGS: Emphysematous and fibrotic changes. The previously noted infiltrates have cleared. There is some linear scarring as well as emphysematous changes. PLEURAL SPACE: No pleural effusion or pneumothorax. BONE:Stable mild midthoracic compression fractures. SOFT TISSUES: Unremarkable. IMPRESSION: Clearing bilateral infiltrates. No acute abnormality. DATA REPOSITORY: RADIATION DOSE DELIVERED:
[2024-02-29 09:41] LABS: BE (Venous) 12 mmol/L (-2-3); HCO3 (Venous) 37 mmol/L (23-28); O2 Sat (Venous) 77 %; TCO2 (Venous) 33 mmol/L (24-29); pH (Venous) 7.37 (7.31-7.41); pO2 (Venous) 43 mmHg
[2024-02-29] MEDS: LORazepam 2 MG/ML VIAL 1 MG IVP (09:41)
[2024-02-29 09:42] LABS: Abs Immature Grans 0.02 10^3/uL (0.0-0.06); Absolute Eosinophil Count 0.13 10^3/uL (0.0-0.7); Absolute Lymphocyte Count 1.38 10^3/uL (1.2-3.4); Absolute Monocyte Count 0.68 10^3/uL (0.1-0.8); Absolute Neutrophil Count 4.78 10^3/uL (1.2-6.7); Basophils % 1.4 %; Eosinophils % 1.8 %; HGB 14.2 g/dL (13.5-17.5); Immature Grans % 0.3 %; Lymphocytes % 19.5 %; MCH 31.6 pg (27.0-33.0); MCV 96 fL (80-95); MPV 10.4 fL (8.0-11.0); Monocytes % 9.6 %; Neutrophils % 67.4 %; Platelet Count 216 10^3/uL (130-400); RBC 4.49 10^6/uL (4.36-5.78); RDW 13.4 % (11.8-14.1); RDW-SD 47.6 fL; WBC 7.09 10^3/uL (4.4-10.8)
[2024-02-29 09:43] LABS: pCO2 (Venous) 64 mmHg (41-51)
[2024-02-29] MEDS: methylPREDNISolone SUCC 125 MG VIAL 80 MG IVP (09:45)
[2024-02-29 09:52] LABS: Prothrombin Time 10.4 sec (9.1-11.1)
[2024-02-29 10:12] LABS: ALT 35 U/L (16-63); AST 25 U/L (15-37); Albumin 3.8 g/dL (3.4-5.0); Alkaline Phosphatase 67 U/L (46-116); Anion Gap 6.4 mmol/L (3-11); BUN 13 mg/dL (7-18); Bilirubin, Total 0.23 mg/dL (0.2-1.0); CO2 35.6 mmol/L (21.0-32.0); CREATININE 0.7 mg/dL (0.70-1.30); Calcium 9.1 mg/dL (8.5-10.1); Chloride 100 mmol/L (98-107); Estimated GFR 112.25 (mL/min/1.73m2); Glucose 98 mg/dL (74-106); Potassium 4.1 mmol/L (3.5-5.1); Sodium 142 mmol/L (136-145); Total Protein 7.6 g/dL (6.4-8.2); Troponin I 5 ng/L (<or=76)
[2024-02-29 10:16] LABS: ETHANOL BLOOD < 3.0 mg/dL (<10)
[2024-02-29 10:16] LABS: COVID-19 PCR Negative (Negative); Influenza A PCR Negative (Negative); Influenza B PCR Negative (Negative); RSV PCR Negative (Negative); Source Nasopharynx
[2024-02-29 10:17] LABS: Procalcitonin < 0.1 ng/mL
--- NOTE | 2024-02-29 10:30 | DI.CT_ITS ---
Exam(s) CT CHEST PE CTA EXAM: CT CHEST PE CTA CLINICAL HISTORY: chest pain, shortness of breath, recovering pna. TECHNIQUE: Imaging Protocol: Axial CT angiography was performed with multi-slice acquisition and mu lti-planar reconstructions as well as axial, coronal and sagittal MIP reconstructions. Computer aided detection (CAD) was utilized. CONTRAST MATERIAL: Intravenous: Omnipaque 350 Contrast volume:85 ml COMPARISON: CT CT CHEST/ABD/PEL W from 02/09/2024 CR,XR XR PORTABLE CHEST AP from 02/12/2024 CR XR CHEST 2V PA LATERAL from 02/29/2024 FINDINGS: Pulmonary Arteries: No evidence of filling defect to suggest pulmonary emboli. Mediastinum and Leyla: Calcified hilar and mediastinal lymph nodes. Pulmonary parenchyma: No consolidation or dominant measurable mass. Emphysematous changes greater in the upper lobes. Multifocal areas of linear atelectasis versus scarring. No acute infiltrates. Calcified granulomas. Pleura: No effusion or pneumothorax. Heart: The heart is not dilated. No coronary artery calcifications are seen. Aorta: Thoracic aorta non-dilated. No dissection. Upper abdomen: No acute findings. Bones: Stable mild midthoracic compression fractures. Tubes, Catheters, and Lines: None Soft tissues: Unremarkable. IMPRESSION: No evidence of pulmonary embolism. No acute pulmonary abnormality. RADIATION DOSE DELIVERED: 118.42mGy.cm Total DLP DATA REPOSITORY: All CT scans at this facility are submitted to the National Radiology Data Registry (NRDR) Dose Index Registry (DIR) with the [employer] (A[employer]). RADIATION OPTIMIZATION: All CT scans at this facility use at least one of these dose optimization te chniques: automated exposure control; mA and/or kV adjustment per patient size (includes targeted exa ms where dose is matched to clinical indication); or iterative reconstruction.
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
[2024-02-29] MEDS: Pregabalin 100 MG CAP 200 MG PO (10:44)
[2024-02-29] MEDS: DULoxetine 30 MG CAP 60 MG PO (10:45)
[2024-02-29] MEDS: Lisinopril 20 MG TAB PO (10:45)
[2024-02-29 11:25] LABS: Lipase 75 U/L (16-77)
[2024-02-29 11:40] LABS: Troponin I 4 ng/L (<or=76)
[2024-02-29] MEDS: Omnipaque 350 MG/ML 500 ML BTL-Imaging package 80 ML IJ (12:14)
[2024-02-29] MEDS: Normal Saline - Diluent 50 ML VIAL IJ (12:15)
[2024-02-29] MEDS: Ketorolac 15 MG/ML VIAL 7.5 MG IVP (12:25)
[2024-02-29] MEDS: Albuterol HFA 8 GM 60 PUFF INH IH (13:37)
== END 2024-02-29 13:52 | disposition home or self-care (01) ==
PROVIDERS: Emergency Provider Physician Assistant; PCP Family Medicine
DX: J44.1 Chronic obstructive pulmonary disease with (acute) exacerbation (principal); J45.901 Unspecified asthma with (acute) exacerbation; I10 Essential (primary) hypertension; F17.210 Nicotine dependence, cigarettes, uncomplicated; Z89.511 Acquired absence of right leg below knee; Z99.81 Dependence on supplemental oxygen
CPT/HCPCS: 36415; 71275; 80053; 82805; 83690; 84145; 87040; 87637; 93005; 94640; 96374; 96375; 99285; 71046; 80320; 83735; 84484; 85025; 85610; 93010; J1885; J2060; J2919; J7620

== ENCOUNTER 2024-03-04 18:10 | Outpatient (REF) | payer MEDICARE, MEDICAID, SELFPAY ==
[2024-03-07 12:26] LABS: Misc Referral (MAYO) See Comments
== END 2024-03-04 18:11 | disposition home or self-care (01) ==
LOC: NCHCN 18:10
PROVIDERS: PCP Family Medicine; Visit Provider Family Medicine
DX: F10.10 Alcohol abuse, uncomplicated (principal); Z79.899 Other long term (current) drug therapy
CPT/HCPCS: 80320

== ENCOUNTER 2024-05-02 10:25 | Inpatient (IN) | payer MEDICARE, MEDICAID, SELFPAY ==
[2024-05-02] VITALS (64 sets, daily range): BP systolic 97–191; BP diastolic 54–112; PULSE 59–123; RESP 8–30; TEMP 36.8–36.9; O2SAT 83–99
--- NOTE | 2024-05-02 10:15 | RT.EKG_ITS ---
APPROVED REPORT Exam: Resting ECG Reason for Exam: SOB Patient Location: E HR:83 bpm ECG Measurements Heart Rate 83 AXIS ND 139 P 74 QRSd 96 QRS 95 QT 398 T 67 QTc 466 Conclusion Sinus rhythm...normal P axis, V-rate 60- 99 ST elev, probable normal early repol pattern...ST elevation, age<55
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
[2024-05-02 10:45] LABS: BE (Venous) 15 mmol/L (-2-3); HCO3 (Venous) 40 mmol/L (23-28); O2 Sat (Venous) 66 %; TCO2 (Venous) 35 mmol/L (24-29); pH (Venous) 7.36 (7.31-7.41); pO2 (Venous) 41 mmHg
[2024-05-02 10:48] LABS: Abs Immature Grans 0.02 10^3/uL (0.0-0.06); Absolute Basophil Count 0.12 10^3/uL (0.0-0.2); Absolute Eosinophil Count 0.34 10^3/uL (0.0-0.7); Absolute Lymphocyte Count 2.66 10^3/uL (1.2-3.4); Absolute Monocyte Count 0.54 10^3/uL (0.1-0.8); Absolute Neutrophil Count 2.86 10^3/uL (1.2-6.7); Basophils % 1.8 %; Eosinophils % 5.2 %; HCT 50.6 % (40.0-50.0); HGB 16.9 g/dL (13.5-17.5); Immature Grans % 0.3 %; Lymphocytes % 40.7 %; MCH 31.6 pg (27.0-33.0); MCHC 33.4 % (32.0-36.0); MCV 95 fL (80-95); MPV 9.5 fL (8.0-11.0); Monocytes % 8.3 %; Neutrophils % 43.7 %; Platelet Count 263 10^3/uL (130-400); RBC 5.34 10^6/uL (4.36-5.78); RDW 14.6 % (11.8-14.1); RDW-SD 50.9 fL; WBC 6.54 10^3/uL (4.4-10.8)
[2024-05-02 10:48] LABS: pCO2 (Venous) 71 mmHg (41-51)
[2024-05-02] MEDS: Albuterol/Ipratropium 3 ML UPD VIAL UPD (10:57)
--- NOTE | 2024-05-02 11:11 | DI.RAD_ITS ---
Exam(s) XR PORTABLE CHEST AP EXAM: XR PORTABLE CHEST AP CLINICAL HISTORY: SOB, hx COPD. TECHNIQUE: 2D digital imaging was performed. COMPARISON: CR,XR XR PORTABLE CHEST AP from 02/12/2024 CR XR CHEST 2V PA LATERAL from 02/29/2024 FINDINGS: Single AP portable view. Heart size is normal.. The mediastinum is not widened. Calcified granulomas in lateral left lung are again noted. Slightly increased markings are noted in the right lower lobe, more so than previous but less than was evident on 02/12/24. No pleural effusions. No pulmonary edema. IMPRESSION: As above. Recommend nonportable PA and lateral views when clinically possible. DATA REPOSITORY: RADIATION DOSE DELIVERED:
[2024-05-02 11:18] LABS: Creatine Kinase 105 U/L (39-308)
[2024-05-02 11:19] LABS: Troponin I 5 ng/L (<or=76)
[2024-05-02 11:20] LABS: Acetaminophen < 2 ug/mL (10-30); Salicylate < 2.8 mg/dL (<2.8)
[2024-05-02] MEDS: Lactated Ringers 1,000 ML 1000 ML IV (11:20)
[2024-05-02 11:25] LABS: COVID-19 PCR Negative (Negative); Influenza A PCR Negative (Negative); Influenza B PCR Negative (Negative); RSV PCR Negative (Negative)
[2024-05-02 11:27] LABS: Source Nasopharynx
[2024-05-02 11:31] LABS: ALT 49 U/L (16-63); AST 60 U/L (15-37); Alkaline Phosphatase 67 U/L (46-116); Anion Gap 3.1 mmol/L (3-11); BUN 16 mg/dL (7-18); Bilirubin, Total 0.55 mg/dL (0.2-1.0); CO2 38.9 mmol/L (21.0-32.0); CREATININE 0.9 mg/dL (0.70-1.30); Calcium 8.3 mg/dL (8.5-10.1); Chloride 101 mmol/L (98-107); Estimated GFR 104.05 (mL/min/1.73m2); Glucose 139 mg/dL (74-106); Magnesium 2.2 mg/dL (1.8-2.4); Potassium 3.9 mmol/L (3.5-5.1); Sodium 143 mmol/L (136-145); Total Protein 7.7 g/dL (6.4-8.2)
[2024-05-02 11:34] LABS: ETHANOL BLOOD 404.7 mg/dL (<10)
[2024-05-02 11:44] LABS: BE (Venous) 6 mmol/L (-2-3); HCO3 (Venous) 31 mmol/L (23-28); O2 Sat (Venous) 89 %; TCO2 (Venous) 32 mmol/L (24-29); pCO2 (Venous) 49 mmHg (41-51); pH (Venous) 7.41 (7.31-7.41); pO2 (Venous) 58 mmHg
[2024-05-02] MEDS: Naloxone 0.4 MG/ML VIAL 0.2 MG IVP (11:49)
[2024-05-02] MEDS: diphenhydrAMINE 50 MG/ML VIAL IVP (11:56)
[2024-05-02] MEDS: Prochlorperazine 10 MG/2 ML VIAL IVP (11:56)
[2024-05-02 12:14] LABS: Troponin I < 4 ng/L (<or=76)
--- NOTE | 2024-05-02 12:15 | DI.RAD_ITS ---
Exam(s) XR CHEST 2V PA LATERAL EXAM: XR CHEST 2V PA LATERAL CLINICAL HISTORY: sob TECHNIQUE: 2D digital imaging was performed. Two views. COMPARISON: CT CT CHEST PE CTA from 02/29/2024 CR XR CHEST 2V PA LATERAL from 02/29/2024 CR XR PORTABLE CHEST AP from 05/02/2024 FINDINGS: Exam is limited by poor inspiration penetration. HEART: Normal size. Aorta: Not dilated. PULMONARY VASCULATURE: Normal. MEDIASTINUM: Unremarkable. LUNGS: Linear densities at lung bases consistent with atelectasis. Underlying emphysematous changes. No definite infiltrate however this is difficult to exclude given basilar atelectasis. PLEURAL SPACE: No pleural effusion or pneumothorax. BONE:Stable compression fractures. SOFT TISSUES: Unremarkable. IMPRESSION: Limited exam due to poor inspiration. Bibasilar atelectasis. DATA REPOSITORY: RADIATION DOSE DELIVERED:
[2024-05-02 12:19] LABS: Bilirubin Negative (Negative); Blood Negative (Negative); Clarity Clear (Clear); Glucose Negative (Negative); Ketones Negative (Negative); Leukocyte Esterase Negative (Negative); Nitrite Negative (Negative); Specific Gravity 1.025 (1.005-1.025); Urobilinogen 0.2 mg/dL (Up to 0.2); pH 5.5 (5-8)
[2024-05-02 12:37] LABS: *AMPHETAMINES SCREEN URINE Negative (Negative); *BARBITURATES SCREEN URINE Negative (Negative); *BENZODIAZEPINES SCREEN URINE Negative (Negative); Cannabinoids THC Positive (Negative); Cocaine Screen,Urine Negative (Negative); METHADONE URINE SCREEN Positive (Negative); OPIATES URINE SCREEN Negative (Negative); Tricyclic Antidepressants Negative (Negative)
--- NOTE | 2024-05-02 13:38 | DI.CT_ITS ---
Exam(s) CT HEAD WO EXAM: CT HEAD WO CLINICAL HISTORY: confusion. TECHNIQUE: Imaging Protocol: Axial computed tomography images with coronal and sagittal reformatted images were created and reviewed COMPARISON: No exams were available for comparison FINDINGS: Ventricles and Extra axial spaces: Normal in size and morphology for the patient's age. Hemorrhage: None. Cerebral parenchyma: No evidence of acute infarct or mass. Midline shift: None. Brainstem/Cerebellum: Normal. Calvarium: Normal. Visualized Paranasal sinuses:Clear. Mastoids: Clear. Soft Tissues: Unremarkable. ORBITS: Unremarkable. PITUITARY: Not enlarged. IMPRESSION: No acute intracranial process. RADIATION DOSE DELIVERED: Total DLP DATA REPOSITORY: All CT scans at this facility are submitted to the National Radiology Data Registry (NRDR) Dose Index Registry (DIR) with the [employer] (ACR). RADIATION OPTIMIZATION: All CT scans at this facility use at least one of these dose optimization te chniques: automated exposure control; mA and/or kV adjustment per patient size (includes targeted exa ms where dose is matched to clinical indication); or iterative reconstruction.
[2024-05-02] MEDS: Naloxone 0.4 MG/ML VIAL 0.1 MG IVP (14:40)
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
[2024-05-02] MEDS: Normal Saline 1,000 ML 125 ML IV (17:08)
[2024-05-02] MEDS: Enoxaparin 40 MG/0.4 ML SYR SC (17:09)
[2024-05-02] MEDS: Normal Saline Flush 10 ML SYR IVP ×2 (17:29→19:54)
[2024-05-02] MEDS: PHENobarbital 130 MG/ML VIAL IVP ×2 (17:29→19:52)
[2024-05-02] MEDS: Mometasone 220 MCG 14 DOSE INHALER 2 PUFF IH (19:43)
[2024-05-02] MEDS: busPIRone 5 MG TAB 15 MG PO (19:52)
[2024-05-02] MEDS: Sennosides/Docusate Sodium TAB 1 TAB PO (19:52)
[2024-05-02] MEDS: QUEtiapine 100 MG TAB 300 MG PO (19:53)
[2024-05-02] MEDS: Pregabalin 100 MG CAP 200 MG PO (19:53)
[2024-05-03] VITALS (16 sets, daily range): BP systolic 107–186; BP diastolic 78–105; PULSE 67–95; RESP 12–18; TEMP 36.2–37.3; O2SAT 88–95
[2024-05-03] MEDS: Normal Saline 1,000 ML 125 ML IV ×2 (01:37→16:37)
[2024-05-03] MEDS: PHENobarbital 130 MG/ML VIAL IVP ×2 (05:26→08:52)
[2024-05-03 05:36] LABS: Abs Immature Grans 0.01 10^3/uL (0.0-0.06); Absolute Basophil Count 0.08 10^3/uL (0.0-0.2); Absolute Eosinophil Count 0.37 10^3/uL (0.0-0.7); Absolute Lymphocyte Count 2.41 10^3/uL (1.2-3.4); Absolute Monocyte Count 0.79 10^3/uL (0.1-0.8); Absolute Neutrophil Count 2.48 10^3/uL (1.2-6.7); Basophils % 1.3 %; HCT 43.7 % (40.0-50.0); Immature Grans % 0.2 %; Lymphocytes % 39.3 %; MCH 31.9 pg (27.0-33.0); MCHC 33.4 % (32.0-36.0); MCV 96 fL (80-95); MPV 9.9 fL (8.0-11.0); Monocytes % 12.9 %; Neutrophils % 40.3 %; Platelet Count 156 10^3/uL (130-400); RBC 4.57 10^6/uL (4.36-5.78); RDW 14.6 % (11.8-14.1); RDW-SD 51.4 fL; WBC 6.14 10^3/uL (4.4-10.8)
[2024-05-03 05:40] LABS: HGB 14.6 g/dL (13.5-17.5)
[2024-05-03 05:58] LABS: ETHANOL BLOOD 111.7 mg/dL (<10)
[2024-05-03 06:01] LABS: ALT 115 U/L (16-63); AST 165 U/L (15-37); Alkaline Phosphatase 52 U/L (46-116); BUN 16 mg/dL (7-18); Bilirubin, Total 0.84 mg/dL (0.2-1.0); CREATININE 0.7 mg/dL (0.70-1.30); Calcium 7.6 mg/dL (8.5-10.1); Chloride 103 mmol/L (98-107); Estimated GFR 112.25 (mL/min/1.73m2); Glucose 83 mg/dL (74-106); Potassium 4.5 mmol/L (3.5-5.1); Sodium 142 mmol/L (136-145); Total Protein 5.8 g/dL (6.4-8.2)
[2024-05-03] MEDS: Normal Saline Flush 10 ML SYR IVP ×2 (07:22→19:40)
[2024-05-03] MEDS: Ibuprofen 600 MG TAB PO ×2 (07:22→21:03)
[2024-05-03] MEDS: busPIRone 5 MG TAB 15 MG PO ×3 (07:22→20:14)
[2024-05-03] MEDS: Pregabalin 100 MG CAP 200 MG PO ×3 (07:22→20:13)
[2024-05-03] MEDS: Mometasone 220 MCG 14 DOSE INHALER 2 PUFF IH ×2 (07:53→19:45)
[2024-05-03] MEDS: Tiotropium/Olodaterol 10 PUFF INHALER 2 PUFF IH (07:54)
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
[2024-05-03] MEDS: Methadone Liquid 10 MG/ML 155 MG PO (08:23)
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
[2024-05-03] MEDS: Multivitamin TAB 1 TAB PO (08:52)
[2024-05-03] MEDS: DULoxetine 30 MG CAP 60 MG PO (08:52)
[2024-05-03] MEDS: Thiamine 100 MG TAB PO (08:52)
[2024-05-03] MEDS: Lisinopril 20 MG TAB PO (08:52)
[2024-05-03] MEDS: Folic Acid 1 MG TAB PO (08:52)
--- NOTE | 2024-05-03 10:52 | RESPIRATORY ---
05/03/24-Spoke with Rupali at [facility] about getting an Oxygen tank dropped off for when patient discharges. [facility] will get one to patient's room today
--- NOTE | 2024-05-03 11:30 | PGE_ITS ---
Date of Service Date of service: 05/03/24 Time of Service: 11:31 Assessment and Plan Assessment and plan (1) Tobacco abuse: Status: Chronic Assessment and plan: Recommend completing total cessation will add nicotine patch (2) Psychological trauma history: Status: Chronic Assessment and plan: Noted (3) Opiate dependence: Status: Acute Assessment and plan: Continue with his home methadone use (4) Alcohol abuse: Status: Chronic Assessment and plan: Patient is on the phenobarbital protocol and thiamine folic acid and multivitamins have been ordered as well. Recheck EtOH level in the a.m. PT does have a history of alcohol w/d seizures. Will keep in the ICU for now. C/W protocol (5) Hepatitis C: Status: Chronic Assessment and plan: Continue with outpatient follow-up at the discretion of his PCP (6) Polycythemia: Status: Chronic Assessment and plan: Most likely due to his underlying tobacco use disorder will monitor 1.3.25 Resolved with gentle hydration (7) Hx of right BKA: Status: Acute Assessment and plan: Noted (8) COPD with acute exacerbation: Status: Resolved Assessment and plan: On my physical exam I did not notice a lot of wheezing but he is on DuoNeb as well as Combivent (9) HTN (hypertension): Status: Chronic Assessment and plan: Patient is on an BEATRIZ inhibitor and will monitor his blood pressures. Would be hesitant to change his medication and this period of time where he might be withdrawing. 1.3.25 BP is currently 150/90, c/w lisinopril 20mg daily Subjective Subjective Interval history since last seen: Pt seen and examined in the ICU this AM. POC d/w pt, as well as with the bedside nurse during ICU huddle. Pt did receive 2 doses of phenobarbital but his etoh level was still elevated. PT endorses drinking 1/2 gallon of vodka per day. Pt does complain of hurting all over Exam Narrative Exam Narrative: Head eyes ears nose and throat: Normocephalic atraumatic mucous membranes are moist he does not have horizontal nystagmus and poor dentition Neck: No lymphadenopathy no JVD no thyromegaly Cardiovascular: Regular rate and rhythm no murmur rubs or gallops Lungs: Clear to auscultation with good air exchange no accessory muscle use Abdomen: Soft nontender nondistended Extremities: He has a right AKA I believe and left upper extremity contraction Neurologic: Cranial nerves II through XII are intact as tested but a complete exam was not possible due to his underlying mental condition. General: 48-year-old gentleman appears older than his stated age, does have a hard time giving a linear history, and is remains a little bit somnolent Objective Last Vital Signs Temp 37.3 C 05/03/24 07:15 Pulse 92 H 05/03/24 08:02 Resp 17 05/03/24 08:02 BP 155/98 H 05/03/24 08:02 Pulse Ox 92 05/03/24 08:02 Laboratory Results - last 24 hr 05/02/24 05/02/24 05/02/24 10:38 11:33 12:10 WBC RBC Hgb Hct MCV MCH MCHC RDW Plt Count MPV Immature Gran % Neutrophils % Lymphocytes % Monocytes % Eosinophils % Basophils % Nucleated RBC % Absolute Neutrophils Absolute Lymphocytes Absolute Monocytes Absolute Eosinophils Absolute Basophils VBG pH 7.41 VBG pCO2 49 VBG pO2 58 VBG HCO3 31 H VBG Total CO2 32 H VBG O2 Saturation 89 VBG Base Excess 6 H Sodium 143 Potassium 3.9 Chloride 101 Carbon Dioxide 38.9 H Anion Gap 3.1 BUN 16 Creatinine 0.9 Est GFR (CKD-EPI 2020) 104.05 Glucose 139 H Calcium 8.3 L Magnesium 2.2 Total Bilirubin 0.55 AST 60 H ALT 49 Alkaline Phosphatase 67 Troponin I < 4 Total Protein 7.7 Albumin 4.0 Urine Color Yellow Urine Clarity Clear Urine pH 5.5 Ur Specific [place] 1.025 Urine Protein Negative Urine Ketones Negative Urine Blood Negative Urine Nitrite Negative Urine Bilirubin Negative Urine Urobilinogen 0.2 Ur Leukocyte Esterase Negative Urine Glucose Negative Urine Opiates Screen Negative Urine Methadone Screen Positive A Ur Barbiturates Screen Negative Ur Tricyclics Screen Negative Ur Amphetamines Screen Negative U Benzodiazepines Scrn Negative Urine Cocaine Screen Negative Ur THC Screen Positive A Ethyl Alcohol 404.7 H 05/02/24 05/03/24 13:35 05:20 WBC 6.14 RBC 4.57 Hgb 14.6 D Hct 43.7 MCV 96 H MCH 31.9 MCHC 33.4 RDW 14.6 H Plt Count 156 MPV 9.9 Immature Gran % 0.2 Neutrophils % 40.3 Lymphocytes % 39.3 Monocytes % 12.9 Eosinophils % 6.0 Basophils % 1.3 Nucleated RBC % 0.0 Absolute Neutrophils 2.48 Absolute Lymphocytes 2.41 Absolute Monocytes 0.79 Absolute Eosinophils 0.37 Absolute Basophils 0.08 VBG pH VBG pCO2 VBG pO2 VBG HCO3 VBG Total CO2 VBG O2 Saturation VBG Base Excess Sodium 142 Potassium 4.5 Chloride 103 Carbon Dioxide 33.0 H Anion Gap 6.0 BUN 16 Creatinine 0.7 Est GFR (CKD-EPI 2020) 112.25 Glucose 83 Calcium 7.6 L Magnesium Total Bilirubin 0.84 AST 165 H ALT 115 H Alkaline Phosphatase 52 Troponin I Cancelled Total Protein 5.8 L Albumin 3.0 L Urine Color Urine Clarity Urine pH Ur Specific [place] Urine Protein Urine Ketones Urine Blood Urine Nitrite Urine Bilirubin Urine Urobilinogen Ur Leukocyte Esterase Urine Glucose Urine Opiates Screen Urine Methadone Screen Ur Barbiturates Screen Ur Tricyclics Screen Ur Amphetamines Screen U Benzodiazepines Scrn Urine Cocaine Screen Ur THC Screen Ethyl Alcohol 111.7 H PAWSS Have you Been Recently Intoxicated or Drunk Within the Last 30 days?: Yes Have you Ever Experienced Previous Episodes of Alcohol Withdrawal?: Yes Have you ever Experienced Withdrawal Seizures?: Yes Have you ever Experienced Delirium Tremens(DT)s?: Yes Have you ever undergone Alcohol Rehabilitation Treatment (i.e, inpt ot outpatient treatment programs)?: Yes Have you ever Experienced Blackouts?: Yes Have you ever Combined Alcohol with other Downers within the last 90 days?: Unable to Obtain Have you ever Combined Alcohol with any other Substance of Abuse during the last 90 days?: Yes Positive Blood Alcohol level on Presentation? [PCS.BAL]: Unable to Obtain Evidence of Increased Autonomic Activity (i.e. HR>120, tremor, sweating, agitation, nausea)?: No Result: 8 Time Spent with Patient Time Spent with Patient: 25-34 minutes Time was spent: preparing to see the patient(eg.review tests), obtaining and/or reviewing separately otained hiistory, ordering medications,tests, procedures, referring, communicating with other health animal caretaker, indepentently interpreting results, counseling the patient and care coordination
--- NOTE | 2024-05-03 12:39 | W.PC.ACHO ---
Registration Status: Primary Language: Preferred Language: ED Information & Data Chief Complaint GenMedical 05/02/24 10:47 Chief Complaint GenMedical 05/02/24 10:45 Triage Note Pt arrives via EMS d/t SOB + 05/02/24 10:21 wheezing noted per EMS. Pt confused per EMS. Pt was admitted at [facility] [place] approx. 1 week ago. Pt is seen by [facility] [place] pulmonology; hx of COPD Pt states he had approx. a half gallon of liquor BGL = 123 Medical / Surgical History (Last Reviewed 04/11/24 @ 12:07 by Pearl Kamara NP) Palliative care patient Compression fracture of T8 vertebra Constipation due to pain medication Hypercholesterolemia Hx of substance abuse Chronic hepatitis Opiate withdrawal Hypoxia Pulmonary nodule Chronic respiratory failure Palliative care patient Alcohol withdrawal seizure COPD (chronic obstructive pulmonary disease) Narcotic abuse Asthma (Last Reviewed 04/11/24 @ 12:07 by Pearl Kamara NP) Status post below-knee amputation S/P ORIF (open reduction internal fixation) fracture Hx of BKA History of tonsillectomy History of hand surgery Most Recent Vital Signs Temperature 37.3 C 05/03/24 07:15 Temperature Source Temporal Artery Scan 05/03/24 07:15 Pulse 85 05/03/24 12:02 Pulse 92 H 05/03/24 12:02 Respiratory Rate 15 05/03/24 12:02 Blood Pressure 152/98 H 05/03/24 12:02 Blood Pressure Mean 115 05/03/24 12:02 Blood Pressure Position Supine 05/02/24 16:00 Pulse Oximetry 95 05/03/24 10:00 Respiratory End-tidal CO2 42 05/02/24 10:50 Oxygen Delivery Method Nasal Cannula 05/03/24 07:57 Oxygen Flow Rate 2 05/03/24 07:57 Fraction of Inspired Oxygen (FIO2) 25 05/02/24 19:44 Pain Level 10 05/02/24 15:37 Allergies Penicillins Allergy (Severe, Unverified 05/02/24 10:36) Anaphylaxsis prednisone Adverse Reaction (Verified 05/02/24 10:36) Anxiety Precautions Isolation Standard precaution 05/02/24 10:47 Active Medications Generic Name Dose Route Start Last Admin Trade Name Freq PRN Reason Stop Dose Admin Buspirone HCl 15 mg 05/02/24 20:00 05/03/24 07:22 Buspirone 5 Mg Tab PO 15 mg TID ADOLFO Administration Duloxetine HCl 60 mg 05/03/24 08:30 05/03/24 08:52 Duloxetine 30 Mg Cap PO 60 mg DAILY ADOLFO Administration Enoxaparin Sodium 40 mg 05/02/24 18:00 05/02/24 17:09 Enoxaparin 40 Mg/0.4 Ml Syr SC 40 mg Q24H ADOLFO Administration Folic Acid 1 mg 05/03/24 08:30 05/03/24 08:52 Folic Acid 1 Mg Tab PO 05/09/24 08:31 1 mg QAM ADOLFO Administration Sodium Chloride 1,000 mls @ 125 mls/hr 05/02/24 16:09 05/03/24 09:44 Saline 1000ml Bag IV Infused INFUSION ADOLFO Infusion Ibuprofen 600 mg 05/02/24 16:09 05/03/24 07:22 Ibuprofen 600 Mg Tab PO 600 mg BID PRN PRN Administration Lisinopril 20 mg 05/03/24 08:30 05/03/24 08:52 Lisinopril 20 Mg Tab PO 20 mg DAILY ADOLFO Administration Methadone HCl 155 mg 05/03/24 08:30 05/03/24 08:23 Methadone Liquid 10 Mg/Ml PO 155 mg DAILY [facility] Administration Mometasone Furoate 2 puff 05/02/24 20:00 05/03/24 07:53 Mometasone 220 Mcg 14 Dose Inhaler IH 2 inh BID [facility] Administration Multivitamins 1 tab 05/03/24 08:30 05/03/24 08:52 Multivitamin Tab PO 05/09/24 08:31 1 tab QAM ADOLFO Administration Phenobarbital Sodium 130 mg 05/02/24 18:27 05/03/24 08:52 Phenobarbital 130 Mg/Ml Vial IVP 130 mg DIRECTED PRN Administration for mild anxiety/agitation Pregabalin 200 mg 05/02/24 20:00 05/03/24 07:22 Pregabalin 100 Mg Cap PO 200 mg TID [facility] Administration Quetiapine Fumarate 300 mg 05/02/24 20:00 05/02/24 19:53 Quetiapine 100 Mg Tab PO 300 mg HS ADOLFO Administration Senna/Docusate Sodium 1 tab 05/02/24 20:00 05/03/24 08:47 Sennosides/Docusate Sodium Tab PO Not Given BID [facility] Sodium Chloride 0 ml 05/02/24 10:35 05/02/24 19:54 Normal Saline Flush 10 Ml Syr IVP 10 ml PRN PRN Administration Sodium Chloride 0 ml 05/02/24 20:00 05/03/24 07:22 Normal Saline Flush 10 Ml Syr IVP 10 ml BID ADOLFO Administration Thiamine HCl 100 mg 05/03/24 08:30 05/03/24 08:52 Thiamine 100 Mg Tab PO 05/09/24 08:31 100 mg QAM ADOLFO Administration Tiotropium [place]/Olodaterol 2 puff 05/03/24 08:30 05/03/24 07:54 Tiotropium/Olodaterol 10 Puff Inhaler IH 2 puffs DAILY ADOLFO Administration IV IV Catheter Type [Forearm] Peripheral IV IV Catheter Type [Upper arm] Peripheral IV IV Catheter Type [Right Saline Lock Antecubital] IV Catheter Gauge [Forearm] 20 IV Catheter Gauge [Upper arm] 18 IV Catheter Gauge [Right 18 Antecubital] Diagnostics 05/03/24 05/02/24 05/02/24 Range/Units 05:20 13:35 12:10 WBC 6.14 (4.4-10.8) 10^3/uL RBC 4.57 (4.36-5.78) 10^6/uL Hgb 14.6 D (13.5-17.5) g/dL Hct 43.7 (40.0-50.0) % MCV 96 H (80-95) fL MCH 31.9 (27.0-33.0) pg MCHC 33.4 (32.0-36.0) % RDW 14.6 H (11.8-14.1) % Plt Count 156 (130-400) 10^3/uL MPV 9.9 (8.0-11.0) fL Immature Gran % 0.2 % Neutrophils % 40.3 % Lymphocytes % 39.3 % Monocytes % 12.9 % Eosinophils % 6.0 % Basophils % 1.3 % Nucleated RBC % 0.0 (0.0-0.3) % Absolute Neutrophils 2.48 (1.2-6.7) 10^3/uL Absolute Lymphocytes 2.41 (1.2-3.4) 10^3/uL Absolute Monocytes 0.79 (0.1-0.8) 10^3/uL Absolute Eosinophils 0.37 (0.0-0.7) 10^3/uL Absolute Basophils 0.08 (0.0-0.2) 10^3/uL Sodium 142 (136-145) mmol/L Potassium 4.5 (3.5-5.1) mmol/L Chloride 103 (98-107) mmol/L Carbon Dioxide 33.0 H (21.0-32.0) mmol/L Anion Gap 6.0 (3-11) mmol/L BUN 16 (7-18) mg/dL Creatinine 0.7 (0.70-1.30) mg/dL Est GFR (CKD-EPI 2020) 112.25 (mL/min/1.73m2) Glucose 83 (74-106) mg/dL Calcium 7.6 L (8.5-10.1) mg/dL Total Bilirubin 0.84 (0.2-1.0) mg/dL AST 165 H (15-37) U/L ALT 115 H (16-63) U/L Alkaline Phosphatase 52 (46-116) U/L Troponin I Cancelled Total Protein 5.8 L (6.4-8.2) g/dL Albumin 3.0 L (3.4-5.0) g/dL Urine Opiates Screen Negative (Negative) Urine Methadone Screen Positive A (Negative) Ur Barbiturates Screen Negative (Negative) Ur Tricyclics Screen Negative (Negative) Ur Amphetamines Screen Negative (Negative) U Benzodiazepines Scrn Negative (Negative) Urine Cocaine Screen Negative (Negative) Ur THC Screen Positive A (Negative) Ethyl Alcohol 111.7 H (<10) mg/dL [id number] Documentation Fingerstick Glucose Start: 05/02/24 10:28 Freq: Status: Active Protocol: Activity Type Activity Date Activity User E-sign Co-sign Detail Recorded Client Recorded Date Recorded By Document 05/02/24 10:27 REILLY DAEMON(3) [id number] 05/02/24 10:28 REILLY DAEMON(4) Intake and Output - 24 Hour Total 05/02/24 10:18 thru 05/03/24 09:44 Intake Total 3800 Output Total 1200 Balance 2600 Weight 76.9 kg Intake: IV 3000 Oral 800 Output: Urine 1200 Other: Urine Color Dark Alix Urine Appearance Clear Urine Odor [place] Risk Assessment History of Falls Previous History 05/02/24 10:47 Contributing Factors Confusion,Unstable, 05/02/24 10:47 Impairments Ambulatory Aids Uses ambulatory device 05/02/24 10:47 Tubes/Lines W/no contributing factors 05/02/24 10:47 Gait Evaluation W/no contributing factors 05/02/24 10:47 Fall Total Score 59 05/02/24 10:47 Level of Risk Standard/Low Risk 05/02/24 10:47 Problems (Last Reviewed 04/11/24 @ 12:07 by Pearl Kamara NP) Intoxication with opioids (Acute) Alcohol intoxication (Acute) Acute alteration in mental status (Acute) Hepatitis C (Chronic) End stage COPD (Chronic) Psychological trauma history (Chronic) Hx of right BKA (Acute) Tobacco abuse (Chronic) HTN (hypertension) (Chronic) Alcohol abuse (Chronic) Polycythemia (Chronic) Opiate dependence (Acute) Notes 05/03/24 10:52 Respiratory by Marilyn Cole 05/03/24-Spoke with Rupali at [facility] about getting an Oxygen tank dropped off for when patient discharges. [facility] will get one to patient's room today Initialized on 05/03/24 10:52 - END OF NOTE v v v v v v v v v Sending and/or Receiving Nurses: Please use comment section below to note any information pertinent to the patient hand-off not included above. Information / Comments: Report from Rosalia at 1220 Report received from:
[2024-05-03] MEDS: Calcium Carbonate *TUMS* 500 MG CHEW PO (13:54)
[2024-05-03] MEDS: Acetaminophen 325 MG TAB PO (15:24)
[2024-05-03] MEDS: Nicotine 14 MG/24 HR PATCH TD (15:25)
[2024-05-03] MEDS: Enoxaparin 40 MG/0.4 ML SYR SC (18:44)
[2024-05-03] MEDS: Mylanta Suspension 30 ML CUP PO (18:44)
[2024-05-03] MEDS: QUEtiapine 100 MG TAB 300 MG PO (20:13)
[2024-05-04] VITALS (14 sets, daily range): BP systolic 81–198; BP diastolic 57–125; PULSE 64–82; RESP 12–17; TEMP 36–36.9; O2SAT 92–100
[2024-05-04] MEDS: Normal Saline 1,000 ML 125 ML IV (00:45)
[2024-05-04] MEDS: Calcium Carbonate *TUMS* 500 MG CHEW PO (04:38)
[2024-05-04] MEDS: Acetaminophen 325 MG TAB PO ×2 (04:39→18:10)
[2024-05-04] MEDS: Ibuprofen 600 MG TAB PO ×2 (06:23→20:17)
[2024-05-04 06:51] LABS: Abs Immature Grans 0.01 10^3/uL (0.0-0.06); Absolute Basophil Count 0.02 10^3/uL (0.0-0.2); Absolute Eosinophil Count 0.54 10^3/uL (0.0-0.7); Absolute Lymphocyte Count 1.96 10^3/uL (1.2-3.4); Absolute Monocyte Count 0.52 10^3/uL (0.1-0.8); Absolute Neutrophil Count 2.03 10^3/uL (1.2-6.7); Basophils % 0.4 %; Eosinophils % 10.6 %; HCT 38.5 % (40.0-50.0); HGB 13.2 g/dL (13.5-17.5); Immature Grans % 0.2 %; Lymphocytes % 38.6 %; MCH 31.5 pg (27.0-33.0); MCHC 34.3 % (32.0-36.0); MCV 92 fL (80-95); MPV 10.6 fL (8.0-11.0); Monocytes % 10.2 %; Platelet Count 161 10^3/uL (130-400); RBC 4.19 10^6/uL (4.36-5.78); RDW-SD 43.8 fL; WBC 5.08 10^3/uL (4.4-10.8)
[2024-05-04 07:07] LABS: ETHANOL BLOOD < 3.0 mg/dL (<10)
[2024-05-04 07:09] LABS: ALT 75 U/L (16-63); AST 84 U/L (15-37); Albumin 3.1 g/dL (3.4-5.0); Alkaline Phosphatase 62 U/L (46-116); Anion Gap 1.2 mmol/L (3-11); BUN 12 mg/dL (7-18); Bilirubin, Total 1.22 mg/dL (0.2-1.0); CO2 34.8 mmol/L (21.0-32.0); CREATININE 0.7 mg/dL (0.70-1.30); Calcium 7.8 mg/dL (8.5-10.1); Chloride 102 mmol/L (98-107); Estimated GFR 112.25 (mL/min/1.73m2); Glucose 102 mg/dL (74-106); Potassium 3.6 mmol/L (3.5-5.1); Sodium 138 mmol/L (136-145); Total Protein 6.2 g/dL (6.4-8.2)
[2024-05-04] MEDS: DULoxetine 30 MG CAP 60 MG PO (08:08)
[2024-05-04] MEDS: Multivitamin TAB 1 TAB PO (08:08)
[2024-05-04] MEDS: Sennosides/Docusate Sodium TAB 1 TAB PO ×2 (08:08→20:17)
[2024-05-04] MEDS: Folic Acid 1 MG TAB PO (08:08)
[2024-05-04] MEDS: Methadone Liquid 10 MG/ML 155 MG PO (08:08)
[2024-05-04] MEDS: Pregabalin 100 MG CAP 200 MG PO ×3 (08:08→20:18)
[2024-05-04] MEDS: busPIRone 5 MG TAB 15 MG PO ×3 (08:08→20:17)
[2024-05-04] MEDS: Thiamine 100 MG TAB PO (08:09)
[2024-05-04] MEDS: Lisinopril 20 MG TAB PO (08:09)
[2024-05-04] MEDS: Mometasone 220 MCG 14 DOSE INHALER 2 PUFF IH ×2 (08:16→20:11)
[2024-05-04] MEDS: Tiotropium/Olodaterol 10 PUFF INHALER 2 PUFF IH (08:16)
--- NOTE | 2024-05-04 12:40 | PHA.REVIEW2 ---
Pharmacy Admission Review Admission Clinical Review Admission Pharmacy Review: Intoxication with opioids (Acute) Alcohol intoxication (Acute) Acute alteration in mental status (Acute) Hx of right BKA (Acute) Opiate dependence (Acute) Penicillins Allergy (Severe, Unverified 05/02/24 10:36) Anaphylaxsis prednisone Adverse Reaction (Verified 05/02/24 10:36) Anxiety Resuscitation Status Full Code Height 5 ft 8 in Weight 76.9 kg Pharmacy Admission Review Renal Dosing Renal Dosing: BUN 12 mg/dL (7-18) 05/04/24 06:30 Creatinine 0.7 mg/dL (0.70-1.30) 05/04/24 06:30 Medications needing adjustments: Reviewed (CrCl 137 mL/min) List of meds needing interventions: Current medications are okay Anticoagulation Anticoagulation: Hgb 13.2 g/dL (13.5-17.5) L 05/04/24 06:30 Hct 38.5 % (40.0-50.0) L 05/04/24 06:30 Plt Count 161 10^3/uL (130-400) 05/04/24 06:30 Creatinine 0.7 mg/dL (0.70-1.30) 05/04/24 06:30 DVT Prophylaxis: Reviewed (Hgb decreased from 14.6) Medications: Enoxaparin (40mg daily) Opiate Usage Evaluate Pain Scale/Pains Meds: Reviewed (methadone 155mg daily) Scheduled Bowel Reg ordered if on Opiates?: No (PRN docusate/Miralax) Relevant Labs Relevant Labs: Sodium 138 mmol/L (136-145) 05/04/24 06:30 Potassium 3.6 mmol/L (3.5-5.1) 05/04/24 06:30 Chloride 102 mmol/L (98-107) 05/04/24 06:30 Magnesium 2.2 mg/dL (1.8-2.4) 05/02/24 10:38 Electrolytes, C-Reactive P, ESR: Reviewed (AST/ALT decreased from 165/115 to 84/75) Cardiac Review Cardiac Review: Troponin I Cancelled 05/02/24 13:35 Blood Pressure 198/111 1115 Blood Pressure 154/110 0732 Blood Pressure 180/111 0300 BP, HR, EF%: Reviewed (HR WNL) List meds needing interventions: Has order for lisinopril 20mg daily QTc Review QTc: Reviewed (466 from 05/02/23) IV to PO Switch IV Medications: Reviewed Home Meds Home Med List reviewed: Intervened Relevent Home Meds Not ordered & why?: Flovent, lorazepam (PRN - has order for phenobarbital for alcohol withdrawal), testosterone (f0cmtbq), Anoro Ellipta Asked nursing to clarify home dose of lisinopril and quetiapine. Home med list says 20mg daily and 300mg daily, but based on fill history they are taking 40mg daily and 400mg daily. Waiting to hear back. Current Meds Current Medication Order Review: Reviewed Comments: On phenobarbital for alcohol withdrawal CIWA 19 today at 1141 SS: 1026mg HS: 1368mg Patient did not receiving any loading doses Has received total of 920mg so far (last dose 200mg today at 1143) Changed IV ED to admission access
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
[2024-05-04] MEDS: hydrALAZINE 20 MG/ML VIAL 10 MG IVP ×2 (13:28→18:10)
[2024-05-04] MEDS: Mylanta Suspension 30 ML CUP PO (18:09)
[2024-05-04] MEDS: Normal Saline Flush 10 ML SYR IVP ×2 (18:09→22:47)
[2024-05-04] MEDS: Enoxaparin 40 MG/0.4 ML SYR SC (18:10)
[2024-05-04] MEDS: DEXTROSE 5%-0.9% SALINE 1,000 ML 80 ML IV (18:23)
[2024-05-04] MEDS: QUEtiapine 100 MG TAB 400 MG PO (20:17)
[2024-05-04] MEDS: Metoprolol 25 MG TAB PO (20:18)
[2024-05-04] MEDS: LORazepam 1 MG TAB PO (20:18)
[2024-05-04] MEDS: PHENobarbital 130 MG/ML VIAL IVP (22:47)
[2024-05-05] VITALS (12 sets, daily range): BP systolic 109–169; BP diastolic 76–114; PULSE 57–85; RESP 14–19; TEMP 36.4–37.1; O2SAT 93–97
[2024-05-05] MEDS: Acetaminophen 325 MG TAB PO ×3 (01:03→20:53)
[2024-05-05] MEDS: Mylanta Suspension 30 ML CUP PO ×2 (01:04→21:20)
[2024-05-05] MEDS: Ibuprofen 600 MG TAB PO ×2 (03:39→20:53)
[2024-05-05 06:42] LABS: Abs Immature Grans 0.01 10^3/uL (0.0-0.06); Absolute Basophil Count 0.03 10^3/uL (0.0-0.2); Absolute Eosinophil Count 0.66 10^3/uL (0.0-0.7); Absolute Lymphocyte Count 2.34 10^3/uL (1.2-3.4); Absolute Neutrophil Count 2.43 10^3/uL (1.2-6.7); Basophils % 0.5 %; Eosinophils % 10.9 %; HCT 41.3 % (40.0-50.0); HGB 14.3 g/dL (13.5-17.5); Immature Grans % 0.2 %; Lymphocytes % 38.6 %; MCH 32.3 pg (27.0-33.0); MCHC 34.6 % (32.0-36.0); MCV 93 fL (80-95); MPV 10.6 fL (8.0-11.0); Monocytes % 9.9 %; Neutrophils % 39.9 %; Platelet Count 160 10^3/uL (130-400); RBC 4.43 10^6/uL (4.36-5.78); RDW-SD 44.8 fL; WBC 6.07 10^3/uL (4.4-10.8)
[2024-05-05 07:04] LABS: ALT 52 U/L (16-63); AST 45 U/L (15-37); Albumin 3.3 g/dL (3.4-5.0); Alkaline Phosphatase 67 U/L (46-116); BUN 12 mg/dL (7-18); Bilirubin, Total 0.63 mg/dL (0.2-1.0); CREATININE 0.8 mg/dL (0.70-1.30); Chloride 100 mmol/L (98-107); Estimated GFR 107.82 (mL/min/1.73m2); Glucose 129 mg/dL (74-106); PHENOBARBITAL 22.3 ug/mL (15.0-40.0); Potassium 3.4 mmol/L (3.5-5.1); Sodium 136 mmol/L (136-145); Total Protein 6.4 g/dL (6.4-8.2)
[2024-05-05] MEDS: Methadone Liquid 10 MG/ML 155 MG PO (08:04)
[2024-05-05] MEDS: Mometasone 220 MCG 14 DOSE INHALER 2 PUFF IH ×2 (08:06→20:47)
[2024-05-05] MEDS: Tiotropium/Olodaterol 10 PUFF INHALER 2 PUFF IH (08:07)
[2024-05-05] MEDS: busPIRone 5 MG TAB 15 MG PO ×3 (08:30→20:53)
[2024-05-05] MEDS: LORazepam 1 MG TAB PO ×3 (08:30→20:54)
[2024-05-05] MEDS: Pregabalin 100 MG CAP 200 MG PO ×3 (08:30→20:52)
[2024-05-05] MEDS: DULoxetine 30 MG CAP 60 MG PO (08:30)
[2024-05-05] MEDS: Multivitamin TAB 1 TAB PO (08:31)
[2024-05-05] MEDS: Metoprolol 25 MG TAB PO ×2 (08:31→20:53)
[2024-05-05] MEDS: Lisinopril 20 MG TAB 40 MG PO (08:31)
[2024-05-05] MEDS: Thiamine 100 MG TAB PO (08:31)
[2024-05-05] MEDS: Sennosides/Docusate Sodium TAB 1 TAB PO ×2 (08:31→20:54)
[2024-05-05] MEDS: Folic Acid 1 MG TAB PO (08:31)
[2024-05-05] MEDS: Normal Saline Flush 10 ML SYR IVP ×2 (08:32→20:54)
[2024-05-05] MEDS: DEXTROSE 5%-0.9% SALINE 1,000 ML 80 ML IV ×2 (10:48→23:54)
--- NOTE | 2024-05-05 16:19 | PGE_ITS ---
Date of Service Date of service: 05/05/24 Time of Service: 17:10 Assessment and Plan Assessment and plan (1) Alcohol withdrawal: Status: Acute Assessment and plan: -Patient is on the phenobarbital protocol and thiamine folic acid and multivitamins have been ordered as well. -PT does have a history of alcohol w/d seizures. -last Phenobarb given ~22:00 05/04 -patient continues to score on CIWA for nursing staff, though does tremors, visual signs of anxiety or discomfort have not been seen when observing patient from outside of his room (2) Tobacco abuse: Status: Chronic Assessment and plan: Recommend completing total cessation will add nicotine patch 1.4.25 Nicoderm at 14mg daily (3) Psychological trauma history: Status: Chronic Assessment and plan: Noted (4) Opiate dependence: Status: Acute Assessment and plan: Continue with his home methadone use (5) Hepatitis C: Status: Chronic Assessment and plan: -Continue with outpatient follow-up at the discretion of his PCP (6) Polycythemia: Status: Chronic Assessment and plan: -Most likely due to his underlying tobacco use disorder will monitor -Resolved with gentle hydration (7) Hx of right BKA: Status: Acute Assessment and plan: Noted (8) COPD with acute exacerbation: Status: Resolved Assessment and plan: -continue home DuoNeb and Combivent (9) HTN (hypertension): Status: Chronic Assessment and plan: -Patient is on an BEATRIZ inhibitor and will monitor his blood pressures. Would be hesitant to change his medication and this period of time where he might be withdrawing. -added hydralazine prn and will also add low dose BB and monitor for improvement Subjective Subjective Interval history since last seen: Patient states that his been withdrawing all day and has been complaining of abdominal pain similar to when he previously had pancreatitis. However, slight patient send he has not eaten all day it has been well-documented that he has seen all of his meals, and upon entering his room he was about to eat dinner but stopped eating when he saw me enter. He also states he has been withdrawing all day though it has been observed from outside the patient's room that shortly after complaining of anxiety and shakes that once nurse exits the room patient's symptoms seemed to resolve. Exam Narrative Exam Narrative: Chronically ill-appearing gentleman appears older than stated age, and no acute distress when observed from outside the room, but complains of abdominal pain when entering the room and asking questions, heart regular rhythm, lungs clear to auscultation bilaterally, abdomen difficult to accurately assess as the patient tenses immediately before palpation Objective Last Vital Signs Temp 98.2 F 05/05/24 15:30 Pulse 85 05/05/24 15:30 Resp 18 05/05/24 15:30 BP 144/89 H 05/05/24 15:30 Pulse Ox 95 05/05/24 15:30 Laboratory Results - last 24 hr 05/05/24 06:10 WBC 6.07 RBC 4.43 Hgb 14.3 Hct 41.3 MCV 93 MCH 32.3 MCHC 34.6 RDW 13.0 Plt Count 160 MPV 10.6 Immature Gran % 0.2 Neutrophils % 39.9 Lymphocytes % 38.6 Monocytes % 9.9 Eosinophils % 10.9 Basophils % 0.5 Nucleated RBC % 0.0 Absolute Neutrophils 2.43 Absolute Lymphocytes 2.34 Absolute Monocytes 0.60 Absolute Eosinophils 0.66 Absolute Basophils 0.03 Sodium 136 Potassium 3.4 L Chloride 100 Carbon Dioxide 32.0 Anion Gap 4.0 BUN 12 Creatinine 0.8 Est GFR (CKD-EPI 2020) 107.82 Glucose 129 H Calcium 8.0 L Total Bilirubin 0.63 AST 45 H ALT 52 Alkaline Phosphatase 67 Total Protein 6.4 Albumin 3.3 L Phenobarbital 22.3 PAWSS Have you Been Recently Intoxicated or Drunk Within the Last 30 days?: Yes Have you Ever Experienced Previous Episodes of Alcohol Withdrawal?: Yes Have you ever Experienced Withdrawal Seizures?: Yes Have you ever Experienced Delirium Tremens(DT)s?: Yes Have you ever undergone Alcohol Rehabilitation Treatment (i.e, inpt ot outpatient treatment programs)?: Yes Have you ever Experienced Blackouts?: Yes Have you ever Combined Alcohol with other Downers within the last 90 days?: Unable to Obtain Have you ever Combined Alcohol with any other Substance of Abuse during the last 90 days?: Yes Positive Blood Alcohol level on Presentation? [PCS.BAL]: Unable to Obtain Evidence of Increased Autonomic Activity (i.e. HR>120, tremor, sweating, agitation, nausea)?: No Result: 8 Time Spent with Patient Time Spent with Patient: >50 minutes Time was spent: preparing to see the patient(eg.review tests), obtaining and/or reviewing [facility], ordering medications,tests, procedures, referring, communicating with other health care support representative, indepentently interpreting results, counseling the patient and care coordination
[2024-05-05 17:01] LABS: Lipase 92 U/L (<78)
[2024-05-05] MEDS: Ketorolac 10 MG TAB PO (17:51)
[2024-05-05] MEDS: Enoxaparin 40 MG/0.4 ML SYR SC (18:11)
[2024-05-05] MEDS: QUEtiapine 100 MG TAB 400 MG PO (20:53)
[2024-05-05] MEDS: Calcium Carbonate *TUMS* 500 MG CHEW PO (21:18)
[2024-05-06 06:59] LABS: HGB 12.8 g/dL (13.5-17.5); MCH 32.2 pg (27.0-33.0); MCHC 34.6 % (32.0-36.0); MCV 93 fL (80-95); MPV 10.9 fL (8.0-11.0); Platelet Count 128 10^3/uL (130-400); RBC 3.97 10^6/uL (4.36-5.78); RDW 13.2 % (11.8-14.1); RDW-SD 45.3 fL
[2024-05-06 07:35] LABS: ALT 43 U/L (16-63); AST 29 U/L (15-37); Albumin 3.1 g/dL (3.4-5.0); Alkaline Phosphatase 65 U/L (46-116); Anion Gap 2.4 mmol/L (3-11); BUN 11 mg/dL (7-18); Bilirubin, Total 0.23 mg/dL (0.2-1.0); CO2 31.6 mmol/L (21.0-32.0); CREATININE 0.7 mg/dL (0.70-1.30); Chloride 104 mmol/L (98-107); Estimated GFR 112.25 (mL/min/1.73m2); Glucose 103 mg/dL (74-106); Lipase 83 U/L (<78); Potassium 3.9 mmol/L (3.5-5.1); Sodium 138 mmol/L (136-145); Total Protein 6.1 g/dL (6.4-8.2)
[2024-05-06 07:45] LABS: Calcium 8.1 mg/dL (8.5-10.1)
[2024-05-06 07:47] VITALS: BP 175/106; PULSE 71; RESP 20; TEMP 37.3; O2SAT 94
[2024-05-06] MEDS: Multivitamin TAB 1 TAB PO (08:19)
[2024-05-06] MEDS: Sennosides/Docusate Sodium TAB 1 TAB PO (08:19)
[2024-05-06] MEDS: Pregabalin 100 MG CAP 200 MG PO ×2 (08:19→13:02)
[2024-05-06] MEDS: DULoxetine 30 MG CAP 60 MG PO (08:19)
[2024-05-06] MEDS: Thiamine 100 MG TAB PO (08:19)
[2024-05-06] MEDS: Lisinopril 20 MG TAB 40 MG PO (08:19)
[2024-05-06] MEDS: busPIRone 5 MG TAB 15 MG PO ×2 (08:19→13:02)
[2024-05-06] MEDS: LORazepam 1 MG TAB PO ×2 (08:19→13:02)
[2024-05-06] MEDS: Folic Acid 1 MG TAB PO (08:19)
[2024-05-06] MEDS: Metoprolol 25 MG TAB PO (08:19)
[2024-05-06] MEDS: Methadone Liquid 10 MG/ML 155 MG PO (08:20)
[2024-05-06] MEDS: Normal Saline Flush 10 ML SYR IVP (08:20)
[2024-05-06 08:23] VITALS: BP 143/113
[2024-05-06] MEDS: Tiotropium/Olodaterol 10 PUFF INHALER 2 PUFF IH (09:12)
[2024-05-06] MEDS: Mometasone 220 MCG 14 DOSE INHALER 2 PUFF IH (09:12)
[2024-05-06 09:14] VITALS: O2SAT 91
--- NOTE | 2024-05-06 09:20 | PDOC.CMPRO ---
Date of service: 05/06/24 Time of Service: 09:21 Care Management Progress Note Discharge Potential Discharge Needs: PCP F/U Appt Anticipated Barriers to Discharge: None Identified Patient/Family Education Needs: Review discharge instructions, discuss Ask Me Three Transportation: RCT Plan: Anticipate Edd will be discharged home with no new services when medically stable. He will follow up with his community providers and plan of care and transport via RCT. CM will follow. Social Determinants of Health Screening Will the Patient Participate in the Screening?: Unable to obtain In the past 12 months, have you had to go without electric, gas, oil or water in your home?: choose not to answer Have you or anyone in your house had to go without enough food to eat?: choose not to answer Has lack of transportation kept you from medical appointments or from doing things needed for daily living?: choose not to answer Has anyone in your life made you feel unsafe or unsupported?: choose not to answer How hard is it for you to pay for the very basics like food, housing, medical care, and heating? Would you say it is:: Somewhat hard Do you want help finding or keeping work or a job?: I do not need or want help If for any reason you need help with day-to-day activities such as bathing, preparing meals, shopping, managing finances, etc., do you get the help you need?: I need a lot more help How often do you feel lonely or isolated from those around you?: Never Do you speak a language other than Slovenian at home?: No Does the patient want assistance with any of the above?: No Health Related Social Needs Health related social needs: material hardship(utilities) (Z59.12), problems related to housing/economic circumstances (Z59.89) and problems with daily activities (Z73.9)
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
[2024-05-06 11:41] VITALS: BP 143/101; PULSE 63; RESP 20; TEMP 36.8; O2SAT 94
--- NOTE | 2024-05-06 17:50 | CMDISCH_ITS ---
Date of service: 05/06/24 Time of Service: 17:50 LACE Index Scoring Tool Questions: Length of Stay (in days): 4 - 6 Was the patient admitted via the E.D.?: Yes Comorbidities: Chronic Pulmonary Disease and Liver or Renal Disease E.D. Visits: 3 Answers: Total Score: 15 Risk of Readmission: High Risk Care Management Discharge Plan Reason for Hospitalization: mental status change Discharge Plan: Edd will be discharged home with no new services . He will follow up with his PCP and plan of care and transport via [facility] coordinated by [facility]. Edd was provided with a Last Dose Letter by [facility] to remain compliant with requirements from [facility]. Patient/Family Education Needs: Review discharge instructions, limitations, follow up plan discuss and Ask Me Three Services Needed at Discharge: Transportation SDOH Health Related Social Needs: Health related social needs material hardship(utilitie s) (Z59.12), problem s related to housing/economic circumstances (Z59.89), problems with daily activities (Z73.9)
== END 2024-05-06 13:04 | disposition home or self-care (01) | DRG 897 ==
LOC: ER 11:07 → ICU 16:03 → MS 05-03 12:48
PROVIDERS: Family Medicine; Admitting Provider Hospitalist; Emergency Provider Physician Assistant; PCP Family Medicine; Visit Provider Hospitalist
DX: F10.139 Alcohol abuse with withdrawal, unspecified; J44.1 Chronic obstructive pulmonary disease with (acute) exacerbation; J96.10 Chronic respiratory failure, unspecified whether with hypoxia or hypercapnia; J98.11 Atelectasis; Z59.12 Inadequate housing utilities; F11.20 Opioid dependence, uncomplicated; D75.1 Secondary polycythemia; Z89.511 Acquired absence of right leg below knee; I10 Essential (primary) hypertension; G40.909 Epilepsy, unspecified, not intractable, without status epilepticus; Z55.0 Illiteracy and low-level literacy; E78.00 Pure hypercholesterolemia, unspecified; R91.1 Solitary pulmonary nodule; B18.2 Chronic viral hepatitis C; F17.210 Nicotine dependence, cigarettes, uncomplicated; Z62.819 Personal history of unspecified abuse in childhood; Y90.8 Blood alcohol level of 240 mg/100 ml or more; R10.9 Unspecified abdominal pain; F10.129 Alcohol abuse with intoxication, unspecified; Z59.89 Other problems related to housing and economic circumstances; Z73.9 Problem related to life management difficulty, unspecified
CPT/HCPCS: 00123; 36415; 36416; 80053; 80307; 82550; 82805; 82962; 83690; 85027; 87637; 93005; 94640; 96361; 96374; 96375; 96376; 97162; 97530; 99285; J1650; 70450; 71045; 71046; 80184; 80320; 80329; 81003; 83605; 83735; 84484; 85025; 93010; 94664; 94760; 99222; 99232; 99233; 99239; J0360; J0780; J1200; J2310; J2560; J7042; J7620

== ENCOUNTER 2024-05-24 05:52 | Inpatient (IN) | payer MEDICARE, MEDICAID, SELFPAY ==
[2024-05-24] VITALS (29 sets, daily range): BP systolic 159–194; BP diastolic 90–107; PULSE 64–101; RESP 2–20; TEMP 36.7–36.9; O2SAT 2–100
--- NOTE | 2024-05-24 05:45 | RT.EKG_ITS ---
APPROVED REPORT Exam: Resting ECG Reason for Exam: cHEST PAIN Patient Location: E HR:90 bpm ECG Measurements Heart Rate 90 AXIS AZ 129 P 87 QRSd 101 QRS 89 QT 369 T 67 QTc 453 Conclusion Sinus rhythm...normal P axis, V-rate 60- [address] segment or T wave abnormalities to suggest occlusive TN
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
[2024-05-24] MEDS: Metoprolol 25 MG TAB PO ×2 (06:40→20:12)
[2024-05-24] MEDS: Albuterol/Ipratropium 3 ML UPD VIAL UPD ×6 (06:40→20:43)
[2024-05-24] MEDS: LORazepam 1 MG TAB PO ×2 (06:40→17:59)
[2024-05-24] MEDS: methylPREDNISolone SUCC 125 MG VIAL IVP (06:41)
[2024-05-24 07:23] LABS: HCT 37.3 % (40.0-50.0); HGB 13.2 g/dL (13.5-17.5); MCH 32.4 pg (27.0-33.0); MCHC 35.4 % (32.0-36.0); MCV 92 fL (80-95); MPV 11.3 fL (8.0-11.0); Platelet Count 118 10^3/uL (130-400); RBC 4.07 10^6/uL (4.36-5.78); RDW 13.8 % (11.8-14.1); RDW-SD 46.6 fL; WBC 2.86 10^3/uL (4.4-10.8)
[2024-05-24 07:24] LABS: COVID-19 PCR Negative (Negative); Influenza A PCR Negative (Negative); Influenza B PCR Negative (Negative); RSV PCR Negative (Negative)
[2024-05-24 07:26] LABS: Source Nasopharynx
--- NOTE | 2024-05-24 07:30 | DI.RAD_ITS ---
Exam(s) XR CHEST 2V PA LATERAL EXAM: XR CHEST 2V PA LATERAL CLINICAL HISTORY: sob. TECHNIQUE: 2D digital imaging was performed. COMPARISON: CR XR CHEST 2V PA LATERAL from 05/02/2024 FINDINGS: 2 views: Heart size is normal. The mediastinum is not widened. Platelike atelectasis in both lung bases. Also platelike atelectasis in the superior segment of the right lower lobe. A mild increased markings in the mid right lung field. There are no pleural effus ions. No pulmonary edema. Bilateral hyperinflation noted Small benign granulomas are again noted laterally in the left lung. IMPRESSION: Bilateral atelectasis.Possible mild infiltrate right mid-lower lung field. DATA REPOSITORY: RADIATION DOSE DELIVERED:
--- NOTE | 2024-05-24 07:46 | DI.VRAD_ITS ---
PROCEDURE INFORMATION: Exam: XR Chest Exam date and time: 05/24/2024 7:32 AM Age: 49 years old Clinical indication: Shortness of breath TECHNIQUE: Imaging protocol: Radiologic exam of the chest. Views: 2 views. COMPARISON: CR XR CHEST 2V PA LATERAL 05/02/2024 2:45 PM FINDINGS: Lungs: Horizontal basilar linear lung markings are seen, improved from 05/02/2024. Peripheral left lower lobe nodular opacities are seen. Pleural spaces: Unremarkable. No pleural effusion. No pneumothorax. Heart/Mediastinum: Unremarkable. No cardiomegaly. Bones/joints: Unremarkable. IMPRESSION: Basilar lung findings which are nonspecific and can be seen in infection, inflammation, edema. Dictated and Authenticated by: Mirza Mejia MD. Ordering:BRENDA Nam MD
[2024-05-24 07:57] LABS: Absolute Eosinophil Count 0.03 10^3/uL (0.0-0.7); Absolute Lymphocyte Count 0.97 10^3/uL (1.2-3.4); Absolute Monocyte Count 0.23 10^3/uL (0.1-0.8); Atypical Lymphocytes % 6 %; Bands % 1 %
[2024-05-24 07:58] LABS: Absolute Basophil Count 0.03 10^3/uL (0.0-0.2); Diff Comment Manual Differential; RBC Morphology Normal
[2024-05-24 08:14] LABS: PTT Activated 26.1 sec (20.6-30.2); Prothrombin Time 10.3 sec (9.1-11.1)
[2024-05-24 08:26] LABS: ALT 704 U/L (16-63); AST 79 U/L (15-37); Albumin 3.9 g/dL (3.4-5.0); Alkaline Phosphatase 59 U/L (46-116); Anion Gap 3.7 mmol/L (3-11); BUN 6 mg/dL (7-18); CO2 34.3 mmol/L (21.0-32.0); CREATININE 0.8 mg/dL (0.70-1.30); Calcium 9.2 mg/dL (8.5-10.1); Chloride 99 mmol/L (98-107); Estimated GFR 107.15 (mL/min/1.73m2); Glucose 144 mg/dL (74-106); Magnesium 1.8 mg/dL (1.8-2.4); NT-proBNP 72 pg/mL (<300); Potassium 3.7 mmol/L (3.5-5.1); Sodium 137 mmol/L (136-145); Total Protein 7.2 g/dL (6.4-8.2); Troponin I 6 ng/L (<or=76)
[2024-05-24 08:40] LABS: D-Dimer 235 ng/mlFEU (<500)
[2024-05-24] MEDS: levoFLOXacin 750 MG/150 ML BAG 100 MG IVPB (08:49)
[2024-05-24] MEDS: Ibuprofen 600 MG TAB PO (08:50)
[2024-05-24] MEDS: Lisinopril 20 MG TAB 40 MG PO (08:50)
[2024-05-24] MEDS: Lidocaine 5% Patch 1 PATCH TP ×2 (08:50→17:59)
--- NOTE | 2024-05-24 09:06 | W.EDPROG ---
Date of service: 05/24/24 Time of Service: 09:06 Medical Decision Making Care was signed out by Dr. Donaldson, please see her documentation regarding initial ED presentation and course. Patient received Solu-Medrol and 3 DuoNeb treatments prior to my evaluation. Patient is on his home supplemental oxygen at 3 L. He is being started on Levaquin IV. I obtained and reviewed outside hospital record from [facility]: Patient was admitted on 05/19/2024 for influenza and COPD exacerbation. He was discharged on 05/23/2024. He had completed 5-day course of azithromycin as well as Tamiflu. On my assessment: Patient is saturating in the low 90s. He continues to complain of shortness of breath. Patient has bilateral expiratory wheeze on auscultation, this despite treatment with 3 nebs. Chest x-ray was reviewed and interpreted by radiology: Basilar lung findings which are nonspecific and can be seen in infection, inflammation, edema. Social determinants of health impacting care today: Patient notes he does not have nebs at home and does not have money to pay for nebs. Given persistent symptoms and lung findings despite treatment here in the emergency department, and concern for pneumonia, patient will require hospitalization for further monitoring and treatment. I called and spoke with Dr. Oliva, on-call hospitalist, discussed ED presentation course, he will admit the patient. Lab Data Lab results reviewed: Yes I reviewed the patient's lab results. Labs: Laboratory Tests Range/Units 05/24/24 05/24/24 05/24/24 06:45 07:05 07:50 WBC (4.4-10.8) 10^3/uL 2.86 L RBC (4.36-5.78) 10^6/uL 4.07 L Hgb (13.5-17.5) g/dL 13.2 L Hct (40.0-50.0) % 37.3 L MCV (80-95) fL 92 MCH (27.0-33.0) pg 32.4 MCHC (32.0-36.0) % 35.4 RDW (11.8-14.1) % 13.8 Plt Count (130-400) 10^3/uL 118 L MPV (8.0-11.0) fL 11.3 H Immature Gran % % 0.0 Neutrophils % % 55.0 Band Neutrophils % % 1 Lymphocytes % % 28.0 Atypical Lymphs % % 6 Monocytes % % 8.0 Eosinophils % % 1.0 Basophils % % 1.0 Nucleated RBC % (0.0-0.3) % 0.0 Absolute Neutrophils (1.2-6.7) 10^3/uL 1.60 Absolute Lymphocytes (1.2-3.4) 10^3/uL 0.97 L Absolute Monocytes (0.1-0.8) 10^3/uL 0.23 Absolute Eosinophils (0.0-0.7) 10^3/uL 0.03 Absolute Basophils (0.0-0.2) 10^3/uL 0.03 RBC Morphology Normal PT (9.1-11.1) sec 10.3 INR (0.9-1.1) 1.0 APTT (20.6-30.2) sec 26.1 D-Dimer (<500) ng/mlFEU 235 Sodium (136-145) mmol/L 137 Potassium (3.5-5.1) mmol/L 3.7 Chloride (98-107) mmol/L 99 Carbon Dioxide (21.0-32.0) mmol/L 34.3 H Anion Gap (3-11) mmol/L 3.7 BUN (7-18) mg/dL 6 L Creatinine (0.70-1.30) mg/dL 0.8 Est GFR (CKD-EPI 2020) (mL/min/1.73m2) 107.15 Glucose (74-106) mg/dL 144 H Calcium (8.5-10.1) mg/dL 9.2 Magnesium (1.8-2.4) mg/dL 1.8 Total Bilirubin (0.2-1.0) mg/dL 0.70 AST (15-37) U/L 79 H ALT (16-63) U/L 704 H Alkaline Phosphatase (46-116) U/L 59 Troponin I (<or=76) ng/L 6 NT-Pro-B Natriuret Pep (<300) pg/mL 72 Total Protein (6.4-8.2) g/dL 7.2 Albumin (3.4-5.0) g/dL 3.9 COVID-19 Source Nasopharynx SARS-CoV-2 (PCR) (Negative) Negative Influenza Type A (PCR) (Negative) Negative Influenza Type B (PCR) (Negative) Negative RSV (PCR) (Negative) Negative Quality:SDOH Health Related Social Needs: Health related social needs material hardship(utilities) (Z59.12), problems related to housing/economic circumstances (Z59.89), problems with daily activities (Z73.9) Discharge Plan Disposition Patient Disposition: Admit to [facility] Condition: Serious Discharge Details Chief Complaint: RespSymp Clinical Impression: Shortness of breath, Pneumonia, Acute exacerbation of chronic obstructive pulmonary disease, Transaminitis Primary Care Provider: Alfredito Vargas ED Provider: Kan Andrade Home Meds and New Rx's Prescriptions: No Action lorazepam 1 mg tablet 1 mg PO BID MDD 2 pills PRN (Reason: anxiety) Qty: 60 0RF Rx Instructions: Palliative care patient acetaminophen 500 mg capsule 500 mg PO Q6H PRN buspirone 15 mg tablet 15 mg PO TID calcium carbonate [Antacid (calcium carbonate)] 200 mg calcium (500 mg) tablet,chewable 200 mg PO TID PRN ibuprofen 600 mg tablet 600 mg PO BID PRN sennosides-docusate sodium [Senna with Docusate Sodium] 8.6-50 mg tablet 1 tab-cap PO BID Anoro Ellipta 62.5-25 mcg/actuation blister with device 1 inh inhalation DAILY albuterol sulfate 8.5 GM HFA aerosol inhaler 2 puff Inhalation QID PRN PRN pregabalin 200 mg capsule 200 mg PO TID Patient Comments: TK 1 C PO TID fluticasone propionate [Flovent HFA] 220 mcg/actuation HFA aerosol inhaler 440 mcg INHALATION BID Patient Comments: INL 2 PFS PO BID Rx Instructions: filled 90 day supply in december Combivent Respimat 20-100 mcg/actuation mist 1 puff INHALATION QID PRN PRN Patient Comments: INHALE 1 PUFF BY MOUTH FOUR TIMES DAILY testosterone cypionate 200 mg/mL oil 100 mg IM Q14D Patient Comments: INJECT 1/2 ML INTRAMUSCULARLY ONCE EVERY TWO WEEKS Rx Instructions: INJECT 1/2 mL IM ONCE EVERY TWO WEEKS duloxetine [Cymbalta] 30 mg Capsule,Delayed Release(Dr/Ec) 60 mg PO DAILY methadone 10 mg/5 mL Solution 155 mg PO DAILY Rx Instructions: Confirmed on 02/29/24 with [facility] sustained remission - has not used in years - no take home med lisinopril 40 mg tablet 40 mg PO DAILY Patient Comments: TAKE ONE TABLET BY MOUTH EVERY DAY quetiapine 400 mg tablet 400 mg PO HS Patient Comments: TAKE ONE TABLET BY MOUTH AT BEDTIME metoprolol tartrate 25 mg Tablet 25 mg PO BID Qty: 90 0RF
[2024-05-24 09:21] LABS: Troponin I 5 ng/L (<or=76)
[2024-05-24 10:19] LABS: Bilirubin Negative (Negative); Blood Negative (Negative); Clarity Clear (Clear); Glucose Negative (Negative); Ketones Trace mg/dL (Negative); Leukocyte Esterase Negative (Negative); Nitrite Negative (Negative); Specific Gravity >= 1.030 (1.005-1.025)
[2024-05-24 11:26] LABS: Troponin I < 4 ng/L (<or=76)
--- NOTE | 2024-05-24 11:37 | W.PC.ACHO ---
Registration Status: Primary Language: Preferred Language: ED Information & Data Chief Complaint RespSymp 05/24/24 06:35 Triage Note pt comes to the ED c/o SOB 05/24/24 05:58 and back pain with anxiety. The pt is on 3L NC continuously. States he was DC yesterday from [facility], + FLU, stated he did not take any neb tx as prescribed. Pt asking for Ativan. pt continues to ask for medicatio and to breathe Medical / Surgical History (Last Reviewed 05/10/24 @ 08:41 by Pearl Kamara NP) Palliative care patient Compression fracture of T8 vertebra Constipation due to pain medication Hypercholesterolemia Hx of substance abuse Chronic hepatitis Opiate withdrawal Hypoxia Pulmonary nodule Chronic respiratory failure Palliative care patient Alcohol withdrawal seizure COPD (chronic obstructive pulmonary disease) Narcotic abuse Asthma (Last Reviewed 05/10/24 @ 08:41 by Pearl Kamara NP) Status post below-knee amputation S/P ORIF (open reduction internal fixation) fracture Hx of BKA History of tonsillectomy History of hand surgery Most Recent Vital Signs Temperature 36.7 C 05/24/24 05:58 Temperature Source Tympanic 05/24/24 05:58 Pulse 75 05/24/24 10:35 Pulse 99 H 05/24/24 07:20 Respiratory Rate 14 05/24/24 07:20 Respiratory Effort Short of Breath 05/24/24 06:25 Respiratory Depth Deep 05/24/24 06:25 Blood Pressure 170/92 H 05/24/24 10:35 Blood Pressure Mean 116 05/24/24 10:35 Blood Pressure Position Sitting 05/24/24 05:58 Pulse Oximetry 96 05/24/24 10:35 Oxygen Delivery Method Nasal Cannula 05/24/24 05:58 Oxygen Flow Rate 3 05/24/24 05:58 Pain Level 10 05/24/24 08:50 Allergies Penicillins Allergy (Severe, Unverified 05/24/24 06:35) Anaphylaxsis prednisone Adverse Reaction (Verified 05/24/24 06:35) Anxiety Precautions Isolation Droplet precaution 05/24/24 06:25 Active Medications Generic Name Dose Route Start Last Admin Trade Name Freq PRN Reason Stop Dose Admin Lidocaine 1 patch 05/24/24 08:45 05/24/24 08:50 Lidocaine 5% Patch TP 1 patch Q24H ADOLFO Administration IV IV Catheter Type [Right Peripheral IV Forearm] IV Catheter Type [Right Upper Peripheral IV arm] IV Catheter Gauge [Right 20 Forearm] IV Catheter Gauge [Right Upper 20 arm] Diagnostics 05/24/24 05/24/24 05/24/24 Range/Units 10:12 09:52 09:30 WBC (4.4-10.8) 10^3/uL RBC (4.36-5.78) 10^6/uL Hgb (13.5-17.5) g/dL Hct (40.0-50.0) % MCV (80-95) fL MCH (27.0-33.0) pg MCHC (32.0-36.0) % RDW (11.8-14.1) % Plt Count (130-400) 10^3/uL MPV (8.0-11.0) fL Immature Gran % % Neutrophils % % Band Neutrophils % % Lymphocytes % % Atypical Lymphs % % Monocytes % % Eosinophils % % Basophils % % Nucleated RBC % (0.0-0.3) % Absolute Neutrophils (1.2-6.7) 10^3/uL Absolute Lymphocytes (1.2-3.4) 10^3/uL Absolute Monocytes (0.1-0.8) 10^3/uL Absolute Eosinophils (0.0-0.7) 10^3/uL Absolute Basophils (0.0-0.2) 10^3/uL RBC Morphology PT (9.1-11.1) sec INR (0.9-1.1) APTT (20.6-30.2) sec D-Dimer (<500) ng/mlFEU Sodium (136-145) mmol/L Potassium (3.5-5.1) mmol/L Chloride (98-107) mmol/L Carbon Dioxide (21.0-32.0) mmol/L Anion Gap (3-11) mmol/L BUN (7-18) mg/dL Creatinine (0.70-1.30) mg/dL Est GFR (CKD-EPI 2020) (mL/min/1.73m2) Glucose (74-106) mg/dL Calcium (8.5-10.1) mg/dL Magnesium (1.8-2.4) mg/dL Total Bilirubin (0.2-1.0) mg/dL AST (15-37) U/L ALT (16-63) U/L Alkaline Phosphatase (46-116) U/L Troponin I Pending (<or=76) ng/L NT-Pro-B Natriuret Pep (<300) pg/mL Total Protein (6.4-8.2) g/dL Albumin (3.4-5.0) g/dL Urine Color Yellow (Yellow) Urine Clarity Clear (Clear) Urine pH 6.0 (5-8) Ur Specific [place] >= 1.030 H (1.005-1.025) Urine Protein Trace (Neg-Trace) mg/dL Urine Ketones Trace H (Negative) mg/dL Urine Blood Negative (Negative) Urine Nitrite Negative (Negative) Urine Bilirubin Negative (Negative) Urine Urobilinogen 1.0 H (Up to 0.2) mg/dL Ur Leukocyte Esterase Negative (Negative) Urine Glucose Negative (Negative) mg/dL COVID-19 Source Cancelled SARS-CoV-2 (PCR) Cancelled (Negative) Influenza Type A (PCR) Cancelled (Negative) Influenza Type B (PCR) Cancelled (Negative) RSV (PCR) Cancelled (Negative) 05/24/24 05/24/24 05/24/24 Range/Units 08:58 07:50 07:05 WBC 2.86 L (4.4-10.8) 10^3/uL RBC 4.07 L (4.36-5.78) 10^6/uL Hgb 13.2 L (13.5-17.5) g/dL Hct 37.3 L (40.0-50.0) % MCV 92 (80-95) fL MCH 32.4 (27.0-33.0) pg MCHC 35.4 (32.0-36.0) % RDW 13.8 (11.8-14.1) % Plt Count 118 L (130-400) 10^3/uL MPV 11.3 H (8.0-11.0) fL Immature Gran % 0.0 % Neutrophils % 55.0 % Band Neutrophils % 1 % Lymphocytes % 28.0 % Atypical Lymphs % 6 % Monocytes % 8.0 % Eosinophils % 1.0 % Basophils % 1.0 % Nucleated RBC % 0.0 (0.0-0.3) % Absolute Neutrophils 1.60 (1.2-6.7) 10^3/uL Absolute Lymphocytes 0.97 L (1.2-3.4) 10^3/uL Absolute Monocytes 0.23 (0.1-0.8) 10^3/uL Absolute Eosinophils 0.03 (0.0-0.7) 10^3/uL Absolute Basophils 0.03 (0.0-0.2) 10^3/uL RBC Morphology Normal PT 10.3 (9.1-11.1) sec INR 1.0 (0.9-1.1) APTT 26.1 (20.6-30.2) sec D-Dimer 235 (<500) ng/mlFEU Sodium 137 (136-145) mmol/L Potassium 3.7 (3.5-5.1) mmol/L Chloride 99 (98-107) mmol/L Carbon Dioxide 34.3 H (21.0-32.0) mmol/L Anion Gap 3.7 (3-11) mmol/L BUN 6 L (7-18) mg/dL Creatinine 0.8 (0.70-1.30) mg/dL Est GFR (CKD-EPI 2020) 107.15 (mL/min/1.73m2) Glucose 144 H (74-106) mg/dL Calcium 9.2 (8.5-10.1) mg/dL Magnesium 1.8 (1.8-2.4) mg/dL Total Bilirubin 0.70 (0.2-1.0) mg/dL AST 79 H (15-37) U/L ALT 704 H (16-63) U/L Alkaline Phosphatase 59 (46-116) U/L Troponin I 5 6 (<or=76) ng/L NT-Pro-B Natriuret Pep 72 (<300) pg/mL Total Protein 7.2 (6.4-8.2) g/dL Albumin 3.9 (3.4-5.0) g/dL Urine Color (Yellow) Urine Clarity (Clear) Urine pH (5-8) Ur Specific [place] (1.005-1.025) Urine Protein (Neg-Trace) mg/dL Urine Ketones (Negative) mg/dL Urine Blood (Negative) Urine Nitrite (Negative) Urine Bilirubin (Negative) Urine Urobilinogen (Up to 0.2) mg/dL Ur Leukocyte Esterase (Negative) Urine Glucose (Negative) mg/dL COVID-19 Source SARS-CoV-2 (PCR) (Negative) Influenza Type A (PCR) (Negative) Influenza Type B (PCR) (Negative) RSV (PCR) (Negative) 05/24/24 Range/Units 06:45 WBC (4.4-10.8) 10^3/uL RBC (4.36-5.78) 10^6/uL Hgb (13.5-17.5) g/dL Hct (40.0-50.0) % MCV (80-95) fL MCH (27.0-33.0) pg MCHC (32.0-36.0) % RDW (11.8-14.1) % Plt Count (130-400) 10^3/uL MPV (8.0-11.0) fL Immature Gran % % Neutrophils % % Band Neutrophils % % Lymphocytes % % Atypical Lymphs % % Monocytes % % Eosinophils % % Basophils % % Nucleated RBC % (0.0-0.3) % Absolute Neutrophils (1.2-6.7) 10^3/uL Absolute Lymphocytes (1.2-3.4) 10^3/uL Absolute Monocytes (0.1-0.8) 10^3/uL Absolute Eosinophils (0.0-0.7) 10^3/uL Absolute Basophils (0.0-0.2) 10^3/uL RBC Morphology PT (9.1-11.1) sec INR (0.9-1.1) APTT (20.6-30.2) sec D-Dimer (<500) ng/mlFEU Sodium (136-145) mmol/L Potassium (3.5-5.1) mmol/L Chloride (98-107) mmol/L Carbon Dioxide (21.0-32.0) mmol/L Anion Gap (3-11) mmol/L BUN (7-18) mg/dL Creatinine (0.70-1.30) mg/dL Est GFR (CKD-EPI 2020) (mL/min/1.73m2) Glucose (74-106) mg/dL Calcium (8.5-10.1) mg/dL Magnesium (1.8-2.4) mg/dL Total Bilirubin (0.2-1.0) mg/dL AST (15-37) U/L ALT (16-63) U/L Alkaline Phosphatase (46-116) U/L Troponin I (<or=76) ng/L NT-Pro-B Natriuret Pep (<300) pg/mL Total Protein (6.4-8.2) g/dL Albumin (3.4-5.0) g/dL Urine Color (Yellow) Urine Clarity (Clear) Urine pH (5-8) Ur Specific [place] (1.005-1.025) Urine Protein (Neg-Trace) mg/dL Urine Ketones (Negative) mg/dL Urine Blood (Negative) Urine Nitrite (Negative) Urine Bilirubin (Negative) Urine Urobilinogen (Up to 0.2) mg/dL Ur Leukocyte Esterase (Negative) Urine Glucose (Negative) mg/dL COVID-19 Source Nasopharynx SARS-CoV-2 (PCR) Negative (Negative) Influenza Type A (PCR) Negative (Negative) Influenza Type B (PCR) Negative (Negative) RSV (PCR) Negative (Negative) 05/24/24 10:25 Blood Culture - Pending Blood 05/24/24 09:11 Blood Culture - Pending Blood Intake and Output - 24 Hour Total 05/24/24 05:52 thru 05/24/24 10:09 Output Total 325 Balance -325 Weight 81.647 kg Output: Urine 325 Falls Risk Assessment History of Falls No History 05/24/24 06:25 Contributing Factors No Factors 05/24/24 06:25 Ambulatory Aids Independent 05/24/24 06:25 Tubes/Lines None 05/24/24 06:25 Gait Evaluation No gait disturbance 05/24/24 06:25 Cognition No cognitive impairment 05/24/24 06:25 Fall Total Score 0 05/24/24 06:25 Level of Risk Standard/Low Risk 05/24/24 06:25 v v v v v v v v v Sending and/or Receiving Nurses: Please use comment section below to note any information pertinent to the patient hand-off not included above. Information / Comments: Report received from:Alix at 1047
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
[2024-05-24] MEDS: Enoxaparin 40 MG/0.4 ML SYR SC (11:49)
[2024-05-24] MEDS: Nicotine 14 MG/24 HR PATCH TD (11:49)
[2024-05-24 12:17] LABS: ETHANOL BLOOD < 3.0 mg/dL (<10)
--- NOTE | 2024-05-24 12:26 | RESPIRATORY ---
RT Initial Evalutation/Assessment Start: 05/24/24 11:18 Freq: .q shift and prn Status: Active Protocol: Document 05/24/24 12:21 MF (Rec: 05/24/24 12:26 MF [id number]) RT Assessment Pulmonary History Pulmonary History Asthma,COPD,Other Smoking History Smoking/Tobacco Use Status Current every day Tobacco Type cigarettes Packs per Day 1 Years smoked 40 Smoking packs per day 1 OXYGEN HISTORY: Supplemental O2 At Rest 3 With Exertion 3 BIPAP Can you home machine No Trilogy/AVAPS Can use home machine No DME/Compliance DME [facility] Respiratory Breath Sounds Breath Sounds Faint wheezing or rhonci, decreased sounds throughout Pulse Rate <100 Respiratory Rate 18-25 Shortness of Breath At rest Respiratory Therapy Score Total 5
[2024-05-24] MEDS: amLODIPine 5 MG TAB PO (12:36)
[2024-05-24 13:35] LABS: *AMPHETAMINES SCREEN URINE Negative (Negative); *BARBITURATES SCREEN URINE Positive (Negative); *BENZODIAZEPINES SCREEN URINE Negative (Negative); Cannabinoids THC Negative (Negative); Cocaine Screen,Urine Negative (Negative); METHADONE URINE SCREEN Positive (Negative); OPIATES URINE SCREEN Positive (Negative)
[2024-05-24 13:43] LABS: Tricyclic Antidepressants Positive (Negative)
[2024-05-24] MEDS: busPIRone 15 MG TAB PO (14:05)
[2024-05-24] MEDS: Pantoprazole 40 MG VIAL IVP (14:05)
[2024-05-24] MEDS: Lactobacillus Acidophilus CAP 1 CAP PO ×2 (14:06→20:13)
[2024-05-24] MEDS: Mometasone 220 MCG 14 DOSE INHALER 2 PUFF IH ×2 (14:40→19:59)
[2024-05-24] MEDS: Pregabalin 100 MG CAP 200 MG PO ×2 (16:52→20:13)
[2024-05-24] MEDS: Ketorolac 15 MG/ML VIAL IVP (20:04)
[2024-05-24] MEDS: Normal Saline Flush 10 ML SYR IVP (20:04)
[2024-05-24] MEDS: busPIRone 15 MG TAB 7.5 MG PO (20:11)
[2024-05-24] MEDS: Melatonin 3 MG TAB 9 MG PO (20:12)
[2024-05-24] MEDS: QUEtiapine 100 MG TAB 200 MG PO (20:13)
[2024-05-24] MEDS: Acetaminophen 325 MG TAB 650 MG PO (20:13)
--- NOTE | 2024-05-24 23:00 | RT.EKG_ITS ---
APPROVED REPORT Exam: Resting ECG Reason for Exam: QT prolongation Patient Location: I HR:78 bpm ECG Measurements Heart Rate 78 AXIS HI 116 P 24 QRSd 97 QRS 74 QT 374 T 58 QTc 427 Conclusion Sinus rhythm...normal P axis, V-rate 60- 99 ST elev, probable normal early repol pattern...ST elevation, age<55 Normal Electrocardiogram
[2024-05-24] MEDS: Lidocaine Patch Removal 2 EACH TP (23:08)
[2024-05-24] MEDS: traZODone 50 MG TAB PO (23:13)
[2024-05-25] VITALS (11 sets, daily range): BP systolic 147–179; BP diastolic 81–111; PULSE 62–79; RESP 2–20; TEMP 35.8–36.9; O2SAT 90–98
[2024-05-25] MEDS: LORazepam 1 MG TAB PO ×2 (01:52→14:16)
[2024-05-25] MEDS: Ketorolac 15 MG/ML VIAL IVP ×3 (02:06→11:44)
[2024-05-25] MEDS: Albuterol/Ipratropium 3 ML UPD VIAL UPD ×3 (04:54→22:58)
[2024-05-25] MEDS: oxyCODONE 5 MG TAB PO (05:12)
[2024-05-25] MEDS: busPIRone 15 MG TAB 7.5 MG PO ×3 (06:28→20:16)
[2024-05-25 06:59] LABS: Abs Immature Grans 0.01 10^3/uL (0.0-0.06); HCT 39.9 % (40.0-50.0); HGB 13.8 g/dL (13.5-17.5); MCH 31.9 pg (27.0-33.0); MCHC 34.6 % (32.0-36.0); MCV 92 fL (80-95); MPV 10.8 fL (8.0-11.0); Platelet Count 146 10^3/uL (130-400); RBC 4.32 10^6/uL (4.36-5.78); RDW 13.5 % (11.8-14.1); RDW-SD 46.3 fL; WBC 4.29 10^3/uL (4.4-10.8)
[2024-05-25 07:10] LABS: Absolute Eosinophil Count 0.09 10^3/uL (0.0-0.7); Absolute Lymphocyte Count 2.57 10^3/uL (1.2-3.4); Absolute Monocyte Count 0.43 10^3/uL (0.1-0.8); Atypical Lymphocytes % 4 %; Diff Comment Manual Differential; RBC Morphology Normal
[2024-05-25 07:20] LABS: ALT 509 U/L (16-63); AST 51 U/L (15-37); Albumin 3.6 g/dL (3.4-5.0); Alkaline Phosphatase 58 U/L (46-116); Anion Gap 6.3 mmol/L (3-11); BUN 11 mg/dL (7-18); Bilirubin, Total 0.45 mg/dL (0.2-1.0); CO2 30.7 mmol/L (21.0-32.0); CREATININE 0.9 mg/dL (0.70-1.30); Calcium 9.1 mg/dL (8.5-10.1); Chloride 100 mmol/L (98-107); Glucose 126 mg/dL (74-106); Potassium 3.8 mmol/L (3.5-5.1); Sodium 137 mmol/L (136-145); Total Protein 7.2 g/dL (6.4-8.2)
[2024-05-25] MEDS: Pregabalin 100 MG CAP 200 MG PO ×3 (07:30→20:17)
[2024-05-25 07:34] LABS: Procalcitonin < 0.10 ng/mL
[2024-05-25] MEDS: Lactobacillus Acidophilus CAP 1 CAP PO ×3 (08:19→20:00)
[2024-05-25] MEDS: DULoxetine 30 MG CAP 60 MG PO (08:19)
[2024-05-25] MEDS: Lisinopril 20 MG TAB 40 MG PO (08:19)
[2024-05-25] MEDS: Pantoprazole 40 MG VIAL IVP (08:20)
[2024-05-25] MEDS: Metoprolol 25 MG TAB PO ×2 (08:20→20:16)
[2024-05-25] MEDS: Normal Saline Flush 10 ML SYR IVP ×2 (08:20→20:18)
[2024-05-25] MEDS: predniSONE 20 MG TAB 40 MG PO (08:20)
[2024-05-25] MEDS: Nicotine 14 MG/24 HR PATCH TD (08:21)
[2024-05-25] MEDS: Methadone Liquid 10 MG/ML 155 MG PO (08:22)
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
--- NOTE | 2024-05-25 10:16 | W.PM.PROGNOT ---
Date of Service Date of service: 05/25/24 Time of Service: 10:16 Assessment and Plan Assessment and plan (1) Acute exacerbation of chronic obstructive pulmonary disease: Status: Ruled-out Assessment and plan: He is oxygenating well and below baseline home oxygen requirements ambulating and maintaining sats on room air with no evidence of acute COPD exacerbation taper steroids (2) Pneumonia: Status: Resolved Assessment and plan: No evidence of untreated pneumonia with x-ray findings likely consistent with recent hospitalization with no He has been afebrile, no leukocytosis with negative procalcitonin no antibiotics indicated (3) Shortness of breath: Status: Acute Assessment and plan: Likely at baseline (4) Transaminitis: Status: Acute Assessment and plan: Normal total bili with AST and ALT trending downward Suspect due to alcohol abuse (5) Alcohol use disorder: Status: Acute Assessment and plan: No evidence of withdrawal ethyl level less than 3 on admission and previously was hospitalized CIWA assessment every 4 hours (6) Nicotine dependence: Status: Acute Assessment and plan: Reporting resuming smoking status post discharge for COPD exacerbation from [facility] on 05/23/2024 On NRT (7) Anxiety: Status: Chronic Assessment and plan: continue home meds (8) Chronic back pain: Status: Acute Assessment and plan: Lidocaine patch PRN ketorolac Resume home ibuprofen on d/c (9) On deep vein thrombosis (DVT) prophylaxis: Status: Acute Assessment and plan: On low molecular weight heparin (10) Discharge planning issues: Status: Acute Assessment and plan: Patient not meeting criteria for acute hospitalization oxygenating well on room air, hemodynamically stable with no evidence of COPD exacerbation or untreated pneumonia. formally appealed discharge Physical therapy consultation cleared for independent ambulation Discussed with Dr. Galvan Subjective Subjective Patient reports: no new complaints, tolerating liquids well, tolerating a regular diet, shortness of breath and afebrile Interval history since last seen: Patient still reporting shortness of breath but with no oxygen requirements. he has been up and ambulating independently. Physical therapy has evaluated him and he is cleared for safe independent ambulation. He has remained afebrile and hemodynamically stable. Exam Narrative Exam Narrative: GEN: awake, alert, oriented 3. older appearing that stated age, sunny complexion. chronically ill appearing, no acute distress HEAD: Normocephalic, atraumatic ENT: Mucous membranes dry, oropharynx no exudate, EYES: PERRL, EOMI NECK: supple, no JVD RESP: no respiratory distress, resp even and unlabored diminished throughout, faint exp wheeze scattered bilaterally CARDIOVASCULAR: RRR ABDOMEN: Soft, nontender. EXT: Full ROM, right below the knee amputation, trace left edema Neuro: awake and alert, grossly normal neurologic exam Psych: Speech fluent, thoughts congruent, flat affect Objective Last Vital Signs Temp 36.6 C 05/25/24 07:48 Pulse 79 05/25/24 07:48 Resp 15 05/25/24 07:48 BP 179/102 H 05/25/24 07:48 Pulse Ox 98 05/25/24 07:48 Laboratory Results - last 24 hr 05/24/24 05/24/24 05/24/24 10:12 10:53 10:55 WBC RBC Hgb Hct MCV MCH MCHC RDW Plt Count MPV Immature Gran % Neutrophils % Lymphocytes % Atypical Lymphs % Monocytes % Eosinophils % Basophils % Nucleated RBC % Absolute Neutrophils Absolute Lymphocytes Absolute Monocytes Absolute Eosinophils Absolute Basophils RBC Morphology Sodium Potassium Chloride Carbon Dioxide Anion Gap BUN Creatinine Est GFR (CKD-EPI 2020) Glucose Calcium Total Bilirubin AST ALT Alkaline Phosphatase Troponin I < 4 Total Protein Albumin Procalcitonin Urine Color Yellow Urine Clarity Clear Urine pH 6.0 Ur Specific [place] >= 1.030 H Urine Protein Trace Urine Ketones Trace H Urine Blood Negative Urine Nitrite Negative Urine Bilirubin Negative Urine Urobilinogen 1.0 H Ur Leukocyte Esterase Negative Urine Glucose Negative Urine Opiates Screen Urine Methadone Screen Ur Barbiturates Screen Ur Tricyclics Screen Ur Amphetamines Screen U Benzodiazepines Scrn Urine Cocaine Screen Ur THC Screen Ethyl Alcohol < 3.0 05/24/24 05/25/24 13:05 06:15 WBC 4.29 L RBC 4.32 L Hgb 13.8 Hct 39.9 L MCV 92 MCH 31.9 MCHC 34.6 RDW 13.5 Plt Count 146 MPV 10.8 Immature Gran % 0.0 Neutrophils % 28.0 Lymphocytes % 56.0 Atypical Lymphs % 4 Monocytes % 10.0 Eosinophils % 2.0 Basophils % 0.0 Nucleated RBC % 0.0 Absolute Neutrophils 1.20 Absolute Lymphocytes 2.57 Absolute Monocytes 0.43 Absolute Eosinophils 0.09 Absolute Basophils 0.00 RBC Morphology Normal Sodium 137 Potassium 3.8 Chloride 100 Carbon Dioxide 30.7 Anion Gap 6.3 BUN 11 Creatinine 0.9 Est GFR (CKD-EPI 2020) 103.40 Glucose 126 H Calcium 9.1 Total Bilirubin 0.45 AST 51 H ALT 509 H Alkaline Phosphatase 58 Troponin I Total Protein 7.2 Albumin 3.6 Procalcitonin < 0.10 Urine Color Urine Clarity Urine pH Ur Specific [place] Urine Protein Urine Ketones Urine Blood Urine Nitrite Urine Bilirubin Urine Urobilinogen Ur Leukocyte Esterase Urine Glucose Urine Opiates Screen Positive A Urine Methadone Screen Positive A Ur Barbiturates Screen Positive A Ur Tricyclics Screen Positive A Ur Amphetamines Screen Negative U Benzodiazepines Scrn Negative Urine Cocaine Screen Negative Ur THC Screen Negative Ethyl Alcohol PAWSS Have you Been Recently Intoxicated or Drunk Within the Last 30 days?: Yes Have you Ever Experienced Previous Episodes of Alcohol Withdrawal?: Yes Have you ever Experienced Withdrawal Seizures?: No Have you ever Experienced Delirium Tremens(DT)s?: No Have you ever undergone Alcohol Rehabilitation Treatment (i.e, inpt ot outpatient treatment programs)?: Yes Have you ever Experienced Blackouts?: Yes Have you ever Combined Alcohol with other Downers within the last 90 days?: Yes Have you ever Combined Alcohol with any other Substance of Abuse during the last 90 days?: Yes Positive Blood Alcohol level on Presentation? [PCS.BAL]: Unable to Obtain Evidence of Increased Autonomic Activity (i.e. HR>120, tremor, sweating, agitation, nausea)?: No Result: 6 Time Spent with Patient Time Spent with Patient: 35-49 minutes Time was spent: preparing to see the patient(eg.review tests), obtaining and/or reviewing [facility], ordering medications,tests, procedures, indepentently interpreting results and counseling the patient
[2024-05-25] MEDS: Enoxaparin 40 MG/0.4 ML SYR SC (11:44)
[2024-05-25] MEDS: Tiotropium/Olodaterol 10 PUFF INHALER 2 PUFF IH (11:44)
[2024-05-25] MEDS: Mometasone 220 MCG 14 DOSE INHALER 2 PUFF IH ×2 (11:45→20:25)
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
[2024-05-25] MEDS: Melatonin 3 MG TAB 9 MG PO (20:15)
[2024-05-25] MEDS: QUEtiapine 100 MG TAB 200 MG PO (20:17)
[2024-05-26] VITALS (9 sets, daily range): BP systolic 120–170; BP diastolic 85–109; PULSE 62–68; RESP 5–20; TEMP 36.7–36.8; O2SAT 91–98
[2024-05-26] MEDS: LORazepam 1 MG TAB PO ×2 (00:15→12:18)
[2024-05-26] MEDS: Ibuprofen 600 MG TAB PO ×3 (00:16→20:26)
[2024-05-26] MEDS: traZODone 50 MG TAB PO (00:16)
[2024-05-26] MEDS: Albuterol/Ipratropium 3 ML UPD VIAL UPD ×2 (05:55→16:44)
[2024-05-26] MEDS: Nicotine 14 MG/24 HR PATCH TD (08:57)
[2024-05-26] MEDS: busPIRone 15 MG TAB 7.5 MG PO ×3 (08:58→20:26)
[2024-05-26] MEDS: Lactobacillus Acidophilus CAP 1 CAP PO ×3 (08:59→20:27)
[2024-05-26] MEDS: Pantoprazole 40 MG VIAL IVP (08:59)
[2024-05-26] MEDS: Lisinopril 20 MG TAB 40 MG PO (09:00)
[2024-05-26] MEDS: predniSONE 20 MG TAB PO (09:01)
[2024-05-26] MEDS: DULoxetine 30 MG CAP 60 MG PO (09:01)
[2024-05-26] MEDS: Pregabalin 100 MG CAP 200 MG PO ×3 (09:01→20:27)
[2024-05-26] MEDS: Metoprolol 25 MG TAB PO ×2 (09:01→20:29)
[2024-05-26] MEDS: Lidocaine 5% Patch 2 PATCH TP (09:01)
[2024-05-26] MEDS: Normal Saline Flush 10 ML SYR IVP (09:02)
[2024-05-26] MEDS: Methadone Liquid 10 MG/ML 155 MG PO (09:02)
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
[2024-05-26] MEDS: Tiotropium/Olodaterol 10 PUFF INHALER 2 PUFF IH (10:02)
[2024-05-26] MEDS: Mometasone 220 MCG 14 DOSE INHALER 2 PUFF IH ×2 (10:02→21:01)
--- NOTE | 2024-05-26 15:27 | CMPROGNOTE_ITS ---
Date of service: 05/26/24 Time of Service: 15:27 Care Management Progress Note Progress Note Text Progress Note Text: CM was notified today by Chidi that the decision to discharge Edd was upheld. He was notified of this fact by Chidi and was informed that his Medicare coverage for this stay would end at noon tomorrow. He will be discharged home tomorrow. Social Determinants of Health Screening Social Determinants of Health last assessed: 05/26/24 Will the Patient Participate in the Screening?: Yes Do you worry about having a steady place to live?: no Problems where you live: no known problems In the past 12 months, have you had to go without electric, gas, oil or water in your home?: no Have you or anyone in your house had to go without enough food to eat?: no Has lack of transportation kept you from medical appointments or from doing things needed for daily living?: no Has anyone in your life made you feel unsafe or unsupported?: no How hard is it for you to pay for the very basics like food, housing, medical care, and heating? Would you say it is:: Not hard at all Do you want help finding or keeping work or a job?: I do not need or want help If for any reason you need help with day-to-day activities such as bathing, preparing meals, shopping, managing finances, etc., do you get the help you need?: I get all the help I need How often do you feel lonely or isolated from those around you?: Never Do you speak a language other than Hungarian at home?: No Does the patient want assistance with any of the above?: No
[2024-05-26] MEDS: QUEtiapine 100 MG TAB 200 MG PO (20:28)
[2024-05-26] MEDS: Melatonin 3 MG TAB 9 MG PO (20:29)
[2024-05-26] MEDS: Lidocaine Patch Removal 2 EACH TP (20:30)
[2024-05-27] MEDS: traZODone 50 MG TAB PO (02:23)
[2024-05-27] MEDS: LORazepam 1 MG TAB PO ×2 (05:41→13:49)
[2024-05-27 05:50] VITALS: PULSE 74; RESP 18; RESP 9; O2SAT 88
[2024-05-27] MEDS: Albuterol/Ipratropium 3 ML UPD VIAL UPD (05:50)
[2024-05-27 05:55] VITALS: PULSE 75; RESP 18; RESP 9; O2SAT 89
[2024-05-27] MEDS: Methadone Liquid 10 MG/ML 155 MG PO (08:37)
[2024-05-27] MEDS: Lactobacillus Acidophilus CAP 1 CAP PO (08:39)
[2024-05-27] MEDS: Pregabalin 100 MG CAP 200 MG PO ×2 (08:39→13:49)
[2024-05-27] MEDS: DULoxetine 30 MG CAP 60 MG PO (08:39)
[2024-05-27] MEDS: Ibuprofen 600 MG TAB PO (08:39)
[2024-05-27] MEDS: Lisinopril 20 MG TAB 40 MG PO (08:39)
[2024-05-27] MEDS: predniSONE 20 MG TAB PO (08:40)
[2024-05-27] MEDS: busPIRone 15 MG TAB 7.5 MG PO (08:40)
[2024-05-27] MEDS: Metoprolol 25 MG TAB PO (08:40)
[2024-05-27] MEDS: Nicotine 14 MG/24 HR PATCH TD (08:41)
[2024-05-27] MEDS: Lidocaine 5% Patch 2 PATCH TP (08:41)
[2024-05-27] MEDS: Tiotropium/Olodaterol 10 PUFF INHALER 2 PUFF IH (09:29)
[2024-05-27 09:30] VITALS: O2SAT 90
[2024-05-27] MEDS: Mometasone 220 MCG 14 DOSE INHALER 2 PUFF IH (09:30)
[2024-05-27] MEDS: Enoxaparin 40 MG/0.4 ML SYR SC (12:40)
[2024-05-27 12:55] VITALS: BP 117/81; PULSE 61; RESP 18; TEMP 36.5; O2SAT 96
--- NOTE | 2024-05-27 15:46 | CMDISCH_ITS ---
Date of service: 05/27/24 Time of Service: 13:30 LACE Index Scoring Tool Questions: Length of Stay (in days): 3 Was the patient admitted via the E.D.?: Yes Comorbidities: Chronic Pulmonary Disease and Liver or Renal Disease E.D. Visits: 4 Answers: Total Score: 15 Risk of Readmission: High Risk Care Management Discharge Plan Reason for Hospitalization: COPD exacerbation Discharge Plan: Garret was discharged home with no new services. He will f/u with his PCP on 06/04 at 11:45 and will continue per his plan of care. He was given a last dose letter by GINGER for his methadone clinic- [facility]. He was transported home via [facility] as coordinated by CM. Patient/Family Education Needs: Review of discharge instructions, activity, limitations and discuss Ask me 3. SDOH Health Related Social Needs: Health related social needs material hardship(utilitie s) (Z59.12), problems related to housing/economic circumstances (Z59.89), problems with daily activities (Z73.9)
== END 2024-05-27 13:52 | disposition home or self-care (01) | DRG 204 ==
LOC: ER 09:11 → MS 11:02
PROVIDERS: Nurse Practitioner Acute Care; Student in an Organized Health Care Education/Training Program; Admitting Provider Family Medicine; Emergency Provider Student in an Organized Health Care Education/Training Program; PCP Family Medicine; Visit Provider Family Medicine
DX: J98.11 Atelectasis (principal); R06.02 Shortness of breath; F11.20 Opioid dependence, uncomplicated; Z59.12 Inadequate housing utilities; J44.9 Chronic obstructive pulmonary disease, unspecified; F41.9 Anxiety disorder, unspecified; R74.01 Elevation of levels of liver transaminase levels; F17.210 Nicotine dependence, cigarettes, uncomplicated; G89.29 Other chronic pain; Z79.899 Other long term (current) drug therapy; Z99.81 Dependence on supplemental oxygen; B18.2 Chronic viral hepatitis C; R23.1 Pallor; G40.909 Epilepsy, unspecified, not intractable, without status epilepticus; Z89.511 Acquired absence of right leg below knee; Z55.0 Illiteracy and low-level literacy; F32.A Depression, unspecified; I10 Essential (primary) hypertension; F10.10 Alcohol abuse, uncomplicated; D75.1 Secondary polycythemia; E78.00 Pure hypercholesterolemia, unspecified; M54.59 Other low back pain; Z66 Do not resuscitate; Z59.89 Other problems related to housing and economic circumstances; Z73.9 Problem related to life management difficulty, unspecified
CPT/HCPCS: 00123; 36415; 80053; 80307; 84145; 87040; 87637; 93005; 94640; 96365; 96375; 97161; 97530; 99285; J1650; 71046; 80320; 81003; 83735; 83880; 84484; 85025; 85379; 85610; 85730; 93010; 94664; 94760; 99223; 99233; 99239; J1885; J1956; J2470; J2919; J3490; J7512; J7620

== ENCOUNTER 2024-08-30 10:14 | Outpatient (CLI) | payer MEDICARE, MEDICAID, SELFPAY ==
--- NOTE | 2024-08-30 10:15 | RT.EKG_ITS ---
APPROVED REPORT Exam: Resting ECG Reason for Exam: high risk medication use Patient Location: O HR:92 bpm ECG Measurements Heart Rate 92 AXIS MT 142 P 81 QRSd 93 QRS 93 QT 353 T 71 QTc 437 Conclusion Sinus rhythm...normal P axis, V-rate 50- 99 Borderline right axis deviation...QRS axis ( 90, 99) Otherwise normal ECG
== END 2024-08-30 10:15 | disposition home or self-care (01) ==
PROVIDERS: PCP Family Medicine; Visit Provider Family Medicine
DX: Z79.899 Other long term (current) drug therapy (principal); R94.31 Abnormal electrocardiogram [ECG] [EKG]
CPT/HCPCS: 93005; 93010

== ENCOUNTER 2024-09-04 09:33 | Outpatient (REF) | payer MEDICARE, MEDICAID, SELFPAY ==
[2024-09-06 11:09] LABS: HCV RNA Qualitative Undetected (Undetected)
[2024-09-18 16:32] LABS: Testosterone, Free 1.59 ng/dL (4.06-15.6); Testosterone, Total 88 ng/dL (240-950)
== END 2024-09-04 09:34 | disposition home or self-care (01) ==
LOC: NCHCN 09:33
PROVIDERS: PCP Family Medicine; Visit Provider Family Medicine
DX: B19.20 Unspecified viral hepatitis C without hepatic coma (principal); E29.1 Testicular hypofunction
CPT/HCPCS: 84402; 84403; 87522

== ENCOUNTER 2025-03-18 07:18 | Inpatient (IN) | payer MEDICARE, MEDICAID, SELFPAY ==
[2025-03-18] VITALS (31 sets, daily range): BP systolic 117–174; BP diastolic 67–99; PULSE 21–93; RESP 9–24; TEMP 36.6–36.9; O2SAT 69–96
--- NOTE | 2025-03-18 07:15 | RT.EKG_ITS ---
APPROVED REPORT Exam: Resting ECG Reason for Exam: SOB Patient Location: E HR:79 bpm ECG Measurements Heart Rate 79 AXIS SC 129 P 28 QRSd 97 QRS 93 QT 386 T 73 QTc 443 Conclusion Sinus rhythm...normal P axis, V-rate 60- 99 No Occlusion RI
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
[2025-03-18] MEDS: Albuterol/Ipratropium 3 ML UPD VIAL (08:00)
[2025-03-18 08:04] LABS: BE (Venous) 12 mmol/L (-2-3); HCO3 (Venous) 38 mmol/L (23-28); O2 Sat (Venous) 81 %; TCO2 (Venous) 34 mmol/L (24-29); pO2 (Venous) 48 mmHg
[2025-03-18 08:05] LABS: Abs Immature Grans 0.02 10^3/uL (0.0-0.06); HCT 43.5 % (40.0-50.0); HGB 14.6 g/dL (13.5-17.5); Immature Grans % 0.2 %; MCH 31.8 pg (27.0-33.0); MCHC 33.6 % (32.0-36.0); MCV 95 fL (80-95); MPV 10.0 fL (8.0-11.0); Platelet Count 203 10^3/uL (130-400); RBC 4.59 10^6/uL (4.36-5.78); RDW 12.4 % (11.8-14.1); RDW-SD 43.5 fL; WBC 8.98 10^3/uL (4.4-10.8)
[2025-03-18 08:07] LABS: pCO2 (Venous) 73 mmHg (41-51)
--- NOTE | 2025-03-18 08:21 | DI.RAD_ITS ---
Exam(s) XR PORTABLE CHEST AP EXAM: XR PORTABLE CHEST AP CLINICAL HISTORY: Shortness of breath TECHNIQUE: 2D digital imaging was performed. COMPARISON: CR,XR XR CHEST 2V PA LATERAL from 05/24/2024 FINDINGS: LUNGS: Underlying scarring and emphysematous changes. Question of superimposed basilar densities. No pleural abnormality seen. HEART: Normal size. AORTA: Normal diameter. BONES: Unremarkable for age. Soft tissues: Unremarkable. IMPRESSION: Question of bibasilar infiltrates. DATA REPOSITORY: RADIATION DOSE DELIVERED:
[2025-03-18 08:32] LABS: Magnesium 2.1 mg/dL (1.6-2.6)
[2025-03-18] MEDS: busPIRone 15 MG TAB PO ×3 (08:32→20:55)
[2025-03-18] MEDS: DULoxetine 30 MG CAP 60 MG PO (08:32)
[2025-03-18] MEDS: Doxycycline Hyclate 100 MG CAP PO (08:33)
[2025-03-18] MEDS: predniSONE 20 MG TAB 60 MG PO (08:33)
[2025-03-18] MEDS: Nicotine 21 MG/24 HR PATCH TD (08:33)
[2025-03-18 08:34] LABS: ALT 12 U/L (10-49); AST 23 U/L (<34); Albumin 4.5 g/dL (3.4-5.0); Alkaline Phosphatase 86 U/L (46-116); Anion Gap 6.3 mmol/L (3-11); BUN 9 mg/dL (9-23); Bilirubin, Total 0.40 mg/dL (0.2-1.2); CO2 36.8 mmol/L (20.0-31.0); Calcium 9.6 mg/dL (8.3-10.6); Chloride 97 mmol/L (98-107); Glucose 103 mg/dL (74-106); Potassium 4.3 mmol/L (3.5-5.1); Sodium 140 mmol/L (136-145); Total Protein 7.6 g/dL (5.7-8.2)
[2025-03-18] MEDS: LORazepam 1 MG TAB PO ×2 (08:36→14:51)
[2025-03-18 08:37] LABS: D-Dimer 559 ng/mlFEU (<500)
[2025-03-18] MEDS: Clindamycin 150 MG CAP 450 MG PO (08:53)
[2025-03-18] MEDS: Pregabalin 100 MG CAP 200 MG PO ×3 (08:53→20:56)
[2025-03-18 09:17] LABS: Troponin I < 3 ng/L (<54)
[2025-03-18 09:23] LABS: Troponin I < 3 ng/L (<54)
[2025-03-18] MEDS: Albuterol/Ipratropium 3 ML UPD VIAL UPD ×2 (09:23→18:25)
[2025-03-18] MEDS: Ketorolac 15 MG/ML VIAL IVP ×2 (10:23→18:31)
[2025-03-18 10:58] LABS: BE (Venous) 10 mmol/L (-2-3); HCO3 (Venous) 36 mmol/L (23-28); O2 Sat (Venous) 87 %; TCO2 (Venous) 33 mmol/L (24-29); pO2 (Venous) 55 mmHg
[2025-03-18 11:08] LABS: pCO2 (Venous) 70 mmHg (41-51)
[2025-03-18] MEDS: levoFLOXacin 750 MG/150 ML BAG 100 MG IVPB (13:57)
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
[2025-03-18 16:56] LABS: BE (Venous) 9 mmol/L (-2-3); HCO3 (Venous) 34 mmol/L (23-28); O2 Sat (Venous) 91 %; TCO2 (Venous) 30 mmol/L (24-29); pCO2 (Venous) 54 mmHg (41-51); pO2 (Venous) 57 mmHg
[2025-03-18] MEDS: Acetaminophen 500 MG TAB PO (17:36)
[2025-03-18] MEDS: Pantoprazole 40 MG TABCR PO (18:31)
[2025-03-18 18:36] LABS: MRSA PCR Negative (Negative)
[2025-03-18] MEDS: QUEtiapine 100 MG TAB 400 MG PO (20:56)
[2025-03-18] MEDS: MORPHine 2 MG/ML SYR IVP (20:58)
[2025-03-19] VITALS (31 sets, daily range): BP systolic 93–167; BP diastolic 63–90; PULSE 69–103; RESP 12–22; TEMP 36.9–37.1; O2SAT 89–96
[2025-03-19] MEDS: Albuterol/Ipratropium 3 ML UPD VIAL UPD ×4 (00:25→17:29)
[2025-03-19] MEDS: MORPHine 2 MG/ML SYR IVP ×5 (01:16→17:47)
[2025-03-19] MEDS: Ketorolac 15 MG/ML VIAL IVP ×3 (01:16→17:48)
[2025-03-19 06:00] LABS: BE (Venous) 10 mmol/L (-2-3); HCO3 (Venous) 35 mmol/L (23-28); O2 Sat (Venous) 89 %; TCO2 (Venous) 31 mmol/L (24-29); pCO2 (Venous) 58 mmHg (41-51); pO2 (Venous) 56 mmHg
[2025-03-19 06:25] LABS: Anion Gap 5.6 mmol/L (3-11); BUN 21 mg/dL (9-23); CO2 34.8 mmol/L (20.0-31.0); Calcium 8.5 mg/dL (8.3-10.6); Chloride 99 mmol/L (98-107); Glucose 99 mg/dL (74-106); Potassium 4.0 mmol/L (3.5-5.1); Sodium 139 mmol/L (136-145)
[2025-03-19 06:37] LABS: COVID-19 PCR Negative (Negative); RSV PCR Negative (Negative)
[2025-03-19] MEDS: LORazepam 1 MG TAB PO ×3 (06:51→14:03)
[2025-03-19 06:59] LABS: HCT 39.4 % (40.0-50.0); HGB 13.6 g/dL (13.5-17.5); MCH 32.5 pg (27.0-33.0); MCHC 34.5 % (32.0-36.0); MCV 94 fL (80-95); MPV 10.5 fL (8.0-11.0); Platelet Count 187 10^3/uL (130-400); RBC 4.19 10^6/uL (4.36-5.78); RDW 12.3 % (11.8-14.1); RDW-SD 42.6 fL; WBC 9.11 10^3/uL (4.4-10.8)
--- NOTE | 2025-03-19 07:15 | RT.EKG_ITS ---
APPROVED REPORT Exam: Resting ECG Reason for Exam: tachycardia, follow up QT Patient Location: I HR:82 bpm ECG Measurements Heart Rate 82 AXIS ND 127 P 20 QRSd 97 QRS 73 QT 371 T 85 QTc 434 Conclusion Sinus rhythm...normal P axis, V-rate 50- 99 Low voltage, extremity leads...all extremity leads <0.5mV Otherwise normal ECG
[2025-03-19] MEDS: Tiotropium/Olodaterol 10 PUFF INHALER 2 PUFF IH (07:54)
[2025-03-19] MEDS: Pantoprazole 40 MG TABCR PO (08:29)
[2025-03-19] MEDS: Lisinopril 10 MG TAB 40 MG PO (08:29)
[2025-03-19] MEDS: DULoxetine 30 MG CAP 60 MG PO (08:29)
[2025-03-19] MEDS: Pregabalin 100 MG CAP 200 MG PO ×3 (08:29→20:15)
[2025-03-19] MEDS: busPIRone 15 MG TAB PO ×3 (08:33→20:15)
[2025-03-19] MEDS: Enoxaparin 40 MG/0.4 ML SYR SC (08:33)
[2025-03-19] MEDS: Methadone Liquid 10 MG/ML 175 MG PO (08:34)
[2025-03-19] MEDS: predniSONE 20 MG TAB 40 MG PO (08:36)
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
[2025-03-19] MEDS: Sennosides/Docusate Sodium TAB 1 TAB PO (09:19)
[2025-03-19] MEDS: Normal Saline Flush 10 ML SYR IVP (09:20)
--- NOTE | 2025-03-19 13:21 | PGE_ITS ---
Date of Service Date of service: 03/19/25 Time of Service: 13:21 Assessment and Plan Assessment and plan (1) Acute respiratory failure with hypoxia and hypercarbia: Status: Acute Assessment and plan: He has chronic retention, but PCO2 on admission above baseline c/w acute on chronic. Back to baseline now after BiPAP 03/18, stable overnight without BiPAP. oxygen requirement down to 1 liter. transfer to floor. Treating COPD and pneumonia as below. (2) Pneumonia: Status: Acute Assessment and plan: With severe PCN allergy treating with levofloxacin for CAP. QTc normal on presentation, normal again on repeat this am. MRSA and Flu/COVID negative. sputum nl bimal for now (3) COPD with acute exacerbation: Status: Acute Assessment and plan: A/w pneumonia. Treating with antibiotics as above, steroid and nebs. (4) Nicotine dependence: Status: Acute Assessment and plan: NRT prn. He has cut back in recent months to a few a day and would like to try to quit. Declines medications forn ow. (5) Opiate dependence: Status: Acute Assessment and plan: Continue chronic methadone. (6) Depression: Status: Chronic Assessment and plan: Continue outpatient therapy with duloxetine, buspirone for anxiety and prn lorazepam. given 1mg extra 03/19 am. (7) Chronic back pain: Status: Acute Assessment and plan: Continue chronic therapy, on SNRI and pregabalin. Steroids should also help. APAP and toradol prn. (8) Palliative care patient: Assessment and plan: Consult palliative for continuity. He is DNR, but per last COLST requests trial of intubation if needed. Subjective Subjective Patient reports: tolerating a regular diet; denies vomiting or fever Interval history since last seen: He slept overnight without BiPAP. Feels about the same, but he is down to 1liter NC. Still coughing, which hurts his back, and he is quite anxious. Exam Narrative Exam Narrative: GEN: Alert and oriented, anxious, but no acute distress at rest. LUNGS: Poor air movement with diffuse wheezing, basilar rales. Able to speak in full sentences with O2 via NC. CV: RRR with no murmurs, gallops, or rubs. ABD: active bowel sounds, soft, not tender, nondistended. No masses. EXT: no cyanosis, clubbing, or edema Objective Last Vital Signs Temp 36.9 C 03/19/25 08:30 Pulse 71 03/19/25 11:15 Resp 17 03/19/25 11:10 BP 142/83 H 03/19/25 09:01 Pulse Ox 93 03/19/25 11:10 Laboratory Results - last 24 hr 03/18/25 03/18/25 03/19/25 16:45 17:16 05:30 WBC RBC Hgb Hct MCV MCH MCHC RDW Plt Count MPV VBG pH 7.41 VBG pCO2 54 H VBG pO2 57 VBG HCO3 34 H VBG Total CO2 30 H VBG O2 Saturation 91 VBG Base Excess 9 H Sodium Potassium Chloride Carbon Dioxide Anion Gap BUN Creatinine Est GFR (CKD-EPI 2020) Glucose Calcium COVID-19 Source Nasopharynx SARS-CoV-2 (PCR) Negative Influenza Type A (PCR) Negative Influenza Type B (PCR) Negative RSV (PCR) Negative MRSA (TEM-PCR) Negative 03/19/25 05:55 WBC 9.11 RBC 4.19 L Hgb 13.6 Hct 39.4 L MCV 94 MCH 32.5 MCHC 34.5 RDW 12.3 Plt Count 187 MPV 10.5 VBG pH 7.39 VBG pCO2 58 H VBG pO2 56 VBG HCO3 35 H VBG Total CO2 31 H VBG O2 Saturation 89 VBG Base Excess 10 H Sodium 139 Potassium 4.0 Chloride 99 Carbon Dioxide 34.8 H Anion Gap 5.6 BUN 21 Creatinine 0.8 Est GFR (CKD-EPI 2020) 109.44 Glucose 99 Calcium 8.5 COVID-19 Source SARS-CoV-2 (PCR) Influenza Type A (PCR) Influenza Type B (PCR) RSV (PCR) MRSA (TEM-PCR) Time Spent with Patient Time Spent with Patient: 35-49 minutes Time was spent: preparing to see the patient(eg.review tests), obtaining and/or reviewing separately otained hiistory, ordering medications,tests, procedures, referring, communicating with other health respiratory care specialist, indepentently interpreting results, counseling the patient and care coordination
[2025-03-19] MEDS: levoFLOXacin 750 MG/150 ML BAG 100 MG IVPB (13:56)
[2025-03-19] MEDS: FLU Vaccine TS 2025-26 PF (36MOS UP) 45 MCG/0.5 ML SYR IM (14:03)
--- NOTE | 2025-03-19 14:15 | PHA.REVIEW2 ---
Pharmacy Admission Review Admission Clinical Review Admission Pharmacy Review: Acute respiratory failure with hypoxia and hypercarbia (Acute) Hypercarbia (Acute) COPD with acute exacerbation (Acute) Chronic back pain (Acute) Nicotine dependence (Acute) Pneumonia (Acute) Opiate dependence (Acute) Penicillins Allergy (Severe, Unverified 03/18/25 07:27) Anaphylaxsis prednisone Adverse Reaction (Verified 03/18/25 07:28) Anxiety Resuscitation Status DNR Height 5 ft 9 in Weight 81.3 kg Pharmacy Admission Review Renal Dosing Renal Dosing: BUN 21 mg/dL (9-23) 03/19/25 05:55 Creatinine 0.8 mg/dL (0.73-1.18) 03/19/25 05:55 Medications needing adjustments: Reviewed (Ijlu=950hv/min; no adjustment needed) Anticoagulation Anticoagulation: Hgb 13.6 g/dL (13.5-17.5) 03/19/25 05:55 Hct 39.4 % (40.0-50.0) L 03/19/25 05:55 Plt Count 187 10^3/uL (130-400) 03/19/25 05:55 Creatinine 0.8 mg/dL (0.73-1.18) 03/19/25 05:55 DVT Prophylaxis: Reviewed Medications: Enoxaparin Opiate Usage Evaluate Pain Scale/Pains Meds: Reviewed Scheduled Bowel Reg ordered if on Opiates?: Yes Relevant Labs Relevant Labs: Sodium 139 mmol/L (136-145) 03/19/25 05:55 Potassium 4.0 mmol/L (3.5-5.1) 03/19/25 05:55 Chloride 99 mmol/L (98-107) 03/19/25 05:55 Magnesium 2.1 mg/dL (1.6-2.6) 03/18/25 07:25 Electrolytes, C-Reactive P, ESR: Reviewed (no interventions at this time) DM Control DM Control: Reviewed (am glucose=99) Cardiac Review Cardiac Review: Troponin I Cancelled 03/18/25 10:44 NT-Pro-B Natriuret Pep 100 pg/mL (<300) 03/18/25 07:25 BP, HR, EF%: Reviewed (dv=435/83; hr=71; no changes) QTc Review QTc: Reviewed List meds needing interventions: qtc on 03/1854=[id number]; monitoring on telemetry with several qt prolonging meds ordered. qtc is normal on 03/19. IV to PO Switch IV Medications: Reviewed Home Meds Home Med List reviewed: Reviewed (home meds ordered ) Current Meds Current Medication Order Review: Reviewed Pharmacy Antibiotic Review Pharmacy Antibiotic Activity: 48 hour review (on levofloxacin for pneumonia (pcn allergy with anaphylaxis reaction). MRSA swab negative. Sputum culture pending. )
--- NOTE | 2025-03-19 15:29 | W.PC.ACHO ---
Registration Status: ADM IN Primary Language: Preferred Language: Turkmen ED Information & Data Chief Complaint SOB 03/18/25 13:51 Chief Complaint SOB 03/18/25 07:21 Triage Note Chronic SOB worsening over 03/18/25 07:21 the last month- believes he might have pneumonia, has had to increase home oxygen to 3L from 2 Medical / Surgical History (Last Reviewed 03/18/25 @ 17:02 by Ugo Galvan) Constipation Pneumonia Palliative care patient Compression fracture of T8 vertebra Constipation due to pain medication Hypercholesterolemia Hx of substance abuse Chronic hepatitis Opiate withdrawal Hypoxia Pulmonary nodule Chronic respiratory failure Palliative care patient Alcohol withdrawal seizure COPD (chronic obstructive pulmonary disease) Narcotic abuse Asthma (Last Reviewed 03/18/25 @ 17:02 by Ugo Galvan) Status post below-knee amputation S/P ORIF (open reduction internal fixation) fracture Hx of BKA History of tonsillectomy History of hand surgery Most Recent Vital Signs Temperature 37.1 C 03/19/25 15:18 Temperature Source Temporal Artery Scan 03/19/25 15:18 Pulse 77 03/19/25 15:18 Pulse 71 03/19/25 11:00 Respiratory Rate 17 03/19/25 15:18 Respiratory Effort Short of Breath 03/18/25 07:30 Respiratory Depth Normal 03/18/25 07:30 Respiratory Pattern Normal 03/18/25 07:30 Blood Pressure 167/87 H 03/19/25 15:18 Blood Pressure Mean 113 03/19/25 15:18 Blood Pressure Position Sitting 03/18/25 07:27 Pulse Oximetry 93 03/19/25 15:18 Oxygen Delivery Method Nasal Cannula 03/19/25 15:18 Oxygen Flow Rate 2 03/19/25 15:18 Fraction of Inspired Oxygen (FIO2) 24 03/18/25 14:32 Pain Level 9 03/19/25 15:18 Comment taken by ED 03/18/25 14:01 Allergies Penicillins Allergy (Severe, Unverified 03/18/25 07:27) Anaphylaxsis prednisone Adverse Reaction (Verified 03/18/25 07:28) Anxiety Reports that he takes this daily Precautions Isolation Standard precaution 03/18/25 13:51 Active Medications Generic Name Dose Route Start Last Admin Trade Name Freq PRN Reason Stop Dose Admin Acetaminophen 500 mg 03/18/25 11:39 03/18/25 17:36 Acetaminophen 500 Mg Tab PO 500 mg Q6H PRN PRN Administration Albuterol/Ipratropium 3 ml 03/18/25 12:00 03/19/25 11:10 Albuterol/Ipratropium 3 Ml Upd Vial UPD 3 ml Q6H ADOLFO Administration Buspirone HCl 15 mg 03/18/25 08:30 03/19/25 13:48 Buspirone 15 Mg Tab PO 15 mg TID ADOLFO Administration Duloxetine HCl 60 mg 03/18/25 08:30 03/19/25 08:29 Duloxetine 30 Mg Cap PO 60 mg DAILY ADOLFO Administration Enoxaparin Sodium 40 mg 03/19/25 08:30 03/19/25 08:33 Enoxaparin 40 Mg/0.4 Ml Syr SC 40 mg DAILY ADOLFO Administration Levofloxacin 750 mg in 150 mls @ 100 mls/hr 03/18/25 12:00 03/19/25 13:56 Levaquin Premixed Bag IVPB 100 mls/hr Q24H ADOLFO Administration Ketorolac Tromethamine 15 mg 03/18/25 18:20 03/19/25 09:19 Ketorolac 15 Mg/Ml Vial IVP 03/21/25 18:19 15 mg Q6H PRN PRN Administration Lisinopril 40 mg 03/19/25 08:30 03/19/25 08:29 Lisinopril 10 Mg Tab PO 40 mg DAILY ADOLFO Administration Lorazepam 1 mg 03/18/25 08:18 03/19/25 14:03 Lorazepam 1 Mg Tab PO 1 mg BID PRN PRN Administration Anxiety Methadone HCl 175 mg 03/19/25 08:30 03/19/25 08:34 Methadone Liquid 10 Mg/Ml PO 175 mg DAILY ADOLFO Administration Morphine Sulfate 2 mg 03/18/25 19:50 03/19/25 13:30 Morphine 2 Mg/Ml Syr IVP 2 mg Q4H PRN PRN Administration Pantoprazole Sodium 40 mg 03/19/25 07:30 03/19/25 08:29 Pantoprazole 40 Mg Tabcr PO 40 mg DAILY@0730 ADOLFO Administration Pt's Own Med ( 1 each 03/19/25 08:30 03/19/25 11:47 Linaclotide [Linzess PO Not Given ] 145 Mcg Capsule) DAILY [facility] Prednisone 40 mg 03/19/25 08:30 03/19/25 08:36 Prednisone 20 Mg Tab PO 40 mg DAILY ADOLFO Administration Pregabalin 200 mg 03/18/25 08:30 03/19/25 13:47 Pregabalin 100 Mg Cap PO 200 mg TID ADOLFO Administration Quetiapine Fumarate 400 mg 03/18/25 20:00 03/18/25 20:56 Quetiapine 100 Mg Tab PO 400 mg HS ADOLFO Administration Senna/Docusate Sodium 1 tab 03/18/25 11:24 03/19/25 09:19 Sennosides/Docusate Sodium Tab PO 1 tab BID PRN PRN Administration Sodium Chloride 0 ml 03/19/25 09:15 03/19/25 09:20 Normal Saline Flush 10 Ml Syr IVP 40 ml PRN PRN Administration Tiotropium [place]/Olodaterol 2 puff 03/19/25 08:30 03/19/25 07:54 Tiotropium/Olodaterol 10 Puff Inhaler IH 2 inh DAILY ADOLFO Administration IV IV Catheter Type [Right Saline Lock Antecubital] IV Catheter Gauge [Right 20 Antecubital] Diagnostics 03/19/25 03/19/25 03/18/25 Range/Units 05:55 05:30 17:16 WBC 9.11 (4.4-10.8) 10^3/uL RBC 4.19 L (4.36-5.78) 10^6/uL Hgb 13.6 (13.5-17.5) g/dL Hct 39.4 L (40.0-50.0) % MCV 94 (80-95) fL MCH 32.5 (27.0-33.0) pg MCHC 34.5 (32.0-36.0) % RDW 12.3 (11.8-14.1) % Plt Count 187 (130-400) 10^3/uL MPV 10.5 (8.0-11.0) fL VBG pH 7.39 (7.31-7.41) VBG pCO2 58 H (41-51) mmHg VBG pO2 56 mmHg VBG HCO3 35 H (23-28) mmol/L VBG Total CO2 31 H (24-29) mmol/L VBG O2 Saturation 89 % VBG Base Excess 10 H (-2-3) mmol/L Sodium 139 (136-145) mmol/L Potassium 4.0 (3.5-5.1) mmol/L Chloride 99 (98-107) mmol/L Carbon Dioxide 34.8 H (20.0-31.0) mmol/L Anion Gap 5.6 (3-11) mmol/L BUN 21 (9-23) mg/dL Creatinine 0.8 (0.73-1.18) mg/dL Est GFR (CKD-EPI 2020) 109.44 (mL/min/1.73m2) Glucose 99 (74-106) mg/dL Calcium 8.5 (8.3-10.6) mg/dL COVID-19 Source Nasopharynx SARS-CoV-2 (PCR) Negative (Negative) Influenza Type A (PCR) Negative (Negative) Influenza Type B (PCR) Negative (Negative) RSV (PCR) Negative (Negative) MRSA (TEM-PCR) Negative (Negative) 03/18/25 Range/Units 16:45 WBC (4.4-10.8) 10^3/uL RBC (4.36-5.78) 10^6/uL Hgb (13.5-17.5) g/dL Hct (40.0-50.0) % MCV (80-95) fL MCH (27.0-33.0) pg MCHC (32.0-36.0) % RDW (11.8-14.1) % Plt Count (130-400) 10^3/uL MPV (8.0-11.0) fL VBG pH 7.41 (7.31-7.41) VBG pCO2 54 H (41-51) mmHg VBG pO2 57 mmHg VBG HCO3 34 H (23-28) mmol/L VBG Total CO2 30 H (24-29) mmol/L VBG O2 Saturation 91 % VBG Base Excess 9 H (-2-3) mmol/L Sodium (136-145) mmol/L Potassium (3.5-5.1) mmol/L Chloride (98-107) mmol/L Carbon Dioxide (20.0-31.0) mmol/L Anion Gap (3-11) mmol/L BUN (9-23) mg/dL Creatinine (0.73-1.18) mg/dL Est GFR (CKD-EPI 2020) (mL/min/1.73m2) Glucose (74-106) mg/dL Calcium (8.3-10.6) mg/dL COVID-19 Source SARS-CoV-2 (PCR) (Negative) Influenza Type A (PCR) (Negative) Influenza Type B (PCR) (Negative) RSV (PCR) (Negative) MRSA (TEM-PCR) (Negative) 03/18/25 18:57 Sputum Culture - Preliminary Sputum - Expectorated Normal Vidya Gram Stain - Final Intake and Output - 24 Hour Total 03/18/25 07:18 thru 03/19/25 15:16 Intake Total 1860 Output Total 2450 Balance -590 Weight 81.3 kg Intake: IV 160 Oral 1700 Output: Urine 2450 Other: Urine Color Light Alix Urine Appearance Clear Urine Odor Normal Stool Size Small Stool Characteristics Formed [place] Risk Assessment History of Falls No History 03/18/25 13:51 Fall Total Score 0 03/18/25 13:51 Level of Risk Standard/Low Risk 03/18/25 13:51 Problems (Last Reviewed 03/18/25 @ 17:02 by Ugo Galvan) Acute respiratory failure with hypoxia and hypercarbia (Acute) Hypercarbia (Acute) COPD with acute exacerbation (Acute) Chronic back pain (Acute) Nicotine dependence (Acute) Depression (Chronic) Pneumonia (Acute) Opiate dependence (Acute) Attestation Statement: By documenting the first initial, last name, and credentials of the reporting nurse below, both parties acknowledge that all relevant information regarding the patient handoff has been communicated, and that all questions have been addressed to ensure continuity and safety of care. Additional Patient Information/Comments: Report Received From: Jacob gave report from ICU, patient stable and educated on safety.
[2025-03-19] MEDS: QUEtiapine 100 MG TAB 400 MG PO (20:15)
[2025-03-20 00:15] VITALS: PULSE 90; RESP 16; O2SAT 91
[2025-03-20] MEDS: Albuterol/Ipratropium 3 ML UPD VIAL UPD ×3 (00:15→11:03)
[2025-03-20] MEDS: MORPHine 2 MG/ML SYR IVP ×2 (02:50→10:15)
[2025-03-20] MEDS: Polyethylene Glycol 3350 17 GM PACKET PO (03:00)
[2025-03-20] MEDS: Ketorolac 15 MG/ML VIAL IVP (03:00)
[2025-03-20 04:00] VITALS: BP 115/75; PULSE 80; RESP 18; TEMP 36.3; O2SAT 90
[2025-03-20] MEDS: Normal Saline Flush 10 ML SYR IVP ×2 (04:49→08:35)
[2025-03-20 05:50] VITALS: PULSE 95; RESP 18; O2SAT 92
[2025-03-20 08:09] VITALS: BP 122/79; PULSE 86; RESP 17; TEMP 36.6; O2SAT 94
[2025-03-20] MEDS: Tiotropium/Olodaterol 10 PUFF INHALER 2 PUFF IH (08:12)
[2025-03-20] MEDS: Methadone Liquid 10 MG/ML 175 MG PO (08:34)
[2025-03-20] MEDS: Lisinopril 10 MG TAB 40 MG PO (08:36)
[2025-03-20] MEDS: Pregabalin 100 MG CAP 200 MG PO (08:36)
[2025-03-20] MEDS: busPIRone 15 MG TAB PO (08:36)
[2025-03-20] MEDS: DULoxetine 30 MG CAP 60 MG PO (08:36)
[2025-03-20] MEDS: predniSONE 20 MG TAB 40 MG PO (08:36)
[2025-03-20] MEDS: LORazepam 1 MG TAB PO (08:36)
[2025-03-20] MEDS: Enoxaparin 40 MG/0.4 ML SYR SC (08:37)
[2025-03-20] MEDS: Pantoprazole 40 MG TABCR PO (08:37)
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
[2025-03-20] MEDS: levoFLOXacin 500 MG, levoFLOXacin 250 MG 750 MG PO (10:23)
[2025-03-20 11:03] VITALS: PULSE 84; RESP 18; O2SAT 94
[2025-03-20 11:46] VITALS: BP 117/85; PULSE 95; RESP 17; TEMP 37; O2SAT 92
--- NOTE | 2025-03-20 16:30 | PDOC.CMDIS ---
Date of service: 03/20/25 Time of Service: 16:30 LACE Index Scoring Tool Questions: Length of Stay (in days): 2 Was the patient admitted via the E.D.?: Yes Comorbidities: Chronic Pulmonary Disease and Liver or Renal Disease E.D. Visits: 1 Answers: Total Score: 11 Risk of Readmission: High Risk Care Management Discharge Plan Reason for Hospitalization: pneumonia Discharge Plan: Edd will be discharged home with no new services. He will follow up with his community providers and plan of care and transport via [facility] coordinated by G[facility]. CM provided Edd with a Last Dose letter to bring to [facility]. Patient/Family Education Needs: Review discharge instructions, limitations, follow up plan and discuss Ask Me Three SDOH Health Related Social Needs: Health related social needs material hardship house/econ circumstance daily activities
== END 2025-03-20 13:16 | disposition home or self-care (01) | DRG 193 ==
LOC: ER 12:27 → ICU 15:34 → MS 03-19 13:48
PROVIDERS: Admitting Provider Family Medicine; Emergency Provider Emergency Medicine; PCP Family Medicine; Responsible Provider Family Medicine; Visit Provider Family Medicine
DX: J18.9 Pneumonia, unspecified organism (principal); J44.0 Chronic obstructive pulmonary disease with (acute) lower respiratory infection; J44.1 Chronic obstructive pulmonary disease with (acute) exacerbation; G89.29 Other chronic pain; F11.20 Opioid dependence, uncomplicated; J96.21 Acute and chronic respiratory failure with hypoxia; J96.22 Acute and chronic respiratory failure with hypercapnia; Z99.81 Dependence on supplemental oxygen; R74.01 Elevation of levels of liver transaminase levels; R23.1 Pallor; G40.909 Epilepsy, unspecified, not intractable, without status epilepticus; Z89.511 Acquired absence of right leg below knee; Z55.0 Illiteracy and low-level literacy; F10.10 Alcohol abuse, uncomplicated; D75.1 Secondary polycythemia; B18.2 Chronic viral hepatitis C; I10 Essential (primary) hypertension; K59.00 Constipation, unspecified; E78.00 Pure hypercholesterolemia, unspecified; F17.210 Nicotine dependence, cigarettes, uncomplicated; Z66 Do not resuscitate
CPT/HCPCS: 00123; 36415; 80048; 80053; 82805; 85027; 87637; 87641; 90656; 93005; 93308; 94640; 96365; 96375; 99291; J1650; 71045; 83735; 83880; 84484; 85025; 85379; 87070; 87205; 93010; 94660; 94664; 94760; 99223; 99232; 99238; J1885; J1956; J2270; J7512; J7620